=== PATIENT | female | born 1945 | race Caucasian/White ===

== ENCOUNTER 2018-02-20 11:10 | Emergency (ER) | payer MEDICARE, BC, SELFPAY ==
[2018-02-20 11:11] VITALS: BP 123/52; PULSE 72; RESP 22; TEMP 36.6; O2SAT 100; BMI 30.4
--- NOTE | 2018-02-20 11:26 | RAD_ITS ---
STUDY: X-RAY - LEFT SHOULDER REASON FOR EXAM: Female, 72 years old. pt. fell down the steps, pain TECHNIQUE: 2 view(s) of the shoulder. COMPARISON: None. FINDINGS: Normal glenohumeral articulation. There is degenerative arthrosis of the acromioclavicular joint without inferior osseous spur formation. Normal acromion. There is an acute fracture of the humeral neck and head. There is 1.9 cm of medial displacement of the shaft relative to the head and 1.0 cm of impaction of the shaft into the head. The soft tissue structures are unremarkable. Normal visualized pulmonary apex. RAD/Shoulder min 2 Views IMPRESSION: There is an acute fracture of the humeral neck and head. Electronically Signed: Rona Bowen MD at 12:20 EDT , Service support ,
[2018-02-20] MEDS: Ondansetron 4 MG/2 ML Vial IV (11:29)
[2018-02-20] MEDS: Morphine 4 MG/ML Syringe IV ×2 (11:30→13:31)
--- NOTE | 2018-02-20 11:30 | ED.DCSUM_ITS ---
- ER Visit Summary Date of Service: 02/20/18 Chief Complaint: Fall History of Present Illness: The patient is a 72 F presenting after fall. Patient states she was wearing high heels and tripped on the carpet. She fell down a half a flight of stairs. She did not hit her head or lose consciousness. She complains of left shoulder and right foot pain. She took a pain pill before arriving but she believes it was . Denies other complaints. Physical Examination: Vitals are stable. Patient is afebrile. Alert no acute distress. HEENT exam is unremarkable. Neck is nontender Lungs are clear and equal bilaterally. Heart is regular rate and rhythm. Abdomen is soft nontender nondistended. Extremities right mid foot tenderness, left anterior shoulder and proximal humerus tenderness, neurovascularly intact distally Skin is warm and dry. No focal neurologic deficit. Remainder of exam is unremarkable. Emergency Department Course and Treatment: Patient is given morphine, Zofran IV. X-ray of the right foot shows there appears to be an acute nondisplaced fracture of the base of the second metatarsal extending into the tarsometatarsal joint. Left shoulder x-ray shows there is an acute fracture of the humeral neck and head. Patient is given a sling and swath. She is given a boot orthosis. Discussed with Dr. Currie. She reviewed her images. She states the patient can weight-bear as tolerated with the boot. She will follow- up in the office. She is given a prescription for Percocet. She is advised return to ED if worsening complaints. Disposition: Discharge home Impression: Right second metatarsal fracture, left proximal humerus fracture, status post mechanical fall This note was generated with [employer] dictation software. It may contain incorrect words, spelling, and punctuation that were not noted in review of the chart prior to signing ED Disposition - Plan for ED Patient: Chief Complaint: Fall Referrals: Jessica Tanner DO [Primary Care Provider] -
--- NOTE | 2018-02-20 11:46 | RAD_ITS ---
STUDY: X-RAY - RIGHT FOOT CLINICAL: Female, 72 years old. pt. fell down the steps, pain TECHNIQUE: 3 view(s) of the foot. COMPARISON: April 18, 2015 FINDINGS: There are plantar and posterior calcaneal spurs. There is degenerative joint disease of the tibiotalar, naviculocuneiform, tarsometatarsal joints. There appears to be an acute nondisplaced fracture of the base of the second metatarsal extending into the tarsometatarsal joint. There is degenerative arthrosis of the metatarsophalangeal joint of the hallux . Normal tibial and fibular sesamoid bones. Normal interphalangeal joint of the great toe. Normal phalanges of the great toe. Normal second through fifth metatarsophalangeal joints. Normal interphalangeal joints and phalanges of the lesser toes. RAD/Foot min 3 Views IMPRESSION: There appears to be an acute nondisplaced fracture of the base of the second metatarsal extending into the tarsometatarsal joint. Electronically Signed: Rona Bowen MD at 12:18 EDT , Service support ,
[2018-02-20 13:36] VITALS: RESP 16
--- NOTE | 2018-02-20 13:58 | ED.DEP ---
ED Disposition - Plan for ED Patient: Chief Complaint: Fall Instructions: ED Mechanical Fall, ED Fx Shoulder, ED Fx Foot Prescriptions: Oxycodone HCl/Acetaminophen [Percocet 5/325] 1 tablet PO Q6H PRN PRN 5 Days #20 tablet PRN Reason: Pain Referrals: Jessica Tanner DO [Primary Care Provider] - Ginny Currie DO [STAFF PHYSICIAN] -
[2018-02-20 14:21] VITALS: BP 119/75; PULSE 72; RESP 16; O2SAT 95
--- NOTE | 2018-02-20 14:22 | ED.RN ---
REVIEWED D/C INSTRUCTIONS, FOLLOW UP CARE, PRESCRIPTION, AND S/S THAT WOULD WARRANT A RETURN TO THE ED WITH PT. PT VERBALIZED AN UNDERSTANDING AND DENIES FURTHER QUESTIONS FOR THIS RN. PT SKIN P/W/D, RESP EVEN AND UNLABORED, PT A&O X 3, NO DISTRESS NOTED. PT ASSISTED OUT OF ED IN WHEELCHAIR.
== END 2018-02-20 14:23 | disposition home or self-care (01) ==
PROVIDERS: Emergency Provider Emergency Medicine; Family Provider Internal Medicine; PCP Internal Medicine
DX: S92.324A Nondisplaced fracture of second metatarsal bone, right foot, initial encounter for closed fracture (principal); S42.202A Unspecified fracture of upper end of left humerus, initial encounter for closed fracture; W10.9XXA Fall (on) (from) unspecified stairs and steps, initial encounter; Y93.9 Activity, unspecified; Y92.9 Unspecified place or not applicable; J44.9 Chronic obstructive pulmonary disease, unspecified; K21.9 Gastro-esophageal reflux disease without esophagitis; E78.00 Pure hypercholesterolemia, unspecified; Z79.899 Other long term (current) drug therapy
CPT/HCPCS: 73030; 73630; 96374; 96375; 96376; 99285; J2405

== ENCOUNTER → 2018-02-24 13:12 | Outpatient (CLI) | payer MEDICARE, BC, SELFPAY ==
--- NOTE | 2018-02-24 13:12 | RAD_ITS ---
STUDY: X-RAY - LEFT SHOULDER REASON FOR EXAM: Fracture. TECHNIQUE: 3 view(s) of the shoulder. COMPARISON: Radiographs 02/20/2018. FINDINGS: Normal glenohumeral articulation. Normal acromioclavicular joint. Normal acromion. There is no significant change of the comminuted proximal humeral fracture with medial displacement of the humeral shaft. The soft tissue structures are unremarkable. Normal visualized pulmonary apex. RAD/Shoulder min 2 Views IMPRESSION: Comminuted proximal humeral fracture. Electronically Signed: Mario Salguero MD at 12:42 EDT Tel , Service support ,
--- NOTE | 2018-02-24 14:11 | RAD_ITS ---
STUDY: X-RAY - LEFT ELBOW REASON FOR EXAM: Female, 72 years old. Fall down stairs 4 days ago. Pain. TECHNIQUE: 3 view(s) of the elbow. COMPARISON: None. FINDINGS: There is generalized osteopenia. Normal visualized humerus, radius and ulna. Normal radiocapitellar and ulnotrochlear articulations. The soft tissue structures are unremarkable. RAD/Elbow min 3 Views IMPRESSION: Osteopenia with no acute abnormality. Electronically Signed: Reddy Branch MD at 12:41 EDT , Service support ,
== END ==
PROVIDERS: Family Provider Internal Medicine; PCP Internal Medicine; Visit Provider Orthopaedic Surgery
DX: S42.202A Unspecified fracture of upper end of left humerus, initial encounter for closed fracture (principal); M25.442 Effusion, left hand
CPT/HCPCS: 73030; 73080

== ENCOUNTER → 2018-03-02 13:27 | Outpatient (CLI) | payer MEDICARE, BC, SELFPAY ==
--- NOTE | 2018-03-02 13:30 | CT_ITS ---
STUDY: CT LEFT UPPER EXTREMITY / HUMERUS REASON FOR EXAM: Female, 72 years old. Fracture RADIATION DOSAGE (If Supplied By Facility): CTDIvol = ( 28.83 ) mGy, DLP = ( 1010.63 ) mGycm TECHNIQUE: High resolution transaxial imaging was performed without the administration of intravenous contrast material. Sagittal, coronal and three-dimensional reconstructions are performed. COMPARISON: X-ray 02/24/2018 FINDINGS: There is a comminuted, impacted fracture of the proximal humerus involving the neck and tuberosities. There is involvement of the articular surface (image 18, 20, 22, 27/132, 59, 61/127 coronal recon). There is mild displacement. There is fluid at the glenohumeral joint and the shoulder is somewhat subluxed inferiorly (image 16/132 axial, 64/127 coronal recon). There is no osseous destruction. The acromioclavicular joint is intact. The periarticular soft tissue structures are intact. CT/Coronals Sag Multi Obl 3-D Rec IMPRESSION: Impacted, comminuted, mildly displaced, intra-articular fracture of the proximal humerus involving the neck and tuberosities Electronically Signed: Kapil Gonzales MD at 21:54 EDT Tel , Service support ,
--- NOTE | 2018-03-02 13:30 | CT_ITS ---
STUDY: CT LEFT UPPER EXTREMITY / HUMERUS REASON FOR EXAM: Female, 72 years old. Fracture RADIATION DOSAGE (If Supplied By Facility): CTDIvol = ( 28.83 ) mGy, DLP = ( 1010.63 ) mGycm TECHNIQUE: High resolution transaxial imaging was performed without the administration of intravenous contrast material. Sagittal, coronal and three-dimensional reconstructions are performed. COMPARISON: X-ray 02/24/2018 FINDINGS: There is a comminuted, impacted fracture of the proximal humerus involving the neck and tuberosities. There is involvement of the articular surface (image 18, 20, 22, 27/132, 59, 61/127 coronal recon). There is mild displacement. There is fluid at the glenohumeral joint and the shoulder is somewhat subluxed inferiorly (image 16/132 axial, 64/127 coronal recon). There is no osseous destruction. The acromioclavicular joint is intact. The periarticular soft tissue structures are intact. CT/Extremity Upper without Contra IMPRESSION: Impacted, comminuted, mildly displaced, intra-articular fracture of the proximal humerus involving the neck and tuberosities Electronically Signed: Kapil Gonzales MD at 21:54 EDT Tel , Service support ,
== END ==
PROVIDERS: Family Provider Internal Medicine; PCP Internal Medicine; Visit Provider Orthopaedic Surgery
DX: S42.292A Other displaced fracture of upper end of left humerus, initial encounter for closed fracture (principal); X58.XXXA Exposure to other specified factors, initial encounter
CPT/HCPCS: 73200; 76377

== ENCOUNTER 2018-03-15 12:26 | Observation (INO) | payer MEDICARE, BC, SELFPAY ==
--- NOTE | 2018-03-04 11:01 | EKG12_ITS ---
Test Reason : PRE-OP Blood Pressure : / mmHG Vent. Rate : 081 BPM Atrial Rate : 081 BPM P-R Int : 142 ms QRS Dur : 082 ms QT Int : 344 ms P-R-T Axes : 068 038 083 degrees QTc Int : 399 ms Normal sinus rhythm Nonspecific ST and T wave abnormality Abnormal ECG Confirmed by JOSHUA BOB ([id number]), script editor REA DIAS ([id number]) on 03/08/2018 4:08:06 PM Referred By: Ginny Currie Confirmed By:JOSHUA BOB
[2018-03-04 11:37] LABS: Hematocrit 34.7 % (37-47); Mean Corp Hgb Conc 31.7 g/gl (32-36); Mean Corpuscular Hgb 28.7 pg (27.0-32.0); Mean Corpuscular Volume 90.6 fL (81-99); Mean Platelet Vol. 9.2 fl (6.2-12.0); Platelet Count 409 K/mm3 (150-450); RBC Distribution Width SD 45.3 fl (35.1-43.9); Red Blood Count 3.83 M/mm3 (4.2-5.4); Scan Indicated on CBC? Y/N NO; White Blood Count 6.8 K/mm3 (4.4-11.0)
[2018-03-09 09:21] VITALS: BP 123/99; PULSE 70; RESP 16; TEMP 36.9; O2SAT 98; BMI 30.2
[2018-03-09] MEDS: oxyCODONE HCl Cr 10 MG Tablet PO (09:32)
[2018-03-09] MEDS: Celecoxib 200 MG Capsule PO (09:32)
[2018-03-15] VITALS (10 sets, daily range): BP systolic 123–165; BP diastolic 62–99; PULSE 71–102; RESP 16–18; TEMP 36.6–36.9; O2SAT 94–98; BMI 30.2
--- NOTE | 2018-03-15 12:21 | RAD_ITS ---
STUDY: X-RAY - LEFT SHOULDER REASON FOR EXAM: Female, 72 years old. Postop. TECHNIQUE: 2 view(s) of the shoulder. COMPARISON: Left shoulder, February 24, 2018. FINDINGS: There is a left total shoulder arthroplasty. The glenoid and humeral components articulate normally with each other. There is no loosening from the underlying bone. There is no acute fracture. Small bony fragments are seen along the posterior aspect of the humeral component. There is degenerative arthrosis of the acromioclavicular joint without inferior osseous spur formation. Normal acromion. Air is seen in the surrounding soft tissues. Normal visualized pulmonary apex. RAD/Shoulder min 2 Views IMPRESSION: Status post left total shoulder arthroplasty. Electronically Signed: Brett Hedrick DO at 16:49 EDT Tel [phone], Service support ,
[2018-03-15] MEDS: oxyCODONE HCl Cr 10 MG Tablet PO (12:22)
[2018-03-15] MEDS: Cefazolin 2 GM in 0.9% Normal Saline 100 ML IV (13:20)
--- NOTE | 2018-03-15 13:45 | SHO_PTH ---
PATIENT: ELSIE BRIGGS LOC: [facility] U#:[id number] AGE/SX: 72/F ROOM: IA321 RE03/15/[address]: Dr. Ginny Currie DO : 1945 BED: 1 DIS: 03/17/2018 SPEC #: [id number] RECD: 03/16/18 10:09 STATUS: CHARLETTE REJayant #: [id number] RADHA: 03/15/18 13:[address]: Josemanuel Abreu DEPT: SURGICAL PATHOLOGY RECD BY: Otoniel Ross ENTERED: 03/16/18 10:53 SP TYPE: HUMERUS OTHR DR: DO Dr. Jessica Tuttle DO Tissues: Humerus, NOS Procedures: Decalcification bone/plaque Surgery Specimen Level IV Comments: @ Ordering doctor for DEC edited from to DR.MTODD Melton by ADDISON at 03/17/18 0845 @ Ordering doctor for SUIV edited from to @ by ADDISON at 03/17/18 0845 @ Submitting doctor edited from to @ by ADDISON at 03/17/18 45 HEADER OPERATION: Shoulder replacement PRE-OP DIAGNOSIS: Closed displaced fracture of proximal end of left humerus TISSUE SUBMITTED: Bone, left shoulder MICROSCOPIC DIAGNOSIS Bone left shoulder, total shoulder replacement: Humeral head and detached pieces of bone with focal area of hemorrhage and callous formation, clinically fracture proximal end left humerus. A piece of dense fibroconnective tissue with reactive changes. JUAN M:nicole 03/22/18 MICROSCOPIC DESCRIPTION Slides are reviewed. GROSS DESCRIPTION Received in fixative is one container labeled with the patient's name and designated bone left shoulder. The specimen consists of a humeral head measuring 5 x 4 x 2 cm. The articular surface is smooth. The resection margin is irregular and hemorrhagic. Also present in the container are multiple detached pieces of bone measuring in aggregate 4.5 x 4 x 2.5 cm. Also present in the container is a tendinous piece of soft tissue measuring 2.5 x 1 x 0.3 cm. Senior Information Security Architect sections are submitted in three cassettes as follows: 1 ? tendinous tissue, entirely submitted, 2 ? detached pieces of bone after decalcification, 3 ? humeral head after decalcification. / JUAN M:nicole 03/16/18 TC:5 [facility]: [id number], [id number]
[2018-03-15] MEDS: Ketorolac 15 MG/ML Vial IV (16:37)
[2018-03-15 17:17] LABS: Anion Gap 10 (5-15); BUN 11 mg/dL (7-18); BUN/Creat Ratio 16.4 RATIO (10-20); Chloride 106 mmol/L (98-107); Creatinine, Serum 0.67 mg/dL (0.55-1.02); EST Glomerular Filtration Rate 92 mL/min (>60); Est Glom Filt Rate - Afr Amer 111 mL/min (>60); Estimated Creatinine Clearance 43.91 ml/min; Glucose 148 mg/dL (74-106); Sodium Level 141 mmol/L (136-145)
--- NOTE | 2018-03-15 17:38 | PCM.IMDPSTOP ---
Immediate Post-Op Note Date of Procedure: 03/15/18 Primary Surgeon/Physician: Josemanuel Abreu DO night warehouse selector: Kristen Adan Pre-Operative Diagnosis: Left shoulder 4 part proximal humerus fracture Post-Operative Diagnosis: Same as above Surgery/Procedure Performed:: Left reverse total shoulder arthroplasty using the Luly reunion fracture stem Description of Surgical Findings:: See dictation Estimated Blood Loss: 100 Specimen's removed: Bone cuts Type of Anesthesia:: General ASA Class: ASA1 Normal Healthy Patient - Admit VTE Documentation VTE Present on Admission: No VTE Mechan Device Prophylaxis: SCD's, Knee High SAÚL Hose VTE Pharm Prophylaxis ordered?: Yes
--- NOTE | 2018-03-15 18:03 | OP.PCM_ITS ---
Report of Operation Date of Procedure: 03/15/18 Pre-Operative Diagnosis: Left shoulder 4 part proximal humerus fracture Post-Operative Diagnosis: Same as above Surgery/Procedure Performed:: Left reverse total shoulder arthroplasty using the Luly reunion fracture stem Description of Surgical Findings:: 72-year-old female who sustained a fall from standing height resulting in a closed 4 part proximal humerus fracture. CT examination confirmed a 4 part proximal humerus fracture with significant displacement and impaction of the humeral head and a nondisplaced coracoid fracture. The patient was originally a patient of Dr. Currie but due to issues with implants at the time of initial planning for operative intervention last week the patient was transferred to my care due to the absence of Dr. Currie. The patient was counseled and consented for a reverse total shoulder arthroplasty using fracture stem at this time. Patient was met in the holding area where her left upper extremity was marked and identified by the with surgeon. Patient was taken to the operating room in satisfactory condition with somewhat to place to identify patient operative procedure and limb. Patient received 2 g of Ancef. Please note the patient's muscle cutaneous and exiting nerve function was 5 out of 5 prior to operative intervention. Patient was simply placed in the beachchair position with all bony and soft tissue prominences protected and her head was in a fine neutral position. She was then prepped and draped in usual fashion. Patient received 2 g Ancef and 1 g of TXA. Patient had a standard deltopectoral pectoral incision made from the coracoid moving distal laterally to avoid the axillary fold. The cephalic vein was identified and protected laterally. Patient had a crossing branch that was subsequently cauterized. At that point time patient underwent a circumferential release of the bursal tissue in the subacromial and the subdeltoid regions or lower motor better mobilization of the tissues. The biceps tendon and pectoralis were identified. The biceps tendon was released proximally of roughly 1 cm to allow for better visualization. At that point time the 3 sister vessels were identified and ligated. We then gently undermined across the strap muscles again cognizant of the coracoid fracture which felt stable upon palpation and I did not feel needed to be mobilized in fixed. At that point time the bicipital sheath was longitudinally opened the biceps was released and allowed to retract distally. We then followed the remnant portion through the rotator interval proximally using standard technique. The patient was roughly 3 out weeks out from previous injury and showed some early fracture healing. We subsequently performed a osteotomy of the lesser tuberosity for better mobilization and visualization. At that point time the humeral head and articular margin was able to be mobilized after circumferential release and some mobilization of the remnant fracture fragments across the tuberosity. These fracture fragments were minimal in terms of remnant they removed in continuity. The remaining portion of the articular margin was also moved. At that point time we able to perform a 360 release of the subscapularis by releasing the SG EHL and [facility] L and IGH L. We are cognizant of the inferior aspect to protect the axillary nerve. At that point time the biceps was removed from its insertion site and excess labrum also excised in a circumferential pattern to allow for mobilization of the capsule. We then placed the 10? cephalic tilt humeral guide using standard technique. We were using the EVRGR reunion fracture system. Guidepin was placed. We then cortically reamed the glenoid using standard technique. At that point time a 28 mm reunion Hutchinson baseplate was then fixed using standard technique with multiple locking screws and a central cortical compression screw. We had excellent fixation and gentle rotation of the glenoid during tightening. At that point time we impacted a 32 mm glenoid sphere. We then turned our attention to humeral preparation. The patient had fractured significantly low just at the cortical flare of the calcar. This was preserved. The overall fracture ends were freshened using a high-speed saw. We then began our sounding of the humeral canal in anticipation of using a cemented fracture stem for fixation. Traction sutures were placed in the remnant portions of the supraspinatus and infraspinatus along with secondary sutures through the osteotomy of the lesser tuberosity. We sounded to a size 12 mm diameter. Placed a 9 mm trial in anticipation of cementing however I felt that we had too much elevation. I elected to go down to an 8 mm humeral fracture stem again using the reunion system from EVR[employer]. Initial trial was placed and 0 offset and good mechanical stability. Shoulder was then dislocated trial components removed and the canal was then prepared for cement placement. We initially brushed the humeral canal and then placed a cement restrictor and prepared our cement on the back table. Cement was then pressurized using standard technique and the 8 mm reunion stem was then held in place with 30? of retroversion using the trans-epicondylar axis for visualization. Upon cement curing we re-trialed with 0 offset had good mechanical stability and range of motion. We showed no inferior impingement or impingement across the acromion. Final Dena was impacted using standard technique. Then using multiple sutures of #2 FiberWire through the fracture stem slots we repaired the lesser tuberosity back down to the stem along with remnant portions of the supraspinatus and infraspinatus tuberosity insertions. This was done using standard technique. We reconfirm stability with no shock and no signs of impingement. Wound was copiously irrigated multiple times during the procedure to prevent any heterotopic bone formation and infection. We then reapproximated the deltoid and pectoral fascia using 0 Vicryl in a modified Krak?w technique. Skin was reapproximated with 3-0 Vicryl in a running subicular Monocryl. Dermabond application applied and the patient dressed with a Mepilex Silverlon dressing equivalent. Patient was placed into an UltraSling. Patient admitted to the floor for 24 hours of IV antibiotics appropriate IV and p.o. pain medication and DVT prophylaxis to include SCDs teds early aggressive range of motion and mobilization and 81 mg of aspirin. We had no drains or complications. Implants included the Hutchinson reunion reverse total shoulder system using a fracture stem-8 mm stem, 28 mm baseplate with a 32 mm glenoid sphere, 0 offset Dena. I was scrubbed and available all time during our procedure. If you require any further information please and is contacted. engineering program analyst: Kristen Adan Type of Anesthesia:: General Specimen's removed: Bone cuts Estimated Blood Loss (mL): 100 Grafts/Implants Used: Luly reunion reverse total shoulder arthroplasty- fracture stem - Complications None - Admit VTE Documentation VTE Present on Admission: No VTE Mechan Device Prophylaxis: SCD's, Knee High SAÚL Hose VTE Pharm Prophylaxis ordered?: Yes
[2018-03-15] MEDS: Budesonide Respules 0.5 MG/2 ML AMPUL.NEB. INHALATION (18:55)
[2018-03-15] MEDS: Morphine 4 MG/ML Syringe 2 MG IV ×2 (18:59→23:44)
[2018-03-15] MEDS: 0.9% NaCl Peripheral Flush Adult/Peds IV ×2 (19:00→23:44)
[2018-03-15] MEDS: Acetaminophen 325 MG Tablet 650 MG PO (20:05)
[2018-03-15] MEDS: oxyCODONE 5 MG Tablet 10 MG PO (20:05)
[2018-03-15] MEDS: Cefazolin 1 GM/50 ML BAG IV (22:27)
[2018-03-16] VITALS (7 sets, daily range): BP systolic 116–141; BP diastolic 53–61; PULSE 78–102; RESP 16–21; TEMP 36.9–37.2; O2SAT 93–100
[2018-03-16] MEDS: Acetaminophen 325 MG Tablet 650 MG PO ×4 (02:10→21:24)
[2018-03-16] MEDS: oxyCODONE 5 MG Tablet 10 MG PO ×4 (02:10→18:48)
[2018-03-16] MEDS: 0.9% NaCl Peripheral Flush Adult/Peds IV (05:16)
[2018-03-16] MEDS: Cefazolin 1 GM/50 ML BAG IV (05:16)
[2018-03-16 06:09] LABS: Hematocrit 27.7 % (37-47); Mean Corp Hgb Conc 32.5 g/gl (32-36); Mean Corpuscular Hgb 29.7 pg (27.0-32.0); Mean Corpuscular Volume 91.4 fL (81-99); Platelet Count 289 K/mm3 (150-450); RBC Distribution Width CV 13.4 % (11.6-14.6); RBC Distribution Width SD 43.7 fl (35.1-43.9); Red Blood Count 3.03 M/mm3 (4.2-5.4); White Blood Count 10.4 K/mm3 (4.4-11.0)
[2018-03-16 06:17] LABS: Anion Gap 6 (5-15); BUN 9 mg/dL (7-18); BUN/Creat Ratio 15.8 RATIO (10-20); Calcium,Total 8.1 mg/dL (8.5-10.1); Chloride 103 mmol/L (98-107); Creatinine, Serum 0.57 mg/dL (0.55-1.02); EST Glomerular Filtration Rate 111 mL/min (>60); Est Glom Filt Rate - Afr Amer 135 mL/min (>60); Estimated Creatinine Clearance 43.91 ml/min; Glucose 118 mg/dL (74-106); Potassium 4.4 mmol/L (3.5-5.1); Sodium Level 139 mmol/L (136-145)
[2018-03-16 06:18] LABS: Scan Indicated on CBC? Y/N NO
[2018-03-16] MEDS: Budesonide Respules 0.5 MG/2 ML AMPUL.NEB. INHALATION ×2 (07:03→19:06)
--- NOTE | 2018-03-16 07:56 | PCM.PN.ORT ---
Subjective: Postop day 1 status post reverse total shoulder arthroplasty for a comminuted four-part proximal humerus fracture. Patient with reported elbow pain and burning to the elbow at this time. Patient has not taking her arm out of the brace that she was not instructed to do so which is understandable. Otherwise repeating appears to be controlled at this time. Vital signs her heart rate into the low 100s but blood pressures within normal limits. H&H is down as expected after the operative procedure but appears to be stable. We will continue to follow. Denies any other fevers chills nausea vomiting chest pain or shortness of breath. - Physical Exam General: Alert, Oriented x3, Cooperative, No apparent distress Musculoskeletal: - - Patient remains distally neurovascular intact. Able to flex and extend the elbow and supinate the forearm. Patient was able to fire the axillary nerve into the deltoid laterally. Silverlon dressing in place. No obvious expanding hematoma. H&H reviewed. Vital signs remained stable. Radiographs show hardware otherwise well seated well-placed status post cemented reverse total shoulder arthroplasty fracture stem treatment. Vital Signs Temp Pulse Resp BP Pulse Ox 98.5 F 78 21 H 140/53 H 97 03/16/18 04:25 03/16/18 07:10 03/16/18 07:10 03/16/18 04:25 03/16/18 07:41 Oxygen Flow Rate (L/min) 2 Oxygen Delivery Method Nasal Cannula Weight: 179 lb 3.773 oz Body Mass Index (BMI) 30.2 Intake and Output for Last 24 Hours 03/14/18 03/15/18 03/16/18 23:59 23:59 23:59 Intake Total 2166 / 2166 120 / 120 Balance 2166 / 216 120 / 120 Laboratory Tests Past 24 Hrs 03/15/18 03/16/18 03/16/18 16:37 05:35 05:35 WBC 10.4 RBC 3.03 L Hgb 9.0 L Hct 27.7 L MCV 91.4 MCH 29.7 MCHC 32.5 RDW 13.4 RDW Differential 43.7 Plt Count 289 MPV 10.0 Sodium 141 139 Potassium 4.0 4.4 Chloride 106 103 Carbon Dioxide 25.0 30.0 Anion Gap 10 6 BUN 11 9 Creatinine 0.67 0.57 Estim Creat Clear Calc 43.91 43.91 Est GFR (MDRD) Af Amer 111 135 Est GFR (MDRD) Non-Af 92 111 BUN/Creatinine Ratio 16.4 15.8 Glucose 148 H 118 H Calcium 8.0 L 8.1 L Medical Necessity - Tobacco Use Smoking Status: Never smoker Assessment/Plan Assessment: After orthopedics status post left reverse total shoulder arthroplasty for a four-part comminuted proximal humerus fracture doing well. Plan: At this point time will have occupational therapy and physical therapy see the patient. She can flex and extend the elbow ad emily. Patient can start some gentle internal extra rotation of about 15? at best. Patient can start active assist forward elevation to 75-90?. No abduction external rotation is a patient had a subscapularis osteotomy repair. If the patient is stable later today I will discharge home. If the patient continues to have elbow pain I will order radiographs of the elbow although is unlikely that we damaged as there was little need for aggressive external rotation distally to gain access due to the open nature of her fracture pattern. Will follow. Any issues please contact me.
[2018-03-16] MEDS: Multivitamins,Therapeutic Tablet 1 TABLET PO (08:25)
[2018-03-16] MEDS: Aspirin 81 MG TAB.CHEW PO (08:25)
[2018-03-16] MEDS: Citalopram 20 MG Tablet PO (08:25)
[2018-03-16] MEDS: Pantoprazole Sodium 20 MG Tablet PO (08:25)
--- NOTE | 2018-03-16 13:11 | PCM.DC.ORTHO ---
Discharge Activity: Return to Normal Activity, May not drive while taking narcotic pain medications., May Shower, - - Sling 24 7 except for shower. May flex and extend elbow ad emily. 15? of internal and external rotation. Active assisted forward elevation to 75?. No active abduction external rotation at this time. May shower in (days): 1 May resume sexual activity in: 8 weeks Ice area for (Minutes): 20 Weight Bearing Status: No weight bearing Lifting Restrictions: No Lifting Call your doctor if your incision/area has: Continuous Slow Oozing, Sudden Increased Bleeding, Increased Pain/ Swelling, Increased Redness, Foul Smelling Discharge Call your doctor if you observe: Fever of 101 or Higher, Coldness, Increased Pain, Numbness or Tingling, Change in Color, Calf discomfort Suture Line Care: Avoid Pulling/Pushing, Avoid Pinching/Bending Change Dressing in (Days):: 5 Remove Dressing in (days):: 5 Cleanse incision/area with: Soap & Water Additional Dressing/Incision Instructions:: Dressing in 5 days and less irritation. Shower but do not submerge wound. Allergies/Adverse Reactions: Allergies adhesive Adverse Reaction (Verified 03/11/18 10:06) Rash latex Adverse Reaction (Verified 03/11/18 10:06) Rash Medications to take at Discharge Asmanex 2 puff IH DAILY 02/20/18 Calcium Carbonate/Vitamin D3 [Calcium 600-Vit D3 200 Tablet] 1 ea PO BID 02/20/18 Cholecalciferol (Vitamin D3) [Vitamin D3] 2,000 unit PO BID 02/20/18 Cinnamon Bark [Cinnamon] 1,000 mg PO DAILY 02/20/18 Citalopram Hydrobromide [Celexa] 20 mg PO DAILY 02/20/18 Fexofenadine HCl 180 mg PO DAILY 02/20/18 Fluticasone Propionate [Flovent Diskus] 50 mcg IH QHS 02/20/18 L.acidoph,Paracasei, B.lactis [Probiotic] 1 ea PO DAILY 02/20/18 Lovastatin [Altoprev] 20 mg PO QODAY 02/20/18 Multivitamin,Therapeutic [Thera] 1 ea PO DAILY 02/20/18 Omeprazole [Prilosec] 20 mg PO DAILY 02/20/18 Docusate Sodium [Colace] 100 mg PO BID PRN PRN #10 cap 05/09/18 Oxycodone HCl/Acetaminophen [Percocet 5/325] 1 - 2 tablet PO Q4H PRN PRN #60 tablet 03/16/18 proMETHazine tablet [Phenergan] 25 mg PO Q4H PRN PRN #10 tab 03/16/18 The following prescriptions were given: Oxycodone HCl/Acetaminophen [Percocet 5/325] 1 - 2 tablet PO Q4H PRN PRN #60 tablet PRN Reason: Pain proMETHazine tablet [Phenergan] 25 mg PO Q4H PRN PRN #10 tab PRN Reason: Nausea Docusate Sodium [Colace] 100 mg PO BID PRN PRN #10 cap PRN Reason: Constipation Primary Care Physician: Jessica Tanner DO [Primary Care Provider] - Please Follow Up With: Josemanuel Abreu DO When: CALL [facility] FOR APPT FOR 2 WEEKS Proposed Discharge Date: 03/16/18
--- NOTE | 2018-03-16 16:02 | CASEMGMT ---
RN CECILIA Face to Face with patient for initial transition planning/care coordination assessment. RN CM introduced self and role at [facility]. Patient lyingin bed, alert and oriented. Patient willing to participate in assessment and is able to answer all questions appropriately. Care providers, pharmacy, and demographics verified. Patient lives with spouse in 2 story home with railing. Patient has cane and walker at home, denies need for additional DME at this time. Patient wishes to discharge home, denies need for home health at this time. Patient states she has no further needs or concerns at this time. CM to follow for discharge planning needs that may arise. Disposition Plan: Patient to discharge home with family support and follow-up plans in place.
[2018-03-16] MEDS: oxyCODONE HCl Cr 10 MG Tablet PO ×2 (16:42→23:31)
[2018-03-17 03:30] VITALS: BP 136/58; PULSE 88; RESP 16; TEMP 37.1; O2SAT 97
[2018-03-17] MEDS: oxyCODONE 5 MG Tablet 10 MG PO ×2 (06:32→10:29)
[2018-03-17 07:23] VITALS: PULSE 85; RESP 20
[2018-03-17] MEDS: Budesonide Respules 0.5 MG/2 ML AMPUL.NEB. INHALATION (07:23)
--- NOTE | 2018-03-17 07:48 | PCM.PN.ORT ---
Subjective: Postop day 2 status post reverse total shoulder arthroplasty for four-part proximal humerus fracture. 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 twice daily yesterday and is doing very well. Patient's pain is much better controlled and she was able to sleep through the evening. Patient at this point time feels that she is capable of going home. No other reported fevers chills nausea vomiting chest pain or shortness of breath. - Physical Exam General: Alert, Oriented x3, Cooperative, No apparent distress Musculoskeletal: - - Distally neurovascular intact. No expanding hematoma. Silverlon dressing in place. Able to flex and extend elbow without difficulty. Vital signs remained stable. Vital Signs Temp Pulse Resp BP Pulse Ox 98.7 F 88 16 136/58 H 97 03/17/18 03:30 03/17/18 03:30 03/17/18 03:30 03/17/18 03:30 03/17/18 03:30 Oxygen Flow Rate (L/min) 2 Oxygen Delivery Method Room Air Weight: 179 lb 3.773 oz Body Mass Index (BMI) 30.2 Intake and Output for Last 24 Hours 03/15/18 03/16/18 03/17/18 23:59 23:59 23:59 Intake Total 2166 / 2166 120 / 120 Balance 2166 / 2166 120 / 120 Medical Necessity - Tobacco Use Smoking Status: Never smoker Assessment/Plan Assessment: After orthopedics status post left reverse total shoulder arthroplasty for a four-part comminuted proximal humerus fracture doing well. Plan: At this point time will have occupational therapy and physical therapy see the patient. She can flex and extend the elbow ad emily. Patient can start some gentle internal extra rotation of about 15? at best. Patient can start active assist forward elevation to 75-90?. No abduction external rotation is a patient had a subscapularis osteotomy repair. We will discharge patient home at this time. I will make an attempt to submit for OxyContin 10 mg p.o. twice daily as an additional home going medication. It may require precertification which I have spoken with the patient about. If I were to be denied I would add 10 mg of MS Contin. Patient's medications have been sent electronically. Patient has been instructed on shower and remove over Silverlon dressing in 5-7 days from date of operation. She may shower at this time. Patient will follow-up with me in 2 weeks. Any major issues please contact me..
--- NOTE | 2018-03-17 07:51 | PN.ORTHO_ITS ---
Subjective: Postop day 2 status post reverse total shoulder arthroplasty for four-part proximal humerus fracture. Patient had medication chart changer with addition of OxyContin 10 mg p.o. twice daily yesterday and is doing very well. Patient's pain is much better controlled and she was able to sleep through the evening. Patient at this point time feels that she is capable of going home. No other reported fevers chills nausea vomiting chest pain or shortness of breath. - Physical Exam General: Alert, Oriented x3, Cooperative, No apparent distress Musculoskeletal: - - Distally neurovascular intact. No expanding hematoma. Silverlon dressing in place. Able to flex and extend elbow without difficulty. Vital signs remained stable. Vital Signs Temp Pulse Resp BP Pulse Ox 98.7 F 88 16 136/58 H 97 03/17/18 03:30 03/17/18 03:30 03/17/18 03:30 03/17/18 03:30 03/17/18 03:30 Oxygen Flow Rate (L/min) 2 Oxygen Delivery Method Room Air Weight: 179 lb 3.773 oz Body Mass Index (BMI) 30.2 Intake and Output for Last 24 Hours 03/15/18 03/16/18 03/17/18 23:59 23:59 23:59 Intake Total 2166 / 2166 120 / 120 Balance 2166 / 2166 120 / 120 Medical Necessity - Tobacco Use Smoking Status: Never smoker Assessment/Plan Assessment: After orthopedics status post left reverse total shoulder arthroplasty for a four-part comminuted proximal humerus fracture doing well. Plan: At this point time will have occupational therapy and physical therapy see the patient. She can flex and extend the elbow ad emily. Patient can start some gentle internal extra rotation of about 15? at best. Patient can start active assist forward elevation to 75-90?. No abduction external rotation is a patient had a subscapularis osteotomy repair. We will discharge patient home at this time. I will make an attempt to submit for OxyContin 10 mg p.o. twice daily as an additional home going medication. It may require precertification which I have spoken with the patient about. If I were to be denied I would add 10 mg of MS Contin. Patient's medications have been sent electronically. Patient has been instructed on shower and remove over Silverlon dressing in 5-7 days from date of operation. She may shower at this time. Patient will follow- up with me in 2 weeks. Any major issues please contact me..
--- NOTE | 2018-03-17 07:54 | DS.PCM_ITS ---
Discharge Summary Date of Admission: 03/15/18 Date of Discharge: 03/17/18 Summary: 72-year-old female status post left reverse total shoulder arthroplasty for four -part proximal humerus fracture. Patient was admitted after operation for 24 hours of IV antibiotics appropriate IV and p.o. pain medication and DVT prophylaxis to include SCDs teds early aggressive range of motion and aspirin 81 mg p.o. twice daily. Patient tolerated regular diet required some modification to her medications but at this point time feels like she is capable of going home. Patient has been seen by physical therapy and occupational therapy and has done well. No other reported issues at this time. Assessment: [facility] status post left reverse total shoulder arthroplasty for four-part proximal humerus fracture. Doing well. Plan: Discharge patient home at this time. Will make an attempt to add 10 mg p.o. twice daily of OxyContin in addition to her Percocet order. If denied I will order MS Contin. Patient will [facility] I will send the physical therapy prescription over along with my rehab protocol. Patient may shower at this time. Do not submerge wound but showering okay. Dressing stays on for a total of 5-7 days from date of operation. There are any issues please contact me.
--- NOTE | 2018-03-17 08:08 | NURSING ---
spoke with roma in therapy, O.T. will assist pt with shower this am prior to d/c and teach safety w/showering at home
[2018-03-17 08:09] VITALS: BP 124/67; PULSE 83; RESP 18; TEMP 36.9; O2SAT 96
[2018-03-17] MEDS: oxyCODONE HCl Cr 10 MG Tablet PO (09:10)
[2018-03-17] MEDS: Citalopram 20 MG Tablet PO (09:11)
[2018-03-17] MEDS: Pantoprazole Sodium 20 MG Tablet PO (09:11)
[2018-03-17] MEDS: Aspirin 81 MG TAB.CHEW PO (09:11)
[2018-03-17] MEDS: Multivitamins,Therapeutic Tablet 1 TABLET PO (09:11)
== END 2018-03-17 10:57 | disposition home or self-care (01) ==
LOC: MS3 03-16 06:02 → ACINP 03-17 07:41
PROVIDERS: Orthopaedic Surgery; Admitting Provider Orthopaedic Surgery; Family Provider Internal Medicine; PCP Internal Medicine; Visit Provider Orthopaedic Surgery
PROC: (CPT 23472; principal; 2018-03-15 13:15)
DX: S42.292A Other displaced fracture of upper end of left humerus, initial encounter for closed fracture (principal); W19.XXXA Unspecified fall, initial encounter; Y92.9 Unspecified place or not applicable; K58.9 Irritable bowel syndrome, unspecified; Z86.718 Personal history of other venous thrombosis and embolism; E78.00 Pure hypercholesterolemia, unspecified; R73.03 Prediabetes; Z79.899 Other long term (current) drug therapy; F32.9 Major depressive disorder, single episode, unspecified
CPT/HCPCS: 01638; 23472; 36415; 73030; 80048; 85027; 88305; 88311; 93005; 94640; 96365; 96366; 96367; 96375; 96376; 97162; 97165; 97530; 97535; 99218; C1776; J7120; A4216; G0378; G0379; G8978; G8979; G8987; G8988; J2405

== ENCOUNTER → 2018-03-28 10:23 | Outpatient (CLI) | payer MEDICARE, BC, SELFPAY ==
--- NOTE | 2018-03-28 10:25 | RAD_ITS ---
STUDY: X-RAY - LEFT SHOULDER REASON FOR EXAM: Female, 72 years old. Postop. TECHNIQUE: 2 view(s) of the shoulder. COMPARISON: Right shoulder, March 15, 2018. FINDINGS: Again seen is a left total shoulder arthroplasty. The prosthetic components are intact and articulate normally with each other. There is no loosening from the underlying bone. Again seen is small bony fragments along the upper aspect of the humerus which appear unchanged from previous study. There is degenerative arthrosis of the acromioclavicular joint without inferior osseous spur formation. Normal acromion. The soft tissue structures are unremarkable. The soft tissue air seen on the prior study no longer present. Normal visualized pulmonary apex. RAD/Shoulder min 2 Views IMPRESSION: No major change when compared with study of March 15, 2018. Electronically Signed: Brett Hedrick DO at 17:02 EDT Tel [phone], Service support ,
--- NOTE | 2018-03-28 10:31 | RAD_ITS ---
STUDY: X-RAY - RIGHT FOOT CLINICAL: Female, 72 years old. Foot pain. TECHNIQUE: 2 view(s) of the foot. COMPARISON: None. FINDINGS: There is generalized osteopenia. There are enthesophytes at the insertions of the Achilles tendon and plantar aponeurosis upon an otherwise normal calcaneus. Normal talus and tarsal bones. There is mild arthrosis visualized subtalar, talonavicular, calcaneocuboid, tarsal and tarsometatarsal articulations. Normal metatarsi. There is mild degenerative arthrosis of the metatarsophalangeal joint of the hallux . Normal tibial and fibular sesamoid bones. Normal interphalangeal joint of the great toe. Normal phalanges of the great toe. Normal second through fifth metatarsophalangeal joints. Normal interphalangeal joints and phalanges of the lesser toes. The soft tissue structures are unremarkable. RAD/Foot 2 Views IMPRESSION: Osteopenia and arthrosis of the right foot without fracture or dislocation. Electronically Signed: Brett Hedrick DO at 17:03 EDT Tel [phone], Service support ,
== END ==
PROVIDERS: Family Provider Internal Medicine; PCP Internal Medicine; Visit Provider Orthopaedic Surgery
DX: S42.292A Other displaced fracture of upper end of left humerus, initial encounter for closed fracture (principal); M79.671 Pain in right foot
CPT/HCPCS: 73030; 73620

== ENCOUNTER → 2018-04-25 10:33 | Outpatient (CLI) | payer MEDICARE, BC, SELFPAY ==
--- NOTE | 2018-04-25 10:36 | RAD_ITS ---
STUDY: X-RAY - LEFT SHOULDER REASON FOR EXAM: Pain, postoperative. TECHNIQUE: 4 view(s) of the shoulder. COMPARISON: Radiographs 03/28/2018 and 03/15/2018. FINDINGS: There is a total shoulder arthroplasty without interval change. There is no substantial acromioclavicular arthrosis. Normal acromion. There are small osseous fragments at the lateral aspect of the prosthesis as on the prior study. Normal visualized pulmonary apex. RAD/Shoulder min 2 Views IMPRESSION: No interval change of left shoulder arthroplasty. Electronically Signed: Mario Salguero MD at 14:21 EDT Tel , Service support ,
== END ==
PROVIDERS: Family Provider Internal Medicine; PCP Internal Medicine; Visit Provider Orthopaedic Surgery
DX: M25.512 Pain in left shoulder (principal)
CPT/HCPCS: 73030

== ENCOUNTER → 2018-05-12 10:58 | Outpatient (CLI) | payer MEDICARE, BC, SELFPAY ==
--- NOTE | 2018-05-12 11:03 | BD_ITS ---
STUDY: DUAL ENERGY X-RAY ABSORPTIOMETRY / DXA REASON FOR EXAM: Female, 72 years old. The patient is postmenopausal. Loss of height. TECHNIQUE: Bone Mineral Density (BMD) measurements of lumbar spine and bilateral hips were obtained. COMPARISON: Comparison is made with prior study dated May 27, 2011. FINDINGS: Lumbar Spine (L1-L4): g/cm2 (1.154) / T-score (-0.2) / Z-score (1.5) Findings are suggestive of normal bone density with a low fracture risk. Left Femur Total: g/cm2 (0.812) / T-score (-1.6) / Z-score (0.0) Left Femoral Neck: g/cm2 (0.743) / T-score (-2.1) / Z-score (-0.3) Right Femur Total: g/cm2 (0.857) / T-score (-1.2) / Z-score (0.4) Right Femoral Neck: g/cm2 (0.791) / T-score (-1.8) / Z-score (0.0) The T-Scores on the most recent prior examination were: Lumbar Spine (L1-L4): There has been improvement of bone density since the previous examination. Left Femur Total: which represents a worsening of 3.7%. Right Femur Total: which represents a worsening of 5.5%. BD/Dexa Bone Density Study IMPRESSION: The patient is considered osteopenic as outlined below according to World Praveen Organization (WHO) criteria with a moderate fracture risk. There has been worsening of bone density since the previous examination. Reference Information: The T-score is the number of standard deviations above or below the standard which is normal for young adults at their peak bone mineral density. The World Health Organization (WHO) interprets the T-scores as follows: Above -1 Normal bone density Between -1 and -2.5 Osteopenia Equal to / or below -2.5 Osteoporosis As a practical clinical guideline, osteopenia may be graded as follows: Mild -1 through -1.5 Moderate -1.6 through -2.0 Severe -2.1 through -2.4 The Z-score is the number of standard deviations above or below age-matched controls. A Z-score of less than -1.5 would be considered abnormal. References: 1. NIH Osteoporosis and Related Bone Diseases http://www.osteo.org 2. International Society for Clinical Densitometry http://www.iscd.org 3. National Osteoporosis Foundation http://www.nof.org Electronically Signed: Yousif Hathaway MD at 15:14 EDT Tel [phone], Service support ,
== END ==
PROVIDERS: Family Provider Internal Medicine; PCP Internal Medicine; Visit Provider Internal Medicine
DX: Z78.0 Asymptomatic menopausal state (principal); M85.80 Other specified disorders of bone density and structure, unspecified site
CPT/HCPCS: 77080

== ENCOUNTER 2018-07-05 13:00 | Outpatient (RCR) | payer MEDICARE, BC, SELFPAY ==
--- NOTE | 2018-03-30 16:57 | HP.PTEVAL_ITS ---
Patient's Visit Information ELSIE BRIGGS is a 72 year old F referred to Physical Therapy by Josemanuel Abreu DO with a diagnosis of LEFT RTSA WITH SUBSCAP REPAIR. Date of Evaluation: 03/30/18 Physical Therapist: Violetta Lazcano - Visit Plan Frequency: 2-3x /Week Duration: 3 Months Plan: CHECK INCISION. *NO LEFT SHOULDER INTERNAL ROTATION, EXTERNAL ROTATION, ADDUCTION OR CROSS BODY MOVEMENT - SEE THE [facility] REVERSE TOTAL SHOULDER ARTHROPLASTY PROTOCOL IN FOLDER. MOIST HEAT AND COLD PACK TREATMENTS NEEDED. POSTURE CORRECTION/STRENGTHENING, INSTRUCTION IN APPROPRIATE BODY MECHANICS AND ACTIVITY MODIFICATIONS. PEACE UE ROM, STRETCHING AND STRENGTHENING. HEP INSTRUCTION. - Subjective Subjective: Diagnosis: LEFT RTSA WITH SUBSCAP REPAIR. MAR 15 2018 (2 WEEKS PO) . Work/Leisure: RETIRED. [employer]ER EVERY OTHER MONTH ONE DAY. LIKES TO DO NEEDLE WORK. 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 READING. Disability: NO. Present symptoms: LEFT SHOULDER AND UPPER ARM PAIN. LEFT FOREARM AND HAND NUMBNESS/TINGLING. Present since: FEBRUARY 20 2017. Pain Scale: Worst - 5/10 Least - 0/10. Currently: 01/15. Commenced as a result of: FELL DOWN THE STEPS AND HIT THE DOOR FRAME WITH SHOULDER FX'ING LEFT SHOULDER AND RIGHT FOOT. Symptoms at onset: LEFT SHOULDER AND RIGHT FOOT. RIGHT SHOULDER PAIN. NO NECK PAIN. Worse: CERTAIN POSITIONS. MOVING IT THE WRONG WAY. Better: SLING. ALEVE. Disturbed sleep: YES - RLS. SLEEPING IN RECLINER. TRYING BED. WAKING UP WITH RIGHT SHOULDER PAIN TOO. Previous history/Previous treatment: HISTORY OF NECK PROBLEMS TREATED BY CHIROPRACTOR OFF AND ON FOR YEARS. NO HISTORY OF LEFT SHOULDER PROBLEMS PRIOR TO THIS. Dizziness: NO. Tinnitis: NO. Nausea: NO. Difficulty Swollowing: NO. Gait: NORMAL. Accidents: FALL DOWN STEPS AND BROKE LEFT ANKLE TREATED WITH ORIF ABOUT 5 YEARS AGO. Unexplained weight loss: NO. Imaging: YES - BEFORE AND AFTER SURGERY. PMH/Recent major surgery: PEACE TKR'S 1999, 2004 PEACE MASECTOMY FOR BREAST CANCER - NO CHEMO OR RADIATION. COPD. OTHER: PATIENT IS RIGHT HAND DOMINANT. - Objective Sitting Posture/Standing Posture: POOR. Other Observations: PATIENT PREFERRED TO TAKE SLING OFF UPON ENTERING BUT REPOSITIONED HER ARM OFF AND ON THROUGHOUT SESSION FOR COMFORT. Motor/ROM deficit: RUE ROM WFL. RIGHT UE 5/5 WITH MMT'ING EXCEPT RIGHT SHOULDER 4/5 AND PAIN WITH TESTING. NO ACTIVE FLEX LEFT SHOULDER. AROM LEFT WRIST AND HAND WFL. PATIENT IS ABLE TO FULLY ACTIVELY FLEX LEFT ELBOW WITH SHOULDER IR TO ABDOMEN BUT NOT IN SITTING OR LYING WHEN MOVING SHOULDER EXTERNALLY TOWARD MIDLINE. SHE HAS FULL ACTIVE ELBOW EXTENSION WITH SHOULDER IR TOO. PROM LEFT SHOULDER FLEXION IS 65 DEG. PASSIVE LEFT SHOULDER ER TO NEUTRAL WITH ELBOW AT SIDE. PATIENTS LEFT SHOULDER TESTING IS LIMITED BY PAIN. Sensory deficit: NO. Cervical Mvmt Loss: Flex: NIL. Pro: NIL. Ext: MOD TO BHUPINDER. Ret: BHUPINDER. RSB: BHUPINDER. LSB: BHUPINDER. R Rot: MOD. L Rot: MOD. Postural strength: POOR - Goals Goal 1:: INCREASE FUNCTIONAL ROM OF LEFT UE Goal Time Frame: 8-12 Weeks Goal 2:: INCREASE FUNCTIONAL STRENGTH OF LEFT UE Goal Time Frame: 8-12 Weeks Goal 3:: DECREASE C/O LEFT SHOULDER AND UPPER ARM PAIN Goal Time Frame: 8-12 Weeks Goal 4:: INDEP HEP Goal Time Frame: 8-12 Weeks - Rehabilitation Potential Rehabilitation Potential: Good - Anticipated Interventions Patient/Client Instruction: Educate patient on: Condition, Plan of Care, Risk Factors, Benefits of Fitness Program For the Purpose of:: To improve self management Therapeutic Exercise to Include: Strength training, Body mechanics, Postural training, Flexibilty training, Passive ROM, Active ROM, Scapular Strength/ Stabilization Comment: PER PROTOCOL For the Purpose of:: To decrease pain, To increase ROM, To improve nutrient delivery to tissue, To improve muscle performance and motor function, To improve ability to perform ADL's, To improve ability of physical actions for home/community/work/leisure Cryotherapy (ice pack, ice massage): Yes Thermo therapy (hot pack): Yes For the Purpose of:: To decrease pain, To decrease swelling/inflammation, To increase ROM Thank you for the opportunity to evaluate your patient. For Medicare and Medicare HMO plans, please review the plan of care and approve it. It will need to be FAXED BACK to us at [phone] for Medicare purposes. Please let me know if there are questions or concerns regarding this plan of care. Physician Signature: Date:
--- NOTE | 2018-05-13 12:28 | HP.PTREVAL_ITS ---
Josemanuel Abreu, DO, It has been my pleasure to treat ELSIE BRIGGS over the last 18 visits for LEFT RTSA WITH SUBSCAP REPAIR. Please see the progress note below for an update on the physical therapy plan of care! Subjective: PATIENT REPORTS HER ARM IS GETTING BETTER BUT SHE DOESN'T ALWAYS HAVE TIME TO DO HER HEP. Objective/Function: LEFT SHOULDER ROM, STRENGTH AND FUNCTION IS IMPROVING SLOWLY. PROM OF LEFT SHOULDER IN SUPINE HAS IMPROVED TO 110 DEG. AROM IN SITTING 75 DEG. PATIENT CONTINUES TO HAVE POOR SHOULDER MECHANICS WITH SHOULDER HIKING WITH AROM AGAINST GRAVITY THEREFORE WE ARE CONTINUING PASSIVE AND AA REPEATIVE ROM VS AROM. Plan Plan: CONT PER PROTOCOL 3X'S A WEEK X 10 MORE VISITS. PATIENT AGREEABLE. Goals Goal 1:: INCREASE FUNCTIONAL ROM OF LEFT UE Goal Time Frame: 8-12 Weeks Goal Progress: Progressing Goal 2:: INCREASE FUNCTIONAL STRENGTH OF LEFT UE Goal Time Frame: 8-12 Weeks Goal Progress: Progressing Goal 3:: DECREASE C/O LEFT SHOULDER AND UPPER ARM PAIN Goal Time Frame: 8-12 Weeks Goal Progress: Progressing Goal 4:: INDEP HEP Goal Time Frame: 8-12 Weeks Goal Progress: Progressing Anticipated Interventions Patient/Client Instruction: Educate patient on: Condition, Plan of Care, Risk Factors, Benefits of Fitness Program For the Purpose of:: To improve self management Therapeutic Exercise to Include: Strength training, Body mechanics, Postural training, Flexibilty training, Passive ROM, Active ROM, Scapular Strength/ Stabilization Comment: PER PROTOCOL For the Purpose of:: To decrease pain, To increase ROM, To improve nutrient delivery to tissue, To improve muscle performance and motor function, To improve ability to perform ADL's, To improve ability of physical actions for home/community/work/leisure Cryotherapy (ice pack, ice massage): Yes Thermo therapy (hot pack): Yes For the Purpose of:: To decrease pain, To decrease swelling/inflammation, To increase ROM Please do not hesitate to contact me at [phone] by phone or Fax: if you have questions or concerns regarding this new plan of care! Sincerely, Violetta Lazcano
--- NOTE | 2018-06-06 12:22 | HP.PTREVAL_ITS ---
Josemanuel Abreu, DO, It has been my pleasure to treat ELSIE BRIGGS over the last 28 visits for LEFT RTSA WITH SUBSCAP REPAIR. Please see the progress note below for an update on the physical therapy plan of care! Subjective: PATIENT REPORTS THAT AT TIMES HER LEFT SHOULDER FEELS NORMAL AND THAT IS A BIG IMPROVEMENT. SHE REPORTS SHE IS DOING A LOT OF THINGS WITH NO PROBLEM. IT IS GETTING EASIER TO SLEEP AT NIGHT COMFORTABLY, REACH UP INTO THE CUPBOARD AND DO HER HAIR. SHE REPORTS THE MVMT IS COMING A LONG BUT THE STRENGTH AND STAMINA ISN'T THERE. LEFT SHOULDER PAIN AT ITS WORST IS 6/10. Objective/Function: PATIENTS LEFT UE IS CONTINUTING TO IMPROVE IN TERMS OF STRENGTH, ROM AND FUNCTION SLOWLY BUT SHE STILL HAS SIGNIFICANT POOR SHOULDER MECHANICS WITH SHOULDER HIKING WITH AROM AGAINST GRAVITY THEREFORE WE ARE CONTINUING PASSIVE AND AA REPEATIVE ROM VS AROM. IN SITTING, LEFT SHOULDER FLEX AROM HAS IMPROVED FROM 75 DEG TO 88 DEG SINCE LAST RE-CHECK AND SUPINE LEFT SHOULDER PASSIVE FLEXION HAS IMPROVED FROM 110 DEG TO 130 DEG SINCE LAST RE -CHECK. DASH SCORE HAS IMPROVED SINCE LAST RE-CHECK FROM 82 TO 68 Plan Plan: CONT PER POC INCLUDING PROM NEEDED TAPERING OFF OF THERAPY SLOWLY STARTING WITH 2 X'S A WEEK X 2 MORE WEEKS THEN DECREASING TO 1X/WEEK X 2 WEEKS ENCOURAGING HEP INCREASE AND COMPLIANCE. PATIENT IS AGREEABLE TO THIS POC KNOWING THAT IF THERE IS A NEED TO INCREASE PT AGAIN WE CAN CONSIDER THAT. Goals Goal 1:: INCREASE FUNCTIONAL ROM OF LEFT UE Goal Time Frame: 8-12 Weeks Goal Progress: Progressing Goal 2:: INCREASE FUNCTIONAL STRENGTH OF LEFT UE Goal Time Frame: 8-12 Weeks Goal Progress: Progressing Goal 3:: DECREASE C/O LEFT SHOULDER AND UPPER ARM PAIN Goal Time Frame: 8-12 Weeks Goal Progress: Progressing Goal 4:: INDEP HEP Goal Time Frame: 8-12 Weeks Goal Progress: Progressing Anticipated Interventions Patient/Client Instruction: Educate patient on: Condition, Plan of Care, Risk Factors, Benefits of Fitness Program For the Purpose of:: To improve self management Therapeutic Exercise to Include: Strength training, Body mechanics, Postural training, Flexibilty training, Passive ROM, Active ROM, Scapular Strength/ Stabilization Comment: PER PROTOCOL For the Purpose of:: To decrease pain, To increase ROM, To improve nutrient delivery to tissue, To improve muscle performance and motor function, To improve ability to perform ADL's, To improve ability of physical actions for home/community/work/leisure Cryotherapy (ice pack, ice massage): Yes Thermo therapy (hot pack): Yes For the Purpose of:: To decrease pain, To decrease swelling/inflammation, To increase ROM Please do not hesitate to contact me at [phone] by phone or Fax: if you have questions or concerns regarding this new plan of care! Sincerely, Violetta Lazcano
--- NOTE | 2018-07-05 13:48 | HP.PTDCSUM ---
HP - PT D/C Summary It has been my pleasure to treat ELSIE BRIGGS under orders from Josemanuel Abreu DO, for the diagnosis of LEFT RTSA WITH SUBSCAP REPAIR for a total of 34 visit(s). Discharge Date: Please see the following information for a summary of their discharge status. - Subjective Subjective: PATIENT REPORTS SHE WAS ABLE TO WASH HER BIG WINDOWS LAST WEEK AND SHE HAS A LOT OF THEM. PATIENT REPORTS SHE WAS ABLE TO WASH AND BLOW DRY HER HAIR NOW TOO. FOLLOW UP WITH DR. WHYTE PENDING AUG 2018 - Pain LEFT SHOULDER Pain Intensity (Out of 10): 0 - Overall Improvement % Improvement: 85 - Objective Objective/Function: PATIENTS LEFT UE IS CONTINUTING TO IMPROVE IN TERMS OF STRENGTH, ROM AND FUNCTION SLOWLY BUT SHE HAS SIGNIFICANTLY IMPROVED IN TERMS OF HER SHOULDER MECHANICS. IN SITTING, LEFT SHOULDER FLEX AROM HAS IMPROVED FROM 88 DEG TO 115 DEG SINCE LAST RE-CHECK AND SUPINE LEFT SHOULDER PASSIVE FLEXION HAS IMPROVED FROM 130 DEG TO 146 DEG SINCE LAST RE-CHECK. SEATED SCAPTION = 95 DEG AND SUPINE 125. SUPINE IR/ER WITH 90 DEG OF ABD = 40/45 DEG. SHE HAS GOOD ELBOW FLEX/EXT STRENGTH AND LEFT [employer] STRENGTH = 45 LBS COMPARED TO 55LBS ON HER DOMINANT HAND (R). LEFT SHOULDER FLEX STRENGTH IS 3-/5, SCAPTION 2+/5, IR 3-/5, ER 2-/5. OVER-ALL AT ALMOST 12 WEEKS POST OP SHE HAS EXCEEDED MY EXPECTATIONS. DASH SCORE HAS IMPROVED SINCE LAST RE-CHECK FROM 68 TO 40. PATIENT COMMUNICATES A GOOD UNDERSTANDING OF PROTOCOL FOR 12+ WEEKS POST OP (PHASE 6). - Goals Goal 1:: INCREASE FUNCTIONAL ROM OF LEFT UE Goal Progress: Goal Met Goal 2:: INCREASE FUNCTIONAL STRENGTH OF LEFT UE Goal Progress: Goal Met Goal 3:: DECREASE C/O LEFT SHOULDER AND UPPER ARM PAIN Goal Progress: Goal Met Goal 4:: INDEP HEP Goal Progress: Goal Met - Plan Plan: D/C TO INDEP HEP. PATIENT IS AGREEABLE. - D/C Information If there are questions or concerns regarding this patient's physical therapy, please feel free to call me at [phone]. Thank you for the referral of this patient. Sincerely, Violetta Lazcano
== END 2018-07-05 18:00 | disposition home or self-care (01) ==
LOC: PT 13:00
PROVIDERS: Family Provider Internal Medicine; PCP Internal Medicine; Referring Provider Orthopaedic Surgery; Visit Provider Orthopaedic Surgery
DX: Z96.612 Presence of left artificial shoulder joint (principal)
CPT/HCPCS: 97110; 97140; 97162; 97164; 97530; G8978; G8979

== ENCOUNTER → 2018-07-12 14:40 | Outpatient (CLI) | payer MEDICARE, BC, SELFPAY | PROVIDERS: Family Provider Internal Medicine; PCP Internal Medicine; Visit Provider Orthopaedic Surgery | DX: M79.671 Pain in right foot (principal) | CPT/HCPCS: 73630 ==

== ENCOUNTER 2018-10-29 11:35 | Emergency (ER) | payer MEDICARE, BC, SELFPAY ==
[2018-10-29 11:37] VITALS: BP 161/80; PULSE 83; RESP 22; TEMP 36.6; O2SAT 97; BMI 31.4
[2018-10-29 12:53] VITALS: PULSE 80; RESP 18
[2018-10-29] MEDS: Ipratropium/Albuterol Sulfate 3 ML AMPUL.NEB INHALATION (12:53)
--- NOTE | 2018-10-29 13:25 | RAD_ITS ---
STUDY: X-RAY CHEST REASON FOR EXAM: Female, 73 years old. Cough. TECHNIQUE: PA and lateral views of the chest. COMPARISON: 02/22/2017. FINDINGS: The lungs are somewhat hyperinflated. No focal infiltrate is seen. There is no demonstrated pleural abnormality. Normal size heart. Normal mediastinum and ester. Normal visualized pulmonary arteries. Normal visualized aortic arch and descending thoracic aorta. There are degenerative changes of the visualized thoracic spine. Right shoulder prosthesis is again seen. There is no demonstrated abnormality of the visualized soft tissue structures of the upper abdomen. RAD/Chest PA and Lateral IMPRESSION: No active pulmonary disease. Electronically Signed: Jay Jones MD at 15:25 EST Tel , Service support ,
--- NOTE | 2018-10-29 15:09 | ED.VISSUMM ---
- ER Visit Summary Date of Service: 10/29/18 Chief Complaint: [Cough] History of Present Illness: The patient is a 73 F [presents to the emergency department with cough that started yesterday. Patient states the cough is nonproductive. Patient denies any fever. She does have a history of asthma and she felt like she was wheezing this morning. Patient denies any chest pain. Denies any sick contacts.] Physical Examination: [HEENT-PERRLA, EOMI. Cranial nerves II through XII grossly intact. TMs clear. Mucous membranes moist. No adenopathy. Cardiovascular-regular rate and rhythm without murmur or ectopy Lungs-decreased breath sounds bilaterally with some pain X Tory wheezes noted. No accessory muscle use or retractions. Abdomen-normoactive bowel sounds, soft, nontender, no rebound or rigidity, no peritoneal signs. Extremities-intact ?4, normal range of motion, normal pulses, atraumatic] Test Results: [Influenza screen was negative. Chest x-ray obtained read by myself as no acute infiltrates however official from radiology is pending.] Emergency Department Course and Treatment: Patient was given a DuoNeb aerosol she did feel improved after treatment. Patient was given a dose of prednisone.] Treatment Plan: [Patient will be written a prescription for albuterol MDI as well as albuterol solution for nebulizer and a prescription for prednisone. Patient advised to follow-up with primary care physician within next 5-7 days.] Disposition: [Discharged home in stable condition. Patient advised to return if increasing shortness of breath or condition should worsen anyway.] Impression: [Asthmatic bronchitis] This note was generated with [facility] dictation software. It may contain incorrect words, spelling, and punctuation that were not noted in review of the chart prior to signing ED Disposition - Plan for ED Patient: Chief Complaint: Cough Referrals: Jessica Tanner DO [Primary Care Provider] -
--- NOTE | 2018-10-29 15:11 | ED.DEP ---
ED Disposition - Plan for ED Patient: Chief Complaint: Cough Instructions: ED Bronchitis Asthmatic Prescriptions: Albuterol Aerosols [Ventolin Aerosols] 2.5 mg INHALATION Q4H PRN #25 vial Albuterol Inhaler [Ventolin Hfa] 1 - 2 puff INHALATION Q4H PRN PRN #1 inhaler PRN Reason: Wheezing Prednisone [Deltasone] 20 mg PO BID #10 tab Referrals: Jessica Tanner DO [Primary Care Provider] - 5-7 Days
[2018-10-29] MEDS: predniSONE 20 MG Tablet 40 MG PO (15:19)
[2018-10-29 15:21] VITALS: BP 133/72; PULSE 64; RESP 15; O2SAT 97
== END 2018-10-29 15:22 | disposition home or self-care (01) ==
LOC: ED 12:59
PROVIDERS: Emergency Provider Emergency Medicine; Family Provider Internal Medicine; PCP Internal Medicine
DX: J45.909 Unspecified asthma, uncomplicated (principal); J44.9 Chronic obstructive pulmonary disease, unspecified; Z86.718 Personal history of other venous thrombosis and embolism; Z86.711 Personal history of pulmonary embolism; Z79.899 Other long term (current) drug therapy
CPT/HCPCS: 71046; 87804; 94640; 99283

== ENCOUNTER → 2018-11-02 16:22 | Outpatient (CLI) | payer MEDICARE, BC, SELFPAY ==
[2018-10-29 11:37] VITALS: BMI 31.4
== END ==
PROVIDERS: Family Provider Internal Medicine; PCP Internal Medicine; Referring Provider Nurse Practitioner; Visit Provider Nurse Practitioner
DX: J06.9 Acute upper respiratory infection, unspecified (principal)
CPT/HCPCS: 87807

== ENCOUNTER → 2018-11-25 12:17 | Outpatient (CLI) | payer MEDICARE, BC, SELFPAY ==
[2018-10-29 11:37] VITALS: BMI 31.4
--- NOTE | 2018-11-25 12:26 | RAD_ITS ---
STUDY: X-RAY CHEST REASON FOR EXAM: Female, 73 years old. Cough. COPD and asthma. TECHNIQUE: PA and lateral views of the chest. COMPARISON: Comparison is made with prior study dated October 29, 2018. FINDINGS: Hyperinflation. Scattered calcified granulomas. There is no demonstrated pleural abnormality. Normal size heart. Normal mediastinum and ester. Normal visualized pulmonary arteries. Normal visualized aortic arch and descending thoracic aorta. There are diffuse degenerative changes of the visualized thoracic spine. Left shoulder replacement. There is no demonstrated abnormality of the visualized soft tissue structures of the upper abdomen. RAD/Chest PA and Lateral IMPRESSION: Hyperinflation. The lungs are clear. Electronically Signed: Yousif Hathaway MD at 12:50 EST Tel [phone], Service support ,
--- OUTSIDE RECORDS SUMMARY | 2019-01-30 01:43 | XMS RPT_ITS | Continuity of Care Document ---
:1945 Author Organization [facility] Address [facility] [address] [place] [address] Phone Care Team Providers Name Role Phone CiroDionne rodriguez DOhleen Unavailable Josemanuel Camarena DO Unavailable Ken Larkin Unavailable Dr. Zander López Unavailable Jhon Clemencia Unavailable Alex Clement Unavailable Kayt Gonzalez Unavailable Unavailable Kristy Hinton Unavailable Unavailable INÉS Roblero Unavailable Unavailable Rosemarie Osorio Unavailable Unavailable Toy KLINE Soniya Unavailable Calendar Control Clerk Blood Bank, System Unavailable Unavailable Long [employer] OFFICERCarla L Unavailable Unavailable Unavailable Unavailable Problems Name Dates Details Abnormal glucose tolerance test (R73.09, 790.22) Comments: diet andex Status: Active Abnormal liver ultrasound (R93.2, 793.3) Status: Active Acute bronchitis due to other specified organisms (J20.8, 466.0) Status: Active Acute embolism and thrombosis of unspecified deep veins of unspecified lower extremity (I82.409, 453.40) Comments: DVT and [id number]?? 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 Annual Medicare Phyiscal WITHOUT abnormal findings (Renamed from Encounter for general adult medical examination without abnormal findings) (Z00.00, V70.9) Status: Active Asthma (J45.909, 493.90) Comments: managed by [facility] Status: Active Asthma with acute exacerbation (J45.901, 493.92) Status: Active Asthma, intrinsic, with status asthmaticus (J45.902, 493.11) Status: Active BMI 30.0-30.9,adult (Z68.30, V85.30) Status: Active BMI 30.0-30.9,adult (Z68.30, V85.30) Status: Active BMI 31.0-31.9,adult (Z68.31, V85.31) Status: Active BMI 31.0-31.9,adult (Z68.31, V85.31) Status: Active BMI 32.0-32.9,adult (Z68.32, V85.32) Status: Active Breast cancer (C50.919, 174.9) Comments: In 1999, CIS, bilateral mastectomy, no LN involved, no radiation, no chemotherapyTook pill for several year, tamoxifenReconstructive surgery Status: Active Chronic left shoulder pain (M25.512, 719.41) Status: Active Chronic obstructive asthma with acute exacerbation (Renamed from Chronic obstructive asthma with exacerbation) (J44.1, 493.22) Comments: sees Sabilia changed from 2 puffs to one per day Status: Active Colonoscopy Comments: 03-05-09 NEG Status: Active Cough (R05, 786.2) Status: Active Cough (R05, 786.2) Comments: on flovent -- will sample -- if symbicort 80/4.5 2puffs twice a day -takes away the cough but resumes when she goes back to [facility] -- will need to chg her maintenance med--- pnd? mold expos? triggerin g cough variant asthma flare?? feels well in every other way Status: Active Deliveries (Parity) Comments: 2 Status: Active Depression (F32.9, 311) Status: Active Diverticulitis (K57.92, 562.11) Status: Active Dry mouth (R68.2, 527.7) Comments: pt will do gum chewing and biotene mouth rinses-- i am thionking post anestheti related Status: Active Dysuria (Renamed from Difficult or painful urination) (R30.0, 788.1) Status: Active Elevated AFP (R77.2, 790.99) Status: Active elevated alpha feto protein Status: Active Elevated blood pressure (not hypertension) (R03.0, 796.2) Status: Active Encounter for immunization (Z23, V03.89) Status: Active Encounter for screening for malignant neoplasm of colon (Renamed from Special screening for malignant neoplasms, colon) (Z12.11, V76.51) Status: Active Encounter for screening mammogram for breast cancer (Renamed from Encounter for screening mammogram for malignant neoplasm of breast) (Z12.31, V76.12) Comments: pt doesnt do Status: Active Family history of diabetes mellitus (Z83.3, V18.0) Status: Active Family history of other cardiovascular diseases (Z82.49, V17.4) Status: Active FRACTURE OF TIBIA AND FIBULA, TORUS, TIBIA ALONE (823.40) Comments: chronic stable- continue present regimenleft fibula fracture from fall in [place] May 22 2011Lateroal malleolus fracture Status: Active Gastric reflux syndrome (K21.9, 530.81) Status: Active History of Clostridium difficile colitis (Z86.19, V12.79) Status: Active History of Clostridium difficile infection (Z86.19, V12.09) Status: Active Irritable bowel syndrome (Renamed from Functional bowel disease) (K58.9, 564.1) Comments: stableCT scan:Constipation (05/23)3 times a night diarhea, once in a while.Abdominal cramps.Other dumont rabbit pellets., sometime Status: Active Need for prophylactic vaccination and inoculation against influenza (Z23, V04.81) Status: Active Need for prophylactic vaccination and inoculation against influenza (Z23, V04.81) Status: Active Need for prophylactic vaccination and inoculation against influenza (Renamed from Need for immunization against influenza) (Z23, V04.81) Status: Active Need for prophylactic vaccination and inoculation against influenza (Renamed from Need for immunization against influenza) (Z23, V04.81) Status: Active Nephrolithiasis, uric acid (N20.9, 274.11) Comments: doing better Status: Active Nonsmoker (Z78.9, V49.89) Status: Active Nonsmoker (Z78.9, V49.89) Status: Active Nutritional counseling (Z71.3, V65.3) Status: Active Obstructive sleep apnea, adult (G47.33, 327.23) Comments: On CPAP Sibilia Apr 02 2016Next OV 09/23 Status: Active Osteopenia (M85.80, 733.90) Status: Active Other and unspecified disorders of circulatory system (I99.9, 459.9) Status: Active Other chronic nonalcoholic liver disease (K76.89, 571.8) Status: Active Other hyperlipidemia (E78.49, 272.4) Comments: can take every other day because of muscle aches Status: Active possible ruptured saline implant Status: Active Postmenopausal (Renamed from Postmenopausal status) (Z78.0, V49.81) Status: Active Pregnancies () Comments: 2 Status: Active Prophylactic vaccination against Streptococcus pneumoniae (Z23, V03.82) Status: Active Rib pain (Renamed from Pain in rib) (R07.81, 786.50) Comments: see hpi -- strain vs stone shifting Status: Active RLS (restless legs syndrome) (G25.81, 333.94) Comments: post anesthetic related? Status: Active Scoliosis (M41.9, 737.30) Status: Active Skin lesion (L98.9, 709.9) Status: Active Unspecified Diagnosis Status: Active Upper respiratory infection (Renamed from Infection of the upper respiratory tract) (J06.9, 465.9) Comments: flu neg at hospital, Status: Active Medications Name Dates Details CALCIUM 600 + D, 040-010PH-WSST (Oral Tablet) 1 BID for 0 days Refills: 0 Ordered:14-Oct-2009 Xuan Ridley CINNAMON, 500MG (Oral Capsule) 2 caps qd for 0 days Refills: 0 Ordered:14-Oct-2009 Xuan Ridley Citalopram Hydrobromide 20 MG Oral Tablet 1 (one) Tablet daily for 90 days Quantity: 90 {Tablet} Refills: 3 Ordered:14-Apr-2018 Jason Tanner DO, DO, Kathleen Start : 14-Apr-2018 Active Flovent HFA 110 MCG/ACT Inhalation Aerosol 2 (two) puffs q am for 0 days Quantity: 1 {Inhaler} Refills: 0 Ordered:31-Dec-2016 Jason Tanner DO, DO, Kathleen Start : 31-Dec-2016 Active KlonoPIN 0.5 MG Oral Tablet 1 (one) Tablet Tablet qhs prn for 0 days Quantity: 30 {Tablet} Refills: 0 Ordered:01-Apr-2018 Rosemarie Osorio Start : 01-Apr-2018 Active Comments:th[age] dx RLS Lovastatin 20 MG Oral Tablet 1 (one) Tablet qd for 90 days Quantity: 90 {Tablet} Refills: 3 Ordered:13-Jul-2018 Jason Tanner DO, DO, Kathleen Start : 13-Jul-2018 Active MULTIVITAMIN (PO Tab) 1 (one) daily Active Omeprazole 20 MG Oral Capsule Delayed Release 1 (one) Capsule DR bid for 0 days Quantity: 180 {Capsule} Refills: 3 Ordered:08-Apr-2017 Jason Tanner DO, DO, Kathleen Start : 08-Apr-2017 Active Omeprazole 20 MG Oral Capsule Delayed Release 1 (one) Capsule DR bid for 90 days Quantity: 180 {Capsule} Refills: 3 Ordered:08-Apr-2017 Jason Tanner DO, DO, Kathleen Start : 08-Apr-2017 Active PredniSONE 10 MG Oral Tablet 1 (one) Tablet 2bid x 3 days, 1 bid x 3 days, 1 daily x 3 days for 0 days Quantity: 20 {Tablet} Refills: 0 Ordered:25-Nov-2018 Nell Yeager CNP Start : 25-Nov-2018 Active Comments:with food- in am PROBIOTIC (Oral Capsule) 1 cap daily Active Tessalon Perles 100 MG Oral Capsule 1 (one) Capsule tid prn cough for 0 days Quantity: 30 {Capsule} Refills: 0 Ordered:02-Nov-2018 Nell Yeager CNP Start : 02-Nov-2018 Active VITAMIN D3, 2000UNIT (Oral Capsule) 1 (one) Capsule bid for 0 days Quantity: 60 {Capsule} Refills: 0 Ordered:03-Apr-2010 Clemencia Ferreira DO Start : 03-Apr-2010 Active ADVAIR DISKUS, 500-50MCG/DOSE (Inhalation Aerosol Powder Breath Activated) 1 puff bid (500-50 MCG/DOSE) Inactive ADVAIR DISKUS, 500-50MCG/DOSE (Inhalation Aerosol Powder Breath Activated) 1 puff Misc bid for 0 days Quantity: 3 {Misc} Refills: 3 Ordered:21-Nov-2013 IsmaelKristy mccord Start : 20-Dec-2012 End : 21-Nov-2013 Inactive Comments:VINITA Albuterol Sulfate (2.5 MG/3ML) 0.083% Inhalation Nebulization Solution 1 (one) Nebulized Soln Nebulized Soln Q4-6 hours PRN for 0 days Quantity: 2 {Box} Refills: 0 Ordered:24-May-2018 SlaAna M mccrary LPN Start : 31-Dec-2016 End : 24-May-2018 Inactive ALBUTEROL SULFATE, (2.5 MG/3ML)0.083% (Inhalation Nebulization Solution) 1 Nebulized Soln q 4- 6 hours prn for 0 days Quantity: 1 {Box(s)} Refills: 3 Ordered:11-Jan-2013 Debbi Griggs Start : 16-Nov-2012 End : 11-Jan-2013 Inactive PAPA-D 24 HOUR, 180-240MG (Oral Tablet Extended Release 24 Hour) 1 for 0 days Refills: 0 Ordered:30-Jan-2009 KRISHNA Ridley Start : 30-Jan-2009 End : 14-Oct-2009 Inactive Amoxicillin-Pot Clavulanate 875-125 MG Oral Tablet 1 (one) Tablet q12hr for 14 days Quantity: 28 {Tablet} Refills: 0 Ordered:29-Oct-2017 Toy KLINE Soniya Start : 29-Oct-2017 End : 12-Nov-2017 Inactive Asmanex 120 Metered Doses 220 MCG/INH Inhalation Aerosol Powder Breath Activated 2 puffs daily for 0 days Refills: 0 Ordered:10-Dec-2016 Long Carla CONTE Start : 28-Oct-2016 End : 10-Dec-2016 Inactive Augmentin 875-125 MG Oral Tablet 1 Tablet bid for 10 days Quantity: 20 {Tablet} Refills: 0 Ordered:09-Jul-2017 Jason Tanner DO, DO, Kathleen Start : 09-Jul-2017 End : 19-Jul-2017 Inactive AVELOX, 400MG (Oral Tablet) 1 (one) Tablet Daily for 0 days Quantity: 10 {Tablet} Refills: 0 Ordered:30-Jul-2008 Clemencia Ferreira DO Start : 30-Jul-2008 End : 18-Dec-2008 Inactive BACTRIM DS, 800-160MG (Oral Tablet) 1 Tablet bid for 7 days Quantity: 14 {Tablet} Refills: 0 Ordered:24-Jun-2011 Nell Yeager CNP Start : 24-Jun-2011 End : 01-Jul-2011 Inactive BIAXIN XL PAC, 500MG (Oral Tablet Extended Release 24 Hour) 1 Tablet ER 24HR bid for 14 days Quantity: 28 {Tablet_ER_24HR} Refills: 0 Ordered:10-Nov-2010 Nell Yeager CNP Start : 10-Nov-2010 End : 24-Nov-2010 Inactive BIAXIN XL PAC, 500MG (Oral Tablet Extended Release 24 Hour) 1 Tablet ER 24HR bid for 14 days Quantity: 28 {Tablet_ER_24HR} Refills: 0 Ordered:06-Aug-2010 Nell Yeager CNP Start : 06-Aug-2010 End : 20-Aug-2010 Inactive BIAXIN XL, 500MG (Oral Tablet Extended Release 24 Hour) 2 (two) Tablet ER 24HR daily for 0 days Quantity: 20 {Tablet_ER_24HR} Refills: 0 Ordered:20-Apr-2012 Brooke Conklin Start : 16-Mar-2012 End : 20-Apr-2012 Inactive Bromfed DM 30-2-10 MG/5ML Oral Syrup 10 Milliliter Milliliter q4hr prn cough for 0 days Quantity: 120 {Milliliter} Refills: 0 Ordered:10-Dec-2016 Long [employer], Carla L Start : 28-Oct-2016 End : 10-Dec-2016 Inactive Comments:max 40ml/day CIPRO, 500 MG/5ML(10%) (Oral Suspension Reconstituted) 1 For Suspension daily for 7 days Quantity: 14 {For_Suspension} Refills: 0 Ordered:07-Sep-2012 Nell Yeager CNP Start : 07-Sep-2012 End : 14-Sep-2012 Inactive Clotrimazole 10 MG Mouth/Throat Pranay 1 (one) Pranay 5x daily for 10 days Quantity: 50 {Pranay} Refills: 0 Ordered:28-Oct-2016 Nell Yeager CNP Start : 28-Oct-2016 End : 07-Nov-2016 Inactive DELSYM, 30MG/5ML (Oral Liquid Extended Release) 1 Liquid ER bid for 0 days Quantity: 1 {Ounce(s)} Refills: 0 Ordered:30-Jan-2011 Brooke Conklin Start : 10-Nov-2010 End : 30-Jan-2011 Inactive FERROUS SULFATE, 324MG (Oral Tablet Delayed Release) 1 BID for 0 days Refills: 0 Ordered:09-May-2007 Brooke Conklin End : 09-May-2007 Inactive Flagyl 500 MG Oral Tablet 1 Tablet bid for 14 days Quantity: 28 {Tablet} Refills: 0 Ordered:29-Oct-2017 Nell Yeager CNP Start : 29-Oct-2017 End : 12-Nov-2017 Inactive Comments:no etoh HYCODAN, 5-1.5MG/5ML (Oral Syrup) 1-2 Syrup QHS / HS for 0 days Quantity: 60 {Syrup} Refills: 0 Ordered:13-Feb-2008 Brooke Conklin Start : 13-Feb-2008 End : 06-Mar-2008 Inactive Levaquin 500 MG Oral Tablet 1 Tablet daily for 10 days Quantity: 10 {Tablet} Refills: 0 Ordered:15-Oct-2016 Jason Tanner DO, DO, Kathleen Start : 15-Oct-2016 End : 25-Oct-2016 Inactive LEVAQUIN, 500MG (Oral Tablet) 1 Tablet daily for 10 days Quantity: 10 {Tablet} Refills: 0 Ordered:27-Nov-2011 Jason Tanner DO, DO, Kathleen Start : 27-Nov-2011 End : 07-Dec-2011 Inactive LEVSIN/SL, 0.125MG (Sublingual Tablet Sublingual) 1 (one) Tab Sublingual tid prn for 0 days Quantity: 60 {Tab_Sublingual} Refills: 3 Ordered:09-Nov-2012 Elissa Wallace LPN Start : 07-Oct-2010 End : 09-Nov-2012 Inactive NASACORT AQ, 55MCG/ACT (Nasal Aerosol Solution) 2 (two) Aerosol Soln 1-2 squirts in each nostril daily for 0 days Quantity: 1 {Aerosol_Soln} Refills: 0 Ordered:22-May-2010 Chelsea Alves Start : 30-Jan-2009 Inactive NASONEX, 50MCG/ACT (Nasal Suspension) 1 (one) Suspension daily for 5 days Refills: 0 Ordered:30-Jun-2010 Kayygaudencio RAISANell Start : 22-May-2010 End : 27-May-2010 Inactive PAXIL CR, 37.5MG (Oral Tablet Extended Release 24 Hour) 1 Tablet ER 24HR QD for 0 days Quantity: 90 {Tablet} Refills: 3 Ordered:02-Jan-2014 Gloria Munguia MD Start : 02-Jan-2014 End : 02-Jan-2014 Inactive Comments:changed to citalopram PredniSONE 20 MG Oral Tablet 2 (two) Tablet daily for 3 days Quantity: 6 {Tablet} Refills: 0 Ordered:22-Feb-2017 Tamia Wood Start : 22-Feb-2017 End : 25-Feb-2017 Inactive PROAIR HFA, 108 (90 Base)MCG/ACT (Inhalation Aerosol Solution) 2 puffs Aerosol Soln qid, prn for 0 days Quantity: 1 {Aerosol_Soln} Refills: 3 Ordered:20-Apr-2012 Brooke Conklin Start : 11-Nov-2009 End : 20-Apr-2012 Inactive SINGULAIR, 10MG (Oral Tablet) 1 (one) Tablet qhs for 0 days Quantity: 30 {Tablet} Refills: 3 Ordered:10-Nov-2010 Elissa Wallace LPN Start : 03-Apr-2010 End : 10-Nov-2010 Inactive TOPICORT LP, 0.05% (External Cream) Cream apply bid for 0 days Quantity: 1 {Cream} Refills: 0 Ordered:03-Apr-2010 Brooke Conklin Start : 14-Oct-2009 Inactive TOPICORT, 0.25% (External Cream) 1 Cream bid for 0 days Quantity: 90 {Cream} Refills: 0 Ordered:22-May-2010 Chelsea Alves Start : 03-Apr-2010 Inactive Tylenol with Codeine #3 300-30 MG Oral Tablet 1 (one) Tablet as needed for 0 days Quantity: 30 {Tablet} Refills: 0 Ordered:11-Mar-2017 Tamia Roblero LPN Start : 22-Feb-2017 End : 11-Mar-2017 Inactive Comments:Medication taken as needed. VANCOMYCIN HCL, 125MG (Oral Capsule) 1 Capsule qid for 0 days Quantity: 40 {Capsule} Refills: 0 Ordered:11-Jan-2013 Debbi Griggs Start : 20-Dec-2012 End : 11-Jan-2013 Inactive ADVAIR DISKUS, 100-50MCG/DOSE (Inhalation Miscellaneous) 1 BID for 0 days Refills: 0 Ordered:23-Sep-2006 Edda Blakely LPN End : 23-Sep-2006 Discontinued ADVAIR DISKUS, 250-50MCG/DOSE (Inhalation Miscellaneous) 1 (one) Misc Twice daily for 0 days Quantity: 3 {Misc} Refills: 3 Ordered:22-Sep-2006 Edda Blakely LPN Start : 22-Sep-2006 End : 23-Sep-2006 Discontinued ALBUTEROL SULFATE HFA, 108 (90 Base)MCG/ACT (Inhalation Aerosol Solution) 2 (two) Aerosol Soln QID PRN for 0 days Quantity: 1 {Aerosol_Soln} Refills: 3 Ordered:09-Aug-2007 Brooke Conklin Start : 09-Aug-2007 End : 03-Apr-2010 Discontinued Comments:This order discontinued per [employer]. ALBUTEROL SULFATE HFA, 108MCG/ACT (Inhalation Aerosol Soln) 2 puffs qid, prn for 0 days Refills: 0 Ordered:03-Apr-2010 Brooke Conklin End : 03-Apr-2010 Discontinued Comments:This order discontinued per [facility]. PAPA, 180MG (Oral Tablet) 1 Tablet QD for 0 days Quantity: 90 {Tablet} Refills: 3 Ordered:07-Jul-2010 Elissa Wallace LPN Start : 07-Jul-2010 End : 16-Nov-2011 Discontinued Comments:This order discontinued per [facility]. ASMANEX HFA, 200MCG/ACT (Inhalation Aerosol) 2 puffs daily (200 MCG/ACT) End : 09-Aug-2015 Discontinued CEFDINIR, 300MG (Oral Capsule) 1 (one) Capsule bid for 0 days Quantity: 20 {Capsule} Refills: 0 Ordered:09-Aug-2015 Brooke Conklin Start : 05-Jun-2015 End : 09-Aug-2015 Discontinued CHERATUSSIN AC, 100-10MG/5ML (Oral Solution) 1 (one) Teaspoon qhs prn for 0 days Quantity: 6 {Ounce} Refills: 0 Ordered:07-Dec-2014 Brooke Conklin Start : 05-Nov-2014 End : 07-Dec-2014 Discontinued DIFLUCAN, 150MG (Oral Tablet) 1 Tablet qd for 0 days Quantity: 10 {Tablet} Refills: 0 Ordered:19-Jul-2013 Clemencia Ferreira DO Start : 19-Jul-2013 End : 19-Jul-2013 Discontinued DULERA, 200-5MCG/ACT (Inhalation Aerosol) 2 puffs daily (200-5 MCG/ACT) End : 05-May-2016 Discontinued Comments:Dr. Clement EFUDEX, 5% (External Cream) apply to affected area Cream qd for 21 days Quantity: 30 {grams} Refills: 1 Ordered:29-Jan-2012 Brooke Conklin Start : 29-Jan-2012 End : 29-Jan-2012 Discontinued Comments:wear spf, keep out of sun FEXOFENADINE HCL, 180MG (Oral Tablet) 1 (one) Tablet qd for 90 days Quantity: 90 {Tablet} Refills: 3 Ordered:25-Feb-2015 Elissa Wallace LPN Start : 01-Mar-2013 End : 25-Feb-2015 Discontinued FLONASE, 50MCG/ACT (Nasal Suspension) 2 (two) Puff Puff daily for 0 days Quantity: 1 {Bottle} Refills: 0 Ordered:05-Apr-2015 Brooke Conklin Start : 13-Aug-2014 End : 05-Apr-2015 Discontinued FLUTICASONE PROPIONATE, 50MCG/ACT (Nasal Suspension) qhs (50 MCG/ACT) End : 09-Aug-2015 Discontinued Comments:Dr. Urbano LAURASIN AC, 100-10MG/5ML (Oral Syrup) 1 Syrup 1tsp qhs for 0 days Quantity: 6 {Ounce(s)} Refills: 0 Ordered:06-Aug-2010 Elissa Wallace LPN Start : 06-Aug-2010 End : 10-Nov-2010 Discontinued Comments:This order discontinued per [employer]. HAROLDOAIATUSSIN AC, 100-10MG/5ML (Oral Syrup) 1 Syrup QID/PRN for 0 days Quantity: 6 {Ounce(s)} Refills: 0 Ordered:28-Jan-2007 Brooke Conklin Start : 28-Jan-2007 End : 09-May-2007 Discontinued HYCODEN (Oral Syrup) (Free Text) 1 tsp q 6 hr prn for 0 days Quantity: 90 ml Refills: 0 Ordered:29-Nov-2012 Clemencia Ferreira DO Start : 29-Nov-2012 End : 29-Nov-2012 Discontinued Comments:ninety NASACORT AQ, 55MCG/ACT (Nasal Aerosol) 1 (one) Aerosol Aerosol TAD for 0 days Quantity: 1 {Bottle} Refills: 0 Ordered:09-Aug-2015 Brooke Conklin Start : 25-Feb-2015 End : 09-Aug-2015 Discontinued Comments:This order discontinued per [facility]. NYSTATIN, 011910EUPQ/ML (Mouth/Throat Suspension) 5cc Suspension qid for 10 days for 10 days Quantity: 200 {Milliliter} Refills: 1 Ordered:19-Jul-2013 Clemencia Ferreira DO Start : 19-Jul-2013 End : 19-Jul-2013 Discontinued Comments:swish and swallow PAXIL, 20MG (Oral Tablet) 1 QD for 0 days Refills: 0 Ordered:06-Dec-2006 Mast Janette KRUGER End : 06-Dec-2006 Discontinued PERCOCET, 5-325MG (Oral Tablet) 1-2 Tablet q 6hrs, prn for 0 days Quantity: 60 {Tablet} Refills: 0 Ordered:29-Jan-2012 Brooke Conklin Start : 29-Jan-2012 End : 29-Jan-2012 Discontinued Comments:generic PRAVASTATIN SODIUM, 20MG (Oral Tablet) 1 (one) Tablet Tablet qhs for 0 days Quantity: 90 {Tablet} Refills: 3 Ordered:13-Jul-2014 Brooke Conklin Start : 06-Jul-2014 End : 13-Jul-2014 Discontinued PREDNISONE (REJI), 10MG (Oral Tablet) 3 (three) Tablet pills today and tomorrow then 2 pills a day for a week then 1 pill a day for a week then stop for 0 days Quantity: 30 {Tablet} Refills: 0 Ordered:29-Nov-2012 Clemencia Ferreira DO Start : 29-Nov-2012 End : 29-Nov-2012 Discontinued PREDNISONE, 20MG (Oral Tablet) 1 Tablet Daily for 0 days Quantity: 3 {Tablet} Refills: 0 Ordered:13-Feb-2008 Brooke Conklin Start : 13-Feb-2008 End : 06-Mar-2008 Discontinued PREVACID SOLUTAB, 30MG (Oral Tablet Dispersible) 1 tab Tablet Disperse QD for 0 days Quantity: 90 {Tablet_Disperse} Refills: 3 Ordered:21-Dec-2011 Jhon Clemencia JACQUES Start : 21-Dec-2011 End : 21-Dec-2011 Discontinued PREVACID, 30MG (Oral Capsule Delayed Release) 1 QD for 0 days Refills: 0 Ordered:01-Jun-2007 Mast Janette KRUGER End : 01-Jun-2007 Discontinued Proventil HFA 108 (90 Base) MCG/ACT Inhalation Aerosol Solution 2 (two) Puff tid for 0 days Quantity: 1 {Inhaler} Refills: 3 Ordered:14-Apr-2018 Rosemarie Osorio Start : 28-Oct-2016 End : 14-Apr-2018 Discontinued ZETIA, 10MG (Oral Tablet) 1 Tablet QD for 0 days Quantity: 90 {Tablet} Refills: 3 Ordered:21-Nov-2013 Clemencia Ferreira DO Start : 21-Nov-2013 End : 21-Nov-2013 Discontinued Zithromax Z-Reji 250 MG Oral Tablet 1 Tablet TAD for 0 days Quantity: 1 {Package} Refills: 0 Ordered:25-Nov-2018 Katy Gonzalez Start : 02-Nov-2018 End : 25-Nov-2018 Discontinued ZYRTEC ALLERGY, 10MG (Oral Tablet) 1 (one) Tablet Tablet daily for 0 days Quantity: 30 {Tablet} Refills: 0 Ordered:09-Aug-2015 Brooke Conklin Start : 25-Feb-2015 End : 09-Aug-2015 Discontinued Allergies and Adverse Reactions Name Dates Details Adhesive Tape (Allergy) Status: Active Hycodan syrup- (Allergy) Status: Active Comments: weird dreams No Known Drug Allergies (Allergy) Onset: 07-Dec-2014 Status: Inactive Prevnar 13 *VACCINES* (Allergy) Reaction: Rash Status: Active Comments: red all down arm, swollen Past Medical History Name Dates Details Abdominal pain, acute, generalized (R10.84, 789.07) Status: Inactive as of 24-Apr-2009 abnormal pelvic exam- full right adnexa Status: Inactive as of 07-May-2009 Actinic keratosis (Renamed from Actinic keratoses) (L57.0, 702.0) Comments: cryo x 3 Status: Inactive as of 09-Jul-2017 Allergic Rhinitis (J30.9, 477.9) Status: Inactive as of 09-Jul-2017 Allergic rhinitis due to other allergen (J30.89, 477.8) Status: Inactive as of 24-Apr-2009 Anemia, unspecified (D64.9, 285.9) Status: Inactive as of 09-Jul-2017 BMI 29.0-29.9,adult (Z68.29, V85.25) Status: Inactive as of 29-Oct-2017 BMI 30.0-30.9,adult (Z68.30, V85.30) Status: Inactive as of 09-Jul-2017 BMI 32.0-32.9,adult (Z68.32, V85.32) Status: Inactive as of 29-Oct-2017 Bronchitis (J40, 490) 27-Nov-2011 Status: Resolved as of 07-Dec-2014 Bronchitis, acute (J20.9, 466.0) Status: Inactive as of 24-Apr-2009 Candidiasis of mouth (B37.0, 112.0) Status: Resolved as of 12-Nov-2016 Cat bite (W55.01XA, 879.8) Comments: improviong Status: Inactive as of 01-Apr-2018 Cellulitis (L03.90, 682.9) Comments: on antibiotic left lowere leg for cat bite , has had cdiff in past, leg improving Status: Inactive as of 12-Nov-2017 CELLULITIS/ABSCESS, FOOT (682.7) Status: Resolved as of 19-Aug-2011 Chronic obstructive asthma with acute exacerbation (J44.1, 493.22) Status: Resolved as of 07-May-2009 Clostridium difficile diarrhea (Renamed from C. difficile diarrhea) (A04.72, 008.45) Status: Resolved as of 19-Jul-2013 Clostridium difficile infection (B96.89, 041.84) Status: Resolved as of 01-Mar-2013 Contact dermatitis due to poison alina (L23.7, 692.6) 29-Jan-2012 Status: Resolved as of 20-Apr-2012 Cough (R05, 786.2) Status: Inactive as of 10-Dec-2016 Diarrhea (R19.7, 787.91) Status: Resolved as of 15-Sep-2018 Diarrhea (Renamed from D (diarrhea)) (R19.7, 787.91) Status: Inactive as of 09-Jul-2017 Elevated tumor markers (R97.8, 795.89) Comments: elevated AFP 9.5 in 05/23CT scan abdomen: 05/23: no liver abnormalitiesw Rene and he recomended CT scan yearly, next due in 05/24 Status: Inactive as of 10-Dec-2016 Fatigue (R53.83, 780.79) Status: Inactive as of 09-Jul-2017 Hematuria (Renamed from Blood in the urine) (R31.9, 599.7) Comments: repeat normal but now protein- will recheck Status: Inactive as of 10-Dec-2016 Hematuria (Renamed from Blood in the urine) (R31.9, 599.70) Comments: will check again in 2 weeks do clean catch if still pos for blood, send to [facility] using splendahad minimal UTI with alpha strep although just 900 colonies, treated and symptoms went away uses splenda in lots of food Status: Inactive as of 09-Jul-2017 Hemorrhoids (K64.9, 455.6) Status: Inactive as of 10-Dec-2016 Hyperlipidemia, unspecified (E78.5, 272.4) Comments: await labs Status: Inactive as of 09-Jul-2017 Iron deficiency anemia, unspecified (D50.9, 280.9) Status: Resolved as of 08-Jun-2012 Knee pain (Renamed from Arthralgia of knee) (M25.569, 719.46) Status: Inactive as of 24-Apr-2009 Laryngitis (J04.0, 464.00) Status: Resolved as of 05-Apr-2015 Migraine (G43.909, 346.90) Status: Inactive as of 09-Jul-2017 Myalgia and myositis (729.1) Status: Inactive as of 09-Jul-2017 Other seborrheic keratosis (L82.1, 702.19) Status: Inactive as of 09-Jul-2017 Post-nasal drainage (R09.82, 473.9) Status: Inactive as of 09-Jul-2017 preop clearance- her asthma and sob are better -just had stress test earlier this year but will need prop ekg Status: Inactive as of 24-Apr-2009 Rash (Renamed from Cutaneous eruption) (R21, 782.1) Comments: really looks like contact dermatitis not look like infection. talkabout signs and symptoms of infection try steroid not better ? atb.willc all in1 week not better or worsen Status: Resolved as of 07-Jul-2010 Sinus drainage (J34.89, 478.19) Status: Resolved as of 05-Apr-2015 Sinusitis, acute (J01.90, 461.9) 25-Dec-2010 Status: Resolved as of 30-Jan-2011 Sinusitis, bacterial (J32.9, 473.9) Status: Inactive as of 29-Oct-2017 SOB (shortness of breath) on exertion (R06.02, 786.05) Status: Inactive as of 10-Dec-2016 SOB (shortness of breath) on exertion (R06.02, 786.05) Status: Inactive as of 24-Apr-2009 Sore gums (K05.6, 523.9) Status: Resolved as of 26-May-2018 Sore throat (J02.9, 462) Status: Resolved as of 07-Jul-2010 Symptom, Cough (R05, 786.2) 20-Apr-2012 Status: Inactive as of 10-Dec-2016 Synovial cyst (M71.30, 727.40) Comments: reassurance Status: Inactive as of 09-Jul-2017 thrush Status: Inactive as of 24-Apr-2009 Unspecified asthma with (acute) exacerbation (J45.901, 493.92) Status: Resolved as of 19-Jul-2013 Unspecified bacterial pneumonia (J15.9, 482.9) Status: Resolved as of 29-Nov-2012 Unspecified Diagnosis Status: Inactive as of 30-Jan-2011 Well woman exam (Z00.00, V70.0) Status: Inactive as of 30-Jan-2011 Wheezing (Renamed from Asthmatic breathing) (R06.2, 786.07) Status: Resolved as of 07-Dec-2014 Procedures Procedure Dates Details blepharoplasty- 2013 - Completed Cataract Removal, Insert Prosthetic Lens Completed Comments: both eyes 2011 Left shoulder Completed Comments: reverse replacement-Dr Abreu Shoulder Surgery Completed Comments: lt 03/25 Date Value Details 29-Oct-2018 Discharge Instruction Result: Comments: See Note; NOTES: [facility] Medical Records Department [address] [place] [address] Discharge Instruction 10/29/18 1511 MR#: [id number] Acct: [id number] Name: CHESTERESTRELLITA AVERYKARTHIK Mayda Rep #: [id number] : 1945 73 From: Stephany Francois DO PCP: Jessica Tanner DO Status: REG ER ED Disposition - Plan for ED Patient: Chief Complaint: Cough Instructions: ED Bronchitis Asthma tic Prescriptions: Albuterol Aerosols [Ventolin Aerosols] 2.5 mg INHALATION Q4H PRN #25 vial Albuterol Inhaler [Ventolin Hfa] 1 - 2 puff INHALATION Q4H PRN PRN #1 inhaler PRN Reason: Wheezing Prednisone [Deltasone] 20 mg PO BID #10 tab Referrals: Jessica Tanner DO [Primary Care Provider] - 5-7 Days What to do if you have Problems For any increased pain, shortness of breath, bleeding, nausea or v omiting, chest pain, or any unexpected problems, contact your Primary Care Provider. Call [facility] ([phone]) or report to the closest Emergency Room. Call 911 if necessary. 10/29/18 1513 <Electronically signed by Stephany Francois DO> Date Stephany Francois DO Cosigner Signature (If Indicated): Date CC: Jessica Tanner DO 29-Oct-2018 Emergency Department Summary Result: Comments: See Note; NOTES: [facility] Medical Records Department [address] [place] [address] Emergency Department Summary 10/29/18 1509 MR#: [id number] Acct: [id number] Name: CHESTERSUE Ohara Rep #: [id number] : 1945 73 From: Stephany Francosi DO PCP: Jessica Tanner DO Status: REG ER - ER Visit Summary Date of Service: 10/29/18 Chief Complaint: [Cough] History of Presen t Illness: The patient is a 73 F [presents to the emergency department with cough that started yesterday. Patient states the cough is nonproductive. Patient denies any fever. She does have a history of asthma and she felt like she was wheezing this morning. Patient denies any chest pain. Denies any sick contacts.] Physical Examination: [HEENT-PERRLA, EOMI. Cranial nerves II through XII grossly intact . TMs clear. Mucous membranes moist. No adenopathy. Cardiovascular-regular rate and rhythm without murmur or ectopy Lungs-decreased breath sounds bilaterally with some pain X Tory wheezes noted. No ac cessory muscle use or retractions. Abdomen-normoactive bowel sounds, soft, nontender, no rebound or rigidity, no peritoneal signs. Extremities-intact 4, normal range of motion, normal pulses, atraumat ic] Test Results: [Influenza screen was negative. Chest x-ray obtained read by myself as no acute infiltrates however official from radiology is pending.] Emergency Department Course and Treatment: Kristin arriaga was given a DuoNeb aerosol she did feel improved after treatment. Patient was given a dose of prednisone.] Treatment Plan: [Patient will be written a prescription for albuterol MDI as well as alb uterol solution for nebulizer and a prescription for prednisone. Patient advised to follow-up with primary care physician within next 5-7 days.] Disposition: [Discharged home in stable condition. Patie nt advised to return if increasing shortness of breath or condition should worsen anyway.] Impression: [Asthmatic bronchitis] This note was generated with [employer] dictation software. It may contain i ncorrect words, spelling, and punctuation that were not noted in review of the chart prior to signing ED Disposition - Plan for ED Patient: Chief Complaint: Cough Referrals: Jessica Tanner DO [[facility] Care Provider] - What to do if you have Problems For any increased pain, shortness of breath, bleeding, nausea or vomiting, chest pain, or any unexpected problems, contact your Primary Care Prov ider. Call [facility] ([phone]) or report to the closest Emergency Room. Call 911 if necessary. 10/29/18 4299 <Electronically signed by Stephany Francois DO> Date ____ Stephany Francois DO Cosigner Signature (If Indicated): Date CC: Jessica Tanner DO 29-Oct-2018 Chest PA and Lateral Result: Comments: See Note; NOTES: [facility] Imaging Services [address] [place] [address] Chest PA and Lateral MR#: [id number] Acct: [id number] Name: SUE HAWTHORNE Rep #: [id number] : 1945 F 73 From: Jay Jones MD PCP: Jessica Tanner DO Status: DEP ER Study: Chest PA and Lateral Date of Exam: 10/29/18 Exam# [id number] Ordering Dr: Stephany Francois DO STUDY: X-RAY CHEST REASON FOR EXAM: Female, 73 years old. Cough. TECHNIQUE: PA and lateral views of the chest. COMPARISON: 02/22/2017. FINDINGS: The lungs are somewhat hyperinflated. No focal infiltrate is seen. There is no demonstrated pleural abnormality. Normal size heart. Normal mediastinum and ester. Normal visualized pulmonary arteries. Normal visualized aortic arch and desce nding thoracic aorta. There are degenerative changes of the visualized thoracic spine. Right shoulder prosthesis is again seen. There is no demonstrated abnormality of the visualized soft tissue struc tures of the upper abdomen. 0028 RAD/Chest PA and Lateral IMPRESSION: No active pulmonary disease. Electronically Signed: Jay Jones MD 2 at 15:25 EST Tel , Service support , CC: Jessica Tanner DO; Stephany Francois DO Principle Software Engineer: Signed 21-Jul-2018 Orthopedic Visit Report Result: Comments: See Note; NOTES: [facility] [address] [place] [address] OFFICE VISIT Date of Service: 07/12/18 MR#: [id number] Acct: [id number] Name: SUE HAWTHORNE Rep #: [id number] : 1945 Provider: Ginny Currie DO Age/Sex: 72/F [place] [facility] Status: Signed Intake Intake Visit Reasons: right foot Is patient in pain?: Yes Santo rgies adhesive Adverse Reaction (Verified 06/07/18 15:31) Rash latex Adverse Reaction (Verified 06/07/18 15:31) Rash Medications Asmanex 2 puff IH DAILY 02/20/18 [History Confirmed 03/28/18] Calcium Carbonate/Vitamin D3 [Calcium 600-Vit D3 200 Tablet] 1 ea PO BID 02/20/18 [History Confirmed 03/28/18] Cholecalciferol (Vitamin D3) [Vitamin D3] 2,000 unit PO BID 02/20/18 [History Confirmed 03/28/18] Cinnamon Bark [Cinnamon] 1,000 mg PO DAILY 02/20/18 [History Confirmed 03/28/18] Citalopram Hydrobromide [Celexa] 20 mg PO DAILY 02/20/18 [History Confirmed 03/28/18] Fexofenadine HCl 180 mg PO DAILY [History Confirmed 03/28/18] Fluticasone Propionate [Flovent Diskus] 50 mcg IH QHS 02/20/18 [History Confirmed 03/28/18] L.acidoph,Paracasei, B.lactis [Probiotic] 1 ea PO DAILY 02/20/18 [History Confirmed 03/28/18] Lovastatin [Altoprev] 20 mg PO QODAY 02/20/18 [History Confirmed 03/28/18] Multivitamin,Therapeutic [Thera] 1 ea PO DAILY 02/20/18 [History Confirmed 03/28/18] Omeprazole [Prilosec] 20 mg PO DAILY 02/20/18 [History Confirmed 03/28/18] Docusate Sodium [Colace] 100 mg PO BID PRN PRN #10 cap 03/16/18 [Rx Confirmed 03/28/18] Oxycodone HCl/Acetaminophen [Percocet 5/325] 1 - 2 tab PO Q4H PRN PRN #60 tab 03/16/18 [Rx Confirmed 03/28/18] PFSH Surgical History h/o left reverse total shoulder (Acute) Social History Smoking Status: Never smoker HPI right foot: Details: SUE Marie is a 72 year old F here today for f/u on her injured right foot. She wore a boot for approximately 6wks. Today she complains of pain over the anterior of the foot at the 4th and 3rd metatarsals. She c omplains of sharp pain when she has been more active, and swelling that comes and goes, after activity she has ttp the 4th metatarsal at midshaft. Denies numbness, tingling or other associated symptoms. There is a visual bump at the tender site. NITESH Dailey Reports joint pain Ortho Exam Right Ankle Skin/Wound: Yes CDI; no Soft Tissue Swelling (calcified swelling anterior foot ) Exam: absent TTP FX sit e Dorsiflexion 0-20: 20 degrees Plantar Flexion 0-40: 40 degrees Assessment AND Plan 1. Right foot pain M79.671 Plan X-rays were reviewed. There is good healing at the old fracture site. She has swell ing today and we will refer to Dr Corona for consult. Explained that a fracture once healed can change the cascade of the foot and make the other metatarsals hurt. Follow up with Dr Corona or tj saini if pain, swelling, numbness or associated symptoms, or concerns develop. All questions answered. Patient in agreement of plan. Plan Detail Other Orders Orders: Coding Level of Care Code Off vis,est, level 3 Diagnoses Right foot pain M79.671 07/21/18 4554 <Electronically signed by Ginny Currie DO> Date Ginny Currie DO Cos igner Signature: Date (if applicable) CC: 12-Jul-2018 Foot min 3 Views Result: Comments: See Note; NOTES: [facility] Imaging Services [address] [place] [address] Foot min 3 Views MR#: [id number] Acct: [id number] Name: SUE HAWTHORNE Rep #: [id number] : 1945 F 72 From: Mario Salguero MD PCP: Jessica Tanner DO Status: REG CLI Study: Foot min 3 Views Date of Exam: 07/12/18 Exam# [id number] Ordering Dr: Ginny Currie DO STUDY: X-RAY - RIGHT F OOT CLINICAL: Pain. TECHNIQUE: 3 view(s) of the foot. COMPARISON: Radiographs 03/28/2018. FINDINGS: There is osteopenia. There are posterior and plantar calcaneal enthesophytes. There is a type II accessory navicular. There are dorsal osteophytes and joint space narrowing of the first and second tarsometatarsal joints. Normal metatarsi. Normal metatarsophalan geal joint of the great toe. Normal tibial and fibular sesamoid bones. Normal interphalangeal joint of the great toe. Normal phalanges of the great toe. Normal second through fifth metatarsophalangeal joints. Normal interphalangeal joints and phalanges of the lesser toes. The soft tissue structures are unremarkable. 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 Calcaneal enthesopathy. Osteopenia. Electronically Signed: Mario Salguero MD at 13:33 EDT Tel , Service sup port , CC: Ginny Currie DO; Jessica Tanner DO Principle Software Engineer: Signed 05-Jul-2018 PT D/C Summary (1) Result: Comments: See Note; NOTES: [facility] [address] [place], [place] [address] Fax REHABILITATION SERVICES DISCHAR GE SUMMARY MR#: [id number] Acct: [id number] Name: SUE HAWTHORNE Rep #: [id number] : 1945 72 From: Violetta Lazcano PT, Cert. MDT Referring Dr.: Josemanuel Abreu DO Status: REG RCR Insurance: [employer] - PT D/C Summary It has been my pleasure to treat SUE HAWTHORNE under orders from Josemanuel Abreu DO, for the diagnosis of LEFT RTSA WITH SUBSCAP REPAIR for a total of 34 visit(s). Discharge Date: Please see the following information for a summary of their discharge status. - Subjective Subjective: PATIENT REPORTS SHE WAS ABLE TO WASH HER BIG WINDOWS LAST WEEK AND SHE HAS A L OT OF THEM. PATIENT REPORTS SHE WAS ABLE TO WASH AND BLOW DRY HER HAIR NOW TOO. FOLLOW UP WITH DR. CURRIE PENDING AUG 2018 - Pain LEFT SHOULDER Pain Intensity (Out of 10): 0 - Overall Improveme nt % Improvement: 85 - Objective Objective/Function: PATIENTS LEFT UE IS CONTINUTING TO IMPROVE IN TERMS OF STRENGTH, ROM AND FUNCTION SLOWLY BUT SHE HAS SIGNIFICANTLY IMPROVED IN TERMS OF HER SHOULDER MECHANICS. IN SITTING, LEFT SHOULDER FLEX AROM HAS IMPROVED FROM 88 DEG TO 115 DEG SINCE LAST RE-CHECK AND SUPINE LEFT SHOULDER PASSIVE FLEXION HAS IMPROVED FROM 130 DEG TO 146 DEG SINCE LAST RE-CHECK. SEATED SCAPTION = 95 DEG AND SUPINE 125. SUPINE IR/ER WITH 90 DEG OF ABD = 40/45 DEG. SHE HAS GOOD ELBOW FLEX/EXT STRENGTH AND LEFT TRAVELING FREIGHT AGENT STRENGTH = 45 LBS COMPARED TO 55LBS ON HER DOMINANT HAND (R). LE FT SHOULDER FLEX STRENGTH IS 3-/5, SCAPTION 2+/5, IR 3-/5, ER 2-/5. OVER-ALL AT ALMOST 12 WEEKS POST OP SHE HAS EXCEEDED MY EXPECTATIONS. DASH SCORE HAS IMPROVED SINCE LAST RE-CHECK FROM 68 TO 40. GREGORY NT COMMUNICATES A GOOD UNDERSTANDING OF PROTOCOL FOR 12+ WEEKS POST OP (PHASE 6). - Goals Goal 1:: INCREASE FUNCTIONAL ROM OF LEFT UE Goal Progress: Goal Met Goal 2:: INCREASE FUNCTIONAL STRENGTH OF LE FT UE Goal Progress: Goal Met Goal 3:: DECREASE C/O LEFT SHOULDER AND UPPER ARM PAIN Goal Progress: Goal Met Goal 4:: INDEP HEP Goal Progress: Goal Met - Plan Plan: D/C TO INDEP HEP. PATIENT IS AGREEAB LE. - D/C Information If there are questions or concerns regarding this patient's physical therapy, please feel free to call me at [phone]. Thank you for the referral of this patient. Sincerely, Violetta Lazcano <Electronically signed by Violetta Lazcano PT, Cert. MDT> 07/05/18 1348 CC: Jessica Tanner DOCristin Abreu DO HUSSEIN Signed 20-Jun-2018 Orthopedic Visit Report Result: Comments: See Note; NOTES: [facility] [address] [place] [address] OFFICE VISIT Date of Service: 06/07/18 MR#: [id number] Acct: [id number] Name: SUE HAWTHORNE Rep #: [id number] : 1945 Provider: KRISTIN Amezquita Age/Sex: 72/F [place] [facility] Status: Signed Intake Intake Visit Reasons: f/u rt foot fx and lt shoulder ORIF dos Is patient in pain?: No Allergies adhesive Adverse Reaction (Verified 06/07/18 15:31) Rash latex Adverse Reaction (Verified 06/07/18 15:31) Rash Medications Asmanex 2 puff IH DAILY 02/20/18 [His tory Confirmed 03/28/18] Calcium Carbonate/Vitamin D3 [Calcium 600-Vit D3 200 Tablet] 1 ea PO BID 02/20/18 [History Confirmed 03/28/18] Cholecalciferol (Vitamin D3) [Vitamin D3] 2,000 unit PO BID [History Confirmed 03/28/18] Cinnamon Bark [Cinnamon] 1,000 mg PO DAILY 02/20/18 [History Confirmed 03/28/18] Citalopram Hydrobromide [Celexa] 20 mg PO DAILY 02/20/18 [History Confirmed 03/28/18] Fex ofenadine HCl 180 mg PO DAILY 02/20/18 [History Confirmed 03/28/18] Fluticasone Propionate [Flovent Diskus] 50 mcg IH QHS 02/20/18 [History Confirmed 03/28/18] L.acidoph,Paracasei, B.lactis [Probiotic] 1 ea PO DAILY 02/20/18 [History Confirmed 03/28/18] Lovastatin [Altoprev] 20 mg PO QODAY 02/20/18 [History Confirmed 03/28/18] Multivitamin,Therapeutic [Thera] 1 ea PO DAILY 02/20/18 [History Confirmed 03/28/18] Omeprazole [Prilosec] 20 mg PO DAILY 02/20/18 [History Confirmed 03/28/18] Docusate Sodium [Colace] 100 mg PO BID PRN PRN #10 cap 03/16/18 [Rx Confirmed 03/28/18] Oxycodone HCl/Acetaminophen [ Percocet 5/325] 1 - 2 tab PO Q4H PRN PRN #60 tab 03/16/18 [Rx Confirmed 03/28/18] PFSH Surgical History h/o left reverse total shoulder (Acute) Social History Smoking Status: Never smoker HPI f/u rt foot fx and lt shoulder ORIF dos 03/09/18: Details: SUE HAWTHORNE is a 72 year old F here today for s/p left RTSA dos 03/11/[address] Abreu. Patient states that she is doing well. Her range of motion is good. Patient is currently in formal physical therapy. Her strength is poor. Patient denies any pain medications. She notes that she has numbness into her hand at times. Patient notes that her foot fracture is much better. She has swelling at times. Patient is able to wear sandals with no pain. She is ambulating with no pain. Patient notes that she has soreness after many daily activities. ROS Co nst Reports system reviewed and no additional complaints, except as docu Eyes Reports system reviewed and no additional complaints, except as docu ENT Reports system reviewed and no additional complaint s, except as docu Card Reports system reviewed and no additional complaints, except as docu Resp Reports system reviewed and no additional complaints, except as docu GI Reports system reviewed and no ad ditional complaints, except as docu Reports system reviewed and no additional complaints, except as docu Skin/Breast Reports system reviewed and no additional complaints, except as docu Neuro Yes sys tem reviewed and no additional complaints, except as docu Psych Reports system reviewed and no additional complaints, except as docu Endo Reports system reviewed and no additional complaints, except as docu Ortho Exam Left Shoulder Testing: No AROM-External Rotation at side 0-60, No AROM-Forward Elevation 0-180 (65), Yes AROM-External Rotation at 90 0-60 (30) SHOULDER: Patient's sensation is full in tact on the entire upper extremity. Her AROM has improved from previous visit at the same time still shows decrease in her overall motion. We can passively get more motion. Her strength against resistan ce is still decreased at the same time she is starting to gain strength. She does not have pains to palpation. No adenopathy. No skin changes. Assessment AND Plan Problems 1. 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 She still has occasional pains with use but improvi ng all the time. HEr ROM has improved as has her strength. She states that she has been starting to be able to do a lot more things with the shoulder. She has no concerns or complaints at this time. She will continue to work on rehab / strength of the shoulder. Will notify of any change or concerns. 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 [place] [address] Fax REEVALUATION / MEDICARE [facility] MR#: [id number] Acct: [id number] Name: SUE HAWTHORNE Rep #: [id number] : 1945 72 From: Violetta Lazcano PT, Cert. MDT Referring Dr.: Josemanuel Abreu DO Status: REG RCR Ins urance: MEDICARE PART A B ANTHEM Josemanuel Abreu, , It has been my pleasure to treat SUE HAWTHORNE over the last 28 visits for LEFT RTSA WITH SUBSCAP REPAIR. Please see the progress note below for a n update on the physical therapy plan of care! Subjective: PATIENT REPORTS THAT AT TIMES HER LEFT SHOULDER FEELS NORMAL AND THAT IS A BIG IMPROVEMENT. SHE REPORTS SHE IS DOING A LOT OF THINGS WITH NO P ROBLEM. IT IS GETTING EASIER TO SLEEP AT NIGHT COMFORTABLY, REACH UP INTO THE CUPBOARD AND DO HER HAIR. SHE REPORTS THE MVMT IS COMING A LONG BUT THE STRENGTH AND STAMINA ISN'T THERE. LEFT SHOULDER PAIN AT ITS WORST IS 6/10. Objective/Function: PATIENTS LEFT UE IS CONTINUTING TO IMPROVE IN TERMS OF STRENGTH, ROM AND FUNCTION SLOWLY BUT SHE STILL HAS SIGNIFICANT POOR SHOULDER MECHANICS WITH SHOULDER HI ROHIT WITH AROM AGAINST GRAVITY THEREFORE WE ARE CONTINUING PASSIVE AND AA REPEATIVE ROM VS AROM. IN SITTING, LEFT SHOULDER FLEX AROM HAS IMPROVED FROM 75 DEG TO 88 DEG SINCE LAST RE-CHECK AND SUPINE LEF T SHOULDER PASSIVE FLEXION HAS IMPROVED FROM 110 DEG TO 130 DEG SINCE LAST RE- CHECK. DASH SCORE HAS IMPROVED SINCE LAST RE-CHECK FROM 82 TO 68 Plan Plan: CONT PER POC INCLUDING PROM NEEDED TAPERING OFF OF THERAPY SLOWLY STARTING WITH 2 X'S A WEEK X 2 MORE WEEKS THEN DECREASING TO 1X/WEEK X 2 WEEKS ENCOURAGING HEP INCREASE AND COMPLIANCE. PATIENT IS AGREEABLE TO THIS POC KNOWING THAT IF THERE IS A NEED TO INCREASE PT AGAIN WE CAN CONSIDER THAT. Goals Goal 1:: INCREASE FUNCTIONAL ROM OF LEFT UE Goal Time Frame: 8-12 Weeks Goal Progress: Progressing Goal 2:: INCREASE FUNCTIONAL STRENGTH OF LEFT UE Goal Time Frame: 8-12 Weeks Goal Progress: Progressing Goal 3:: DECREASE C/O LEFT SHOULDER AND UPPER ARM PAIN Goal Time Frame: 8-12 Weeks Goal Progress: Progressing Goal 4:: INDEP HEP Goal Time Frame: 8-12 Weeks Goal Progress: Progressing Anticipated Interventions Patient/Client Instruction: Educate patient on: Condition, Plan of Care, Risk Factors, Benefits of Fitness Program For the Purpose of:: T o improve self management Therapeutic Exercise to Include: Strength training, Body mechanics, Postural training, Flexibilty training, Passive ROM, Active ROM, Scapular Strength/Stabilization Comment: PE R PROTOCOL For the Purpose of:: To decrease pain, To increase ROM, To improve nutrient delivery to tissue, To improve muscle performance and motor function, To improve ability to perform ADL's, To impro ve ability of physical actions for home/community/work/leisure Cryotherapy (ice pack, ice massage): Yes Thermo therapy (hot pack): Yes For the Purpose of:: To decrease pain, To decrease swelling/inflamm ation, To increase ROM Please do not hesitate to contact me at [phone] by phone or if you have questions or concerns regarding this new plan of care! Sincerely, Violetta Lazcano <Electronically signed by Violetta Lazcano PT, Cert. MDT> 06/06/18 1222 CC: Jessica Tanner DO; Josemanuel Abreu DO HUSSEIN Signed For Medicare only, by signing this I certify the plan of care. Physicians Signature Date 13-May-2018 Re-Evaluation - PT (1) Result: Comments: See Note; NOTES: [facility] [address] [place] [address]. [address] [place] [address] Fax REEVALUATION / MEDICARE [facility] PHYSICAL THERAPY MR#: [id number] Acct: [id number] Name: SUE HAWTHORNE Rep #: [id number] : 1945 72 From: Violetta Lazcano PT, Cert. MDT Referring DrMireille: Josemanuel Abreu DO Status: REG RCR Ins urance: MEDICARE PART A B ANTHEM Josemanuel Abreu, DO, It has been my pleasure to treat SUE HAWTHORNE over the last 18 visits for LEFT RTSA WITH SUBSCAP REPAIR. Please see the progress note below for a n update on the physical therapy plan of care! Subjective: PATIENT REPORTS HER ARM IS GETTING BETTER BUT SHE DOESN'T ALWAYS HAVE TIME TO DO HER HEP. Objective/Function: LEFT SHOULDER ROM, STRENGTH AND FUNCTION IS IMPROVING SLOWLY. PROM OF LEFT SHOULDER IN SUPINE HAS IMPROVED TO 110 DEG. AROM IN SITTING 75 DEG. PATIENT CONTINUES TO HAVE POOR SHOULDER MECHANICS WITH SHOULDER HIKING WITH AROM AGAINST GR AVITY THEREFORE WE ARE CONTINUING PASSIVE AND AA REPEATIVE ROM VS AROM. Plan Plan: CONT PER PROTOCOL 3X'S A WEEK X 10 MORE VISITS. PATIENT AGREEABLE. Goals Goal 1:: INCREASE FUNCTIONAL ROM OF LEFT UE Goal Time Frame: 8-12 Weeks Goal Progress: Progressing Goal 2:: INCREASE FUNCTIONAL STRENGTH OF LEFT UE Goal Time Frame: 8-12 Weeks Goal Progress: Progressing Goal 3:: DECREASE C/O LEFT SHOULDER AND UPP ER ARM PAIN Goal Time Frame: 8-12 Weeks Goal Progress: Progressing Goal 4:: INDEP HEP Goal Time Frame: 8-12 Weeks Goal Progress: Progressing Anticipated Interventions Patient/Client Instruction: Educat e patient on: Condition, Plan of Care, Risk Factors, Benefits of Fitness Program For the Purpose of:: To improve self management Therapeutic Exercise to Include: Strength training, Body mechanics, Postu ral training, Flexibilty training, Passive ROM, Active ROM, Scapular Strength/Stabilization Comment: PER PROTOCOL For the Purpose of:: To decrease pain, To increase ROM, To improve nutrient delivery to tissue, To improve muscle performance and motor function, To improve ability to perform ADL's, To improve ability of physical actions for home/community/work/leisure Cryotherapy (ice pack, ice massage): Yes Thermo therapy (hot pack): Yes For the Purpose of:: To decrease pain, To decrease swelling/inflammation, To increase ROM Please do not hesitate to contact me at [phone] by phone or Fax: if you have questions or concerns regarding this new plan of care! Sincerely, Violetta Lazcano <Electronically signed by Violetta Lazcano PT, Cert. MDT> 05/13/18 1228 CC: Jessica Tanner DO; Josemanuel Abreu DO HUSSEIN Signed For Medicare only, by signing this I certify the plan of care. Physicians Signature Date 12-May-2018 Dexa Bone Density Study Result: Comments: See Note; NOTES: [facility] Imaging Services [address] [place] [address] Dexa Bone Density Study MR#: [id number] Acct: [id number] Name: SUE HAWTHONRE Rep #: [id number] : 1945 F 72 From: Yousif Hathaway MD PCP: Jessica Tanner DO Status: REG CLI Study: Dexa Bone Density Study Date of Exam: 05/12/18 Exam# [id number] Ordering Dr: Jessica Tanner DO ILA DY: DUAL ENERGY X-RAY ABSORPTIOMETRY / DXA REASON FOR EXAM: Female, 72 years old. The patient is postmenopausal. Loss of height. TECHNIQUE: Bone Mineral Density (BMD) measurements of lumbar spine and bilateral hips were obtained. COMPARISON: Comparison is made with prior study dated May 27, 2011. FINDINGS: Lumbar Spine (L1-L4): g/cm2 (1.154) / T-score (-0.2) / Z-score (1.5) Findings are suggestive of normal bone density with a low fracture risk. Left Femur Total: g/cm2 (0.812) / T-score (-1.6) / Z-score (0.0) Left Femoral Neck: g/cm2 (0.743) / T-score (-2.1 ) / Z-score (-0.3) Right Femur Total: g/cm2 (0.857) / T-score (-1.2) / Z-score (0.4) Right Femoral Neck: g/cm2 (0.791) / T-score (-1.8) / Z-score (0.0) The T-Scores on the most recent prior examination were: Lumbar Spine (L1-L4): There has been improvement of bone density since the previous examination. Left Femur Total: which represents a worsening of 3.7%. Right Femur Total: which represents a wo rsening of 5.5%. BD/Dexa Bone Density Study IMPRESSION: The patient is considered osteopenic as outlined below according to World [employer] ion (WHO) criteria with a moderate fracture risk. There has been worsening of bone density since the previous examination. Reference Information: The T-score is the number of standard deviations above or below the standard which is normal for young adults at their peak bone mineral density. The World Health Organization (WHO) interprets the T-scores as follows: A mallory -1 Normal bone density Between -1 and -2.5 Osteopenia Equal to / or below -2.5 Osteoporosis As a practical clinical guideline, osteopenia may be graded as follows: Mild -1 through -1.5 Moderate -1 .6 through -2.0 Severe -2.1 through -2.4 The Z-score is the number of standard deviations above or below age-matched controls. A Z-score of less than -1.5 would be considered abnormal. References: 1. NIH Osteoporosis and Related Bone Diseases http://www.osteo.org 2. International Society for Clinical Densitometry http://www.iscd.org 3. National Osteoporosis Foundation http://www.nof.org Electronica lly Signed: Yousif Hathaway MD at 15:14 EDT Tel [phone], Service support , CC: Jessica Tanner DO Principle Software Engineer: Signed 05-May-2018 Orthopedic Visit Report Result: Comments: See Note; NOTES: [facility] Orthopaedics AND Sports Medicine [facility] [place] [address] OFFICE VISIT Date of Service: 04/25/18 MR#: [id number] Acct: [id number] Name: SUE HAWTHORNE Rep #: [id number] : 1945 Provider: Josemanuel Abreu DO Age/Sex: 72/F [place] [facility] Status: Signed Intake Intake Visit Reasons: LEFT SHOULDER Is patient in pain?: Yes Pain scale (1-10): 1 Allergies adhesive Adverse Reaction (Verified 04/25/18 10:57) Rash latex Adverse Reaction (Verified 04/25/18 10:57) Rash Medications Asmanex 2 puff IH DAILY 02/20/18 [History Confir med 03/28/18] Calcium Carbonate/Vitamin D3 [Calcium 600-Vit D3 200 Tablet] 1 ea PO BID 02/20/18 [History Confirmed 03/28/18] Cholecalciferol (Vitamin D3) [Vitamin D3] 2,000 unit PO BID 02/20/18 [History Confirmed 03/28/18] Cinnamon Bark [Cinnamon] 1,000 mg PO DAILY 02/20/18 [History Confirmed 03/28/18] Citalopram Hydrobromide [Celexa] 20 mg PO DAILY 02/20/18 [History Confirmed 03/28/18] Fexofenadine H Cl 180 mg PO DAILY 02/20/18 [History Confirmed 03/28/18] Fluticasone Propionate [Flovent Diskus] 50 mcg IH QHS 02/20/18 [History Confirmed 03/28/18] L.acidoph,Paracasei, B.lactis [Probiotic] 1 ea PO NADER LY 02/20/18 [History Confirmed 03/28/18] Lovastatin [Altoprev] 20 mg PO QODAY 02/20/18 [History Confirmed 03/28/18] Multivitamin,Therapeutic [Thera] 1 ea PO DAILY 02/20/18 [History Confirmed 03/28/18] O meprazole [Prilosec] 20 mg PO DAILY 02/20/18 [History Confirmed 03/28/18] Docusate Sodium [Colace] 100 mg PO BID PRN PRN #10 cap 03/16/18 [Rx Confirmed 03/28/18] Oxycodone HCl/Acetaminophen [Percocet 5/ 325] 1 - 2 tab PO Q4H PRN PRN #60 tab 03/16/18 [Rx Confirmed 03/28/18] PFSH Surgical History h/o left reverse total shoulder (Acute) Social History Smoking Status: Never smoker HPI LEFT SHOUL SABIHA: Details: SUE HAWTHORNE is a 72 year old F here today for s/p left RTSA dos 03/11/18. Patient is doing well and is improving. She has been wearing her sling while away from her home. She has minimal jude n and denies taking any pain medications. Patient is having trouble sleeping due to unable to lay on her side. Patient is currently in physical therapy which is helpful. Denies numbness, tingling or oth er associated symptoms. ROS Const Reports system reviewed and no additional complaints, except as docu Eyes Reports system reviewed and no additional complaints, except as docu ENT Reports system revie wed and no additional complaints, except as docu Card Reports system reviewed and no additional complaints, except as docu Resp Reports system reviewed and no additional complaints, except as docu GI Re ports system reviewed and no additional complaints, except as docu Reports system reviewed and no additional complaints, except as docu Musc Reports muscle weakness, Reports stiffness Skin/Breast Rep orts system reviewed and no additional complaints, except as docu Neuro Yes system reviewed and no additional complaints, except as docu Psych Reports system reviewed and no additional complaints, excep t as docu Endo Reports system reviewed and no additional complaints, except as docu Ortho Exam Left Shoulder Skin/Wound: Yes CDI, Yes healed Contralateral Normal: Yes SHOULDER: Alert and oriented 3 no acute distress. Appropriate eye contact and affect. Otherwise intact the C5 the T2 distributions. She has positive pulses. She has no extra adenopathy. Axillary muscular cutaneous functions are 5 out o f 5. Patient able to resist abduction at this point. Range of motion limited on external rotation to about 25 as expected from her subscap osteotomy repair. Otherwise patient gets about maybe 45 for tata vation currently active but passively I can get her up to about 95-100. X-rays: Evaluated by myself patient-hardware otherwise well-seated well-placed status post reverse total shoulder arthroplasty fo r a four-part proximal humerus fracture Assessment AND Plan Problems 1. Orthopedic aftercare Z47.89 Plan Assessment: After orthopedic status post left reverse total shoulder arthroplasty for a four-p art humerus fracture. Stable. Plan: Patient will follow-up in [address] Mayers. Range of motion check specifically I do not think radiographs are necessary unless there is an issue. Did williamr m the patient there is been a long recovery time of this that she really needs to be working on her range of motion learning how to use her anterior deltoid give her as much power as possible. Patient h ad a significant fracture and also was aware that the recovery with trying to heal bone and do a reverse total shoulder arthroplasty in lead to delays in terms of gaining power. For now continue work on range of motion exercises. Any major issues return. Orders Orders: Coding Level of Care Code Global Post Op Diagnoses Orthopedic aftercare Z47.89 05/05/18 1030 <Electronically signed by Josemanuel Abreu DO> Date Josemanuel Abreu DO Cosigner Signature: Date (if applicable) CC: 25-Apr-2018 Shoulder min 2 Views Result: Comments: See Note; NOTES: [facility] Imaging Services [address] [place] [address] Shoulder min 2 Views MR#: [id number] Acct: [id number] Name: SUE HAWTHORNE Mayda Rep #: [id number] : 1945 F 72 From: Mario Salguero MD PCP: Jessica Tanenr DO Status: REG CLI Study: Shoulder min 2 Views Date of Exam: 04/25/18 Exam# [id number] Ordering Dr: Josemanuel Abreu DO STUDY: X-RAY - LE FT SHOULDER REASON FOR EXAM: Pain, postoperative. TECHNIQUE: 4 view(s) of the shoulder. COMPARISON: Radiographs 03/28/2018 and 03/15/2018. FINDINGS: There is a total shoulder arthroplasty without interval change. There is no substantial acromioclavicular arthrosis. Normal acromion. There are small osseous fragments at the lateral aspect of the prosthesis as on the prior study. Normal visualized pulmonary apex. RAD/Shoulder min 2 Views IMPRESSION: No interval change of left shoulder arthroplasty. Electron ically Signed: Mario Salguero MD at 14:21 EDT Tel , Service support , CC: Jessica Tanner DO; Josemanuel Abreu DO Principle Software Engineer: Signed 06-Apr-2018 Orthopedic Visit Report Result: Comments: See Note; NOTES: [facility] Orthopaedics AND Sports Medicine [address] [place] [address] OFFICE VISIT Date of Service: 03/28/18 MR#: [id number] Acct: [id number] Name: SUE HAWTHORNE Rep #: [id number] : 1945 Provider: Josemanuel Abreu DO Age/Sex: 72/F [place] [facility] Status: Signed Intake Intake Visit Reasons: LEFT SHOULDER Accompanied by: Is pa tient in pain?: Yes Pain scale (1-10): 2 Allergies adhesive Adverse Reaction (Verified 03/11/18 10:06) Rash latex Adverse Reaction (Verified 03/11/18 10:06) Rash Medications Asmanex 2 puff IH DAILY 02/20/18 [History Confirmed 03/28/18] Calcium Carbonate/Vitamin D3 [Calcium 600- Vit D3 200 Tablet] 1 ea PO BID 02/20/18 [History Confirmed 03/28/18] Cholecalciferol (Vitamin D3) [Vitamin D3] 2,000 unit PO BID 02/20/18 [History Confirmed 03/28/18] Cinnamon Bark [Cinnamon] 1,000 mg PO DAILY 02/20/18 [History Confirmed 03/28/18] Citalopram Hydrobromide [Celexa] 20 mg PO DAILY 02/20/18 [History Confirmed 03/28/18] Fexofenadine HCl 180 mg PO DAILY 02/20/18 [History Confirmed 03/28/18] Fluticasone Propionate [Flovent Diskus] 50 mcg IH QHS 02/20/18 [History Confirmed 03/28/18] L.acidoph,Paracasei, B.lactis [Probiotic] 1 ea PO DAILY 02/20/18 [History Confirmed 03/28/18] Lovastatin [Altoprev] 20 mg PO QODAY 02/20/18 [History Confirmed 03/28/18] Multivitamin,Therapeutic [Thera] 1 ea PO DAILY 02/20/18 [Histo ry Confirmed 03/28/18] Omeprazole [Prilosec] 20 mg PO DAILY 02/20/18 [History Confirmed 03/28/18] Docusate Sodium [Colace] 100 mg PO BID PRN PRN #10 cap 03/16/18 [Rx Confirmed 03/28/18] Oxycodone HCl/Ac etaminophen [Percocet 5/325] 1 - 2 tab PO Q4H PRN PRN #60 tab 03/16/18 [Rx Confirmed 03/28/18] PFSH Surgical History h/o left reverse total shoulder (Acute) Social History Smoking Status: Never sm oker HPI LEFT SHOULDER: Details: SUE HAWTHORNE is a 72 year old F here today for f/u left RTSA 03/11/18. Her pain is greatly improved since the surgery, her incision is healing well, the discoloration is improved and she has much better rom at the elbow, wrist and fingers. She is compliant with the sling at all times, she is removing the boot at home though and does have much pain when walking. There are occasions of tingling in the last couple fingers but it is relieved with elbow extension. Pain medication is used prn at night. ROS Musc Reports joint pain, Reports muscle weakness, Reports stiffn ess, Reports limited joint movement, Reports as per HPI Ortho Exam Left Shoulder Skin/Wound: Yes CDI Contralateral Normal: Yes SHOULDER: Patient is alert oriented 3 no acute distress. Appropriate eye contact and affect. Otherwise intact from C5-T2 distributions. Patient is able to fire her deltoid muscle against resistance. She has good strength in the biceps is point time. Able to pronate supinate. No changes otherwise distally. Incision clean dry and intact. X-rays:-Evaluated myself the patient-hardware otherwise well-seated well-placed status post left reverse total shoulder arthroplasty for f our-part proximal humerus fracture. Assessment AND Plan Problems 1. Orthopedic aftercare Z47.89 Plan Assessment: After orthopedic status post left total shoulder arthroplasty for four-part proximal h umerus fracture. Stable. Plan: At this point time we will see the patient back in 4 weeks. We will start gentle range of motion within the restrictions provided. Patient did have her subscapularis only put component attempt to be re-fixated to the stem into the shaft of the bone. The other portions of the cuff were not salvageable. Repeat radiographs at next. Any major issues return. Orders Orders: Coding Level of Care Code Global Post Op Diagnoses Orthopedic aftercare Z47.89 04/06/18 0932 <Electronically signed by Josemanuel Abreu DO> Date Josemanuel Abreu DO Cosigner Signature: Date (if applicable) CC: 30-Mar-2018 Inital Evaluation (1) - PT Result: Comments: See Note; NOTES: [facility] Physical Therapy [facility] [address] [place] [address]. [address] [place], [place] [address] Fax REHABILITATION SERVICES INITIAL EVALUATION MR#: [id number] Acct: [id number] Name: SUE HAWTHORNE Rep #: [id number] : 1945 72 From: Violetta Lazcano PT, Cert. MDT Referring DrMireille: Josemanuel Abreu DO Status: REG RCR Insurance: MEDICA RE PART A B ANTHEM Patient's Visit Information SUE HAWTHORNE is a 72 year old F referred to Physical Therapy by Josemanuel Abreu DO with a diagnosis of LEFT RTSA WITH SUBSCAP REPAIR. Date of Evaluation : 03/30/18 Physical Therapist: Violetta Lazcano - Visit Plan Frequency: 2-3x /Week Duration: 3 Months Plan: CHECK INCISION. *NO LEFT SHOULDER INTERNAL ROTATION, EXTERNAL ROTATION, ADDUCTION OR CROSS BODY MOVEMENT - SEE THE [facility] REVERSE TOTAL SHOULDER ARTHROPLASTY PROTOCOL IN FOLDER. MOIST HEAT AND COLD PACK TREATMENTS NEEDED. POSTURE CORRECTION/STRENGTHENING, INSTRUCTION IN APPROPRIA TE BODY MECHANICS AND ACTIVITY MODIFICATIONS. KIMBERLI UE ROM, STRETCHING AND STRENGTHENING. HEP INSTRUCTION. - Subjective Subjective: Diagnosis: LEFT RTSA WITH SUBSCAP REPAIR. MAR 15 2018 (2 WEEKS PO). Work /Leisure: RETIRED. 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 LIKES TO DO NEEDLE WORK. 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 READING. Disability: NO. Present symptoms: LEFT SHOULDER AND UPPER ARM PAIN. LEFT FOREARM AND HAND NUMBNESS/TINGLING. Present since: FEBRUARY 20 2017. Pain Scale: Worst - 5/10 Least - 0/10. Currently: 01/15. Commenced as a result of: FELL DOWN THE STEPS AND HIT THE DOOR FRAME WITH SHOULDER FX'IN G LEFT SHOULDER AND RIGHT FOOT. Symptoms at onset: LEFT SHOULDER AND RIGHT FOOT. RIGHT SHOULDER PAIN. NO NECK PAIN. Worse: CERTAIN POSITIONS. MOVING IT THE WRONG WAY. Better: SLING. ALEVE. Disturbed sle ep: YES - RLS. SLEEPING IN RECLINER. TRYING BED. WAKING UP WITH RIGHT SHOULDER PAIN TOO. Previous history/Previous treatment: HISTORY OF NECK PROBLEMS TREATED BY CHIROPRACTOR OFF AND ON FOR YEARS. NO HI STORY OF LEFT SHOULDER PROBLEMS PRIOR TO THIS. Dizziness: NO. Tinnitis: NO. Nausea: NO. Difficulty Swollowing: NO. Gait: NORMAL. Accidents: FALL DOWN STEPS AND BROKE LEFT ANKLE TREATED WITH ORIF ABOUT 5 YEARS AGO. Unexplained weight loss: NO. Imaging: YES - BEFORE AND AFTER SURGERY. PMH/Recent major surgery: KIMBERLI TKR'S 1999, 2004 KIMBERLI MASECTOMY FOR BREAST CANCER - NO CHEMO OR RADIATION. COPD. OTHER: PAT IENT IS RIGHT HAND DOMINANT. - Objective Sitting Posture/Standing Posture: POOR. Other Observations: PATIENT PREFERRED TO TAKE SLING OFF UPON ENTERING BUT REPOSITIONED HER ARM OFF AND ON THROUGHOUT SES MAYRA FOR COMFORT. Motor/ROM deficit: RUE ROM WFL. RIGHT UE 5/5 WITH MMT'ING EXCEPT RIGHT SHOULDER 4/5 AND PAIN WITH TESTING. NO ACTIVE FLEX LEFT SHOULDER. AROM LEFT WRIST AND HAND WFL. PATIENT IS ABLE T O FULLY ACTIVELY FLEX LEFT ELBOW WITH SHOULDER IR TO ABDOMEN BUT NOT IN SITTING OR LYING WHEN MOVING SHOULDER EXTERNALLY TOWARD MIDLINE. SHE HAS FULL ACTIVE ELBOW EXTENSION WITH SHOULDER IR TOO. PROM LE FT SHOULDER FLEXION IS 65 DEG. PASSIVE LEFT SHOULDER ER TO NEUTRAL WITH ELBOW AT SIDE. PATIENTS LEFT SHOULDER TESTING IS LIMITED BY PAIN. Sensory deficit: NO. Cervical Mvmt Loss: Flex: NIL. Pro: NIL. Ex t: MOD TO BHUPINDER. Ret: BHUPINDER. RSB: BHUPINDER. LSB: BHUPINDER. R Rot: MOD. L Rot: MOD. Postural strength: POOR - Goals Goal 1:: INCREASE FUNCTIONAL ROM OF LEFT UE Goal Time Frame: 8-12 Weeks Goal 2:: INCREASE FUNCTIONAL STRENGTH OF LEFT UE Goal Time Frame: 8-12 Weeks Goal 3:: DECREASE C/O LEFT SHOULDER AND UPPER ARM PAIN Goal Time Frame: 8-12 Weeks Goal 4:: INDEP HEP Goal Time Frame: 8-12 Weeks - Rehabilitation Kaya sanders Rehabilitation Potential: Good - Anticipated Interventions Patient/Client Instruction: Educate patient on: Condition, Plan of Care, Risk Factors, Benefits of Fitness Program For the Purpose of:: T o improve self management Therapeutic Exercise to Include: Strength training, Body mechanics, Postural training, Flexibilty training, Passive ROM, Active ROM, Scapular Strength/Stabilization Comment: PE R PROTOCOL For the Purpose of:: To decrease pain, To increase ROM, To improve nutrient delivery to tissue, To improve muscle performance and motor function, To improve ability to perform ADL's, To impro ve ability of physical actions for home/community/work/leisure Cryotherapy (ice pack, ice massage): Yes Thermo therapy (hot pack): Yes For the Purpose of:: To decrease pain, To decrease swelling/inflamm ation, To increase ROM Thank you for the opportunity to evaluate your patient. For Medicare and Medicare HMO plans, please review the plan of care and approve it. It will need to be FAXED BACK to u s at [phone] for Medicare purposes. Please let me know if there are questions or concerns regarding this plan of care. Physician Signature: Date: <Electronically signed by Violetta Lazcano PT, Cert. MDT> 03/30/18 1657 CC: Jessica Tanner DO; Josemanuel Abreu DO HUSSEIN Signed For Medicare only, b y signing this I certify the plan of care. Physicians Signature Date 28-Mar-2018 Foot 2 Views Result: Comments: See Note; NOTES: [facility] Imaging Services [address] [place] [address] Foot 2 Views MR#: [id number] Acct: [id number] Name: SUE HAWTHORNE Rep #: [id number] : F 72 From: Brett Hedrick DO PCP: Jessica Tanner DO Status: REG CLI Study: Foot 2 Views Date of Exam: 03/28/18 Exam# [id number] Ordering Dr: Josemanuel Abreu DO STUDY: X-RAY - RIGHT FOOT CLINICAL : Female, 72 years old. Foot pain. TECHNIQUE: 2 view(s) of the foot. COMPARISON: None. FINDINGS: There is generalized osteopenia. There are enthesophytes at the i nsertions of the Achilles tendon and plantar aponeurosis upon an otherwise normal calcaneus. Normal talus and tarsal bones. There is mild arthrosis visualized subtalar, talonavicular, calcaneocuboid, t arsal and tarsometatarsal articulations. Normal metatarsi. There is mild degenerative arthrosis of the metatarsophalangeal joint of the hallux . Normal tibial and fibular sesamoid bones. Normal interp halangeal joint of the great toe. Normal phalanges of the great toe. Normal second through fifth metatarsophalangeal joints. Normal interphalangeal joints and phalanges of the lesser toes. The soft ti ssue structures are unremarkable. RAD/Foot 2 Views IMPRESSION: Osteopenia and arthrosis of the right foot without fracture or dislocation. Elect ronically Signed: Brett Hedrick DO at 17:03 EDT Tel [phone], Service support , CC: Jessica Tanner DO; Josemanuel Abreu DO Principle Software Engineer: Signed 28-Mar-2018 Shoulder min 2 Views Result: Comments: See Note; NOTES: [facility] Imaging Services [address] [place] [address] Shoulder min 2 Views MR#: [id number] Acct: [id number] Name: SUE HAWTHORNE Rep #: [id number] : 1945 F 72 From: Brett Hedrick DO PCP: Jessica Tanner DO Status: REG CLI Study: Shoulder min 2 Views Date of Exam: 03/28/18 Exam# [id number] Ordering Dr: Josemanuel Abreu DO STUDY: X-RAY - LEFT SHOULDER REASON FOR EXAM: Female, 72 years old. Postop. TECHNIQUE: 2 view(s) of the shoulder. COMPARISON: Right shoulder, March 15, 2018. FINDINGS: Again seen is a left total shoulder arthroplasty. The prosthetic components are intact and articulate normally with each other. There is no loosening from the underlying bone. Again seen is small bony fragments along t he upper aspect of the humerus which appear unchanged from previous study. There is degenerative arthrosis of the acromioclavicular joint without inferior osseous spur formation. Normal acromion. The s oft tissue structures are unremarkable. The soft tissue air seen on the prior study no longer present. Normal visualized pulmonary apex. RAD/Pam ulder min 2 Views IMPRESSION: No major change when compared with study of March 15, 2018. Electronically Signed: Brett Hedrick DO at 17:02 EDT Tel [phone], Service support , CC: Jessica Tanner DO; Josemanuel Abreu DO Principle Software Engineer: Signed 23-Mar-2018 Orthopedic Visit Report Result: Comments: See Note; NOTES: [facility] Orthopaedics AND Sports Medicine [address] [place] [address] OFFICE VISIT Date of Service: 03/11/18 MR#: [id number] Acct: [id number] Name: SUE HAWTHORNE Rep #: [id number] : 1945 Provider: Josemanuel Abreu DO Age/Sex: 72/F [place] [facility] Status: Signed Intake Intake Visit Reasons: LEFT SHOULDER Is patient in pain?: Yes Santo rgies adhesive Adverse Reaction (Verified 03/11/18 10:06) Rash latex Adverse Reaction (Verified 03/11/18 10:06) Rash Medications Asmanex 2 puff IH DAILY 02/20/18 [History Confirmed 03/09/18] Calcium Carbonate/Vitamin D3 [Calcium 600-Vit D3 200 Tablet] 1 ea PO BID 02/20/18 [History Confirmed 03/09/18] Cholecalciferol (Vitamin D3) [Vitamin D3] 2,000 unit PO BID 02/20/18 [History Confirmed 03/09/18] Cinnamon Bark [Cinnamon] 1,000 mg PO DAILY 02/20/18 [History Confirmed 03/09/18] Citalopram Hydrobromide [Celexa] 20 mg PO DAILY 02/20/18 [History Confirmed 03/09/18] Fexofenadine HCl 180 mg PO DAILY [History Confirmed 03/09/18] Fluticasone Propionate [Flovent Diskus] 50 mcg IH QHS 02/20/18 [History Confirmed 03/09/18] L.acidoph,Paracasei, B.lactis [Probiotic] 1 ea PO DAILY 02/20/18 [History Confirmed 03/09/18] Lovastatin [Altoprev] 20 mg PO QODAY 02/20/18 [History Confirmed 03/09/18] Multivitamin,Therapeutic [Thera] 1 ea PO DAILY 02/20/18 [History Confirmed 03/09/18] Omeprazole [Prilosec] 20 mg PO DAILY 02/20/18 [History Confirmed 03/09/18] Docusate Sodium [Colace] 100 mg PO BID PRN PRN #10 cap 03/16/18 [Rx] Oxycodone HCl/Acetaminophen [Percocet 5/325] 1 - 2 tab PO Q4H PRN PRN #60 tab [Rx] proMETHazine tablet [Phenergan] 25 mg PO Q4H PRN PRN #10 tab 03/16/18 [Rx] morphine ER 15 mg tablet,extended release 15 mg PO Q12H #10 tab 03/17/18 [Rx] HPI LEFT SHOULDER: Details: SUE HAWTHORNE is a 72 year old F here today for left shoulder followup. She continues to have shoulder pain. She has been wearing her sling at all times. Patients bruising has improved. She would like to discus s her surgery options as Dr Currie was unable to do the procedure last week due to equipment issues. Denies numbness, tingling or other associated symptoms. ROS Const Reports system reviewed and no additional complaints, except as docu Eyes Reports system reviewed and no additional complaints, except as docu ENT Reports system reviewed and no additional complaints, except as docu Card Reports sys tem reviewed and no additional complaints, except as docu Resp Reports system reviewed and no additional complaints, except as docu GI Reports system reviewed and no additional complaints, except as doc u Reports system reviewed and no additional complaints, except as docu Musc Reports joint pain Skin/Breast Reports system reviewed and no additional complaints, except as docu Neuro Yes system review ed and no additional complaints, except as docu Psych Reports system reviewed and no additional complaints, except as docu Endo Reports system reviewed and no additional complaints, except as docu Ort ho Exam Right Shoulder Skin/Wound: Yes CDI Contralateral Normal: Yes Testing: Positive AROM-External Rotation at 90 0-60, PROM-External Rotation at side 0-60, PROM-Forward Elevation 0-180, PROM-External Rotation at 90 0-60, AROM-External Rotation at side 0-60 and AROM-Forward Elevation 0-180 Internal Rotation: Tip of Scapula Left Shoulder SHOULDER: General: well developed, well nourished in no acute d istress. Head: normocephalic and atraumatic Pulses: pulses normal in all 4 extremities. Neurologic: no focal deficits, cranial nerves II-XII grossly intact with normal sensation, reflexed, coordination, muscle strength and tone. Axillary Nodes: no significant adenopathy. Psych: alert and cooperative, normal mood and affect, normal attention span and concentration. Heart regular S1-S2 lungs clear to a uscultation bilaterally abdomen soft nontender nondistended with no gross specimen or megaly. Left shoulder-patient is a limited range of motion secondary to her four-part proximal humerus fracture. Ho wever the patient is able to fire her deltoid against my hand indicative the axillary nerve still intact. She has been sensation over the lateral deltoid. Patient able to flex and extend the elbow witho ut difficulty and perform prone supination. She has good sensation of the lateral enterocutaneous nerve. No extra adenopathy +[address] examination-patient has a comminuted four-part proximal humeru s fracture with an inferior fracture of the anatomic neck region. Minimal medial calcar is represented. Assessment AND Plan Problems 1. Closed 4-part fracture of proximal end of left humerus with rout ine healing, subsequent encounter S42.140U Plan Assessment: Left closed 4 part proximal humerus fracture. Plan: Point time the patient is here to re-sign her consent for a reverse total shoulder arthr oplasty. Patient was initially going to undergo a open reduction internal fixation versus possible reverse total shoulder arthroplasty for four-part proximal humerus fracture last week. However due to i mplant issues the patient at this point time is been transferred to my care for my partner. Patient is here to be counseling consented for the surgical procedure specifically which will include using a fracture stem and again performing a reverse total shoulder arthroplasty. Patient was informed that she may have some limited range of motion still despite the reverse total shoulder. We will make an at tempt to try to reimplant at least one of the tuberosity specifically the lesser. Her greater tuberosity showed some degree of comminution and I am not sure if try to reattach that is going to be diffic ult and/or be beneficial quite honestly in the long-term as the patient could gain stiffness trying to wait for the prostheses to heal into these fracture stems which is not my opinion quite likely. Sarah sanchez has been informed that there is always risk for DVT is very low and we will use aspirin for DVT prophylaxis. Ultimately the patient be able to flex and extend the elbow as tolerated and we will spence it her range of motion based on the integrity of the subscapularis. This fracture is roughly 3-4 weeks old going into the procedure time which may result in some increased time for the operative procedu re and risk for bleeding. This point time patient would like to proceed with intervention. Reviewed the pre-operative plans with the patient. Risks and benefits of the procedure were fully explained, i ncluding but not limited to infection, neurovascular injury, continued pain, arthritis, stiffness, need for further surgery, re-injury, DVT, PE, general risks of anesthesia, and loss of limb or life. Th e patient understands all the risks and does wish to proceed with written consent. Medications Discontinued: oxycodone ER Discontinued Reason: Discontinued by PCP/other phy10 mg PO Q12H S42.292A donell ch Coding Level of Care Code Off vis,est,level 4 Diagnoses Closed 4-part fracture of proximal end of left humerus with routine healing, subsequent encounter S42.292D Encounter type: subsequent encount er Fracture healing: with routine healing 03/23/18 1404 <Electronically signed by Josemanuel Abreu DO> Date Josemanuel Daily S ignature: Date (if applicable) CC: 09-Mar-2018 12 Lead Electrocardiogram Result: Comments: See Note; NOTES: [facility] Cardiovascular Services [address] [place] [address] 12 Lead EKG 03/04/18 1116 MR#: [id number] Acct: [id number] Name: SUE HAWTHORNE Rep #: [id number] : 1945 72 From: Trey Bob MD Attending Dr: Ginny Currie DO Status: PRE [facility] Ordering Dr: Ginny Currie DO Date: 03/04/18 Location: [facility] Sex: F C Admitted: Test Reason : P RE-OP Blood Pressure : / mmHG Vent. Rate : 081 BPM Atrial Rate : 081 BPM P-R Int : 142 ms QRS Dur : 082 ms QT Int : 344 ms P-R-T Axes : 068 038 083 degrees QTc Int : 399 ms Normal sinus rhythm No nspecific ST and T wave abnormality Abnormal ECG Confirmed by TREY BOB ([id number]), editor managing director REA DIAS ([id number]) on 03/08/2018 4:08:06 PM Referred By: Ginny Currie Confirmed By:TREY BOB 03/08/18 1608 Date Trey Bob MD CC: Ginny Currie DO; Jessica Tanner DO Signed 02-Mar-2018 Coronals Sag Multi Obl 3-D Rec Result: Comments: See Note; NOTES: [facility] Imaging Services [address] [place] [address] Coronals Sag Multi Obl 3-D Rec MR#: [id number] Acct: [id number] Name: SUE HAWTHORNE Rep #: [id number] : 1945 F 72 From: Kapil Gonzales MD PCP: Jessica Tanner DO Status: REG CLI Study: Coronals Sag Multi Obl 3-D Rec Date of Exam: 03/02/18 Exam# [id number] Ordering Dr: Nicole Currie DO ADDENDUM by Kapil Gonzales MD on 03/02/[address]/Coronals Sag Multi Obl 3-D Rec IMPRESSION: Impacted, comminuted, mildly displaced, intra-articular fracture of the proxim al humerus involving the neck and tuberosities Nondisplaced fracture at the coracoid process Electronically Signed: Kapil Gonzales MD at 21:56 EDT Tel , Service support [phone], 03/02/182202 Date cc: Ginny Currie DO; Jessica Tanner DO * Signed ADDENDUM by Kapil Gonzales MD on 03/02/18 at 2156 ADDENDUM There is nondisplaced fracture at the coracoid (image 17/132 axial). The remainder of the scapula is intact. 03/02/18 6 Date cc: Ginny Currie DO; Jessica Tanner DO * Signed STUDY: CT LEFT UPPER EXTREMITY / HUMERUS REASON FOR EXAM: Female, 72 years old. Fracture RADIATION DOSAGE (If Supplied By [facility]): CTDIvol = ( 28.83 ) mGy, DLP = ( 1010.63 ) mGycm TECHNIQUE: High resolution transaxial imaging was performed without the administration of intravenous contrast material. Sagittal, coronal and t hree-dimensional reconstructions are performed. COMPARISON: X-ray 02/24/2018 FINDINGS: There is a comminuted, impacted fracture of the proximal humerus involving the neck and tuberosities. There is involvement of the articular surface (image 18, 20, 22, 27/132, 59, 61/127 coronal recon). There is mild displacement. There is fluid at the glenohumeral joint and the s houlder is somewhat subluxed inferiorly (image 16/132 axial, 64/127 coronal recon). There is no osseous destruction. The acromioclavicular joint is intact. The periarticular soft tissue structures ar e intact. CT/Coronals Sag Multi Obl 3-D Rec IMPRESSION: Impacted, comminuted, mildly displaced, intra-articular fracture of the proximal humerus involving the neck and tuberosities Electronically Signed: Kapil Gonzales MD at 21:54 EDT Tel , Service support , CC: Ginny Currie DO; Jessica Tanner DO Principle Software Engineer: Signed 02-Mar-2018 Coronals Sag Multi Obl 3-D Rec Result: Comments: See Note; NOTES: [facility] Imaging Services [address] [place] [address] Coronals Sag Multi Obl 3-D Rec MR#: [id number] Acct: [id number] Name: SUE HAWTHORNE Rep #: [id number] : 1945 F 72 From: Kapil Gonzales MD PCP: Jessica Tanner DO Status: REG CLI Study: Coronals Sag Multi Obl 3-D Rec Date of Exam: 03/02/18 Exam# [id number] Ordering Dr: Nicole Currie DO STUDY: CT LEFT UPPER EXTREMITY / HUMERUS REASON FOR EXAM: Female, 72 years old. Fracture RADIATION DOSAGE (If Supplied By Facility): CTDIvol = ( 28.83 ) mGy, DLP = ( 1010.63 ) mGycm TECHNIQUE : High resolution transaxial imaging was performed without the administration of intravenous contrast material. Sagittal, coronal and three-dimensional reconstructions are performed. COMPARISON: X-ray 02/24/2018 FINDINGS: There is a comminuted, impacted fracture of the proximal humerus involving the neck and tuberosities. There is involvement of the articular surfa ce (image 18, 20, 22, 27/132, 59, 61/127 coronal recon). There is mild displacement. There is fluid at the glenohumeral joint and the shoulder is somewhat subluxed inferiorly (image 16/132 axial, 64/127 coronal recon). There is no osseous destruction. The acromioclavicular joint is intact. The periarticular soft tissue structures are intact. CT/Coronals Sag Multi Obl 3-D Rec IMPRESSION: Impacted, comminuted, mildly displaced, intra-articular fracture of the proximal humerus involving the neck and tuberosities Electronically Signed: Kapil Gonzales MD at 21:54 EDT Tel , Service support , CC: Ginny Currie DO; Jessica Tanner DO Principle Software Engineer: Signed 02-Mar-2018 Extremity Upper without Contra Result: Comments: See Note; NOTES: [facility] Imaging Services [address] [place] [address] Extremity Upper without Contra MR#: [id number] Acct: [id number] Name: SUE HAWTHORNE Rep #: [id number] : 1945 F 72 From: Kapil Gonzales MD PCP: Jessica Tanner DO Status: REG CLI Study: Extremity Upper without Contra Date of Exam: 03/02/18 Exam# [id number] Ordering Dr: Nicole Currie DO ADDENDUM by Kapil Gonzales MD on 03/02/[address]/Extremity Upper without Contra IMPRESSION: Impacted, comminuted, mildly displaced, intra-articular fracture of the proxim al humerus involving the neck and tuberosities Nondisplaced fracture at the coracoid process Electronically Signed: Kapil Gonzales MD at 21:56 EDT Tel , Service support [phone], 03/02/182202 Date cc: Ginny Currie DO; Jessica Tanner DO * Signed ADDENDUM by Kapil Gonzales MD on 03/02/18 at 2150 ADDENDUM There is nondisplaced fracture at the coracoid (image 17/132 axial). The remainder of the scapula is intact. 03/02/18 215 6 Date cc: Ginny Currie DO; Jessica Tanner DO * Signed STUDY: CT LEFT UPPER EXTREMITY / HUMERUS REASON FOR EXAM: Female, 72 years old. Fracture RADIATION DOSAGE (If Supplied By [facility]): CTDIvol = ( 28.83 ) mGy, DLP = ( 1010.63 ) mGycm TECHNIQUE: High resolution transaxial imaging was performed without the administration of intravenous contrast material. Sagittal, coronal and t hree-dimensional reconstructions are performed. COMPARISON: X-ray 02/24/2018 FINDINGS: There is a comminuted, impacted fracture of the proximal humerus involving the neck and tuberosities. There is involvement of the articular surface (image 18, 20, 22, 27/132, 59, 61/127 coronal recon). There is mild displacement. There is fluid at the glenohumeral joint and the s houlder is somewhat subluxed inferiorly (image 16/132 axial, 64/127 coronal recon). There is no osseous destruction. The acromioclavicular joint is intact. The periarticular soft tissue structures ar e intact. CT/Extremity Upper without Contra IMPRESSION: Impacted, comminuted, mildly displaced, intra- articular fracture of the proximal humerus involving the neck and tuberosities Electronically Signed: Kapil Gonzales MD at 21:54 EDT Tel , Service support , CC: Ginny Currie DO; Jessica Tanner DO Principle Software Engineer: Signed 02-Mar-2018 Extremity Upper without Contra Result: Comments: See Note; NOTES: [facility] Imaging Services [address] [place] [address] Extremity Upper without Contra MR#: [id number] Acct: [id number] Name: SUE HAWTHORNE Rep #: [id number] : 1945 F 72 From: Kapil Gonzales MD PCP: Jessica Tanner DO Status: REG CLI Study: Extremity Upper without Contra Date of Exam: 03/02/18 Exam# [id number] Ordering Dr: Nicole Currie DO STUDY: CT LEFT UPPER EXTREMITY / HUMERUS REASON FOR EXAM: Female, 72 years old. Fracture RADIATION DOSAGE (If Supplied By Facility): CTDIvol = ( 28.83 ) mGy, DLP = ( 1010.63 ) mGycm TECHNIQUE : High resolution transaxial imaging was performed without the administration of intravenous contrast material. Sagittal, coronal and three-dimensional reconstructions are performed. COMPARISON: X-ray 02/24/2018 FINDINGS: There is a comminuted, impacted fracture of the proximal humerus involving the neck and tuberosities. There is involvement of the articular surfa ce (image 18, 20, 22, 27/132, 59, 61/127 coronal recon). There is mild displacement. There is fluid at the glenohumeral joint and the shoulder is somewhat subluxed inferiorly (image 16/132 axial, 64/127 coronal recon). There is no osseous destruction. The acromioclavicular joint is intact. The periarticular soft tissue structures are intact. CT/Extremity Upper without Contra IMPRESSION: Impacted, comminuted, mildly displaced, intra-articular fracture of the proximal humerus involving the neck and tuberosities Electronically Signed: Kapil Gonzales MD at 21:54 EDT Tel , Service support , CC: Ginny Currie DO; Jessica Tanner DO Principle Software Engineer: Signed 01-Mar-2018 Orthopedic Visit Report Result: Comments: See Note; NOTES: [facility] Orthopaedics AND Sports Medicine [address] [place] [address] OFFICE VISIT Date of Service: 02/24/18 MR#: [id number] Acct: [id number] Name: SUE HAWTHORNE Rep #: [id number] : 1945 Provider: Ginny Currie DO Age/Sex: 72/F Location: [facility] Status: Signed Intake Intake Visit Reasons: LEFT SHOULDER Is patient in pain?: Yes P ain scale (1-10): 6 Allergies adhesive Adverse Reaction (Verified 03/01/18 11:25) Rash Medications Asmanex 2 puff IH DAILY 02/20/18 [History Confirmed 02/24/18] Calcium Carbonate/Vitamin D3 [Calcium 600-Vit D3 200 Tablet] 1 ea PO BID 02/20/18 [History Confirmed 02/24/18] Cholecalciferol (Vitamin D3) [Vitamin D3] 2,000 unit PO BID 02/20/18 [History Confirmed 02/24/18] Cinnamon Bark [Cinnamon] 1,000 mg PO DAILY 02/20/18 [History Confirmed 02/24/18] Citalopram Hydrobromide [Celexa] 20 mg PO DAILY 02/20/18 [History Confirmed 02/24/18] Fexofenadine HCl 180 mg PO DAILY 02/20/18 [History Confirmed 02/06 07/26] Fluticasone Propionate [Flovent Diskus] 50 mcg IH QHS 02/20/18 [History Confirmed 02/24/18] L.acidoph,Paracasei, B.lactis [Probiotic] 1 ea PO DAILY 02/20/18 [History Confirmed 02/24/18] Lovastatin [Altoprev] 20 mg PO QHS 02/20/18 [History Confirmed 02/24/18] Multivitamin,Therapeutic [Thera] 1 ea PO DAILY 02/20/18 [History Confirmed 02/24/18] Omeprazole [Prilosec] 20 mg PO DAILY 02/20/18 [History Confirmed 02/24/18] oxycodone-acetaminophen 5 mg-325 mg tablet See Label Instructions PO Q6H PRN PRN 7 Days #56 tab 02/25/18 [Rx Confirmed 03/01/18] PFSH Social History Smoking Status: Never smoker HPI LEFT SHOULDER: Details: SUE HAWTHORNE is a 72 year old F here today for f/u to left shoulder and right foot injury from a fall on Wednesday. She was taken to the ED and presents in the sling and cam boot from the hospital. She has significant swelling and discoloration from the left side of her chest, into the axilla, shoulder,elbow and forearm. Her fingers are swollen but she is able to make a fi st and move the wrist. Limited rom at the elbow secondary to the pain and swelling. She states that she is getting sharp shooting pain in the shoulder even with small movements and has been compliant wi th the sling. Her foot is not very painful and she is using the pain medication as prescribed, sleeping in the recliner and trying to rest as much as possible. Denies numbness, tingling or other associa carli symptoms. Ortho Exam Left Shoulder Date of injury: 02/20/18 Skin/Wound: Yes CDI, Yes ecchymosis Contralateral Normal: Yes Testing: No AROM-Forward Elevation 0-180, No AROM-External Rotation at 90 0 -60, No AROM-External Rotation at side 0-60, No PROM-External Rotation at side 0-60, No PROM-Forward Elevation 0-180, No PROM-External Rotation at 90 0-60 SHOULDER: significant bruising and swelling fro m left side chest to forearm, patient in a sling. Assessment AND Plan 1. Other closed displaced fracture of proximal end of left humerus, initial encounter S42.292A Plan X-rays were reviewed. There is displaced proximal humerus fracture that needs repaired, explained that she has too much swelling for surgery now. Instruted to work on elbow rom and that she shoud walk in the boot and remove if neede d to have less jostling of the shoulder. Reviewed the post op restrictions and that it can take up to a year to have recovery and rom enough to do ADLs. Reviewed the pre-operative plans with the patien t. Risks and benefits of the procedure were fully explained, including but not limited to infection, neurovascular injury, continued pain, arthritis, stiffness, need for further surgery, re-injury, DVT, PE, general risks of anesthesia, and loss of limb or life. The patient understands all the risks and does wish to proceed with written consent. Follow up in a week for swelling check or sooner if pain , swelling, numbness or associated symptoms, or concerns develop. All questions answered. Patient in agreement of plan. Orders Orders: Plan Detail Other Orders Orders: Coding Level of Care Code Off vi s,est,level 4 Diagnoses Other closed displaced fracture of proximal end of left humerus, initial encounter S42.292A Encounter type: initial encounter Fracture alignment: displaced Fracture morphology: other fracture 03/01/18 1237 <Electronically signed by Ginny Currie DO> Date Ginny Currie DO Cosigner Signature: Date (if applicable) CC: 24-Feb-2018 Elbow min 3 Views Result: Comments: See Note; NOTES: [facility] Imaging Services [address] [place] [id number] Elbow min 3 Views MR#: [id number] Acct: [id number] Name: SUE HAWTHORNE Rep #: [id number] DO B: 1945 F 72 From: Shanell Branch MD PCP: Jessica Tanner DO Status: REG CLI Study: Elbow min 3 Views Date of Exam: 02/24/18 Exam# [id number] Ordering Dr: Ginny Currie DO STUDY: X-RAY - LEFT EL BOW REASON FOR EXAM: Female, 72 years old. Fall down stairs 4 days ago. Pain. TECHNIQUE: 3 view(s) of the elbow. COMPARISON: None. FINDINGS: There is generalized osteopenia. Normal visualized humerus, radius and ulna. Normal radiocapitellar and ulnotrochlear articulations. The soft tissue structures are unremarkable. RAD/Elbow min 3 Views IMPRESSION: Osteopenia with no acute abnormality. Electronically Signed: Shanell Branch MD at 12:41 EDT , Service support , CC: Ginny Currie DO; Jessica Tanner DO Principle Software Engineer: Signed 24-Feb-2018 Shoulder min 2 Views Result: Comments: See Note; NOTES: [facility] Imaging Services [address] [place] [address] Shoulder min 2 Views MR#: [id number] Acct: [id number] Name: SUE HAWTHORNE Rep #: [id number] : 1945 F 72 From: Mario Salguero MD PCP: Jessica Tanner DO Status: REG CLI Study: Shoulder min 2 Views Date of Exam: 02/24/18 Exam# [id number] Ordering Dr: Ginny Currie DO STUDY: X-RAY - LEFT SHOULDER REASON FOR EXAM: Fracture. TECHNIQUE: 3 view(s) of the shoulder. COMPARISON: Radiographs 02/20/2018. FINDINGS: Normal glenohumeral articulation. Nor mal acromioclavicular joint. Normal acromion. There is no significant change of the comminuted proximal humeral fracture with medial displacement of the humeral shaft. The soft tissue structures are u nremarkable. Normal visualized pulmonary apex. RAD/Shoulder min 2 Views IMPRESSION: Comminuted proximal humeral fracture. Electronically Signed : Mario Salguero MD at 12:42 EDT Tel , Service support , CC: Ginny Currie DO; Jessica Tanner DO Principle Software Engineer: Signed 20-Feb-2018 Discharge Instruction Result: Comments: See Note; NOTES: [facility] Medical Records Department [address] [place] [address] Discharge Instruction 02/20/18 1358 MR#: [id number] Acct: [id number] Name: ESTRELLITA HAWTHORNE Rep #: [id number] : 1945 72 From: Chelle Zaragoza MD PCP: Jessica Tanner DO Status: REG ER ED Disposition - Plan for ED Patient: Chief Complaint: Fall Instructions: ED Mechanical Fal l, ED Fx Shoulder, ED Fx Foot Prescriptions: Oxycodone HCl/Acetaminophen [Percocet 5/325] 1 tablet PO Q6H PRN PRN 5 Days #20 tablet PRN Reason: Pain Referrals: Jessica Tanner DO [Primary Care Provider ] - Ginny Currie DO [STAFF PHYSICIAN] - What to do if you have Problems For any increased pain, shortness of breath, bleeding, nausea or vomiting, chest pain, or any unexpected problems, contact your Primary Care Provider. Call [facility] ([phone]) or report to the closest Emergency Room. Call 911 if necessary. 02/20/18 1401 <Electronically signed by Chelle Zaragoza MD&amp ;#62; Date Chelle Zraagoza MD Cosigner Signature (If Indicated): Date CC: Jessica Tanner DO 20-Feb-2018 Emergency Department Summary Result: Comments: See Note; NOTES: [facility] Medical Records Department [address] [place] [address] Emergency Department Summary 02/20/18 1128 MR#: [id number] Acct: [id number] Name: SUE HAWTHORNE Rep #: [id number] : 1945 72 From: Chelle Zaragoza MD PCP: Jessica Tanner DO Status: REG ER - ER Visit Summary Date of Service: 02/20/18 Chief Complaint: Fall History of Prese nt Illness: The patient is a 72 F presenting after fall. Patient states she was wearing high heels and tripped on the carpet. She fell down a half a flight of stairs. She did not hit her head or lose co nsciousness. She complains of left shoulder and right foot pain. She took a pain pill before arriving but she believes it was . Denies other complaints. Physical Examination: Vitals are stable. Patient is afebrile. Alert no acute distress. HEENT exam is unremarkable. Neck is nontender Lungs are clear and equal bilaterally. Heart is regular rate and rhythm. Abdomen is soft nontender nondistende d. Extremities right mid foot tenderness, left anterior shoulder and proximal humerus tenderness, neurovascularly intact distally Skin is warm and dry. No focal neurologic deficit. Remainder of exam is unremarkable. Emergency Department Course and Treatment: Patient is given morphine, Zofran IV. X-ray of the right foot shows there appears to be an acute nondisplaced fracture of the base of the seco nd metatarsal extending into the tarsometatarsal joint. Left shoulder x-ray shows there is an acute fracture of the humeral neck and head. Patient is given a sling and swath. She is given a boot orthosi s. Discussed with Dr. Currie. She reviewed her images. She states the patient can weight-bear as tolerated with the boot. She will follow-up in the office. She is given a prescription for Percocet. She is advised return to ED if worsening complaints. Disposition: Discharge home Impression: Right second metatarsal fracture, left proximal humerus fracture, status post mechanical fall This note was generated with [employer] software. It may contain incorrect words, spelling, and punctuation that were not noted in review of the chart prior to signing ED Disposition - Plan for ED Patie nt: Chief Complaint: Fall Referrals: Jessica Tanner DO [Primary Care Provider] - What to do if you have Problems For any increased pain, shortness of breath, bleeding, nausea or vomiting, chest pa in, or any unexpected problems, contact your Primary Care Provider. Call [facility] ([phone]) or report to the closest Emergency Room. Call 911 if necessary. 02/20/18 1358 <Electron ically signed by Chelle Zaragoza MD> Date Chelle Zaragoza MD Cosigner Signature (If Indicated): Date CC: Jessica Tanner DO 20-Feb-2018 Foot min 3 Views Result: Comments: See Note; NOTES: [facility] Imaging Services [address] [place] [address] Foot min 3 Views MR#: [id number] Acct: [id number] Name: SUE HAWTHORNE Rep #: [id number] : 1945 F 72 From: Rona Bowen MD PCP: Jessica Tanner DO Status: PRE ER Study: Foot min 3 Views Date of Exam: 02/20/18 Exam# [id number] Ordering Dr: Chelle Zaragoza MD STUDY: X-RAY - RIGHT FOOT CLINICAL: Female, 72 years old. pt. fell down the steps, pain TECHNIQUE: 3 view(s) of the foot. COMPARISON: April 18, 2015 FINDINGS: There are plantar and posterior calcaneal spurs. There is degenerative joint disease of the tibiotalar, naviculocuneiform, tarsometatarsal joints. There appears to be an acute nondisplaced fracture of the base of the second metatars al extending into the tarsometatarsal joint. There is degenerative arthrosis of the metatarsophalangeal joint of the hallux . Normal tibial and fibular sesamoid bones. Normal interphalangeal joint of t he great toe. Normal phalanges of the great toe. Normal second through fifth metatarsophalangeal joints. Normal interphalangeal joints and phalanges of the lesser toes. ____ RAD/Foot min 3 Views IMPRESSION: There appears to be an acute nondisplaced fracture of the base of the second metatarsal extending into the tarsometatarsal joint. Electronical ly Signed: Rona Bowen MD at 12:18 EDT , Service support , CC: Chelle Zaragoza MD; Jessica Tanner DO Principle Software Engineer: Signed 20-Feb-2018 Shoulder min 2 Views Result: Comments: See Note; NOTES: [facility] Imaging Services [address] [place] [address] Shoulder min 2 Views MR#: [id number] Acct: [id number] Name: SUE HAWTHORNE Rep #: [id number] : 1945 F 72 From: Rona Bowen MD PCP: Jessica Tanner DO Status: PRE ER Study: Shoulder min 2 Views Date of Exam: 02/20/18 Exam# [id number] Ordering Dr: Chelle Zaragoza MD STUDY: X-RAY - LEFT SHOULDER REASON FOR EXAM: Female, 72 years old. pt. fell down the steps, pain TECHNIQUE: 2 view(s) of the shoulder. COMPARISON: None. FINDINGS: Normal glenohumer al articulation. There is degenerative arthrosis of the acromioclavicular joint without inferior osseous spur formation. Normal acromion. There is an acute fracture of the humeral neck and head. There is 1.9 cm of medial displacement of the shaft relative to the head and 1.0 cm of impaction of the shaft into the head. The soft tissue structures are unremarkable. Normal visualized pulmonary apex. __ RAD/Shoulder min 2 Views IMPRESSION: There is an acute fracture of the humeral neck and head. Electronically Signed: Rona Bowen MD at 1 2:20 EDT , Service support , CC: Chelle Zaragoza MD; Jessica Tanner DO Principle Software Engineer: Signed 22-Feb-2017 Chest PA and Lateral Result: Comments: See Note; NOTES: [facility] Imaging Services [address] [place] [address] [place] 4d Chest PA and Lateral MR#: [id number] Acct: [id number] Name: SUE HAWTHORNE Rep # : [id number] : 1945 F 71 From: Naomi Strauss MD PCP: Jessica Tanner DO Status: REG CLI Study: Chest PA and Lateral Date of Exam: 02/22/17 Exam# [id number] Ordering Dr: Tamia Wood CASH APPLICATIONS ANALYST-Sussy ILA DY: X-RAY CHEST REASON FOR EXAM: Female, 71 years old. HX BRONCHITIS, ASTHMA HAS HAD FLU 3 X THIS YEAR TECHNIQUE: Frontal and lateral views of the chest. COMPARISON: None. FINDINGS: The lungs are clear and expanded. There is no demonstrated pleural abnormality. Normal size heart. Normal mediastinum and ester. Normal visualized pulmonary arteries. Normal visuali zed aortic arch and descending thoracic aorta. There are diffuse degenerative changes of the visualized thoracic spine. There is degenerative osteoarthritis of the bilateral shoulders. There is no dem onstrated abnormality of the visualized soft tissue structures of the upper abdomen. RAD/Chest PA and Lateral IMPRESSION: Degenerative changes, a s described above. No demonstrated acute cardiopulmonary process. Electronically Signed: Naomi Strauss MD at 11:55 EDT Tel , Service support , CC: Tamia Wood; Jessica Tanner DO Principle Software Engineer: Signed 12-Nov-2016 Abdomen/Pelvis WITH Contrast Result: Comments: See Note; NOTES: [facility] Imaging Services [address] [place] [address] [place] 4d Abdomen/Pelvis WITH Contrast MR#: [id number] Acct: [id number] Name: SUE HAWTHORNE Rep #: [id number] : 1945 F 71 From: Brett Hedrick DO PCP: Doug Barrett Status: REG CLI Study: Abdomen/Pelvis WITH Contrast Date of Exam: 11/12/16 Exam# [id number] Ordering Dr: Doug Barrett ILA DY: CT ABDOMEN AND PELVIS WITH CONTRAST REASON FOR EXAM: Female, 71 years old. Elevated tumor markings. History of breast cancer with bilateral mastectomy 5 years ago. RADIATION DOSAGE (If Supplied By Facility): CTDIvol = ( 15.26 ) mGy, DLP = ( 1019.4 ) mGycm TECHNIQUE: Transaxial images were obtained from the dome of the diaphragm to the symphysis pubis with oral contrast. 100 ml of Isovue 300 con trast was administered. Sagittal and coronal images were reconstructed. Individualized dose optimization techniques were used for this CT. COMPARISON: CT of the abdomen and pelvis, May 08, 2016. FINDINGS: The visualized lung bases are unremarkable. The visualized portions of the heart are within normal limits. There is evidence of bilateral mastectomy with left b reast implant. There are stable cysts within the liver. There is no evidence for enhancing mass. Normal gallbladder and extrahepatic biliary system. Normal spleen. Normal pancreas. Normal bilateral ad renal glands. Normal right kidney. There is continued mild dilatation of the lower pole, collecting system when compared prior study. The left kidney is otherwise unremarkable. There is a type I hiata l hernia. The distal stomach is unremarkable. Normal small intestine. Normal colon. There is non-visualization of the appendix. Normal abdominal aorta. Normal inferior vena cava. Normal retroperitoneum . The urinary bladder is poorly distended. The uterus and ovaries. There is no pelvic lymphadenopathy. No free air or free fluid is seen within the peritoneal cavity. Normal abdominal wall. There are diffuse degenerative changes of the visualized lumbar spine. CT/Abdomen/Pelvis WITH Contrast IMPRESSION: 1. No evidence of acute intra-abdominal or pelvic process. 2. No change in findings when compared to prior study. Electronically Signed: Brett Hedrick DO at 15:08 EST Tel [phone], Service support [phone], CC: Doug Barrett Principle Software Engineer: Signed 30-Jun-2016 Wrist min 3 Views Result: Comments: See Note; NOTES: [facility] Imaging Services [address] [place] [address] [facility] 4d Wrist min 3 Views MR#: [id number] Acct: [id number] Name: SUE HAWTHORNE Mayda Rep #: [id number] : 1945 F 70 From: Omar Salazar MD PCP: Clemencia Ferreira DO Status: REG CLI Study: Wrist min 3 Views Date of Exam: 06/30/16 Exam# [id number] Ordering Dr: Ginny Currie DO STUDY: X-RA Y - RIGHT WRIST REASON FOR EXAM: Female, 70 years old. Pain on the thumb site. No trauma TECHNIQUE: 3 view(s) of the wrist were obtained. COMPARISON: None. FINDIN GS: Normal visualized distal radius and ulna. Normal radiocarpal articulation. Normal distal radioulnar articulation. Normal carpal bones. There are degenerative changes of the triscaphe joint. There is diffuse osteopenia Normal carpometacarpal articulation of the thumb. Normal second through fifth carpometacarpal articulations. Normal visualized metacarpal bones. The soft tissue structures are unr emarkable. RAD/Wrist min 3 Views IMPRESSION: Osteopenia. Osteoarthritis of the triscaphe joint Electronically Signed: Omar Salazar MD, FA CR at 14:28 EDT , Service support [phone], CC: Ginny Currie DO; Clemencia Ferreira DO Principle Software Engineer: Signed 29-May-2016 OT D/C Summary Result: Comments: See Note; NOTES: [facility] Occupational Therapy [facility] [address] [place], [place] [address] Fax REHABILITATIO N SERVICES DISCHARGE SUMMARY MR#: [id number] Acct: [id number] Name: SUE HAWTHORNE Rep #: [id number] : 1945 70 From: Richelle Myers Referring Dr.: Clemencia Ferreira DO Status: REG RCR Eval D ate: Discharge Date: HP - OT D/C Summary It has been my pleasure to treat SUE HAWTHORNE under orders from Clemencia Ferreira DO, for the diagnosis of DeQuervains Tenosynovitis for a total of 7 visit(s ). Please see the following information for a summary of their discharge status. 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 Goal:: Pt will report no compensation for daily occupations - Plan Plan: d/c pt as she has plateaued with progress - D/C Information Discharge Comments: Pt has increased her pinch strength but pain is still limiting factor-after 7 visits-d/c pt as she has plateaued with progress rec'd she return to doctor for further te sting If there are questions or concerns regarding this patient's occupational therapy, please fell free to call me at [phone]. Thank you for the referral of this patient. Sincerely, Richelle Myers <Electronically signed by Richelle Myers > 05/29/16 1224 CC: Clemencia Ferreira DO MK Signed 13-May-2016 OT General Evaluation Result: Comments: See Note; NOTES: [facility] Occup[facility] [address] [place] [address] Fax REHABILITATIO N SERVICES INITIAL EVALUATION MR#: [id number] Acct: [id number] Name: SUE HAWTHORNE Rep #: [id number] : 1945 70 From: Richelle Myers Referring Dr.: Clemencia Ferreira DO Status: REG RCR Insur ance: MEDICARE PART A B Eval Date: ANTHEM Patient's Visit Information SUE HAWTHORNE is a 70 year old F, referred to Occupational Therapy by Clemencia Ferreira DO,, with a diagnosis of DeQuervains Ten osynovitis. Date of Evaluation: 05/08/16 Occupational Therapist: Richelle Myers - Visit Plan Frequency: 1-2x /Week Duration: 3 Weeks - Subjective Subjective: Pt states she has had pain in ri ght wrist for about 2-3 weeks ago. Pain is getting worse and doing BADLs and IADLS along with knit,painting,and quilting - Pain Right Wrist 2 Pain Intensity Range: 7 - ROM Wrist: left 60/65 Right 60/50 - Strength Apartment Rental Clerk: left 55# right 60# Lateral Pinch: left 12# right 8# Tripod Pinch: left 12# right 4# - Special Tests WHAT Test: positive - Hand/Wrist Evaluation Total Score of Pa in AND Functional Sections: 62 - Goals Goal:: pt will demo increase in Right wrist ROM by 10 degrees to increase ind with self care Goal:: Pt will report no pain greater than 2/10 with use of daily occupation. Goal:: Pt will report no compensation for daily occupations - Rehabilitation Rehabilitation Potential: Good - Anticipated Interventions Anticipated Interventions: A/AAROM/PROM, Trigge rpoint Release, Modalities Thank you for the opportunity to evaluate your patient. For Medicare and Medicare HMO plans, please review the plan of care and approve it. It will need to be FAXED [employer] to us at [phone] for Medicare purposes. Please let me know if there are questions or concerns regarding this plan of care. Physician Signature: ____Date: <Electronically signed by Richelle Myers > 05/13/16 0759 CC: Clemencia Ferreira DO MK Signed For Medicare only, by signing this I certify the plan of care. Physicians Signature Date 08-May-2016 Abdomen WITH IV Contrast Result: Comments: See Note; NOTES: [facility] Imaging Services [address] [place] [address] [place] 4d Abdomen WITH IV Contrast MR#: [id number] Acct: [id number] Name: SUE LEVIN Rep #: [id number] : 1945 F 70 From: Ba Calvillo MD PCP: Clemencia Ferreira DO Status: REG CLI Study: Abdomen WITH IV Contrast Date of Exam: 05/08/16 Exam# [id number] Ordering Dr: Clemencia Craig DO STUDY: CT ABDOMEN WITH CONTRAST REASON FOR EXAM: Female, 70 years old. Elevated alpha-fetoprotein with history of breast cancer. Prior tubal ligation and one ovary removed. RADIATIO N DOSAGE (If Supplied By Facility): CTDIvol = ( 14.42 ) mGy, DLP = ( 668.22 ) mGycm TECHNIQUE: Transaxial images were obtained post I.V. administration of 100 ml of Isovue 300 contrast, and with ora l contrast. Sagittal and coronal images were reconstructed. Individualized dose optimization techniques were used for this CT. COMPARISON: MR abdomen 05/31/[address] abdomen pelvis dated 12/23/12 __ FINDINGS: The visualized lung bases are unremarkable. The visualized portions of the heart are within normal limits. Left augmentation mammoplasty. Redemonstrated hepatic cysts, the largest in the right hepatic lobe measuring 1.7 cm. Normal gallbladder and extrahepatic biliary system. Normal spleen. Normal pancreas. Normal bilateral adrenal glands. Normal right kidney. Normal left kidney. There is a small hiatal hernia. Normal small intestine. Abundant colonic stool rule out constipation. There is non- visualization of the appendix. Normal abdominal aorta. Normal inferior vena cava. Normal retroperitoneum. Normal abdominal wall. There are diffuse degenerative changes of the visualized lumbar spine. IMPRESS ION: No CT evidence of an acute intra-abdominal or pelvic process. Abundant colonic stool, rule out constipation. Redemonstrated hepatic cysts and left augmentation mammoplasty. Electronically Si gned: Ba Calvillo MD at 16:42 EDT , Service support [phone], CC: Clemencia Ferreira DO Principle Software Engineer: Signed 05-May-2016 Chest PA and Lateral Result: Comments: See Note; NOTES: [facility] Imaging Services [address] [place] [address] [place] 4d Chest PA and Lateral MR#: [id number] Acct: [id number] Name: Sussy HAWTHORNE KARTHIK [place] Rep #: [id number] : 1945 F 70 From: Omar Salazar MD PCP: Clemencia Ferreira DO Status: REG CLI Study: Chest PA and Lateral Date of Exam: 05/05/16 Exam# [id number] Ordering Dr: Clemencia Ferreira DO STUDY: X-RAY CHEST REASON FOR EXAM: Female, 70 years old. No chest complaints. History of bilateral mastectomy for cancer. Yearly checkup TECHNIQUE: PA and lateral views of the chest. COMP ARISON: Prior chest x-ray from 07-27-12. FINDINGS: The lungs are clear and expanded. There is no demonstrated pleural abnormality. Normal size heart. Normal m ediastinum and ester. Normal visualized pulmonary arteries. Normal visualized aortic arch and descending thoracic aorta. There are mild degenerative changes of the visualized thoracic spine. Normal visualized ribs, clavicles, and shoulders. There is no demonstrated abnormality of the visualized soft tissue structures of the upper abdomen. IMPRESSION: Norm al x-ray examination of the chest. Stable since last examination. Electronically Signed: Omar Salazar MD, FACR at 16:55 EDT , Service support [phone], Fax RAD/Chest PA and Lateral IMPRESSION: Normal x-ray examination of the chest. Stable since last examination. Electronically Signed: Omar Salazar MD, FACR 05/05 at 16:55 EDT , Service support [phone], CC: Clemencia Ferreira DO Principle Software Engineer: Signed 31-May-2015 Abdomen WITH and W/O Contrast Result: Comments: See Note; NOTES: [facility] Imaging Services [address] [place] [address] MRI Report MR#: [id number] Acct: [id number] Name: SUE HAWTHORNE Rep #: [id number] OB: 1945 F 69 From: Phani Davis MD PCP: Clemencia Ferreira DO Status: REG CLI Study: Abdomen WITH and W/O Contrast Date of Exam: 05/31/15 Exam# [id number] Ordering Dr: Clemencia Ferreira DO STUDY: MRI A BDOMEN WITH AND WITHOUT CONTRAST REASON FOR EXAM: Female, 69 years old. Abnormal Liver sono. History of breast CA TECHNIQUE: Standardized fat and water weighted pulse sequences were obtained in al l 3 orthogonal planes post contrast administration. 7 ml of Gadavist contrast material was administered intravenously for the contrast portion of the examination. COMPARISON: US - Liver - 10:32 CT - Chest - 14:03 CT - Abdomen/Pelvis - 18:05 FINDINGS: The visualized lung bases are unremarkable. The visualized portions of the heart are within normal limits. There are bilateral breast implants. In the right lobe of the liver, near the dome, there is a 4.7 mm T2 hyperintensity. Series 4 image 8. In the lateral right lobe of the liver, there is a lobulated T2 hyperintensity measuring 25 mm. Series 4 image 13. In the inferior medial right lobe of the liver there is a T2 hyper intensity measuring 10 mm. Series 4 image 1 4. There are 2 other similar appearing smaller lesions in the left lobe of the liver. Normal gallbladder and extrahepatic biliary system. Normal spleen. Normal pancreas. Normal bilateral adrenal gla nds. Normal right kidney. Normal left kidney. Normal visualized stomach. Normal small intestine. Normal colon. The appendix is visualized and appears normal. Normal abdominal aorta. Normal inferi or vena cava. Normal retroperitoneum. Normal abdominal wall. Normal osseous structures. IMPRESSION: Hepatic lesions visualized on ultrasound are correlated wit h the MRI done today. The findings are consistent for cysts of the liver. Electronically Signed: Phani Davis MD at 23:52 EDT , Service support [phone], Fax CC: Clemencia Ferreira DO Principle Software Engineer: Signed 29-May-2015 Dexa Bone Density Study (HP) Result: Comments: See Note; NOTES: [facility] Imaging Services [address] [place] [address] Bone Density Report MR#: [id number] Acct: [id number] Name: SUE HAWTHORNE Rep #: [id number] : 1945 F 69 From: Yousif Hathaway MD PCP: Clemencia Ferreira DO Status: REG CLI Study: Dexa Bone Density Study () Date of Exam: 05/29/15 Exam# [id number] Ordering Dr: Clemencia Ferreira DO STUDY: DUAL ENERGY X-RAY ABSORPTIOMETRY / DXA REASON FOR EXAM: Female, 69 years old. The patient is postmenopausal. Loss of height. TECHNIQUE: Bone Mineral Density (BMD) measurements of lumbar spi ne and bilateral hips were obtained. COMPARISON: Comparison is made with prior study dated January 18, 2013. FINDINGS: Lumbar Spine (L1-L4): g/cm2 (1.033) / T-s core (-1.1) / Z-score (0.6) Findings are suggestive of osteopenia with a low fracture risk. Left Femur Total: g/cm2 (0.843) / T-score (-1.3) / Z-score (0.1) Left Femoral Neck: g/cm2 (0.730) / T-scor e (-2.2) / Z-score (-0.5) Right Femur Total: g/cm2 (0.907) / T-score (-0.8) / Z-score (0.6) Right Femoral Neck: g/cm2 (0.831) / T-score (-1.5) / Z-score (0.2) The T-Scores on the most recent prior e xamination were: Lumbar Spine (L1-L4): There has been improvement of bone density since the previous examination. Left Femur Total: which represents an improvement of 1.2%. Right Femur Total: whic h represents a worsening of 0.7%. IMPRESSION: The patient is considered osteopenic as outlined below according to World Praveen Organization (WHO) criteria with a moderate fracture risk. There has been improvement of bone density since the previous examination. Reference Information: The T-score is the number of standard deviations above or below the standard which is normal for young adults at their peak bone mineral density. The World Health Organization (WHO) interprets the T-scores as follows: Above -1 Normal b one density Between -1 and -2.5 Osteopenia Equal to / or below -2.5 Osteoporosis As a practical clinical guideline, osteopenia may be graded as follows: Mild -1 through -1.5 Moderate -1.6 through -2.0 Severe -2.1 through -2.4 The Z-score is the number of standard deviations above or below age-matched controls. A Z-score of less than -1.5 would be considered abnormal. References: 1. NIH Os teoporosis and Related Bone Diseases http://www.osteo.org 2. International Society for Clinical Densitometry http://www.iscd.org 3. National Osteoporosis Foundation http://www.nof.org Electronically Signed: Yousif Hathaway MD at 15:45 EDT Tel [phone], Service support [phone], CC: Clemencia Ferreira DO Principle Software Engineer: Signed 25-Apr-2015 Liver Result: Comments: See Note; NOTES: [facility] Imaging Services [address] [place] [address] Ultrasound Report MR#: [id number] Acct: [id number] Name: SUE HAWTHORNE Rep #: [id number] : 1945 F 69 From: Naomi Strauss MD PCP: Clemencia Ferreira DO Status: REG CLI Study: Liver Date of Exam: 04/25/15 Exam# [id number] Ordering Dr: Clemencia Ferreira DO STUDY: ABDOMINAL ULTRASOUND - RIGHT UPPER QUADRANT REASON FOR VISIT: Female, 69 years old. Elevated liver enzymes TECHNIQUE: Ultrasound evaluation of the right upper quadrant was performed with real-time and static garces-scale imaging. TECHNICAL QUALITY: Adequate. COMPARISON: None. FINDINGS: Liver: The liver measures 14.8 cm. There is normal echogenicity of the liver. The bile ally ts are within normal limits. There is hepatic color flow. The direction of portal flow is hepatopetal. Loculated cystic lesions are seen in the anterior aspect of the right lobe of the liver measurin g respectively #1 measures 1.7x2.6x1.4 cm. #2 measures 1.7x1.7x1.7 cm. Further evaluation by CT scan of the liver or MRI of liver would be recommended for better characterization. Gallbladder: Sandra l distended gallbladder. The gallbladder wall measures 1.8 mm. There is a negative sonographic Cortez's sign. There is no pericholecystic fluid. 2 echogenic foci are seen the gallbladder measuring ap proximately 5 and 3 mm respectively most likely represent polyps. Common Bile Duct (C.B.D.): The common bile duct measures 3.2 mm. Pancreas: Normal size of the head, body of the pancreas. There is normal echogenicity of the pancreas. There is no demonstrated pancreatic mass or cyst. The tail of the pancreas is obscured. Right Kidney: Normal size of the right kidney. The right kidney measures 9.6x4.4x4.8 cm. Normal renal cortex. The right cortex measures 1.8 cm. There is no demonstrated renal mass or cyst. There is no right 2 cystic lesions hydronephrosis. ___ IMPRESSION: 2 cystic lesions in the right lobe liver for which further evaluation by CT scan of the liver with contrast a hemangioma protocol or by MRI of the liver without and with IV contrast would be recommended for better characterization. 2 echogenic foci in the gallbladder most likely represent polyps largest measures 5 mm. Electronically Signed: Ronn Strauss MD at 1 1:49 EDT Tel , Service support [phone], CC: Clemencia Ferreira DO Principle Software Engineer: Signed 18-Apr-2015 Foot min 3 Views Result: Comments: See Note; NOTES: [facility] Imaging Services [address] [place] [address] Radiology Report MR#: [id number] Acct: [id number] Name: SUE HAWTHORNE Rep #: [id number] : 1945 F 69 From: Shanell Branch MD PCP: Clemencia Ferreira DO Status: REG CLI Study: Foot min 3 Views Date of Exam: 04/18/15 Exam# [id number] Ordering Dr: Ginny Currie DO STUDY: X-RAY - R IGHT FOOT CLINICAL: Female, 69 years old. Fracture followup. TECHNIQUE: 3 view(s) of the foot. COMPARISON: March 12, 2015 FINDINGS: There are stable superior a nd inferior calcaneal spurs. There is stable arthrosis of the subtalar, talonavicular, navicular-cuneiform and cuneiform-metatarsal articulations. A fracture of the base of the fifth metatarsal is again identified with callus formation. There is near anatomic alignment without complications. Normal metatarsophalangeal joint of the great toe. Normal tibial and fibular sesamoid bones. Normal in terphalangeal joint of the great toe. Normal phalanges of the great toe. Normal second through fifth metatarsophalangeal joints. Normal interphalangeal joints and phalanges of the lesser toes. The soft tissue structures are unremarkable. IMPRESSION: Stable arthrosis with calcaneal spurs. Near-anatomic alignment of the base of the fifth metatarsal fractur e with no complications. Electronically Signed: Shanell Branch MD at 14:31 EDT , Service support [phone], RAD/Foot min 3 Views IMPRESSION: Stable arthrosis with calcaneal spurs. Near-anatomic alignment of the base of the fifth metatarsal fracture with no complications. Electronically Signed: Shanell Branch MD at 14:31 EDT , Service support [phone], CC: Ginny Currie DO; Clemencia Ferreira DO Principle Software Engineer: Signed 12-Mar-2015 Foot min 3 Views Result: Comments: See Note; NOTES: [facility] Imaging Services [address] [place] [address] Radiology Report MR#: [id number] Acct: [id number] Name: SUE HAWTHORNE Rep #: [id number] : 1945 F 69 From: Shanell Branch MD PCP: Clemencia Ferreira DO Status: REG CLI Study: Foot min 3 Views Date of Exam: 03/12/15 Exam# [id number] Ordering Dr: Ginny Currie DO STUDY: X-RAY - RI GHT FOOT CLINICAL: Female, 69 years old. Fracture followup. TECHNIQUE: 3 view(s) of the foot. COMPARISON: February 12, 2015 FINDINGS: There are superior and inf erior calcaneal spurs unchanged. Normal visualized subtalar, talonavicular, calcaneocuboid, tarsal and tarsometatarsal articulations. Again noted is a healing base of fifth metatarsal fracture unch anged with no complications. Normal metatarsophalangeal joint of the great toe. Normal tibial and fibular sesamoid bones. Normal interphalangeal joint of the great toe. Normal phalanges of the grea t toe. Normal second through fifth metatarsophalangeal joints. Normal interphalangeal joints and phalanges of the lesser toes. The soft tissue structures are unremarkable. IMPRESSION: No interval change and no acute complications since the prior study. Electronically Signed: Shanell Branch MD at 15:44 EDT , Service support , RAD/Foot min 3 Views IMPRESSION: No interval change and no acute complications since the prior study. Electronically Signed: Shanell Branch MD 03/12 at 15:44 EDT , Service support [phone], CC: Ginny Currie DO; Clemencia Ferreira DO Principle Software Engineer: Signed 15-Feb-2015 Emergency Department Summary Result: Comments: See Note; NOTES: [facility] Medical Records Department [address] [place] [address] Emergency Department Summary MR#: [id number] Acct: [id number] Name: Sussy HAWTHORNE Rep #: [id number] : 1945 69 From: Stephany Francois DO PCP: Clemencia Ferreira DO Status: DEP ER DATE OF SERVICE: 02/05/2015 CHIEF COMPLAINT: Injury, right foot. HISTORY OF PRESENT ILLNESS : A 69-year-old female with injury to right foot. She was walking, when she twisted her foot walking on the driveway. The patient is able to bear some weight, but painful. PAST MEDICAL HISTORY: S ignificant for asthma and GERD. PAST SURGICAL HISTORY: Includes bilateral knee replacements. PRIMARY CARE PHYSICIAN: Dr. Clemencia Ferreira. The patient also sees an orthopedic surgeon in [place]. A LLERGIES: No known drug allergies. SOCIAL HISTORY: She does not smoke. Rarely drinks alcohol. Denies any illicit drug use. PHYSICAL EXAMINATION: VITAL SIGNS: Blood pressure 156/76, temperature 96 .7, heart rate 71, respirations 18. GENERAL APPEARANCE: The patient is awake, alert, in no acute distress. EXTREMITIES: Evaluation of the right foot reveals tenderness to palpation over the base of the fifth metatarsal. She is neurovascularly intact distally. She has got some mild soft tissue swelling over the fifth metatarsal. There is no real ecchymosis or bruising. No tenderness about the an kle. Exam is otherwise unremarkable. EMERGENCY DEPARTMENT COURSE: X-rays of the right foot obtained showed a fracture at the base of the fifth metatarsal. The patient was placed in a postoperative shoe, given crutches, script for Benicia for pain, instructed to ice and elevate the extremity. Follow up with her orthopedic surgeon or Dr. Currie at the patient's request. DISPOSITION: Disch arged to home in stable condition. Stephany Francois DO T: NTS JOB: [id number] 02/15/15 1039 <Electronically signed by Stephany Francois DO> Date Wendius Figueroaearnestine JACQUES CC: Clemencia Jhon JACQUES Date Dictated: 02/05/151752 Date Transcribed: 02/05/151752 Principle Software Engineer: Signed 12-Feb-2015 Foot min 3 Views Result: Comments: See Note; NOTES: [facility] Imaging Services [address] [place] [address] Radiology Report MR#: [id number] Acct: [id number] Name: SUE HAWTHORNE Rep #: [id number] : 1945 F 69 From: Sohan Castaneda MD PCP: Clemencia Ferreira DO Status: REG CLI Study: Foot min 3 Views Date of Exam: 02/12/15 Exam# [id number] Ordering Dr: Ginny Currie DO STUDY: X-RAY - RIGHT FOOT CLINICAL: Female, 69 years old. Fracture followup. TECHNIQUE: 3 view(s) of the foot. COMPARISON: Prior examination-02/05/15 FINDINGS: There is a n Achilles enthesophyte and a small plantar calcaneal spur. There are degenerative changes of the mid foot articulations. There is a nondisplaced fracture of the base of the fifth metatarsal bone, not appreciably changed since the prior examination. Normal fifth and fourth metatarsal bones. Normal metatarsophalangeal joint of the great toe. Normal tibial and fibular sesamoid bones. Normal in terphalangeal joint of the great toe. Normal phalanges of the great toe. Normal second through fifth metatarsophalangeal joints. Normal interphalangeal joints and phalanges of the lesser toes. The soft tissue structures are unremarkable. IMPRESSION: 1. Fracture of the base of the fifth metatarsal bone, unchanged. 2. Degenerative changes. Electronically Signed: Sohan Castaneda MD at 11:36 EDT Tel , Service support [phone], RAD/Foot min 3 Views IMPRESSION: 1. Fracture of the b ase of the fifth metatarsal bone, unchanged. 2. Degenerative changes. Electronically Signed: Sohan Castaneda MD at 11:36 EDT Tel , Service support [phone], Fax CC: Ginny Currie DO; Clemencia Ferreira DO Principle Software Engineer: Signed 05-Feb-2015 Discharge Instruction Result: Comments: See Note; NOTES: [facility] Medical Records Department [address] [place] [address] Discharge Instruction 02/05/151749 MR#: [id number] Acct: [id number] Name: SUE HAWTHORNE Rep #: [id number] : 1945 69 From: Stephany Francois DO PCP: Clemencia Ferreira DO Status: PRE ER ED Disposition - Plan for ED Patient: Chief Complaint: Lower Extremity Injury Instruc tions: ED Fracture, Foot Prescriptions: Hydrocodone Bitart/Apap 5-325 [Benicia 5/325] 1 - 2 tablet PO Q4H PRN PRN #20 tablet PRN Reason: Pain Referrals: Clemencia Ferreira DO [Primary Care Provider] - Ginny Allen DO [STAFF PHYSICIAN] - 3-5 Days if not improving What to do if you have Problems For any increased pain, shortness of breath, bleeding, nausea or vomiting, chest pain, or any unexpec carli problems, contact your doctor. Call [facility] ) or report to the closest Emergency Room. Call 911 if necessary. 02/05/151750 <Electronically signed by Stephany Francois DO> Date Stephany Francois DO Cosigner Signature (If Indicated): Date CC: Clemencia Ferreira DO 05-Feb-2015 Foot min 3 Views Result: Comments: See Note; NOTES: [facility] Imaging Services [address] [place] [address] Radiology Report MR#: [id number] Acct: [id number] Name: SUE HAWTHORNE Rep #: [id number] : 1945 F 69 From: Yousif Hathaway MD PCP: Clemencia Ferreira DO Status: DEP ER Study: Foot min 3 Views Date of Exam: 02/05/15 Exam# [id number] Ordering Dr: Jaida, Malachi P. STUDY: X-RAY - RIGHT FOOT CLINICAL: Female, 69 years old. Lateral foot pain following injury. TECHNIQUE: 3 view(s) of the foot. COMPARISON: None. FINDINGS: There is an ent hesophyte involving the posterior superior calcaneus at the site of insertion of the Achilles tendon. Plantar spur. Normal visualized subtalar, talonavicular, calcaneocuboid, tarsal and tarsometatar karen articulations. Nondisplaced fracture at the base of the fifth metatarsal with overlying soft tissue swelling. Normal metatarsophalangeal joint of the great toe. Normal tibial and fibular sesam oid bones. Normal interphalangeal joint of the great toe. Normal phalanges of the great toe. Normal second through fifth metatarsophalangeal joints. Normal interphalangeal joints and phalanges of th e lesser toes. Soft tissue swelling. IMPRESSION: Nondisplaced fracture at the base of the fifth metatarsal with overlying soft tissue swelling. Plantar spur a s well as a spur at the insertion of the Achilles tendon. Electronically Signed: Yousif Hathaway MD at 8:47 EDT Tel [phone], Service support [phone], CC: Clemencia Ferreira DO; ED PHYSICIAN PROVIDER Principle Software Engineer: Signed 07-Jun-2014 Liver Result: Comments: See Note; NOTES: [facility] Imaging Services [address] [place] [address] Ultrasound Report MR#: [id number] Acct: [id number] Name: SUE HAWTHORNE Rep #: [id number] : 1945 F 68 From: Yousif Hathaway MD PCP: Clemencia Ferreira DO Status: REG CLI Study: Liver Date of Exam: 06/07/14 Exam# [id number] Ordering Dr: Clemencia Ferreira DO STUDY: ABDOMINAL ULTRASOU ND - RIGHT UPPER QUADRANT REASON FOR VISIT: Female, 68 years old. Elevated liver function tests. TECHNIQUE: Ultrasound evaluation of the right upper quadrant was performed with real-time and static garces-scale imaging. TECHNICAL QUALITY: Adequate. COMPARISON: Comparison is made with prior examination dated December 22, 2005. FINDINGS: Liver: The liver measures 12.9 cm. There is increased echogenicity consistent with mild fatty infiltration. The bile ducts are within normal limits. There is hepatic color flow. The direction of portal flow is hepato petal. 2 cysts are seen in the right lobe of the liver. The largest measures 2.8 cm x 2.3 cm x 2.4 cm. Gallbladder: Normal distended gallbladder. The gallbladder wall measures 2.5 mm. There is a neg ative sonographic Cortez's sign. There is no pericholecystic fluid. There are no gallstones. There is a 5 mm polyp along the posterior dependent wall of the gallbladder. Common Bile Duct (C.B.D.): T he common bile duct measures 2.3 mm. Pancreas: Normal size of the head, body of the pancreas. The tail portion is obscured due to overlying bowel gas. There is increased echogenicity of the pancreas . There is no demonstrated pancreatic mass or cyst. Right Kidney: Normal size of the right kidney. The right kidney measures 11.0 cm x 4.5 cm x 4.9 cm. Normal renal cortex. The right cortex measures 1.6 cm. There is no demonstrated renal mass or cyst. There is no right hydronephrosis. IMPRESSION: Mild fatty infiltration of the liver. There are 2 cysts in t he right lobe of the liver. 5 mm polyp along the dependent wall of the gallbladder. Electronically Signed: Yousif Hathaway MD at 10:40 EDT Tel [phone], Service support , CC: Clemencia Ferreira DO Principle Software Engineer: Signed Immunization Name Dates Details Influenza (3 years and up) on: 02-Sep-2007 Influenza (3 years and up) on: 07-Sep-2008 Comments: Lot #:[id number] date:04/16Amount given:0.5mlRoute: IMSite given:left delGiven by: BEBA Higgins Influenza (3 years and up) on: 05-Aug-2009 Comments: Lot #:[id number] date:mount given:0.5mlRoute: IMSite given:left deltGiven by: BEBA Higgins Influenza (3 years and up) on: 23-Sep-2006 Pneumococcal (2 years and up) on: 27-Sep-2006 Pneumococcal (2 years and up) on: 09-Aug-2007 Comments: given im in left deltoid lot #[id number] exp.09/02/08-aw Family History Unknown Family Member Name Dates Details Father Comments: PUD, PMR, HTN, high cholesterol Status: Active Mother Comments: CLL, DM, Shingles Status: Active Social History Name Dates Details Alcohol Use Comments: Occasional alcohol use Status: Active Caffeine Use Comments: 4 QD Status: Active Non Smoker/No Tobacco Use Status: Active Tobacco use: Never smoker. Comments: 11/27/11 Status: Active Tobacco use: Never smoker. Status: Active Smoking Status Name Dates Details Never smoker Vital Signs Date Test Result Details [id number] Temperature 97.7 f Comments: Method: Temporal Pulse 72 /min Comments: Pattern: Regular Respiration Rate 18 /min Comments: Pattern: Unlabored O2 SAT 97 % Comments: Room air BP Systolic 138 mm[Hg] Comments: Patient Position: Sitting; Cuff Location: Left Arm; Cuff Size: Standard BP Diastolic 72 mm[Hg] Comments: Patient Position: Sitting; Cuff Location: Left Arm; Cuff Size: Standard Weight 182.375 lb Height 63.5 in Body Mass Index Calculated 31.8 kg/m2 Body Surface Area Calculated 1.87 m2 18-Bxi-[id number]:41 Temperature 96.8 f Comments: Method: Temporal Pulse 67 /min Comments: Pattern: Regular Respiration Rate 17 /min Comments: Pattern: Unlabored O2 SAT 97 % Comments: Room air BP Systolic 122 mm[Hg] Comments: Patient Position: Sitting; Cuff Location: Left Arm; Cuff Size: Standard BP Diastolic 70 mm[Hg] Comments: Patient Position: Sitting; Cuff Location: Left Arm; Cuff Size: Standard Weight 182.375 lb Height 63.5 in Body Mass Index Calculated 31.8 kg/m2 Body Surface Area Calculated 1.87 m2 :55 Temperature 97.2 f Comments: Method: Temporal Pulse 73 /min Comments: Pattern: Regular Respiration Rate 16 /min Comments: Pattern: Unlabored O2 SAT 98 % Comments: Room air BP Systolic 136 mm[Hg] Comments: Patient Position: Sitting; Cuff Location: Left Arm; Cuff Size: Standard BP Diastolic 74 mm[Hg] Comments: Patient Position: Sitting; Cuff Location: Left Arm; Cuff Size: Standard Weight 181 lb Height 63.5 in Body Mass Index Calculated 31.56 kg/m2 Body Surface Area Calculated 1.86 m2 :12 Pulse 73 /min Comments: Pattern: Regular Respiration Rate 18 /min Comments: Pattern: Unlabored O2 SAT 97 % Comments: Room air BP Systolic 118 mm[Hg] Comments: Patient Position: Sitting; Cuff Location: Left Arm; Cuff Size: Large BP Diastolic 80 mm[Hg] Comments: Patient Position: Sitting; Cuff Location: Left Arm; Cuff Size: Large Weight 181 lb Height 63.5 in Body Mass Index Calculated 31.56 kg/m2 Body Surface Area Calculated 1.86 m2 :50 Comments: orthos 144/63914/00017/78 Temperature 97.2 f Pulse 79 /min Comments: Pattern: Regular Respiration Rate 16 /min Comments: Pattern: Unlabored O2 SAT 98 % Comments: Room air BP Systolic 158 mm[Hg] Comments: Patient Position: Sitting; Cuff Location: Left Arm; Cuff Size: Standard BP Diastolic 70 mm[Hg] Comments: Patient Position: Sitting; Cuff Location: Left Arm; Cuff Size: Standard Weight 181 lb Height 63.5 in Body Mass Index Calculated 31.56 kg/m2 Body Surface Area Calculated 1.86 m2 15-Czv-090802:10 Comments: Dr. Majano and had a glaucoam test donehearing wnl Pulse 76 /min Comments: Pattern: Regular Respiration Rate 18 /min Comments: Pattern: Unlabored O2 SAT 97 % Comments: Room air BP Systolic 122 mm[Hg] Comments: Patient Position: Sitting; Cuff Location: Left Arm; Cuff Size: Large BP Diastolic 64 mm[Hg] Comments: Patient Position: Sitting; Cuff Location: Left Arm; Cuff Size: Large Weight 181 lb Height 63.5 in Body Mass Index Calculated 31.56 kg/m2 Body Surface Area Calculated 1.86 m2 5-Buq-[id number]:08 Pulse 70 /min Comments: Pattern: Regular Respiration Rate 18 /min Comments: Pattern: Unlabored O2 SAT 97 % Comments: Room air BP Systolic 118 mm[Hg] Comments: Patient Position: Sitting; Cuff Location: Left Arm; Cuff Size: Standard BP Diastolic 68 mm[Hg] Comments: Patient Position: Sitting; Cuff Location: Left Arm; Cuff Size: Standard Weight 177.375 lb Height 63.5 in Body Mass Index Calculated 30.93 kg/m2 Body Surface Area Calculated 1.85 m2 49-Ymi-017197:24 Pulse 78 /min Comments: Pattern: Regular Respiration Rate 18 /min Comments: Pattern: Unlabored O2 SAT 98 % Comments: Room air BP Systolic 118 mm[Hg] Comments: Patient Position: Sitting; Cuff Location: Left Arm; Cuff Size: Large BP Diastolic 62 mm[Hg] Comments: Patient Position: Sitting; Cuff Location: Left Arm; Cuff Size: Large Weight 177.5 lb Height 63.5 in Body Mass Index Calculated 30.95 kg/m2 Body Surface Area Calculated 1.85 m2 5-Wju-554917:00 Pulse 79 /min Comments: Pattern: Regular Respiration Rate 18 /min Comments: Pattern: Unlabored O2 SAT 97 % Comments: Room air BP Systolic 118 mm[Hg] Comments: Patient Position: Sitting; Cuff Location: Left Arm; Cuff Size: Large BP Diastolic 62 mm[Hg] Comments: Patient Position: Sitting; Cuff Location: Left Arm; Cuff Size: Large Weight 177.5 lb Height 63.5 in Body Mass Index Calculated 30.95 kg/m2 Body Surface Area Calculated 1.85 m2 :58 Temperature 97.3 f Pulse 80 /min Comments: Pattern: Regular Respiration Rate 17 /min Comments: Pattern: Unlabored O2 SAT 97 % Comments: Room air BP Systolic 114 mm[Hg] Comments: Patient Position: Sitting; Cuff Location: Left Arm; Cuff Size: Standard BP Diastolic 68 mm[Hg] Comments: Patient Position: Sitting; Cuff Location: Left Arm; Cuff Size: Standard Weight 176 lb Height 63.5 in Body Mass Index Calculated 30.69 kg/m2 Body Surface Area Calculated 1.84 m2 :15 Temperature 97.2 f Pulse 80 /min Comments: Pattern: Regular Respiration Rate 18 /min Comments: Pattern: Unlabored O2 SAT 94 % Comments: Room air BP Systolic 132 mm[Hg] Comments: Patient Position: Sitting; Cuff Location: Left Arm; Cuff Size: Standard BP Diastolic 66 mm[Hg] Comments: Patient Position: Sitting; Cuff Location: Left Arm; Cuff Size: Standard Weight 173 lb Height 63.5 in Body Mass Index Calculated 30.16 kg/m2 Body Surface Area Calculated 1.83 m2 :26 Temperature 98.3 f Comments: Method: Temporal Pulse 62 /min Comments: Pattern: Regular Respiration Rate 16 /min Comments: Pattern: Unlabored O2 SAT 98 % Comments: Room air BP Systolic 115 mm[Hg] Comments: Patient Position: Sitting; Cuff Location: Left Arm; Cuff Size: Standard BP Diastolic 60 mm[Hg] Comments: Patient Position: Sitting; Cuff Location: Left Arm; Cuff Size: Standard Weight 172 lb Height 63.5 in Body Mass Index Calculated 29.99 kg/m2 Body Surface Area Calculated 1.82 m2 :54 Temperature 96.7 f Comments: Method: Temporal Pulse 82 /min Comments: Pattern: Regular Respiration Rate 16 /min Comments: Pattern: Unlabored BP Systolic 120 mm[Hg] Comments: Patient Position: Sitting; Cuff Location: Left Arm; Cuff Size: Standard BP Diastolic 70 mm[Hg] Comments: Patient Position: Sitting; Cuff Location: Left Arm; Cuff Size: Standard Weight 176 lb Height 63.5 in Body Mass Index Calculated 30.69 kg/m2 Body Surface Area Calculated 1.84 m2 :59 Comments: hearing wnlDRMireille Majano and had a glaucoma test done Pulse 73 /min Comments: Pattern: Regular Respiration Rate 18 /min Comments: Pattern: Unlabored O2 SAT 97 % Comments: Room air BP Systolic 118 mm[Hg] Comments: Patient Position: Sitting; Cuff Location: Left Arm; Cuff Size: Large BP Diastolic 64 mm[Hg] Comments: Patient Position: Sitting; Cuff Location: Left Arm; Cuff Size: Large Weight 177 lb Height 63.5 in Body Mass Index Calculated 30.86 kg/m2 Body Surface Area Calculated 1.85 m2 :54 Pulse 83 /min Comments: Pattern: Regular Respiration Rate 18 /min Comments: Pattern: Unlabored O2 SAT 95 % Comments: Room air BP Systolic 122 mm[Hg] Comments: Patient Position: Sitting; Cuff Location: Left Arm; Cuff Size: Large BP Diastolic 78 mm[Hg] Comments: Patient Position: Sitting; Cuff Location: Left Arm; Cuff Size: Large Weight 176.25 lb Height 63.5 in Body Mass Index Calculated 30.73 kg/m2 Body Surface Area Calculated 1.84 m2 :27 Temperature 98.1 f Pulse 84 /min Comments: Pattern: Regular Respiration Rate 16 /min Comments: Pattern: Unlabored O2 SAT 97 % Comments: Room air BP Systolic 122 mm[Hg] Comments: Patient Position: Sitting; Cuff Location: Left Arm; Cuff Size: Standard BP Diastolic 80 mm[Hg] Comments: Patient Position: Sitting; Cuff Location: Left Arm; Cuff Size: Standard Weight 179 lb Height 63.5 in Body Mass Index Calculated 31.21 kg/m2 Body Surface Area Calculated 1.86 m2 :08 Pulse 68 /min Comments: Pattern: Regular Respiration Rate 18 /min Comments: Pattern: Unlabored O2 SAT 98 % Comments: Room air BP Systolic 122 mm[Hg] Comments: Patient Position: Sitting; Cuff Location: Left Arm; Cuff Size: Large BP Diastolic 78 mm[Hg] Comments: Patient Position: Sitting; Cuff Location: Left Arm; Cuff Size: Large Weight 186 lb Height 63.5 in Body Mass Index Calculated 32.43 kg/m2 Body Surface Area Calculated 1.89 m2 :24 Temperature 97.6 f Pulse 92 /min Comments: Pattern: Regular Respiration Rate 17 /min Comments: Pattern: Unlabored O2 SAT 94 % Comments: Room air BP Systolic 132 mm[Hg] Comments: Patient Position: Sitting; Cuff Location: Left Arm; Cuff Size: Standard BP Diastolic 80 mm[Hg] Comments: Patient Position: Sitting; Cuff Location: Left Arm; Cuff Size: Standard Weight 188 lb Height 63.5 in Body Mass Index Calculated 32.78 kg/m2 Body Surface Area Calculated 1.89 m2 :49 Temperature 98.5 f Comments: Method: Temporal Pulse 65 /min Comments: Pattern: Regular Respiration Rate 16 /min Comments: Pattern: Unlabored O2 SAT 98 % Comments: Room air BP Systolic 110 mm[Hg] Comments: Patient Position: Sitting; Cuff Location: Left Arm; Cuff Size: Standard BP Diastolic 62 mm[Hg] Comments: Patient Position: Sitting; Cuff Location: Left Arm; Cuff Size: Standard Weight 186 lb Height 63.5 in Body Mass Index Calculated 32.43 kg/m2 Body Surface Area Calculated 1.89 m2 :03 Pulse 76 /min Comments: Pattern: Regular Respiration Rate 18 /min Comments: Pattern: Unlabored O2 SAT 98 % Comments: Room air BP Systolic 118 mm[Hg] Comments: Patient Position: Sitting; Cuff Location: Left Arm; Cuff Size: Large BP Diastolic 78 mm[Hg] Comments: Patient Position: Sitting; Cuff Location: Left Arm; Cuff Size: Large Weight 182 lb Height 63.5 in Body Mass Index Calculated 31.73 kg/m2 Body Surface Area Calculated 1.87 m2 :28 Temperature 98.2 f Pulse 75 /min Comments: Pattern: Regular Respiration Rate 17 /min Comments: Pattern: Unlabored O2 SAT 96 % Comments: Room air BP Systolic 118 mm[Hg] Comments: Patient Position: Sitting; Cuff Location: Left Arm; Cuff Size: Standard BP Diastolic 78 mm[Hg] Comments: Patient Position: Sitting; Cuff Location: Left Arm; Cuff Size: Standard Weight 182 lb Height 63.5 in Body Mass Index Calculated 31.73 kg/m2 Body Surface Area Calculated 1.87 m2 :37 Temperature 97.4 f Comments: Method: Temporal Pulse 88 /min Comments: Pattern: Regular Respiration Rate 18 /min Comments: Pattern: Unlabored O2 SAT 96 % Comments: Room air BP Systolic 128 mm[Hg] Comments: Patient Position: Sitting; Cuff Location: Left Arm; Cuff Size: Large BP Diastolic 78 mm[Hg] Comments: Patient Position: Sitting; Cuff Location: Left Arm; Cuff Size: Large Weight 186 lb Height 63.5 in Body Mass Index Calculated 32.43 kg/m2 Body Surface Area Calculated 1.89 m2 :39 Temperature 97.4 f Comments: Method: Temporal Pulse 69 /min Comments: Pattern: Regular Respiration Rate 16 /min Comments: Pattern: Unlabored O2 SAT 98 % Comments: Room air BP Systolic 122 mm[Hg] Comments: Patient Position: Sitting; Cuff Location: Left Arm; Cuff Size: Standard BP Diastolic 80 mm[Hg] Comments: Patient Position: Sitting; Cuff Location: Left Arm; Cuff Size: Standard Weight 186 lb Height 63.5 in Body Mass Index Calculated 32.43 kg/m2 Body Surface Area Calculated 1.89 m2 :11 Temperature 97.4 f Comments: Method: Temporal Pulse 64 /min Comments: Pattern: Regular Respiration Rate 15 /min Comments: Pattern: Unlabored O2 SAT 95 % Comments: Room air BP Systolic 124 mm[Hg] Comments: Patient Position: Sitting; Cuff Location: Left Arm; Cuff Size: Standard BP Diastolic 72 mm[Hg] Comments: Patient Position: Sitting; Cuff Location: Left Arm; Cuff Size: Standard Weight 186 lb Height 63.5 in Body Mass Index Calculated 32.43 kg/m2 Body Surface Area Calculated 1.89 m2 :20 Temperature 99 f Comments: Method: Temporal Pulse 72 /min Comments: Pattern: Regular Respiration Rate 15 /min Comments: Pattern: Unlabored O2 SAT 96 % Comments: Room air BP Systolic 112 mm[Hg] Comments: Patient Position: Sitting; Cuff Location: Left Arm; Cuff Size: Standard BP Diastolic 74 mm[Hg] Comments: Patient Position: Sitting; Cuff Location: Left Arm; Cuff Size: Standard Weight 183 lb Height 64 in Body Mass Index Calculated 31.41 kg/m2 Body Surface Area Calculated 1.88 m2 :02 Temperature 98.7 f Comments: Method: Temporal Pulse 68 /min Comments: Pattern: Regular Respiration Rate 16 /min Comments: Pattern: Unlabored O2 SAT 95 % Comments: Room air BP Systolic 118 mm[Hg] Comments: Patient Position: Sitting; Cuff Location: Left Arm; Cuff Size: Large BP Diastolic 72 mm[Hg] Comments: Patient Position: Sitting; Cuff Location: Left Arm; Cuff Size: Large Weight 188 lb Height 64 in Body Mass Index Calculated 32.27 kg/m2 Body Surface Area Calculated 1.91 m2 :17 Respiration Rate 20 /min :13 Temperature 97.2 f Pulse 78 /min Comments: Pattern: Regular O2 SAT 98 % Comments: Room air BP Systolic 132 mm[Hg] Comments: Patient Position: Sitting; Cuff Location: Left Arm; Cuff Size: Standard BP Diastolic 78 mm[Hg] Comments: Patient Position: Sitting; Cuff Location: Left Arm; Cuff Size: Standard Weight 186 lb Height 64 in Body Mass Index Calculated 31.93 kg/m2 Body Surface Area Calculated 1.9 m2 :14 Temperature 97.3 f Comments: Method: Oral Pulse 68 /min Comments: Pattern: Regular Respiration Rate 16 /min Comments: Pattern: Unlabored BP Systolic 120 mm[Hg] Comments: Patient Position: Sitting; Cuff Location: Left Arm; Cuff Size: Large BP Diastolic 72 mm[Hg] Comments: Patient Position: Sitting; Cuff Location: Left Arm; Cuff Size: Large Weight 186 lb Height 64 in Body Mass Index Calculated 31.93 kg/m2 Body Surface Area Calculated 1.9 m2 :11 Temperature 97.6 f Comments: Method: Oral Pulse 72 /min Comments: Pattern: Regular Respiration Rate 16 /min O2 SAT 96 % Comments: Room air BP Systolic 130 mm[Hg] Comments: Patient Position: Sitting; Cuff Location: Left Arm; Cuff Size: Standard BP Diastolic 72 mm[Hg] Comments: Patient Position: Sitting; Cuff Location: Left Arm; Cuff Size: Standard Weight 185 lb Height 64 in Body Mass Index Calculated 31.75 kg/m2 Body Surface Area Calculated 1.89 m2 :52 Temperature 97.1 f Comments: Method: Oral Pulse 80 /min Comments: Pattern: Regular Respiration Rate 16 /min Comments: Pattern: Unlabored BP Systolic 122 mm[Hg] Comments: Patient Position: Sitting; Cuff Location: Left Arm; Cuff Size: Large BP Diastolic 66 mm[Hg] Comments: Patient Position: Sitting; Cuff Location: Left Arm; Cuff Size: Large Weight 185 lb Height 64 in Body Mass Index Calculated 31.75 kg/m2 Body Surface Area Calculated 1.89 m2 :18 Temperature 97.6 f Comments: Method: Oral Pulse 74 /min Comments: Pattern: Regular Respiration Rate 16 /min O2 SAT 98 % Comments: Room air BP Systolic 132 mm[Hg] Comments: Patient Position: Sitting; Cuff Location: Left Arm; Cuff Size: Standard BP Diastolic 72 mm[Hg] Comments: Patient Position: Sitting; Cuff Location: Left Arm; Cuff Size: Standard Weight 181.4375 lb Height 64 in Body Mass Index Calculated 31.14 kg/m2 Body Surface Area Calculated 1.88 m2 :14 Temperature 98.6 f Comments: Method: Oral Pulse 83 /min Comments: Pattern: Regular Respiration Rate 16 /min Comments: Pattern: Unlabored BP Systolic 126 mm[Hg] Comments: Patient Position: Sitting; Cuff Location: Left Arm; Cuff Size: Standard BP Diastolic 60 mm[Hg] Comments: Patient Position: Sitting; Cuff Location: Left Arm; Cuff Size: Standard Weight 181.4375 lb Height 64 in Body Mass Index Calculated 31.14 kg/m2 Body Surface Area Calculated 1.88 m2 :28 Temperature 98 f Comments: Method: Oral Pulse 91 /min Comments: Pattern: Regular Respiration Rate 18 /min Comments: Pattern: Unlabored O2 SAT 97 % Comments: Room air BP Systolic 112 mm[Hg] Comments: Patient Position: Sitting; Cuff Location: Left Arm; Cuff Size: Standard BP Diastolic 64 mm[Hg] Comments: Patient Position: Sitting; Cuff Location: Left Arm; Cuff Size: Standard Weight 181.4375 lb Height 64 in Body Mass Index Calculated 31.14 kg/m2 Body Surface Area Calculated 1.88 m2 :34 Temperature 98.3 f Pulse 76 /min Comments: Pattern: Regular Respiration Rate 16 /min Comments: Pattern: Unlabored BP Systolic 116 mm[Hg] Comments: Patient Position: Sitting; Cuff Location: Left Arm; Cuff Size: Large BP Diastolic 64 mm[Hg] Comments: Patient Position: Sitting; Cuff Location: Left Arm; Cuff Size: Large Weight 182 lb Height 64 in Body Mass Index Calculated 31.24 kg/m2 Body Surface Area Calculated 1.88 m2 :32 Temperature 98.2 f Comments: Method: Oral Pulse 68 /min Comments: Pattern: Regular Respiration Rate 18 /min Comments: Pattern: Unlabored O2 SAT 96 % Comments: Room air BP Systolic 122 mm[Hg] Comments: Patient Position: Sitting; Cuff Location: Left Arm; Cuff Size: Standard BP Diastolic 70 mm[Hg] Comments: Patient Position: Sitting; Cuff Location: Left Arm; Cuff Size: Standard Weight 187 lb Height 64 in Body Mass Index Calculated 32.1 kg/m2 Body Surface Area Calculated 1.9 m2 :34 Temperature 98.3 f Pulse 72 /min Comments: Pattern: Regular Respiration Rate 16 /min Comments: Pattern: Unlabored BP Systolic 104 mm[Hg] Comments: Patient Position: Sitting; Cuff Location: Left Arm; Cuff Size: Large BP Diastolic 50 mm[Hg] Comments: Patient Position: Sitting; Cuff Location: Left Arm; Cuff Size: Large Weight 190 lb Height 64 in Body Mass Index Calculated 32.61 kg/m2 Body Surface Area Calculated 1.91 m2 :03 Temperature 99.3 f Comments: Method: Oral Pulse 98 /min Comments: Pattern: Regular Respiration Rate 16 /min Comments: Pattern: Unlabored O2 SAT 97 % Comments: Room air BP Systolic 136 mm[Hg] Comments: Patient Position: Sitting; Cuff Location: Left Arm; Cuff Size: Standard BP Diastolic 75 mm[Hg] Comments: Patient Position: Sitting; Cuff Location: Left Arm; Cuff Size: Standard Weight 190 lb Height 64 in Body Mass Index Calculated 32.61 kg/m2 Body Surface Area Calculated 1.91 m2 :31 Temperature 97.6 f Pulse 76 /min Comments: Pattern: Regular Respiration Rate 16 /min Comments: Pattern: Unlabored BP Systolic 112 mm[Hg] Comments: Patient Position: Sitting; Cuff Location: Left Arm; Cuff Size: Large BP Diastolic 64 mm[Hg] Comments: Patient Position: Sitting; Cuff Location: Left Arm; Cuff Size: Large Weight 183 lb Height 64 in Body Mass Index Calculated 31.41 kg/m2 Body Surface Area Calculated 1.88 m2 :28 Temperature 98 f Pulse 74 /min Comments: Pattern: Regular Respiration Rate 18 /min Comments: Pattern: Unlabored BP Systolic 114 mm[Hg] Comments: Patient Position: Sitting; Cuff Location: Left Arm; Cuff Size: Large BP Diastolic 70 mm[Hg] Comments: Patient Position: Sitting; Cuff Location: Left Arm; Cuff Size: Large Weight 178 lb Height 64 in Body Mass Index Calculated 30.55 kg/m2 Body Surface Area Calculated 1.86 m2 :48 Temperature 97.4 f Pulse 76 /min Comments: Pattern: Regular Respiration Rate 16 /min Comments: Pattern: Unlabored BP Systolic 116 mm[Hg] Comments: Patient Position: Sitting; Cuff Location: Left Arm; Cuff Size: Large BP Diastolic 70 mm[Hg] Comments: Patient Position: Sitting; Cuff Location: Left Arm; Cuff Size: Large Weight 178 lb Height 64 in Body Mass Index Calculated 30.55 kg/m2 Body Surface Area Calculated 1.86 m2 :23 Temperature 97.9 f Pulse 96 /min Comments: Pattern: Regular Respiration Rate 16 /min Comments: Pattern: Unlabored BP Systolic 114 mm[Hg] Comments: Patient Position: Sitting; Cuff Location: Left Arm; Cuff Size: Standard BP Diastolic 66 mm[Hg] Comments: Patient Position: Sitting; Cuff Location: Left Arm; Cuff Size: Standard Weight 176.0625 lb Height 64 in Body Mass Index Calculated 30.22 kg/m2 Body Surface Area Calculated 1.85 m2 :26 Temperature 99.6 f Comments: Method: Oral Pulse 96 /min Comments: Pattern: Regular Respiration Rate 16 /min Comments: Pattern: Unlabored BP Systolic 130 mm[Hg] Comments: Patient Position: Sitting; Cuff Location: Left Arm; Cuff Size: Standard BP Diastolic 62 mm[Hg] Comments: Patient Position: Sitting; Cuff Location: Left Arm; Cuff Size: Standard Weight 176 lb Height 64 in Body Mass Index Calculated 30.21 kg/m2 Body Surface Area Calculated 1.85 m2 :58 Temperature 100.8 f Pulse 100 /min Comments: Pattern: Regular Respiration Rate 16 /min Comments: Pattern: Unlabored BP Systolic 124 mm[Hg] Comments: Patient Position: Sitting; Cuff Location: Left Arm; Cuff Size: Large BP Diastolic 62 mm[Hg] Comments: Patient Position: Sitting; Cuff Location: Left Arm; Cuff Size: Large Weight 180 lb Height 64 in Body Mass Index Calculated 30.9 kg/m2 Body Surface Area Calculated 1.87 m2 :51 Temperature 98.8 f Pulse 80 /min Comments: Pattern: Regular Respiration Rate 18 /min Comments: Pattern: Unlabored BP Systolic 112 mm[Hg] Comments: Patient Position: Sitting; Cuff Location: Left Arm; Cuff Size: Large BP Diastolic 72 mm[Hg] Comments: Patient Position: Sitting; Cuff Location: Left Arm; Cuff Size: Large Weight 180 lb Height 64 in Body Mass Index Calculated 30.9 kg/m2 Body Surface Area Calculated 1.87 m2 :07 Temperature 99.8 f Pulse 104 /min Comments: Pattern: Regular Respiration Rate 16 /min Comments: Pattern: Unlabored BP Systolic 128 mm[Hg] Comments: Patient Position: Sitting; Cuff Location: Left Arm; Cuff Size: Large BP Diastolic 60 mm[Hg] Comments: Patient Position: Sitting; Cuff Location: Left Arm; Cuff Size: Large Weight 180 lb Height 64 in Body Mass Index Calculated 30.9 kg/m2 Body Surface Area Calculated 1.87 m2 :29 Temperature 97.8 f Pulse 80 /min Comments: Pattern: Regular Respiration Rate 16 /min Comments: Pattern: Unlabored BP Systolic 116 mm[Hg] Comments: Patient Position: Sitting; Cuff Location: Left Arm; Cuff Size: Large BP Diastolic 72 mm[Hg] Comments: Patient Position: Sitting; Cuff Location: Left Arm; Cuff Size: Large Weight 180 lb Height 64 in Body Mass Index Calculated 30.9 kg/m2 Body Surface Area Calculated 1.87 m2 :46 Temperature 98.8 f Pulse 84 /min Comments: Pattern: Regular Respiration Rate 16 /min Comments: Pattern: Unlabored BP Systolic 110 mm[Hg] Comments: Patient Position: Sitting; Cuff Location: Left Arm; Cuff Size: Large BP Diastolic 56 mm[Hg] Comments: Patient Position: Sitting; Cuff Location: Left Arm; Cuff Size: Large Weight 180 lb Height 64 in Body Mass Index Calculated 30.9 kg/m2 Body Surface Area Calculated 1.87 m2 :09 Temperature 97.9 f Pulse 80 /min Comments: Pattern: Regular Respiration Rate 18 /min Comments: Pattern: Unlabored O2 SAT 93 % Comments: Room air BP Systolic 126 mm[Hg] Comments: Patient Position: Sitting; Cuff Location: Left Arm; Cuff Size: Large BP Diastolic 60 mm[Hg] Comments: Patient Position: Sitting; Cuff Location: Left Arm; Cuff Size: Large Weight 178 lb Height 64 in Body Mass Index Calculated 30.55 kg/m2 Body Surface Area Calculated 1.86 m2 :38 Temperature 98.5 f Comments: Method: Oral Pulse 80 /min Comments: Pattern: Regular Respiration Rate 20 /min Comments: Pattern: Unlabored BP Systolic 128 mm[Hg] Comments: Patient Position: Sitting; Cuff Location: Right Arm; Cuff Size: Large BP Diastolic 68 mm[Hg] Comments: Patient Position: Sitting; Cuff Location: Right Arm; Cuff Size: Large Weight 178 lb Height 64 in Body Mass Index Calculated 30.55 kg/m2 Body Surface Area Calculated 1.86 m2 :25 Pulse 88 /min Comments: Pattern: Regular Respiration Rate 20 /min Comments: Pattern: Unlabored BP Systolic 120 mm[Hg] Comments: Patient Position: Sitting; Cuff Location: Left Arm; Cuff Size: Large BP Diastolic 62 mm[Hg] Comments: Patient Position: Sitting; Cuff Location: Left Arm; Cuff Size: Large Weight 178 lb Height 64 in Body Mass Index Calculated 30.55 kg/m2 Body Surface Area Calculated 1.86 m2 :32 Temperature 99.1 f Pulse 96 /min Comments: Pattern: Regular Respiration Rate 18 /min Comments: Pattern: Unlabored O2 SAT 95 % Comments: Room air BP Systolic 126 mm[Hg] Comments: Patient Position: Sitting; Cuff Location: Left Arm; Cuff Size: Large BP Diastolic 74 mm[Hg] Comments: Patient Position: Sitting; Cuff Location: Left Arm; Cuff Size: Large Weight 178 lb Height 64 in Body Mass Index Calculated 30.55 kg/m2 Body Surface Area Calculated 1.86 m2 :48 Temperature 98.7 f Comments: Method: Oral Pulse 76 /min Comments: Pattern: Regular Respiration Rate 18 /min O2 SAT 98 % Comments: Room air BP Systolic 124 mm[Hg] Comments: Patient Position: Sitting; Cuff Location: Left Arm; Cuff Size: Standard BP Diastolic 78 mm[Hg] Comments: Patient Position: Sitting; Cuff Location: Left Arm; Cuff Size: Standard Weight 180 lb Height 64 in Body Mass Index Calculated 30.9 kg/m2 Body Surface Area Calculated 1.87 m2 :00 Temperature 97.5 f Pulse 84 /min Comments: Pattern: Regular Respiration Rate 18 /min Comments: Pattern: Unlabored BP Systolic 118 mm[Hg] Comments: Patient Position: Sitting; Cuff Location: Left Arm; Cuff Size: Large BP Diastolic 70 mm[Hg] Comments: Patient Position: Sitting; Cuff Location: Left Arm; Cuff Size: Large Weight 180 lb Height 64 in Body Mass Index Calculated 30.9 kg/m2 Body Surface Area Calculated 1.87 m2 :29 Temperature 98.4 f Comments: Method: Oral Pulse 74 /min Comments: Pattern: Regular BP Systolic 122 mm[Hg] Comments: Patient Position: Sitting; Cuff Location: Left Arm; Cuff Size: Standard BP Diastolic 72 mm[Hg] Comments: Patient Position: Sitting; Cuff Location: Left Arm; Cuff Size: Standard Weight 175 lb Height 64 in Body Mass Index Calculated 30.04 kg/m2 Body Surface Area Calculated 1.85 m2 :42 Temperature 98.6 f Comments: Method: Oral Pulse 78 /min Comments: Pattern: Regular Respiration Rate 16 /min BP Systolic 122 mm[Hg] Comments: Patient Position: Sitting; Cuff Location: Left Arm; Cuff Size: Standard BP Diastolic 74 mm[Hg] Comments: Patient Position: Sitting; Cuff Location: Left Arm; Cuff Size: Standard Weight 175 lb Height 64 in Body Mass Index Calculated 30.04 kg/m2 Body Surface Area Calculated 1.85 m2 :22 Temperature 97.9 f Comments: Method: Oral Pulse 70 /min Comments: Pattern: Regular Respiration Rate 72 /min Comments: Pattern: Unlabored BP Systolic 122 mm[Hg] Comments: Patient Position: Sitting; Cuff Location: Left Arm; Cuff Size: Standard BP Diastolic 70 mm[Hg] Comments: Patient Position: Sitting; Cuff Location: Left Arm; Cuff Size: Standard Weight 175 lb Height 64 in Body Mass Index Calculated 30.04 kg/m2 Body Surface Area Calculated 1.85 m2 :28 Temperature 98.3 f Pulse 80 /min Comments: Pattern: Regular Respiration Rate 16 /min Comments: Pattern: Unlabored BP Systolic 118 mm[Hg] Comments: Patient Position: Sitting; Cuff Location: Left Arm; Cuff Size: Standard BP Diastolic 70 mm[Hg] Comments: Patient Position: Sitting; Cuff Location: Left Arm; Cuff Size: Standard Weight 175 lb Height 64 in Body Mass Index Calculated 30.04 kg/m2 Body Surface Area Calculated 1.85 m2 :13 Temperature 98.8 f Pulse 78 /min Comments: Pattern: Regular Respiration Rate 16 /min Comments: Pattern: Unlabored BP Systolic 128 mm[Hg] Comments: Patient Position: Sitting; Cuff Location: Left Arm; Cuff Size: Standard BP Diastolic 64 mm[Hg] Comments: Patient Position: Sitting; Cuff Location: Left Arm; Cuff Size: Standard Weight 174 lb Height 64 in Body Mass Index Calculated 29.87 kg/m2 Body Surface Area Calculated 1.84 m2 :33 Temperature 97.9 f Pulse 72 /min Comments: Pattern: Regular Respiration Rate 16 /min Comments: Pattern: Unlabored BP Systolic 124 mm[Hg] Comments: Patient Position: Sitting; Cuff Location: Left Arm; Cuff Size: Large BP Diastolic 72 mm[Hg] Comments: Patient Position: Sitting; Cuff Location: Left Arm; Cuff Size: Large Weight 172 lb Height 64 in Body Mass Index Calculated 29.52 kg/m2 Body Surface Area Calculated 1.83 m2 :09 Temperature 97.6 f Comments: Method: Oral Pulse 64 /min Comments: Pattern: Regular Respiration Rate 16 /min Comments: Pattern: Unlabored BP Systolic 112 mm[Hg] Comments: Patient Position: Sitting; Cuff Location: Left Arm; Cuff Size: Standard BP Diastolic 74 mm[Hg] Comments: Patient Position: Sitting; Cuff Location: Left Arm; Cuff Size: Standard Weight 171.5 lb Height 64 in Body Mass Index Calculated 29.44 kg/m2 Body Surface Area Calculated 1.83 m2 :37 Temperature 98 f Comments: Method: Oral Pulse 64 /min Comments: Pattern: Regular Respiration Rate 20 /min Comments: Pattern: Unlabored BP Systolic 118 mm[Hg] Comments: Patient Position: Sitting; Cuff Location: Left Arm; Cuff Size: Large BP Diastolic 62 mm[Hg] Comments: Patient Position: Sitting; Cuff Location: Left Arm; Cuff Size: Large Weight 173.5625 lb Height 64 in Body Mass Index Calculated 29.79 kg/m2 Body Surface Area Calculated 1.84 m2 :37 Temperature 97.8 f Comments: Method: Oral Pulse 72 /min Comments: Pattern: Regular BP Systolic 124 mm[Hg] Comments: Patient Position: Sitting; Cuff Location: Left Arm; Cuff Size: Standard BP Diastolic 70 mm[Hg] Comments: Patient Position: Sitting; Cuff Location: Left Arm; Cuff Size: Standard Weight 169 lb Height 64 in Body Mass Index Calculated 29.01 kg/m2 Body Surface Area Calculated 1.82 m2 :09 Temperature 98.5 f Pulse 72 /min Comments: Pattern: Regular Respiration Rate 16 /min Comments: Pattern: Unlabored BP Systolic 124 mm[Hg] Comments: Patient Position: Sitting; Cuff Location: Left Arm; Cuff Size: Large BP Diastolic 64 mm[Hg] Comments: Patient Position: Sitting; Cuff Location: Left Arm; Cuff Size: Large Weight 169 lb Height 64 in Body Mass Index Calculated 29.01 kg/m2 Body Surface Area Calculated 1.82 m2 :41 Temperature 98.2 f Pulse 84 /min Comments: Pattern: Regular Respiration Rate 18 /min Comments: Pattern: Unlabored BP Systolic 110 mm[Hg] Comments: Patient Position: Sitting; Cuff Location: Left Arm; Cuff Size: Large BP Diastolic 62 mm[Hg] Comments: Patient Position: Sitting; Cuff Location: Left Arm; Cuff Size: Large Weight 169 lb Height 64 in Body Mass Index Calculated 29.01 kg/m2 Body Surface Area Calculated 1.82 m2 :48 Temperature 98 f Comments: Method: Oral Pulse 80 /min Comments: Pattern: Regular O2 SAT 98 % Comments: Room air BP Systolic 108 mm[Hg] Comments: Patient Position: Sitting; Cuff Location: Left Arm; Cuff Size: Standard BP Diastolic 68 mm[Hg] Comments: Patient Position: Sitting; Cuff Location: Left Arm; Cuff Size: Standard Weight 159 lb Height 63.75 in Body Mass Index Calculated 27.51 kg/m2 Body Surface Area Calculated 1.77 m2 :45 Temperature 98.2 f Pulse 60 /min Comments: Pattern: Regular Respiration Rate 16 /min Comments: Pattern: Unlabored BP Systolic 122 mm[Hg] Comments: Patient Position: Sitting; Cuff Location: Left Arm; Cuff Size: Standard BP Diastolic 62 mm[Hg] Comments: Patient Position: Sitting; Cuff Location: Left Arm; Cuff Size: Standard Weight 159 lb Height 63.75 in Body Mass Index Calculated 27.51 kg/m2 Body Surface Area Calculated 1.77 m2 :26 Temperature 98 f Comments: Method: Oral Pulse 60 /min Comments: Pattern: Regular Respiration Rate 16 /min Comments: Pattern: Unlabored BP Systolic 110 mm[Hg] Comments: Patient Position: Sitting; Cuff Location: Left Arm; Cuff Size: Standard BP Diastolic 70 mm[Hg] Comments: Patient Position: Sitting; Cuff Location: Left Arm; Cuff Size: Standard Weight 154 lb :37 Temperature 97.8 f Comments: Method: Oral Pulse 80 /min Comments: Pattern: Regular Respiration Rate 18 /min Comments: Pattern: Unlabored O2 SAT 98 % Comments: Room air BP Systolic 112 mm[Hg] Comments: Patient Position: Sitting; Cuff Location: Left Arm; Cuff Size: Standard BP Diastolic 70 mm[Hg] Comments: Patient Position: Sitting; Cuff Location: Left Arm; Cuff Size: Standard Weight 154 lb :22 Temperature 97.6 f Pulse 72 /min Comments: Pattern: Regular Respiration Rate 18 /min Comments: Pattern: Unlabored BP Systolic 118 mm[Hg] Comments: Patient Position: Sitting; Cuff Location: Left Arm; Cuff Size: Standard BP Diastolic 70 mm[Hg] Comments: Patient Position: Sitting; Cuff Location: Left Arm; Cuff Size: Standard Weight 154 lb :13 Temperature 97.9 f Comments: Method: Oral Pulse 76 /min Comments: Pattern: Regular Respiration Rate 16 /min Comments: Pattern: Unlabored O2 SAT 97 % Comments: Room air BP Systolic 124 mm[Hg] Comments: Patient Position: Sitting; Cuff Location: Left Arm; Cuff Size: Standard BP Diastolic 74 mm[Hg] Comments: Patient Position: Sitting; Cuff Location: Left Arm; Cuff Size: Standard Weight 160 lb :28 Temperature 97.9 f Pulse 88 /min Comments: Pattern: Regular Respiration Rate 18 /min Comments: Pattern: Unlabored BP Systolic 120 mm[Hg] Comments: Patient Position: Sitting; Cuff Location: Left Arm; Cuff Size: Standard BP Diastolic 66 mm[Hg] Comments: Patient Position: Sitting; Cuff Location: Left Arm; Cuff Size: Standard Weight 160 lb :32 Temperature 97.7 f Comments: Method: Oral Pulse 80 /min Comments: Pattern: Regular Respiration Rate 18 /min Comments: Pattern: Unlabored BP Systolic 118 mm[Hg] Comments: Patient Position: Sitting; Cuff Location: Left Arm; Cuff Size: Standard BP Diastolic 72 mm[Hg] Comments: Patient Position: Sitting; Cuff Location: Left Arm; Cuff Size: Standard Weight 169.125 lb :46 Temperature 97.7 f Pulse 80 /min Comments: Pattern: Regular Respiration Rate 18 /min Comments: Pattern: Unlabored BP Systolic 120 mm[Hg] Comments: Patient Position: Sitting; Cuff Location: Left Arm; Cuff Size: Large BP Diastolic 64 mm[Hg] Comments: Patient Position: Sitting; Cuff Location: Left Arm; Cuff Size: Large Weight 178 lb :01 BP Systolic 160 mm[Hg] Comments: Patient Position: Sitting; Cuff Location: Left Arm; Cuff Size: Standard BP Diastolic 82 mm[Hg] Comments: Patient Position: Sitting; Cuff Location: Left Arm; Cuff Size: Standard :33 Temperature 97.6 f Pulse 68 /min Comments: Pattern: Regular Respiration Rate 18 /min Comments: Pattern: Unlabored BP Systolic 136 mm[Hg] Comments: Patient Position: Sitting; Cuff Location: Left Arm; Cuff Size: Standard BP Diastolic 76 mm[Hg] Comments: Patient Position: Sitting; Cuff Location: Left Arm; Cuff Size: Standard Weight 181 lb :13 Temperature 97.6 f Comments: Method: Oral Pulse 74 /min Comments: Pattern: Regular Respiration Rate 16 /min Comments: Pattern: Unlabored BP Systolic 118 mm[Hg] Comments: Patient Position: Sitting; Cuff Location: Left Arm; Cuff Size: Standard BP Diastolic 78 mm[Hg] Comments: Patient Position: Sitting; Cuff Location: Left Arm; Cuff Size: Standard Weight 0 lb Height 0 in Head Circumference 0.00 cm :20 Pulse 76 /min Comments: Pattern: Regular Respiration Rate 16 /min Comments: Pattern: Undefined BP Systolic 116 mm[Hg] Comments: Patient Position: Sitting; Cuff Location: Left Arm; Cuff Size: Large BP Diastolic 68 mm[Hg] Comments: Patient Position: Sitting; Cuff Location: Left Arm; Cuff Size: Large Weight 174 lb Height 0 in Head Circumference 0.00 cm :07 Temperature 98.2 f Comments: Method: Oral Pulse 72 /min Comments: Pattern: Regular Respiration Rate 16 /min Comments: Pattern: Unlabored BP Systolic 110 mm[Hg] Comments: Patient Position: Sitting; Cuff Location: Left Arm; Cuff Size: Large BP Diastolic 76 mm[Hg] Comments: Patient Position: Sitting; Cuff Location: Left Arm; Cuff Size: Large Weight 0 lb Height 0 in Head Circumference 0.00 cm :04 Temperature 98 f Comments: Method: Undefined Pulse 76 /min Comments: Pattern: Regular Respiration Rate 18 /min Comments: Pattern: Undefined BP Systolic 122 mm[Hg] Comments: Patient Position: Sitting; Cuff Location: Left Arm; Cuff Size: Large BP Diastolic 68 mm[Hg] Comments: Patient Position: Sitting; Cuff Location: Left Arm; Cuff Size: Large Weight 174 lb Height 64 in Body Mass Index Calculated 29.87 kg/m2 Body Surface Area Calculated 1.84 m2 Head Circumference 0.00 cm :45 Temperature 98.2 f Comments: Method: Undefined Pulse 88 /min Comments: Pattern: Regular Respiration Rate 18 /min Comments: Pattern: Undefined BP Systolic 118 mm[Hg] Comments: Patient Position: Sitting; Cuff Location: Left Arm; Cuff Size: Large BP Diastolic 70 mm[Hg] Comments: Patient Position: Sitting; Cuff Location: Left Arm; Cuff Size: Large Weight 174 lb Height 64.25 in Body Mass Index Calculated 29.63 kg/m2 Body Surface Area Calculated 1.85 m2 Head Circumference 0.00 cm :44 Temperature 98 f Comments: Method: Oral Pulse 75 /min Comments: Pattern: Regular Respiration Rate 20 /min Comments: Pattern: Unlabored O2 SAT 96 % Comments: Room air BP Systolic 124 mm[Hg] Comments: Patient Position: Sitting; Cuff Location: Left Arm; Cuff Size: Standard BP Diastolic 78 mm[Hg] Comments: Patient Position: Sitting; Cuff Location: Left Arm; Cuff Size: Standard Weight 175 lb Height 0 in Head Circumference 0.00 cm :28 Temperature 98.3 f Comments: Method: Undefined Pulse 72 /min Comments: Pattern: Regular Respiration Rate 16 /min Comments: Pattern: Undefined BP Systolic 124 mm[Hg] Comments: Patient Position: Sitting; Cuff Location: Left Arm; Cuff Size: Large BP Diastolic 84 mm[Hg] Comments: Patient Position: Sitting; Cuff Location: Left Arm; Cuff Size: Large Weight 175 lb Height 0 in Head Circumference 0.00 cm :08 Temperature 98.6 f Comments: Method: Undefined Pulse 84 /min Comments: Pattern: Regular Respiration Rate 18 /min Comments: Pattern: Undefined BP Systolic 126 mm[Hg] Comments: Patient Position: Sitting; Cuff Location: Left Arm; Cuff Size: Standard BP Diastolic 72 mm[Hg] Comments: Patient Position: Sitting; Cuff Location: Left Arm; Cuff Size: Standard Weight 179 lb Height 0 in Head Circumference 0.00 cm :39 Temperature 98.5 f Comments: Method: Undefined Pulse 88 /min Comments: Pattern: Regular Respiration Rate 18 /min Comments: Pattern: Undefined BP Systolic 140 mm[Hg] Comments: Patient Position: Sitting; Cuff Location: Left Arm; Cuff Size: Standard BP Diastolic 98 mm[Hg] Comments: Patient Position: Sitting; Cuff Location: Left Arm; Cuff Size: Standard Weight 0 lb Height 0 in Head Circumference 0.00 cm :33 Pulse 88 /min Comments: Pattern: Regular Respiration Rate 16 /min Comments: Pattern: Unlabored BP Systolic 122 mm[Hg] Comments: Patient Position: Sitting; Cuff Location: Left Arm; Cuff Size: Standard BP Diastolic 68 mm[Hg] Comments: Patient Position: Sitting; Cuff Location: Left Arm; Cuff Size: Standard Weight 184.1875 lb Height 64 in Body Mass Index Calculated 31.62 kg/m2 Body Surface Area Calculated 1.89 m2 Head Circumference 0.00 cm :56 Temperature 98 f Comments: Method: Undefined Pulse 84 /min Comments: Pattern: Regular Respiration Rate 18 /min Comments: Pattern: Undefined O2 SAT 98 % Comments: Room air BP Systolic 110 mm[Hg] Comments: Patient Position: Sitting; Cuff Location: Left Arm; Cuff Size: Large BP Diastolic 72 mm[Hg] Comments: Patient Position: Sitting; Cuff Location: Left Arm; Cuff Size: Large Weight 181 lb Height 0 in Head Circumference 0.00 cm :09 Temperature 98.4 f Comments: Method: Oral Pulse 83 /min Comments: Pattern: Regular Respiration Rate 18 /min Comments: Pattern: Unlabored O2 SAT 96 % Comments: Room air BP Systolic 120 mm[Hg] Comments: Patient Position: Sitting; Cuff Location: Left Arm; Cuff Size: Standard BP Diastolic 80 mm[Hg] Comments: Patient Position: Sitting; Cuff Location: Left Arm; Cuff Size: Standard Weight 0 lb Height 0 in Head Circumference 0.00 cm :41 Temperature 98.4 f Comments: Method: Oral Pulse 80 /min Comments: Pattern: Regular Respiration Rate 16 /min Comments: Pattern: Unlabored BP Systolic 124 mm[Hg] Comments: Patient Position: Sitting; Cuff Location: Left Arm; Cuff Size: Standard BP Diastolic 70 mm[Hg] Comments: Patient Position: Sitting; Cuff Location: Left Arm; Cuff Size: Standard Weight 187 lb Height 0 in Head Circumference 0.00 cm :41 Temperature 98.1 f Comments: Method: Oral Pulse 84 /min Comments: Pattern: Regular Respiration Rate 16 /min Comments: Pattern: Unlabored BP Systolic 134 mm[Hg] Comments: Patient Position: Sitting; Cuff Location: Left Arm; Cuff Size: Standard BP Diastolic 86 mm[Hg] Comments: Patient Position: Sitting; Cuff Location: Left Arm; Cuff Size: Standard Weight 179 lb Height 0 in Head Circumference 0.00 cm :58 Temperature 97.9 f Comments: Method: Oral Pulse 80 /min Comments: Pattern: Regular Respiration Rate 16 /min Comments: Pattern: Unlabored BP Systolic 98 mm[Hg] Comments: Patient Position: Sitting; Cuff Location: Right Arm; Cuff Size: Standard BP Diastolic 64 mm[Hg] Comments: Patient Position: Sitting; Cuff Location: Right Arm; Cuff Size: Standard Weight 175 lb Height 64.5 in Body Mass Index Calculated 29.57 kg/m2 Body Surface Area Calculated 1.86 m2 Head Circumference 0.00 cm :35 Temperature 99.1 f Comments: Method: Oral Pulse 80 /min Comments: Pattern: Regular Respiration Rate 16 /min Comments: Pattern: Unlabored BP Systolic 124 mm[Hg] Comments: Patient Position: Sitting; Cuff Location: Left Arm; Cuff Size: Standard BP Diastolic 74 mm[Hg] Comments: Patient Position: Sitting; Cuff Location: Left Arm; Cuff Size: Standard Weight 178.4375 lb Height 64.5 in Body Mass Index Calculated 30.16 kg/m2 Body Surface Area Calculated 1.87 m2 Head Circumference 0.00 cm :30 Temperature 97.9 f Comments: Method: Undefined Pulse 76 /min Comments: Pattern: Regular Respiration Rate 16 /min Comments: Pattern: Undefined BP Systolic 144 mm[Hg] Comments: Patient Position: Undefined; Cuff Location: Undefined; Cuff Size: Undefined BP Diastolic 80 mm[Hg] Comments: Patient Position: Undefined; Cuff Location: Undefined; Cuff Size: Undefined Weight 0 lb Height 0 in Head Circumference 0.00 cm :42 Temperature 98.6 f Comments: Method: Oral Respiration Rate 16 /min Comments: Pattern: Undefined BP Systolic 122 mm[Hg] Comments: Patient Position: Sitting; Cuff Location: Undefined; Cuff Size: Undefined BP Diastolic 76 mm[Hg] Comments: Patient Position: Sitting; Cuff Location: Undefined; Cuff Size: Undefined Weight 0 lb Height 0 in Head Circumference 0.00 cm :36 Temperature 97.1 f Comments: Method: Oral Pulse 78 /min Comments: Pattern: Regular Respiration Rate 20 /min Comments: Pattern: Unlabored BP Systolic 120 mm[Hg] Comments: Patient Position: Sitting; Cuff Location: Left Arm; Cuff Size: Standard BP Diastolic 80 mm[Hg] Comments: Patient Position: Sitting; Cuff Location: Left Arm; Cuff Size: Standard Weight 189.0375 lb Height 0 in Head Circumference 0.00 cm Results Date Description Value Details 61-Bsp-418512:35 RSV Ag (Rapid LEVI) Comments: [facility] B[address]iv[address] [place], [address] RSV Ag (LEVI) See Note (Normal) Comments: RSV Ag (LEVI)Normal Reference Range = Negative RSV Ag NEGATIVE 3-Fht-842113:56 HgA1C , Office (94659) HgA1C , Office 5.5 % (Normal) Range: 4.6 - 7.1 7-Ysa-007640:56 Blood Glucose , Office (95763) Blood Glucose , Office 86 (Normal) C difficile Toxins A+B, Negative (Normal) Comments: PATIENT NOT FASTINGPERFORMED BY: [facility] Pmizhp5365 [facility] [id number] Information: [id number] 5:32 EIA NTI Miscellaneous COMMNT (Normal) Comments: PATIENT NOT FASTINGPERFORMED BY: [facility] Enpxbm7421 [facility] [id number] 5:32 Comments: Test not indicated.. Written Authorization WAR (Normal) Comments: PATIENT NOT FASTINGPERFORMED BY: [facility] [id number] [facility] [id number] 5:32 Comments: Written Authorization Received.Authorization received from Original requisition [id number] by Wednesday Dawson 24-Pcv-097784:31 OCCULT BLOOD FECES Comments: PATIENT NOT FASTINGPERFORMED BY: [facility] Lvjfaa9851 [facility] [id number] Information: SRC:STOOL = FECAL [id number] SCREEN (49556) Occult Blood, Fecal, IA Negative (Normal) 82-Cqm-596100:32 OVA & PARASITE DIR SMEAR Comments: PATIENT NOT FASTINGPERFORMED BY: [facility] Cnjvfn3375 [facility] [id number] (76685) Result 1 NOCP (Normal) Comments: No ova, cysts, or parasites seen. Ova + Parasite Exam Final report (Normal) Comments: These results were obtained using wet preparation(s) and trichromestained smear. This test does not include testing for Cryptosporidiumparvum, Cyclospora, or Microsporidia. 09-Jlx-952919:32 LEUKOCYTE COUNT, FECAL Comments: PATIENT NOT FASTINGPERFORMED BY: [employer] [facility] [id number] (79822) Result 1 WCM (Abnormal) Comments: Moderate amount of white blood cells. White Blood Cells (WBC), Final report (Abnormal) Stool 64-Ebk-576364:32 WON CULTURE-STOOL (05412) Comments: PATIENT NOT FASTINGPERFORMED BY: [employer] [facility] [id number] Information: [id number] E coli Shiga Toxin EIA Negative (Normal) Result 1 NCI (Normal) Comments: No Campylobacter species isolated. Campylobacter Culture Final report (Normal) Result 1 NSS (Normal) Comments: No Salmonella or Shigella recovered. Salmonella/Shigella Screen Final report (Normal) 6-Kev-976675:10 Blood Glucose , Office (64776) Blood Glucose , Office 79 (Normal) 4-Xxv-136266:10 HgA1C , Office (82746) HgA1C , Office 5.3 % (Normal) Range: 4.6 - 7.1 4-Bzy-921955:02 CBC With Differential/Platelet Comments: PATIENT WAS FASTINGPERFORMED BY: [employer] Jhtcmq1671 [facility] [id number] Immature Grans (Abs) 0.0 {x10E3/uL} (Normal) Range: 0.0-0.1 Immature Granulocytes 0 % (Normal) Baso (Absolute) 0.0 {x10E3/uL} (Normal) Range: 0.0-0.2 Eos (Absolute) 0.3 {x10E3/uL} (Normal) Range: 0.0-0.4 Monocytes(Absolute) 0.7 {x10E3/uL} (Normal) Range: 0.1-0.9 Lymphs (Absolute) 1.0 {x10E3/uL} (Normal) Range: 0.7-3.1 Neutrophils (Absolute) 4.3 {x10E3/uL} (Normal) Range: 1.4-7.0 Basos 0 % (Normal) Eos 5 % (Normal) Monocytes 11 % (Normal) Lymphs 15 % (Normal) Neutrophils 69 % (Normal) Platelets 260 {x10E3/uL} (Normal) Range: 150-379 RDW 14.3 % (Normal) Range: 12.3-15.4 MCHC 31.5 g/dL (Normal) Range: 31.5-35.7 MCH 28.0 pg (Normal) Range: 26.6-33.0 MCV 89 fL (Normal) Range: 79-97 Hematocrit 34.3 % (Normal) Range: 34.0-46.6 Hemoglobin 10.8 g/dL (Abnormal) Range: 11.1-15.9 RBC 3.86 {x10E6/uL} (Normal) Range: 3.77-5.28 WBC 6.3 {x10E3/uL} (Normal) Range: 3.4-10.8 9-Zzm-846159:02 Comp. Metabolic Panel (14) Comments: PATIENT WAS FASTINGPERFORMED BY: [facility] CenterJefukf2514 [facility] [id number] ALT (SGPT) 12 [iU]/L (Normal) Range: 0-32 AST (SGOT) 18 [iU]/L (Normal) Range: 0-40 Alkaline Phosphatase 91 [iU]/L (Normal) Range: 39-117 Bilirubin, Total 0.3 mg/dL (Normal) Range: 0.0-1.2 A/G Ratio 2.2 (Normal) Range: 1.2-2.2 Globulin, Total 2.0 g/dL (Normal) Range: 1.5-4.5 Albumin 4.3 g/dL (Normal) Range: 3.5-4.8 Protein, Total 6.3 g/dL (Normal) Range: 6.0-8.5 Calcium 9.4 mg/dL (Normal) Range: 8.7-10.3 Carbon Dioxide, Total 24 mmol/L (Normal) Range: 18-29 Comments: Effective April 18, 2018 Carbon Dioxide, Total reference interval will be changing to: Age Male Female 0 days - 30 days 16 - 29 16 - 29 31 days - 1 year 15 - 25 15 - 25 2 years - 5 years 17 - 26 17 - 26 6 y ears - 12 years 19 - 19 - 27 >12 years 20 - 20 - Chloride 102 mmol/L (Normal) Range: 96-106 Potassium 4.6 mmol/L (Normal) Range: 3.5-5.2 Sodium 143 mmol/L (Normal) Range: 134-144 BUN/Creatinine Ratio 18 (Normal) Range: 12-28 eGFR If Africn Am 91 mL/min/1.73 (Normal) eGFR If NonAfricn Am 79 mL/min/1.73 (Normal) Creatinine 0.76 mg/dL (Normal) Range: 0.57-1.00 BUN 14 mg/dL (Normal) Range: 8-27 Glucose 92 mg/dL (Normal) Range: 65-99 4-Ist-497939:02 Lipid Panel With LDL/HDL Comments: PATIENT WAS FASTINGPERFORMED BY: [employer]ai [employer] [facility] [id number]; ov 6/7 Ratio LDL/HDL Ratio 1.5 {ratio} Range: 0.0-3.2 (Normal) Comments: LDL/HDL Ratio Men Women 1/2 Avg.Risk 1.0 1.5 Av g.Risk 3.6 3.2 2X Avg.Risk 6.2 5.0 3X Avg.Risk 8.0 6.1 LDL Cholesterol Calc 116 mg/dL Range: 0-99 (Abnormal) VLDL Cholesterol Sumeet 21 mg/dL (Normal) Range: 5-40 HDL Cholesterol 75 mg/dL (Normal) Triglycerides 105 mg/dL (Normal) Range: 0-149 Cholesterol, Total 212 mg/dL Range: 100-199 (Abnormal) : TSH 3.240 {uIU/mL} Comments: PATIENT WAS FASTINGPERFORMED BY: Bidstalk6370 [facility] [id number] 02 (Normal) Range: 0.450-4.500 65-Lae-394864:54 CBC-Complete Blood Cnt No Diff Comments: [facility] [address] [place], [address] MPV 9.2 fL (Normal) Range: 6.2-12.0 PLT 409 K/mm3 (Normal) Range: 150-450 RDW SD 45.3 fL (Abnormal) Range: 35.1-43.9 RDW CV 14.0 % (Normal) Range: 11.6-14.6 MCHC 31.7 {g/gl} (Abnormal) Range: 32-36 MCH 28.7 pg (Normal) Range: 27.0-32.0 MCV 90.6 fL (Normal) Range: 81-99 HCT 34.7 % (Abnormal) Range: 37-47 HGB 11.0 g/dL (Abnormal) Range: 12.0-15.0 RBC 3.83 {M/mm3} (Abnormal) Range: 4.2-5.4 WBC 6.8 K/mm3 (Normal) Range: 4.4-11.0 2-Ivx-643799:28 HgA1C , Office (69404) HgA1C , Office 5.3 % (Normal) Range: 4.6 - 7.1 7-Ndk-859430:28 Blood Glucose , Office (67611) Blood Glucose , Office 93 (Normal) 03-Wsa-094646:26 Microscopic Examination Comments: PATIENT WAS FASTINGPERFORMED BY: [employer] [facility] [id number] Bacteria None seen (Normal) Mucus Threads Present (Normal) Crystal Type Calcium Oxalate (Normal) Crystals Present (Abnormal) Cast Type Hyaline casts (Normal) Casts Present {/lpf} (Abnormal) Epithelial Cells (non renal) None seen {/hpf} (Normal) Range: 0 - 10 RBC None seen {/hpf} (Normal) Range: 0 - 2 WBC 0-5 {/hpf} (Normal) Range: 0 - 5 57-Akp-378481:26 TSH (62006) Comments: PATIENT WAS FASTINGPERFORMED BY: [employer] Qzakkl7488 [facility] [id number] TSH 3.380 {uIU/mL} (Normal) Range: 0.450-4.500 47-Nxy-146564:26 URINALYSIS, W/ MICRO (62562) Comments: PATIENT WAS FASTINGPERFORMED BY: [employer] Pozzcn9823 [facility] [id number] Microscopic Examination See below: (Normal) Comments: Microscopic was indicated and was performed. Microscopic Examination MICRON (Normal) Comments: Microscopic follows if indicated. Nitrite, Urine Negative (Normal) Urobilinogen,Semi-Qn 0.2 mg/dL (Normal) Range: 0.2-1.0 Bilirubin Negative (Normal) Occult Blood Negative (Normal) Ketones Negative (Normal) Glucose Negative (Normal) Protein Negative (Normal) WBC Esterase Negative (Normal) Appearance Clear (Normal) Urine-Color Yellow (Normal) pH 5.0 (Normal) Range: 5.0-7.5 Specific [place] 1.025 (Normal) Range: 1.005-1.030 35-Fgd-024108:26 MICROALBUMIN: CREATININE RATIO Comments: PATIENT WAS FASTINGPERFORMED BY: [employer]Certo.comlin6370 [facility] [id number] (25240) AND (54025) Microalb/Creat Ratio 5.4 {mg/g_creat} (Normal) Range: 0.0-30.0 Creatinine, Urine 222.5 mg/dL (Normal) Microalbumin, Urine 12.1 ug/mL (Normal) 52-Oqv-014238:26 METABOLIC PANEL, COMPREHENSIVE Comments: PATIENT WAS FASTINGPERFORMED BY: [employer] [facility] [id number] (36011) ALT (SGPT) 38 [iU]/L (Abnormal) Range: 0-32 AST (SGOT) 36 [iU]/L (Normal) Range: 0-40 Alkaline Phosphatase, S 88 [iU]/L (Normal) Range: 39-117 Bilirubin, Total 0.2 mg/dL (Normal) Range: 0.0-1.2 A/G Ratio 2.0 (Normal) Range: 1.2-2.2 Globulin, Total 2.2 g/dL (Normal) Range: 1.5-4.5 Albumin, Serum 4.3 g/dL (Normal) Range: 3.5-4.8 Protein, Total, Serum 6.5 g/dL (Normal) Range: 6.0-8.5 Calcium, Serum 9.4 mg/dL (Normal) Range: 8.7-10.3 Carbon Dioxide, Total 29 mmol/L (Normal) Range: 18-29 Chloride, Serum 102 mmol/L (Normal) Range: 96-106 Potassium, Serum 4.3 mmol/L (Normal) Range: 3.5-5.2 Sodium, Serum 144 mmol/L (Normal) Range: 134-144 BUN/Creatinine Ratio 17 (Normal) Range: 12-28 eGFR If Africn Am 91 mL/min/1.73 (Normal) eGFR If NonAfricn Am 79 mL/min/1.73 (Normal) Creatinine, Serum 0.76 mg/dL (Normal) Range: 0.57-1.00 BUN 13 mg/dL (Normal) Range: 8-27 Glucose, Serum 94 mg/dL (Normal) Range: 65-99 15-Aff-437038:26 LIPID PANEL (33924) Comments: PATIENT WAS FASTINGPERFORMED BY: [facility] [id number] LDL/HDL Ratio 1.6 {ratio_units} (Normal) Range: 0.0-3.2 Comments: LDL/HDL Ratio Men Women 1/2 Avg.Risk 1.0 1.5 Av g.Risk 3.6 3.2 2X Avg.Risk 6.2 5.0 3X Avg.Risk 8.0 6.1 LDL Cholesterol Calc 104 mg/dL (Abnormal) Range: 0-99 VLDL Cholesterol Sumeet 28 mg/dL (Normal) Range: 5-40 HDL Cholesterol 66 mg/dL (Normal) Triglycerides 139 mg/dL (Normal) Range: 0-149 Cholesterol, Total 198 mg/dL (Normal) Range: 100-199 71-Mwx-394227:26 CBC W/AUTO DIFF WBC (42218) Comments: PATIENT WAS FASTINGPERFORMED BY: [employer]70 [facility] [id number] Immature Grans (Abs) 0.0 {x10E3/uL} (Normal) Range: 0.0-0.1 Immature Granulocytes 0 % (Normal) Baso (Absolute) 0.0 {x10E3/uL} (Normal) Range: 0.0-0.2 Eos (Absolute) 0.3 {x10E3/uL} (Normal) Range: 0.0-0.4 Monocytes(Absolute) 0.5 {x10E3/uL} (Normal) Range: 0.1-0.9 Lymphs (Absolute) 1.9 {x10E3/uL} (Normal) Range: 0.7-3.1 Neutrophils (Absolute) 2.6 {x10E3/uL} (Normal) Range: 1.4-7.0 Basos 0 % (Normal) Eos 5 % (Normal) Monocytes 10 % (Normal) Lymphs 35 % (Normal) Neutrophils 50 % (Normal) Platelets 272 {x10E3/uL} (Normal) Range: 150-379 RDW 13.7 % (Normal) Range: 12.3-15.4 MCHC 32.9 g/dL (Normal) Range: 31.5-35.7 MCH 29.4 pg (Normal) Range: 26.6-33.0 MCV 89 fL (Normal) Range: 79-97 Hematocrit 38.0 % (Normal) Range: 34.0-46.6 Hemoglobin 12.5 g/dL (Normal) Range: 11.1-15.9 RBC 4.25 {x10E6/uL} (Normal) Range: 3.77-5.28 WBC 5.3 {x10E3/uL} (Normal) Range: 3.4-10.8 :22 Blood Glucose , Office (33273) Blood Glucose , Office 102 (Normal) 2-Vft-007872:22 HgA1C , Office (19953) HgA1C , Office 5.5 % (Normal) Range: 4.6 - 7.1 15-Apr-20178:00 Pathology Report Comments: PERFORMED BY: KWCYT [facility] [place] Cyto Qsehc69483 [facility] [id number] BY: [facility] Dermatopathology Ewwvchj135 [address] [id number] Information: [id number] See MATER Comments: Material submitted: .RIGHT ARM SHAVEClinician provided ICD-10:L98.9Clinical history: .IRREG BORDERS RED BASE SCALE TEXTURE Note (Normal) ROUGH BASAL VS SQUAMOUSDiagnosis: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 THESURGICAL MARGIN IS INKED BLACK. THE SPECIMEN IS TRISECTED. IT ISSUBMITTED ENTIRELY IN CASSETTE(S) A./LMSLMS/LMSPathologist p rovided ICD-10:L44.9, D23.61CPT .[id number] 71-Wot-168311:27 LIPID PANEL (98070) Comments: PATIENT WAS FASTINGPERFORMED BY: [facility]CoHam[facility] CenterBlffen4669 [facility] [id number] LDL/HDL Ratio 1.5 {ratio_units} (Normal) Range: 0.0-3.2 Comments: LDL/HDL Ratio Men Women 1/2 Avg.Risk 1.0 1.5 Av g.Risk 3.6 3.2 2X Avg.Risk 6.2 5.0 3X Avg.Risk 8.0 6.1 LDL Cholesterol Calc 101 mg/dL (Abnormal) Range: 0-99 VLDL Cholesterol Sumeet 18 mg/dL (Normal) Range: 5-40 HDL Cholesterol 69 mg/dL (Normal) Triglycerides 90 mg/dL (Normal) Range: 0-149 Cholesterol, Total 188 mg/dL (Normal) Range: 100-199 7-Fcy-843155:45 HgA1C , Office (42776) HgA1C , Office 5.4 % (Normal) Range: 4.6 - 7.1 :45 Blood Glucose , Office (27654) Blood Glucose , Office 86 (Normal) :0 C difficile Toxins Negative (Normal) Comments: PATIENT NOT FASTINGPERFORMED BY: [facility]6370 [facility] [id number] 5 A+B, EIA :05 Giardia, EIA, Ova/Parasite Comments: PATIENT NOT FASTINGPERFORMED BY: [facility] Kthktj9514 [facility] [id number] Giardia lamblia Ag, Negative (Normal) EIA Result 1 NOCP (Normal) Comments: No ova, cysts, or parasites seen. Ova + Parasite Exam Final report Comments: These results were obtained using wet preparation(s) and trichromestained smear. This test does not include testing for Cryptosporidiumparvum, Cyclospora, or Microsporidia. (Normal) :0 Occult Blood, Fecal, Negative (Normal) Comments: PATIENT NOT FASTINGPERFORMED BY: [facility]6370 [facility] [id number] 5 IA :05 Stool Culture Comments: PATIENT NOT FASTINGPERFORMED BY: [facility]6370 [facility] [id number] Information: SRC:ST SRC:ST E coli Shiga Toxin EIA Negative (Normal) Result 1 NCI (Normal) Comments: No Campylobacter species isolated. Campylobacter Culture Final report (Normal) Result 1 NSS (Normal) Comments: No Salmonella or Shigella recovered. Salmonella/Shigella Screen Final report (Normal) :05 White Blood Cells (WBC), Comments: PATIENT NOT FASTINGPERFORMED BY: [facility]6370 [facility] [id number] Stool Result 1 NWBC (Normal) Comments: No white blood cells seen. White Blood Cells (WBC), Final report (Normal) Stool 4-Xvi-646606:00 CBC W/AUTO DIFF WBC (25883) Comments: PATIENT NOT FASTINGPERFORMED BY: [facility]6370 [facility] [id number] Immature Grans (Abs) 0.0 {x10E3/uL} (Normal) Range: 0.0-0.1 Immature Granulocytes 0 % (Normal) Baso (Absolute) 0.0 {x10E3/uL} (Normal) Range: 0.0-0.2 Eos (Absolute) 0.2 {x10E3/uL} (Normal) Range: 0.0-0.4 Monocytes(Absolute) 0.6 {x10E3/uL} (Normal) Range: 0.1-0.9 Lymphs (Absolute) 1.6 {x10E3/uL} (Normal) Range: 0.7-3.1 Neutrophils (Absolute) 3.3 {x10E3/uL} (Normal) Range: 1.4-7.0 Basos 0 % (Normal) Eos 3 % (Normal) Monocytes 10 % (Normal) Lymphs 29 % (Normal) Neutrophils 58 % (Normal) Platelets 252 {x10E3/uL} (Normal) Range: 150-379 RDW 14.1 % (Normal) Range: 12.3-15.4 MCHC 33.1 g/dL (Normal) Range: 31.5-35.7 MCH 29.5 pg (Normal) Range: 26.6-33.0 MCV 89 fL (Normal) Range: 79-97 Hematocrit 36.9 % (Normal) Range: 34.0-46.6 Hemoglobin 12.2 g/dL (Normal) Range: 11.1-15.9 RBC 4.13 {x10E6/uL} (Normal) Range: 3.77-5.28 WBC 5.7 {x10E3/uL} (Normal) Range: 3.4-10.8 65-Awc-164370:54 AFP, Tumor Marker Comments: Is [facility] ? [facility] (refer to report for specific site)refer to report for address and phone number AFP TUMOR 2253 9.5 ng/mL (Abnormal) Range: 0.0-8.3 Comments: Izaiah ECLIA methodologyPerformed at: - [facility] [id number] Director: Zander Saunders PhD, Phone: [phone] 65-Ddh-737333:28 MICROALBUMIN: CREATININE RATIO Comments: PATIENT WAS FASTINGPERFORMED BY: [employer] [id number] (01554) AND (44512) Microalb/Creat Ratio 11.8 {mg/g_creat} (Normal) Range: 0.0-30.0 Microalbumin, Urine 27.0 ug/mL (Normal) Creatinine, Urine 229.1 mg/dL (Normal) :28 CALCIFEDIOL (65758) Comments: PATIENT WAS FASTINGPERFORMED BY: [employer] Bbppef7637 [facility] [id number] Vitamin D, 25-Hydroxy 49.4 ng/mL (Normal) Range: 30.0-100.0 Comments: Vitamin D deficiency has been defined by the [place] of[place] and an Endocrine Society practice guideline as alevel of serum 25-OH vitamin D less than 20 ng/mL (1,2).The Endocrine Society went on to further define vitamin Dinsufficiency as a level between 21 and 29 ng/mL (2).1. IOM ([place] [employer]). 2010. Dietary reference intakes for calcium and D. [place]: The National Academies Press.2. Hannah MF, Hilda NC, Cindy FREED, et al. Evaluation, treatment, and prevention of vitamin D deficiency: an Endocrine Society clinical practice guideline. JCEM. 2010; 96(7):1911-30. 56-Nog-140188:28 TSH (THYROID STIMULATING Comments: PATIENT WAS FASTINGPERFORMED BY: [employer] Hflshh2211 [facility] [id number] HORMONE) (51727) TSH 2.320 {uIU/mL} (Normal) Range: 0.450-4.500 86-Yee-450803:28 LIPID PANEL (78693) Comments: PATIENT WAS FASTINGPERFORMED BY: [facility]ilesHam[facility] Health CenterVktzrp4887 [facility] [id number] LDL/HDL Ratio 1.2 {ratio_units} (Normal) Range: 0.0-3.2 Comments: LDL/HDL Ratio Men Women 1/2 Avg.Risk 1.0 1.5 Av g.Risk 3.6 3.2 2X Avg.Risk 6.2 5.0 3X Avg.Risk 8.0 6.1 LDL Cholesterol Calc 95 mg/dL (Normal) Range: 0-99 VLDL Cholesterol Sumeet 25 mg/dL (Normal) Range: 5-40 HDL Cholesterol 79 mg/dL (Normal) Triglycerides 126 mg/dL (Normal) Range: 0-149 Cholesterol, Total 199 mg/dL (Normal) Range: 100-199 61-Kvp-016241:28 METABOLIC PANEL, COMPREHENSIVE Comments: PATIENT WAS FASTINGPERFORMED BY: [employer] Gzqnwz0006 [facility] [id number] (06517) ALT (SGPT) 16 [iU]/L (Normal) Range: 0-32 AST (SGOT) 22 [iU]/L (Normal) Range: 0-40 Alkaline Phosphatase, S 65 [iU]/L (Normal) Range: 39-117 Bilirubin, Total 0.4 mg/dL (Normal) Range: 0.0-1.2 A/G Ratio 2.4 (Abnormal) Range: 1.2-2.2 Globulin, Total 1.8 g/dL (Normal) Range: 1.5-4.5 Albumin, Serum 4.4 g/dL (Normal) Range: 3.5-4.8 Protein, Total, Serum 6.2 g/dL (Normal) Range: 6.0-8.5 Calcium, Serum 9.0 mg/dL (Normal) Range: 8.7-10.3 Carbon Dioxide, Total 22 mmol/L (Normal) Range: 18-29 Chloride, Serum 103 mmol/L (Normal) Range: 96-106 Potassium, Serum 4.4 mmol/L (Normal) Range: 3.5-5.2 Sodium, Serum 143 mmol/L (Normal) Range: 134-144 BUN/Creatinine Ratio 21 (Normal) Range: 12-28 eGFR If Africn Am 88 mL/min/1.73 (Normal) eGFR If NonAfricn Am 77 mL/min/1.73 (Normal) Creatinine, Serum 0.78 mg/dL (Normal) Range: 0.57-1.00 BUN 16 mg/dL (Normal) Range: 8-27 Glucose, Serum 99 mg/dL (Normal) Range: 65-99 39-Zpa-636467:28 CBC, PLATELETS & AUT DIFF Comments: PATIENT WAS FASTINGPERFORMED BY: [facility]ilesM[facility] Regional Medical CenterVuctdw5746 [facility] [id number]; fu 5/4 KF (81442) Immature Grans (Abs) 0.0 {x10E3/uL} (Normal) Range: 0.0-0.1 Immature Granulocytes 0 % (Normal) Baso (Absolute) 0.0 {x10E3/uL} (Normal) Range: 0.0-0.2 Eos (Absolute) 0.2 {x10E3/uL} (Normal) Range: 0.0-0.4 Monocytes(Absolute) 0.5 {x10E3/uL} (Normal) Range: 0.1-0.9 Lymphs (Absolute) 1.6 {x10E3/uL} (Normal) Range: 0.7-3.1 Neutrophils (Absolute) 2.5 {x10E3/uL} (Normal) Range: 1.4-7.0 Basos 0 % (Normal) Eos 4 % (Normal) Monocytes 10 % (Normal) Lymphs 34 % (Normal) Neutrophils 52 % (Normal) Platelets 256 {x10E3/uL} (Normal) Range: 150-379 RDW 15.1 % (Normal) Range: 12.3-15.4 MCHC 32.5 g/dL (Normal) Range: 31.5-35.7 MCH 29.0 pg (Normal) Range: 26.6-33.0 MCV 90 fL (Normal) Range: 79-97 Hematocrit 38.2 % (Normal) Range: 34.0-46.6 Hemoglobin 12.4 g/dL (Normal) Range: 11.1-15.9 RBC 4.27 {x10E6/uL} (Normal) Range: 3.77-5.28 WBC 4.7 {x10E3/uL} (Normal) Range: 3.4-10.8 4-Mhd-941758:51 HgA1C , Office (31770) HgA1C , Office 5.5 % (Normal) Range: 4.6 - 7.1 :51 Blood Glucose , Office (71947) Blood Glucose , Office 91 (Normal) 8-Ymk-334593:11 Serum Creatinine AND GFR Comments: STAT!!![facility] [address] [place], [place], [address] EST GFR - AA 91 mL/min (Normal) Comments: GFR Calc EST GFR 76 mL/min (Normal) Comments: Non- GFR Calc CREAT,SERUM 0.80 mg/dL (Normal) Range: 0.55-1.02 Comments: The validity of the calculated GFR AND GFRAA in patients over70 years has not been determined. Clinical correlation isessential. :05 AFP, Tumor Marker Comments: Is Patient ? [facility] (refer to report for specific site)refer to report for address and phone number AFP TUMOR 2253 10.2 ng/mL (Abnormal) Range: 0.0-8.3 Comments: [employer] ECLIA methodologyPerformed at: [facility] [address] [id number] Director: Zander Saunders PhD, Phone: [phone] :[phone] CBC W/Diff, Automated Comments: [facility] [address] [place], [place], [id number] Absolute Lymph 1.56 {X10_3/ul} (Normal) Range: 0.83-4.51 Absolute Neut 2.8 {X10_3/uL} (Normal) Range: 2.0-7.7 IM GRAN % 0.200 % (Normal) Range: 0.0-0.9 Comments: IG% - Immature Granulocytes (promyelocytes, myelocytes andmetamyelocytes) > 1% indicates that a LEFT SHIFT is Present. BASO% 0.4 % (Normal) Range: 0-1 EO% 2.6 % (Normal) Range: 0-5 MONO% 9.8 % (Normal) Range: 0-10 LY% 31.2 % (Normal) Range: 19-41 NEUT% 55.8 % (Normal) Range: 47-70 MPV 10.2 fL (Normal) Range: 6.2-12.0 PLT 273 K/mm3 (Normal) Range: 150-450 RDW SD 41.9 fL (Normal) Range: 35.1-43.9 RDW CV 12.9 % (Normal) Range: 11.6-14.6 MCHC 32.6 {g/gl} (Normal) Range: 32-36 MCH 29.2 pg (Normal) Range: 27.0-32.0 MCV 89.5 fL (Normal) Range: 81-99 HCT 40.2 % (Normal) Range: 37-47 HGB 13.1 g/dL (Normal) Range: 12.0-15.0 RBC 4.49 {M/mm3} (Normal) Range: 4.2-5.4 WBC 5.0 K/mm3 (Normal) Range: 4.4-11.0 4-Hov-802400:05 Comprehensive Metabolic Profil Comments: Is Patient Taking Vitamins or Folic Acid Supplements? [facility] [address] [place], [address] GAP 8 (Normal) Range: 5-15 CO2 29.0 mmol/L (Normal) Range: 21.0-32.0 CL 105 mmol/L (Normal) Range: 98-107 K 4.3 mmol/L (Normal) Range: 3.5-5.1 NA 142 mmol/L (Normal) Range: 136-145 T BILI 0.40 mg/dL (Normal) Range: 0.20-1.00 ALT 30 U/L (Normal) Range: 12-78 ALK P 81 U/L (Normal) Range: 50-136 AST 16 U/L (Normal) Range: 15-37 CA 8.8 mg/dL (Normal) Range: 8.5-10.1 A/G 1.3 {RATIO} (Normal) Range: 0.9-2.4 GLOB 3.1 g/dL (Normal) Range: 2.3-3.5 ALB 4.1 g/dL (Normal) Range: 3.4-5.0 T PROT 7.2 g/dL (Normal) Range: 6.4-8.2 BUN/CRE 19.8 {RATIO} (Normal) Range: 10-20 EST GFR - AA 97 mL/min (Normal) Comments: GFR Calc EST GFR 80 mL/min (Normal) Comments: Non- GFR Calc CREAT,SERUM 0.76 mg/dL (Normal) Range: 0.55-1.20 Comments: The validity of the calculated GFR AND GFRAA in patients over70 years has not been determined. Clinical correlation isessential. BUN 15 mg/dL (Normal) Range: 7-18 GLU 91 mg/dL (Normal) Range: 70-110 7-Ehf-666783:05 Folates, (Folic Acid) Comments: Is Patient Taking Vitamins or Folic Acid Supplements? [facility] [address] [place], [address] FOLATES 37.50 ng/mL (Abnormal) Range: 3.1-17.5 6-Dcs-537823:05 Lipid Profile Comments: Is Patient Taking Vitamins or Folic Acid Supplements? [facility] [address] [place], [address] VLDL 36 mg/dL (Normal) Range: 5-40 LDL 120 mg/dL (Normal) Range: 0-130 HDL 78 mg/dL (Normal) Comments: The drugs N-Acetylcysteine and Metamizole may falsely deressthis assay. Reference Range HDL <40 mg/dL Low HDL Cholesterol HDL >or= 60 mg/dL High HDL Cholesterol TRIG 179 mg/dL (Normal) Comments: The drugs N-Acetylcysteine and Metamizole may falsely deressthis assay.Serum Triglycerides Reference Interval Normal <150 mg/dL Borderline high 150 - 199 mg/dL High 200 - 499 mg/dL Very High > or = 500 mg/dL CHOL 234 mg/dL (Abnormal) Comments: <200 mg/dL Desirable 200-240 mg/dL Borderline >240 mg/dL High Risk 2-Okw-851806:05 Thyroid Stim Hormone (TSH) Comments: Is Patient Taking Vitamins or Folic Acid Supplements? [facility] [address] [place], [address] TSH 1.94 {uIU/mL} (Normal) Range: 0.358-3.74 5-Qyt-924782:05 Vitamin B12 668 pg/mL (Normal) Comments: [facility] [address] [place], [address] Range: 211-911 2-Rey-148543:05 Vitamin D,25 Hydroxy Comments: [facility] [address] [place], [address] Vitamin D 25-OH 38.6 ng/mL (Normal) Comments: Vitamin D 25(OH) Status Range Deficiency <20 ng/mL (50nmol/L) Insuffciency 20 - 30 ng/mL (50 - 75 nmol/L) Sufficiency 30 - 100 ng/mL (75 - 250 nmol/L) Toxicity >100 ng/mL (>250 nmol/L) :38 HgA1C , Office (57574) HgA1C , Office 5.3 % (Normal) Range: 4.6 - 7.1 :38 Blood Glucose , Office (56164) Blood Glucose , Office 89 (Normal) :48 MICROALBUMIN: CREATININE RATIO Comments: PATIENT NOT FASTINGPERFORMED BY: [employer]iles Ihbvvn1641 [facility] [id number] (86302) AND (79719) Microalb/Creat Ratio 3.2 {mg/g_creat} (Normal) Range: 0.0-30.0 Microalbumin, Urine 3.8 ug/mL (Normal) Creatinine, Urine 119.1 mg/dL (Normal) :48 CBC W/AUTO DIFF WBC Comments: PATIENT NOT FASTINGPERFORMED BY: [facility] Ufjapl3920 [facility] HospitalBeijing Lingdong Kuaip[employer] Information TechnologyCone Health Al[facility] Regional [id number] Information: [id number] PT HAD COFF EE WITH CREAM (50481) Immature Grans (Abs) 0.0 {x10E3/uL} (Normal) Range: 0.0-0.1 Immature Granulocytes 0 % (Normal) Baso (Absolute) 0.0 {x10E3/uL} (Normal) Range: 0.0-0.2 Eos (Absolute) 0.1 {x10E3/uL} (Normal) Range: 0.0-0.4 Monocytes(Absolute) 0.5 {x10E3/uL} (Normal) Range: 0.1-0.9 Lymphs (Absolute) 1.9 {x10E3/uL} (Normal) Range: 0.7-3.1 Neutrophils (Absolute) 2.6 {x10E3/uL} (Normal) Range: 1.4-7.0 Basos 0 % (Normal) Eos 3 % (Normal) Monocytes 10 % (Normal) Lymphs 36 % (Normal) Neutrophils 51 % (Normal) Platelets 271 {x10E3/uL} (Normal) Range: 150-379 RDW 13.8 % (Normal) Range: 12.3-15.4 MCHC 33.1 g/dL (Normal) Range: 31.5-35.7 MCH 29.4 pg (Normal) Range: 26.6-33.0 MCV 89 fL (Normal) Range: 79-97 Hematocrit 37.2 % (Normal) Range: 34.0-46.6 Hemoglobin 12.3 g/dL (Normal) Range: 11.1-15.9 RBC 4.19 {x10E6/uL} (Normal) Range: 3.77-5.28 WBC 5.1 {x10E3/uL} (Normal) Range: 3.4-10.8 :48 LIPID PANEL (68714) Comments: PATIENT NOT FASTINGPERFORMED BY: QuintilesHampton Behavioral Health CenterKkfzzq2167 [facility] [id number] LDL/HDL Ratio 1.7 {ratio_units} (Normal) Range: 0.0-3.2 Comments: LDL/HDL Ratio Men Women 1/2 Avg.Risk 1.0 1.5 Av g.Risk 3.6 3.2 2X Avg.Risk 6.2 5.0 3X Avg.Risk 8.0 6.1 LDL Cholesterol Calc 134 mg/dL (Abnormal) Range: 0-99 VLDL Cholesterol Sumeet 22 mg/dL (Normal) Range: 5-40 HDL Cholesterol 80 mg/dL (Normal) Comments: According to ATP-III Guidelines, HDL-C >59 mg/dL is considered anegative risk factor for CHD. Triglycerides 112 mg/dL (Normal) Range: 0-149 Cholesterol, Total 236 mg/dL (Abnormal) Range: 100-199 :48 METABOLIC PANEL, COMPREHENSIVE Comments: PATIENT NOT FASTINGPERFORMED BY: QuintilesHampton Behavioral Health CenterJgujyw0325 [facility] [id number] (33079) ALT (SGPT) 13 [iU]/L (Normal) Range: 0-32 AST (SGOT) 16 [iU]/L (Normal) Range: 0-40 Alkaline Phosphatase, S 70 [iU]/L (Normal) Range: 39-117 Bilirubin, Total 0.2 mg/dL (Normal) Range: 0.0-1.2 A/G Ratio 2.3 (Normal) Range: 1.1-2.5 Globulin, Total 1.9 g/dL (Normal) Range: 1.5-4.5 Albumin, Serum 4.3 g/dL (Normal) Range: 3.5-4.8 Protein, Total, Serum 6.2 g/dL (Normal) Range: 6.0-8.5 Calcium, Serum 8.9 mg/dL (Normal) Range: 8.7-10.3 Carbon Dioxide, Total 24 mmol/L (Normal) Range: 18-29 Chloride, Serum 101 mmol/L (Normal) Range: 97-108 Potassium, Serum 4.3 mmol/L (Normal) Range: 3.5-5.2 Sodium, Serum 141 mmol/L (Normal) Range: 134-144 BUN/Creatinine Ratio 22 (Normal) Range: 11-26 eGFR If Africn Am 103 mL/min/1.73 (Normal) eGFR If NonAfricn Am 89 mL/min/1.73 (Normal) Creatinine, Serum 0.67 mg/dL (Normal) Range: 0.57-1.00 BUN 15 mg/dL (Normal) Range: 8-27 Glucose, Serum 86 mg/dL (Normal) Range: 65-99 :48 [id number] (01205) Comments: PATIENT NOT FASTINGPERFORMED BY: [employer]70 [facility] Technology GroupCone Health [facility] [id number] AFP, Serum, Tumor Marker 9.5 ng/mL (Abnormal) Range: 0.0-8.3 Comments: [employer] ECLIA methodology :11 HgA1C , Office (25819) HgA1C , Office 5.4 % (Normal) Range: 4.6 - 7.1 :11 HgA1C , Office (56480) HgA1C , Office 5.5 % (Normal) Range: 4.6 - 7.1 :37 LIPID PANEL (96437) Comments: PATIENT WAS FASTINGPERFORMED BY: [employer]70 [facility]At[facility] [id number] LDL/HDL Ratio 1.8 {ratio_units} (Normal) Range: 0.0-3.2 Comments: LDL/HDL Ratio Men Women 1/2 Avg.Risk 1.0 1.5 Av g.Risk 3.6 3.2 2X Avg.Risk 6.2 5.0 3X Avg.Risk 8.0 6.1 LDL Cholesterol Calc 149 mg/dL (Abnormal) Range: 0-99 VLDL Cholesterol Sumeet 24 mg/dL (Normal) Range: 5-40 HDL Cholesterol 82 mg/dL (Normal) Comments: According to ATP-III Guidelines, HDL-C >59 mg/dL is considered anegative risk factor for CHD. Triglycerides 118 mg/dL (Normal) Range: 0-149 Cholesterol, Total 255 mg/dL (Abnormal) Range: 100-199 73-Kzn-240521:37 METABOLIC PANEL, Comments: PATIENT WAS FASTINGPERFORMED BY: LabCoHampton Behavioral Health CenterJzvlgm7780 [facility] [id number] Information: [id number] COMPREHENSIVE (44871) ALT (SGPT) 15 [iU]/L (Normal) Range: 0-32 AST (SGOT) 19 [iU]/L (Normal) Range: 0-40 Alkaline Phosphatase, S 69 [iU]/L (Normal) Range: 39-117 Bilirubin, Total 0.4 mg/dL (Normal) Range: 0.0-1.2 A/G Ratio 2.0 (Normal) Range: 1.1-2.5 Globulin, Total 2.1 g/dL (Normal) Range: 1.5-4.5 Albumin, Serum 4.3 g/dL (Normal) Range: 3.5-4.8 Protein, Total, Serum 6.4 g/dL (Normal) Range: 6.0-8.5 Calcium, Serum 9.0 mg/dL (Normal) Range: 8.7-10.3 Carbon Dioxide, Total 24 mmol/L (Normal) Range: 18-29 Chloride, Serum 103 mmol/L (Normal) Range: 97-108 Potassium, Serum 4.4 mmol/L (Normal) Range: 3.5-5.2 Sodium, Serum 143 mmol/L (Normal) Range: 134-144 BUN/Creatinine Ratio 30 (Abnormal) Range: 11-26 eGFR If Africn Am 92 mL/min/1.73 (Normal) eGFR If NonAfricn Am 80 mL/min/1.73 (Normal) Creatinine, Serum 0.76 mg/dL (Normal) Range: 0.57-1.00 BUN 23 mg/dL (Normal) Range: 8-27 Glucose, Serum 91 mg/dL (Normal) Range: 65-99 52-Uim-948118:37 [id number] (53177) Comments: PATIENT WAS FASTINGPERFORMED BY: [facility]6370 [facility] [id number] AFP, Serum, Tumor Marker 10.1 ng/mL (Abnormal) Range: 0.0-8.3 Comments: [employer] ECLIA methodology 51-Phu-666515:54 [id number] (59919) Comments: 2 months; PATIENT NOT FASTINGPERFORMED BY: [facility]6370 [facility] [id number] Information: [id number] AFP, Serum, Tumor Marker 10.3 ng/mL (Abnormal) Range: 0.0-8.3 Comments: [employer] ECLIA methodology 8-Vsq-027936:04 HgA1C , Office (46600) HgA1C , Office 5.9 % (Normal) Range: 4.6 - 7.1 :00 Serum Creatinine AND GFR Comments: Test performed at:[facility] [address] [place] [address] EST GFR - AA 81 mL/min (Normal) EST GFR 67 mL/min (Normal) CREAT,SERUM 0.89 mg/dL (Normal) Range: 0.55-1.20 Comments: Please note revised CREATININE reference range iaeordkam80/22/2015. 60-Tej-955785:19 CBC with auto diff Comments: PATIENT WAS FASTINGPERFORMED BY: [facility]6370 [facility] [id number] Information: [id number] (27180) Immature Grans (Abs) 0.0 {x10E3/uL} (Normal) Range: 0.0-0.1 Immature Granulocytes 0 % (Normal) Baso (Absolute) 0.0 {x10E3/uL} (Normal) Range: 0.0-0.2 Eos (Absolute) 0.2 {x10E3/uL} (Normal) Range: 0.0-0.4 Monocytes(Absolute) 0.5 {x10E3/uL} (Normal) Range: 0.1-0.9 Lymphs (Absolute) 2.0 {x10E3/uL} (Normal) Range: 0.7-3.1 Neutrophils (Absolute) 2.9 {x10E3/uL} (Normal) Range: 1.4-7.0 Basos 0 % (Normal) Eos 3 % (Normal) Monocytes 9 % (Normal) Lymphs 35 % (Normal) Neutrophils 53 % (Normal) Platelets 272 {x10E3/uL} (Normal) Range: 150-379 RDW 14.1 % (Normal) Range: 12.3-15.4 MCHC 32.3 g/dL (Normal) Range: 31.5-35.7 MCH 28.3 pg (Normal) Range: 26.6-33.0 MCV 88 fL (Normal) Range: 79-97 Hematocrit 38.1 % (Normal) Range: 34.0-46.6 Hemoglobin 12.3 g/dL (Normal) Range: 11.1-15.9 RBC 4.35 {x10E6/uL} (Normal) Range: 3.77-5.28 WBC 5.5 {x10E3/uL} (Normal) Range: 3.4-10.8 11-Rnc-202364:19 MICROALBUMIN: CREATININE RATIO Comments: PATIENT WAS FASTINGPERFORMED BY: TrovaGeneHampton Behavioral Health CenterMaaubl6511 [facility] [id number] (50493) AND (72826) Microalb/Creat Ratio <3.5 {mg/g_creat} (Normal) Range: 0.0-30.0 Microalbumin, Urine <3.0 ug/mL (Normal) Range: 0.0-17.0 Creatinine, Urine 85.8 mg/dL (Normal) Range: 15.0-278.0 99-Eww-743319:19 METABOLIC PANEL, COMPREHENSIVE Comments: PATIENT WAS FASTINGPERFORMED BY: TrovaGeneHampton Behavioral Health CenterUespyh8979 [facility] [id number] (67037) ALT (SGPT) 11 [iU]/L (Normal) Range: 0-32 AST (SGOT) 15 [iU]/L (Normal) Range: 0-40 Alkaline Phosphatase, S 70 [iU]/L (Normal) Range: 39-117 Bilirubin, Total 0.2 mg/dL (Normal) Range: 0.0-1.2 A/G Ratio 2.4 (Normal) Range: 1.1-2.5 Globulin, Total 1.8 g/dL (Normal) Range: 1.5-4.5 Albumin, Serum 4.3 g/dL (Normal) Range: 3.6-4.8 Protein, Total, Serum 6.1 g/dL (Normal) Range: 6.0-8.5 Calcium, Serum 8.9 mg/dL (Normal) Range: 8.7-10.3 Carbon Dioxide, Total 24 mmol/L (Normal) Range: 18-29 Chloride, Serum 101 mmol/L (Normal) Range: 97-108 Potassium, Serum 4.5 mmol/L (Normal) Range: 3.5-5.2 Sodium, Serum 140 mmol/L (Normal) Range: 134-144 BUN/Creatinine Ratio 20 (Normal) Range: 11-26 eGFR If Africn Am 103 mL/min/1.73 (Normal) eGFR If NonAfricn Am 89 mL/min/1.73 (Normal) Creatinine, Serum 0.69 mg/dL (Normal) Range: 0.57-1.00 BUN 14 mg/dL (Normal) Range: 8-27 Glucose, Serum 94 mg/dL (Normal) Range: 65-99 30-Wcw-350862:19 LIPID PANEL (45348) Comments: PATIENT WAS FASTINGPERFORMED BY: LabCoHampton Behavioral Health CenterOvgalz0933 [facility] [id number] LDL/HDL Ratio 1.8 {ratio_units} (Normal) Range: 0.0-3.2 Comments: LDL/HDL Ratio Men Women 1/2 Avg.Risk 1.0 1.5 Av g.Risk 3.6 3.2 2X Avg.Risk 6.2 5.0 3X Avg.Risk 8.0 6.1 LDL Cholesterol Calc 126 mg/dL (Abnormal) Range: 0-99 VLDL Cholesterol Sumeet 35 mg/dL (Normal) Range: 5-40 HDL Cholesterol 69 mg/dL (Normal) Comments: According to ATP-III Guidelines, HDL-C >59 mg/dL is considered anegative risk factor for CHD. Triglycerides 175 mg/dL (Abnormal) Range: 0-149 Cholesterol, Total 230 mg/dL (Abnormal) Range: 100-199 49-Zof-900546:19 [id number]-[id number] (39670) Comments: PATIENT WAS FASTINGPERFORMED BY: QuintilesHampton Behavioral Health CenterSumzba5840 [facility] [id number] AFP, Serum, Tumor Marker 9.4 ng/mL (Abnormal) Range: 0.0-8.3 Comments: Izaiah ECLIA methodology :33 HgA1C , Office (87166) HgA1C , Office 5.9 % (Normal) Range: 4.6 - 7.1 AFP, Serum, Tumor 8.6 ng/mL (Abnormal) Comments: PATIENT WAS FASTINGPERFORMED BY: QuintilesHampton Behavioral Health CenterDbcopd5388 [facility] [id number] :02 Marker Range: 0.0-8.3 Comments: Izaiah ECLIA methodology :02 CBC With Differential/Platelet Comments: PATIENT WAS FASTINGPERFORMED BY: QuintilesHampton Behavioral Health CenterFsyazx0934 [facility] [id number] Information: [id number] Immature Grans (Abs) 0.0 {x10E3/uL} (Normal) Range: 0.0-0.1 Immature Granulocytes 0 % (Normal) Baso (Absolute) 0.0 {x10E3/uL} (Normal) Range: 0.0-0.2 Eos (Absolute) 0.2 {x10E3/uL} (Normal) Range: 0.0-0.4 Monocytes(Absolute) 0.5 {x10E3/uL} (Normal) Range: 0.1-0.9 Lymphs (Absolute) 1.9 {x10E3/uL} (Normal) Range: 0.7-3.1 Neutrophils (Absolute) 2.5 {x10E3/uL} (Normal) Range: 1.4-7.0 Basos 0 % (Normal) Eos 4 % (Normal) Monocytes 10 % (Normal) Lymphs 38 % (Normal) Neutrophils 48 % (Normal) Platelets 245 {x10E3/uL} (Normal) Range: 150-379 RDW 14.6 % (Normal) Range: 12.3-15.4 MCHC 33.0 g/dL (Normal) Range: 31.5-35.7 MCH 28.6 pg (Normal) Range: 26.6-33.0 MCV 87 fL (Normal) Range: 79-97 Hematocrit 36.7 % (Normal) Range: 34.0-46.6 Hemoglobin 12.1 g/dL (Normal) Range: 11.1-15.9 RBC 4.23 {x10E6/uL} (Normal) Range: 3.77-5.28 WBC 5.1 {x10E3/uL} (Normal) Range: 3.4-10.8 :02 Comp. Metabolic Panel (14) Comments: PATIENT WAS FASTINGPERFORMED BY: [facility] Pxfcbi0757 [facility] [id number] ALT (SGPT) 16 [iU]/L (Normal) Range: 0-32 AST (SGOT) 22 [iU]/L (Normal) Range: 0-40 Alkaline Phosphatase, S 77 [iU]/L (Normal) Range: 39-117 Bilirubin, Total 0.4 mg/dL (Normal) Range: 0.0-1.2 A/G Ratio 2.3 (Normal) Range: 1.1-2.5 Globulin, Total 2.0 g/dL (Normal) Range: 1.5-4.5 Albumin, Serum 4.5 g/dL (Normal) Range: 3.6-4.8 Protein, Total, Serum 6.5 g/dL (Normal) Range: 6.0-8.5 Calcium, Serum 9.5 mg/dL (Normal) Range: 8.7-10.3 Carbon Dioxide, Total 26 mmol/L (Normal) Range: 18-29 Chloride, Serum 100 mmol/L (Normal) Range: 97-108 Potassium, Serum 4.6 mmol/L (Normal) Range: 3.5-5.2 Sodium, Serum 140 mmol/L (Normal) Range: 134-144 BUN/Creatinine Ratio 28 (Abnormal) Range: 11-26 eGFR If Africn Am 94 mL/min/1.73 (Normal) eGFR If NonAfricn Am 82 mL/min/1.73 (Normal) Creatinine, Serum 0.75 mg/dL (Normal) Range: 0.57-1.00 BUN 21 mg/dL (Normal) Range: 8-27 Glucose, Serum 84 mg/dL (Normal) Range: 65-99 :02 Lipid Panel With LDL/HDL Comments: PATIENT WAS FASTINGPERFORMED BY: QuintilesHampton Behavioral Health CenterMtqgbe0433 [facility] [id number] Ratio LDL/HDL Ratio 1.7 {ratio_units} Range: 0.0-3.2 (Normal) Comments: LDL/HDL Ratio Men Women 1/2 Avg.Risk 1.0 1.5 Av g.Risk 3.6 3.2 2X Avg.Risk 6.2 5.0 3X Avg.Risk 8.0 6.1 LDL Cholesterol Calc 127 mg/dL (Abnormal) Range: 0-99 VLDL Cholesterol Sumeet 32 mg/dL (Normal) Range: 5-40 HDL Cholesterol 73 mg/dL (Normal) Comments: According to ATP-III Guidelines, HDL-C >59 mg/dL is considered anegative risk factor for CHD. Triglycerides 160 mg/dL (Abnormal) Range: 0-149 Cholesterol, Total 232 mg/dL (Abnormal) Range: 100-199 05-Apr-2015 TSH 2.370 {uIU/mL} (Normal) Comments: PATIENT WAS FASTINGPERFORMED BY: QuintilesHampton Behavioral Health CenterSmmjbi5089 [facility] [id number] 13:02 Range: 0.450-4.500 63-Rbl-53310:47 HgA1C , Office (40865) HgA1C , Office 5.6 % (Normal) Range: 4.6 - 7.1 6-Kub-338482:12 FVDRA-[id number] (92682) Comments: PATIENT NOT FASTINGPERFORMED BY: QuintilesHampton Behavioral Health CenterJojiqg3326 [facility] [id number] AFP, Serum, Tumor Marker 9.2 ng/mL (Abnormal) Range: 0.0-8.3 Comments: [employer] ECLIA methodology 1-Rxh-981079:12 CBC W/AUTO DIFF WBC Comments: PATIENT NOT FASTINGPERFORMED BY: [facility]6370 [facility] [id number] Information: [id number] (90936) Immature Grans (Abs) 0.0 {x10E3/uL} (Normal) Range: 0.0-0.1 Immature Granulocytes 0 % (Normal) Baso (Absolute) 0.0 {x10E3/uL} (Normal) Range: 0.0-0.2 Eos (Absolute) 0.2 {x10E3/uL} (Normal) Range: 0.0-0.4 Monocytes(Absolute) 0.8 {x10E3/uL} (Normal) Range: 0.1-0.9 Lymphs (Absolute) 3.1 {x10E3/uL} (Normal) Range: 0.7-3.1 Neutrophils (Absolute) 3.2 {x10E3/uL} (Normal) Range: 1.4-7.0 Basos 0 % (Normal) Eos 2 % (Normal) Monocytes 10 % (Normal) Lymphs 42 % (Normal) Neutrophils 46 % (Normal) Platelets 286 {x10E3/uL} (Normal) Range: 150-379 RDW 14.1 % (Normal) Range: 12.3-15.4 MCHC 32.1 g/dL (Normal) Range: 31.5-35.7 MCH 28.4 pg (Normal) Range: 26.6-33.0 MCV 89 fL (Normal) Range: 79-97 Hematocrit 36.5 % (Normal) Range: 34.0-46.6 Hemoglobin 11.7 g/dL (Normal) Range: 11.1-15.9 RBC 4.12 {x10E6/uL} (Normal) Range: 3.77-5.28 WBC 7.3 {x10E3/uL} (Normal) Range: 3.4-10.8 [id number]-Pwh-[id number]:12 METABOLIC PANEL, COMPREHENSIVE Comments: PATIENT NOT FASTINGPERFORMED BY: [facility] [id number] [facility] [id number] ([id number]) ALT (SGPT) 15 [iU]/L (Normal) Range: 0-32 AST (SGOT) 13 [iU]/L (Normal) Range: 0-40 Alkaline Phosphatase, S 59 [iU]/L (Normal) Range: 39-117 Bilirubin, Total 0.4 mg/dL (Normal) Range: 0.0-1.2 A/G Ratio 2.3 (Normal) Range: 1.1-2.5 Globulin, Total 1.8 g/dL (Normal) Range: 1.5-4.5 Albumin, Serum 4.1 g/dL (Normal) Range: 3.6-4.8 Protein, Total, Serum 5.9 g/dL (Abnormal) Range: 6.0-8.5 Calcium, Serum 8.7 mg/dL (Normal) Range: 8.6-10.2 Comments: Effective November 26, 2014 the reference interval for Calcium, Serum will be changing to: Age Male Female 0 - 10 days 8.6 - 10.4 8.6 - 10.4 11 days - 1 year 9.2 - 11.0 9.2 - 11.0 2 - 11 years 9.1 - 10.5 9.1 - 10.5 12 - 17 years 8.9 - 10.4 8.9 - 10.4 18 - 59 years 8.7 - 10.2 8.7 - 10.2 >59 years 8.6 - 10.2 8.7 - 10.3 Carbon Dioxide, Total 26 mmol/L (Normal) Range: 18-29 Chloride, Serum 101 mmol/L (Normal) Range: 97-108 Potassium, Serum 4.1 mmol/L (Normal) Range: 3.5-5.2 Sodium, Serum 143 mmol/L (Normal) Range: 134-144 BUN/Creatinine Ratio 19 (Normal) Range: 11-26 eGFR If Africn Am 81 mL/min/1.73 (Normal) eGFR If NonAfricn Am 70 mL/min/1.73 (Normal) Creatinine, Serum 0.85 mg/dL (Normal) Range: 0.57-1.00 BUN 16 mg/dL (Normal) Range: 8-27 Glucose, Serum 84 mg/dL (Normal) Range: 65-99 9-Hso-811525:12 LIPID PANEL ([id number]) Comments: PATIENT NOT FASTINGPERFORMED BY: [facility] [id number] [facility] [id number] LDL/HDL Ratio 1.3 {ratio_units} (Normal) Range: 0.0-3.2 Comments: LDL/HDL Ratio Men Women 1/2 Avg.Risk 1.0 1.5 Av g.Risk 3.6 3.2 2X Avg.Risk 6.2 5.0 3X Avg.Risk 8.0 6.1 LDL Cholesterol Calc 92 mg/dL (Normal) Range: 0-99 VLDL Cholesterol Sumeet 36 mg/dL (Normal) Range: 5-40 HDL Cholesterol 71 mg/dL (Normal) Comments: According to ATP-III Guidelines, HDL-C >59 mg/dL is considered anegative risk factor for CHD. Triglycerides 179 mg/dL (Abnormal) Range: 0-149 Cholesterol, Total 199 mg/dL (Normal) Range: 100-199 14-Hmi-[id number]:05 HgA1C , Office (07735) HgA1C , Office 5.8 % (Normal) Range: 4.6 - 7.1 [id number]-425694:21 [id number] ([id number]) Comments: get us of liver; PATIENT WAS FASTINGPERFORMED BY: [id number] [facility] [id number] AFP, Serum, Tumor Marker 8.6 ng/mL (Abnormal) Range: 0.0-8.3 Comments: Izaiah ECLIA methodology [id number]-[id number]:21 MICROALBUMIN: CREATININE RATIO Comments: PATIENT WAS FASTINGPERFORMED BY: [employer]ai [employer] [facility] [id number] ([id number]) AND ([id number]) Microalb/Creat Ratio 7.2 {mg/g_creat} (Normal) Range: 0.0-30.0 Microalbumin, Urine 12.4 ug/mL (Normal) Range: 0.0-17.0 Creatinine, Urine 173.3 mg/dL (Normal) Range: 15.0-278.0 [id number]-Psc-[id number]:21 LIPID PANEL ([id number]) Comments: PATIENT WAS FASTINGPERFORMED BY: TaCerto.comlin6370 [facility] [id number] LDL/HDL Ratio 1.5 {ratio_units} (Normal) Range: 0.0-3.2 Comments: LDL/HDL Ratio Men Women 1/2 Avg.Risk 1.0 1.5 Av g.Risk 3.6 3.2 2X Avg.Risk 6.2 5.0 3X Avg.Risk 8.0 6.1 LDL Cholesterol Calc 120 mg/dL (Abnormal) Range: 0-99 VLDL Cholesterol Sumeet 19 mg/dL (Normal) Range: 5-40 HDL Cholesterol 78 mg/dL (Normal) Comments: According to ATP-III Guidelines, HDL-C >59 mg/dL is considered anegative risk factor for CHD. Triglycerides 95 mg/dL (Normal) Range: 0-149 Cholesterol, Total 217 mg/dL (Abnormal) Range: 100-199 9-Kuq-766252:21 CBC WITH MANUAL DIFF Comments: PATIENT WAS FASTINGPERFORMED BY: BERE QuintilesHampton Behavioral Health CenterLotvcm8078 [facility] [id number] Information: [id number]; non-emergent till apt this week (81157) Immature Grans (Abs) 0.0 {x10E3/uL} (Normal) Range: 0.0-0.1 Immature Granulocytes 0 % (Normal) Baso (Absolute) 0.0 {x10E3/uL} (Normal) Range: 0.0-0.2 Eos (Absolute) 0.0 {x10E3/uL} (Normal) Range: 0.0-0.4 Monocytes(Absolute) 1.2 {x10E3/uL} (Abnormal) Range: 0.1-0.9 Lymphs (Absolute) 1.9 {x10E3/uL} (Normal) Range: 0.7-3.1 Neutrophils (Absolute) 10.6 {x10E3/uL} (Abnormal) Range: 1.4-7.0 Basos 0 % (Normal) Eos 0 % (Normal) Monocytes 9 % (Normal) Lymphs 14 % (Normal) Neutrophils 77 % (Normal) Platelets 257 {x10E3/uL} (Normal) Range: 150-379 RDW 14.7 % (Normal) Range: 12.3-15.4 MCHC 33.2 g/dL (Normal) Range: 31.5-35.7 MCH 29.2 pg (Normal) Range: 26.6-33.0 MCV 88 fL (Normal) Range: 79-97 Hematocrit 37.0 % (Normal) Range: 34.0-46.6 Hemoglobin 12.3 g/dL (Normal) Range: 11.1-15.9 RBC 4.21 {x10E6/uL} (Normal) Range: 3.77-5.28 WBC 13.8 {x10E3/uL} (Abnormal) Range: 3.4-10.8 2-Hff-350016:21 METABOLIC PANEL, COMPREHENSIVE Comments: PATIENT WAS FASTINGPERFORMED BY: QuintilesHampton Behavioral Health CenterZjtxpd8665 [facility] [id number] (00382) ALT (SGPT) 13 [iU]/L (Normal) Range: 0-32 AST (SGOT) 15 [iU]/L (Normal) Range: 0-40 Alkaline Phosphatase, S 73 [iU]/L (Normal) Range: 39-117 Bilirubin, Total 0.2 mg/dL (Normal) Range: 0.0-1.2 A/G Ratio 2.5 (Normal) Range: 1.1-2.5 Globulin, Total 1.8 g/dL (Normal) Range: 1.5-4.5 Albumin, Serum 4.5 g/dL (Normal) Range: 3.6-4.8 Protein, Total, Serum 6.3 g/dL (Normal) Range: 6.0-8.5 Calcium, Serum 9.4 mg/dL (Normal) Range: 8.6-10.2 Carbon Dioxide, Total 24 mmol/L (Normal) Range: 18-29 Chloride, Serum 102 mmol/L (Normal) Range: 97-108 Potassium, Serum 4.1 mmol/L (Normal) Range: 3.5-5.2 Sodium, Serum 142 mmol/L (Normal) Range: 134-144 BUN/Creatinine Ratio 24 (Normal) Range: 11-26 eGFR If Africn Am 88 mL/min/1.73 (Normal) eGFR If NonAfricn Am 76 mL/min/1.73 (Normal) Creatinine, Serum 0.80 mg/dL (Normal) Range: 0.57-1.00 BUN 19 mg/dL (Normal) Range: 8-27 Glucose, Serum 84 mg/dL (Normal) Range: 65-99 :32 HgA1C , Office (31324) HgA1C , Office 5.8 % (Normal) Range: 4.6 - 7.1 :18 Vitamin D Hydroxy (25783) Comments: PATIENT WAS FASTINGPERFORMED BY: [facility]6370 [facility] [id number] Vitamin D, 25-Hydroxy 54.3 ng/mL (Normal) Range: 30.0-100.0 Comments: Vitamin D deficiency has been defined by the [place] and an Endocrine Society practice guideline as alevel of serum 25-OH vitamin D less than 20 ng/mL (1,2).The Endocrine Society went on to further define vitamin Dinsufficiency as a level between 21 and 29 ng/mL (2).1. IOM ([place] [employer]). 2010. Dietary reference intakes for calcium and D. [place]: The National Academies Press.2. Hannah MF, Hilda SONG, Cindy FREED, et al. Evaluation, treatment, and prevention of vitamin D deficiency: an Endocrine Society clinical practice guideline. JCEM. 2010; 96(7):1911-30. 2-Yjz-697331:18 IRON (58551) Comments: PATIENT WAS FASTINGPERFORMED BY: [employer] [facility] Ywkpjt4839 [facility] [id number] Iron, Serum 86 ug/dL (Normal) Range: 35-155 1-Hdj-578105:18 CBC WITH MANUAL DIFF Comments: PATIENT WAS FASTINGPERFORMED BY: [facility] Iksumx5587 [facility] [id number] Information: [id number] (60870) Immature Grans (Abs) 0.0 {x10E3/uL} (Normal) Range: 0.0-0.1 Immature Granulocytes 0 % (Normal) Range: 0-2 Baso (Absolute) 0.0 {x10E3/uL} (Normal) Range: 0.0-0.2 Eos (Absolute) 0.3 {x10E3/uL} (Normal) Range: 0.0-0.4 Monocytes(Absolute) 0.7 {x10E3/uL} (Normal) Range: 0.1-0.9 Lymphs (Absolute) 2.2 {x10E3/uL} (Normal) Range: 0.7-3.1 Neutrophils (Absolute) 2.9 {x10E3/uL} (Normal) Range: 1.4-7.0 Basos 1 % (Normal) Range: 0-3 Eos 4 % (Normal) Range: 0-5 Monocytes 12 % (Normal) Range: 4-12 Lymphs 36 % (Normal) Range: 14-46 Neutrophils 47 % (Normal) Range: 40-74 Platelets 284 {x10E3/uL} (Normal) Range: 150-379 RDW 16.4 % (Abnormal) Range: 12.3-15.4 MCHC 32.4 g/dL (Normal) Range: 31.5-35.7 MCH 27.4 pg (Normal) Range: 26.6-33.0 MCV 85 fL (Normal) Range: 79-97 Hematocrit 40.1 % (Normal) Range: 34.0-46.6 Hemoglobin 13.0 g/dL (Normal) Range: 11.1-15.9 RBC 4.74 {x10E6/uL} (Normal) Range: 3.77-5.28 WBC 6.1 {x10E3/uL} (Normal) Range: 3.4-10.8 1-Ycb-399631:18 VAQFB-UGGMETMKSUQ-FVPVO (59042) Comments: PATIENT WAS FASTINGPERFORMED BY: [address] [id number] AFP, Serum, Tumor Marker 9.6 ng/mL (Abnormal) Range: 0.0-8.3 Comments: Izaiah ECLIA methodology :18 PTT (Activated Partial Comments: PATIENT WAS FASTINGPERFORMED BY: [facility]6370 [facility] [id number] Thromboplastin Time) (12329) aPTT 27 {sec} (Normal) Range: 24-33 Comments: This test has not been validated for monitoring unfractionated heparintherapy. aPTT-based therapeutic ranges for unfractionated heparintherapy have not been established. For general guidelines onHeparin monitoring, refer to the [facility] Directory of Services. :18 PT (Prothrobim Time) (72363) Comments: PATIENT WAS FASTINGPERFORMED BY: [facility]6370 [facility] [id number] Prothrombin Time 10.3 {sec} (Normal) Range: 9.1-12.0 INR 1.0 (Normal) Range: 0.8-1.2 Comments: Reference interval is for non-anticoagulated patients. . Suggested INR therapeutic range for Vitamin K anta gonist therapy: Standard Dose (moderate intensity therapeutic range): 2.0 - 3.0 Higher intensity therapeutic range 2.5 - 3.5 :18 METABOLIC PANEL, COMPREHENSIVE Comments: PATIENT WAS FASTINGPERFORMED BY: [place] 1968370 [facility] [id number] (61539) ALT (SGPT) 21 [iU]/L (Normal) Range: 0-32 AST (SGOT) 22 [iU]/L (Normal) Range: 0-40 Alkaline Phosphatase, S 81 [iU]/L (Normal) Range: 39-117 Bilirubin, Total 0.4 mg/dL (Normal) Range: 0.0-1.2 A/G Ratio 2.9 (Abnormal) Range: 1.1-2.5 Globulin, Total 1.6 g/dL (Normal) Range: 1.5-4.5 Albumin, Serum 4.6 g/dL (Normal) Range: 3.6-4.8 Protein, Total, Serum 6.2 g/dL (Normal) Range: 6.0-8.5 Calcium, Serum 9.6 mg/dL (Normal) Range: 8.6-10.2 Carbon Dioxide, Total 25 mmol/L (Normal) Range: 18-29 Chloride, Serum 101 mmol/L (Normal) Range: 97-108 Potassium, Serum 4.5 mmol/L (Normal) Range: 3.5-5.2 Sodium, Serum 140 mmol/L (Normal) Range: 134-144 BUN/Creatinine Ratio 16 (Normal) Range: 11-26 eGFR If Africn Am 86 mL/min/1.73 (Normal) eGFR If NonAfricn Am 75 mL/min/1.73 (Normal) Creatinine, Serum 0.81 mg/dL (Normal) Range: 0.57-1.00 BUN 13 mg/dL (Normal) Range: 8-27 Glucose, Serum 97 mg/dL (Normal) Range: 65-99 0-Qjk-651180:18 LIPID PANEL (44521) Comments: PATIENT WAS FASTINGPERFORMED BY: BERE [facility] Yirjzd2784 [facility] [id number]; will review at 05/25 appt LDL/HDL Ratio 1.6 {ratio_units} (Normal) Range: 0.0-3.2 LDL Cholesterol Calc 95 mg/dL (Normal) Range: 0-99 VLDL Cholesterol Sumeet 34 mg/dL (Normal) Range: 5-40 HDL Cholesterol 58 mg/dL (Normal) Comments: According to ATP-III Guidelines, HDL-C >59 mg/dL is considered anegative risk factor for CHD. Triglycerides 168 mg/dL (Abnormal) Range: 0-149 Cholesterol, Total 187 mg/dL (Normal) Range: 100-199 :30 HgA1C , Office (59429) HgA1C , Office 5.7 % (Normal) Range: 4.6 - 7.1 2-Rsd-098517:37 LIPID PANEL (08910) Comments: PATIENT WAS FASTINGPERFORMED BY: Sai [employer] [facility] [id number] Information: [id number] LDL/HDL Ratio 1.2 {ratio_units} (Normal) Range: 0.0-3.2 LDL Cholesterol Calc 86 mg/dL (Normal) Range: 0-99 VLDL Cholesterol Sumeet 20 mg/dL (Normal) Range: 5-40 HDL Cholesterol 73 mg/dL (Normal) Comments: According to ATP-III Guidelines, HDL-C >59 mg/dL is considered anegative risk factor for CHD. Triglycerides 99 mg/dL (Normal) Range: 0-149 Cholesterol, Total 179 mg/dL (Normal) Range: 100-199 :47 Vitamin D Hydroxy (87989) Comments: PATIENT NOT FASTINGPERFORMED BY: [employer]6370 [facility] [id number] Vitamin D, 25-Hydroxy 34.7 ng/mL (Normal) Range: 30.0-100.0 Comments: Vitamin D deficiency has been defined by the [place] [facility] and an Endocrine Society practice guideline as alevel of serum 25-OH vitamin D less than 20 ng/mL (1,2).The Endocrine Society went on to further define vitamin Dinsufficiency as a level between 21 and 29 ng/mL (2).1. IOM ([place]). 2010. Dietary reference intakes for calcium and D. [place]: The National Academies Press.2. Hannah MF, Hilda NC, Cindy FREED, et al. Evaluation, treatment, and prevention of vitamin D deficiency: an Endocrine Society clinical practice guideline. JCEM. 2010; 96(7):1911-30. :47 CBC WITH MANUAL DIFF Comments: PATIENT NOT FASTINGPERFORMED BY: Quintilesrp Ykobdt0548 [facility] [id number] Information: [id number] (82917) Immature Grans (Abs) 0.0 {x10E3/uL} (Normal) Range: 0.0-0.1 Immature Granulocytes 0 % (Normal) Range: 0-2 Baso (Absolute) 0.0 {x10E3/uL} (Normal) Range: 0.0-0.2 Eos (Absolute) 0.1 {x10E3/uL} (Normal) Range: 0.0-0.4 Monocytes(Absolute) 0.5 {x10E3/uL} (Normal) Range: 0.1-0.9 Lymphs (Absolute) 1.6 {x10E3/uL} (Normal) Range: 0.7-3.1 Neutrophils (Absolute) 3.6 {x10E3/uL} (Normal) Range: 1.4-7.0 Basos 0 % (Normal) Range: 0-3 Eos 2 % (Normal) Range: 0-5 Monocytes 9 % (Normal) Range: 4-12 Lymphs 27 % (Normal) Range: 14-46 Neutrophils 62 % (Normal) Range: 40-74 Platelets 355 {x10E3/uL} (Normal) Range: 155-379 RDW 16.7 % (Abnormal) Range: 12.3-15.4 MCHC 31.2 g/dL (Abnormal) Range: 31.5-35.7 MCH 25.2 pg (Abnormal) Range: 26.6-33.0 MCV 81 fL (Normal) Range: 79-97 Hematocrit 35.9 % (Normal) Range: 34.0-46.6 Hemoglobin 11.2 g/dL (Normal) Range: 11.1-15.9 RBC 4.45 {x10E6/uL} (Normal) Range: 3.77-5.28 WBC 5.9 {x10E3/uL} (Normal) Range: 3.4-10.8 28-Mck-382228:47 METABOLIC PANEL, COMPREHENSIVE Comments: PATIENT NOT FASTINGPERFORMED BY: [facility] Bjkfnp1126 [facility] [id number] (26113) ALT (SGPT) 37 [iU]/L (Abnormal) Range: 0-32 AST (SGOT) 28 [iU]/L (Normal) Range: 0-40 Alkaline Phosphatase, S 93 [iU]/L (Normal) Range: 39-117 Bilirubin, Total 0.3 mg/dL (Normal) Range: 0.0-1.2 A/G Ratio 2.1 (Normal) Range: 1.1-2.5 Albumin, Serum 4.5 g/dL (Normal) Range: 3.6-4.8 Globulin, Total 2.1 g/dL (Normal) Range: 1.5-4.5 Calcium, Serum 9.6 mg/dL (Normal) Range: 8.6-10.2 Protein, Total, Serum 6.6 g/dL (Normal) Range: 6.0-8.5 Carbon Dioxide, Total 26 mmol/L (Normal) Range: 19-28 Chloride, Serum 103 mmol/L (Normal) Range: 97-108 Potassium, Serum 4.1 mmol/L (Normal) Range: 3.5-5.2 BUN/Creatinine Ratio 19 (Normal) Range: 11-26 Sodium, Serum 141 mmol/L (Normal) Range: 134-144 eGFR If Africn Am 95 mL/min/1.73 (Normal) Creatinine, Serum 0.75 mg/dL (Normal) Range: 0.57-1.00 eGFR If NonAfricn Am 82 mL/min/1.73 (Normal) BUN 14 mg/dL (Normal) Range: 8-27 Glucose, Serum 99 mg/dL (Normal) Range: 65-99 58-Zwp-373229:47 DMNDX-XSFUYTTDBOV-ZIPBF (56936) Comments: PATIENT NOT FASTINGPERFORMED BY: [employer]70 [facility] [id number] AFP, Serum, Tumor Marker 7.6 ng/mL (Normal) Range: 0.0-8.3 Comments: Izaiah ECLIA methodology 09-Fhx-432397:47 PTT (Activated Partial Comments: PATIENT NOT FASTINGPERFORMED BY: [employer]70 [facility] [facility] [id number] Thromboplastin Time) (58184) aPTT 25 {sec} (Normal) Range: 24-33 Comments: This test has not been validated for monitoring unfractionated heparintherapy. aPTT-based therapeutic ranges for unfractionated heparintherapy have not been established. For general guidelines onHeparin monitoring, refer to the [facility] Directory of Services. 24-Vhk-137702:47 PT (Prothrobim Time) (25702) Comments: PATIENT NOT FASTINGPERFORMED BY: [facility]6370 [facility] [id number] INR 1.0 (Normal) Range: 0.8-1.2 Comments: Reference interval is for non-anticoagulated patients. . Suggested INR therapeutic range for Vitamin K anta gonist therapy: Standard Dose (moderate intensity therapeutic range): 2.0 - 3.0 Higher intensity therapeutic range 2.5 - 3.5 Prothrombin Time 10.4 {sec} (Normal) Range: 9.1-12.0 31-Sgt-153748:47 FOLIC ACID SERUM (27565) Comments: PATIENT NOT FASTINGPERFORMED BY: [place] 1968[address] [facility] [id number] Folate (Folic Acid), Serum >19.9 ng/mL (Normal) Comments: A serum folate concentration of less than 3.1 ng/mL isconsidered to represent clinical deficiency. 46-Khx-801285:47 VITAMIN B-12 (CYANOCOBALAMIN) Comments: PATIENT NOT FASTINGPERFORMED BY: [address] [id number] (45301) Vitamin B12 801 pg/mL (Normal) Range: 211-946 49-Nyh-427903:47 RETICULOCYTE COUNT MANUL Comments: PATIENT NOT FASTINGPERFORMED BY: [place] 1968370 [facility] [id number] (57028) Reticulocyte Count 0.9 % (Normal) Range: 0.6-2.6 42-Yjd-542982:47 LDH (LD) (LACTATE DEHYDROGENASE) Comments: PATIENT NOT FASTINGPERFORMED BY: [address] [id number] (12127) LDH 203 [iU]/L (Normal) Range: 0-214 67-Ges-573032:47 IRON BINDING CAPACITY (TIBC) Comments: PATIENT NOT FASTINGPERFORMED BY: [place] 1968370 [facility] [id number] (62632) Iron Saturation 13 % (Abnormal) Range: 15-55 Iron Bind.Cap.(TIBC) 391 ug/dL (Normal) Range: 250-450 Iron, Serum 51 ug/dL (Normal) Range: 35-155 UIBC 340 ug/dL (Normal) Range: 150-375 34-Yiz-257088:47 FERRITIN (94094) Comments: PATIENT NOT FASTINGPERFORMED BY: [employer]70 [facility] [id number] Ferritin, Serum 7 ng/mL (Abnormal) Range: 15-150 06-Kbk-035304:06 CULTURE, SPUTUM (89602) Comments: PATIENT NOT FASTINGPERFORMED BY: [facility] [id number] Information: SRC: SPUTUM Result 1 RRF (Normal) Comments: Routine respiratory trip Lower Respiratory Culture Final report (Normal) 8-Rcn-390867:55 Protein Electro, Random Urine Comments: PATIENT WAS FASTINGPERFORMED BY: [employer]70 [facility] [id number] Please note: SPRCS (Normal) Comments: Protein electrophoresis scan will follow via computer, mail, orcourier delivery. Gamma Globulin, U 27.2 % (Normal) M-Roque, % Not Observed % (Normal) Beta Globulin, U 31.3 % (Normal) Ltdob-9-Afuxdkdl, U 3.2 % (Normal) Hdfld-4-Uejvifor, U 15.8 % (Normal) Albumin, U 22.6 % (Normal) Protein,Total,Urine 13.6 mg/dL (Normal) Range: 0.0-15.0 4-Dzc-899132:55 Protein Electro.,S Comments: PATIENT WAS FASTINGPERFORMED BY: [employer] Cfpote1048 [facility] [id number] A/G Ratio 1.8 (Normal) Range: 0.7-2.0 Please note: SPRCS (Normal) Comments: Protein electrophoresis scan will follow via computer, mail, orcourier delivery. Gamma Globulin 0.6 g/dL (Normal) Range: 0.5-1.6 Globulin, Total 2.4 g/dL (Normal) Range: 2.0-4.5 M-Roque Not Observed g/dL (Normal) Kramv-9-Rbmvwtjc 0.2 g/dL (Normal) Range: 0.1-0.4 Qvokm-0-Fkrvjeux 0.6 g/dL (Normal) Range: 0.4-1.2 Beta Globulin 1.0 g/dL (Normal) Range: 0.6-1.3 Albumin 4.2 g/dL (Normal) Range: 3.2-5.6 :55 TSH (18222) Comments: PATIENT WAS FASTINGPERFORMED BY: LabCoHampton Behavioral Health CenterPrnnht2062 [facility] [id number] TSH 2.610 {uIU/mL} (Normal) Range: 0.450-4.500 :55 CBC WITH MANUAL DIFF (58237) Comments: PATIENT WAS FASTINGPERFORMED BY: LabCoHampton Behavioral Health CenterLftayl3972 [facility] [id number] Immature Grans (Abs) 0.0 {x10E3/uL} (Normal) Range: 0.0-0.1 Immature Granulocytes 0 % (Normal) Range: 0-2 Baso (Absolute) 0.0 {x10E3/uL} (Normal) Range: 0.0-0.2 Eos (Absolute) 0.2 {x10E3/uL} (Normal) Range: 0.0-0.4 Monocytes(Absolute) 0.5 {x10E3/uL} (Normal) Range: 0.1-0.9 Lymphs (Absolute) 1.8 {x10E3/uL} (Normal) Range: 0.7-3.1 Neutrophils (Absolute) 2.7 {x10E3/uL} (Normal) Range: 1.4-7.0 Basos 0 % (Normal) Range: 0-3 Eos 3 % (Normal) Range: 0-5 Monocytes 10 % (Normal) Range: 4-12 Lymphs 34 % (Normal) Range: 14-46 Neutrophils 53 % (Normal) Range: 40-74 Platelets 329 {x10E3/uL} (Normal) Range: 155-379 RDW 17.1 % (Abnormal) Range: 12.3-15.4 MCHC 30.8 g/dL (Abnormal) Range: 31.5-35.7 MCH 25.1 pg (Abnormal) Range: 26.6-33.0 MCV 82 fL (Normal) Range: 79-97 Hematocrit 35.4 % (Normal) Range: 34.0-46.6 Hemoglobin 10.9 g/dL (Abnormal) Range: 11.1-15.9 RBC 4.34 {x10E6/uL} (Normal) Range: 3.77-5.28 WBC 5.2 {x10E3/uL} (Normal) Range: 3.4-10.8 9-Uid-863783:55 METABOLIC PANEL, COMPREHENSIVE Comments: PATIENT WAS FASTINGPERFORMED BY: LabCoHam[facility] Behavioral Health CenterQverkf8790 [facility] [id number] (37950) ALT (SGPT) 36 [iU]/L (Abnormal) Range: 0-32 AST (SGOT) 28 [iU]/L (Normal) Range: 0-40 Alkaline Phosphatase, S 85 [iU]/L (Normal) Range: 39-117 Bilirubin, Total 0.3 mg/dL (Normal) Range: 0.0-1.2 A/G Ratio 1.9 (Normal) Range: 1.1-2.5 Globulin, Total 2.3 g/dL (Normal) Range: 1.5-4.5 Albumin, Serum 4.3 g/dL (Normal) Range: 3.6-4.8 Protein, Total, Serum 6.6 g/dL (Normal) Range: 6.0-8.5 Calcium, Serum 9.2 mg/dL (Normal) Range: 8.6-10.2 Carbon Dioxide, Total 25 mmol/L (Normal) Range: 19-28 Chloride, Serum 103 mmol/L (Normal) Range: 97-108 Potassium, Serum 4.6 mmol/L (Normal) Range: 3.5-5.2 Sodium, Serum 140 mmol/L (Normal) Range: 134-144 BUN/Creatinine Ratio 24 (Normal) Range: 11-26 eGFR If Africn Am 90 mL/min/1.73 (Normal) eGFR If NonAfricn Am 78 mL/min/1.73 (Normal) Creatinine, Serum 0.78 mg/dL (Normal) Range: 0.57-1.00 BUN 19 mg/dL (Normal) Range: 8-27 Glucose, Serum 88 mg/dL (Normal) Range: 65-99 0-Xja-825572:55 LIPID PANEL (98072) Comments: PATIENT WAS FASTINGPERFORMED BY: QuintilesHampton Behavioral Health CenterFsixlp0146 [facility] [id number] LDL/HDL Ratio 1.7 {ratio_units} (Normal) Range: 0.0-3.2 LDL Cholesterol Calc 138 mg/dL (Abnormal) Range: 0-99 VLDL Cholesterol Sumeet 19 mg/dL (Normal) Range: 5-40 Cholesterol, Total 240 mg/dL (Abnormal) Range: 100-199 HDL Cholesterol 83 mg/dL (Normal) Comments: According to ATP-III Guidelines, HDL-C >59 mg/dL is considered anegative risk factor for CHD. Triglycerides 97 mg/dL (Normal) Range: 0-149 :30 HgA1C , Office (52232) HgA1C , Office 5.6 % (Normal) Range: 4.6 - 7.1 :35 CALCIFEDIOL (33343) Comments: PATIENT WAS FASTINGPERFORMED BY: [facility]6370 [facility] [id number] Vitamin D, 25-Hydroxy 33.8 ng/mL (Normal) Range: 30.0-100.0 Comments: Vitamin D deficiency has been defined by the [place] of[place]icine and an Endocrine Society practice guideline as alevel of serum 25-OH vitamin D less than 20 ng/mL (1,2).The Endocrine Society went on to further define vitamin Dinsufficiency as a level between 21 and 29 ng/mL (2).1. IOM ([place]). 2010. Dietary reference intakes for calcium and D. [place]: The National Academies Press.2. Hannah MF, Hilda NC, Cindy FREED, et al. Evaluation, treatment, and prevention of vitamin D deficiency: an Endocrine Society clinical practice guideline. JCEM. 2010; 96(7):1911-30. :35 CBC with manual diff Comments: PATIENT WAS FASTINGPERFORMED BY: LabCoHam[facility] Behavior[facility] Health CenterVorpgj0700 [facility] [id number] Information: [id number] (12115) Immature Grans (Abs) 0.0 {x10E3/uL} (Normal) Range: 0.0-0.1 Immature Granulocytes 0 % (Normal) Range: 0-2 Baso (Absolute) 0.0 {x10E3/uL} (Normal) Range: 0.0-0.2 Eos (Absolute) 0.1 {x10E3/uL} (Normal) Range: 0.0-0.4 Monocytes(Absolute) 0.6 {x10E3/uL} (Normal) Range: 0.1-1.0 Lymphs (Absolute) 1.7 {x10E3/uL} (Normal) Range: 0.7-4.5 Neutrophils (Absolute) 2.2 {x10E3/uL} (Normal) Range: 1.8-7.8 Basos 1 % (Normal) Range: 0-3 Eos 2 % (Normal) Range: 0-7 Lymphs 38 % (Normal) Range: 14-46 Monocytes 13 % (Normal) Range: 4-13 Neutrophils 46 % (Normal) Range: 40-74 Platelets 292 {x10E3/uL} (Normal) Range: 140-415 Comments: Effective July 17, 2013, the reference intervals for CBC:WBC, Differential Parameters (Neutrophil %, Neutrophil Absolute, Lymphocyte %, Lymphocyte Absolute, Monocyte %, Monocyte Absolute, Eos inophil %, Eosinophil Absolute), and Platelet Counts will be adjusted to maintain consistency with the distribution of these values in the reference population. RDW 13.7 % (Normal) Range: 12.3-15.4 MCHC 30.9 g/dL (Abnormal) Range: 31.5-35.7 MCH 26.4 pg (Abnormal) Range: 26.6-33.0 MCV 85 fL (Normal) Range: 79-97 Hematocrit 36.2 % (Normal) Range: 34.0-46.6 Hemoglobin 11.2 g/dL (Normal) Range: 11.1-15.9 RBC 4.25 {x10E6/uL} (Normal) Range: 3.77-5.28 WBC 4.6 {x10E3/uL} (Normal) Range: 4.0-10.5 Comments: Effective July 17, 2013, the reference intervals for CBC:WBC, Differential Parameters (Neutrophil %, Neutrophil Absolute, Lymphocyte %, Lymphocyte Absolute, Monocyte %, Monocyte Absolute, Eos inophil %, Eosinophil Absolute), and Platelet Counts will be adjusted to maintain consistency with the distribution of these values in the reference population. :35 Lipid Panel (56392) Comments: PATIENT WAS FASTINGPERFORMED BY: QuintilesHam[facility] Health CenterXjkffw0523 [facility] [id number] LDL/HDL Ratio 1.3 {ratio_units} (Normal) Range: 0.0-3.2 LDL Cholesterol Calc 110 mg/dL (Abnormal) Range: 0-99 HDL Cholesterol 85 mg/dL (Normal) Comments: According to ATP-III Guidelines, HDL-C >59 mg/dL is considered anegative risk factor for CHD. VLDL Cholesterol Sumeet 23 mg/dL (Normal) Range: 5-40 Triglycerides 115 mg/dL (Normal) Range: 0-149 Cholesterol, Total 218 mg/dL (Abnormal) Range: 100-199 :35 Metabolic Panel, Comprehensive Comments: PATIENT WAS FASTINGPERFORMED BY: [employer] [id number] [id number]) ALT (SGPT) 26 [iU]/L (Normal) Range: 0-32 AST (SGOT) 27 [iU]/L (Normal) Range: 0-40 Alkaline Phosphatase, S 80 [iU]/L (Normal) Range: 47-112 Bilirubin, Total 0.4 mg/dL (Normal) Range: 0.0-1.2 A/G Ratio 1.9 (Normal) Range: 1.1-2.5 Globulin, Total 2.3 g/dL (Normal) Range: 1.5-4.5 Albumin, Serum 4.4 g/dL (Normal) Range: 3.6-4.8 Protein, Total, Serum 6.7 g/dL (Normal) Range: 6.0-8.5 Calcium, Serum 9.3 mg/dL (Normal) Range: 8.6-10.2 Carbon Dioxide, Total 25 mmol/L (Normal) Range: 19-28 Chloride, Serum 102 mmol/L (Normal) Range: 97-108 Potassium, Serum 4.4 mmol/L (Normal) Range: 3.5-5.2 Sodium, Serum 141 mmol/L (Normal) Range: 134-144 BUN/Creatinine Ratio 18 (Normal) Range: 11-26 eGFR If Africn Am 90 mL/min/1.73 (Normal) Creatinine, Serum 0.79 mg/dL (Normal) Range: 0.57-1.00 eGFR If NonAfricn Am 78 mL/min/1.73 (Normal) BUN 14 mg/dL (Normal) Range: 8-27 Glucose, Serum 95 mg/dL (Normal) Range: 65-99 :17 Protein Electro, Random Urine Comments: PATIENT NOT FASTINGPERFORMED BY: [id number] [facility] [id number] Gamma Globulin, U 33.0 % (Normal) M-Roque, % Not Observed % (Normal) Please note: SPRCS (Normal) Comments: Protein electrophoresis scan will follow via computer, mail, orcourier delivery. Gmvub-0-Sulmgdak, U 12.2 % (Normal) Beta Globulin, U 27.5 % (Normal) Zezxr-8-Leurtbwr, U 2.3 % (Normal) Albumin, U 25.0 % (Normal) Protein,Total,Urine 4.6 mg/dL (Normal) Range: 0.0-15.0 :17 Protein Electro.,S Comments: PATIENT NOT FASTINGPERFORMED BY: [id number] [facility] [id number] A/G Ratio 1.5 (Normal) Range: 0.7-2.0 Please note: SPRCS (Normal) Comments: Protein electrophoresis scan will follow via computer, mail, orcourier delivery. Globulin, Total 2.6 g/dL (Normal) Range: 2.0-4.5 M-Roque Not Observed g/dL (Normal) Gamma Globulin 0.7 g/dL (Normal) Range: 0.5-1.6 Pzisa-9-Zinihjhs 0.7 g/dL (Normal) Range: 0.4-1.2 Beta Globulin 1.0 g/dL (Normal) Range: 0.6-1.3 Spjpe-4-Ycraogan 0.2 g/dL (Normal) Range: 0.1-0.4 Albumin 4.0 g/dL (Normal) Range: 3.2-5.6 Protein, Total, Serum 6.6 g/dL (Normal) Range: 6.0-8.5 18-Zaw-394847:17 PHOSPHORUS (65493) Comments: PATIENT NOT FASTINGPERFORMED BY: [facility] Swnyds[address]Dublin [place] [id number] Phosphorus, Serum 3.6 mg/dL (Normal) Range: 2.5-4.5 04-Sxd-799844:17 PARATHORMONE (68622) Comments: PATIENT NOT FASTINGPERFORMED BY: CB [facility] Tnxgbp0227 [address]Dublin [place] [id number] PTH, Intact 17 pg/mL (Normal) Range: 15-65 30-Xxv-515554:17 TSH (42860) Comments: PATIENT NOT FASTINGPERFORMED BY: CB [facility] Qdqhkk1085 [address]Dublin [place] [id number] TSH 2.130 {uIU/mL} (Normal) Range: 0.450-4.500 57-Hmf-893788:17 VITAMIN B-12 (CYANOCOBALAMIN) Comments: PATIENT NOT FASTINGPERFORMED BY: CB [facility] Hntjzq[address]Dublin [place] [id number] (49555) Vitamin B12 886 pg/mL (Normal) Range: 211-946 02-Gbf-952389:54 CHEST WITH CONTRAST Radiology Report See Note (Normal) Comments: PROCEDURE: CT CHEST WITH CONTRAST REASON FOR EXAM: Female, 67 years old. Productive cough. The patienthas a history of breast cancer. RADIATION DOSAGE (If Supplied By Facility): CTDIvol = ( 12.98 ) mGy, DLP=( 609.42 ) mGycm TECHNIQUE: High resolution transaxial imaging was performed followingintravenous administration of 100ml ml of Isovue 300 contrast material.Multiplanar coronal and sagittal images were reformatted. COMPARISON: None. FINDINGS:The patient is status post bilateral mastectomy with bilateral breastprostheses. The bilateral breast prostheses are very irregular withthickening of the outer lining with indentations. This is suggestive ofbilateral prostatic rupture. The lungs are normal. There is no demonstrated pleural abnormality. Normal heart and pericardium. Normal media stinum. Normal hilar regions. Normal enhancement of thepulmonary arteries. Normal enhanced thoracic aorta and visualized greatvessels. There are multi- level degenerative changes of the thoracic spine . Small hiatal hernia. Three cysts are seen in the lateral portion of theright lobe of the liver. The largest measures 3 cm x 2.2 cm. 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 Signed:Yousif Hathaway M.D.March 22, 2013 at 1:20:07 PM [id number] Signed GP/GP If you are the referring physician and would like to consult with theradiologist who provided this interpretation, please contact Leslye Escobedo at [phone]. If this radiologist is unavailable, steph hensley be directed to another radiologist to assist. If you are a patient with a question regarding this report, pleasecontactyour referring physician directly. Professional Interpretation Provided By: [employer], Phone , These documents contain legally protected and confidential healthinformation intended only for the use of the individual or entity namedabove. If you ar e not the intended recipient, you are hereby notifiedthatany disclosure, copying, distribution, or other use of these documents isstrictly prohibited. If you have received this information in error,plea senotify the sender immediately and arrange for the return or destructionofthese documents. Dictated on 03/21/13 1403 by Rivas ADHIKARI,Amandaranscribed on 03/22/13 1322 by ITS IMPORTSign by Evelia avendaño MD,Yousif on 03/22/13 1323 Sign by: Yousif Hathaway MD 6-Nbp-591190:31 Calcium, 24Hr Urine Comments: PERFORMED BY: [facility] [facility] [id number] Information: 03/07@220AM 03/08@220AM Calcium, Urine 24hr 173.8 {mg/24_hr} (Normal) Range: 100.0-300.0 Calcium, Urine 15.8 mg/dL (Normal) 7-Kae-951262:23 CULTURE, SPUTUM (16104) Comments: PATIENT NOT FASTINGPERFORMED BY: [facility] Myymwk7226 [facility] [id number] Information: SRC:PAYTON [id number] Result 1 RRF (Normal) Comments: Routine respiratory trip Lower Respiratory Culture Final report (Normal) 48-Bhp-581760:26 DEXA BONE DENSITY STUDY (HP) Radiology Report See Note (Normal) Comments: PROCEDURE: DUAL ENERGY X-RAY ABSORPTIOMETRY / DXA REASON FOR EXAM: Female, 67 years old. Osteopenia. TECHNIQUE: Bone Mineral Density (BMD) measurements of lumbar spine andbilateral hips were obtai chika. COMPARISON: Comparison is made with prior study dated November 27, 2010. FINDINGS: Lumbar Spine (L1-L4): g/cm2 (1.114) / T-score (-0.5) / Z-score (1.2) Left Femur Total: g/cm2 (0.833) / T- score (-1.4) / Z-score (-0.1)Left Femoral Neck: g/cm2 (0.715) / T-score (-2.3) / Z-score (-0.8)Right Femur Total: g/cm2 (0.913) / T-score (-0.8) / Z-score (0.6)Right Femoral Neck: g/cm2 (0. 799) / T-score (-1.7) / Z-score (-0.2) The T-Scores on the most recent prior examination were: Lumbar Spine (L1-L4): which represents an improvement of 5.4%.Left Femur Total: which represe nts a worsening of 9.1%.Right Femur Total: which represents an improvement of 0.7%. IMPRESSION:The patient is considered osteopenic, as outlined above, according toWorldHealth Organization (WHO) cr iteria. Fracture risk is moderate. Reference Information:The T-score is the number of standard deviations above or below thestandard which is normal for young adults at their peak bone mineraldensity. The World Health Organization (WHO) interprets the T-scores asfollows: Above -1 Normal bone densityBetween -1 and -2.5 OsteopeniaEqual to / or below -2.5 Osteoporosis As a practical clinic al guideline, osteopenia may be graded as follows:Mild -1 through -1.5Moderate -1.6 through -2.0Severe -2.1 through -2.4 The Z-score is the number of standard deviations above or below age-matchedcon trols. A Z-score of less than -1.5 would be considered abnormal. References:1. NIH Osteoporosis and Related Bone Diseases http://www.osteo.org2. International Society for Clinical Densitometry http:// www.iscd.org3. National Osteoporosis Foundation http://www.nof.org Signed:Yousif Hathaway M.D.January 21, 2013 at 8:47:25 AM [id number] Signed GP/GP If you are the referring physic elliott and would like to consult with theradiologist who provided this interpretation, please contact Leslye Escobedo at [phone]. If this radiologist is unavailable, youwill be directed to ano ther radiologist to assist. If you are a patient with a question regarding this report, pleasecontactyour referring physician directly. Professional Interpretation Provided By: [employer], Phone , These documents contain legally protected and confidential healthinformation intended only for the use of the individual or entity namedabove. If you are not the intended recip ient, you are hereby notifiedthatany disclosure, copying, distribution, or other use of these documents isstrictly prohibited. If you have received this information in error,pleasenotify the sender imme yasely and arrange for the return or destructionofthese documents. Dictated on 01/18/13 1126 by Rivas ADHIKARI,Amandaranscribed on 01/21/13 0849 by ITS IMPORTSign by Yousif Hathaway MD on 01/21 0850 Sign by: Yousif Hathaway MD 12-Jan-2013 C difficile Toxins Positive Comments: PERFORMED BY: [facility] Batcnf[address] [facility] [id number] Information: SRC:ST 13:41 A+B, EIA (Abnormal) 72-Pwc-392298:38 Urinalysis, Office (87176) UA - BILIRUBIN Negative (Normal) UA - BLOOD Negative (Normal) UA - GLUCOSE Negative (Normal) UA - KETONES Negative mg/dL (Normal) UA - LEUKOCYTE ESTERASE Small (Normal) UA - NITRITE Negative (Normal) UA - PH 8.0 (Normal) UA - PROTEIN Negative mg/dL (Normal) UA - SPECIFIC GRAVITY 1.015 (Normal) URINE UROBILINGN OSMAR Normal mg/dL TIMED (Normal) : C difficile Toxins A+B, Positive (Abnormal) Comments: PERFORMED BY: [facility] [facility] [id number] Information: SRC:ST 56 EIA :0 CDIF See Note (Normal) Comments: COPY OF REPORT SENT TO INFECTION CONTROL 12/06/12 1432SL[facility]RESULTS CALLED TO OFFICE TO JACOBO12/06/12 LIZBETH MENEZES.REPORT READ BACK BY SAME . 1 Comments: A positive result in the glutamate dehydrogenase ofC. Difficile confirms the presence of the organism in a presence of toxigenic C. difficile. An indeterminate result (Antigen Negative/Toxin Positive)wi ll occur in approximaately 10-12% of cases and should betreated as a positive result and retested with a freshspecimen. NOTE that Molecular testing for C. difficile isalso available in these cases. C. DIFF ANTIGENS POSITIVE :01 CUST Comments: COPY OF REPORT SENT TO INFECTION CONTROL 12/06/12 1432SOSBORN.RESULTS CALLED TO OFFICE TO JACOBO12/06/12 LIZBETH MENEZES.REPORT READ BACK BY SAME . SHIGA See Note (Normal) Comments: SHIGA TOXIN 1 AND SHIGA TOXIN 2 NOT DETECTED CULST See Note (Normal) Comments: No Salmonella, Shigella, Yersinia or Campylobacter isolated.No significant amount of Staphylococcus aureusor yeast-like organisms isolated. :01 OP See Note (Normal) Comments: OVA AND PARASITES EXAM, ROUTINE These results were obtained using wet preparation(s) and trichrome stained smear. This test does not include testing for Crytosporidium parvum, Cyclospora, or Microspo ridia. TESTING PERFORMED AT [facility]. ORIGINAL REPORT ON FILE IN LAB CONTAINS ADDITIONAL TEST SITE INFORMATION. OVA/ PARASITES EXAM NO OVA, CYSTS, OR PARASITES FOUND. : STOB See Note (Abnormal) Comments: COPY OF REPORT SENT TO INFECTION CONTROL 12/06/12 1432[facility].RESULTS CALLED TO DR.FAST JOSEPH TO JACOBO12/06/12 LIZBETH MENEZES.REPORT READ BACK BY SAME . Comments: OCCULT BLOOD POSITIVE WBCST See Note (Abnormal) Comments: COPY OF REPORT SENT TO INFECTION CONTROL 12/06/12 1432[facility].RESULTS CALLED TO DR.FAST JOSEPH TO JACOBO12/06/12 LIZBETH MENEZES.REPORT READ BACK BY SAME . Comments: FECAL WBC LACTOFERRIN Positive: Fecal WBC Lactoferrin present :00 MICROALBUMIN: CREATININE RATIO Comments: PATIENT WAS FASTINGPERFORMED BY: [facility] [facility] [id number] ([id number]) AND (85165) Creatinine, Urine 144.4 mg/dL (Normal) Range: 15.0-278.0 Microalb/Creat Ratio 4.2 {mg/g_creat} (Normal) Range: 0.0-30.0 Microalbumin, Urine 6.0 ug/mL (Normal) Range: 0.0-17.0 :00 LIPID PANEL (79738) Comments: PATIENT WAS FASTINGPERFORMED BY: [facility] [facility] [id number] LDL/HDL Ratio 1.3 {ratio_units} (Normal) Range: 0.0-3.2 HDL Cholesterol 87 mg/dL (Normal) Comments: According to ATP-III Guidelines, HDL-C >59 mg/dL is considered anegative risk factor for CHD. LDL Cholesterol Calc 116 mg/dL (Abnormal) Range: 0-99 VLDL Cholesterol Sumeet 24 mg/dL (Normal) Range: 5-40 Cholesterol, Total 227 mg/dL (Abnormal) Range: 100-199 Triglycerides 122 mg/dL (Normal) Range: 0-149 70-Hzr-538237:00 CBC WITH MANUAL DIFF Comments: PATIENT WAS FASTINGPERFORMED BY: [facility] CenterOzejtm7619 [facility] [id number] Information: [id number] (44639) Immature Grans (Abs) 0.0 {x10E3/uL} (Normal) Range: 0.0-0.1 Immature Granulocytes 0 % (Normal) Range: 0-2 Baso (Absolute) 0.0 {x10E3/uL} (Normal) Range: 0.0-0.2 Eos (Absolute) 0.1 {x10E3/uL} (Normal) Range: 0.0-0.4 Monocytes(Absolute) 0.5 {x10E3/uL} (Normal) Range: 0.1-1.0 Lymphs (Absolute) 1.8 {x10E3/uL} (Normal) Range: 0.7-4.5 Neutrophils (Absolute) 2.2 {x10E3/uL} (Normal) Range: 1.8-7.8 Basos 0 % (Normal) Range: 0-3 Eos 2 % (Normal) Range: 0-7 Monocytes 11 % (Normal) Range: 4-13 Lymphs 39 % (Normal) Range: 14-46 Neutrophils 48 % (Normal) Range: 40-74 Platelets 265 {x10E3/uL} (Normal) Range: 140-415 RDW 14.6 % (Normal) Range: 12.3-15.4 MCHC 33.1 g/dL (Normal) Range: 31.5-35.7 MCH 29.3 pg (Normal) Range: 26.6-33.0 MCV 89 fL (Normal) Range: 79-97 Hematocrit 40.8 % (Normal) Range: 34.0-46.6 Hemoglobin 13.5 g/dL (Normal) Range: 11.1-15.9 RBC 4.60 {x10E6/uL} (Normal) Range: 3.77-5.28 WBC 4.6 {x10E3/uL} (Normal) Range: 4.0-10.5 94-Jxb-744376:00 METABOLIC PANEL, COMPREHENSIVE Comments: PATIENT WAS FASTINGPERFORMED BY: [facility] [id number] ([id number]) ALT (SGPT) 26 [iU]/L (Normal) Range: 0-32 AST (SGOT) 27 [iU]/L (Normal) Range: 0-40 Alkaline Phosphatase, S 65 [iU]/L (Normal) Range: 25-165 Bilirubin, Total 0.5 mg/dL (Normal) Range: 0.0-1.2 A/G Ratio 2.1 (Normal) Range: 1.1-2.5 Globulin, Total 2.2 g/dL (Normal) Range: 1.5-4.5 Albumin, Serum 4.6 g/dL (Normal) Range: 3.6-4.8 Protein, Total, Serum 6.8 g/dL (Normal) Range: 6.0-8.5 Calcium, Serum 9.2 mg/dL (Normal) Range: 8.6-10.2 Carbon Dioxide, Total 24 mmol/L (Normal) Range: 20-32 Chloride, Serum 104 mmol/L (Normal) Range: 97-108 Potassium, Serum 4.1 mmol/L (Normal) Range: 3.5-5.2 Sodium, Serum 141 mmol/L (Normal) Range: 134-144 BUN/Creatinine Ratio 21 (Normal) Range: 11-26 eGFR If Africn Am 104 mL/min/1.73 (Normal) eGFR If NonAfricn Am 90 mL/min/1.73 (Normal) Creatinine, Serum 0.70 mg/dL (Normal) Range: 0.57-1.00 BUN 15 mg/dL (Normal) Range: 8-27 Glucose, Serum 93 mg/dL (Normal) Range: 65-99 44-Lat-970500:00 Vitamin D Hydroxy (23377) Comments: PATIENT WAS FASTINGPERFORMED BY: [facility] [id number] Vitamin D, 25-Hydroxy 34.1 ng/mL (Normal) Range: 30.0-100.0 Comments: Vitamin D deficiency has been defined by the [place] of[place]icine and an Endocrine Society practice guideline as alevel of serum 25-OH vitamin D less than 20 ng/mL (1,2).The Endocrine Society went on to further define vitamin Dinsufficiency as a level between 21 and 29 ng/mL (2).1. IOM ([place] of [employer]). 2010. Dietary reference intakes for calcium and D. [place]: The National Academies Press.2. Hannah MF, Hilda SONG, Cindy FREED, et al. Evaluation, treatment, and prevention of vitamin D deficiency: an Endocrine Society clinical practice guideline. JCEM. 2010; 96(7):1911-30. 43-Qup-238978:29 URINE WON CULTURE-OSMAR COL Comments: PATIENT NOT FASTINGPERFORMED BY: [facility] Aqsuby8790 [facility] [id number] Information: SRC:UR [id number] COUNT ([id number]) Result 1 CNSNSS (Normal) Comments: Coagulase negative Staphylococcus species, not Staphylococcussaprophyticus.400 Colonies/mLBased on resistance to oxacillin this isolate would be resistant toall currently available beta-lactam antimicro bial agents, with theexception of the newer cephalosporins with anti-MRSA activity, such asCeftaroline S = Susceptible; I = Intermediate; R = Resistant P = Positive; N = Negative MICS are expressed in micrograms per mL Antibiotic RSLT#1 RSLT#2 RSLT#3 RSLT#4Ciprofloxacin RGentamicin SLevofloxacin RLinezolid SNitrofurantoin SOxacillin RPenicillin RRifampin STetracycline STrimethoprim/Sulfa SVancomycin S Urine Final report Culture,Comprehensi (Normal) ve 55-Fgg-340361:39 Urinalysis, Office (37693) UA - BILIRUBIN Negative (Normal) UA - BLOOD Negative (Normal) UA - GLUCOSE Negative (Normal) UA - KETONES Negative mg/dL (Normal) UA - LEUKOCYTE ESTERASE Trace (Normal) UA - NITRITE Negative (Normal) UA - PH 8.0 (Normal) UA - PROTEIN Trace mg/dL (Normal) UA - SPECIFIC GRAVITY 1.020 (Normal) URINE UROBILINGN OSMAR TIMED Normal mg/dL (Normal) 08-Wua-790349:27 HgA1C , Office (69319) HgA1C , Office 5.9 % (Normal) Range: 4.6 - 7.1 :45 CULTURE, SPUTUM (25370) Comments: PATIENT NOT FASTINGPERFORMED BY: [facility] [id number] Information: SRC:[facility] [id number] Result 1 RRF (Normal) Comments: Routine respiratory trip Lower Respiratory Culture Final report (Normal) 2-Ltn-052387:41 Urinalysis, Office (06928) UA - BILIRUBIN Negative (Normal) UA - BLOOD Negative (Normal) UA - GLUCOSE Negative (Normal) UA - KETONES Negative mg/dL (Normal) UA - LEUKOCYTE ESTERASE Trace (Normal) UA - NITRITE Negative (Normal) UA - PH 7.0 (Normal) UA - PROTEIN Negative mg/dL (Normal) UA - SPECIFIC GRAVITY 1.020 (Normal) URINE UROBILINGN OSMAR TIMED Normal mg/dL (Normal) 26-Kod-308629:29 Urinalysis, Office (23355) UA - BILIRUBIN Negative (Normal) UA - BLOOD Hemolyzed Large (Normal) UA - GLUCOSE Negative (Normal) UA - KETONES Negative mg/dL (Normal) UA - LEUKOCYTE ESTERASE Trace (Normal) UA - NITRITE Negative (Normal) UA - PH 6.0 (Normal) Comments: 5.5 UA - PROTEIN Negative mg/dL (Normal) UA - SPECIFIC GRAVITY 1.025 (Normal) Comments: >=1.030 URINE UROBILINGN OSMAR TIMED Normal mg/dL (Normal) 92-Viq-307735:59 URINE WON CULTURE-OSMAR COL Comments: PATIENT NOT FASTINGPERFORMED BY: [facility] Zbvaza4772 [facility] [id number] Information: SRC: [id number] COUNT ([id number]) Result 1 Alpha streptococcus Comments: 900 Colonies/mLSusceptibility not normally performed on this organism. (Normal) Urine Final report (Normal) Culture,Comprehensi ve 59-Hmh-803219:41 Urinalysis, Office (22685) UA - NITRITE Negative (Normal) URINE UROBILINGN OSMAR TIMED 2 mg/dL (Normal) UA - PROTEIN Trace mg/dL (Normal) UA - PH 7.0 (Normal) UA - BLOOD Hemolyzed Large (Normal) UA - SPECIFIC GRAVITY 1.025 (Normal) UA - KETONES Negative mg/dL (Normal) UA - BILIRUBIN Negative (Normal) UA - GLUCOSE Negative (Normal) 54-Fva-01870:00 CHEST, PA AND LATERAL Radiology Report See Note (Normal) Comments: PROCEDURE: X-RAY CHEST REASON FOR EXAM: Female, 66 years old. The patient has a history ofbreast cancer. TECHNIQUE: PA and lateral views of the chest. COMPARISON: Comparison is made with prior study dated February 16, 2011. FINDINGS:The patient is status post collateral mastectomy with reconstruction . The lungs are expanded. There is no demonstrated parenchymalabnormality.There is evidence of calcified old granulomatous disease. There is nodemonstrated pleural abnormality. There is mild cardiac enlargement. Normal mediastinum and ester. Normal visualized pulmonary arteries.Thereis atheroscl erotic tortuosity of the aortic arch and descending thoracicaorta. There are diffuse degenerative changes of the visualized thoracic spine.Normal visualized ribs, clavicles, and shoulders. There is no d emonstrated abnormality of the visualized soft tissuestructures of the upper abdomen. IMPRESSION:Status post collateral mastectomy. There has been no change. Signed:Yousif Hathaway M.D.July at 1:40:15 PM [id number] Signed GP/GP If you are the referring physician and would like to consult with theradiologist who provided this interpretation, please contact Yousif Hathaway M.D. at [phone]. If this radiologist is unavailable, youwill be directed to another radiologist to assist. If you are a patient with a question regarding this report, pleasecontactyour yeny butcher physician directly. Professional Interpretation Provided By: [employer], Phone , These documents contain legally protected and confidential healthinformation inte nded only for the use of the individual or entity namedabove. If you are not the intended recipient, you are hereby notifiedthatany disclosure, copying, distribution, or other use of these documents iss trictly prohibited. If you have received this information in error,pleasenotify the sender immediately and arrange for the return or destructionofthese documents. Dictated on 07/27/12 1351 by Evelia avendaño MD,GilriBlancaranscribed on 07/28/12 1402 by ITS IMPORTSign by Rivas ADHIKARI,Yousif on 07/28/12 1403 Sign by: Yousif Hathaway MD 69-Ybv-538182:27 CBC WITH MANUAL DIFF Comments: PATIENT WAS FASTINGPERFORMED BY: [facility] [id number] Information: [id number] (56931) Immature Grans (Abs) 0.0 {x10E3/uL} (Normal) Range: 0.0-0.1 Immature Granulocytes 0 % (Normal) Range: 0-2 Baso (Absolute) 0.0 {x10E3/uL} (Normal) Range: 0.0-0.2 Eos (Absolute) 0.2 {x10E3/uL} (Normal) Range: 0.0-0.4 Monocytes(Absolute) 0.5 {x10E3/uL} (Normal) Range: 0.1-1.0 Lymphs (Absolute) 2.0 {x10E3/uL} (Normal) Range: 0.7-4.5 Neutrophils (Absolute) 3.2 {x10E3/uL} (Normal) Range: 1.8-7.8 Basos 0 % (Normal) Range: 0-3 Eos 3 % (Normal) Range: 0-7 Monocytes 8 % (Normal) Range: 4-13 Lymphs 34 % (Normal) Range: 14-46 Neutrophils 55 % (Normal) Range: 40-74 Platelets 292 {x10E3/uL} (Normal) Range: 140-415 RDW 14.6 % (Normal) Range: 12.3-15.4 MCHC 32.9 g/dL (Normal) Range: 31.5-35.7 MCH 29.5 pg (Normal) Range: 26.6-33.0 MCV 90 fL (Normal) Range: 79-97 Hematocrit 39.2 % (Normal) Range: 34.0-46.6 Hemoglobin 12.9 g/dL (Normal) Range: 11.1-15.9 RBC 4.38 {x10E6/uL} (Normal) Range: 3.77-5.28 WBC 5.9 {x10E3/uL} (Normal) Range: 4.0-10.5 :27 METABOLIC PANEL, COMPREHENSIVE Comments: PATIENT WAS FASTINGPERFORMED BY: [facility] CenterVyowfn8264 [facility] [id number] ([id number]) ALT (SGPT) 16 [iU]/L (Normal) Range: 0-32 Comments: Please note reference interval change AST (SGOT) 18 [iU]/L (Normal) Range: 0-40 Alkaline Phosphatase, S 67 [iU]/L (Normal) Range: 25-165 Bilirubin, Total 0.4 mg/dL (Normal) Range: 0.0-1.2 A/G Ratio 2.3 (Normal) Range: 1.1-2.5 Globulin, Total 2.0 g/dL (Normal) Range: 1.5-4.5 Albumin, Serum 4.5 g/dL (Normal) Range: 3.6-4.8 Protein, Total, Serum 6.5 g/dL (Normal) Range: 6.0-8.5 Calcium, Serum 9.6 mg/dL (Normal) Range: 8.6-10.2 Carbon Dioxide, Total 27 mmol/L (Normal) Range: 20-32 Chloride, Serum 104 mmol/L (Normal) Range: 97-108 Potassium, Serum 4.2 mmol/L (Normal) Range: 3.5-5.2 Sodium, Serum 141 mmol/L (Normal) Range: 134-144 BUN/Creatinine Ratio 21 (Normal) Range: 11-26 eGFR If Africn Am 99 mL/min/1.73 (Normal) eGFR If NonAfricn Am 86 mL/min/1.73 (Normal) Creatinine, Serum 0.73 mg/dL (Normal) Range: 0.57-1.00 BUN 15 mg/dL (Normal) Range: 8-27 Glucose, Serum 86 mg/dL (Normal) Range: 65-99 :09 HgA1C , Office (75829) HgA1C , Office 6.0 % (Normal) Range: 4.6 - 7.1 :27 HEPATIC FUNCTION PANEL Comments: PATIENT WAS FASTINGPERFORMED BY: [facility]6[address] [facility] [id number] ([id number]) Bilirubin, Direct 0.09 mg/dL (Normal) Range: 0.00-0.40 :27 LIPID PANEL (03809) Comments: PATIENT WAS FASTINGPERFORMED BY: [facility]6[address] [facility] [id number] LDL/HDL Ratio 1.8 {ratio_units} (Normal) Range: 0.0-3.2 LDL Cholesterol Calc 129 mg/dL (Abnormal) Range: 0-99 VLDL Cholesterol Sumeet 28 mg/dL (Normal) Range: 5-40 HDL Cholesterol 72 mg/dL (Normal) Comments: According to ATP-III Guidelines, HDL-C >59 mg/dL is considered anegative risk factor for CHD. Triglycerides 139 mg/dL (Normal) Range: 0-149 Cholesterol, Total 229 mg/dL (Abnormal) Range: 100-199 :51 Microscopic Examination Comments: PATIENT WAS FASTINGPERFORMED BY: [facility] [id number] Bacteria None seen (Normal) Mucus Threads Present (Normal) Epithelial Cells (non renal) 0-10 {/hpf} (Normal) Range: 0 - 10 RBC 0-3 {/hpf} (Normal) Range: 0 - 3 WBC 0-5 {/hpf} (Normal) Range: 0 - 5 :51 LIPID PANEL (63933) Comments: PATIENT WAS FASTINGPERFORMED BY: [facility] [facility] [id number]; f/u 06/08/12 LDL/HDL Ratio 1.4 {ratio_units} (Normal) Range: 0.0-3.2 LDL Cholesterol Calc 109 mg/dL (Abnormal) Range: 0-99 VLDL Cholesterol Sumeet 36 mg/dL (Normal) Range: 5-40 HDL Cholesterol 78 mg/dL (Normal) Comments: According to ATP-III Guidelines, HDL-C >59 mg/dL is considered anegative risk factor for CHD. Triglycerides 179 mg/dL (Abnormal) Range: 0-149 Cholesterol, Total 223 mg/dL (Abnormal) Range: 100-199 :51 VITAMIN B-12 (CYANOCOBALAMIN) Comments: PATIENT WAS FASTINGPERFORMED BY: [facility] [id number] ([id number]) Vitamin B12 702 pg/mL (Normal) Range: 211-946 :51 Vitamin D Hydroxy (50065) Comments: PATIENT WAS FASTINGPERFORMED BY: [facility] [id number] Vitamin D, 25-Hydroxy 43.0 ng/mL (Normal) Range: 30.0-100.0 Comments: Vitamin D deficiency has been defined by the [place] and an Endocrine Society practice guideline as alevel of serum 25-OH vitamin D less than 20 ng/mL (1,2).The Endocrine Society went on to further define vitamin Dinsufficiency as a level between 21 and 29 ng/mL (2).1. IOM ([place] [employer]). 2010. Dietary reference intakes for calcium and D. [place]: The National Academies Press.2. Hannah MF, Hilda NC, Cindy FREED, et al. Evaluation, treatment, and prevention of vitamin D deficiency: an Endocrine Society clinical practice guideline. JCEM. 2010; 96(7):1911-30. :51 URINALYSIS, W/ MICRO (89988) Comments: PATIENT WAS FASTINGPERFORMED BY: [facility] Fibneb7302 [facility] [id number] Microscopic Examination See below: (Normal) Microscopic Examination MICRON (Normal) Comments: Microscopic follows if indicated. Nitrite, Urine Negative (Normal) Urobilinogen,Semi-Qn 0.2 mg/dL (Normal) Range: 0.0-1.9 Bilirubin Negative (Normal) Occult Blood Negative (Normal) Ketones Negative (Normal) Glucose Negative (Normal) Protein Negative (Normal) WBC Esterase Negative (Normal) Appearance Clear (Normal) Urine-Color Yellow (Normal) pH 7.0 (Normal) Range: 5.0-7.5 Specific [place] 1.019 (Normal) Range: 1.005-1.030 68-Oma-742670:51 METABOLIC PANEL, Comments: PATIENT WAS FASTINGPERFORMED BY: QuintilesHampton Behavioral Health CenterFitmow5703 [facility] [id number] Information: [id number] COMPREHENSIVE (82381) ALT (SGPT) 17 [iU]/L (Normal) Range: 0-40 AST (SGOT) 19 [iU]/L (Normal) Range: 0-40 Alkaline Phosphatase, S 74 [iU]/L (Normal) Range: 25-165 Bilirubin, Total 0.3 mg/dL (Normal) Range: 0.0-1.2 A/G Ratio 2.3 (Normal) Range: 1.1-2.5 Globulin, Total 2.0 g/dL (Normal) Range: 1.5-4.5 Albumin, Serum 4.6 g/dL (Normal) Range: 3.6-4.8 Protein, Total, Serum 6.6 g/dL (Normal) Range: 6.0-8.5 Calcium, Serum 9.5 mg/dL (Normal) Range: 8.6-10.2 Carbon Dioxide, Total 25 mmol/L (Normal) Range: 20-32 Chloride, Serum 102 mmol/L (Normal) Range: 97-108 Potassium, Serum 4.6 mmol/L (Normal) Range: 3.5-5.2 Sodium, Serum 139 mmol/L (Normal) Range: 134-144 BUN/Creatinine Ratio 19 (Normal) Range: 11-26 eGFR If Africn Am 96 mL/min/1.73 (Normal) eGFR If NonAfricn Am 83 mL/min/1.73 (Normal) Creatinine, Serum 0.75 mg/dL (Normal) Range: 0.57-1.00 BUN 14 mg/dL (Normal) Range: 8-27 Glucose, Serum 95 mg/dL (Normal) Range: 65-99 02-Vgd-971572:51 TSH (72900) Comments: PATIENT WAS FASTINGPERFORMED BY: SensopiaCoHampton Behavioral Health CenterZjufsn1666 [facility] [id number] TSH 1.860 {uIU/mL} (Normal) Range: 0.450-4.500 63-Ckb-629800:31 Blood Glucose , Office (88120) Blood Glucose , Office 119 (Normal) 83-Zms-166284:22 FECAL OCCULT- Tubes sent home (85032) FECAL OCCULT HGB ASSAY, QUAL, 1-3 SIMULTANEOU Negative (Normal) :56 CBC WITH MANUAL DIFF Comments: PATIENT WAS FASTINGPERFORMED BY: LabCoHampton Behavioral Health CenterXlyxky8569 [facility] [id number] Information: [id number] (47560) Immature Grans (Abs) 0.0 {x10E3/uL} (Normal) Range: 0.0-0.1 Immature Granulocytes 0 % (Normal) Range: 0-2 Baso (Absolute) 0.0 {x10E3/uL} (Normal) Range: 0.0-0.2 Eos (Absolute) 0.2 {x10E3/uL} (Normal) Range: 0.0-0.4 Monocytes(Absolute) 0.5 {x10E3/uL} (Normal) Range: 0.1-1.0 Lymphs (Absolute) 1.9 {x10E3/uL} (Normal) Range: 0.7-4.5 Neutrophils (Absolute) 2.5 {x10E3/uL} (Normal) Range: 1.8-7.8 Basos 0 % (Normal) Range: 0-3 Eos 3 % (Normal) Range: 0-7 Monocytes 10 % (Normal) Range: 4-13 Lymphs 37 % (Normal) Range: 14-46 Neutrophils 50 % (Normal) Range: 40-74 Platelets 299 {x10E3/uL} (Normal) Range: 140-415 RDW 16.0 % (Abnormal) Range: 12.3-15.4 Comments: Please note reference interval change MCHC 31.7 g/dL (Normal) Range: 31.5-35.7 Comments: Please note reference interval change MCH 26.4 pg (Abnormal) Range: 26.6-33.0 Comments: Please note reference interval change MCV 83 fL (Normal) Range: 79-97 Comments: Please note reference interval change Hematocrit 37.5 % (Normal) Range: 34.0-46.6 Comments: Please note reference interval change Hemoglobin 11.9 g/dL (Normal) Range: 11.1-15.9 Comments: Please note reference interval change RBC 4.51 {x10E6/uL} (Normal) Range: 3.77-5.28 Comments: Please note reference interval change WBC 5.0 {x10E3/uL} (Normal) Range: 4.0-10.5 :56 RETICULOCYTE COUNT [facility] (67128) Comments: PATIENT WAS FASTINGPERFORMED BY: Quintiles Nsrvmd2350 [facility] [id number] Reticulocyte Count 0.9 % (Normal) Range: 0.5-3.0 :56 IRON BINDING CAPACITY (TIBC) Comments: PATIENT WAS FASTINGPERFORMED BY: [employer]iles Qltfxb7759 [facility] [id number] ([id number]) Iron Saturation 12 % (Abnormal) Range: 15-55 Iron, Serum 47 ug/dL (Normal) Range: 35-155 UIBC 342 ug/dL (Normal) Range: 150-375 Iron Bind.Cap.(TIBC) 389 ug/dL (Normal) Range: 250-450 :56 FERRITIN (65249) Comments: PATIENT WAS FASTINGPERFORMED BY: Quintiles Gxrnoj5496 [facility] [id number] Ferritin, Serum 10 ng/mL (Abnormal) Range: 13-150 34-Xrq-342707:13 HgA1C , Office (46996) HgA1C , Office 5.8 % (Normal) Range: 4.6 - 7.1 75-Xut-416769:13 Blood Glucose , Office (36720) Blood Glucose , Office 116 (Normal) 8-Ilh-806446:00 CBC WITH MANUAL DIFF Comments: PATIENT WAS FASTINGPERFORMED BY: QuintilesHampton Behavioral Health CenterLrrbwt7892 [facility] [id number] Information: [id number] (17320) Immature Grans (Abs) 0.0 {x10E3/uL} (Normal) Range: 0.0-0.1 Immature Granulocytes 0 % (Normal) Range: 0-2 Baso (Absolute) 0.0 {x10E3/uL} (Normal) Range: 0.0-0.2 Eos (Absolute) 0.1 {x10E3/uL} (Normal) Range: 0.0-0.4 Monocytes(Absolute) 0.4 {x10E3/uL} (Normal) Range: 0.1-1.0 Lymphs (Absolute) 1.5 {x10E3/uL} (Normal) Range: 0.7-4.5 Neutrophils (Absolute) 1.7 {x10E3/uL} (Abnormal) Range: 1.8-7.8 Basos 0 % (Normal) Range: 0-3 Eos 3 % (Normal) Range: 0-7 Monocytes 10 % (Normal) Range: 4-13 Lymphs 41 % (Normal) Range: 14-46 Neutrophils 46 % (Normal) Range: 40-74 Platelets 273 {x10E3/uL} (Normal) Range: 140-415 RDW 15.2 % (Abnormal) Range: 11.7-15.0 MCHC 32.1 g/dL (Normal) Range: 32.0-36.0 MCH 27.9 pg (Normal) Range: 27.0-34.0 MCV 87 fL (Normal) Range: 80-98 Hematocrit 34.6 % (Normal) Range: 34.0-44.0 Hemoglobin 11.1 g/dL (Abnormal) Range: 11.5-15.0 RBC 3.98 {x10E6/uL} (Normal) Range: 3.80-5.10 WBC 3.6 {x10E3/uL} (Abnormal) Range: 4.0-10.5 :00 MICROALBUMIN: CREATININE RATIO Comments: PATIENT WAS FASTINGPERFORMED BY: [employer] Blteoz9031 [facility] [id number] ([id number]) AND (69897) Microalb/Creat Ratio 3.8 {mg/g_creat} (Normal) Range: 0.0-30.0 Creatinine, Urine 200.2 mg/dL (Normal) Range: 15.0-278.0 Microalbumin, Urine 7.7 ug/mL (Normal) Range: 0.0-17.0 2-Ujo-037527:00 METABOLIC PANEL, COMPREHENSIVE Comments: PATIENT WAS FASTINGPERFORMED BY: BERE Involvio70 [facility] [id number] (07041) ALT (SGPT) 12 [iU]/L (Normal) Range: 0-40 AST (SGOT) 19 [iU]/L (Normal) Range: 0-40 Alkaline Phosphatase, S 69 [iU]/L (Normal) Range: 25-165 Bilirubin, Total 0.4 mg/dL (Normal) Range: 0.0-1.2 A/G Ratio 2.1 (Normal) Range: 1.1-2.5 Globulin, Total 2.0 g/dL (Normal) Range: 1.5-4.5 Albumin, Serum 4.2 g/dL (Normal) Range: 3.6-4.8 Protein, Total, Serum 6.2 g/dL (Normal) Range: 6.0-8.5 Calcium, Serum 9.0 mg/dL (Normal) Range: 8.6-10.2 Carbon Dioxide, Total 23 mmol/L (Normal) Range: 20-32 Chloride, Serum 106 mmol/L (Normal) Range: 97-108 Potassium, Serum 4.2 mmol/L (Normal) Range: 3.5-5.2 Sodium, Serum 141 mmol/L (Normal) Range: 134-144 BUN/Creatinine Ratio 23 (Normal) Range: 11-26 eGFR If Africn Am 106 mL/min/1.73 (Normal) Comments: Note: A persistent eGFR <60 mL/min/1.73 m2 (3 months or more) mayindicate chronic kidney disease. An eGFR >59 mL/min/1.73 m2 with anelevated urine protein also may indicate chronic kidney disease.Calculated using CKD-EPI formula. eGFR If NonAfricn Am 92 mL/min/1.73 (Normal) Creatinine, Serum 0.66 mg/dL (Normal) Range: 0.57-1.00 BUN 15 mg/dL (Normal) Range: 8-27 Glucose, Serum 96 mg/dL (Normal) Range: 65-99 9-Uwn-648716:00 LIPID PANEL (78973) Comments: PATIENT WAS FASTINGPERFORMED BY: LabCoHampton Behavioral Health CenterXkajfk8446 [facility] [id number] LDL/HDL Ratio 1.3 {ratio_units} (Normal) Range: 0.0-3.2 LDL Cholesterol Calc 99 mg/dL (Normal) Range: 0-99 VLDL Cholesterol Sumeet 26 mg/dL (Normal) Range: 5-40 HDL Cholesterol 75 mg/dL (Normal) Comments: According to ATP-III Guidelines, HDL-C >59 mg/dL is considered anegative risk factor for CHD. Triglycerides 129 mg/dL (Normal) Range: 0-149 Cholesterol, Total 200 mg/dL (Abnormal) Range: 100-199 14-Uvu-408845:12 HgA1C , Office (47604) HgA1C , Office 6.1 % (Normal) Range: 4.6 - 7.1 85-Xjo-998592:12 Blood Glucose , Office (73907) Blood Glucose , Office 100 (Normal) :46 Anaerobic and Aerobic Comments: PERFORMED BY: [facility]6370 [facility] [id number] Information: SRC:FL LEFT ANKLE Culture Result 1 NG36 (Normal) Comments: No growth in 36 - 48 hours. Aerobic Culture Final report (Normal) Result 1 NANG72 (Normal) Comments: No anaerobic growth in 72 hours. Anaerobic Culture Final report (Normal) 26-Pbq-735153:23 CHEST, PA AND LATERAL Radiology Report See Note (Normal) Comments: CLINICAL:Female, 65 years old. The patient has a history of bilateral breastcancer. X-RAY EXAMINATION - CHEST TECHNIQUE:PA and lateral views of the chest. COMPARISON:Comparison is made with prior exam ination dated November 23, 2007. FINDINGS: The lungs are hyper expanded, with flattening of the hemidiaphragms.Thereis no demonstrated pulmonary parenchymal abnormality. There is nodemonstrated pleural abnormality. The heart is normal in size and morphology. Normal mediastinum and ester. Normal visualized pulmonary arteries. There is atherosclerotictortuosityof the aortic arch and descending thoracic aorta. There are diffuse degenerative changes of the visualized thoracic spine. IMPRESSION:Normal x-ray examination of the chest.Interval stability as compared to the above noted prior comparison study. Dictated on 02/16/11 1335 by Rivas ADHIKARI,GilrieleTranscribed on 02/17/11 1036 by ITS IMPORTSign by Yousif Hathaway MD on 02/17/11 1037 Sign by: _ Yousif Hathaway MD :57 LIPID PANEL (58613) Comments: PATIENT WAS FASTINGPERFORMED BY: [facility]6370 [facility] [id number] LDL/HDL Ratio 1.3 {ratio_units} (Normal) Range: 0.0-3.2 LDL Cholesterol Calc 113 mg/dL (Abnormal) Range: 0-99 VLDL Cholesterol Sumeet 23 mg/dL (Normal) Range: 5-40 HDL Cholesterol 90 mg/dL (Normal) Comments: According to ATP-III Guidelines, HDL-C >59 mg/dL is considered anegative risk factor for CHD. Cholesterol, Total 226 mg/dL (Abnormal) Range: 100-199 Triglycerides 113 mg/dL (Normal) Range: 0-149 :57 METABOLIC PANEL, COMPREHENSIVE Comments: PATIENT WAS FASTINGPERFORMED BY: LabCloudDockHampton Behavioral Health CenterVqizhx1377 [facility] [id number] (47519) ALT (SGPT) 18 [iU]/L (Normal) Range: 0-40 Alkaline Phosphatase, S 88 [iU]/L (Normal) Range: 25-165 AST (SGOT) 20 [iU]/L (Normal) Range: 0-40 Bilirubin, Total 0.4 mg/dL (Normal) Range: 0.0-1.2 A/G Ratio 2.3 (Normal) Range: 1.1-2.5 Globulin, Total 2.0 g/dL (Normal) Range: 1.5-4.5 Albumin, Serum 4.6 g/dL (Normal) Range: 3.6-4.8 Protein, Total, Serum 6.6 g/dL (Normal) Range: 6.0-8.5 Calcium, Serum 9.5 mg/dL (Normal) Range: 8.6-10.2 Carbon Dioxide, Total 25 mmol/L (Normal) Range: 20-32 Chloride, Serum 103 mmol/L (Normal) Range: 97-108 Potassium, Serum 4.4 mmol/L (Normal) Range: 3.5-5.2 Sodium, Serum 142 mmol/L (Normal) Range: 135-145 BUN/Creatinine Ratio 14 (Normal) Range: 11-26 eGFR If Africn Am 88 mL/min/1.73 (Normal) Comments: Note: A persistent eGFR <60 mL/min/1.73 m2 (3 months or more) mayindicate chronic kidney disease. An eGFR >59 mL/min/1.73 m2 with anelevated urine protein also may indicate chronic kidney disease.Calculated using CKD-EPI formula. eGFR If NonAfricn Am 76 mL/min/1.73 (Normal) Creatinine, Serum 0.81 mg/dL (Normal) Range: 0.57-1.00 BUN 11 mg/dL (Normal) Range: 8-27 Glucose, Serum 98 mg/dL (Normal) Range: 65-99 18-Ggq-841472:57 CBC WITH MANUAL DIFF Comments: PATIENT WAS FASTINGPERFORMED BY: [facility]Asc[facility] Hospital6370 [facility] [id number] Information: [id number] (34344) Immature Grans (Abs) 0.0 {x10E3/uL} (Normal) Range: 0.0-0.1 Baso (Absolute) 0.0 {x10E3/uL} (Normal) Range: 0.0-0.2 Immature Granulocytes 0 % (Normal) Range: 0-2 Comments: Please note reference interval change Eos (Absolute) 0.1 {x10E3/uL} (Normal) Range: 0.0-0.4 Monocytes(Absolute) 0.6 {x10E3/uL} (Normal) Range: 0.1-1.0 Lymphs (Absolute) 2.0 {x10E3/uL} (Normal) Range: 0.7-4.5 Neutrophils (Absolute) 2.8 {x10E3/uL} (Normal) Range: 1.8-7.8 Basos 0 % (Normal) Range: 0-3 Eos 2 % (Normal) Range: 0-7 Monocytes 10 % (Normal) Range: 4-13 Lymphs 36 % (Normal) Range: 14-46 Neutrophils 52 % (Normal) Range: 40-74 Platelets 309 {x10E3/uL} (Normal) Range: 140-415 RDW 15.9 % (Abnormal) Range: 11.7-15.0 MCHC 31.4 g/dL (Abnormal) Range: 32.0-36.0 MCH 25.8 pg (Abnormal) Range: 27.0-34.0 MCV 82 fL (Normal) Range: 80-98 Hematocrit 36.9 % (Normal) Range: 34.0-44.0 Hemoglobin 11.6 g/dL (Normal) Range: 11.5-15.0 RBC 4.49 {x10E6/uL} (Normal) Range: 3.80-5.10 WBC 5.5 {x10E3/uL} (Normal) Range: 4.0-10.5 :57 HgA1C , Office (64744) HgA1C , Office 5.9 % (Normal) Range: 4.6 - 7.1 :57 Blood Glucose , Office (70721) Blood Glucose , Office 94 (Normal) :46 DEXA BONE DENSITY STUDY (HP) Radiology Report See Note (Normal) Comments: CLINICAL:Female, 65 years old. Postmenopausal with past history of steroid use,family history and bone fracture. EXAMINATION:DUAL ENERGY X-RAY ABSORPTIOMETRY / DEXA. TECHNIQUE:Bone Mineral Density (BMD ) measurements of lumbar spine and bilateralhipswere obtained using a [employer] Digital scanner.. COMPARISON:Prior bone density of November 27, 2008. FINDINGS: Lumbar Spine (L1-L4): g/cm2 (1.077) / T-score (-0.9) / Z-score (0.5)Left Femur Total: g/cm2 (0.916) / T-score (-0.7) / Z-score (0.3)Right Femur Total: g/cm2 (0.907) / T-score (- 0.8) / Z-score (0.2) Additional Abnormal T-Sco res: None. The bone densities on the most recent examination were: Lumbar Spine (L1-L4): 1.031 g/cm? which represents an improvement of 4.5%.Left Femur Total: 0.849 g/cm? which represents no signific ant change. IMPRESSION:1. The lumbar bone density remains within normal limits but has improvedby 4.5%.2. The left femoral bone density remains normal and has notsignificantlychanged. Reference Inform ation:The T-score is the number of standard deviations above or below thestandard which is normal for young adults at their peak bone mineraldensity. The World Health Organization (WHO) interprets the T -scores asfollows: Above -1 Normal bone densityBetween -1 and -2.5 OsteopeniaEqual to / or below -2.5 Osteoporosis As a practical clinical guideline, osteopenia may be graded as follows:Mi ld -1 through -1.5Moderate -1.6 through -2.0Severe -2.1 through -2.4 The Z-score is the number of standard deviations above or below age- matchedcontrols. A Z-score of less than -1.5 wou ld be considered abnormal. References:1. NIH Osteoporosis and Related Bone Diseases http://www.osteo.org2. International Society for Clinical Densitometry http://www.iscd.org3. National Osteoporosis Foundation http://www.nof.org Dictated on 11/27/10 1402 by Erna MeridaTranscribed on 11/28/102030 by ITS IMPORTSign by Erna Merida on 11/28/102031 Sign by: Erna Merida 50-Gbu-421668:06 Vitamin D Hydroxy (91721) Comments: PATIENT WAS FASTINGPERFORMED BY: [employer]6370 [address] [facility] [id number] Vitamin D, 25-Hydroxy 51.1 ng/mL (Normal) Range: 32.0-100.0 Comments: Recent studies consider the lower limit of 32.0 ng/mL to be athreshold for optimal health.Fred VILLARREAL. J Nutr. 2004;135(2):317-22. 03-Qye-991137:06 LIPID PANEL (76471) Comments: PATIENT WAS FASTINGPERFORMED BY: [employer]6370 [address] [facility] [id number] LDL Cholesterol Calc 66 mg/dL (Normal) Range: 0-99 LDL/HDL Ratio 0.8 {ratio_units} (Normal) Range: 0.0-3.2 VLDL Cholesterol Sumeet 20 mg/dL (Normal) Range: 5-40 HDL Cholesterol 88 mg/dL (Normal) Comments: According to ATP-III Guidelines, HDL-C >59 mg/dL is considered anegative risk factor for CHD. Cholesterol, Total 174 mg/dL (Normal) Range: 100-199 Triglycerides 99 mg/dL (Normal) Range: 0-149 28-Epy-690568:06 CBC WITH MANUAL DIFF Comments: PATIENT WAS FASTINGPERFORMED BY: LabCoHampton Behavioral Health CenterOffnzb9380 [facility] [id number] Information: [id number] (66504) Immature Grans (Abs) 0.0 {x10E3/uL} (Normal) Range: 0.0-0.1 Immature Granulocytes 0 % (Normal) Range: 0-1 Baso (Absolute) 0.0 {x10E3/uL} (Normal) Range: 0.0-0.2 Eos (Absolute) 0.1 {x10E3/uL} (Normal) Range: 0.0-0.4 Lymphs (Absolute) 1.9 {x10E3/uL} (Normal) Range: 0.7-4.5 Monocytes(Absolute) 0.5 {x10E3/uL} (Normal) Range: 0.1-1.0 Neutrophils (Absolute) 2.3 {x10E3/uL} (Normal) Range: 1.8-7.8 Basos 0 % (Normal) Range: 0-3 Eos 3 % (Normal) Range: 0-7 Lymphs 39 % (Normal) Range: 14-46 Monocytes 10 % (Normal) Range: 4-13 Neutrophils 48 % (Normal) Range: 40-74 Platelets 246 {x10E3/uL} (Normal) Range: 140-415 RDW 13.8 % (Normal) Range: 11.7-15.0 MCH 29.7 pg (Normal) Range: 27.0-34.0 MCHC 33.2 g/dL (Normal) Range: 32.0-36.0 MCV 90 fL (Normal) Range: 80-98 Hematocrit 37.7 % (Normal) Range: 34.0-44.0 Hemoglobin 12.5 g/dL (Normal) Range: 11.5-15.0 RBC 4.21 {x10E6/uL} (Normal) Range: 3.80-5.10 WBC 4.8 {x10E3/uL} (Normal) Range: 4.0-10.5 24-Mgk-059429:06 METABOLIC PANEL, COMPREHENSIVE Comments: PATIENT WAS FASTINGPERFORMED BY: [employer]6370 [facility] [id number] (15135) ALT (SGPT) 25 [iU]/L (Normal) Range: 0-40 A/G Ratio 2.3 (Normal) Range: 1.1-2.5 Alkaline Phosphatase, S 78 [iU]/L (Normal) Range: 25-165 AST (SGOT) 25 [iU]/L (Normal) Range: 0-40 Bilirubin, Total 0.4 mg/dL (Normal) Range: 0.0-1.2 Albumin, Serum 4.3 g/dL (Normal) Range: 3.6-4.8 Calcium, Serum 9.1 mg/dL (Normal) Range: 8.6-10.2 Globulin, Total 1.9 g/dL (Normal) Range: 1.5-4.5 Protein, Total, Serum 6.2 g/dL (Normal) Range: 6.0-8.5 BUN/Creatinine Ratio 17 (Normal) Range: 11-26 Carbon Dioxide, Total 27 mmol/L (Normal) Range: 20-32 Chloride, Serum 102 mmol/L (Normal) Range: 97-108 Potassium, Serum 4.0 mmol/L (Normal) Range: 3.5-5.2 Sodium, Serum 141 mmol/L (Normal) Range: 135-145 Creatinine, Serum 0.75 mg/dL (Normal) Range: 0.57-1.00 eGFR >59 mL/min/1.73 (Normal) eGFR AfricanAmerican >59 mL/min/1.73 Comments: Note: Persistent reduction for 3 months or more in an eGFR<60 mL/min/1.73 m2 defines CKD. Patients with eGFR values>/=60 mL/min/1.73 m2 may also have CKD if evidence of persistentproteinuria is (Normal) present. Additional information may be found atwww.kdoqi.org. BUN 13 mg/dL (Normal) Range: 8-27 Glucose, Serum 85 mg/dL (Normal) Range: 65-99 38-Xkz-158721:06 MICROALBUMIN: CREATININE RATIO Comments: PATIENT WAS FASTINGPERFORMED BY: [employer] Rbpcbo4108 [facility] [id number] (46743) AND (82931) Creatinine, Urine 220.5 mg/dL (Normal) Range: 15.0-278.0 Microalb/Creat Ratio 5.4 {mg/g_creat} (Normal) Range: 0.0-30.0 Microalbumin, Urine 12.0 ug/mL (Normal) Range: 0.0-17.0 :10 HgA1C , Office (03001) HgA1C , Office 5.8 % (Normal) Range: 4.6 - 7.1 26-Bzi-142580:10 Blood Glucose , Office (96302) Blood Glucose , Office 107 (Normal) 3-Rof-243781:23 Microscopic Examination Comments: PATIENT NOT FASTINGPERFORMED BY: [employer] Hpniiw6318 [facility] [id number] Bacteria Few (Normal) Mucus Threads Present (Normal) Epithelial Cells (non renal) 0-10 {/hpf} (Normal) Range: 0 - 10 RBC 0-3 {/hpf} (Normal) Range: 0 - 3 WBC 0-5 {/hpf} (Normal) Range: 0 - 5 8-Bck-947422:23 VITAMIN B-12 (CYANOCOBALAMIN) Comments: PATIENT NOT FASTINGPERFORMED BY: [employer] Xpdnfa2643 [address] [facility] [id number] (43862) Vitamin B12 685 pg/mL (Normal) Range: 211-946 0-Mxb-257447:23 URINALYSIS, W/ MICRO (04898) Comments: PATIENT NOT FASTINGPERFORMED BY: [employer] [facility] [id number] Microscopic Examination See below: (Normal) Microscopic Examination MICRON (Normal) Comments: Microscopic follows if indicated. Nitrite, Urine Negative (Normal) Urobilinogen,Semi-Qn 0.2 mg/dL (Normal) Range: 0.0-1.9 Bilirubin Negative (Normal) Appearance Clear (Normal) Glucose Negative (Normal) Ketones Negative (Normal) Occult Blood Negative (Normal) Protein Negative (Normal) WBC Esterase Negative (Normal) pH 6.5 (Normal) Range: 5.0-7.5 Urine-Color Yellow (Normal) Specific [place] 1.020 (Normal) Range: 1.005-1.030 :23 TSH (12872) Comments: PATIENT NOT FASTINGPERFORMED BY: [facility]6370 [facility] [id number] TSH 1.630 {uIU/mL} (Normal) Range: 0.450-4.500 :23 CBC WITH MANUAL DIFF Comments: PATIENT NOT FASTINGPERFORMED BY: [place] 1968370 [facility] [id number] Information: [id number] (41339) Immature Grans (Abs) 0.0 {x10E3/uL} (Normal) Range: 0.0-0.1 Immature Granulocytes 0 % (Normal) Range: 0-1 Baso (Absolute) 0.0 {x10E3/uL} (Normal) Range: 0.0-0.2 Eos (Absolute) 0.1 {x10E3/uL} (Normal) Range: 0.0-0.4 Lymphs (Absolute) 1.6 {x10E3/uL} (Normal) Range: 0.7-4.5 Monocytes(Absolute) 0.4 {x10E3/uL} (Normal) Range: 0.1-1.0 Basos 0 % (Normal) Range: 0-3 Eos 2 % (Normal) Range: 0-7 Neutrophils (Absolute) 3.2 {x10E3/uL} (Normal) Range: 1.8-7.8 Lymphs 30 % (Normal) Range: 14-46 Monocytes 8 % (Normal) Range: 4-13 Neutrophils 60 % (Normal) Range: 40-74 Platelets 252 {x10E3/uL} (Normal) Range: 140-415 MCH 30.3 pg (Normal) Range: 27.0-34.0 MCHC 33.1 g/dL (Normal) Range: 32.0-36.0 RDW 13.2 % (Normal) Range: 11.7-15.0 Hematocrit 35.7 % (Normal) Range: 34.0-44.0 MCV 92 fL (Normal) Range: 80-98 Hemoglobin 11.8 g/dL (Normal) Range: 11.5-15.0 RBC 3.89 {x10E6/uL} (Normal) Range: 3.80-5.10 WBC 5.3 {x10E3/uL} (Normal) Range: 4.0-10.5 :25 HgA1C , Office (84529) HgA1C , Office 5.8 % (Normal) Range: 4.6 - 7.1 56-Hwn-788167:25 Blood Glucose , Office (68990) Blood Glucose , Office 106 (Normal) :35 Rapid Strep Test, Office (43286) Rapid Strep Test, Office Negative (Normal) :41 HEPATIC FUNCTION PANEL Comments: PATIENT WAS FASTINGPERFORMED BY: [facility] [id number] [facility] [id number] Information: [id number] (97999) ALT (SGPT) 19 [iU]/L (Normal) Range: 0-40 Alkaline Phosphatase, S 63 [iU]/L (Normal) Range: 25-165 AST (SGOT) 22 [iU]/L (Normal) Range: 0-40 Albumin, Serum 4.5 g/dL (Normal) Range: 3.6-4.8 Bilirubin, Direct 0.13 mg/dL (Normal) Range: 0.00-0.40 Bilirubin, Total 0.4 mg/dL (Normal) Range: 0.0-1.2 Protein, Total, Serum 6.2 g/dL (Normal) Range: 6.0-8.5 :41 LIPID PANEL (68198) Comments: PATIENT WAS FASTINGPERFORMED BY: [employer] [id number] [facility] [id number] LDL/HDL Ratio 1.1 {ratio_units} (Normal) Range: 0.0-3.2 HDL Cholesterol 66 mg/dL (Normal) Comments: According to ATP-III Guidelines, HDL-C >59 mg/dL is considered anegative risk factor for CHD. LDL Cholesterol Calc 75 mg/dL (Normal) Range: 0-99 Triglycerides 78 mg/dL (Normal) Range: 0-149 VLDL Cholesterol [place] 16 mg/dL (Normal) Range: 5-40 Cholesterol, Total 157 mg/dL (Normal) Range: 100-199 [id number]:41 Vitamin D Hydroxy (87867) Comments: PATIENT WAS FASTINGPERFORMED BY: LabCoHam[facility] [id number] [facility] [id number] Vitamin D, 25-Hydroxy 46.3 ng/mL (Normal) Range: 32.0-100.0 Comments: Recent studies consider the lower limit of 32.0 ng/mL to be athreshold for optimal health.Fred VILLARREAL. J Nutr. 2004;135(2):317-22. :54 HgA1C , Office (60868) HgA1C , Office 6.2 % (Normal) Range: 4.6 - 7.1 :54 Blood Glucose , Office (87277) Blood Glucose , Office 91 (Normal) [id number] CBCD,SMEAR DIFF RED CELL MORPH SeeNote {NORMAL} (Normal) Comments: Result: NORM C+C ABSOLUTE NEUT 3.2 3/uL (Normal) Range: 2.0-7.7 CELLS COUNTED 100 (Normal) LYMPH 32 % (Normal) Range: 19-41 MONOCYTE 6 % (Normal) Range: 0-10 PLT EST SeeNote (Normal) Comments: Result: ADEQUATE SEGS 62 % (Normal) Range: 47-70 HCT 37.8 % (Normal) Range: 37-47 HGB 12.8 g/dL (Normal) Range: 12.0-16.0 MCH 31.4 pg (Normal) Range: 27.0-32.0 MCHC 34.0 g/dL (Normal) Range: 32-36 MCV 92.4 fL (Normal) Range: 81-99 PLT 219 K/mm3 (Normal) Range: 150-450 RBC 4.08 {M/mm3} (Abnormal) Range: 4.2-5.4 RDW 13.4 % (Normal) Range: 11.6-14.6 WBC 5.4 K/mm3 (Normal) Range: 4.4-11.0 :34 COMP METABOLIC A/G 1.3 {RATIO} (Normal) Range: 0.9-2.4 ALK P 65 U/L (Normal) Range: 50-136 ALT 28 U/L (Normal) Range: 12-78 AST 15 U/L (Normal) Range: 15-37 CA 8.4 mg/dL (Abnormal) Range: 8.5-10.1 CL 107 mmol/L (Normal) Range: 98-107 CO2 28.0 mmol/L (Normal) Range: 21.0-32.0 GAP 7 (Normal) Range: 5-15 K 4.0 mmol/L (Normal) Range: 3.5-5.1 NA 142 mmol/L (Normal) Range: 136-145 T BILI 0.40 mg/dL (Normal) Range: 0.00-1.00 ALB 3.6 g/dL (Normal) Range: 3.4-5.0 BUN 10 mg/dL (Normal) Range: 7-18 BUN/CRE 12.5 {RATIO} (Normal) Range: 10-20 CREAT,SERUM 0.8 mg/dL (Normal) Range: 0.6-1.0 EST GFR 77 mL/min (Normal) EST GFR - AA 93 mL/min (Normal) GLOB 2.8 g/dL (Normal) Range: 2.7-4.2 T PROT 6.4 g/dL (Normal) Range: 6.4-8.2 GLU 91 mg/dL (Normal) Range: 70-110 87-Iuh-843494:34 D BILI 0.06 mg/dL (Normal) Range: 0.00-0.30 12-Cfe-836784:34 LIPID HDL 60 mg/dL (Normal) Comments: Reference RangeHDL <40 mg/dL Low HDL CholesterolHDL >or= 60 mg/dL High HDL Cholesterol LDL 131 mg/dL (Abnormal) Range: 0-130 TRIG 158 mg/dL (Normal) Comments: Serum Triglycerides Reference IntervalNormal <150 mg/dLBorderline high 150 - 199 mg/dLHigh 200 - 499 mg/ dLVery High > or = 500 mg/dL VLDL 32 mg/dL (Normal) Range: 5-40 CHOL 223 mg/dL (Abnormal) Comments: <200 mg/dL Vfpemncmy996-345 mg/dL Borderline>240 mg/dL High Risk 28-Lur-370611:34 MICROALB:CRE UR MALB:CREAT 5.4 {mg/g_CRE} (Normal) MICROALBUMIN,UR 10.9 mg/L (Normal) UR CREAT 199.6 mg/dL (Normal) 07-Ugw-364953:34 VIT D,25 22552 36.2 ng/mL (Normal) Range: 32.0-100.0 Comments: Recent studies consider the lower limit of 32.0 ng/mL to adan threshold for optimal health.Fred VILLARREAL. J Nutr. 2004;135(2):317-22.Performed at: - [facility] [address] [place], [place] [id number] Director: Roseann Carter MD 3-Thr-719449:28 HgA1C , Office (82600) HgA1C , Office 5.9 % (Normal) Range: 4.6 - 7.1 7-Ocb-654828:28 Blood Glucose , Office (09960) Blood Glucose , Office 103 (Normal) 26-Zqm-160869:07 LIPID CHOL 205 mg/dL (Abnormal) Comments: <200 mg/dL Drspwvjns126-696 mg/dL Borderline>240 mg/dL High Risk HDL 76 mg/dL (Normal) Comments: Reference RangeHDL <40 mg/dL Low HDL CholesterolHDL >or= 60 mg/dL High HDL Cholesterol LDL 105 mg/dL (Normal) Range: 0-130 TRIG 121 mg/dL (Normal) Comments: Serum Triglycerides Reference IntervalNormal <150 mg/dLBorderline high 150 - 199 mg/dLHigh 200 - 499 mg/ dLVery High > or = 500 mg/dL VLDL 24 mg/dL (Normal) Range: 5-40 39-Qkl-621972:07 LIVER ALB 3.9 g/dL (Normal) Range: 3.4-5.0 ALK P 72 U/L (Normal) Range: 50-136 ALT 29 U/L (Normal) Range: 12-78 AST 15 U/L (Normal) Range: 15-37 D BILI 0.09 mg/dL (Normal) Range: 0.00-0.30 T BILI 0.40 mg/dL (Normal) Range: 0.00-1.00 T PROT 6.9 g/dL (Normal) Range: 6.4-8.2 01-Mfb-413137:27 Blood Glucose , Office (63982) Blood Glucose , Office 97 (Normal) 35-Ads-063041:26 HgA1C , Office (75965) HgA1C , Office 5.6 % (Normal) Range: 4.6 - 7.1 29-Adk-300839:48 CBCD,SMEAR DIFF CELLS COUNTED 100 (Normal) EOS 3 % (Normal) Range: 0-5 HCT 40.2 % (Normal) Range: 37-47 HGB 13.6 g/dL (Normal) Range: 12.0-16.0 LYMPH 21 % (Normal) Range: 19-41 MCH 30.8 pg (Normal) Range: 27.0-32.0 MCHC 33.8 g/dL (Normal) Range: 32-36 MCV 91.0 fL (Normal) Range: 81-99 MONOCYTE 8 % (Normal) Range: 0-10 PLT 258 K/mm3 (Normal) Range: 150-450 PLT EST SeeNote (Normal) Comments: Result: ADEQUATE RBC 4.42 {M/mm3} (Normal) Range: 4.2-5.4 RDW 12.9 % (Normal) Range: 11.6-14.6 RED CELL MORPH SeeNote {NORMAL} (Normal) Comments: Result: NORM C+C SEGS 68 % (Normal) Range: 47-70 WBC 5.3 K/mm3 (Normal) Range: 4.4-11.0 :48 COMP METABOLIC A/G 1.2 {RATIO} (Normal) Range: 0.9-2.4 ALB 3.8 g/dL (Normal) Range: 3.4-5.0 ALK P 76 U/L (Normal) Range: 50-136 ALT 42 U/L (Normal) Range: 30-65 AST 22 U/L (Normal) Range: 15-37 BUN 12 mg/dL (Normal) Range: 7-18 BUN/CRE 17.1 {RATIO} (Normal) Range: 10-20 CA 8.8 mg/dL (Normal) Range: 8.5-10.1 CL 103 mmol/L (Normal) Range: 98-107 CO2 28.0 mmol/L (Normal) Range: 21.0-32.0 CREAT,SERUM 0.7 mg/dL (Normal) Range: 0.6-1.0 EST GFR 90 mL/min (Normal) EST GFR - AA 109 mL/min (Normal) GAP 6 (Normal) Range: 5-15 GLOB 3.3 g/dL (Normal) Range: 2.7-4.2 GLU 93 mg/dL (Normal) Range: 70-110 K 3.9 mmol/L (Normal) Range: 3.5-5.1 NA 137 mmol/L (Normal) Range: 136-145 T BILI 0.40 mg/dL (Normal) Range: 0.00-1.00 T PROT 7.1 g/dL (Normal) Range: 6.4-8.2 :48 LIPID CHOL 232 mg/dL (Abnormal) Comments: <200 mg/dL Desirable 200-240 mg/dL Borderline >240 mg/dL High Risk HDL 61 mg/dL (Normal) Comments: Reference Range HDL <40 mg/dL Low HDL Cholesterol HDL >or= 60 mg/dL High HDL Cholesterol LDL 129 mg/dL (Normal) Range: 0-130 TRIG 212 mg/dL (Abnormal) Comments: Serum Triglycerides Reference Interval Normal <150 mg/dL Borderline high 150 - 199 mg/dL High 200 - 499 mg/dL Very High > or = 500 mg/dL VLDL 42 mg/dL (Abnormal) Range: 5-40 :48 MICROALB:CRE UR MALB:CREAT 5.5 {mg/g_CRE} (Normal) MICROALBUMIN,UR 9.5 mg/L (Normal) UR CREAT 170.9 mg/dL (Normal) :48 PRO TIME INR 1.0 (Normal) PROTIME 10.3 s (Normal) Range: 9.1-11.7 :48 PTT 27.6 s (Normal) Range: 25.2-36.2 :48 TSH 2.06 {uIU/mL} (Normal) Range: 0.358-3.74 :58 HgA1C , Office (03537) HgA1C , Office 5.6 % (Normal) Range: 4.6 - 7.1 :58 Blood Glucose , Office (11576) Blood Glucose , Office 110 (Normal) :11 COMP METABOLIC A/G 1.4 {RATIO} (Normal) Range: 0.9-2.4 ALB 3.8 g/dL (Normal) Range: 3.4-5.0 ALK P 78 U/L (Normal) Range: 50-136 ALT 24 U/L (Abnormal) Range: 30-65 AST 10 U/L (Abnormal) Range: 15-37 BUN 11 mg/dL (Normal) Range: 7-18 BUN/CRE 15.7 {RATIO} (Normal) Range: 10-20 CA 8.4 mg/dL (Abnormal) Range: 8.5-10.1 CL 102 mmol/L (Normal) Range: 98-107 CO2 28.0 mmol/L (Normal) Range: 21.0-32.0 CREAT,SERUM 0.7 mg/dL (Normal) Range: 0.6-1.0 EST GFR 90 mL/min (Normal) EST GFR - AA 109 mL/min (Normal) GAP 6 (Normal) Range: 5-15 GLOB 2.8 g/dL (Normal) Range: 2.7-4.2 GLU 95 mg/dL (Normal) Range: 70-110 K 3.9 mmol/L (Normal) Range: 3.5-5.1 NA 136 mmol/L (Normal) Range: 136-145 T BILI 0.50 mg/dL (Normal) Range: 0.00-1.00 T PROT 6.6 g/dL (Normal) Range: 6.4-8.2 77-Acx-209227:11 LIPID CHOL 179 mg/dL (Normal) Comments: <200 mg/dL Desirable 200-240 mg/dL Borderline >240 mg/dL High Risk HDL 62 mg/dL (Normal) Comments: Reference Range HDL <40 mg/dL Low HDL Cholesterol HDL >or= 60 mg/dL High HDL Cholesterol LDL 95 mg/dL (Normal) Range: 0-130 TRIG 108 mg/dL (Normal) Comments: Serum Triglycerides Reference Interval Normal <150 mg/dL Borderline high 150 - 199 mg/dL High 200 - 499 mg/dL Very High > or = 500 mg/dL VLDL 22 mg/dL (Normal) Range: 5-40 72-Gek-917002:11 PHOS 2.6 mg/dL (Normal) Range: 2.5-4.9 :11 PROT.[id number] ALBUMIN,UR 31.3 % (Normal) CAGWI-3-UGCG,U 1.6 % (Normal) VAVIF-2-LOCS,U 13.0 % (Normal) BETA GLOB,U 40.1 % (Normal) GAMMA GLOB,U 14.0 % (Normal) M-SPIKE,U SeeNote % (Normal) Comments: Result: Not Observed NOTE Comment (Normal) Comments: Protein electrophoresis scan will follow via computer,mail, or department store general manager delivery. PROTEIN,UR 10.2 mg/dL (Normal) Range: 0.0-15.0 :11 PTH,[id number] PTH,Intact 28 pg/mL (Normal) Range: 15-65 Comments: Performed At: [address] [id number] 46-Bmf-607621:11 SPE [id number] A/G RATIO 1.7 (Normal) Range: 0.7-2.0 ALBUMIN 4.0 g/dL (Normal) Range: 3.2-5.6 ALPHA-1 GLOBUL 0.2 g/dL (Normal) Range: 0.1-0.4 ALPHA-2 GLOBUL 0.6 g/dL (Normal) Range: 0.4-1.2 BETA GLOBULIN 0.9 g/dL (Normal) Range: 0.6-1.3 GAMMA GLOBULIN 0.6 g/dL (Normal) Range: 0.5-1.6 GLOBULIN, TOTAL 2.3 g/dL (Normal) Range: 2.0-4.5 INTERPRETATION Comment (Normal) Comments: The SPE pattern appears essentially unremarkable. Evidenceof monoclonal protein is not apparent. M-SPIKE SeeNote g/dL (Normal) Comments: Result: Not Observed NOTE: Comment (Normal) Comments: Protein electrophoresis scan will follow via computer,mail, or department store general manager delivery. PROTEIN,TOTAL 6.3 g/dL (Normal) Range: 6.0-8.5 5-Nct-190100:05 TRANSVAGINAL NON-PREG US () Radiology Report See Note (Normal) Comments: Exam Number: [id number] PELVIC ULTRASOUND HISTORYAbnormal pelvic exam. Transabdominal and transvaginal studies were performed. Highresolution real time sector images were obtained. The [place] angela is sandra l in size measuring 8.1 X 2.5 X 4.9 cm. There is amass arising from the superior fundus measuring 1.5 X 0.9 X 1.5 cm. This is most likely to represent a uterine fibroid. Endometriummeasures 2 mm, whic h is normal. There is a small calcific focus inthe endometrium. This is of uncertain etiology but likely torepresent the result of old insult. The ovaries are not identified. There is no fluid in the cul-de-sac. IMPRESSION1. The overall size of the uterus is within normal limits. A single small mass is identified associated with the uterus, compatible with a fibroid measuring 1.5 cm in size . 2. The endometrium is normal at 2 mm. There is a single small calcific focus in the endometrium, which may represent the result of an old insult.3. The ovaries are not seen. Reported By: JAVY CASTRO M.D. 1-Wfr-614828:51 PELVIC (NON-PREG) (HP) Radiology Report See Note (Normal) Comments: Exam Number: [id number] PELVIC ULTRASOUND HISTORYAbnormal pelvic exam. Transabdominal and transvaginal studies were performed. Highresolution real time sector images were obtained. The [place]ela is sandra l in size measuring 8.1 X 2.5 X 4.9 cm. There is amass arising from the superior fundus measuring 1.5 X 0.9 X 1.5 cm. This is most likely to represent a uterine fibroid. Endometriummeasures 2 mm, whic h is normal. There is a small calcific focus inthe endometrium. This is of uncertain etiology but likely torepresent the result of old insult. The ovaries are not identified. There is no fluid in the cul-de-sac. IMPRESSION1. The overall size of the uterus is within normal limits. A single small mass is identified associated with the uterus, compatible with a fibroid measuring 1.5 cm in size . 2. The endometrium is normal at 2 mm. There is a single small calcific focus in the endometrium, which may represent the result of an old insult.3. The ovaries are not seen. Reported By: JAVY CASTRO M.D. 21-Yfu-625052:41 Thin prep Pap Comments: Source.............Cervical;EndocervicalLMP / Prev Treat...LMD=[id number]. of containers..01 CYTYC Thin Prep VialPATIENT NOT FASTINGClinical Information: ADD [id number] ([id number]) PERFORMED BY: [facility] [id number] . . (Normal) DIAGNOSIS: SPRCS (Normal) Comments: NEGATIVE FOR INTRAEPITHELIAL LESION AND MALIGNANCY.Satisfactory for evaluation. Endocervical component may not bedistinguished in cases of atrophy.V72.31 ; Routine gynecological examination Lilly Bravo, [facility] ([facility]) Note: PAPSMR (Normal) Comments: The Pap smear is a screening test designed to aid in the detection ofpremalignant and malignant conditions of the uterine cervix. It is not adiagnostic procedure and should not be used as the sole mean s of detectingcervical cancer. Both false-positive and false-negative reports do occur. .The HPV DNA reflex criteria were not met with this specimen resulttherefore, no HPV testing was performed. . :35 HgA1C , Office (05139) HgA1C , Office 5.5 % (Normal) Range: 4.6 - 7.1 :35 Blood Glucose , Office (92387) Blood Glucose , Office 102 (Normal) :54 CBCD,SMEAR DIFF BAND 1 % (Normal) Range: 0-5 CELLS COUNTED 100 (Normal) EOS 3 % (Normal) Range: 0-5 HCT 36.9 % (Abnormal) Range: 37-47 HGB 12.9 g/dL (Normal) Range: 12.0-16.0 LYMPH 28 % (Normal) Range: 19-41 MCH 30.7 pg (Normal) Range: 27.0-32.0 MCHC 34.8 g/dL (Normal) Range: 32-36 MCV 88.1 fL (Normal) Range: 81-99 MONOCYTE 10 % (Normal) Range: 0-10 PLT 302 K/mm3 (Normal) Range: 150-450 PLT EST SeeNote (Normal) Comments: Result: ADEQUATE RBC 4.19 {M/mm3} (Abnormal) Range: 4.2-5.4 RDW 12.7 % (Normal) Range: 11.6-14.6 RED CELL MORPH SeeNote {NORMAL} (Normal) Comments: Result: NORM C+C SEGS 58 % (Normal) Range: 47-70 WBC 4.9 K/mm3 (Normal) Range: 4.4-11.0 :54 COMP METABOLIC A/G 1.2 {RATIO} (Normal) Range: 0.9-2.4 ALB 3.7 g/dL (Normal) Range: 3.4-5.0 ALK P 101 U/L (Normal) Range: 50-136 ALT 48 U/L (Normal) Range: 30-65 AST 26 U/L (Normal) Range: 15-37 BUN 11 mg/dL (Normal) Range: 7-18 BUN/CRE 13.8 {RATIO} (Normal) Range: 10-20 CA 8.6 mg/dL (Normal) Range: 8.5-10.1 CL 103 mmol/L (Normal) Range: 98-107 CO2 29.2 mmol/L (Normal) Range: 21.0-32.0 CREAT,SERUM 0.8 mg/dL (Normal) Range: 0.6-1.0 EST GFR 77 mL/min (Normal) EST GFR - AA 93 mL/min (Normal) Comments: ESTIMATED GLOMERULAR FILTRATION RATE The National Kidney Foundation (NKF) guidelines forChronic kidney disease (CKD) recommends all laboratoriesestimate the level of glomerular filtration rate (GFR)in p atients from age 18 - 70 years of age.The eGFR for patient's is the eGFRmultiplied by 1.212. [facility] Laboratory uses the abbreviated Modification of Diet inRenal Disease (MDRD) study equati on to calculate the eGFR.The Estimated GFR equation is not applicable for patients<18 years of age or patients >70 years of age.The following conditions may alter the eGFR calculationresult: extre mes in body size, severe malnutrition orobesity, skeletal muscle disease, paraplegia, quadriplegia,vegetarian diet, , certain drug therapy and rapidlychanging kidney function. Association o f GFR and Staging of Kidney Disease*GFR (mL/min) With Kidney Disease W/O Kidney Disease>/= 90 Stage One Gzcdwm71 - 89 Stage Two Suspect Decreased GFR30 - 59 Stage Three Stage Three15 - 29 Stage Four Stage Four< 15 or Dialysis Stage Five Stage Five *Each stage assumes the associ ated GFR level has been ineffect for at least three months.Additional studies & clinical assessments are indicated toconclude diagnosis of Chronic Kidney Disease (CKD). GAP 5 (Normal) Range: 5-15 GLOB 3.1 g/dL (Normal) Range: 2.7-4.2 GLU 79 mg/dL (Normal) Range: 70-110 K 4.0 mmol/L (Normal) Range: 3.5-5.1 NA 137 mmol/L (Normal) Range: 136-145 T BILI 0.20 mg/dL (Normal) Range: 0.00-1.00 T PROT 6.8 g/dL (Normal) Range: 6.4-8.2 :54 LIPID CHOL 183 mg/dL (Normal) Comments: <200 mg/dL Desirable 200-240 mg/dL Borderline >240 mg/dL High Risk HDL 53 mg/dL (Normal) Comments: Reference Range HDL <40 mg/dL Low HDL Cholesterol HDL >or= 60 mg/dL High HDL Cholesterol LDL 109 mg/dL (Normal) Range: 0-130 TRIG 103 mg/dL (Normal) Comments: Serum Triglycerides Reference Interval Normal <150 mg/dL Borderline high 150 - 199 mg/dL High 200 - 499 mg/dL Very High > or = 500 mg/dL VLDL 21 mg/dL (Normal) Range: 5-40 :54 MICROALB:CRE UR MALB:CREAT 2.4 {mg/g_CRE} (Normal) MICROALBUMIN,UR 2.5 mg/L (Normal) UR CREAT 104.2 mg/dL (Normal) :54 TSH 3.28 {uIU/mL} (Normal) Range: 0.34-4.82 :54 VIT D,25 58245 40.7 ng/mL (Normal) Range: 32.0-100.0 Comments: Recent studies consider the lower limit of 32.0 ng/mL to adan threshold for optimal health.Fred VILLARREAL. J Nutr. 2004;135(2):317-22.Performed At: [facility] [place], [place] [id number] 23-Spw-248366:19 DEXA BONE DENSITY STUDY (HP) Radiology Report See Note (Normal) Comments: Exam Number: [id number] BONE DENSITOMETRY HISTORYOsteopenia. TECHNIQUE Bone densitometry of the lumbar spine and left hip was performed. Thebest criteria for evaluation of osteoporosis is the T-valu e, whichrepresents the comparison of the patient's bone mass to an expectedpeak bone mass. For most patients, the mean T-value of L1 through L4is used to evaluate the lumbar spine. Based on the newest WorldHealth Organization classifications, the hip is evaluated by utilizingthe lower of the T-value of the total hip or the T-value of thefemoral neck. FINDINGSIn this patient, the mean T-value of L1 through L4 is -1.2 which is inthe range of osteopenia. Bone mineral density is measured at 8.7%less than in 2001 and 4.8% less than in 2006. Digital lateral view forevaluation of vertebral deformity o nly demonstrates slight loss ofanterior height of T7. The T-value of the left femoral neck is -1.4which is in the range of osteopenia. The T-value of the total left hipis -0.5 which is normal. Bone mine ral density is measured at 9.2% lessthan in 2001 and 8.1% less than in 2006. IMPRESSIONThere is osteopenia of the lumbar spine and left hip. Reported By: JAVY CASTRO M.D. 62-Wwl-688705:57 KNEE,3 VIEWS (MT) Radiology Report See Note (Normal) Comments: Exam Number: [id number] LEFT KNEE CLINICAL INFORMATIONFall, pain. 3 views of the left knee were obtained. There are no studies available for comparison. There are findings related to a left knee arthro plasty. The femoraland tibial components appear to be in normal relationship. No acutefractures are seen. There is no obvious evidence of periprostheticlucency or findings to suggest loosening of the components. Theredoes appear to be a small joint effusion. There is enthesophyteformation at the insertion of the quadricep tendon on the patella. IMPRESSIONThe left knee arthroplasty components appe ar to be appropriaterelationship. There is evidence of a small joint effusion. No acutebony abnormalities are seen otherwise. Reported By: SHANELL LOFTON M.D. 42-Ayr-232755:34 Blood Glucose , Office (35995) Blood Glucose , Office 113 (Normal) 03-Akz-934146:34 HgA1C , Office (47067) HgA1C , Office 5.8 % (Normal) Range: 4.6 - 7.1 91-Klh-584493:19 HEPATIC FUNCTION PANEL Comments: PATIENT WAS FASTINGClinical Information: ADD DRAW FEE [id number] ADD J 91764 PERFORMED BY: BERE QuintilesHampton Behavioral Health CenterFeueqz4085 [facility] [id number] (18884) Albumin, Serum 4.6 g/dL (Normal) Range: 3.6-4.8 Alkaline Phosphatase, S 83 [iU]/L (Normal) Range: 25-165 ALT (SGPT) 17 [iU]/L (Normal) Range: 0-40 AST (SGOT) 22 [iU]/L (Normal) Range: 0-40 Bilirubin, Direct 0.12 mg/dL (Normal) Range: 0.00-0.40 Bilirubin, Total 0.5 mg/dL (Normal) Range: 0.1-1.2 Protein, Total, Serum 7.0 g/dL (Normal) Range: 6.0-8.5 :19 LIPID PANEL (62941) Comments: PATIENT WAS FASTINGPERFORMED BY: BERE QuintilesHampton Behavioral Health CenterMjyrth8166 [facility] [id number] Cholesterol, Total 186 mg/dL (Normal) Range: 100-199 HDL Cholesterol 66 mg/dL (Abnormal) Range: 40-59 Comments: HDL cholesterol values >59 mg/dL are associated with reduced cardiacrisk. LDL Cholesterol Calc 99 mg/dL (Normal) Range: 0-99 LDL/HDL Ratio 1.5 {ratio_units} (Normal) Range: 0.0-3.2 Triglycerides 107 mg/dL (Normal) Range: 0-149 VLDL Cholesterol Sumeet 21 mg/dL (Normal) Range: 5-40 42-Kko-615626:16 HgA1C , Office (88738) HgA1C , Office 5.5 % (Normal) Range: 4.6 - 7.1 72-Ovq-236860:16 Blood Glucose , Office (10948) Blood Glucose , Office 125 (Normal) 58-Uvw-750514:03 MICROALBUMIN: CREATININE RATIO Comments: PATIENT WAS FASTINGPERFORMED BY: QuintilesDonna Ville [id number] [facility] [id number] (97208) AND (07803) Microalbum.,U,Random 3.8 ug/mL (Normal) Range: 0.0-17.0 93-Wct-823246:03 HEPATIC FUNCTION PANEL Comments: PATIENT WAS FASTINGClinical Information: ADD DRAW FEE [id number] ADD J 69668 PERFORMED BY: TrovaGeneHampton Behavioral Health CenterVajrih1293 [facility] [id number] (96731) Albumin, Serum 4.8 g/dL (Normal) Range: 3.6-4.8 Alkaline Phosphatase, S 77 [iU]/L (Normal) Range: 25-165 ALT (SGPT) 20 [iU]/L (Normal) Range: 0-40 AST (SGOT) 22 [iU]/L (Normal) Range: 0-40 Bilirubin, Direct 0.11 mg/dL (Normal) Range: 0.00-0.40 Bilirubin, Total 0.4 mg/dL (Normal) Range: 0.1-1.2 Protein, Total, Serum 7.0 g/dL (Normal) Range: 6.0-8.5 :03 LIPID PANEL (91415) Comments: PATIENT WAS FASTINGPERFORMED BY: [email or web address] [facility] [id number] Cholesterol, Total 205 mg/dL (Abnormal) Range: 100-199 Comment SPRCS (Normal) Comments: If initial LDL-cholesterol result is >100 mg/dL, assess forrisk factors. HDL Cholesterol 65 mg/dL (Abnormal) Range: 40-59 Comments: HDL cholesterol values >59 mg/dL are associated with reduced cardiacrisk. LDL Cholesterol Calc 108 mg/dL (Abnormal) Range: 0-99 LDL/HDL Ratio 1.7 {ratio_units} (Normal) Range: 0.0-3.2 Triglycerides 160 mg/dL (Abnormal) Range: 0-149 VLDL Cholesterol Sumeet 32 mg/dL (Normal) Range: 5-40 :53 HgA1C , Office (83596) HgA1C , Office 5.4 % (Normal) Range: 4.6 - 7.1 :52 Blood Glucose , Office (99923) Blood Glucose , Office 96 (Normal) :42 CHEST, PA AND LATERAL Radiology Report See Note (Normal) Comments: Exam Number: [id number] PA AND LATERAL CHEST HISTORY Being done for cough. Cardiac configuration is normal. There are mild emphysematouschanges. No acute infiltrate, effusion, or pneumothorax isidenti fied. There is spur formation mid dorsal spine. These findingswere all seen on December 10, 2006, and are unchanged. IMPRESSIONNo acute change noted in the lungs. Reported By: CHANEL SANDY M.D. 91-Zld-762633:32 LIPID PANEL (41276) Comments: PATIENT WAS FASTINGPERFORMED BY: Quintiles Cbbtxn3890 [facility] [id number] Cholesterol, Total 204 mg/dL (Abnormal) Range: 100-199 Comment SPRCS (Normal) Comments: HDL cholesterol values >59 mg/dL are associated with reduced cardiacrisk. Comment SPRCS (Normal) Comments: If initial LDL-cholesterol result is >100 mg/dL, assess forrisk factors. HDL Cholesterol 73 mg/dL (Abnormal) Range: 40-59 LDL Cholesterol Calc 106 mg/dL (Abnormal) Range: 0-99 LDL/HDL Ratio 1.5 {ratio_units} (Normal) Range: 0.0-3.2 Triglycerides 125 mg/dL (Normal) Range: 0-149 VLDL Cholesterol Sumeet 25 mg/dL (Normal) Range: 5-40 58-Zua-832992:32 URINALYSIS W/O MICRO (76394) Comments: PATIENT WAS FASTINGPERFORMED BY: Sai [employer]iso[employer] [facility] [id number] Appearance Clear (Normal) Bilirubin Negative (Normal) Glucose Negative (Normal) Ketones Negative (Normal) Microscopic Examination MICRON (Normal) Comments: Microscopic follows if indicated. Nitrite, Urine Negative (Normal) Occult Blood Negative (Normal) pH 6.5 (Normal) Range: 5.0-7.5 Protein Negative (Normal) Specific [place] 1.019 (Normal) Range: 1.005-1.030 Urine-Color Yellow (Normal) Urobilinogen,Semi-Qn 0.2 mg/dL (Normal) Range: 0.0-1.9 WBC Esterase Negative (Normal) 76-Sja-248428:32 TSH (13824) Comments: PATIENT WAS FASTINGPERFORMED BY: Sai [employer] [facility] [id number] TSH 2.348 {uIU/mL} (Normal) Range: 0.350-5.500 78-Wbo-328894:32 METABOLIC PANEL, COMPREHENSIVE Comments: PATIENT WAS FASTINGPERFORMED BY: Sai [employer] [facility] [id number] (65721) A/G Ratio 1.7 (Normal) Range: 1.1-2.5 Albumin, Serum 4.5 g/dL (Normal) Range: 3.6-4.8 Alkaline Phosphatase, S 90 [iU]/L (Normal) Range: 25-165 ALT (SGPT) 20 [iU]/L (Normal) Range: 0-40 AST (SGOT) 23 [iU]/L (Normal) Range: 0-40 Bilirubin, Total 0.4 mg/dL (Normal) Range: 0.1-1.2 BUN 16 mg/dL (Normal) Range: 5-26 BUN/Creatinine Ratio 18 (Normal) Range: 8-27 Calcium, Serum 9.8 mg/dL (Normal) Range: 8.5-10.6 Carbon Dioxide, Total 28 mmol/L (Normal) Range: 20-32 Chloride, Serum 100 mmol/L (Normal) Range: 96-109 Creatinine, Serum 0.9 mg/dL (Normal) Range: 0.5-1.5 Globulin, Total 2.6 g/dL (Normal) Range: 1.5-4.5 Glucose, Serum 93 mg/dL (Normal) Range: 65-99 Potassium, Serum 4.4 mmol/L (Normal) Range: 3.5-5.5 Protein, Total, Serum 7.1 g/dL (Normal) Range: 6.0-8.5 Sodium, Serum 141 mmol/L (Normal) Range: 135-148 [id number] CBC WITH MANUAL DIFF ([id number]) Comments: PATIENT WAS FASTINGClinical Information: ADD DRAW FEE [id number] ADD J [id number] PERFORMED BY: CB [facility] [id number] [facility] [id number] Baso (Absolute) 0.0 {x10E3/uL} (Normal) Range: 0.0-0.2 Basos 0 % (Normal) Range: 0-3 Eos 3 % (Normal) Range: 0-7 Eos (Absolute) 0.2 {x10E3/uL} (Normal) Range: 0.0-0.4 Hematocrit 40.1 % (Normal) Range: 34.0-44.0 Hemoglobin 13.6 g/dL (Normal) Range: 11.5-15.0 Lymphs 34 % (Normal) Range: 14-46 Lymphs (Absolute) 2.1 {x10E3/uL} (Normal) Range: 0.7-4.5 MCH 30.3 pg (Normal) Range: 27.0-34.0 MCHC 34.0 g/dL (Normal) Range: 32.0-36.0 MCV 89 fL (Normal) Range: 80-98 Monocytes 8 % (Normal) Range: 4-13 Monocytes(Absolute) 0.5 {x10E3/uL} (Normal) Range: 0.1-1.0 Neutrophils 55 % (Normal) Range: 40-74 Neutrophils (Absolute) 3.4 {x10E3/uL} (Normal) Range: 1.8-7.8 Platelets 279 {x10E3/uL} (Normal) Range: 140-415 RBC 4.50 {x10E6/uL} (Normal) Range: 3.80-5.10 RDW 13.3 % (Normal) Range: 11.7-15.0 WBC 6.1 {x10E3/uL} (Normal) Range: 4.0-10.5 :56 Blood Glucose , Office ([id number]) Blood Glucose , Office 84 (Normal) :56 HgA1C , Office ([id number]) HgA1C , Office 5.4 % (Normal) Range: 4.6 - 7.1 :12 Blood Glucose , Office ([id number]) Comments: [facility] Blood Glucose , Office 94 (Normal) :12 HgA1C , Office ([id number]) Comments: [facility] HgA1C , Office 5.3 % (Normal) Range: 4.6 - 7.1 :53 LIPID CHOL 180 mg/dL (Normal) Comments: <200 mg/dL Desirable 200-240 mg/dL Borderline >240 mg/dL High Risk HDL 59 mg/dL (Normal) Comments: Reference Range HDL <40 mg/dL Low HDL Cholesterol HDL >or= 60 mg/dL High HDL Cholesterol LDL 100 mg/dL (Normal) Range: 0-130 TRIG 107 mg/dL (Normal) Comments: Serum Triglycerides Reference Interval Normal <150 mg/dL Borderline high 150 - 199 mg/dL High 200 - 499 mg/dL Very High > or = 500 mg/dL VLDL 21 mg/dL (Normal) Range: 5-40 :27 ANTIBODY SCREEN NEGATIVE (Normal) : BLOOD TYPE PT A NEGATIVE (Normal) : BMP BUN 16 mg/dL (Normal) Range: 7-18 BUN/CRE 20.0 {RATIO} (Normal) Range: 10-20 CA 8.8 mg/dL (Normal) Range: 8.5-10.1 CL 104 mmol/L (Normal) Range: 98-107 CO2 31.2 mmol/L (Abnormal) Range: 22.0-29.0 CREAT,SERUM 0.8 mg/dL (Normal) Range: 0.6-1.0 GAP 4 (Abnormal) Range: 5-15 GLU 92 mg/dL (Normal) Range: 70-110 K 4.4 mmol/L (Normal) Range: 3.5-5.1 NA 139 mmol/L (Normal) Range: 136-145 :27 CBC HCT 37.8 % (Normal) Range: 37-47 HGB 12.9 g/dL (Normal) Range: 12.0-16.0 MCH 29.5 pg (Normal) Range: 27.0-32.0 MCHC 34.2 g/dL (Normal) Range: 32-36 MCV 86.4 fL (Normal) Range: 81-99 PLT 309 K/mm3 (Normal) Range: 150-450 RBC 4.38 {M/mm3} (Normal) Range: 4.2-5.4 RDW 13.8 % (Normal) Range: 11.6-14.6 WBC 4.4 K/mm3 (Normal) Range: 4.4-11.0 :52 HgA1C , Office ([id number]) Comments: [facility] HgA1C , Office 5.2 % (Normal) Range: 4.6 - 7.1 :52 Blood Glucose , Office ([id number]) Comments: [facility] Blood Glucose , Office 99 (Normal) :59 CBC HCT 36.4 % (Abnormal) Range: 37-47 HGB 12.2 g/dL (Normal) Range: 12.0-16.0 MCH 29.6 pg (Normal) Range: 27.0-32.0 MCHC 33.5 g/dL (Normal) Range: 32-36 MCV 88.5 fL (Normal) Range: 81-99 PLT 319 K/mm3 (Normal) Range: 150-450 RBC 4.11 {M/mm3} (Abnormal) Range: 4.2-5.4 RDW 15.4 % (Abnormal) Range: 11.6-14.6 WBC 4.4 K/mm3 (Normal) Range: 4.4-11.0 :09 BMP Comments: Precautions*: NOT APPLICABLE BUN 8 mg/dL (Normal) Range: 7-18 BUN/CRE 11.4 {RATIO} (Normal) Range: 10-20 CA 8.5 mg/dL (Normal) Range: 8.5-10.1 CL 97 mmol/L (Abnormal) Range: 98-107 CO2 28.2 mmol/L (Normal) Range: 22.0-29.0 CREAT,SERUM 0.7 mg/dL (Normal) Range: 0.6-1.0 GAP 11 (Normal) Range: 5-15 K 4.0 mmol/L (Normal) Range: 3.5-5.1 NA 136 mmol/L (Normal) Range: 136-145 GLU 113 mg/dL (Abnormal) Range: 70-110 Comments: Fasting Glucose result from 110 to <126 mg/dL suggests IMPAIRED HOMEOSTASIS per A.D.A. criteria. :09 CBC Comments: Precautions*: NOT APPLICABLE; hgb better rest work up per fast HCT 27.6 % (Abnormal) Range: 37-47 HGB 9.4 g/dL (Abnormal) Range: 12.0-16.0 MCH 30.2 pg (Normal) Range: 27.0-32.0 MCHC 34.2 g/dL (Normal) Range: 32-36 MCV 88.5 fL (Normal) Range: 81-99 PLT 469 K/mm3 (Abnormal) Range: 150-450 RBC 3.12 {M/mm3} (Abnormal) Range: 4.2-5.4 RDW 15.3 % (Abnormal) Range: 11.6-14.6 WBC 8.2 K/mm3 (Normal) Range: 4.4-11.0 [id number] COMPLETE UA Comments: COMMENTS: CULTURE IF WBC>5Precautions*: NOT APPLICABLE BACTERIA 1+ {/hpf} (Normal) BILIRUBIN URINE SeeNote (Normal) Comments: Result: NEGATIVE CLARITY CLEAR (Normal) GLUCOSE, UR SeeNote (Normal) Comments: Result: NEGATIVE KETONE UR SeeNote mg/dL (Normal) Comments: Result: NEGATIVE LEUK ESTERASE SeeNote (Normal) Comments: Result: NEGATIVE MUCUS, URINE 0 SEEN {/hpf} (Normal) NITRITE UR SeeNote (Normal) Comments: Result: NEGATIVE OCCULT BLOOD-UR SeeNote (Normal) Comments: Result: NEGATIVE pH UR 6.5 (Normal) Range: 5.0-8.0 PROT DIPSTX SeeNote (Normal) Comments: Result: NEGATIVE RBC-UA 0 SEEN {/hpf} (Normal) Range: 0-5 SP.GR. DIPSTX <=1.005 (Normal) Range: 1.002-1.030 SQUAM EPI 0 SEEN {/hpf} (Normal) Range: 5-10 UROBILI 0.2 EU/dl (Normal) Range: 0.2 - 1.0 WBC SeeNote {/hpf} (Normal) Range: 0-5 Comments: Result: 0-5 SEEN COLOR YELLOW (Normal) :00 CULTURE, URINE Comments: Precautions*: NOT APPLICABLE URINE CULTURE See Note (Normal) Comments: Culture exhibits no growth. :20 PRO TIME Comments: COMMENTS: INR, PTPrecautions*: NOT APPLICABLE INR 0.8 (Normal) PROTIME 10.7 s (Abnormal) Range: 11.7-13.3 :06 BMP Comments: Precautions*: NOT APPLICABLE BUN 6 mg/dL (Abnormal) Range: 7-18 BUN/CRE 7.5 {RATIO} (Abnormal) Range: 10-20 CA 7.7 mg/dL (Abnormal) Range: 8.5-10.1 CL 100 mmol/L (Normal) Range: 98-107 CO2 27.6 mmol/L (Normal) Range: 22.0-29.0 CREAT,SERUM 0.8 mg/dL (Normal) Range: 0.6-1.0 GAP 7 (Normal) Range: 5-15 GLU 127 mg/dL (Abnormal) Range: 70-110 Comments: Fasting Glucose result greater than or equal to 126 mg/dL suggests DIABETES MELLITUS per A.D.A. criteria. K 3.7 mmol/L (Normal) Range: 3.5-5.1 NA 135 mmol/L (Abnormal) Range: 136-145 :05 CULTURE, URINE Comments: Precautions*: NOT APPLICABLE URINE CULTURE See Note {CFU/mL} (Normal) Comments: COLONY COUNT 1000-10,000 ORGANISM 1: MIXED GRAM POSITIVE ORGANISMS :20 CBC Comments: Precautions*: NOT APPLICABLE HCT 25.5 % (Abnormal) Range: 37-47 HGB 8.8 g/dL (Abnormal) Range: 12.0-16.0 MCH 30.2 pg (Normal) Range: 27.0-32.0 MCHC 34.5 g/dL (Normal) Range: 32-36 MCV 87.4 fL (Normal) Range: 81-99 PLT 167 K/mm3 (Normal) Range: 150-450 RBC 2.92 {M/mm3} (Abnormal) Range: 4.2-5.4 RDW 15.0 % (Abnormal) Range: 11.6-14.6 WBC 6.3 K/mm3 (Normal) Range: 4.4-11.0 :20 LYTES Comments: Precautions*: NOT APPLICABLE CL 99 mmol/L (Normal) Range: 98-107 CO2 30.2 mmol/L (Abnormal) Range: 22.0-29.0 GAP 9 (Normal) Range: 5-15 K 3.2 mmol/L (Abnormal) Range: 3.5-5.1 NA 138 mmol/L (Normal) Range: 136-145 [id number]-[id number]:12 BMP CL 104 mmol/L (Normal) Range: 98-107 CO2 31.5 mmol/L (Abnormal) Range: 22.0-29.0 GAP 4 (Abnormal) Range: 5-15 K 4.3 mmol/L (Normal) Range: 3.5-5.1 BUN 13 mg/dL (Normal) Range: 7-18 BUN/CRE 16.3 {RATIO} (Normal) Range: 10-20 CA 8.7 mg/dL (Normal) Range: 8.5-10.1 CREAT,SERUM 0.8 mg/dL (Normal) Range: 0.6-1.0 GLU 70 mg/dL (Normal) Range: 70-110 NA 139 mmol/L (Normal) Range: 136-145 18-Jms-[id number]:12 CBC HCT 37.4 % (Normal) Range: 37-47 HGB 12.8 g/dL (Normal) Range: 12.0-16.0 MCH 30.5 pg (Normal) Range: 27.0-32.0 MCHC 34.1 g/dL (Normal) Range: 32-36 MCV 89.4 fL (Normal) Range: 81-99 PLT 295 K/mm3 (Normal) Range: 150-450 RBC 4.19 {M/mm3} (Abnormal) Range: 4.2-5.4 RDW 12.8 % (Normal) Range: 11.6-14.6 WBC 6.2 K/mm3 (Normal) Range: 4.4-11.0 66-Ger-[id number]:12 PRO TIME INR 0.9 (Normal) PROTIME 11.7 s (Normal) Range: 11.7-13.3 :12 PTT 30.0 s (Normal) Range: 24.6-36.6 :34 Blood Glucose , Office ([id number]) Blood Glucose , Office 109 (Normal) :34 HgA1C , Office (60193) HgA1C , Office 5.4 % (Normal) Range: 4.6 - 7.1 73-Zds-[id number]:42 GLUP 141 mg/dL (Abnormal) Comments: GLU,2HPPG 75gm GLUC PPG GLUP from 1127:[id number]. Comments: Glucose result from 140 to <200 mg/dL suggestsIMPAIRED GLUCOSE HOMEOSTASIS per A.D.A. criteria. [id number]:37 B12/FOLATES 810 FOLATES,S 2013 19.9 ng/mL (Normal) Comments: Indeterminate: 3.4 - 5.4 Deficient: <3.4Performed At: [facility] [id number] [place], [place] [id number] VIT B12 1503 375 pg/mL (Normal) Range: 211-911 :37 CBCD,SMEAR DIFF BAND 2 % (Normal) Range: 0-5 CELLS COUNTED 100 (Normal) EOS 2 % (Normal) Range: 0-5 HCT 38.2 % (Normal) Range: 37-47 HGB 13.1 g/dL (Normal) Range: 12.0-16.0 LYMPH 24 % (Normal) Range: 19-41 MCH 30.5 pg (Normal) Range: 27.0-32.0 MCHC 34.2 g/dL (Normal) Range: 32-36 MCV 89.3 fL (Normal) Range: 81-99 MONOCYTE 9 % (Normal) Range: 0-10 PLT 276 K/mm3 (Normal) Range: 150-450 PLT EST SeeNote (Normal) Comments: Result: ADEQUATE RBC 4.28 {M/mm3} (Normal) Range: 4.2-5.4 RDW 13.4 % (Normal) Range: 11.6-14.6 RED CELL MORPH SeeNote {NORMAL} (Normal) Comments: Result: NORM C&C SEGS 63 % (Normal) Range: 47-70 WBC 6.7 K/mm3 (Normal) Range: 4.4-11.0 54-Wos-[id number]:37 COMP METABOLIC A/G 1.5 {RATIO} (Normal) Range: 0.9-2.4 ALB 4.1 g/dL (Normal) Range: 3.4-5.0 ALK P 76 U/L (Normal) Range: 50-136 ALT 37 [iU]/L (Normal) Range: 30-65 AST 16 U/L (Normal) Range: 15-37 BUN 11 mg/dL (Normal) Range: 7-18 BUN/CRE 13.8 {RATIO} (Normal) Range: 10-20 CA 9.1 mg/dL (Normal) Range: 8.5-10.1 CL 106 mmol/L (Normal) Range: 98-107 CO2 31.9 mmol/L (Abnormal) Range: 22.0-29.0 CREAT,SERUM 0.8 mg/dL (Normal) Range: 0.6-1.0 GAP 3 (Abnormal) Range: 5-15 GLOB 2.7 g/dL (Normal) Range: 2.3-3.5 GLU 101 mg/dL (Normal) Range: 70-110 K 4.6 mmol/L (Normal) Range: 3.5-5.1 NA 141 mmol/L (Normal) Range: 136-145 T BILI 0.35 mg/dL (Normal) Range: 0.00-1.00 T PROT 6.8 g/dL (Normal) Range: 6.4-8.2 :37 COMPLETE UA BACTERIA 0 SEEN {/hpf} (Normal) BILIRUBIN URINE SeeNote (Normal) Comments: Result: NEGATIVE CLARITY CLEAR (Normal) COLOR YELLOW (Normal) GLUCOSE, UR SeeNote (Normal) Comments: Result: NEGATIVE KETONE UR SeeNote mg/dL (Normal) Comments: Result: NEGATIVE LEUK ESTERASE 1+ (Abnormal) MUCUS, URINE 0 SEEN {/hpf} (Normal) NITRITE UR SeeNote (Normal) Comments: Result: NEGATIVE OCCULT BLOOD-UR SeeNote (Normal) Comments: Result: NEGATIVE pH UR 6.5 (Normal) Range: 5.0-8.0 PROT DIPSTX SeeNote (Normal) Comments: Result: NEGATIVE RBC-UA 0 SEEN {/hpf} (Normal) Range: 0-5 SP.GR. DIPSTX 1.020 (Normal) Range: 1.002-1.030 SQUAM EPI 0 SEEN {/hpf} (Normal) Range: 5-10 UROBILI 0.2 EU/dl (Normal) Range: 0.2 - 1.0 WBC SeeNote {/hpf} (Normal) Range: 0-5 Comments: Result: 0-5 SEEN :37 TSH 1.27 {uIU/mL} (Normal) Range: 0.34-4.82 :59 LIVER ALB 3.9 g/dL (Normal) Range: 3.4-5.0 ALK P 82 U/L (Normal) Range: 50-136 ALT 44 [iU]/L (Normal) Range: 30-65 AST 17 U/L (Normal) Range: 15-37 D BILI 0.07 mg/dL (Normal) Range: 0.00-0.30 T BILI 0.33 mg/dL (Normal) Range: 0.00-1.00 T PROT 6.9 g/dL (Normal) Range: 6.4-8.2 :59 PFLIP CHOL 195 mg/dL (Normal) Comments: <200 mg/dL Desirable 200-240 mg/dL Borderline >240 mg/dL High Risk HDL 58 mg/dL (Normal) Comments: Reference Range HDL <40 mg/dL Low HDL Cholesterol HDL >or= 60 mg/dL High HDL Cholesterol LDL 116 mg/dL (Normal) Range: 0-130 TRIG 107 mg/dL (Normal) Comments: Serum Triglycerides Reference Interval Normal <150 mg/dL Borderline high 150 - 199 mg/dL High 200 - 499 mg/dL Very High > or = 500 mg/dL VLDL 21 mg/dL (Normal) Range: 5-40 Plan of Care Name Dates Details Instructions BMI 31.0-31.9,adult : Follow up if no improvement or if symptoms worsen Indication: BMI 31.0-31.9,adult BMI 31.0-31.9,adult : Eprescribed prescriptions (G8553) Indication: BMI 31.0-31.9,adult Upper respiratory infection (Renamed from Infection of the upper respiratory tract) : *URI Treatment Indication: Upper respiratory infection (Renamed from Infection of the upper respiratory tract) Upper respiratory infection (Renamed from Infection of the upper respiratory tract) : *URI Symptoms Indication: Upper respiratory infection (Renamed from Infection of the upper respiratory tract) Upper respiratory infection (Renamed from Infection of the upper respiratory tract) : *Antibiotic Usage Education - Female Indication: Upper respiratory infection (Renamed from Infection of the upper respiratory tract) Nonsmoker : Eprescribed prescriptions (G8553) Indication: Nonsmoker Gastric reflux syndrome : GERD Education Indication: Gastric reflux syndrome Abnormal glucose tolerance test : Follow up in 6 months Indication: Abnormal glucose tolerance test Other chronic nonalcoholic liver disease : Diet, Exercise, and Wt loss Indication: Other chronic nonalcoholic liver disease Other hyperlipidemia : Cholesterol mgmt Indication: Other hyperlipidemia Abnormal glucose tolerance test : *Diabetes Education Indication: Abnormal glucose tolerance test BMI 30.0-30.9,adult : Eprescribed prescriptions (G8553) Indication: BMI 30.0-30.9,adult Diarrhea : Reviewed Lab Indication: Diarrhea Osteopenia : Reviewed Diagnostic Tests Indication: Osteopenia Sore gums : Follow up if no improvement or if symptoms worsen Indication: Sore gums Nonsmoker : Eprescribed prescriptions (G8553) Indication: Nonsmoker Annual Medicare Phyiscal WITHOUT abnormal findings (Renamed from Encounter for general adult medical examination without abnormal findings) : fall reduction handout Indication: Annual Medicare Phyiscal WITHOUT abnormal findings (Renamed from Encounter for general adult medical examination without abnormal findings) Annual Medicare Phyiscal WITHOUT abnormal findings (Renamed from Encounter for general adult medical examination without abnormal findings) : elderly packet given Indication: Annual Medicare Phyiscal WITHOUT abnormal findings (Renamed from Encounter for general adult medical examination without abnormal findings) Annual Medicare Phyiscal WITHOUT abnormal findings (Renamed from Encounter for general adult medical examination without abnormal findings) : advance planning information Indication: Annual Medicare Phyiscal WITHOUT abnormal findings (Renamed from Encounter for general adult medical examination without abnormal findings) Encounter for screening for malignant neoplasm of colon (Renamed from Special screening for malignant neoplasms, colon) : Self breast exam Indication: Encounter for screening for malignant neoplasm of colon (Renamed from Special screening for malignant neoplasms, colon) Encounter for screening for malignant neoplasm of colon (Renamed from Special screening for malignant neoplasms, colon) : *Colon Cancer Screening Indication: Encounter for screening for malignant neoplasm of colon (Renamed from Special screening for malignant neoplasms, colon) Nonsmoker : Eprescribed prescriptions (G8553) Indication: Nonsmoker Abnormal glucose tolerance test : Reviewed Lab Indication: Abnormal glucose tolerance test Abnormal glucose tolerance test : Follow up in 5 months Indication: Abnormal glucose tolerance test Anemia, blood loss : Reviewed Lab Indication: Anemia, blood loss Asthma : Continue Current Prescription(s) Indication: Asthma Other hyperlipidemia : Cholesterol mgmt Indication: Other hyperlipidemia Abnormal glucose tolerance test : Eprescribed prescriptions (G8553) Indication: Abnormal glucose tolerance test Abnormal glucose tolerance test : Follow up in 6 months- gen med Indication: Abnormal glucose tolerance test Abnormal glucose tolerance test : Reviewed Lab Indication: Abnormal glucose tolerance test Depression : Continue Current Prescription(s) Indication: Depression Gastric reflux syndrome : GERD Education Indication: Gastric reflux syndrome Asthma : Continue Current Prescription(s) Indication: Asthma Nonsmoker : Follow up if no improvement or if symptoms worsen Indication: Nonsmoker Cat bite : Eprescribed prescriptions (G8553) Indication: Cat bite BMI 30.0-30.9,adult : Follow up on Wed Indication: BMI 30.0-30.9,adult Cat bite : Eprescribed prescriptions (G8553) Indication: Cat bite Other chronic nonalcoholic liver disease : Diet, Exercise, and Wt loss Indication: Other chronic nonalcoholic liver disease Other hyperlipidemia : Cholesterol mgmt Indication: Other hyperlipidemia Abnormal glucose tolerance test : Follow up in 4 months Indication: Abnormal glucose tolerance test Abnormal glucose tolerance test : Eprescribed prescriptions (G8553) Indication: Abnormal glucose tolerance test Skin lesion : Skin Biopsy Home Instructions Indication: Skin lesion Skin lesion : Skin Infection - Signs and Symptoms Indication: Skin lesion Skin lesion : Shave Biopsy with Epi Indication: Skin lesion BMI 30.0-30.9,adult : Eprescribed prescriptions (G8553) Indication: BMI 30.0-30.9,adult Annual Medicare Phyiscal WITHOUT abnormal findings (Renamed from Encounter for general adult medical examination without abnormal findings) : fall reduction handout Indication: Annual Medicare Phyiscal WITHOUT abnormal findings (Renamed from Encounter for general adult medical examination without abnormal findings) Annual Medicare Phyiscal WITHOUT abnormal findings (Renamed from Encounter for general adult medical examination without abnormal findings) : elderly packet given Indication: Annual Medicare Phyiscal WITHOUT abnormal findings (Renamed from Encounter for general adult medical examination without abnormal findings) Annual Medicare Phyiscal WITHOUT abnormal findings (Renamed from Encounter for general adult medical examination without abnormal findings) : advance planning information Indication: Annual Medicare Phyiscal WITHOUT abnormal findings (Renamed from Encounter for general adult medical examination without abnormal findings) Annual Medicare Phyiscal WITHOUT abnormal findings (Renamed from Encounter for general adult medical examination without abnormal findings) : *Weight Loss Discussion Indication: Annual Medicare Phyiscal WITHOUT abnormal findings (Renamed from Encounter for general adult medical examination without abnormal findings) Encounter for screening for malignant neoplasm of colon (Renamed from Special screening for malignant neoplasms, colon) : *Colon Cancer Screening Indication: Encounter for screening for malignant neoplasm of colon (Renamed from Special screening for malignant neoplasms, colon) Other hyperlipidemia : Cholesterol mgmt Indication: Other hyperlipidemia Gastric reflux syndrome : GERD Education Indication: Gastric reflux syndrome Asthma : Continue Current Prescription(s) Indication: Asthma Gastric reflux syndrome : Continue Current Prescription(s) Indication: Gastric reflux syndrome Obstructive sleep apnea, adult : Reviewed Hose Cementer Letter Indication: Obstructive sleep apnea, adult Abnormal glucose tolerance test : *Diabetes Education Indication: Abnormal glucose tolerance test Chronic obstructive asthma with acute exacerbation (Renamed from Chronic obstructive asthma with exacerbation) : Continue Current Prescription(s) Indication: Chronic obstructive asthma with acute exacerbation (Renamed from Chronic obstructive asthma with exacerbation) Cough : Follow up if no improvement or if symptoms worsen Indication: Cough Cough : Eprescribed prescriptions (G8553) Indication: Cough Diarrhea (Renamed from D (diarrhea)) : *Abd Pain Red Flags Indication: Diarrhea (Renamed from D (diarrhea)) Diarrhea (Renamed from D (diarrhea)) : Diarrhea instructions Indication: Diarrhea (Renamed from D (diarrhea)) Chronic obstructive asthma with acute exacerbation (Renamed from Chronic obstructive asthma with exacerbation) : Eprescribed prescriptions (G8553) Indication: Chronic obstructive asthma with acute exacerbation (Renamed from Chronic obstructive asthma with exacerbation) Abnormal glucose tolerance test : Follow up in 3 months Indication: Abnormal glucose tolerance test Nonsmoker : Eprescribed prescriptions (G8553) Indication: Nonsmoker Nonsmoker : Eprescribed prescriptions (G8553) Indication: Nonsmoker Cough : Eprescribed prescriptions (G8553) Indication: Cough Chronic obstructive asthma with acute exacerbation (Renamed from Chronic obstructive asthma with exacerbation) : *URI Symptoms Indication: Chronic obstructive asthma with acute exacerbation (Renamed from Chronic obstructive asthma with exacerbation) Chronic obstructive asthma with acute exacerbation (Renamed from Chronic obstructive asthma with exacerbation) : *Antibiotic Usage Education - Female Indication: Chronic obstructive asthma with acute exacerbation (Renamed from Chronic obstructive asthma with exacerbation) Symptom, Cough : Eprescribed prescriptions (G8553) Indication: Symptom, Cough Symptom, Cough : Cough Medicines, Nonprescription: cough Indication: Symptom, Cough Irritable bowel syndrome (Renamed from Functional bowel disease) : Follow up in 3 months Indication: Irritable bowel syndrome (Renamed from Functional bowel disease) Abnormal glucose tolerance test : Eprescribed prescriptions (G8553) Indication: Abnormal glucose tolerance test Abnormal glucose tolerance test : Eprescribed prescriptions (G8553) Indication: Abnormal glucose tolerance test Abnormal glucose tolerance test : Eprescribed prescriptions (G8553) Indication: Abnormal glucose tolerance test Abnormal glucose tolerance test : Eprescribed prescriptions (G8553) Indication: Abnormal glucose tolerance test Upper respiratory infection (Renamed from Infection of the upper respiratory tract) : Eprescribed prescriptions (G8553) Indication: Upper respiratory infection (Renamed from Infection of the upper respiratory tract) Abnormal glucose tolerance test : Eprescribed prescriptions (G8553) Indication: Abnormal glucose tolerance test Sinus drainage : Follow up if no improvement or if symptoms worsen Indication: Sinus drainage Abnormal glucose tolerance test : Eprescribed prescriptions (G8553) Indication: Abnormal glucose tolerance test Wheezing (Renamed from Asthmatic breathing) : Follow up if no improvement or if symptoms worsen Indication: Wheezing (Renamed from Asthmatic breathing) Need for prophylactic vaccination and inoculation against influenza : Flu (Influenza) *: flu Indication: Need for prophylactic vaccination and inoculation against influenza Need for prophylactic vaccination and inoculation against influenza : Flu (Influenza) *: flu shot Indication: Need for prophylactic vaccination and inoculation against influenza Abnormal glucose tolerance test : Blood Glucose Test: blood Indication: Abnormal glucose tolerance test Abnormal glucose tolerance test : Eprescribed prescriptions (G8553) Indication: Abnormal glucose tolerance test Allergic Rhinitis : Follow up if no improvement or if symptoms worsen Indication: Allergic Rhinitis Wheezing (Renamed from Asthmatic breathing) : Follow up if no improvement or if symptoms worsen Indication: Wheezing (Renamed from Asthmatic breathing) Asthma : *URI Treatment Indication: Asthma Asthma : *URI Symptoms Indication: Asthma Asthma : *Antibiotic Usage Education - Female Indication: Asthma Hyperlipidemia, unspecified : *Cholesterol - Medication Side Effects Indication: Hyperlipidemia, unspecified Abnormal glucose tolerance test : Blood Glucose Test: blood glucose Indication: Abnormal glucose tolerance test Hyperlipidemia, unspecified : Diet, Exercise, and Wt loss Indication: Hyperlipidemia, unspecified Clostridium difficile infection : Acute Diarrhea: Brief Version *: diarrhea Indication: Clostridium difficile infection Clostridium difficile infection : Patient Instructions Indication: Clostridium difficile infection Diarrhea (Renamed from D (diarrhea)) : Diarrhea instructions Indication: Diarrhea (Renamed from D (diarrhea)) Clostridium difficile diarrhea (Renamed from C. difficile diarrhea) : Antibiotic- Associated Diarrhea: diarrhea Indication: Clostridium difficile diarrhea (Renamed from C. difficile diarrhea) Diarrhea (Renamed from D (diarrhea)) : Diarrhea instructions Indication: Diarrhea (Renamed from D (diarrhea)) Hyperlipidemia, unspecified : Diet, Exercise, and Wt loss Indication: Hyperlipidemia, unspecified Unspecified bacterial pneumonia : Follow up in 2 days Indication: Unspecified bacterial pneumonia Unspecified bacterial pneumonia : Follow up tomorrow with dr Ferreira Indication: Unspecified bacterial pneumonia Unspecified bacterial pneumonia : Continue Current Prescription(s) Indication: Unspecified bacterial pneumonia Asthma with acute exacerbation : Solu Medrol Injection/ Education Indication: Asthma with acute exacerbation Asthma with acute exacerbation : *Antibiotic Usage Education - Female Indication: Asthma with acute exacerbation Symptom, Cough : Cough: uri Indication: Symptom, Cough Symptom, Cough : Follow up if no improvement or if symptoms worsen Indication: Symptom, Cough Bronchitis : *URI Treatment Indication: Bronchitis Bronchitis : *URI Symptoms Indication: Bronchitis Bronchitis : *Antibiotic Usage Education - Female Indication: Bronchitis Hematuria (Renamed from Blood in the urine) : Hematuria (Blood in Urine): blood in urine Indication: Hematuria (Renamed from Blood in the urine) Need for prophylactic vaccination and inoculation against influenza : Follow up DF on 10-12-2012 Indication: Need for prophylactic vaccination and inoculation against influenza Hematuria (Renamed from Blood in the urine) : Follow up in 3 weeks Indication: Hematuria (Renamed from Blood in the urine) Hematuria (Renamed from Blood in the urine) : *UTI treatment Indication: Hematuria (Renamed from Blood in the urine) Hematuria (Renamed from Blood in the urine) : Water in diet, brief version Indication: Hematuria (Renamed from Blood in the urine) Encounter for immunization : Shingles Vaccine Education 2005 Indication: Encounter for immunization Asthma : Asthma: asthma Indication: Asthma Upper respiratory infection (Renamed from Infection of the upper respiratory tract) : *Antibiotic Usage Education - Female Indication: Upper respiratory infection (Renamed from Infection of the upper respiratory tract) Sinusitis, acute : *URI Treatment Indication: Sinusitis, acute Sinusitis, acute : *URI Symptoms Indication: Sinusitis, acute Sinusitis, acute : *Antibiotic Usage Education - Female Indication: Sinusitis, acute Bronchitis : *URI Treatment Indication: Bronchitis Bronchitis : *URI Symptoms Indication: Bronchitis Bronchitis : *Antibiotic Usage Education - Female Indication: Bronchitis Other hyperlipidemia : Diet, Exercise, and Wt loss Indication: Other hyperlipidemia Hyperlipidemia, unspecified : Diet, Exercise, and Wt loss Indication: Hyperlipidemia, unspecified Hyperlipidemia, unspecified : CHOLESTEROL MGMT. Indication: Hyperlipidemia, unspecified Contact dermatitis due to poison alina : Poison Alina Education Indication: Contact dermatitis due to poison alina Well woman exam : Self Breast Exam Education Indication: Well woman exam Well woman exam : Pap/Pelvic/Bimanual/Rectal/Breast Exam was done. Indication: Well woman exam Well woman exam : Well Female Maintenance (KF) Indication: Well woman exam Allergic rhinitis due to other allergen : ALLERGY CONTROL Indication: Allergic rhinitis due to other allergen Allergic rhinitis due to other allergen : ALLERGY PROOFING Indication: Allergic rhinitis due to other allergen Allergic rhinitis due to other allergen : URI Symptoms Indication: Allergic rhinitis due to other allergen Bronchitis : *URI Treatment Indication: Bronchitis Bronchitis : Antibiotic Usage Education - Female Indication: Bronchitis Bronchitis : URI Symptoms Indication: Bronchitis Hyperlipidemia, unspecified : Diet and Exercise Indication: Hyperlipidemia, unspecified Chronic obstructive asthma with acute exacerbation : Solu Medrol Injection/ Education Indication: Chronic obstructive asthma with acute exacerbation Bronchitis, acute : FOLLOW UP IN 3 MONTHS Indication: Bronchitis, acute Bronchitis, acute : URI Symptoms Indication: Bronchitis, acute Bronchitis, acute : Antibiotic Usage Education - Female Indication: Bronchitis, acute Bronchitis : Antibiotic Usage Education - Female Indication: Bronchitis Bronchitis : URI Symptoms Indication: Bronchitis Abnormal glucose tolerance test : Diabetes Education Indication: Abnormal glucose tolerance test Symptom, Cough : FOLLOW UP - MAKE APPT AFTER DIAGNOSTIC TESTS Indication: Symptom, Cough Planned Observations Sputum Culture ([id number])Indication: Chronic obstructive asthma with acute exacerbation (Renamed from Chronic obstructive asthma with exacerbation) On: 46-Tkt-187340:15 Request INFECTIOUS ANTIGEN, RSV ([id number])Indication: Upper respiratory infection (Renamed from Infection of the upper respiratory tract) On: 69-Zee-931980:19 Request CALCIFEDIOL (25941)Indication: Depression On: :31 Request TSH ([id number])Indication: Abnormal glucose tolerance test On: : Request URINALYSIS, W/ MICRO ([id number])Indication: Abnormal glucose tolerance test On: : Request MICROALBUMIN: CREATININE RATIO (05639) AND ([id number])Indication: Abnormal glucose tolerance test On: :29 Request METABOLIC PANEL, COMPREHENSIVE (77679)Indication: Abnormal glucose tolerance test On: : Request LIPOPROTEIN, BLD, BY NMR (40590)Indication: Abnormal glucose tolerance test On: : Request CBC W/AUTO DIFF WBC ([id number])Indication: Abnormal glucose tolerance test On: :29 Request Clostridium difficile Toxin A+B, EIA (46279)Indication: Diarrhea On: 98-Rko-699328:04 Request Cologuard - Strool Based DNA Test, CRC SCREEN (47276)Indication: Encounter for screening for malignant neoplasm of colon (Renamed from Special screening for malignant neoplasms, colon) On: 29-Plc-045526:58 Request Lipid Panel ([id number])Indication: Other hyperlipidemia On: 86-Pyt-494254:58 Request CBC WITH MANUAL DIFF (70152)Indication: Other hyperlipidemia On: 35-Nos-956511:58 Request MICROALBUMIN: CREATININE RATIO (29523) AND ([id number])Indication: Other hyperlipidemia On: 99-Vif-810474:58 Request URINALYSIS (96597)Indication: Other hyperlipidemia On: 39-Sut-569483:58 Request TSH ([id number])Indication: Other hyperlipidemia On: 89-Ubl-153283:58 Request Metabolic Panel, Comprehensive (60317)Indication: Other hyperlipidemia On: 95-Noe-337526:57 Request GIARDIA LAMBLIA ANTIBODY (77031)Indication: Diarrhea (Renamed from D (diarrhea)) On: : Request WON CULTURE-STOOL ([id number])Indication: Diarrhea (Renamed from D (diarrhea)) On: : Request OCCULT BLOOD FECES SCREEN (50387)Indication: Diarrhea (Renamed from D (diarrhea)) On: : Request LEUKOCYTE COUNT, FECAL ([id number])Indication: Diarrhea (Renamed from D (diarrhea)) On: : Request C-DIFFICILE, STOOL ([id number])Indication: Diarrhea (Renamed from D (diarrhea)) On: : Request JTURU-[id number]-[id number] ([id number])Indication: Elevated AFP On: 7-Zml-336541: Request [id number]-LPOVJ ([id number])Indication: Elevated tumor markers On: :39 Request VITAMIN B12 AND FOLATES (63743)Indication: Other hyperlipidemia On: :39 Request CALCIFEDIOL (61491)Indication: Other hyperlipidemia On: 39 Request TSH (THYROID STIMULATING HORMONE) (96492)Indication: Other hyperlipidemia On: :39 Request LIPID PANEL (79064)Indication: Other hyperlipidemia On: :39 Request METABOLIC PANEL, COMPREHENSIVE (78804)Indication: Other hyperlipidemia On: 39 Request CBC, PLATELETS & AUT DIFF (96583)Indication: Other hyperlipidemia On: 39 Request CBC W/AUTO DIFF WBC ([id number])Indication: Abnormal glucose tolerance test On: :05 Request LIPID PANEL (92576)Indication: Other hyperlipidemia On: : Request METABOLIC PANEL, COMPREHENSIVE (09176)Indication: Abnormal glucose tolerance test On: :04 Request MICROALBUMIN: CREATININE RATIO (67146) AND ([id number])Indication: Abnormal glucose tolerance test On: : Request KCDSG-HFPFAYGBGPS-FUBOK ([id number])Indication: Other chronic nonalcoholic liver disease On: 65-Awf-374337:02 Request TSH ([id number])Indication: Depression On: 43-Ifm-827547:37 Request LIPID PANEL (89857)Indication: Hyperlipidemia, unspecified On: 60-Reh-815933:36 Request GDWSY-[id number]-KCYVY ([id number])Indication: Other chronic nonalcoholic liver disease On: 80-Ner-491287:35 Request CBC W/AUTO DIFF WBC ([id number])Indication: Abnormal glucose tolerance test On: 99-Qiq-295049:35 Request METABOLIC PANEL, COMPREHENSIVE (01004)Indication: Abnormal glucose tolerance test On: 14-Lct-223643:35 Request FECAL OCCULT HGB ASSAY- tubes sent home ([id number])Indication: Anemia, unspecified On: 31-Unw-992880:19 Request METABOLIC PANEL, COMPREHENSIVE (24088)Indication: Abnormal glucose tolerance test On: 06-Vny-189302:43 Request IRON ([id number])Indication: Anemia, unspecified On: 14-Qwo-535482:30 Request HgA1C , Office (87882)Indication: Abnormal glucose tolerance test On: 96-Ssc-387239:53 Request UPEP ([id number])Indication: Osteopenia On: 80-Gat-761322:50 Request SPEP ([id number])Indication: Osteopenia On: 01-Moz-325810:50 Request UPEP ([id number])Indication: Osteopenia On: 82-Edh-374475:13 Request SPEP ([id number])Indication: Osteopenia On: 25-Snu-041004:13 Request TSH ([id number])Indication: Osteopenia On: 63-Xtx-237677:23 Request PHOSPHORUS ([id number])Indication: Osteopenia On: 36-Wpv-337042:23 Request PARATHORMONE (21701)Indication: Osteopenia On: 26-Azw-997244:23 Request URINE CALCIUM OSAMR TIMED 24 Hour ([id number])Indication: Osteopenia On: 30-Cdx-702802:23 Request UPEP ([id number])Indication: Osteopenia On: 47-Lla-284347:23 Request SPEP ([id number])Indication: Osteopenia On: 82-Zbk-115643:23 Request C-DIFFICILE, STOOL ([id number])Indication: Clostridium difficile infection On: 7-Yum-995993:25 Request C-DIFFICILE, STOOL ([id number])Indication: Diarrhea (Renamed from D (diarrhea)) On: 21-Rwu-046690:57 Request WON CULTURE-STOOL ([id number])Indication: Diarrhea (Renamed from D (diarrhea)) On: 15-Jao-893606:06 Request C-DIFFICILE, STOOL ([id number])Indication: Diarrhea (Renamed from D (diarrhea)) On: 80-Vtm-066636:05 Request LEUKOCYTE COUNT, FECAL (53063)Indication: Diarrhea (Renamed from D (diarrhea)) On: 67-Cto-122098:05 Request OCCULT BLOOD FECES SCREEN ([id number])Indication: Diarrhea (Renamed from D (diarrhea)) On: :05 Request OVA & PARASITE DIR SMEAR ([id number])Indication: Diarrhea (Renamed from D (diarrhea)) On: :05 Request C DIFF AMPLIFIED PROBE ([id number])Indication: Diarrhea (Renamed from D (diarrhea)) On: 49-Ruj-829226:53 Request Rapid Flu ([id number] x 2)Indication: Symptom, Cough On: 3-Dds-664552:35 Request URINE WON CULTURE-OSMAR COL COUNT ([id number])Indication: Hematuria (Renamed from Blood in the urine) On: 7-Wtn-042849:28 Request Urinalysis, Office ([id number])Indication: Hematuria (Renamed from Blood in the urine) On: 8-Fkt-771608:00 Request HgA1C , Office (45811)Indication: Abnormal glucose tolerance test On: 35-Vwy-919173:31 Request IRON ([id number])Indication: Iron deficiency anemia, unspecified On: 34-Muu-553603:22 Request BACT CULTURE ANY-ANAEROBIC ([id number])Indication: CELLULITIS/ABSCESS, FOOT On: 58-Vra-927203:02 Request Comments: left ankle MICROALBUMIN: CREATININE RATIO ([id number]) AND ([id number])Indication: Abnormal glucose tolerance test On: :22 Request CBC WITH MANUAL DIFF ([id number])Indication: Abnormal glucose tolerance test On: :22 Request METABOLIC PANEL, COMPREHENSIVE (40928)Indication: Abnormal glucose tolerance test On: :22 Request Vitamin D Hydroxy (36305)Indication: Osteopenia On: 3-Lww-037910:21 Request HEPATIC FUNCTION PANEL ([id number])Indication: Hyperlipidemia, unspecified On: 9-Ain-256608:21 Request LIPID PANEL ([id number])Indication: Hyperlipidemia, unspecified On: 0-Ltc-243734:21 Request HEPATIC FUNCTION PANEL ([id number])Indication: Hyperlipidemia, unspecified On: 67-Vig-573308:47 Request LIPID PANEL ([id number])Indication: Hyperlipidemia, unspecified On: 59-Sap-216722:47 Request TSH ([id number])Indication: Other and unspecified disorders of circulatory system On: :41 Request METABOLIC PANEL, COMPREHENSIVE (68048)Indication: Abnormal glucose tolerance test On: :41 Request MICROALBUMIN: CREATININE RATIO ([id number]) AND ([id number])Indication: Abnormal glucose tolerance test On: :34 Request LIPID PANEL ([id number])Indication: Hyperlipidemia, unspecified On: :34 Request PT (Prothrobim Time) ([id number])Indication: Other and unspecified disorders of circulatory system On: :34 Request PTT (Activated Partial Thromboplastin Time) ([id number])Indication: Other and unspecified disorders of circulatory system On: :34 Request CBC WITH MANUAL DIFF ([id number])Indication: Other and unspecified disorders of circulatory system On: 01-Rfh-613324:34 Request HEPATIC FUNCTION PANEL ([id number])Indication: Hyperlipidemia, unspecified On: 24-Pnn-942032:17 Request LIPID PANEL (58929)Indication: Hyperlipidemia, unspecified On: 93-Bly-848360:17 Request UPEP ([id number])Indication: Osteopenia On: 54-Znr-294539:52 Request SPEP ([id number])Indication: Osteopenia On: 42-Suz-433554:51 Request PHOSPHORUS ([id number])Indication: Osteopenia On: 64-Yco-939789:51 Request PARATHORMONE (11947)Indication: Osteopenia On: 78-Nrz-500325:51 Request MICROALBUMIN: CREATININE RATIO ([id number]) AND ([id number])Indication: Abnormal glucose tolerance test On: 27-Mjh-705319:44 Request LIPID PANEL (85976)Indication: Hyperlipidemia, unspecified On: 26-Sov-783368:38 Request METABOLIC PANEL, COMPREHENSIVE ([id number])Indication: Abdominal pain, acute, generalized On: 31-Yav-364334:38 Request CBC WITH MANUAL DIFF ([id number])Indication: Abdominal pain, acute, generalized On: 85-Zgi-217684:38 Request TSH ([id number])Indication: Osteopenia On: 55-Fkh-783029:38 Request Vitamin D Hydroxy (78020)Indication: Osteopenia On: :38 Request LIPID PANEL ([id number])Indication: Other hyperlipidemia On: 73-Qxy-720221:33 Request GLUCOSE, PP/2 HOUR (00444)Indication: Fatigue On: :59 Request URINALYSIS W/O MICRO ([id number])Indication: Fatigue On: :58 Request TSH ([id number])Indication: Fatigue On: :58 Request CBC WITH MANUAL DIFF ([id number])Indication: Fatigue On: :58 Request METABOLIC PANEL, COMPREHENSIVE ([id number])Indication: Fatigue On: :58 Request Planned Encounters Medical; 6 Month FU - On: 17-Mar-2019 13:00 [facility] Jessica Tanner DO, DO, Kathleen Planned Procedures CHEST XRAY, PA & LATERAL On: 25-Nov-2018 Intent (00537)By: Nell Yeager CNP Solu -Medrol Injection, 125 mg On: 25-Nov-2018 Intent (J2930)By: Nell Yeager CNP ELECTROCARDIOGRAM, COMPLETE (ECG) On: 15-Sep-2018 Intent (16903)By: Jessica Tanner DO Comments: nsr no acute chg Jessica Tanner DO Spirometry (98926)By: Ciro JACQUES On: 15-Sep-2018 Intent Jessica Preston DO ORTHOSTATIC BLOOD PRESSURE On: 24-May-2018 Intent ASSESSMENT (33585)By: Ana M Christine LPN VAC ADLT/IMUMNOSPR, On: 28-Apr-2018 Intent SBC/INTRM (07700)By: Ciro JACQUES, Comments: pneumovax prefilled syringe injectionlot: [id number]: 12/2018R DELT IMpt tolerated wellAD Jessica Ward DO CYVO-VK-OMJZ BEHAVIORAL COUNSELING On: 28-Apr-2018 Intent FOR OBESITY, 15 MINUTES (G0447)By: Jessica Tanner DO, DO, Kathleen DEXA SCAN AXIAL SKELETON On: 28-Apr-2018 Intent (60765)By: Jessica Tanner DO, DO, Kathleen Flu Vaccine (Quadrivalent) On: 02-Aug-2017 Intent 42704Eo: Jessica Tanner DO Comments: InfluenzaLot #[id number]-04/25/18Site-L dltd, IMDose prefilled syringeVIS and ABN signedgiven by:INÉS lu DO, Kathleen LIJY-XD-OURP BEHAVIORAL COUNSELING On: 08-Apr-2017 Intent FOR OBESITY, 15 MINUTES (G0447)By: Jessica Tanner DO, DO, Kathleen ELECTROCARDIOGRAM, COMPLETE (ECG) On: 11-Mar-2017 Intent (73108)By: Jessica Tanner DO Comments: nsr no acute chg Jessica Tanner DO Aerosol Treatment ([id number])By: On: 22-Feb-2017 Intent Tamia Wood Comments: Lungs clear after aersol treatment. Radiology - ChestBy: Israel, On: 22-Feb-2017 Intent Tamia Aerosol Treatment (35202)By: On: 31-Dec-2016 Intent Tamia Wood Comments: Albuterol 0.083%relistened -more a/e Aerosol Treatment (48094)By: Ciesa On: 28-Oct-2016 Intent RAISA Soniya Aerosol Treatment (65942)By: On: 15-Oct-2016 Intent Jessica Tanner DO, DO, Comments: more a/e no wheeze less chest tightness Jessica CT - Abdomen & Pelvis (IV Contrast On: 15-Sep-2016 Intent Needed)By: Doug Barrett MD Comments: to be done 11/2016 Flu Vaccine (Quadrivalent) On: 02-Sep-2016 Intent 93763Up: Doug Barrett MD Comments: FLUlot: [id number]:05/07/17site:Lt deltoidroute:IMdose:.5mlBEBA PHAM Radiology - Chest- PA and LatBy: On: 05-May-2016 Intent Clemencia Ferreira DO A CT - Abdomen (IV Contrast On: 05-May-2016 Intent Needed)By: Clemencia Ferreira DO Comments: elevated alpha feto protein Radiology - Shoulder - LeftBy: On: 03-Jan-2016 Intent Clemencia Ferreira DO Flu Vaccine (Quadrivalent) On: 09-Aug-2015 Intent 63582Oz: Clemencia Ferreira DO Comments: Lot #:[id number] date: 04/2016Amount given:prefilled syringeSite given:L Dltd, IMGiven by: RAJ Taylor and ABN signed ADMINISTRATION OF INFLUENZA VIRUS On: 09-Aug-2015 Intent VACCINE (G0008)By: Clemencia Ferreira DO Aerosol Treatment (56150)By: Jhon On: 05-Jun-2015 Intent Clemencia JACQUES Solu- Medrol Injection, 125mg On: 05-Jun-2015 Intent (J2930)By: Clemencia Ferreira DO Comments: lot:[id number]:route:IMdose:125MGsite: R glutGiven by: VAMSI Watt MRI LIVER W CONTRAST (61367)By: On: 26-Apr-2015 Intent Clemencia Ferreira DO DEXA SCAN AXIAL SKELETON On: 05-Apr-2015 Intent (37999)By: Clemencia Ferreira DO Ultrasound - LiverBy: Jhon JACQUES, On: 05-Apr-2015 Intent Clemencia Enciso EKG (82594)By: Clemencia Ferreira DO On: 05-Apr-[address] - AbdomenBy: Clemencia Ferreira DO On: 07-Dec-2014 Intent Comments: attn liver - elevated alpha feto protein Aerosol Treatment (48280)By: Toy On: 05-Nov-2014 Intent AUTOPSY PATHOLOGIST, Soniya Prevnar 13 (42688)By: Cathy, On: 30-Aug-2014 Intent Nurse Comments: [id number] arm, IMas ADMINISTRATION OF INFLUENZA VIRUS On: 17-Aug-2014 Intent VACCINE (G0008)By: Clemencia Ferreira DO FLU VAC, SPLIT, >3 YEARS, On: 17-Aug-2014 Intent INTRAMUSC (78431)By: Jhon JACQUES, Comments: lot: [id number]: 05-07-15site/route: L del/IMamt: 0.5mLVIS signed when applicableChelsea, PROGRAM MANAGER ENVIRONMENTAL PLANNING Clemencia A Solu -Medrol Injection, 125 mg On: 13-Aug-2014 Intent (J2930)By: Toy Nell KLINE Aerosol Treatment (79779)By: Toy On: 13-Aug-2014 Intent Nell KLINE Ultrasound - LiverBy: Jhon JACQUES, On: 25-May-2014 Intent Clemencia A Aerosol Treatment (43827)By: Toy On: 26-Mar-2014 Intent Nell KLINE Aerosol Treatment (98779)By: Toy On: 26-Mar-2014 Intent Nell KLINE EKG (70637)By: Jhon JACQUES Clemencia A On: 16-Feb-2014 Intent Comments: ekg showed normal sinus rhythym, normal axis, no acute st/t wave changes Eprescribed prescriptions On: 16-Feb-2014 Intent (G8553)By: Otto Ferreira DOa A Eprescribed prescriptions On: 21-Nov-2013 Intent (G8553)By: Krsity Hinton Eprescribed prescriptions On: 19-Jul-2013 Intent (G8553)By: Brooke Conklin FLU VAC, SPLIT, >3 YEARS, On: 19-Jul-2013 Intent INTRAMUSC (93310)By: Rubin, Comments: Lot #:[id number] date:mount given:0.5mlRoute: IMSite given: L dltdVIS and ABN signedGiven by: BEBA Higgins ADMINISTRATION OF INFLUENZA VIRUS On: 19-Jul-2013 Intent VACCINE (G0008)By: Brooke Conklin CT - ChestBy: Fast DO, Clemencia A On: 01-Mar-2013 Intent PFT - CompleteBy: Fast DO, Clemencia A On: 01-Mar-2013 Intent Eprescribed prescriptions On: 01-Mar-2013 Intent (G8553)By: Brooke Conklin Toradol Injection, 30 mg On: 04-Jan-2013 Intent (J1885)By: Jessica Tanner DO Comments: Lot:[id number]:07/2014Dose:30mLRoute:IMSite:r hipGiven By:HUYEN signed Jessica Tanner DO Eprescribed prescriptions On: 20-Dec-2012 Intent (G8553)By: Clemencia Ferreira DO DXA, BONE DENSITY, AXIAL SKELETON On: 29-Nov-2012 Intent (47520)By: Clemencia Ferreira DO Eprescribed prescriptions On: 29-Nov-2012 Intent (G8553)By: Brooke Conklin Solu -Medrol Injection, 125 mg On: 23-Nov-2012 Intent (J2930)By: Essie Fletcher LPN Comments: Lot #[id number]-left hipDose- 125 mggiven by: Nito Fletcher LPN Eprescribed prescriptions On: 23-Nov-2012 Intent (G8553)By: Brooke Conklin Solu -Medrol Injection, 125 mg On: 21-Nov-2012 Intent (J2930)By: Clemencia Ferreira DO Comments: Lot: [id number]: mt: 125mgRoute: IMSite: R Gluteal without difficulty or c/o voiced. Given by: INÉS Benjamin Pulse Oximetry (47018)By: Rubin, On: 21-Nov-2012 Intent Brooke Comments: 93%- recheck 95 Eprescribed prescriptions On: 21-Nov-2012 Intent (G8553)By: Brooke Conklin Solu -Medrol Injection, 125 mg On: 18-Nov-2012 Intent (J2930)By: Tamia Roblero LPN Comments: pushed By Dr. Ciro aragon pt IV lot [id number] exp 04/22 Rocephon Injection, 2 Gm On: 18-Nov-2012 Intent (J0696)By: Tamia Roblero LPN Comments: IV initiated in: R ACwith 22 gaugenumber of attempts: x2 attempts, infiltrated in R FA on first attempt.Tolerated well: without c/o voiced.Rocephin Lot#[id number], exp03/21-2 gms in NS 100cc's infused without difficulty or c/o voiced. Solu- Medrol Injection, 125mg On: 17-Nov-2012 Intent (J2930)By: Jessica Tanner DO Comments: Lot #[id number]-4/15Site-right hipDose- 125 mggiven by: INÉS Fulleron Jessica JACQUES Eprescribed prescriptions On: 17-Nov-2012 Intent (G8553)By: Jessica Tanner DO, DO, Kathleen Rocephon Injection, 2 Gm On: 17-Nov-2012 Intent (J0696)By: Tamia Roblero LPN THER/PROPH/DIAG IV INF, INIT On: 16-Nov-2012 Intent (97970)By: Clemencia Ferreira DO Comments: lot # [id number]- 03/21site-Rantecubital fossaroute-IVdose- 2GCHenderson INÉS Solu -Medrol Injection, 125 mg On: 16-Nov-2012 Intent (J2930)By: Clemencia Ferreira DO Comments: Lot:[id number]:Dose:125mgRoute:IMSite:l hipGiven By:HUYEN signed INFUSION, NORMAL SALINE SOLUTION , On: 16-Nov-2012 Intent 250 CC (J7050)By: Clemencia Ferreira DO Rocephin Injection, 2 Gram On: 16-Nov-2012 Intent (J0696)By: Clemencia Ferreira DO Pulse Oximetry (02053)By: Rubin, On: 16-Nov-2012 Intent Brooke Comments: 95% Eprescribed prescriptions On: 16-Nov-2012 Intent (G8553)By: Brooke Conklin Aerosol Treatment (17249)By: Toy On: 09-Nov-2012 Intent Nell KLINE FLU VAC, SPLIT, >3 YEARS, On: 28-Sep-2012 Intent INTRAMUSC (36095)By: Toy KLINE, Comments: Lot:[id number]:6.30.13Dose:0.5mLRoute:IMSite:L DltdGiven By:Willie signed Nell Cerna ADMINISTRATION OF INFLUENZA VIRUS On: 28-Sep-2012 Intent VACCINE (G0008)By: Nell Yeager CNP SPECIMEN HANDLING/TRANSPORT On: 28-Sep-2012 Intent (74770)By: Elissa Wallace LPN SPECIMEN HANDLING/TRANSPORT On: 07-Sep-2012 Intent (86613)By: Elissa Wallace LPN Radiology - Chest- PA and LatBy: On: 08-Jun-2012 Intent Clemencia Ferreira DO [place] VACC, [place] (42846)By: On: 28-Apr-2012 Intent Brooke Conklin Comments: pt received at [facility] 04/2012 Eprescribed prescriptions On: 20-Apr-2012 Intent (G8553)By: Otto Ferreira DOa A EKG (14858)By: Brooke Conklin On: 20-Apr-2012 Intent Comments: ekg showed normal sinus rhythym, normal axis, no acute st/t wave changes Spirometry (19328)By: Rubin, On: 20-Apr-2012 Intent Brooke Comments: good effort and curve normal Eprescribed prescriptions On: 16-Mar-2012 Intent (G8553)By: Jhon DO Clemencia A Eprescribed prescriptions On: 16-Mar-2012 Intent (G8553)By: Jhon DO Clemencia A Eprescribed prescriptions On: 29-Jan-2012 Intent (G8553)By: Jhon JACQUES Clemencia A Eprescribed prescriptions On: 27-Nov-2011 Intent (G8553)By: Jessica Tanenr DO CiroJessica rodriguez DO PNEUM VAC ADLT/IMUMNOSPR, On: 19-Aug-2011 Intent SBC/INTRM (09344)By: Rubin, Comments: Lot #:[id number] date:mount given:0.5mlRoute: IMSite given:left deltGiven by: BEBA Higgins ADMINISTRATION OF PNEUMOCOCCAL On: 19-Aug-2011 Intent VACCINE (G0009)By: Brooke Conklin ADMINISTRATION OF INFLUENZA VIRUS On: 04-Aug-2011 Intent VACCINE (G0008)By: Brooke Conklin FLU VAC, SPLIT, >3 YEARS, On: 04-Aug-2011 Intent INTRAMUSC (28687)By: Brooke Conklin Radiology - Chest- PA and LatBy: On: 30-Jan-2011 Intent Clemencia Ferreira DO Aerosol Treatment (65515)By: Ciesa On: 10-Nov-2010 Intent Nell KLINE Pulse Oximetry (54225)By: Ciesa On: 10-Nov-2010 Intent Nell KLINE TDAP VACCINE >7 IM (09007)By: Ron On: 21-Oct-2010 Intent Carla CONTE Comments: Lot #[id number]/13Site-L arm, IMDose prefilled syringegiven by:LISA Radiology - Chest- PA and LatBy: On: 07-Oct-2010 Intent Clemencia Ferreira DO Spirometry (58721)By: Rubin, On: 07-Oct-2010 Intent Brooke Comments: good effort and curve normal DXA, BONE DENSITY, AXIAL SKELETON On: 07-Oct-2010 Intent (60363)By: Clemencia Ferreira DO Comments: nov IMMUNIZ ADMNIN, 1 VAC, SNGL/COMBO On: 07-Oct-2010 Intent (23568)By: Brooke Conklin Comments: Lot #[id number]-2/11Site-L armDose0.5mlgiven by:LISA FLU VAC, SPLIT, >3 YEARS, On: 07-Oct-2010 Intent INTRAMUSC (62704)By: Brooke Conklin Solu -Medrol Injection, 125 mg On: 06-Aug-2010 Intent (J2930)By: Toy KLINE Soniya Pulse Oximetry (78839)By: Toy On: 06-Aug-2010 Intent Nell KLINE Aerosol Treatment (13743)By: Toy On: 06-Aug-2010 Intent Nell KLINE EKG (83093)By: Clemencia Ferreira DO On: 07-Jul-2010 Intent Comments: ekg showed normal sinus rhythym, normal axis, no acute st/t wave changes EKG (19429)By: Brooke Conklin On: 03-Apr-2010 Intent Comments: ekg showed normal sinus rhythym, normal axis, no acute st/t wave changes FLU VAC, SPLIT, >3 YEARS, On: 05-Aug-2009 Intent INTRAMUSC (08901)By: Rubin, Comments: Lot #:[id number] date:mount given:0.5mlRoute: IMSite given:left deltGiven by: BEBA Higgins IMMUNIZ ADMNIN, 1 VAC, SNGL/COMBO On: 05-Aug-2009 Intent (49540)By: Brooke Conklin Solu -Medrol Injection, 125 mg On: 04-Jul-2009 Intent (J2930)By: Nell Yeager CNP Comments: Lot #: [id number] date: 02/17Amount given: 125 mg/2 mlRoute: IMSite given: Right hipGiven by: Fernie Singleton LPN Spirometry (12449)By: Rubin, On: 07-May-2009 Intent Brooke Comments: good effort and curve normal Ultrasound - PelvisBy: Jhon DO, On: 04-Feb-2009 Intent Clemencia Fernie Radiology - ChestBy: Fast DO, On: 04-Feb-2009 Intent Clemencia A Comments: pa and lat Pulse Oximetry ([id number])By: Toy On: 30-Jan-2009 Intent Nell KLINE Aerosol Treatment ([id number])By: Toy On: 30-Jan-2009 Intent Nell KLINE EKG ([id number])By: Brooke Conklin On: 18-Dec-2008 Intent Comments: ekg showed normal sinus rhythym, normal axis, no acute st/t wave changes DXA, BONE DENSITY, AXIAL SKELETON On: 07-Sep-2008 Intent ([id number])By: Clemencia Ferreira DO FLU VAC, SPLIT, >3 YEARS, On: 07-Sep-2008 Intent INTRAMUSC ([id number])By: Rubin, Comments: Lot #:[id number] date:04/16Amount given:0.5mlRoute: IMSite given:left delGiven by: BEBA Higgins IMMUNIZ ADMNIN, 1 VAC, SNGL/COMBO On: 07-Sep-2008 Intent ([id number])By: Brooke Conklin Radiology - Knee - Left - Weight On: 30-Jul-2008 Intent BearingBy: Otto Ferreira DOa A Comments: with sunrise view Spirometry ([id number])By: Rubin On: 06-Mar-2008 Intent Brooke Comments: good effort and curve normal Pulse Oximetry ([id number])By: Rubin, On: 06-Mar-2008 Intent Brooke Comments: 98% Aerosol Treatment ([id number])By: On: 13-Feb-2008 Intent Jessica Tanner DO, DO, Kathleen Solu- Medrol Injection, 125mg On: 13-Feb-2008 Intent ([id number])By: Jessica Tanner DO Comments: Lot #: [id number] date: mount given: 125 mg/2 mlRoute: IMSite given: Right hipGiven by: INÉS Sabillon DO, Kathleen Pulse Oximetry ([id number])By: Khai, On: 13-Feb-2008 Intent KRISHNA EKG ([id number])By: Brooke Conklin On: 29-Nov-2007 Intent Comments: ekg showed normal sinus rhythym, normal axis, no acute st/t wave changes IMMUNIZ ADMNIN, 1 VAC, SNGL/COMBO On: 02-Sep-2007 Intent ([id number])By: Kenia Fernandez FLU VAC, SPLIT, >3 YEARS, On: 02-Sep-2007 Intent INTRAMUSC ([id number])By: Kenia Fernandez Radiology - Chest- PA and LatBy: On: 09-Aug-2007 Intent Clemencia Ferreira DO Spirometry ([id number])By: Jhon JACQUES, On: 09-Aug-2007 Intent Clemencia Fernie Comments: good effort and curve with mild airway obstruction Pneumovax ([id number])By: Jhon JACQUES, On: 09-Aug-2007 Intent Clemencia A Comments: given im in left deltoid lot #[id number] exp.09/02/08-aw EKG ([id number])By: Clemencia Ferreira DO On: 20-Oct-2006 Intent Comments: ekg showed normal sinus rhythym, normal axis, no acute st/t wave changes PNEUM VAC ADLT/IMUMNOSPR, On: 27-Sep-2006 Intent SBC/INTRM ([id number])By: KRISHNA Ridley IMMUNIZ ADMNIN, 1 VAC, SNGL/COMBO On: 27-Sep-2006 Intent ([id number])By: KRISHNA Ridley FLU VAC, SPLIT, >3 YEARS, On: 23-Sep-2006 Intent INTRAMUSC ([id number])By: Kenia Jauregui IMMUNIZ ADMNIN, 1 VAC, SNGL/COMBO On: 23-Sep-2006 Intent ([id number])By: Kenia Jauregui Spirometry ([id number])By: Jhon DO, On: 22-Sep-2006 Intent Clemencia A Comments: was normal with normal curve and effort -but pt with a definitive bronchospastic cough Overnight Pulse OX ([id number])By: Jhon On: 22-Sep-2006 Intent DO, Clemencia A Planned Medications INFUSION, NORMAL SALINE SOLUTION , 250 CC Ordered: 16-Nov-2012 Pending Fast DO, Clemencia A INJECTION, CEFTRIAXONE SODIUM, PER 250 MG Ordered: 16-Nov-2012 Pending Fast DO, Clemencia A INJECTION, CEFTRIAXONE SODIUM, PER 250 MG Ordered: 17-Nov-2012 Pending Tamia Roblero LPN INJECTION, CEFTRIAXONE SODIUM, PER 250 MG Ordered: 18-Nov-2012 Pending Tamia Roblero LPN INJECTION, KETOROLAC TROMETHAMINE, PER 15 MG Ordered: 04-Jan-2013 Pending Ciro JACQUES, Jessica Ciro DO, Jessica INJECTION, METHYLPREDNISOLONE SODIUM SUCCINATE, UP TO 125 MG Ordered: 16-Nov-2012 Pending Fast DO, Clemencia A INJECTION, METHYLPREDNISOLONE SODIUM SUCCINATE, UP TO 125 MG Ordered: 17-Nov-2012 Pending Ciro DO, Jessica Ciro DO, Jessica INJECTION, METHYLPREDNISOLONE SODIUM SUCCINATE, UP TO 125 MG Ordered: 18-Nov-2012 Pending Tamia Roblero [employer] INJECTION, METHYLPREDNISOLONE SODIUM SUCCINATE, UP TO 125 MG Ordered: 21-Nov-2012 Pending Fast DO, Clemencia A INJECTION, METHYLPREDNISOLONE SODIUM SUCCINATE, UP TO 125 MG Ordered: 23-Nov-2012 Pending Essie Fletcher LPN INJECTION, METHYLPREDNISOLONE SODIUM SUCCINATE, UP TO 125 MG Ordered: 13-Aug-2014 Pending Nell Yeager CNP INJECTION, METHYLPREDNISOLONE SODIUM SUCCINATE, UP TO 125 MG Ordered: 05-Jun-2015 Pending Fast DO, Clemencia A INJECTION, METHYLPREDNISOLONE SODIUM SUCCINATE, UP TO 125 MG Ordered: 25-Nov-2018 Pending Nell Yeager CNP Instructions Name Dates Details BMI 31.0-31.9,adult : How to access health information online Indication: BMI 31.0-31.9,adult BMI 31.0-31.9,adult : How to access health information online - Detail Indication: BMI 31.0-31.9,adult BMI 31.0-31.9,adult : Patient Instructions Indication: BMI 31.0-31.9,adult Nonsmoker : How to access health information online Indication: Nonsmoker Nonsmoker : How to access health information online - Detail Indication: Nonsmoker Nonsmoker : Patient Instructions Indication: Nonsmoker BMI 30.0-30.9,adult : How to access health information online - Detail Indication: BMI 30.0-30.9,adult BMI 30.0-30.9,adult : How to access health information online Indication: BMI 30.0-30.9,adult BMI 30.0-30.9,adult : Patient Instructions Indication: BMI 30.0-30.9,adult Nonsmoker : How to access health information online Indication: Nonsmoker Nonsmoker : Patient Instructions Indication: Nonsmoker Nonsmoker : How to access health information online Indication: Nonsmoker Nonsmoker : How to access health information online - Detail Indication: Nonsmoker Diarrhea : Patient Instructions Indication: Diarrhea Obstructive sleep apnea, adult : obesity counseling Indication: Obstructive sleep apnea, adult Nonsmoker : How to access health information online - Detail Indication: Nonsmoker Nonsmoker : How to access health information online - Detail Indication: Nonsmoker Nonsmoker : Patient Instructions Indication: Nonsmoker Abnormal glucose tolerance test : How to access health information online Indication: Abnormal glucose tolerance test Abnormal glucose tolerance test : How to access health information online - Detail Indication: Abnormal glucose tolerance test Abnormal glucose tolerance test : Patient Instructions Indication: Abnormal glucose tolerance test Nonsmoker : How to access health information online Indication: Nonsmoker Nonsmoker : How to access health information online - Detail Indication: Nonsmoker Nonsmoker : Patient Instructions Indication: Nonsmoker Abnormal glucose tolerance test : How to access health information online Indication: Abnormal glucose tolerance test Abnormal glucose tolerance test : How to access health information online - Detail Indication: Abnormal glucose tolerance test Abnormal glucose tolerance test : Patient Instructions Indication: Abnormal glucose tolerance test Cat bite : How to access health information online Indication: Cat bite Cat bite : How to access health information online - Detail Indication: Cat bite Cat bite : Patient Instructions Indication: Cat bite Cat bite : How to access health information online Indication: Cat bite Cat bite : How to access health information online - Detail Indication: Cat bite Cat bite : Patient Instructions Indication: Cat bite Abnormal glucose tolerance test : How to access health information online Indication: Abnormal glucose tolerance test Abnormal glucose tolerance test : How to access health information online - Detail Indication: Abnormal glucose tolerance test Abnormal glucose tolerance test : Patient Instructions Indication: Abnormal glucose tolerance test BMI 30.0-30.9,adult : How to access health information online Indication: BMI 30.0-30.9,adult BMI 30.0-30.9,adult : How to access health information online - Detail Indication: BMI 30.0-30.9,adult BMI 30.0-30.9,adult : Patient Instructions Indication: BMI 30.0-30.9,adult Other hyperlipidemia : obesity counseling Indication: Other hyperlipidemia Nonsmoker : How to access health information online Indication: Nonsmoker Nonsmoker : How to access health information online - Detail Indication: Nonsmoker Nonsmoker : Patient Instructions Indication: Nonsmoker BMI 30.0-30.9,adult : How to access health information online Indication: BMI 30.0-30.9,adult BMI 30.0-30.9,adult : How to access health information online - Detail Indication: BMI 30.0-30.9,adult BMI 30.0-30.9,adult : Patient Instructions Indication: BMI 30.0-30.9,adult Cough : How to access health information online Indication: Cough Cough : How to access health information online - Detail Indication: Cough Cough : Patient Instructions Indication: Cough Nonsmoker : How to access health information online Indication: Nonsmoker Nonsmoker : How to access health information online - Detail Indication: Nonsmoker Nonsmoker : Patient Instructions Indication: Nonsmoker Chronic obstructive asthma with acute exacerbation (Renamed from Chronic obstructive asthma with exacerbation) : How to access health information online Indication: Chronic obstructive asthma with acute exacerbation (Renamed from Chronic obstructive asthma with exacerbation) Chronic obstructive asthma with acute exacerbation (Renamed from Chronic obstructive asthma with exacerbation) : How to access health information online - Detail Indication: Chronic obstructive asthma with acute exacerbation (Renamed from Chronic obstructive asthma with exacerbation) Chronic obstructive asthma with acute exacerbation (Renamed from Chronic obstructive asthma with exacerbation) : Patient Instructions Indication: Chronic obstructive asthma with acute exacerbation (Renamed from Chronic obstructive asthma with exacerbation) Nonsmoker : How to access health information online Indication: Nonsmoker Nonsmoker : How to access health information online - Detail Indication: Nonsmoker Nonsmoker : Patient Instructions Indication: Nonsmoker Nonsmoker : How to access health information online Indication: Nonsmoker Nonsmoker : How to access health information online - Detail Indication: Nonsmoker Cough : How to access health information online Indication: Cough Cough : How to access health information online - Detail Indication: Cough Cough : Patient Instructions Indication: Cough Symptom, Cough : How to access health information online Indication: Symptom, Cough Symptom, Cough : How to access health information online - Detail Indication: Symptom, Cough Symptom, Cough : Patient Instructions Indication: Symptom, Cough Irritable bowel syndrome (Renamed from Functional bowel disease) : Patient Instructions Indication: Irritable bowel syndrome (Renamed from Functional bowel disease) Abnormal glucose tolerance test : How to access health information online Indication: Abnormal glucose tolerance test Abnormal glucose tolerance test : How to access health information online - Detail Indication: Abnormal glucose tolerance test Abnormal glucose tolerance test : Patient Instructions Indication: Abnormal glucose tolerance test Abnormal glucose tolerance test : How to access health information online Indication: Abnormal glucose tolerance test Abnormal glucose tolerance test : How to access health information online - Detail Indication: Abnormal glucose tolerance test Abnormal glucose tolerance test : Patient Instructions Indication: Abnormal glucose tolerance test Abnormal glucose tolerance test : How to access health information online Indication: Abnormal glucose tolerance test Abnormal glucose tolerance test : How to access health information online - Detail Indication: Abnormal glucose tolerance test Abnormal glucose tolerance test : Patient Instructions Indication: Abnormal glucose tolerance test Abnormal glucose tolerance test : How to access health information online Indication: Abnormal glucose tolerance test Abnormal glucose tolerance test : How to access health information online - Detail Indication: Abnormal glucose tolerance test Abnormal glucose tolerance test : Patient Instructions Indication: Abnormal glucose tolerance test Upper respiratory infection (Renamed from Infection of the upper respiratory tract) : How to access health information online Indication: Upper respiratory infection (Renamed from Infection of the upper respiratory tract) Upper respiratory infection (Renamed from Infection of the upper respiratory tract) : How to access health information online - Detail Indication: Upper respiratory infection (Renamed from Infection of the upper respiratory tract) Upper respiratory infection (Renamed from Infection of the upper respiratory tract) : Patient Instructions Indication: Upper respiratory infection (Renamed from Infection of the upper respiratory tract) Abnormal glucose tolerance test : Patient Instructions Indication: Abnormal glucose tolerance test Abnormal glucose tolerance test : Patient Instructions Indication: Abnormal glucose tolerance test Abnormal glucose tolerance test : How to access health information online Indication: Abnormal glucose tolerance test Abnormal glucose tolerance test : How to access health information online - Detail Indication: Abnormal glucose tolerance test Abnormal glucose tolerance test : Patient Instructions Indication: Abnormal glucose tolerance test Other chronic nonalcoholic liver disease : How to access health information online Indication: 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 : How to access health information online - Detail Indication: Other chronic nonalcoholic liver disease Abnormal glucose tolerance test : Patient Instructions Indication: Abnormal glucose tolerance test Abnormal glucose tolerance test : Patient Instructions Indication: Abnormal glucose tolerance test Abnormal glucose tolerance test : Patient Instructions Indication: Abnormal glucose tolerance test Abnormal glucose tolerance test : Patient Instructions Indication: Abnormal glucose tolerance test Asthma, intrinsic, with status asthmaticus : Patient Instructions Indication: Asthma, intrinsic, with status asthmaticus Symptom, Cough : Patient Instructions Indication: Symptom, Cough Diarrhea (Renamed from D (diarrhea)) : Patient Instructions Indication: Diarrhea (Renamed from D (diarrhea)) Clostridium difficile diarrhea (Renamed from C. difficile diarrhea) : Patient Instructions Indication: Clostridium difficile diarrhea (Renamed from C. difficile diarrhea) Diarrhea (Renamed from D (diarrhea)) : Patient Instructions Indication: Diarrhea (Renamed from D (diarrhea)) Hematuria (Renamed from Blood in the urine) : Patient Instructions Indication: Hematuria (Renamed from Blood in the urine) Symptom, Cough : Patient Instructions Indication: Symptom, Cough Unspecified bacterial pneumonia : Patient Instructions Indication: Unspecified bacterial pneumonia Unspecified bacterial pneumonia : Patient Instructions Indication: Unspecified bacterial pneumonia Symptom, Cough : Patient Instructions Indication: Symptom, Cough Symptom, Cough : Patient Instructions Indication: Symptom, Cough Hematuria (Renamed from Blood in the urine) : Patient Instructions Indication: Hematuria (Renamed from Blood in the urine) Hematuria (Renamed from Blood in the urine) : Patient Instructions Indication: Hematuria (Renamed from Blood in the urine) Encounters Office Visit On: 25-Nov-2018 10:28 Encounter Reason: Cough - Symptoms include cough, runny nose and stuffy nose. The cough is described as productive. Cough onset was 1 month(s) ago. Associated symptoms include hoarseness. Note for Cough: Has had a edgard End: 25-Nov-2018 11:17 h of coughing and drainage, Dec went to ER and was told viral URI, given short prednison, but did not improve and to [facility] added Z reji and breathing treatments, some improvement but cough returned 1 ? wee l after antibiotic.This time does not want antibiotic unless necessaryEncounter Diagnosis: Nonsmoker, BMI 31.0-31.9,adult, Chronic obstructive asthma with acute exacerbation (Renamed from Chronic obstructive asthma with exacerbation), History of Clostridium difficile colitis [facility] Office Visit On: 02-Nov-2018 13:39 Encounter Reason: Follow up ER - Reason for hospitalization note: (URI). Note for Follow up ER: ToER on 10-29 because could not get breath, was tested for flu, neg and chestxray neg for infiltrates, was given duoneb an End: 02-Nov-2018 14:24 d albut MDA for her home nebulizer, on prednisone now, diagnosed with asthmatic bronchitis. Has not improvedEncounter Diagnosis: Nonsmoker, BMI 31.0-31.9,adult, Upper respiratory infection (Renamed from Infection of the upper respiratory tract), Cough [facility] Office Visit On: 15-Sep-2018 10:43 Encounter Reason: Follow up for chronic medical issues - The patient feels well with minor complaints (cough -- get coughing spellsHad a sinus flare up and went to [place] -- been home and fine other than the coughing sp End: 15-Sep-2018 14:55 ells. First sx were sore throat and drainage -- that was the second/third week in Jul), has good energy level and is sleeping well. Patient has been compliant with instructions. Current medication use : no side effects and compliant with dosing regimen. Patient sleeps 9 hours per night. Nutrition: balanced diet and supplemental vitamins. The medical issues the patient is following up for include All identified problems below and blood sugar issues. weight :.Encounter Diagnosis: Nonsmoker, BMI 30.0-30.9,adult, Abnormal glucose tolerance test, Other hyperlipidemia, Cough, Other chronic nonalcoholic liver disease, Asthma, Obstructive sleep apnea, adult, Breast cancer, Gastric reflux syndrome, Depression [facility] Office Visit On: 26-May-2018 10:10 Encounter Reason: Follow up tests - Date: (05/12/18 dexa).Encounter Diagnosis: BMI 31.0-31.9,adult, Nonsmoker, Osteopenia, Diarrhea End: 26-May-2018 10:48 [facility] Office Visit On: 24-May-2018 9:45 Encounter Reason: Diarrhea - Adult - Symptoms include diarrhea, fecal urgency and abdominal cramps. The stools are described as loose, watery and bloody (a tinge of pink when wiping). Onset was 3 day(s) ago. Onset follow End: 24-May-2018 10:31 ed new medication (amoxicillin). The symptoms occur intermittently. This is described as unchanged. Previous presentation included diarrhea and abdominal bloating. Note for Diarrhea: Noticed a sore in my mouth next to implant post-thought maybe it was getting infected so took 4 Amoxicillin 500mg tablets that were given by Dentist. Took it just one time and then diarrhea started 1-2 days ago. Watery diarrhea-more clear, not an awful odor. History of CDIFF. Some abd pain when diarrhea first started-but now no. Just want to make sure no cdiff. No fever, chills, SOB, CP. Uses prescription mouthwash to help kill bacteria from dentist. Encounter Diagnosis: Diarrhea, Nonsmoker, BMI 30.0-30.9,adult, Sore gums, History of Clostridium difficile infection [facility] Office Visit On: 28-Apr-2018 10:08 Encounter Reason: Annual Medicare Exam - The patient had reviewed and updated the family history, medication/s, past medical history and social history. Yes the patient did have a mini mental status exam done today. The End: 28-Apr-2018 11:38 activities of daily living the patient needs help with are none. The patient has had urinary incontinence, driven in past 6 months, fallen in the past 6 months, put area rugs through house and put handr ails in bathroom, but the patient has not had fecal incontinence, missed or ran out of medications to soon, gotten lost or has a medalert necklace or bracelet. The patient has completed the following pr eventative measures: mammography (had b/l removed) and colonoscopy (yrs). The patient does not have durable power of deputy county attorney or living will. The patient has noticed nothing from the geriatic depression scale. Other providers contributing to the patient's care are business division chair, gastrologist, plans examiner and surgeon.Encounter Diagnosis: Nonsmoker, BMI 30.0-30.9,adult, Annual Medicare Phyiscal WITHOUT abnormal findings (Renamed from Encounter for general adult medical examination without abnormal findings), Encounter for screening mammogram for breast cancer (Renamed from Encounter for screening mammogram f or malignant neoplasm of breast), Postmenopausal (Renamed from Postmenopausal status), Encounter for screening for malignant neoplasm of colon (Renamed from Special screening for malignant neoplasms, colon), Obstructive sleep apnea, adult, Nutritional counseling [facility] Office Visit On: 14-Apr-2018 9:34 Encounter Reason: Follow up tests - Date: (04/11/18)., [ADDITIONAL REASON] Follow up for chronic medical issues - The patient feels well with minor complai End: 14-Apr-2018 11:06 nts (aches and pains), has good energy level and is sleeping well. Patient has been compliant with instructions. Current medication use: no side effects and compliant with dosing regimen. Patient sleeps 9 hours per night. Nutrition: balanced diet and supplemental vitamins. The medical issues the patient is following up for include All identified problems below and blood sugar issues. weight :. Encounter Diagnosis: BMI 30.0-30.9,adult, Nonsmoker, Abnormal glucose tolerance test, Other hyperlipidemia, Obstructive sleep apnea, adult, Asthma, Anemia, blood loss, Depression [facility] Phone Encounter On: 01-Apr-2018 10:55 Encounter Diagnosis: Other hyperlipidemia End: 01-Apr-2018 10:59 [facility] Office Visit On: 01-Apr-2018 10:21 Encounter Reason: RLS - it started a week ago and its is only at nightEncounter Diagnosis: BMI 30.0-30.9,adult, Nonsmoker, RLS (restless legs syndrome), Dry mouth End: 01-Apr-2018 10:54 [facility] Office Visit On: 12-Nov-2017 12:27 Encounter Reason: Follow up for chronic medical issues - The patient feels well with minor complaints, has good energy level and is sleeping well. Patient has been compliant with instructions. Current medication use: no End: 12-Nov-2017 13:50 side effects and compliant with dosing regimen. Patient sleeps 9 hours per night. Nutrition: balanced diet and supplemental vitamins. The medical issues the patient is following up for include All ident ified problems below and blood sugar issues. weight :.Encounter Diagnosis: Abnormal glucose tolerance test, BMI 30.0-30.9,adult, Nonsmoker, Cat bite, Asthma, Gastric reflux syndrome, Depression [facility] Office Visit On: 03-Nov-2017 11:56 Encounter Reason: Follow up acute care visit - The patient improving. The medical issues the patient is following up for include other (cat bite). Note for Follow up acute care visit: Follow up from last week, cat bite End: 03-Nov-2017 12:23 and cellulitis improving on antibioticEncounter Diagnosis: BMI 30.0-30.9,adult, Cat bite, Nonsmoker, Cellulitis [facility] Annotation/Addendum On: 29-Oct-2017 13:17 Encounter Diagnosis: Cellulitis End: 29-Oct-2017 13:20 [facility] Office Visit On: 29-Oct-2017 10:07 Encounter Reason: Skin Lesions - Symptoms include single skin lesion. Lesion(s) are located on the left leg. The patient describes the lesion(s) as draining, painful, raised, black and red. Onset was 2 day(s) ago. Onset End: 29-Oct-2017 11:03 followed skin trauma (cat bite). The symptoms occur constantly. The patient describes this as worsening. Presentation included erythema and pain.Encounter Diagnosis: Nonsmoker, BMI 30.0-30.9,adult, Cat bite, History of Clostridium difficile colitis [facility] Office Visit On: 02-Aug-2017 10:43 Encounter Reason: Injections - The medication the patient is here to receive is other (flu shot).Encounter Diagnosis: Need for prophylactic vaccination and inoculation against influenza (Renamed from Need for immunization against influenza) End: 02-Aug-2017 12:44 [facility] Office Visit On: 09-Jul-2017 14:20 Encounter Reason: Follow up for chronic medical issues - The patient does not feel well, has decreased energy level and is sleeping well. Patient has been compliant with instructions. Current medication use: no side effe End: 09-Jul-2017 15:56 cts and compliant with dosing regimen. Patient sleeps 7 hours per night. Nutrition: balanced diet and supplemental vitamins. The medical issues the patient is following up for include All identified pro blems below, blood sugar issues, COPD, high blood pressure, high cholesterol and other. weight :.Encounter Diagnosis: Nonsmoker, Abnormal glucose tolerance test, BMI 29.0-29.9,adult, Obstructive sleep apnea, adult, Asthma, Other hyperlipidemia, Other chronic nonalcoholic liver disease, Sinusitis, bacterial [facility] Office Visit On: 15-Apr-2017 7:42 Encounter Reason: Skin LesionsEncounter Diagnosis: Nonsmoker, BMI 30.0-30.9,adult, Skin lesion End: 15-Apr-2017 10:18 [facility] Visit On: 08-Apr-2017 12:56 Encounter Reason: Annual Medicare Exam - The patient had reviewed and updated the family history, medication/s, past medical history and social history. Yes the patient did have a mini mental status exam done today. The End: 08-Apr-2017 13:44 activities of daily living the patient needs help with are none. The patient has had urinary incontinence, driven in past 6 months, fallen in the past 6 months, put area rugs through house and put handr ails in bathroom, but the patient has not had fecal incontinence, missed or ran out of medications to soon, gotten lost or has a medalert necklace or bracelet. The patient has completed the following pr eventative measures: PAP smear (1 yr), mammography (had b/l removed) and colonoscopy (less then 10 yrs). The patient does not have durable power of deputy county attorney or living will. The patient has noticed nothi ng from the geriatic depression scale. Other providers contributing to the patient's care are business division chair, gastrologist and plans examiner.Encounter Diagnosis: BMI 30.0-30.9,adult, Nonsmoker, Gastric reflux syndrome, Annual Medicare Phyiscal WITHOUT abnormal findings (Renamed from Encounter for general adult medical examination without abnormal findings), Encounter for screening mammogram for breast cancer (Renamed from Encounter for screening mammogram f or malignant neoplasm of breast), Postmenopausal (Renamed from Postmenopausal status), Encounter for screening for malignant neoplasm of colon (Renamed from Special screening for malignant neoplasms, colon), Other hyperlipidemia [facility] Visit On: 11-Mar-2017 12:42 Encounter Reason: Follow up tests - Date: (03/04/17 labs)., [ADDITIONAL REASON] Follow up for chronic medical issues - The patient feels well with minor complai End: 11-Mar-2017 15:07 nts, has good energy level and is sleeping well. Patient has been compliant with instructions. Current medication use: no side effects and compliant with dosing regimen. Patient sleeps 7 hours per night . Nutrition: balanced diet and supplemental vitamins. The medical issues the patient is following up for include All identified problems below, blood sugar issues, COPD, high blood pressure, high cholesterol and other. weight :. Encounter Diagnosis: Abnormal glucose tolerance test, Nonsmoker, BMI 30.0-30.9,adult, Irritable bowel syndrome (Renamed from Functional bowel disease), Asthma, Obstructive sleep apnea, adult, Gastric reflux syndrome, Other hyperlipidemia [facility] Visit On: 22-Feb-2017 10:21 Encounter Reason: Cough - Symptoms include cough. The cough is described as productive (white). Cough onset was sudden 1 month(s) ago. The cough occurs intermittently. Symptoms are described as unchanged. Symptoms are ex End: 22-Feb-2017 11:08 acerbated by lying down. Previous presentation included a cough.Encounter Diagnosis: Cough, Nonsmoker, BMI 31.0-31.9,adult, Post-nasal drainage, Chronic obstructive asthma with acute exacerbation (Renamed from Chronic obstructive asthma with exac erbation) [facility] Visit On: 06-Jan-2017 13:06 Encounter Reason: Diarrhea - The onset of the diarrhea has been sudden and has been occurring in a persistent pattern for 3 days. The course has been constant. The stools are watery. The volume of the stools is normal. T End: 07-Jan-2017 9:10 he symptoms have been associated with abdominal pain, while the symptoms have not been associated with vomiting.Encounter Diagnosis: BMI 32.0-32.9,adult, Nonsmoker, Diarrhea (Renamed from D (diarrhea)) [facility] Annotation/Addendum On: 01-Jan-2017 15:23 Encounter Diagnosis: Unspecified Diagnosis End: 01-Jan-2017 15:27 [facility] Visit On: 31-Dec-2016 10:19 Encounter Reason: Cough - Symptoms include cough, dyspnea, runny nose and sore throat (scratchy). The cough is described as dry. Symptoms are described as worsening. Associated symptoms include postnasal drainage. Previo End: 31-Dec-2016 12:30 us presentation included a cough, a runny nose, dyspnea and a sore throat (scratchy).Encounter Diagnosis: Nonsmoker, BMI 32.0-32.9,adult, Cough, Chronic obstructive asthma with acute exacerbation (Renamed from Chronic obstructive asthma with exac erbation), Allergic Rhinitis(477.9) [facility] Visit On: 10-Dec-2016 10:42 Encounter Reason: Follow up for chronic medical issues - Patient has been compliant with instructions. Current medication use: no side effects and compliant with dosing regimen. Patient sleeps 8 hours per night. Nutritio End: 10-Dec-2016 15:27 n: balanced diet and supplemental vitamins. The medical issues the patient is following up for include asthma, blood sugar issues, depression, gastric reflux and high cholesterol. Note for Follow up fo r chronic medical issues: shoulder pain is gone- she saw Rene and he wants alpha feto protein every [address] this monht-no gerd no bronchitis and breathing ahs been goodEncounter Diagnosis: BMI 32.0-32.9,adult, Nonsmoker, Abnormal glucose tolerance test, Elevated AFP, Obstructive sleep apnea, adult, Depression, Breast cancer, Chronic obstructive asthma with acute exacerbation (Renamed from Chronic obstructive asthma with exacerbation), Acute embolism and thrombosis of unspecified deep veins of unspecified lower extremity, Irritable bowel syndrome (Renamed from Functional bowel disease), Asthma, Gastric reflux syndrome, Colonoscopy, Hyperlipidemia, unspecified, Nephrolithiasis, uric acid [facility] Phone Encounter On: 24-Nov-2016 15:46 Encounter Diagnosis: Elevated AFP End: 24-Nov-2016 15:50 [facility] Visit On: 12-Nov-2016 14:02 Encounter Diagnosis: BMI 32.0-32.9,adult, Nonsmoker, Candidiasis of mouth End: 12-Nov-2016 14:23 [facility] Visit On: 28-Oct-2016 9:17 Encounter Reason: Cough - Symptoms include cough and dyspnea (after coughing spell). The cough is described as productive. Cough onset was 1 week(s) ago. Symptoms are described as worsening. Symptoms are exacerbated by l End: 28-Oct-2016 9:55 jamey down. Associated symptoms include headache. Previous presentation included a cough, dyspnea and muscle ache.Encounter Diagnosis: BMI 32.0-32.9,adult, Nonsmoker, Cough, Chronic obstructive asthma with acute exacerbation (Renamed from Chronic obstructive asthma with exacerbation), Candidiasis of mouth [facility] Visit On: 15-Oct-2016 9:32 Encounter Reason: Cough - No changes in management were made at the last visit. Symptoms include cough, wheezing, runny nose, stuffy nose and sore throat, while symptoms do not include chills or fever. The cough is descr End: 15-Oct-2016 13:48 ibed as productive. Cough onset was sudden 2 day(s) ago. Onset of cough followed cold symptoms. The cough occurs constantly. Symptoms are described as moderate in severity and worsening. Associated symp toms include postnasal drainage. Current treatment includes decongestants.Encounter Diagnosis: Symptom, Cough (786.2), Nonsmoker, BMI 32.0-32.9,adult, Chronic obstructive asthma with acute exacerbation (Renamed from Chronic obstructive asthma with exacerbation), Acute bronchitis due to other specified organisms, SOB (shortness of breath) on exertion [facility] Phone Encounter On: 15-Sep-2016 1:17 Encounter Diagnosis: Elevated tumor markers End: 15-Sep-2016 14:44 [facility] Visit On: 02-Sep-2016 10:37 Encounter Reason: Follow up for chronic medical issues - The patient feels well with minor complaints (may have ibs), has good energy level and is sleeping well. Patient has been compliant with instructions. Current medi End: 02-Sep-2016 16:27 cation use: no side effects and compliant with dosing regimen. Patient sleeps 9 hours per night. Nutrition: balanced diet and supplemental vitamins. The medical issues the patient is following up for in clude asthma, blood sugar issues, depression, gastric reflux and high cholesterol. Note for Follow up for chronic medical issues: shoulder pain is gone- she saw Rene and he wants alpha feto protein every [address] this monht-no gerd no bronchitis and breathing ahs been goodEncounter Diagnosis: Nonsmoker, BMI 32.0-32.9,adult, Abnormal glucose tolerance test, Need for prophylactic vaccination and inoculation against influenza (Renamed from Need for immunization against influenza), Colonoscopy, Asthma, Breast cancer, Other hyperlipidemia, Elevated tumor markers, Gastric reflux syndrome, Acute embolism and thrombosis of unspecified deep veins of unspecified lower extremity, Depression, Irritable bowel syndrome (Renamed from Functional bowel disease), Obstructive sleep apnea, adult [facility] Visit On: 05-May-2016 12:57 Encounter Reason: Follow up for chronic medical issues - The patient feels well with minor complaints (wrist pain that radiates to her thumb- 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 Patient has bee End: 05-May-2016 13:44 n compliant with instructions. Current medication use: no side effects and compliant with dosing regimen. Patient sleeps 7 hours per night. Nutrition: balanced diet and supplemental vitamins. The medica l issues the patient is following up for include asthma, blood sugar issues, depression, gastric reflux and high cholesterol. Note for Follow up for chronic medical issues: shoulder pain is gone- she saw Rene and he wants alpha feto protein every [address] this monht- no gerd no bronchitis and breathing ahs been good, [ADDITIONAL REASON] Wrist Pain - Symptoms include wrist pain and decreased range of motion, while sy mptoms do not include swelling, redness, warmth or stiffness. Symptoms are located in the right wrist. The pain radiates to the right hand. The patient describes the pain as sharp. Onset was sudden week (s) ago. The symptoms occur frequently. The patient describes symptoms as worsening. Associated symptoms include weakness in the hand and pain in the hand, while associated symptoms do not include numbn ess in the hand, fever or chills. The patient is not currently being treated for this problem. Note for Wrist pain: certain ways moves thumb hurts into wrist like when lifting or moving certain ways- no trauma and no take anything Encounter Diagnosis: Abnormal glucose tolerance test, BMI 32.0-32.9,adult, Nonsmoker, Other chronic nonalcoholic liver disease, Elevated tumor markers, Other hyperlipidemia, Asthma, Gastric reflux syndrome, Breast cancer [facility] Visit On: 03-Jan-2016 13:10 Encounter Reason: Follow up for chronic medical issues - The patient feels well with minor complaints (hard lesion on ring finger knuckle), has good energy level and is sleeping well. Patient has been compliant with inst End: 05-Jan-2016 17:43 ructions. Current medication use: no side effects and compliant with dosing regimen. Patient sleeps 7 hours per night. Nutrition: balanced diet and supplemental vitamins. The medical issues the patient is following up for include asthma, blood sugar issues, depression, gastric reflux and high cholesterol. Note for Follow up for chronic medical issues: feeling pretty good and breathing been good work ing on diet and cutting carbs and bp is good- - weight down and trying and doing more stretching- , [ADDITIONAL REASON] Follow up, Laboratory Test Results - Date: (12/26/15). , [ADDITIONAL REASON] Lumps - The onset of the lumps has been sudden and has been occurring in a persistent pattern for 1 month. The course has been increasing. The lumps are described as moderate. Note for Lumps: ring finger knuckle of left hand Encounter Diagnosis: Abnormal glucose tolerance test, Depression, Elevated tumor markers, Other hyperlipidemia, Other chronic nonalcoholic liver disease, Synovial cyst, Chronic left shoulder pain [facility] Visit On: 09-Aug-2015 14:00 Encounter Reason: Follow up for chronic medical issues - The patient feels well with no complaints, has good energy level and is sleeping well. Patient has been compliant with instructions. Current medication use: no lori End: 10-Aug-2015 20:52 e effects and compliant with dosing regimen. Patient sleeps 7 hours per night. Nutrition: balanced diet and supplemental vitamins. The medical issues the patient is following up for include asthma, bloo d sugar issues, depression, gastric reflux and high cholesterol. Note for Follow up for chronic medical issues: bp is good and is seeing maria isabelilia- he wonders if cough gerd- so trying omeprazole closer to bedtime- but then gets earlier day sx- - her mood has been good and traveling in nov- breathing has been good we discussed her fatty liver marker- slight up and normal ct - if persists up will send t o gi-- but she really has to work harder on weight loss and control chol sugar etc, [ADDITIONAL REASON] Follow up, Laboratory Test Results - Date: (07/30/15). Encounter Diagnosis: Abnormal glucose tolerance test, Need for prophylactic vaccination and inoculation against influenza (Renamed from Need for immunization against influenza), Gastric reflux syndrome, Elevated tumor markers, Other chronic nonalcoholic liver disease, Hyperlipidemia, Depression, Asthma,Intrinsic (493.11) [facility] Visit On: 05-Jun-2015 8:10 Encounter Reason: Cough - Symptoms include cough, runny nose and stuffy nose, while symptoms do not include dyspnea, wheezing, chills, fever, sore throat, myalgias, pleuritic chest pain, chest pain or vomiting. The cough End: 06-Jun-2015 21:36 is described as barky and productive (a little touch of yellow, not real infection like). Cough onset was gradual 1 week(s) ago. Symptoms are described as worsening. Note for Cough: starting to turn color of sputum not improving not wheezing or sob Encounter Diagnosis: Asthma with Acute Exacerbation (493.02), Upper respiratory infection (Renamed from Infection of the upper respiratory tract) [facility] Phone Encounter On: 26-Apr-2015 15:44 Encounter Diagnosis: Abnormal liver ultrasound End: 26-Apr-2015 15:51 [facility] Visit On: 05-Apr-2015 13:00 Encounter Reason: Follow up for chronic medical issues - The patient feels well with no complaints, has good energy level and is sleeping well. Patient has been compliant with instructions. Current medication use: no lori End: 05-Apr-2015 14:50 e effects and compliant with dosing regimen. Patient sleeps 7 hours per night. Nutrition: balanced diet and supplemental vitamins. The medical issues the patient is following up for include asthma, bloo d sugar issues, depression, gastric reflux and high cholesterol. Note for Follow up for chronic medical issues: Pt just had her labs done when came in for apt today.- bp is good and weight is stable a sthma and cough been good- takinglovastatin qod and tolerating and mood good citalopram goodEncounter Diagnosis: Abnormal Glucose Tolerance Test (790.22), Hyperlipidemia, Unspecified (272.4), Other chronic nonalcoholic liver disease, Asthma (493.11), GERD (530.81), Laryngitis, Sinus drainage, Osteopenia [facility] Visit On: 25-Feb-2015 8:02 Encounter Reason: Allergic rhinitis - The onset of the allergic rhinitis has been sudden and has been occurring in spring season pattern for 1 week. The course has been worsening. being outside. Associated features incl End: 25-Feb-2015 8:29 ude The symptoms have been associated with watery eyes, clear nasal drainage, sneezing, coughing, fatigue and night symptoms, while the symptoms have not been associated with itchy nose.Encounter Diagnosis: Symptom, Cough (786.2), Laryngitis, Sinus drainage [facility] Visit On: 07-Dec-2014 9:39 Encounter Reason: Follow up for chronic medical issues - The patient feels well with minor complaints (joint pains), has good energy level and is sleeping well. Patient has been compliant with instructions. Current medic End: 07-Dec-2014 10:37 ation use: no side effects and compliant with dosing regimen. Patient sleeps 7 hours per night. Nutrition: balanced diet and supplemental vitamins. The medical issues the patient is following up for inc lude asthma, blood sugar issues, depression, gastric reflux and high cholesterol. Note for Follow up for chronic medical issues: shegained 4 pounds was sick and not exercising doing better now bp is good- no gerd and mood good asthma stable, [ADDITIONAL REASON] Follow up, Laboratory Test Results - Date: (11/16/14). , [ADDITIONAL REASON] Joint Pain - Symptoms include joint pain, while symptoms do not include joint sw elling, joint stiffness or decreased range of motion. Symptoms are located in the left shoulder, left wrist, left knee, left ankle, left foot, right shoulder and right knee. The patient describes the pa in as dull and aching. Onset was gradual month(s) ago. Encounter Diagnosis: Abnormal Glucose Tolerance Test (790.22), Other chronic nonalcoholic liver disease, Elevated tumor markers, GERD (530.81), Hyperlipidemia, Unspecified (272.4), Depression (311.), Asthma (493.11) [facility] Visit On: 05-Nov-2014 8:13 Encounter Reason: Cough - The onset of the cough has been sudden. The cough is characterized as productive of mucoid sputum. The amount of sputum produced is scanty. The cough occurs all the time. The symptoms are aggra End: 05-Nov-2014 8:36 vated by supine posture. The symptoms have been associated with hoarseness, runny nose and wheezing, while the symptoms have not been associated with fever or headache. the color of the sputum is yellowish.Encounter Diagnosis: BRONCHITIS, NOT SPECIFIED ACUTE OR CHRONIC (490.), Symptom, Cough (786.2), Wheezing (Renamed from Asthmatic breathing) [facility] Visit On: 30-Aug-2014 11:33 Encounter Reason: InjectionsEncounter Diagnosis: Prophylactic vaccination against Streptococcus pneumoniae (V03.82) End: 30-Aug-2014 17:22 [facility] Visit On: 17-Aug-2014 13:04 Encounter Reason: Follow up tests - Date: (08/14/14 blood work)., [ADDITIONAL REASON] Follow up for chronic medical issues - The patient feels well with minor complai End: 18-Aug-2014 23:37 nts (getting over cold), has good energy level and is sleeping well. Patient has been compliant with instructions. Current medication use: no side effects and compliant with dosing regimen. Patient slee ps 7 hours per night. Nutrition: balanced diet and supplemental vitamins. The medical issues the patient is following up for include asthma, blood sugar issues, depression, gastric reflux and high tomas sterol. Note for Follow up for chronic medical issues: her asthma and bronchitis getting better -no gerd mood good and no fatigueon prednsione-bp good and sugar is good Encounter Diagnosis: Abnormal Glucose Tolerance Test (790.22), NEED FOR PROPHYLACTIC VACCINATION AND INOCULATION AGAINST INFLUENZA (V04.81), Hyperlipidemia, Unspecified (272.4), Asthma (493.11), GERD (530.81), Depression (311.), Other chronic nonalcoholic liver disease [facility] Office Visit On: 13-Aug-2014 9:21 Encounter Reason: Cough - Symptoms include cough. The cough is described as barky, brassy and productive (yellow mucus). Cough onset was sudden 5 day(s) ago. Symptoms are described as mild and unchanged.Encounter Diagnosis: End: 13-Aug-2014 10:30 BRONCHITIS, NOT SPECIFIED ACUTE OR CHRONIC (490.), Asthma (493.11), Wheezing (Renamed from Asthmatic breathing), Allergic Rhinitis(477.9) [facility] Phone Encounter On: 13-Jul-2014 14:50 Encounter Diagnosis: Hyperlipidemia, Unspecified (272.4) End: 13-Jul-2014 14:53 [facility] Visit On: 25-May-2014 11:30 Encounter Reason: Follow up for chronic medical issues - The patient feels well with minor complaints (joint pain), has good energy level and is sleeping poorly (sometimes becuase of joint pains). Patient has been compli End: 27-May-2014 23:15 ant with instructions. Current medication use: no side effects and compliant with dosing regimen. Patient sleeps 7 hours per night. Nutrition: balanced diet and supplemental vitamins. The medical issues the patient is following up for include asthma, blood sugar issues, depression, gastric reflux and high cholesterol. Note for Follow up for chronic medical issues: she had blepharoplasty- and her bp is good and weight comign down and trying - still seeing sibilia and asthma finally settling and o gerd and mood is good and bp is good, [ADDITIONAL REASON] Follow up, Laboratory Test Results - Date: (05/15/14). , [ADDITIONAL REASON] Joint Pain - Symptoms include joint pain, joint stiffness, decreased range of motion and morning stiffness. The patient describes the pain as dull and aching. Onset was gradual 1 mo nth(s) ago. The symptoms occur frequently. The patient describes this as worsening. Note for Joint pain: all major joints Encounter Diagnosis: Abnormal Glucose Tolerance Test (790.22), Other chronic nonalcoholic liver disease, elevated alpha feto protein, Asthma (493.11), GERD (530.81), Depression (311.), Hyperlipidemia, Unspecified (272.4), Myalgia(729.1) [facility] Visit On: 26-Mar-2014 8:24 Encounter Reason: Cough - The onset of the cough has been sudden. The cough is characterized as productive of mucoid sputum. The amount of sputum produced is scanty. The cough occurs all the time. The symptoms are aggra End: 26-Mar-2014 8:50 vated by supine posture and exposure to pollens (recent trip to [place] The symptoms have been associated with hoarseness and runny nose, while the symptoms have not been associated with fever or headache. the color of the sputum is yellowish. Encounter Diagnosis: Asthma (493.11), Symptom, Cough (786.2), Wheezing (Renamed from Asthmatic breathing), BRONCHITIS, NOT SPECIFIED ACUTE OR CHRONIC (490.) [facility] Visit On: 16-Feb-2014 8:24 Encounter Reason: Follow up for chronic medical issues - The patient feels well with no complaints, has good energy level and is sleeping well. Patient has been compliant with instructions. Current medication use: no lori End: 16-Feb-2014 9:27 e effects and compliant with dosing regimen. Patient sleeps 9 hours per night. Nutrition: balanced diet and supplemental vitamins. The medical issues the patient is following up for include asthma, bloo d sugar issues, depression, gastric reflux and high cholesterol. Note for Follow up for chronic medical issues: bp is good still seeing sibilia for cough he may scope her because still doesnt have ans wer -no gerd- trying to exercise- at home and do omega=- mood been pretty good she liked new med- no gerd - and she did see eye doc and bowels better with probiotic- no thrush now, [ADDITIONAL REASON] Follow up, Laboratory Test Results - Date: (02/09/14). Encounter Diagnosis: Abnormal Glucose Tolerance Test (790.22), Hyperlipidemia, Unspecified (272.4), Depression (311.), GERD (530.81), Candidiasis of Mouth (Thrush) (112.0), Other chronic nonalcoholic liver disease, Anemia(285.9), Asthma (493.11), Osteopenia [facility] Refill Request On: 02-Jan-2014 15:54 Encounter Diagnosis: Depression (311.) End: 02-Jan-2014 15:55 [facility] Phone Encounter On: 24-Nov-2013 16:19 Encounter Diagnosis: Anemia(285.9) End: 24-Nov-2013 16:20 [facility] Office Visit On: 21-Nov-2013 12:50 Encounter Reason: Follow up for chronic medical issues - The patient feels well with minor complaints (cough, some yellow sputum), has good energy level (although tired, getting better) and is sleeping well. Patient has End: 21-Nov-2013 22:56 been compliant with instructions. Current medication use: no side effects and compliant with dosing regimen. Patient sleeps 9 hours per night. Nutrition: balanced diet and supplemental vitamins. The med ical issues the patient is following up for include asthma, blood sugar issues, depression, gastric reflux and high cholesterol. Note for Follow up for chronic medical issues: she saw urbano for coug h- he thinks asthma allergies - she stiill coughing intermittently sometimes sputum - -he thinks maybe perfume and she backon cpap- sleeping better at night but still some fatigue in day- gave blood in dec- is taking iron doesnt know doseage- no notice blood in stool, [ADDITIONAL REASON] Follow up tests - Date: (11/15/13 blood work). Encounter Diagnosis: Abnormal Glucose Tolerance Test (790.22), Symptom, Cough (786.2), GERD (530.81), Hyperlipidemia, Unspecified (272.4), Asthma,Intrinsic (493.11), Depression (311.), Osteopenia, Fatigue, Other chronic nonalcoholic liver disease, Anemia(285.9) [facility] Office Visit On: 19-Jul-2013 12:25 Encounter Reason: Follow up for chronic medical issues - The patient feels well with minor complaints (talk about alternatives to advair and zetia d/t cost and she's in [facility] has good energy level and is sleeping End: 20-Jul-2013 21:21 well. Patient has been compliant with instructions. Current medication use: no side effects and compliant with dosing regimen. Patient sleeps 9 hours per night. Nutrition: balanced diet and supplementa l vitamins. The medical issues the patient is following up for include asthma, blood sugar issues, depression, gastric reflux and high cholesterol. Note for Follow up for chronic medical issues: she s aw sibilia- and her cough better some draiange - so jitendra put her back on singulair- - she is having breast surgery with larkin for replacing her implants - no diarrhea -no gerd and mood good - bp is good fasting sugar is good, [ADDITIONAL REASON] Follow up, Laboratory Test Results - Date: (07/12/13). Encounter Diagnosis: Abnormal Glucose Tolerance Test (790.22), Need for prophylactic vaccination and inoculation against influenza (V04.81), GERD (530.81), Hyperlipidemia, Unspecified (272.4), Asthma,Intrinsic (493.11), Clostridium difficile diarrhea (Renamed from C. difficile diarrhea), ASTHMA, UNSPECIFIED, WITH ACUTE EXACERBATION (493.92), Depression (311.), Osteopenia, Candidiasis of Mouth (Thrush) (112.0) [facility] Recovered Encounter On: 03-Jul-2013 10:37 Encounter Diagnosis: Hyperlipidemia, Unspecified (272.4), Osteopenia (733.90) End: 03-Jul-2013 10:40 [facility] Office Visit On: 29-Mar-2013 14:14 Encounter Reason: Follow up tests - Diagnostic tests include CT scan (chest) and PFTS. Date: (03/21/13). Current symptoms include cough (continues- no worse) and other (sores in corners of mouth). Note for Discuss proced End: 30-Mar-2013 22:16 ure results: she saw surgeon for her breast rupture and does have surgery set up in jul- to replace both breast - her cough still there but less, [ADDITIONAL REASON] Mouth ulcers - The onset of the mouth ulcers has been gradual and has been occur ring in a persistent pattern for months. The course has been worsening. The mouth ulcers are observed in the lips (corners). The mouth ulcers are described as painful. There has been no associated bleeding, fever, headache or sore throat. Encounter Diagnosis: Symptom, Cough (786.2), Angular cheilosis (528.5), GERD (530.81), Asthma,Intrinsic (493.11), Osteopenia (733.90), Candidiasis of Mouth (Thrush) (112.0) [facility] Office Visit On: 01-Mar-2013 13:38 Encounter Reason: Cough - The onset of the cough has been gradual and has been occurring in a persistent pattern for 3 months. The course has been constant. The cough is characterized as productive of mucopurulent sputum End: 02-Mar-2013 22:48 . The amount of sputum produced is scanty. The cough occurs all the time. The symptoms are not aggravated by supine posture or exercise. The symptoms have been associated with hoarseness, while the symp toms have not been associated with chest pain, dyspnea, fever, runny nose, sore throat or wheezing. Note for Cough: Pt's cough never really resolved since she had pneumonia in November. Coughs daily wi th yellow sputum. Also has chronic hoarseness and sometimes almost gets laryngitis- - she had improved but was still coughing white now coughing up yellow again- no fever- a month now coughing yellow ag ain- not coughing alot like she was - - clearing throat alot- not wheezing and sob like had been- no diarrhea and not taking antihistamineEncounter Diagnosis: Symptom, Cough (786.2), Clostridium difficile infection, Hyperlipidemia, Unspecified (272.4), GERD (530.81), Osteopenia (733.90), Candidiasis of Mouth (Thrush) (112.0) [facility] Office Visit On: 11-Jan-2013 11:16 Encounter Reason: Follow up acute care visit - The patient feeling better since last seen (diarrhea has completely resolved) and improving. Patient has been compliant with instructions. Current medication use: no side ef End: 11-Jan-2013 19:53 fects. The medical issues the patient is following up for include All identified problems below and other (diarrhea). Note for Follow up acute care visit: not having the kidney stone pain- cough still little not colored sputum not sob not wheezing Encounter Diagnosis: Clostridium difficile infection (041.84), Asthma,Intrinsic (493.11), Nephrolithiasis (274.11) [facility] Office Visit On: 04-Jan-2013 18:30 Encounter Diagnosis: Nephrolithiasis (274.11) End: 04-Jan-2013 22:36 [facility] Office Visit On: 04-Jan-2013 9:20 Encounter Reason: Back Pain - The injury involved the upper back. This occurred 1 day(s) ago at home. Symptoms are located in the midline upper back.Encounter Diagnosis: Rib pain (786.50), Nephrolithiasis (274.11) End: 04-Jan-2013 13:21 [facility] Office Visit On: 20-Dec-2012 10:54 Encounter Reason: Diarrhea - The onset of the diarrhea has been sudden and has been occurring in a persistent pattern for 1 day. The course has been constant. The stools are watery and mixed with mucus. The volume of the End: 20-Dec-2012 21:24 stools is normal (VARIES). The symptoms have been associated with abdominal pain, while the symptoms have not been associated with constipation, fever, nausea, start of a new medication, upper respirat ory infection symptoms or recent antibiotics (other than the flagyl for the c-diff). Note for Diarrhea: tender abd and bloating and diarrhea came back- yesterday things had gone back prettynormal- - w hile on antiotibiotics- 3 days off came back - still taking probiotic- and eating ygourtEncounter Diagnosis: Diarrhea (787.91), Asthma,Intrinsic (493.11) [facility] Office Visit On: 13-Dec-2012 14:45 Encounter Reason: Follow up, Laboratory Test Results - Lab results: abnormal microbiology (positive c-diff). Date: (12/05/12). Current symptoms/reason for visit include/s Follow up visit with no current symptoms. Note for End: 13-Dec-2012 21:05 Follow up to discuss laboratory test results: Diarrhea has gotten better- formed now . Still taking the flagyl.- no fever and o abd pain- she is coughing some with laying down- -try taking zyrtec at bedtime - Encounter Diagnosis: Clostridium difficile diarrhea (008.45) [facility] Office Visit On: 05-Dec-2012 14:01 Encounter Reason: Diarrhea - The onset of the diarrhea has been sudden and has been occurring in a persistent pattern for 5 days. The course has been constant. The stools are watery and mixed with mucus. The volume of th End: 05-Dec-2012 14:37 e stools is normal (VARIES). The symptoms have been associated with abdominal pain and recent antibiotics, while the symptoms have not been associated with constipation, fever, nausea, start of a new me dication or upper respiratory infection symptoms. Note for Diarrhea: not quite as bad as was now more gel like- has been taking probiotic- 2 episodes a day- - has cramping prior- no blood - low grade temp- she has been takign probioitic and psyllium- Encounter Diagnosis: Diarrhea (787.91) [facility] Phone Encounter On: 02-Dec-2012 15:51 Encounter Diagnosis: Diarrhea (787.91) End: 02-Dec-2012 15:53 [facility] Office Visit On: 29-Nov-2012 13:23 Encounter Reason: Follow up for chronic medical issues - The patient feels well with no complaints, has good energy level and is sleeping well. Patient has been compliant with instructions. Current medication use: no lori End: 01-Dec-2012 22:43 e effects and compliant with dosing regimen. Patient sleeps 9 hours per night. Nutrition: balanced diet and supplemental vitamins. The medical issues the patient is following up for include asthma, bloo d sugar issues, depression, gastric reflux and high cholesterol. Note for Follow up for chronic medical issues: Pt feeling much better. she has good bp and sugar good and had eye exam last year and cataract surgery and doing well, [ADDITIONAL REASON] Follow up, Laboratory Test Results - Date: (10/04/12). Encounter Diagnosis: Abnormal Glucose Tolerance Test (790.22), Hematuria (599.7), GERD (530.81), BACTERIAL PNEUMONIA, UNSPECIFIED (482.9), Asthma with Acute Exacerbation (493.02), Osteopenia (733.90), Hyperlipidemia, Unspecified (272.4) [facility] Office Visit On: 23-Nov-2012 13:36 Encounter Reason: Follow up acute care visit - The patient feeling better since last seen (but still coughing quite a bit), has decreased energy level and improving. Patient has been compliant with instructions. Current End: 24-Nov-2012 19:20 medication use: no side effects, compliant with dosing regimen and considered effective by patient. Patient sleeps 7 hours per night. The medical issues the patient is following up for include All ident ified problems below and URI. Note for Follow up acute care visit: coughing not as hard deep or as much- white sputum- can sleep with cough syrup - less wheezing less sob Encounter Diagnosis: Symptom, Cough (786.2), BACTERIAL PNEUMONIA, UNSPECIFIED (482.9), Asthma with Acute Exacerbation (493.02) [facility] Office Visit On: 21-Nov-2012 11:06 Encounter Reason: Follow up acute care visit - The patient feeling better since last seen (but still coughing quite a bit), has decreased energy level and improving. Patient has been compliant with instructions. Current End: 21-Nov-2012 21:55 medication use: no side effects, compliant with dosing regimen and considered effective by patient. Patient sleeps 7 hours per night. The medical issues the patient is following up for include All ident ified problems below and URI. Note for Follow up acute care visit: still coughing but thinks flared herself again with breathing in cold air- over the weekend was taking 3 pills a day- today taking 2 - color of sputum- now white- no fever but sweats at night- doing 3 breathing treatments a dayEncounter Diagnosis: Asthma with Acute Exacerbation (493.02), BACTERIAL PNEUMONIA, UNSPECIFIED (482.9) [facility] Office Visit On: 18-Nov-2012 11:32 Encounter Diagnosis: BACTERIAL PNEUMONIA, UNSPECIFIED (482.9), Asthma with Acute Exacerbation (493.02) End: 18-Nov-2012 12:44 [facility] Office Visit On: 17-Nov-2012 12:21 Encounter Diagnosis: Symptom, Cough (786.2), BACTERIAL PNEUMONIA, UNSPECIFIED (482.9), Asthma with Acute Exacerbation (493.02) End: 17-Nov-2012 14:02 [facility] Office Visit On: 16-Nov-2012 13:27 Encounter Reason: Follow up, Laboratory Test Results - Date: (10/04/12). Current symptoms/reason for visit include/s Symptoms include cough (continues and thinks its worse. No fever or body ache.)., End: 20-Nov-2012 10:07 [ADDITIONAL REASON] Cough - The onset of the cough has been gradual and has been occurring in a persistent pattern for weeks. The course has been increasing. The cough is characterized as productive of mucopurulent sputum. The amount of sputum produced is scanty. The cough occurs all the time. The symptoms have been associated with fever, runny nose and wheezing, while the symptoms have not been asso ciated with dyspnea, hoarseness or sore throat. Note for Cough: still coughing up yellow and not relaly getting better- cough getting worse- more sob- - do not stop takign advair - this is why exacerbates so bad Encounter Diagnosis: Symptom, Cough (786.2), Wheezing (786.07), BACTERIAL PNEUMONIA, UNSPECIFIED (482.9), Asthma with Acute Exacerbation (493.02) [facility] Office Visit On: 09-Nov-2012 11:44 Encounter Reason: Cough - The onset of the cough has been sudden. The cough is characterized as productive of mucoid sputum. The amount of sputum produced is scanty. The cough occurs all the time. The symptoms are not a End: 09-Nov-2012 12:09 ggravated by smoking, supine posture, meals, particular position, exposure to dust, exercise, exposure to pollens or exposure to fumes. The symptoms have been associated with runny nose, while the sympt oms have not been associated with fever, headache, hoarseness, sore throat or wheezing. the color of the sputum is yellowish.Encounter Diagnosis: Symptom, Cough (786.2), BRONCHITIS, NOT SPECIFIED ACUTE OR CHRONIC (490.), Wheezing (786.07), ASTHMA, UNSPECIFIED, WITH ACUTE EXACERBATION (493.92) [facility] Office Visit On: 12-Oct-2012 13:43 Encounter Reason: Breast Problems - Symptoms include breast skin change, while symptoms do not include breast pain, breast tenderness, bloody nipple discharge, nonbloody nipple discharge or breast swelling. The patient c End: 13-Oct-2012 10:12 omplains of breast problems in the left lower outer quadrant and right lower outer quadrant. Onset was gradual month(s) ago. Associated symptoms do not include fever, fatigue or swollen glands. The sathya ent is not currently being treated for this problem. Note for Breast problems: Pt had bilateral massectomy and reconstruction. Been 10 years and has noticed droopy skin under breast and change is size of the left one. - had saline implants - Celia larkin was the doc in [place]-- no trauma- noticed this inlast 3-4 months no pain, [ADDITIONAL REASON] Skin Lesions - Symptoms include single skin lesion. The patient describes the le mayra(s) as painless, itching and changing in texture. Onset was gradual year(s) ago. Associated symptoms do not include fever. Encounter Diagnosis: Hematuria (599.7), Actinic keratosis (702.0), possible ruptured saline implant [facility] Office Visit On: 28-Sep-2012 11:06 Encounter Reason: Follow up acute care visit - The patient feeling better since last seen and improving. Patient has been compliant with instructions. Current medication use: no side effects, compliant with dosing regime End: 28-Sep-2012 12:13 n and considered effective by patient. Patient sleeps 7 hours per night. The medical issues the patient is following up for include All identified problems below and UTI. Note for Follow up acute care visit: has been treated for UTI, with cipro for alph strep in urine (was only 900 colonies)still with large hematuria, but asymptomaticthis is second urine pos for hematuria Encounter Diagnosis: Dysuria (788.1), Hematuria (599.70), Need for prophylactic vaccination and inoculation against influenza (V04.81) [facility] Office Visit On: 07-Sep-2012 10:33 Encounter Reason: Urinary problems - The onset of the urinary problems has been sudden and they have been occurring in a persistent pattern for 2 days. The course has been increasing. The urinary problems are described a End: 07-Sep-2012 11:04 s moderate. The urinary problem is characterized as frequency and urgency. There has been associated blood in urine. Note for Urinary problems: sudden hematuria painless, no UTI symptomsgrand mother had bladder cancer Encounter Diagnosis: Hematuria (599.7) [facility] Office Visit On: 08-Jun-2012 13:19 Encounter Reason: Follow up acute care visit - The patient improving (cough is gone but still tired). Patient has been compliant with instructions. Current medication use: no side effects. Patient sleeps 8 hours per nigh End: 08-Jun-2012 14:20 t. The medical issues the patient is following up for include other (cough). Note for Follow up acute care visit: cough is better - mood is better - not needing asthma rescue inhaler- doing pretty goo d- fatigue not as bad - only notices it if slows down or sits down and she has gone off her diet some, [ADDITIONAL REASON] Follow up tests - Date: (labs May 2012). Encounter Diagnosis: GERD (530.81), Depression (311.), Other chronic nonalcoholic liver disease (571.8), Other and unspecified hyperlipidemia (272.4), Fatigue (780.79), Abnormal Glucose Tolerance Test (790.22), Asthma (493.11), Iron Deficiency Anemia,Unspecified (280.9), Breast Cancer, Unspecified (174.9) [facility] Historical Summary On: 28-Apr-2012 13:33 Encounter Diagnosis: SHINGLES,NEED FOR PROPHYLACTIC VACCINATION AND INOCULATION AGAINST (V05.8) End: 28-Apr-2012 13:37 [facility] Office Visit On: 20-Apr-2012 13:21 Encounter Reason: Follow up for chronic medical issues - The patient feels well with minor complaints (alot of fatigue yet with iron problems- feeling some increased depression lately and is taking her paxil qd.), has de End: 20-Apr-2012 14:17 creased energy level and is sleeping well. Patient has been compliant with instructions. Current medication use: no side effects and compliant with dosing regimen. Patient sleeps 9 hours per night. Nutr ition: balanced diet and supplemental vitamins. The medical issues the patient is following up for include asthma, blood sugar issues, depression, gastric reflux and high cholesterol. Note for Follow u p for chronic medical issues: got rid of uri - but still some spastic cough --and skin lesion feeling good- bp is good- no gerd - she has quit giving blood and cbc back up- - go ahead back on iron and fill storage , [ADDITIONAL REASON] Follow up, Laboratory Test Results - Date: (04/13/12). Encounter Diagnosis: Asthma (493.11), Abnormal Glucose Tolerance Test (790.22), Fatigue (780.79), Other and unspecified hyperlipidemia (272.4), GERD (530.81), Other chronic nonalcoholic liver disease (571.8), Depression (311.), Symptom, Cough (786.2) [facility] Office Visit On: 16-Mar-2012 13:10 Encounter Reason: Cough - The onset of the cough has been sudden. The cough is characterized as dry (but has to clear her throat alot). The cough occurs all the time. The symptoms are not aggravated by supine posture. T End: 17-Mar-2012 21:05 he symptoms have been associated with hoarseness and sore throat, while the symptoms have not been associated with dyspnea, fever, headache or wheezing. Note for Cough : only a day of thisEncounter Diagnosis: Upper respiratory infection (465.9) [facility] Office Visit On: 29-Jan-2012 10:29 Encounter Reason: Rash - Symptoms include rash. The patient describes the rash as red, bumpy, itchy and weeping. The rash is located on the right arm. Onset was sudden 2 day(s) ago. The rash is spreading. Symptoms are mi End: 29-Jan-2012 11:01 ld. Symptoms are relieved by topical corticosteroids (desoximetasone). Associated symptoms do not include sore throat, swollen glands, cough, nausea, vomiting or diarrhea. Current treatment includes hig h potency topical corticosteroids. Note for Rash: right arm - steroid creme not helping veryitchy gregory leg and left armEncounter Diagnosis: CONTACT DERMATITIS D/T POISON ALINA, (692.6) [facility] Office Visit On: 05-Jan-2012 10:03 [facility] End: 05-Jan-2012 10:24 Office Visit On: 21-Dec-2011 13:04 Encounter Reason: Follow up for chronic medical issues - The patient feels well with no complaints, has good energy level and is sleeping well. Patient has been compliant with instructions. Current medication use: no lori End: 21-Dec-2011 13:33 e effects. Patient sleeps 9 hours per night. Impact of disease: no overall impact. Nutrition: balanced diet and supplemental vitamins. The medical issues the patient is following up for include asthma, blood sugar issues, depression, gastric reflux and high cholesterol. Note for Follow up for chronic medical issues: she is exercising again and weight down 2 pounds and bp is good and breathing is pre tty good- she went to give blood and told her couldnt becuase iron low- she was giving blood routinely - colonosocpy 3 yers ago no change in bowels and no [pain or blood in stool- had gerd a couple week s ago after eating something with alot of karen- better nowEncounter Diagnosis: Abnormal Glucose Tolerance Test (790.22), Iron Deficiency Anemia,Unspecified (280.9), GERD (530.81), Other and unspecified hyperlipidemia (272.4), Asthma (493.11), Other chronic nonalcoholic liver disease (571.8), Actinic keratosis (702.0) [facility] Office Visit On: 27-Nov-2011 10:24 Encounter Reason: Skin Problems - The problems have been occurring in a persistent pattern. The course has been increasing. The problem is characterized as a change in skin color. Lesions are described as brown, raised a End: 27-Nov-2011 11:32 mallory the skin and flat. There has been no associated itching or pain.Encounter Diagnosis: Actinic keratosis (702.0), ASTHMA, UNSPECIFIED, WITH ACUTE EXACERBATION (493.92), BRONCHITIS, NOT SPECIFIED ACUTE OR CHRONIC (490.) [facility] Office Visit On: 16-Nov-2011 11:25 Encounter Reason: Skin Problems - The problems have been occurring in a persistent pattern. The course has been increasing. The problem is characterized as a change in skin color. Lesions are described as brown, raised a End: 16-Nov-2011 12:04 mallory the skin and flat. There has been no associated itching or pain.Encounter Diagnosis: Actinic keratosis (702.0), Other seborrheic keratosis (702.19) [facility] Office Visit On: 19-Aug-2011 12:09 Encounter Reason: Follow up for chronic medical issues - The patient feels well with no complaints, has good energy level and is sleeping well (with tylenol pm). Patient has been compliant with instructions. Current medi End: 19-Aug-2011 12:51 cation use: no side effects and compliant with dosing regimen. Patient sleeps 8 hours per night. Nutrition: balanced diet, supplemental vitamins and low salt diet. The medical issues the patient is foll owing up for include All identified problems below, asthma, blood sugar issues, depression, gastric reflux, high cholesterol, osteoporosis/osteopenia and other. Note for Follow up for chronic medical i ssues: [poison alina is gone and pt is helping shoulder and she saw Dr camarena and he has her wearing support stocking and is hleping her leg - so she feels wellotherwise- bp is good and weight is stable- - and mood is good and - not routinely having gerd-she hasnt been exercising as much becuase of tib fib fracture- so she thinks this is why chol and blood sugar up- she is gradually working her way won k into exercise- - the asthma has been pretty good- - not needing rescue inhaler, [ADDITIONAL REASON] Follow up, Laboratory Test Results - Date: (07/20/11). Encounter Diagnosis: Abnormal Glucose Tolerance Test (790.22), Allergic Rhinitis(477.9), Other chronic nonalcoholic liver disease (571.8), Other and unspecified hyperlipidemia (272.4), Asthma (493.11), FRACTURE OF TIBIA AND FIBULA, TORUS, TIBIA ALONE (823.40) [facility] Office Visit On: 04-Aug-2011 13:32 Encounter Reason: Shoulder Problem - Symptoms include shoulder pain, tenderness, decreased range of motion and shoulder instability, while symptoms do not include localized swelling, clicking, shoulder bruising, frozen s End: 04-Aug-2011 14:29 houlder or shoulder stiffness. Symptoms are located in the right shoulder. The pain radiates to the right upper arm. Onset was gradual 7 month(s) ago. The symptoms occur constantly. The patient describe s symptoms as moderate in severity and worsening. Symptoms are exacerbated by motion at the shoulder, elevation of the shoulder, external rotation of the shoulder and lifting. Associated symptoms includ e pain in the arm, while associated symptoms do not include localized redness, localized warmth, numbness in the arm, pain in the neck, chest pain, fever or localized rash. The patient is not currently being treated for this problem. Note for Shoulder Problem: getting worse started in dec- she remembers falling- and extended arm backwards- - no numbness in arm no weak - losingmotion - no neck pain- she isnt taking or doing anythign for it except saw chiropractor a while ago once and just hasnt gotten better- cant put bra on - positive empty can- sometimes wakes her at night- no now - takes percocet one at night to sleep for broken ankle, [ADDITIONAL REASON] Rash - Symptoms include skin bumps and skin redness, while symptoms do not include draining, pain, skin swelling or skin weeping. The skin rash is located on the left arm, left foot and right arm. Onset was sudden 5 day(s) ago. Onset followed skin contact with an allergen. The symptoms occur constantly. The patient describes this as mild and improving. Symptoms are relieved by top ical corticosteroids. Associated symptoms do not include fever or serous discharge. Note for Rash: Pt was outside weeding flower bed.- she was exposed to poison alina - had been seeping Encounter Diagnosis: FRACTURE OF TIBIA AND FIBULA, TORUS, TIBIA ALONE (823.40), Need for prophylactic vaccination and inoculation against influenza (V04.81), Shoulder pain (719.41), CONTACT DERMATITIS D/T POISON ALINA, (692.6) [facility] Office Visit On: 24-Jun-2011 15:40 Encounter Reason: Skin Problems - The onset of the problems has been sudden. The problem is characterized as infection and a change in skin color. Lesions are described as red. There has been associated fatigue and pain End: 24-Jun-2011 16:42 (minor), while there has been no fever.Encounter Diagnosis: FRACTURE OF TIBIA AND FIBULA, TORUS, TIBIA ALONE (823.40), CELLULITIS/ABSCESS, FOOT (682.7) [facility] Office Visit On: 30-Jan-2011 14:44 Encounter Reason: Follow up for chronic medical issues - The patient feels well with no complaints, has good energy level and is sleeping well (with tylenol pm). Patient has been compliant with instructions. Current medi End: 30-Jan-2011 15:24 cation use: no side effects and compliant with dosing regimen. Patient sleeps 8 hours per night. Nutrition: balanced diet, supplemental vitamins and low salt diet. The medical issues the patient is foll owing up for include All identified problems below, asthma, blood sugar issues, depression, gastric reflux, high cholesterol, osteoporosis/osteopenia and other. weight : (home- 159). Note for Follow up for chronic medical issues: breathing has been good blood pressure is good and not much gerd routinely- not using the rescue inhaler and mood has been pretty good, [ADDITIONAL REASON] Follow up, Laboratory Test Results - Date: (01/23/11). Encounter Diagnosis: Abnormal Glucose Tolerance Test (790.22), Breast Cancer, Unspecified (174.9), Depression (311.), Asthma (493.11), Other and unspecified hyperlipidemia (272.4), GERD (530.81), Other chronic nonalcoholic liver disease (571.8) [facility] Office Visit On: 25-Dec-2010 14:21 Encounter Reason: Sinusitis - The last clinic visit was 1 week(s) ago. No changes in management were made at the last visit. Symptoms include nasal congestion, postnasal drainage, forehead pressure and cough (more cleari End: 25-Dec-2010 14:35 ng throat.). Onset was gradual 1 week(s) ago. The symptoms occur constantly (worse in am). The patient describes this as moderate in severity and worsening. Symptoms are exacerbated by bending forward a nd lying down. The patient is not currently being treated for this problem.Encounter Diagnosis: SINUSITIS, ACUTE NOS (461.9) [facility] Office Visit On: 10-Nov-2010 10:30 Encounter Reason: Cough - The onset of the cough has been sudden and has been occurring in a persistent pattern for 4 days. The course has been increasing. The cough is characterized as productive of mucoid sputum. The a End: 10-Nov-2010 10:58 mount of sputum produced is scanty. The cough occurs all the time. The symptoms have been associated with hoarseness and runny nose, while the symptoms have not been associated with sore throat or wheezing.Encounter Diagnosis: BRONCHITIS, NOT SPECIFIED ACUTE OR CHRONIC (490.), Symptom, Cough (786.2), Wheezing (786.07) [facility] Office Visit On: 21-Oct-2010 11:43 Encounter Reason: Injections - The medication the patient is here to receive is tetnus vaccine IM (tdap).Encounter Diagnosis: Unspecified Diagnosis End: 21-Oct-2010 13:18 [facility] Office Visit On: 07-Oct-2010 12:09 Encounter Reason: Follow up for chronic medical issues - The patient feels well with no complaints, has good energy level and is sleeping well (with tylenol pm). Patient has been compliant with instructions. Current medi End: 07-Oct-2010 22:13 cation use: no side effects and compliant with dosing regimen. Patient sleeps 8 hours per night. Nutrition: balanced diet, supplemental vitamins and low salt diet. The medical issues the patient is foll owing up for include All identified problems below, asthma, blood sugar issues, depression, gastric reflux, high cholesterol, osteoporosis/osteopenia and other. weight : (154). Note for Follow up for c hronic medical issues: feels well and weight down 6 more pounds- her breathing is good- - and bp is good- - the fatigue has gotten better when she keeps busy-- asthma has been good - spirometry was gr eat- rarely uses the resuce inhaler not weekly- no gerd, [ADDITIONAL REASON] Follow up, Laboratory Test Results - Date: (07/17/10). Encounter Diagnosis: Abnormal Glucose Tolerance Test (790.22), GERD (530.81), Asthma (493.11), Depression (311.), Irritable bowel syndrome (564.1), Need for prophylactic vaccination and inoculation against influenza (V04.81), Osteopenia (733.90), Other and unspecified hyperlipidemia (272.4), Breast Cancer, Unspecified (174.9) [facility] Office Visit On: 06-Aug-2010 8:09 Encounter Reason: Cough - The onset of the cough has been sudden. The cough is characterized as productive of mucoid sputum. The amount of sputum produced is less than a half a cup per day. The cough occurs mainly at nig End: 06-Aug-2010 8:59 ht. The symptoms are aggravated by supine posture. The symptoms have been associated with hoarseness ,runny nose and wheezing, while the symptoms have not been associated with dysphagia ,dyspnea ,edema ,fever ,foreign body aspiration ,headache ,night sweats or sore throat. Encounter Diagnosis: ASTHMA, UNSPECIFIED, WITH ACUTE EXACERBATION (493.92), Allergic Rhinitis(477.9), Wheezing (786.07) [facility] Office Visit On: 07-Jul-2010 16:22 Encounter Reason: Follow up for chronic medical issues - The patient feels well with minor complaints (alot of fatigue lately-) ,has good energy level and is sleeping well. Patient has been compliant with instructions. C End: 07-Jul-2010 17:30 urrent medication use: no side effects and compliant with dosing regimen. Patient sleeps 8 hours per night. Nutrition: balanced diet ,supplemental vitamins and low salt diet. The medical issues the sathya ent is following up for include All identified problems below ,asthma ,blood sugar issues ,depression ,gastric reflux ,high cholesterol ,osteoporosis/osteopenia and other. weight : (157). Note for Foll ow up for chronic medical issues: she has lost weight and trying hard- trying to watch the carbs- bp is good- exercising too -mood is good- - vit d ok- no gerd- no chest pain sob- asthma has been pretty good, [ADDITIONAL REASON] Follow up, Laboratory Test Results - Date: (06/30/10). Encounter Diagnosis: Abnormal Glucose Tolerance Test (790.22), Allergic Rhinitis(477.9), GERD (530.81), Asthma (493.11), Osteopenia (733.90), Fatigue (780.79) [facility] Office Visit On: 22-May-2010 8:28 Encounter Reason: Sore Throat - The last clinic visit was 2 day(s) ago. Symptoms include sore throat and postnasal drainage. The symptoms are symmetrical. The patient describes the pain as burning. Onset was sudden. Encounter Diagnosis: End: 22-May-2010 8:48 SINUSITIS, ACUTE NOS (461.9), SORE THROAT, STREPTOCOCCAL (034.0) [facility] Office Visit On: 03-Apr-2010 14:45 Encounter Reason: Follow up for chronic medical issues - The patient feels well with minor complaints (new complaint is poison alina/rash and wanted to inform her of recent URI's that occured from strong polen and believes End: 03-Apr-2010 15:49 its allergy related. Not presently sick.) ,has good energy level and is sleeping well. Patient has been compliant with instructions. Current medication use: no side effects and compliant with dosing re gimen. Patient sleeps 8 hours per night. Nutrition: balanced diet ,supplemental vitamins and low salt diet. The medical issues the patient is following up for include All identified problems below ,asth ma ,blood sugar issues ,depression ,gastric reflux ,high cholesterol ,osteoporosis/osteopenia and other. weight : (170's). Note for Follow up for chronic medical issues: she was using advair routinely - doing much better -still- occ cough- bp is good, [ADDITIONAL REASON] Rash - The onset of the rash has been sudden and has been occurring in a persist ent pattern for 1 weeks. The course has been increasing. The rash is characterized as red ,weeping and raised above the skin. The rash was first seen on the upper extremity (arms). It spread to the face (left side under chin). There has been associated itching, while there has been no chills ,loss of sensation or pain. , [ADDITIONAL REASON] Follow up, Laboratory Test Results - Date: (03/24/10). Encounter Diagnosis: Abnormal Glucose Tolerance Test (790.22), Elevated Blood Pressure(796.2), GERD (530.81), Other chronic nonalcoholic liver disease (571.8), Other and unspecified hyperlipidemia (272.4), Osteopenia (733.90), CONTACT DERMATITIS D/T POISON ALINA, (692.6) , Asthma (493.11) [facility] Office Visit On: 11-Nov-2009 11:27 Encounter Reason: Follow up for chronic medical issues - The patient feels well with no complaints ,has good energy level and is sleeping well. Patient has been compliant with instructions. Current medication use: no lori End: 11-Nov-2009 14:14 e effects and compliant with dosing regimen. Patient sleeps 8 hours per night. Nutrition: balanced diet ,supplemental vitamins and low salt diet. The medical issues the patient is following up for inclu de All identified problems below ,asthma ,blood sugar issues ,depression ,gastric reflux ,high cholesterol ,osteoporosis/osteopenia and other. weight :. Note for Follow up for chronic medical issues: asthma has been pretty good occ cough and congestion- - her weight is up and bp is up- toomuch salt- she has been eating ham and will work on this- she isnt using rescue inhaler- her sugar is creeping u p- encouraged aggressive tnad exercise- she notes if she doesnt keep busy then wants to nap- not needing sleeping pills- ie tylenol pm- chol looks alot better- mood has been good- - no gerd- rash is gone- she hadnt had any Ibs until ate salad out at [facility], [ADDITIONAL REASON] Follow up, Laboratory Test Results - Date: (10/16). Encounter Diagnosis: Abnormal Glucose Tolerance Test (790.22), Asthma (493.11), GERD (530.81), Depression (311.), Hyperlipidemia, Unspecified (272.4), Irritable bowel syndrome (564.1), Osteopenia (733.90), Elevated Blood Pressure(796.2) [facility] Office Visit On: 14-Oct-2009 8:13 Encounter Diagnosis: Rash (782.1) End: 14-Oct-2009 8:24 [facility] Office Visit On: 05-Aug-2009 11:11 Encounter Reason: Follow up for chronic medical issues - The patient feels well with no complaints ,has good energy level and is sleeping well. Patient has been compliant with instructions. Current medication use: no lori End: 06-Aug-2009 7:12 e effects and compliant with dosing regimen. Patient sleeps 8 hours per night. Nutrition: balanced diet ,supplemental vitamins and low salt diet. The medical issues the patient is following up for inclu de All identified problems below ,asthma ,blood sugar issues ,depression ,gastric reflux ,high cholesterol ,osteoporosis/osteopenia and other. Note for Follow up for chronic medical issues: she is fee ling pretty good - no gerd- but IBS- she is having the cramping comes and goes - hard to know- usually after some food- she is doing benefiber tabs- not bruising klike was -asthma is good - and allergie s ok- mood has been good- sleeping good- chol way up- hasnt been exercising and eating more meat and taking didfferent ryr, [ADDITIONAL REASON] Follow up, Laboratory Test Results - Date: (07/30/09). Encounter Diagnosis: Abnormal Glucose Tolerance Test (790.22), Hyperlipidemia, Unspecified (272.4), Depression (311.), Asthma (493.11), GERD (530.81), Irritable bowel syndrome (564.1), Need for prophylactic vaccination and inoculation against influenza (V04.81) [facility] Office Visit On: 04-Jul-2009 8:06 Encounter Reason: Rash - The onset of the rash has been acute and has been occurring in a persistent pattern for 1 weeks. The course has been increasing. The rash is characterized as red. The rash was first seen on the l End: 04-Jul-2009 12:55 ower extremity (LLE). It spread to the lower extremity (RLE). There has been associated itching. Encounter Diagnosis: CONTACT DERMATITIS D/T POISON ALINA, (692.6) [facility] Office Visit On: 07-May-2009 10:56 Encounter Reason: Follow up for chronic medical issues - The patient feels well with minor complaints (bruising) ,has good energy level and is sleeping well. Patient has been compliant with instructions. Current medicati End: 07-May-2009 22:31 on use: no side effects and compliant with dosing regimen. Patient sleeps 8 hours per night. Nutrition: balanced diet and supplemental vitamins. The medical issues the patient is following up for includ e All identified problems below ,asthma ,blood sugar issues ,gastric reflux and high cholesterol. Note for Follow up for chronic medical issues: saw rene had ct and colonsocopy and he told her thoug ht was ibs and take more fiber- - bp is good-- still occ abd sx- she has been under stress- she is doing fine on gerd as long has taken meds- has had egd- breathing has been pretty good, [ADDITIONAL REASON] Follow up, Laboratory Test Results - Date: (04/30/09). , [ADDITIONAL REASON] Bruising - The onset of the bruising has been gradual and has been occurring in a persistent pattern for months. The course has been recurrent. The bruising is moderate. The bruising is described as being located on the skin of both upper extremities and skin of both lower extremit ies. There has been no associated bleeding ,fever ,joint pains ,recent viral illness ,skin rash ,use of aspirin or use of anticoagulant. Note for Bruising: no bleeding Encounter Diagnosis: Abnormal Glucose Tolerance Test (790.22), Hyperlipidemia, Unspecified (272.4), Allergic Rhinitis(477.9), Asthma (493.11), Bruising/Echymosis (459.89), CHRONIC OBSTRUCTIVE ASTHMA WITH (ACUTE) EXACERBATION (493.22), abnormal pelvic exam- full right adnexa, GERD (530.81), Depression (311.) [facility] Historical Summary On: 18-Mar-2009 8:21 [facility] End: 18-Mar-2009 8:22 Office Visit On: 04-Feb-2009 10:45 Encounter Reason: Well Women Exam - The patient feels well with no complaints ,has good energy level and is sleeping well. Pap smear: date of last pap: (12/15/05). Contraceptive history: The patient is not using any method End: 04-Feb-2009 11:37 of contraception at this time. Patient exercises 3 - 4 times per week. The patient's libido is absent. The patient reports that she does not perform monthly breast self exam. Calcium intake includes 12 00 mg with Vit D daily supplement. The patient denies the use of oral contraceptives or hormone replacement therapy. breast cancer in first degree relative (brother and herself). Encounter Diagnosis: Well Woman Exam (V72.31) (Pap,Mammo,Routine Female) (Renamed from Well Woman V72.31 (p,m)), Breast Cancer, Unspecified (174.9), abnormal pelvic exam- full right adnexa, thrush [facility] Office Visit On: 30-Jan-2009 8:41 Encounter Reason: Upper respiratory infection - The duration of the symptoms are 1 week The course has been constant. The upper respiratory infection are relieved by OTC cold medications. Associated features include coug End: 30-Jan-2009 10:47 h (some) and nasal discharge/stuffy nose. Encounter Diagnosis: BRONCHITIS, NOT SPECIFIED ACUTE OR CHRONIC (490.), Allergic rhinitis due to other allergen (477.8), Symptom, Cough (786.2), Wheezing (786.07) [facility] Office Visit On: 18-Dec-2008 13:28 Encounter Reason: Follow up, Laboratory Test Results - Date: (12/10/08). , [ADDITIONAL REASON] Follow up, Diagnostic Procedure Results - Diagnostic tests include other (bone dexa). Date: (11/27/08). , End: 18-Dec-2008 14:23 [ADDITIONAL REASON] Follow up for chronic medical issues - The patient feels well with minor complaints (continued problems with bowels) ,has good energy level and is sleeping well. Patient has been co mpliant with instructions. Current medication use: no side effects and compliant with dosing regimen. Patient sleeps 8 hours per night. Nutrition: balanced diet ,supplemental vitamins and low salt diet. The medical issues the patient is following up for include All identified problems below ,asthma (sob) ,blood sugar issues ,depression ,gastric reflux ,high cholesterol ,osteoporosis/osteopenia and oth er (liver dz, scoliosis, zheng, allergic rhinitis, fatigue). weight :. Note for Follow up for chronic medical issues: she is working on wt loss- she is exercising and has lost 12 pounds in the last year -- she is feeling alot better-- no wheezing cough or sob and no gerd- mood has been good and sleeping good Encounter Diagnosis: Abnormal Glucose Tolerance Test (790.22), Abdominal Pain,General (789.07), Osteopenia (733.90), Asthma (493.11), GERD (530.81), Hyperlipidemia, Unspecified (272.4) [facility] Office Visit On: 07-Sep-2008 13:08 Encounter Reason: Follow up for chronic medical issues - The patient feels well with minor complaints (increased bowel movements) ,has good energy level and is sleeping well. Patient has been compliant with instructions. End: 09-Sep-2008 20:28 Current medication use: no side effects and compliant with dosing regimen. Patient sleeps 8 hours per night. Nutrition: balanced diet ,supplemental vitamins and low salt diet. The medical issues the kristin arriaga is following up for include All identified problems below ,asthma ,blood sugar issues ,depression ,high cholesterol ,osteoporosis/osteopenia and other (fatigue, allergic rhinitis, diverticulitis, dvt). weight :. Note for Follow up for chronic medical issues: she is working on wt loss - back to walkng on treadmill- her breathing back to baseline and her knee is better - working on sugars and freed s eye exam on wednesday - her bp is good and mood has been good, [ADDITIONAL REASON] Bowel problems - The onset of the bowel problems has been gradual and they have been occurring in an intermittent pattern for 1 months. The course has been recurrent. The bowel problems are described as severe. Note for Bowel problems: getting abdominal cramps at hs and then havi ng bowel movements with it.-- all 3 time s it happened she ate late after 9 pm Encounter Diagnosis: Allergic Rhinitis(477.9), Asthma (493.11), Depression (311.), GERD (530.81), Need for prophylactic vaccination and inoculation against influenza (V04.81), Abdominal Pain,General (789.07), Osteopenia (733.90), Hyperlipidemia, Unspecified (272.4), Abnormal Glucose Tolerance Test (790.22) [facility] Office Visit On: 30-Jul-2008 14:39 Encounter Reason: Cough - The onset of the cough has been sudden and 3 days ago. The cough is characterized as productive of mucoid sputum. The amount of sputum produced is scanty. The cough occurs all the time. The symp End: 30-Jul-2008 22:47 toms are aggravated by supine posture, but not by meals. The symptoms have been associated with hoarseness ,runny nose ,sore throat and wheezing, while the symptoms have not been associated with fever o r headache. the color of the sputum is clear. Note for Cough: taking decongestant and elevating her bp so will need to stop - she has nasal spray to use - not overtly productiveEncounter Diagnosis: CHRONIC OBSTRUCTIVE ASTHMA WITH (ACUTE) EXACERBATION (493.22), Bronchitis,Acute (466.0), Candidiasis of Mouth (Thrush) (112.0), Knee pain (719.46) [facility] Office Visit On: 05-Jun-2008 14:29 Encounter Reason: Follow up for chronic medical issues - The patient feels well with no complaints ,has good energy level and is sleeping well. Patient has been compliant with instructions. Current medication use: no lori End: 05-Jun-2008 15:35 e effects. Patient sleeps 8 hours per night. Impact of disease: no overall impact. Nutrition: balanced diet. The medical issues the patient is following up for include All identified problems below ,ast hma ,osteoporosis/osteopenia and other (diverticulitis, ZHENG<.). Note for Follow up for chronic medical issues: Pt also had labs done and a sleep study- cough and sob gone-- Encounter Diagnosis: Abnormal Glucose Tolerance Test (790.22), GERD (530.81), Hyperlipidemia, Unspecified (272.4), Allergic Rhinitis(477.9), Depression (311.), Obstructive sleep apnea (327.23) [facility] Office Visit On: 06-Mar-2008 11:55 Encounter Reason: Follow up for chronic medical issues - The patient does not feel well (continued cough) ,has decreased energy level and is sleeping poorly. Patient has been compliant with instructions. Current medicati End: 06-Mar-2008 22:16 on use: no side effects and compliant with dosing regimen. Nutrition: balanced diet ,supplemental vitamins and low salt diet. The medical issues the patient is following up for include All identified pr oblems below ,asthma ,blood sugar issues ,depression ,gastric reflux ,high blood pressure ,high cholesterol ,osteoporosis/osteopenia and other (allergic rhinitis). weight :. 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 , [ADDITIONAL REASON] Cough - The onset of the cough has been 3 weeks ago. The cough is characterized as productive of mucoid sputum. The amount of sputum produced is scanty. The cough occurs all the keith e. The symptoms are aggravated by supine posture, but not by meals. The symptoms have been associated with headache ,night sweats ,runny nose and wheezing, while the symptoms have not been associated wi th fever ,hoarseness or sore throat. the color of the sputum is clear (cream and white). Note for Cough: she took the avelox and prednisone-- got some better but still tired coughing - Encounter Diagnosis: SOB (786.05), Symptom, Cough (786.2), Abnormal Glucose Tolerance Test (790.22), CHRONIC OBSTRUCTIVE ASTHMA WITH (ACUTE) EXACERBATION (493.22), Other chronic nonalcoholic liver disease (571.8), Hyperlipidemia, Unspecified (272.4), GERD (530.81) [facility] Office Visit On: 13-Feb-2008 8:09 Encounter Reason: Bronchitis - The onset of the bronchitis has been acute and has been occurring in a persistent pattern for 5 days. The course has been constant. The bronchitis has no relieving factors. Associated featu End: 13-Feb-2008 9:13 res include chest tightness ,nasal discharge/stuffy nose and shortness of breath. The patient has a habit to not smoke. Encounter Diagnosis: Symptom, Cough (786.2), Bronchitis,Acute (466.0), SOB (786.05), CHRONIC OBSTRUCTIVE ASTHMA WITH (ACUTE) EXACERBATION (493.22) [facility] Office Visit On: 29-Nov-2007 11:35 Encounter Reason: Follow up for chronic medical issues - The patient feels well with no complaints ,has good energy level and is sleeping well. Patient has been compliant with instructions. Current medication use: no lori End: 29-Nov-2007 22:16 e effects and compliant with dosing regimen. Nutrition: balanced diet and supplemental vitamins. The medical issues the patient is following up for include All identified problems below ,asthma ,blood s ugar issues ,depression ,gastric reflux ,high cholesterol and osteoporosis/osteopenia. Note for Follow up for chronic medical issues: cough gone and she has been good with taking asthma meds and is do ing well from that perspective- mood is good and gerd has been stable, [ADDITIONAL REASON] Follow up, Laboratory Test Results - Date: (08/09/07, they are using the order date again.). , [ADDITIONAL REASON] Follow up, Diagnostic Procedure Results - Diagnostic tests include chest X-ray. Date: (11/23/07). Encounter Diagnosis: Abnormal Glucose Tolerance Test (790.22), Depression (311.), Symptom, Cough (786.2), Hyperlipidemia, Unspecified (272.4), Obstructive sleep apnea (327.23), GERD (530.81), Other chronic nonalcoholic liver disease (571.8) [facility] Nurse Visit On: 02-Sep-2007 8:20 Encounter Diagnosis: Need for prophylactic vaccination and inoculation against influenza (V04.81) End: 02-Sep-2007 8:20 [facility] Office Visit On: 09-Aug-2007 13:41 Encounter Reason: Follow up for chronic medical issues - The patient feels well with no complaints ,has decreased energy level and is sleeping poorly (some nights she sleeps ok). Patient has been compliant with instructi End: 09-Aug-2007 22:39 ons. Current medication use: no side effects and compliant with dosing regimen. Nutrition: balanced diet ,supplemental vitamins and low salt diet. The medical issues the patient is following up for incl ude All identified problems below ,asthma ,blood sugar issues ,depression ,high cholesterol ,osteoporosis/osteopenia and other. weight :. Note for Follow up for chronic medical issues: occ cough with asthma but not daily but once a week- but doesnt need use of albuterol- knee much better and taking zetia and red yeast riceEncounter Diagnosis: GERD (530.81), Asthma (493.11), Abnormal Glucose Tolerance Test (790.22), Hyperlipidemia, Unspecified (272.4), Symptom, Cough (786.2) [facility] Historical Summary On: 01-Jun-2007 11:38 [facility] End: 01-Jun-2007 11:39 Office Visit On: 09-May-2007 12:57 Encounter Reason: Follow up for chronic medical issues - The patient feels well with no complaints ,has good energy level and is sleeping well (sometimes has knee pain). Patient has been compliant with instructions. Curr End: 09-May-2007 13:42 ent medication use: no side effects and compliant with dosing regimen. Nutrition: balanced diet ,supplemental vitamins and low salt diet. The medical issues the patient is following up for include All i dentified problems below ,asthma ,blood sugar issues ,depression ,high cholesterol ,osteoporosis/osteopenia and other (scoliosis). weight :. Note for Follow up for chronic medical issues: took her sebasti[address] ter out she did ok- her fatigue is better and still having some nightime pain - mood is good bp is good and chol is good- in general is - seldom uses albuterol, [ADDITIONAL REASON] Follow up, Laboratory Test Results - Date: (05/05/07- on face sheet). Encounter Diagnosis: Allergic Rhinitis(477.9), Abnormal Glucose Tolerance Test (790.22), Other and unspecified hyperlipidemia (272.4), Asthma,Intrinsic (493.11), Knee pain (719.46), VENOUS EMBOLISM AND THROMBOSIS OF UNSPECIFIED DEEP VESSELS OF LOWER EXTREMITY (453.40) [facility] Office Visit On: 31-Jan-2007 14:34 Encounter Reason: Follow up for chronic medical issues - The patient feels well with minor complaints (bronchitis?) ,has decreased energy level and is sleeping poorly. Patient has been compliant with instructions. Jatin End: 31-Jan-2007 15:37 t medication use: no side effects and compliant with dosing regimen. Patient sleeps 4 hours per night. Nutrition: balanced diet ,supplemental vitamins and low salt diet. The medical issues the patient i s following up for include All identified problems below ,asthma ,blood sugar issues ,high cholesterol ,osteoporosis/osteopenia and other (sob, allergic rhinitis). Note for Follow up for chronic medica l issues: had both knees done- she still has filter in until end of february - she is doing ok except rom of the knee has not been good on the left- so they may need to do more intervention- she is doing therapy- legs arent swelling- prior to bronchitis her breathing had been good without chest pain or wheezing- she didnt have the rx Dr Munguia apparently didnt send in- or got lost, [ADDITIONAL REASON] Follow up, Laboratory Test Results - Date: (01/19/07- on face sheet). Encounter Diagnosis: Other and unspecified hyperlipidemia (272.4), Abnormal Glucose Tolerance Test (790.22), VENOUS EMBOLISM AND THROMBOSIS OF UNSPECIFIED DEEP VESSELS OF LOWER EXTREMITY (453.40), Bronchitis,Acute (466.0) [facility] Office Visit On: 28-Jan-2007 12:30 Encounter Reason: Cough - The onset of the cough has been acute. The cough is characterized as productive of mucoid sputum. The amount of sputum produced is less than a half a cup per day. the color of the sputum is seymour End: 28-Jan-2007 12:45 r. Note for Cough: kimberli TKA 7 weeks ago, concern with infectionEncounter Diagnosis: BRONCHITIS, NOT SPECIFIED ACUTE OR CHRONIC (490.) [facility] Historical Summary On: 06-Dec-2006 14:02 [facility] End: 06-Dec-2006 14:06 Phone Encounter On: 27-Oct-2006 9:54 Encounter Diagnosis: Unspecified Diagnosis End: 27-Oct-2006 9:55 [facility] Office Visit On: 19-Oct-2006 10:31 Encounter Reason: Follow up, Laboratory Test Results - Lab results: other. Date: (10-04-2006). Current symptoms/reason for visit include/s Symptoms include other (tried all the time and gaining wt. and hands and back of End: 20-Oct-2006 6:38 neck itchy.). Note for Follow up, Laboratory Test Results: cough and sob resolvied but still fatgued- not wearing cpap- sleps but not refreshed in am and taking daytime naps feels well enough to under go surgery on her knees, [ADDITIONAL REASON] Follow up for chronic medical issues - The patient feels well with no complaints. Current medication use: no side effects. The medical issues the patient is following up for include asthma ,blood sugar issues ,depression and high cholesterol. Note for Follow up for chronic medical issues: we discussed her new diagnosis of abnl gtt and the pathophysiology of the disease and diet and exercise- we also discussed her fatigue and she has not been wearing her cpap- she had lab and stress test in the last year which otherwise were ok but the sugar- she needs to try to wear the cpap a nd see if her fatigue gets better if doesnt then a second line of workup is necessary- she agreed Encounter Diagnosis: Fatigue (780.79), VENOUS EMBOLISM AND THROMBOSIS OF UNSPECIFIED DEEP VESSELS OF LOWER EXTREMITY (453.40), preop clearance- her asthma and sob are better -just had stress test earlier this year but will need prop ekg, Abnormal Glucose Tolerance Test (790.22), Obstructive sleep apnea (327.23), Other and unspecified hyperlipidemia (272.4), Asthma,Intrinsic (493.11) [facility] Historical Summary On: 27-Sep-2006 13:26 Encounter Diagnosis: Prophylactic vaccination against Streptococcus pneumoniae (V03.82) End: 27-Sep-2006 13:28 [facility] Historical Summary On: 24-Sep-2006 13:20 [facility] End: 24-Sep-2006 13:27 Nurse Visit On: 23-Sep-2006 8:41 Encounter Diagnosis: Need for prophylactic vaccination and inoculation against influenza (V04.81) End: 23-Sep-2006 15:22 [facility] Office Visit On: 21-Sep-2006 11:36 Encounter Reason: Fatigue - The onset of the fatigue has been gradual and has been occurring in a persistent pattern for 6 months. The course has been constant (patient states if no alarm set, she could sleep all day and End: 22-Sep-2006 7:05 still sleep at night ). The fatigue occurs all the time. The symptoms have been associated with depression (sometimes paxil does'nt always help daughter just recently moved away to [place] ) ,excessive sleeping ,headache (at times ) ,hotflashes and runny nose. Note for Fatigue: feels motivated but after a couple hours feels like needs to nap again- no wakes up feeling rested- sleeps 8-9 hours and t his doesnt feel like enough, was not using cpap recently but was- using prior and still had sx- coughing is less -using inhaler routinely now- feels like somebetter but still deep cough -no fever- no colored sputum, [ADDITIONAL REASON] Follow up, Laboratory Test Results - Lab results: abnormal blood lipids. Encounter Diagnosis: Other and unspecified hyperlipidemia (272.4), Fatigue (780.79), SOB (786.05), Symptom, Cough (786.2) [facility] Office Visit On: 03-Sep-2006 11:14 [facility] End: 03-Sep-2006 11:14 Payers MedicareAnthem/Lu enciso guarantor
--- OUTSIDE RECORDS SUMMARY | 2019-01-30 01:46 | XMS RPT_ITS | Continuity of Care Document ---
:1945 Author Organization [facility] Address [facility] [address] [place] [address] Phone Care Team Providers Name Role Phone Ciro Dionne JACUQESJessica Unavailable Josemanuel Camarena DO Unavailable Ken Larkin Unavailable Dr. Zander López Unavailable Jhon Clemencia Unavailable Alex Clement Unavailable Carlos Lee Unavailable Unavailable Kristy Hinton Unavailable Unavailable EYAL RobleroN Tamia Unavailable Unavailable Rosemarie Osorio Unavailable Unavailable Nell Yeager CNP Unavailable Disability Representative, System Unavailable Unavailable Long 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Carla Daniels Unavailable Unavailable Unavailable Unavailable Problems Name Dates Details Abnormal glucose tolerance test (R73.09, 790.22) Comments: diet andex Status: Active Abnormal liver ultrasound (R93.2, 793.3) Status: Active Acute bronchitis due to other specified organisms (J20.8, 466.0) Status: Active Acute embolism and thrombosis of unspecified deep veins of unspecified lower extremity (I82.409, 453.40) Comments: DVT and SI8889?? 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 Annual Medicare Phyiscal WITHOUT abnormal findings (Renamed from Encounter for general adult medical examination without abnormal findings) (Z00.00, V70.9) Status: Active Asthma (J45.909, 493.90) Comments: managed by [facility] Status: Active Asthma with acute exacerbation (J45.901, [...] obstructive asthma with exacerbation) (J44.1, 493.22) Comments: To ER - neg flu, started on pred, 11-02 Cough RSV neg Z reji, on flovent, tessalon1-18 solumed, pred, sputum RRF, chest xray hyperinflation, granulomas- cough, prednison mucinex, flovent, albut, n yquil, dayquilcurrently on wean of steroid, and flovent once daily Status: Active Colonoscopy Comments: 03-05-09 NEG Status: Active Cough (R05, 786.2) Comments: history of PE (2002) after flight, breast cancer Status: Active Cough (R05, 786.2) Comments: on flovent -- will sample -- if symbicort 80/4.5 2puffs twice a day -takes away the cough but resumes when she goes back to [facility] -- will need to chg her maintenance [...] present regimenleft fibula fracture from fall in [place] May 22 2011Lateroal malleolus fracture Status: Active [...] Name Dates Details CALCIUM 600 + D, 798-329PE-ZXUS (Oral Tablet) 1 BID for 0 days Refills: 0 Ordered:14-Oct-2009 KRISHNA RidleyActive CINNAMON, 500MG (Oral Capsule) 2 caps qd for 0 days Refills: 0 Ordered:7-Dec-Xuan Kohli Citalopram Hydrobromide 20 MG Oral Tablet 1 (one) Tablet daily for 90 days Quantity: 90 {Tablet} Refills: 3 Ordered:14-Apr-2018 Jason Tanner DO, DO, Kathleen Start : 14-Apr-2018 Active Flovent HFA 110 MCG/ACT Inhalation Aerosol 2 (two) puffs bid for 0 days Quantity: 1 {Inhaler} Refills: 0 Ordered:29-Nov-2018 Nell Yeager CNP Start : 29-Nov-2018 Active KlonoPIN 0.5 MG Oral Tablet 1 [...] 100 MG Oral Capsule 1 (one) Capsule Capsule tid prn cough for 0 days Quantity: 30 {Capsule} Refills: 0 Ordered:02-Nov-2018 Carlos Lee Start : 02-Nov-2018 Active VITAMIN D3, 2000UNIT [...] days Quantity: 3 {Misc} Refills: 3 Ordered:21-Nov-2013 Kristy Hinton Start : 20-Dec-2012 End : 21-Nov-2013 Inactive Comments:VINITA Albuterol Sulfate (2.5 MG/3ML) 0.083% Inhalation Nebulization Solution 1 (one) Nebulized Soln Nebulized Soln Q4-6 hours PRN for 0 days Quantity: 2 {Box} Refills: 0 Ordered:24-May-2018 Ana M Christine LPN Start : 31-Dec-2016 End : 24-May-2018 [...] daily for 0 days Refills: 0 Ordered:10-Dec-2016 Carla Velasquez LPN Start : 28-Oct-2016 End : 10-Dec-2016 Inactive Augmentin 875-125 MG Oral Tablet 1 Tablet bid for 10 days Quantity: 20 {Tablet} Refills: 0 Ordered:1-Sep-2017 Jason Tanner DO, DO, Kathleen Start : 09-Jul-2017 End : 19-Jul-2017 Inactive AVELOX, 400MG (Oral Tablet) 1 (one) Tablet Daily for 0 days Quantity: 10 {Tablet} Refills: 0 Ordered:30-Jul-2008 Clemencia Ferreira DO Start : 30-Jul-2008 End : 18-Dec-2008 Inactive BACTRIM DS, 800-160MG (Oral Tablet) 1 Tablet bid for 7 days Quantity: 14 {Tablet} Refills: 0 Ordered:24-Jun-2011 Kayycarmenfernie KLINE Nell Cerna Start : 24-Jun-2011 End : 01-Jul-2011 Inactive BIAXIN XL PAC, 500MG (Oral Tablet Extended Release 24 Hour) 1 Tablet ER 24HR bid for 14 days Quantity: 28 {Tablet_ER_24HR} Refills: 0 Ordered:06-Aug-2010 Toy RAISA Nell Cerna Start : 06-Aug-2010 End : 20-Aug-2010 Inactive BIAXIN XL PAC, 500MG (Oral Tablet Extended Release 24 Hour) 1 Tablet ER 24HR bid for 14 days Quantity: 28 {Tablet_ER_24HR} Refills: 0 Ordered:10-Nov-2010 Toy RAISA Nell Cerna Start : 10-Nov-2010 End : 24-Nov-2010 Inactive BIAXIN XL, 500MG (Oral Tablet Extended Release 24 Hour) 2 (two) Tablet ER 24HR daily for 0 days Quantity: 20 {Tablet_ER_24HR} Refills: 0 Ordered:20-Apr-2012 Brooke Conklin Start : 16-Mar-2012 End : 20-Apr-2012 Inactive Bromfed DM 30-2-10 MG/5ML Oral Syrup 10 Milliliter Milliliter q4hr prn cough for 0 days Quantity: 120 {Milliliter} Refills: 0 Ordered:10-Dec-2016 Carla Velasquez LPN Start : 28-Oct-2016 End : 10-Dec-2016 Inactive Comments:max 40ml/day CIPRO, 500 MG/5ML(10%) (Oral Suspension Reconstituted) 1 For Suspension daily for 7 days Quantity: 14 {For_Suspension} Refills: 0 Ordered:07-Sep-2012 Alenafernie KLINE Nell Cerna Start : 07-Sep-2012 End : 14-Sep-2012 Inactive Clotrimazole 10 MG Mouth/Throat Pranay 1 (one) Pranay 5x daily for 10 days Quantity: 50 {Pranay} Refills: 0 Ordered:28-Oct-2016 Toy RAISANell Start : 28-Oct-2016 End : 07-Nov-2016 Inactive [...] Quantity: 28 {Tablet} Refills: 0 Ordered:29-Oct-2017 Toy KLINENell Start : 29-Oct-2017 End : 12-Nov-2017 Inactive [...] daily for 5 days Refills: 0 Ordered:30-Jun-2010 Toy KLINE Soniya Start : 22-May-2010 End : 27-May-2010 Inactive [...] MCG/ACT) End : 09-Aug-2015 Discontinued Comments:Dr. Urbano ZARCOAIATUSSIN AC, 100-10MG/5ML (Oral Syrup) 1 Syrup QID/PRN for 0 days Quantity: 6 {Ounce(s)} Refills: 0 Ordered:28-Jan-2007 Brooke Conklin Start : 28-Jan-2007 End : 09-May-2007 Discontinued GUAIATUSSIN AC, 100-10MG/5ML (Oral Syrup) 1 Syrup 1tsp qhs for 0 days Quantity: 6 {Ounce(s)} Refills: 0 Ordered:06-Aug-2010 Elissa Wallace LPN Start : 06-Aug-2010 End : 10-Nov-2010 Discontinued Comments:This order discontinued per [employer]. HYCODEN (Oral Syrup) (Free Text) 1 tsp q 6 hr prn for 0 days Quantity: 90 ml Refills: 0 Ordered:29-Nov-2012 DO Clemencia A Start : 29-Nov-2012 End : 29-Nov-2012 Discontinued Comments:ninety NASACORT AQ, 55MCG/ACT (Nasal Aerosol) 1 (one) Aerosol Aerosol TAD for 0 days Quantity: 1 {Bottle} Refills: 0 Ordered:09-Aug-2015 Brooke Conklin Start : 25-Feb-2015 End : 09-Aug-2015 Discontinued Comments:This order discontinued per [employer]. NYSTATIN, 174817PRLZ/ML (Mouth/Throat Suspension) 5cc Suspension qid for 10 days for 10 days Quantity: 200 {Milliliter} Refills: 1 Ordered:19-Jul-2013 Otto Ferreira DOa A Start : 19-Jul-2013 End : 19-Jul-2013 Discontinued [...] days Quantity: 90 {Tablet_Disperse} Refills: 3 Ordered:21-Dec-2011 Clemencia Ferreira DO Start : 21-Dec-2011 End : 21-Dec-2011 Discontinued [...] in 05/23CT scan abdomen: 05/23: no liver abnormalitiesSaw Rene and he recomended CT scan yearly, [...] of 07-Dec-2014 Procedures Procedure Dates Details blepharoplasty- 2014 - Completed Cataract Removal, Insert Prosthetic Lens Completed Comments: both eyes 2011 Left shoulder Completed Comments: reverse replacement-Dr Abreu Shoulder Surgery Completed Comments: lt 03/25 Date Value Details 25-Nov-2018 Chest PA and Lateral Result: Comments: See Note; NOTES: [facility] Imaging Services [address] [place] [address] Chest PA and Lateral MR#: [id number] Acct: [id number] Name: SUE HAWTHORNE Rep #: [id number] : 1945 F 73 From: Yousif Hathaway MD PCP: Jessica Tanner DO Status: REG CLI Study: Chest PA and Lateral Date of Exam: 11/25/18 Exam# [id number] Ordering Dr: Nell Yeager CAMPUS DIRECTOR-C STUDY: X-RAY CHEST REASON FOR EXAM: Female, 73 years old. Cough. COPD and asthma. TECHNIQUE: PA and lateral views of the chest. COMPARISON: Comparison is made with prior study dated October 29, 2018. FINDINGS: Hyperinflation. Scattered calcified granulomas. There is no demonstrated pleural abnormality. Normal size heart. Normal mediastinum and ester. Normal visualized pulm onary arteries. Normal visualized aortic arch and descending thoracic aorta. There are diffuse degenerative changes of the visualized thoracic spine. Left shoulder replacement. There is no demonstrate d abnormality of the visualized soft tissue structures of the upper abdomen. RAD/Chest PA and Lateral IMPRESSION: Hyperinflation. The lungs are c lear. Electronically Signed: Yousif Hathaway MD at 12:50 EST Tel [phone], Service support , CC: Nell Yeager CAMPUS DIRECTOR; Jessica Tanner DO Track Car Operator: Signed 29-Oct-2018 Discharge Instruction Result: Comments: See Note; NOTES: [facility] Medical Records Department [address] [place] [address] Discharge Instruction 10/29/18 1511 MR#: [id number] Acct: [id number] Name: ESTRELLITA HAWTHORNE BENNIEKARTHIK Mayda Rep #: [id number] : 1945 73 From: Stephany Francois DO [...] your Primary Care Provider. Call [facility] ([phone]) or report to the closest Emergency Room. Call 911 if necessary. 10/29/18 1513 <Electronically signed by Stephany Francois DO> Date Stephany Francois DO Cosigner Signature (If Indicated): Date CC: Jessica Tanner DO 29-Oct-2018 Emergency Department Summary Result: Comments: See Note; NOTES: [facility] Medical Records Department [address] [place] [address] Emergency Department Summary 10/29/18 1509 MR#: [id number] Acct: [id number] Name: CHESTERSUE Ohara Rep #: [id number] : 1945 73 From: Stephany Francois DO [...] [Asthmatic bronchitis] This note was generated with [employer] dictation software. It may contain i ncorrect words, spelling, and punctuation that were not noted in review of the chart prior to signing ED Disposition - Plan for ED Patient: Chief Complaint: Cough Referrals: Jessica Tanner, [[facility] Care Provider] - What to do if you have Problems For any increased pain, shortness of breath, bleeding, nausea or vomiting, chest pain, or any unexpected problems, contact your Primary Care Prov ider. Call [facility] ([phone]) or report to the closest Emergency Room. Call 911 if necessary. 10/29/18 2067 <Electronically signed by Stephany Francois DO> Date ____ Stephnay Francois DO Cosigner Signature (If Indicated): Date CC: Jessica Tanner DO 29-Oct-2018 Chest PA and Lateral Result: Comments: See Note; NOTES: [facility] Imaging Services [address] [place] [address] Chest PA and Lateral MR#: [id number] Acct: [id number] Name: SUE HAWTHORNE Rep #: [id number] : 1945 F 73 From: Jay Jones MD PCP: Jessica Tanner DO Status: DEP ER Study: Chest PA and Lateral Date of Exam: 10/29/18 Exam# [id number] Ordering Dr: Stephany Francois DO STUDY: X-RAY [...] CC: Jessica Tanner DO; Stephany Francois DO Track Car Operator: Signed 21-Jul-2018 Orthopedic Visit Report Result: Comments: See Note; NOTES: [facility] [address] [place] [address] OFFICE VISIT Date of Service: 07/12/18 MR#: [id number] Acct: [id number] Name: SUE HAWTHORNE Rep #: [id number] : 1945 Provider: Ginny Currie DO Age/Sex: 72/F Location: [facility] [place].SMO Status: Signed Intake Intake Visit Reasons: right [...] 3 Diagnoses Right foot pain M79.671 07/21/18 5357 <Electronically signed by Ginny Currie DO> Date Ginny Currie DO Cos igner Signature: Date (if applicable) CC: 12-Jul-2018 Foot min 3 Views Result: Comments: See Note; NOTES: [facility] Imaging Services [address] [place] [address] Foot min 3 Views MR#: [id number] Acct: [id number] Name: SUE HAWTHORNE Rep #: [id number] : 1945 F 72 From: Mario Salguero MD PCP: Jessica Tanner DO Status: REG CLI Study: Foot min 3 Views Date of Exam: 07/12/18 Exam# [id number] Ordering Dr: Ginny Currie DO STUDY: X-RAY [...] CC: Ginny Currie DO; Jessica Tanner DO Track Car Operator: Signed 05-Jul-2018 PT D/C Summary (1) Result: Comments: See Note; NOTES: [facility] Physical Therapy [facility] [address] [place] [address] Fax REHABILITATION SERVICES DISCHAR GE SUMMARY MR#: [id number] Acct: [id number] Name: SUE HAWTHORNE Rep #: [id number] : 1945 72 From: Violetta Lazcano PT, Cert. MDT Referring Dr.: Josemanuel Abreu DO Status: REG RCR Insurance: built.ioAR E PART A B [employer] HP - PT D/C Summary It has [...] HAS GOOD ELBOW FLEX/EXT STRENGTH AND LEFT BRICK SETTER OPERATOR STRENGTH = 45 LBS COMPARED TO 55LBS [...] please feel free to call me at [phone]. Thank you for the referral of this patient. Sincerely, Violetta Lazcano <Electronically signed by Violetta Lazcano PT, Cert. MDT> 07/05/18 1348 CC: Jessica Tanner DO; Josemanuel Abreu DO HUSSEIN Signed 20-Jun-2018 Orthopedic Visit Report Result: Comments: See Note; NOTES: [facility] Orthopaedics AND Sports Medicine [address] [place] [address] OFFICE VISIT Date of Service: 06/07/18 MR#: [id number] Acct: [id number] Name: SUE HAWTHORNE Rep #: [id number] : 1945 Provider: KRISTIN Amezquita Age/Sex: 72/F Location: [facility] [place].SMO Status: Signed Intake Intake Visit Reasons: f/u [...] total replacement of left shoulder Z96.612 06/20/18 5319 <Electronically signed by Ken FOSTER> Date Ken FOSTER Cosigner Signature: Date (if applicable) CC: 06-Jun-2018 Re-Evaluation - PT (1) Result: Comments: See Note; NOTES: [facility] Physical Therapy [facility] [address] [place] [address] Fax REEVALUATION / MEDICARE [facility] MR#: [id number] Acct: [id number] Name: SUE HAWTHORNE Rep #: [id number] : 1945 72 From: Violetta Lazcano PT, [...] do not hesitate to contact me at [phone] by phone or if you have questions or concerns regarding this new plan of care! Sincerely, Violetta Lazcano <Electronically signed by Violetta Lazcano PT, Cert. MDT> 06/06/18 1222 CC: Jessica Tanner DO; Josemanuel Abreu DO HUSSEIN Signed For Medicare only, by signing this I certify the plan of care. Physicians Signature Date 13-May-2018 Re-Evaluation - PT (1) Result: Comments: See Note; NOTES: [facility] Physical [facility]. [address] [place] [address] Fax REEVALUATION / MEDICARE [facility] PHYSICAL THERAPY MR#: [id number] Acct: [id number] Name: SUE HAWTHORNE Rep #: [id number] : 1945 72 From: Violetta Lazcano PT, [...] do not hesitate to contact me at [phone] by phone or Fax: if you have questions or concerns regarding this new plan of care! Sincerely, Violetta Lazcano <Electronically signed by Violetta Lazcano PT, Cert. MDT> 05/13/18 1228 CC: Jessica Tanner DO; Josemanuel Abreu DO HUSSEIN Signed For Medicare only, by signing this I certify the plan of care. Physicians Signature Date 12-May-2018 Dexa Bone Density Study Result: Comments: See Note; NOTES: [facility] Imaging Services [address] [place] [address] Dexa Bone Density Study MR#: [id number] Acct: [id number] Name: SUE HAWTHORNE Rep #: [id number] : 1945 F 72 From: Yousif Hathaway MD PCP: Jessica Tanner DO Status: REG CLI Study: Dexa Bone Density Study Date of Exam: 05/12/18 Exam# [id number] Ordering Dr: Jessica Tanner DO ILA DY: [...] Yousif Hathaway MD at 15:14 EDT Tel [phone], Service support , CC: Jessica Tanner DO Track Car Operator: Signed 05-May-2018 Orthopedic Visit Report Result: Comments: See Note; NOTES: [facility] [place] [address] OFFICE VISIT Date of Service: 04/25/18 MR#: [id number] Acct: [id number] Name: SUE HAWTHORNE Rep #: [id number] : 1945 Provider: Josemanuel Abreu DO Age/Sex: 72/F Location: [facility] [place].SMO Status: Signed Intake Intake Visit Reasons: LEFT [...] necessary unless there is an issue. Did nikki m the patient there is been a [...] 2 Views Result: Comments: See Note; NOTES: [facility] Imaging Services [address] [place] [address] Shoulder min 2 Views MR#: [id number] Acct: [id number] Name: SUE HAWTHORNE Mayda Rep #: [id number] : 1945 F 72 From: Mario Salguero MD PCP: Jessica Tanner DO Status: REG CLI Study: Shoulder min 2 Views Date of Exam: 04/25/18 Exam# [id number] Ordering Dr: Josemanuel Abreu DO STUDY: X-RAY [...] CC: Jessica Tanner DO; Josemanuel Abreu DO Track Car Operator: Signed 06-Apr-2018 Orthopedic Visit Report Result: Comments: See Note; NOTES: [facility] Orthopaedics AND Sports Medicine [address] [place] [address] OFFICE VISIT Date of Service: 03/28/18 MR#: [id number] Acct: [id number] Name: SUE HAWTHORNE Rep #: [id number] : 1945 Provider: Josemanuel Abreu DO Age/Sex: 72/F Location: [facility] [place].SMO Status: Signed Intake Intake Visit Reasons: LEFT [...] - PT Result: Comments: See Note; NOTES: [facility] Physical Therapy [facility] [address] [place] [address]. [address] [place] [address] Fax REHABILITATION SERVICES INITIAL EVALUATION MR#: [id number] Acct: [id number] Name: SUE HAWTHORNE Rep #: [id number] [...] OR CROSS BODY MOVEMENT - SEE THE [facility] REVERSE TOTAL SHOULDER ARTHROPLASTY PROTOCOL IN FOLDER. MOIST HEAT AND COLD PACK TREATMENTS NEEDED. POSTURE CORRECTION/STRENGTHENING, INSTRUCTION IN APPROPRIA TE BODY MECHANICS AND ACTIVITY MODIFICATIONS. KIMBERLI UE ROM, STRETCHING AND STRENGTHENING. HEP INSTRUCTION. - Subjective Subjective: Diagnosis: LEFT RTSA WITH SUBSCAP REPAIR. MAR 15 2018 (2 WEEKS PO). Work /Leisure: RETIRED. [employer] EVERY OTHER MONTH ONE DAY. LIKES [...] be FAXED BACK to u s at [phone] for Medicare purposes. Please let me know [...] 2 Views Result: Comments: See Note; NOTES: [facility] Imaging Services [address] [place] [address] Foot 2 Views MR#: [id number] Acct: [id number] Name: SUE HAWTHORNE Rep #: [id number] : F 72 From: Brett Hedrick DO PCP: Jessica Tanner DO Status: REG CLI Study: Foot 2 Views Date of Exam: 03/28/18 Exam# [id number] Ordering Dr: Josemanuel Abreu DO STUDY: X-RAY [...] Brett Hedrick DO at 17:03 EDT Tel [phone], Service support , CC: Jessica Tanner DO; Josemanuel Abreu DO Track Car Operator: Signed 28-Mar-2018 Shoulder min 2 Views Result: Comments: See Note; NOTES: [facility] Imaging Services [address] [place] [address] Shoulder min 2 Views MR#: [id number] Acct: [id number] Name: SUE HAWTHORNE Rep #: [id number] : 1945 F 72 From: Brett Hedrick DO PCP: Jessica Tanner DO Status: REG CLI Study: Shoulder min 2 Views Date of Exam: 03/28/18 Exam# [id number] Ordering Dr: Josemanuel Abreu DO STUDY: X-RAY [...] Brett Hedrick DO at 17:02 EDT Tel [phone], Service support , CC: Jessica Tanner DO; Josemanuel Abreu DO Track Car Operator: Signed 23-Mar-2018 Orthopedic Visit Report Result: Comments: See Note; NOTES: [facility] Orthopaedics AND Sports Medicine [address] [place] [address] OFFICE VISIT Date of Service: 03/11/18 MR#: [id number] Acct: [id number] Name: SEU HAWTHORNE Rep #: [id number] : 1945 Provider: Josemanuel Abreu DO Age/Sex: 72/F Location: [facility] [place].SMO Status: Signed Intake Intake Visit Reasons: LEFT [...] humerus with rout ine healing, subsequent encounter S42.871R Plan Assessment: Left closed 4 part proximal [...] Lead Electrocardiogram Result: Comments: See Note; NOTES: [facility] Cardiovascular Services [address] [place] [address] 12 Lead EKG 03/04/18 1116 MR#: [id number] Acct: [id number] Name: SUE HAWTHORNE Rep #: [id number] : 1945 72 From: Trey Bob MD Attending Dr: Ginny Currie DO Status: PRE [facility] Ordering Dr: Ginny Currie DO Date: 03/04/18 Location: [facility] Sex: F C Admitted: Test Reason : [...] Abnormal ECG Confirmed by TREY BOB ([id number]), image editor REA DIAS ([id number]) on 03/08/2018 4:08:06 PM Referred By: Ginny Currie Confirmed By:TREY BOB 03/08/18 1608 Date Trey Bob MD CC: Ginny Currie DO; Jessica Tanner DO Signed 02-Mar-2018 Coronals Sag Multi Obl 3-D Rec Result: Comments: See Note; NOTES: [facility] Imaging Services [address] [place] [address] Coronals Sag Multi Obl 3-D Rec MR#: [id number] Acct: [id number] Name: SUE HAWTHORNE Rep #: [id number] : 1945 F 72 From: Kapil Gonzales MD PCP: Jessica Tanner DO Status: REG CLI Study: Coronals Sag Multi Obl 3-D Rec Date of Exam: 03/02/18 Exam# [id number] Ordering Dr: Nicole Currie DO STUDY: CT [...] CC: Ginny Currie DO; Jessica Tanner DO Track Car Operator: Signed 02-Mar-2018 Coronals Sag Multi Obl 3-D Rec Result: Comments: See Note; NOTES: [facility] Imaging Services [address] [place] [address] Coronals Sag Multi Obl 3-D Rec MR#: [id number] Acct: [id number] Name: SUE HAWTHORNE Rep #: [id number] : 1945 F 72 From: Kapil Gonzales MD PCP: Jessica Tanner DO Status: REG CLI Study: Coronals Sag Multi Obl 3-D Rec Date of Exam: 03/02/18 Exam# [id number] Ordering Dr: Nicole Currie DO ADDENDUM by Kapil Gonzales MD on 03/02/[address]/Coronals Sag Multi Obl 3-D Rec IMPRESSION: Impacted, comminuted, mildly displaced, intra-articular fracture of the proxim al humerus involving the neck and tuberosities Nondisplaced fracture at the coracoid process Electronically Signed: Kapil Gonzales MD at 21:56 EDT Tel , Service support [phone], 03/02/182202 Date cc: Ginny Rosey JACQUES; Jessica Ciro JACQUES * Signed ADDENDUM by Kapil Gonzales MD on 03/02/18 at 2156 ADDENDUM There is nondisplaced fracture at the coracoid (image 17/132 axial). The remainder of the scapula is intact. 03/02/18 Date cc: Ginny Currie DO; Jessica Tanner DO * Signed STUDY: CT LEFT UPPER EXTREMITY / HUMERUS REASON FOR EXAM: Female, 72 years old. Fracture RADIATION DOSAGE (If Supplied By [facility]): CTDIvol = ( 28.83 ) [...] CC: Ginny Currie DO; Jessica Tanner DO Track Car Operator: Signed 02-Mar-2018 Extremity Upper without Contra Result: Comments: See Note; NOTES: [facility] Imaging Services [address] [place] [address] Extremity Upper without Contra MR#: [id number] Acct: [id number] Name: SUE HAWTHORNE Rep #: [id number] : 1945 F 72 From: Kapil Gonzales MD PCP: Jessica Tanner DO Status: REG CLI Study: Extremity Upper without Contra Date of Exam: 03/02/18 Exam# [id number] Ordering Dr: Nicole Currie DO STUDY: CT [...] CC: Ginny Currie DO; Jessica Tanner DO Track Car Operator: Signed 02-Mar-2018 Extremity Upper without Contra Result: Comments: See Note; NOTES: [facility] Imaging Services [address] [place] [address] Extremity Upper without Contra MR#: [id number] Acct: [id number] Name: SUE HAWTHORNE Rep #: [id number] : 1945 F 72 From: Kapil Gonzales MD PCP: Jessica Tanner DO Status: REG CLI Study: Extremity Upper without Contra Date of Exam: 03/02/18 Exam# [id number] Ordering Dr: Nicole Currie DO ADDENDUM by Kapil Gonzales MD on 03/02/[address]/Extremity Upper without Contra IMPRESSION: Impacted, comminuted, mildly displaced, intra-articular fracture of the proxim al humerus involving the neck and tuberosities Nondisplaced fracture at the coracoid process Electronically Signed: Kapil Gonzales MD at 21:56 EDT Tel , Service support [phone], 03/02/18 2203 Date cc: Ginny Currie DO; Jessica Tanner [...] old. Fracture RADIATION DOSAGE (If Supplied By [facility]): CTDIvol = ( 28.83 ) [...] CC: Ginny Currie DO; Jessica Tanner DO Track Car Operator: Signed 01-Mar-2018 Orthopedic Visit Report Result: Comments: See Note; NOTES: [facility] Orthopaedics AND Sports Medicine [address] [place] [address] OFFICE VISIT Date of Service: 02/24/18 MR#: [id number] Acct: [id number] Name: SUE HAWTHORNE Rep #: [id number] : 1945 Provider: Ginny Currie DO Age/Sex: 72/F Location: [facility] [place].SMO Status: Signed Intake Intake Visit Reasons: LEFT [...] 3 Views Result: Comments: See Note; NOTES: [facility] Imaging Services [address] [place] [address] 12493 Elbow min 3 Views MR#: [id number] Acct: [id number] Name: SUE HAWTHORNE Rep #: [id number] DO B: 1945 F 72 From: Shanell Branch MD PCP: Jessica Tanner DO Status: REG CLI Study: Elbow min 3 Views Date of Exam: 02/24/18 Exam# [id number] Ordering Dr: Ginny Currie DO STUDY: X-RAY [...] CC: Ginny Currie DO; Jessica Tanner DO Track Car Operator: Signed 24-Feb-2018 Shoulder min 2 Views Result: Comments: See Note; NOTES: [facility] Imaging Services [address] [place] [address] 89016 Shoulder min 2 Views MR#: [id number] Acct: [id number] Name: SUE HAWTHORNE Rep #: [id number] : 1945 F 72 From: Mario Salguero MD PCP: Jessica Tanner DO Status: REG CLI Study: Shoulder min 2 Views Date of Exam: 02/24/18 Exam# [id number] Ordering Dr: Ginny Currie DO STUDY: X-RAY [...] CC: Ginny Currie DO; Jessica Tanner DO Track Car Operator: Signed 20-Feb-2018 Discharge Instruction Result: Comments: See Note; NOTES: [facility] Medical Records Department [address] [place] [address] Discharge Instruction 02/20/18 1358 MR#: [id number] Acct: [id number] Name: ESTRELLITA HAWHTORNE Rep #: [id number] : 1945 72 From: Chelle Zaragoza MD [...] your Primary Care Provider. Call [facility] ([phone]) or report to the closest Emergency Room. Call 911 if necessary. 02/20/18 1401 <Electronically signed by Chelle Zaragoza MD&amp ;#62; Date Chelle Zaragoza MD Cosigner Signature (If Indicated): Date CC: Jessica Tanner DO 20-Feb-2018 Emergency Department Summary Result: Comments: See Note; NOTES: [facility] Medical Records Department [address] [place] [address] Emergency Department Summary 02/20/18 1128 MR#: [id number] Acct: [id number] Name: SUE HAWTHORNE Rep #: [id number] : 1945 72 From: Chelle Zaragoza MD [...] mechanical fall This note was generated with Accuvantation software. It may contain incorrect words, spelling, [...] your Primary Care Provider. Call [facility] ([phone]) or report to the closest Emergency Room. Call 911 if necessary. 02/20/18 1358 <Electron ically signed by Chelle Zaragoza MD> Date Chelle Zaragoza MD Cosigner Signature (If Indicated): Date CC: Jessica Tanner DO 20-Feb-2018 Foot min 3 Views Result: Comments: See Note; NOTES: [facility] Imaging Services [address] [place] [address] Foot min 3 Views MR#: [id number] Acct: [id number] Name: SUE HAWTHORNE Rep #: [id number] : 1945 F 72 From: Rona Bowen MD PCP: Jessica Tanner DO Status: PRE ER Study: Foot min 3 Views Date of Exam: 02/20/18 Exam# [id number] Ordering Dr: Chelle Zaragoza MD STUDY: X-RAY [...] CC: Chelle Zaragoza MD; Jessica Tanner DO Track Car Operator: Signed 20-Feb-2018 Shoulder min 2 Views Result: Comments: See Note; NOTES: [facility] Imaging Services [address] [place] [address]2788 Shoulder min 2 Views MR#: [id number] Acct: [id number] Name: SUE HAWTHORNE Rep #: [id number] : 1945 F 72 From: Rona Bowen MD PCP: Jessica Tanner DO Status: PRE ER Study: Shoulder min 2 Views Date of Exam: 02/20/18 Exam# [id number] Ordering Dr: Chelle Zaragoza MD STUDY: X-RAY [...] CC: Chelle Zaragoza MD; Jessica Tanner DO Track Car Operator: Signed 22-Feb-2017 Chest PA and Lateral Result: Comments: See Note; NOTES: [facility] Imaging Services [address] [place] [address] Verdana 4d Chest PA and Lateral MR#: [id number] Acct: [id number] Name: SUE HAWTHORNE Rep # : [id number] : 1945 F 71 From: Naomi Strauss MD PCP: Jessica Tanner DO Status: REG CLI Study: Chest PA and Lateral Date of Exam: 02/22/17 Exam# [id number] Ordering Dr: Tamia Wood CAMPUS DIRECTOR-Sussy ILA DY: X-RAY CHEST REASON FOR EXAM: [...] , CC: Tamia Wood; Jessica Tanner DO Track Car Operator: Signed 12-Nov-2016 Abdomen/Pelvis WITH Contrast Result: Comments: See Note; NOTES: [facility] Imaging Services [address] [place] [address] Verdana 4d Abdomen/Pelvis WITH Contrast MR#: [id number] Acct: [id number] Name: SUE HAWTHORNE Rep #: [id number] : 1945 F 71 From: Brett Hedrick DO PCP: Doug Barrett Status: REG CLI Study: Abdomen/Pelvis WITH Contrast Date of Exam: 11/12/16 Exam# [id number] Ordering Dr: Doug Barrett ILA DY: CT [...] Brett Hedrick DO at 15:08 EST Tel [phone], Service support [phone], CC: Doug Barrett Track Car Operator: Signed 30-Jun-2016 Wrist min 3 Views Result: Comments: See Note; NOTES: [facility] Imaging Services [address] [place] [address] [facility] 4d Wrist min 3 Views MR#: [id number] Acct: [id number] Name: SUE HAWTHORNE Mayda Rep #: [id number] : 1945 F 70 From: Omar Salazar MD PCP: Clemencia Ferreira DO Status: REG CLI Study: Wrist min 3 Views Date of Exam: 06/30/16 Exam# [id number] Ordering Dr: Ginny Currie DO STUDY: X-RA [...] CR at 14:28 EDT , Service support [phone], CC: Ginny Currie DO; Clemencia Ferreira DO Track Car Operator: Signed 29-May-2016 OT D/C Summary Result: Comments: See Note; NOTES: [facility] Occupational Therapy [facility] 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 Thank you for the referral of this patient. Sincerely, Richelle Myers <Electronically signed by Richelle Myers > 05/29/16 1224 CC: Clemencia Ferreira DO MK Signed 13-May-2016 OT General Evaluation Result: Comments: See Note; NOTES: [facility] Occupational Therapy [facility] [address] [place] [address] Fax REHABILITATIO N SERVICES INITIAL EVALUATION MR#: [id number] Acct: [id number] Name: SUE HAWTHORNE Rep #: [id number] : 1945 70 From: Richelle Myers Referring [...] Wrist: left 60/65 Right 60/50 - Strength A P Supervisor: left 55# right 60# Lateral Pinch: left [...] be FAXED BA FLOWER to us at [phone] for Medicare purposes. Please let me know if there are questions or concerns regarding this plan of care. Physician Signature: ____Date: <Electronically signed by Richelle Myers > 05/13/16 0759 CC: Clemencia Ferreira DO MK Signed For Medicare only, by signing this I certify the plan of care. Physicians Signature Date 08-May-2016 Abdomen WITH IV Contrast Result: Comments: See Note; NOTES: [facility] Imaging Services [address] [place] [address] Verdana 4d Abdomen WITH IV Contrast MR#: [id number] Acct: [id number] Name: SUE LEVIN Rep #: [id number] : 1945 F 70 From: Ba Calvillo MD PCP: Clemencia Ferreira DO Status: REG CLI Study: Abdomen WITH IV Contrast Date of Exam: 05/08/16 Exam# [id number] Ordering Dr: Clemencia Craig DO STUDY: CT [...] MD at 16:42 EDT , Service support [phone], CC: Clemencia Ferreira DO Track Car Operator: Signed 05-May-2016 Chest PA and Lateral Result: Comments: See Note; NOTES: [facility] Imaging Services [address] [place] [address] [place] 4d Chest PA and Lateral MR#: [id number] Acct: [id number] Name: Sussy HAWTHORNE KARTHIK [place] Rep #: [id number] : 1945 F 70 From: Omar Salazar MD PCP: Clemencia Ferreira DO Status: REG CLI Study: Chest PA and Lateral Date of Exam: 05/05/16 Exam# [id number] Ordering Dr: Clemencia Ferreira DO STUDY: X-RAY CHEST REASON FOR EXAM: Female, 70 years old. No chest complaints. History of bilateral mastectomy for cancer. Yearly checkup TECHNIQUE: PA and lateral views of the chest. COMP [facility]: Prior chest x-ray from 07-27-12. FINDINGS: The [...] FACR at 16:55 EDT , Service support [phone], Fax RAD/Chest PA and Lateral IMPRESSION: Normal x-ray examination of the chest. Stable since last examination. Electronically Signed: Omar Salazar MD, FACR 05/05 at 16:55 EDT , Service support [phone], CC: Clemencia Ferriera DO Track Car Operator: Signed 31-May-2015 Abdomen WITH and W/O Contrast Result: Comments: See Note; NOTES: [facility] Imaging Services [address] [place] [address] MRI Report MR#: [id number] Acct: [id number] Name: SUE HAWTHORNE Rep #: [id number] D OB: 1945 F 69 From: Phani Davis MD PCP: Clemencia Ferreira DO Status: REG CLI Study: Abdomen WITH and W/O Contrast Date of Exam: 05/31/15 Exam# [id number] Ordering Dr: Clemencia Ferreira DO STUDY: MRI [...] MD at 23:52 EDT , Service support [phone], Fax CC: Clemencia Ferreira DO Track Car Operator: Signed 29-May-2015 Dexa Bone Density Study (HP) Result: Comments: See Note; NOTES: [facility] Imaging Services [address] [place] [address] Bone Density Report MR#: [id number] Acct: [id number] Name: SUE HAWTHORNE Rep #: [id number] : 1945 F 69 From: Yousif Hathaway MD PCP: Clemencia Ferreira DO Status: REG CLI Study: Dexa Bone Density Study () Date of Exam: 05/29/15 Exam# [id number] Ordering Dr: Clemencia Ferreira DO STUDY: DUAL [...] Yousif Hathaway MD at 15:45 EDT Tel [phone], Service support [phone], CC: Clemencia Ferreira DO Track Car Operator: Signed 25-Apr-2015 Liver Result: Comments: See Note; NOTES: [facility] Imaging Services [address] [place] [address] Ultrasound Report MR#: [id number] Acct: [id number] Name: SUE HAWTHORNE Rep #: [id number] : 1945 F 69 From: Naomi Strauss MD PCP: Clemencia Ferreira DO Status: REG CLI Study: Liver Date of Exam: 04/25/15 Exam# [id number] Ordering Dr: Clemencia Ferreira DO STUDY: ABDOMINAL [...] 1 1:49 EDT Tel , Service support [phone], CC: Clemencia Ferreira DO Track Car Operator: Signed 18-Apr-2015 Foot min 3 Views Result: Comments: See Note; NOTES: [facility] Imaging Services [address] [place] [address] Radiology Report MR#: [id number] Acct: [id number] Name: SUE HAWTHORNE Rep #: [id number] : 1945 F 69 From: Shanell Branch MD PCP: Clemencia Ferreira DO Status: REG CLI Study: Foot min 3 Views Date of Exam: 04/18/15 Exam# [id number] Ordering Dr: Ginny Currie DO STUDY: X-RAY [...] MD at 14:31 EDT , Service support [phone], RAD/Foot min 3 Views IMPRESSION: Stable arthrosis with calcaneal spurs. Near-anatomic alignment of the base of the fifth metatarsal fracture with no complications. Electronically Signed: Shanell Branch MD at 14:31 EDT , Service support [phone], CC: Ginny Currie DO; Clemencia Ferreira DO Track Car Operator: Signed 12-Mar-2015 Foot min 3 Views Result: Comments: See Note; NOTES: [facility] Imaging Services [address] [place] [address] Radiology Report MR#: [id number] Acct: [id number] Name: SUE HAWTHORNE Rep #: [id number] : 1945 F 69 From: Shanell Branch MD PCP: Clemencia Ferreira DO Status: REG CLI Study: Foot min 3 Views Date of Exam: 03/12/15 Exam# [id number] Ordering Dr: Ginny Currie DO STUDY: X-RAY [...] MD at 15:44 EDT , Service support [phone], RAD/Foot min 3 Views IMPRESSION: No interval change and no acute complications since the prior study. Electronically Signed: Shanell Branch MD 03/12 at 15:44 EDT , Service support [phone], CC: Ginny Currie DO; Clemencia Ferreira DO Track Car Operator: Signed 15-Feb-2015 Emergency Department Summary Result: Comments: See Note; NOTES: [facility] Medical Records Department [address] [place] [address] Emergency Department Summary MR#: [id number] Acct: [id number] Name: Sussy HAWTHORNE Rep #: [id number] : 1945 69 From: Stephany Francois DO [...] patient also sees an orthopedic surgeon in [place]. A LLERGIES: No known drug allergies. SOCIAL [...] a postoperative shoe, given crutches, script for [place] for pain, instructed to ice and elevate the extremity. Follow up with her orthopedic surgeon or Dr. Currie at the patient's request. DISPOSITION: Disch arged to home in stable condition. Stephany Francois DO T: NTS JOB: [id number] 02/15/15 1039 <Electronically signed by Stephany Francois DO> Date Stephany Carolinaearnestine JACQUES CC: Clemencia Jhon Date Dictated: 02/05/151752 Date Transcribed: 02/05/151752 Track Car Operator: Signed 12-Feb-2015 Foot min 3 Views Result: Comments: See Note; NOTES: [facility] Imaging Services [address] [place] [address] Radiology Report MR#: [id number] Acct: [id number] Name: SUE HAWTHORNE Rep #: [id number] : 1945 F 69 From: Sohan Castaneda MD PCP: Clemencia Ferreira DO Status: REG CLI Study: Foot min 3 Views Date of Exam: 02/12/15 Exam# [id number] Ordering Dr: Ginny Currie DO STUDY: X-RAY [...] at 11:36 EDT Tel , Service support [phone], RAD/Foot min 3 Views IMPRESSION: 1. Fracture of the b ase of the fifth metatarsal bone, unchanged. 2. Degenerative changes. Electronically Signed: Sohan Castaneda MD at 11:36 EDT Tel , Service support [phone], Fax CC: Ginny Currie DO; Clemencia Ferreira DO Track Car Operator: Signed 05-Feb-2015 Discharge Instruction Result: Comments: See Note; NOTES: [facility] Medical Records Department [address] [place] [address] Discharge Instruction 02/05/151749 MR#: [id number] Acct: [id number] Name: SUE HAWTHORNE Rep #: [id number] : 1945 69 From: Stephany Francois DO PCP: Clemencia Ferreira DO Status: PRE ER ED Disposition - Plan for ED Patient: Chief Complaint: Lower Extremity Injury Instruc tions: ED Fracture, Foot Prescriptions: Hydrocodone Bitart/Apap 5-325 [[place] 5/325] 1 - 2 tablet PO Q4H [...] problems, contact your doctor. Call [facility] ( [phone]) or report to the closest Emergency Room. Call 911 if necessary. 02/05/151750 <Electronically signed by Stephany Francois DO> Date Stephany Francois DO Cosigner Signature (If Indicated): Date CC: Clemencia Ferreira DO 05-Feb-2015 Foot min 3 Views Result: Comments: See Note; NOTES: [facility] Imaging Services [address] [place] [address] Radiology Report MR#: [id number] Acct: [id number] Name: SUE HAWTHORNE Rep #: [id number] : 1945 F 69 From: Yousif Hathaway MD PCP: Clemencia Ferreira DO Status: DEP ER Study: Foot min 3 Views Date of Exam: 02/05/15 Exam# [id number] Ordering Dr: Jaida, Ed P. STUDY: X-RAY - RIGHT FOOT CLINICAL: [...] Yousif Hathaway MD at 8:47 EDT Tel [phone], Service support [phone], CC: Clemencia Ferreira DO; ED PHYSICIAN PROVIDER Track Car Operator: Signed 07-Jun-2014 Liver Result: Comments: See Note; NOTES: [facility] Imaging Services [address] [place] [address] Ultrasound Report MR#: [id number] Acct: [id number] Name: SUE HAWTHORNE Rep #: [id number] : 1945 F 68 From: Yousif Hathaway MD PCP: Clemencia Ferreira DO Status: REG CLI Study: Liver Date of Exam: 06/07/14 Exam# [id number] Ordering Dr: Clemencia Ferreira DO STUDY: ABDOMINAL [...] Yousif Hathaway MD at 10:40 EDT Tel [phone], Service support , CC: Clemencia Ferreira DO Track Car Operator: Signed Immunization Name Dates Details Influenza (3 years and up) on: 02-Sep-2007 Influenza (3 years and up) on: 07-Sep-2008 Comments: Lot #:[id number] date:04/16Amount given:0.5mlRoute: IMSite given:left delGiven by: BEBA Higgins Influenza (3 years and up) on: 05-Aug-2009 Comments: Lot #:[id number] date:mount given:0.5mlRoute: IMSite given:left deltGiven by: BEBA [...] smoker Vital Signs Date Test Result Details 09-Iji-008015:28 Temperature 98 f Comments: Method: Temporal Pulse 95 /min Comments: Pattern: Regular Respiration Rate 17 /min Comments: Pattern: Unlabored O2 SAT 97 % Comments: Room air BP Systolic 132 mm[Hg] Comments: Patient Position: Sitting; Cuff Location: Left Arm; Cuff Size: Standard BP Diastolic 84 mm[Hg] Comments: Patient Position: Sitting; Cuff Location: Left Arm; Cuff Size: Standard Weight 182.375 lb Height 63.5 in Body Mass Index Calculated 31.8 kg/m2 Body Surface Area Calculated 1.87 m2 :30 Temperature 97.7 f Comments: Method: Temporal Pulse [...] kg/m2 Body Surface Area Calculated 1.87 m2 :41 Temperature 96.8 f Comments: Method: Temporal Pulse [...] kg/m2 Body Surface Area Calculated 1.86 m2 34-Qkn-51615:50 Comments: orthos 144/17313/42831/78 Temperature 97.2 f Pulse 79 /min Comments: [...] kg/m2 Body Surface Area Calculated 1.86 m2 44-Ugd-966168:10 Comments: Dr. Majano and had a glaucoam [...] kg/m2 Body Surface Area Calculated 1.86 m2 8-Ylp-457879:08 Pulse 70 /min Comments: Pattern: Regular Respiration [...] kg/m2 Body Surface Area Calculated 1.85 m2 29-Yux-882585:24 Pulse 78 /min Comments: Pattern: Regular Respiration [...] kg/m2 Body Surface Area Calculated 1.85 m2 2-Tkx-735853:00 Pulse 79 /min Comments: Pattern: Regular Respiration [...] kg/m2 Body Surface Area Calculated 1.85 m2 43-Pcw-960712:58 Temperature 97.3 f Pulse 80 /min Comments: [...] kg/m2 Body Surface Area Calculated 1.84 m2 38-Icl-905266:15 Temperature 97.2 f Pulse 80 /min Comments: [...] 0.00 cm Results Date Description Value Details 19-Twe-918318:28 Sputum Culture Comments: PATIENT NOT FASTINGPERFORMED BY: [facility] Sstbuw0959 [facility] [id number] Result 1 RRF (Normal) Comments: Routine respiratory trip Lower Respiratory Culture Final report (Normal) 51-Sjf-863504:28 Sputum Culture (90281) Comments: PATIENT NOT FASTINGPERFORMED BY: [facility] Yibvai1509 [facility] [id number] Information: SRC:SP Gram Stain Evaluation GSACC (Normal) Comments: This specimen is of good quality and is acceptable for routinebacterial culture. Result 1 PCM (Normal) Comments: Moderate number of gram positive cocci.Few gram positive rods. Epithelial Cells None seen (Normal) White Blood Cells None seen (Normal) 62-Rbq-236573:35 RSV Ag (Rapid LEVI) Comments: [facility] [address] [facility] [place], [place], [id number] RSV Ag (LEVI) See Note (Normal) Comments: RSV Ag (LEVI)Normal Reference Range = Negative RSV Ag NEGATIVE :56 HgA1C , Office (36892) HgA1C , Office 5.5 % (Normal) Range: 4.6 - 7.1 :56 Blood Glucose , Office (36442) Blood Glucose , Office 86 (Normal) C difficile Toxins A+B, Negative (Normal) Comments: PATIENT NOT FASTINGPERFORMED BY: [facility] Whsvas7664 [facility] [id number] Information: X54881 5:32 EIA NTI Miscellaneous COMMNT (Normal) Comments: PATIENT NOT FASTINGPERFORMED BY: [facility] Acwuux1065 [place] [facility] [id number] 5:32 Comments: Test not indicated.. Written Authorization WAR (Normal) Comments: PATIENT NOT FASTINGPERFORMED BY: [facility] Momwwp9517 [place] [facility] [id number] 5:32 Comments: Written Authorization Received.Authorization received from Original requisition [id number] by Wednesday Dawson 11-Pya-261367:31 OCCULT BLOOD FECES Comments: PATIENT NOT FASTINGPERFORMED BY: [facility]6370 [facility] [id number] Information: SRC:STOOL = FECAL U30332 SCREEN (64730) Occult Blood, Fecal, IA Negative (Normal) 53-Edr-467937:32 OVA & PARASITE DIR SMEAR Comments: PATIENT NOT FASTINGPERFORMED BY: [facility]6370 [facility] [id number] (35354) Result 1 NOCP (Normal) Comments: No ova, cysts, or parasites seen. Ova + Parasite Exam Final report (Normal) Comments: These results were obtained using wet preparation(s) and trichromestained smear. This test does not include testing for Cryptosporidiumparvum, Cyclospora, or Microsporidia. 19-Som-839487:32 LEUKOCYTE COUNT, FECAL Comments: PATIENT NOT FASTINGPERFORMED BY: [facility] Wldsan3766 [facility] [id number] (12940) Result 1 WCM (Abnormal) Comments: Moderate amount of white blood cells. White Blood Cells (WBC), Final report (Abnormal) Stool 32-Cpa-357930:32 WON CULTURE-STOOL (65503) Comments: PATIENT NOT FASTINGPERFORMED BY: [facility] Jaciwl9203 [facility] [id number] Information: L03646 E coli Shiga Toxin EIA Negative (Normal) Result 1 NCI (Normal) Comments: No Campylobacter species isolated. Campylobacter Culture Final report (Normal) Result 1 NSS (Normal) Comments: No Salmonella or Shigella recovered. Salmonella/Shigella Screen Final report (Normal) 2-Hmy-829480:10 Blood Glucose , Office (78837) Blood Glucose , Office 79 (Normal) 7-Duh-166158:10 HgA1C , Office (39499) HgA1C , Office 5.3 % (Normal) Range: 4.6 - 7.1 5-Frb-962274:02 CBC With Differential/Platelet Comments: PATIENT WAS FASTINGPERFORMED BY: [facility] Cbmpor5632 [facility] [id number] Immature Grans (Abs) 0.0 {x10E3/uL} (Normal) Range: [...] 3.77-5.28 WBC 6.3 {x10E3/uL} (Normal) Range: 3.4-10.8 1-Gej-909303:02 Comp. Metabolic Panel (14) Comments: PATIENT WAS FASTINGPERFORMED BY: [facility] Gsseky8091 [address] [place] [id number] ALT (SGPT) 12 [iU]/L (Normal) Range: 0-32 [...] y ears - 12 years 19 - 27 19 - 27 >12 years 20 - 29 20 - 29 Chloride 102 mmol/L (Normal) Range: 96-106 Potassium 4.6 mmol/L (Normal) Range: 3.5-5.2 Sodium 143 mmol/L (Normal) Range: 134-144 BUN/Creatinine Ratio 18 (Normal) Range: 12-28 eGFR If Africn Am 91 mL/min/1.73 (Normal) eGFR If NonAfricn Am 79 mL/min/1.73 (Normal) Creatinine 0.76 mg/dL (Normal) Range: 0.57-1.00 BUN 14 mg/dL (Normal) Range: 8-27 Glucose 92 mg/dL (Normal) Range: 65-99 5-Hnl-699301:02 Lipid Panel With LDL/HDL Comments: PATIENT WAS FASTINGPERFORMED BY: [facility] HospitalFeipoj8198 [facility] [id number]; ov 6/7 Ratio LDL/HDL Ratio 1.5 {ratio} [...] 3.240 {uIU/mL} Comments: PATIENT WAS FASTINGPERFORMED BY: [facility] Bgieio9268 [facility] [id number] 02 (Normal) Range: 0.450-4.500 57-Cqr-441416:54 CBC-Complete Blood Cnt No Diff Comments: [facility] [address] [place], [place], [id number] MPV 9.2 fL (Normal) Range: 6.2-12.0 PLT [...] 4.2-5.4 WBC 6.8 K/mm3 (Normal) Range: 4.4-11.0 :28 HgA1C , Office (86773) HgA1C , Office 5.3 % (Normal) Range: 4.6 - 7.1 1-Rkv-399696:28 Blood Glucose , Office (23921) Blood Glucose , Office 93 (Normal) 70-Tsj-315350:26 Microscopic Examination Comments: PATIENT WAS FASTINGPERFORMED BY: [employer] [facility] [id number] Bacteria None seen (Normal) Mucus Threads Present (Normal) Crystal Type Calcium Oxalate (Normal) Crystals Present (Abnormal) Cast Type Hyaline casts (Normal) Casts Present {/lpf} (Abnormal) Epithelial Cells (non renal) None seen {/hpf} (Normal) Range: 0 - 10 RBC None seen {/hpf} (Normal) Range: 0 - 2 WBC 0-5 {/hpf} (Normal) Range: 0 - 5 :26 TSH (35576) Comments: PATIENT WAS FASTINGPERFORMED BY: [employer] [facility] [id number] TSH 3.380 {uIU/mL} (Normal) Range: 0.450-4.500 : URINALYSIS, W/ MICRO (08336) Comments: PATIENT WAS FASTINGPERFORMED BY: [email or web address] [facility] [id number] Microscopic Examination See below: (Normal) Comments: Microscopic was indicated and was performed. Microscopic Examination MICRON (Normal) Comments: Microscopic follows if indicated. Nitrite, Urine Negative (Normal) Urobilinogen,Semi-Qn 0.2 mg/dL (Normal) Range: 0.2-1.0 Bilirubin Negative (Normal) Occult Blood Negative (Normal) Ketones Negative (Normal) Glucose Negative (Normal) Protein Negative (Normal) WBC Esterase Negative (Normal) Appearance Clear (Normal) Urine-Color Yellow (Normal) pH 5.0 (Normal) Range: 5.0-7.5 Specific [place] 1.025 (Normal) Range: 1.005-1.030 :26 MICROALBUMIN: CREATININE RATIO Comments: PATIENT WAS FASTINGPERFORMED BY: [employer]Philo.Com BidAway.com [facility] [id number] (58420) AND (81816) Microalb/Creat Ratio 5.4 {mg/g_creat} (Normal) Range: 0.0-30.0 Creatinine, Urine 222.5 mg/dL (Normal) Microalbumin, Urine 12.1 ug/mL (Normal) 57-Ait-892615:26 METABOLIC PANEL, COMPREHENSIVE Comments: PATIENT WAS FASTINGPERFORMED BY: Picosun Gdbpqw4356 [facility] [id number] (42015) ALT (SGPT) 38 [iU]/L (Abnormal) Range: 0-32 [...] Glucose, Serum 94 mg/dL (Normal) Range: 65-99 94-Eia-021182:26 LIPID PANEL (94804) Comments: PATIENT WAS FASTINGPERFORMED BY: Picosun Owdfkm9621 [facility] [id number] LDL/HDL Ratio 1.6 {ratio_units} (Normal) Range: 0.0-3.2 Comments: LDL/HDL Ratio Men Women 1/2 Avg.Risk 1.0 1.5 Av g.Risk 3.6 3.2 2X Avg.Risk 6.2 5.0 3X Avg.Risk 8.0 6.1 LDL Cholesterol Calc 104 mg/dL (Abnormal) Range: 0-99 VLDL Cholesterol Sumeet 28 mg/dL (Normal) Range: 5-40 HDL Cholesterol 66 mg/dL (Normal) Triglycerides 139 mg/dL (Normal) Range: 0-149 Cholesterol, Total 198 mg/dL (Normal) Range: 100-199 90-Xsk-581227:26 CBC W/AUTO DIFF WBC (07357) Comments: PATIENT WAS FASTINGPERFORMED BY: LabCoChrist HospitalLdxcxj3319 [facility] [id number] Immature Grans (Abs) 0.0 {x10E3/uL} (Normal) Range: [...] Range: 3.4-10.8 :22 Blood Glucose , Office (02921) Blood Glucose , Office 102 (Normal) 7-Zgv-769250:22 HgA1C , Office (73503) HgA1C , Office 5.5 % (Normal) Range: 4.6 - 7.1 :00 Pathology Report Comments: PERFORMED BY: KWCYT [facility] [place] [facility]to Qqlgc82710 [facility] [id number] BY: [facility] Dermatopathology Orjjdda240 [facility] [address] [place] [address] [id number] Information: [id number] See MATER Comments: Material submitted: .RIGHT ARM SHAVEClinician provided ICD-10:L98.9Clinical history: .IRREG BORDERS RED BASE SCALE TEXTURE Note (Normal) ROUGH BASAL VS SQUAMOUSDiagnosis: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 THESURGICAL MARGIN IS INKED BLACK. THE SPECIMEN IS TRISECTED. IT ISSUBMITTED ENTIRELY IN CASSETTE(S) A./LMSLMS/LMSPathologist p rovided ICD-10:L44.9, D23.61CPT .135919 03-Gsk-234997:27 LIPID PANEL (96113) Comments: PATIENT WAS FASTINGPERFORMED BY: [place]un[place] 1522770 [facility] [id number] LDL/HDL Ratio 1.5 {ratio_units} (Normal) Range: 0.0-3.2 Comments: LDL/HDL Ratio Men Women 1/2 Avg.Risk 1.0 1.5 Av g.Risk 3.6 3.2 2X Avg.Risk 6.2 5.0 3X Avg.Risk 8.0 6.1 LDL Cholesterol Calc 101 mg/dL (Abnormal) Range: 0-99 VLDL Cholesterol Sumeet 18 mg/dL (Normal) Range: 5-40 HDL Cholesterol 69 mg/dL (Normal) Triglycerides 90 mg/dL (Normal) Range: 0-149 Cholesterol, Total 188 mg/dL (Normal) Range: 100-199 1-Aps-938061:45 HgA1C , Office (79645) HgA1C , Office 5.4 % (Normal) Range: 4.6 - 7.1 3-Mmo-131831:45 Blood Glucose , Office (17292) Blood Glucose , Office 86 (Normal) :0 C difficile Toxins Negative (Normal) Comments: PATIENT NOT FASTINGPERFORMED BY: PicosunChrist HospitalKndiya0519 [facility] [id number] 5 A+B, EIA 07-Jan-20171:05 Giardia, EIA, Ova/Parasite Comments: PATIENT NOT FASTINGPERFORMED BY: [place] 7387970 [facility] [id number] Giardia lamblia Ag, Negative (Normal) EIA Result 1 NOCP (Normal) Comments: No ova, cysts, or parasites seen. Ova + Parasite Exam Final report Comments: These results were obtained using wet preparation(s) and trichromestained smear. This test does not include testing for Cryptosporidiumparvum, Cyclospora, or Microsporidia. (Normal) :0 Occult Blood, Fecal, Negative (Normal) Comments: PATIENT NOT FASTINGPERFORMED BY: [facility] Centerlin6370 [facility] [id number] 5 IA :05 Stool Culture Comments: PATIENT NOT FASTINGPERFORMED BY: [facility]6370 [facility] [id number] Information: SRC:ST SRC:ST E coli Shiga Toxin EIA Negative (Normal) Result 1 NCI (Normal) Comments: No Campylobacter species isolated. Campylobacter Culture Final report (Normal) Result 1 NSS (Normal) Comments: No Salmonella or Shigella recovered. Salmonella/Shigella Screen Final report (Normal) :05 White Blood Cells (WBC), Comments: PATIENT NOT FASTINGPERFORMED BY: [facility] Fafylh4093 [facility] [id number] Stool Result 1 NWBC (Normal) Comments: No white blood cells seen. White Blood Cells (WBC), Final report (Normal) Stool 7-Qlq-842746:00 CBC W/AUTO DIFF WBC (25912) Comments: PATIENT NOT FASTINGPERFORMED BY: [facility] Blfgnp4721 [facility] [id number] Immature Grans (Abs) 0.0 {x10E3/uL} (Normal) Range: [...] 3.77-5.28 WBC 5.7 {x10E3/uL} (Normal) Range: 3.4-10.8 25-Cxb-645396:54 AFP, Tumor Marker Comments: Is Patient ? [facility] (refer to report for specific site)refer to report for address and phone number AFP TUMOR 2253 9.5 ng/mL (Abnormal) Range: 0.0-8.3 Comments: Izaiah ECLIA methodologyPerformed at: [facility] [address] [id number] Director: Zander Saunders PhD, Phone: [phone] 82-Ufq-088556:28 MICROALBUMIN: CREATININE RATIO Comments: PATIENT WAS FASTINGPERFORMED BY: [address] [id number] (03413) AND (41626) Microalb/Creat Ratio 11.8 {mg/g_creat} (Normal) Range: 0.0-30.0 Microalbumin, Urine 27.0 ug/mL (Normal) Creatinine, Urine 229.1 mg/dL (Normal) 41-Xox-396638:28 CALCIFEDIOL (34490) Comments: PATIENT WAS FASTINGPERFORMED BY: [address] [id number] Vitamin D, 25-Hydroxy 49.4 ng/mL (Normal) Range: 30.0-100.0 Comments: Vitamin D deficiency has been defined by the [place] ofMedicine and an Endocrine Society practice guideline as alevel of serum 25-OH vitamin D less than 20 ng/mL (1,2).The Endocrine Society went on to further define vitamin Dinsufficiency as a level between 21 and 29 ng/mL (2).1. IOM ([place] of Medicine). 2010. Dietary reference intakes for calcium and D. [place]: The National Academies Press.2. Hannah MF, Hilda NC, Cindy FREED, et al. Evaluation, treatment, and prevention of vitamin D deficiency: an Endocrine Society clinical practice guideline. JCEM. 2010; 96(7):1911-30. 19-Sqs-798184:28 TSH (THYROID STIMULATING Comments: PATIENT WAS FASTINGPERFORMED BY: [facility] [id number] HORMONE) (39480) TSH 2.320 {uIU/mL} (Normal) Range: 0.450-4.500 62-Cfa-673732:28 LIPID PANEL (49329) Comments: PATIENT WAS FASTINGPERFORMED BY: [facility]onshado [facility] [id number] LDL/HDL Ratio 1.2 {ratio_units} (Normal) Range: 0.0-3.2 Comments: LDL/HDL Ratio Men Women 1/2 Avg.Risk 1.0 1.5 Av g.Risk 3.6 3.2 2X Avg.Risk 6.2 5.0 3X Avg.Risk 8.0 6.1 LDL Cholesterol Calc 95 mg/dL (Normal) Range: 0-99 VLDL Cholesterol Sumeet 25 mg/dL (Normal) Range: 5-40 HDL Cholesterol 79 mg/dL (Normal) Triglycerides 126 mg/dL (Normal) Range: 0-149 Cholesterol, Total 199 mg/dL (Normal) Range: 100-199 85-Ffs-115771:28 METABOLIC PANEL, COMPREHENSIVE Comments: PATIENT WAS FASTINGPERFORMED BY: OrbFlex6370 [facility] [id number] (19857) ALT (SGPT) 16 [iU]/L (Normal) Range: 0-32 [...] Glucose, Serum 99 mg/dL (Normal) Range: 65-99 36-Gwj-322444:28 CBC, PLATELETS & AUT DIFF Comments: PATIENT WAS FASTINGPERFORMED BY: [facility] Cqqvxr6799 [facility] [id number]; fu 03/11 KF (43539) Immature Grans (Abs) 0.0 {x10E3/uL} (Normal) Range: [...] 3.77-5.28 WBC 4.7 {x10E3/uL} (Normal) Range: 3.4-10.8 :51 HgA1C , Office (46752) HgA1C , Office 5.5 % (Normal) Range: 4.6 - 7.1 :51 Blood Glucose , Office (17108) Blood Glucose , Office 91 (Normal) 6-Mev-001334:11 Serum Creatinine AND GFR Comments: STAT!!![facility] [address] [place], [address] EST GFR - AA 91 mL/min (Normal) [...] 2253 10.2 ng/mL (Abnormal) Range: 0.0-8.3 Comments: Izaiah ECLIA methodologyPerformed at: [facility] [address] [id number] Director: Zander Saunders PhD, Phone: [phone] :[phone] CBC W/Diff, Automated Comments: [facility] [address] [place], [address] Absolute Lymph 1.56 {X10_3/ul} (Normal) Range: 0.83-4.51 [...] 4.2-5.4 WBC 5.0 K/mm3 (Normal) Range: 4.4-11.0 4-Pmk-845878:05 Comprehensive Metabolic Profil Comments: Is Patient Taking Vitamins or Folic Acid Supplements? [facility] [address] [place], [place], [id number] GAP 8 (Normal) Range: 5-15 CO2 29.0 [...] 7-18 GLU 91 mg/dL (Normal) Range: 70-110 0-Hst-144083:05 Folates, (Folic Acid) Comments: Is Patient Taking Vitamins or Folic Acid Supplements? [facility] [address] [place], [place], [id number] FOLATES 37.50 ng/mL (Abnormal) Range: 3.1-17.5 9-Yoc-027939:05 Lipid Profile Comments: Is Patient Taking Vitamins or Folic Acid Supplements? [facility] [address] [place], [place], [id number] VLDL 36 mg/dL (Normal) Range: 5-40 LDL [...] 200-240 mg/dL Borderline >240 mg/dL High Risk 0-Thm-821220:05 Thyroid Stim Hormone (TSH) Comments: Is Patient Taking Vitamins or Folic Acid Supplements? [facility] [address] [place], [id number] TSH 1.94 {uIU/mL} (Normal) Range: 0.358-3.74 3-Dmh-014430:05 Vitamin B12 668 pg/mL (Normal) Comments: [facility] [address] [place], [address] Range: 211-911 :05 Vitamin D,25 Hydroxy Comments: [facility] [address] [place], [place], [address] Vitamin D 25-OH 38.6 ng/mL (Normal) Comments: Vitamin D 25(OH) Status Range Deficiency <20 ng/mL (50nmol/L) Insuffciency 20 - 30 ng/mL (50 - 75 nmol/L) Sufficiency 30 - 100 ng/mL (75 - 250 nmol/L) Toxicity >100 ng/mL (>250 nmol/L) 64-Jqw-253648:38 HgA1C , Office (61780) HgA1C , Office 5.3 % (Normal) Range: 4.6 - 7.1 :38 Blood Glucose , Office (19261) Blood Glucose , Office 89 (Normal) :48 MICROALBUMIN: CREATININE RATIO Comments: PATIENT NOT FASTINGPERFORMED BY: LabCoChrist HospitalErbbcx3800 [facility] [id number] (92829) AND (90356) Microalb/Creat Ratio 3.2 {mg/g_creat} (Normal) Range: 0.0-30.0 Microalbumin, Urine 3.8 ug/mL (Normal) Creatinine, Urine 119.1 mg/dL (Normal) :48 CBC W/AUTO DIFF WBC Comments: PATIENT NOT FASTINGPERFORMED BY: LabCoChrist HospitalOyzgdd9162 [facility] [id number] Information: [id number] PT HAD COFF EE WITH CREAM (63586) Immature Grans (Abs) 0.0 {x10E3/uL} (Normal) Range: [...] {x10E3/uL} (Normal) Range: 3.4-10.8 :48 LIPID PANEL (82237) Comments: PATIENT NOT FASTINGPERFORMED BY: [facility]6370 [facility] [id number] LDL/HDL Ratio 1.7 {ratio_units} (Normal) Range: 0.0-3.2 [...] Cholesterol, Total 236 mg/dL (Abnormal) Range: 100-199 36-Eau-759470:48 METABOLIC PANEL, COMPREHENSIVE Comments: PATIENT NOT FASTINGPERFORMED BY: LabCoChrist HospitalCpofdd5581 [facility] [id number] (21074) ALT (SGPT) 13 [iU]/L (Normal) Range: 0-32 [...] Serum 86 mg/dL (Normal) Range: 65-99 :48 HTQDQ-ANDBIXRKUMJ-QUHCY (61670) Comments: PATIENT NOT FASTINGPERFORMED BY: PicosunChrist HospitalOkiooh4134 [facility] [id number] AFP, Serum, Tumor Marker 9.5 ng/mL (Abnormal) Range: 0.0-8.3 Comments: Izaiah ECLIA methodology :11 HgA1C , Office (30035) HgA1C , Office 5.4 % (Normal) Range: 4.6 - 7.1 :11 HgA1C , Office (71328) HgA1C , Office 5.5 % (Normal) Range: 4.6 - 7.1 :37 LIPID PANEL (90462) Comments: PATIENT WAS FASTINGPERFORMED BY: PicosunChrist HospitalJcitod5791 [facility] [id number] LDL/HDL Ratio 1.8 {ratio_units} (Normal) Range: 0.0-3.2 [...] Cholesterol, Total 255 mg/dL (Abnormal) Range: 100-199 :37 METABOLIC PANEL, Comments: PATIENT WAS FASTINGPERFORMED BY: PicosunChrist HospitalTtelok6528 [facility] [id number] Information: [id number] COMPREHENSIVE (70229) ALT (SGPT) 15 [iU]/L (Normal) Range: 0-32 [...] Glucose, Serum 91 mg/dL (Normal) Range: 65-99 15-Ize-485597:37 NWKFT-ZTKREYPIFRN-DEPDU (13901) Comments: PATIENT WAS FASTINGPERFORMED BY: [employer]70 KmsocialFormerly [facility] [id number] AFP, Serum, Tumor Marker 10.1 ng/mL (Abnormal) Range: 0.0-8.3 Comments: Izaiah ECLIA methodology 25-Nvb-372198:54 VNDEX-TBOZBYAAHDP-ZKCQD (55227) Comments: 2 months; PATIENT NOT FASTINGPERFORMED BY: [employer]70 KmsocialFormerly [facility] [id number] Information: [id number] AFP, Serum, Tumor Marker 10.3 ng/mL (Abnormal) Range: 0.0-8.3 Comments: Izaiah ECLIA methodology 9-Pyh-966156:04 HgA1C , Office (68174) HgA1C , Office 5.9 % (Normal) Range: 4.6 - 7.1 72-Ntt-37852:00 Serum Creatinine AND GFR Comments: Test performed at:[facility] [address] [place] [address] EST GFR - AA 81 mL/min (Normal) EST GFR 67 mL/min (Normal) CREAT,SERUM 0.89 mg/dL (Normal) Range: 0.55-1.20 Comments: Please note revised CREATININE reference range eoyyvpfrg03/22/2015. 86-Ijn-180349:19 CBC with auto diff Comments: PATIENT WAS FASTINGPERFORMED BY: [facility] Ftqjgm3753 [facility] [id number] Information: [id number] (05855) Immature Grans (Abs) 0.0 {x10E3/uL} (Normal) Range: [...] 3.77-5.28 WBC 5.5 {x10E3/uL} (Normal) Range: 3.4-10.8 62-Esp-888498:19 MICROALBUMIN: CREATININE RATIO Comments: PATIENT WAS FASTINGPERFORMED BY: PicosunChrist HospitalLzaqao7752 [facility] [id number] (73903) AND (80581) Microalb/Creat Ratio <3.5 {mg/g_creat} (Normal) Range: 0.0-30.0 Microalbumin, Urine <3.0 ug/mL (Normal) Range: 0.0-17.0 Creatinine, Urine 85.8 mg/dL (Normal) Range: 15.0-278.0 :19 METABOLIC PANEL, COMPREHENSIVE Comments: PATIENT WAS FASTINGPERFORMED BY: PicosunChrist HospitalUupmfy0548 [facility] [id number] (64371) ALT (SGPT) 11 [iU]/L (Normal) Range: 0-32 [...] Glucose, Serum 94 mg/dL (Normal) Range: 65-99 89-Ksc-334851:19 LIPID PANEL (55105) Comments: PATIENT WAS FASTINGPERFORMED BY: PicosunChrist HospitalUeepld8773 [facility] [id number] LDL/HDL Ratio 1.8 {ratio_units} (Normal) Range: 0.0-3.2 [...] Cholesterol, Total 230 mg/dL (Abnormal) Range: 100-199 77-Ude-335448:19 KKSBX-BTVCPURLMZE-ATWJR (05302) Comments: PATIENT WAS FASTINGPERFORMED BY: [place] 1522770 [facility] [id number] AFP, Serum, Tumor Marker 9.4 ng/mL (Abnormal) Range: 0.0-8.3 Comments: Izaiah ECLIA methodology :33 HgA1C , Office (57862) HgA1C , Office 5.9 % (Normal) Range: 4.6 - 7.1 AFP, Serum, Tumor 8.6 ng/mL (Abnormal) Comments: PATIENT WAS FASTINGPERFORMED BY: [place] 1522770 [facility] [id number] :02 Marker Range: 0.0-8.3 Comments: Izaiah ECLIA methodology :02 CBC With Differential/Platelet Comments: PATIENT WAS FASTINGPERFORMED BY: PicosunChrist HospitalVsiqsh9785 [facility] [id number] Information: [id number] Immature Grans (Abs) 0.0 {x10E3/uL} (Normal) Range: [...] 3.77-5.28 WBC 5.1 {x10E3/uL} (Normal) Range: 3.4-10.8 38-Bct-364880:02 Comp. Metabolic Panel (14) Comments: PATIENT WAS FASTINGPERFORMED BY: [facility] Fnplmq8226 [facility] [id number] ALT (SGPT) 16 [iU]/L (Normal) Range: 0-32 [...] Glucose, Serum 84 mg/dL (Normal) Range: 65-99 72-Gks-408920:02 Lipid Panel With LDL/HDL Comments: PATIENT WAS FASTINGPERFORMED BY: LabCoChrist HospitalEkunsb7923 [facility] [id number] Ratio LDL/HDL Ratio 1.7 {ratio_units} Range: 0.0-3.2 [...] {uIU/mL} (Normal) Comments: PATIENT WAS FASTINGPERFORMED BY: PicosunChrist HospitalTecxjb8122 [facility] [id number] 13:02 Range: 0.450-4.500 55-Pcb-99927:47 HgA1C , Office (04406) HgA1C , Office 5.6 % (Normal) Range: 4.6 - 7.1 3-Knt-031071:12 WQFOX-RMBVMLIQLOE-UEQNR (62496) Comments: PATIENT NOT FASTINGPERFORMED BY: PicosunChrist HospitalNzmefm8211 [facility] [id number] AFP, Serum, Tumor Marker 9.2 ng/mL (Abnormal) Range: 0.0-8.3 Comments: Izaiah ECLIA methodology 8-Fcj-801591:12 CBC W/AUTO DIFF WBC Comments: PATIENT NOT FASTINGPERFORMED BY: PicosunChrist HospitalUtqxiw4269 [facility] [id number] Information: [id number] (17238) Immature Grans (Abs) 0.0 {x10E3/uL} (Normal) Range: [...] 3.77-5.28 WBC 7.3 {x10E3/uL} (Normal) Range: 3.4-10.8 1-Ycg-698775:12 METABOLIC PANEL, COMPREHENSIVE Comments: PATIENT NOT FASTINGPERFORMED BY: LabCoChrist HospitalIvgeob1678 [facility] [id number] (94816) ALT (SGPT) 15 [iU]/L (Normal) Range: 0-32 [...] Glucose, Serum 84 mg/dL (Normal) Range: 65-99 1-Otc-510342:12 LIPID PANEL (67034) Comments: PATIENT NOT FASTINGPERFORMED BY: [employer] [place] [id number] LDL/HDL Ratio 1.3 {ratio_units} (Normal) Range: 0.0-3.2 [...] Cholesterol, Total 199 mg/dL (Normal) Range: 100-199 96-Sen-841338:05 HgA1C , Office (01978) HgA1C , Office 5.8 % (Normal) Range: 4.6 - 7.1 9-Dqt-756497:21 LYYWF-WFMEGSJMYAQ-MRPAZ (56381) Comments: get us of liver; PATIENT WAS FASTINGPERFORMED BY: [facility] [id number] AFP, Serum, Tumor Marker 8.6 ng/mL (Abnormal) Range: 0.0-8.3 Comments: Izaiah ECLIA methodology 7-Vst-586270:21 MICROALBUMIN: CREATININE RATIO Comments: PATIENT WAS FASTINGPERFORMED BY: Moonshado RoadDublin [place] [id number] (93509) AND (06201) Microalb/Creat Ratio 7.2 {mg/g_creat} (Normal) Range: 0.0-30.0 Microalbumin, Urine 12.4 ug/mL (Normal) Range: 0.0-17.0 Creatinine, Urine 173.3 mg/dL (Normal) Range: 15.0-278.0 8-Gws-469579:21 LIPID PANEL (57292) Comments: PATIENT WAS FASTINGPERFORMED BY: [facility]6370 [facility] [id number] LDL/HDL Ratio 1.5 {ratio_units} (Normal) Range: 0.0-3.2 [...] Cholesterol, Total 217 mg/dL (Abnormal) Range: 100-199 8-Bim-015805:21 CBC WITH MANUAL DIFF Comments: PATIENT WAS FASTINGPERFORMED BY: [facility]6370 [facility] [id number] Information: [id number]; non-emergent till apt this week (21856) Immature Grans (Abs) 0.0 {x10E3/uL} (Normal) Range: [...] 3.77-5.28 WBC 13.8 {x10E3/uL} (Abnormal) Range: 3.4-10.8 9-Rfp-081971:21 METABOLIC PANEL, COMPREHENSIVE Comments: PATIENT WAS FASTINGPERFORMED BY: LabCoChrist HospitalXlvhdg4007 [facility] [id number] (09416) ALT (SGPT) 13 [iU]/L (Normal) Range: 0-32 [...] Glucose, Serum 84 mg/dL (Normal) Range: 65-99 67-Pfz-525636:32 HgA1C , Office (17112) HgA1C , Office 5.8 % (Normal) Range: 4.6 - 7.1 1-Wwx-082062:18 Vitamin D Hydroxy (23826) Comments: PATIENT WAS FASTINGPERFORMED BY: ClariPhy CommunicationsAt[facility] [id number] Vitamin D, 25-Hydroxy 54.3 ng/mL (Normal) Range: 30.0-100.0 Comments: Vitamin D deficiency has been defined by the [place] of[facility] and an Endocrine Society practice guideline as alevel of serum 25-OH vitamin D less than 20 ng/mL (1,2).The Endocrine Society went on to further define vitamin Dinsufficiency as a level between 21 and 29 ng/mL (2).1. IOM ([place] of Medicine). 2010. Dietary reference intakes for calcium and D. [place]: The National Academies Press.2. Hannah MF, Hilda SONG, Cindy FREED, et al. Evaluation, treatment, and prevention of vitamin D deficiency: an Endocrine Society clinical practice guideline. JCEM. 2010; 96(7):1911-30. 8-Cmi-150516:18 IRON (20815) Comments: PATIENT WAS FASTINGPERFORMED BY: SupportSpace6370 Survature [facility] HospitalDNN CorpAtrium Health Pineville [id number] Iron, Serum 86 ug/dL (Normal) Range: 35-155 7-Ttp-220190:18 CBC WITH MANUAL DIFF Comments: PATIENT WAS FASTINGPERFORMED BY: ClariPhy CommunicationsAt[facility] Health [facility] [id number] Information: [id number] (44825) Immature Grans (Abs) 0.0 {x10E3/uL} (Normal) Range: [...] 3.77-5.28 WBC 6.1 {x10E3/uL} (Normal) Range: 3.4-10.8 2-Meg-143086:18 JDRBE-SJYMTKBOCJD-IOYXN (16336) Comments: PATIENT WAS FASTINGPERFORMED BY: LabCoChrist HospitalGryixd0051 [facility] [id number] AFP, Serum, Tumor Marker 9.6 ng/mL (Abnormal) Range: 0.0-8.3 Comments: Izaiah ECLIA methodology :18 PTT (Activated Partial Comments: PATIENT WAS FASTINGPERFORMED BY: [facility]6370 [facility] [id number] Thromboplastin Time) (57089) aPTT 27 {sec} (Normal) Range: 24-33 Comments: This test has not been validated for monitoring unfractionated heparintherapy. aPTT-based therapeutic ranges for unfractionated heparintherapy have not been established. For general guidelines onHeparin monitoring, refer to the [facility] Directory of Services. 9-Xcv-561593:18 PT (Prothrobim Time) (55214) Comments: PATIENT WAS FASTINGPERFORMED BY: [facility]6370 [facility] [id number] Prothrombin Time 10.3 {sec} (Normal) Range: 9.1-12.0 INR 1.0 (Normal) Range: 0.8-1.2 Comments: Reference interval is for non-anticoagulated patients. . Suggested INR therapeutic range for Vitamin K anta gonist therapy: Standard Dose (moderate intensity therapeutic range): 2.0 - 3.0 Higher intensity therapeutic range 2.5 - 3.5 5-Jcu-054688:18 METABOLIC PANEL, COMPREHENSIVE Comments: PATIENT WAS FASTINGPERFORMED BY: [place] 7387970 [facility] [id number] (33016) ALT (SGPT) 21 [iU]/L (Normal) Range: 0-32 [...] Glucose, Serum 97 mg/dL (Normal) Range: 65-99 :18 LIPID PANEL (53782) Comments: PATIENT WAS FASTINGPERFORMED BY: [employer]70 demandmartAtrium Health Pineville [id number]; will review at 05/25 appt LDL/HDL Ratio [...] (Normal) Range: 100-199 :30 HgA1C , Office (72381) HgA1C , Office 5.7 % (Normal) Range: 4.6 - 7.1 :37 LIPID PANEL (50721) Comments: PATIENT WAS FASTINGPERFORMED BY: OrbFlex6370 [facility] [id number] Information: [id number] LDL/HDL Ratio 1.2 {ratio_units} (Normal) Range: 0.0-3.2 LDL Cholesterol Calc 86 mg/dL (Normal) Range: 0-99 VLDL Cholesterol Sumeet 20 mg/dL (Normal) Range: 5-40 HDL Cholesterol 73 mg/dL (Normal) Comments: According to ATP-III Guidelines, HDL-C >59 mg/dL is considered anegative risk factor for CHD. Triglycerides 99 mg/dL (Normal) Range: 0-149 Cholesterol, Total 179 mg/dL (Normal) Range: 100-199 78-[id number] Vitamin D Hydroxy ([id number]) Comments: PATIENT NOT FASTINGPERFORMED BY: [facility]Co[facility] [id number] [facility] [id number] Vitamin D, 25-Hydroxy 34.7 ng/mL (Normal) Range: 30.0-100.0 Comments: Vitamin D deficiency has been defined by the [place] [employer] and an Endocrine Society practice guideline as alevel of serum 25-OH vitamin D less than 20 ng/mL (1,2).The Endocrine Society went on to further define vitamin Dinsufficiency as a level between 21 and 29 ng/mL (2).1. IOM ([place] [employer]). 2010. Dietary reference intakes for calcium and D. [place]: The National Academies Press.2. Hannah MF, Hilda NC, Cindy FREED, et al. Evaluation, treatment, and prevention of vitamin D deficiency: an Endocrine Society clinical practice guideline. JCEM. 2010; 96(7):1911-30. [id number] CBC WITH MANUAL DIFF Comments: PATIENT NOT FASTINGPERFORMED BY: [facility] [id number] [facility] [id number] Information: [id number] ([id number]) Immature Grans (Abs) 0.0 {x10E3/uL} (Normal) Range: [...] 3.77-5.28 WBC 5.9 {x10E3/uL} (Normal) Range: 3.4-10.8 26-Rqe-489899:47 METABOLIC PANEL, COMPREHENSIVE Comments: PATIENT NOT FASTINGPERFORMED BY: LabCoChrist HospitalDoxcfp5668 [facility] [id number] (53541) ALT (SGPT) 37 [iU]/L (Abnormal) Range: 0-32 [...] Glucose, Serum 99 mg/dL (Normal) Range: 65-99 21-Faa-141315:47 LEOQO-SERKCKJXCJK-RRDXI (11146) Comments: PATIENT NOT FASTINGPERFORMED BY: [facility] [place] [address] [id number] AFP, Serum, Tumor Marker 7.6 ng/mL (Normal) Range: 0.0-8.3 Comments: Izaiah ECLIA methodology :47 PTT (Activated Partial Comments: PATIENT NOT FASTINGPERFORMED BY: [facility]6370 [facility] [id number] Thromboplastin Time) (64402) aPTT 25 {sec} (Normal) Range: 24-33 Comments: This test has not been validated for monitoring unfractionated heparintherapy. aPTT-based therapeutic ranges for unfractionated heparintherapy have not been established. For general guidelines onHeparin monitoring, refer to the [facility] Directory of Services. :47 PT (Prothrobim Time) (33374) Comments: PATIENT NOT FASTINGPERFORMED BY: [facility]6370 [facility] [id number] INR 1.0 (Normal) Range: 0.8-1.2 Comments: Reference interval is for non-anticoagulated patients. . Suggested INR therapeutic range for Vitamin K anta gonist therapy: Standard Dose (moderate intensity therapeutic range): 2.0 - 3.0 Higher intensity therapeutic range 2.5 - 3.5 Prothrombin Time 10.4 {sec} (Normal) Range: 9.1-12.0 :47 FOLIC ACID SERUM (01946) Comments: PATIENT NOT FASTINGPERFORMED BY: [facility]6370 [facility] [id number] Folate (Folic Acid), Serum >19.9 ng/mL (Normal) Comments: A serum folate concentration of less than 3.1 ng/mL isconsidered to represent clinical deficiency. 22-Psz-680336:47 VITAMIN B-12 (CYANOCOBALAMIN) Comments: PATIENT NOT FASTINGPERFORMED BY: [facility] Agswda9[address] [facility] [id number] (61049) Vitamin B12 801 pg/mL (Normal) Range: 211-946 28-Zzq-040732:47 RETICULOCYTE COUNT MANUL Comments: PATIENT NOT FASTINGPERFORMED BY: [facility] Cskjdt0825 [address] [facility] [id number] (96779) Reticulocyte Count 0.9 % (Normal) Range: 0.6-2.6 :47 LDH (LD) (LACTATE DEHYDROGENASE) Comments: PATIENT NOT FASTINGPERFORMED BY: [facility] Bcgdni2946 [address] [facility] [id number] (46592) LDH 203 [iU]/L (Normal) Range: 0-214 98-Ghg-731929:47 IRON BINDING CAPACITY (TIBC) Comments: PATIENT NOT FASTINGPERFORMED BY: [facility] Dvuipe2356 [address] [facility] [id number] (29075) Iron Saturation 13 % (Abnormal) Range: 15-55 Iron Bind.Cap.(TIBC) 391 ug/dL (Normal) Range: 250-450 Iron, Serum 51 ug/dL (Normal) Range: 35-155 UIBC 340 ug/dL (Normal) Range: 150-375 24-Iyl-362603:47 FERRITIN (84813) Comments: PATIENT NOT FASTINGPERFORMED BY: [facility] Wadimx3203 [address] [facility] [place] [id number] Ferritin, Serum 7 ng/mL (Abnormal) Range: 15-150 05-Wxq-816660:06 CULTURE, SPUTUM (78105) Comments: PATIENT NOT FASTINGPERFORMED BY: [facility] Lcmqhx6529 [address] [facility] [id number] Information: SRC: SPUTUM Result 1 RRF (Normal) Comments: Routine respiratory trip Lower Respiratory Culture Final report (Normal) 5-Nmm-278749:55 Protein Electro, Random Urine Comments: PATIENT WAS FASTINGPERFORMED BY: [employer]un Wsgann0957 [facility] [id number] Please note: SPRCS (Normal) Comments: Protein electrophoresis scan will follow via computer, mail, orcourier delivery. Gamma Globulin, U 27.2 % (Normal) M-Roque, % Not Observed % (Normal) Beta Globulin, U 31.3 % (Normal) Xfgiz-6-Ebtjpcjy, U 3.2 % (Normal) Fqogo-6-Iyciewnx, U 15.8 % (Normal) Albumin, U 22.6 % (Normal) Protein,Total,Urine 13.6 mg/dL (Normal) Range: 0.0-15.0 9-Abv-737718:55 Protein Electro.,S Comments: PATIENT WAS FASTINGPERFORMED BY: OrbFlex6370 [facility] [id number] A/G Ratio 1.8 (Normal) Range: 0.7-2.0 Please note: SPRCS (Normal) Comments: Protein electrophoresis scan will follow via computer, mail, orcourier delivery. Gamma Globulin 0.6 g/dL (Normal) Range: 0.5-1.6 Globulin, Total 2.4 g/dL (Normal) Range: 2.0-4.5 M-Roque Not Observed g/dL (Normal) Hflfg-2-Eeeaxipr 0.2 g/dL (Normal) Range: 0.1-0.4 Rrfaz-7-Cldbnidf 0.6 g/dL (Normal) Range: 0.4-1.2 Beta Globulin 1.0 g/dL (Normal) Range: 0.6-1.3 Albumin 4.2 g/dL (Normal) Range: 3.2-5.6 8-Jhd-072591:55 TSH (89874) Comments: PATIENT WAS FASTINGPERFORMED BY: LabUn[facility] Pmbnne4365 [facility] [id number] TSH 2.610 {uIU/mL} (Normal) Range: 0.450-4.500 8-Tky-700230:55 CBC WITH MANUAL DIFF (48601) Comments: PATIENT WAS FASTINGPERFORMED BY: [facility]Un[facility] Zrevxl6657 [facility] [id number] Immature Grans (Abs) 0.0 {x10E3/uL} (Normal) Range: [...] 3.77-5.28 WBC 5.2 {x10E3/uL} (Normal) Range: 3.4-10.8 5-Wkk-595473:55 METABOLIC PANEL, COMPREHENSIVE Comments: PATIENT WAS FASTINGPERFORMED BY: [facility] Ralzjw5670 [facility] [id number] (60548) ALT (SGPT) 36 [iU]/L (Abnormal) Range: 0-32 [...] Glucose, Serum 88 mg/dL (Normal) Range: 65-99 :55 LIPID PANEL (52443) Comments: PATIENT WAS FASTINGPERFORMED BY: LabCoChrist HospitalQswzxl5807 [facility] [id number] LDL/HDL Ratio 1.7 {ratio_units} (Normal) Range: 0.0-3.2 LDL Cholesterol Calc 138 mg/dL (Abnormal) Range: 0-99 VLDL Cholesterol Sumeet 19 mg/dL (Normal) Range: 5-40 Cholesterol, Total 240 mg/dL (Abnormal) Range: 100-199 HDL Cholesterol 83 mg/dL (Normal) Comments: According to ATP-III Guidelines, HDL-C >59 mg/dL is considered anegative risk factor for CHD. Triglycerides 97 mg/dL (Normal) Range: 0-149 48-Gca-872627:30 HgA1C , Office (76454) HgA1C , Office 5.6 % (Normal) Range: 4.6 - 7.1 :35 CALCIFEDIOL (26125) Comments: PATIENT WAS FASTINGPERFORMED BY: [facility]6370 [facility] [id number] Vitamin D, 25-Hydroxy 33.8 ng/mL (Normal) Range: 30.0-100.0 Comments: Vitamin D deficiency has been defined by the [place] [facility] and an Endocrine Society practice guideline as alevel of serum 25-OH vitamin D less than 20 ng/mL (1,2).The Endocrine Society went on to further define vitamin Dinsufficiency as a level between 21 and 29 ng/mL (2).1. IOM ([place] of Medicine). 2010. Dietary reference intakes for calcium and D. [place]: The National Academies Press.2. Hannah MF, Hilda SONG, Cindy FREED, et al. Evaluation, treatment, and prevention of vitamin D deficiency: an Endocrine Society clinical practice guideline. JCEM. 2010; 96(7):1911-30. :35 CBC with manual diff Comments: PATIENT WAS FASTINGPERFORMED BY: [facility] Bjawca0333 [facility] [id number] Information: [id number] (39524) Immature Grans (Abs) 0.0 {x10E3/uL} (Normal) Range: [...] in the reference population. :35 Lipid Panel (18603) Comments: PATIENT WAS FASTINGPERFORMED BY: [facility]6370 [facility] [id number] LDL/HDL Ratio 1.3 {ratio_units} (Normal) Range: 0.0-3.2 LDL Cholesterol Calc 110 mg/dL (Abnormal) Range: 0-99 HDL Cholesterol 85 mg/dL (Normal) Comments: According to ATP-III Guidelines, HDL-C >59 mg/dL is considered anegative risk factor for CHD. VLDL Cholesterol Sumeet 23 mg/dL (Normal) Range: 5-40 Triglycerides 115 mg/dL (Normal) Range: 0-149 Cholesterol, Total 218 mg/dL (Abnormal) Range: 100-199 4-Kwu-952660:35 Metabolic Panel, Comprehensive Comments: PATIENT WAS FASTINGPERFORMED BY: [employer] Owqdwr5803 [facility] [id number] (26702) ALT (SGPT) 26 [iU]/L (Normal) Range: 0-32 [...] Glucose, Serum 95 mg/dL (Normal) Range: 65-99 05-Rzu-746402:17 Protein Electro, Random Urine Comments: PATIENT NOT FASTINGPERFORMED BY: PicosunChrist HospitalEcctox8717 [facility] [id number] Gamma Globulin, U 33.0 % (Normal) M-Roque, % Not Observed % (Normal) Please note: SPRCS (Normal) Comments: Protein electrophoresis scan will follow via computer, mail, orcourier delivery. Rabpp-0-Bwogqynt, U 12.2 % (Normal) Beta Globulin, U 27.5 % (Normal) Ndfju-4-Oqaxfdpi, U 2.3 % (Normal) Albumin, U 25.0 % (Normal) Protein,Total,Urine 4.6 mg/dL (Normal) Range: 0.0-15.0 :17 Protein Electro.,S Comments: PATIENT NOT FASTINGPERFORMED BY: OrbFlex6370 demandmartblin [place] [id number] A/G Ratio 1.5 (Normal) Range: 0.7-2.0 Please note: SPRCS (Normal) Comments: Protein electrophoresis scan will follow via computer, mail, orcourier delivery. Globulin, Total 2.6 g/dL (Normal) Range: 2.0-4.5 M-Roque Not Observed g/dL (Normal) Gamma Globulin 0.7 g/dL (Normal) Range: 0.5-1.6 Ztaao-9-Pdumatdt 0.7 g/dL (Normal) Range: 0.4-1.2 Beta Globulin 1.0 g/dL (Normal) Range: 0.6-1.3 Aghny-0-Ctwaparz 0.2 g/dL (Normal) Range: 0.1-0.4 Albumin 4.0 g/dL (Normal) Range: 3.2-5.6 Protein, Total, Serum 6.6 g/dL (Normal) Range: 6.0-8.5 39-Cfg-789310:17 PHOSPHORUS (59431) Comments: PATIENT NOT FASTINGPERFORMED BY: Sagencelin[address] [employer] [id number] Phosphorus, Serum 3.6 mg/dL (Normal) Range: 2.5-4.5 65-Sna-542578:17 PARATHORMONE (29111) Comments: PATIENT NOT FASTINGPERFORMED BY: [facility] Ofblae33[address] [place] [employer] [place]bl[place] [id number] PTH, Intact 17 pg/mL (Normal) Range: 15-65 70-Cjr-731978:17 TSH (71742) Comments: PATIENT NOT FASTINGPERFORMED BY: PlayPhilo.Comrp Axqpau2996 Salguero RoadDublin [place] [id number] TSH 2.130 {uIU/mL} (Normal) Range: 0.450-4.500 67-Cjr-604683:17 VITAMIN B-12 (CYANOCOBALAMIN) Comments: PATIENT NOT FASTINGPERFORMED BY: [facility]6370 [facility] [id number] (55263) Vitamin B12 886 pg/mL (Normal) Range: 211-946 08-Ugi-331427:54 CHEST WITH CONTRAST Radiology Report See Note [...] Hathaway M.D.March 22, 2013 at 1:20:07 PM [id number] Signed GP/GP If you are the referring physician and would like to consult with theradiologist who provided this interpretation, please contact Leslye Escobedo at [phone]. If this radiologist is unavailable, yo zackill be directed to another radiologist to assist. If you are a patient with a question regarding this report, pleasecontactyour referring physician directly. Professional Interpretation Provided By: Abigail Stewart, Phone , These documents contain legally protected [...] documents. Dictated on 03/21/13 1403 by Rivas ADHIKARI,GabrieleTranscribed on 03/22/13 1322 by ITS IMPORTSign by Evelia avendaño MD,Yousif on 03/22/13 1323 Sign by: Yousif Hathaway MD 6-Tzw-094443:31 Calcium, 24Hr Urine Comments: PERFORMED BY: PicosunLisa [place] 1522770 [facility] [id number] Information: 03/07@220AM 03/08@220AM Calcium, Urine 24hr 173.8 {mg/24_hr} (Normal) Range: 100.0-300.0 Calcium, Urine 15.8 mg/dL (Normal) 1-Odn-847706:23 CULTURE, SPUTUM (05965) Comments: PATIENT NOT FASTINGPERFORMED BY: PicosunL[place] 1522770 [facility] [id number] Information: SRC:[facility] [id number] Result 1 RRF (Normal) Comments: Routine respiratory trip Lower Respiratory Culture Final report (Normal) 77-Lwu-525465:26 DEXA BONE DENSITY STUDY (HP) Radiology Report [...] Hathaway M.D.January 21, 2013 at 8:47:25 AM [id number] Signed GP/GP If you are the referring physic elliott and would like to consult with theradiologist who provided this interpretation, please contact Leslye Escobedo at [phone]. If this radiologist is unavailable, youwill be directed to [facility] ther radiologist to assist. If you are a patient with a question regarding this report, pleasecontactyour referring physician directly. Professional Interpretation Provided By: Manda, Phone , These documents contain legally protected [...] on 01/21/13 0849 by ITS IMPORTSign by Rivas ADHIKARI,Yousif on 01/21 0850 Sign by: Yousif Hathaway MD 12-Jan-2013 C difficile Toxins Positive Comments: PERFORMED BY: [facility] [id number] Information: SRC:ST 13:41 A+B, EIA (Abnormal) 35-Nqi-194946:38 Urinalysis, Office (79306) UA - BILIRUBIN Negative (Normal) UA - BLOOD Negative (Normal) UA - GLUCOSE Negative (Normal) UA - KETONES Negative mg/dL (Normal) UA - LEUKOCYTE ESTERASE Small (Normal) UA - NITRITE Negative (Normal) UA - PH 8.0 (Normal) UA - PROTEIN Negative mg/dL (Normal) UA - SPECIFIC GRAVITY 1.015 (Normal) URINE UROBILINGN OSMAR Normal mg/dL TIMED (Normal) 49-Fvp-579050: C difficile Toxins A+B, Positive (Abnormal) Comments: PERFORMED BY: [employer]70 demandmartAt[facility] [id number] Information: SRC:ST 56 EIA 43-Csi-00271:0 CDIF See Note (Normal) Comments: COPY OF REPORT SENT TO INFECTION CONTROL 12/06/[address] [place] [address].RESULTS [address].FAST JOSEPH TO JACOBO12/06/12 LIZBETH [...] in these cases. C. DIFF ANTIGENS POSITIVE : CUST Comments: COPY OF REPORT SENT TO INFECTION CONTROL 12/06/12 1432SRenaissance LearningNIKOLAS.RESULTS CALLED TO DR.FAST JOSEPH TO JACOBO12/06/12 151LIZBETH CASAREZ.REPORT READ BACK BY SAME . SHIGA See Note (Normal) Comments: SHIGA TOXIN 1 AND SHIGA TOXIN 2 NOT DETECTED CULST See Note (Normal) Comments: No Salmonella, Shigella, Yersinia or Campylobacter isolated.No significant amount of Staphylococcus aureusor yeast-like organisms isolated. : OP See Note (Normal) Comments: OVA AND PARASITES EXAM, ROUTINE These results were obtained using wet preparation(s) and trichrome stained smear. This test does not include testing for Crytosporidium parvum, Cyclospora, or Microspo ridia. TESTING PERFORMED AT [facility]. ORIGINAL REPORT ON FILE IN LAB CONTAINS ADDITIONAL TEST SITE INFORMATION. OVA/ PARASITES EXAM NO OVA, CYSTS, OR PARASITES FOUND. : STOB See Note (Abnormal) Comments: COPY OF REPORT SENT TO INFECTION CONTROL 12/06/12 1432SESPERANZA.RESULTS CALLED TO DR.FAST JOSEPH TO JACOBO12/06/12 151LIZBETH CASAREZ.REPORT READ BACK BY SAME . Comments: OCCULT BLOOD POSITIVE :01 WBCST See Note (Abnormal) Comments: COPY OF REPORT SENT TO INFECTION CONTROL 12/06/12 1432SOSNIKOLAS.RESULTS CALLED TO DR.FAST JOSEPH TO JACOBO12/06/12 LIZBETH MENEZES.REPORT READ BACK BY SAME . Comments: FECAL WBC LACTOFERRIN Positive: Fecal WBC Lactoferrin present 44-Ood-310353:00 MICROALBUMIN: CREATININE RATIO Comments: PATIENT WAS FASTINGPERFORMED BY: [facility] [id number] (64453) AND (36443) Creatinine, Urine 144.4 mg/dL (Normal) Range: 15.0-278.0 Microalb/Creat Ratio 4.2 {mg/g_creat} (Normal) Range: 0.0-30.0 Microalbumin, Urine 6.0 ug/mL (Normal) Range: 0.0-17.0 71-Abo-628553:00 LIPID PANEL (89446) Comments: PATIENT WAS FASTINGPERFORMED BY: OrderMyGear [facility] [id number] LDL/HDL Ratio 1.3 {ratio_units} (Normal) Range: 0.0-3.2 HDL Cholesterol 87 mg/dL (Normal) Comments: According to ATP-III Guidelines, HDL-C >59 mg/dL is considered anegative risk factor for CHD. LDL Cholesterol Calc 116 mg/dL (Abnormal) Range: 0-99 VLDL Cholesterol Sumeet 24 mg/dL (Normal) Range: 5-40 Cholesterol, Total 227 mg/dL (Abnormal) Range: 100-199 Triglycerides 122 mg/dL (Normal) Range: 0-149 11-Atz-964792:00 CBC WITH MANUAL DIFF Comments: PATIENT WAS FASTINGPERFORMED BY: PlayPhilo.Com BidAway.com [facility] [id number] Information: [id number] (18407) Immature Grans (Abs) 0.0 {x10E3/uL} (Normal) Range: [...] 3.77-5.28 WBC 4.6 {x10E3/uL} (Normal) Range: 4.0-10.5 68-Eew-416361:00 METABOLIC PANEL, COMPREHENSIVE Comments: PATIENT WAS FASTINGPERFORMED BY: LabCoChrist HospitalYjtlmy5976 [facility] [id number] (63240) ALT (SGPT) 26 [iU]/L (Normal) Range: 0-32 [...] Glucose, Serum 93 mg/dL (Normal) Range: 65-99 88-Uxn-103764:00 Vitamin D Hydroxy (08965) Comments: PATIENT WAS FASTINGPERFORMED BY: [employer]Alert Cpuwaq9672 [facility] [id number] Vitamin D, 25-Hydroxy 34.1 ng/mL (Normal) Range: 30.0-100.0 Comments: Vitamin D deficiency has been defined by the [place] [facility] and an Endocrine Society practice guideline as alevel of serum 25-OH vitamin D less than 20 ng/mL (1,2).The Endocrine Society went on to further define vitamin Dinsufficiency as a level between 21 and 29 ng/mL (2).1. IOM ([place] of Medicine). 2010. Dietary reference intakes for calcium and D. [place]: The National Academies Press.2. Hannah MF, Hilda SONG, Cindy FREED, et al. Evaluation, treatment, and prevention of vitamin D deficiency: an Endocrine Society clinical practice guideline. JCEM. 2010; 96(7):1911-30. 41-Hhu-483612:29 URINE WON CULTURE-OSMAR COL Comments: PATIENT NOT FASTINGPERFORMED BY: [facility] Bdpovi8438 [facility] [id number] Information: SRC: [id number] COUNT (38960) Result 1 CNSNSS (Normal) Comments: Coagulase negative [...] S Urine Final report Culture,Comprehensi (Normal) ve 85-Ccw-569305:39 Urinalysis, Office (85893) UA - BILIRUBIN Negative (Normal) UA - BLOOD Negative (Normal) UA - GLUCOSE Negative (Normal) UA - KETONES Negative mg/dL (Normal) UA - LEUKOCYTE ESTERASE Trace (Normal) UA - NITRITE Negative (Normal) UA - PH 8.0 (Normal) UA - PROTEIN Trace mg/dL (Normal) UA - SPECIFIC GRAVITY 1.020 (Normal) URINE UROBILINGN OSMAR TIMED Normal mg/dL (Normal) 95-Zzk-027605:27 HgA1C , Office (52701) HgA1C , Office 5.9 % (Normal) Range: 4.6 - 7.1 8-Uhb-044806:45 CULTURE, SPUTUM (32976) Comments: PATIENT NOT FASTINGPERFORMED BY: [facility] Oyuskp5860 [facility] [id number] Information: SRC:[facility] [id number] Result 1 RRF (Normal) Comments: Routine respiratory trpi Lower Respiratory Culture Final report (Normal) 8-Dao-001572:41 Urinalysis, Office (96276) UA - BILIRUBIN Negative (Normal) UA - BLOOD Negative (Normal) UA - GLUCOSE Negative (Normal) UA - KETONES Negative mg/dL (Normal) UA - LEUKOCYTE ESTERASE Trace (Normal) UA - NITRITE Negative (Normal) UA - PH 7.0 (Normal) UA - PROTEIN Negative mg/dL (Normal) UA - SPECIFIC GRAVITY 1.020 (Normal) URINE UROBILINGN OSMAR TIMED Normal mg/dL (Normal) 95-Eim-408208:29 Urinalysis, Office (08214) UA - BILIRUBIN Negative (Normal) UA - BLOOD Hemolyzed Large (Normal) UA - GLUCOSE Negative (Normal) UA - KETONES Negative mg/dL (Normal) UA - LEUKOCYTE ESTERASE Trace (Normal) UA - NITRITE Negative (Normal) UA - PH 6.0 (Normal) Comments: 5.5 UA - PROTEIN Negative mg/dL (Normal) UA - SPECIFIC GRAVITY 1.025 (Normal) Comments: >=1.030 URINE UROBILINGN OSMAR TIMED Normal mg/dL (Normal) 25-Xwk-028481:59 URINE WON CULTURE-OSMAR COL Comments: PATIENT NOT FASTINGPERFORMED BY: LabCoChrist HospitalGwasgg3659 [facility] [id number] Information: SRC:UR [id number] COUNT (74399) Result 1 Alpha streptococcus Comments: 900 Colonies/mLSusceptibility not normally performed on this organism. (Normal) Urine Final report (Normal) Culture,Comprehensi ve 63-Rzd-167886:41 Urinalysis, Office (39314) UA - NITRITE Negative (Normal) URINE UROBILINGN OSMAR TIMED 2 mg/dL (Normal) UA - PROTEIN Trace mg/dL (Normal) UA - PH 7.0 (Normal) UA - BLOOD Hemolyzed Large (Normal) UA - SPECIFIC GRAVITY 1.025 (Normal) UA - KETONES Negative mg/dL (Normal) UA - BILIRUBIN Negative (Normal) UA - GLUCOSE Negative (Normal) 24-Qtb-32704:00 CHEST, PA AND LATERAL Radiology Report See [...] change. Signed:Yousif Hathaway M.D.July at 1:40:15 PM [phone] Signed GP/GP If you are the referring physician and would like to consult with theradiologist who provided this interpretation, please contact Yousif Hathaway M.D. at [phone]. If this radiologist is unavailable, youwill be directed to another radiologist to assist. If you are a patient with a question regarding this report, pleasecontactyour r eferring physician directly. Professional Interpretation Provided By: Abigail Stewart, Phone , These documents contain legally protected [...] destructionofthese documents. Dictated on 07/27/12 1351 by Amanda Roa MDranscribed on 07/28/12 1402 by ITS IMPORTSign by Yousif Hathaway MD on 07/28/12 1403 Sign by: Yousif Hathaway MD 83-Vko-561083:27 CBC WITH MANUAL DIFF Comments: PATIENT WAS FASTINGPERFORMED BY: LabCoChrist HospitalMzyaeg9505 [facility] [id number] Information: [id number] (53576) Immature Grans (Abs) 0.0 {x10E3/uL} (Normal) Range: [...] 3.77-5.28 WBC 5.9 {x10E3/uL} (Normal) Range: 4.0-10.5 42-Pbu-752517:27 METABOLIC PANEL, COMPREHENSIVE Comments: PATIENT WAS FASTINGPERFORMED BY: [facility]6370 [facility] [id number] (46607) ALT (SGPT) 16 [iU]/L (Normal) Range: 0-32 [...] Glucose, Serum 86 mg/dL (Normal) Range: 65-99 5-Uif-736289:09 HgA1C , Office (82542) HgA1C , Office 6.0 % (Normal) Range: 4.6 - 7.1 58-Dxg-982249:27 HEPATIC FUNCTION PANEL Comments: PATIENT WAS FASTINGPERFORMED BY: InstantLuxe LabAVTherapeutics6370 [facility] [id number] (80732) Bilirubin, Direct 0.09 mg/dL (Normal) Range: 0.00-0.40 20-Vcy-133223:27 LIPID PANEL (66518) Comments: PATIENT WAS FASTINGPERFORMED BY: InstantLuxe LabCoAndover College PrepTlqwht0086 [facility] [id number] LDL/HDL Ratio 1.8 {ratio_units} (Normal) Range: 0.0-3.2 LDL Cholesterol Calc 129 mg/dL (Abnormal) Range: 0-99 VLDL Cholesterol Sumeet 28 mg/dL (Normal) Range: 5-40 HDL Cholesterol 72 mg/dL (Normal) Comments: According to ATP-III Guidelines, HDL-C >59 mg/dL is considered anegative risk factor for CHD. Triglycerides 139 mg/dL (Normal) Range: 0-149 Cholesterol, Total 229 mg/dL (Abnormal) Range: 100-199 16-Cxe-685285:51 Microscopic Examination Comments: PATIENT WAS FASTINGPERFORMED BY: [employer]os[employer] Zoswty3980 [facility] [id number] Bacteria None seen (Normal) Mucus Threads Present (Normal) Epithelial Cells (non renal) 0-10 {/hpf} (Normal) Range: 0 - 10 RBC 0-3 {/hpf} (Normal) Range: 0 - 3 WBC 0-5 {/hpf} (Normal) Range: 0 - 5 :51 LIPID PANEL (68387) Comments: PATIENT WAS FASTINGPERFORMED BY: PlayPhilo.Com BidAway.com [facility] [id number]; f/u 06/08/12 LDL/HDL Ratio 1.4 {ratio_units} (Normal) Range: 0.0-3.2 LDL Cholesterol Calc 109 mg/dL (Abnormal) Range: 0-99 VLDL Cholesterol Sumeet 36 mg/dL (Normal) Range: 5-40 HDL Cholesterol 78 mg/dL (Normal) Comments: According to ATP-III Guidelines, HDL-C >59 mg/dL is considered anegative risk factor for CHD. Triglycerides 179 mg/dL (Abnormal) Range: 0-149 Cholesterol, Total 223 mg/dL (Abnormal) Range: 100-199 50-Smx-191393:51 VITAMIN B-12 (CYANOCOBALAMIN) Comments: PATIENT WAS FASTINGPERFORMED BY: [employer]un Ljyumh3616 [facility] [id number] (95607) Vitamin B12 702 pg/mL (Normal) Range: 211-946 94-Kob-523470:51 Vitamin D Hydroxy (66355) Comments: PATIENT WAS FASTINGPERFORMED BY: [employer] Nhuwso3307 [facility] [id number] Vitamin D, 25-Hydroxy 43.0 ng/mL (Normal) Range: 30.0-100.0 Comments: Vitamin D deficiency has been defined by the [place] ofMedicine and an Endocrine Society practice guideline as alevel of serum 25-OH vitamin D less than 20 ng/mL (1,2).The Endocrine Society went on to further define vitamin Dinsufficiency as a level between 21 and 29 ng/mL (2).1. IOM ([place] of Medicine). 2010. Dietary reference intakes for calcium and D. [place]: The National Academies Press.2. Hannah MF, Hilda SONG, Cindy FREED, et al. Evaluation, treatment, and prevention of vitamin D deficiency: an Endocrine Society clinical practice guideline. JCEM. 2010; 96(7):1911-30. :51 URINALYSIS, W/ MICRO (08288) Comments: PATIENT WAS FASTINGPERFORMED BY: [facility] [id number] Microscopic Examination See below: (Normal) Microscopic Examination MICRON (Normal) Comments: Microscopic follows if indicated. Nitrite, Urine Negative (Normal) Urobilinogen,Semi-Qn 0.2 mg/dL (Normal) Range: 0.0-1.9 Bilirubin Negative (Normal) Occult Blood Negative (Normal) Ketones Negative (Normal) Glucose Negative (Normal) Protein Negative (Normal) WBC Esterase Negative (Normal) Appearance Clear (Normal) Urine-Color Yellow (Normal) pH 7.0 (Normal) Range: 5.0-7.5 Specific [place] 1.019 (Normal) Range: 1.005-1.030 :51 METABOLIC PANEL, Comments: PATIENT WAS FASTINGPERFORMED BY: OrbFlex6370 [facility] [id number] Information: [id number] COMPREHENSIVE (01925) ALT (SGPT) 17 [iU]/L (Normal) Range: 0-40 [...] Glucose, Serum 95 mg/dL (Normal) Range: 65-99 99-Bvl-029212:51 TSH (27911) Comments: PATIENT WAS FASTINGPERFORMED BY: InstantLuxe LabUrbanSitter Bptncc2672 [facility] [id number] TSH 1.860 {uIU/mL} (Normal) Range: 0.450-4.500 28-Lyg-429628:31 Blood Glucose , Office (31092) Blood Glucose , Office 119 (Normal) 62-Ugs-580321:22 FECAL OCCULT- Tubes sent home (68414) FECAL OCCULT HGB ASSAY, QUAL, 1-3 SIMULTANEOU Negative (Normal) :56 CBC WITH MANUAL DIFF Comments: PATIENT WAS FASTINGPERFORMED BY: [employer] LabUrbanSitter Uanfli9265 [facility] [id number] Information: [id number] (47290) Immature Grans (Abs) 0.0 {x10E3/uL} (Normal) Range: [...] {x10E3/uL} (Normal) Range: 4.0-10.5 :56 RETICULOCYTE COUNT [facility] (37434) Comments: PATIENT WAS FASTINGPERFORMED BY: [facility] Fusfdt1167 [facility] [id number] Reticulocyte Count 0.9 % (Normal) Range: 0.5-3.0 :56 IRON BINDING CAPACITY (TIBC) Comments: PATIENT WAS FASTINGPERFORMED BY: LabCoChrist HospitalLqleiy2376 [facility] [id number] (72190) Iron Saturation 12 % (Abnormal) Range: 15-55 Iron, Serum 47 ug/dL (Normal) Range: 35-155 UIBC 342 ug/dL (Normal) Range: 150-375 Iron Bind.Cap.(TIBC) 389 ug/dL (Normal) Range: 250-450 :56 FERRITIN (88206) Comments: PATIENT WAS FASTINGPERFORMED BY: LabCoChrist HospitalLqkhbe2812 [facility] [id number] Ferritin, Serum 10 ng/mL (Abnormal) Range: 13-150 98-Uic-729178:13 HgA1C , Office (06489) HgA1C , Office 5.8 % (Normal) Range: 4.6 - 7.1 54-Esg-456756:13 Blood Glucose , Office (00982) Blood Glucose , Office 116 (Normal) 7-Uvs-779345:00 CBC WITH MANUAL DIFF Comments: PATIENT WAS FASTINGPERFORMED BY: LabCoChrist HospitalDjnezd7215 [facility] [id number] Information: [id number] (38660) Immature Grans (Abs) 0.0 {x10E3/uL} (Normal) Range: [...] CREATININE RATIO Comments: PATIENT WAS FASTINGPERFORMED BY: PicosunChrist HospitalHyosqh6154 [facility] [id number] (21675) AND (30340) Microalb/Creat Ratio 3.8 {mg/g_creat} (Normal) Range: 0.0-30.0 Creatinine, Urine 200.2 mg/dL (Normal) Range: 15.0-278.0 Microalbumin, Urine 7.7 ug/mL (Normal) Range: 0.0-17.0 : METABOLIC PANEL, COMPREHENSIVE Comments: PATIENT WAS FASTINGPERFORMED BY: [facility] HospitalUniphoreChrist HospitalVxtzlr2369 [facility] [id number] (81786) ALT (SGPT) 12 [iU]/L (Normal) Range: 0-40 [...] Glucose, Serum 96 mg/dL (Normal) Range: 65-99 5-Pfb-856551:00 LIPID PANEL (09053) Comments: PATIENT WAS FASTINGPERFORMED BY: BERE Voiceit70 [facility] [id number] LDL/HDL Ratio 1.3 {ratio_units} (Normal) Range: 0.0-3.2 LDL Cholesterol Calc 99 mg/dL (Normal) Range: 0-99 VLDL Cholesterol Sumeet 26 mg/dL (Normal) Range: 5-40 HDL Cholesterol 75 mg/dL (Normal) Comments: According to ATP-III Guidelines, HDL-C >59 mg/dL is considered anegative risk factor for CHD. Triglycerides 129 mg/dL (Normal) Range: 0-149 Cholesterol, Total 200 mg/dL (Abnormal) Range: 100-199 96-Mfi-467869:12 HgA1C , Office (82378) HgA1C , Office 6.1 % (Normal) Range: 4.6 - 7.1 04-Awo-423739:12 Blood Glucose , Office (22201) Blood Glucose , Office 100 (Normal) :46 Anaerobic and Aerobic Comments: PERFORMED BY: Sagencelin6370 [facility] [id number] Information: SRC:FL LEFT ANKLE Culture Result 1 NG36 (Normal) Comments: No growth in 36 - 48 hours. Aerobic Culture Final report (Normal) Result 1 NANG72 (Normal) Comments: No anaerobic growth in 72 hours. Anaerobic Culture Final report (Normal) 20-Xoa-497870:23 CHEST, PA AND LATERAL Radiology Report See [...] comparison study. Dictated on 02/16/11 1335 by Veronica Hathaway MDeleTranscribed on 02/17/11 1036 by ITS IMPORTSign by Yousif Hathaway MD on 02/17/11 1037 Sign by: _ Yousif Hathwaay MD 55-Nyv-765698:57 LIPID PANEL (41459) Comments: PATIENT WAS FASTINGPERFORMED BY: [facility]6370 [facility] [id number] LDL/HDL Ratio 1.3 {ratio_units} (Normal) Range: 0.0-3.2 LDL Cholesterol Calc 113 mg/dL (Abnormal) Range: 0-99 VLDL Cholesterol Sumeet 23 mg/dL (Normal) Range: 5-40 HDL Cholesterol 90 mg/dL (Normal) Comments: According to ATP-III Guidelines, HDL-C >59 mg/dL is considered anegative risk factor for CHD. Cholesterol, Total 226 mg/dL (Abnormal) Range: 100-199 Triglycerides 113 mg/dL (Normal) Range: 0-149 62-Mnf-995499:57 METABOLIC PANEL, COMPREHENSIVE Comments: PATIENT WAS FASTINGPERFORMED BY: PicosunChrist HospitalJdhihr1965 [facility] [id number] (84929) ALT (SGPT) 18 [iU]/L (Normal) Range: 0-40 [...] Glucose, Serum 98 mg/dL (Normal) Range: 65-99 31-Ajz-914713:57 CBC WITH MANUAL DIFF Comments: PATIENT WAS FASTINGPERFORMED BY: [facility]Asc[facility]6370 [facility] [id number] Information: [id number] (57594) Immature Grans (Abs) 0.0 {x10E3/uL} (Normal) Range: [...] (Normal) Range: 4.0-10.5 :57 HgA1C , Office (81437) HgA1C , Office 5.9 % (Normal) Range: 4.6 - 7.1 :57 Blood Glucose , Office (97542) Blood Glucose , Office 94 (Normal) :46 DEXA BONE DENSITY STUDY (HP) Radiology Report See Note (Normal) Comments: CLINICAL:Female, 65 years old. Postmenopausal with past history of steroid use,family history and bone fracture. EXAMINATION:DUAL ENERGY X-RAY ABSORPTIOMETRY / DEXA. TECHNIQUE:Bone Mineral Density (BMD ) measurements of lumbar spine and bilateralhipswere obtained using a Civilised[employer] scanner.. COMPARISON:Prior bone density of November 27, [...] Foundation [email or web address] Dictated on 11/27/10 1402 by Fuad,TheresaTranscribed on 11/28/102030 by ITS IMPORTSign by FuadErna on 11/28/102031 Sign by: Erna Merida 33-Khp-060945:06 Vitamin D Hydroxy (62276) Comments: PATIENT WAS FASTINGPERFORMED BY: LabCo Hntcae8198 [facility] [id number] Vitamin D, 25-Hydroxy 51.1 ng/mL (Normal) Range: 32.0-100.0 Comments: Recent studies consider the lower limit of 32.0 ng/mL to be athreshold for optimal health.Fred VILLARREAL. J Nutr. 2004;135(2):317-22. 69-Ucn-824748:06 LIPID PANEL (05050) Comments: PATIENT WAS FASTINGPERFORMED BY: [facility] Gtwzrt6942 [facility] [id number] LDL Cholesterol Calc 66 mg/dL (Normal) Range: 0-99 LDL/HDL Ratio 0.8 {ratio_units} (Normal) Range: 0.0-3.2 VLDL Cholesterol Sumeet 20 mg/dL (Normal) Range: 5-40 HDL Cholesterol 88 mg/dL (Normal) Comments: According to ATP-III Guidelines, HDL-C >59 mg/dL is considered anegative risk factor for CHD. Cholesterol, Total 174 mg/dL (Normal) Range: 100-199 Triglycerides 99 mg/dL (Normal) Range: 0-149 87-Hgi-506847:06 CBC WITH MANUAL DIFF Comments: PATIENT WAS FASTINGPERFORMED BY: [facility] Gjydnj3135 [facility] [id number] Information: [id number] (80057) Immature Grans (Abs) 0.0 {x10E3/uL} (Normal) Range: [...] 3.80-5.10 WBC 4.8 {x10E3/uL} (Normal) Range: 4.0-10.5 69-Mha-081375:06 METABOLIC PANEL, COMPREHENSIVE Comments: PATIENT WAS FASTINGPERFORMED BY: LabCoChrist HospitalSrbzlv3687 [facility] [id number] (50566) ALT (SGPT) 25 [iU]/L (Normal) Range: 0-40 [...] Glucose, Serum 85 mg/dL (Normal) Range: 65-99 80-Izb-275671:06 MICROALBUMIN: CREATININE RATIO Comments: PATIENT WAS FASTINGPERFORMED BY: [facility] [id number] (34651) AND (22020) Creatinine, Urine 220.5 mg/dL (Normal) Range: 15.0-278.0 Microalb/Creat Ratio 5.4 {mg/g_creat} (Normal) Range: 0.0-30.0 Microalbumin, Urine 12.0 ug/mL (Normal) Range: 0.0-17.0 01-Iab-866620:10 HgA1C , Office (41017) HgA1C , Office 5.8 % (Normal) Range: 4.6 - 7.1 :10 Blood Glucose , Office (63577) Blood Glucose , Office 107 (Normal) 9-Rzz-633352:23 Microscopic Examination Comments: PATIENT NOT FASTINGPERFORMED BY: NowThis News70 demandmartAtrium Health Pineville [id number] Bacteria Few (Normal) Mucus Threads Present (Normal) Epithelial Cells (non renal) 0-10 {/hpf} (Normal) Range: 0 - 10 RBC 0-3 {/hpf} (Normal) Range: 0 - 3 WBC 0-5 {/hpf} (Normal) Range: 0 - 5 :23 VITAMIN B-12 (CYANOCOBALAMIN) Comments: PATIENT NOT FASTINGPERFORMED BY: PicosunNew Mexico Rehabilitation CenterGjwdar7884 [facility] [id number] (83813) Vitamin B12 685 pg/mL (Normal) Range: 211-946 :23 URINALYSIS, W/ MICRO (40149) Comments: PATIENT NOT FASTINGPERFORMED BY: JobzleNortheast Regional Medical CenterYzyson4223 [facility] [id number] Microscopic Examination See below: (Normal) Microscopic Examination MICRON (Normal) Comments: Microscopic follows if indicated. Nitrite, Urine Negative (Normal) Urobilinogen,Semi-Qn 0.2 mg/dL (Normal) Range: 0.0-1.9 Bilirubin Negative (Normal) Appearance Clear (Normal) Glucose Negative (Normal) Ketones Negative (Normal) Occult Blood Negative (Normal) Protein Negative (Normal) WBC Esterase Negative (Normal) pH 6.5 (Normal) Range: 5.0-7.5 Urine-Color Yellow (Normal) Specific [place] 1.020 (Normal) Range: 1.005-1.030 :23 TSH (88882) Comments: PATIENT NOT FASTINGPERFORMED BY: JobzleNortheast Regional Medical CenterBhthdx6493 [facility] [id number] TSH 1.630 {uIU/mL} (Normal) Range: 0.450-4.500 :23 CBC WITH MANUAL DIFF Comments: PATIENT NOT FASTINGPERFORMED BY: [facility]6370 [facility] [id number] Information: [id number] (44586) Immature Grans (Abs) 0.0 {x10E3/uL} (Normal) Range: [...] (Normal) Range: 4.0-10.5 :25 HgA1C , Office (31867) HgA1C , Office 5.8 % (Normal) Range: 4.6 - 7.1 90-Vfn-069923:25 Blood Glucose , Office (32295) Blood Glucose , Office 106 (Normal) :35 Rapid Strep Test, Office (66013) Rapid Strep Test, Office Negative (Normal) 97-Jks-035018:41 HEPATIC FUNCTION PANEL Comments: PATIENT WAS FASTINGPERFORMED BY: LabCoChrist HospitalMrpadj1132 [facility] [id number] Information: [id number] (97913) ALT (SGPT) 19 [iU]/L (Normal) Range: 0-40 Alkaline Phosphatase, S 63 [iU]/L (Normal) Range: 25-165 AST (SGOT) 22 [iU]/L (Normal) Range: 0-40 Albumin, Serum 4.5 g/dL (Normal) Range: 3.6-4.8 Bilirubin, Direct 0.13 mg/dL (Normal) Range: 0.00-0.40 Bilirubin, Total 0.4 mg/dL (Normal) Range: 0.0-1.2 Protein, Total, Serum 6.2 g/dL (Normal) Range: 6.0-8.5 :41 LIPID PANEL (01777) Comments: PATIENT WAS FASTINGPERFORMED BY: InstantLuxe LabCoChrist HospitalNyibfi8970 [facility] [id number] LDL/HDL Ratio 1.1 {ratio_units} (Normal) Range: 0.0-3.2 HDL Cholesterol 66 mg/dL (Normal) Comments: According to ATP-III Guidelines, HDL-C >59 mg/dL is considered anegative risk factor for CHD. LDL Cholesterol Calc 75 mg/dL (Normal) Range: 0-99 Triglycerides 78 mg/dL (Normal) Range: 0-149 VLDL Cholesterol Sumeet 16 mg/dL (Normal) Range: 5-40 Cholesterol, Total 157 mg/dL (Normal) Range: 100-199 :41 Vitamin D Hydroxy (87393) Comments: PATIENT WAS FASTINGPERFORMED BY: [facility] Sgbbfi9704 [facility] [id number] Vitamin D, 25-Hydroxy 46.3 ng/mL (Normal) Range: 32.0-100.0 Comments: Recent studies consider the lower limit of 32.0 ng/mL to be athreshold for optimal health.Fred VILLARREAL. J Nutr. 2004;135(2):317-22. :54 HgA1C , Office (23701) HgA1C , Office 6.2 % (Normal) Range: 4.6 - 7.1 :54 Blood Glucose , Office (29376) Blood Glucose , Office 91 (Normal) 06-Gzo-103938:34 CBCD,SMEAR DIFF RED CELL MORPH SeeNote {NORMAL} [...] 11.6-14.6 WBC 5.4 K/mm3 (Normal) Range: 4.4-11.0 80-Jmy-444846:34 COMP METABOLIC A/G 1.3 {RATIO} (Normal) Range: [...] 6.4-8.2 GLU 91 mg/dL (Normal) Range: 70-110 96-Efv-077982:34 D BILI 0.06 mg/dL (Normal) Range: 0.00-0.30 34-Foq-368218:34 LIPID HDL 60 mg/dL (Normal) Comments: Reference [...] CHOL 223 mg/dL (Abnormal) Comments: <200 mg/dL Zquzmwhsc650-929 mg/dL Borderline>240 mg/dL High Risk 73-Giy-872172:34 MICROALB:CRE UR MALB:CREAT 5.4 {mg/g_CRE} (Normal) MICROALBUMIN,UR 10.9 mg/L (Normal) UR CREAT 199.6 mg/dL (Normal) 03-Lpj-025961:34 VIT D,25 00041 36.2 ng/mL (Normal) Range: 32.0-100.0 Comments: Recent studies consider the lower limit of 32.0 ng/mL to adan threshold for optimal health.Fred VILLARREAL. J Nutr. 2004;135(2):317-22.Performed at: - Lab[address] [id number] Director: Roseann Carter MD 2-Qbn-876594:28 HgA1C , Office (14829) HgA1C , Office 5.9 % (Normal) Range: 4.6 - 7.1 3-Nkm-026120:28 Blood Glucose , Office (01008) Blood Glucose , Office 103 (Normal) 97-Vhe-855269:07 LIPID CHOL 205 mg/dL (Abnormal) Comments: <200 mg/dL Dgdmjarux135-636 mg/dL Borderline>240 mg/dL High Risk HDL 76 mg/dL (Normal) Comments: Reference RangeHDL <40 mg/dL Low HDL CholesterolHDL >or= 60 mg/dL High HDL Cholesterol LDL 105 mg/dL (Normal) Range: 0-130 TRIG 121 mg/dL (Normal) Comments: Serum Triglycerides Reference IntervalNormal <150 mg/dLBorderline high 150 - 199 mg/dLHigh 200 - 499 mg/ dLVery High > or = 500 mg/dL VLDL 24 mg/dL (Normal) Range: 5-40 98-Xcd-705179:07 LIVER ALB 3.9 g/dL (Normal) Range: 3.4-5.0 ALK P 72 U/L (Normal) Range: 50-136 ALT 29 U/L (Normal) Range: 12-78 AST 15 U/L (Normal) Range: 15-37 D BILI 0.09 mg/dL (Normal) Range: 0.00-0.30 T BILI 0.40 mg/dL (Normal) Range: 0.00-1.00 T PROT 6.9 g/dL (Normal) Range: 6.4-8.2 :27 Blood Glucose , Office (28158) Blood Glucose , Office 97 (Normal) :26 HgA1C , Office (46719) HgA1C , Office 5.6 % (Normal) Range: 4.6 - 7.1 :48 CBCD,SMEAR DIFF CELLS COUNTED 100 (Normal) EOS [...] (Normal) Range: 0.358-3.74 :58 HgA1C , Office (93195) HgA1C , Office 5.6 % (Normal) Range: 4.6 - 7.1 :58 Blood Glucose , Office (38203) Blood Glucose , Office 110 (Normal) :11 [...] T PROT 6.6 g/dL (Normal) Range: 6.4-8.2 :11 LIPID CHOL 179 mg/dL (Normal) Comments: <200 [...] mg/dL VLDL 22 mg/dL (Normal) Range: 5-40 :11 PHOS 2.6 mg/dL (Normal) Range: 2.5-4.9 :11 PROT.[id number] ALBUMIN,UR 31.3 % (Normal) TQFVB-6-KQMX,U 1.6 % (Normal) NHUUR-2-CMNM,U 13.0 % (Normal) BETA GLOB,U 40.1 % (Normal) GAMMA GLOB,U 14.0 % (Normal) M-SPIKE,U SeeNote % (Normal) Comments: Result: Not Observed NOTE Comment (Normal) Comments: Protein electrophoresis scan will follow via computer,mail, or pressurizer delivery. PROTEIN,UR 10.2 mg/dL (Normal) Range: 0.0-15.0 :11 PTH,UHBRYN06220 PTH,Intact 28 pg/mL (Normal) Range: 15-65 Comments: Performed At: [facility]6[address] [place], [place] [id number] :11 SPE [id number] A/G RATIO 1.7 (Normal) Range: 0.7-2.0 ALBUMIN [...] electrophoresis scan will follow via computer,mail, or pressurizer delivery. PROTEIN,TOTAL 6.3 g/dL (Normal) Range: 6.0-8.5 4-Duf-062676:05 TRANSVAGINAL NON-PREG US () Radiology Report See Note (Normal) Comments: Exam Number: [id number] PELVIC ULTRASOUND HISTORYAbnormal pelvic exam. Transabdominal and transvaginal studies were performed. Highresolution real time sector images were obtained. The chapito angela is sandra l in size measuring [...] not seen. Reported By: JAVY CASTRO M.D. 1-Lcs-298751:51 PELVIC (NON-PREG) () Radiology Report See Note (Normal) Comments: Exam Number: [id number] PELVIC ULTRASOUND HISTORYAbnormal pelvic exam. Transabdominal and transvaginal studies were performed. Highresolution real time sector images were obtained. The chapito angela is sandra l in size measuring [...] not seen. Reported By: JAVY CASTRO M.D. 48-Jul-560729:41 Thin prep Pap Comments: Source.............Cervical;EndocervicalLMP / Prev Treat...CVD=229903Ye. of containers..01 CYTYC Thin Prep VialPATIENT NOT FASTINGClinical Information: ADD [id number] (49869) PERFORMED BY: Jobzle[address] [id number] . . (Normal) DIAGNOSIS: SPRCS (Normal) Comments: NEGATIVE FOR INTRAEPITHELIAL LESION AND MALIGNANCY.Satisfactory for evaluation. Endocervical component may not bedistinguished in cases of atrophy.V72.31 ; Routine gynecological examination Lilly Bravo, English Faculty Member (ASCP) Note: PAPSMR (Normal) Comments: The Pap smear [...] was performed. . :35 HgA1C , Office (03901) HgA1C , Office 5.5 % (Normal) Range: 4.6 - 7.1 58-Tlv-340803:35 Blood Glucose , Office (97781) Blood Glucose , Office 102 (Normal) 7-Dxq-227959:54 CBCD,SMEAR DIFF BAND 1 % (Normal) Range: [...] 47-70 WBC 4.9 K/mm3 (Normal) Range: 4.4-11.0 7-Qpc-391002:54 COMP METABOLIC A/G 1.2 {RATIO} (Normal) Range: [...] for patient's is the eGFRmultiplied by 1.212. [facility] Laboratory uses the abbreviated Modification of Diet [...] Disease W/O Kidney Disease>/= 90 Stage One Lknpnz88 - 89 Stage Two Suspect Decreased GFR30 [...] T PROT 6.8 g/dL (Normal) Range: 6.4-8.2 7-Guj-934861:54 LIPID CHOL 183 mg/dL (Normal) Comments: <200 [...] {uIU/mL} (Normal) Range: 0.34-4.82 :54 VIT D,25 86780 40.7 ng/mL (Normal) Range: 32.0-100.0 Comments: Recent studies consider the lower limit of 32.0 ng/mL to adan threshold for optimal health.Fred VILLARREAL. J Nutr. 2004;135(2):317-22.Performed At: [facility] [place] [id number] 26-Gma-021850:19 DEXA BONE DENSITY STUDY (HP) Radiology Report See Note (Normal) Comments: Exam Number: [id number] BONE DENSITOMETRY HISTORYOsteopenia. TECHNIQUE Bone densitometry of [...] in 2001 and 4.8% less than in 2005. Digital lateral view forevaluation of vertebral deformity o nly demonstrates slight loss ofanterior height of T7. The T-value of the left femoral neck is -1.4which is in the range of osteopenia. The T-value of the total left hipis -0.5 which is normal. Bone mine ral density is measured at 9.2% lessthan in 2001 and 8.1% less than in 2005. IMPRESSIONThere is osteopenia of the lumbar spine and left hip. Reported By: JAVY CASTRO M.D. :57 KNEE,3 VIEWS (MT) Radiology Report See Note (Normal) Comments: Exam Number: [id number] LEFT KNEE CLINICAL INFORMATIONFall, pain. 3 views [...] seen otherwise. Reported By: SHANELL LOFTON M.D. :34 Blood Glucose , Office (43740) Blood Glucose , Office 113 (Normal) :34 HgA1C , Office (77637) HgA1C , Office 5.8 % (Normal) Range: 4.6 - 7.1 78-Piy-425670:19 HEPATIC FUNCTION PANEL Comments: PATIENT WAS FASTINGClinical Information: ADD DRAW FEE [id number] ADD J [id number] PERFORMED BY: NowThis News70 [address] [facility] [id number] (34918) Albumin, Serum 4.6 g/dL (Normal) Range: 3.6-4.8 Alkaline Phosphatase, S 83 [iU]/L (Normal) Range: 25-165 ALT (SGPT) 17 [iU]/L (Normal) Range: 0-40 AST (SGOT) 22 [iU]/L (Normal) Range: 0-40 Bilirubin, Direct 0.12 mg/dL (Normal) Range: 0.00-0.40 Bilirubin, Total 0.5 mg/dL (Normal) Range: 0.1-1.2 Protein, Total, Serum 7.0 g/dL (Normal) Range: 6.0-8.5 :19 LIPID PANEL (80345) Comments: PATIENT WAS FASTINGPERFORMED BY: [facility] [id number] Cholesterol, Total 186 mg/dL (Normal) Range: 100-199 HDL Cholesterol 66 mg/dL (Abnormal) Range: 40-59 Comments: HDL cholesterol values >59 mg/dL are associated with reduced cardiacrisk. LDL Cholesterol Calc 99 mg/dL (Normal) Range: 0-99 LDL/HDL Ratio 1.5 {ratio_units} (Normal) Range: 0.0-3.2 Triglycerides 107 mg/dL (Normal) Range: 0-149 VLDL Cholesterol Sumeet 21 mg/dL (Normal) Range: 5-40 21-Hfl-210895:16 HgA1C , Office (30852) HgA1C , Office 5.5 % (Normal) Range: 4.6 - 7.1 :16 Blood Glucose , Office (09235) Blood Glucose , Office 125 (Normal) 06-Oez-389849:03 MICROALBUMIN: CREATININE RATIO Comments: PATIENT WAS FASTINGPERFORMED BY: Picosun[address] [id number] (72716) AND (98790) Microalbum.,U,Random 3.8 ug/mL (Normal) Range: 0.0-17.0 :03 HEPATIC FUNCTION PANEL Comments: PATIENT WAS FASTINGClinical Information: ADD DRAW FEE [id number] ADD J [id number] PERFORMED BY: SecureAlert [address] [id number] (50578) Albumin, Serum 4.8 g/dL (Normal) Range: 3.6-4.8 Alkaline Phosphatase, S 77 [iU]/L (Normal) Range: 25-165 ALT (SGPT) 20 [iU]/L (Normal) Range: 0-40 AST (SGOT) 22 [iU]/L (Normal) Range: 0-40 Bilirubin, Direct 0.11 mg/dL (Normal) Range: 0.00-0.40 Bilirubin, Total 0.4 mg/dL (Normal) Range: 0.1-1.2 Protein, Total, Serum 7.0 g/dL (Normal) Range: 6.0-8.5 :03 LIPID PANEL (60060) Comments: PATIENT WAS FASTINGPERFORMED BY: LabCo38 Anderson StreetDublin [place] [id number] Cholesterol, Total 205 mg/dL (Abnormal) Range: 100-199 [...] (Normal) Range: 5-40 :53 HgA1C , Office (73128) HgA1C , Office 5.4 % (Normal) Range: 4.6 - 7.1 :52 Blood Glucose , Office (39550) Blood Glucose , Office 96 (Normal) 39-Djf-078617:42 CHEST, PA AND LATERAL Radiology Report See Note (Normal) Comments: Exam Number: [id number] PA AND LATERAL CHEST HISTORY Being done for cough. Cardiac configuration is normal. There are mild emphysematouschanges. No acute infiltrate, effusion, or pneumothorax isidenti fied. There is spur formation mid dorsal spine. These findingswere all seen on December 10, 2006, and are unchanged. IMPRESSIONNo acute change noted in the lungs. Reported By: CHANEL SANDY M.D. :32 LIPID PANEL (71628) Comments: PATIENT WAS FASTINGPERFORMED BY: BERE LabAsc[facility]6370 [facility] [id number] Cholesterol, Total 204 mg/dL (Abnormal) Range: 100-199 [...] Cholesterol Sumeet 25 mg/dL (Normal) Range: 5-40 45-Far-433281:32 URINALYSIS W/O MICRO (89501) Comments: PATIENT WAS FASTINGPERFORMED BY: PicosunChrist HospitalLugcsj8485 [facility] [id number] Appearance Clear (Normal) Bilirubin Negative (Normal) Glucose Negative (Normal) Ketones Negative (Normal) Microscopic Examination MICRON (Normal) Comments: Microscopic follows if indicated. Nitrite, Urine Negative (Normal) Occult Blood Negative (Normal) pH 6.5 (Normal) Range: 5.0-7.5 Protein Negative (Normal) Specific [place] 1.019 (Normal) Range: 1.005-1.030 Urine-Color Yellow (Normal) Urobilinogen,Semi-Qn 0.2 mg/dL (Normal) Range: 0.0-1.9 WBC Esterase Negative (Normal) 06-Xpc-843908:32 TSH (65524) Comments: PATIENT WAS FASTINGPERFORMED BY: [employer]Alert Sssgms2072 [facility] [id number] TSH 2.348 {uIU/mL} (Normal) Range: 0.350-5.500 57-Rdz-933740:32 METABOLIC PANEL, COMPREHENSIVE Comments: PATIENT WAS FASTINGPERFORMED BY: PlayPhilo.ComChrist HospitalZwyjuz5900 [facility] [id number] (90293) A/G Ratio 1.7 (Normal) Range: 1.1-2.5 Albumin, [...] Sodium, Serum 141 mmol/L (Normal) Range: 135-148 20-Ewn-590420:32 CBC WITH MANUAL DIFF (37795) Comments: PATIENT WAS FASTINGClinical Information: ADD DRAW FEE [id number] ADD J [id number] PERFORMED BY: BERE LabCoChrist HospitalRpwmra0808 [facility] [id number] Baso (Absolute) 0.0 {x10E3/uL} (Normal) Range: 0.0-0.2 [...] Range: 4.0-10.5 :56 Blood Glucose , Office (04465) Blood Glucose , Office 84 (Normal) :56 HgA1C , Office (09042) HgA1C , Office 5.4 % (Normal) Range: 4.6 - 7.1 :12 Blood Glucose , Office ([id number]) Comments: done-[facility] Blood Glucose , Office 94 (Normal) :12 HgA1C , Office (09212) Comments: done-[facility] HgA1C , Office 5.3 % (Normal) Range: [...] Range: 5-40 :27 ANTIBODY SCREEN NEGATIVE (Normal) :27 BLOOD TYPE PT A NEGATIVE (Normal) :27 BMP BUN 16 mg/dL (Normal) Range: 7-18 [...] (Normal) Range: 4.4-11.0 :52 HgA1C , Office (00125) Comments: [facility] HgA1C , Office 5.2 % (Normal) Range: 4.6 - 7.1 :52 Blood Glucose , Office (84870) Comments: [facility] Blood Glucose , Office 99 (Normal) :59 [...] 11.6-14.6 WBC 8.2 K/mm3 (Normal) Range: 4.4-11.0 :00 COMPLETE UA Comments: COMMENTS: CULTURE IF WBC>5Precautions*: [...] 11.6-14.6 WBC 6.3 K/mm3 (Normal) Range: 4.4-11.0 11-Dec-20066:20 LYTES Comments: Precautions*: NOT APPLICABLE CL 99 mmol/L (Normal) Range: 98-107 CO2 30.2 mmol/L (Abnormal) Range: 22.0-29.0 GAP 9 (Normal) Range: 5-15 K 3.2 mmol/L (Abnormal) Range: 3.5-5.1 NA 138 mmol/L (Normal) Range: 136-145 76-Slw-770307:12 BMP CL 104 mmol/L (Normal) Range: 98-107 CO2 31.5 mmol/L (Abnormal) Range: 22.0-29.0 GAP 4 (Abnormal) Range: 5-15 K 4.3 mmol/L (Normal) Range: 3.5-5.1 BUN 13 mg/dL (Normal) Range: 7-18 BUN/CRE 16.3 {RATIO} (Normal) Range: 10-20 CA 8.7 mg/dL (Normal) Range: 8.5-10.1 CREAT,SERUM 0.8 mg/dL (Normal) Range: 0.6-1.0 GLU 70 mg/dL (Normal) Range: 70-110 NA 139 mmol/L (Normal) Range: 136-145 57-Ggw-109194:12 CBC HCT 37.4 % (Normal) Range: 37-47 HGB 12.8 g/dL (Normal) Range: 12.0-16.0 MCH 30.5 pg (Normal) Range: 27.0-32.0 MCHC 34.1 g/dL (Normal) Range: 32-36 MCV 89.4 fL (Normal) Range: 81-99 PLT 295 K/mm3 (Normal) Range: 150-450 RBC 4.19 {M/mm3} (Abnormal) Range: 4.2-5.4 RDW 12.8 % (Normal) Range: 11.6-14.6 WBC 6.2 K/mm3 (Normal) Range: 4.4-11.0 28-Mhh-792214:12 PRO TIME INR 0.9 (Normal) PROTIME 11.7 s (Normal) Range: 11.7-13.3 52-Kqc-656746:12 PTT 30.0 s (Normal) Range: 24.6-36.6 :34 Blood Glucose , Office (94576) Blood Glucose , Office 109 (Normal) :34 HgA1C , Office (07360) HgA1C , Office 5.4 % (Normal) Range: 4.6 - 7.1 :42 GLUP 141 mg/dL (Abnormal) Comments: GLU,2HPPG 75gm GLUC PPG GLUP from 1127:U07666M. Comments: Glucose result from 140 to <200 mg/dL suggestsIMPAIRED GLUCOSE HOMEOSTASIS per A.D.A. criteria. :37 B12/FOLATES 810 FOLATES,S 2013 19.9 ng/mL (Normal) Comments: Indeterminate: 3.4 - 5.4 Deficient: <3.4Performed At: [id number] [place], [place] [id number] VIT B12 1503 375 pg/mL (Normal) Range: [...] 47-70 WBC 6.7 K/mm3 (Normal) Range: 4.4-11.0 83-Lno-278914:37 COMP METABOLIC A/G 1.5 {RATIO} (Normal) Range: [...] Plan of Care Name Dates Details Instructions Nonsmoker : Eprescribed prescriptions (G8553) Indication: Nonsmoker BMI 31.0-31.9,adult : Follow up if no [...] syndrome Obstructive sleep apnea, adult : Reviewed Staff [employer] Officer Letter Indication: Obstructive sleep apnea, adult Abnormal [...] Indication: Symptom, Cough Planned Observations Sputum Culture (93233)Indication: Cough On: 29-Tyb-277141:45 Request INFECTIOUS ANTIGEN, RSV (44939)Indication: Upper respiratory infection (Renamed from Infection of the upper respiratory tract) On: 07-Lff-735699:19 Request CALCIFEDIOL (81514)Indication: Depression On: 1-Uij-240543:31 Request TSH ([id number])Indication: Abnormal glucose tolerance test On: 4-Xeb-254415:29 Request URINALYSIS, W/ MICRO (04193)Indication: Abnormal glucose tolerance test On: 3-Wdp-816717:29 Request MICROALBUMIN: CREATININE RATIO (12733) AND ([id number])Indication: Abnormal glucose tolerance test On: :29 Request METABOLIC PANEL, COMPREHENSIVE (75327)Indication: Abnormal glucose tolerance test On: : Request LIPOPROTEIN, BLD, BY NMR ([id number])Indication: Abnormal glucose tolerance test On: : Request CBC W/AUTO DIFF WBC (00756)Indication: Abnormal glucose tolerance test On: : Request Clostridium difficile Toxin A+B, EIA ([id number])Indication: Diarrhea On: 26-Zip-963119:04 Request Cologuard - Strool Based DNA Test, CRC SCREEN (74482)Indication: Encounter for screening for malignant neoplasm of colon (Renamed from Special screening for malignant neoplasms, colon) On: 10-Lva-875755:58 Request Lipid Panel (63981)Indication: Other hyperlipidemia On: 71-Hbc-747858:58 Request CBC WITH MANUAL DIFF (21400)Indication: Other hyperlipidemia On: 60-Plp-801189:58 Request MICROALBUMIN: CREATININE RATIO (55073) AND (41648)Indication: Other hyperlipidemia On: 53-Agq-253129:58 Request URINALYSIS (01705)Indication: Other hyperlipidemia On: 34-Maf-296676:58 Request TSH (12810)Indication: Other hyperlipidemia On: 50-Avb-338108:58 Request Metabolic Panel, Comprehensive (64866)Indication: Other hyperlipidemia On: 13-Xhg-748937:57 Request GIARDIA LAMBLIA ANTIBODY (17611)Indication: Diarrhea (Renamed from D (diarrhea)) On: : Request WON CULTURE-STOOL (82882)Indication: Diarrhea (Renamed from D (diarrhea)) On: : Request OCCULT BLOOD FECES SCREEN (91213)Indication: Diarrhea (Renamed from D (diarrhea)) On: : Request LEUKOCYTE COUNT, FECAL (95013)Indication: Diarrhea (Renamed from D (diarrhea)) On: : Request C-DIFFICILE, STOOL ([id number])Indication: Diarrhea (Renamed from D (diarrhea)) On: : Request SQZIF-BRGZJJUINFW-SANIX ([id number])Indication: Elevated AFP On: 4-Kix-881906:55 Request GDBUA-THISOZYZTFS-TTBIZ ([id number])Indication: Elevated tumor markers On: :39 Request VITAMIN B12 AND FOLATES (71921)Indication: Other hyperlipidemia On: :39 Request CALCIFEDIOL (26606)Indication: Other hyperlipidemia On: :39 Request TSH (THYROID STIMULATING HORMONE) (11714)Indication: Other hyperlipidemia On: :39 Request LIPID PANEL (71550)Indication: Other hyperlipidemia On: :39 Request METABOLIC PANEL, COMPREHENSIVE (80586)Indication: Other hyperlipidemia On: :39 Request CBC, PLATELETS & AUT DIFF ([id number])Indication: Other hyperlipidemia On: :39 Request CBC W/AUTO DIFF WBC (40066)Indication: Abnormal glucose tolerance test On: :05 Request LIPID PANEL (81091)Indication: Other hyperlipidemia On: :04 Request METABOLIC PANEL, COMPREHENSIVE (11727)Indication: Abnormal glucose tolerance test On: 55-Vkf-687852:04 Request MICROALBUMIN: CREATININE RATIO (54690) AND (57152)Indication: Abnormal glucose tolerance test On: 52-Axt-165226:04 Request WAAJJ-VSBQRTFLWMJ-CFWCZ ([id number])Indication: Other chronic nonalcoholic liver disease On: 95-Kwy-279619:02 Request TSH ([id number])Indication: Depression On: 67-Jqk-604396:37 Request LIPID PANEL ([id number])Indication: Hyperlipidemia, unspecified On: 17-Buk-917981:36 Request KZYXV-CDRUIWCWHBT-HQRBF ([id number])Indication: Other chronic nonalcoholic liver disease On: 20-Gwi-517640:35 Request CBC W/AUTO DIFF WBC ([id number])Indication: Abnormal glucose tolerance test On: 69-Lrw-170051:35 Request METABOLIC PANEL, COMPREHENSIVE (08631)Indication: Abnormal glucose tolerance test On: 19-Mdz-571789:35 Request FECAL OCCULT HGB ASSAY- tubes sent home (15903)Indication: Anemia, unspecified On: 62-Sje-806355:19 Request METABOLIC PANEL, COMPREHENSIVE (84938)Indication: Abnormal glucose tolerance test On: 85-Ctk-981821:43 Request IRON ([id number])Indication: Anemia, unspecified On: 72-Igc-954969:30 Request HgA1C , Office (74665)Indication: Abnormal glucose tolerance test On: 67-Gnr-387690:53 Request UPEP (00707)Indication: Osteopenia On: 58-Zmr-417607:50 Request SPEP ([id number])Indication: Osteopenia On: :50 Request UPEP ([id number])Indication: Osteopenia On: 85-Lca-400482:13 Request SPEP ([id number])Indication: Osteopenia On: 07-Esd-984416:13 Request TSH ([id number])Indication: Osteopenia On: :23 Request PHOSPHORUS ([id number])Indication: Osteopenia On: :23 Request PARATHORMONE ([id number])Indication: Osteopenia On: :23 Request URINE CALCIUM OSMAR TIMED 24 Hour ([id number])Indication: Osteopenia On: :23 Request UPEP ([id number])Indication: Osteopenia On: 75-Ymf-881169:23 Request SPEP ([id number])Indication: Osteopenia On: 26-Fei-715528:23 Request C-DIFFICILE, STOOL (36934)Indication: Clostridium difficile infection On: 0-Qap-185785:25 Request C-DIFFICILE, STOOL ([id number])Indication: Diarrhea (Renamed from D (diarrhea)) On: 55-Ria-113048:57 Request WON CULTURE-STOOL ([id number])Indication: Diarrhea (Renamed from D (diarrhea)) On: :06 Request C-DIFFICILE, STOOL ([id number])Indication: Diarrhea (Renamed from D (diarrhea)) On: :05 Request LEUKOCYTE COUNT, FECAL ([id number])Indication: Diarrhea (Renamed from D (diarrhea)) On: :05 Request OCCULT BLOOD FECES SCREEN ([id number])Indication: Diarrhea (Renamed from D (diarrhea)) On: :05 Request OVA & PARASITE DIR SMEAR ([id number])Indication: Diarrhea (Renamed from D (diarrhea)) On: :05 Request C DIFF AMPLIFIED PROBE ([id number])Indication: Diarrhea (Renamed from D (diarrhea)) On: 26-Yoc-792024:53 Request Rapid Flu (88658 x 2)Indication: Symptom, Cough On: 0-Qgc-720312:35 Request URINE WON CULTURE-OSMAR COL COUNT ([id number])Indication: Hematuria (Renamed from Blood in the urine) On: 5-Snr-936319:28 Request Urinalysis, Office (54034)Indication: Hematuria (Renamed from Blood in the urine) On: 4-Ccr-096428:00 Request HgA1C , Office (62162)Indication: Abnormal glucose tolerance test On: 13-Phh-701786:31 Request IRON ([id number])Indication: Iron deficiency anemia, unspecified On: 42-Fhz-756307:22 Request BACT CULTURE ANY-ANAEROBIC (18696)Indication: CELLULITIS/ABSCESS, FOOT On: 43-Ris-480639:02 Request Comments: left ankle MICROALBUMIN: CREATININE RATIO (16179) AND (33228)Indication: Abnormal glucose tolerance test On: :22 Request CBC WITH MANUAL DIFF ([id number])Indication: Abnormal glucose tolerance test On: 1-Eqn-887855:22 Request METABOLIC PANEL, COMPREHENSIVE (88797)Indication: Abnormal glucose tolerance test On: 6-Orr-689098:22 Request Vitamin D Hydroxy (79263)Indication: Osteopenia On: 0-Ccc-527472:21 Request HEPATIC FUNCTION PANEL (24131)Indication: Hyperlipidemia, unspecified On: 9-Lnt-530321:21 Request LIPID PANEL (90190)Indication: Hyperlipidemia, unspecified On: 1-Asr-927938:21 Request HEPATIC FUNCTION PANEL (89620)Indication: Hyperlipidemia, unspecified On: 17-Znb-557306:47 Request LIPID PANEL (30868)Indication: Hyperlipidemia, unspecified On: 91-Dpb-209788:47 Request TSH ([id number])Indication: Other and unspecified disorders of circulatory system On: :41 Request METABOLIC PANEL, COMPREHENSIVE (42687)Indication: Abnormal glucose tolerance test On: 83-Jmz-447572:41 Request MICROALBUMIN: CREATININE RATIO (81283) AND (17954)Indication: Abnormal glucose tolerance test On: 79-Iku-835289:34 Request LIPID PANEL ([id number])Indication: Hyperlipidemia, unspecified On: 56-Lqr-115657:34 Request PT (Prothrobim Time) (29562)Indication: Other and unspecified disorders of circulatory system On: :34 Request PTT (Activated Partial Thromboplastin Time) (08243)Indication: Other and unspecified disorders of circulatory system On: 05-Lkt-261254:34 Request CBC WITH MANUAL DIFF ([id number])Indication: Other and unspecified disorders of circulatory system On: :34 Request HEPATIC FUNCTION PANEL (07980)Indication: Hyperlipidemia, unspecified On: :17 Request LIPID PANEL (03453)Indication: Hyperlipidemia, unspecified On: :17 Request UPEP ([id number])Indication: Osteopenia On: :52 Request SPEP (37696)Indication: Osteopenia On: :51 Request PHOSPHORUS ([id number])Indication: Osteopenia On: :51 Request PARATHORMONE ([id number])Indication: Osteopenia On: :51 Request MICROALBUMIN: CREATININE RATIO (59851) AND (91710)Indication: Abnormal glucose tolerance test On: 93-Jrb-170855:44 Request LIPID PANEL (42059)Indication: Hyperlipidemia, unspecified On: :38 Request METABOLIC PANEL, COMPREHENSIVE ([id number])Indication: Abdominal pain, acute, generalized On: 00-Nif-632355:38 Request CBC WITH MANUAL DIFF ([id number])Indication: Abdominal pain, acute, generalized On: 38-Mop-120767:38 Request TSH ([id number])Indication: Osteopenia On: 15-Auc-735539:38 Request Vitamin D Hydroxy (71625)Indication: Osteopenia On: 26-Oiq-570477:38 Request LIPID PANEL (46515)Indication: Other hyperlipidemia On: 44-Owf-849030:33 Request GLUCOSE, PP/2 HOUR (60561)Indication: Fatigue On: :59 Request URINALYSIS W/O MICRO (86952)Indication: Fatigue On: :58 Request TSH ([id number])Indication: Fatigue On: :58 Request CBC WITH MANUAL DIFF ([id number])Indication: Fatigue On: :58 Request METABOLIC PANEL, COMPREHENSIVE (52584)Indication: Fatigue On: 94-Ahb-73250:58 Request Planned Encounters Medical; 6 Month FU - On: 17-Mar-2019 13:00 [facility] Jessica Tanner DO, DO, Kathleen Planned Procedures Solu -Medrol Injection, 125 mg On: 29-Nov-2018 Intent (J2930)By: Nell Yeager CNP Comments: solumedrol 125mg injection lot:[id number]: GM pt tolerated well MSMITH,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 Aerosol Treatment (40082)By: On: 29-Nov-2018 Intent Carlos Lee CHEST XRAY, PA & LATERAL On: 25-Nov-2018 Intent (41663)By: Nell Yeager CNP Solu -Medrol Injection, 125 mg On: 25-Nov-2018 Intent (J2930)By: Nell Yeager CNP ELECTROCARDIOGRAM, COMPLETE On: 15-Sep-2018 Intent (ECG) (68396)By: Ciro JACQUES, Comments: nsr no acute chg Jessica Preston DO Spirometry (96702)By: Ciro On: 15-Sep-2018 Intent Jessica JACQUES DO, Kathleen ORTHOSTATIC BLOOD PRESSURE On: 24-May-2018 Intent ASSESSMENT (78144)By: Ana M Christine LPN PNEUM VAC ADLT/IMUMNOSPR, On: 28-Apr-2018 Intent SBC/INTRM (44101)By: Ciro JACQUES, Comments: pneumovax prefilled syringe injectionlot: [id number]: 12/2018R DELT IMpt tolerated wellAD 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 Jessica Preston DO [facility] On: 28-Apr-2018 Intent COUNSELING FOR OBESITY, 15 MINUTES (G0447)By: Jessica Tanner DO, DO, Kathleen DEXA SCAN AXIAL SKELETON On: 28-Apr-2018 Intent (68709)By: Jessica Tanner DO, DO, Kathleen Flu Vaccine (Quadrivalent) On: 02-Aug-2017 Intent 74860Fr: Jessica Tanner DO Comments: InfluenzaLot #[id number]-/18/18Site-L dltd, IMDose prefilled syringeVIS and ABN signedgiven by:INÉS lu DO, Kathleen ZLHO-[facility] On: 08-Apr-2017 Intent COUNSELING FOR OBESITY, 15 MINUTES (G0447)By: Jessica Tanner DO, DO, Kathleen ELECTROCARDIOGRAM, COMPLETE On: 11-Mar-2017 Intent (ECG) (23954)By: Ciro JACQUES, Comments: nsr no acute chg Jessica Preston DO Aerosol Treatment (22843)By: On: 22-Feb-2017 Intent Tamia Wood Comments: Lungs clear after aersol treatment. Radiology - ChestBy: [place], On: 22-Feb-2017 Intent Tamia Aerosol Treatment ([id number])By: On: 31-Dec-2016 Intent Tamia Wood Comments: Albuterol 0.083%relistened -more a/e Aerosol Treatment (60532)By: On: 28-Oct-2016 Intent Ciesa [employer]PL[employer]OVER MAKER, Soniya Aerosol Treatment (33261)By: On: 15-Oct-2016 Intent Jessica Tanner DO, DO, Comments: more a/e no wheeze less chest tightness Jessica CT - Abdomen & Pelvis (IV On: 15-Sep-2016 Intent Contrast Needed)By: Nena ADHIKARI, Comments: to be done 11/2016 Doug Flu Vaccine (Quadrivalent) On: 02-Sep-2016 Intent 60771Bp: Doug Barrett MD Comments: FLUlot: [id number]:05/07/17site:Lt deltoidroute:IMdose:.5mlBEBA PHAM Radiology - Chest- PA and On: 05-May-2016 Intent LatBy: Clemencia Ferreira DO A CT - Abdomen (IV Contrast On: 05-May-2016 Intent Needed)By: Clemencia Ferreira DO Comments: elevated alpha feto protein Radiology - Shoulder - LeftBy: On: 03-Jan-2016 Intent Clemencia Ferreira DO Flu Vaccine (Quadrivalent) On: 09-Aug-2015 Intent [id number]: Clemencia Ferreira DO Comments: Lot #:[id number] date: 04/2016Amount given:prefilled syringeSite given:L Dltd, IMGiven by: Jflinner, MAVIS and ABN signed ADMINISTRATION OF INFLUENZA On: 09-Aug-2015 Intent VIRUS VACCINE (G0008)By: Clemencia Ferreira DO Aerosol Treatment (43960)By: On: 05-Jun-2015 Intent Otto Ferreira DOa A Solu- Medrol Injection, 125mg On: 05-Jun-2015 Intent (J2930)By: Clemencia Ferreira DO Comments: lot:[id number]:route:IMdose:125MGsite: R glutGiven by: VAMSI Watt MRI LIVER W CONTRAST ([id number])By: On: 26-Apr-2015 Intent Clemencia Ferreira DO DEXA SCAN AXIAL SKELETON On: 05-Apr-2015 Intent ([id number])By: Clemencia Ferreira DO Ultrasound - LiverBy: Jhon JACQUES, On: 05-Apr-2015 Intent Clemencia Enciso EKG (21811)By: Clemencia Ferreira DO On: 05-Apr-[address] - AbdomenBy: Clemencia Ferreira DO On: 07-Dec-2014 Intent A Comments: attn liver - elevated alpha feto protein Aerosol Treatment (57262)By: On: 05-Nov-2014 Intent Nell Yeager CNP Prevnar 13 (13905)By: Visit, On: 30-Aug-2014 Intent Nurse Comments: [id number] arm, IMas ADMINISTRATION OF INFLUENZA On: 17-Aug-2014 Intent VIRUS VACCINE (G0008)By: Clemencia Ferreira DO FLU VAC, SPLIT, >3 YEARS, On: 17-Aug-2014 Intent INTRAMUSC (56493)By: Jhon JACQUES, Comments: lot: [id number]: 05-07-15site/route: L del/IMamt: 0.5mLVIS signed when applicableVAMSI Wagner Clemencia A Solu -Medrol Injection, 125 mg On: 13-Aug-2014 Intent (J2930)By: Nell Yeager CNP Aerosol Treatment (01590)By: On: 13-Aug-2014 Intent Nell Yeager CNP Ultrasound - LiverBy: Jhon JACQUES, On: 25-May-2014 Intent Clemencia A Aerosol Treatment (01721)By: On: 26-Mar-2014 Intent Nell Yeager CNP Aerosol Treatment (27267)By: On: 26-Mar-2014 Intent Nell Yeager CNP EKG (76700)By: Otto Ferreira DOa On: 16-Feb-2014 Intent A Comments: ekg showed normal sinus rhythym, normal axis, no acute st/t wave changes Eprescribed prescriptions On: 16-Feb-2014 Intent (G8553)By: Jhon JACQUES Clemencia A Eprescribed prescriptions On: 21-Nov-2013 Intent (G8553)By: Kristy Hinton Eprescribed prescriptions On: 19-Jul-2013 Intent (G8553)By: Brooke Conklin FLU VAC, SPLIT, >3 YEARS, On: 19-Jul-2013 Intent INTRAMUSC (35902)By: Rubin, Comments: Lot #:[id number] date:mount given:0.5mlRoute: IMSite given: L dltdVIS and ABN signedGiven by: BEBA Higgins ADMINISTRATION OF INFLUENZA On: 19-Jul-2013 Intent VIRUS VACCINE (G0008)By: Brooke Conklin CT - ChestBy: Jhon JACQUES Clemencia A On: 01-Mar-2013 Intent PFT - CompleteBy: Jhon JACQUES, On: 01-Mar-2013 Intent Clemencia A Eprescribed prescriptions On: 01-Mar-2013 Intent (G8553)By: Brooke Conklin Toradol Injection, 30 mg On: 04-Jan-2013 Intent (J1885)By: Jessica Tanner DO Comments: Lot:[id number]:07/2014Dose:30mLRoute:IMSite:r hipGiven By:HUYEN signed Jessica Tanner DO Eprescribed prescriptions On: 20-Dec-2012 Intent (G8553)By: Otto Ferreira DOa A DXA, BONE DENSITY, AXIAL On: 29-Nov-2012 Intent SKELETON (71545)By: Jhon JACQUES Clemencia A Eprescribed prescriptions On: 29-Nov-2012 Intent (G8553)By: Brooke Conklin Solu -Medrol Injection, 125 mg On: 23-Nov-2012 Intent (J2930)By: Essie Fletcher LPN Comments: Lot #[id number]/15Site-left hipDose- 125 mggiven by: Nito Fletcher LPN Eprescribed prescriptions On: 23-Nov-2012 Intent (G8553)By: Brooke Conklin Solu -Medrol Injection, 125 mg On: 21-Nov-2012 Intent (J2930)By: Clemencia Ferreira DO Comments: Lot: [id number]: mt: 125mgRoute: IMSite: R Gluteal without difficulty or c/o voiced. Given by: INÉS Benjamin Pulse Oximetry (75711)By: On: 21-Nov-2012 Intent Brooke Conklin Comments: 93%- recheck 95 Eprescribed prescriptions On: 21-Nov-2012 Intent (G8553)By: Brooke Conklin Solu -Medrol Injection, 125 mg On: 18-Nov-2012 Intent (J2930)By: Tamia Roblero LPN Comments: pushed By Dr. Tanner trough pt IV lot [id number] exp 04/22 Rocephon Injection, 2 Gm On: 18-Nov-2012 Intent (J0696)By: Tamia Roblero LPN Comments: IV initiated in: R ACwith 22 gaugenumber of attempts: x2 attempts, infiltrated in R FA on first attempt.Tolerated well: without c/o voiced.Rocephin Lot#[id number], exp03/21-2 gms in NS 100cc's infused without difficulty or c/o voiced. Solu- Medrol Injection, 125mg On: 17-Nov-2012 Intent (J2930)By: Jessica Tanner DO Comments: Lot #[id number]-0/15Site-right hipDose- 125 mggiven by: INÉS Fuller DO, Kathleen Eprescribed prescriptions On: 17-Nov-2012 Intent (G8553)By: Jessica Tanner DO, DO, Kathleen Rocephon Injection, 2 Gm On: 17-Nov-2012 Intent (J0696)By: Tamia Roblero LPN THER/PROPH/DIAG IV INF, INIT On: 16-Nov-2012 Intent (89070)By: Clemencia Ferreira DO Comments: lot # [id number]- 03/21site-Rantecubital fossaroute-IVdose- 2GCHenderson 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 Solu -Medrol Injection, 125 mg On: 16-Nov-2012 Intent (J2930)By: Clemencia Ferreira DO Comments: Lot:[id number]:Dose:125mgRoute:IMSite:l hipGiven By:HUYEN signed INFUSION, NORMAL SALINE On: 16-Nov-2012 Intent SOLUTION , 250 CC (J7050)By: Clemencia Ferreira DO Rocephin Injection, 2 Gram On: 16-Nov-2012 Intent (J0696)By: Clemencia Ferreira DO Pulse Oximetry (16644)By: On: 16-Nov-2012 Intent Brooke Conklin Comments: 95% Eprescribed prescriptions On: 16-Nov-2012 Intent (G8553)By: Brooke Conklin Aerosol Treatment (03758)By: On: 09-Nov-2012 Intent Nell Yeager CNP FLU VAC, SPLIT, >3 YEARS, On: 28-Sep-2012 Intent INTRAMUSC (99921)By: Toy KLINE, Comments: Lot:[id number]:6.30.13Dose:0.5mLRoute:IMSite:L DltdGiven By:Willie signed Nell Cerna ADMINISTRATION OF INFLUENZA On: 28-Sep-2012 Intent VIRUS VACCINE (G0008)By: Nell Yeager CNP SPECIMEN HANDLING/TRANSPORT On: 28-Sep-2012 Intent (25306)By: Elissa Wallace LPN SPECIMEN HANDLING/TRANSPORT On: 07-Sep-2012 Intent (66898)By: Elissa Wallace LPN Radiology - Chest- PA and On: 08-Jun-2012 Intent LatBy: Clemencia Ferreira DO [place] VACC, [place] (14970)By: On: 28-Apr-2012 Intent Brooke Conklin Comments: pt received at [facility] 04/2012 Eprescribed prescriptions On: 20-Apr-2012 Intent (G8553)By: Clemencia Ferreira DO EKG (99201)By: Rubin, On: 20-Apr-2012 Intent Brooke Comments: ekg showed normal sinus rhythym, normal axis, no acute st/t wave changes Spirometry (23329)By: Rubin, On: 20-Apr-2012 Intent Brooke Comments: good effort and curve normal Eprescribed prescriptions On: 16-Mar-2012 Intent (G8553)By: Fast DO, Clemencia A Eprescribed prescriptions On: 16-Mar-2012 Intent (G8553)By: Fast DO, Clemencia A Eprescribed prescriptions On: 29-Jan-2012 Intent (G8553)By: Fast DO, Clemencia A Eprescribed prescriptions On: 27-Nov-2011 Intent (G8553)By: Jessica Tanner DO CiroJessica rodriguez DO PNEUM VAC ADLT/IMUMNOSPR, On: 19-Aug-2011 Intent SBC/INTRM (85805)By: Rubin, Comments: Lot #:[id number] date:mount given:0.5mlRoute: IMSite given:left deltGiven by: BEBA Higgins ADMINISTRATION OF PNEUMOCOCCAL On: 19-Aug-2011 Intent VACCINE (G0009)By: Brooke Conklin ADMINISTRATION OF INFLUENZA On: 04-Aug-2011 Intent VIRUS VACCINE (G0008)By: Brooke Conklin FLU VAC, SPLIT, >3 YEARS, On: 04-Aug-2011 Intent INTRAMUSC (41236)By: Brooke Conklin Radiology - Chest- PA and On: 30-Jan-2011 Intent LatBy: Jhon DO Clemencia A Aerosol Treatment (58975)By: On: 10-Nov-2010 Intent Ciesa Nell KLINE E Pulse Oximetry (30390)By: Ciesa On: 10-Nov-2010 Intent Nell KLINE E TDAP VACCINE >7 IM (96828)By: On: 21-Oct-2010 Intent Carla Velasquez LPN Comments: Lot #[id number]/13Site-L arm, IMDose prefilled syringegiven by: Radiology - Chest- PA and On: 07-Oct-2010 Intent LatBy: Fast DO, Clemencia A Spirometry (30725)By: Rubin, On: 07-Oct-2010 Intent Brooke Comments: good effort and curve normal DXA, BONE DENSITY, AXIAL On: 07-Oct-2010 Intent SKELETON (52933)By: Jhon JACQUES, Comments: vikas Enciso IMMUNIZ ADMNIN, 1 VAC, On: 07-Oct-2010 Intent SNGL/COMBO (05779)By: Rubin, Comments: Lot #[id number]-9/11Site-L armDose0.5mlgiven by:LISA ACUÑA VAC, SPLIT, >3 YEARS, On: 07-Oct-2010 Intent INTRAMUSC (57825)By: Brooke Conklin Solu -Medrol Injection, 125 mg On: 06-Aug-2010 Intent (J2930)By: Nell Yeager CNP Pulse Oximetry (65643)By: Toy On: 06-Aug-2010 Intent Nell KLINE Aerosol Treatment (26867)By: On: 06-Aug-2010 Intent Nell Yeager CNP EKG (12872)By: Clemencia Ferreira DO On: 07-Jul-2010 Intent A Comments: ekg showed normal sinus rhythym, normal axis, no acute st/t wave changes EKG (45833)By: Rubin, On: 03-Apr-2010 Intent Brooke Comments: ekg showed normal sinus rhythym, normal axis, no acute st/t wave changes FLU VAC, SPLIT, >3 YEARS, On: 05-Aug-2009 Intent INTRAMUSC (98779)By: Rubin, Comments: Lot #:[id number] date:mount given:0.5mlRoute: IMSite given:left deltGiven by: BEBA Higgins IMMUNIZ ADMNIN, 1 VAC, On: 05-Aug-2009 Intent SNGL/COMBO (57158)By: Brooke Conklin Solu -Medrol Injection, 125 mg On: 04-Jul-2009 Intent (J2930)By: Nell Yeager CNP Comments: Lot #: [id number] date: 02/17Amount given: 125 mg/2 mlRoute: IMSite given: Right hipGiven by: Fernie Singleton LPN Spirometry (92539)By: Rubin, On: 07-May-2009 Intent Brooke Comments: good effort and curve normal Ultrasound - PelvisBy: Jhon JACQUES, On: 04-Feb-2009 Intent Clemencia Enciso Radiology - ChestBy: Jhon DO, On: 04-Feb-2009 Intent Clemencia Enciso Comments: pa and tejal Pulse Oximetry ([id number])By: Toy On: 30-Jan-2009 Intent RAISA Soniya Aerosol Treatment ([id number])By: On: 30-Jan-2009 Intent Toy KLINE Soniya EKG ([id number])By: Rubin, On: 18-Dec-2008 Intent Brooke Comments: ekg showed normal sinus rhythym, normal axis, no acute st/t wave changes DXA, BONE DENSITY, AXIAL On: 07-Sep-2008 Intent SKELETON ([id number])By: Clemencia Ferreira DO FLU VAC, SPLIT, >3 YEARS, On: 07-Sep-2008 Intent INTRAMUSC ([id number])By: Rubin, Comments: Lot #:[id number] date:04/16Amount given:0.5mlRoute: IMSite given:left delGiven by: BEBA Higgins IMMUNIZ ADMNIN, 1 VAC, On: 07-Sep-2008 Intent SNGL/COMBO ([id number])By: Brooke Conklin Radiology - Knee - Left - On: 30-Jul-2008 Intent Weight BearingBy: Jhon JACQUES, Comments: with sunrise view Clemencia Enciso Spirometry ([id number])By: Rubin On: 06-Mar-2008 Intent Brooke Comments: good effort and curve normal Pulse Oximetry ([id number])By: On: 06-Mar-2008 Intent Brooke Conklin Comments: 98% Aerosol Treatment ([id number])By: On: 13-Feb-2008 Intent Jessica Tanner DO, DO, Kathleen Solu- Medrol Injection, 125mg On: 13-Feb-2008 Intent ([id number])By: Jessica Tanner DO Comments: Lot #: [id number] date: mount given: 125 mg/2 mlRoute: IMSite given: Right hipGiven by: INÉS Sabillon DO, Kathleen Pulse Oximetry ([id number])By: On: 13-Feb-2008 Intent KRISHNA Ridley EKG ([id number])By: Rubin, On: 29-Nov-2007 Intent Brooke Comments: ekg showed normal sinus rhythym, normal axis, no acute st/t wave changes IMMUNIZ ADMNIN, 1 VAC, On: 02-Sep-2007 Intent SNGL/COMBO ([id number])By: Kenia Fernandez FLU VAC, SPLIT, >3 YEARS, On: 02-Sep-2007 Intent INTRAMUSC ([id number])By: Kenia Fernandez Radiology - Chest- PA and On: 09-Aug-2007 Intent LatBy: Clemencia Ferreira DO A Spirometry ([id number])By: Jhon JACQUES, On: 09-Aug-2007 Intent Clemencia A Comments: good effort and curve with mild airway obstruction Pneumovax ([id number])By: Jhon JACQUES, On: 09-Aug-2007 Intent Clemencia A Comments: given im in left deltoid lot #[id number] exp.09/02/08-aw EKG ([id number])By: Clemencia Ferreira DO On: 20-Oct-2006 Intent A Comments: ekg showed normal sinus rhythym, normal axis, no acute st/t wave changes PNEUM VAC ADLT/IMUMNOSPR, On: 27-Sep-2006 Intent SBC/INTRM ([id number])By: KRISHNA Ridley IMMUNIZ ADMNIN, 1 VAC, On: 27-Sep-2006 Intent SNGL/COMBO ([id number])By: KRISHNA Ridley VAC, SPLIT, >3 YEARS, On: 23-Sep-2006 Intent INTRAMUSC ([id number])By: Kenia Jauregui IMMUNIZ ADMNIN, 1 VAC, On: 23-Sep-2006 Intent SNGL/COMBO ([id number])By: Kenia Jauregui Spirometry ([id number])By: Jhon JACQUES, On: 22-Sep-2006 Intent Clemencia A Comments: was normal with normal curve and effort -but pt with a definitive bronchospastic cough Overnight Pulse OX ([id number])By: On: 22-Sep-2006 Intent Clemencia Ferreira DO A Planned Medications INFUSION, NORMAL SALINE SOLUTION , 250 CC Ordered: 16-Nov-2012 Pending Clemencia Ferreira DO A INJECTION, CEFTRIAXONE SODIUM, PER 250 MG Ordered: 16-Nov-2012 Pending Fast DO, Clemencia A INJECTION, CEFTRIAXONE SODIUM, PER 250 MG Ordered: 17-Nov-2012 Pending Tamia Roblero LPN INJECTION, CEFTRIAXONE SODIUM, PER 250 MG Ordered: 18-Nov-2012 Pending Tamia Roblero LPN INJECTION, KETOROLAC TROMETHAMINE, PER 15 MG Ordered: 04-Jan-2013 Pending Ciro DO, Jessica Ciro DO, Jessica INJECTION, METHYLPREDNISOLONE SODIUM SUCCINATE, UP TO 125 MG Ordered: 16-Nov-2012 Pending Fast DO, Clemencia A INJECTION, METHYLPREDNISOLONE SODIUM SUCCINATE, UP TO 125 MG Ordered: 17-Nov-2012 Pending Ciro DO, Jessica Ciro DO, Jessica INJECTION, METHYLPREDNISOLONE SODIUM SUCCINATE, UP TO 125 MG Ordered: 18-Nov-2012 Pending Tamia Roblero 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 INJECTION, METHYLPREDNISOLONE SODIUM SUCCINATE, UP TO 125 MG Ordered: 21-Nov-2012 Pending Fast DO, Clemencia A INJECTION, METHYLPREDNISOLONE SODIUM SUCCINATE, UP TO 125 MG Ordered: 23-Nov-2012 Pending Chance BIRCHN, Essie INJECTION, METHYLPREDNISOLONE SODIUM SUCCINATE, UP TO 125 MG Ordered: 13-Aug-2014 Pending Ciesa [employer]PL[employer] MAKER, Soniya INJECTION, METHYLPREDNISOLONE SODIUM SUCCINATE, UP TO 125 MG Ordered: 05-Jun-2015 Pending Fast DO, Clemencia A INJECTION, METHYLPREDNISOLONE SODIUM SUCCINATE, UP TO 125 MG Ordered: 25-Nov-2018 Pending [employer]ies[employer] MAKER, Soniya INJECTION, METHYLPREDNISOLONE SODIUM SUCCINATE, UP TO 125 MG Ordered: 29-Nov-2018 Pending [employer]ies[employer]PL[employer] MAKER, Soniya Instructions Name Dates Details Nonsmoker : How to access health information online Indication: Nonsmoker Nonsmoker : How to access health information online - Detail Indication: Nonsmoker Nonsmoker : Patient Instructions Indication: Nonsmoker BMI 31.0-31.9,adult : How to access health [...] in the urine) Encounters Office Visit On: 29-Nov-2018 10:27 Encounter Reason: Cough - Symptoms include cough, wheezing, runny nose and stuffy nose. The cough is described as productive. Cough onset was 1 month(s) ago. Associated symptoms include hoarseness. Note for Cough: non End: 29-Nov-2018 16:08 stop coughing last pm, running nose with congestion, on going voice changeNot improving, This cough started Oct 25 went to ER 12-23, flu neg put on pred, Zpak, floven Rsv neg11-25-18 cough, hussein umed, pred, sputum RRF, chest hyper inflation and ganulomas1- cough prednisone, mucinex, flovent and albut and dayquil, and niquilEncounter Diagnosis: BMI 31.0-31.9,adult, Nonsmoker, Chronic obstructive asthma with acute exacerbation (Renamed from Chronic obstructive asthma with exacerbation), Cough, History of Clostridium difficile infection [facility] Office Visit On: 25-Nov-2018 10:28 Encounter Reason: [...] prednison, but did not improve and to [facility] added Z reji and breathing treatments, some [...] a sinus flare up and went to [place] -- been home and fine other than [...] patient does not have durable power of tax associate attorney or living will. The patient has noticed nothing from the geriatic depression scale. Other providers contributing to the patient's care are drug abuse technician, gastrologist, back sewer and surgeon.Encounter Diagnosis: Nonsmoker, BMI 30.0-30.9,adult, Annual [...] patient does not have durable power of tax associate attorney or living will. The patient has noticed nothi ng from the geriatic depression scale. 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 The symptoms have been associated with hoarseness [...] and zetia d/t cost and she's in donut hole.), has good energy level and is sleeping [...] Celia larkin was the doc in [place]-- no trauma- noticed this inlast 3-4 months [...] [ADDITIONAL REASON] Follow up tests - Date: (May 2012). Encounter Diagnosis: GERD (530.81), Depression (311.), [...] for Shoulder Problem: getting worse started in feb- she remembers falling- and extended arm backwards- [...] discharge. Note for Rash: Pt was outside [employer] bed.- she was exposed to poison alina [...] her of recent URI's that occured from [employer] [place] and believes End: 03-Apr-2010 15:49 its [...] any Ibs until ate salad out at [employer], [ADDITIONAL REASON] Follow up, Laboratory Test Results [...] low salt diet. The medical issues the pa corina is following up for include All identified [...] weight :. 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 Patient has been compliant with instructions. [facility] End: 31-Jan-2007 15:37 t medication use: no [...] help daughter just recently moved away to [place] ) ,excessive sleeping ,headache (at times ) [...] (786.2) [facility] Office Visit On: 27-Oct-2006 11:14 [facility] End: 03-Sep-2006 11:14 Payers MedicareAnthem/SupplementSue Hawthorne; fernie guarantor
--- OUTSIDE RECORDS SUMMARY | 2019-01-30 01:49 | XMS RPT_ITS | Continuity of Care Document ---
:1945 Author Organization [facility] Address [facility]7 [facility] 2 [place] [address] Phone Care Team Providers Name Role Phone CiroDionne rodriguez DOhleen Unavailable Josemanuel Camarena DO Unavailable Ken Larkin Unavailable Dr. Zander López Unavailable Jhon Clemencia Unavailable Alex Clement Unavailable Katy Gonzalez Unavailable Unavailable Kristy Hinton Unavailable Unavailable INÉS Roblero Unavailable Unavailable Rosemarie Osorio Unavailable Unavailable Toy KLINE Soniya Unavailable Market Maker, System Unavailable Unavailable Long METHODS ANALYST DATA PROCESSINGCarla L Unavailable Unavailable Unavailable Unavailable Problems Name Dates Details Abnormal glucose tolerance test (R73.09, 790.22) Comments: diet andex Status: Active Abnormal liver ultrasound (R93.2, 793.3) Status: Active Acute bronchitis due to other specified organisms (J20.8, 466.0) Status: Active Acute embolism and thrombosis of unspecified deep veins of unspecified lower extremity (I82.409, 453.40) Comments: DVT and TS3755?? 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 Annual Medicare Phyiscal WITHOUT abnormal findings (Renamed from Encounter for general adult medical examination without abnormal findings) (Z00.00, V70.9) Status: Active Asthma (J45.909, 493.90) Comments: managed by [facility] Status: Active Asthma with acute exacerbation [...] but resumes when she goes back to [facility] -- will need to chg her [...] present regimenleft fibula fracture from fall in [place] May 22 2011Lateroal malleolus fracture Status: Active [...] Name Dates Details CALCIUM 600 + D, 304-618KE-UMSW (Oral Tablet) 1 BID for 0 days [...] DO, DO, Kathleen Start : 08-Apr-2017 Active PROBIOTIC (Oral Capsule) 1 cap daily Active Tessalon Perles 100 MG Oral Capsule 1 (one) Capsule tid prn cough for 0 days Quantity: 30 {Capsule} Refills: 0 Ordered:02-Nov-2018 Nell Yeager CNP Start : 02-Nov-2018 Active VITAMIN D3, 2000UNIT (Oral Capsule) 1 (one) Capsule bid for 0 days Quantity: 60 {Capsule} Refills: 0 Ordered:03-Apr-2010 Clemencia Ferreira DO Start : 03-Apr-2010 Active Zithromax Z-Reji 250 MG Oral Tablet 1 Tablet TAD for 0 days Quantity: 1 {Package} Refills: 0 Ordered:02-Nov-2018 Nell Yeager CNP Start : 02-Nov-2018 Active ADVAIR DISKUS, 500-50MCG/DOSE (Inhalation Aerosol Powder [...] Quantity: 120 {Milliliter} Refills: 0 Ordered:10-Dec-2016 Long METHODS ANALYST DATA PROCESSINGCarla L Start : 28-Oct-2016 End : 10-Dec-2016 [...] daily for 5 days Refills: 0 Ordered:30-Jun-2010 Nell Yeager CNP Start : 22-May-2010 End : 27-May-2010 Inactive PAXIL CR, 37.5MG (Oral Tablet Extended Release 24 Hour) 1 Tablet ER 24HR QD for 0 days Quantity: 90 {Tablet} Refills: 3 Ordered:02-Jan-2014 Gloria Munguia MD Start : 02-Jan-2014 End : 02-Jan-2014 Inactive Comments:changed to citalopram PredniSONE 10 MG Oral Tablet 3 pills for Tablet 2days 2 pills for 2 days 1 pill for 4 days for 8 days Refills: 0 Ordered:15-Oct-2016 Jason Tanner DO, DO, Kathleen Start : 15-Oct-2016 End : 23-Oct-2016 Inactive Comments:with food- in am PredniSONE 20 MG Oral Tablet 2 (two) [...] days Quantity: 40 {Capsule} Refills: 0 Ordered:11-Jan-2013 Anson Debbi Start : 20-Dec-2012 End : 11-Jan-2013 Inactive [...] days Quantity: 10 {Tablet} Refills: 0 Ordered:19-Jul-2013 Fast , Clemencia A Start : 19-Jul-2013 End : 19-Jul-2013 [...] days Quantity: 6 {Ounce(s)} Refills: 0 Ordered:06-Aug-2010 Rodrigo INÉSElissa Start : 06-Aug-2010 End : 10-Nov-2010 Discontinued Comments:This order discontinued per [employer]. HYCODEN (Oral Syrup) (Free Text) 1 tsp q 6 hr prn for 0 days Quantity: 90 ml Refills: 0 Ordered:29-Nov-2012 DO, Clemencia A Start : 29-Nov-2012 End : 29-Nov-2012 Discontinued Comments:ninety NASACORT AQ, 55MCG/ACT (Nasal Aerosol) 1 (one) Aerosol Aerosol TAD for 0 days Quantity: 1 {Bottle} Refills: 0 Ordered:09-Aug-2015 Brooke Conklin Start : 25-Feb-2015 End : 09-Aug-2015 Discontinued Comments:This order discontinued per [employer]. NYSTATIN, 163189RBJZ/ML (Mouth/Throat Suspension) 5cc Suspension qid for 10 days for 10 days Quantity: 200 {Milliliter} Refills: 1 Ordered:19-Jul-2013 Otto JACQUESa A Start : 19-Jul-2013 End : 19-Jul-2013 Discontinued Comments:swish and swallow PAXIL, 20MG (Oral Tablet) 1 QD for 0 days Refills: 0 Ordered:06-Dec-2006 Janette Alexander RN End : 06-Dec-2006 Discontinued PERCOCET, 5-325MG (Oral [...] Quantity: 30 {Tablet} Refills: 0 Ordered:29-Nov-2012 Clemencia A Start : 29-Nov-2012 End : [...] Start : 21-Nov-2013 End : 21-Nov-2013 Discontinued ZYRTEC ALLERGY, 10MG (Oral Tablet) 1 [...] Discharge Instruction Result: Comments: See Note; NOTES: [facility] Medical Records Department [address] [place] [address] Discharge Instruction 10/29/18 1511 MR#: [id number] Acct: [id number] Name: ESTRELLITA HAWTHORNE BENNIEKARTHIK Mayda Rep #: [id number] : 1945 73 From: Stephany Francois DO [...] your Primary Care Provider. Call Doctors Registry ([phone]) or report to the closest Emergency Room. Call 911 if necessary. 10/29/18 1513 <Electronically signed by Stephany Francois DO> Date Stephany Francois DO Cosigner Signature (If Indicated): Date CC: Jessica Tanner DO 29-Oct-2018 Emergency Department Summary Result: Comments: See Note; NOTES: [facility] Medical Records Department [address] [place] [address] Emergency Department Summary 10/29/18 1509 MR#: [id number] Acct: [id number] Name: CHESTERSUE Ohara Rep #: [id number] : 1945 73 From: Stephany Francois DO [...] [Asthmatic bronchitis] This note was generated with [employer] dictation software. It may contain i ncorrect words, spelling, and punctuation that were not noted in review of the chart prior to signing ED Disposition - Plan for ED Patient: Chief Complaint: Cough Referrals: Jessica Tanner, [[facility] Care Provider] - What to do if you have Problems For any increased pain, shortness of breath, bleeding, nausea or vomiting, chest pain, or any unexpected problems, contact your Primary Care Prov ider. Call Doctors Registry ([phone]) or report to the closest Emergency Room. Call 911 if necessary. 10/29/18 1662 <Electronically signed by Stephany Francois DO> Date ____ Stephany Francois DO Cosigner Signature (If Indicated): Date CC: Jessica Tanner DO 29-Oct-2018 Chest PA and Lateral Result: Comments: See Note; NOTES: [facility] Imaging Services [address] [place] [address] Chest PA and Lateral MR#: [id number] Acct: [id number] Name: SUE HAWTHORNE Rep #: [id number] : 1945 F 73 From: Jay Jones MD PCP: Jessica Tanner DO Status: DEP ER Study: Chest PA and Lateral Date of Exam: 10/29/18 Exam# [id number] Ordering Dr: Stephany Francois DO STUDY: X-RAY [...] CC: Jessica Tanner DO; Stephany Francois DO Filter Press Supervisor: Signed 21-Jul-2018 Orthopedic Visit Report Result: Comments: See Note; NOTES: [facility] [address] [place] [address] OFFICE VISIT Date of Service: 07/12/18 MR#: [id number] Acct: [id number] Name: SUE HAWTHORNE Rep #: [id number] : 1945 Provider: Ginny Currie DO Age/Sex: 72/F [place] [facility] [place]: Signed Intake Intake Visit Reasons: right [...] 3 Diagnoses Right foot pain M79.671 07/21/18 7926 <Electronically signed by Ginny Currie DO> Date Ginny Currie DO Cos igner Signature: Date (if applicable) CC: 12-Jul-2018 Foot min 3 Views Result: Comments: See Note; NOTES: [facility] Imaging Services [address] [place] [address] Foot min 3 Views MR#: [id number] Acct: [id number] Name: SUE HAWTHORNE Rep #: [id number] : 1945 F 72 From: Mario Salguero MD PCP: Jessica Tanner DO Status: REG CLI Study: Foot min 3 Views Date of Exam: 07/12/18 Exam# [id number] Ordering Dr: Ginny Currie DO STUDY: X-RAY [...] CC: Ginny Currie DO; Jessica Tanner DO Filter Press Supervisor: Signed 05-Jul-2018 PT D/C Summary (1) Result: Comments: See Note; NOTES: [facility] [address] [place] [address] Fax REHABILITATION SERVICES DISCHAR GE SUMMARY MR#: [id number] Acct: [id number] Name: SUE HAWTHORNE Rep #: [id number] : 1945 72 From: Violetta Lazcano PT, Cert. MDT Referring Dr.: Josemanuel Abreu DO Status: REG RCR Insurance: [employer] A B [employer] HP - PT D/C Summary It has [...] HAS GOOD ELBOW FLEX/EXT STRENGTH AND LEFT TILT WALL SUPERVISOR STRENGTH = 45 LBS COMPARED TO 55LBS [...] please feel free to call me at [phone]. Thank you for the referral of this patient. Sincerely, Violetta Lazcano <Electronically signed by Violetta Lazcano PT, Cert. MDT> 07/05/18 1348 CC: Jessica Tanner DO; Josemanuel Abreu DO HUSSEIN Signed 20-Jun-2018 Orthopedic Visit Report Result: Comments: See Note; NOTES: [facility] [address] [place] [address] OFFICE VISIT Date of Service: 06/07/18 MR#: [id number] Acct: [id number] Name: SUE HAWTHORNE Rep #: [id number] : 1945 Provider: KRISTIN Amezquita Age/Sex: 72/F Location[place] [facility] [place] Status: Signed Intake Intake Visit Reasons: f/u [...] total replacement of left shoulder Z96.612 06/20/18 4899 <Electronically signed by Ken FOSTER> Date Ken FOSTER Cosigner Signature: Date (if applicable) CC: 06-Jun-2018 Re-Evaluation - PT (1) Result: Comments: See Note; NOTES: [facility] [address] [place] [address] Fax REEVALUATION / MEDICARE [facility] MR#: [id number] Acct: [id number] Name: SUE HAWTHORNE Rep #: [id number] : 1945 72 From: Violetta Lazcano PT, [...] do not hesitate to contact me at [phone] by phone or if you have questions or concerns regarding this new plan of care! Sincerely, Violetta Lazcano <Electronically signed by Violetta Lazcano PT, Cert. MDT> 06/06/18 1222 CC: Jessica Tanner DO; Josemanuel Abreu DO HUSSEIN Signed For Medicare only, by signing this I certify the plan of care. Physicians Signature Date 13-May-2018 Re-Evaluation - PT (1) Result: Comments: See Note; NOTES: [facility]. [address] [place] [address] Fax REEVALUATION / MEDICARE [facility] PHYSICAL THERAPY MR#: [id number] Acct: [id number] Name: SUE HAWTHORNE Rep #: [id number] : 1945 72 From: Violetta Lazcano PT, [...] do not hesitate to contact me at [phone] by phone or Fax: if you have questions or concerns regarding this new plan of care! Sincerely, Violetta Lazcano <Electronically signed by Violetta Lazcano PT, Cert. MDT> 05/13/18 1228 CC: Jessica Tanner DO; Josemanuel Abreu DO HUSSEIN Signed For Medicare only, by signing this I certify the plan of care. Physicians Signature Date 12-May-2018 Dexa Bone Density Study Result: Comments: See Note; NOTES: [facility] Imaging Services [address] [place] [address] Dexa Bone Density Study MR#: [id number] Acct: [id number] Name: SUE HAWTHORNE Rep #: [id number] : 1945 F 72 From: Yousif Hathaway MD PCP: Jessica Tanner DO Status: REG CLI Study: Dexa Bone Density Study Date of Exam: 05/12/18 Exam# [id number] Ordering Dr: Jessica Tanner DO ILA DY: [...] Yousif Hathaway MD at 15:14 EDT Tel [phone], Service support , CC: Jessica Tanner DO Filter Press Supervisor: Signed 05-May-2018 Orthopedic Visit Report Result: Comments: See Note; NOTES: [facility] [place] [address] OFFICE VISIT Date of Service: 04/25/18 MR#: [id number] Acct: [id number] Name: SUE HAWTHORNE Rep #: [id number] : 1945 Provider: Josemanuel Abreu DO Age/Sex: 72/F [place] [facility] [place] Status: Signed Intake Intake Visit Reasons: LEFT [...] 2 Views Result: Comments: See Note; NOTES: [facility] Imaging Services [address] [place] [address] Shoulder min 2 Views MR#: [id number] Acct: [id number] Name: SUE HAWTHORNE Mayda Rep #: [id number] : 1945 F 72 From: Mario Salguero MD PCP: Jessica Tanner DO Status: REG CLI Study: Shoulder min 2 Views Date of Exam: 04/25/18 Exam# [id number] Ordering Dr: Josemanuel Abreu DO STUDY: X-RAY [...] CC: Jessica Tanner DO; Josemanuel Abreu DO Filter Press Supervisor: Signed 06-Apr-2018 Orthopedic Visit Report Result: Comments: See Note; NOTES: [facility] [address] [place] [address] OFFICE VISIT Date of Service: 03/28/18 MR#: [id number] Acct: [id number] Name: SUE HAWTHORNE Rep #: [id number] : 1945 Provider: Josemanuel Abreu DO Age/Sex: 72/F Location[place] [facility] Status: Signed Intake Intake Visit Reasons: LEFT [...] - PT Result: Comments: See Note; NOTES: [facility] [address] [place] [address]. [address] [place] [address] Fax REHABILITATION SERVICES INITIAL EVALUATION MR#: [id number] Acct: [id number] Name: SUE HAWTHORNE Rep #: [id number] [...] OR CROSS BODY MOVEMENT - SEE THE [facility] REVERSE TOTAL SHOULDER ARTHROPLASTY PROTOCOL IN FOLDER. MOIST HEAT AND COLD PACK TREATMENTS NEEDED. POSTURE CORRECTION/STRENGTHENING, INSTRUCTION IN APPROPRIA TE BODY MECHANICS AND ACTIVITY MODIFICATIONS. KIMBERLI UE ROM, STRETCHING AND STRENGTHENING. HEP INSTRUCTION. - Subjective Subjective: Diagnosis: LEFT RTSA WITH SUBSCAP REPAIR. MAR 15 2018 (2 WEEKS PO). Work /Leisure: RETIRED. [employer] EVERY OTHER MONTH ONE DAY. LIKES [...] be FAXED BACK to u s at [phone] for Medicare purposes. Please let me know [...] 2 Views Result: Comments: See Note; NOTES: [facility] Imaging Services [address] [place] [address] Foot 2 Views MR#: [id number] Acct: [id number] Name: SUE HAWTHORNE Rep #: [id number] : F 72 From: Brett Hedrick DO PCP: Jessica Tanner DO Status: REG CLI Study: Foot 2 Views Date of Exam: 03/28/18 Exam# [id number] Ordering Dr: Josemanuel Abreu DO STUDY: X-RAY [...] Brett Hedrick DO at 17:03 EDT Tel [phone], Service support , CC: Jessica Tanner DO; Josemanuel Abreu DO Filter Press Supervisor: Signed 28-Mar-2018 Shoulder min 2 Views Result: Comments: See Note; NOTES: [facility] Imaging Services [address] [place] [address] Shoulder min 2 Views MR#: [id number] Acct: [id number] Name: SUE HAWTHORNE Rep #: [id number] : 1945 F 72 From: Brett Hedrick DO PCP: Jessica Tanner DO Status: REG CLI Study: Shoulder min 2 Views Date of Exam: 03/28/18 Exam# [id number] Ordering Dr: Josemanuel Abreu DO STUDY: X-RAY [...] Brett Hedrick DO at 17:02 EDT Tel [phone], Service support , CC: Jessica Tanner DO; Josemanuel Abreu DO Filter Press Supervisor: Signed 23-Mar-2018 Orthopedic Visit Report Result: Comments: See Note; NOTES: [facility] Medicine [address] [place] [address] OFFICE VISIT Date of Service: 03/11/18 MR#: [id number] Acct: [id number] Name: SUE HAWTHORNE Rep #: [id number] : 1945 Provider: Josemanuel Abreu DO Age/Sex: 72/F [place] [facility] Status: Signed Intake Intake Visit Reasons: LEFT [...] humerus with rout ine healing, subsequent encounter S42.987F Plan Assessment: Left closed 4 part proximal [...] Lead Electrocardiogram Result: Comments: See Note; NOTES: [facility] Cardiovascular Services [address] [place] [address] 12 Lead EKG 03/04/18 1116 MR#: [id number] Acct: [id number] Name: SUE HAWTHORNE Rep #: [id number] : 1945 72 From: Trey Bob MD Attending Dr: Ginny Currie DO Status: PRE [facility] [place] Ordering Dr: Ginny Currie DO Date: 03/04/18 Location: [facility] [place] Sex: F C Admitted: Test Reason : [...] Abnormal ECG Confirmed by TREY BOB ([id number]), primer expeditor and drier REA DIAS ([id number]) on 03/08/2018 4:08:06 PM Referred By: Ginny Currie Confirmed By:TREY BOB 03/08/18 1608 Date Trey Bob MD CC: Ginny Currie DO; Jessica Tanner DO Signed 02-Mar-2018 Coronals Sag Multi Obl 3-D Rec Result: Comments: See Note; NOTES: [facility] Imaging Services [address] [place] [address] Coronals Sag Multi Obl 3-D Rec MR#: [id number] Acct: [id number] Name: SUE HAWTHORNE Rep #: [id number] : 1945 F 72 From: Kapil Gonzales MD PCP: Jessica Tanner DO Status: [facility] CLI Study: Coronals Sag Multi Obl 3-D Rec Date of Exam: 03/02/18 Exam# [id number] Ordering Dr: Nicole Currie DO ADDENDUM by Kapil Gonzales MD on 03/02/[address]/Coronals Sag Multi Obl 3-D Rec IMPRESSION: Impacted, comminuted, mildly displaced, intra-articular fracture of the proxim al humerus involving the neck and tuberosities Nondisplaced fracture at the coracoid process Electronically Signed: Kapil Gonzales MD at 21:56 EDT Tel , Service support [phone], 04/25/18 2203 Date cc: Ginny Currie DO; Jessica [...] old. Fracture RADIATION DOSAGE (If Supplied By [facility]): CTDIvol = ( 28.83 ) mGy, DLP [...] the neck and tuberosities Electronically Signed: Kapil Gonzaels MD at 21:54 EDT Tel , Service support , CC: Ginny Currie DO; Jessica Tanner DO Filter Press Supervisor: Signed 02-Mar-2018 Coronals Sag Multi Obl 3-D Rec Result: Comments: See Note; NOTES: [facility] Imaging Services [address] [place] [address] Coronals Sag Multi Obl 3-D Rec MR#: [id number] Acct: [id number] Name: SUE HAWTHORNE Rep #: [id number] : 1945 F 72 From: Kapil Gonzales MD PCP: Jessica Tanner DO Status: REG CLI Study: Coronals Sag Multi Obl 3-D Rec Date of Exam: 03/02/18 Exam# [id number] Ordering Dr: Nicole Currie DO STUDY: CT [...] CC: Ginny Currie DO; Jessica Tanner DO Filter Press Supervisor: Signed 02-Mar-2018 Extremity Upper without Contra Result: Comments: See Note; NOTES: [facility] Imaging Services [address] [facility] [address] Extremity Upper without Contra MR#: [id number] Acct: [id number] Name: SUE HAWTHORNE Rep #: [id number] : 1945 F 72 From: Kapil Gonzales MD PCP: Jessica Tanner DO Status: REG CLI Study: Extremity Upper without Contra Date of Exam: 03/02/18 Exam# [id number] Ordering Dr: Nicole Currie DO ADDENDUM by Kapil Gonzales MD on 03/02/[address]/Extremity Upper without Contra IMPRESSION: Impacted, comminuted, mildly displaced, intra-articular fracture of the proxim al humerus involving the neck and tuberosities Nondisplaced fracture at the coracoid process Electronically Signed: Kapil Gonzales MD at 21:56 EDT Tel , Service support [phone], 03/02/182202 Date cc: Ginny Currie DO; Jessica Tanner DO * Signed ADDENDUM by Kapil Gonzales MD on 03/02/18 at 4182 ADDENDUM There is nondisplaced fracture at the coracoid (image 17/132 axial). The remainder of the scapula is intact. 03/02/18 215 6 Date cc: Ginny Currie DO; Jessica Tanner DO * Signed STUDY: CT LEFT UPPER EXTREMITY / HUMERUS REASON FOR EXAM: Female, 72 years old. Fracture RADIATION DOSAGE (If Supplied By [facility]): CTDIvol = ( 28.83 ) mGy, DLP [...] CC: Ginny Currie DO; Jessica Tanner DO Filter Press Supervisor: Signed 02-Mar-2018 Extremity Upper without Contra Result: Comments: See Note; NOTES: [facility] Imaging Services [address] [place] [address] Extremity Upper without Contra MR#: [id number] Acct: [id number] Name: SUE HAWTHORNE Rep #: [id number] : 1945 F 72 From: Kapil Gonzales MD PCP: Jessica Tanner DO Status: REG CLI Study: Extremity Upper without Contra Date of Exam: 03/02/18 Exam# [id number] Ordering Dr: Nicole Currie DO STUDY: CT [...] CC: Ginny Currie DO; Jessica Tanner DO Filter Press Supervisor: Signed 01-Mar-2018 Orthopedic Visit Report Result: Comments: See Note; NOTES: [facility] Orthopaedics AND Sports Medicine [address] [place] [address] OFFICE VISIT Date of Service: 02/24/18 MR#: [id number] Acct: [id number] Name: SUE HAWTHORNE Rep #: [id number] : 1945 Provider: Ginny Currie DO Age/Sex: 72/F [place] [facility] [place]: Signed Intake Intake Visit Reasons: LEFT [...] 3 Views Result: Comments: See Note; NOTES: [facility] Imaging Services [address] [place] [address] Elbow min 3 Views MR#: [id number] Acct: [id number] Name: SUE HAWTHORNE Rep #: [id number] DO B: 1945 F 72 From: Shanell Branch MD PCP: Jessica Tanner DO Status: REG CLI Study: Elbow min 3 Views Date of Exam: 02/24/18 Exam# [id number] Ordering Dr: Ginny Currie DO STUDY: X-RAY [...] CC: Ginny Currie DO; Jessica Tanner DO Filter Press Supervisor: Signed 24-Feb-2018 Shoulder min 2 Views Result: Comments: See Note; NOTES: [facility] Imaging Services [address] [place] [address] Shoulder min 2 Views MR#: [id number] Acct: [id number] Name: SUE HAWTHORNE Rep #: [id number] : 1945 F 72 From: Mario Salguero MD PCP: Jessica Tanner DO Status: REG CLI Study: Shoulder min 2 Views Date of Exam: 02/24/18 Exam# [id number] Ordering Dr: Ginny Currie DO STUDY: X-RAY [...] CC: Ginny Currie DO; Jessica Tanner DO Filter Press Supervisor: Signed 20-Feb-2018 Discharge Instruction Result: Comments: See Note; NOTES: [facility] Medical Records Department [address] [place] [address] Discharge Instruction 02/20/18 1358 MR#: [id number] Acct: [id number] Name: ESTRELLITA HAWTHORNE Rep #: [id number] : 1945 72 From: Chelle Zaragoza MD [...] your Primary Care Provider. Call Doctors Registry ([phone]) or report to the closest Emergency Room. Call 911 if necessary. 02/20/18 1401 <Electronically signed by Chelle Zaragoza MD&amp ;#62; Date Chelle Zaragoza MD Cosigner Signature (If Indicated): Date CC: Jessica Tanner DO 20-Feb-2018 Emergency Department Summary Result: Comments: See Note; NOTES: [facility] Medical Records Department [address] [place] [address] Emergency Department Summary 02/20/18 1128 MR#: [id number] Acct: [id number] Name: SUE HAWTHORNE Rep #: [id number] : 1945 72 From: Chelle Zaragoza MD [...] mechanical fall This note was generated with [employer] software. It may contain incorrect words, spelling, [...] your Primary Care Provider. Call Doctors Registry ([phone]) or report to the closest Emergency Room. Call 911 if necessary. 02/20/18 1358 <Electron ically signed by Chelle Zaragoza MD> Date Chelle Zaragoza MD Cosigner Signature (If Indicated): Date CC: Jessica Tanner DO 20-Feb-2018 Foot min 3 Views Result: Comments: See Note; NOTES: [facility] Imaging Services [address] [place] [address] Foot min 3 Views MR#: [id number] Acct: [id number] Name: SUE HAWTHORNE Rep #: [id number] : 1945 F 72 From: Rona Bowen MD PCP: Jessica Tanner DO Status: PRE ER Study: Foot min 3 Views Date of Exam: 02/20/18 Exam# [id number] Ordering Dr: Chelle Zaragoza MD STUDY: X-RAY [...] CC: Chelle Zaragoza MD; Jessica Tanner DO Filter Press Supervisor: Signed 20-Feb-2018 Shoulder min 2 Views Result: Comments: See Note; NOTES: [facility] Imaging Services [address] [place] [address] Shoulder min 2 Views MR#: [id number] Acct: [id number] Name: SUE HAWTHORNE Rep #: [id number] : 1945 F 72 From: Rona Bowen MD PCP: Jessica Tanner DO Status: PRE ER Study: Shoulder min 2 Views Date of Exam: 02/20/18 Exam# [id number] Ordering Dr: Chelle Zaragoza MD STUDY: X-RAY [...] CC: Chelle Zaragoza MD; Jessica Tanner DO Filter Press Supervisor: Signed 22-Feb-2017 Chest PA and Lateral Result: Comments: See Note; NOTES: [facility] Imaging Services [address] [place] [address] [place] [address] Chest PA and Lateral MR#: [id number] Acct: [id number] Name: SUE HAWTHORNE Rep # : [id number] : 1945 F 71 From: Naomi Strauss MD PCP: Jessica Tanner DO Status: REG CLI Study: Chest PA and Lateral Date of Exam: 02/22/17 Exam# [id number] Ordering Dr: Tamia Wood HEAD UP OPERATOR HELPER-Sussy ILA DY: X-RAY CHEST REASON FOR EXAM: [...] , CC: Tamia Wood; Jessica Tanner DO Filter Press Supervisor: Signed 12-Nov-2016 Abdomen/Pelvis WITH Contrast Result: Comments: See Note; NOTES: [facility] Imaging Services [address] [place] [address] Verd[place] 4d Abdomen/Pelvis WITH Contrast MR#: [id number] Acct: [id number] Name: SUE HAWTHORNE Rep #: [id number] : 1945 F 71 From: Brett Hedrick DO PCP: Doug Barrett Status: REG CLI Study: Abdomen/Pelvis WITH Contrast Date of Exam: 11/12/16 Exam# [id number] Ordering Dr: Doug Barrett ILA DY: CT [...] Brett Hedrick DO at 15:08 EST Tel [phone], Service support [phone], CC: Doug Barrett Filter Press Supervisor: Signed 30-Jun-2016 Wrist min 3 Views Result: Comments: See Note; NOTES: [facility] Imaging Services [address] [place] [address] [facility] 4d Wrist min 3 Views MR#: [id number] Acct: [id number] Name: SUE HAWTHORNE Mayda Rep #: [id number] : 1945 F 70 From: Omar Salazar MD PCP: Clemencia Ferreira DO Status: REG CLI Study: Wrist min 3 Views Date of Exam: 06/30/16 Exam# [id number] Ordering Dr: Ginny Currie DO STUDY: X-RA [...] CR at 14:28 EDT , Service support [phone], CC: Ginny Currie DO; Clemencia Ferreira DO Filter Press Supervisor: Signed 29-May-2016 OT D/C Summary Result: Comments: See Note; NOTES: [facility] Occupational Therapy [facility] [address] [facility] [address] [facility] [address] [address] [place] [address] Fax REHABILITATIO N SERVICES DISCHARGE SUMMARY MR#: [id number] Acct: [id number] Name: SUE HAWTHORNE Rep #: [id number] : 1945 70 From: Richelle Myers Referring [...] and tripod increased from 4# to 8# cotton converter did not change - Goals Patient Goals: [...] please fell free to call me at [phone]. Thank you for the referral of this patient. Sincerely, Richelle Myers <Electronically signed by Richelle Myers > 05/29/16 1224 CC: Clemencia Ferreira DO MK Signed 13-May-2016 OT General Evaluation Result: Comments: See Note; NOTES: [facility] Occupational Therapy [facility] [address] [facility] [address] [facility] 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 Please let me know if there are questions or concerns regarding this plan of care. Physician Signature: ____Date: <Electronically signed by Richelle Myers > 05/13/16 0759 CC: Clemencia Ferreira DO MK Signed For Medicare only, by signing this I certify the plan of care. Physicians Signature Date 08-May-2016 Abdomen WITH IV Contrast Result: Comments: See Note; NOTES: [facility] Imaging Services [address] [place] [address] Ver[place] 4d Abdomen WITH IV Contrast MR#: [id number] Acct: [id number] Name: SUE LEVIN Rep #: [id number] : 1945 F 70 From: Ba Calvillo MD PCP: Clemencia Ferreira DO Status: REG CLI Study: Abdomen WITH IV Contrast Date of Exam: 05/08/16 Exam# [id number] Ordering Dr: Clemencia Craig DO STUDY: CT [...] MD at 16:42 EDT , Service support [phone], CC: Clemencia Ferreira DO Filter Press Supervisor: Signed 05-May-2016 Chest PA and Lateral Result: Comments: See Note; NOTES: [facility] Imaging Services [address] [place] [address] [place] 4d Chest PA and Lateral MR#: [id number] Acct: [id number] Name: Sussy HAWTHORNE KARTHIK [place] Rep #: [id number] : 1945 F 70 From: Omar Salazar MD PCP: Clemencia Ferreira DO Status: REG CLI Study: Chest PA and Lateral Date of Exam: 05/05/16 Exam# [id number] Ordering Dr: Clemencia Ferreira DO STUDY: X-RAY CHEST REASON FOR EXAM: Female, 70 years old. No chest complaints. History of bilateral mastectomy for cancer. Yearly checkup TECHNIQUE: PA and lateral views of the chest. [facility] Prior chest x-ray from 07-27-12. FINDINGS: The [...] FACR at 16:55 EDT , Service support [phone], Fax RAD/Chest PA and Lateral IMPRESSION: Normal x-ray examination of the chest. Stable since last examination. Electronically Signed: Omar Salazar MD, FACR 05/05 at 16:55 EDT , Service support [phone], CC: Clemencia Ferreira DO Filter Press Supervisor: Signed 31-May-2015 Abdomen WITH and W/O Contrast Result: Comments: See Note; NOTES: [facility] Imaging Services [address] [place] [address] MRI Report MR#: [id number] Acct: [id number] Name: SUE HAWTHORNE Rep #: [id number] D OB: 1945 F 69 From: Phani Davis MD PCP: Clemencia Ferreira DO Status: REG CLI Study: Abdomen WITH and W/O Contrast Date of Exam: 05/31/15 Exam# [id number] Ordering Dr: Clemencia Ferreira DO STUDY: MRI [...] MD at 23:52 EDT , Service support [phone], Fax CC: Clemencia Ferreira DO Filter Press Supervisor: Signed 29-May-2015 Dexa Bone Density Study (HP) Result: Comments: See Note; NOTES: [facility] Imaging Services [address] [place] [address] Bone Density Report MR#: [id number] Acct: [id number] Name: SUE HAWTHORNE Rep #: [id number] : 1945 F 69 From: Yousif Hathaway MD PCP: Clemencia Ferreira DO Status: REG CLI Study: Dexa Bone Density Study () Date of Exam: 05/29/15 Exam# [id number] Ordering Dr: Clemencia Ferreira DO STUDY: DUAL [...] Yousif Hathaway MD at 15:45 EDT Tel [phone], Service support [phone], CC: Clemencia Ferreira DO Filter Press Supervisor: Signed 25-Apr-2015 Liver Result: Comments: See Note; NOTES: [facility] Imaging Services [address] [place] [address] Ultrasound Report MR#: [id number] Acct: [id number] Name: SUE HAWTHORNE Rep #: [id number] : 1945 F 69 From: Naomi Strauss MD PCP: Clemencia Ferreira DO Status: REG CLI Study: Liver Date of Exam: 04/25/15 Exam# [id number] Ordering Dr: Clemencia Ferreira DO STUDY: ABDOMINAL [...] 1 1:49 EDT Tel , Service support [phone], CC: Clemencia Ferreira DO Filter Press Supervisor: Signed 18-Apr-2015 Foot min 3 Views Result: Comments: See Note; NOTES: [facility] Imaging Services [address] [place] [address] Radiology Report MR#: [id number] Acct: [id number] Name: SUE HAWTHORNE Rep #: [id number] : 1945 F 69 From: Shanell Branch MD PCP: Clemencia Ferreira DO Status: REG CLI Study: Foot min 3 Views Date of Exam: 04/18/15 Exam# [id number] Ordering Dr: Ginny Currie DO STUDY: X-RAY [...] MD at 14:31 EDT , Service support [phone], RAD/Foot min 3 Views IMPRESSION: Stable arthrosis with calcaneal spurs. Near-anatomic alignment of the base of the fifth metatarsal fracture with no complications. Electronically Signed: Shanell Branch MD at 14:31 EDT , Service support [phone], CC: Ginny Currie DO; Clemencia Ferreira DO Filter Press Supervisor: Signed 12-Mar-2015 Foot min 3 Views Result: Comments: See Note; NOTES: [facility] Imaging Services [address] [place] [address] Radiology Report MR#: [id number] Acct: [id number] Name: SUE HAWTHORNE Rep #: [id number] : 1945 F 69 From: Shanell Branch MD PCP: Clemencia Ferreira DO Status: REG CLI Study: Foot min 3 Views Date of Exam: 03/12/15 Exam# [id number] Ordering Dr: Ginny Currie DO STUDY: X-RAY [...] 03/12 at 15:44 EDT , Service support [phone], CC: Ginny Currie DO; Clemencia Ferreira DO Filter Press Supervisor: Signed 15-Feb-2015 Emergency Department Summary Result: Comments: See Note; NOTES: [facility] Medical Records Department [address] [place] [address] Emergency Department Summary MR#: [id number] Acct: [id number] Name: Sussy HAWTHORNE Rep #: [id number] : 1945 69 From: Stephany Francois DO [...] patient also sees an orthopedic surgeon in [place]. A LLERGIES: No known drug allergies. SOCIAL [...] a postoperative shoe, given crutches, script for Yuma for pain, instructed to ice and elevate the extremity. Follow up with her orthopedic surgeon or Dr. Currie at the patient's request. DISPOSITION: Disch arged to home in stable condition. Stephany Francois DO T: NTS JOB: [id number] 02/15/15 1039 <Electronically signed by Stephany Francois DO> Date Stephany Carolinaearnestine JACQUES CC: Clemencia Jhon Date Dictated: 02/05/151752 Date Transcribed: 02/05/151752 Filter Press Supervisor: Signed 12-Feb-2015 Foot min 3 Views Result: Comments: See Note; NOTES: [facility] Imaging Services [address] [place] [address] Radiology Report MR#: [id number] Acct: [id number] Name: SUE HAWTHORNE Rep #: [id number] : 1945 F 69 From: Sohan Castaneda MD PCP: Clemencia Ferreira DO Status: REG CLI Study: Foot min 3 Views Date of Exam: 02/12/15 Exam# [id number] Ordering Dr: Ginny Currie DO STUDY: X-RAY [...] at 11:36 EDT Tel , Service support [phone], RAD/Foot min 3 Views IMPRESSION: 1. Fracture of the b ase of the fifth metatarsal bone, unchanged. 2. Degenerative changes. Electronically Signed: Sohan Castaneda MD at 11:36 EDT Tel , Service support [phone], Fax CC: Ginny Currie DO; Clemencia Ferreira DO Filter Press Supervisor: Signed 05-Feb-2015 Discharge Instruction Result: Comments: See Note; NOTES: [facility] Medical Records Department [address] [place] [address] Discharge Instruction 02/05/151749 MR#: [id number] Acct: [id number] Name: SUE HAWTHORNE Rep #: [id number] : 1945 69 From: Stephany Francois DO PCP: Clemencia Ferreira DO Status: PRE ER ED Disposition - Plan for ED Patient: Chief Complaint: Lower Extremity Injury Instruc tions: ED Fracture, Foot Prescriptions: Hydrocodone Bitart/Apap 5-325 [Yuma 5/325] 1 - 2 tablet PO Q4H [...] 3 Views Result: Comments: See Note; NOTES: [facility] Imaging Services [address] [place] [address] Radiology Report MR#: [id number] Acct: [id number] Name: SUE HAWTHORNE Rep #: [id number] : 1945 F 69 From: Yousif Hathaway MD PCP: Clemencia Ferreira DO Status: DEP ER Study: Foot min 3 Views Date of Exam: 02/05/15 Exam# [id number] Ordering Dr: Jaida, Ed P. STUDY: X-RAY [...] Yousif Hathaway MD at 8:47 EDT Tel [phone], Service support [phone], CC: Clemencia Ferreira DO; ED PHYSICIAN PROVIDER Filter Press Supervisor: Signed 07-Jun-2014 Liver Result: Comments: See Note; NOTES: [facility] Imaging Services [address] [place] [address] Ultrasound Report MR#: [id number] Acct: [id number] Name: SUE HAWTHORNE Rep #: [id number] : 1945 F 68 From: Yousif Hathaway MD PCP: Clemencia Ferreira DO Status: REG CLI Study: Liver Date of Exam: 06/07/14 Exam# [id number] Ordering Dr: Clemencia Ferreira DO STUDY: ABDOMINAL [...] Yousif Hathaway MD at 10:40 EDT Tel [phone], Service support [phone], CC: Clemencia Ferreira DO Filter Press Supervisor: Signed Immunization Name Dates Details Influenza (3 years and up) on: 02-Sep-2007 Influenza (3 years and up) on: 07-Sep-2008 Comments: Lot #:[id number] date:04/16Amount given:0.5mlRoute: IMSite given:left delGiven by: BEBA Higgins Influenza (3 years and up) on: 05-Aug-2009 Comments: Lot #:[id number] date:mount given:0.5mlRoute: IMSite given:left deltGiven by: BEBA [...] smoker Vital Signs Date Test Result Details 24-Nrk-995024:41 Temperature 96.8 f Comments: Method: Temporal Pulse [...] kg/m2 Body Surface Area Calculated 1.87 m2 7-Say-778050:55 Temperature 97.2 f Comments: Method: Temporal Pulse [...] kg/m2 Body Surface Area Calculated 1.86 m2 78-Twl-279651:12 Pulse 73 /min Comments: Pattern: Regular Respiration [...] Area Calculated 1.86 m2 :50 Comments: orthos 144/85144/44126/78 Temperature 97.2 f Pulse 79 /min Comments: [...] kg/m2 Body Surface Area Calculated 1.86 m2 19-Ufw-133416:10 Comments: Dr. Majano and had a glaucoam [...] kg/m2 Body Surface Area Calculated 1.86 m2 6-Vrb-792837:08 Pulse 70 /min Comments: Pattern: Regular Respiration [...] kg/m2 Body Surface Area Calculated 1.85 m2 :24 Pulse 78 /min Comments: Pattern: Regular Respiration [...] kg/m2 Body Surface Area Calculated 1.85 m2 8-Ljx-775493:00 Pulse 79 /min Comments: Pattern: Regular Respiration [...] Calculated 1.84 m2 :59 Comments: hearing wnlDRMireille Familiamaricarmen and had a glaucoma test done Pulse [...] 0.00 cm Results Date Description Value Details :56 HgA1C , Office (18895) HgA1C , Office 5.5 % (Normal) Range: 4.6 - 7.1 :56 Blood Glucose , Office (46699) Blood Glucose , Office 86 (Normal) C difficile Toxins A+B, Negative (Normal) Comments: PATIENT NOT FASTINGPERFORMED BY: [facility] Ymrgdd3751 [facility] [id number] Information: [id number] 5:32 EIA NTI Miscellaneous COMMNT (Normal) Comments: PATIENT NOT FASTINGPERFORMED BY: [facility] Gamtnj5412 [facility] [id number] 5:32 Comments: Test not indicated.. Written Authorization WAR (Normal) Comments: PATIENT NOT FASTINGPERFORMED BY: [facility] Qcylmq3838 [facility] [id number] 5:32 Comments: Written Authorization Received.Authorization received from Original requisition [id number] by Wednesday Dawson 23-Ozh-686848:31 OCCULT BLOOD FECES Comments: PATIENT NOT FASTINGPERFORMED BY: [facility]6370 [facility] [id number] Information: SRC:STOOL = FECAL U96259 SCREEN (36331) Occult Blood, Fecal, IA Negative (Normal) 52-Eah-338162:32 OVA & PARASITE DIR SMEAR Comments: PATIENT NOT FASTINGPERFORMED BY: [facility]6370 [facility] [id number] (20046) Result 1 NOCP (Normal) Comments: No ova, cysts, or parasites seen. Ova + Parasite Exam Final report (Normal) Comments: These results were obtained using wet preparation(s) and trichromestained smear. This test does not include testing for Cryptosporidiumparvum, Cyclospora, or Microsporidia. 30-Hjl-766644:32 LEUKOCYTE COUNT, FECAL Comments: PATIENT NOT FASTINGPERFORMED BY: [facility] Zrnvnz7573 [facility] [id number] (29559) Result 1 WCM (Abnormal) Comments: Moderate amount of white blood cells. White Blood Cells (WBC), Final report (Abnormal) Stool 95-Jvs-804140:32 WON CULTURE-STOOL (40496) Comments: PATIENT NOT FASTINGPERFORMED BY: [facility] Veuvoz7476 [facility] [id number] Information: [id number] E coli Shiga Toxin EIA Negative (Normal) Result 1 NCI (Normal) Comments: No Campylobacter species isolated. Campylobacter Culture Final report (Normal) Result 1 NSS (Normal) Comments: No Salmonella or Shigella recovered. Salmonella/Shigella Screen Final report (Normal) 3-Uuq-725402:10 Blood Glucose , Office (92978) Blood Glucose , Office 79 (Normal) 6-Shu-768953:10 HgA1C , Office (15275) HgA1C , Office 5.3 % (Normal) Range: 4.6 - 7.1 4-Phx-698221:02 CBC With Differential/Platelet Comments: PATIENT WAS FASTINGPERFORMED BY: [facility]6370 [facility] [id number] Immature Grans (Abs) 0.0 {x10E3/uL} (Normal) Range: [...] 3.77-5.28 WBC 6.3 {x10E3/uL} (Normal) Range: 3.4-10.8 5-Txk-390672:02 Comp. Metabolic Panel (14) Comments: PATIENT WAS FASTINGPERFORMED BY: [facility] Bzjjku1421 [facility] [id number] ALT (SGPT) 12 [iU]/L (Normal) Range: 0-32 [...] 8-27 Glucose 92 mg/dL (Normal) Range: 65-99 4-Npv-678590:02 Lipid Panel With LDL/HDL Comments: PATIENT WAS FASTINGPERFORMED BY: LabCoRUSTXishxo1373 [facility] [id number]; ov 6/7 Ratio LDL/HDL Ratio 1.5 {ratio} [...] 3.240 {uIU/mL} Comments: PATIENT WAS FASTINGPERFORMED BY: [facility] CenterSqgpho8880 [facility] [id number] 02 (Normal) Range: 0.450-4.500 29-Ahc-966250:54 CBC-Complete Blood Cnt No Diff Comments: [facility] W[address] [place], [address] MPV 9.2 fL (Normal) Range: 6.2-12.0 PLT [...] (Normal) Range: 4.4-11.0 :28 HgA1C , Office (39984) HgA1C , Office 5.3 % (Normal) Range: 4.6 - 7.1 9-Yjb-973279:28 Blood Glucose , Office (18873) Blood Glucose , Office 93 (Normal) 69-Wqe-249961:26 Microscopic Examination Comments: PATIENT WAS FASTINGPERFORMED BY: [employer] Ocrxox4067 [facility] [id number] Bacteria None seen (Normal) Mucus Threads Present (Normal) Crystal Type Calcium Oxalate (Normal) Crystals Present (Abnormal) Cast Type Hyaline casts (Normal) Casts Present {/lpf} (Abnormal) Epithelial Cells (non renal) None seen {/hpf} (Normal) Range: 0 - 10 RBC None seen {/hpf} (Normal) Range: 0 - 2 WBC 0-5 {/hpf} (Normal) Range: 0 - 5 :26 TSH (90699) Comments: PATIENT WAS FASTINGPERFORMED BY: [employer] Red Zebra [facility] [id number] TSH 3.380 {uIU/mL} (Normal) Range: 0.450-4.500 :26 URINALYSIS, W/ MICRO (45288) Comments: PATIENT WAS FASTINGPERFORMED BY: [employer] [facility] [id number] Microscopic Examination See below: (Normal) Comments: Microscopic was indicated and was performed. Microscopic Examination MICRON (Normal) Comments: Microscopic follows if indicated. Nitrite, Urine Negative (Normal) Urobilinogen,Semi-Qn 0.2 mg/dL (Normal) Range: 0.2-1.0 Bilirubin Negative (Normal) Occult Blood Negative (Normal) Ketones Negative (Normal) Glucose Negative (Normal) Protein Negative (Normal) WBC Esterase Negative (Normal) Appearance Clear (Normal) Urine-Color Yellow (Normal) pH 5.0 (Normal) Range: 5.0-7.5 Specific Newell 1.025 (Normal) Range: 1.005-1.030 :26 MICROALBUMIN: CREATININE RATIO Comments: PATIENT WAS FASTINGPERFORMED BY: [employer] [facility] [id number] (44412) AND (90446) Microalb/Creat Ratio 5.4 {mg/g_creat} (Normal) Range: 0.0-30.0 Creatinine, Urine 222.5 mg/dL (Normal) Microalbumin, Urine 12.1 ug/mL (Normal) 04-Wyo-609784:26 METABOLIC PANEL, COMPREHENSIVE Comments: PATIENT WAS FASTINGPERFORMED BY: Drync70 [facility] [id number] (33608) ALT (SGPT) 38 [iU]/L (Abnormal) Range: 0-32 [...] Glucose, Serum 94 mg/dL (Normal) Range: 65-99 47-Awp-012031:26 LIPID PANEL (60382) Comments: PATIENT WAS FASTINGPERFORMED BY: elmenus6370 [facility] [id number] LDL/HDL Ratio 1.6 {ratio_units} (Normal) Range: 0.0-3.2 Comments: LDL/HDL Ratio Men Women 1/2 Avg.Risk 1.0 1.5 Av g.Risk 3.6 3.2 2X Avg.Risk 6.2 5.0 3X Avg.Risk 8.0 6.1 LDL Cholesterol Calc 104 mg/dL (Abnormal) Range: 0-99 VLDL Cholesterol Sumeet 28 mg/dL (Normal) Range: 5-40 HDL Cholesterol 66 mg/dL (Normal) Triglycerides 139 mg/dL (Normal) Range: 0-149 Cholesterol, Total 198 mg/dL (Normal) Range: 100-199 27-Nie-152393:26 CBC W/AUTO DIFF WBC (51972) Comments: PATIENT WAS FASTINGPERFORMED BY: [facility]Co[facility] CenterDmcjhs4778 [facility] [id number] Immature Grans (Abs) 0.0 {x10E3/uL} (Normal) Range: [...] Range: 3.4-10.8 :22 Blood Glucose , Office (97297) Blood Glucose , Office 102 (Normal) 9-Nkg-901873:22 HgA1C , Office (12887) HgA1C , Office 5.5 % (Normal) Range: 4.6 - 7.1 15-Apr-20178:00 Pathology Report Comments: PERFORMED BY: KWCYT [facility] Cyto Cziye19136 [facility] [id number] BY: [facility] D[facility] Bxsqmju335 [address] [id number] Information: [id number] See MATER Comments: Material submitted: .RIGHT ARM [...] TRISECTED. IT ISSUBMITTED ENTIRELY IN CASSETTE(S) A./LMSLMS/LMSPathologist diomedes henao ICD-10:L44.9, D23.61CPT .298828 89-Pav-917173:27 LIPID PANEL (86752) Comments: PATIENT WAS FASTINGPERFORMED BY: [employer] Atiaoe3303 [facility] [id number] LDL/HDL Ratio 1.5 {ratio_units} (Normal) Range: 0.0-3.2 Comments: LDL/HDL Ratio Men Women 1/2 Avg.Risk 1.0 1.5 Av g.Risk 3.6 3.2 2X Avg.Risk 6.2 5.0 3X Avg.Risk 8.0 6.1 LDL Cholesterol Calc 101 mg/dL (Abnormal) Range: 0-99 VLDL Cholesterol Sumeet 18 mg/dL (Normal) Range: 5-40 HDL Cholesterol 69 mg/dL (Normal) Triglycerides 90 mg/dL (Normal) Range: 0-149 Cholesterol, Total 188 mg/dL (Normal) Range: 100-199 1-Dlf-308791:45 HgA1C , Office (42782) HgA1C , Office 5.4 % (Normal) Range: 4.6 - 7.1 :45 Blood Glucose , Office (32925) Blood Glucose , Office 86 (Normal) :0 C difficile Toxins Negative (Normal) Comments: PATIENT NOT FASTINGPERFORMED BY: [employer] Uawsrf2211 [facility] [id number] 5 A+B, EIA :05 Giardia, EIA, Ova/Parasite Comments: PATIENT NOT FASTINGPERFORMED BY: [facility] Vxolpe2552 [facility] [id number] Giardia lamblia Ag, Negative (Normal) EIA Result 1 NOCP (Normal) Comments: No ova, cysts, or parasites seen. Ova + Parasite Exam Final report Comments: These results were obtained using wet preparation(s) and trichromestained smear. This test does not include testing for Cryptosporidiumparvum, Cyclospora, or Microsporidia. (Normal) :0 Occult Blood, Fecal, Negative (Normal) Comments: PATIENT NOT FASTINGPERFORMED BY: [facility] Drmaoj5747 [facility] [id number] 5 IA 07-Jan-20171:05 Stool Culture Comments: PATIENT NOT FASTINGPERFORMED BY: [facility]6370 [facility] [id number] Information: SRC:ST SRC:ST E coli Shiga Toxin EIA Negative (Normal) Result 1 NCI (Normal) Comments: No Campylobacter species isolated. Campylobacter Culture Final report (Normal) Result 1 NSS (Normal) Comments: No Salmonella or Shigella recovered. Salmonella/Shigella Screen Final report (Normal) :05 White Blood Cells (WBC), Comments: PATIENT NOT FASTINGPERFORMED BY: [employer] Kamwuy3850 [facility] [id number] Stool Result 1 NWBC (Normal) Comments: No white blood cells seen. White Blood Cells (WBC), Final report (Normal) Stool 7-Edl-603134:00 CBC W/AUTO DIFF WBC (46230) Comments: PATIENT NOT FASTINGPERFORMED BY: [employer] Busyxx5695 [facility] [id number] Immature Grans (Abs) 0.0 {x10E3/uL} (Normal) Range: [...] 3.77-5.28 WBC 5.7 {x10E3/uL} (Normal) Range: 3.4-10.8 84-Gug-759568:54 AFP, Tumor Marker Comments: Is Patient ? [facility] (refer to report for specific site)refer to report for address and phone number AFP TUMOR 2253 9.5 ng/mL (Abnormal) Range: 0.0-8.3 Comments: [employer] ECLIA methodologyPerformed at: [employer] [id number] Director: Zander Saunders PhD, Phone: [phone] 43-Uvu-510109:28 MICROALBUMIN: CREATININE RATIO Comments: PATIENT WAS FASTINGPERFORMED BY: [employer] [id number] (20727) AND (90334) Microalb/Creat Ratio 11.8 {mg/g_creat} (Normal) Range: 0.0-30.0 Microalbumin, Urine 27.0 ug/mL (Normal) Creatinine, Urine 229.1 mg/dL (Normal) 32-Ijb-918594:28 CALCIFEDIOL (56743) Comments: PATIENT WAS FASTINGPERFORMED BY: [employer] [id number] Vitamin D, 25-Hydroxy 49.4 ng/mL (Normal) Range: 30.0-100.0 Comments: Vitamin D deficiency has been defined by the [place] [employer] and an Endocrine Society practice guideline as alevel of serum 25-OH vitamin D less than 20 ng/mL (1,2).The Endocrine Society went on to further define vitamin Dinsufficiency as a level between 21 and 29 ng/mL (2).1. IOM ([place] [employer]). 2010. Dietary reference intakes for calcium and D. [place]: The National Academies Press.2. Hannah MF, Hilda NC, Cindy FREED, et al. Evaluation, treatment, and prevention of vitamin D deficiency: an Endocrine Society clinical practice guideline. JCEM. 2010; 96():5381-30. 60-Wgj-234346:28 TSH (THYROID STIMULATING Comments: PATIENT WAS FASTINGPERFORMED BY: [employer] [facility] [id number] HORMONE) (10389) TSH 2.320 {uIU/mL} (Normal) Range: 0.450-4.500 :28 LIPID PANEL (56857) Comments: PATIENT WAS FASTINGPERFORMED BY: [employer]6370 [facility] [id number] LDL/HDL Ratio 1.2 {ratio_units} (Normal) Range: 0.0-3.2 Comments: LDL/HDL Ratio Men Women 1/2 Avg.Risk 1.0 1.5 Av g.Risk 3.6 3.2 2X Avg.Risk 6.2 5.0 3X Avg.Risk 8.0 6.1 LDL Cholesterol Calc 95 mg/dL (Normal) Range: 0-99 VLDL Cholesterol Sumeet 25 mg/dL (Normal) Range: 5-40 HDL Cholesterol 79 mg/dL (Normal) Triglycerides 126 mg/dL (Normal) Range: 0-149 Cholesterol, Total 199 mg/dL (Normal) Range: 100-199 :28 METABOLIC PANEL, COMPREHENSIVE Comments: PATIENT WAS FASTINGPERFORMED BY: [employer] Igcexq6378 [facility] [id number] (91458) ALT (SGPT) 16 [iU]/L (Normal) Range: 0-32 [...] Glucose, Serum 99 mg/dL (Normal) Range: 65-99 97-Lin-143125:28 CBC, PLATELETS & AUT DIFF Comments: PATIENT WAS FASTINGPERFORMED BY: CB [facility] Xzqjmx3890 [facility] [id number]; fu 03/11 KF (11187) Immature Grans (Abs) 0.0 {x10E3/uL} (Normal) Range: [...] (Normal) Range: 3.4-10.8 :51 HgA1C , Office (76205) HgA1C , Office 5.5 % (Normal) Range: 4.6 - 7.1 :51 Blood Glucose , Office (90509) Blood Glucose , Office 91 (Normal) 8-Qcj-372437:11 Serum Creatinine AND GFR Comments: STAT!!![facility] [address] [place], [address] EST GFR - AA 91 [...] 2253 10.2 ng/mL (Abnormal) Range: 0.0-8.3 Comments: [employer] ECLIA methodologyPerformed at: Stamped - [facility] [address] [id number] Director: Zander Saunders PhD, Phone: [phone] :[phone] CBC W/Diff, Automated Comments: [facility] [address] [place], [address] Absolute Lymph 1.56 {X10_3/ul} (Normal) [...] 4.2-5.4 WBC 5.0 K/mm3 (Normal) Range: 4.4-11.0 1-Hql-153575:05 Comprehensive Metabolic Profil Comments: Is Patient Taking Vitamins or Folic Acid Supplements? [facility] [address] [place], [place], [id number] GAP 8 (Normal) Range: 5-15 CO2 29.0 [...] 7-18 GLU 91 mg/dL (Normal) Range: 70-110 3-Czg-224755:05 Folates, (Folic Acid) Comments: Is Patient Taking Vitamins or Folic Acid Supplements? [facility] Mq[address]hi2414 [facility] [place], [place], [address] FOLATES 37.50 ng/mL (Abnormal) Range: 3.1-17.5 5-Itv-856377:05 Lipid Profile Comments: Is Patient Taking Vitamins or Folic Acid Supplements? [facility] [address] [place], [place], [address] VLDL 36 mg/dL (Normal) Range: 5-40 LDL [...] 200-240 mg/dL Borderline >240 mg/dL High Risk 2-Aew-289720:05 Thyroid Stim Hormone (TSH) Comments: Is Patient Taking Vitamins or Folic Acid Supplements? [facility] [address] [place], [id number] TSH 1.94 {uIU/mL} (Normal) Range: 0.358-3.74 8-Gkv-446948:05 Vitamin B12 668 pg/mL (Normal) Comments: [facility] [address] [place], [id number] Range: 211-911 5-Ecj-132188:05 Vitamin D,25 Hydroxy Comments: [facility] [address] [place], [address] Vitamin D 25-OH 38.6 ng/mL (Normal) Comments: Vitamin D 25(OH) Status Range Deficiency <20 ng/mL (50nmol/L) Insuffciency 20 - 30 ng/mL (50 - 75 nmol/L) Sufficiency 30 - 100 ng/mL (75 - 250 nmol/L) Toxicity >100 ng/mL (>250 nmol/L) 01-Yqr-509717:38 HgA1C , Office (86052) HgA1C , Office 5.3 % (Normal) Range: 4.6 - 7.1 74-Yaz-746392:38 Blood Glucose , Office (91149) Blood Glucose , Office 89 (Normal) :48 MICROALBUMIN: CREATININE RATIO Comments: PATIENT NOT FASTINGPERFORMED BY: [facility]CoMon[facility] Medical CenterYyjvri9949 [facility] [id number] (77208) AND (80970) Microalb/Creat Ratio 3.2 {mg/g_creat} (Normal) Range: 0.0-30.0 Microalbumin, Urine 3.8 ug/mL (Normal) Creatinine, Urine 119.1 mg/dL (Normal) :48 CBC W/AUTO DIFF WBC Comments: PATIENT NOT FASTINGPERFORMED BY: BERE LabCo Duiljx8354 [facility] [id number] Information: [id number] PT HAD COFF EE WITH CREAM (14887) Immature Grans (Abs) 0.0 {x10E3/uL} (Normal) Range: [...] 3.77-5.28 WBC 5.1 {x10E3/uL} (Normal) Range: 3.4-10.8 23-Xvu-417608:48 LIPID PANEL (64962) Comments: PATIENT NOT FASTINGPERFORMED BY: [facility]CoMon[facility] Medical CenterQbkbru5524 [facility] [id number] LDL/HDL Ratio 1.7 {ratio_units} (Normal) Range: 0.0-3.2 [...] Cholesterol, Total 236 mg/dL (Abnormal) Range: 100-199 93-Ync-449812:48 METABOLIC PANEL, COMPREHENSIVE Comments: PATIENT NOT FASTINGPERFORMED BY: LabCoMon[facility] Medical CenterVrbkcm2025 [facility] [id number] (05129) ALT (SGPT) 13 [iU]/L (Normal) Range: 0-32 [...] Serum 86 mg/dL (Normal) Range: 65-99 :48 QAWIL-CPDTIORHOBQ-OVQAY (11604) Comments: PATIENT NOT FASTINGPERFORMED BY: [employer] AnalyticsMonmouth Medical CenterSbngji5410 [facility] [id number] AFP, Serum, Tumor Marker 9.5 ng/mL (Abnormal) Range: 0.0-8.3 Comments: Izaiah ECLIA methodology :11 HgA1C , Office (35021) HgA1C , Office 5.4 % (Normal) Range: 4.6 - 7.1 :11 HgA1C , Office (43250) HgA1C , Office 5.5 % (Normal) Range: 4.6 - 7.1 :37 LIPID PANEL (51273) Comments: PATIENT WAS FASTINGPERFORMED BY: [employer] AnalyticsMonmouth Medical CenterKekcbt9952 [facility] [id number] LDL/HDL Ratio 1.8 {ratio_units} (Normal) Range: 0.0-3.2 [...] METABOLIC PANEL, Comments: PATIENT WAS FASTINGPERFORMED BY: [employer] AnalyticsMonmouth Medical CenterKumgjd0428 [facility] [id number] Information: [id number] COMPREHENSIVE (21440) ALT (SGPT) 15 [iU]/L (Normal) Range: 0-32 [...] Glucose, Serum 91 mg/dL (Normal) Range: 65-99 90-Gku-541334:37 ZPMHF-SHEEDYRXDXH-YEKVA (59612) Comments: PATIENT WAS FASTINGPERFORMED BY: Drync70 [facility]As[facility] [id number] AFP, Serum, Tumor Marker 10.1 ng/mL (Abnormal) Range: 0.0-8.3 Comments: Izaiah ECLIA methodology :54 DBWME-JGQYUBBVTEW-RAZMM (23214) Comments: 2 months; PATIENT NOT FASTINGPERFORMED BY: Drync70 [facility]rnchAs[facility]ville [facility] Hospital [id number] Information: [id number] AFP, Serum, Tumor Marker 10.3 ng/mL (Abnormal) Range: 0.0-8.3 Comments: Izaiah ECLIA methodology 7-Igk-253960:04 HgA1C , Office (61451) HgA1C , Office 5.9 % (Normal) Range: 4.6 - 7.1 60-Xnt-50667:00 Serum Creatinine AND GFR Comments: Test performed at:[facility] [address] [place], [place] [address] EST GFR - AA 81 mL/min (Normal) EST GFR 67 mL/min (Normal) CREAT,SERUM 0.89 mg/dL (Normal) Range: 0.55-1.20 Comments: Please note revised CREATININE reference range jelzatrzg96/22/2015. 59-Xvc-565425:19 CBC with auto diff Comments: PATIENT WAS FASTINGPERFORMED BY: LabCoMon[facility] Medical CenterHtrzsg9812 [facility] [id number] Information: [id number] (82899) Immature Grans (Abs) 0.0 {x10E3/uL} (Normal) Range: [...] 3.77-5.28 WBC 5.5 {x10E3/uL} (Normal) Range: 3.4-10.8 :19 MICROALBUMIN: CREATININE RATIO Comments: PATIENT WAS FASTINGPERFORMED BY: [facility] AnalyticsMonmouth Medical CenterSkioux3571 [facility] [id number] (73854) AND (51801) Microalb/Creat Ratio <3.5 {mg/g_creat} (Normal) Range: 0.0-30.0 Microalbumin, Urine <3.0 ug/mL (Normal) Range: 0.0-17.0 Creatinine, Urine 85.8 mg/dL (Normal) Range: 15.0-278.0 :19 METABOLIC PANEL, COMPREHENSIVE Comments: PATIENT WAS FASTINGPERFORMED BY: [employer] AnalyticsMonmouth Medical CenterRcuxnb1338 [facility] [id number] (72318) ALT (SGPT) 11 [iU]/L (Normal) Range: 0-32 [...] Glucose, Serum 94 mg/dL (Normal) Range: 65-99 02-Trp-222082:19 LIPID PANEL (59971) Comments: PATIENT WAS FASTINGPERFORMED BY: [employer] AnalyticsMonmouth Medical CenterJllmav7682 [facility] [id number] LDL/HDL Ratio 1.8 {ratio_units} (Normal) Range: 0.0-3.2 [...] Cholesterol, Total 230 mg/dL (Abnormal) Range: 100-199 19-Kpu-367292:19 FGCHR-ZHXSLAIVVXJ-WAAJG (11002) Comments: PATIENT WAS FASTINGPERFORMED BY: [employer] AnalyticsMonmouth Medical CenterFexzux[address] [place] [address] [id number] AFP, Serum, Tumor Marker 9.4 ng/mL (Abnormal) Range: 0.0-8.3 Comments: Izaiah ECLIA methodology :33 HgA1C , Office (71709) HgA1C , Office 5.9 % (Normal) Range: 4.6 - 7.1 AFP, Serum, Tumor 8.6 ng/mL (Abnormal) Comments: PATIENT WAS FASTINGPERFORMED BY: [employer] [id number] :02 Marker Range: 0.0-8.3 Comments: Izaiah ECLIA methodology :02 CBC With Differential/Platelet Comments: PATIENT WAS FASTINGPERFORMED BY: [facility]Select [facility]int6370 [facility] [id number] Information: [id number] Immature Grans (Abs) 0.0 {x10E3/uL} (Normal) Range: [...] 3.77-5.28 WBC 5.1 {x10E3/uL} (Normal) Range: 3.4-10.8 13-Yyt-811005:02 Comp. Metabolic Panel (14) Comments: PATIENT WAS FASTINGPERFORMED BY: TastemakerSelect Specialty Hospital-Flint6370 [facility] [id number] ALT (SGPT) 16 [iU]/L (Normal) Range: 0-32 [...] Glucose, Serum 84 mg/dL (Normal) Range: 65-99 40-Kfw-207310:02 Lipid Panel With LDL/HDL Comments: PATIENT WAS FASTINGPERFORMED BY: LabCoMonmouth Medical CenterZyzfbt0734 [facility] [id number] Ratio LDL/HDL Ratio 1.7 {ratio_units} Range: 0.0-3.2 [...] {uIU/mL} (Normal) Comments: PATIENT WAS FASTINGPERFORMED BY: Attainia Vuwkmm6052 [facility] [id number] 13:02 Range: 0.450-4.500 14-Ygk-94517:47 HgA1C , Office (52780) HgA1C , Office 5.6 % (Normal) Range: 4.6 - 7.1 4-Fih-028261:12 XJYCF-FJOHMAZYMJI-DCEKA (13419) Comments: PATIENT NOT FASTINGPERFORMED BY: Attainia Bxgvay2249 [facility] [id number] AFP, Serum, Tumor Marker 9.2 ng/mL (Abnormal) Range: 0.0-8.3 Comments: Izaiah ECLIA methodology 0-Yjs-395357:12 CBC W/AUTO DIFF WBC Comments: PATIENT NOT FASTINGPERFORMED BY: [employer] Xtyuhj1851 [facility] [id number] Information: [id number] (26013) Immature Grans (Abs) 0.0 {x10E3/uL} (Normal) Range: [...] 3.77-5.28 WBC 7.3 {x10E3/uL} (Normal) Range: 3.4-10.8 2-Ipt-783548:12 METABOLIC PANEL, COMPREHENSIVE Comments: PATIENT NOT FASTINGPERFORMED BY: LabCoMonmouth Medical CenterHtggvf2791 [facility] [id number] (75756) ALT (SGPT) 15 [iU]/L (Normal) Range: 0-32 [...] Glucose, Serum 84 mg/dL (Normal) Range: 65-99 4-Tpd-981510:12 LIPID PANEL (94906) Comments: PATIENT NOT FASTINGPERFORMED BY: LinksifyAt[facility] Health SouthPark [id number] LDL/HDL Ratio 1.3 {ratio_units} (Normal) Range: 0.0-3.2 [...] Cholesterol, Total 199 mg/dL (Normal) Range: 100-199 99-Zgo-968241:05 HgA1C , Office (11840) HgA1C , Office 5.8 % (Normal) Range: 4.6 - 7.1 2-Kzl-496227:21 GVHON-QJWAFEPFLPX-PXDAF (38643) Comments: get us of liver; PATIENT WAS FASTINGPERFORMED BY: elmenus6370 SalgueroU-Subs DeliAsheville Specialty Hospital [id number] AFP, Serum, Tumor Marker 8.6 ng/mL (Abnormal) Range: 0.0-8.3 Comments: Izaiah ECLIA methodology 1-Nbb-668668:21 MICROALBUMIN: CREATININE RATIO Comments: PATIENT WAS FASTINGPERFORMED BY: Hybio PharmaceuticalSelect Specialty Hospital-Flint6370 [facility] [id number] (54255) AND (68776) Microalb/Creat Ratio 7.2 {mg/g_creat} (Normal) Range: 0.0-30.0 Microalbumin, Urine 12.4 ug/mL (Normal) Range: 0.0-17.0 Creatinine, Urine 173.3 mg/dL (Normal) Range: 15.0-278.0 6-Fom-545518:21 LIPID PANEL (01209) Comments: PATIENT WAS FASTINGPERFORMED BY: [employer] AnalyticsMonmouth Medical CenterXvxzoa2063 [facility] [id number] LDL/HDL Ratio 1.5 {ratio_units} (Normal) Range: 0.0-3.2 [...] Cholesterol, Total 217 mg/dL (Abnormal) Range: 100-199 7-Fgx-704192:21 CBC WITH MANUAL DIFF Comments: PATIENT WAS FASTINGPERFORMED BY: [facility]6370 [facility] [id number] Information: [id number]; non-emergent till apt this week (36167) Immature Grans (Abs) 0.0 {x10E3/uL} (Normal) Range: [...] 3.77-5.28 WBC 13.8 {x10E3/uL} (Abnormal) Range: 3.4-10.8 5-Srt-204284:21 METABOLIC PANEL, COMPREHENSIVE Comments: PATIENT WAS FASTINGPERFORMED BY: LabCoMonmouth Medical CenterHlbexx9623 [facility] [id number] (68429) ALT (SGPT) 13 [iU]/L (Normal) Range: 0-32 [...] Glucose, Serum 84 mg/dL (Normal) Range: 65-99 25-Wqj-738802:32 HgA1C , Office (00133) HgA1C , Office 5.8 % (Normal) Range: 4.6 - 7.1 7-Ttn-094459:18 Vitamin D Hydroxy (23472) Comments: PATIENT WAS FASTINGPERFORMED BY: ValeritasAtrium Health SouthPark [id number] Vitamin D, 25-Hydroxy 54.3 ng/mL (Normal) Range: 30.0-100.0 Comments: Vitamin D deficiency has been defined by the [place] [facility] Health[facility] and an Endocrine Society practice guideline as alevel of serum 25-OH vitamin D less than 20 ng/mL (1,2).The Endocrine Society went on to further define vitamin Dinsufficiency as a level between 21 and 29 ng/mL (2).1. IOM ([place] [employer]). 2010. Dietary reference intakes for calcium and D. [place]: The National Academies Press.2. Hannah MF, Hilda NC, Cindy FREED, et al. Evaluation, treatment, and prevention of vitamin D deficiency: an Endocrine Society clinical practice guideline. JCEM. 2010; 96(7):1911-30. 3-Evl-079253:18 IRON (84800) Comments: PATIENT WAS FASTINGPERFORMED BY: LinksifyAtrium Health SouthPark [id number] Iron, Serum 86 ug/dL (Normal) Range: 35-155 6-Kgn-555613:18 CBC WITH MANUAL DIFF Comments: PATIENT WAS FASTINGPERFORMED BY: Scalixox RoadDublin [place] [id number] Information: [id number] (68602) Immature Grans (Abs) 0.0 {x10E3/uL} (Normal) Range: [...] 3.77-5.28 WBC 6.1 {x10E3/uL} (Normal) Range: 3.4-10.8 0-Nlq-674522:18 BZGJN-JRCKDMAZAEG-USGKI (68516) Comments: PATIENT WAS FASTINGPERFORMED BY: [facility] Zkxdnc2163 [facility] [id number] AFP, Serum, Tumor Marker 9.6 ng/mL (Abnormal) Range: 0.0-8.3 Comments: Izaiah ECLIA methodology 0-Qvm-420163:18 PTT (Activated Partial Comments: PATIENT WAS FASTINGPERFORMED BY: [facility]6370 [facility] [id number] Thromboplastin Time) (65186) aPTT 27 {sec} (Normal) Range: 24-33 Comments: This test has not been validated for monitoring unfractionated heparintherapy. aPTT-based therapeutic ranges for unfractionated heparintherapy have not been established. For general guidelines onHeparin monitoring, refer to the [facility] Directory of Services. 3-Eon-128397:18 PT (Prothrobim Time) (59940) Comments: PATIENT WAS FASTINGPERFORMED BY: [facility]6370 [facility] [id number] Prothrombin Time 10.3 {sec} (Normal) Range: 9.1-12.0 INR 1.0 (Normal) Range: 0.8-1.2 Comments: Reference interval is for non-anticoagulated patients. . Suggested INR therapeutic range for Vitamin K anta gonist therapy: Standard Dose (moderate intensity therapeutic range): 2.0 - 3.0 Higher intensity therapeutic range 2.5 - 3.5 7-Kek-901213:18 METABOLIC PANEL, COMPREHENSIVE Comments: PATIENT WAS FASTINGPERFORMED BY: [facility]6370 [facility] [id number] (87622) ALT (SGPT) 21 [iU]/L (Normal) Range: 0-32 [...] mg/dL (Normal) Range: 65-99 :18 LIPID PANEL (74013) Comments: PATIENT WAS FASTINGPERFORMED BY: Drync[address] [facility] [id number]; will review at 05/25 appt LDL/HDL Ratio [...] (Normal) Range: 100-199 :30 HgA1C , Office (96845) HgA1C , Office 5.7 % (Normal) Range: 4.6 - 7.1 :37 LIPID PANEL (15913) Comments: PATIENT WAS FASTINGPERFORMED BY: AttainiaMonmouth Medical CenterQanvlh5654 [facility] [id number] Information: [id number] LDL/HDL Ratio 1.2 {ratio_units} (Normal) Range: 0.0-3.2 LDL Cholesterol Calc 86 mg/dL (Normal) Range: 0-99 VLDL Cholesterol Suemet 20 mg/dL (Normal) Range: 5-40 HDL Cholesterol 73 mg/dL (Normal) Comments: According to ATP-III Guidelines, HDL-C >59 mg/dL is considered anegative risk factor for CHD. Triglycerides 99 mg/dL (Normal) Range: 0-149 Cholesterol, Total 179 mg/dL (Normal) Range: 100-199 60-Sxc-270861:47 Vitamin D Hydroxy (03184) Comments: PATIENT NOT FASTINGPERFORMED BY: LabSelect [facility]int6370 [facility] [id number] Vitamin D, 25-Hydroxy 34.7 ng/mL (Normal) Range: 30.0-100.0 Comments: Vitamin D deficiency has been defined by the [place] of[place]icine and an Endocrine Society practice guideline as alevel of serum 25-OH vitamin D less than 20 ng/mL (1,2).The Endocrine Society went on to further define vitamin Dinsufficiency as a level between 21 and 29 ng/mL (2).1. IOM ([place] [employer]). 2010. Dietary reference intakes for calcium and D. [place]: The National Academies Press.2. Hannah MF, Hilda SONG, Cindy FREED, et al. Evaluation, treatment, and prevention of vitamin D deficiency: an Endocrine Society clinical practice guideline. JCEM. 2010; 96(7):1911-30. 53-Kft-533225:47 CBC WITH MANUAL DIFF Comments: PATIENT NOT FASTINGPERFORMED BY: LabCoMonmouth Medical CenterYiyskb2655 [facility] [id number] Information: [id number] (07347) Immature Grans (Abs) 0.0 {x10E3/uL} (Normal) Range: [...] 3.77-5.28 WBC 5.9 {x10E3/uL} (Normal) Range: 3.4-10.8 28-Lix-262237:47 METABOLIC PANEL, COMPREHENSIVE Comments: PATIENT NOT FASTINGPERFORMED BY: [facility] Cleeba9875 [facility] [id number] (70808) ALT (SGPT) 37 [iU]/L (Abnormal) Range: 0-32 [...] Glucose, Serum 99 mg/dL (Normal) Range: 65-99 89-Ntt-543294:47 USPXC-GNDSHARDONH-TXWBB (66029) Comments: PATIENT NOT FASTINGPERFORMED BY: [address] [id number] AFP, Serum, Tumor Marker 7.6 ng/mL (Normal) Range: 0.0-8.3 Comments: Izaiah ECLIA methodology :47 PTT (Activated Partial Comments: PATIENT NOT FASTINGPERFORMED BY: [place] 6688770 [facility] [id number] Thromboplastin Time) (36633) aPTT 25 {sec} (Normal) Range: 24-33 Comments: This test has not been validated for monitoring unfractionated heparintherapy. aPTT-based therapeutic ranges for unfractionated heparintherapy have not been established. For general guidelines onHeparin monitoring, refer to the [facility] Directory of Services. :47 PT (Prothrobim Time) (45477) Comments: PATIENT NOT FASTINGPERFORMED BY: [facility]6370 [facility] [id number] INR 1.0 (Normal) Range: 0.8-1.2 Comments: Reference interval is for non-anticoagulated patients. . Suggested INR therapeutic range for Vitamin K anta gonist therapy: Standard Dose (moderate intensity therapeutic range): 2.0 - 3.0 Higher intensity therapeutic range 2.5 - 3.5 Prothrombin Time 10.4 {sec} (Normal) Range: 9.1-12.0 :47 FOLIC ACID SERUM (68097) Comments: PATIENT NOT FASTINGPERFORMED BY: [facility]6370 [facility] [id number] Folate (Folic Acid), Serum >19.9 ng/mL (Normal) Comments: A serum folate concentration of less than 3.1 ng/mL isconsidered to represent clinical deficiency. 87-Bfo-044275:47 VITAMIN B-12 (CYANOCOBALAMIN) Comments: PATIENT NOT FASTINGPERFORMED BY: [facility]6370 [facility] [id number] (45893) Vitamin B12 801 pg/mL (Normal) Range: 211-946 31-Rbo-390084:47 RETICULOCYTE COUNT MANUL Comments: PATIENT NOT FASTINGPERFORMED BY: [place] 6688770 [facility] [id number] (88615) Reticulocyte Count 0.9 % (Normal) Range: 0.6-2.6 58-Iav-871013:47 LDH (LD) (LACTATE DEHYDROGENASE) Comments: PATIENT NOT FASTINGPERFORMED BY: [facility]6370 [facility] [id number] (22614) LDH 203 [iU]/L (Normal) Range: 0-214 73-Uwx-819441:47 IRON BINDING CAPACITY (TIBC) Comments: PATIENT NOT FASTINGPERFORMED BY: [facility]6370 [facility] [id number] (06396) Iron Saturation 13 % (Abnormal) Range: 15-55 Iron Bind.Cap.(TIBC) 391 ug/dL (Normal) Range: 250-450 Iron, Serum 51 ug/dL (Normal) Range: 35-155 UIBC 340 ug/dL (Normal) Range: 150-375 83-Wio-715024:47 FERRITIN (71266) Comments: PATIENT NOT FASTINGPERFORMED BY: [facility]6370 [facility] [id number] Ferritin, Serum 7 ng/mL (Abnormal) Range: 15-150 88-Zew-781937:06 CULTURE, SPUTUM (22142) Comments: PATIENT NOT FASTINGPERFORMED BY: [facility]6370 [facility] [id number] Information: SRC: SPUTUM Result 1 RRF (Normal) Comments: Routine respiratory trip Lower Respiratory Culture Final report (Normal) 9-Dmj-253772:55 Protein Electro, Random Urine Comments: PATIENT WAS FASTINGPERFORMED BY: [employer] Micejo3867 [facility] [id number] Please note: SPRCS (Normal) Comments: Protein electrophoresis scan will follow via computer, mail, orcourier delivery. Gamma Globulin, U 27.2 % (Normal) M-Roque, % Not Observed % (Normal) Beta Globulin, U 31.3 % (Normal) Pvvsu-7-Guxcgkiy, U 3.2 % (Normal) Gqyjt-6-Atrxeppo, U 15.8 % (Normal) Albumin, U 22.6 % (Normal) Protein,Total,Urine 13.6 mg/dL (Normal) Range: 0.0-15.0 9-Uhz-038658:55 Protein Electro.,S Comments: PATIENT WAS FASTINGPERFORMED BY: Attainia Red Zebra [facility] [id number] A/G Ratio 1.8 (Normal) Range: 0.7-2.0 Please note: SPRCS (Normal) Comments: Protein electrophoresis scan will follow via computer, mail, orcourier delivery. Gamma Globulin 0.6 g/dL (Normal) Range: 0.5-1.6 Globulin, Total 2.4 g/dL (Normal) Range: 2.0-4.5 M-Roque Not Observed g/dL (Normal) Hzdxr-1-Rqekhmdt 0.2 g/dL (Normal) Range: 0.1-0.4 Ovqye-6-Poyawrnm 0.6 g/dL (Normal) Range: 0.4-1.2 Beta Globulin 1.0 g/dL (Normal) Range: 0.6-1.3 Albumin 4.2 g/dL (Normal) Range: 3.2-5.6 2-Gjx-226465:55 TSH (66089) Comments: PATIENT WAS FASTINGPERFORMED BY: Attainia Edyzfg8766 [facility] [id number] TSH 2.610 {uIU/mL} (Normal) Range: 0.450-4.500 7-Lho-838059:55 CBC WITH MANUAL DIFF (66686) Comments: PATIENT WAS FASTINGPERFORMED BY: Revolution AnalyticsMonmouth Medical CenterPfubhg2103 [facility] [id number] Immature Grans (Abs) 0.0 {x10E3/uL} (Normal) Range: [...] 3.77-5.28 WBC 5.2 {x10E3/uL} (Normal) Range: 3.4-10.8 5-Abu-104076:55 METABOLIC PANEL, COMPREHENSIVE Comments: PATIENT WAS FASTINGPERFORMED BY: LabCoMonmouth Medical CenterPebngw2300 [facility] [id number] (97425) ALT (SGPT) 36 [iU]/L (Abnormal) Range: 0-32 [...] Glucose, Serum 88 mg/dL (Normal) Range: 65-99 7-Fof-744414:55 LIPID PANEL (11497) Comments: PATIENT WAS FASTINGPERFORMED BY: LabCoMonmouth Medical CenterIfnvpt9436 [facility] [id number] LDL/HDL Ratio 1.7 {ratio_units} (Normal) Range: 0.0-3.2 LDL Cholesterol Calc 138 mg/dL (Abnormal) Range: 0-99 VLDL Cholesterol Sumeet 19 mg/dL (Normal) Range: 5-40 Cholesterol, Total 240 mg/dL (Abnormal) Range: 100-199 HDL Cholesterol 83 mg/dL (Normal) Comments: According to ATP-III Guidelines, HDL-C >59 mg/dL is considered anegative risk factor for CHD. Triglycerides 97 mg/dL (Normal) Range: 0-149 [id number] HgA1C , Office (59048) HgA1C , Office 5.6 % (Normal) Range: 4.6 - 7.1 :35 CALCIFEDIOL (18420) Comments: PATIENT WAS FASTINGPERFORMED BY: [id number] [id number] Vitamin D, 25-Hydroxy 33.8 ng/mL (Normal) Range: 30.0-100.0 Comments: Vitamin D deficiency has been defined by the [place] [facility] and an Endocrine Society practice guideline as alevel of serum 25-OH vitamin D less than 20 ng/mL (1,2).The Endocrine Society went on to further define vitamin Dinsufficiency as a level between 21 and 29 ng/mL (2).1. IOM ([place] of Medicine). 2010. Dietary reference intakes for calcium and D. [place]: The National Academies Press.2. Hannah MF, Hilda SONG, Cindy FREED, et al. Evaluation, treatment, and prevention of vitamin D deficiency: an Endocrine Society clinical practice guideline. JCEM. 2010; 96(7):1911-30. :35 CBC with manual diff Comments: PATIENT WAS FASTINGPERFORMED BY: LabCoMonmouth Medical CenterPntqbi9382 [facility] [id number] Information: [id number] (95253) Immature Grans (Abs) 0.0 {x10E3/uL} (Normal) Range: [...] of these values in the reference population. 5-Fns-365319:35 Lipid Panel (46703) Comments: PATIENT WAS FASTINGPERFORMED BY: [facility]6370 [facility] [id number] LDL/HDL Ratio 1.3 {ratio_units} (Normal) Range: 0.0-3.2 LDL Cholesterol Calc 110 mg/dL (Abnormal) Range: 0-99 HDL Cholesterol 85 mg/dL (Normal) Comments: According to ATP-III Guidelines, HDL-C >59 mg/dL is considered anegative risk factor for CHD. VLDL Cholesterol Sumeet 23 mg/dL (Normal) Range: 5-40 Triglycerides 115 mg/dL (Normal) Range: 0-149 Cholesterol, Total 218 mg/dL (Abnormal) Range: 100-199 1-Iek-330291:35 Metabolic Panel, Comprehensive Comments: PATIENT WAS FASTINGPERFORMED BY: [employer] Gzrksa2045 [place] [facility] HospitalSpot Mobile InternationalAtrium Health SouthPark [id number] (63212) ALT (SGPT) 26 [iU]/L (Normal) Range: 0-32 [...] Glucose, Serum 95 mg/dL (Normal) Range: 65-99 67-Mom-471408:17 Protein Electro, Random Urine Comments: PATIENT NOT FASTINGPERFORMED BY: [employer] Podqox8314 [facility] [id number] Gamma Globulin, U 33.0 % (Normal) M-Roque, % Not Observed % (Normal) Please note: SPRCS (Normal) Comments: Protein electrophoresis scan will follow via computer, mail, orcourier delivery. Ljqpz-3-Sfniwfxf, U 12.2 % (Normal) Beta Globulin, U 27.5 % (Normal) Wjpbx-6-Tdevlsiu, U 2.3 % (Normal) Albumin, U 25.0 % (Normal) Protein,Total,Urine 4.6 mg/dL (Normal) Range: 0.0-15.0 40-Ztm-594299:17 Protein Electro.,S Comments: PATIENT NOT FASTINGPERFORMED BY: Attainia Ooaosb7978 [place] [id number] A/G Ratio 1.5 (Normal) Range: 0.7-2.0 Please note: SPRCS (Normal) Comments: Protein electrophoresis scan will follow via computer, mail, orcourier delivery. Globulin, Total 2.6 g/dL (Normal) Range: 2.0-4.5 M-Roque Not Observed g/dL (Normal) Gamma Globulin 0.7 g/dL (Normal) Range: 0.5-1.6 Psutk-0-Zknqfpac 0.7 g/dL (Normal) Range: 0.4-1.2 Beta Globulin 1.0 g/dL (Normal) Range: 0.6-1.3 Ctdnu-8-Ffovkcro 0.2 g/dL (Normal) Range: 0.1-0.4 Albumin 4.0 g/dL (Normal) Range: 3.2-5.6 Protein, Total, Serum 6.6 g/dL (Normal) Range: 6.0-8.5 46-Ilo-587091:17 PHOSPHORUS (57271) Comments: PATIENT NOT FASTINGPERFORMED BY: Attainia Gkzusq1426 [address] [employer] [place] [place] [id number] Phosphorus, Serum 3.6 mg/dL (Normal) Range: 2.5-4.5 90-Sxi-511011:17 PARATHORMONE (81599) Comments: PATIENT NOT FASTINGPERFORMED BY: LabCo Olwryi7891 [address] [employer] [place] [employer] [place] [id number] PTH, Intact 17 pg/mL (Normal) Range: 15-65 81-Boj-950195:17 TSH (27204) Comments: PATIENT NOT FASTINGPERFORMED BY: LabCo Mstity8623 [address] [employer] [employer] [place] [id number] TSH 2.130 {uIU/mL} (Normal) Range: 0.450-4.500 18-Njr-573217:17 VITAMIN B-12 (CYANOCOBALAMIN) Comments: PATIENT NOT FASTINGPERFORMED BY: [facility]Select [facility]int6[address] [place] [id number] (72039) Vitamin B12 886 pg/mL (Normal) Range: 211-946 11-Vdj-975619:54 CHEST WITH CONTRAST Radiology Report See Note [...] Hathaway M.D.March 22, 2013 at 1:20:07 PM [id number] Signed GP/GP If you are the referring physician and would like to consult with theradiologist who provided this interpretation, please contact Leslye Escobedo at [phone]. If this radiologist is unavailable, steph hensley be directed to another radiologist to assist. If you are a patient with a question regarding this report, pleasecontactyour referring physician directly. Professional Interpretation Provided By: [employer], Phone , These documents contain legally protected [...] documents. Dictated on 03/21/13 1403 by Rivas ADHIKARI,GilrieleTranscribed on 03/22/13 1322 by ITS IMPORTSign by Evelia avendaño MD,Yousif on 03/22/13 1323 Sign by: Yousif Hathaway MD 8-Eib-721428:31 Calcium, 24Hr Urine Comments: PERFORMED BY: Crestocklin6370 [facility] [id number] Information: 03/07@220AM 03/08@220AM Calcium, Urine 24hr 173.8 {mg/24_hr} (Normal) Range: 100.0-300.0 Calcium, Urine 15.8 mg/dL (Normal) 5-Weo-686246:23 CULTURE, SPUTUM (37280) Comments: PATIENT NOT FASTINGPERFORMED BY: [facility] AnalyticsMonmouth Medical CenterTterka1869 [facility] [id number] Information: SRC:[facility] [id number] Result 1 RRF (Normal) Comments: Routine respiratory trip Lower Respiratory Culture Final report (Normal) 16-Viu-911816:26 DEXA BONE DENSITY STUDY (HP) Radiology Report [...] Hathaway M.D.January 21, 2013 at 8:47:25 AM [id number] Signed GP/GP If you are the referring physic elliott and would like to consult with theradiologist who provided this interpretation, please contact Leslye Escobedo at [phone]. If this radiologist is unavailable, youwill be directed to ano ther radiologist to assist. If you are a patient with a question regarding this report, pleasecontactyour referring physician directly. Professional Interpretation Provided By: [facility], Phone , These documents contain legally protected and confidential healthinformation intended only for the use of the individual or entity namedabove. If you are not the intended recip ient, you are hereby notifiedthatany disclosure, copying, distribution, or other use of these documents isstrictly prohibited. If you have received this information in error,pleasenotify the sender imme diately and arrange for the return or destructionofthese documents. Dictated on 01/18/13 1126 by Rivas ADHIKARI,Amandaranscribed on 01/21/13 0849 by ITS IMPORTSign by Rivas ADHIKARI,Yousif on 01/21 0850 Sign by: Yousif Hathaway MD 12-Jan-2013 C difficile Toxins Positive Comments: PERFORMED BY: LinksifyAt[facility] Health SouthPark [id number] Information: SRC:ST 13:41 A+B, EIA (Abnormal) 28-Sdy-376847:38 Urinalysis, Office (90834) UA - BILIRUBIN Negative (Normal) UA - BLOOD Negative (Normal) UA - GLUCOSE Negative (Normal) UA - KETONES Negative mg/dL (Normal) UA - LEUKOCYTE ESTERASE Small (Normal) UA - NITRITE Negative (Normal) UA - PH 8.0 (Normal) UA - PROTEIN Negative mg/dL (Normal) UA - SPECIFIC GRAVITY 1.015 (Normal) URINE UROBILINGN OSMAR Normal mg/dL TIMED (Normal) 26-Atg-855648: C difficile Toxins A+B, Positive (Abnormal) Comments: PERFORMED BY: LinksifyAt[facility] SouthPark [id number] Information: SRC:ST 56 EIA 47-Jze-68684:0 CDIF See Note (Normal) Comments: COPY OF REPORT SENT TO INFECTION CONTROL 12/06/12 1432SNIKOLAS.RESULTS CALLED TO OFFICE TO Sussy.IMONGDT09/29/13 LIZBETH MENEZES.REPORT READ BACK BY SAME . [...] TO INFECTION CONTROL 12/06/12 1432SOSNIKOLAS.RESULTS CALLED TO OFFICE TO Sussy.SHYGMFS33/29/13 1513 LIZBETH MATA.REPORT READ BACK BY SAME . SHIGA See [...] Cyclospora, or Microspo ridia. [facility] ORIGINAL REPORT ON FILE IN LAB CONTAINS ADDITIONAL TEST SITE INFORMATION. OVA/ PARASITES EXAM NO OVA, CYSTS, OR PARASITES FOUND. :01 STOB See Note (Abnormal) Comments: COPY OF REPORT SENT TO INFECTION CONTROL 12/06/12 [address]RESULTS [address] TO DR.FAST JOSEPH TO NitoHMUFIOZ41/29/13 LIZBETH MENEZES.REPORT READ BACK BY SAME . Comments: OCCULT BLOOD POSITIVE :01 WBCST See Note (Abnormal) Comments: COPY OF REPORT SENT TO INFECTION CONTROL 12/06/12 1432SOSBORN.RESULTS CALLED TO DR.FAST JOSEPH TO NitoPJGEIYU82/29/13 LIZBETH MENEZES.REPORT READ BACK BY SAME . Comments: FECAL WBC LACTOFERRIN Positive: Fecal WBC Lactoferrin present :00 MICROALBUMIN: CREATININE RATIO Comments: PATIENT WAS FASTINGPERFORMED BY: LinksifyAt[facility] SouthPark [id number] (96961) AND (87840) Creatinine, Urine 144.4 mg/dL (Normal) Range: 15.0-278.0 Microalb/Creat Ratio 4.2 {mg/g_creat} (Normal) Range: 0.0-30.0 Microalbumin, Urine 6.0 ug/mL (Normal) Range: 0.0-17.0 :00 LIPID PANEL (92344) Comments: PATIENT WAS FASTINGPERFORMED BY: Attainia [employer]ebra [facility] [id number] LDL/HDL Ratio 1.3 {ratio_units} (Normal) Range: 0.0-3.2 HDL Cholesterol 87 mg/dL (Normal) Comments: According to ATP-III Guidelines, HDL-C >59 mg/dL is considered anegative risk factor for CHD. LDL Cholesterol Calc 116 mg/dL (Abnormal) Range: 0-99 VLDL Cholesterol Sumeet 24 mg/dL (Normal) Range: 5-40 Cholesterol, Total 227 mg/dL (Abnormal) Range: 100-199 Triglycerides 122 mg/dL (Normal) Range: 0-149 : CBC WITH MANUAL DIFF Comments: PATIENT WAS FASTINGPERFORMED BY: Attainia Ezqpla5298 [facility] [id number] Information: [id number] (13196) Immature Grans (Abs) 0.0 {x10E3/uL} (Normal) Range: [...] 3.77-5.28 WBC 4.6 {x10E3/uL} (Normal) Range: 4.0-10.5 23-Zqj-821481:00 METABOLIC PANEL, COMPREHENSIVE Comments: PATIENT WAS FASTINGPERFORMED BY: LabCoMonmouth Medical CenterFanypg0149 [facility] [id number] (40730) ALT (SGPT) 26 [iU]/L (Normal) Range: 0-32 [...] Glucose, Serum 93 mg/dL (Normal) Range: 65-99 18-Ivm-023832:00 Vitamin D Hydroxy (97722) Comments: PATIENT WAS FASTINGPERFORMED BY: [facility]6370 [facility] [id number] Vitamin D, 25-Hydroxy 34.1 ng/mL (Normal) Range: 30.0-100.0 Comments: Vitamin D deficiency has been defined by the [place] [employer] Healthcine and an Endocrine Society practice guideline as alevel of serum 25-OH vitamin D less than 20 ng/mL (1,2).The Endocrine Society went on to further define vitamin Dinsufficiency as a level between 21 and 29 ng/mL (2).1. IOM ([place] [employer] Medicine). 2010. Dietary reference intakes for calcium and D. [place]: The National Academies Press.2. Hannah MF, Hilda SONG, Cindy FREED, et al. Evaluation, treatment, and prevention of vitamin D deficiency: an Endocrine Society clinical practice guideline. JCEM. 2010; 96(7):1911-30. 53-Dce-622382:29 URINE WON CULTURE-OSMAR COL Comments: PATIENT NOT FASTINGPERFORMED BY: LabCo Kleeui0793 [facility] [id number] Information: SRC: [id number] COUNT (26965) Result 1 CNSNSS (Normal) Comments: Coagulase negative [...] S Urine Final report Culture,Comprehensi (Normal) ve 58-Dsp-966147:39 Urinalysis, Office (04456) UA - BILIRUBIN Negative (Normal) UA - BLOOD Negative (Normal) UA - GLUCOSE Negative (Normal) UA - KETONES Negative mg/dL (Normal) UA - LEUKOCYTE ESTERASE Trace (Normal) UA - NITRITE Negative (Normal) UA - PH 8.0 (Normal) UA - PROTEIN Trace mg/dL (Normal) UA - SPECIFIC GRAVITY 1.020 (Normal) URINE UROBILINGN OSMAR TIMED Normal mg/dL (Normal) 89-Pwi-387189:27 HgA1C , Office (93726) HgA1C , Office 5.9 % (Normal) Range: 4.6 - 7.1 5-Fvl-391172:45 CULTURE, SPUTUM (33450) Comments: PATIENT NOT FASTINGPERFORMED BY: [facility]6370 [facility] [id number] Information: SRC:[facility] [id number] Result 1 RRF (Normal) Comments: Routine respiratory trip Lower Respiratory Culture Final report (Normal) 5-Ccj-768461:41 Urinalysis, Office (98051) UA - BILIRUBIN Negative (Normal) UA - BLOOD Negative (Normal) UA - GLUCOSE Negative (Normal) UA - KETONES Negative mg/dL (Normal) UA - LEUKOCYTE ESTERASE Trace (Normal) UA - NITRITE Negative (Normal) UA - PH 7.0 (Normal) UA - PROTEIN Negative mg/dL (Normal) UA - SPECIFIC GRAVITY 1.020 (Normal) URINE UROBILINGN OSMAR TIMED Normal mg/dL (Normal) 65-Ilu-650276:29 Urinalysis, Office (96849) UA - BILIRUBIN Negative (Normal) UA - BLOOD Hemolyzed Large (Normal) UA - GLUCOSE Negative (Normal) UA - KETONES Negative mg/dL (Normal) UA - LEUKOCYTE ESTERASE Trace (Normal) UA - NITRITE Negative (Normal) UA - PH 6.0 (Normal) Comments: 5.5 UA - PROTEIN Negative mg/dL (Normal) UA - SPECIFIC GRAVITY 1.025 (Normal) Comments: >=1.030 URINE UROBILINGN OSMAR TIMED Normal mg/dL (Normal) 74-Pum-220758:59 URINE WON CULTURE-OSMAR COL Comments: PATIENT NOT FASTINGPERFORMED BY: [facility]6370 [facility] [id number] Information: SRC:UR [id number] COUNT (86628) Result 1 Alpha streptococcus Comments: 900 Colonies/mLSusceptibility not normally performed on this organism. (Normal) Urine Final report (Normal) Culture,Stuart gilliland 76-Hpm-077041:41 Urinalysis, Office (62661) UA - NITRITE Negative (Normal) URINE UROBILINGN OSMAR TIMED 2 mg/dL (Normal) UA - PROTEIN Trace mg/dL (Normal) UA - PH 7.0 (Normal) UA - BLOOD Hemolyzed Large (Normal) UA - SPECIFIC GRAVITY 1.025 (Normal) UA - KETONES Negative mg/dL (Normal) UA - BILIRUBIN Negative (Normal) UA - GLUCOSE Negative (Normal) 66-Eai-41182:00 CHEST, PA AND LATERAL Radiology Report See [...] change. Signed:Yousif Hathaway M.D.July at 1:40:15 PM [id number] Signed GP/GP If you are the referring physician and would like to consult with theradiologist who provided this interpretation, please contact Yousif Hathaway M.D. at [phone]. If this radiologist is unavailable, youwill be directed to another radiologist to assist. If you are a patient with a question regarding this report, pleasecontactyour r [facility] physician directly. Professional Interpretation Provided By: [employer], Phone , These documents contain legally protected [...] 07/28/12 1403 Sign by: Yousif Hathaway MD 36-Lxx-646180:27 CBC WITH MANUAL DIFF Comments: PATIENT WAS FASTINGPERFORMED BY: LabCoMonmouth Medical CenterFixxnz2712 [facility] [id number] Information: [id number] (18408) Immature Grans (Abs) 0.0 {x10E3/uL} (Normal) Range: [...] 3.77-5.28 WBC 5.9 {x10E3/uL} (Normal) Range: 4.0-10.5 21-Hbc-930698:27 METABOLIC PANEL, COMPREHENSIVE Comments: PATIENT WAS FASTINGPERFORMED BY: [facility]Co Gqafyq0231 [facility] [id number] (94010) ALT (SGPT) 16 [iU]/L (Normal) Range: 0-32 [...] Glucose, Serum 86 mg/dL (Normal) Range: 65-99 3-Yiz-667925:09 HgA1C , Office (10673) HgA1C , Office 6.0 % (Normal) Range: 4.6 - 7.1 87-Pty-138941:27 HEPATIC FUNCTION PANEL Comments: PATIENT WAS FASTINGPERFORMED BY: SABIA Yuhplh7886 [facility] [id number] (67872) Bilirubin, Direct 0.09 mg/dL (Normal) Range: 0.00-0.40 60-Cwu-449046:27 LIPID PANEL (20351) Comments: PATIENT WAS FASTINGPERFORMED BY: SABIA Xijwmd7062 [facility] [id number] LDL/HDL Ratio 1.8 {ratio_units} (Normal) Range: 0.0-3.2 LDL Cholesterol Calc 129 mg/dL (Abnormal) Range: 0-99 VLDL Cholesterol Sumeet 28 mg/dL (Normal) Range: 5-40 HDL Cholesterol 72 mg/dL (Normal) Comments: According to ATP-III Guidelines, HDL-C >59 mg/dL is considered anegative risk factor for CHD. Triglycerides 139 mg/dL (Normal) Range: 0-149 Cholesterol, Total 229 mg/dL (Abnormal) Range: 100-199 18-Kie-425664:51 Microscopic Examination Comments: PATIENT WAS FASTINGPERFORMED BY: ReClaims SalgueroU-Subs DeliAsheville Specialty Hospital [id number] Bacteria None seen (Normal) Mucus Threads Present (Normal) Epithelial Cells (non renal) 0-10 {/hpf} (Normal) Range: 0 - 10 RBC 0-3 {/hpf} (Normal) Range: 0 - 3 WBC 0-5 {/hpf} (Normal) Range: 0 - 5 :51 LIPID PANEL (77630) Comments: PATIENT WAS FASTINGPERFORMED BY: [facility]ifyAt[facility] [id number]; f/u 06/08/12 LDL/HDL Ratio 1.4 {ratio_units} (Normal) Range: 0.0-3.2 LDL Cholesterol Calc 109 mg/dL (Abnormal) Range: 0-99 VLDL Cholesterol Sumeet 36 mg/dL (Normal) Range: 5-40 HDL Cholesterol 78 mg/dL (Normal) Comments: According to ATP-III Guidelines, HDL-C >59 mg/dL is considered anegative risk factor for CHD. Triglycerides 179 mg/dL (Abnormal) Range: 0-149 Cholesterol, Total 223 mg/dL (Abnormal) Range: 100-199 42-Dhp-512455:51 VITAMIN B-12 (CYANOCOBALAMIN) Comments: PATIENT WAS FASTINGPERFORMED BY: Attainia Sravdh9686 [facility] [id number] (23446) Vitamin B12 702 pg/mL (Normal) Range: 211-946 :51 Vitamin D Hydroxy (03069) Comments: PATIENT WAS FASTINGPERFORMED BY: Attainia Ddiotp3497 [facility] [id number] Vitamin D, 25-Hydroxy 43.0 ng/mL (Normal) Range: 30.0-100.0 Comments: Vitamin D deficiency has been defined by the [place] [employer] and an Endocrine Society practice guideline as alevel of serum 25-OH vitamin D less than 20 ng/mL (1,2).The Endocrine Society went on to further define vitamin Dinsufficiency as a level between 21 and 29 ng/mL (2).1. IOM ([place] [employer]). 2010. Dietary reference intakes for calcium and D. [place]: The National AcademFlipGive Press.2. Hannah MF, Hilda SONG, Cindy FREED, et al. Evaluation, treatment, and prevention of vitamin D deficiency: an Endocrine Society clinical practice guideline. JCEM. 2010; 96(7):1911-30. :51 URINALYSIS, W/ MICRO (04834) Comments: PATIENT WAS FASTINGPERFORMED BY: [facility] [id number] Microscopic Examination See below: (Normal) Microscopic Examination MICRON (Normal) Comments: Microscopic follows if indicated. Nitrite, Urine Negative (Normal) Urobilinogen,Semi-Qn 0.2 mg/dL (Normal) Range: 0.0-1.9 Bilirubin Negative (Normal) Occult Blood Negative (Normal) Ketones Negative (Normal) Glucose Negative (Normal) Protein Negative (Normal) WBC Esterase Negative (Normal) Appearance Clear (Normal) Urine-Color Yellow (Normal) pH 7.0 (Normal) Range: 5.0-7.5 Specific Newell 1.019 (Normal) Range: 1.005-1.030 :51 METABOLIC PANEL, Comments: PATIENT WAS FASTINGPERFORMED BY: elmenus6370 [employer] [facility] HospitalSpot Mobile InternationalAtrium Health SouthPark [id number] Information: [id number] COMPREHENSIVE (20841) ALT (SGPT) 17 [iU]/L (Normal) Range: 0-40 [...] Glucose, Serum 95 mg/dL (Normal) Range: 65-99 42-Nmb-061946:51 TSH (93592) Comments: PATIENT WAS FASTINGPERFORMED BY: SABIA Rvypmx1101 [facility] [id number] TSH 1.860 {uIU/mL} (Normal) Range: 0.450-4.500 46-Eti-428580:31 Blood Glucose , Office (82704) Blood Glucose , Office 119 (Normal) 89-Xpr-735315:22 FECAL OCCULT- Tubes sent home (78645) FECAL OCCULT HGB ASSAY, QUAL, 1-3 SIMULTANEOU Negative (Normal) :56 CBC WITH MANUAL DIFF Comments: PATIENT WAS FASTINGPERFORMED BY: SABIA Zwuqks9414 [facility] [id number] Information: [id number] (03051) Immature Grans (Abs) 0.0 {x10E3/uL} (Normal) Range: [...] {x10E3/uL} (Normal) Range: 4.0-10.5 :56 RETICULOCYTE COUNT [facility] (15791) Comments: PATIENT WAS FASTINGPERFORMED BY: LabCoMonmouth Medical CenterIxpxcr3727 [facility] [id number] Reticulocyte Count 0.9 % (Normal) Range: 0.5-3.0 :56 IRON BINDING CAPACITY (TIBC) Comments: PATIENT WAS FASTINGPERFORMED BY: LabCoMonmouth Medical CenterRwaasv6953 [facility] [id number] (59711) Iron Saturation 12 % (Abnormal) Range: 15-55 Iron, Serum 47 ug/dL (Normal) Range: 35-155 UIBC 342 ug/dL (Normal) Range: 150-375 Iron Bind.Cap.(TIBC) 389 ug/dL (Normal) Range: 250-450 13-Apr-20128:56 FERRITIN (84399) Comments: PATIENT WAS FASTINGPERFORMED BY: LabPoached JobsMonmouth Medical CenterAwjbro5575 [facility] [id number] Ferritin, Serum 10 ng/mL (Abnormal) Range: 13-150 35-Ues-485114:13 HgA1C , Office (60333) HgA1C , Office 5.8 % (Normal) Range: 4.6 - 7.1 84-Kze-824995:13 Blood Glucose , Office (22852) Blood Glucose , Office 116 (Normal) 6-Vcm-734467:00 CBC WITH MANUAL DIFF Comments: PATIENT WAS FASTINGPERFORMED BY: LabCoMonmouth Medical CenterJpihcz4833 [facility] [id number] Information: [id number] (90934) Immature Grans (Abs) 0.0 {x10E3/uL} (Normal) Range: [...] 3.80-5.10 WBC 3.6 {x10E3/uL} (Abnormal) Range: 4.0-10.5 : MICROALBUMIN: CREATININE RATIO Comments: PATIENT WAS FASTINGPERFORMED BY: [facility]6370 [facility] [id number] (27454) AND (66124) Microalb/Creat Ratio 3.8 {mg/g_creat} (Normal) Range: 0.0-30.0 Creatinine, Urine 200.2 mg/dL (Normal) Range: 15.0-278.0 Microalbumin, Urine 7.7 ug/mL (Normal) Range: 0.0-17.0 : METABOLIC PANEL, COMPREHENSIVE Comments: PATIENT WAS FASTINGPERFORMED BY: [facility]6370 [facility] [id number] (13689) ALT (SGPT) 12 [iU]/L (Normal) Range: 0-40 [...] Glucose, Serum 96 mg/dL (Normal) Range: 65-99 1-Syo-935999:00 LIPID PANEL (25216) Comments: PATIENT WAS FASTINGPERFORMED BY: LinksifyAt[facility] [id number] LDL/HDL Ratio 1.3 {ratio_units} (Normal) Range: 0.0-3.2 LDL Cholesterol Calc 99 mg/dL (Normal) Range: 0-99 VLDL Cholesterol Sumeet 26 mg/dL (Normal) Range: 5-40 HDL Cholesterol 75 mg/dL (Normal) Comments: According to ATP-III Guidelines, HDL-C >59 mg/dL is considered anegative risk factor for CHD. Triglycerides 129 mg/dL (Normal) Range: 0-149 Cholesterol, Total 200 mg/dL (Abnormal) Range: 100-199 93-Tml-839830:12 HgA1C , Office (69841) HgA1C , Office 6.1 % (Normal) Range: 4.6 - 7.1 60-Hso-308953:12 Blood Glucose , Office (03788) Blood Glucose , Office 100 (Normal) :46 Anaerobic and Aerobic Comments: PERFORMED BY: Figure 1[facility] [id number] Information: SRC:FL LEFT ANKLE Culture Result 1 NG36 (Normal) Comments: No growth in 36 - 48 hours. Aerobic Culture Final report (Normal) Result 1 NANG72 (Normal) Comments: No anaerobic growth in 72 hours. Anaerobic Culture Final report (Normal) 77-Xsl-119843:23 CHEST, PA AND LATERAL Radiology Report See [...] 1037 Sign by: _ Yousif Hathaway MD 70-Lln-780050:57 LIPID PANEL (09409) Comments: PATIENT WAS FASTINGPERFORMED BY: [facility]6370 [facility] [id number] LDL/HDL Ratio 1.3 {ratio_units} (Normal) Range: 0.0-3.2 LDL Cholesterol Calc 113 mg/dL (Abnormal) Range: 0-99 VLDL Cholesterol Sumeet 23 mg/dL (Normal) Range: 5-40 HDL Cholesterol 90 mg/dL (Normal) Comments: According to ATP-III Guidelines, HDL-C >59 mg/dL is considered anegative risk factor for CHD. Cholesterol, Total 226 mg/dL (Abnormal) Range: 100-199 Triglycerides 113 mg/dL (Normal) Range: 0-149 98-Tzx-907756:57 METABOLIC PANEL, COMPREHENSIVE Comments: PATIENT WAS FASTINGPERFORMED BY: [employer] AnalyticsRUSTSieemh9989 [facility] [id number] (98669) ALT (SGPT) 18 [iU]/L (Normal) Range: 0-40 [...] Glucose, Serum 98 mg/dL (Normal) Range: 65-99 :57 CBC WITH MANUAL DIFF Comments: PATIENT WAS FASTINGPERFORMED BY: [employer] AnalyticsRUSTBkkbkr4126 [facility] [id number] Information: [id number] (63082) Immature Grans (Abs) 0.0 {x10E3/uL} (Normal) Range: [...] (Normal) Range: 4.0-10.5 :57 HgA1C , Office (14179) HgA1C , Office 5.9 % (Normal) Range: 4.6 - 7.1 :57 Blood Glucose , Office (07485) Blood Glucose , Office 94 (Normal) :46 DEXA BONE DENSITY STUDY (HP) Radiology Report See Note (Normal) Comments: CLINICAL:Female, 65 years old. Postmenopausal with past history of steroid use,family history and bone fracture. EXAMINATION:DUAL ENERGY X-RAY ABSORPTIOMETRY / DEXA. TECHNIQUE:Bone Mineral Density (BMD ) measurements of lumbar spine and bilateralhipswere obtained using a [employer] Alaris scanner.. COMPARISON:Prior bone density of November 27, [...] Foundation [email or web address] Dictated on 11/27/10 1402 by FuadErnaTranscribed on 11/28/102030 by ITS IMPORTSign by Erna Merida on 11/28/102031 Sign by: Erna Merida 98-Eoe-539924:06 Vitamin D Hydroxy (41018) Comments: PATIENT WAS FASTINGPERFORMED BY: LabComplete Genomics70 SalgueroU-Subs DeliAsheville Specialty Hospital [id number] Vitamin D, 25-Hydroxy 51.1 ng/mL (Normal) Range: 32.0-100.0 Comments: Recent studies consider the lower limit of 32.0 ng/mL to be athreshold for optimal health.Fred VILLARREAL. J Nutr. 2004;135(2):317-22. 45-Ylp-083628:06 LIPID PANEL (11345) Comments: PATIENT WAS FASTINGPERFORMED BY: [employer]6370 TalkableAt[facility] SouthPark [id number] LDL Cholesterol Calc 66 mg/dL (Normal) Range: 0-99 LDL/HDL Ratio 0.8 {ratio_units} (Normal) Range: 0.0-3.2 VLDL Cholesterol Sumeet 20 mg/dL (Normal) Range: 5-40 HDL Cholesterol 88 mg/dL (Normal) Comments: According to ATP-III Guidelines, HDL-C >59 mg/dL is considered anegative risk factor for CHD. Cholesterol, Total 174 mg/dL (Normal) Range: 100-199 Triglycerides 99 mg/dL (Normal) Range: 0-149 75-Ohh-058405:06 CBC WITH MANUAL DIFF Comments: PATIENT WAS FASTINGPERFORMED BY: [facility] Fferuk0611 [facility] [id number] Information: [id number] (97571) Immature Grans (Abs) 0.0 {x10E3/uL} (Normal) Range: [...] 3.80-5.10 WBC 4.8 {x10E3/uL} (Normal) Range: 4.0-10.5 38-Rug-714109:06 METABOLIC PANEL, COMPREHENSIVE Comments: PATIENT WAS FASTINGPERFORMED BY: LabCoMonmouth Medical CenterDbglrj5778 [facility] [id number] (78095) ALT (SGPT) 25 [iU]/L (Normal) Range: 0-40 [...] Glucose, Serum 85 mg/dL (Normal) Range: 65-99 17-Bem-178002:06 MICROALBUMIN: CREATININE RATIO Comments: PATIENT WAS FASTINGPERFORMED BY: LinksifyAtrium Health SouthPark [id number] (24230) AND (15974) Creatinine, Urine 220.5 mg/dL (Normal) Range: 15.0-278.0 Microalb/Creat Ratio 5.4 {mg/g_creat} (Normal) Range: 0.0-30.0 Microalbumin, Urine 12.0 ug/mL (Normal) Range: 0.0-17.0 46-Jth-773578:10 HgA1C , Office (29244) HgA1C , Office 5.8 % (Normal) Range: 4.6 - 7.1 :10 Blood Glucose , Office (72345) Blood Glucose , Office 107 (Normal) 2-Zwz-474677:23 Microscopic Examination Comments: PATIENT NOT FASTINGPERFORMED BY: LinksifyAt[facility] Health SouthPark [id number] Bacteria Few (Normal) Mucus Threads Present (Normal) Epithelial Cells (non renal) 0-10 {/hpf} (Normal) Range: 0 - 10 RBC 0-3 {/hpf} (Normal) Range: 0 - 3 WBC 0-5 {/hpf} (Normal) Range: 0 - 5 :23 VITAMIN B-12 (CYANOCOBALAMIN) Comments: PATIENT NOT FASTINGPERFORMED BY: [facility]emakerSelect [facility]6370 [facility] [id number] (78666) Vitamin B12 685 pg/mL (Normal) Range: 211-946 :23 URINALYSIS, W/ MICRO (17916) Comments: PATIENT NOT FASTINGPERFORMED BY: [facility]emakerSelect [facility] Hospital-[facility]int6370 [facility] [id number] Microscopic Examination See below: (Normal) Microscopic Examination MICRON (Normal) Comments: Microscopic follows if indicated. Nitrite, Urine Negative (Normal) Urobilinogen,Semi-Qn 0.2 mg/dL (Normal) Range: 0.0-1.9 Bilirubin Negative (Normal) Appearance Clear (Normal) Glucose Negative (Normal) Ketones Negative (Normal) Occult Blood Negative (Normal) Protein Negative (Normal) WBC Esterase Negative (Normal) pH 6.5 (Normal) Range: 5.0-7.5 Urine-Color Yellow (Normal) Specific Newell 1.020 (Normal) Range: 1.005-1.030 :23 TSH (08937) Comments: PATIENT NOT FASTINGPERFORMED BY: [facility]emakerSelect [facility]6370 [facility] [id number] TSH 1.630 {uIU/mL} (Normal) Range: 0.450-4.500 :23 CBC WITH MANUAL DIFF Comments: PATIENT NOT FASTINGPERFORMED BY: [facility]6370 [facility] [id number] Information: [id number] (42254) Immature Grans (Abs) 0.0 {x10E3/uL} (Normal) Range: [...] (Normal) Range: 4.0-10.5 :25 HgA1C , Office (30513) HgA1C , Office 5.8 % (Normal) Range: 4.6 - 7.1 32-Kxu-652506:25 Blood Glucose , Office (80237) Blood Glucose , Office 106 (Normal) :35 Rapid Strep Test, Office (11167) Rapid Strep Test, Office Negative (Normal) 19-Yrh-189114:41 HEPATIC FUNCTION PANEL Comments: PATIENT WAS FASTINGPERFORMED BY: LabCoMonmouth Medical CenterMuyhsa3190 [facility] [id number] Information: [id number] (92221) ALT (SGPT) 19 [iU]/L (Normal) Range: 0-40 Alkaline Phosphatase, S 63 [iU]/L (Normal) Range: 25-165 AST (SGOT) 22 [iU]/L (Normal) Range: 0-40 Albumin, Serum 4.5 g/dL (Normal) Range: 3.6-4.8 Bilirubin, Direct 0.13 mg/dL (Normal) Range: 0.00-0.40 Bilirubin, Total 0.4 mg/dL (Normal) Range: 0.0-1.2 Protein, Total, Serum 6.2 g/dL (Normal) Range: 6.0-8.5 93-Ocl-578866:41 LIPID PANEL (60398) Comments: PATIENT WAS FASTINGPERFORMED BY: Stamped LabPoached JobsMonmouth Medical CenterXmzwxm3493 [facility] [id number] LDL/HDL Ratio 1.1 {ratio_units} (Normal) Range: 0.0-3.2 HDL Cholesterol 66 mg/dL (Normal) Comments: According to ATP-III Guidelines, HDL-C >59 mg/dL is considered anegative risk factor for CHD. LDL Cholesterol Calc 75 mg/dL (Normal) Range: 0-99 Triglycerides 78 mg/dL (Normal) Range: 0-149 VLDL Cholesterol Sumeet 16 mg/dL (Normal) Range: 5-40 Cholesterol, Total 157 mg/dL (Normal) Range: 100-199 :41 Vitamin D Hydroxy (51921) Comments: PATIENT WAS FASTINGPERFORMED BY: [facility]amped [facility] Ysyyhw2022 [facility] [id number] Vitamin D, 25-Hydroxy 46.3 ng/mL (Normal) Range: 32.0-100.0 Comments: Recent studies consider the lower limit of 32.0 ng/mL to be athreshold for optimal health.Fred VILLARREAL. J Nutr. 2004;135(2):317-22. :54 HgA1C , Office (04325) HgA1C , Office 6.2 % (Normal) Range: 4.6 - 7.1 :54 Blood Glucose , Office (03460) Blood Glucose , Office 91 (Normal) 36-Ieh-619627:34 CBCD,SMEAR DIFF RED CELL MORPH SeeNote {NORMAL} [...] 11.6-14.6 WBC 5.4 K/mm3 (Normal) Range: 4.4-11.0 88-Zvc-858822:34 COMP METABOLIC A/G 1.3 {RATIO} (Normal) Range: [...] 6.4-8.2 GLU 91 mg/dL (Normal) Range: 70-110 32-Nmj-767565:34 D BILI 0.06 mg/dL (Normal) Range: 0.00-0.30 14-Pfw-269390:34 LIPID HDL 60 mg/dL (Normal) Comments: Reference [...] CHOL 223 mg/dL (Abnormal) Comments: <200 mg/dL Pllqitwpo777-736 mg/dL Borderline>240 mg/dL High Risk 02-Tze-862285:34 MICROALB:CRE UR MALB:CREAT 5.4 {mg/g_CRE} (Normal) MICROALBUMIN,UR 10.9 mg/L (Normal) UR CREAT 199.6 mg/dL (Normal) 96-Odn-689075:34 VIT D,25 48396 36.2 ng/mL (Normal) Range: 32.0-100.0 Comments: Recent studies consider the lower limit of 32.0 ng/mL to adan threshold for optimal health.Fred VILLARREAL. J Nutr. 2004;135(2):317-22.Performed at: - [facility] [id number] Director: Roseann Carter MD 3-Ztx-819706:28 HgA1C , Office (14810) HgA1C , Office 5.9 % (Normal) Range: 4.6 - 7.1 7-Mjt-729484:28 Blood Glucose , Office (56017) Blood Glucose , Office 103 (Normal) 08-Ibe-877742:07 LIPID CHOL 205 mg/dL (Abnormal) Comments: <200 mg/dL Qxvworxew745-708 mg/dL Borderline>240 mg/dL High Risk HDL 76 mg/dL (Normal) Comments: Reference RangeHDL <40 mg/dL Low HDL CholesterolHDL >or= 60 mg/dL High HDL Cholesterol LDL 105 mg/dL (Normal) Range: 0-130 TRIG 121 mg/dL (Normal) Comments: Serum Triglycerides Reference IntervalNormal <150 mg/dLBorderline high 150 - 199 mg/dLHigh 200 - 499 mg/ dLVery High > or = 500 mg/dL VLDL 24 mg/dL (Normal) Range: 5-40 66-Cim-641131:07 LIVER ALB 3.9 g/dL (Normal) Range: 3.4-5.0 ALK P 72 U/L (Normal) Range: 50-136 ALT 29 U/L (Normal) Range: 12-78 AST 15 U/L (Normal) Range: 15-37 D BILI 0.09 mg/dL (Normal) Range: 0.00-0.30 T BILI 0.40 mg/dL (Normal) Range: 0.00-1.00 T PROT 6.9 g/dL (Normal) Range: 6.4-8.2 :27 Blood Glucose , Office (53044) Blood Glucose , Office 97 (Normal) :26 HgA1C , Office (31386) HgA1C , Office 5.6 % (Normal) Range: [...] T PROT 7.1 g/dL (Normal) Range: 6.4-8.2 55-Tyg-559229:48 LIPID CHOL 232 mg/dL (Abnormal) Comments: <200 [...] (Normal) Range: 0.358-3.74 :58 HgA1C , Office (08978) HgA1C , Office 5.6 % (Normal) Range: 4.6 - 7.1 :58 Blood Glucose , Office (45992) Blood Glucose , Office 110 (Normal) :11 [...] PHOS 2.6 mg/dL (Normal) Range: 2.5-4.9 :11 PROT.[id number] ALBUMIN,UR 31.3 % (Normal) IXUHW-8-IJDL,U 1.6 % (Normal) SBEQZ-4-VWAZ,U 13.0 % (Normal) BETA GLOB,U 40.1 % (Normal) GAMMA GLOB,U 14.0 % (Normal) M-SPIKE,U SeeNote % (Normal) Comments: Result: Not Observed NOTE Comment (Normal) Comments: Protein electrophoresis scan will follow via computer,mail, or plastics and composites inspector delivery. PROTEIN,UR 10.2 mg/dL (Normal) Range: 0.0-15.0 :11 PTH,HRPFVQ42110 PTH,Intact 28 pg/mL (Normal) Range: 15-65 Comments: Performed At: [facility]6[address] [place], [place] [id number] :11 SPE [id number] A/G RATIO 1.7 (Normal) Range: 0.7-2.0 ALBUMIN [...] electrophoresis scan will follow via computer,mail, or plastics and composites inspector delivery. PROTEIN,TOTAL 6.3 g/dL (Normal) Range: 6.0-8.5 5-Cno-897330:05 TRANSVAGINAL NON-PREG US () Radiology Report See Note (Normal) Comments: Exam Number: [id number] PELVIC ULTRASOUND HISTORYAbnormal pelvic exam. Transabdominal and transvaginal studies were performed. Highresolution real time sector images were obtained. The [place] angela is sandra l in size measuring [...] not seen. Reported By: JAVY CASTRO M.D. 1-Ikg-509613:51 PELVIC (NON-PREG) () Radiology Report See Note (Normal) Comments: Exam Number: [id number] PELVIC ULTRASOUND HISTORYAbnormal pelvic exam. Transabdominal and transvaginal studies were performed. Highresolution real time sector images were obtained. The [place]ela is sandra l in size measuring [...] not seen. Reported By: JAVY CASTRO M.D. 09-Lvz-918393:41 Thin prep Pap Comments: Source.............Cervical;EndocervicalLMP / Prev Treat...PEY=[id number]. of containers..01 CYTYC Thin Prep VialPATIENT NOT FASTINGClinical Information: ADD [id number] (44014) PERFORMED BY: T[employer] [id number] . . (Normal) DIAGNOSIS: SPRCS (Normal) Comments: NEGATIVE FOR INTRAEPITHELIAL LESION AND MALIGNANCY.Satisfactory for evaluation. Endocervical component may not bedistinguished in cases of atrophy.V72.31 ; Routine gynecological examination Lilly Bravo, Motor Setter (ASCP) Note: PAPSMR (Normal) Comments: The Pap [...] was performed. . :35 HgA1C , Office (67215) HgA1C , Office 5.5 % (Normal) Range: 4.6 - 7.1 :35 Blood Glucose , Office (27538) Blood Glucose , Office 102 (Normal) :54 [...] for patient's is the eGFRmultiplied by 1.212. [facility] Laboratory uses the abbreviated Modification of [...] Disease W/O Kidney Disease>/= 90 Stage One Imltxv84 - 89 Stage Two Suspect Decreased GFR30 [...] T PROT 6.8 g/dL (Normal) Range: 6.4-8.2 8-Syp-944225:54 LIPID CHOL 183 mg/dL (Normal) Comments: <200 [...] {uIU/mL} (Normal) Range: 0.34-4.82 :54 VIT D,25 77015 40.7 ng/mL (Normal) Range: 32.0-100.0 Comments: Recent studies consider the lower limit of 32.0 ng/mL to adan threshold for optimal health.Fred VILLARREAL. J Nutr. 2004;135(2):317-22.Performed At: [address] [id number] 08-Aup-637924:19 DEXA BONE DENSITY STUDY (HP) Radiology Report See Note (Normal) Comments: Exam Number: [id number] BONE DENSITOMETRY HISTORYOsteopenia. TECHNIQUE Bone densitometry of [...] density is measured at 9.2% lessthan in 2000 and 8.1% less than in 2005. IMPRESSIONThere is osteopenia of the lumbar spine and left hip. Reported By: JAVY CASTRO M.D. :57 KNEE,3 VIEWS (MT) Radiology Report See Note (Normal) Comments: Exam Number: [id number] LEFT KNEE CLINICAL INFORMATIONFall, pain. 3 views [...] seen otherwise. Reported By: SHANELL LOFTON M.D. 51-Fja-352326:34 Blood Glucose , Office (09393) Blood Glucose , Office 113 (Normal) :34 HgA1C , Office (19204) HgA1C , Office 5.8 % (Normal) Range: 4.6 - 7.1 :19 HEPATIC FUNCTION PANEL Comments: PATIENT WAS FASTINGClinical Information: ADD DRAW FEE 991101 ADD J 44306 PERFORMED BY: BERE Bountii [facility] [id number] (43871) Albumin, Serum 4.6 g/dL (Normal) Range: 3.6-4.8 Alkaline Phosphatase, S 83 [iU]/L (Normal) Range: 25-165 ALT (SGPT) 17 [iU]/L (Normal) Range: 0-40 AST (SGOT) 22 [iU]/L (Normal) Range: 0-40 Bilirubin, Direct 0.12 mg/dL (Normal) Range: 0.00-0.40 Bilirubin, Total 0.5 mg/dL (Normal) Range: 0.1-1.2 Protein, Total, Serum 7.0 g/dL (Normal) Range: 6.0-8.5 :19 LIPID PANEL (23767) Comments: PATIENT WAS FASTINGPERFORMED BY: [employer]305 RoadDublin [place] [id number] Cholesterol, Total 186 mg/dL (Normal) Range: 100-199 HDL Cholesterol 66 mg/dL (Abnormal) Range: 40-59 Comments: HDL cholesterol values >59 mg/dL are associated with reduced cardiacrisk. LDL Cholesterol Calc 99 mg/dL (Normal) Range: 0-99 LDL/HDL Ratio 1.5 {ratio_units} (Normal) Range: 0.0-3.2 Triglycerides 107 mg/dL (Normal) Range: 0-149 VLDL Cholesterol Sumeet 21 mg/dL (Normal) Range: 5-40 76-Qxv-341905:16 HgA1C , Office (25819) HgA1C , Office 5.5 % (Normal) Range: 4.6 - 7.1 :16 Blood Glucose , Office (03958) Blood Glucose , Office 125 (Normal) 84-Nnf-817698:03 MICROALBUMIN: CREATININE RATIO Comments: PATIENT WAS FASTINGPERFORMED BY: [place]astemakerS[place] 0363570 [facility] [id number] (18957) AND (71969) Microalbum.,U,Random 3.8 ug/mL (Normal) Range: 0.0-17.0 :03 HEPATIC FUNCTION PANEL Comments: PATIENT WAS FASTINGClinical Information: ADD DRAW FEE 793153 ADD J 65854 PERFORMED BY: T[employer] [id number] (77935) Albumin, Serum 4.8 g/dL (Normal) Range: 3.6-4.8 Alkaline Phosphatase, S 77 [iU]/L (Normal) Range: 25-165 ALT (SGPT) 20 [iU]/L (Normal) Range: 0-40 AST (SGOT) 22 [iU]/L (Normal) Range: 0-40 Bilirubin, Direct 0.11 mg/dL (Normal) Range: 0.00-0.40 Bilirubin, Total 0.4 mg/dL (Normal) Range: 0.1-1.2 Protein, Total, Serum 7.0 g/dL (Normal) Range: 6.0-8.5 :03 LIPID PANEL (89802) Comments: PATIENT WAS FASTINGPERFORMED BY: [facility]6370 [facility] [id number] Cholesterol, Total 205 mg/dL (Abnormal) Range: 100-199 [...] Cholesterol Sumeet 32 mg/dL (Normal) Range: 5-40 99-Zzs-773791:53 HgA1C , Office (06324) HgA1C , Office 5.4 % (Normal) Range: 4.6 - 7.1 :52 Blood Glucose , Office (69444) Blood Glucose , Office 96 (Normal) 31-Xcc-965320:42 CHEST, PA AND LATERAL Radiology Report See Note (Normal) Comments: Exam Number: [id number] PA AND LATERAL CHEST HISTORY Being done for cough. Cardiac configuration is normal. There are mild emphysematouschanges. No acute infiltrate, effusion, or pneumothorax isidenti fied. There is spur formation mid dorsal spine. These findingswere all seen on December 10, 2006, and are unchanged. IMPRESSIONNo acute change noted in the lungs. Reported By: CHANEL SANDY M.D. 90-Udi-882072:32 LIPID PANEL (74175) Comments: PATIENT WAS FASTINGPERFORMED BY: [facility]6370 [facility] [id number] Cholesterol, Total 204 mg/dL (Abnormal) Range: 100-199 [...] Cholesterol Sumeet 25 mg/dL (Normal) Range: 5-40 55-Trw-240203:32 URINALYSIS W/O MICRO (15759) Comments: PATIENT WAS FASTINGPERFORMED BY: [employer] AnalyticsMonmouth Medical CenterUugips2042 [facility] [id number] Appearance Clear (Normal) Bilirubin Negative (Normal) Glucose Negative (Normal) Ketones Negative (Normal) Microscopic Examination MICRON (Normal) Comments: Microscopic follows if indicated. Nitrite, Urine Negative (Normal) Occult Blood Negative (Normal) pH 6.5 (Normal) Range: 5.0-7.5 Protein Negative (Normal) Specific Newell 1.019 (Normal) Range: 1.005-1.030 Urine-Color Yellow (Normal) Urobilinogen,Semi-Qn 0.2 mg/dL (Normal) Range: 0.0-1.9 WBC Esterase Negative (Normal) 35-Cdn-857578:32 TSH (94773) Comments: PATIENT WAS FASTINGPERFORMED BY: [employer] AnalyticsMonmouth Medical CenterSsgbaw0240 [facility] [id number] TSH 2.348 {uIU/mL} (Normal) Range: 0.350-5.500 81-Hmb-781880:32 METABOLIC PANEL, COMPREHENSIVE Comments: PATIENT WAS FASTINGPERFORMED BY: [facility] AnalyticsMonmouth Medical CenterObcxod1514 [facility] [id number] (38229) A/G Ratio 1.7 (Normal) Range: 1.1-2.5 Albumin, [...] Sodium, Serum 141 mmol/L (Normal) Range: 135-148 14-Hrm-799282:32 CBC WITH MANUAL DIFF (03614) Comments: PATIENT WAS FASTINGClinical Information: ADD DRAW FEE 878647 ADD J 87112 PERFORMED BY: LabCoMonmouth Medical CenterKxiziz1182 [facility] [id number] Baso (Absolute) 0.0 {x10E3/uL} (Normal) Range: 0.0-0.2 [...] Range: 4.0-10.5 :56 Blood Glucose , Office (30605) Blood Glucose , Office 84 (Normal) :56 HgA1C , Office (97009) HgA1C , Office 5.4 % (Normal) Range: 4.6 - 7.1 :12 Blood Glucose , Office (79001) Comments: [facility] Blood Glucose , Office 94 (Normal) :12 HgA1C , Office (06026) Comments: [facility] HgA1C , Office 5.3 % (Normal) [...] mg/dL VLDL 21 mg/dL (Normal) Range: 5-40 : ANTIBODY SCREEN NEGATIVE (Normal) :27 BLOOD TYPE [...] (Normal) Range: 4.4-11.0 :52 HgA1C , Office (06746) Comments: [facility] HgA1C , Office 5.2 % (Normal) Range: 4.6 - 7.1 :52 Blood Glucose , Office (23446) Comments: [facility] Blood Glucose , Office 99 (Normal) [...] 3.5-5.1 NA 138 mmol/L (Normal) Range: 136-145 04-Yir-748397:12 BMP CL 104 mmol/L (Normal) Range: 98-107 CO2 31.5 mmol/L (Abnormal) Range: 22.0-29.0 GAP 4 (Abnormal) Range: 5-15 K 4.3 mmol/L (Normal) Range: 3.5-5.1 BUN 13 mg/dL (Normal) Range: 7-18 BUN/CRE 16.3 {RATIO} (Normal) Range: 10-20 CA 8.7 mg/dL (Normal) Range: 8.5-10.1 CREAT,SERUM 0.8 mg/dL (Normal) Range: 0.6-1.0 GLU 70 mg/dL (Normal) Range: 70-110 NA 139 mmol/L (Normal) Range: 136-145 05-Btw-334206:12 CBC HCT 37.4 % (Normal) Range: 37-47 HGB 12.8 g/dL (Normal) Range: 12.0-16.0 MCH 30.5 pg (Normal) Range: 27.0-32.0 MCHC 34.1 g/dL (Normal) Range: 32-36 MCV 89.4 fL (Normal) Range: 81-99 PLT 295 K/mm3 (Normal) Range: 150-450 RBC 4.19 {M/mm3} (Abnormal) Range: 4.2-5.4 RDW 12.8 % (Normal) Range: 11.6-14.6 WBC 6.2 K/mm3 (Normal) Range: 4.4-11.0 39-Gew-868997:12 PRO TIME INR 0.9 (Normal) PROTIME 11.7 s (Normal) Range: 11.7-13.3 19-Pav-744552:12 PTT 30.0 s (Normal) Range: 24.6-36.6 :34 Blood Glucose , Office (45537) Blood Glucose , Office 109 (Normal) :34 HgA1C , Office (43509) HgA1C , Office 5.4 % (Normal) Range: 4.6 - 7.1 :42 GLUP 141 mg/dL (Abnormal) Comments: GLU,2HPPG 75gm GLUC PPG GLUP from 1127:[id number]. Comments: Glucose result from 140 to <200 mg/dL suggestsIMPAIRED GLUCOSE HOMEOSTASIS per A.D.A. criteria. :37 B12/FOLATES 810 FOLATES,S 2013 19.9 ng/mL (Normal) Comments: Indeterminate: 3.4 - 5.4 Deficient: <3.4Performed At: [facility]BLV[facility] Administration6[address] [place], [place] [id number] VIT B12 1503 375 pg/mL (Normal) Range: [...] 47-70 WBC 6.7 K/mm3 (Normal) Range: 4.4-11.0 :37 COMP METABOLIC A/G 1.5 {RATIO} (Normal) Range: [...] Plan of Care Name Dates Details Instructions Upper respiratory infection (Renamed from Infection of [...] syndrome Obstructive sleep apnea, adult : Reviewed [employer] Watchman Letter Indication: Obstructive sleep apnea, adult Abnormal [...] DIAGNOSTIC TESTS Indication: Symptom, Cough Planned Observations INFECTIOUS ANTIGEN, RSV (25450)Indication: Upper respiratory infection (Renamed from Infection of the upper respiratory tract) On: 05-Mew-457954:19 Request CALCIFEDIOL (29713)Indication: Depression On: Request TSH (24320)Indication: Abnormal glucose tolerance test On: Request URINALYSIS, W/ MICRO (64780)Indication: Abnormal glucose tolerance test On: Request MICROALBUMIN: CREATININE RATIO (55694) AND (85838)Indication: Abnormal glucose tolerance test On: Request METABOLIC PANEL, COMPREHENSIVE (15767)Indication: Abnormal glucose tolerance test On: Request LIPOPROTEIN, BLD, BY NMR (54470)Indication: Abnormal glucose tolerance test On: Request CBC W/AUTO DIFF WBC (37782)Indication: Abnormal glucose tolerance test On: 8-Fgn-124022:29 Request Clostridium difficile Toxin A+B, EIA (86282)Indication: Diarrhea On: 35-Ikg-482162:04 Request Cologuard - Strool Based DNA Test, CRC SCREEN (93137)Indication: Encounter for screening for malignant neoplasm of colon (Renamed from Special screening for malignant neoplasms, colon) On: 77-Vje-785882:58 Request Lipid Panel (37855)Indication: Other hyperlipidemia On: :58 Request CBC WITH MANUAL DIFF (93924)Indication: Other hyperlipidemia On: 48-Rrk-127290:58 Request MICROALBUMIN: CREATININE RATIO (36996) AND (84559)Indication: Other hyperlipidemia On: :58 Request URINALYSIS (56141)Indication: Other hyperlipidemia On: :58 Request TSH (63931)Indication: Other hyperlipidemia On: :58 Request Metabolic Panel, Comprehensive (30978)Indication: Other hyperlipidemia On: 98-Nxh-988416:57 Request GIARDIA LAMBLIA ANTIBODY (14267)Indication: Diarrhea (Renamed from D (diarrhea)) On: 9-Dtj-794041:29 Request WON CULTURE-STOOL (14767)Indication: Diarrhea (Renamed from D (diarrhea)) On: :29 Request OCCULT BLOOD FECES SCREEN (50244)Indication: Diarrhea (Renamed from D (diarrhea)) On: 4-Qgd-545004:27 Request LEUKOCYTE COUNT, FECAL (41166)Indication: Diarrhea (Renamed from D (diarrhea)) On: 6-Tym-154466:27 Request C-DIFFICILE, STOOL (50049)Indication: Diarrhea (Renamed from D (diarrhea)) On: 2-Gcq-462818:27 Request FUSKV-RKGRDVOZKVL-IMYJK (84037)Indication: Elevated AFP On: 1-Pmp-937798:55 Request AMXIS-IKTSZZYAQUA-ZNZUQ (25199)Indication: Elevated tumor markers On: 57-Ynp-219701:39 Request VITAMIN B12 AND FOLATES (42089)Indication: Other hyperlipidemia On: :39 Request CALCIFEDIOL (82443)Indication: Other hyperlipidemia On: :39 Request TSH (THYROID STIMULATING HORMONE) (42255)Indication: Other hyperlipidemia On: 24-Sat-062450:39 Request LIPID PANEL (13874)Indication: Other hyperlipidemia On: :39 Request METABOLIC PANEL, COMPREHENSIVE (51590)Indication: Other hyperlipidemia On: :39 Request CBC, PLATELETS & AUT DIFF (51115)Indication: Other hyperlipidemia On: :39 Request CBC W/AUTO DIFF WBC (98759)Indication: Abnormal glucose tolerance test On: :05 Request LIPID PANEL (02297)Indication: Other hyperlipidemia On: :04 Request METABOLIC PANEL, COMPREHENSIVE (83271)Indication: Abnormal glucose tolerance test On: :04 Request MICROALBUMIN: CREATININE RATIO (43864) AND (96964)Indication: Abnormal glucose tolerance test On: :04 Request AZWYF-JTTPJAHOHGS-DVYSP (66572)Indication: Other chronic nonalcoholic liver disease On: :02 Request TSH (77945)Indication: Depression On: 65-Xff-626311:37 Request LIPID PANEL (68162)Indication: Hyperlipidemia, unspecified On: 05-Kip-436082:36 Request SFSMN-PSQMVDKHQTH-HWVGK (52653)Indication: Other chronic nonalcoholic liver disease On: 49-Wwc-126836:35 Request CBC W/AUTO DIFF WBC (51701)Indication: Abnormal glucose tolerance test On: 09-Ony-179434:35 Request METABOLIC PANEL, COMPREHENSIVE (47581)Indication: Abnormal glucose tolerance test On: 62-Dfu-076541:35 Request FECAL OCCULT HGB ASSAY- tubes sent home (32089)Indication: Anemia, unspecified On: 53-Kxt-068646:19 Request METABOLIC PANEL, COMPREHENSIVE (39351)Indication: Abnormal glucose tolerance test On: 05-Jym-048581:43 Request IRON (16823)Indication: Anemia, unspecified On: 34-Xhs-088944:30 Request HgA1C , Office (73851)Indication: Abnormal glucose tolerance test On: 35-Hnn-599758:53 Request UPEP (78177)Indication: Osteopenia On: 44-Czy-835285:50 Request SPEP (81465)Indication: Osteopenia On: 93-Wug-132217:50 Request UPEP ([id number])Indication: Osteopenia On: 55-Yky-611696:13 Request SPEP ([id number])Indication: Osteopenia On: 11-Vqg-661169:13 Request TSH ([id number])Indication: Osteopenia On: :23 Request PHOSPHORUS ([id number])Indication: Osteopenia On: 82-Zhl-653456:23 Request PARATHORMONE ([id number])Indication: Osteopenia On: :23 Request URINE CALCIUM OSMAR TIMED 24 Hour ([id number])Indication: Osteopenia On: 34-Vgc-685886:23 Request UPEP ([id number])Indication: Osteopenia On: 48-Pcn-333602:23 Request SPEP ([id number])Indication: Osteopenia On: :23 Request C-DIFFICILE, STOOL ([id number])Indication: Clostridium difficile infection On: 3-Puk-071495:25 Request C-DIFFICILE, STOOL ([id number])Indication: Diarrhea (Renamed from D (diarrhea)) On: 42-Yaa-530353:57 Request WON CULTURE-STOOL ([id number])Indication: Diarrhea (Renamed from D (diarrhea)) On: 90-Ggr-503157:06 Request C-DIFFICILE, STOOL ([id number])Indication: Diarrhea (Renamed from D (diarrhea)) On: 39-Flp-586695:05 Request LEUKOCYTE COUNT, FECAL ([id number])Indication: Diarrhea (Renamed from D (diarrhea)) On: 18-Apb-703005:05 Request OCCULT BLOOD FECES SCREEN ([id number])Indication: Diarrhea (Renamed from D (diarrhea)) On: 47-Jmf-623630:05 Request OVA & PARASITE DIR SMEAR ([id number])Indication: Diarrhea (Renamed from D (diarrhea)) On: 56-Oqy-063268:05 Request C DIFF AMPLIFIED PROBE ([id number])Indication: Diarrhea (Renamed from D (diarrhea)) On: 53-Kpg-693742:53 Request Rapid Flu ([id number] x 2)Indication: Symptom, Cough On: 1-Dnp-801785:35 Request URINE WON CULTURE-OSMAR COL COUNT ([id number])Indication: Hematuria (Renamed from Blood in the urine) On: 6-Ise-463442:28 Request Urinalysis, Office ([id number])Indication: Hematuria (Renamed from Blood in the urine) On: 2-Lsp-631966:00 Request HgA1C , Office ([id number])Indication: Abnormal glucose tolerance test On: 04-Bqq-016512:31 Request IRON ([id number])Indication: Iron deficiency anemia, unspecified On: 38-Rea-937549:22 Request BACT CULTURE ANY-ANAEROBIC ([id number])Indication: CELLULITIS/ABSCESS, FOOT On: 71-Nrz-487782:02 Request Comments: left ankle MICROALBUMIN: CREATININE RATIO ([id number]) AND ([id number])Indication: Abnormal glucose tolerance test On: : Request CBC WITH MANUAL DIFF ([id number])Indication: Abnormal glucose tolerance test On: : Request METABOLIC PANEL, COMPREHENSIVE ([id number])Indication: Abnormal glucose tolerance test On: : Request Vitamin D Hydroxy ([id number])Indication: Osteopenia On: : Request HEPATIC FUNCTION PANEL (89663)Indication: Hyperlipidemia, unspecified On: : Request LIPID PANEL (35321)Indication: Hyperlipidemia, unspecified On: : Request HEPATIC FUNCTION PANEL ([id number])Indication: Hyperlipidemia, unspecified On: :47 Request LIPID PANEL ([id number])Indication: Hyperlipidemia, unspecified On: :47 Request TSH ([id number])Indication: Other and unspecified disorders of circulatory system On: :41 Request METABOLIC PANEL, COMPREHENSIVE ([id number])Indication: Abnormal glucose tolerance test On: :41 Request MICROALBUMIN: CREATININE RATIO ([id number]) AND ([id number])Indication: Abnormal glucose tolerance test On: :34 Request LIPID PANEL ([id number])Indication: Hyperlipidemia, unspecified On: :34 Request PT (Prothrobim Time) ([id number])Indication: Other and unspecified disorders of circulatory system On: :34 Request PTT (Activated Partial Thromboplastin Time) ([id number])Indication: Other and unspecified disorders of circulatory system On: : Request CBC WITH MANUAL DIFF ([id number])Indication: Other and unspecified disorders of circulatory system On: 62-Jgy-657307:34 Request HEPATIC FUNCTION PANEL ([id number])Indication: Hyperlipidemia, unspecified On: 46-Ckd-629897:17 Request LIPID PANEL ([id number])Indication: Hyperlipidemia, unspecified On: :17 Request UPEP ([id number])Indication: Osteopenia On: :52 Request SPEP ([id number])Indication: Osteopenia On: :51 Request PHOSPHORUS ([id number])Indication: Osteopenia On: :51 Request PARATHORMONE ([id number])Indication: Osteopenia On: :51 Request MICROALBUMIN: CREATININE RATIO (60773) AND ([id number])Indication: Abnormal glucose tolerance test On: :44 Request LIPID PANEL ([id number])Indication: Hyperlipidemia, unspecified On: :38 Request METABOLIC PANEL, COMPREHENSIVE ([id number])Indication: Abdominal pain, acute, generalized On: :38 Request CBC WITH MANUAL DIFF ([id number])Indication: Abdominal pain, acute, generalized On: 48-Yut-311684:38 Request TSH ([id number])Indication: Osteopenia On: :38 Request Vitamin D Hydroxy ([id number])Indication: Osteopenia On: :38 Request LIPID PANEL ([id number])Indication: Other hyperlipidemia On: 12-Mtj-556206:33 Request GLUCOSE, PP/2 HOUR ([id number])Indication: Fatigue On: :59 Request URINALYSIS W/O MICRO ([id number])Indication: Fatigue On: :58 Request TSH ([id number])Indication: Fatigue On: :58 Request CBC WITH MANUAL DIFF ([id number])Indication: Fatigue On: :58 Request METABOLIC PANEL, COMPREHENSIVE ([id number])Indication: Fatigue On: :58 Request Planned Encounters Medical; 6 Month FU - On: 17-Mar-2019 13:00 [facility] Jessica Tanner DO, DO, Kathleen Planned Procedures ELECTROCARDIOGRAM, COMPLETE (ECG) On: 15-Sep-2018 Intent ([id number])By: Jessica Tanner DO Comments: nsr no acute chg Jessica Tanner DO Spirometry ([id number])By: Ciro JACQUES, On: 15-Sep-2018 Intent Jessica Preston DO ORTHOSTATIC BLOOD PRESSURE On: 24-May-2018 Intent ASSESSMENT ([id number])By: Ana M Christine LPN PNEUM VAC ADLT/IMUMNOSPR, SBC/INTRM On: 28-Apr-2018 Intent ([id number])By: Jessica Tanner DO Comments: pneumovax prefilled syringe injectionlot: [id number]: 12/2018R DELT IMpt tolerated wellAD Jessica Whiting DO OYEQ-EK-FREQ BEHAVIORAL COUNSELING On: 28-Apr-2018 Intent FOR OBESITY, 15 MINUTES ([id number])By: Jessica Tanner DO, DO, Kathleen DEXA SCAN AXIAL SKELETON ([id number])By: On: 28-Apr-2018 Intent Jessica Tanner DO, DO, Kathleen Flu Vaccine (Quadrivalent) [id number]: On: 02-Aug-2017 Intent Jessica Tanner DO, DO, Comments: InfluenzaLot #[id number]-/18/18Site-L dltd, IMDose prefilled syringeVIS and ABN signedgiven by:INÉS lu [id number] BEHAVIORAL COUNSELING On: 08-Apr-2017 Intent FOR OBESITY, 15 MINUTES (G0447)By: Jessica Tanner DO, DO, Kathleen ELECTROCARDIOGRAM, COMPLETE (ECG) On: 11-Mar-2017 Intent ([id number])By: Jessica Tanner DO Comments: nsr no acute chg Jessica Tanner DO Aerosol Treatment ([id number])By: On: 22-Feb-2017 Intent Tamia Wood Comments: Lungs clear after aersol treatment. 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 Aerosol Treatment ([id number])By: Ciro On: 15-Oct-2016 Jessica Combs DO, DO, Kathleen Comments: more a/e no wheeze less chest tightness CT - Abdomen & Pelvis (IV Contrast On: 15-Sep-2016 Intent Needed)By: Doug Barrett MD Comments: to be done 11/2016 Flu Vaccine (Quadrivalent) [id number]: On: 02-Sep-2016 Intent Doug Barrett MD Comments: FLUlot: [id number]:05/07/17site:Lt deltoidroute:IMdose:.5mlBEBA PHAM Radiology - Chest- PA and LatBy: On: 05-May-[address] CT - Abdomen (IV Contrast Needed)By: On: 05-May-2016 Intent Clemencia Ferreira DO Comments: elevated alpha feto protein Radiology - Shoulder - LeftBy: Fast On: 03-Jan-2016 Intent DO Clemencia A Flu Vaccine (Quadrivalent) 62939Rn: On: 09-Aug-2015 Intent Clemencia Ferreira DO Comments: Lot #:[id number] date: 04/2016Amount given:prefilled syringeSite given:L Dltd, IMGiven by: RAJ Taylor and ABN signed ADMINISTRATION OF INFLUENZA VIRUS On: 09-Aug-2015 Intent VACCINE (G0008)By: Clemencia Ferreira DO Aerosol Treatment ([id number])By: Jhon On: 05-Jun-2015 Intent Clemencia JACQUES Solu- Medrol Injection, 125mg On: 05-Jun-2015 Intent ([id number])By: Clemencia Ferreira DO Comments: lot:[id number]:route:IMdose:125MGsite: R glutGiven by: VAMSI Watt MRI LIVER W CONTRAST ([id number])By: Jhon On: 26-Apr-2015 Clemencia Combs DO DEXA SCAN AXIAL SKELETON ([id number])By: On: 05-Apr-2015 Intent Clemencia Ferreira DO Ultrasound - LiverBy: Clemencia Ferreira DO On: 05-Apr-2015 Intent A EKG ([id number])By: Clemencia Ferreira DO On: 05-Apr-[address] - AbdomenBy: Clemencia Ferreira DO On: 07-Dec-2014 Intent Comments: attn liver - elevated alpha feto protein Aerosol Treatment (51706)By: Toy On: 05-Nov-2014 Intent Nell KLINE Prevnar 13 ([id number])By: Cathy, Nurse On: 30-Aug-2014 Intent Comments: [id number] arm, IMas ADMINISTRATION OF INFLUENZA VIRUS On: 17-Aug-2014 Intent VACCINE (G0008)By: Clemencia Ferreira DO FLU VAC, SPLIT, >3 YEARS, INTRAMUSC On: 17-Aug-2014 Intent ([id number])By: Clemencia Ferreira DO Comments: lot: [id number]: 05-07-15site/route: L del/IMamt: 0.5mLVIS signed when applicableCheVAMSI mcdonough Solu -Medrol Injection, 125 mg On: 13-Aug-2014 Intent ([id number])By: Toy KLINENell Aerosol Treatment ([id number])By: Toy On: 13-Aug-2014 Intent Nell KLINE Ultrasound - LiverBy: Clemencia Ferreira DO On: 25-May-2014 Intent A Aerosol Treatment ([id number])By: Toy On: 26-Mar-2014 Intent Nell KLINE Aerosol Treatment ([id number])By: Toy On: 26-Mar-2014 Intent Nell KLINE EKG (72344)By: Clemencia Ferreira DO On: 16-Feb-2014 Intent Comments: ekg showed normal sinus rhythym, normal axis, no acute st/t wave changes Eprescribed prescriptions (G8553)By: On: 16-Feb-2014 Intent Clemencia Ferreira DO Eprescribed prescriptions (G8553)By: On: 21-Nov-2013 Intent Kristy Hinton Eprescribed prescriptions (G8553)By: On: 19-Jul-2013 Intent Brooke Conklin FLU VAC, SPLIT, >3 YEARS, INTRAMUSC On: 19-Jul-2013 Intent ([id number])By: Brooke Conklin Comments: Lot #:[id number] date:mount given:0.5mlRoute: IMSite given: L dltdVIS and ABN signedGiven by: BEBA Higgins ADMINISTRATION OF INFLUENZA VIRUS On: 19-Jul-2013 Intent VACCINE (G0008)By: Brooke Conklin CT - ChestBy: Otto Ferreira DOa A On: 01-Mar-2013 Intent PFT - CompleteBy: Jhon JACQUES Clemencia A On: 01-Mar-2013 Intent Eprescribed prescriptions (G8553)By: On: 01-Mar-2013 Intent Brooke Conklin Toradol Injection, 30 mg (J1885)By: On: 04-Jan-2013 Intent Jessica Tanner DO, DO, Comments: Lot:[id number]:07/2014Dose:30mLRoute:IMSite:r hipGiven By:HUYEN signed Jessica Eprescribed prescriptions (G8553)By: On: 20-Dec-2012 Intent Clemencia Ferreira DO DXA, BONE DENSITY, AXIAL SKELETON On: 29-Nov-2012 Intent ([id number])By: Clemencia Ferreira DO Eprescribed prescriptions (G8553)By: On: 29-Nov-2012 Intent Brooke Conklin Solu -Medrol Injection, 125 mg On: 23-Nov-2012 Intent (J2930)By: Essie Fletcher LPN Comments: Lot #[id number]-2/15Site-left hipDose- 125 mggiven by: Nito Fletcher LPN Eprescribed prescriptions (G8553)By: On: 23-Nov-2012 Intent Brooke Conklin Solu -Medrol Injection, 125 mg On: 21-Nov-2012 Intent (J2930)By: Clemencia Ferreira DO Comments: Lot: [id number]: mt: 125mgRoute: IMSite: R Gluteal without difficulty or c/o voiced. Given by: INÉS Benjamin Pulse Oximetry (28340)By: Rubin On: 21-Nov-2012 Intent Brooke Comments: 93%- recheck 95 Eprescribed prescriptions (G8553)By: On: 21-Nov-2012 Intent Brooke Conklin Solu -Medrol Injection, 125 mg On: 18-Nov-2012 Intent (J2930)By: Tamia Roblero LPN Comments: pushed By Dr. Tanner trough pt IV lot [id number] exp 04/22 Rocephon Injection, 2 Gm (J0696)By: On: 18-Nov-2012 Intent Tamia Roblero LPN Comments: IV initiated in: R ACwith 22 gaugenumber of attempts: x2 attempts, infiltrated in R FA on first attempt.Tolerated well: without c/o voiced.Rocephin Lot#[id number], exp03/21-2 gms in NS 100cc's infused without difficulty or c/o voiced. Solu- Medrol Injection, 125mg On: 17-Nov-2012 Intent (J2930)By: Jessica Tanner DO Comments: Lot #[id number]-3/15Site-right hipDose- 125 mggiven by: INÉS Fuller DO, Kathleen Eprescribed prescriptions (G8553)By: On: 17-Nov-2012 Intent Jessica Tanner DO, DO, Kathleen Rocephon Injection, 2 Gm (J0696)By: On: 17-Nov-2012 Intent Tamia Roblero LPN THER/PROPH/DIAG IV INF, INIT On: 16-Nov-2012 Intent ([id number])By: Clemencia Ferreira DO Comments: lot # [id number]- 03/21site-Rantecubital fossaroute-IVdose- 2GCHenderson INÉS Solu -Medrol Injection, 125 mg On: 16-Nov-2012 Intent (J2930)By: Clemencia Ferreira DO Comments: Lot:[id number]:Dose:125mgRoute:IMSite:l hipGiven By:HUYEN signed INFUSION, NORMAL SALINE SOLUTION , On: 16-Nov-2012 Intent 250 CC (J7050)By: Clemencia Ferreira DO Rocephin Injection, 2 Gram On: 16-Nov-2012 Intent (J0696)By: Clemencia Ferreira DO Pulse Oximetry (55519)By: Rubin, On: 16-Nov-2012 Intent Brooke Comments: 95% Eprescribed prescriptions (G8553)By: On: 16-Nov-2012 Intent Brooke Conklin Aerosol Treatment (18248)By: Ciesa On: 09-Nov-2012 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, 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 FLU VAC, SPLIT, >3 YEARS, INTRAMUSC On: 28-Sep-2012 Intent (16615)By: Nell Yeager CNP Comments: Lot:[id number]:6.30.13Dose:0.5mLRoute:IMSite:L DltdGiven By:Willie signed ADMINISTRATION OF INFLUENZA VIRUS On: 28-Sep-2012 Intent VACCINE (G0008)By: Nell Yeager CNP SPECIMEN HANDLING/TRANSPORT On: 28-Sep-2012 Intent (15543)By: Elissa Wallace LPN SPECIMEN HANDLING/TRANSPORT On: 07-Sep-2012 Intent (35987)By: Elissa Wallace LPN Radiology - Chest- PA and LatBy: On: 08-Jun-2012 Intent Fast DO, Clemencia A ZOST[place] VACC, [place] (54004)By: Rubin On: 28-Apr-2012 Intent Brooke Comments: pt [facility] 04[facility]2012 Eprescribed prescriptions (G8553)By: On: 20-Apr-2012 Intent Fast DO, Clemencia A EKG (39313)By: Brooke Conklin On: 20-Apr-2012 Intent Comments: ekg showed normal sinus rhythym, normal axis, no acute st/t wave changes Spirometry (49016)By: Rubin On: 20-Apr-2012 Intent Brooke Comments: good effort and curve normal Eprescribed prescriptions (G8553)By: On: 16-Mar-2012 Intent Fast DO, Clemencia A Eprescribed prescriptions (G8553)By: On: 16-Mar-2012 Intent Fast DO, Clemencia A Eprescribed prescriptions (G8553)By: On: 29-Jan-2012 Intent Fast DO, Clemencia A Eprescribed prescriptions (G8553)By: On: 27-Nov-2011 Intent Ciro DO, Jessica Ciro DO, Jessica PNEUM VAC ADLT/IMUMNOSPR, SBC/INTRM On: 19-Aug-2011 Intent (80494)By: Brooke Conklin Comments: Lot #:[id number] date:mount given:0.5mlRoute: IMSite given:left deltGiven by: Jpatterson, MA ADMINISTRATION OF PNEUMOCOCCAL On: 19-Aug-2011 Intent VACCINE (G0009)By: Brooke Conklin ADMINISTRATION OF INFLUENZA VIRUS On: 04-Aug-2011 Intent VACCINE (G0008)By: Brooke Conklin FLU VAC, SPLIT, >3 YEARS, INTRAMUSC On: 04-Aug-2011 Intent ([id number])By: Brooke Conklin Radiology - Chest- PA and LatBy: On: 30-Jan-2011 Intent Clemencia Ferreira DO A Aerosol Treatment (02247)By: Toy On: 10-Nov-2010 Intent Nell KLINE Pulse Oximetry (33728)By: Toy KLINE, On: 10-Nov-2010 Intent Soniya TDAP VACCINE >7 IM (80612)By: Ron On: 21-Oct-2010 Intent Carla CONTE Comments: Lot #[id number]/13Site-L arm, IMDose prefilled syringegiven by:LISA Radiology - Chest- PA and LatBy: On: 07-Oct-2010 Intent Clemencia Ferreira DO Spirometry (54353)By: Rubin, On: 07-Oct-2010 Intent Brooke Comments: good effort and curve normal DXA, BONE DENSITY, AXIAL SKELETON On: 07-Oct-2010 Intent (50423)By: Clemencia Ferreira DO Comments: vikas IMMUNIZ ADMNIN, 1 VAC, SNGL/COMBO On: 07-Oct-2010 Intent (80121)By: Brooke Conklin Comments: Lot #[id number]-3/11Site-L armDose0.5mlgiven by:LISA FLU VAC, SPLIT, >3 YEARS, INTRAMUSC On: 07-Oct-2010 Intent (00340)By: Brooke Conklin Solu -Medrol Injection, 125 mg On: 06-Aug-2010 Intent (J2930)By: Nell Yeager CNP Pulse Oximetry (29286)By: Toy KLINE, On: 06-Aug-2010 Intent Soniya Aerosol Treatment (21533)By: Toy On: 06-Aug-2010 Intent Nell KLINE EKG (32789)By: Clemencia Ferreira DO On: 07-Jul-2010 Intent Comments: ekg showed normal sinus rhythym, normal axis, no acute st/t wave changes EKG (60700)By: Brooke Conklin On: 03-Apr-2010 Intent Comments: ekg showed normal sinus rhythym, normal axis, no acute st/t wave changes FLU VAC, SPLIT, >3 YEARS, INTRAMUSC On: 05-Aug-2009 Intent (31898)By: Brooke Conklin Comments: Lot #:[id number] date:mount given:0.5mlRoute: IMSite given:left deltGiven by: BEBA Higgins IMMUNIZ ADMNIN, 1 VAC, SNGL/COMBO On: 05-Aug-2009 Intent (35970)By: Brooke Conklin Solu -Medrol Injection, 125 mg On: 04-Jul-2009 Intent (J2930)By: Nell Yeager CNP Comments: Lot #: [id number] date: 02/17Amount given: 125 mg/2 mlRoute: IMSite given: Right hipGiven by: Fernie Singleton LPN Spirometry (69513)By: Rubin, On: 07-May-2009 Intent Brooke Comments: good effort and curve normal Ultrasound - PelvisBy: Jhon JACQUES, On: 04-Feb-2009 Intent Clemencia Enciso Radiology - ChestBy: Clemencia Ferreira DO On: 04-Feb-2009 Intent A Comments: pa and lat Pulse Oximetry (81380)By: Toy KLINE On: 30-Jan-2009 Intent Nell Cerna Aerosol Treatment (09496)By: Toy On: 30-Jan-2009 Intent Nell KLIEN EKG (45666)By: Brooke Conklin On: 18-Dec-2008 Intent Comments: ekg showed normal sinus rhythym, normal axis, no acute st/t wave changes DXA, BONE DENSITY, AXIAL SKELETON On: 07-Sep-2008 Intent (12497)By: Clemencia Ferreira DO A FLU VAC, SPLIT, >3 YEARS, INTRAMUSC On: 07-Sep-2008 Intent (53976)By: Brooke Conklin Comments: Lot #:[id number] date:04/16Amount given:0.5mlRoute: IMSite given:left delGiven by: BEBA Higgins IMMUNIZ ADMNIN, 1 VAC, SNGL/COMBO On: 07-Sep-2008 Intent (80471)By: Brooke Conklin Radiology - Knee - Left - Weight On: 30-Jul-2008 Intent BearingBy: Clemencia Ferreira DO Comments: with sunrise view Spirometry (12401)By: Rubin On: 06-Mar-2008 Intent Brooke Comments: good effort and curve normal Pulse Oximetry (91029)By: Rubin, On: 06-Mar-2008 Intent Brooke Comments: 98% Aerosol Treatment (83407)By: Ciro On: 13-Feb-2008 Jessica Combs DO, DO, Kathleen Solu- Medrol Injection, 125mg On: 13-Feb-2008 Intent (J2930)By: Jessica Tanner DO Comments: Lot #: [id number] date: mount given: 125 mg/2 mlRoute: IMSite given: Right hipGiven by: INÉS Sabillon DO, Kathleen Pulse Oximetry (15672)By: Khai On: 13-Feb-2008 Intent KRISHNA EKG (24498)By: Brooke Conklin On: 29-Nov-2007 Intent Comments: ekg showed normal sinus rhythym, normal axis, no acute st/t wave changes IMMUNIZ ADMNIN, 1 VAC, SNGL/COMBO On: 02-Sep-2007 Intent (97930)By: Kenia Fernandez FLU VAC, SPLIT, >3 YEARS, INTRAMUSC On: 02-Sep-2007 Intent (53182)By: Kenia Fernandez Radiology - Chest- PA and LatBy: On: 09-Aug-2007 Intent Clemencia Ferreira DO Spirometry (93380)By: Jhon JACQUES, On: 09-Aug-2007 Intent Clemencia Enciso Comments: good effort and curve with mild airway obstruction Pneumovax (73210)By: Clemencia Ferreira DO On: 09-Aug-2007 Intent A Comments: given im in left deltoid lot #[id number] exp.09/02/08-aw EKG (56314)By: Clemencia Ferreira DO On: 20-Oct-2006 Intent Comments: ekg showed normal sinus rhythym, normal axis, no acute st/t wave changes PNEUM VAC ADLT/IMUMNOSPR, SBC/INTRM On: 27-Sep-2006 Intent (09241)By: KRISHNA Ridley IMMUNIZ ADMNIN, 1 VAC, SNGL/COMBO On: 27-Sep-2006 Intent (58770)By: KRISHNA Ridley FLU VAC, SPLIT, >3 YEARS, INTRAMUSC On: 23-Sep-2006 Intent (03226)By: Kenia Jauregui IMMUNIZ ADMNIN, 1 VAC, SNGL/COMBO On: 23-Sep-2006 Intent (57057)By: Kenia Jauregui Spirometry (69951)By: Jhon DO, On: 22-Sep-2006 Intent Clemencia A Comments: was normal with normal curve and effort -but pt with a definitive bronchospastic cough Overnight Pulse OX (37994)By: Jhon On: 22-Sep-2006 Intent DO, Clemencia A Planned Medications INFUSION, NORMAL SALINE SOLUTION , 250 CC Ordered: 16-Nov-2012 Pending Fast DO, Clemencia A INJECTION, CEFTRIAXONE SODIUM, PER 250 MG Ordered: 16-Nov-2012 Pending Fast DO, Clemencia A INJECTION, CEFTRIAXONE SODIUM, PER 250 MG Ordered: 17-Nov-2012 Pending aTmia Roblero LPN INJECTION, CEFTRIAXONE SODIUM, PER 250 MG Ordered: 18-Nov-2012 Pending Tamia Roblero LPN INJECTION, KETOROLAC TROMETHAMINE, PER 15 MG Ordered: 04-Jan-2013 Pending Jessica Tanner DO Ciro DO, Jessica INJECTION, METHYLPREDNISOLONE SODIUM SUCCINATE, UP TO 125 MG Ordered: 16-Nov-2012 Pending Fast DO, Clemencia A INJECTION, METHYLPREDNISOLONE SODIUM SUCCINATE, UP TO 125 MG Ordered: 17-Nov-2012 Pending Ciro DODionneJessica Ciro DO, Jessica INJECTION, METHYLPREDNISOLONE SODIUM SUCCINATE, UP TO 125 MG Ordered: 18-Nov-2012 Pending Tamia Roblero LPN INJECTION, METHYLPREDNISOLONE SODIUM SUCCINATE, UP TO 125 MG Ordered: 21-Nov-2012 Pending Fast DO, Clemencia A INJECTION, METHYLPREDNISOLONE SODIUM SUCCINATE, UP TO 125 MG Ordered: 23-Nov-2012 Pending Essie Fletcher LPN INJECTION, METHYLPREDNISOLONE SODIUM SUCCINATE, UP TO 125 MG Ordered: 13-Aug-2014 Pending Nell Yeager CNP INJECTION, METHYLPREDNISOLONE SODIUM SUCCINATE, UP TO 125 MG Ordered: 05-Jun-2015 Pending Clemencia Ferreira DO Instructions Name Dates Details Nonsmoker : How [...] in the urine) Encounters Office Visit On: 02-Nov-2018 13:39 Encounter Reason: [...] a sinus flare up and went to [place] -- been home and fine other than [...] does not have durable power of deputy attorney general or living will. The patient has noticed nothing from the geriatic depression scale. Other providers contributing to the patient's care are java scala developer, gastrologist, chemical technician and surgeon.Encounter Diagnosis: Nonsmoker, BMI 30.0-30.9,adult, Annual [...] does not have durable power of deputy attorney general or living will. The patient has noticed nothi ng from the geriatic depression scale. 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 The symptoms have been associated with hoarseness [...] medical issues: bp is good still seeing urbano for cough he may scope her because [...] and [facility] d[facility] has good energy level and is [...] for chronic medical issues: she s aw urbano- and her cough better some draiange - [...] - Celia larkin was the doc in [place]-- no trauma- noticed this inlast 3-4 months [...] discharge. Note for Rash: Pt was outside [employer] [place].- she was exposed to poison [...] her of recent URI's that occured from [place] and believes End: 03-Apr-2010 15:49 its allergy [...] weight :. 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
--- OUTSIDE RECORDS SUMMARY | 2019-01-30 01:52 | XMS RPT_ITS | Continuity of Care Document ---
:1945 Author Organization [facility] Address [facility] 2 [place] [address] Phone Care Team Providers Name Role Phone Ciro DO, Jessica Unavailable Migue Josemanuel JACQUES Gretta Unavailable Ken Larkin Unavailable Dr. Zander López Unavailable Jhon Clemencia Unavailable Alex Clement Unavailable Long Carla CONTE Unavailable Unavailable INÉS Roblero Unavailable Unavailable Kristy Hinton Unavailable Unavailable Rosemarie Osorio Unavailable Unavailable Scientific Aide, System Unavailable Unavailable Unavailable Unavailable Problems Name Dates Details Abnormal glucose tolerance test (R73.02, 790.22) Comments: diet andex Status: Active Abnormal liver ultrasound (R93.2, 793.3) Status: Active Acute bronchitis due to other specified organisms (J20.8, 466.0) Status: Active Acute embolism and thrombosis of unspecified deep veins of unspecified lower extremity (I82.409, 453.40) Comments: DVT and FE9773?? 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 Annual Medicare Phyiscal WITHOUT abnormal findings (Renamed from Encounter for general adult medical examination without abnormal findings) (Z00.00, V70.9) Status: Active Asthma (J45.909, 493.90) Comments: managed by [facility] Status: Active Asthma with acute exacerbation [...] but resumes when she goes back to [facility] -- will need to chg her [...] present regimenleft fibula fracture from fall in [place] May 22 2011Lateroal malleolus fracture Status: Active [...] of the upper respiratory tract) (J06.9, 465.9) Status: Active Medications Name Dates Details CALCIUM 600 + D, 215-071DR-PBTH (Oral Tablet) 1 BID for 0 days [...] PROBIOTIC (Oral Capsule) 1 cap daily Active VITAMIN D3, 2000UNIT (Oral Capsule) 1 [...] 1 for 0 days Refills: 0 Ordered:30-Jan-2009 ALEXX RidleyAINE Start : 30-Jan-2009 End : 14-Oct-2009 Inactive [...] days Quantity: 10 {Tablet} Refills: 0 Ordered:30-Jul-2008 Jhon Clemencia Start : 30-Jul-2008 End : 18-Dec-2008 Inactive BACTRIM DS, 800-160MG (Oral Tablet) 1 Tablet bid for 7 days Quantity: 14 {Tablet} Refills: 0 Ordered:24-Jun-2011 Toy KLNIE Soniya Start : 24-Jun-2011 End : 01-Jul-2011 Inactive BIAXIN XL PAC, 500MG (Oral Tablet Extended Release 24 Hour) 1 Tablet ER 24HR bid for 14 days Quantity: 28 {Tablet_ER_24HR} Refills: 0 Ordered:06-Aug-2010 Toy KLINE Soniya Start : 06-Aug-2010 End : 20-Aug-2010 Inactive [...] Quantity: 120 {Milliliter} Refills: 0 Ordered:10-Dec-2016 Long Carla CONTE Start [...] days Quantity: 28 {Tablet} Refills: 0 Ordered:29-Oct-2017 Alenafernie Nell KLINE Start : 29-Oct-2017 End : 12-Nov-2017 Inactive [...] Start : 20-Dec-2012 End : 11-Jan-2013 Inactive Zithromax Z-Reji 250 MG Oral Tablet 1 Tablet TAD for 0 days Quantity: 1 {Package} Refills: 0 Ordered:10-Dec-2016 Long INÉS, Carla L Start : 28-Oct-2016 End : 10-Dec-2016 Inactive ADVAIR DISKUS, 100-50MCG/DOSE (Inhalation Miscellaneous) 1 [...] days Quantity: 10 {Tablet} Refills: 0 Ordered:19-Jul-2013 Jhon JACQUES, Clemencia A Start : 19-Jul-2013 End : [...] 10-Nov-2010 Discontinued Comments:This order discontinued per [employer]. GUAIATUSSIN AC, 100-10MG/5ML (Oral Syrup) 1 Syrup QID/PRN for 0 days Quantity: 6 {Ounce(s)} Refills: 0 Ordered:28-Jan-2007 Brooke Conklin Start : 28-Jan-2007 End : 09-May-2007 Discontinued HYCODEN (Oral Syrup) (Free Text) 1 tsp q 6 hr prn for 0 days Quantity: 90 ml Refills: 0 Ordered:29-Nov-2012 Jhon JACQUES Clemencia A Start : 29-Nov-2012 End : 29-Nov-2012 Discontinued Comments:ninety NASACORT AQ, 55MCG/ACT (Nasal Aerosol) 1 (one) Aerosol Aerosol TAD for 0 days Quantity: 1 {Bottle} Refills: 0 Ordered:09-Aug-2015 Brooke Conklin Start : 25-Feb-2015 End : 09-Aug-2015 Discontinued Comments:This order discontinued per [employer]. NYSTATIN, 858386QQOX/ML (Mouth/Throat Suspension) 5cc Suspension qid for 10 [...] {Tablet} Refills: 0 Ordered:29-Nov-2012 Clemencia Ferreira DO A Start : 29-Nov-2012 End : 29-Nov-2012 [...] days Quantity: 90 {Tablet} Refills: 3 Ordered:21-Nov-2013 Jhon JACQUESClemencia Fernie Start : 21-Nov-2013 End : 21-Nov-2013 Discontinued [...] 05/23CT scan abdomen: 05/23: no liver abnormalitiesSaw Colearti and he recomended CT scan yearly, next [...] Completed Comments: lt 03/25 Date Value Details 21-Jul-2018 Orthopedic Visit Report Result: Comments: See Note; NOTES: [facility] Orthopaedics AND Sports Medicine [address] [place] [address] OFFICE VISIT Date of Service: 07/12/18 MR#: [id number] Acct: [id number] Name: SUE HAWTHORNE Rep #: [id number] : 1945 Provider: Ginny Currie DO Age/Sex: 72/F Location: [facility] Status: Signed Intake Intake Visit Reasons: right [...] Never smoker HPI right foot: Details: SUE Castorena is a 72 year old F here [...] 3 Diagnoses Right foot pain M79.671 07/21/18 1644 <Electronically signed by Ginny Currie DO> Date Ginny Ro igner Signature: Date (if applicable) CC: 12-Jul-2018 Foot min 3 Views Result: Comments: See Note; NOTES: [facility] Imaging Services [address] [place] [address] Foot min 3 Views MR#: [id number] Acct: [id number] Name: SUE HAWTHORNE Rep #: [id number] : 1945 F 72 From: Mario aSlguero MD PCP: Jessica Tanner DO Status: REG CLI Study: Foot min 3 Views Date of Exam: 07/12/18 Exam# [id number] Ordering Dr: Ginny Currie DO STUDY: X-RAY [...] CC: Ginny Currie DO; Jessica Tanner DO Rn Peritoneal Dialysis: Signed 05-Jul-2018 PT D/C Summary (1) Result: Comments: See Note; NOTES: [facility] [place] [address] Fax REHABILITATION SERVICES [facility] SUMMARY MR#: [id number] Acct: [id number] Name: SUE HAWTHORNE Rep #: [id number] : 1945 72 From: Violetta Lazcano PT, Cert. MDT Referring DrMireille: Josemanuel Brady DO Status: REG RCR Insurance: MEDICAR E PART A B [facility] - PT D/C Summary It has [...] HAS GOOD ELBOW FLEX/EXT STRENGTH AND LEFT DATABASE SUPPORT STRENGTH = 45 LBS COMPARED TO 55LBS ON HER DOMINANT HAND (R). LE FT SHOULDER FLEX STRENGTH IS 3-/5, SCAPTION 2+/5, IR 3-/5, ER 2-/5. OVER-ALL AT ALMOST 12 WEEKS POST OP SHE HAS EXCEEDED MY EXPECTATIONS. DASH SCORE HAS IMPROVED SINCE LAST RE-CHECK FROM 68 TO 40. [facility]REG[facility]OS[facility] COMMUNIC[employer] A GOOD UNDERSTANDING OF PROTOCOL FOR [...] please feel free to call me at [phone]. Thank you for the referral of this patient. Sincerely, Violetta Lazcano <Electronically signed by Violetta Lazcano PT, Cert. MDT> 07/05/18 1348 CC: Jessica Ciro DO; Josemanuel Abreu DO HUSSEIN Signed 20-Jun-2018 Orthopedic Visit Report Result: Comments: See Note; NOTES: [facility] [address] [place] [address] OFFICE VISIT Date of Service: 06/07/18 MR#: [id number] Acct: [id number] Name: SUE HAWTHORNE Rep #: [id number] : 1945 Provider: KRISTIN Amezquita Age/Sex: 72/F [place] [facility] Status: Signed Intake Intake Visit Reasons: f/u [...] total replacement of left shoulder Z96.612 06/20/18 7699 <Electronically signed by Ken FOSTER> Date Ken FOSTER Cosigner Signature: Date (if applicable) CC: 06-Jun-2018 Re-Evaluation - PT (1) Result: Comments: See Note; NOTES: [facility] [address] [place] [address]. [address] [place], [place] [address] Fax REEVALUATION / MEDICARE RECERTI FICATION PHYSICAL THERAPY MR#: [id number] Acct: [id number] Name: SUE HAWTHORNE Rep #: [id number] : 1945 72 From: Violetta Lazcano PT, Cert. MDT Referring DrMireille: Josemanuel Abreu DO Status: REG RCR Ins urance: MEDICARE PART A B ANTHEM Josemanuel Brady, DO, It has been my pleasure to [...] do not hesitate to contact me at [phone] by phone or if you have questions or concerns regarding this new plan of care! Sincerely, Violetta Lazcano <Electronically signed by Violetta Lazcano PT, Cert. MDT> 06/06/18 1222 CC: Jessica Tanner DO; Josemanuel Abreu DO HUSSEIN Signed For Medicare only, by signing this I certify the plan of care. Physicians Signature Date 13-May-2018 Re-Evaluation - PT (1) Result: Comments: See Note; NOTES: [facility] [address] [place] [address] Fax REEVALUATION / MEDICARE RECERTI [facility] PHYSICAL THERAPY MR#: [id number] Acct: [id number] Name: SUE HAWTHORNE Rep #: [id number] : 1945 72 From: Violetta Lazcano PT, CertMireille ADHIKARIT Referring Dr.: Josemanuel Abreu DO Status: REG RCR Ins urance: MEDICARE PART A B ANTHEM Josemanuel Abreu DO, It has been my pleasure to [...] do not hesitate to contact me at [phone] by phone or Fax: if you have questions or concerns regarding this new plan of care! Sincerely, Violetta Lazcano <Electronically signed by Violetta Lazcano PT, Cert. MDT> 05/13/18 1228 CC: Jessica Tanner DOCristin Abreu DO HUSSEIN Signed For Medicare only, by signing this I certify the plan of care. Physicians Signature Date 12-May-2018 Dexa Bone Density Study Result: Comments: See Note; NOTES: [facility] Imaging Services [address] [place] [address] Dexa Bone Density Study MR#: [id number] Acct: [id number] Name: SUE HAWTHORNE Rep #: [id number] : 1945 F 72 From: Yousif Hathaway MD PCP: Jessica Tanner DO Status: REG CLI Study: Dexa Bone Density Study Date of Exam: 05/12/18 Exam# [id number] Ordering Dr: Jessica Tanner DO ILA DY: [...] Yousif Hathaway MD at 15:14 EDT Tel [phone], Service support , CC: Jessica Tanner DO Rn Peritoneal Dialysis: Signed 05-May-2018 Orthopedic Visit Report Result: Comments: See Note; NOTES: [facility] Orthopaedics AND Sports Medicine [address] [place] [address] OFFICE VISIT Date of Service: 04/25/18 MR#: [id number] Acct: [id number] Name: SUE HAWTHORNE Rep #: [id number] : 1945 Provider: Josemanuel Abreu DO Age/Sex: 72/F [place] [facility] [place]: Signed Intake Intake Visit Reasons: LEFT SHOULDER Is patient in pain?: Yes Pain scale (1-10): 1 Allergies adhesive Adverse Reaction (Verified 04/25/18 10:57) Rash latex Adverse Reaction (Verified 04/25/18 10:57) Rash Medications Asmanex 2 puff IH DAILY 04/15/18 [History Confir med 03/28/18] Calcium Carbonate/Vitamin D3 [...] necessary unless there is an issue. Did infor m the patient there is been a [...] 2 Views Result: Comments: See Note; NOTES: [facility] Imaging Services [address] [place] [address] Shoulder min 2 Views MR#: [id number] Acct: [id number] Name: SUE HAWTHORNE Rep #: [id number] : 1945 F 72 From: Mario Salguero MD PCP: Jessica Tanner DO Status: REG CLI Study: Shoulder min 2 Views Date of Exam: 04/25/18 Exam# [id number] Ordering Dr: Josemanuel Abreu DO STUDY: X-RAY [...] CC: Jessica Tanner DO; Josemanuel Abreu DO Rn Peritoneal Dialysis: Signed 06-Apr-2018 Orthopedic Visit Report Result: Comments: See Note; NOTES: [facility] Orthopaedics AND Sports Medicine [address] [place], [place] [address] OFFICE VISIT Date of Service: 03/28/18 MR#: [id number] Acct: [id number] Name: SUE HAWTHORNE Rep #: [id number] : 1945 Provider: Josemanuel Abreu DO Age/Sex: 72/F Location[place] [facility] Status: Signed Intake Intake Visit Reasons: LEFT [...] - PT Result: Comments: See Note; NOTES: [facility] [address] [place] [address]. [address] [place] [address] Fax REHABILITATION SERVICES INITIAL EVALUATION MR#: [id number] Acct: [id number] Name: SUE HAWTHORNE Rep #: [id number] : 1945 72 From: Violetta Lazcano PT, Cert. MDT Referring Dr.: Josemanuel Abreu DO Status: REG RCR Insurance: MEDICA RE PART A B [facility] Patient's Visit Information SUE HAWTHORNE is a [...] OR CROSS BODY MOVEMENT - SEE THE [facility] REVERSE TOTAL SHOULDER ARTHROPLASTY PROTOCOL IN FOLDER. MOIST HEAT AND COLD PACK TREATMENTS NEEDED. POSTURE CORRECTION/STRENGTHENING, INSTRUCTION IN APPROPRIA TE BODY MECHANICS AND ACTIVITY MODIFICATIONS. KIMBERLI UE ROM, STRETCHING AND STRENGTHENING. HEP INSTRUCTION. - Subjective Subjective: Diagnosis: LEFT RTSA WITH SUBSCAP REPAIR. MAR 15 2018 (2 WEEKS PO). Work /Leisure: RETIRED. [employer] EVERY OTHER MONTH ONE DAY. 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 RSB: . LSB: . R Rot: MOD. L Rot: MOD. Postural [...] be FAXED BACK to u s at [phone] for Medicare purposes. Please let me know if there are questions or concerns regarding this plan of care. Physician Signature: Date: <Electronically signed by Violetta Lazcano PT, Cert. MDT> 03/30/18 1657 CC: Jessica Tanner DOCristin Abreu DO HUSSEIN Signed For Medicare only, b y signing this I certify the plan of care. Physicians Signature Date 28-Mar-2018 Foot 2 Views Result: Comments: See Note; NOTES: [facility] Imaging Services [address] [place] [address] Foot 2 Views MR#: [id number] Acct: [id number] Name: SUE HAWTHORNE Rep #: [id number] : F 72 From: Brett Hedrick DO PCP: Jessica Tanner DO Status: REG CLI Study: Foot 2 Views Date of Exam: 03/28/18 Exam# [id number] Ordering Dr: Josemanuel Abreu DO STUDY: X-RAY [...] Brett Hedrick DO at 17:03 EDT Tel [phone], Service support , CC: Jessica Tanner DO; Josemanuel Abreu DO Rn Peritoneal Dialysis: Signed 28-Mar-2018 Shoulder min 2 Views Result: Comments: See Note; NOTES: [facility] Imaging Services [address] [place] [address] [place] [address] Shoulder min 2 Views MR#: [id number] Acct: [id number] Name: SUE HAWTHORNE Rep #: [id number] : 1945 F 72 From: Brett Hedrick DO PCP: Jessica Tanner DO Status: REG CLI Study: Shoulder min 2 Views Date of Exam: 03/28/18 Exam# [id number] Ordering Dr: Josemanuel Abreu DO STUDY: X-RAY [...] Brett Hedrick DO at 17:02 EDT Tel [phone], Service support , CC: Jessica Tanner DO; Josemanuel Abreu DO Rn Peritoneal Dialysis: Signed 23-Mar-2018 Orthopedic Visit Report Result: Comments: See Note; NOTES: [facility] Orthopaedics AND Sports Medicine [address] [place] [address] OFFICE VISIT Date of Service: 03/11/18 MR#: [id number] Acct: [id number] Name: HERMILA HAWTHORNEKARTHIK Ohara Rep #: [id number] : 1945 Provider: Josemanuel Abreu DO Age/Sex: 72/F [place] [facility] [place]: Signed Intake Intake Visit Reasons: LEFT [...] humerus with rout ine healing, subsequent encounter S42.529D Plan Assessment: Left closed 4 part proximal [...] which is not my opinion quite likely. Pat ient has been informed that there is always [...] Lead Electrocardiogram Result: Comments: See Note; NOTES: [facility] Cardiovascular Services [address] [place] [address] 12 Lead EKG 03/04/18 1116 MR#: [id number] Acct: [id number] Name: SUE HAWTHORNE Rep #: [id number] : 1945 72 From: Trey Bob MD Attending Dr: Ginny Currie DO [place] [facility] [place]: Ginny Currie DO Date: 03/04/18 [place] [facility] Sex: F C Admitted: Test Reason : [...] Abnormal ECG Confirmed by TREY BOB ([id number]), writer editor REA DIAS ([id number]) on 03/08/2018 4:08:06 PM Referred By: Ginny Currie Confirmed By:TREY BOB 03/08/18 1608 Date Trey Bob MD CC: Ginny Currie DO; Jessica Tanner DO Signed 02-Mar-2018 Coronals Sag Multi Obl 3-D Rec Result: Comments: See Note; NOTES: [facility] Imaging Services [address] [place] [address] Coronals Sag Multi Obl 3-D Rec MR#: [id number] Acct: [id number] Name: SUE HAWTHORNE Rep #: [id number] : 1945 F 72 From: Kapil Gonzales MD PCP: Jessica Tanner DO Status: REG CLI Study: Coronals Sag Multi Obl 3-D Rec Date of Exam: 03/02/18 Exam# [id number] Ordering Dr: Nicole Currie DO ADDENDUM by Kapil Gonzales MD on 03/02/[address]/Coronals Sag Multi Obl 3-D Rec IMPRESSION: Impacted, comminuted, mildly displaced, intra-articular fracture of the proxim al humerus involving the neck and tuberosities Nondisplaced fracture at the coracoid process Electronically Signed: aKpil Gonzales MD at 21:56 EDT Tel , Service support [phone], 03/02/18 3592 Date cc: Ginny Currie DO; Jessica Tanner DO * Signed ADDENDUM by Kapil Gonzales MD on 03/02/18 at 215 ADDENDUM There is nondisplaced fracture at the coracoid (image 17/132 axial). The remainder of the scapula is intact. 03/02/18 215 6 Date cc: Ginny Currie DO; Jessica Tanner DO * Signed STUDY: CT LEFT UPPER EXTREMITY / HUMERUS REASON FOR EXAM: Female, 72 years old. Fracture RADIATION DOSAGE (If Supplied By [facility]): CTDIvol = ( 28.83 ) mGy, DLP [...] CC: Ginny Currie DO; Jessica Tanner DO Rn Peritoneal Dialysis: Signed 02-Mar-2018 Coronals Sag Multi Obl 3-D Rec Result: Comments: See Note; NOTES: [facility] Imaging Services [address] [place] [address] Coronals Sag Multi Obl 3-D Rec MR#: [id number] Acct: [id number] Name: SUE HAWTHORNE Rep #: [id number] : 1945 F 72 From: Kapil Gonzales MD PCP: Jessica Tanner DO Status: REG CLI Study: Coronals Sag Multi Obl 3-D Rec Date of Exam: 03/02/18 Exam# [id number] Ordering Dr: Nicole Currie DO STUDY: CT [...] Tel , Service support , CC: Ginny Tanner DO Rn Peritoneal Dialysis: Signed 02-Mar-2018 Extremity Upper without Contra Result: Comments: See Note; NOTES: [facility] Imaging Services [address] [place] [address] Extremity Upper without Contra MR#: [id number] Acct: [id number] Name: SUE HAWTHORNE Rep #: [id number] : 1945 F 72 From: Kapil Gonzales MD PCP: Jessica Tanner DO Status: REG CLI Study: Extremity Upper without Contra Date of Exam: 03/02/18 Exam# [id number] Ordering Dr: Nicole Currie DO ADDENDUM by Kapil Gonzales MD on 03/02/[address]/Extremity Upper without Contra IMPRESSION: Impacted, comminuted, mildly displaced, intra-articular fracture of the proxim al humerus involving the neck and tuberosities Nondisplaced fracture at the coracoid process Electronically Signed: Kapil Gonzales MD at 21:56 EDT Tel , Service support [phone], 03/02/183 Date cc: Ginny Currie DO; Jessica Tanner [...] old. Fracture RADIATION DOSAGE (If Supplied By [facility]): CTDIvol = ( 28.83 ) mGy, DLP [...] CC: Ginny Currie DO; Jessica Tanner DO Rn Peritoneal Dialysis: Signed 02-Mar-2018 Extremity Upper without Contra Result: Comments: See Note; NOTES: [facility] Imaging Services [address] [place] [address] Extremity Upper without Contra MR#: [id number] Acct: [id number] Name: SUE HAWTHORNE Rep #: [id number] : 1945 F 72 From: Kapil Gonzales MD PCP: Jessica Tanner DO Status: REG CLI Study: Extremity Upper without Contra Date of Exam: 03/02/18 Exam# [id number] Ordering Dr: Nicole Currie DO STUDY: CT [...] CC: Ginny Currie DO; Jessica Tanner DO Rn Peritoneal Dialysis: Signed 01-Mar-2018 Orthopedic Visit Report Result: Comments: See Note; NOTES: [facility] Orthopaedics AND Sports Medicine [address] [place] [address] OFFICE VISIT Date of Service: 02/24/18 MR#: [id number] Acct: [id number] Name: SUE HAWTHORNE Rep #: [id number] : 1945 Provider: Ginny Currie DO Age/Sex: 72/F [place] [facility] Status: Signed Intake Intake Visit Reasons: LEFT [...] proximal end of left humerus, initial encounter S40.147K Plan X-rays were reviewed. There is displaced [...] ADLs. Reviewed the pre-operative plans with the rose castorena. Risks and benefits of the procedure were [...] 3 Views Result: Comments: See Note; NOTES: [facility] Imaging Services [address] [place] [address] Elbow min 3 Views MR#: [id number] Acct: [id number] Name: SUE HAWTHORNE Rep #: [id number] DO B: 1945 F 72 From: Shanell Branch MD PCP: Jessica Tanner DO Status: REG CLI Study: Elbow min 3 Views Date of Exam: 02/24/18 Exam# [id number] Ordering Dr: Ginny Currie DO STUDY: X-RAY [...] CC: Ginny Currie DO; Jessica Tanner DO Rn Peritoneal Dialysis: Signed 24-Feb-2018 Shoulder min 2 Views Result: Comments: See Note; NOTES: [facility] Imaging Services [address] [place] [address] Shoulder min 2 Views MR#: [id number] Acct: [id number] Name: SUE HAWTHORNE Mayda Rep #: [id number] : 1945 F 72 From: Mario Salguero MD PCP: Jessica Tanner DO Status: REG CLI Study: Shoulder min 2 Views Date of Exam: 02/24/18 Exam# [id number] Ordering Dr: Ginny Currie DO STUDY: X-RAY [...] CC: Ginny Currie DO; Jessica Tanner DO Rn Peritoneal Dialysis: Signed 20-Feb-2018 Discharge Instruction Result: Comments: See Note; NOTES: [facility] Medical Records Department [address] [place] [address] Discharge Instruction 02/20/18 1358 MR#: [id number] Acct: [id number] Name: ESTRELLITA HAWTHORNE Rep #: [id number] : 1945 72 From: Chelle Zaragoza MD [...] problems, contact your Primary Care Provider. Call [facility] ([phone]) or report to the closest Emergency Room. Call 911 if necessary. 02/20/18 1401 <Electronically signed by Chelle Zaragoza MD&amp ;#62; Date Chelle Zaragoza MD Cosigner Signature (If Indicated): Date CC: Jessica Tanner DO 20-Feb-2018 Emergency Department Summary Result: Comments: See Note; NOTES: [facility] Medical Records Department [address] [place] [address] Emergency Department Summary 02/20/18 1128 MR#: [id number] Acct: [id number] Name: SUE HAWTHORNE Rep #: [id number] : 1945 72 From: Chelle Zaragoza MD [...] mechanical fall This note was generated with [employer] dictation software. It may contain incorrect words, spelling, and punctuation that were not noted in review of the chart prior to signing ED Disposition - Plan for ED Patie nt: Chief Complaint: Fall Referrals: Jessica Tanner, [Primary Care Provider] - What to do if you have Problems For any increased pain, shortness of breath, bleeding, nausea or vomiting, chest pa in, or any unexpected problems, contact your Primary Care Provider. Call [facility] ([phone]) or report to the closest Emergency Room. Call 911 if necessary. 02/20/18 1359 <Kade lujan signed by Chelle Zaragoza MD> Date Chelle Zaragoza MD Cosigner Signature (If Indicated): Date CC: Jessica Tanner DO 20-Feb-2018 Foot min 3 Views Result: Comments: See Note; NOTES: [facility] Imaging Services [address] [place] [address] Foot min 3 Views MR#: [id number] Acct: [id number] Name: SUE HAWTHORNE Rep #: [id number] : 1945 F 72 From: Rona Bowen MD PCP: Jessica Tanner DO Status: PRE ER Study: Foot min 3 Views Date of Exam: 02/20/18 Exam# [id number] Ordering Dr: Chelle Zaargoza MD STUDY: X-RAY - RIGHT FOOT CLINICAL: [...] CC: Chelle Zaragoza MD; Jessica Tanner DO Rn Peritoneal Dialysis: Signed 20-Feb-2018 Shoulder min 2 Views Result: Comments: See Note; NOTES: [facility] Imaging Services [address] [place] [address] Shoulder min 2 Views MR#: [id number] Acct: [id number] Name: SUE HAWTHORNE Rep #: [id number] : 1945 F 72 From: Rona Bowen MD PCP: Jessica Tanner DO Status: PRE ER Study: Shoulder min 2 Views Date of Exam: 02/20/18 Exam# [id number] Ordering Dr: Chelle Zaragoza MD STUDY: X-RAY [...] CC: Chelle Zaragoza MD; Jessica Tanner DO Rn Peritoneal Dialysis: Signed 22-Feb-2017 Chest PA and Lateral Result: Comments: See Note; NOTES: [facility] Imaging Services [address] [place] [address] Verdana 4d Chest PA and Lateral MR#: [id number] Acct: [id number] Name: SUE HAWTHORNE Rep # : [id number] : 1945 F 71 From: Naomi Strauss MD PCP: Jessica Tanner DO Status: REG CLI Study: Chest PA and Lateral Date of Exam: 02/22/17 Exam# [id number] Ordering Dr: Tamia Wood ILA DY: X-RAY CHEST REASON FOR EXAM: [...] , CC: Tamia Wood; Jessica Tanner DO Rn Peritoneal Dialysis: Signed 12-Nov-2016 Abdomen/Pelvis WITH Contrast Result: Comments: See Note; NOTES: [facility] Imaging Services [address] [place] [address] Verdana 4d Abdomen/Pelvis WITH Contrast MR#: [id number] Acct: [id number] Name: SUE HAWTHORNE Rep #: [id number] : 1945 F 71 From: Brett Hedrick DO PCP: Doug Barrett Status: REG CLI Study: Abdomen/Pelvis WITH Contrast Date of Exam: 11/12/16 Exam# [id number] Ordering Dr: Doug Barrett ILA DY: CT [...] Brett Hedrick DO at 15:08 EST Tel [phone], Service support [phone], CC: Doug Barrett Rn Peritoneal Dialysis: Signed 30-Jun-2016 Wrist min 3 Views Result: Comments: See Note; NOTES: [facility] Imaging Services [address] [place] [address] Verdana 4d Wrist min 3 Views MR#: [id number] Acct: [id number] Name: SUE HAWTHORNE Rep #: [id number] : 1945 F 70 From: Omar Salazar MD PCP: Clemencia Ferreira DO Status: REG CLI Study: Wrist min 3 Views Date of Exam: 06/30/16 Exam# [id number] Ordering Dr: Ginny Currie DO STUDY: X-RA [...] CR at 14:28 EDT , Service support [phone], CC: Ginny Currie DO; Clemencia Ferreira DO Rn Peritoneal Dialysis: Signed 29-May-2016 OT D/C Summary Result: Comments: See Note; NOTES: [facility] [address] [place], [place] [address] Fax REHABILITATIO N SERVICES DISCHARGE SUMMARY MR#: [id number] Acct: [id number] Name: SUE HAWTHORNE Rep #: [id number] : 1945 70 From: Richelle Myers Referring Dr.: Clemencia Ferreira DO Status: REG RCR Eval D ate: Discharge Date: - OT D/C Summary It has been [...] and tripod increased from 4# to 8# tobacco baler did not change - Goals Patient Goals: [...] please fell free to call me at [phone]. Thank you for the referral of this patient. Sincerely, Richelle Myers <Electronically signed by Richelle Myers > 05/29/16 1224 CC: Clemencia Ferreira DO MK Signed 13-May-2016 OT General Evaluation Result: Comments: See Note; NOTES: [facility] [address] [place], [place] [address] Fax REHABILITATIO N SERVICES INITIAL EVALUATION MR#: [id number] Acct: [id number] Name: SUE HAWTHORNE Rep #: [id number] : 1945 70 From: Richelle Myers Referring DrMireille: Clemencia Ferreira DO Status: REG RCR Insur [...] Wrist: left 60/65 Right 60/50 - Strength Bookkeeping Teacher: left 55# right 60# Lateral Pinch: left [...] It will need to be FAXED BA to us at [phone] for Medicare purposes. Please let me know if there are questions or concerns regarding this plan of care. Physician Signature: ____Date: <Electronically signed by Richelle Myers > 05/13/16 0759 CC: Clemencia Ferreira DO MK Signed For Medicare only, by signing this I certify the plan of care. Physicians Signature Date 08-May-2016 Abdomen WITH IV Contrast Result: Comments: See Note; NOTES: [facility] Imaging Services [address] [place] [address] Verdana 4d Abdomen WITH IV Contrast MR#: [id number] Acct: [id number] Name: SUE LEVIN Rep #: [id number] : 1945 F 70 From: Ba Calvillo MD PCP: Clemencia Ferreira DO Status: REG CLI Study: Abdomen WITH IV Contrast Date of Exam: 05/08/16 Exam# [id number] Ordering Dr: Clemencia Craig DO STUDY: CT [...] MD at 16:42 EDT , Service support [phone], CC: Clemencia Ferreira DO Rn Peritoneal Dialysis: Signed 05-May-2016 Chest PA and Lateral Result: Comments: See Note; NOTES: [facility] Imaging Services [address] [place] [address] Verdana 4d Chest PA and Lateral MR#: [id number] Acct: [id number] Name: Sussy HAWTHORNE Rep #: [id number] : 1945 F 70 From: Omar Salazar MD PCP: Clemencia Ferreira DO Status: REG CLI Study: Chest PA and Lateral Date of Exam: 05/05/16 Exam# [id number] Ordering Dr: Clemencia Ferreira DO STUDY: X-RAY [...] FACR at 16:55 EDT , Service support [phone], Fax RAD/Chest PA and Lateral IMPRESSION: Normal x-ray examination of the chest. Stable since last examination. Electronically Signed: Omar Salazar MD, FACR 05/05 at 16:55 EDT , Service support [phone], CC: Clemencia Ferreira DO Rn Peritoneal Dialysis: Signed 31-May-2015 Abdomen WITH and W/O Contrast Result: Comments: See Note; NOTES: [facility] Services [address] [place] [address] MRI Report MR#: [id number] Acct: [id number] Name: SUE HAWTHORNE Rep #: [id number] D OB: 1945 F 69 From: Phani Davis MD PCP: Clemencia Ferreira DO Status: REG CLI Study: Abdomen WITH and W/O Contrast Date of Exam: 05/31/15 Exam# [id number] Ordering Dr: Clemencia Ferreira DO STUDY: MRI [...] MD at 23:52 EDT , Service support [phone], Fax CC: Clemencia Ferreira DO Rn Peritoneal Dialysis: Signed 29-May-2015 Dexa Bone Density Study (HP) Result: Comments: See Note; NOTES: [facility] Imaging Services [address] [place] [address] Bone Density Report MR#: [id number] Acct: [id number] Name: SUE HAWTHORNE Rep #: [id number] : 1945 F 69 From: Yousif Hathaway MD PCP: Clemencia Ferreira DO Status: [facility] CLI Study: Dexa Bone Density Study (HP) Date of Exam: 05/29/15 Exam# [id number] Ordering Dr: Clemencia Ferreira DO STUDY: DUAL [...] Yousif Hathaway MD at 15:45 EDT Tel [phone], Service support [phone], CC: Clemencia Ferreira DO Rn Peritoneal Dialysis: Signed 25-Apr-2015 Liver Result: Comments: See Note; NOTES: [facility] Services [address] [place] [address] Ultrasound Report MR#: [id number] Acct: [id number] Name: SUE HAWTHORNE Rep #: [id number] : 1945 F 69 From: Naomi Strauss MD PCP: Clemencia Ferreira DO Status: REG CLI Study: Liver Date of Exam: 04/25/15 Exam# [id number] Ordering Dr: Clemencia Ferreira DO STUDY: ABDOMINAL [...] 1 1:49 EDT Tel , Service support [phone], CC: Clemencia Ferreira DO Rn Peritoneal Dialysis: Signed 18-Apr-2015 Foot min 3 Views Result: Comments: See Note; NOTES: [facility] Services [address] [place] [address] Radiology Report MR#: [id number] Acct: [id number] Name: SUE HAWTHORNE Rep #: [id number] : 1945 F 69 From: Shanell Branch MD PCP: Clemencia Ferreira DO Status: REG CLI Study: Foot min 3 Views Date of Exam: 04/18/15 Exam# [id number] Ordering Dr: Ginny Currie DO STUDY: X-RAY [...] MD at 14:31 EDT , Service support [phone], RAD/Foot min 3 Views IMPRESSION: Stable arthrosis with calcaneal spurs. Near-anatomic alignment of the base of the fifth metatarsal fracture with no complications. Electronically Signed: Shanell Branch MD at 14:31 EDT , Service support [phone], CC: Ginny Currie DO; Clemencia Ferreira DO Rn Peritoneal Dialysis: Signed 12-Mar-2015 Foot min 3 Views Result: Comments: See Note; NOTES: [facility] [address] [place] [address] Radiology Report MR#: [id number] Acct: [id number] Name: SUE HAWTHORNE Rep #: [id number] : 1945 F 69 From: Shanell Branch MD PCP: Clemencia Ferreira DO Status: REG CLI Study: Foot min 3 Views Date of Exam: 03/12/15 Exam# [id number] Ordering Dr: Ginny Currie DO STUDY: X-RAY [...] 03/12 at 15:44 EDT , Service support [phone], CC: Ginny Ferreira DO Rn Peritoneal Dialysis: Signed 15-Feb-2015 Emergency Department Summary Result: Comments: See Note; NOTES: [facility] Medical Records Department [address] [place] [address] Emergency Department Summary MR#: [id number] Acct: [id number] Name: Sussy HAWTHORNE Rep #: [id number] : 1945 69 From: Stephany Francois DO [...] patient also sees an orthopedic surgeon in [place]. A LLERGIES: No known drug allergies. SOCIAL [...] a postoperative shoe, given crutches, script for Naches for pain, instructed to ice and elevate the extremity. Follow up with her orthopedic surgeon or Dr. Currie at the patient's request. DISPOSITION: Disch arged to home in stable condition. Stephany Francois DO T: NTS JOB: [id number] 02/15/15 1039 <Electronically signed by Stephany Francois DO> Date Stephany Francois DO CC: Clemencia Ferreira DO Date Dictated: 02/05/151752 Date Transcribed: 02/05/151752 Rn Peritoneal Dialysis: Signed 12-Feb-2015 Foot min 3 Views Result: Comments: See Note; NOTES: [facility] Services [address] [place] [address] Radiology Report MR#: [id number] Acct: [id number] Name: SUE HAWTHORNE Rep #: [id number] : 1945 F 69 From: Sohan Castaneda MD PCP: Clemencia Ferreira DO Status: REG CLI Study: Foot min 3 Views Date of Exam: 02/12/15 Exam# [id number] Ordering Dr: Ginny Currie DO STUDY: X-RAY [...] at 11:36 EDT Tel , Service support [phone], RAD/Foot min 3 Views IMPRESSION: 1. Fracture of the b ase of the fifth metatarsal bone, unchanged. 2. Degenerative changes. Electronically Signed: Sohan Castaneda MD at 11:36 EDT Tel , Service support [phone], Fax CC: Ginny Currie DO; Clemencia Ferreira DO Rn Peritoneal Dialysis: Signed 05-Feb-2015 Discharge Instruction Result: Comments: See Note; NOTES: [facility] Medical Records Department [address] [place] [address] Discharge Instruction 02/05/15 175 MR#: [id number] Acct: [id number] Name: SUE HAWTHORNE Rep #: [id number] : 1945 69 From: Stephany Francois DO PCP: Clemencia Ferreira DO Status: PRE ER ED Disposition - Plan for ED Patient: Chief Complaint: Lower Extremity Injury Instruc tions: ED Fracture, Foot Prescriptions: Hydrocodone Bitart/Apap 5-325 [Naches 5/325] 1 - 2 tablet PO Q4H [...] 3 Views Result: Comments: See Note; NOTES: [facility] Imaging Services [address] [place] [address] Radiology Report MR#: [id number] Acct: [id number] Name: SUE HAWTHORNE Rep #: [id number] : 1945 F 69 From: Yousif Hathaway MD PCP: Clemencia Ferreira DO Status: DEP ER Study: Foot min 3 Views Date of Exam: 02/05/15 Exam# [id number] Ordering Dr: Malachi Sena STUDY: X-RAY - RIGHT FOOT CLINICAL: Female, [...] Yousif Hathaway MD at 8:47 EDT Tel [phone], Service support [phone], CC: Clemencia Ferreira DO; ED PHYSICIAN PROVIDER Rn Peritoneal Dialysis: Signed 07-Jun-2014 Liver Result: Comments: See Note; NOTES: [facility] Services [address] [place] [address] Ultrasound Report MR#: [id number] Acct: [id number] Name: SUE HAWTHORNE Rep #: [id number] : 1945 F 68 From: Yousif Hathaway MD PCP: Clemencia Ferreira DO Status: REG CLI Study: Liver Date of Exam: 06/07/14 Exam# [id number] Ordering Dr: Clemencia Ferreira DO STUDY: ABDOMINAL [...] Yousif Hathaway MD at 10:40 EDT Tel [phone], Service support , CC: Clemencia Ferreira DO Rn Peritoneal Dialysis: Signed Immunization Name Dates Details Influenza (3 years and up) on: 02-Sep-2007 Influenza (3 years and up) on: 07-Sep-2008 Comments: Lot #:[id number] date:04/16Amount given:0.5mlRoute: IMSite given:left delGiven by: BEBA Higgins Influenza (3 years and up) on: 05-Aug-2009 Comments: Lot #:[id number] date:mount given:0.5mlRoute: IMSite given:left deltGiven by: BEBA [...] smoker Vital Signs Date Test Result Details 6-Nol-035495:55 Temperature 97.2 f Comments: Method: Temporal Pulse [...] kg/m2 Body Surface Area Calculated 1.86 m2 22-Jvn-176715:12 Pulse 73 /min Comments: Pattern: Regular Respiration [...] kg/m2 Body Surface Area Calculated 1.86 m2 70-Kia-20549:50 Comments: orthos 144/55199/51771/78 Temperature 97.2 f Pulse 79 /min Comments: [...] kg/m2 Body Surface Area Calculated 1.86 m2 32-Dgr-462482:10 Comments: Dr. Majano and had a glaucoam test donehearing wn Pulse 76 /min Comments: Pattern: Regular Respiration [...] kg/m2 Body Surface Area Calculated 1.86 m2 3-Ujw-120995:08 Pulse 70 /min Comments: Pattern: Regular Respiration [...] kg/m2 Body Surface Area Calculated 1.85 m2 91-Ojk-889385:24 Pulse 78 /min Comments: Pattern: Regular Respiration [...] kg/m2 Body Surface Area Calculated 1.85 m2 8-Txs-452623:00 Pulse 79 /min Comments: Pattern: Regular Respiration [...] Height 0 in Head Circumference 0.00 cm 69-Kwy-662078:36 Temperature 97.1 f Comments: Method: Oral Pulse [...] Description Value Details :56 HgA1C , Office (49820) HgA1C , Office 5.5 % (Normal) Range: 4.6 - 7.1 4-Lej-740703:56 Blood Glucose , Office (27654) Blood Glucose , Office 86 (Normal) C difficile Toxins A+B, Negative (Normal) Comments: PATIENT NOT FASTINGPERFORMED BY: [facility] [id number] Information: S78319 5:32 EIA NTI Miscellaneous COMMNT (Normal) Comments: PATIENT NOT FASTINGPERFORMED BY: [facility] [id number] 5:32 Comments: Test not indicated.. Written Authorization WAR (Normal) Comments: PATIENT NOT FASTINGPERFORMED BY: [facility] Xvenjh8043 [place] [facility] [id number] 5:32 Comments: Written Authorization Received.Authorization received from Original requisition [id number] by Wednesday [facility] 46-Euw-013862:31 OCCULT BLOOD FECES Comments: PATIENT NOT FASTINGPERFORMED BY: [facility] Ovldsz5845 [place] [facility] [id number] Information: SRC:STOOL = FECAL X74075 SCREEN (30784) Occult Blood, Fecal, IA Negative (Normal) 56-Opw-944160:32 OVA & PARASITE DIR SMEAR Comments: PATIENT NOT FASTINGPERFORMED BY: [facility] Lksdor5986 [facility] [id number] (37251) Result 1 NOCP (Normal) Comments: No ova, cysts, or parasites seen. Ova + Parasite Exam Final report (Normal) Comments: These results were obtained using wet preparation(s) and trichromestained smear. This test does not include testing for Cryptosporidiumparvum, Cyclospora, or Microsporidia. 23-Yrd-553481:32 LEUKOCYTE COUNT, FECAL Comments: PATIENT NOT FASTINGPERFORMED BY: [facility] Rvonvh1130 [facility] [id number] (65457) Result 1 WCM (Abnormal) Comments: Moderate amount of white blood cells. White Blood Cells (WBC), Final report (Abnormal) Stool 32-Ool-678702:32 WON CULTURE-STOOL (93450) Comments: PATIENT NOT FASTINGPERFORMED BY: [facility] Slcbwr0463 [facility] [id number] Information: [id number] E coli Shiga Toxin EIA Negative (Normal) Result 1 NCI (Normal) Comments: No Campylobacter species isolated. Campylobacter Culture Final report (Normal) Result 1 NSS (Normal) Comments: No Salmonella or Shigella recovered. Salmonella/Shigella Screen Final report (Normal) 8-Rjq-195446:10 Blood Glucose , Office (27600) Blood Glucose , Office 79 (Normal) 2-Rre-642708:10 HgA1C , Office (62666) HgA1C , Office 5.3 % (Normal) Range: 4.6 - 7.1 9-Leq-415355:02 CBC With Differential/Platelet Comments: PATIENT WAS FASTINGPERFORMED BY: [facility] Zgyybb0407 [facility] [id number] Immature Grans (Abs) 0.0 {x10E3/uL} (Normal) Range: [...] 3.77-5.28 WBC 6.3 {x10E3/uL} (Normal) Range: 3.4-10.8 9-Adq-067527:02 Comp. Metabolic Panel (14) Comments: PATIENT WAS FASTINGPERFORMED BY: [facility]CoR[facility], Old BridgeYlamed1612 [facility] [id number] ALT (SGPT) 12 [iU]/L (Normal) Range: 0-32 [...] 8-27 Glucose 92 mg/dL (Normal) Range: 65-99 7-Wfn-527120:02 Lipid Panel With LDL/HDL Comments: PATIENT WAS FASTINGPERFORMED BY: [employer] [facility] [id number]; ov 6/7 Ratio LDL/HDL Ratio 1.5 {ratio} [...] 3.240 {uIU/mL} Comments: PATIENT WAS FASTINGPERFORMED BY: [employer] [facility] [id number] 02 (Normal) Range: 0.450-4.500 63-Dhw-492425:54 CBC-Complete Blood Cnt No Diff Comments: [facility] [address] [place], [place], [address] MPV 9.2 fL (Normal) Range: 6.2-12.0 PLT [...] 4.2-5.4 WBC 6.8 K/mm3 (Normal) Range: 4.4-11.0 7-Fwo-090101:28 HgA1C , Office (47335) HgA1C , Office 5.3 % (Normal) Range: 4.6 - 7.1 0-Yxq-798149:28 Blood Glucose , Office (83112) Blood Glucose , Office 93 (Normal) 16-Fvs-637685:26 Microscopic Examination Comments: PATIENT WAS FASTINGPERFORMED BY: [facility]Nov[facility] [id number] Bacteria None seen (Normal) Mucus Threads Present (Normal) Crystal Type Calcium Oxalate (Normal) Crystals Present (Abnormal) Cast Type Hyaline casts (Normal) Casts Present {/lpf} (Abnormal) Epithelial Cells (non renal) None seen {/hpf} (Normal) Range: 0 - 10 RBC None seen {/hpf} (Normal) Range: 0 - 2 WBC 0-5 {/hpf} (Normal) Range: 0 - 5 77-Ftf-129846:26 TSH (94042) Comments: PATIENT WAS FASTINGPERFORMED BY: [employer]70 [facility] GuardNov[facility] [id number] TSH 3.380 {uIU/mL} (Normal) Range: 0.450-4.500 91-Zsb-290439:26 URINALYSIS, W/ MICRO (47403) Comments: PATIENT WAS FASTINGPERFORMED BY: [employer] [place] [facility] [id number] Microscopic Examination See below: (Normal) Comments: Microscopic was indicated and was performed. Microscopic Examination MICRON (Normal) Comments: Microscopic follows if indicated. Nitrite, Urine Negative (Normal) Urobilinogen,Semi-Qn 0.2 mg/dL (Normal) Range: 0.2-1.0 Bilirubin Negative (Normal) Occult Blood Negative (Normal) Ketones Negative (Normal) Glucose Negative (Normal) Protein Negative (Normal) WBC Esterase Negative (Normal) Appearance Clear (Normal) Urine-Color Yellow (Normal) pH 5.0 (Normal) Range: 5.0-7.5 Specific Worth 1.025 (Normal) Range: 1.005-1.030 69-Ezb-910344:26 MICROALBUMIN: CREATININE RATIO Comments: PATIENT WAS FASTINGPERFORMED BY: [employer]70 [facility] [id number] (47747) AND (53425) Microalb/Creat Ratio 5.4 {mg/g_creat} (Normal) Range: 0.0-30.0 Creatinine, Urine 222.5 mg/dL (Normal) Microalbumin, Urine 12.1 ug/mL (Normal) 38-Xfw-951206:26 METABOLIC PANEL, COMPREHENSIVE Comments: PATIENT WAS FASTINGPERFORMED BY: [employer]70 [facility] [id number] (10766) ALT (SGPT) 38 [iU]/L (Abnormal) Range: 0-32 [...] Glucose, Serum 94 mg/dL (Normal) Range: 65-99 87-Xuk-990708:26 LIPID PANEL (07732) Comments: PATIENT WAS FASTINGPERFORMED BY: [employer]70 [facility]Nov[facility] [id number] LDL/HDL Ratio 1.6 {ratio_units} (Normal) Range: 0.0-3.2 Comments: LDL/HDL Ratio Men Women 1/2 Avg.Risk 1.0 1.5 Av g.Risk 3.6 3.2 2X Avg.Risk 6.2 5.0 3X Avg.Risk 8.0 6.1 LDL Cholesterol Calc 104 mg/dL (Abnormal) Range: 0-99 VLDL Cholesterol Sumeet 28 mg/dL (Normal) Range: 5-40 HDL Cholesterol 66 mg/dL (Normal) Triglycerides 139 mg/dL (Normal) Range: 0-149 Cholesterol, Total 198 mg/dL (Normal) Range: 100-199 63-Tfs-467444:26 CBC W/AUTO DIFF WBC (70706) Comments: PATIENT WAS FASTINGPERFORMED BY: Bionym6370 [facility]Nov[facility] [id number] Immature Grans (Abs) 0.0 {x10E3/uL} (Normal) Range: [...] Range: 3.4-10.8 :22 Blood Glucose , Office (91673) Blood Glucose , Office 102 (Normal) 4-Mwp-478535:22 HgA1C , Office (78479) HgA1C , Office 5.5 % (Normal) Range: 4.6 - 7.1 15-Apr-20178:00 Pathology Report Comments: PERFORMED BY: [facility] [place] Cyto Tfeyf26501 [facility] [id number] BY: [facility] Dermatopathology Jitjndl[address] [id number] Information: [id number] See MATER Comments: Material submitted: .RIGHT ARM [...] IN CASSETTE(S) A./LMSLMS/LMSPathologist p rovided ICD-10:L44.9, D23.61CPT .867157 63-Zly-056686:27 LIPID PANEL (71248) Comments: PATIENT WAS FASTINGPERFORMED BY: [facility] Wvuguz5219 [facility] [id number] LDL/HDL Ratio 1.5 {ratio_units} (Normal) Range: 0.0-3.2 Comments: LDL/HDL Ratio Men Women 1/2 Avg.Risk 1.0 1.5 Av g.Risk 3.6 3.2 2X Avg.Risk 6.2 5.0 3X Avg.Risk 8.0 6.1 LDL Cholesterol Calc 101 mg/dL (Abnormal) Range: 0-99 VLDL Cholesterol Sumeet 18 mg/dL (Normal) Range: 5-40 HDL Cholesterol 69 mg/dL (Normal) Triglycerides 90 mg/dL (Normal) Range: 0-149 Cholesterol, Total 188 mg/dL (Normal) Range: 100-199 0-Evb-189502:45 HgA1C , Office (72872) HgA1C , Office 5.4 % (Normal) Range: 4.6 - 7.1 1-Glm-329054:45 Blood Glucose , Office (67306) Blood Glucose , Office 86 (Normal) :0 C difficile Toxins Negative (Normal) Comments: PATIENT NOT FASTINGPERFORMED BY: [facility]Select [facility]6370 [facility] [id number] 5 A+B, EIA :05 Giardia, EIA, Ova/Parasite Comments: PATIENT NOT FASTINGPERFORMED BY: [facility] Purvml2039 [facility] [id number] Giardia lamblia Ag, Negative (Normal) EIA Result 1 NOCP (Normal) Comments: No ova, cysts, or parasites seen. Ova + Parasite Exam Final report Comments: These results were obtained using wet preparation(s) and trichromestained smear. This test does not include testing for Cryptosporidiumparvum, Cyclospora, or Microsporidia. (Normal) :0 Occult Blood, Fecal, Negative (Normal) Comments: PATIENT NOT FASTINGPERFORMED BY: [facility] Izpwbp5020 [facility] [id number] 5 IA 07-Jan-20171:05 Stool Culture Comments: PATIENT NOT FASTINGPERFORMED BY: [facility]6370 [facility] [id number] Information: SRC:ST SRC:ST E coli Shiga Toxin EIA Negative (Normal) Result 1 NCI (Normal) Comments: No Campylobacter species isolated. Campylobacter Culture Final report (Normal) Result 1 NSS (Normal) Comments: No Salmonella or Shigella recovered. Salmonella/Shigella Screen Final report (Normal) :05 White Blood Cells (WBC), Comments: PATIENT NOT FASTINGPERFORMED BY: [facility] Jhlzpy7313 [facility] [id number] Stool Result 1 NWBC (Normal) Comments: No white blood cells seen. White Blood Cells (WBC), Final report (Normal) Stool 9-Zeb-099102:00 CBC W/AUTO DIFF WBC (91714) Comments: PATIENT NOT FASTINGPERFORMED BY: [facility] Whswpx3088 [facility] [id number] Immature Grans (Abs) 0.0 {x10E3/uL} (Normal) Range: [...] 3.77-5.28 WBC 5.7 {x10E3/uL} (Normal) Range: 3.4-10.8 29-Sar-171376:54 AFP, Tumor Marker Comments: Is Patient ? [facility] (refer to report for specific site)refer to report for address and phone number AFP TUMOR 2253 9.5 ng/mL (Abnormal) Range: 0.0-8.3 Comments: Izaiah ECLIA methodologyPerformed at: - [facility] [id number] Director: Zander Saunders PhD, Phone: [phone] 16-Bsu-322975:28 MICROALBUMIN: CREATININE RATIO Comments: PATIENT WAS FASTINGPERFORMED BY: [employer] [id number] (81013) AND (94087) Microalb/Creat Ratio 11.8 {mg/g_creat} (Normal) Range: 0.0-30.0 Microalbumin, Urine 27.0 ug/mL (Normal) Creatinine, Urine 229.1 mg/dL (Normal) 63-Bbb-195790:28 CALCIFEDIOL (45420) Comments: PATIENT WAS FASTINGPERFORMED BY: [facility] Almoxx4026 [facility] [id number] Vitamin D, 25-Hydroxy 49.4 ng/mL (Normal) Range: 30.0-100.0 Comments: Vitamin D deficiency has been defined by the [place] of[place]icine and an Endocrine Society practice guideline as alevel of serum 25-OH vitamin D less than 20 ng/mL (1,2).The Endocrine Society went on to further define vitamin Dinsufficiency as a level between 21 and 29 ng/mL (2).1. IOM ([place] of [employer]). 2010. Dietary reference intakes for calcium and D. [place]: The National Academies Press.2. Hannah MF, Hilda SONG, Cindy FREED, et al. Evaluation, treatment, and prevention of vitamin D deficiency: an Endocrine Society clinical practice guideline. JCEM. 2010; 96(7):1911-30. 93-Ivy-926443:28 TSH (THYROID STIMULATING Comments: PATIENT WAS FASTINGPERFORMED BY: Bionym6370 [facility] [id number] HORMONE) (05637) TSH 2.320 {uIU/mL} (Normal) Range: 0.450-4.500 89-Kmj-507849:28 LIPID PANEL (02861) Comments: PATIENT WAS FASTINGPERFORMED BY: [facility] Fmhwgz5446 [facility]in [place] [id number] LDL/HDL Ratio 1.2 {ratio_units} (Normal) Range: 0.0-3.2 Comments: LDL/HDL Ratio Men Women 1/2 Avg.Risk 1.0 1.5 Av g.Risk 3.6 3.2 2X Avg.Risk 6.2 5.0 3X Avg.Risk 8.0 6.1 LDL Cholesterol Calc 95 mg/dL (Normal) Range: 0-99 VLDL Cholesterol Sumeet 25 mg/dL (Normal) Range: 5-40 HDL Cholesterol 79 mg/dL (Normal) Triglycerides 126 mg/dL (Normal) Range: 0-149 Cholesterol, Total 199 mg/dL (Normal) Range: 100-199 54-Alf-315214:28 METABOLIC PANEL, COMPREHENSIVE Comments: PATIENT WAS FASTINGPERFORMED BY: [employer]70 [place] [facility] [id number] (06030) ALT (SGPT) 16 [iU]/L (Normal) Range: 0-32 [...] Glucose, Serum 99 mg/dL (Normal) Range: 65-99 01-Viq-887042:28 CBC, PLATELETS & AUT DIFF Comments: PATIENT WAS FASTINGPERFORMED BY: [facility] Uxarkp0890 [facility] [id number]; fu 03/11 KF (29962) Immature Grans (Abs) 0.0 {x10E3/uL} (Normal) Range: [...] (Normal) Range: 3.4-10.8 :51 HgA1C , Office (83993) HgA1C , Office 5.5 % (Normal) Range: 4.6 - 7.1 :51 Blood Glucose , Office (12427) Blood Glucose , Office 91 (Normal) 4-Gvr-957347:11 Serum Creatinine AND GFR Comments: STAT!!![facility] [address] [place], [place], [id number] EST GFR - AA 91 mL/min (Normal) Comments: GFR Calc EST GFR 76 mL/min (Normal) Comments: Non- GFR Calc CREAT,SERUM 0.80 mg/dL (Normal) Range: 0.55-1.02 Comments: The validity of the calculated GFR AND GFRAA in patients over70 years has not been determined. Clinical correlation isessential. 4-Exv-905282:05 AFP, Tumor Marker Comments: Is Patient ? [facility] (refer to report for specific site)refer to report for address and phone number AFP TUMOR 2253 10.2 ng/mL (Abnormal) Range: 0.0-8.3 Comments: [employer] ECLIA methodologyPerformed at: [employer] [facility] [address] [id number] Director: Zander Saunders PhD, Phone: [phone] :[phone] CBC W/Diff, Automated Comments: [facility] [address]ws[address] [place], [place], [id number] Absolute Lymph 1.56 {X10_3/ul} (Normal) Range: 0.83-4.51 [...] 4.2-5.4 WBC 5.0 K/mm3 (Normal) Range: 4.4-11.0 4-Vbk-117265:05 Comprehensive Metabolic Profil Comments: Is Patient Taking Vitamins or Folic Acid Supplements? [facility] [address]kdt[address]fli[address] [place], [address] GAP 8 (Normal) Range: 5-15 CO2 29.0 [...] 7-18 GLU 91 mg/dL (Normal) Range: 70-110 3-Iqg-262166:05 Folates, (Folic Acid) Comments: Is Patient Taking Vitamins or Folic Acid Supplements? [facility] Kojoefwldl55[address] [place], [address] FOLATES 37.50 ng/mL (Abnormal) Range: 3.1-17.5 5-Qno-876216:05 Lipid Profile Comments: Is Patient Taking Vitamins or Folic Acid Supplements? [facility] S[address]xfhcjuz[address] [place], [address] VLDL 36 mg/dL (Normal) Range: 5-40 [...] 200-240 mg/dL Borderline >240 mg/dL High Risk 5-Kkt-129024:05 Thyroid Stim Hormone (TSH) Comments: Is Patient Taking Vitamins or Folic Acid Supplements? [facility] [address] [place], [address] TSH 1.94 {uIU/mL} (Normal) Range: 0.358-3.74 0-Gql-902641:05 Vitamin B12 668 pg/mL (Normal) Comments: [facility] Jkwakdgazz0236 [place], [address] Range: 211-911 5-Ifw-673723:05 Vitamin D,25 Hydroxy Comments: [facility] Usmqujgege6892 [place], [address] Vitamin D 25-OH 38.6 ng/mL (Normal) Comments: Vitamin D 25(OH) Status Range Deficiency <20 ng/mL (50nmol/L) Insuffciency 20 - 30 ng/mL (50 - 75 nmol/L) Sufficiency 30 - 100 ng/mL (75 - 250 nmol/L) Toxicity >100 ng/mL (>250 nmol/L) :38 HgA1C , Office (29132) HgA1C , Office 5.3 % (Normal) Range: 4.6 - 7.1 :38 Blood Glucose , Office (34434) Blood Glucose , Office 89 (Normal) :48 MICROALBUMIN: CREATININE RATIO Comments: PATIENT NOT FASTINGPERFORMED BY: [facility], Old BridgeUghbzg3904 [facility] [id number] (80064) AND (71897) Microalb/Creat Ratio 3.2 {mg/g_creat} (Normal) Range: 0.0-30.0 Microalbumin, Urine 3.8 ug/mL (Normal) Creatinine, Urine 119.1 mg/dL (Normal) :48 CBC W/AUTO DIFF WBC Comments: PATIENT NOT FASTINGPERFORMED BY: BERE [facility] Pobeiz9689 [facility] [id number] Information: [id number] PT HAD COFF EE WITH CREAM (53320) Immature Grans (Abs) 0.0 {x10E3/uL} (Normal) Range: [...] {x10E3/uL} (Normal) Range: 3.4-10.8 :48 LIPID PANEL (25484) Comments: PATIENT NOT FASTINGPERFORMED BY: [employer] Rjaljf8247 [facility] [id number] LDL/HDL Ratio 1.7 {ratio_units} (Normal) Range: 0.0-3.2 [...] PANEL, COMPREHENSIVE Comments: PATIENT NOT FASTINGPERFORMED BY: [employer] Ygimny1981 [facility] [id number] (78942) ALT (SGPT) 13 [iU]/L (Normal) Range: 0-32 [...] Serum 86 mg/dL (Normal) Range: 65-99 :48 KWWCT-TUFHYZWULGV-JXGCE (88029) Comments: PATIENT NOT FASTINGPERFORMED BY: Bionym6370 [facility] [id number] AFP, Serum, Tumor Marker 9.5 ng/mL (Abnormal) Range: 0.0-8.3 Comments: Izaiah ECLIA methodology :11 HgA1C , Office (06506) HgA1C , Office 5.4 % (Normal) Range: 4.6 - 7.1 :11 HgA1C , Office (21082) HgA1C , Office 5.5 % (Normal) Range: 4.6 - 7.1 :37 LIPID PANEL (98627) Comments: PATIENT WAS FASTINGPERFORMED BY: Bionym6370 [facility] [id number] LDL/HDL Ratio 1.8 {ratio_units} (Normal) Range: 0.0-3.2 [...] Cholesterol, Total 255 mg/dL (Abnormal) Range: 100-199 59-Evm-307444:37 METABOLIC PANEL, Comments: PATIENT WAS FASTINGPERFORMED BY: [facility]CoR[facility], Old BridgeGhcseh3901 [facility] [id number] Information: [id number] COMPREHENSIVE (43253) ALT (SGPT) 15 [iU]/L (Normal) Range: 0-32 [...] Glucose, Serum 91 mg/dL (Normal) Range: 65-99 64-Tff-007599:37 QLJQH-SGYCLHWMJBM-EATRY (73972) Comments: PATIENT WAS FASTINGPERFORMED BY: [facility]6370 [facility] [id number] AFP, Serum, Tumor Marker 10.1 ng/mL (Abnormal) Range: 0.0-8.3 Comments: Izaiah ECLIA methodology :54 HGVXO-VTSLONRLCFF-ZZJAS (10318) Comments: 2 months; PATIENT NOT FASTINGPERFORMED BY: [address] [id number] Information: [id number] AFP, Serum, Tumor Marker 10.3 ng/mL (Abnormal) Range: 0.0-8.3 Comments: Izaiah ECLIA methodology 0-Rgt-193606:04 HgA1C , Office (15174) HgA1C , Office 5.9 % (Normal) Range: 4.6 - 7.1 :00 Serum Creatinine AND GFR Comments: Test performed at:[facility] Offayccvrp[address] [place], [place] [address] EST GFR - AA 81 mL/min (Normal) EST GFR 67 mL/min (Normal) CREAT,SERUM 0.89 mg/dL (Normal) Range: 0.55-1.20 Comments: Please note revised CREATININE reference range nqrarjvpt79/22/2015. 27-Srh-657961:19 CBC with auto diff Comments: PATIENT WAS FASTINGPERFORMED BY: [address] [id number] Information: [id number] (39057) Immature Grans (Abs) 0.0 {x10E3/uL} (Normal) Range: [...] 3.77-5.28 WBC 5.5 {x10E3/uL} (Normal) Range: 3.4-10.8 25-Oxq-169225:19 MICROALBUMIN: CREATININE RATIO Comments: PATIENT WAS FASTINGPERFORMED BY: [employer] [facility] [id number] (17892) AND (36753) Microalb/Creat Ratio <3.5 {mg/g_creat} (Normal) Range: 0.0-30.0 Microalbumin, Urine <3.0 ug/mL (Normal) Range: 0.0-17.0 Creatinine, Urine 85.8 mg/dL (Normal) Range: 15.0-278.0 04-Wxu-537217:19 METABOLIC PANEL, COMPREHENSIVE Comments: PATIENT WAS FASTINGPERFORMED BY: [employer] [facility] [id number] (55783) ALT (SGPT) 11 [iU]/L (Normal) Range: 0-32 [...] Glucose, Serum 94 mg/dL (Normal) Range: 65-99 36-Xgc-780539:19 LIPID PANEL (18591) Comments: PATIENT WAS FASTINGPERFORMED BY: [facility]CoR[facility], Old BridgeSoqutj4972 [facility] [id number] LDL/HDL Ratio 1.8 {ratio_units} (Normal) Range: 0.0-3.2 [...] Cholesterol, Total 230 mg/dL (Abnormal) Range: 100-199 47-Vjy-397124:19 ENEOM-QRGZTMGZEQL-ULMSF (23374) Comments: PATIENT WAS FASTINGPERFORMED BY: [facility]uR[facility], Old BridgeYapieb8711 [facility] [id number] AFP, Serum, Tumor Marker 9.4 ng/mL (Abnormal) Range: 0.0-8.3 Comments: Izaiah ECLIA methodology :33 HgA1C , Office (78032) HgA1C , Office 5.9 % (Normal) Range: 4.6 - 7.1 AFP, Serum, Tumor 8.6 ng/mL (Abnormal) Comments: PATIENT WAS FASTINGPERFORMED BY: [facility], Old BridgeRukwka8228 [facility] [id number] :02 Marker Range: 0.0-8.3 Comments: Izaiah ECLIA methodology :02 CBC With Differential/Platelet Comments: PATIENT WAS FASTINGPERFORMED BY: [facility], Old BridgeThkgrh8140 [facility] [id number] Information: [id number] Immature Grans (Abs) 0.0 {x10E3/uL} (Normal) Range: [...] 3.77-5.28 WBC 5.1 {x10E3/uL} (Normal) Range: 3.4-10.8 82-Xzq-834727:02 Comp. Metabolic Panel (14) Comments: PATIENT WAS FASTINGPERFORMED BY: [facility]CoR[facility], Old BridgeYgvwpw9686 [facility] [id number] ALT (SGPT) 16 [iU]/L (Normal) Range: 0-32 [...] Glucose, Serum 84 mg/dL (Normal) Range: 65-99 08-Aum-456656:02 Lipid Panel With LDL/HDL Comments: PATIENT WAS FASTINGPERFORMED BY: [facility]6370 [facility] [id number] Ratio LDL/HDL Ratio 1.7 {ratio_units} Range: 0.0-3.2 [...] {uIU/mL} (Normal) Comments: PATIENT WAS FASTINGPERFORMED BY: [facility]6370 [facility] [id number] 13:02 Range: 0.450-4.500 09-Wob-47698:47 HgA1C , Office (37459) HgA1C , Office 5.6 % (Normal) Range: 4.6 - 7.1 7-Xgy-973853:12 HXJZY-XXQZTUPJTWJ-ARKYU (27031) Comments: PATIENT NOT FASTINGPERFORMED BY: [facility]6370 [facility] [id number] AFP, Serum, Tumor Marker 9.2 ng/mL (Abnormal) Range: 0.0-8.3 Comments: Izaiah ECLIA methodology 8-Sbn-071997:12 CBC W/AUTO DIFF WBC Comments: PATIENT NOT FASTINGPERFORMED BY: [place] 3560670 [facility] [id number] Information: [id number] (60240) Immature Grans (Abs) 0.0 {x10E3/uL} (Normal) Range: [...] 3.77-5.28 WBC 7.3 {x10E3/uL} (Normal) Range: 3.4-10.8 0-Cgo-737167:12 METABOLIC PANEL, COMPREHENSIVE Comments: PATIENT NOT FASTINGPERFORMED BY: [facility]CoR[facility], Old BridgeEpivvo8077 [facility] [id number] (11293) ALT (SGPT) 15 [iU]/L (Normal) Range: 0-32 [...] Glucose, Serum 84 mg/dL (Normal) Range: 65-99 0-Qjp-462841:12 LIPID PANEL (70668) Comments: PATIENT NOT FASTINGPERFORMED BY: [facility]CoR[facility], Old BridgeFhauiz9313 [facility] [id number] LDL/HDL Ratio 1.3 {ratio_units} (Normal) Range: 0.0-3.2 [...] Cholesterol, Total 199 mg/dL (Normal) Range: 100-199 11-Bnr-729329:05 HgA1C , Office (17227) HgA1C , Office 5.8 % (Normal) Range: 4.6 - 7.1 5-Jtt-687574:21 VJSWA-CBDJWQMMFDJ-AWXNO (20131) Comments: get us of liver; PATIENT WAS FASTINGPERFORMED BY: [employer] [facility] [id number] AFP, Serum, Tumor Marker 8.6 ng/mL (Abnormal) Range: 0.0-8.3 Comments: Izaiah ECLIA methodology 9-Nev-508234:21 MICROALBUMIN: CREATININE RATIO Comments: PATIENT WAS FASTINGPERFORMED BY: [employer] [facility] [id number] (49824) AND (74292) Microalb/Creat Ratio 7.2 {mg/g_creat} (Normal) Range: 0.0-30.0 Microalbumin, Urine 12.4 ug/mL (Normal) Range: 0.0-17.0 Creatinine, Urine 173.3 mg/dL (Normal) Range: 15.0-278.0 :21 LIPID PANEL (11403) Comments: PATIENT WAS FASTINGPERFORMED BY: [employer]70 [facility] [id number] LDL/HDL Ratio 1.5 {ratio_units} (Normal) Range: 0.0-3.2 [...] Cholesterol, Total 217 mg/dL (Abnormal) Range: 100-199 :21 CBC WITH MANUAL DIFF Comments: PATIENT WAS FASTINGPERFORMED BY: BERE VostuCarlsbad Medical CenterJathvd9672 [facility] [id number] Information: [id number]; non-emergent till apt this week (72442) Immature Grans (Abs) 0.0 {x10E3/uL} (Normal) Range: [...] 3.77-5.28 WBC 13.8 {x10E3/uL} (Abnormal) Range: 3.4-10.8 1-Uqk-057409:21 METABOLIC PANEL, COMPREHENSIVE Comments: PATIENT WAS FASTINGPERFORMED BY: Vostu Gtoxsz9887 [facility] [id number] (44445) ALT (SGPT) 13 [iU]/L (Normal) Range: 0-32 [...] Glucose, Serum 84 mg/dL (Normal) Range: 65-99 94-Rlx-963705:32 HgA1C , Office (62824) HgA1C , Office 5.8 % (Normal) Range: 4.6 - 7.1 :18 Vitamin D Hydroxy (80860) Comments: PATIENT WAS FASTINGPERFORMED BY: [facility] Iirznm2347 [facility] [id number] Vitamin D, 25-Hydroxy 54.3 ng/mL (Normal) Range: 30.0-100.0 Comments: Vitamin D deficiency has been defined by the [place] of[place]icine and an Endocrine Society practice guideline as alevel of serum 25-OH vitamin D less than 20 ng/mL (1,2).The Endocrine Society went on to further define vitamin Dinsufficiency as a level between 21 and 29 ng/mL (2).1. IOM ([place] of Medicine). 2010. Dietary reference intakes for calcium and D. [place]: The National Academies Press.2. Hannah MF, Hilda SONG, Cindy FREED, et al. Evaluation, treatment, and prevention of vitamin D deficiency: an Endocrine Society clinical practice guideline. JCEM. 2010; 96(7):1911-30. 2-Aqp-951836:18 IRON (01796) Comments: PATIENT WAS FASTINGPERFORMED BY: [employer] [facility] Svsamo7921 [facility] [id number] Iron, Serum 86 ug/dL (Normal) Range: 35-155 6-Xjw-995332:18 CBC WITH MANUAL DIFF Comments: PATIENT WAS FASTINGPERFORMED BY: [facility] Cyejju1661 [facility] [id number] Information: [id number] (33961) Immature Grans (Abs) 0.0 {x10E3/uL} (Normal) Range: [...] 3.77-5.28 WBC 6.1 {x10E3/uL} (Normal) Range: 3.4-10.8 :18 YGZLH-OQZRYSMPQJN-TDIKS (71056) Comments: PATIENT WAS FASTINGPERFORMED BY: [address] [id number] AFP, Serum, Tumor Marker 9.6 ng/mL (Abnormal) Range: 0.0-8.3 Comments: Izaiah ECLIA methodology :18 PTT (Activated Partial Comments: PATIENT WAS FASTINGPERFORMED BY: [facility]6370 [facility] [id number] Thromboplastin Time) (57548) aPTT 27 {sec} (Normal) Range: 24-33 Comments: This test has not been validated for monitoring unfractionated heparintherapy. aPTT-based therapeutic ranges for unfractionated heparintherapy have not been established. For general guidelines onHeparin monitoring, refer to the [facility] Directory of Services. :18 PT (Prothrobim Time) (27553) Comments: PATIENT WAS FASTINGPERFORMED BY: [facility]6370 [facility] [id number] Prothrombin Time 10.3 {sec} (Normal) Range: 9.1-12.0 INR 1.0 (Normal) Range: 0.8-1.2 Comments: Reference interval is for non-anticoagulated patients. . Suggested INR therapeutic range for Vitamin K anta gonist therapy: Standard Dose (moderate intensity therapeutic range): 2.0 - 3.0 Higher intensity therapeutic range 2.5 - 3.5 :18 METABOLIC PANEL, COMPREHENSIVE Comments: PATIENT WAS FASTINGPERFORMED BY: [facility]Co[facility], Old BridgeShzsyg4980 [facility] [id number] (68569) ALT (SGPT) 21 [iU]/L (Normal) Range: 0-32 [...] Glucose, Serum 97 mg/dL (Normal) Range: 65-99 4-Ivg-989471:18 LIPID PANEL (69417) Comments: PATIENT WAS FASTINGPERFORMED BY: [facility]CoR[facility], Old BridgeCmjsgw7625 [facility] [id number]; will review at 05/25 appt LDL/HDL Ratio [...] (Normal) Range: 100-199 :30 HgA1C , Office (51499) HgA1C , Office 5.7 % (Normal) Range: 4.6 - 7.1 :37 LIPID PANEL (77872) Comments: PATIENT WAS FASTINGPERFORMED BY: Bionym6370 [facility] [id number] Information: [id number] LDL/HDL Ratio 1.2 {ratio_units} (Normal) Range: 0.0-3.2 LDL Cholesterol Calc 86 mg/dL (Normal) Range: 0-99 VLDL Cholesterol Sumeet 20 mg/dL (Normal) Range: 5-40 HDL Cholesterol 73 mg/dL (Normal) Comments: According to ATP-III Guidelines, HDL-C >59 mg/dL is considered anegative risk factor for CHD. Triglycerides 99 mg/dL (Normal) Range: 0-149 Cholesterol, Total 179 mg/dL (Normal) Range: 100-199 :47 Vitamin D Hydroxy (74752) Comments: PATIENT NOT FASTINGPERFORMED BY: Bionym6370 [facility] [id number] Vitamin D, 25-Hydroxy 34.7 ng/mL (Normal) Range: 30.0-100.0 Comments: Vitamin D deficiency has been defined by the [place] of[place]icine and an Endocrine Society practice guideline as alevel of serum 25-OH vitamin D less than 20 ng/mL (1,2).The Endocrine Society went on to further define vitamin Dinsufficiency as a level between 21 and 29 ng/mL (2).1. IOM ([place] of [employer]). 2010. Dietary reference intakes for calcium and D. [place]: The National Academies Press.2. Hannah MF, Hilda SONG, Cindy FREED, et al. Evaluation, treatment, and prevention of vitamin D deficiency: an Endocrine Society clinical practice guideline. JCEM. 2010; 96(7):1911-30. :47 CBC WITH MANUAL DIFF Comments: PATIENT NOT FASTINGPERFORMED BY: [facility]CoR[facility], Old BridgePztxcf7668 [facility] [id number] Information: [id number] (69354) Immature Grans (Abs) 0.0 {x10E3/uL} (Normal) Range: [...] 3.77-5.28 WBC 5.9 {x10E3/uL} (Normal) Range: 3.4-10.8 13-Vak-624172:47 METABOLIC PANEL, COMPREHENSIVE Comments: PATIENT NOT FASTINGPERFORMED BY: [facility]Select [facility]6370 [facility] [id number] (25183) ALT (SGPT) 37 [iU]/L (Abnormal) Range: 0-32 [...] Glucose, Serum 99 mg/dL (Normal) Range: 65-99 :47 OFUJZ-KGMKATQFXHC-XSFPZ (98709) Comments: PATIENT NOT FASTINGPERFORMED BY: [employer] Jshbhq4901 [facility] [id number] AFP, Serum, Tumor Marker 7.6 ng/mL (Normal) Range: 0.0-8.3 Comments: Izaiah ECLIA methodology :47 PTT (Activated Partial Comments: PATIENT NOT FASTINGPERFORMED BY: Zee LearnRaritan Bay Medical Center, Old BridgeKmgsxk3134 [facility] [id number] Thromboplastin Time) (84265) aPTT 25 {sec} (Normal) Range: 24-33 Comments: This test has not been validated for monitoring unfractionated heparintherapy. aPTT-based therapeutic ranges for unfractionated heparintherapy have not been established. For general guidelines onHeparin monitoring, refer to the [facility] Directory of Services. 10-Nlv-344394:47 PT (Prothrobim Time) (25864) Comments: PATIENT NOT FASTINGPERFORMED BY: [place] 3560670 [facility] [id number] INR 1.0 (Normal) Range: 0.8-1.2 Comments: Reference interval is for non-anticoagulated patients. . Suggested INR therapeutic range for Vitamin K anta gonist therapy: Standard Dose (moderate intensity therapeutic range): 2.0 - 3.0 Higher intensity therapeutic range 2.5 - 3.5 Prothrombin Time 10.4 {sec} (Normal) Range: 9.1-12.0 13-Lal-269664:47 FOLIC ACID SERUM (20572) Comments: PATIENT NOT FASTINGPERFORMED BY: [address] [id number] Folate (Folic Acid), Serum >19.9 ng/mL (Normal) Comments: A serum folate concentration of less than 3.1 ng/mL isconsidered to represent clinical deficiency. 20-Gtv-024522:47 VITAMIN B-12 (CYANOCOBALAMIN) Comments: PATIENT NOT FASTINGPERFORMED BY: [address] [id number] (47537) Vitamin B12 801 pg/mL (Normal) Range: 211-946 66-Nyb-964708:47 RETICULOCYTE COUNT MANUL Comments: PATIENT NOT FASTINGPERFORMED BY: [place] 3560670 [facility] [id number] (94903) Reticulocyte Count 0.9 % (Normal) Range: 0.6-2.6 77-Hbx-926055:47 LDH (LD) (LACTATE DEHYDROGENASE) Comments: PATIENT NOT FASTINGPERFORMED BY: [address] [id number] (64470) LDH 203 [iU]/L (Normal) Range: 0-214 81-Mcl-424290:47 IRON BINDING CAPACITY (TIBC) Comments: PATIENT NOT FASTINGPERFORMED BY: [address] RoadDublin [place] [id number] (61138) Iron Saturation 13 % (Abnormal) Range: 15-55 Iron Bind.Cap.(TIBC) 391 ug/dL (Normal) Range: 250-450 Iron, Serum 51 ug/dL (Normal) Range: 35-155 UIBC 340 ug/dL (Normal) Range: 150-375 27-Fag-193772:47 FERRITIN (71516) Comments: PATIENT NOT FASTINGPERFORMED BY: [facility] Hshnao0371 [facility] [id number] Ferritin, Serum 7 ng/mL (Abnormal) Range: 15-150 91-Jtp-581429:06 CULTURE, SPUTUM (54595) Comments: PATIENT NOT FASTINGPERFORMED BY: [facility]nuts[facility] Qorugu2603 [facility] [id number] Information: SRC: SPUTUM Result 1 RRF (Normal) Comments: Routine respiratory trip Lower Respiratory Culture Final report (Normal) 8-Phn-683104:55 Protein Electro, Random Urine Comments: PATIENT WAS FASTINGPERFORMED BY: Vostu Fkhfhz2565 [facility] [id number] Please note: SPRCS (Normal) Comments: Protein electrophoresis scan will follow via computer, mail, orcourier delivery. Gamma Globulin, U 27.2 % (Normal) M-Roque, % Not Observed % (Normal) Beta Globulin, U 31.3 % (Normal) Umgbt-2-Lyeqdpsx, U 3.2 % (Normal) Vacyx-0-Tnnvxjsx, U 15.8 % (Normal) Albumin, U 22.6 % (Normal) Protein,Total,Urine 13.6 mg/dL (Normal) Range: 0.0-15.0 2-Jrs-425935:55 Protein Electro.,S Comments: PATIENT WAS FASTINGPERFORMED BY: [facility]nutsSelect [facility]6370 [facility] [id number] A/G Ratio 1.8 (Normal) Range: 0.7-2.0 Please note: SPRCS (Normal) Comments: Protein electrophoresis scan will follow via computer, mail, orcourier delivery. Gamma Globulin 0.6 g/dL (Normal) Range: 0.5-1.6 Globulin, Total 2.4 g/dL (Normal) Range: 2.0-4.5 M-Roque Not Observed g/dL (Normal) Jwhts-2-Oqfktsct 0.2 g/dL (Normal) Range: 0.1-0.4 Gyson-8-Wxfjnlhz 0.6 g/dL (Normal) Range: 0.4-1.2 Beta Globulin 1.0 g/dL (Normal) Range: 0.6-1.3 Albumin 4.2 g/dL (Normal) Range: 3.2-5.6 2-Sbh-940218:55 TSH (15597) Comments: PATIENT WAS FASTINGPERFORMED BY: [facility] Ndzqhq9637 [facility] [id number] TSH 2.610 {uIU/mL} (Normal) Range: 0.450-4.500 :55 CBC WITH MANUAL DIFF (57201) Comments: PATIENT WAS FASTINGPERFORMED BY: [facility]CoR[facility], Old BridgePywkpv5078 [facility] [id number] Immature Grans (Abs) 0.0 {x10E3/uL} (Normal) Range: [...] 3.77-5.28 WBC 5.2 {x10E3/uL} (Normal) Range: 3.4-10.8 1-Jeb-583875:55 METABOLIC PANEL, COMPREHENSIVE Comments: PATIENT WAS FASTINGPERFORMED BY: LabCoRaritan [facility], Old BridgeOmzhuw3674 [facility] [id number] (10493) ALT (SGPT) 36 [iU]/L (Abnormal) Range: 0-32 [...] Glucose, Serum 88 mg/dL (Normal) Range: 65-99 3-Hvl-674918:55 LIPID PANEL (00015) Comments: PATIENT WAS FASTINGPERFORMED BY: Vostu Vfklxa0933 [facility] [id number] LDL/HDL Ratio 1.7 {ratio_units} (Normal) Range: 0.0-3.2 LDL Cholesterol Calc 138 mg/dL (Abnormal) Range: 0-99 VLDL Cholesterol Sumeet 19 mg/dL (Normal) Range: 5-40 Cholesterol, Total 240 mg/dL (Abnormal) Range: 100-199 HDL Cholesterol 83 mg/dL (Normal) Comments: According to ATP-III Guidelines, HDL-C >59 mg/dL is considered anegative risk factor for CHD. Triglycerides 97 mg/dL (Normal) Range: 0-149 :30 HgA1C , Office (12699) HgA1C , Office 5.6 % (Normal) Range: 4.6 - 7.1 :35 CALCIFEDIOL (33038) Comments: PATIENT WAS FASTINGPERFORMED BY: Vostu Istakz8464 [facility] [id number] Vitamin D, 25-Hydroxy 33.8 ng/mL (Normal) Range: 30.0-100.0 Comments: Vitamin D deficiency has been defined by the [place] of[place]icine and an Endocrine Society practice guideline as alevel of serum 25-OH vitamin D less than 20 ng/mL (1,2).The Endocrine Society went on to further define vitamin Dinsufficiency as a level between 21 and 29 ng/mL (2).1. IOM ([place] of [employer]). 2010. Dietary reference intakes for calcium and D. [place]: The National Academies Press.2. Hannah MF, Hilda [place], Maximiliano-Tan FREED, et al. Evaluation, treatment, and prevention of vitamin D deficiency: an Endocrine Society clinical practice guideline. JCEM. 2010; 96(7):1911-30. :35 CBC with manual diff Comments: PATIENT WAS FASTINGPERFORMED BY: [facility] [id number] [facility] [id number] Information: [id number] ([id number]) Immature Grans (Abs) 0.0 {x10E3/uL} (Normal) Range: [...] in the reference population. :35 Lipid Panel (73659) Comments: PATIENT WAS FASTINGPERFORMED BY: [id number] [facility] [id number] LDL/HDL Ratio 1.3 {ratio_units} (Normal) Range: 0.0-3.2 [...] Panel, Comprehensive Comments: PATIENT WAS FASTINGPERFORMED BY: [id number] [facility] [id number] ([id number]) ALT (SGPT) 26 [iU]/L (Normal) Range: 0-32 [...] Glucose, Serum 95 mg/dL (Normal) Range: 65-99 [id number]-[id number]:17 Protein Electro, Random Urine Comments: PATIENT NOT FASTINGPERFORMED BY: [id number] [facility] [id number] Gamma Globulin, U 33.0 % (Normal) M-Roque, % Not Observed % (Normal) Please note: SPRCS (Normal) Comments: Protein electrophoresis scan will follow via computer, mail, orcourier delivery. Pwwem-6-Nvgprdtz, U 12.2 % (Normal) Beta Globulin, U 27.5 % (Normal) Jwcwt-7-Jqstoqrk, U 2.3 % (Normal) Albumin, U 25.0 % (Normal) Protein,Total,Urine 4.6 mg/dL (Normal) Range: 0.0-15.0 :17 Protein Electro.,S Comments: PATIENT NOT FASTINGPERFORMED BY: Bionym6370 [facility] [id number] A/G Ratio 1.5 (Normal) Range: 0.7-2.0 Please note: SPRCS (Normal) Comments: Protein electrophoresis scan will follow via computer, mail, orcourier delivery. Globulin, Total 2.6 g/dL (Normal) Range: 2.0-4.5 M-Roque Not Observed g/dL (Normal) Gamma Globulin 0.7 g/dL (Normal) Range: 0.5-1.6 Pcckz-5-Ddivyehf 0.7 g/dL (Normal) Range: 0.4-1.2 Beta Globulin 1.0 g/dL (Normal) Range: 0.6-1.3 Arrks-8-Optwnjfq 0.2 g/dL (Normal) Range: 0.1-0.4 Albumin 4.0 g/dL (Normal) Range: 3.2-5.6 Protein, Total, Serum 6.6 g/dL (Normal) Range: 6.0-8.5 61-Tqa-421345:17 PHOSPHORUS (70968) Comments: PATIENT NOT FASTINGPERFORMED BY: [facility] Kovuhk9791 [facility] [place] [id number] Phosphorus, Serum 3.6 mg/dL (Normal) Range: 2.5-4.5 58-Xoz-630195:17 PARATHORMONE (75784) Comments: PATIENT NOT FASTINGPERFORMED BY: CB [facility] Dlnxrm2264 [facility] [place] [id number] PTH, Intact 17 pg/mL (Normal) Range: 15-65 90-Qoh-675143:17 TSH (35750) Comments: PATIENT NOT FASTINGPERFORMED BY: [facility] Hgzfmv8348 [facility] [place] [id number] TSH 2.130 {uIU/mL} (Normal) Range: 0.450-4.500 83-Mye-022637:17 VITAMIN B-12 (CYANOCOBALAMIN) Comments: PATIENT NOT FASTINGPERFORMED BY: CB [facility] Qstomh5540 [facility] [place] [id number] (60161) Vitamin B12 886 pg/mL (Normal) Range: 211-946 50-Dyx-341349:54 CHEST WITH CONTRAST Radiology Report See Note [...] Hathaway M.D.March 22, 2013 at 1:20:07 PM [id number] Signed GP/GP If you are the referring physician and would like to consult with theradiologist who provided this interpretation, please contact Leslye Escobedo at [phone]. If this radiologist is unavailable, steph hensley be directed to another radiologist to assist. If you are a patient with a question regarding this report, pleasecontactyour referring physician directly. Professional Interpretation Provided By: Yedda, Phone , These documents contain legally protected [...] destructionofthese documents. Dictated on 03/21/13 1403 by Amanda Hathaway MDranscribed on 03/22/13 1322 by ITS IMPORTSign by Yousif Roa MD on 03/22/13 1323 Sign by: Yousif Hathaway MD 6-Wly-248126:31 Calcium, 24Hr Urine Comments: PERFORMED BY: [facility]6370 [facility] [id number] Information: 03/07@220AM 03/08@220AM Calcium, Urine 24hr 173.8 {mg/24_hr} (Normal) Range: 100.0-300.0 Calcium, Urine 15.8 mg/dL (Normal) 8-Msq-392370:23 CULTURE, SPUTUM (72763) Comments: PATIENT NOT FASTINGPERFORMED BY: [facility]Co[facility], Old BridgeRuzvqh6136 [facility] [id number] Information: SRC:PAYTON [id number] Result 1 RRF (Normal) Comments: Routine respiratory trip Lower Respiratory Culture Final report (Normal) 14-Opx-617651:26 DEXA BONE DENSITY STUDY (HP) Radiology Report [...] Hathaway M.D.January 21, 2013 at 8:47:25 AM [id number] Signed GP/GP If you are the referring physic elliott and would like to consult with theradiologist who provided this interpretation, please contact Leslye Escobedo at [phone]. If this radiologist is unavailable, youwill be directed to [facility] ther radiologist to assist. If you are a patient with a question regarding this report, pleasecontactyour referring physician directly. Professional Interpretation Provided By: Yedda, Phone , These documents contain legally protected [...] destructionofthese documents. Dictated on 01/18/13 1126 by Alina Hathaway MDscribed on 01/21/13 0849 by ITS IMPORTSign by Yousif Hathaway MD on 01/21 0850 Sign by: Yousif Hathaway MD 12-Jan-2013 C difficile Toxins Positive Comments: PERFORMED BY: [facility]6370 [facility] [id number] Information: SRC:ST 13:41 A+B, EIA (Abnormal) :38 Urinalysis, Office (60312) UA - BILIRUBIN Negative (Normal) UA - [...] Toxins A+B, Positive (Abnormal) Comments: PERFORMED BY: [facility]Co[facility], Old BridgeHbalsc8398 [facility] [id number] Information: SRC:ST 56 EIA :0 CDIF See Note (Normal) Comments: COPY OF REPORT SENT TO INFECTION CONTROL 12/06/12 143GinzaMetricsBANNER.RESULTS CALLED TO OFFICE TO JACOBO12/06/12 LIZBETH MENEZES.REPORT [...] OF REPORT SENT TO INFECTION CONTROL 12/06/12 143Signostics.RESULTS CALLED TO OFFICE TO JACOBO12/06/12 LIZBETH MENEZES.REPORT [...] Cyclospora, or Microspo ridia. TESTING PERFORMED AT [facility]. ORIGINAL REPORT ON FILE IN LAB CONTAINS ADDITIONAL TEST SITE INFORMATION. OVA/ PARASITES EXAM NO OVA, CYSTS, OR PARASITES FOUND. : STOB See Note (Abnormal) Comments: COPY OF REPORT SENT TO INFECTION CONTROL 12/06/12 1432SGAMBRILLS.RESULTS CALLED TO DR.FAST JOSEPH TO NitoHPCAJLZ32/29/13 LIZBETH MENEZES.REPORT READ BACK BY SAME . Comments: OCCULT BLOOD POSITIVE : WBCST See Note (Abnormal) Comments: COPY OF REPORT SENT TO INFECTION CONTROL 12/06/12 1432SOSNIKOLAS.RESULTS CALLED TO DR.FAST JOSEPH TO JACOBO12/06/12 LIZBETH MENEZES.REPORT READ BACK BY SAME . Comments: FECAL WBC LACTOFERRIN Positive: Fecal WBC Lactoferrin present 50-Sdp-335385:00 MICROALBUMIN: CREATININE RATIO Comments: PATIENT WAS FASTINGPERFORMED BY: [facility]6370 [facility] [id number] ([id number]) AND (53884) Creatinine, Urine 144.4 mg/dL (Normal) Range: 15.0-278.0 Microalb/Creat Ratio 4.2 {mg/g_creat} (Normal) Range: 0.0-30.0 Microalbumin, Urine 6.0 ug/mL (Normal) Range: 0.0-17.0 30-Vhn-247715:00 LIPID PANEL (46474) Comments: PATIENT WAS FASTINGPERFORMED BY: [facility], Old BridgeTlqqdw9523 [facility] [id number] LDL/HDL Ratio 1.3 {ratio_units} (Normal) Range: 0.0-3.2 HDL Cholesterol 87 mg/dL (Normal) Comments: According to ATP-III Guidelines, HDL-C >59 mg/dL is considered anegative risk factor for CHD. LDL Cholesterol Calc 116 mg/dL (Abnormal) Range: 0-99 VLDL Cholesterol Sumeet 24 mg/dL (Normal) Range: 5-40 Cholesterol, Total 227 mg/dL (Abnormal) Range: 100-199 Triglycerides 122 mg/dL (Normal) Range: 0-149 27-Skq-822847:00 CBC WITH MANUAL DIFF Comments: PATIENT WAS FASTINGPERFORMED BY: [facility]Co[facility], Old BridgeOjyaiq4614 [facility] [id number] Information: [id number] (24451) Immature Grans (Abs) 0.0 {x10E3/uL} (Normal) Range: [...] 3.77-5.28 WBC 4.6 {x10E3/uL} (Normal) Range: 4.0-10.5 39-Gxm-373302:00 METABOLIC PANEL, COMPREHENSIVE Comments: PATIENT WAS FASTINGPERFORMED BY: [employer] [facility] [id number] (99194) ALT (SGPT) 26 [iU]/L (Normal) Range: 0-32 [...] Glucose, Serum 93 mg/dL (Normal) Range: 65-99 13-Vvn-184503:00 Vitamin D Hydroxy (65132) Comments: PATIENT WAS FASTINGPERFORMED BY: [place] Blue Voice RoadDublin [place] [id number] Vitamin D, 25-Hydroxy 34.1 ng/mL (Normal) Range: 30.0-100.0 Comments: Vitamin D deficiency has been defined by the [place] of[place]icine and an Endocrine Society practice guideline as alevel of serum 25-OH vitamin D less than 20 ng/mL (1,2).The Endocrine Society went on to further define vitamin Dinsufficiency as a level between 21 and 29 ng/mL (2).1. IOM ([place] of Medicine). 2010. Dietary reference intakes for calcium and D. [place]: The National Academies Press.2. Hannah MF, Hilda SONG, Cindy FREED, et al. Evaluation, treatment, and prevention of vitamin D deficiency: an Endocrine Society clinical practice guideline. JCEM. 2010; 96(7):1911-30. 02-Xos-474217:29 URINE WON CULTURE-OSMAR COL Comments: PATIENT NOT FASTINGPERFORMED BY: [facility] Thkqyl8161 [facility] [id number] Information: SRC: [id number] COUNT (56081) Result 1 CNSNSS (Normal) Comments: Coagulase negative [...] S Urine Final report Culture,Comprehensi (Normal) ve 46-Nzg-032482:39 Urinalysis, Office (82032) UA - BILIRUBIN Negative (Normal) UA - BLOOD Negative (Normal) UA - GLUCOSE Negative (Normal) UA - KETONES Negative mg/dL (Normal) UA - LEUKOCYTE ESTERASE Trace (Normal) UA - NITRITE Negative (Normal) UA - PH 8.0 (Normal) UA - PROTEIN Trace mg/dL (Normal) UA - SPECIFIC GRAVITY 1.020 (Normal) URINE UROBILINGN OSMAR TIMED Normal mg/dL (Normal) 85-Iag-444976:27 HgA1C , Office (39727) HgA1C , Office 5.9 % (Normal) Range: 4.6 - 7.1 8-Dtp-284760:45 CULTURE, SPUTUM (25523) Comments: PATIENT NOT FASTINGPERFORMED BY: [employer] [facility] [id number] Information: SRC:[facility] [id number] Result 1 RRF (Normal) Comments: Routine respiratory trip Lower Respiratory Culture Final report (Normal) 4-Uwq-410435:41 Urinalysis, Office (96319) UA - BILIRUBIN Negative (Normal) UA - BLOOD Negative (Normal) UA - GLUCOSE Negative (Normal) UA - KETONES Negative mg/dL (Normal) UA - LEUKOCYTE ESTERASE Trace (Normal) UA - NITRITE Negative (Normal) UA - PH 7.0 (Normal) UA - PROTEIN Negative mg/dL (Normal) UA - SPECIFIC GRAVITY 1.020 (Normal) URINE UROBILINGN OSMAR TIMED Normal mg/dL (Normal) 22-Spf-099215:29 Urinalysis, Office (49995) UA - BILIRUBIN Negative (Normal) UA - BLOOD Hemolyzed Large (Normal) UA - GLUCOSE Negative (Normal) UA - KETONES Negative mg/dL (Normal) UA - LEUKOCYTE ESTERASE Trace (Normal) UA - NITRITE Negative (Normal) UA - PH 6.0 (Normal) Comments: 5.5 UA - PROTEIN Negative mg/dL (Normal) UA - SPECIFIC GRAVITY 1.025 (Normal) Comments: >=1.030 URINE UROBILINGN OSMAR TIMED Normal mg/dL (Normal) 65-Ajw-547264:59 URINE WON CULTURE-OSMAR COL Comments: PATIENT NOT FASTINGPERFORMED BY: [facility] Bfdmwk7156 [facility] [id number] Information: SRC: [id number] COUNT (25550) Result 1 Alpha streptococcus Comments: 900 Colonies/mLSusceptibility not normally performed on this organism. (Normal) Urine Final report (Normal) Culture,Comprehensi ve 06-Bsw-804573:41 Urinalysis, Office (28279) UA - NITRITE Negative (Normal) URINE UROBILINGN OSMAR TIMED 2 mg/dL (Normal) UA - PROTEIN Trace mg/dL (Normal) UA - PH 7.0 (Normal) UA - BLOOD Hemolyzed Large (Normal) UA - SPECIFIC GRAVITY 1.025 (Normal) UA - KETONES Negative mg/dL (Normal) UA - BILIRUBIN Negative (Normal) UA - GLUCOSE Negative (Normal) 87-Vnx-54535:00 CHEST, PA AND LATERAL Radiology Report See [...] change. Signed:Yousif Hathaway M.D.July at 1:40:15 PM [id number] Signed GP/GP If you are the referring physician and would like to consult with theradiologist who provided this interpretation, please contact Yousif Hathaway M.D. at [phone]. If this radiologist is unavailable, youwill be directed to another radiologist to assist. If you are a patient with a question regarding this report, pleasecontactyour yeny butcher physician directly. Professional Interpretation Provided By: Yedda, Phone , These documents contain legally protected [...] 07/28/12 1403 Sign by: Yousif Hathaway MD 11-Nib-902971:27 CBC WITH MANUAL DIFF Comments: PATIENT WAS FASTINGPERFORMED BY: [facility]6370 [facility] [id number] Information: [id number] (36856) Immature Grans (Abs) 0.0 {x10E3/uL} (Normal) Range: [...] 3.77-5.28 WBC 5.9 {x10E3/uL} (Normal) Range: 4.0-10.5 63-Omp-783085:27 METABOLIC PANEL, COMPREHENSIVE Comments: PATIENT WAS FASTINGPERFORMED BY: [facility]Co[facility], Old BridgePqdlsf9797 [facility] [id number] (48564) ALT (SGPT) 16 [iU]/L (Normal) Range: 0-32 [...] Glucose, Serum 86 mg/dL (Normal) Range: 65-99 8-Rkl-234118:09 HgA1C , Office (81158) HgA1C , Office 6.0 % (Normal) Range: 4.6 - 7.1 :27 HEPATIC FUNCTION PANEL Comments: PATIENT WAS FASTINGPERFORMED BY: [place] 3560670 [facility] [id number] (54352) Bilirubin, Direct 0.09 mg/dL (Normal) Range: 0.00-0.40 :27 LIPID PANEL (65857) Comments: PATIENT WAS FASTINGPERFORMED BY: [place] 3560670 [facility] [id number] LDL/HDL Ratio 1.8 {ratio_units} (Normal) Range: 0.0-3.2 [...] Microscopic Examination Comments: PATIENT WAS FASTINGPERFORMED BY: [place] 3560670 [facility] [id number] Bacteria None seen (Normal) Mucus Threads Present (Normal) Epithelial Cells (non renal) 0-10 {/hpf} (Normal) Range: 0 - 10 RBC 0-3 {/hpf} (Normal) Range: 0 - 3 WBC 0-5 {/hpf} (Normal) Range: 0 - 5 :51 LIPID PANEL (92651) Comments: PATIENT WAS FASTINGPERFORMED BY: [place] 3560670 [facility] [id number]; f/u 06/08/12 LDL/HDL Ratio 1.4 {ratio_units} (Normal) [...] B-12 (CYANOCOBALAMIN) Comments: PATIENT WAS FASTINGPERFORMED BY: [employer] Zadnhp3077 [facility]in [place] [id number] (92873) Vitamin B12 702 pg/mL (Normal) Range: 211-946 :51 Vitamin D Hydroxy (29890) Comments: PATIENT WAS FASTINGPERFORMED BY: [facility] Lchyxt5103 [address] [facility] [place] [id number] Vitamin D, 25-Hydroxy 43.0 ng/mL (Normal) Range: 30.0-100.0 Comments: Vitamin D deficiency has been defined by the [place] ofPro[facility] Deacon[facility] Hospitalcine and an Endocrine Society practice guideline as alevel of serum 25-OH vitamin D less than 20 ng/mL (1,2).The Endocrine Society went on to further define vitamin Dinsufficiency as a level between 21 and 29 ng/mL (2).1. IOM ([place] of Medicine). 2010. Dietary reference intakes for calcium and D. [place]: The National Academies Press.2. Hannah MF, Hilda NC, Cindy FREED, et al. Evaluation, treatment, and prevention of vitamin D deficiency: an Endocrine Society clinical practice guideline. JCEM. 2010; 96(7):1911-30. :51 URINALYSIS, W/ MICRO (97158) Comments: PATIENT WAS FASTINGPERFORMED BY: [facility] Kyzgan8156 [facility] [id number] Microscopic Examination See below: (Normal) Microscopic Examination MICRON (Normal) Comments: Microscopic follows if indicated. Nitrite, Urine Negative (Normal) Urobilinogen,Semi-Qn 0.2 mg/dL (Normal) Range: 0.0-1.9 Bilirubin Negative (Normal) Occult Blood Negative (Normal) Ketones Negative (Normal) Glucose Negative (Normal) Protein Negative (Normal) WBC Esterase Negative (Normal) Appearance Clear (Normal) Urine-Color Yellow (Normal) pH 7.0 (Normal) Range: 5.0-7.5 Specific Worth 1.019 (Normal) Range: 1.005-1.030 32-Trs-536367:51 METABOLIC PANEL, Comments: PATIENT WAS FASTINGPERFORMED BY: [facility], Old BridgeLcwzch6504 [facility] [id number] Information: [id number] COMPREHENSIVE (59021) ALT (SGPT) 17 [iU]/L (Normal) Range: 0-40 [...] Glucose, Serum 95 mg/dL (Normal) Range: 65-99 66-Ehh-417527:51 TSH (78560) Comments: PATIENT WAS FASTINGPERFORMED BY: [facility]Co[facility], Old BridgeBhwitc2174 [facility] [id number] TSH 1.860 {uIU/mL} (Normal) Range: 0.450-4.500 85-Eah-370598:31 Blood Glucose , Office (96440) Blood Glucose , Office 119 (Normal) 06-Apm-802796:22 FECAL OCCULT- Tubes sent home (00944) FECAL OCCULT HGB ASSAY, QUAL, 1-3 SIMULTANEOU Negative (Normal) :56 CBC WITH MANUAL DIFF Comments: PATIENT WAS FASTINGPERFORMED BY: [facility]Co[facility], Old BridgePdwbzf7031 [facility] [id number] Information: [id number] (81004) Immature Grans (Abs) 0.0 {x10E3/uL} (Normal) Range: [...] {x10E3/uL} (Normal) Range: 4.0-10.5 :56 RETICULOCYTE COUNT [facility] (81046) Comments: PATIENT WAS FASTINGPERFORMED BY: [facility], Old BridgeLaapfj2791 [facility] [id number] Reticulocyte Count 0.9 % (Normal) Range: 0.5-3.0 :56 IRON BINDING CAPACITY (TIBC) Comments: PATIENT WAS FASTINGPERFORMED BY: [facility], Old BridgeOzajct6336 [facility] [id number] (08365) Iron Saturation 12 % (Abnormal) Range: 15-55 Iron, Serum 47 ug/dL (Normal) Range: 35-155 UIBC 342 ug/dL (Normal) Range: 150-375 Iron Bind.Cap.(TIBC) 389 ug/dL (Normal) Range: 250-450 :56 FERRITIN (13380) Comments: PATIENT WAS FASTINGPERFORMED BY: [facility], Old BridgeDvoilo4749 [facility] [id number] Ferritin, Serum 10 ng/mL (Abnormal) Range: 13-150 48-Jbr-549266:13 HgA1C , Office (66804) HgA1C , Office 5.8 % (Normal) Range: 4.6 - 7.1 :13 Blood Glucose , Office (17539) Blood Glucose , Office 116 (Normal) 5-Anz-426953:00 CBC WITH MANUAL DIFF Comments: PATIENT WAS FASTINGPERFORMED BY: [facility]nutsSelect [facility]6370 [facility] [id number] Information: [id number] (69562) Immature Grans (Abs) 0.0 {x10E3/uL} (Normal) Range: [...] 3.80-5.10 WBC 3.6 {x10E3/uL} (Abnormal) Range: 4.0-10.5 2-Nwx-840377:00 MICROALBUMIN: CREATININE RATIO Comments: PATIENT WAS FASTINGPERFORMED BY: [facility]Co[facility], Old BridgeMiiugk7547 [facility] [id number] (90652) AND (77590) Microalb/Creat Ratio 3.8 {mg/g_creat} (Normal) Range: 0.0-30.0 Creatinine, Urine 200.2 mg/dL (Normal) Range: 15.0-278.0 Microalbumin, Urine 7.7 ug/mL (Normal) Range: 0.0-17.0 2-Sbb-810759:00 METABOLIC PANEL, COMPREHENSIVE Comments: PATIENT WAS FASTINGPERFORMED BY: [employer]6370 [facility] [id number] (91460) ALT (SGPT) 12 [iU]/L (Normal) Range: 0-40 [...] Glucose, Serum 96 mg/dL (Normal) Range: 65-99 5-Nci-115440:00 LIPID PANEL (22687) Comments: PATIENT WAS FASTINGPERFORMED BY: Bionym6370 [facility] [id number] LDL/HDL Ratio 1.3 {ratio_units} (Normal) Range: 0.0-3.2 LDL Cholesterol Calc 99 mg/dL (Normal) Range: 0-99 VLDL Cholesterol Sumeet 26 mg/dL (Normal) Range: 5-40 HDL Cholesterol 75 mg/dL (Normal) Comments: According to ATP-III Guidelines, HDL-C >59 mg/dL is considered anegative risk factor for CHD. Triglycerides 129 mg/dL (Normal) Range: 0-149 Cholesterol, Total 200 mg/dL (Abnormal) Range: 100-199 62-Jqr-702957:12 HgA1C , Office (67160) HgA1C , Office 6.1 % (Normal) Range: 4.6 - 7.1 93-Jmq-319499:12 Blood Glucose , Office (10213) Blood Glucose , Office 100 (Normal) :46 Anaerobic and Aerobic Comments: PERFORMED BY: LabSelect [facility]6370 [facility] [id number] Information: SRC:FL LEFT ANKLE Culture Result 1 NG36 (Normal) Comments: No growth in 36 - 48 hours. Aerobic Culture Final report (Normal) Result 1 NANG72 (Normal) Comments: No anaerobic growth in 72 hours. Anaerobic Culture Final report (Normal) 61-Qro-801116:23 CHEST, PA AND LATERAL Radiology Report See [...] comparison study. Dictated on 02/16/11 1335 by Amanda Hathaway MDranscribed on 02/17/11 1036 by ITS IMPORTSign by Yousif Hathaway MD on 02/17/11 1037 Sign by: _ Yousif Hathaway MD :57 LIPID PANEL (55141) Comments: PATIENT WAS FASTINGPERFORMED BY: [facility], Old BridgeTqwthv4100 [facility] [id number] LDL/HDL Ratio 1.3 {ratio_units} (Normal) Range: 0.0-3.2 [...] PANEL, COMPREHENSIVE Comments: PATIENT WAS FASTINGPERFORMED BY: [employer] Xogwtx5865 [facility] [id number] (44387) ALT (SGPT) 18 [iU]/L (Normal) Range: 0-40 [...] Glucose, Serum 98 mg/dL (Normal) Range: 65-99 37-Kdf-295483:57 CBC WITH MANUAL DIFF Comments: PATIENT WAS FASTINGPERFORMED BY: [facility]CoR[facility], Old BridgeDkgjwc2131 [facility] [id number] Information: [id number] (75401) Immature Grans (Abs) 0.0 {x10E3/uL} (Normal) Range: [...] (Normal) Range: 4.0-10.5 :57 HgA1C , Office (29208) HgA1C , Office 5.9 % (Normal) Range: 4.6 - 7.1 :57 Blood Glucose , Office (46608) Blood Glucose , Office 94 (Normal) :46 DEXA BONE DENSITY STUDY (HP) Radiology Report See Note (Normal) Comments: CLINICAL:Female, 65 years old. Postmenopausal with past history of steroid use,family history and bone fracture. EXAMINATION:DUAL ENERGY X-RAY ABSORPTIOMETRY / DEXA. TECHNIQUE:Bone Mineral Density (BMD ) measurements of lumbar spine and bilateralhipswere obtained using a InThrMa scanner.. COMPARISON:Prior bone density of November 27, [...] MeridaTranscribed on 11/28/102030 by ITS IMPORTSign by Eran Merida on 11/28/102031 Sign by: Erna Merida 10-Rkc-543952:06 Vitamin D Hydroxy (30840) Comments: PATIENT WAS FASTINGPERFORMED BY: Bionym6370 [facility] [id number] Vitamin D, 25-Hydroxy 51.1 ng/mL (Normal) Range: 32.0-100.0 Comments: Recent studies consider the lower limit of 32.0 ng/mL to be athreshold for optimal health.Fred VILLARREAL. J Nutr. 2004;135(2):317-22. 08-And-107568:06 LIPID PANEL (15690) Comments: PATIENT WAS FASTINGPERFORMED BY: Bionym6370 [facility] [id number] LDL Cholesterol Calc 66 mg/dL (Normal) Range: 0-99 LDL/HDL Ratio 0.8 {ratio_units} (Normal) Range: 0.0-3.2 VLDL Cholesterol Sumeet 20 mg/dL (Normal) Range: 5-40 HDL Cholesterol 88 mg/dL (Normal) Comments: According to ATP-III Guidelines, HDL-C >59 mg/dL is considered anegative risk factor for CHD. Cholesterol, Total 174 mg/dL (Normal) Range: 100-199 Triglycerides 99 mg/dL (Normal) Range: 0-149 42-Rsu-404050:06 CBC WITH MANUAL DIFF Comments: PATIENT WAS FASTINGPERFORMED BY: [facility]CoR[facility], Old BridgeGvxaat6021 [facility] [id number] Information: [id number] (41457) Immature Grans (Abs) 0.0 {x10E3/uL} (Normal) Range: [...] 3.80-5.10 WBC 4.8 {x10E3/uL} (Normal) Range: 4.0-10.5 34-Dim-090211:06 METABOLIC PANEL, COMPREHENSIVE Comments: PATIENT WAS FASTINGPERFORMED BY: [employer]70 [facility] [id number] (00059) ALT (SGPT) 25 [iU]/L (Normal) Range: 0-40 [...] Glucose, Serum 85 mg/dL (Normal) Range: 65-99 59-Pbl-514015:06 MICROALBUMIN: CREATININE RATIO Comments: PATIENT WAS FASTINGPERFORMED BY: [employer]70 [facility] [id number] (75272) AND (80440) Creatinine, Urine 220.5 mg/dL (Normal) Range: 15.0-278.0 Microalb/Creat Ratio 5.4 {mg/g_creat} (Normal) Range: 0.0-30.0 Microalbumin, Urine 12.0 ug/mL (Normal) Range: 0.0-17.0 27-Zwe-748562:10 HgA1C , Office (15974) HgA1C , Office 5.8 % (Normal) Range: 4.6 - 7.1 89-Kpk-669024:10 Blood Glucose , Office (17109) Blood Glucose , Office 107 (Normal) 9-Djv-821352:23 Microscopic Examination Comments: PATIENT NOT FASTINGPERFORMED BY: [facility], Old BridgeSlvsxw1021 [facility] [id number] Bacteria Few (Normal) Mucus Threads Present (Normal) Epithelial Cells (non renal) 0-10 {/hpf} (Normal) Range: 0 - 10 RBC 0-3 {/hpf} (Normal) Range: 0 - 3 WBC 0-5 {/hpf} (Normal) Range: 0 - 5 :23 VITAMIN B-12 (CYANOCOBALAMIN) Comments: PATIENT NOT FASTINGPERFORMED BY: [facility]nutsSelect [facility]6370 [facility] [id number] (78760) Vitamin B12 685 pg/mL (Normal) Range: 211-946 0-Uqw-088995:23 URINALYSIS, W/ MICRO (62179) Comments: PATIENT NOT FASTINGPERFORMED BY: TravelnutsJoseph [place] 3530370 [facility] [id number] Microscopic Examination See below: (Normal) Microscopic Examination MICRON (Normal) Comments: Microscopic follows if indicated. Nitrite, Urine Negative (Normal) Urobilinogen,Semi-Qn 0.2 mg/dL (Normal) Range: 0.0-1.9 Bilirubin Negative (Normal) Appearance Clear (Normal) Glucose Negative (Normal) Ketones Negative (Normal) Occult Blood Negative (Normal) Protein Negative (Normal) WBC Esterase Negative (Normal) pH 6.5 (Normal) Range: 5.0-7.5 Urine-Color Yellow (Normal) Specific Worth 1.020 (Normal) Range: 1.005-1.030 :23 TSH ([id number]) Comments: PATIENT NOT FASTINGPERFORMED BY: [facility] [facility] [id number] TSH 1.630 {uIU/mL} (Normal) Range: 0.450-4.500 :23 CBC WITH MANUAL DIFF Comments: PATIENT NOT FASTINGPERFORMED BY: [facility] [facility] [id number] Information: [id number] ([id number]) Immature Grans (Abs) 0.0 {x10E3/uL} (Normal) Range: [...] (Normal) Range: 4.0-10.5 :25 HgA1C , Office (42497) HgA1C , Office 5.8 % (Normal) Range: 4.6 - 7.1 :25 Blood Glucose , Office (18420) Blood Glucose , Office 106 (Normal) :35 Rapid Strep Test, Office (49206) Rapid Strep Test, Office Negative (Normal) :41 HEPATIC FUNCTION PANEL Comments: PATIENT WAS FASTINGPERFORMED BY: [employer] [id number] [facility] [id number] Information: [id number] (24371) ALT (SGPT) 19 [iU]/L (Normal) Range: 0-40 Alkaline Phosphatase, S 63 [iU]/L (Normal) Range: 25-165 AST (SGOT) 22 [iU]/L (Normal) Range: 0-40 Albumin, Serum 4.5 g/dL (Normal) Range: 3.6-4.8 Bilirubin, Direct 0.13 mg/dL (Normal) Range: 0.00-0.40 Bilirubin, Total 0.4 mg/dL (Normal) Range: 0.0-1.2 Protein, Total, Serum 6.2 g/dL (Normal) Range: 6.0-8.5 :41 LIPID PANEL (91268) Comments: PATIENT WAS FASTINGPERFORMED BY: [employer] [id number] [facility] [id number] LDL/HDL Ratio 1.1 {ratio_units} (Normal) Range: 0.0-3.2 HDL Cholesterol 66 mg/dL (Normal) Comments: According to ATP-III Guidelines, HDL-C >59 mg/dL is considered anegative risk factor for CHD. LDL Cholesterol Calc 75 mg/dL (Normal) Range: 0-99 Triglycerides 78 mg/dL (Normal) Range: 0-149 VLDL Cholesterol Sumeet 16 mg/dL (Normal) Range: 5-40 Cholesterol, Total 157 mg/dL (Normal) Range: 100-199 61-Pfa-269953:41 Vitamin D Hydroxy (18953) Comments: PATIENT WAS FASTINGPERFORMED BY: [facility], Old BridgeUfqavo8320 [facility] [id number] Vitamin D, 25-Hydroxy 46.3 ng/mL (Normal) Range: 32.0-100.0 Comments: Recent studies consider the lower limit of 32.0 ng/mL to be athreshold for optimal health.Fred VILLARREAL. J Nutr. 2004;135(2):317-22. :54 HgA1C , Office (92965) HgA1C , Office 6.2 % (Normal) Range: 4.6 - 7.1 :54 Blood Glucose , Office (35521) Blood Glucose , Office 91 (Normal) :34 CBCD,SMEAR DIFF RED CELL MORPH SeeNote {NORMAL} [...] 6.4-8.2 GLU 91 mg/dL (Normal) Range: 70-110 83-Tbl-847119:34 D BILI 0.06 mg/dL (Normal) Range: 0.00-0.30 22-Zjx-395504:34 LIPID HDL 60 mg/dL (Normal) Comments: Reference [...] CHOL 223 mg/dL (Abnormal) Comments: <200 mg/dL Vwcsirhme662-750 mg/dL Borderline>240 mg/dL High Risk 88-Ddk-323255:34 MICROALB:CRE UR MALB:CREAT 5.4 {mg/g_CRE} (Normal) MICROALBUMIN,UR 10.9 mg/L (Normal) UR CREAT 199.6 mg/dL (Normal) 35-Tit-933260:34 VIT D,25 69011 36.2 ng/mL (Normal) Range: 32.0-100.0 Comments: Recent studies consider the lower limit of 32.0 ng/mL to adan threshold for optimal health.Fred VILLARREAL. J Nutr. 2004;135(2):317-22.Performed at: - [facility] [id number] Director: Roseann Carter MD :28 HgA1C , Office (85383) HgA1C , Office 5.9 % (Normal) Range: 4.6 - 7.1 :28 Blood Glucose , Office (03005) Blood Glucose , Office 103 (Normal) 64-Jdx-868027:07 LIPID CHOL 205 mg/dL (Abnormal) Comments: <200 mg/dL Czckoreyr595-771 mg/dL Borderline>240 mg/dL High Risk HDL 76 mg/dL (Normal) Comments: Reference RangeHDL <40 mg/dL Low HDL CholesterolHDL >or= 60 mg/dL High HDL Cholesterol LDL 105 mg/dL (Normal) Range: 0-130 TRIG 121 mg/dL (Normal) Comments: Serum Triglycerides Reference IntervalNormal <150 mg/dLBorderline high 150 - 199 mg/dLHigh 200 - 499 mg/ dLVery High > or = 500 mg/dL VLDL 24 mg/dL (Normal) Range: 5-40 :07 LIVER ALB 3.9 g/dL (Normal) Range: 3.4-5.0 ALK P 72 U/L (Normal) Range: 50-136 ALT 29 U/L (Normal) Range: 12-78 AST 15 U/L (Normal) Range: 15-37 D BILI 0.09 mg/dL (Normal) Range: 0.00-0.30 T BILI 0.40 mg/dL (Normal) Range: 0.00-1.00 T PROT 6.9 g/dL (Normal) Range: 6.4-8.2 :27 Blood Glucose , Office (84740) Blood Glucose , Office 97 (Normal) :26 HgA1C , Office (30701) HgA1C , Office 5.6 % (Normal) Range: [...] (Normal) Range: 0.358-3.74 :58 HgA1C , Office (38203) HgA1C , Office 5.6 % (Normal) Range: 4.6 - 7.1 :58 Blood Glucose , Office (20646) Blood Glucose , Office 110 (Normal) :11 [...] T PROT 6.6 g/dL (Normal) Range: 6.4-8.2 32-Amb-450549:11 LIPID CHOL 179 mg/dL (Normal) Comments: <200 [...] mg/dL VLDL 22 mg/dL (Normal) Range: 5-40 73-Fiw-279298:11 PHOS 2.6 mg/dL (Normal) Range: 2.5-4.9 79-Xaj-640132:11 PROT.[id number] ALBUMIN,UR 31.3 % (Normal) NATGY-0-TIDB,U 1.6 % (Normal) LJKUF-2-QACX,U 13.0 % (Normal) BETA GLOB,U 40.1 % (Normal) GAMMA GLOB,U 14.0 % (Normal) M-SPIKE,U SeeNote % (Normal) Comments: Result: Not Observed NOTE Comment (Normal) Comments: Protein electrophoresis scan will follow via computer,mail, or wet process technician delivery. PROTEIN,UR 10.2 mg/dL (Normal) Range: 0.0-15.0 :11 PTH,[id number] PTH,Intact 28 pg/mL (Normal) Range: 15-65 Comments: Performed At: [facility] [place], [place] [id number] 33-Iyr-747429:11 SPE [id number] A/G RATIO 1.7 (Normal) Range: 0.7-2.0 ALBUMIN [...] electrophoresis scan will follow via computer,mail, or wet process technician delivery. PROTEIN,TOTAL 6.3 g/dL (Normal) Range: 6.0-8.5 5-Fsk-440944:05 TRANSVAGINAL NON-PREG US () Radiology Report See Note (Normal) Comments: Exam Number: [id number] PELVIC ULTRASOUND HISTORYAbnormal pelvic exam. Transabdominal and transvaginal studies were performed. Highresolution real time sector images were obtained. The [facility] angela is sandra l in size measuring [...] not seen. Reported By: JAVY CASTRO M.D. 1-Bzj-525120:51 PELVIC (NON-PREG) (HP) Radiology Report See Note (Normal) Comments: Exam Number: [id number] PELVIC ULTRASOUND HISTORYAbnormal pelvic exam. Transabdominal and transvaginal studies were performed. Highresolution real time sector images were obtained. The [facility] angela is sandra l in size measuring [...] not seen. Reported By: JAVY CASTRO M.D. 72-Frc-536389:41 Thin prep Pap Comments: Source.............Cervical;EndocervicalLMP / Prev Treat...PTX=[id number]. of containers..01 CYTYC Thin Prep VialPATIENT NOT FASTINGClinical Information: ADD [id number] (09055) PERFORMED BY: [employer] [id number] . . (Normal) DIAGNOSIS: SPRCS (Normal) Comments: NEGATIVE FOR INTRAEPITHELIAL LESION AND MALIGNANCY.Satisfactory for evaluation. Endocervical component may not bedistinguished in cases of atrophy.V72.31 ; Routine gynecological examination Lilly Bravo, [employer] Operator ([facility]) Note: PAPSMR (Normal) Comments: The [...] was performed. . :35 HgA1C , Office (33173) HgA1C , Office 5.5 % (Normal) Range: 4.6 - 7.1 :35 Blood Glucose , Office (73146) Blood Glucose , Office 102 (Normal) :54 [...] 47-70 WBC 4.9 K/mm3 (Normal) Range: 4.4-11.0 5-Xap-203862:54 COMP METABOLIC A/G 1.2 {RATIO} (Normal) Range: [...] for patient's is the eGFRmultiplied by 1.212. [facility] Laboratory uses the abbreviated Modification of [...] Disease W/O Kidney Disease>/= 90 Stage One Avbzat44 - 89 Stage Two Suspect Decreased GFR30 [...] {uIU/mL} (Normal) Range: 0.34-4.82 :54 VIT D,25 92233 40.7 ng/mL (Normal) Range: 32.0-100.0 Comments: Recent studies consider the lower limit of 32.0 ng/mL to adan threshold for optimal health.Fred VILLARREAL. J Nutr. 2004;135(2):317-22.Performed At: [address] [id number] 29-Mst-987983:19 DEXA BONE DENSITY STUDY (HP) Radiology Report See Note (Normal) Comments: Exam Number: [id number] BONE DENSITOMETRY HISTORYOsteopenia. TECHNIQUE Bone densitometry of [...] left hip. Reported By: JAVY CASTRO M.D. 97-Uwo-349584:57 KNEE,3 VIEWS (MT) Radiology Report See Note (Normal) Comments: Exam Number: [id number] LEFT KNEE CLINICAL INFORMATIONFall, pain. 3 views [...] seen otherwise. Reported By: SHANELL LOFTON M.D. 78-Wlx-622032:34 Blood Glucose , Office (59743) Blood Glucose , Office 113 (Normal) 68-The-274415:34 HgA1C , Office (33227) HgA1C , Office 5.8 % (Normal) Range: 4.6 - 7.1 45-Qax-613066:19 HEPATIC FUNCTION PANEL Comments: PATIENT WAS FASTINGClinical Information: ADD DRAW FEE [id number] ADD J 06593 PERFORMED BY: BERE VostuRaritan [facility], Old BridgeWuexte0685 [facility] [id number] (51614) Albumin, Serum 4.6 g/dL (Normal) Range: 3.6-4.8 Alkaline Phosphatase, S 83 [iU]/L (Normal) Range: 25-165 ALT (SGPT) 17 [iU]/L (Normal) Range: 0-40 AST (SGOT) 22 [iU]/L (Normal) Range: 0-40 Bilirubin, Direct 0.12 mg/dL (Normal) Range: 0.00-0.40 Bilirubin, Total 0.5 mg/dL (Normal) Range: 0.1-1.2 Protein, Total, Serum 7.0 g/dL (Normal) Range: 6.0-8.5 :19 LIPID PANEL (98036) Comments: PATIENT WAS FASTINGPERFORMED BY: [employer] Wgeffe9677 [facility] [id number] Cholesterol, Total 186 mg/dL (Normal) Range: 100-199 HDL Cholesterol 66 mg/dL (Abnormal) Range: 40-59 Comments: HDL cholesterol values >59 mg/dL are associated with reduced cardiacrisk. LDL Cholesterol Calc 99 mg/dL (Normal) Range: 0-99 LDL/HDL Ratio 1.5 {ratio_units} (Normal) Range: 0.0-3.2 Triglycerides 107 mg/dL (Normal) Range: 0-149 VLDL Cholesterol Sumeet 21 mg/dL (Normal) Range: 5-40 97-Rke-814329:16 HgA1C , Office (57851) HgA1C , Office 5.5 % (Normal) Range: 4.6 - 7.1 46-Seh-979953:16 Blood Glucose , Office (24620) Blood Glucose , Office 125 (Normal) 79-Yvf-141890:03 MICROALBUMIN: CREATININE RATIO Comments: PATIENT WAS FASTINGPERFORMED BY: [employer] [id number] (42591) AND (17399) Microalbum.,U,Random 3.8 ug/mL (Normal) Range: 0.0-17.0 01-Ayp-328995:03 HEPATIC FUNCTION PANEL Comments: PATIENT WAS FASTINGClinical Information: ADD DRAW FEE 810539 ADD J 88565 PERFORMED BY: Zee LearnRaritan Bay [facility], Old BridgeWnjljt2046 [facility] [id number] (37102) Albumin, Serum 4.8 g/dL (Normal) Range: 3.6-4.8 Alkaline Phosphatase, S 77 [iU]/L (Normal) Range: 25-165 ALT (SGPT) 20 [iU]/L (Normal) Range: 0-40 AST (SGOT) 22 [iU]/L (Normal) Range: 0-40 Bilirubin, Direct 0.11 mg/dL (Normal) Range: 0.00-0.40 Bilirubin, Total 0.4 mg/dL (Normal) Range: 0.1-1.2 Protein, Total, Serum 7.0 g/dL (Normal) Range: 6.0-8.5 :03 LIPID PANEL (92872) Comments: PATIENT WAS FASTINGPERFORMED BY: [employer] [facility] [id number] Cholesterol, Total 205 mg/dL (Abnormal) Range: 100-199 [...] (Normal) Range: 5-40 :53 HgA1C , Office (17387) HgA1C , Office 5.4 % (Normal) Range: 4.6 - 7.1 :52 Blood Glucose , Office (09308) Blood Glucose , Office 96 (Normal) :42 CHEST, PA AND LATERAL Radiology Report See Note (Normal) Comments: Exam Number: [id number] PA AND LATERAL CHEST HISTORY Being done for cough. Cardiac configuration is normal. There are mild emphysematouschanges. No acute infiltrate, effusion, or pneumothorax isidenti fied. There is spur formation mid dorsal spine. These findingswere all seen on December 10, 2006, and are unchanged. IMPRESSIONNo acute change noted in the lungs. Reported By: CHANEL SANDY M.D. 67-Lir-636814:32 LIPID PANEL (62126) Comments: PATIENT WAS FASTINGPERFORMED BY: [employer] [facility] [id number] Cholesterol, Total 204 mg/dL (Abnormal) Range: 100-199 [...] Cholesterol Sumeet 25 mg/dL (Normal) Range: 5-40 03-Cxs-749791:32 URINALYSIS W/O MICRO (84369) Comments: PATIENT WAS FASTINGPERFORMED BY: [employer] [facility] [id number] Appearance Clear (Normal) Bilirubin Negative (Normal) Glucose Negative (Normal) Ketones Negative (Normal) Microscopic Examination MICRON (Normal) Comments: Microscopic follows if indicated. Nitrite, Urine Negative (Normal) Occult Blood Negative (Normal) pH 6.5 (Normal) Range: 5.0-7.5 Protein Negative (Normal) Specific Worth 1.019 (Normal) Range: 1.005-1.030 Urine-Color Yellow (Normal) Urobilinogen,Semi-Qn 0.2 mg/dL (Normal) Range: 0.0-1.9 WBC Esterase Negative (Normal) 80-Nms-699562:32 TSH (24770) Comments: PATIENT WAS FASTINGPERFORMED BY: [employer]70 [facility] [id number] TSH 2.348 {uIU/mL} (Normal) Range: 0.350-5.500 53-Syg-262597:32 METABOLIC PANEL, COMPREHENSIVE Comments: PATIENT WAS FASTINGPERFORMED BY: [facility]CoR[facility], Old BridgeWfwaap2585 [facility] [id number] (21099) A/G Ratio 1.7 (Normal) Range: 1.1-2.5 Albumin, [...] Sodium, Serum 141 mmol/L (Normal) Range: 135-148 35-Wyb-051416:32 CBC WITH MANUAL DIFF (00265) Comments: PATIENT WAS FASTINGClinical Information: ADD DRAW FEE 580537 ADD J 45042 PERFORMED BY: [facility]CoR[facility], Old BridgeDjzkhz2632 [facility] [id number] Baso (Absolute) 0.0 {x10E3/uL} (Normal) Range: 0.0-0.2 [...] Range: 4.0-10.5 :56 Blood Glucose , Office (68189) Blood Glucose , Office 84 (Normal) :56 HgA1C , Office (24165) HgA1C , Office 5.4 % (Normal) Range: 4.6 - 7.1 :12 Blood Glucose , Office (35448) Comments: [facility] Blood Glucose , Office 94 (Normal) :12 HgA1C , Office (42292) Comments: [facility] HgA1C , Office 5.3 % (Normal) [...] :27 BLOOD TYPE PT A NEGATIVE (Normal) : [...] 3.5-5.1 NA 139 mmol/L (Normal) Range: 136-145 : CBC HCT 37.8 % (Normal) Range: 37-47 HGB 12.9 g/dL (Normal) Range: 12.0-16.0 MCH 29.5 pg (Normal) Range: 27.0-32.0 MCHC 34.2 g/dL (Normal) Range: 32-36 MCV 86.4 fL (Normal) Range: 81-99 PLT 309 K/mm3 (Normal) Range: 150-450 RBC 4.38 {M/mm3} (Normal) Range: 4.2-5.4 RDW 13.8 % (Normal) Range: 11.6-14.6 WBC 4.4 K/mm3 (Normal) Range: 4.4-11.0 :52 HgA1C , Office (49628) Comments: [facility] HgA1C , Office 5.2 % (Normal) Range: 4.6 - 7.1 :52 Blood Glucose , Office (09125) Comments: [facility] Blood Glucose , Office 99 (Normal) [...] 11.6-14.6 WBC 8.2 K/mm3 (Normal) Range: 4.4-11.0 4-Tac-171029:00 COMPLETE UA Comments: COMMENTS: CULTURE IF WBC>5Precautions*: [...] 3.5-5.1 NA 138 mmol/L (Normal) Range: 136-145 22-Awv-821559:12 BMP CL 104 mmol/L (Normal) Range: 98-107 CO2 31.5 mmol/L (Abnormal) Range: 22.0-29.0 GAP 4 (Abnormal) Range: 5-15 K 4.3 mmol/L (Normal) Range: 3.5-5.1 BUN 13 mg/dL (Normal) Range: 7-18 BUN/CRE 16.3 {RATIO} (Normal) Range: 10-20 CA 8.7 mg/dL (Normal) Range: 8.5-10.1 CREAT,SERUM 0.8 mg/dL (Normal) Range: 0.6-1.0 GLU 70 mg/dL (Normal) Range: 70-110 NA 139 mmol/L (Normal) Range: 136-145 75-Gkz-179983:12 CBC HCT 37.4 % (Normal) Range: 37-47 HGB 12.8 g/dL (Normal) Range: 12.0-16.0 MCH 30.5 pg (Normal) Range: 27.0-32.0 MCHC 34.1 g/dL (Normal) Range: 32-36 MCV 89.4 fL (Normal) Range: 81-99 PLT 295 K/mm3 (Normal) Range: 150-450 RBC 4.19 {M/mm3} (Abnormal) Range: 4.2-5.4 RDW 12.8 % (Normal) Range: 11.6-14.6 WBC 6.2 K/mm3 (Normal) Range: 4.4-11.0 77-Hvs-420328:12 PRO TIME INR 0.9 (Normal) PROTIME 11.7 s (Normal) Range: 11.7-13.3 :12 PTT 30.0 s (Normal) Range: 24.6-36.6 :34 Blood Glucose , Office (29005) Blood Glucose , Office 109 (Normal) :34 HgA1C , Office (74825) HgA1C , Office 5.4 % (Normal) Range: 4.6 - 7.1 :42 GLUP 141 mg/dL (Abnormal) Comments: GLU,2HPPG 75gm GLUC PPG GLUP from 1127:[id number]. Comments: Glucose result from 140 to <200 mg/dL suggestsIMPAIRED GLUCOSE HOMEOSTASIS per A.D.A. criteria. :37 B12/FOLATES 810 FOLATES,S 2013 19.9 ng/mL (Normal) Comments: Indeterminate: 3.4 - 5.4 Deficient: <3.4Performed At: [facility] [address] [place], [place] [id number] VIT B12 1503 375 pg/mL (Normal) Range: 211-911 80-Goh-763674:37 CBCD,SMEAR DIFF BAND 2 % (Normal) Range: [...] 47-70 WBC 6.7 K/mm3 (Normal) Range: 4.4-11.0 06-Lzi-736768:37 COMP METABOLIC A/G 1.5 {RATIO} (Normal) Range: [...] Plan of Care Name Dates Details Instructions Gastric reflux syndrome : GERD Education Indication: [...] syndrome Obstructive sleep apnea, adult : Reviewed Scooper Letter Indication: Obstructive sleep apnea, adult Abnormal [...] DIAGNOSTIC TESTS Indication: Symptom, Cough Planned Observations CALCIFEDIOL (27746)Indication: Depression On: :31 Request TSH (34552)Indication: Abnormal glucose tolerance test On: Request URINALYSIS, W/ MICRO (02102)Indication: Abnormal glucose tolerance test On: Request MICROALBUMIN: CREATININE RATIO (74594) AND (96721)Indication: Abnormal glucose tolerance test On: Request METABOLIC PANEL, COMPREHENSIVE (52341)Indication: Abnormal glucose tolerance test On: 6-Vrz-687493:29 Request LIPOPROTEIN, BLD, BY NMR (96700)Indication: Abnormal glucose tolerance test On: :29 Request CBC W/AUTO DIFF WBC (60380)Indication: Abnormal glucose tolerance test On: 4-Anl-241016:29 Request Clostridium difficile Toxin A+B, EIA (60802)Indication: Diarrhea On: 10-Fef-496564:04 Request Cologuard - Strool Based DNA Test, CRC SCREEN (71412)Indication: Encounter for screening for malignant neoplasm of colon (Renamed from Special screening for malignant neoplasms, colon) On: 13-Zab-065961:58 Request Lipid Panel (06362)Indication: Other hyperlipidemia On: 63-Msb-716402:58 Request CBC WITH MANUAL DIFF (79869)Indication: Other hyperlipidemia On: 97-Ssj-194111:58 Request MICROALBUMIN: CREATININE RATIO (20094) AND (46311)Indication: Other hyperlipidemia On: 65-Vmo-410192:58 Request URINALYSIS (10098)Indication: Other hyperlipidemia On: 40-Twf-823249:58 Request TSH (61330)Indication: Other hyperlipidemia On: 90-Uwv-738964:58 Request Metabolic Panel, Comprehensive (44298)Indication: Other hyperlipidemia On: 29-Blr-499031:57 Request GIARDIA LAMBLIA ANTIBODY (99581)Indication: Diarrhea (Renamed from D (diarrhea)) On: :29 Request WON CULTURE-STOOL (34900)Indication: Diarrhea (Renamed from D (diarrhea)) On: :29 Request OCCULT BLOOD FECES SCREEN (48980)Indication: Diarrhea (Renamed from D (diarrhea)) On: : Request LEUKOCYTE COUNT, FECAL (97167)Indication: Diarrhea (Renamed from D (diarrhea)) On: : Request C-DIFFICILE, STOOL (34413)Indication: Diarrhea (Renamed from D (diarrhea)) On: :27 Request PDOGW-DECIHAREFDN-IMIWH (34014)Indication: Elevated AFP On: 6-Aqh-494460:55 Request UGVAX-STDGJNZWJAY-AYNDE (02384)Indication: Elevated tumor markers On: 74-Sfs-735033:39 Request VITAMIN B12 AND FOLATES (56880)Indication: Other hyperlipidemia On: :39 Request CALCIFEDIOL (23358)Indication: Other hyperlipidemia On: :39 Request TSH (THYROID STIMULATING HORMONE) (21963)Indication: Other hyperlipidemia On: :39 Request LIPID PANEL (44852)Indication: Other hyperlipidemia On: :39 Request METABOLIC PANEL, COMPREHENSIVE (59707)Indication: Other hyperlipidemia On: :39 Request CBC, PLATELETS & AUT DIFF (30996)Indication: Other hyperlipidemia On: :39 Request CBC W/AUTO DIFF WBC (78495)Indication: Abnormal glucose tolerance test On: :05 Request LIPID PANEL (96838)Indication: Other hyperlipidemia On: :04 Request METABOLIC PANEL, COMPREHENSIVE (10198)Indication: Abnormal glucose tolerance test On: :04 Request MICROALBUMIN: CREATININE RATIO (55614) AND (32030)Indication: Abnormal glucose tolerance test On: :04 Request FSCRM-AWWOVBVURVU-XEAVQ (06239)Indication: Other chronic nonalcoholic liver disease On: :02 Request TSH (82158)Indication: Depression On: 28-Ycr-205911:37 Request LIPID PANEL (83532)Indication: Hyperlipidemia, unspecified On: 75-Kwh-764658:36 Request CPPML-ISWMHRMNEMA-TKZJG (22901)Indication: Other chronic nonalcoholic liver disease On: 49-Xvw-970524:35 Request CBC W/AUTO DIFF WBC (24831)Indication: Abnormal glucose tolerance test On: 41-Pja-017289:35 Request METABOLIC PANEL, COMPREHENSIVE (23612)Indication: Abnormal glucose tolerance test On: 31-Uma-082683:35 Request FECAL OCCULT HGB ASSAY- tubes sent home (67305)Indication: Anemia, unspecified On: 60-Omz-450698:19 Request METABOLIC PANEL, COMPREHENSIVE (95684)Indication: Abnormal glucose tolerance test On: 52-Rwq-444191:43 Request IRON (32748)Indication: Anemia, unspecified On: 87-Vkm-344798:30 Request HgA1C , Office (86488)Indication: Abnormal glucose tolerance test On: 94-Qas-847408:53 Request UPEP (73192)Indication: Osteopenia On: 73-Avk-435684:50 Request SPEP (61139)Indication: Osteopenia On: :50 Request UPEP (41322)Indication: Osteopenia On: 35-Xdc-961784:13 Request SPEP (56365)Indication: Osteopenia On: 93-Bvd-400486:13 Request TSH (90824)Indication: Osteopenia On: :23 Request PHOSPHORUS (47814)Indication: Osteopenia On: :23 Request PARATHORMONE (67654)Indication: Osteopenia On: :23 Request URINE CALCIUM OSMAR TIMED 24 Hour (99406)Indication: Osteopenia On: :23 Request UPEP (56708)Indication: Osteopenia On: :23 Request SPEP (43613)Indication: Osteopenia On: :23 Request C-DIFFICILE, STOOL (38843)Indication: Clostridium difficile infection On: 2-Fre-013617:25 Request C-DIFFICILE, STOOL (58105)Indication: Diarrhea (Renamed from D (diarrhea)) On: 00-Jws-899238:57 Request WON CULTURE-STOOL (99030)Indication: Diarrhea (Renamed from D (diarrhea)) On: 58-Ocd-039908:06 Request C-DIFFICILE, STOOL (61569)Indication: Diarrhea (Renamed from D (diarrhea)) On: :05 Request LEUKOCYTE COUNT, FECAL (48359)Indication: Diarrhea (Renamed from D (diarrhea)) On: 74-Fyu-271797:05 Request OCCULT BLOOD FECES SCREEN (29943)Indication: Diarrhea (Renamed from D (diarrhea)) On: :05 Request OVA & PARASITE DIR SMEAR (70079)Indication: Diarrhea (Renamed from D (diarrhea)) On: :05 Request C DIFF AMPLIFIED PROBE (43218)Indication: Diarrhea (Renamed from D (diarrhea)) On: 92-Vex-365833:53 Request Rapid Flu (03035 x 2)Indication: Symptom, Cough On: 8-Jjp-416446:35 Request URINE WON CULTURE-OSMAR COL COUNT (57309)Indication: Hematuria (Renamed from Blood in the urine) On: 6-Lzf-612926:28 Request Urinalysis, Office (75390)Indication: Hematuria (Renamed from Blood in the urine) On: 3-Qyc-906910:00 Request HgA1C , Office (78828)Indication: Abnormal glucose tolerance test On: 15-Bal-110138:31 Request IRON (11019)Indication: Iron deficiency anemia, unspecified On: 07-Xfa-567119:22 Request BACT CULTURE ANY-ANAEROBIC (67084)Indication: CELLULITIS/ABSCESS, FOOT On: 48-Rol-323132:02 Request Comments: left ankle MICROALBUMIN: CREATININE RATIO (23288) AND (51321)Indication: Abnormal glucose tolerance test On: : Request CBC WITH MANUAL DIFF (75833)Indication: Abnormal glucose tolerance test On: : Request METABOLIC PANEL, COMPREHENSIVE (82721)Indication: Abnormal glucose tolerance test On: :22 Request Vitamin D Hydroxy (08771)Indication: Osteopenia On: :21 Request HEPATIC FUNCTION PANEL (87857)Indication: Hyperlipidemia, unspecified On: :21 Request LIPID PANEL (47691)Indication: Hyperlipidemia, unspecified On: :21 Request HEPATIC FUNCTION PANEL (47964)Indication: Hyperlipidemia, unspecified On: 47-Udz-411859:47 Request LIPID PANEL (59356)Indication: Hyperlipidemia, unspecified On: :47 Request TSH (39433)Indication: Other and unspecified disorders of circulatory system On: :41 Request METABOLIC PANEL, COMPREHENSIVE (12300)Indication: Abnormal glucose tolerance test On: :41 Request MICROALBUMIN: CREATININE RATIO (27703) AND (73997)Indication: Abnormal glucose tolerance test On: :34 Request LIPID PANEL (79686)Indication: Hyperlipidemia, unspecified On: :34 Request PT (Prothrobim Time) (99100)Indication: Other and unspecified disorders of circulatory system On: :34 Request PTT (Activated Partial Thromboplastin Time) (46744)Indication: Other and unspecified disorders of circulatory system On: :34 Request CBC WITH MANUAL DIFF (67285)Indication: Other and unspecified disorders of circulatory system On: 85-Wui-083456:34 Request HEPATIC FUNCTION PANEL (30961)Indication: Hyperlipidemia, unspecified On: 84-Ihd-362955:17 Request LIPID PANEL (85606)Indication: Hyperlipidemia, unspecified On: :17 Request UPEP (89556)Indication: Osteopenia On: :52 Request SPEP ([id number])Indication: Osteopenia On: :51 Request PHOSPHORUS ([id number])Indication: Osteopenia On: :51 Request PARATHORMONE ([id number])Indication: Osteopenia On: :51 Request MICROALBUMIN: CREATININE RATIO ([id number]) AND ([id number])Indication: Abnormal glucose tolerance test On: 14-Ehn-570348:44 Request LIPID PANEL ([id number])Indication: Hyperlipidemia, unspecified On: 73-Mpr-169480:38 Request METABOLIC PANEL, COMPREHENSIVE ([id number])Indication: Abdominal pain, acute, generalized On: 08-Kkq-976081:38 Request CBC WITH MANUAL DIFF ([id number])Indication: Abdominal pain, acute, generalized On: 51-Hpp-160824:38 Request TSH ([id number])Indication: Osteopenia On: 13-Iak-988943:38 Request Vitamin D Hydroxy ([id number])Indication: Osteopenia On: 68-Gyw-727898:38 Request LIPID PANEL ([id number])Indication: Other hyperlipidemia On: 85-Mzm-623258:33 Request GLUCOSE, PP/2 HOUR ([id number])Indication: Fatigue On: :59 Request URINALYSIS W/O MICRO ([id number])Indication: Fatigue On: :58 Request TSH ([id number])Indication: Fatigue On: :58 Request CBC WITH MANUAL DIFF ([id number])Indication: Fatigue On: :58 Request METABOLIC PANEL, COMPREHENSIVE ([id number])Indication: Fatigue On: :58 Request Planned Encounters Medical; 6 Month FU - On: 17-Mar-2019 13:00 [facility] Jessica Tanner DO, DO, Kathleen Planned Procedures ELECTROCARDIOGRAM, COMPLETE (ECG) On: 15-Sep-2018 Intent ([id number])By: Jessica Tanner DO Comments: nsr no acute chg Jessica Tanner DO Spirometry ([id number])By: Ciro JACQUES, On: 15-Sep-2018 Intent Jessica Preston DO ORTHOSTATIC BLOOD PRESSURE On: 24-May-2018 Intent ASSESSMENT ([id number])By: Ana M Christine LPN PNEUM VAC ADLT/IMUMNOSPR, SBC/INTRM On: 28-Apr-2018 Intent ([id number])By: Jessica Tanner DO Comments: pneumovax prefilled syringe injectionlot: [id number]: 12/2018R DELT IMpt tolerated wellAD Jessica Whiting DO [id number] On: 28-Apr-2018 Intent FOR OBESITY, 15 MINUTES ([id number])By: Jessica Tanner DO, DO, Kathleen DEXA SCAN AXIAL SKELETON ([id number])By: On: 28-Apr-2018 Intent Jessica Tanner DO, DO, Kathleen Flu Vaccine (Quadrivalent) 11969Xp: On: 02-Aug-2017 Intent Jessica Tannre DO, DO, Comments: InfluenzaLot #[id number]-04/25/18Site-L dltd, IMDose prefilled syringeVIS and ABN signedgiven by:INÉS lu [id number] On: 08-Apr-2017 Intent FOR OBESITY, 15 MINUTES ([id number])By: Jessica Tanner DO, DO, Kathleen ELECTROCARDIOGRAM, COMPLETE (ECG) On: 11-Mar-2017 Intent ([id number])By: Jessica Tanner DO Comments: nsr no acute chg Jessica Tanner DO Aerosol Treatment ([id number])By: On: 22-Feb-2017 Intent Tamia Wood Comments: Lungs clear after aersol treatment. Radiology - ChestBy: Tamia Wood On: 22-Feb-2017 Intent Aerosol Treatment ([id number])By: On: 31-Dec-2016 Intent Tamia Wood Comments: Albuterol 0.083%relistened -more a/e Aerosol Treatment ([id number])By: Toy On: 28-Oct-2016 Intent DIETARY SUPERVISOR, Soniya Aerosol Treatment ([id number])By: Ciro On: 15-Oct-2016 Jessica Combs DO, DO, Kathleen Comments: more a/e no wheeze less chest tightness CT - Abdomen & Pelvis (IV Contrast On: 15-Sep-2016 Intent Needed)By: Doug Barrett MD Comments: to be done 11/2016 Flu Vaccine (Quadrivalent) 00801Hm: On: 02-Sep-2016 Intent Doug Barrett MD Comments: FLUlot: [id number]:05/07/17site:Lt deltoidroute:IMdose:.5mlBEBA PHAM Radiology - Chest- PA and LatBy: On: 05-May-2016 Intent Clemencia [address] DO CT - Abdomen (IV Contrast Needed)By: On: 05-May-2016 Intent Clemencia Ferreira DO Comments: elevated alpha feto protein Radiology - Shoulder - LeftBy: Fast On: 03-Jan-2016 Clemencia Combs DO Flu Vaccine (Quadrivalent) 28529Qf: On: 09-Aug-2015 Intent Clemencia Ferreira DO Comments: Lot #:[id number] date: 04/2016Amount given:prefilled syringeSite given:L Dltd, IMGiven by: RAJ Taylor and ABN signed ADMINISTRATION OF INFLUENZA VIRUS On: 09-Aug-2015 Intent VACCINE (G0008)By: Clemencia Ferreira DO Aerosol Treatment ([id number])By: Jhon On: 05-Jun-2015 Clemencia Combs DO Solu- Medrol Injection, 125mg On: 05-Jun-2015 Intent ([id number])By: Clemencia Ferreira DO Comments: lot:[id number]:route:IMdose:125MGsite: R glutGiven by: VAMSI Watt MRI LIVER W CONTRAST ([id number])By: Jhon On: 26-Apr-2015 Clemencia Combs DO DEXA SCAN AXIAL SKELETON ([id number])By: On: 05-Apr-2015 Intent Clemencia Ferreira DO Ultrasound - LiverBy: Clemencia Ferreira DO On: 05-Apr-2015 Intent A EKG ([id number])By: Clemencia Ferreira DO On: 05-Apr-[address] - AbdomenBy: Clemencia Ferreira DO On: 07-Dec-2014 Intent Comments: attn liver - elevated alpha feto protein Aerosol Treatment ([id number])By: Toy On: 05-Nov-2014 Intent Nell KLINE Prevnar 13 ([id number])By: Visit, Nurse On: 30-Aug-2014 Intent Comments: L51400.16prefilledR arm, IMas ADMINISTRATION OF INFLUENZA VIRUS On: 17-Aug-2014 Intent VACCINE (G0008)By: Clemencia Ferreira DO FLU VAC, SPLIT, >3 YEARS, INTRAMUSC On: 17-Aug-2014 Intent ([id number])By: Clemencia Ferreira DO Comments: lot: [id number]: 05-07-15site/route: L del/IMamt: 0.5mLVIS signed when applicableChelsea, FIELD SOFTWARE ENGINEER Solu -Medrol Injection, 125 mg On: 13-Aug-2014 Intent ([id number])By: Toy KLINEeNll Aerosol Treatment ([id number])By: Toy On: 13-Aug-2014 Intent Nell KLINE Ultrasound - LiverBy: Clemencia Ferreira DO On: 25-May-2014 Intent A Aerosol Treatment ([id number])By: Toy On: 26-Mar-2014 Intent Nell KLINE Aerosol Treatment ([id number])By: Toy On: 26-Mar-2014 Intent Nell KLINE EKG ([id number])By: Clemencia Ferreira DO On: 16-Feb-2014 Intent Comments: ekg showed normal sinus rhythym, normal axis, no acute st/t wave changes Eprescribed prescriptions (G8553)By: On: 16-Feb-2014 Intent Clemencia Ferreira DO Eprescribed prescriptions (G8553)By: On: 21-Nov-2013 Intent Kristy Hinton Eprescribed prescriptions (G8553)By: On: 19-Jul-2013 Intent Brooke Conklin FLU VAC, SPLIT, >3 YEARS, INTRAMUSC On: 19-Jul-2013 Intent ([id number])By: Brooke Conklin Comments: Lot #:[id number] date:mount given:0.5mlRoute: IMSite given: L dltdVIS and ABN signedGiven by: BEBA Higgins ADMINISTRATION OF INFLUENZA VIRUS On: 19-Jul-2013 Intent VACCINE (G0008)By: Brooke Conklin CT - ChestBy: Jhon JACQUES Clemencia A On: 01-Mar-2013 Intent PFT - CompleteBy: Otto Ferreira DOa A On: 01-Mar-2013 Intent Eprescribed prescriptions (G8553)By: On: 01-Mar-2013 Intent Brooke Conklin Toradol Injection, 30 mg (J1885)By: On: 04-Jan-2013 Intent Jessica Tanner DO Ciro , Comments: Lot:[id number]:07/2014Dose:30mLRoute:IMSite:r hipGiven By:HUYEN signed Jessica Eprescribed prescriptions (G8553)By: On: 20-Dec-2012 Intent Clemencia Ferreira DO DXA, BONE DENSITY, AXIAL SKELETON On: 29-Nov-2012 Intent ([id number])By: Clemencia Ferreira DO Eprescribed prescriptions (G8553)By: On: 29-Nov-2012 Intent Brooke Conklin Solu -Medrol Injection, 125 mg On: 23-Nov-2012 Intent (J2930)By: Essie Fletcher LPN Comments: Lot #[id number]-3/15Site-left hipDose- 125 mggiven by: Nito Fletcher LPN Eprescribed prescriptions (G8553)By: On: 23-Nov-2012 Intent Brooke Conklin Solu -Medrol Injection, 125 mg On: 21-Nov-2012 Intent (J2930)By: Clemencia Ferreira DO Comments: Lot: [id number]: mt: 125mgRoute: IMSite: R Gluteal without difficulty or c/o voiced. Given by: INÉS Benjamin Pulse Oximetry ([id number])By: Rubin On: 21-Nov-2012 Intent Brooke Comments: 93%- recheck 95 Eprescribed prescriptions (G8553)By: On: 21-Nov-2012 Intent Brooke Conklin Solu -Medrol Injection, 125 mg On: 18-Nov-2012 Intent (J2930)By: Tamia Roblero LPN Comments: pushed By Dr. Ciro aragon pt IV lot [id number] exp 04/22 Rocephon Injection, 2 Gm (J0696)By: On: 18-Nov-2012 Intent Tamia Roblero LPN Comments: IV initiated in: R ACwith 22 gaugenumber of attempts: x2 attempts, infiltrated in R FA on first attempt.Tolerated well: without c/o voiced.Rocephin Lot#[id number], exp03/21-2 gms in NS 100cc's infused without difficulty or c/o voiced. Solu- Medrol Injection, 125mg On: 17-Nov-2012 Intent (J2930)By: Jessica Tanner DO Comments: Lot #[id number]-9/15Site-right hipDose- 125 mggiven by: INÉS Fuller DO, Kathleen Eprescribed prescriptions (G8553)By: On: 17-Nov-2012 Jessica Hope DO, DO, Kathleen Rocephon Injection, 2 Gm (J0696)By: On: 17-Nov-2012 Intent Tamia Roblero LPN THER/PROPH/DIAG IV INF, INIT On: 16-Nov-2012 Intent ([id number])By: Clemencia Ferreira DO Comments: lot # [id number]- 03/21site-Rantecubital fossaroute-IVdose- 2GCHenderson INÉS Solu -Medrol Injection, 125 mg On: 16-Nov-2012 Intent (J2930)By: Clemencia Ferreira DO Comments: Lot:[id number]:Dose:125mgRoute:IMSite:l hipGiven By:HUYEN signed INFUSION, NORMAL SALINE SOLUTION , On: 16-Nov-2012 Intent 250 CC (J7050)By: Clemencia Ferreira DO Rocephin Injection, 2 Gram On: 16-Nov-2012 Intent (J0696)By: Clemencia Ferreira DO Pulse Oximetry ([id number])By: Rubin, On: 16-Nov-2012 Intent Brooke Comments: 95% Eprescribed prescriptions (G8553)By: On: 16-Nov-2012 Intent Brooke Conklin Aerosol Treatment ([id number])By: Toy On: 09-Nov-2012 Intent Nell KLINE FLU VAC, SPLIT, >3 YEARS, INTRAMUSC On: 28-Sep-2012 Intent ([id number])By: Nell Yeager CNP Comments: Lot:[id number]:6.30.13Dose:0.5mLRoute:IMSite:L DltdGiven By:Willie signed ADMINISTRATION OF INFLUENZA VIRUS On: 28-Sep-2012 Intent VACCINE (G0008)By: Nell Yeager CNP SPECIMEN HANDLING/TRANSPORT On: 28-Sep-2012 Intent ([id number])By: Elissa Wallace LPN SPECIMEN HANDLING/TRANSPORT On: 07-Sep-2012 Intent ([id number])By: Elissa Wallace LPN Radiology - Chest- PA and LatBy: On: 08-Jun-2012 Intent Fast DO, Clemencia A ZOSTER VACC, [place] ([id number])By: Rubin, On: 28-Apr-2012 Intent Brooke Comments: pt received at [facility] 04/2012 Eprescribed prescriptions (G8553)By: On: 20-Apr-2012 Intent Fast DO, Clemencia A EKG (41904)By: Brooke Conklin On: 20-Apr-2012 Intent Comments: ekg showed normal sinus rhythym, normal axis, no acute st/t wave changes Spirometry (53836)By: Rubin On: 20-Apr-2012 Intent Brooke Comments: good effort and curve normal Eprescribed prescriptions (G8553)By: On: 16-Mar-2012 Intent Fast DO, Clemencia A Eprescribed prescriptions (G8553)By: On: 16-Mar-2012 Intent Fast DO, Clemencia A Eprescribed prescriptions (G8553)By: On: 29-Jan-2012 Intent Fast DO, Clemencia A Eprescribed prescriptions (G8553)By: On: 27-Nov-2011 Intent Ciro DO, Jessica Ciro DO, Jessica PNEUM VAC ADLT/IMUMNOSPR, SBC/INTRM On: 19-Aug-2011 Intent ([id number])By: Brooke Conklin Comments: Lot #:[id number] date:mount given:0.5mlRoute: IMSite given:left deltGiven by: BEBA Higgins ADMINISTRATION OF PNEUMOCOCCAL On: 19-Aug-2011 Intent VACCINE (G0009)By: Brooke Conklin ADMINISTRATION OF INFLUENZA VIRUS On: 04-Aug-2011 Intent VACCINE (G0008)By: Brooke Conklin FLU VAC, SPLIT, >3 YEARS, INTRAMUSC On: 04-Aug-2011 Intent ([id number])By: Brooke Conklin Radiology - Chest- PA and LatBy: On: 30-Jan-2011 Intent Clemencia Ferreira DO A Aerosol Treatment ([id number])By: Toy On: 10-Nov-2010 Intent Nell KLINE Pulse Oximetry ([id number])By: Toy KLINE, On: 10-Nov-2010 Intent Nell Cerna TDAP VACCINE >7 IM (14534)By: Ron On: 21-Oct-2010 Intent Carla CONTE Comments: Lot #[id number]/13Site-L arm, IMDose prefilled syringegiven by:LISA Radiology - Chest- PA and LatBy: On: 07-Oct-2010 Intent Clemencia Ferreira DO Spirometry ([id number])By: Rubin, On: 07-Oct-2010 Intent Brooke Comments: good effort and curve normal DXA, BONE DENSITY, AXIAL SKELETON On: 07-Oct-2010 Intent (14832)By: Clemencia Ferreira DO Comments: vikas IMMUNIZ ADMNIN, 1 VAC, SNGL/COMBO On: 07-Oct-2010 Intent ([id number])By: Brooke Conklin Comments: Lot #[id number]/11Site-L armDose0.5mlgiven by:LISA FLU VAC, SPLIT, >3 YEARS, INTRAMUSC On: 07-Oct-2010 Intent ([id number])By: Brooke Conklin Solu -Medrol Injection, 125 mg On: 06-Aug-2010 Intent (J2930)By: Nell Yeager CNP Pulse Oximetry ([id number])By: Toy KLINE, On: 06-Aug-2010 Intent Soniya Aerosol Treatment (85258)By: Toy On: 06-Aug-2010 Intent RAISANell EKG ([id number])By: Clemencia Ferreira DO On: 07-Jul-2010 Intent Comments: ekg showed normal sinus rhythym, normal axis, no acute st/t wave changes EKG (58373)By: Brooke Conklin On: 03-Apr-2010 Intent Comments: ekg showed normal sinus rhythym, normal axis, no acute st/t wave changes FLU VAC, SPLIT, >3 YEARS, INTRAMUSC On: 05-Aug-2009 Intent (58021)By: Brooke Conklin Comments: Lot #:[id number] date:mount given:0.5mlRoute: IMSite given:left deltGiven by: BEBA HigginsIZ ADMNIN, 1 VAC, SNGL/COMBO On: 05-Aug-2009 Intent (70298)By: Brooke Conklin Solu -Medrol Injection, 125 mg On: 04-Jul-2009 Intent (J2930)By: Toy KLINE Soniya Comments: Lot #: [id number] date: 02/17Amount given: 125 mg/2 mlRoute: IMSite given: Right hipGiven by: Fernie Singleton LPN Spirometry (21330)By: Rubin On: 07-May-2009 Intent Brooke Comments: good effort and curve normal Ultrasound - PelvisBy: Jhon JACQUES, On: 04-Feb-2009 Intent Clemencia Enciso Radiology - ChestBy: Clemencia Ferreira DO On: 04-Feb-2009 Intent A Comments: pa and lat Pulse Oximetry ([id number])By: Toy KLINE, On: 30-Jan-2009 Intent Soniya Aerosol Treatment ([id number])By: Toy On: 30-Jan-2009 Intent RAISA Soniya EKG (67875)By: Brooke Conklin On: 18-Dec-2008 Intent Comments: ekg showed normal sinus rhythym, normal axis, no acute st/t wave changes DXA, BONE DENSITY, AXIAL SKELETON On: 07-Sep-2008 Intent (53404)By: Clemencia Ferreira DO FLU VAC, SPLIT, >3 YEARS, INTRAMUSC On: 07-Sep-2008 Intent (24770)By: Brooke Conklin Comments: Lot #:[id number] date:04/16Amount given:0.5mlRoute: IMSite given:left delGiven by: BEBA Higgins IMMUNIZ ADMNIN, 1 VAC, SNGL/COMBO On: 07-Sep-2008 Intent ([id number])By: Brooke Conklin Radiology - Knee - Left - Weight On: 30-Jul-2008 Intent BearingBy: Jhon DO Clemencia A Comments: with sunrise view Spirometry (75111)By: Rubin, On: 06-Mar-2008 Intent Brooke Comments: good effort and curve normal Pulse Oximetry ([id number])By: Rubin On: 06-Mar-2008 Intent Brooke Comments: 98% Aerosol Treatment ([id number])By: Ciro On: 13-Feb-2008 Jessica Cmobs DO, DO, Kathleen Solu- Medrol Injection, 125mg On: 13-Feb-2008 Intent ([id number])By: Jessica Tanner DO Comments: Lot #: [id number] date: mount given: 125 mg/2 mlRoute: IMSite given: Right hipGiven by: INÉS Sabillon DO, Kathleen Pulse Oximetry ([id number])By: Khai On: 13-Feb-2008 Intent KRISHNA EKG ([id number])By: Brooke Conklin On: 29-Nov-2007 Intent Comments: ekg showed normal sinus rhythym, normal axis, no acute st/t wave changes IMMUNIZ ADMNIN, 1 VAC, SNGL/COMBO On: 02-Sep-2007 Intent ([id number])By: Kenia Fernandez FLU VAC, SPLIT, >3 YEARS, INTRAMUSC On: 02-Sep-2007 Intent ([id number])By: Kenia Fernandez Radiology - Chest- PA and LatBy: On: 09-Aug-2007 Intent Jhon DO, Clemencia A Spirometry (38293)By: Jhon JACQUES, On: 09-Aug-2007 Intent Clemencia A Comments: good effort and curve with mild airway obstruction Pneumovax (67449)By: Clemencia Ferreira DO On: 09-Aug-2007 Intent A Comments: given im in left deltoid lot #[id number] exp.09/02/08-aw EKG (57013)By: Clemencia Ferreira DO On: 20-Oct-2006 Intent Comments: ekg showed normal sinus rhythym, normal axis, no acute st/t wave changes PNEUM VAC ADLT/IMUMNOSPR, SBC/INTRM On: 27-Sep-2006 Intent ([id number])By: KRISHNA Ridley IMMUNIZ ADMNIN, 1 VAC, SNGL/COMBO On: 27-Sep-2006 Intent ([id number])By: KRISHNA Ridley FLU VAC, SPLIT, >3 YEARS, INTRAMUSC On: 23-Sep-2006 Intent (55875)By: Kenia Jauregui IMMUNIZ ADMNIN, 1 VAC, SNGL/COMBO On: 23-Sep-2006 Intent (75914)By: Kenia Jauregui Spirometry ([id number])By: Jhon JACQUES, On: 22-Sep-2006 Intent Clemencia Enciso Comments: was normal with normal curve and effort -but pt with a definitive bronchospastic cough Overnight Pulse OX ([id number])By: Jhno On: 22-Sep-2006 Intent Clemencia JACQUES Planned Medications INFUSION, NORMAL SALINE SOLUTION , 250 CC Ordered: 16-Nov-2012 Pending Clemencia Ferreira DO INJECTION, CEFTRIAXONE SODIUM, PER 250 MG Ordered: 16-Nov-2012 Pending Jhon JACQUES Clemencia A INJECTION, CEFTRIAXONE SODIUM, PER 250 MG Ordered: 17-Nov-2012 Pending Tamia Roblero LPN INJECTION, CEFTRIAXONE SODIUM, PER 250 MG Ordered: 18-Nov-2012 Pending Tamia Roblero LPN INJECTION, KETOROLAC TROMETHAMINE, PER 15 MG Ordered: 04-Jan-2013 Pending Ciro , Jessica Ciro DO, Jessica INJECTION, METHYLPREDNISOLONE SODIUM SUCCINATE, UP TO 125 MG Ordered: 16-Nov-2012 Pending Jhon JACQUES Clemencia A INJECTION, METHYLPREDNISOLONE SODIUM SUCCINATE, UP TO 125 MG Ordered: 17-Nov-2012 Pending Ciro DO, Jessica Ciro DO, Jessica INJECTION, METHYLPREDNISOLONE SODIUM SUCCINATE, UP TO 125 MG Ordered: 18-Nov-2012 Pending Tamia Roblero TURNING MACHINE SET UP OPERATOR INJECTION, METHYLPREDNISOLONE SODIUM SUCCINATE, UP TO 125 MG Ordered: 21-Nov-2012 Pending Fast DO, Clemencia A INJECTION, METHYLPREDNISOLONE SODIUM SUCCINATE, UP TO 125 MG Ordered: 23-Nov-2012 Pending Chance CONTE Essie INJECTION, METHYLPREDNISOLONE SODIUM SUCCINATE, UP TO 125 MG Ordered: 13-Aug-2014 Pending Toy KLINENell INJECTION, METHYLPREDNISOLONE SODIUM SUCCINATE, UP TO 125 MG Ordered: 05-Jun-2015 Pending Fast DO, Clemencia A Instructions Name Dates Details BMI 30.0-30.9,adult : How to access health [...] in the urine) Encounters Office Visit On: 15-Sep-2018 10:43 Encounter Reason: Follow up for chronic medical issues - The patient feels well with minor complaints (cough -- get coughing spellsHad a sinus flare up and went to [place] -- been home and fine other than [...] patient does not have durable power of senior technical specialist or living will. The patient has noticed nothing from the geriatic depression scale. Other providers contributing to the patient's care are environmental marketing representative, gastrologist, inner diameter grinder tool and surgeon.Encounter Diagnosis: Nonsmoker, BMI 30.0-30.9,adult, Annual [...] patient does not have durable power of senior technical specialist or living will. The patient has noticed nothi ng from the geriatic depression scale. Other providers contributing to the patient's care are environmental marketing representative, gastrologist and inner diameter grinder tool.Encounter Diagnosis: BMI 30.0-30.9,adult, Nonsmoker, Gastric reflux syndrome, [...] that radiates to her thumb- affects her tobacco baler), has good energy level and is sleeping [...] and exposure to pollens (recent trip to [place]). The symptoms have been associated with hoarseness [...] one. - had saline implants - Celia alrkin was the doc in [place]-- no trauma- noticed this inlast 3-4 months [...] is helping shoulder and she saw Dr wen and he has her wearing support stocking [...] for Shoulder Problem: getting worse started in fe- she remembers falling- and extended arm backwards- [...] discharge. Note for Rash: Pt was outside [facility] bed.- she was exposed to poison alina [...] her of recent URI's that occured from [employer] polen and believes End: 03-Apr-2010 15:49 its [...] weight :. Note for Follow up for intern brand justina medical issues: the mood is stable [...] poorly. Patient has been compliant with instructions. [facility] End: 31-Jan-2007 15:37 t medication use: no [...] help daughter just recently moved away to [place] ) ,excessive sleeping ,headache (at times ) [...]
--- OUTSIDE RECORDS SUMMARY | 2019-01-30 01:54 | XMS RPT_ITS | Continuity of Care Document ---
:1945 Author Organization [facility] Address [facility] [facility] [address] [place] [address] Phone Care Team Providers Name Role Phone Ciro DO, Jessica Unavailable Migue Josemanuel JACQUES Gretta Unavailable Ken Larkin Unavailable Dr. Zander López Unavailable Jhon Clemencia Unavailable Alex Clement Unavailable Long Carla CONTE Unavailable Unavailable INÉS Roblero Unavailable Unavailable Kristy Hinton Unavailable Unavailable Rosemarie Osorio Unavailable Unavailable Carbide Operator, System Unavailable Unavailable Unavailable Unavailable Problems Name Dates Details Abnormal glucose tolerance test (R73.02, 790.22) Comments: diet andex Status: Active Abnormal liver ultrasound (R93.2, 793.3) Status: Active Acute bronchitis due to other specified organisms (J20.8, 466.0) Status: Active Acute embolism and thrombosis of unspecified deep veins of unspecified lower extremity (I82.409, 453.40) Comments: DVT and PE7151?? 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 Annual Medicare Phyiscal WITHOUT abnormal findings (Renamed from Encounter for general adult medical examination without abnormal findings) (Z00.00, V70.9) Status: Active Asthma (J45.909, 493.90) Comments: managed by [facility] Status: Active Asthma with acute exacerbation (J45.901, [...] but resumes when she goes back to [facility] -- will need to chg her maintenance [...] present regimenleft fibula fracture from fall in [place] 22 2011Lateroal malleolus fracture Status: Active [...] Name Dates Details CALCIUM 600 + D, 817-939HX-SHSJ (Oral Tablet) 1 BID for 0 days [...] days Quantity: 180 {Capsule} Refills: 3 Ordered:08-Apr-2017 Jsaon Tanner DO, DO, Kathleen Start : 08-Apr-2017 [...] Quantity: 14 {Tablet} Refills: 0 Ordered:24-Jun-2011 Toy KLINE Soniya Start : 24-Jun-2011 End : 01-Jul-2011 [...] Discontinued Comments:This order discontinued per [employer]. NYSTATIN, 647126YKSK/ML (Mouth/Throat Suspension) 5cc Suspension qid for 10 [...] Report Result: Comments: See Note; NOTES: [facility] Orthopaedics AND Sports Medicine [address] [place] [address] OFFICE VISIT Date of Service: 07/12/18 MR#: [id number] Acct: [id number] Name: SUE HAWTHORNE Rep #: [id number] : 1945 Provider: Ginny Currie DO Age/Sex: 72/F [place] [facility] [place] Signed Intake Intake Visit Reasons: right [...] Follow up with Dr Corona or tj asini if pain, swelling, numbness or associated symptoms, or concerns develop. All questions answered. Patient in agreement of plan. Plan Detail Other Orders Orders: Coding Level of Care Code Off vis,est, level 3 Diagnoses Right foot pain M79.671 07/21/18 9674 <Electronically signed by Ginny Currie DO> Date Ginny Ro igner Signature: Date (if applicable) CC: 12-Jul-2018 Foot min 3 Views Result: Comments: See Note; NOTES: [facility] Imaging Services [address] [place] [address] Foot min 3 Views MR#: [id number] Acct: [id number] Name: SUE HAWTHORNE Rep #: [id number] : 1945 F 72 From: Mario Salguero MD PCP: Jessica Tanner DO Status: REG CLI Study: Foot min 3 Views Date of Exam: 07/12/18 Exam# [id number] Ordering Dr: Gniny Currie DO STUDY: X-RAY - RIGHT F [...] CC: Ginny Currie DO; Jessica Tanner DO Linen Sorter: Signed 05-Jul-2018 PT D/C Summary (1) Result: Comments: See Note; NOTES: [facility] Physical Therapy Health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 Thank you for the referral of this patient. Sincerely, Violetta Lazcano <Electronically signed by Violetta Lazcano PT, Cert. MDT> 07/05/18 1348 CC: Jessica Ciro DO; Josemanuel Abreu DO HUSSEIN Signed 20-Jun-2018 Orthopedic Visit Report Result: Comments: See Note; NOTES: [facility] [address] [place] [address] OFFICE VISIT Date of Service: 06/07/18 MR#: [id number] Acct: [id number] Name: SUE HAWTHORNE Rep #: [id number] : 1945 Provider: KRISTIN Amezquita Age/Sex: 72/F [...] total replacement of left shoulder Z96.612 06/20/18 4139 <Electronically signed by Ken FOSTER> Date Ken FOSTER Cosigner Signature: Date (if applicable) CC: 06-Jun-2018 Re-Evaluation - PT (1) Result: Comments: See Note; NOTES: [facility] [address] [place] [address]. [address] [place], [place] [address] Fax REEVALUATION / MEDICARE RECERTI FICATION PHYSICAL THERAPY MR#: [id number] Acct: [id number] Name: SUE HAWTHORNE Rep #: [id number] : 1945 72 From: Violetta Lazcano PT, [...] do not hesitate to contact me at [phone] by phone or if you have questions or concerns regarding this new plan of care! Sincerely, Violetta Lazcano <Electronically signed by Violetta Lazcano PT, Cert. MDT> 06/06/18 1222 CC: Jessica Tanner DO; Josemanuel Abreu DO HUSSEIN Signed For Medicare only, by signing this I certify the plan of care. Physicians Signature Date 13-May-2018 Re-Evaluation - PT (1) Result: Comments: See Note; NOTES: [facility] [address] [place] [address] Fax REEVALUATION / MEDICARE RECERTI [facility] PHYSICAL THERAPY MR#: [id number] Acct: [id number] Name: SUE HAWTHORNE Rep #: [id number] : 1945 72 From: Violetta Lazcano PT, [...] do not hesitate to contact me at [phone] by phone or Fax: if you have questions or concerns regarding this new plan of care! Sincerely, Violetta Lazcano <Electronically signed by Violetta Lazcano PT, Cert. MDT> 05/13/18 1228 CC: Jessica Tanner DOCristin Abreu DO HUSSEIN Signed For Medicare only, by signing this I certify the plan of care. Physicians Signature Date 12-May-2018 Dexa Bone Density Study Result: Comments: See Note; NOTES: [facility] Imaging Services [address] [place] [address] Dexa Bone Density Study MR#: [id number] Acct: [id number] Name: SUE HAWTHORNE Rep #: [id number] : 1945 F 72 From: Yousif Hathaway MD PCP: Jessica Tanner DO Status: REG CLI Study: Dexa Bone Density Study Date of Exam: 05/12/18 Exam# [id number] Ordering Dr: Jessica Tanner DO ILA DY: [...] Yousif Hathaway MD at 15:14 EDT Tel [phone], Service support , CC: Jessica Tanner DO Linen Sorter: Signed 05-May-2018 Orthopedic Visit Report Result: Comments: See Note; NOTES: [facility] Orthopaedics AND Sports Medicine [address] [place] [address] OFFICE VISIT Date of Service: 04/25/18 MR#: [id number] Acct: [id number] Name: SUE HAWTHORNE Rep #: [id number] : 1945 Provider: Josemanuel Abreu DO Age/Sex: 72/F [place] [facility] [place] [place] Status: Signed Intake Intake Visit Reasons: LEFT [...] 2 Views Result: Comments: See Note; NOTES: [facility] Imaging Services [address] [place] [address] Shoulder min 2 Views MR#: [id number] Acct: [id number] Name: SUE HAWTHORNE Rep #: [id number] : 1945 F 72 From: Mario Salguero MD PCP: Jessica Tanner DO Status: REG CLI Study: Shoulder min 2 Views Date of Exam: 04/25/18 Exam# [id number] Ordering Dr: Josemanuel Abreu DO STUDY: X-RAY [...] CC: Jessica Tanner DO; Josemanuel Abreu DO Linen Sorter: Signed 06-Apr-2018 Orthopedic Visit Report Result: Comments: See Note; NOTES: [facility] Orthopaedics AND Sports Medicine [address] [place], [place] [address] OFFICE VISIT Date of Service: 03/28/18 MR#: [id number] Acct: [id number] Name: SUE HAWTHORNE Rep #: [id number] : 1945 Provider: Josemanuel Abreu DO Age/Sex: [...] - PT Result: Comments: See Note; NOTES: [facility] [address] [place] [address]. [address] [place] [address] Fax REHABILITATION SERVICES INITIAL EVALUATION MR#: [id number] Acct: [id number] Name: SUE HAWTHORNE Rep #: [id number] : 1945 72 From: Violetta Lazcano PT, Cert. MDT Referring Dr.: Josemanuel Abreu DO Status: REG RCR Insurance: MEDICA RE PART A B [facility] Patient's Visit Information SUE HAWTHORNE is a [...] OR CROSS BODY MOVEMENT - SEE THE [facility] REVERSE TOTAL SHOULDER ARTHROPLASTY PROTOCOL [...] be FAXED BACK to u s at [phone] for Medicare purposes. Please let me know [...] 2 Views Result: Comments: See Note; NOTES: [facility] Imaging Services [address] [place] [address] Foot 2 Views MR#: [id number] Acct: [id number] Name: SUE HAWTHORNE Rep #: [id number] : F 72 From: Brett Hedrick DO PCP: Jessica Tanner DO Status: REG CLI Study: Foot 2 Views Date of Exam: 03/28/18 Exam# [id number] Ordering Dr: Josemanuel Abreu DO STUDY: X-RAY [...] Brett Hedrick DO at 17:03 EDT Tel [phone], Service support , CC: Jessica Tanner DO; Josemanuel Abreu DO Linen Sorter: Signed 28-Mar-2018 Shoulder min 2 Views Result: Comments: See Note; NOTES: [facility] Imaging Services [address] [place] [address] [place] [address] Shoulder min 2 Views MR#: [id number] Acct: [id number] Name: SUE HAWTHORNE Rep #: [id number] : 1945 F 72 From: Brett Hedrick DO PCP: Jessica Tanner DO Status: REG CLI Study: Shoulder min 2 Views Date of Exam: 03/28/18 Exam# [id number] Ordering Dr: Josemanuel Abreu DO STUDY: X-RAY [...] Brett Hedrick DO at 17:02 EDT Tel [phone], Service support , CC: Jessica Tanner DO; Josemanuel Abreu DO Linen Sorter: Signed 23-Mar-2018 Orthopedic Visit Report Result: Comments: See Note; NOTES: [facility] Orthopaedics AND Sports Medicine [address] [place] [address] OFFICE VISIT Date of Service: 03/11/18 MR#: [id number] Acct: [id number] Name: HERMILA HAWTHORNEKARTHIK Ohara Rep #: [id number] : 1945 Provider: Josemanuel Abreu DO Age/Sex: 72/F [place] [facility] [place] [place] Status: Signed Intake Intake Visit Reasons: LEFT [...] humerus with rout ine healing, subsequent encounter S42.729D Plan Assessment: Left closed 4 part proximal [...] Lead Electrocardiogram Result: Comments: See Note; NOTES: [facility] Cardiovascular Services [address] [place] [address] 12 Lead EKG 03/04/18 1116 MR#: [id number] Acct: [id number] Name: SUE HAWTHORNE Rep #: [id number] : 1945 72 From: Trey Bob MD Attending Dr: Ginny Currie DO [place] [facility]: Ginny Currie DO Date: 03/04/18 [place] [facility] [place] Sex: F C Admitted: Test Reason : [...] Abnormal ECG Confirmed by TREY BOB ([id number]), city editor ERA DIAS ([id number]) on 03/08/2018 4:08:06 PM Referred By: Ginny Currie Confirmed By:TREY BOB 03/08/18 1608 Date Trey Bob MD CC: Ginny Currie DO; Jessica Tanner DO Signed 02-Mar-2018 Coronals Sag Multi Obl 3-D Rec Result: Comments: See Note; NOTES: [facility] Imaging Services [address] [place] [address] Coronals Sag Multi Obl 3-D Rec MR#: [id number] Acct: [id number] Name: SUE HAWTHORNE Rep #: [id number] : 1945 F 72 From: Kapil Gonzales MD PCP: Jessica Tanner DO Status: REG CLI Study: Coronals Sag Multi Obl 3-D Rec Date of Exam: 03/02/18 Exam# [id number] Ordering Dr: Nicole Currie DO ADDENDUM by Kapil Gonzales MD on 03/02/[address]/Coronals Sag Multi Obl 3-D Rec IMPRESSION: Impacted, comminuted, mildly displaced, intra-articular fracture of the proxim al humerus involving the neck and tuberosities Nondisplaced fracture at the coracoid process Electronically Signed: Kapil Gonzales MD at 21:56 EDT Tel , Service support [phone], 03/02/18 7223 Date cc: Ginny Currie DO; Jessica Tanner DO * Signed ADDENDUM by Kapil Gonzales MD on 03/02/18 at 2153 ADDENDUM There is nondisplaced fracture at the coracoid (image 17/132 axial). The remainder of the scapula is intact. 03/02/18 215 6 Date cc: Ginny Currie DO; Jessica Tanner DO * Signed STUDY: CT LEFT UPPER EXTREMITY / HUMERUS REASON FOR EXAM: Female, 72 years old. Fracture RADIATION DOSAGE (If Supplied By [facility]): CTDIvol = ( 28.83 ) mGy, [...] CC: Ginny Currie DO; Jessica Tanner DO Linen Sorter: Signed 02-Mar-2018 Coronals Sag Multi Obl 3-D Rec Result: Comments: See Note; NOTES: [facility] Imaging Services [address] [place] [address] Coronals Sag Multi Obl 3-D Rec MR#: [id number] Acct: [id number] Name: SUE HAWTHORNE Rep #: [id number] : 1945 F 72 From: Kapil Gonzales MD PCP: Jessica Tanner DO Status: REG CLI Study: Coronals Sag Multi Obl 3-D Rec Date of Exam: 03/02/18 Exam# [id number] Ordering Dr: Nicole Currie DO STUDY: CT [...] Service support , CC: Ginny Tanner DO Linen Sorter: Signed 02-Mar-2018 Extremity Upper without Contra Result: Comments: See Note; NOTES: [facility] Imaging Services [address] [place] [place] [address] Extremity Upper without Contra MR#: [id number] Acct: [id number] Name: SUE HAWTHORNE Rep #: [id number] : 1945 F 72 From: Kapil Gonzales MD PCP: Jessica Tanner DO Status: REG CLI Study: Extremity Upper without Contra Date of Exam: 03/02/18 Exam# [id number] Ordering Dr: Nicole Currie DO ADDENDUM by Kapil Gonzales MD on 03/02/[address]/Extremity Upper without Contra IMPRESSION: Impacted, comminuted, mildly displaced, intra-articular fracture of the proxim al humerus involving the neck and tuberosities Nondisplaced fracture at the coracoid process Electronically Signed: Kapil Gonzales MD at 21:56 EDT Tel , Service support [phone], 03/02/183 Date cc: Ginny Currie DO; Jessica [...] old. Fracture RADIATION DOSAGE (If Supplied By [facility]): CTDIvol = ( 28.83 ) mGy, DLP [...] CC: Ginny Currie DO; Jessica Tanner DO Linen Sorter: Signed 02-Mar-2018 Extremity Upper without Contra Result: Comments: See Note; NOTES: [facility] Imaging Services [address] [place] [address] Extremity Upper without Contra MR#: [id number] Acct: [id number] Name: SUE HAWTHORNE Rep #: [id number] : 1945 F 72 From: Kapil Gonzales MD PCP: Jessica Tanner DO Status: REG CLI Study: Extremity Upper without Contra Date of Exam: 03/02/18 Exam# [id number] Ordering Dr: Nicole Currie DO STUDY: CT [...] CC: Ginny Currie DO; Jessica Tanner DO Linen Sorter: Signed 01-Mar-2018 Orthopedic Visit Report Result: Comments: See Note; NOTES: [facility] Orthopaedics AND Sports Medicine [address] [place] [address] OFFICE VISIT Date of Service: 02/24/18 MR#: [id number] Acct: [id number] Name: SUE HAWTHORNE Rep #: [id number] : 1945 Provider: Ginny Currie DO Age/Sex: [...] proximal end of left humerus, initial encounter S46.842R Plan X-rays were reviewed. There is displaced [...] 3 Views Result: Comments: See Note; NOTES: [facility] Imaging Services [address] [place] [address] Elbow min 3 Views MR#: [id number] Acct: [id number] Name: SUE HAWTHORNE Rep #: [id number] DO B: 1945 F 72 From: Shanell Branch MD PCP: Jessica Tanner DO Status: REG CLI Study: Elbow min 3 Views Date of Exam: 02/24/18 Exam# [id number] Ordering Dr: Ginny Currie DO STUDY: X-RAY [...] CC: Ginny Currie DO; Jessica Tanner DO Linen Sorter: Signed 24-Feb-2018 Shoulder min 2 Views Result: Comments: See Note; NOTES: [facility] Imaging Services [address] [place] [address] Shoulder min 2 Views MR#: [id number] Acct: [id number] Name: SUE HAWTHORNE Mayda Rep #: [id number] : 1945 F 72 From: Mario Salguero MD PCP: Jessica Tanner DO Status: REG CLI Study: Shoulder min 2 Views Date of Exam: 02/24/18 Exam# [id number] Ordering Dr: Ginny Currie DO STUDY: X-RAY [...] CC: Ginny Currie DO; Jessica Tanner DO Linen Sorter: Signed 20-Feb-2018 Discharge Instruction Result: Comments: See Note; NOTES: [facility] Medical Records Department [address] [place] [address] Discharge Instruction 02/20/18 1358 MR#: [id number] Acct: [id number] Name: ESTRELLITA HAWTHORNE Rep #: [id number] : 1945 72 From: Chelle Zaragoza MD [...] problems, contact your Primary Care Provider. Call [email or web address] [facility] ([phone]) or report to the closest Emergency Room. Call 911 if necessary. 02/20/18 1401 <Electronically signed by Chelle Zaragoza MD&amp ;#62; Date Chelle Zaragoza MD Cosigner Signature (If Indicated): Date CC: Jessica Tanner DO 20-Feb-2018 Emergency Department Summary Result: Comments: See Note; NOTES: [facility] Medical Records Department [address] [place] [address] Emergency Department Summary 02/20/18 1128 MR#: [id number] Acct: [id number] Name: SUE HAWTHORNE Rep #: [id number] : 1945 72 From: Chelle Zaragoza MD [...] mechanical fall This note was generated with [employer] dictation software. It may contain incorrect words, [...] your Primary Care Provider. Call [facility] ([phone]) or report to the closest Emergency Room. Call 911 if necessary. 02/20/18 1351 <Kade lujan signed by Chelle Zaragoza MD> Date Chelle Zaragoza MD Cosigner Signature (If Indicated): Date CC: Jessica Tanner DO 20-Feb-2018 Foot min 3 Views Result: Comments: See Note; NOTES: [facility] Imaging Services [address] [place] [address] Foot min 3 Views MR#: [id number] Acct: [id number] Name: SUE HAWTHORNE Rep #: [id number] : 1945 F 72 From: Rona Bowen MD PCP: Jessica Tanner DO Status: PRE ER Study: Foot min 3 Views Date of Exam: 02/20/18 Exam# [id number] Ordering Dr: Chelle Zaragoza MD STUDY: X-RAY [...] CC: Chelle Zaragoza MD; Jessica Tanner DO Linen Sorter: Signed 20-Feb-2018 Shoulder min 2 Views Result: Comments: See Note; NOTES: [facility] Imaging Services [address] [place] [address] Shoulder min 2 Views MR#: [id number] Acct: [id number] Name: SUE HAWTHORNE Rep #: [id number] : 1945 F 72 From: Rona Bowen MD PCP: Jessica Tanner DO Status: PRE ER Study: Shoulder min 2 Views Date of Exam: 02/20/18 Exam# [id number] Ordering Dr: Chelle Zaragoza MD STUDY: X-RAY [...] CC: Chelle Zaragoza MD; Jessica Tanner DO Linen Sorter: Signed 22-Feb-2017 Chest PA and Lateral Result: Comments: See Note; NOTES: [facility] Imaging Services [address] [place] [address] Verdana 4d Chest PA and Lateral MR#: [id number] Acct: [id number] Name: SUE HAWTHORNE Rep # : [id number] : 1945 F 71 From: Naomi Strauss MD PCP: Jessica Tanner DO Status: REG CLI Study: Chest PA and Lateral Date of Exam: 02/22/17 Exam# [id number] Ordering Dr: Tamia Wood ILA DY: X-RAY [...] , CC: Tamia Wood; Jessica Tanner DO Linen Sorter: Signed 12-Nov-2016 Abdomen/Pelvis WITH Contrast Result: Comments: See Note; NOTES: [facility] Imaging Services [address] [place] [address] Verdana 4d Abdomen/Pelvis WITH Contrast MR#: [id number] Acct: [id number] Name: SUE HAWTHORNE Rep #: [id number] : 1945 F 71 From: Brett Hedrick DO PCP: Doug Barrett Status: REG CLI Study: Abdomen/Pelvis WITH Contrast Date of Exam: 11/12/16 Exam# [id number] Ordering Dr: Doug Barrett ILA DY: CT [...] Brett Hedrick DO at 15:08 EST Tel [phone], Service support [phone], CC: Doug Barrett Linen Sorter: Signed 30-Jun-2016 Wrist min 3 Views Result: Comments: See Note; NOTES: [facility] Imaging Services [address] [place] [address] Verdana 4d Wrist min 3 Views MR#: [id number] Acct: [id number] Name: SUE HAWTHORNE Rep #: [id number] : 1945 F 70 From: Omar Salazar MD PCP: Clemencia Ferreira DO Status: REG CLI Study: Wrist min 3 Views Date of Exam: 06/30/16 Exam# [id number] Ordering Dr: Ginny Currie DO STUDY: X-RA [...] CR at 14:28 EDT , Service support [phone], CC: Ginny Currie DO; Clemencia Ferreira DO Linen Sorter: Signed 29-May-2016 OT D/C Summary Result: Comments: See Note; NOTES: [facility] Occupational Therapy [facility] [address] [place], [place] [address] Fax REHABILITATIO N SERVICES DISCHARGE SUMMARY MR#: [id number] Acct: [id number] Name: SUE HAWTHORNE Rep #: [id number] : 1945 70 From: Richelle Myers Referring [...] and tripod increased from 4# to 8# management development specialist did not change - Goals Patient Goals: [...] please fell free to call me at [phone]. Thank you for the referral of this patient. Sincerely, Richelle Myers <Electronically signed by Richelle Myers > 05/29/16 1224 CC: Clemencia Ferreira DO MK Signed 13-May-2016 OT General Evaluation Result: Comments: See Note; NOTES: [facility] Occupational Therapy [facility] [address] [place], [place] [address] Fax REHABILITATIO N SERVICES INITIAL EVALUATION MR#: [id number] Acct: [id number] Name: SUE HAWTHORNE Rep #: [id number] : 1945 70 From: Richelle Myers Referring [...] Wrist: left 60/65 Right 60/50 - Strength Sales Operations Associate: left 55# right 60# Lateral Pinch: left [...] to be FAXED BA to us at [phone] for Medicare purposes. Please let me know if there are questions or concerns regarding this plan of care. Physician Signature: ____Date: <Electronically signed by Richelle Myers > 05/13/16 0759 CC: Clemencia Ferreira DO MK Signed For Medicare only, by signing this I certify the plan of care. Physicians Signature Date 08-May-2016 Abdomen WITH IV Contrast Result: Comments: See Note; NOTES: [facility] Imaging Services [address] [place] [address] Verdana 4d Abdomen WITH IV Contrast MR#: [id number] Acct: [id number] Name: SUE LEVIN Rep #: [id number] : 1945 F 70 From: Ba Calvillo MD PCP: Clemencia Ferreira DO Status: REG CLI Study: Abdomen WITH IV Contrast Date of Exam: 05/08/16 Exam# [id number] Ordering Dr: Clemencia Craig DO STUDY: CT [...] MD at 16:42 EDT , Service support [phone], CC: Clemencia Ferreira DO Linen Sorter: Signed 05-May-2016 Chest PA and Lateral Result: Comments: See Note; NOTES: [facility] Imaging Services [address] [place] [address] Verdana 4d Chest PA and Lateral MR#: [id number] Acct: [id number] Name: Sussy HAWTHORNE Rep #: [id number] : 1945 F 70 From: Omar Salazar MD PCP: Clemencia Ferreira DO Status: REG CLI Study: Chest PA and Lateral Date of Exam: 05/05/16 Exam# [id number] Ordering Dr: Clemencia Ferreira DO STUDY: X-RAY [...] FACR at 16:55 EDT , Service support [phone], Fax RAD/Chest PA and Lateral IMPRESSION: Normal x-ray examination of the chest. Stable since last examination. Electronically Signed: Omar Salazar MD, FACR 05/05 at 16:55 EDT , Service support [phone], CC: Clemencia Ferreira DO Linen Sorter: Signed 31-May-2015 Abdomen WITH and W/O Contrast Result: Comments: See Note; NOTES: [facility] Imaging Services [address] [place] [address] MRI Report MR#: [id number] Acct: [id number] Name: SUE HAWTHORNE Rep #: [id number] D OB: 1945 F 69 From: Phani Davis MD PCP: Clemencia Ferreira DO Status: REG CLI Study: Abdomen WITH and W/O Contrast Date of Exam: 05/31/15 Exam# [id number] Ordering Dr: Clemencia Ferreira DO STUDY: MRI [...] MD at 23:52 EDT , Service support [phone], Fax CC: Clemencia Ferreira DO Linen Sorter: Signed 29-May-2015 Dexa Bone Density Study (HP) Result: Comments: See Note; NOTES: [facility] Imaging Services [address] [place] [address] Bone Density Report MR#: [id number] Acct: [id number] Name: SUE HAWTHORNE Rep #: [id number] : 1945 F 69 From: Yousif Hathaway MD PCP: Clemencia Ferreira DO Status: [facility] CLI Study: Dexa Bone Density Study (HP) Date of Exam: 05/29/15 Exam# [id number] Ordering Dr: Clemencia Ferreira DO STUDY: DUAL [...] Yousif Hathaway MD at 15:45 EDT Tel [phone], Service support [phone], CC: Clemencia Ferreira DO Linen Sorter: Signed 25-Apr-2015 Liver Result: Comments: See Note; NOTES: [facility] Imaging Services [address] [place] [address] Ultrasound Report MR#: [id number] Acct: [id number] Name: SUE HAWTHORNE Rep #: [id number] : 1945 F 69 From: Naomi Strauss MD PCP: Clemencia Ferreira DO Status: REG CLI Study: Liver Date of Exam: 04/25/15 Exam# [id number] Ordering Dr: Clemencia Ferreira DO STUDY: ABDOMINAL [...] 1 1:49 EDT Tel , Service support [phone], CC: Clemencia Ferreira DO Linen Sorter: Signed 18-Apr-2015 Foot min 3 Views Result: Comments: See Note; NOTES: [facility] Imaging Services [address] [place] [address] Radiology Report MR#: [id number] Acct: [id number] Name: SUE HAWTHORNE Rep #: [id number] : 1945 F 69 From: Shanell Branch MD PCP: Clemencia Ferreira DO Status: REG CLI Study: Foot min 3 Views Date of Exam: 04/18/15 Exam# [id number] Ordering Dr: Ginny Currie DO STUDY: X-RAY [...] MD at 14:31 EDT , Service support [phone], RAD/Foot min 3 Views IMPRESSION: Stable arthrosis with calcaneal spurs. Near-anatomic alignment of the base of the fifth metatarsal fracture with no complications. Electronically Signed: Shanell Branch MD at 14:31 EDT , Service support [phone], CC: Ginny Currie DO; Clemencia Ferreira DO Linen Sorter: Signed 12-Mar-2015 Foot min 3 Views Result: Comments: See Note; NOTES: [facility] Imaging Services [address] [place] [address] Radiology Report MR#: [id number] Acct: [id number] Name: SUE HAWTHORNE Rep #: [id number] : 1945 F 69 From: Shanell Branch MD PCP: Clemencia Ferreira DO Status: REG CLI Study: Foot min 3 Views Date of Exam: 03/12/15 Exam# [id number] Ordering Dr: Ginny Currie DO STUDY: X-RAY [...] 03/12 at 15:44 EDT , Service support [phone], CC: Ginny Ferreira DO Linen Sorter: Signed 15-Feb-2015 Emergency Department Summary Result: Comments: See Note; NOTES: [facility] Medical Records Department [address] [facility] [place] [address] Emergency Department Summary MR#: [id number] Acct: [id number] Name: Sussy HAWTHORNE Rep #: [id number] : 1945 69 From: Stephany Francois DO [...] patient also sees an orthopedic surgeon in [place]. A LLERGIES: No known drug allergies. SOCIAL [...] a postoperative shoe, given crutches, script for Madison for pain, instructed to ice and elevate the extremity. Follow up with her orthopedic surgeon or Dr. Currie at the patient's request. DISPOSITION: Disch arged to home in stable condition. Stephany Francois DO T: NTS JOB: [id number] 02/15/15 1039 <Electronically signed by Stephany Francois DO> Date Stephany Francois DO CC: Clemencia Ferreira DO Date Dictated: 02/05/151752 Date Transcribed: 02/05/151752 Linen Sorter: Signed 12-Feb-2015 Foot min 3 Views Result: Comments: See Note; NOTES: [facility] Imaging Services [address] [place] [address] Radiology Report MR#: [id number] Acct: [id number] Name: SUE HAWTHORNE Rep #: [id number] : 1945 F 69 From: Sohan Castaneda MD PCP: Clemencia Ferreira DO Status: REG CLI Study: Foot min 3 Views Date of Exam: 02/12/15 Exam# [id number] Ordering Dr: Ginny Currie DO STUDY: X-RAY [...] at 11:36 EDT Tel , Service support [phone], RAD/Foot min 3 Views IMPRESSION: 1. Fracture of the b ase of the fifth metatarsal bone, unchanged. 2. Degenerative changes. Electronically Signed: Sohan Castaneda MD at 11:36 EDT Tel , Service support [phone], Fax CC: Ginny Currie DO; Clemencia Ferreira DO Linen Sorter: Signed 05-Feb-2015 Discharge Instruction Result: Comments: See Note; NOTES: [facility] Medical Records Department [address] [place] [address] Discharge Instruction 02/05/15 175 MR#: [id number] Acct: [id number] Name: SUE HAWTHORNE Rep #: [id number] : 1945 69 From: Stephany Francois DO PCP: Clemencia Ferreira DO Status: PRE ER ED Disposition - Plan for ED Patient: Chief Complaint: Lower Extremity Injury Instruc tions: ED Fracture, Foot Prescriptions: Hydrocodone Bitart/Apap 5-325 [Madison 5/325] 1 - 2 tablet PO Q4H [...] 3 Views Result: Comments: See Note; NOTES: [facility] Imaging Services [address] [place] [address] Radiology Report MR#: [id number] Acct: [id number] Name: SUE HAWTHORNE Rep #: [id number] : 1945 F 69 From: Yousif Hathaway MD PCP: Clemencia Ferreira DO Status: DEP ER Study: Foot min 3 Views Date of Exam: 02/05/15 Exam# [id number] Ordering Dr: Malachi Sena STUDY: X-RAY - [...] Yousif Hathaway MD at 8:47 EDT Tel [phone], Service support [phone], CC: Clemencia Ferreira DO; ED PHYSICIAN PROVIDER Linen Sorter: Signed 07-Jun-2014 Liver Result: Comments: See Note; NOTES: [facility] Imaging Services [address] [place] [address] Ultrasound Report MR#: [id number] Acct: [id number] Name: SUE HAWTHORNE Rep #: [id number] : 1945 F 68 From: Yousif Hathaway MD PCP: Clemencia Ferreira DO Status: REG CLI Study: Liver Date of Exam: 06/07/14 Exam# [id number] Ordering Dr: Clemencia Ferreira DO STUDY: ABDOMINAL [...] Yousif Hathaway MD at 10:40 EDT Tel [phone], Service support , CC: Clemencia Ferreira DO Linen Sorter: Signed Immunization Name Dates Details Influenza (3 years and up) on: 02-Sep-2007 Influenza (3 years and up) on: 07-Sep-2008 Comments: Lot #:[id number] date:04/16Amount given:0.5mlRoute: IMSite given:left delGiven by: BEBA Higgins Influenza (3 years and up) on: 05-Aug-2009 Comments: Lot #:[id number] date:mount given:0.5mlRoute: IMSite given:left deltGiven by: BEBA [...] smoker Vital Signs Date Test Result Details 7-Gfd-838746:55 Temperature 97.2 f Comments: Method: Temporal Pulse [...] kg/m2 Body Surface Area Calculated 1.86 m2 54-Bej-433309:12 Pulse 73 /min Comments: Pattern: Regular Respiration [...] kg/m2 Body Surface Area Calculated 1.86 m2 51-Vbz-41360:50 Comments: orthos 144/41948/75117/78 Temperature 97.2 f Pulse 79 /min Comments: [...] kg/m2 Body Surface Area Calculated 1.86 m2 60-Tjv-367615:10 Comments: Dr. Majano and had a glaucoam [...] kg/m2 Body Surface Area Calculated 1.86 m2 4-Yzs-052429:08 Pulse 70 /min Comments: Pattern: Regular Respiration [...] kg/m2 Body Surface Area Calculated 1.85 m2 17-Siw-065517:24 Pulse 78 /min Comments: Pattern: Regular Respiration [...] kg/m2 Body Surface Area Calculated 1.85 m2 7-Jtl-198518:00 Pulse 79 /min Comments: Pattern: Regular Respiration [...] Height 0 in Head Circumference 0.00 cm 59-Wmr-071490:36 Temperature 97.1 f Comments: Method: Oral Pulse [...] Description Value Details :56 HgA1C , Office (28665) HgA1C , Office 5.5 % (Normal) Range: 4.6 - 7.1 7-Jpl-059290:56 Blood Glucose , Office (02424) Blood Glucose , Office 86 (Normal) C difficile Toxins A+B, Negative (Normal) Comments: PATIENT NOT FASTINGPERFORMED BY: [employer] [facility] [id number] Information: [id number] 5:32 EIA NTI Miscellaneous COMMNT (Normal) Comments: PATIENT NOT FASTINGPERFORMED BY: Fetch MD [employer] [facility]UNC [facility] [id number] 5:32 Comments: Test not indicated.. Written Authorization WAR (Normal) Comments: PATIENT NOT FASTINGPERFORMED BY: [employer] Dvkusw7309 [place] [facility] [id number] 5:32 Comments: Written Authorization Received.Authorization received from Original requisition [id number] by [facility] 96-Tec-274165:31 OCCULT BLOOD FECES Comments: PATIENT NOT FASTINGPERFORMED BY: [employer] Bvwrom5057 [place] [facility] [id number] Information: SRC:STOOL = FECAL [id number] SCREEN (09682) Occult Blood, Fecal, IA Negative (Normal) 10-Uva-498283:32 OVA & PARASITE DIR SMEAR Comments: PATIENT NOT FASTINGPERFORMED BY: [employer] Jpmiun3535 [facility] [id number] (10957) Result 1 NOCP (Normal) Comments: No ova, cysts, or parasites seen. Ova + Parasite Exam Final report (Normal) Comments: These results were obtained using wet preparation(s) and trichromestained smear. This test does not include testing for Cryptosporidiumparvum, Cyclospora, or Microsporidia. 79-Hkr-917872:32 LEUKOCYTE COUNT, FECAL Comments: PATIENT NOT FASTINGPERFORMED BY: [employer] Egpsvp5544 [facility] [id number] (21600) Result 1 WCM (Abnormal) Comments: Moderate amount of white blood cells. White Blood Cells (WBC), Final report (Abnormal) Stool 72-Dox-618384:32 WON CULTURE-STOOL (99188) Comments: PATIENT NOT FASTINGPERFORMED BY: [employer] Jlrhsl8383 [facility] [id number] Information: [id number] E coli Shiga Toxin EIA Negative (Normal) Result 1 NCI (Normal) Comments: No Campylobacter species isolated. Campylobacter Culture Final report (Normal) Result 1 NSS (Normal) Comments: No Salmonella or Shigella recovered. Salmonella/Shigella Screen Final report (Normal) 2-Tad-520640:10 Blood Glucose , Office (88855) Blood Glucose , Office 79 (Normal) 7-Vua-060681:10 HgA1C , Office (86636) HgA1C , Office 5.3 % (Normal) Range: 4.6 - 7.1 6-Alj-918344:02 CBC With Differential/Platelet Comments: PATIENT WAS FASTINGPERFORMED BY: SIRION BIOTECHSsm Health Care Uydymg9002 [facility] [id number] Immature Grans (Abs) 0.0 {x10E3/uL} (Normal) Range: [...] 3.77-5.28 WBC 6.3 {x10E3/uL} (Normal) Range: 3.4-10.8 2-Szt-433257:02 Comp. Metabolic Panel (14) Comments: PATIENT WAS FASTINGPERFORMED BY: LabCoSt. Joseph's Wayne HospitalCqmjgc2018 [facility] [id number] ALT (SGPT) 12 [iU]/L (Normal) Range: 0-32 [...] 8-27 Glucose 92 mg/dL (Normal) Range: 65-99 3-Zbq-265102:02 Lipid Panel With LDL/HDL Comments: PATIENT WAS FASTINGPERFORMED BY: [employer] [facility] [id number]; ov 6/7 Ratio LDL/HDL Ratio 1.5 {ratio} [...] 3.240 {uIU/mL} Comments: PATIENT WAS FASTINGPERFORMED BY: [employer] [facility] [id number] 02 (Normal) Range: 0.450-4.500 34-Irj-561382:54 CBC-Complete Blood Cnt No Diff Comments: [facility] [address] [place], [place], [address] MPV 9.2 fL (Normal) Range: 6.2-12.0 PLT [...] 4.2-5.4 WBC 6.8 K/mm3 (Normal) Range: 4.4-11.0 5-Lnl-176955:28 HgA1C , Office (00900) HgA1C , Office 5.3 % (Normal) Range: 4.6 - 7.1 7-Ibl-061241:28 Blood Glucose , Office (06985) Blood Glucose , Office 93 (Normal) 82-Baq-928562:26 Microscopic Examination Comments: PATIENT WAS FASTINGPERFORMED BY: [facility]ixUNC [facility] [id number] Bacteria None seen (Normal) Mucus Threads Present (Normal) Crystal Type Calcium Oxalate (Normal) Crystals Present (Abnormal) Cast Type Hyaline casts (Normal) Casts Present {/lpf} (Abnormal) Epithelial Cells (non renal) None seen {/hpf} (Normal) Range: 0 - 10 RBC None seen {/hpf} (Normal) Range: 0 - 2 WBC 0-5 {/hpf} (Normal) Range: 0 - 5 36-Yqc-500080:26 TSH (14158) Comments: PATIENT WAS FASTINGPERFORMED BY: YeahMobi70 TechtiumUNC Hospitals Hills[facility] [id number] TSH 3.380 {uIU/mL} (Normal) Range: 0.450-4.500 92-Kbc-804380:26 URINALYSIS, W/ MICRO (73836) Comments: PATIENT WAS FASTINGPERFORMED BY: [employer] [place] [facility] [id number] Microscopic Examination See below: (Normal) Comments: Microscopic was indicated and was performed. Microscopic Examination MICRON (Normal) Comments: Microscopic follows if indicated. Nitrite, Urine Negative (Normal) Urobilinogen,Semi-Qn 0.2 mg/dL (Normal) Range: 0.2-1.0 Bilirubin Negative (Normal) Occult Blood Negative (Normal) Ketones Negative (Normal) Glucose Negative (Normal) Protein Negative (Normal) WBC Esterase Negative (Normal) Appearance Clear (Normal) Urine-Color Yellow (Normal) pH 5.0 (Normal) Range: 5.0-7.5 Specific [place] 1.025 (Normal) Range: 1.005-1.030 10-Iyf-959305:26 MICROALBUMIN: CREATININE RATIO Comments: PATIENT WAS FASTINGPERFORMED BY: YeahMobi70 [facility] [id number] (49436) AND (59332) Microalb/Creat Ratio 5.4 {mg/g_creat} (Normal) Range: 0.0-30.0 Creatinine, Urine 222.5 mg/dL (Normal) Microalbumin, Urine 12.1 ug/mL (Normal) 82-Whu-447030:26 METABOLIC PANEL, COMPREHENSIVE Comments: PATIENT WAS FASTINGPERFORMED BY: YeahMobi70 Salguero [facility] [id number] (64341) ALT (SGPT) 38 [iU]/L (Abnormal) Range: 0-32 [...] Glucose, Serum 94 mg/dL (Normal) Range: 65-99 51-Nym-779671:26 LIPID PANEL (46083) Comments: PATIENT WAS FASTINGPERFORMED BY: YeahMobi70 TechtiumUNC [facility]als [facility] [id number] LDL/HDL Ratio 1.6 {ratio_units} (Normal) Range: 0.0-3.2 Comments: LDL/HDL Ratio Men Women 1/2 Avg.Risk 1.0 1.5 Av g.Risk 3.6 3.2 2X Avg.Risk 6.2 5.0 3X Avg.Risk 8.0 6.1 LDL Cholesterol Calc 104 mg/dL (Abnormal) Range: 0-99 VLDL Cholesterol Sumeet 28 mg/dL (Normal) Range: 5-40 HDL Cholesterol 66 mg/dL (Normal) Triglycerides 139 mg/dL (Normal) Range: 0-149 Cholesterol, Total 198 mg/dL (Normal) Range: 100-199 37-Vov-712625:26 CBC W/AUTO DIFF WBC (82635) Comments: PATIENT WAS FASTINGPERFORMED BY: Pennant6370 [facility]chtiumUNC [facility] [id number] Immature Grans (Abs) 0.0 {x10E3/uL} (Normal) Range: [...] Range: 3.4-10.8 :22 Blood Glucose , Office (65069) Blood Glucose , Office 102 (Normal) 0-Rgz-988827:22 HgA1C , Office (51387) HgA1C , Office 5.5 % (Normal) Range: 4.6 - 7.1 15-Apr-20178:00 Pathology Report Comments: PERFORMED BY: [facility] [place] Cyto Yxzdf98779 [facility] [id number] BY: [facility] Dermatopathology Qbrjqwn845 [address] [id number] Information: [id number] See MATER Comments: Material submitted: .RIGHT ARM [...] IN CASSETTE(S) A./LMSLMS/LMSPathologist p rovided ICD-10:L44.9, D23.61CPT .861521 27-Thi-265831:27 LIPID PANEL (53442) Comments: PATIENT WAS FASTINGPERFORMED BY: [facility] Peyapu4757 [facility] [id number] LDL/HDL Ratio 1.5 {ratio_units} (Normal) Range: 0.0-3.2 Comments: LDL/HDL Ratio Men Women 1/2 Avg.Risk 1.0 1.5 Av g.Risk 3.6 3.2 2X Avg.Risk 6.2 5.0 3X Avg.Risk 8.0 6.1 LDL Cholesterol Calc 101 mg/dL (Abnormal) Range: 0-99 VLDL Cholesterol Sumeet 18 mg/dL (Normal) Range: 5-40 HDL Cholesterol 69 mg/dL (Normal) Triglycerides 90 mg/dL (Normal) Range: 0-149 Cholesterol, Total 188 mg/dL (Normal) Range: 100-199 2-Qws-071892:45 HgA1C , Office (55764) HgA1C , Office 5.4 % (Normal) Range: 4.6 - 7.1 1-Bgr-571530:45 Blood Glucose , Office (95932) Blood Glucose , Office 86 (Normal) :0 C difficile Toxins Negative (Normal) Comments: PATIENT NOT FASTINGPERFORMED BY: SIRION BIOTECHBronson Lakeview Hospital6370 [facility] [id number] 5 A+B, EIA :05 Giardia, EIA, Ova/Parasite Comments: PATIENT NOT FASTINGPERFORMED BY: LabS[facility] Yccqhf1633 [facility] [id number] Giardia lamblia Ag, Negative (Normal) EIA Result 1 NOCP (Normal) Comments: No ova, cysts, or parasites seen. Ova + Parasite Exam Final report Comments: These results were obtained using wet preparation(s) and trichromestained smear. This test does not include testing for Cryptosporidiumparvum, Cyclospora, or Microsporidia. (Normal) :0 Occult Blood, Fecal, Negative (Normal) Comments: PATIENT NOT FASTINGPERFORMED BY: [facility] Fvfzmh4258 [facility] [id number] 5 IA 07-Jan-20171:05 Stool Culture Comments: PATIENT NOT FASTINGPERFORMED BY: [facility]6370 [facility] [id number] Information: SRC:ST SRC:ST E coli Shiga Toxin EIA Negative (Normal) Result 1 NCI (Normal) Comments: No Campylobacter species isolated. Campylobacter Culture Final report (Normal) Result 1 NSS (Normal) Comments: No Salmonella or Shigella recovered. Salmonella/Shigella Screen Final report (Normal) :05 White Blood Cells (WBC), Comments: PATIENT NOT FASTINGPERFORMED BY: [facility] Xaomnx7707 [facility] [id number] Stool Result 1 NWBC (Normal) Comments: No white blood cells seen. White Blood Cells (WBC), Final report (Normal) Stool 4-Wbi-822778:00 CBC W/AUTO DIFF WBC (58037) Comments: PATIENT NOT FASTINGPERFORMED BY: [facility] Isurxk7948 [facility] [id number] Immature Grans (Abs) 0.0 {x10E3/uL} (Normal) Range: [...] 3.77-5.28 WBC 5.7 {x10E3/uL} (Normal) Range: 3.4-10.8 46-Gvh-287915:54 AFP, Tumor Marker Comments: Is Patient ? [facility] (refer to report for specific site)refer to report for address and phone number AFP TUMOR 2253 9.5 ng/mL (Abnormal) Range: 0.0-8.3 Comments: Izaiah ECLIA methodologyPerformed at: - [employer] [id number] Director: Zander Saunders PhD, Phone: [phone] 68-Otl-468981:28 MICROALBUMIN: CREATININE RATIO Comments: PATIENT WAS FASTINGPERFORMED BY: Fetch MD[address] [id number] (25193) AND (48955) Microalb/Creat Ratio 11.8 {mg/g_creat} (Normal) Range: 0.0-30.0 Microalbumin, Urine 27.0 ug/mL (Normal) Creatinine, Urine 229.1 mg/dL (Normal) 95-Rmw-617785:28 CALCIFEDIOL (35646) Comments: PATIENT WAS FASTINGPERFORMED BY: [employer] Yejmui4084 [facility] [id number] Vitamin D, 25-Hydroxy 49.4 ng/mL (Normal) Range: 30.0-100.0 Comments: Vitamin D deficiency has been defined by the [place] ofMedicine and an Endocrine Society practice guideline as alevel of serum 25-OH vitamin D less than 20 ng/mL (1,2).The Endocrine Society went on to further define vitamin Dinsufficiency as a level between 21 and 29 ng/mL (2).1. IOM ([place] of Medicine). 2010. Dietary reference intakes for calcium and D. [place]: The National Academies Press.2. Hannah MF, Hilda SONG, Cindy FREED, et al. Evaluation, treatment, and prevention of vitamin D deficiency: an Endocrine Society clinical practice guideline. JCEM. 2010; 96(7):1911-30. 61-Pbx-152628:28 TSH (THYROID STIMULATING Comments: PATIENT WAS FASTINGPERFORMED BY: [employer]6370 [facility] [id number] HORMONE) (17331) TSH 2.320 {uIU/mL} (Normal) Range: 0.450-4.500 03-Acf-881379:28 LIPID PANEL (86786) Comments: PATIENT WAS FASTINGPERFORMED BY: [employer] Ujdnan3489 [facility] [place] [id number] LDL/HDL Ratio 1.2 {ratio_units} (Normal) Range: 0.0-3.2 Comments: LDL/HDL Ratio Men Women 1/2 Avg.Risk 1.0 1.5 Av g.Risk 3.6 3.2 2X Avg.Risk 6.2 5.0 3X Avg.Risk 8.0 6.1 LDL Cholesterol Calc 95 mg/dL (Normal) Range: 0-99 VLDL Cholesterol Sumeet 25 mg/dL (Normal) Range: 5-40 HDL Cholesterol 79 mg/dL (Normal) Triglycerides 126 mg/dL (Normal) Range: 0-149 Cholesterol, Total 199 mg/dL (Normal) Range: 100-199 45-Srf-976910:28 METABOLIC PANEL, COMPREHENSIVE Comments: PATIENT WAS FASTINGPERFORMED BY: [employer]70 [address] [facility] [id number] (66435) ALT (SGPT) 16 [iU]/L (Normal) Range: 0-32 [...] Glucose, Serum 99 mg/dL (Normal) Range: 65-99 59-Wds-495722:28 CBC, PLATELETS & AUT DIFF Comments: PATIENT WAS FASTINGPERFORMED BY: [facility] Umjkby5972 [facility] [id number]; fu 03/11 KF (51593) Immature Grans (Abs) 0.0 {x10E3/uL} (Normal) Range: [...] (Normal) Range: 3.4-10.8 :51 HgA1C , Office (40131) HgA1C , Office 5.5 % (Normal) Range: 4.6 - 7.1 :51 Blood Glucose , Office (45519) Blood Glucose , Office 91 (Normal) 2-Fcz-745194:11 Serum Creatinine AND GFR Comments: STAT!!![facility] [address] [place], [place], [id number] EST GFR - AA 91 mL/min (Normal) Comments: GFR Calc EST GFR 76 mL/min (Normal) Comments: Non- GFR Calc CREAT,SERUM 0.80 mg/dL (Normal) Range: 0.55-1.02 Comments: The validity of the calculated GFR AND GFRAA in patients over70 years has not been determined. Clinical correlation isessential. 8-Wnj-222666:05 AFP, Tumor Marker Comments: Is Patient ? [facility] (refer to report for specific site)refer to report for address and phone number AFP TUMOR 2253 10.2 ng/mL (Abnormal) Range: 0.0-8.3 Comments: Sape ECLIA methodologyPerformed at: [facility] [address] [id number] Director: Zander Saunders PhD, Phone: [phone] :[phone] CBC W/Diff, Automated Comments: [facility] [address] [place], [place], [id number] Absolute Lymph 1.56 {X10_3/ul} (Normal) Range: 0.83-4.51 [...] 4.2-5.4 WBC 5.0 K/mm3 (Normal) Range: 4.4-11.0 4-Gac-226954:05 Comprehensive Metabolic Profil Comments: Is Patient Taking Vitamins or Folic Acid Supplements? [facility] [address] [place], [address] GAP 8 (Normal) Range: 5-15 CO2 29.0 [...] 7-18 GLU 91 mg/dL (Normal) Range: 70-110 2-Xip-499602:05 Folates, (Folic Acid) Comments: Is Patient Taking Vitamins or Folic Acid Supplements? [facility] Fstamyegab[address] [place], [address] FOLATES 37.50 ng/mL (Abnormal) Range: 3.1-17.5 7-Ktn-929137:05 Lipid Profile Comments: Is Patient Taking Vitamins or Folic Acid Supplements? [facility] X[address]smaija[address] [place], [address] VLDL 36 [...] 200-240 mg/dL Borderline >240 mg/dL High Risk 9-Agg-645118:05 Thyroid Stim Hormone (TSH) Comments: Is Patient Taking Vitamins or Folic Acid Supplements? [facility] [address] [place], [address] TSH 1.94 {uIU/mL} (Normal) Range: 0.358-3.74 5-Oyr-840733:05 Vitamin B12 668 pg/mL (Normal) Comments: [facility] [address]wejj[address] [place] [place], [address] Range: 211-911 5-Lil-731651:05 Vitamin D,25 Hydroxy Comments: [facility] [address] [place], [address] Vitamin D 25-OH 38.6 ng/mL (Normal) Comments: Vitamin D 25(OH) Status Range Deficiency <20 ng/mL (50nmol/L) Insuffciency 20 - 30 ng/mL (50 - 75 nmol/L) Sufficiency 30 - 100 ng/mL (75 - 250 nmol/L) Toxicity >100 ng/mL (>250 nmol/L) :38 HgA1C , Office (54784) HgA1C , Office 5.3 % (Normal) Range: 4.6 - 7.1 :38 Blood Glucose , Office (40169) Blood Glucose , Office 89 (Normal) :48 MICROALBUMIN: CREATININE RATIO Comments: PATIENT NOT FASTINGPERFORMED BY: InCarda TherapeuticsSt. Joseph's Wayne HospitalToqtuz2298 [facility] [id number] (27319) AND (55468) Microalb/Creat Ratio 3.2 {mg/g_creat} (Normal) Range: 0.0-30.0 Microalbumin, Urine 3.8 ug/mL (Normal) Creatinine, Urine 119.1 mg/dL (Normal) :48 CBC W/AUTO DIFF WBC Comments: PATIENT NOT FASTINGPERFORMED BY: BERE [facility] Hvdrnf6183 [facility] [id number] Information: [id number],F58851 PT HAD COFF EE WITH CREAM (88052) Immature Grans (Abs) 0.0 {x10E3/uL} (Normal) Range: [...] {x10E3/uL} (Normal) Range: 3.4-10.8 :48 LIPID PANEL (58731) Comments: PATIENT NOT FASTINGPERFORMED BY: Fetch MD Qmwnpb2215 SalgueroGenevolve Vision DiagnosticsPerson [facility] Hospital [id number] LDL/HDL Ratio 1.7 {ratio_units} (Normal) Range: 0.0-3.2 [...] PANEL, COMPREHENSIVE Comments: PATIENT NOT FASTINGPERFORMED BY: Fetch MD Rnxjhf9506 [address] [facility] [id number] (03826) ALT (SGPT) 13 [iU]/L (Normal) Range: 0-32 [...] Serum 86 mg/dL (Normal) Range: 65-99 :48 OJYEB-HEZTVNFVSMJ-CQSAF (08288) Comments: PATIENT NOT FASTINGPERFORMED BY: [employer]6370 TechtiumUNC Hospitals [facility] Campus [id number] AFP, Serum, Tumor Marker 9.5 ng/mL (Abnormal) Range: 0.0-8.3 Comments: Izaiah ECLIA methodology :11 HgA1C , Office (42738) HgA1C , Office 5.4 % (Normal) Range: 4.6 - 7.1 :11 HgA1C , Office (88673) HgA1C , Office 5.5 % (Normal) Range: 4.6 - 7.1 :37 LIPID PANEL (74602) Comments: PATIENT WAS FASTINGPERFORMED BY: [employer]6370 [address] [facility] [id number] LDL/HDL Ratio 1.8 {ratio_units} (Normal) Range: 0.0-3.2 [...] Cholesterol, Total 255 mg/dL (Abnormal) Range: 100-199 69-Whf-299646:37 METABOLIC PANEL, Comments: PATIENT WAS FASTINGPERFORMED BY: LabCoSt. Joseph's Wayne HospitalGpklyc3305 [facility] [id number] Information: [id number] COMPREHENSIVE (16381) ALT (SGPT) 15 [iU]/L (Normal) Range: 0-32 [...] Glucose, Serum 91 mg/dL (Normal) Range: 65-99 74-Toc-507934:37 QYQOB-PPOSCWJYBTP-RZWVW (29198) Comments: PATIENT WAS FASTINGPERFORMED BY: [facility]6370 [facility] [id number] AFP, Serum, Tumor Marker 10.1 ng/mL (Abnormal) Range: 0.0-8.3 Comments: Izaiah ECLIA methodology :54 [id number]-DQFTFJUXOQE-DDXZV (71931) Comments: 2 months; PATIENT NOT FASTINGPERFORMED BY: [address] [id number] Information: [id number] AFP, Serum, Tumor Marker 10.3 ng/mL (Abnormal) Range: 0.0-8.3 Comments: Izaiah ECLIA methodology 9-Yhv-614456:04 HgA1C , Office (82375) HgA1C , Office 5.9 % (Normal) Range: 4.6 - 7.1 :00 Serum Creatinine AND GFR Comments: Test performed at:[facility] Mg[address]se[address] [place], [place] [address] EST GFR - AA 81 mL/min (Normal) EST GFR 67 mL/min (Normal) CREAT,SERUM 0.89 mg/dL (Normal) Range: 0.55-1.20 Comments: Please note revised CREATININE reference range zrqxiqtuj62/22/2015. 52-Ehk-224704:19 CBC with auto diff Comments: PATIENT WAS FASTINGPERFORMED BY: [address] [id number] Information: [id number] (66824) Immature Grans (Abs) 0.0 {x10E3/uL} (Normal) Range: [...] 3.77-5.28 WBC 5.5 {x10E3/uL} (Normal) Range: 3.4-10.8 82-Ymu-419833:19 MICROALBUMIN: CREATININE RATIO Comments: PATIENT WAS FASTINGPERFORMED BY: [employer] [facility] [id number] (57361) AND (49454) Microalb/Creat Ratio <3.5 {mg/g_creat} (Normal) Range: 0.0-30.0 Microalbumin, Urine <3.0 ug/mL (Normal) Range: 0.0-17.0 Creatinine, Urine 85.8 mg/dL (Normal) Range: 15.0-278.0 55-Wvl-594612:19 METABOLIC PANEL, COMPREHENSIVE Comments: PATIENT WAS FASTINGPERFORMED BY: [employer] [facility] [id number] (22980) ALT (SGPT) 11 [iU]/L (Normal) Range: 0-32 [...] Glucose, Serum 94 mg/dL (Normal) Range: 65-99 12-Vza-004492:19 LIPID PANEL (22664) Comments: PATIENT WAS FASTINGPERFORMED BY: LabCoSt. Joseph's Wayne HospitalTeilsu5523 [facility] [id number] LDL/HDL Ratio 1.8 {ratio_units} (Normal) Range: 0.0-3.2 [...] Cholesterol, Total 230 mg/dL (Abnormal) Range: 100-199 31-Nqb-954230:19 LEBXL-PHDZQXNHGTG-GOWBQ (56334) Comments: PATIENT WAS FASTINGPERFORMED BY: InCarda TherapeuticsSt. Joseph's Wayne HospitalRsebfm2956 [facility] [id number] AFP, Serum, Tumor Marker 9.4 ng/mL (Abnormal) Range: 0.0-8.3 Comments: Izaiah ECLIA methodology :33 HgA1C , Office (96306) HgA1C , Office 5.9 % (Normal) Range: 4.6 - 7.1 AFP, Serum, Tumor 8.6 ng/mL (Abnormal) Comments: PATIENT WAS FASTINGPERFORMED BY: InCarda TherapeuticsSt. Joseph's Wayne HospitalDcluta6680 [facility] [id number] :02 Marker Range: 0.0-8.3 Comments: Izaiah ECLIA methodology :02 CBC With Differential/Platelet Comments: PATIENT WAS FASTINGPERFORMED BY: InCarda TherapeuticsSt. Joseph's Wayne HospitalYvikdb3445 [facility] [id number] Information: [id number] Immature Grans (Abs) 0.0 {x10E3/uL} (Normal) Range: [...] 3.77-5.28 WBC 5.1 {x10E3/uL} (Normal) Range: 3.4-10.8 73-Zar-135786:02 Comp. Metabolic Panel (14) Comments: PATIENT WAS FASTINGPERFORMED BY: LabCoSt. Joseph's Wayne HospitalBsmhpf7664 [facility] [id number] ALT (SGPT) 16 [iU]/L (Normal) Range: 0-32 [...] Glucose, Serum 84 mg/dL (Normal) Range: 65-99 22-Ety-643043:02 Lipid Panel With LDL/HDL Comments: PATIENT WAS FASTINGPERFORMED BY: [facility]6370 [facility] [id number] Ratio LDL/HDL Ratio 1.7 {ratio_units} Range: 0.0-3.2 [...] {uIU/mL} (Normal) Comments: PATIENT WAS FASTINGPERFORMED BY: [facility]6370 [facility] [id number] 13:02 Range: 0.450-4.500 79-Far-45475:47 HgA1C , Office (32050) HgA1C , Office 5.6 % (Normal) Range: 4.6 - 7.1 9-Mmi-853149:12 SEBXP-KZINNFLVSYT-LWOTL (01389) Comments: PATIENT NOT FASTINGPERFORMED BY: [facility]6370 [facility] [id number] AFP, Serum, Tumor Marker 9.2 ng/mL (Abnormal) Range: 0.0-8.3 Comments: Izaiah ECLIA methodology 7-Khn-998312:12 CBC W/AUTO DIFF WBC Comments: PATIENT NOT FASTINGPERFORMED BY: [place] 4413170 [facility] [id number] Information: [id number], [id number] (15022) Immature Grans (Abs) 0.0 {x10E3/uL} (Normal) Range: [...] 3.77-5.28 WBC 7.3 {x10E3/uL} (Normal) Range: 3.4-10.8 9-Cny-362678:12 METABOLIC PANEL, COMPREHENSIVE Comments: PATIENT NOT FASTINGPERFORMED BY: LabCoSt. Joseph's Wayne HospitalZesegg3735 [facility] [id number] (15179) ALT (SGPT) 15 [iU]/L (Normal) Range: 0-32 [...] Glucose, Serum 84 mg/dL (Normal) Range: 65-99 0-Upl-112111:12 LIPID PANEL (18844) Comments: PATIENT NOT FASTINGPERFORMED BY: LabCoSt. Joseph's Wayne HospitalVqrokk4150 [facility] [id number] LDL/HDL Ratio 1.3 {ratio_units} (Normal) Range: 0.0-3.2 [...] Cholesterol, Total 199 mg/dL (Normal) Range: 100-199 75-Gty-445929:05 HgA1C , Office (73169) HgA1C , Office 5.8 % (Normal) Range: 4.6 - 7.1 2-Urk-019026:21 QHWLT-YDPEOOJZCHD-JDTUA (26417) Comments: get us of liver; PATIENT WAS FASTINGPERFORMED BY: [employer] [facility] [id number] AFP, Serum, Tumor Marker 8.6 ng/mL (Abnormal) Range: 0.0-8.3 Comments: Izaiah ECLIA methodology 6-Jfz-044617:21 MICROALBUMIN: CREATININE RATIO Comments: PATIENT WAS FASTINGPERFORMED BY: [employer] [facility] [id number] (18281) AND (88153) Microalb/Creat Ratio 7.2 {mg/g_creat} (Normal) Range: 0.0-30.0 Microalbumin, Urine 12.4 ug/mL (Normal) Range: 0.0-17.0 Creatinine, Urine 173.3 mg/dL (Normal) Range: 15.0-278.0 :21 LIPID PANEL (17653) Comments: PATIENT WAS FASTINGPERFORMED BY: YeahMobi70 [facility] [id number] LDL/HDL Ratio 1.5 {ratio_units} (Normal) Range: 0.0-3.2 [...] DIFF Comments: PATIENT WAS FASTINGPERFORMED BY: BERE InCarda TherapeuticsAcoma-Canoncito-Laguna HospitalEoniez0268 [facility] [id number] Information: [id number]; non-emergent till apt this week (80484) Immature Grans (Abs) 0.0 {x10E3/uL} (Normal) Range: [...] 3.77-5.28 WBC 13.8 {x10E3/uL} (Abnormal) Range: 3.4-10.8 6-Zjy-657292:21 METABOLIC PANEL, COMPREHENSIVE Comments: PATIENT WAS FASTINGPERFORMED BY: [employer] Oansea4524 [facility] [id number] (87925) ALT (SGPT) 13 [iU]/L (Normal) Range: 0-32 [...] Glucose, Serum 84 mg/dL (Normal) Range: 65-99 90-Yit-412831:32 HgA1C , Office (74795) HgA1C , Office 5.8 % (Normal) Range: 4.6 - 7.1 :18 Vitamin D Hydroxy (45484) Comments: PATIENT WAS FASTINGPERFORMED BY: [facility] Thiqyr0358 [facility] [id number] Vitamin D, 25-Hydroxy 54.3 ng/mL (Normal) Range: 30.0-100.0 Comments: Vitamin D deficiency has been defined by the [place] ofMedicine and an Endocrine Society practice guideline as alevel of serum 25-OH vitamin D less than 20 ng/mL (1,2).The Endocrine Society went on to further define vitamin Dinsufficiency as a level between 21 and 29 ng/mL (2).1. IOM ([place]ner of Medicine). 2010. Dietary reference intakes for calcium and D. [place]: The National Academies Press.2. Hannah MF, Hilda SONG, Cindy FREED, et al. Evaluation, treatment, and prevention of vitamin D deficiency: an Endocrine Society clinical practice guideline. JCEM. 2010; 96(7):1911-30. 9-Fuw-608013:18 IRON (93712) Comments: PATIENT WAS FASTINGPERFORMED BY: [employer]post [facility] Ayrloo5[address] [facility] [id number] Iron, Serum 86 ug/dL (Normal) Range: 35-155 3-Naq-682606:18 CBC WITH MANUAL DIFF Comments: PATIENT WAS FASTINGPERFORMED BY: [facility] Xtjuos2956 [address] [facility] [id number] Information: [id number] (67663) Immature Grans (Abs) 0.0 {x10E3/uL} (Normal) Range: [...] WBC 6.1 {x10E3/uL} (Normal) Range: 3.4-10.8 :18 CYMVW-LXZDUHBEIAE-XJNVV (85173) Comments: PATIENT WAS FASTINGPERFORMED BY: [address] [id number] AFP, Serum, Tumor Marker 9.6 ng/mL (Abnormal) Range: 0.0-8.3 Comments: Izaiha ECLIA methodology :18 PTT (Activated Partial Comments: PATIENT WAS FASTINGPERFORMED BY: [facility]6370 [facility] [id number] Thromboplastin Time) (57058) aPTT 27 {sec} (Normal) Range: 24-33 Comments: This test has not been validated for monitoring unfractionated heparintherapy. aPTT-based therapeutic ranges for unfractionated heparintherapy have not been established. For general guidelines onHeparin monitoring, refer to the [facility] Directory of Services. :18 PT (Prothrobim Time) (24533) Comments: PATIENT WAS FASTINGPERFORMED BY: [facility]6370 [facility] [id number] Prothrombin Time 10.3 {sec} (Normal) Range: 9.1-12.0 INR 1.0 (Normal) Range: 0.8-1.2 Comments: Reference interval is for non-anticoagulated patients. . Suggested INR therapeutic range for Vitamin K anta gonist therapy: Standard Dose (moderate intensity therapeutic range): 2.0 - 3.0 Higher intensity therapeutic range 2.5 - 3.5 :18 METABOLIC PANEL, COMPREHENSIVE Comments: PATIENT WAS FASTINGPERFORMED BY: [facility] HospitalCoSt. Joseph's [facility] HospitalMojtyx7793 [facility] [id number] (58263) ALT (SGPT) 21 [iU]/L (Normal) Range: 0-32 [...] Glucose, Serum 97 mg/dL (Normal) Range: 65-99 8-Neo-431157:18 LIPID PANEL (49715) Comments: PATIENT WAS FASTINGPERFORMED BY: LabCoSt. Joseph's Wayne HospitalMisdbo4826 [facility] [id number]; will review at 05/25 appt LDL/HDL Ratio [...] (Normal) Range: 100-199 :30 HgA1C , Office (44011) HgA1C , Office 5.7 % (Normal) Range: 4.6 - 7.1 :37 LIPID PANEL (12315) Comments: PATIENT WAS FASTINGPERFORMED BY: [employer]6370 [facility] [id number] Information: [id number] LDL/HDL Ratio 1.2 {ratio_units} (Normal) Range: 0.0-3.2 LDL Cholesterol Calc 86 mg/dL (Normal) Range: 0-99 VLDL Cholesterol Sumeet 20 mg/dL (Normal) Range: 5-40 HDL Cholesterol 73 mg/dL (Normal) Comments: According to ATP-III Guidelines, HDL-C >59 mg/dL is considered anegative risk factor for CHD. Triglycerides 99 mg/dL (Normal) Range: 0-149 Cholesterol, Total 179 mg/dL (Normal) Range: 100-199 :47 Vitamin D Hydroxy (42846) Comments: PATIENT NOT FASTINGPERFORMED BY: [employer]6370 [facility] [id number] Vitamin D, 25-Hydroxy 34.7 ng/mL (Normal) Range: 30.0-100.0 Comments: Vitamin D deficiency has been defined by the [place] ofMedicine and an Endocrine Society practice guideline as alevel of serum 25-OH vitamin D less than 20 ng/mL (1,2).The Endocrine Society went on to further define vitamin Dinsufficiency as a level between 21 and 29 ng/mL (2).1. IOM ([place]ner of Medicine). 2010. Dietary reference intakes for calcium and D. [place]: The National Academies Press.2. Hannah MF, Hilda SONG, Cindy FREED, et al. Evaluation, treatment, and prevention of vitamin D deficiency: an Endocrine Society clinical practice guideline. JCEM. 2010; 96(7):1911-30. :47 CBC WITH MANUAL DIFF Comments: PATIENT NOT FASTINGPERFORMED BY: LabCoSt. Joseph's Wayne HospitalIafsxp3042 [facility] [id number] Information: [id number] (42881) Immature Grans (Abs) 0.0 {x10E3/uL} (Normal) Range: [...] 3.77-5.28 WBC 5.9 {x10E3/uL} (Normal) Range: 3.4-10.8 64-Xyu-498731:47 METABOLIC PANEL, COMPREHENSIVE Comments: PATIENT NOT FASTINGPERFORMED BY: LabBronson [facility] Hospital6370 [facility] [id number] (70353) ALT (SGPT) 37 [iU]/L (Abnormal) Range: 0-32 [...] Serum 99 mg/dL (Normal) Range: 65-99 :47 KNNFH-HPEKHVYDWIT-XILDC (00649) Comments: PATIENT NOT FASTINGPERFORMED BY: [employer] Zwanve2731 [facility] [id number] AFP, Serum, Tumor Marker 7.6 ng/mL (Normal) Range: 0.0-8.3 Comments: Izaiah ECLIA methodology :47 PTT (Activated Partial Comments: PATIENT NOT FASTINGPERFORMED BY: Fetch MDSt. Joseph's Wayne HospitalMpjoql8478 [facility] [id number] Thromboplastin Time) (11270) aPTT 25 {sec} (Normal) Range: 24-33 Comments: This test has not been validated for monitoring unfractionated heparintherapy. aPTT-based therapeutic ranges for unfractionated heparintherapy have not been established. For general guidelines onHeparin monitoring, refer to the [facility] Directory of Services. 83-Amn-907987:47 PT (Prothrobim Time) (46878) Comments: PATIENT NOT FASTINGPERFORMED BY: [place] 4413170 [facility] [id number] INR 1.0 (Normal) Range: 0.8-1.2 Comments: Reference interval is for non-anticoagulated patients. . Suggested INR therapeutic range for Vitamin K anta gonist therapy: Standard Dose (moderate intensity therapeutic range): 2.0 - 3.0 Higher intensity therapeutic range 2.5 - 3.5 Prothrombin Time 10.4 {sec} (Normal) Range: 9.1-12.0 22-Qyr-130601:47 FOLIC ACID SERUM (37825) Comments: PATIENT NOT FASTINGPERFORMED BY: [address] [id number] Folate (Folic Acid), Serum >19.9 ng/mL (Normal) Comments: A serum folate concentration of less than 3.1 ng/mL isconsidered to represent clinical deficiency. 96-Zpz-347190:47 VITAMIN B-12 (CYANOCOBALAMIN) Comments: PATIENT NOT FASTINGPERFORMED BY: [address] [id number] (21365) Vitamin B12 801 pg/mL (Normal) Range: 211-946 05-Azj-382266:47 RETICULOCYTE COUNT MANUL Comments: PATIENT NOT FASTINGPERFORMED BY: [place] 4413170 [facility] [id number] (53011) Reticulocyte Count 0.9 % (Normal) Range: 0.6-2.6 20-Mlx-636106:47 LDH (LD) (LACTATE DEHYDROGENASE) Comments: PATIENT NOT FASTINGPERFORMED BY: [address] [id number] (00646) LDH 203 [iU]/L (Normal) Range: 0-214 85-Gqs-167355:47 IRON BINDING CAPACITY (TIBC) Comments: PATIENT NOT FASTINGPERFORMED BY: [address] RoadDublin [place] [id number] (60059) Iron Saturation 13 % (Abnormal) Range: 15-55 Iron Bind.Cap.(TIBC) 391 ug/dL (Normal) Range: 250-450 Iron, Serum 51 ug/dL (Normal) Range: 35-155 UIBC 340 ug/dL (Normal) Range: 150-375 56-Arg-198168:47 FERRITIN (19591) Comments: PATIENT NOT FASTINGPERFORMED BY: SIRION BIOTECHSsm Health Care Gdbcdr1631 [facility] [id number] Ferritin, Serum 7 ng/mL (Abnormal) Range: 15-150 06-Xua-434594:06 CULTURE, SPUTUM (47237) Comments: PATIENT NOT FASTINGPERFORMED BY: SIRION BIOTECHSsm Health Care Crtgck4509 [facility] [id number] Information: SRC: SPUTUM Result 1 RRF (Normal) Comments: Routine respiratory trip Lower Respiratory Culture Final report (Normal) 8-Zbp-102431:55 Protein Electro, Random Urine Comments: PATIENT WAS FASTINGPERFORMED BY: [employer] Zhcylf5750 [facility] [id number] Please note: SPRCS (Normal) Comments: Protein electrophoresis scan will follow via computer, mail, orcourier delivery. Gamma Globulin, U 27.2 % (Normal) M-Roque, % Not Observed % (Normal) Beta Globulin, U 31.3 % (Normal) Oxgfx-6-Arbyjrch, U 3.2 % (Normal) Tthxu-2-Cnsylbdn, U 15.8 % (Normal) Albumin, U 22.6 % (Normal) Protein,Total,Urine 13.6 mg/dL (Normal) Range: 0.0-15.0 1-Sza-815021:55 Protein Electro.,S Comments: PATIENT WAS FASTINGPERFORMED BY: SIRION BIOTECHBronson Lakeview Hospital6370 [facility] [id number] A/G Ratio 1.8 (Normal) Range: 0.7-2.0 Please note: SPRCS (Normal) Comments: Protein electrophoresis scan will follow via computer, mail, orcourier delivery. Gamma Globulin 0.6 g/dL (Normal) Range: 0.5-1.6 Globulin, Total 2.4 g/dL (Normal) Range: 2.0-4.5 M-Roque Not Observed g/dL (Normal) Trcaq-2-Qdnfyxgb 0.2 g/dL (Normal) Range: 0.1-0.4 Nxyei-3-Ayeomgue 0.6 g/dL (Normal) Range: 0.4-1.2 Beta Globulin 1.0 g/dL (Normal) Range: 0.6-1.3 Albumin 4.2 g/dL (Normal) Range: 3.2-5.6 6-Ypu-436297:55 TSH (16578) Comments: PATIENT WAS FASTINGPERFORMED BY: [facility] Xqeuqf4441 [facility] [id number] TSH 2.610 {uIU/mL} (Normal) Range: 0.450-4.500 :55 CBC WITH MANUAL DIFF (26423) Comments: PATIENT WAS FASTINGPERFORMED BY: LabCoSt. Joseph's Wayne HospitalRnrpnn9789 [facility] [id number] Immature Grans (Abs) 0.0 {x10E3/uL} (Normal) Range: [...] 3.77-5.28 WBC 5.2 {x10E3/uL} (Normal) Range: 3.4-10.8 9-Ybw-845490:55 METABOLIC PANEL, COMPREHENSIVE Comments: PATIENT WAS FASTINGPERFORMED BY: LabCoSt. Joseph's Wayne HospitalRobzqp8995 [facility] [id number] (56871) ALT (SGPT) 36 [iU]/L (Abnormal) Range: 0-32 [...] Glucose, Serum 88 mg/dL (Normal) Range: 65-99 3-Wsl-493360:55 LIPID PANEL (42112) Comments: PATIENT WAS FASTINGPERFORMED BY: [employer] Qtmqhq7711 [facility] [id number] LDL/HDL Ratio 1.7 {ratio_units} (Normal) Range: 0.0-3.2 LDL Cholesterol Calc 138 mg/dL (Abnormal) Range: 0-99 VLDL Cholesterol Sumeet 19 mg/dL (Normal) Range: 5-40 Cholesterol, Total 240 mg/dL (Abnormal) Range: 100-199 HDL Cholesterol 83 mg/dL (Normal) Comments: According to ATP-III Guidelines, HDL-C >59 mg/dL is considered anegative risk factor for CHD. Triglycerides 97 mg/dL (Normal) Range: 0-149 :30 HgA1C , Office (74372) HgA1C , Office 5.6 % (Normal) Range: 4.6 - 7.1 :35 CALCIFEDIOL (06539) Comments: PATIENT WAS FASTINGPERFORMED BY: [employer] Kidfhc1533 [facility] [id number] Vitamin D, 25-Hydroxy 33.8 ng/mL (Normal) Range: 30.0-100.0 Comments: Vitamin D deficiency has been defined by the Bonner ofMedicine and an Endocrine Society practice guideline as alevel of serum 25-OH vitamin D less than 20 ng/mL (1,2).The Endocrine Society went on to further define vitamin Dinsufficiency as a level between 21 and 29 ng/mL (2).1. IOM ([place]ner of Medicine). 2010. Dietary reference intakes for calcium and D. [place]: The National Academies Press.2. Hannah MF, Hilda [place], Maximiliano-Tan FREED, et al. Evaluation, treatment, and prevention of vitamin D deficiency: an Endocrine Society clinical practice guideline. JCEM. 2010; 96(7):1911-30. :35 CBC with manual diff Comments: PATIENT WAS FASTINGPERFORMED BY: SIRION BIOTECHSsm Health Care Zymess8379 [facility] [id number] Information: [id number] (82484) Immature Grans (Abs) 0.0 {x10E3/uL} (Normal) Range: [...] in the reference population. :35 Lipid Panel (91828) Comments: PATIENT WAS FASTINGPERFORMED BY: [employer]6370 [facility] [id number] LDL/HDL Ratio 1.3 {ratio_units} (Normal) Range: 0.0-3.2 [...] Panel, Comprehensive Comments: PATIENT WAS FASTINGPERFORMED BY: [employer]6370 [facility] [id number] (76258) ALT (SGPT) 26 [iU]/L (Normal) Range: 0-32 [...] Glucose, Serum 95 mg/dL (Normal) Range: 65-99 49-Tng-542279:17 Protein Electro, Random Urine Comments: PATIENT NOT FASTINGPERFORMED BY: [employer]6370 [facility] [id number] Gamma Globulin, U 33.0 % (Normal) M-Roque, % Not Observed % (Normal) Please note: SPRCS (Normal) Comments: Protein electrophoresis scan will follow via computer, mail, orcourier delivery. Nqeuw-8-Wumpiodt, U 12.2 % (Normal) Beta Globulin, U 27.5 % (Normal) Zgtrt-1-Dcbppxyb, U 2.3 % (Normal) Albumin, U 25.0 % (Normal) Protein,Total,Urine 4.6 mg/dL (Normal) Range: 0.0-15.0 :17 Protein Electro.,S Comments: PATIENT NOT FASTINGPERFORMED BY: [employer]6370 [facility]UNC [facility] [id number] A/G Ratio 1.5 (Normal) Range: 0.7-2.0 Please note: SPRCS (Normal) Comments: Protein electrophoresis scan will follow via computer, mail, orcourier delivery. Globulin, Total 2.6 g/dL (Normal) Range: 2.0-4.5 M-Roque Not Observed g/dL (Normal) Gamma Globulin 0.7 g/dL (Normal) Range: 0.5-1.6 Xuvlw-7-Ddzypptw 0.7 g/dL (Normal) Range: 0.4-1.2 Beta Globulin 1.0 g/dL (Normal) Range: 0.6-1.3 Bemhl-7-Lzhqsqgt 0.2 g/dL (Normal) Range: 0.1-0.4 Albumin 4.0 g/dL (Normal) Range: 3.2-5.6 Protein, Total, Serum 6.6 g/dL (Normal) Range: 6.0-8.5 25-Ifh-970817:17 PHOSPHORUS (48542) Comments: PATIENT NOT FASTINGPERFORMED BY: [facility] Pqviff4996 [address] [facility] [place] [id number] Phosphorus, Serum 3.6 mg/dL (Normal) Range: 2.5-4.5 03-Exz-402213:17 PARATHORMONE (23376) Comments: PATIENT NOT FASTINGPERFORMED BY: CB [facility] Eixiit2445 [address] [facility] [place] [id number] PTH, Intact 17 pg/mL (Normal) Range: 15-65 14-Bzw-023350:17 TSH (24092) Comments: PATIENT NOT FASTINGPERFORMED BY: [facility] Nymtam8541 [address] [facility] [place] [id number] TSH 2.130 {uIU/mL} (Normal) Range: 0.450-4.500 45-Imz-156905:17 VITAMIN B-12 (CYANOCOBALAMIN) Comments: PATIENT NOT FASTINGPERFORMED BY: CB [facility] Gjfcjk3351 [address] [facility] [place] [id number] (02741) Vitamin B12 886 pg/mL (Normal) Range: 211-946 11-Wym-753506:54 CHEST WITH CONTRAST Radiology Report See Note [...] Hathaway M.D.March 22, 2013 at 1:20:07 PM [id number] Signed GP/GP If you are the referring physician and would like to consult with theradiologist who provided this interpretation, please contact Leslye Escobedo at [phone]. If this radiologist is unavailable, steph hensley be directed to another radiologist to assist. If you are a patient with a question regarding this report, pleasecontactyour referring physician directly. Professional Interpretation Provided By: [employer], Phone , These documents contain legally protected [...] 03/22/13 1323 Sign by: Yousif Hathaway MD 9-Pbs-985911:31 Calcium, 24Hr Urine Comments: PERFORMED BY: [facility]6370 [facility] [id number] Information: 03/07@220AM 03/08@220AM Calcium, Urine 24hr 173.8 {mg/24_hr} (Normal) Range: 100.0-300.0 Calcium, Urine 15.8 mg/dL (Normal) 9-Emk-082962:23 CULTURE, SPUTUM (69521) Comments: PATIENT NOT FASTINGPERFORMED BY: LabCoSt. Joseph's Wayne HospitalXxecmb6863 [facility] [id number] Information: SRC:PAYTON [id number] Result 1 RRF (Normal) Comments: Routine respiratory trip Lower Respiratory Culture Final report (Normal) 73-Ijc-252983:26 DEXA BONE DENSITY STUDY (HP) Radiology Report [...] Hathaway M.D.January 21, 2013 at 8:47:25 AM [id number] Signed GP/GP If you are the referring physic elliott and would like to consult with theradiologist who provided this interpretation, please contact Leslye Escobedo at [phone]. If this radiologist is unavailable, youwill be directed to [facility] ther radiologist to assist. If you are a patient with a question regarding this report, pleasecontactyour referring physician directly. Professional Interpretation Provided By: [employer], Phone , These documents contain legally protected [...] C difficile Toxins Positive Comments: PERFORMED BY: [facility]6370 [facility] [id number] Information: SRC:ST 13:41 A+B, EIA (Abnormal) :38 Urinalysis, Office (79947) UA - BILIRUBIN Negative (Normal) UA - [...] Toxins A+B, Positive (Abnormal) Comments: PERFORMED BY: LabCoSt. [facility] HospitalLlwkhw7863 [facility] [id number] Information: SRC:ST 56 EIA :0 CDIF See Note (Normal) Comments: COPY OF REPORT SENT TO INFECTION CONTROL 12/06/12 143[facility]XtreamFLAG[facility].RESULTS CALLED TO OFFICE TO JACOBO12/06/12 [...] OF REPORT SENT TO INFECTION CONTROL 12/06/12 143[employer].RESULTS CALLED TO OFFICE TO JACOBO12/06/12 LIZBETH MENEZES.REPORT [...] Cyclospora, or Microspo ridia. TESTING PERFORMED AT [facility]. ORIGINAL REPORT ON FILE IN LAB CONTAINS ADDITIONAL TEST SITE INFORMATION. OVA/ PARASITES EXAM NO OVA, CYSTS, OR PARASITES FOUND. : STOB See Note (Abnormal) Comments: COPY OF REPORT SENT TO INFECTION CONTROL 12/06/12 1432SMOBRIDGE.RESULTS CALLED TO DR.FAST JOSEPH TO NitoQHRUAHF87/29/13 LIZBETH MENEZES.REPORT READ BACK BY SAME . Comments: OCCULT BLOOD POSITIVE : WBCST See Note (Abnormal) Comments: COPY OF REPORT SENT TO INFECTION CONTROL 12/06/12 1432SOSNIKOLAS.RESULTS CALLED TO DR.FAST JOSEPH TO JACOBO12/06/12 LIZBETH MENEZES.REPORT READ BACK BY SAME . Comments: FECAL WBC LACTOFERRIN Positive: Fecal WBC Lactoferrin present 45-Btq-287893:00 MICROALBUMIN: CREATININE RATIO Comments: PATIENT WAS FASTINGPERFORMED BY: SIRION BIOTECHBronson Lakeview Hospital6370 [facility] [id number] (28466) AND (54995) Creatinine, Urine 144.4 mg/dL (Normal) Range: 15.0-278.0 Microalb/Creat Ratio 4.2 {mg/g_creat} (Normal) Range: 0.0-30.0 Microalbumin, Urine 6.0 ug/mL (Normal) Range: 0.0-17.0 95-Bvp-946771:00 LIPID PANEL (24471) Comments: PATIENT WAS FASTINGPERFORMED BY: InCarda TherapeuticsSt. Joseph's Wayne HospitalPdljzu1565 [facility] [id number] LDL/HDL Ratio 1.3 {ratio_units} (Normal) Range: 0.0-3.2 HDL Cholesterol 87 mg/dL (Normal) Comments: According to ATP-III Guidelines, HDL-C >59 mg/dL is considered anegative risk factor for CHD. LDL Cholesterol Calc 116 mg/dL (Abnormal) Range: 0-99 VLDL Cholesterol Sumeet 24 mg/dL (Normal) Range: 5-40 Cholesterol, Total 227 mg/dL (Abnormal) Range: 100-199 Triglycerides 122 mg/dL (Normal) Range: 0-149 60-Guh-314165:00 CBC WITH MANUAL DIFF Comments: PATIENT WAS FASTINGPERFORMED BY: LabCoSt. Joseph's Wayne HospitalYrvdfa2141 [facility] [id number] Information: [id number] (42289) Immature Grans (Abs) 0.0 {x10E3/uL} (Normal) Range: [...] 3.77-5.28 WBC 4.6 {x10E3/uL} (Normal) Range: 4.0-10.5 02-Juh-063588:00 METABOLIC PANEL, COMPREHENSIVE Comments: PATIENT WAS FASTINGPERFORMED BY: BERE Bambuser [facility] [id number] (21586) ALT (SGPT) 26 [iU]/L (Normal) Range: 0-32 [...] Glucose, Serum 93 mg/dL (Normal) Range: 65-99 78-Rgu-958130:00 Vitamin D Hydroxy (15809) Comments: PATIENT WAS FASTINGPERFORMED BY: Spreecast RoadDublin [place] [id number] Vitamin D, 25-Hydroxy 34.1 ng/mL (Normal) Range: 30.0-100.0 Comments: Vitamin D deficiency has been defined by the Bonner ofMedicine and an Endocrine Society practice guideline as alevel of serum 25-OH vitamin D less than 20 ng/mL (1,2).The Endocrine Society went on to further define vitamin Dinsufficiency as a level between 21 and 29 ng/mL (2).1. IOM ([place]ner of Medicine). 2010. Dietary reference intakes for calcium and D. [place]: The National Academies Press.2. Hannah MF, Hilda SONG, Cindy FREED, et al. Evaluation, treatment, and prevention of vitamin D deficiency: an Endocrine Society clinical practice guideline. JCEM. 2010; 96(7):1911-30. 50-Jxe-997609:29 URINE WON CULTURE-OSMAR COL Comments: PATIENT NOT FASTINGPERFORMED BY: LabSsm [facility] Liwlhl5467 [facility] [id number] Information: SRC: [id number] COUNT (87826) Result 1 CNSNSS (Normal) Comments: Coagulase negative [...] S Urine Final report Culture,Comprehensi (Normal) ve 86-Cwn-015207:39 Urinalysis, Office (43916) UA - BILIRUBIN Negative (Normal) UA - BLOOD Negative (Normal) UA - GLUCOSE Negative (Normal) UA - KETONES Negative mg/dL (Normal) UA - LEUKOCYTE ESTERASE Trace (Normal) UA - NITRITE Negative (Normal) UA - PH 8.0 (Normal) UA - PROTEIN Trace mg/dL (Normal) UA - SPECIFIC GRAVITY 1.020 (Normal) URINE UROBILINGN OSMAR TIMED Normal mg/dL (Normal) 84-Fzk-183261:27 HgA1C , Office (98446) HgA1C , Office 5.9 % (Normal) Range: 4.6 - 7.1 6-Elh-577618:45 CULTURE, SPUTUM (87854) Comments: PATIENT NOT FASTINGPERFORMED BY: Fetch MD [employer] LabsMissouri Southern Healthcare [id number] Information: SRC:[facility] [id number] Result 1 RRF (Normal) Comments: Routine respiratory trip Lower Respiratory Culture Final report (Normal) 6-Eab-536068:41 Urinalysis, Office (53047) UA - BILIRUBIN Negative (Normal) UA - BLOOD Negative (Normal) UA - GLUCOSE Negative (Normal) UA - KETONES Negative mg/dL (Normal) UA - LEUKOCYTE ESTERASE Trace (Normal) UA - NITRITE Negative (Normal) UA - PH 7.0 (Normal) UA - PROTEIN Negative mg/dL (Normal) UA - SPECIFIC GRAVITY 1.020 (Normal) URINE UROBILINGN OSMAR TIMED Normal mg/dL (Normal) 69-Oas-604106:29 Urinalysis, Office (85959) UA - BILIRUBIN Negative (Normal) UA - BLOOD Hemolyzed Large (Normal) UA - GLUCOSE Negative (Normal) UA - KETONES Negative mg/dL (Normal) UA - LEUKOCYTE ESTERASE Trace (Normal) UA - NITRITE Negative (Normal) UA - PH 6.0 (Normal) Comments: 5.5 UA - PROTEIN Negative mg/dL (Normal) UA - SPECIFIC GRAVITY 1.025 (Normal) Comments: >=1.030 URINE UROBILINGN OSMAR TIMED Normal mg/dL (Normal) 80-Zhg-874762:59 URINE WON CULTURE-OSMAR COL Comments: PATIENT NOT FASTINGPERFORMED BY: SIRION BIOTECHSsm Health Care Oteqei2886 [facility] [id number] Information: SRC: [id number] COUNT (91212) Result 1 Alpha streptococcus Comments: 900 Colonies/mLSusceptibility not normally performed on this organism. (Normal) Urine Final report (Normal) Culture,Comprehensi ve 05-Kcq-218672:41 Urinalysis, Office (07402) UA - NITRITE Negative (Normal) URINE UROBILINGN OSMAR TIMED 2 mg/dL (Normal) UA - PROTEIN Trace mg/dL (Normal) UA - PH 7.0 (Normal) UA - BLOOD Hemolyzed Large (Normal) UA - SPECIFIC GRAVITY 1.025 (Normal) UA - KETONES Negative mg/dL (Normal) UA - BILIRUBIN Negative (Normal) UA - GLUCOSE Negative (Normal) 81-Cmw-25817:00 CHEST, PA AND LATERAL Radiology Report See [...] change. Signed:Yousif Hathaway M.D.July at 1:40:15 PM [id number] Signed GP/GP If you are the referring physician and would like to consult with theradiologist who provided this interpretation, please contact Yousif Hathaway M.D. at [phone]. If this radiologist is unavailable, youwill be directed to another radiologist to assist. If you are a patient with a question regarding this report, pleasecontactyour yeny butcher physician directly. Professional Interpretation Provided By: [employer], Phone , These documents contain legally protected [...] 07/28/12 1403 Sign by: Yousif Hathaway MD 07-Qql-559647:27 CBC WITH MANUAL DIFF Comments: PATIENT WAS FASTINGPERFORMED BY: LabBr[facility] Hospital6370 [facility] [id number] Information: [id number] (80373) Immature Grans (Abs) 0.0 {x10E3/uL} (Normal) Range: [...] 3.77-5.28 WBC 5.9 {x10E3/uL} (Normal) Range: 4.0-10.5 36-Rdh-178523:27 METABOLIC PANEL, COMPREHENSIVE Comments: PATIENT WAS FASTINGPERFORMED BY: LabCoSt. Joseph's Wayne HospitalZxkqku5312 [facility] [id number] (62639) ALT (SGPT) 16 [iU]/L (Normal) Range: 0-32 [...] Glucose, Serum 86 mg/dL (Normal) Range: 65-99 1-Juz-026570:09 HgA1C , Office (27701) HgA1C , Office 6.0 % (Normal) Range: 4.6 - 7.1 :27 HEPATIC FUNCTION PANEL Comments: PATIENT WAS FASTINGPERFORMED BY: [place] 4413170 [facility] [id number] (61846) Bilirubin, Direct 0.09 mg/dL (Normal) Range: 0.00-0.40 :27 LIPID PANEL (74277) Comments: PATIENT WAS FASTINGPERFORMED BY: [place] 4413170 [facility] [id number] LDL/HDL Ratio 1.8 {ratio_units} (Normal) Range: 0.0-3.2 [...] Microscopic Examination Comments: PATIENT WAS FASTINGPERFORMED BY: [place] 4413170 [facility] [id number] Bacteria None seen (Normal) Mucus Threads Present (Normal) Epithelial Cells (non renal) 0-10 {/hpf} (Normal) Range: 0 - 10 RBC 0-3 {/hpf} (Normal) Range: 0 - 3 WBC 0-5 {/hpf} (Normal) Range: 0 - 5 :51 LIPID PANEL (00669) Comments: PATIENT WAS FASTINGPERFORMED BY: [place] 4413170 [facility] [id number]; f/u 06/08/12 LDL/HDL Ratio 1.4 {ratio_units} (Normal) [...] B-12 (CYANOCOBALAMIN) Comments: PATIENT WAS FASTINGPERFORMED BY: Fetch MD Rsittp7394 [facility]in [place] [id number] (75219) Vitamin B12 702 pg/mL (Normal) Range: 211-946 :51 Vitamin D Hydroxy (55023) Comments: PATIENT WAS FASTINGPERFORMED BY: LabHarpoon Medical Kwofwu6589 [address] [facility] Hospitalblin [place] [id number] Vitamin D, 25-Hydroxy 43.0 ng/mL (Normal) Range: 30.0-100.0 Comments: Vitamin D deficiency has been defined by the Bonner ofDayton Va Medical Centercine and an Endocrine Society practice guideline as alevel of serum 25-OH vitamin D less than 20 ng/mL (1,2).The Endocrine Society went on to further define vitamin Dinsufficiency as a level between 21 and 29 ng/mL (2).1. IOM ([place] of Medicine). 2010. Dietary reference intakes for calcium and D. [place]: The National Academies Press.2. Hannah MF, Hilda [place], Cindy FREED, et al. Evaluation, treatment, and prevention of vitamin D deficiency: an Endocrine Society clinical practice guideline. JCEM. 2010; 96(7):1911-30. :51 URINALYSIS, W/ MICRO (39100) Comments: PATIENT WAS FASTINGPERFORMED BY: [facility] Gcdayg5586 [facility] [id number] Microscopic Examination See below: (Normal) Microscopic Examination MICRON (Normal) Comments: Microscopic follows if indicated. Nitrite, Urine Negative (Normal) Urobilinogen,Semi-Qn 0.2 mg/dL (Normal) Range: 0.0-1.9 Bilirubin Negative (Normal) Occult Blood Negative (Normal) Ketones Negative (Normal) Glucose Negative (Normal) Protein Negative (Normal) WBC Esterase Negative (Normal) Appearance Clear (Normal) Urine-Color Yellow (Normal) pH 7.0 (Normal) Range: 5.0-7.5 Specific [place] 1.019 (Normal) Range: 1.005-1.030 59-Wzj-800595:51 METABOLIC PANEL, Comments: PATIENT WAS FASTINGPERFORMED BY: InCarda TherapeuticsSt. Joseph's Wayne HospitalHgnmrk3154 [facility] [id number] Information: [id number] COMPREHENSIVE (74361) ALT (SGPT) 17 [iU]/L (Normal) Range: 0-40 [...] Glucose, Serum 95 mg/dL (Normal) Range: 65-99 86-Jwt-937704:51 TSH (25411) Comments: PATIENT WAS FASTINGPERFORMED BY: LabCoSt. Joseph's Wayne HospitalKbawcd1950 [facility] [id number] TSH 1.860 {uIU/mL} (Normal) Range: 0.450-4.500 17-Czh-557048:31 Blood Glucose , Office (27444) Blood Glucose , Office 119 (Normal) 85-Nak-461801:22 FECAL OCCULT- Tubes sent home (91285) FECAL OCCULT HGB ASSAY, QUAL, 1-3 SIMULTANEOU Negative (Normal) :56 CBC WITH MANUAL DIFF Comments: PATIENT WAS FASTINGPERFORMED BY: LabCoSt. Joseph's Wayne HospitalWlovgx4212 [facility] [id number] Information: [id number] (50550) Immature Grans (Abs) 0.0 {x10E3/uL} (Normal) Range: [...] {x10E3/uL} (Normal) Range: 4.0-10.5 :56 RETICULOCYTE COUNT [facility] (55287) Comments: PATIENT WAS FASTINGPERFORMED BY: InCarda TherapeuticsSt. Joseph's Wayne HospitalLlwopx6204 [facility] [id number] Reticulocyte Count 0.9 % (Normal) Range: 0.5-3.0 :56 IRON BINDING CAPACITY (TIBC) Comments: PATIENT WAS FASTINGPERFORMED BY: InCarda TherapeuticsSt. Joseph's Wayne HospitalAyacwn7555 [facility] [id number] (86049) Iron Saturation 12 % (Abnormal) Range: 15-55 Iron, Serum 47 ug/dL (Normal) Range: 35-155 UIBC 342 ug/dL (Normal) Range: 150-375 Iron Bind.Cap.(TIBC) 389 ug/dL (Normal) Range: 250-450 :56 FERRITIN (01889) Comments: PATIENT WAS FASTINGPERFORMED BY: InCarda TherapeuticsSt. Joseph's Wayne HospitalLxgymc0162 [facility] [id number] Ferritin, Serum 10 ng/mL (Abnormal) Range: 13-150 22-Nko-409954:13 HgA1C , Office (79736) HgA1C , Office 5.8 % (Normal) Range: 4.6 - 7.1 :13 Blood Glucose , Office (41235) Blood Glucose , Office 116 (Normal) 8-Ssf-132598:00 CBC WITH MANUAL DIFF Comments: PATIENT WAS FASTINGPERFORMED BY: SIRION BIOTECHBronson Lakeview Hospital6370 [facility] [id number] Information: [id number] (57220) Immature Grans (Abs) 0.0 {x10E3/uL} (Normal) Range: [...] 3.80-5.10 WBC 3.6 {x10E3/uL} (Abnormal) Range: 4.0-10.5 4-Bce-775988:00 MICROALBUMIN: CREATININE RATIO Comments: PATIENT WAS FASTINGPERFORMED BY: LabCoSt. Joseph's Wayne HospitalCyetce7910 [facility] [id number] (82643) AND (93891) Microalb/Creat Ratio 3.8 {mg/g_creat} (Normal) Range: 0.0-30.0 Creatinine, Urine 200.2 mg/dL (Normal) Range: 15.0-278.0 Microalbumin, Urine 7.7 ug/mL (Normal) Range: 0.0-17.0 0-Joj-962350:00 METABOLIC PANEL, COMPREHENSIVE Comments: PATIENT WAS FASTINGPERFORMED BY: [employer]6370 [facility] [id number] (17494) ALT (SGPT) 12 [iU]/L (Normal) Range: 0-40 [...] Glucose, Serum 96 mg/dL (Normal) Range: 65-99 8-Zca-403177:00 LIPID PANEL (03439) Comments: PATIENT WAS FASTINGPERFORMED BY: [employer]6370 [facility] [id number] LDL/HDL Ratio 1.3 {ratio_units} (Normal) Range: 0.0-3.2 LDL Cholesterol Calc 99 mg/dL (Normal) Range: 0-99 VLDL Cholesterol Sumeet 26 mg/dL (Normal) Range: 5-40 HDL Cholesterol 75 mg/dL (Normal) Comments: According to ATP-III Guidelines, HDL-C >59 mg/dL is considered anegative risk factor for CHD. Triglycerides 129 mg/dL (Normal) Range: 0-149 Cholesterol, Total 200 mg/dL (Abnormal) Range: 100-199 77-Lpc-751959:12 HgA1C , Office (18816) HgA1C , Office 6.1 % (Normal) Range: 4.6 - 7.1 19-Fkx-419294:12 Blood Glucose , Office (16843) Blood Glucose , Office 100 (Normal) :46 Anaerobic and Aerobic Comments: PERFORMED BY: LabBronson [facility] Hospital6370 [facility] [id number] Information: SRC:FL LEFT ANKLE Culture Result 1 NG36 (Normal) Comments: No growth in 36 - 48 hours. Aerobic Culture Final report (Normal) Result 1 NANG72 (Normal) Comments: No anaerobic growth in 72 hours. Anaerobic Culture Final report (Normal) 79-Qie-314885:23 CHEST, PA AND LATERAL Radiology Report See [...] _ Yousif Hathaway MD :57 LIPID PANEL (89747) Comments: PATIENT WAS FASTINGPERFORMED BY: InCarda TherapeuticsSt. Joseph's Wayne HospitalSrswri2981 [facility] [id number] LDL/HDL Ratio 1.3 {ratio_units} (Normal) Range: 0.0-3.2 [...] PANEL, COMPREHENSIVE Comments: PATIENT WAS FASTINGPERFORMED BY: [employer] Hxovma2873 [facility] [id number] (82719) ALT (SGPT) 18 [iU]/L (Normal) Range: 0-40 [...] Glucose, Serum 98 mg/dL (Normal) Range: 65-99 87-Sae-611722:57 CBC WITH MANUAL DIFF Comments: PATIENT WAS FASTINGPERFORMED BY: LabCoSt. Joseph's Wayne HospitalAhcfld2239 [facility] [id number] Information: [id number] (38993) Immature Grans (Abs) 0.0 {x10E3/uL} (Normal) Range: [...] (Normal) Range: 4.0-10.5 :57 HgA1C , Office (83396) HgA1C , Office 5.9 % (Normal) Range: 4.6 - 7.1 :57 Blood Glucose , Office (91050) Blood Glucose , Office 94 (Normal) :46 DEXA BONE DENSITY STUDY (HP) Radiology Report See Note (Normal) Comments: CLINICAL:Female, 65 years old. Postmenopausal with past history of steroid use,family history and bone fracture. EXAMINATION:DUAL ENERGY X-RAY ABSORPTIOMETRY / DEXA. TECHNIQUE:Bone Mineral Density (BMD ) measurements of lumbar spine and bilateralhipswere obtained using a [employer] scanner.. COMPARISON:Prior bone density of November 27, [...] Merida on 11/28/102031 Sign by: Erna Merida 14-Eux-983936:06 Vitamin D Hydroxy (67359) Comments: PATIENT WAS FASTINGPERFORMED BY: [employer]6370 [address] [facility] [id number] Vitamin D, 25-Hydroxy 51.1 ng/mL (Normal) Range: 32.0-100.0 Comments: Recent studies consider the lower limit of 32.0 ng/mL to be athreshold for optimal health.Fred VILLARREAL. J Nutr. 2004;135(2):317-22. 47-Uuq-041595:06 LIPID PANEL (12475) Comments: PATIENT WAS FASTINGPERFORMED BY: [employer]6370 [address] [facility] [id number] LDL Cholesterol Calc 66 mg/dL (Normal) Range: 0-99 LDL/HDL Ratio 0.8 {ratio_units} (Normal) Range: 0.0-3.2 VLDL Cholesterol Sumeet 20 mg/dL (Normal) Range: 5-40 HDL Cholesterol 88 mg/dL (Normal) Comments: According to ATP-III Guidelines, HDL-C >59 mg/dL is considered anegative risk factor for CHD. Cholesterol, Total 174 mg/dL (Normal) Range: 100-199 Triglycerides 99 mg/dL (Normal) Range: 0-149 76-Ajg-322491:06 CBC WITH MANUAL DIFF Comments: PATIENT WAS FASTINGPERFORMED BY: LabCoSt. Joseph's Wayne HospitalAnegdd1513 [facility] [id number] Information: [id number] (00132) Immature Grans (Abs) 0.0 {x10E3/uL} (Normal) Range: [...] 3.80-5.10 WBC 4.8 {x10E3/uL} (Normal) Range: 4.0-10.5 71-Awn-928490:06 METABOLIC PANEL, COMPREHENSIVE Comments: PATIENT WAS FASTINGPERFORMED BY: BERE [employer]en70 [facility] [id number] (77878) ALT (SGPT) 25 [iU]/L (Normal) Range: 0-40 [...] Glucose, Serum 85 mg/dL (Normal) Range: 65-99 80-Elu-615820:06 MICROALBUMIN: CREATININE RATIO Comments: PATIENT WAS FASTINGPERFORMED BY: [employer]en70 [facility] [id number] (63247) AND (18996) Creatinine, Urine 220.5 mg/dL (Normal) Range: 15.0-278.0 Microalb/Creat Ratio 5.4 {mg/g_creat} (Normal) Range: 0.0-30.0 Microalbumin, Urine 12.0 ug/mL (Normal) Range: 0.0-17.0 99-Iig-092574:10 HgA1C , Office (82953) HgA1C , Office 5.8 % (Normal) Range: 4.6 - 7.1 01-Jlx-017564:10 Blood Glucose , Office (62681) Blood Glucose , Office 107 (Normal) 3-Sdd-229659:23 Microscopic Examination Comments: PATIENT NOT FASTINGPERFORMED BY: InCarda TherapeuticsSt. Joseph's Wayne HospitalOdrnhr8944 [facility] [id number] Bacteria Few (Normal) Mucus Threads Present (Normal) Epithelial Cells (non renal) 0-10 {/hpf} (Normal) Range: 0 - 10 RBC 0-3 {/hpf} (Normal) Range: 0 - 3 WBC 0-5 {/hpf} (Normal) Range: 0 - 5 :23 VITAMIN B-12 (CYANOCOBALAMIN) Comments: PATIENT NOT FASTINGPERFORMED BY: SIRION BIOTECHBronson Lakeview Hospital6370 [facility] [id number] (50251) Vitamin B12 685 pg/mL (Normal) Range: 211-946 0-Uaw-966876:23 URINALYSIS, W/ MICRO (23206) Comments: PATIENT NOT FASTINGPERFORMED BY: SIRION BIOTECHAdrienne Ville 7407070 [facility] [id number] Microscopic Examination See below: (Normal) Microscopic Examination MICRON (Normal) Comments: Microscopic follows if indicated. Nitrite, Urine Negative (Normal) Urobilinogen,Semi-Qn 0.2 mg/dL (Normal) Range: 0.0-1.9 Bilirubin Negative (Normal) Appearance Clear (Normal) Glucose Negative (Normal) Ketones Negative (Normal) Occult Blood Negative (Normal) Protein Negative (Normal) WBC Esterase Negative (Normal) pH 6.5 (Normal) Range: 5.0-7.5 Urine-Color Yellow (Normal) Specific [place] 1.020 (Normal) Range: 1.005-1.030 :23 TSH (49097) Comments: PATIENT NOT FASTINGPERFORMED BY: [facility]6370 [facility] [id number] TSH 1.630 {uIU/mL} (Normal) Range: 0.450-4.500 :23 CBC WITH MANUAL DIFF Comments: PATIENT NOT FASTINGPERFORMED BY: [facility]6370 [facility] [id number] Information: [id number] (35133) Immature Grans (Abs) 0.0 {x10E3/uL} (Normal) Range: [...] (Normal) Range: 4.0-10.5 :25 HgA1C , Office (93755) HgA1C , Office 5.8 % (Normal) Range: 4.6 - 7.1 :25 Blood Glucose , Office (75710) Blood Glucose , Office 106 (Normal) :35 Rapid Strep Test, Office (72888) Rapid Strep Test, Office Negative (Normal) :41 HEPATIC FUNCTION PANEL Comments: PATIENT WAS FASTINGPERFORMED BY: [employer] Gpedfy5097 [facility] [id number] Information: [id number] (81496) ALT (SGPT) 19 [iU]/L (Normal) Range: 0-40 Alkaline Phosphatase, S 63 [iU]/L (Normal) Range: 25-165 AST (SGOT) 22 [iU]/L (Normal) Range: 0-40 Albumin, Serum 4.5 g/dL (Normal) Range: 3.6-4.8 Bilirubin, Direct 0.13 mg/dL (Normal) Range: 0.00-0.40 Bilirubin, Total 0.4 mg/dL (Normal) Range: 0.0-1.2 Protein, Total, Serum 6.2 g/dL (Normal) Range: 6.0-8.5 :41 LIPID PANEL (07622) Comments: PATIENT WAS FASTINGPERFORMED BY: [employer] Eicktb3484 [facility] [id number] LDL/HDL Ratio 1.1 {ratio_units} (Normal) Range: 0.0-3.2 HDL Cholesterol 66 mg/dL (Normal) Comments: According to ATP-III Guidelines, HDL-C >59 mg/dL is considered anegative risk factor for CHD. LDL Cholesterol Calc 75 mg/dL (Normal) Range: 0-99 Triglycerides 78 mg/dL (Normal) Range: 0-149 VLDL Cholesterol Sumeet 16 mg/dL (Normal) Range: 5-40 Cholesterol, Total 157 mg/dL (Normal) Range: 100-199 02-Faa-189744:41 Vitamin D Hydroxy (68786) Comments: PATIENT WAS FASTINGPERFORMED BY: LabCoSt. Joseph's Wayne HospitalEmpjdg2090 [facility] [id number] Vitamin D, 25-Hydroxy 46.3 ng/mL (Normal) Range: 32.0-100.0 Comments: Recent studies consider the lower limit of 32.0 ng/mL to be athreshold for optimal health.Fred VILLARREAL. J Nutr. 2004;135(2):317-22. :54 HgA1C , Office (52014) HgA1C , Office 6.2 % (Normal) Range: 4.6 - 7.1 :54 Blood Glucose , Office (35503) Blood Glucose , Office 91 (Normal) :34 [...] 6.4-8.2 GLU 91 mg/dL (Normal) Range: 70-110 73-Tqs-242168:34 D BILI 0.06 mg/dL (Normal) Range: 0.00-0.30 59-Jfx-178523:34 LIPID HDL 60 mg/dL (Normal) Comments: Reference [...] CHOL 223 mg/dL (Abnormal) Comments: <200 mg/dL Pskjocffo128-764 mg/dL Borderline>240 mg/dL High Risk 47-Xjz-333357:34 MICROALB:CRE UR MALB:CREAT 5.4 {mg/g_CRE} (Normal) MICROALBUMIN,UR 10.9 mg/L (Normal) UR CREAT 199.6 mg/dL (Normal) 52-Ppd-481603:34 VIT D,25 68139 36.2 ng/mL (Normal) Range: 32.0-100.0 Comments: Recent studies consider the lower limit of 32.0 ng/mL to adan threshold for optimal health.Fred VILLARREAL. J Nutr. 2004;135(2):317-22.Performed at: - [facility] [id number] Director: Roseann Carter MD :28 HgA1C , Office (65373) HgA1C , Office 5.9 % (Normal) Range: 4.6 - 7.1 :28 Blood Glucose , Office (17360) Blood Glucose , Office 103 (Normal) 71-Bya-230394:07 LIPID CHOL 205 mg/dL (Abnormal) Comments: <200 mg/dL Qgpfcxgwt919-343 mg/dL Borderline>240 mg/dL High Risk HDL 76 [...] Range: 6.4-8.2 :27 Blood Glucose , Office (03375) Blood Glucose , Office 97 (Normal) :26 HgA1C , Office (28236) HgA1C , Office 5.6 % (Normal) Range: [...] (Normal) Range: 0.358-3.74 :58 HgA1C , Office (81650) HgA1C , Office 5.6 % (Normal) Range: 4.6 - 7.1 :58 Blood Glucose , Office (51390) Blood Glucose , Office 110 (Normal) :11 [...] T PROT 6.6 g/dL (Normal) Range: 6.4-8.2 01-Ccd-319977:11 LIPID CHOL 179 mg/dL (Normal) Comments: <200 [...] mg/dL VLDL 22 mg/dL (Normal) Range: 5-40 57-Njg-417910:11 PHOS 2.6 mg/dL (Normal) Range: 2.5-4.9 95-Qfm-196142:11 PROT.[id number] ALBUMIN,UR 31.3 % (Normal) WLIIC-9-PRGP,U 1.6 % (Normal) QNWXA-2-KYFC,U 13.0 % (Normal) BETA GLOB,U 40.1 % (Normal) GAMMA GLOB,U 14.0 % (Normal) M-SPIKE,U SeeNote % (Normal) Comments: Result: Not Observed NOTE Comment (Normal) Comments: Protein electrophoresis scan will follow via computer,mail, or timber selector delivery. PROTEIN,UR 10.2 mg/dL (Normal) Range: 0.0-15.0 :11 PTH,[id number] PTH,Intact 28 pg/mL (Normal) Range: 15-65 Comments: Performed At: [facility] [place], [place] [id number] 77-Epg-230916:11 SPE [id number] A/G RATIO 1.7 (Normal) Range: 0.7-2.0 ALBUMIN [...] electrophoresis scan will follow via computer,mail, or timber selector delivery. PROTEIN,TOTAL 6.3 g/dL (Normal) Range: 6.0-8.5 4-Qvm-168730:05 TRANSVAGINAL NON-PREG US () Radiology Report See Note (Normal) Comments: Exam Number: [id number] PELVIC ULTRASOUND HISTORYAbnormal pelvic exam. Transabdominal and transvaginal studies were performed. Highresolution real time sector images were obtained. The paimiut angela is sandra l in size measuring [...] not seen. Reported By: JAVY CASTRO M.D. 4-Pta-280772:51 PELVIC (NON-PREG) (HP) Radiology Report See Note (Normal) Comments: Exam Number: [id number] PELVIC ULTRASOUND HISTORYAbnormal pelvic exam. Transabdominal and transvaginal studies were performed. Highresolution real time sector images were obtained. The paimiut angela is sandra l in size measuring [...] The ovaries are not seen. Reported By: JVAY CASTRO M.D. 31-Ihj-203011:41 Thin prep Pap Comments: Source.............Cervical;EndocervicalLMP / Prev Treat...HZL=[id number]. of containers..01 CYTYC Thin Prep VialPATIENT NOT FASTINGClinical Information: ADD [id number] ([id number]) PERFORMED BY: [employer] [id number] . . (Normal) DIAGNOSIS: SPRCS (Normal) Comments: NEGATIVE FOR INTRAEPITHELIAL LESION AND MALIGNANCY.Satisfactory for evaluation. Endocervical component may not bedistinguished in cases of atrophy.V72.31 ; Routine gynecological examination Lilly Bravo, Head Tennis Coach ([facility]) Note: PAPSMR (Normal) Comments: The Pap smear [...] was performed. . :35 HgA1C , Office (83192) HgA1C , Office 5.5 % (Normal) Range: 4.6 - 7.1 :35 Blood Glucose , Office (87172) Blood Glucose , Office 102 (Normal) :54 [...] 47-70 WBC 4.9 K/mm3 (Normal) Range: 4.4-11.0 4-Yzf-367577:54 COMP METABOLIC A/G 1.2 {RATIO} (Normal) Range: [...] for patient's is the eGFRmultiplied by 1.212. [facility] Laboratory uses the abbreviated Modification of [...] Disease W/O Kidney Disease>/= 90 Stage One Vksdhp84 - 89 Stage Two Suspect Decreased GFR30 [...] {uIU/mL} (Normal) Range: 0.34-4.82 :54 VIT D,25 38388 40.7 ng/mL (Normal) Range: 32.0-100.0 Comments: Recent studies consider the lower limit of 32.0 ng/mL to adan threshold for optimal health.Fred VILLARREAL. J Nutr. 2004;135(2):317-22.Performed At: [address] [id number] 61-Guk-246898:19 DEXA BONE DENSITY STUDY (HP) Radiology Report See Note (Normal) Comments: Exam Number: [id number] BONE DENSITOMETRY HISTORYOsteopenia. TECHNIQUE Bone densitometry of [...] left hip. Reported By: JAVY CASTRO M.D. 14-Fbu-376371:57 KNEE,3 VIEWS (MT) Radiology Report See Note (Normal) Comments: Exam Number: [id number] LEFT KNEE CLINICAL INFORMATIONFall, pain. 3 views [...] seen otherwise. Reported By: SHANELL LOFTON M.D. 05-Ppk-778540:34 Blood Glucose , Office (48482) Blood Glucose , Office 113 (Normal) 97-Fvs-068898:34 HgA1C , Office (48527) HgA1C , Office 5.8 % (Normal) Range: 4.6 - 7.1 47-Pac-771627:19 HEPATIC FUNCTION PANEL Comments: PATIENT WAS FASTINGClinical Information: ADD DRAW FEE [id number] ADD J [id number] PERFORMED BY: BERE InCarda TherapeuticsSt. Joseph's Wayne HospitalZihzkb8592 [facility] [id number] ([id number]) Albumin, Serum 4.6 g/dL (Normal) Range: 3.6-4.8 Alkaline Phosphatase, S 83 [iU]/L (Normal) Range: 25-165 ALT (SGPT) 17 [iU]/L (Normal) Range: 0-40 AST (SGOT) 22 [iU]/L (Normal) Range: 0-40 Bilirubin, Direct 0.12 mg/dL (Normal) Range: 0.00-0.40 Bilirubin, Total 0.5 mg/dL (Normal) Range: 0.1-1.2 Protein, Total, Serum 7.0 g/dL (Normal) Range: 6.0-8.5 :19 LIPID PANEL (91380) Comments: PATIENT WAS FASTINGPERFORMED BY: Limonetik Ugbuaa2898 [facility] [id number] Cholesterol, Total 186 mg/dL (Normal) Range: 100-199 HDL Cholesterol 66 mg/dL (Abnormal) Range: 40-59 Comments: HDL cholesterol values >59 mg/dL are associated with reduced cardiacrisk. LDL Cholesterol Calc 99 mg/dL (Normal) Range: 0-99 LDL/HDL Ratio 1.5 {ratio_units} (Normal) Range: 0.0-3.2 Triglycerides 107 mg/dL (Normal) Range: 0-149 VLDL Cholesterol Sumeet 21 mg/dL (Normal) Range: 5-40 82-Rge-963248:16 HgA1C , Office (88618) HgA1C , Office 5.5 % (Normal) Range: 4.6 - 7.1 72-Ucb-324417:16 Blood Glucose , Office (93731) Blood Glucose , Office 125 (Normal) 67-Aui-153627:03 MICROALBUMIN: CREATININE RATIO Comments: PATIENT WAS FASTINGPERFORMED BY: [employer] [id number] ([id number]) AND (31658) Microalbum.,U,Random 3.8 ug/mL (Normal) Range: 0.0-17.0 53-Fnw-825926:03 HEPATIC FUNCTION PANEL Comments: PATIENT WAS FASTINGClinical Information: ADD DRAW FEE [id number] ADD J 29307 PERFORMED BY: Fetch MDSt. Joseph's Wayne HospitalTehqdf1798 [facility] [id number] ([id number]) Albumin, Serum 4.8 g/dL (Normal) Range: 3.6-4.8 Alkaline Phosphatase, S 77 [iU]/L (Normal) Range: 25-165 ALT (SGPT) 20 [iU]/L (Normal) Range: 0-40 AST (SGOT) 22 [iU]/L (Normal) Range: 0-40 Bilirubin, Direct 0.11 mg/dL (Normal) Range: 0.00-0.40 Bilirubin, Total 0.4 mg/dL (Normal) Range: 0.1-1.2 Protein, Total, Serum 7.0 g/dL (Normal) Range: 6.0-8.5 :03 LIPID PANEL (03759) Comments: PATIENT WAS FASTINGPERFORMED BY: Bambuser [facility] [id number] Cholesterol, Total 205 mg/dL (Abnormal) Range: 100-199 [...] (Normal) Range: 5-40 :53 HgA1C , Office (45563) HgA1C , Office 5.4 % (Normal) Range: 4.6 - 7.1 :52 Blood Glucose , Office (97565) Blood Glucose , Office 96 (Normal) :42 CHEST, PA AND LATERAL Radiology Report See Note (Normal) Comments: Exam Number: [id number] PA AND LATERAL CHEST HISTORY Being done for cough. Cardiac configuration is normal. There are mild emphysematouschanges. No acute infiltrate, effusion, or pneumothorax isidenti fied. There is spur formation mid dorsal spine. These findingswere all seen on December 10, 2006, and are unchanged. IMPRESSIONNo acute change noted in the lungs. Reported By: CHANEL SANDY M.D. 20-Gxf-476424:32 LIPID PANEL (95850) Comments: PATIENT WAS FASTINGPERFORMED BY: [employer] [facility] [id number] Cholesterol, Total 204 mg/dL (Abnormal) Range: 100-199 [...] Cholesterol Sumeet 25 mg/dL (Normal) Range: 5-40 46-Ypa-090915:32 URINALYSIS W/O MICRO (84285) Comments: PATIENT WAS FASTINGPERFORMED BY: [employer] [facility] [id number] Appearance Clear (Normal) Bilirubin Negative (Normal) Glucose Negative (Normal) Ketones Negative (Normal) Microscopic Examination MICRON (Normal) Comments: Microscopic follows if indicated. Nitrite, Urine Negative (Normal) Occult Blood Negative (Normal) pH 6.5 (Normal) Range: 5.0-7.5 Protein Negative (Normal) Specific [place] 1.019 (Normal) Range: 1.005-1.030 Urine-Color Yellow (Normal) Urobilinogen,Semi-Qn 0.2 mg/dL (Normal) Range: 0.0-1.9 WBC Esterase Negative (Normal) 14-Cbt-651005:32 TSH (06625) Comments: PATIENT WAS FASTINGPERFORMED BY: SimpliFieldCoClicks2Customers70 [facility] [id number] TSH 2.348 {uIU/mL} (Normal) Range: 0.350-5.500 47-Hzx-707789:32 METABOLIC PANEL, COMPREHENSIVE Comments: PATIENT WAS FASTINGPERFORMED BY: LabCoSt. Joseph's Wayne HospitalPrbchr8549 [facility] [id number] ([id number]) A/G Ratio 1.7 (Normal) Range: 1.1-2.5 Albumin, [...] Sodium, Serum 141 mmol/L (Normal) Range: 135-148 10-Urj-377366:32 CBC WITH MANUAL DIFF (28034) Comments: PATIENT WAS FASTINGClinical Information: ADD DRAW FEE 059819 ADD J 99852 PERFORMED BY: LabCoSt. Joseph's Wayne HospitalGimrks5341 [facility] [id number] Baso (Absolute) 0.0 {x10E3/uL} (Normal) Range: 0.0-0.2 [...] Range: 4.0-10.5 :56 Blood Glucose , Office (37272) Blood Glucose , Office 84 (Normal) :56 HgA1C , Office (60714) HgA1C , Office 5.4 % (Normal) Range: 4.6 - 7.1 :12 Blood Glucose , Office (50474) Comments: [facility] Blood Glucose , Office 94 (Normal) :12 HgA1C , Office (13941) Comments: [facility] HgA1C , Office 5.3 % (Normal) [...] (Normal) Range: 4.4-11.0 :52 HgA1C , Office (77787) Comments: [facility] HgA1C , Office 5.2 % (Normal) Range: 4.6 - 7.1 :52 Blood Glucose , Office (01073) Comments: [facility] Blood Glucose , Office 99 (Normal) :59 [...] 11.6-14.6 WBC 8.2 K/mm3 (Normal) Range: 4.4-11.0 1-Dho-257640:00 COMPLETE UA Comments: COMMENTS: CULTURE IF WBC>5Precautions*: [...] 3.5-5.1 NA 138 mmol/L (Normal) Range: 136-145 14-Qgk-317904:12 BMP CL 104 mmol/L (Normal) Range: 98-107 CO2 31.5 mmol/L (Abnormal) Range: 22.0-29.0 GAP 4 (Abnormal) Range: 5-15 K 4.3 mmol/L (Normal) Range: 3.5-5.1 BUN 13 mg/dL (Normal) Range: 7-18 BUN/CRE 16.3 {RATIO} (Normal) Range: 10-20 CA 8.7 mg/dL (Normal) Range: 8.5-10.1 CREAT,SERUM 0.8 mg/dL (Normal) Range: 0.6-1.0 GLU 70 mg/dL (Normal) Range: 70-110 NA 139 mmol/L (Normal) Range: 136-145 14-Kkk-204026:12 CBC HCT 37.4 % (Normal) Range: 37-47 HGB 12.8 g/dL (Normal) Range: 12.0-16.0 MCH 30.5 pg (Normal) Range: 27.0-32.0 MCHC 34.1 g/dL (Normal) Range: 32-36 MCV 89.4 fL (Normal) Range: 81-99 PLT 295 K/mm3 (Normal) Range: 150-450 RBC 4.19 {M/mm3} (Abnormal) Range: 4.2-5.4 RDW 12.8 % (Normal) Range: 11.6-14.6 WBC 6.2 K/mm3 (Normal) Range: 4.4-11.0 07-Yfp-834013:12 PRO TIME INR 0.9 (Normal) PROTIME 11.7 s (Normal) Range: 11.7-13.3 :12 PTT 30.0 s (Normal) Range: 24.6-36.6 :34 Blood Glucose , Office (86063) Blood Glucose , Office 109 (Normal) :34 HgA1C , Office (17597) HgA1C , Office 5.4 % (Normal) Range: 4.6 - 7.1 :42 GLUP 141 mg/dL (Abnormal) Comments: GLU,2HPPG 75gm GLUC PPG GLUP from 1127:L13864G. Comments: Glucose result from 140 to <200 mg/dL suggestsIMPAIRED GLUCOSE HOMEOSTASIS per A.D.A. criteria. 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 Indication: Obstructive sleep apnea, adult Abnormal [...] TESTS Indication: Symptom, Cough Planned Observations CALCIFEDIOL (75203)Indication: Depression On: :31 Request TSH (43391)Indication: Abnormal glucose tolerance test On: Request URINALYSIS, W/ MICRO (68565)Indication: Abnormal glucose tolerance test On: Request MICROALBUMIN: CREATININE RATIO (87475) AND (90540)Indication: Abnormal glucose tolerance test On: Request METABOLIC PANEL, COMPREHENSIVE (26410)Indication: Abnormal glucose tolerance test On: 5-Rnd-237422:29 Request LIPOPROTEIN, BLD, BY NMR (03199)Indication: Abnormal glucose tolerance test On: :29 Request CBC W/AUTO DIFF WBC (01056)Indication: Abnormal glucose tolerance test On: 3-Ppm-783944:29 Request Clostridium difficile Toxin A+B, EIA (55668)Indication: Diarrhea On: 33-Paf-249294:04 Request Cologuard - Strool Based DNA Test, CRC SCREEN (00081)Indication: Encounter for screening for malignant neoplasm of colon (Renamed from Special screening for malignant neoplasms, colon) On: 54-Gzy-774255:58 Request Lipid Panel (83190)Indication: Other hyperlipidemia On: 38-Jku-570565:58 Request CBC WITH MANUAL DIFF (65514)Indication: Other hyperlipidemia On: 31-Ctt-369922:58 Request MICROALBUMIN: CREATININE RATIO (21678) AND (00221)Indication: Other hyperlipidemia On: 47-Txc-736943:58 Request URINALYSIS (72612)Indication: Other hyperlipidemia On: 71-Rom-839336:58 Request TSH (21735)Indication: Other hyperlipidemia On: 40-Lga-531301:58 Request Metabolic Panel, Comprehensive (76410)Indication: Other hyperlipidemia On: 28-Tgx-798716:57 Request GIARDIA LAMBLIA ANTIBODY (19341)Indication: Diarrhea (Renamed from D (diarrhea)) On: :29 Request WON CULTURE-STOOL (11359)Indication: Diarrhea (Renamed from D (diarrhea)) On: :29 Request OCCULT BLOOD FECES SCREEN (20245)Indication: Diarrhea (Renamed from D (diarrhea)) On: : Request LEUKOCYTE COUNT, FECAL (14682)Indication: Diarrhea (Renamed from D (diarrhea)) On: : Request C-DIFFICILE, STOOL (06745)Indication: Diarrhea (Renamed from D (diarrhea)) On: :27 Request NYPNA-VFMRJVCIXSD-OISUK (61266)Indication: Elevated AFP On: 4-Ocj-355556:55 Request PDFKU-YZSAVHMHCIV-KCFWC (01355)Indication: Elevated tumor markers On: 94-Kez-967948:39 Request VITAMIN B12 AND FOLATES (40284)Indication: Other hyperlipidemia On: :39 Request CALCIFEDIOL (87408)Indication: Other hyperlipidemia On: :39 Request TSH (THYROID STIMULATING HORMONE) (00106)Indication: Other hyperlipidemia On: :39 Request LIPID PANEL (55566)Indication: Other hyperlipidemia On: :39 Request METABOLIC PANEL, COMPREHENSIVE (39739)Indication: Other hyperlipidemia On: :39 Request CBC, PLATELETS & AUT DIFF (50856)Indication: Other hyperlipidemia On: :39 Request CBC W/AUTO DIFF WBC (19144)Indication: Abnormal glucose tolerance test On: :05 Request LIPID PANEL (28109)Indication: Other hyperlipidemia On: :04 Request METABOLIC PANEL, COMPREHENSIVE (34512)Indication: Abnormal glucose tolerance test On: :04 Request MICROALBUMIN: CREATININE RATIO (36182) AND (49731)Indication: Abnormal glucose tolerance test On: :04 Request GUGTF-CAABEURTQBF-PYZPT (75481)Indication: Other chronic nonalcoholic liver disease On: :02 Request TSH (07842)Indication: Depression On: 91-Hfz-180832:37 Request LIPID PANEL (46900)Indication: Hyperlipidemia, unspecified On: 83-Sus-456078:36 Request DQGVY-GNVBMWAOWGQ-NLPGK (45002)Indication: Other chronic nonalcoholic liver disease On: 79-Sqf-669628:35 Request CBC W/AUTO DIFF WBC (27550)Indication: Abnormal glucose tolerance test On: 08-Tac-809879:35 Request METABOLIC PANEL, COMPREHENSIVE (59256)Indication: Abnormal glucose tolerance test On: 85-Ltk-683890:35 Request FECAL OCCULT HGB ASSAY- tubes sent home (01355)Indication: Anemia, unspecified On: 18-Ywp-973714:19 Request METABOLIC PANEL, COMPREHENSIVE (22247)Indication: Abnormal glucose tolerance test On: 72-Lht-149382:43 Request IRON (61344)Indication: Anemia, unspecified On: 02-Roc-124613:30 Request HgA1C , Office (69186)Indication: Abnormal glucose tolerance test On: 28-Qcb-695192:53 Request UPEP (60564)Indication: Osteopenia On: 01-Tjn-494466:50 Request SPEP (17230)Indication: Osteopenia On: :50 Request UPEP (13529)Indication: Osteopenia On: 61-Och-232498:13 Request SPEP (23348)Indication: Osteopenia On: 42-Klk-572907:13 Request TSH (76068)Indication: Osteopenia On: :23 Request PHOSPHORUS (36119)Indication: Osteopenia On: :23 Request PARATHORMONE (57386)Indication: Osteopenia On: :23 Request URINE CALCIUM OSMAR TIMED 24 Hour (27800)Indication: Osteopenia On: :23 Request UPEP (71448)Indication: Osteopenia On: :23 Request SPEP (32414)Indication: Osteopenia On: :23 Request C-DIFFICILE, STOOL (53625)Indication: Clostridium difficile infection On: 8-Ylf-646813:25 Request C-DIFFICILE, STOOL (34183)Indication: Diarrhea (Renamed from D (diarrhea)) On: 73-Add-529406:57 Request WON CULTURE-STOOL (13988)Indication: Diarrhea (Renamed from D (diarrhea)) On: 47-Ekc-238766:06 Request C-DIFFICILE, STOOL (86882)Indication: Diarrhea (Renamed from D (diarrhea)) On: :05 Request LEUKOCYTE COUNT, FECAL (63013)Indication: Diarrhea (Renamed from D (diarrhea)) On: 65-Bhx-897321:05 Request OCCULT BLOOD FECES SCREEN (97544)Indication: Diarrhea (Renamed from D (diarrhea)) On: :05 Request OVA & PARASITE DIR SMEAR (54514)Indication: Diarrhea (Renamed from D (diarrhea)) On: :05 Request C DIFF AMPLIFIED PROBE (52137)Indication: Diarrhea (Renamed from D (diarrhea)) On: 15-Icu-929519:53 Request Rapid Flu (57405 x 2)Indication: Symptom, Cough On: 9-Srt-700136:35 Request URINE WON CULTURE-OSMAR COL COUNT (03729)Indication: Hematuria (Renamed from Blood in the urine) On: 9-Kim-144712:28 Request Urinalysis, Office (52757)Indication: Hematuria (Renamed from Blood in the urine) On: 2-Msc-084981:00 Request HgA1C , Office (94547)Indication: Abnormal glucose tolerance test On: 32-Emo-107684:31 Request IRON (76143)Indication: Iron deficiency anemia, unspecified On: 40-Klr-473721:22 Request BACT CULTURE ANY-ANAEROBIC (68353)Indication: CELLULITIS/ABSCESS, FOOT On: 41-Ukw-324973:02 Request Comments: left ankle MICROALBUMIN: CREATININE RATIO (87612) AND (41034)Indication: Abnormal glucose tolerance test On: : Request CBC WITH MANUAL DIFF (09977)Indication: Abnormal glucose tolerance test On: : Request METABOLIC PANEL, COMPREHENSIVE (86788)Indication: Abnormal glucose tolerance test On: :22 Request Vitamin D Hydroxy (87699)Indication: Osteopenia On: :21 Request HEPATIC FUNCTION PANEL (80227)Indication: Hyperlipidemia, unspecified On: :21 Request LIPID PANEL (23980)Indication: Hyperlipidemia, unspecified On: :21 Request HEPATIC FUNCTION PANEL (69494)Indication: Hyperlipidemia, unspecified On: 66-Mam-178674:47 Request LIPID PANEL (90130)Indication: Hyperlipidemia, unspecified On: :47 Request TSH (77068)Indication: Other and unspecified disorders of circulatory system On: :41 Request METABOLIC PANEL, COMPREHENSIVE (10588)Indication: Abnormal glucose tolerance test On: :41 Request MICROALBUMIN: CREATININE RATIO (86606) AND (44619)Indication: Abnormal glucose tolerance test On: :34 Request LIPID PANEL (63717)Indication: Hyperlipidemia, unspecified On: :34 Request PT (Prothrobim Time) (32452)Indication: Other and unspecified disorders of circulatory system On: :34 Request PTT (Activated Partial Thromboplastin Time) (97790)Indication: Other and unspecified disorders of circulatory system On: :34 Request CBC WITH MANUAL DIFF (15623)Indication: Other and unspecified disorders of circulatory system On: 45-Gzt-668921:34 Request HEPATIC FUNCTION PANEL (96236)Indication: Hyperlipidemia, unspecified On: 26-Qka-447761:17 Request LIPID PANEL (33252)Indication: Hyperlipidemia, unspecified On: :17 Request UPEP (62910)Indication: Osteopenia On: :52 Request SPEP (47312)Indication: Osteopenia On: :51 Request PHOSPHORUS (01594)Indication: Osteopenia On: :51 Request PARATHORMONE (72105)Indication: Osteopenia On: :51 Request MICROALBUMIN: CREATININE RATIO (31568) AND (22420)Indication: Abnormal glucose tolerance test On: 16-Nyc-745534:44 Request LIPID PANEL (78235)Indication: Hyperlipidemia, unspecified On: 42-Azb-734374:38 Request METABOLIC PANEL, COMPREHENSIVE (69308)Indication: Abdominal pain, acute, generalized On: 26-Yev-569226:38 Request CBC WITH MANUAL DIFF (25984)Indication: Abdominal pain, acute, generalized On: 62-Zgc-614723:38 Request TSH (33698)Indication: Osteopenia On: 21-Eds-217021:38 Request Vitamin D Hydroxy (65510)Indication: Osteopenia On: 26-Ppf-194446:38 Request LIPID PANEL (12309)Indication: Other hyperlipidemia On: 96-Dah-062156:33 Request GLUCOSE, PP/2 HOUR (49653)Indication: Fatigue On: :59 Request URINALYSIS W/O MICRO (28942)Indication: Fatigue On: :58 Request TSH (60550)Indication: Fatigue On: :58 Request CBC WITH MANUAL DIFF (93556)Indication: Fatigue On: :58 Request METABOLIC PANEL, COMPREHENSIVE (84812)Indication: Fatigue On: :58 Request Planned Encounters Medical; 6 Month FU - On: 17-Mar-2019 13:00 [facility] Jessica Tanner DO, DO, Kathleen Planned Procedures ELECTROCARDIOGRAM, COMPLETE (ECG) On: 15-Sep-2018 Intent (22938)By: Jessica Tanner DO Comments: nsr no acute chg Jessica Tanner DO Spirometry (18382)By: Ciro JACQUES, On: 15-Sep-2018 Intent Jessica Preston DO ORTHOSTATIC BLOOD PRESSURE On: 24-May-2018 Intent ASSESSMENT (12611)By: Ana M Christine LPN PNEUM VAC ADLT/IMUMNOSPR, SBC/INTRM On: 28-Apr-2018 Intent (64770)By: Jessica Tanner DO Comments: pneumovax prefilled syringe injectionlot: [id number]: 12/2018R DELT IMpt tolerated wellAD Jessica Whiting DO BZCI-MH-IAOP BEHAVIORAL COUNSELING On: 28-Apr-2018 Intent FOR OBESITY, 15 MINUTES (G0447)By: Jessica Tanner DO, DO, Kathleen DEXA SCAN AXIAL SKELETON (68912)By: On: 28-Apr-2018 Intent Jessica Tanner DO, DO, Kathleen Flu Vaccine (Quadrivalent) 12220Zy: On: 02-Aug-2017 Intent Jessica Tanner DO, DO, Comments: InfluenzaLot #[id number]-04/25/18Site-L dltd, IMDose prefilled syringeVIS and ABN signedgiven by:INÉS lu QODP-YN-PIYW BEHAVIORAL COUNSELING On: 08-Apr-2017 Intent FOR OBESITY, 15 MINUTES (G0447)By: Jessica Tanner DO, DO, Kathleen ELECTROCARDIOGRAM, COMPLETE (ECG) On: 11-Mar-2017 Intent (19116)By: Jessica Tanner DO Comments: nsr no acute chg Jessica Tanner DO Aerosol Treatment (34342)By: On: 22-Feb-2017 Intent Tamia Wood Comments: Lungs clear after aersol treatment. 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 Aerosol Treatment (82291)By: Ciro On: 15-Oct-2016 Jessica Combs DO, DO, Kathleen Comments: more a/e no wheeze less chest tightness CT - Abdomen & Pelvis (IV Contrast On: 15-Sep-2016 Intent Needed)By: Doug Barrett MD Comments: to be done 11/2016 Flu Vaccine (Quadrivalent) 46666Su: On: 02-Sep-2016 Intent Doug Barrett MD Comments: FLUlot: [id number]:05/07/17site:Lt deltoidroute:IMdose:.5mlBEBA PHAM Radiology - Chest- PA and LatBy: On: 05-May-2016 Intent [address] DO CT - Abdomen (IV Contrast Needed)By: On: 05-May-2016 Intent Clemencia Ferreira DO Comments: elevated alpha feto protein Radiology - Shoulder - LeftBy: Fast On: 03-Jan-2016 Clemencia Combs DO Flu Vaccine (Quadrivalent) 38405Va: On: 09-Aug-2015 Intent Clemencia Ferreira DO Comments: Lot #:[id number] date: 04/2016Amount given:prefilled syringeSite given:L Dltd, IMGiven by: RAJ Taylor and ABN signed ADMINISTRATION OF INFLUENZA VIRUS On: 09-Aug-2015 Intent VACCINE (G0008)By: Clemencia Ferreira DO Aerosol Treatment (97701)By: Jhon On: 05-Jun-2015 Clemencia Combs DO Solu- Medrol Injection, 125mg On: 05-Jun-2015 Intent (J2930)By: Clemencia Ferreira DO Comments: lot:[id number]:route:IMdose:125MGsite: R glutGiven by: VAMSI Watt MRI LIVER W CONTRAST (87980)By: Jhon On: 26-Apr-2015 Clemencia Combs DO DEXA SCAN AXIAL SKELETON (88143)By: On: 05-Apr-2015 Intent Clemencia Ferreira DO Ultrasound - LiverBy: Clemencia Ferreira DO On: 05-Apr-2015 Intent A EKG (08666)By: Clemencia Ferreira DO On: 05-Apr-[address] - AbdomenBy: Clemencia Ferreira DO On: 07-Dec-2014 Intent Comments: attn liver - elevated alpha feto protein Aerosol Treatment (93832)By: Toy On: 05-Nov-2014 Intent Nell KLINE Prevnar 13 (06305)By: Visit, Nurse On: 30-Aug-2014 Intent Comments: [id number] arm, IMas ADMINISTRATION OF INFLUENZA VIRUS On: 17-Aug-2014 Intent VACCINE (G0008)By: Clemencia Ferreira DO FLU VAC, SPLIT, >3 YEARS, INTRAMUSC On: 17-Aug-2014 Intent (78815)By: Clemencia Ferreira DO Comments: lot: [id number]: 05-07-15site/route: L del/IMamt: 0.5mLVIS signed when applicableChelsea, [employer] Solu -Medrol Injection, 125 mg On: 13-Aug-2014 Intent (J2930)By: Toy KLINENell Aerosol Treatment (19180)By: Toy On: 13-Aug-2014 Intent Nell KLINE Ultrasound - LiverBy: Clemencia Ferreira DO On: 25-May-2014 Intent A Aerosol Treatment (14833)By: Toy On: 26-Mar-2014 Intent Nell KLINE Aerosol Treatment (45670)By: Toy On: 26-Mar-2014 Intent Nell KLINE EKG (33090)By: Clemencia Ferreira DO On: 16-Feb-2014 Intent Comments: ekg showed normal sinus rhythym, normal axis, no acute st/t wave changes Eprescribed prescriptions (G8553)By: On: 16-Feb-2014 Intent Clemencia Ferreira DO Eprescribed prescriptions (G8553)By: On: 21-Nov-2013 Intent Kristy Hniton Eprescribed prescriptions ([id number])By: On: 19-Jul-2013 Intent Brooke Conklin FLU VAC, SPLIT, >3 YEARS, INTRAMUSC On: 19-Jul-2013 Intent ([id number])By: Brooke Conklin Comments: Lot #:[id number] date:mount given:0.5mlRoute: IMSite given: L dltdVIS and [...] Intent Jessica Tanner DO Ciro , Comments: Lot:[id number]:07/2014Dose:30mLRoute:IMSite:r hipGiven By:HUYEN signed Jessica Eprescribed prescriptions ([id number])By: On: 20-Dec-2012 Intent Clemencia Ferreira DO DXA, BONE DENSITY, AXIAL SKELETON On: 29-Nov-2012 Intent ([id number])By: Clemencia Ferreira DO Eprescribed prescriptions (G8553)By: On: 29-Nov-2012 Intent Brooke Conklin Solu -Medrol Injection, 125 mg On: 23-Nov-2012 Intent ([id number])By: Essie Fletcher LPN Comments: Lot #[id number]-left hipDose- 125 mggiven by: Nito Fletcher LPN Eprescribed prescriptions (G8553)By: On: 23-Nov-2012 Intent Brooke Conklin Solu -Medrol Injection, 125 mg On: 21-Nov-2012 Intent ([id number])By: Clemencia Ferreira DO Comments: Lot: [id number]: mt: 125mgRoute: IMSite: R Gluteal without difficulty or c/o voiced. Given by: INÉS Benjamin Pulse Oximetry ([id number])By: Rubin On: 21-Nov-2012 Intent Brooke Comments: 93%- recheck 95 Eprescribed prescriptions (G8553)By: On: 21-Nov-2012 Intent Brooke Conklin Solu -Medrol Injection, 125 mg On: 18-Nov-2012 Intent ([id number])By: Tamia Roblero LPN Comments: pushed By Dr. Ciro aragon pt IV lot [id number] 04/22 Rocephon Injection, 2 Gm ([id number])By: On: 18-Nov-2012 Intent Tamia Roblero LPN Comments: IV initiated in: R ACwith 22 gaugenumber of attempts: x2 attempts, infiltrated in R FA on first attempt.Tolerated well: without c/o voiced.Rocephin Lot#[id number], exp03/21-2 gms in NS 100cc's infused without difficulty or c/o voiced. Solu- Medrol Injection, 125mg On: 17-Nov-2012 Intent ([id number])By: Jessica Tanner DO Comments: Lot #[id number]-8/15Site-right hipDose- 125 mggiven by: INÉS Fuller DO, Kathleen Eprescribed prescriptions ([id number])By: On: 17-Nov-2012 Jessica Hope DO, DO, Kathleen Rocephon Injection, 2 Gm ([id number])By: On: 17-Nov-2012 Intent Tamia Roblero LPN THER/PROPH/DIAG IV INF, INIT On: 16-Nov-2012 Intent ([id number])By: Clemencia Ferreira DO Comments: lot # [id number]- 03/21site-Rantecubital fossaroute-IVdose- 2GCHenderson INÉS Solu -Medrol Injection, 125 mg On: 16-Nov-2012 Intent ([id number])By: Clemencia Ferreira DO Comments: Lot:[id number]:Dose:125mgRoute:IMSite:l hipGiven By:HUYEN signed INFUSION, NORMAL SALINE SOLUTION , On: 16-Nov-2012 Intent 250 CC ([id number])By: Clemencia Ferreira DO Rocephin Injection, 2 Gram On: 16-Nov-2012 Intent ([id number])By: Clemencia Ferreira DO Pulse Oximetry ([id number])By: Rubin, On: 16-Nov-2012 Intent Brooke Comments: 95% Eprescribed prescriptions (G8553)By: On: 16-Nov-2012 Intent Brooke Conklin Aerosol Treatment ([id number])By: Toy On: 09-Nov-2012 Intent Nell KLINE FLU VAC, SPLIT, >3 YEARS, INTRAMUSC On: 28-Sep-2012 Intent ([id number])By: Nell Yeager CNP Comments: Lot:[id number]:6.30.13Dose:0.5mLRoute:IMSite:L DltdGiven By:Willie signed ADMINISTRATION OF INFLUENZA VIRUS On: 28-Sep-2012 Intent VACCINE (G0008)By: Nell Yeager CNP SPECIMEN HANDLING/TRANSPORT On: 28-Sep-2012 Intent ([id number])By: Elissa Wallace LPN SPECIMEN HANDLING/TRANSPORT On: 07-Sep-2012 Intent ([id number])By: Elissa Wallace LPN Radiology - Chest- PA and LatBy: On: 08-Jun-2012 Intent Fast DO, Clemencia A ZOST[place] VACC, [place] ([id number])By: Rubin, On: 28-Apr-2012 Intent Brooke Comments: pt received at [facility] 04/2012 Eprescribed prescriptions ([id number])By: On: 20-Apr-2012 Intent Fast DO, Clemencia A EKG ([id number])By: Brooke Conklin On: 20-Apr-2012 Intent Comments: ekg showed normal sinus rhythym, normal axis, no acute st/t wave changes Spirometry ([id number])By: Rubin On: 20-Apr-2012 Intent Brooke Comments: good effort and curve normal Eprescribed prescriptions ([id number])By: On: 16-Mar-2012 Intent Fast DO, Clemencia A Eprescribed prescriptions ([id number])By: On: 16-Mar-2012 Intent Fast DO, Clemencia A Eprescribed prescriptions ([id number])By: On: 29-Jan-2012 Intent Fast DO, Clemencia A Eprescribed prescriptions ([id number])By: On: 27-Nov-2011 Intent Ciro DO, Jessica Ciro DO, Jessica PNEUM VAC ADLT/IMUMNOSPR, SBC/INTRM On: 19-Aug-2011 Intent ([id number])By: Brooke Conklin Comments: Lot #:[id number] date:mount given:0.5mlRoute: IMSite given:left deltGiven by: BEBA Higgins ADMINISTRATION OF PNEUMOCOCCAL On: 19-Aug-2011 Intent VACCINE (G0009)By: Brooke Conklin ADMINISTRATION OF INFLUENZA VIRUS On: 04-Aug-2011 Intent VACCINE (G0008)By: Brooke Conklin FLU VAC, SPLIT, >3 YEARS, INTRAMUSC On: 04-Aug-2011 Intent ([id number])By: Brooke Conklin Radiology - Chest- PA and LatBy: On: 30-Jan-2011 Intent Clemencia Ferreira DO A Aerosol Treatment ([id number])By: Toy On: 10-Nov-2010 Intent Nell KLINE Pulse Oximetry ([id number])By: Toy KLINE, On: 10-Nov-2010 Intent Nell Cerna TDAP VACCINE >7 IM ([id number])By: Ron On: 21-Oct-2010 Intent Carla CONTE Comments: Lot #[id number]/13Site-L arm, IMDose prefilled syringegiven by:LISA Radiology - Chest- PA and LatBy: On: 07-Oct-2010 Intent Clemencia Ferreira DO Spirometry ([id number])By: Rubin, On: 07-Oct-2010 Intent Brooke Comments: good effort and curve normal DXA, BONE DENSITY, AXIAL SKELETON On: 07-Oct-2010 Intent ([id number])By: Clemencia Ferreira DO Comments: vikas IMMUNIZ ADMNIN, 1 VAC, SNGL/COMBO On: 07-Oct-2010 Intent ([id number])By: Brooke Conklin Comments: Lot #[id number]-L armDose0.5mlgiven by:LISA FLU VAC, SPLIT, >3 YEARS, INTRAMUSC On: 07-Oct-2010 Intent ([id number])By: Brooke Conklin Solu -Medrol Injection, 125 mg On: 06-Aug-2010 Intent ([id number])By: Nell Yeager CNP Pulse Oximetry ([id number])By: Toy KLINE, On: 06-Aug-2010 Intent Soniya Aerosol Treatment ([id number])By: Toy On: 06-Aug-2010 Intent RAISANell EKG ([id number])By: Clemencia Ferreira DO On: 07-Jul-2010 Intent Comments: ekg showed normal sinus rhythym, normal axis, no acute st/t wave changes EKG ([id number])By: Brooke Conklin On: 03-Apr-2010 Intent Comments: ekg showed normal sinus rhythym, normal axis, no acute st/t wave changes FLU VAC, SPLIT, >3 YEARS, INTRAMUSC On: 05-Aug-2009 Intent ([id number])By: Brooke Conklin Comments: Lot #:[id number] date:mount given:0.5mlRoute: IMSite given:left deltGiven by: BEBA HigginsIZ ADMNIN, 1 VAC, SNGL/COMBO On: 05-Aug-2009 Intent ([id number])By: Brooke Conklin Solu -Medrol Injection, 125 mg On: 04-Jul-2009 Intent ([id number])By: Toy KLINE Soniya Comments: Lot #: [id number] date: 02/17Amount given: 125 mg/2 mlRoute: IMSite given: Right hipGiven by: Fernie Singleton LPN Spirometry ([id number])By: Rubin On: 07-May-2009 Intent Brooke Comments: good effort and curve normal Ultrasound - PelvisBy: Jhon JACQUES, On: 04-Feb-2009 Intent Clemencia Enciso Radiology - ChestBy: Clemencia Ferreira DO On: 04-Feb-2009 Intent A Comments: pa and lat Pulse Oximetry ([id number])By: Toy KLINE, On: 30-Jan-2009 Intent Soniya Aerosol Treatment ([id number])By: Toy On: 30-Jan-2009 Intent RAISA Soniya EKG ([id number])By: Brooke Conklin On: 18-Dec-2008 Intent Comments: ekg showed normal sinus rhythym, normal axis, no acute st/t wave changes DXA, BONE DENSITY, AXIAL SKELETON On: 07-Sep-2008 Intent ([id number])By: Clemencia Ferreira DO FLU VAC, SPLIT, >3 YEARS, INTRAMUSC On: 07-Sep-2008 Intent ([id number])By: Brooke Conklin Comments: Lot #:[id number] date:04/16Amount given:0.5mlRoute: IMSite given:left delGiven by: BEBA Higgins IMMUNIZ ADMNIN, 1 VAC, SNGL/COMBO On: 07-Sep-2008 Intent ([id number])By: Brooke Conklin Radiology - Knee - Left - Weight On: 30-Jul-2008 Intent BearingBy: Jhon DO Clemencia A Comments: with sunrise view Spirometry ([id number])By: Rubin, On: 06-Mar-2008 Intent Brooke Comments: good effort and curve normal Pulse Oximetry ([id number])By: Rubin On: 06-Mar-2008 Intent Brooke Comments: 98% Aerosol Treatment ([id number])By: Ciro On: 13-Feb-2008 Jessica Combs DO, DO, Kathleen Solu- Medrol Injection, 125mg On: 13-Feb-2008 Intent ([id number])By: Jessica Tanner DO Comments: Lot #: [id number] date: mount given: 125 mg/2 mlRoute: IMSite given: Right hipGiven by: INÉS Sabillon DO, Kathleen Pulse Oximetry ([id number])By: Khai On: 13-Feb-2008 Intent KRISHNA EKG ([id number])By: Brooke Conklin On: 29-Nov-2007 Intent Comments: ekg showed normal sinus rhythym, normal axis, no acute st/t wave changes IMMUNIZ ADMNIN, 1 VAC, SNGL/COMBO On: 02-Sep-2007 Intent ([id number])By: Kenia Fernandez FLU VAC, SPLIT, >3 YEARS, INTRAMUSC On: 02-Sep-2007 Intent ([id number])By: Kenia Fernandez Radiology - Chest- PA and LatBy: On: 09-Aug-2007 Intent Jhon DO, Clemencia A Spirometry ([id number])By: Jhon JACQUES, On: 09-Aug-2007 Intent Clemencia A Comments: good effort and curve with mild airway obstruction Pneumovax ([id number])By: Clemencia Ferreira DO On: 09-Aug-2007 Intent A Comments: given im in left deltoid lot #[id number] exp.09/02/08-aw EKG ([id number])By: Clemencia Ferreira DO On: 20-Oct-2006 Intent Comments: ekg showed normal sinus rhythym, normal axis, no acute st/t wave changes PNEUM VAC ADLT/IMUMNOSPR, SBC/INTRM On: 27-Sep-2006 Intent ([id number])By: KRISHNA Ridley IMMUNIZ ADMNIN, 1 VAC, SNGL/COMBO On: 27-Sep-2006 Intent ([id number])By: KRISHNA Ridley FLU VAC, SPLIT, >3 YEARS, INTRAMUSC On: 23-Sep-2006 Intent ([id number])By: Kenia Jauregui IMMUNIZ ADMNIN, 1 VAC, SNGL/COMBO On: 23-Sep-2006 Intent ([id number])By: Kenia Jauregui Spirometry ([id number])By: Jhon JACQUES, On: 22-Sep-2006 Intent Clemencia Enciso Comments: was normal with normal curve and effort -but pt with a definitive bronchospastic cough Overnight Pulse OX ([id number])By: Jhon On: 22-Sep-2006 Intent Clemencia JACQUES Planned Medications [...] 125 MG Ordered: 16-Nov-2012 Pending Jhon JACQUES Celmencia A INJECTION, METHYLPREDNISOLONE SODIUM SUCCINATE, UP TO 125 MG Ordered: 17-Nov-2012 Pending Ciro DO, Jessica Ciro DO, Jessica INJECTION, METHYLPREDNISOLONE SODIUM SUCCINATE, UP TO 125 MG Ordered: 18-Nov-2012 Pending Tamia Roblero PATROL AGENT INJECTION, METHYLPREDNISOLONE SODIUM SUCCINATE, UP TO 125 [...] a sinus flare up and went to [place] -- been home and fine other than [...] patient does not have durable power of state attorney or living will. The patient has noticed nothing from the geriatic depression scale. Other providers contributing to the patient's care are die cast engineer, gastrologist, commercial lines account manager and surgeon.Encounter Diagnosis: Nonsmoker, BMI 30.0-30.9,adult, Annual [...] patient does not have durable power of state attorney or living will. The patient has noticed nothi ng from the geriatic depression scale. 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 The symptoms have been associated with hoarseness [...] - Celia larkin was the doc in [place]-- no trauma- noticed this inlast 3-4 months [...] discharge. Note for Rash: Pt was outside [employer] bed.- she was exposed to poison alina [...] her of recent URI's that occured from [facility] [place] and believes End: 03-Apr-2010 15:49 its [...] weight :. 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 Patient has been compliant with instructions. [facility] End: 31-Jan-2007 15:37 t medication [...] help daughter just recently moved away to [place] ) ,excessive sleeping ,headache (at times ) [...]
--- OUTSIDE RECORDS SUMMARY | 2019-01-30 01:57 | XMS RPT_ITS | Continuity of Care Document ---
:1945 Author Organization [facility] Address [facility]7 [facility] 2 [place] [address] Phone Care Team Providers Name Role Phone Ciro DO, Jessica Unavailable Migue Josemanuel JACQUES Gretta Unavailable Ken Larkin Unavailable Dr. Zander López Unavailable Jhon Clemencia Unavailable Alex Clement Unavailable Long Carla CONTE Unavailable Unavailable INÉS Roblero Unavailable Unavailable Kristy Hinton Unavailable Unavailable Rosemarie Osorio Unavailable Unavailable Brush Washer, System Unavailable Unavailable Unavailable Unavailable Problems Name Dates Details Abnormal glucose tolerance test (R73.02, 790.22) Comments: diet andex Status: Active Abnormal liver ultrasound (R93.2, 793.3) Status: Active Acute bronchitis due to other specified organisms (J20.8, 466.0) Status: Active Acute embolism and thrombosis of unspecified deep veins of unspecified lower extremity (I82.409, 453.40) Comments: DVT and WU5132?? 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 Annual Medicare Phyiscal WITHOUT abnormal findings (Renamed from Encounter for general adult medical examination without abnormal findings) (Z00.00, V70.9) Status: Active Asthma (J45.909, 493.90) Comments: managed by [facility] Status: Active Asthma with acute exacerbation [...] but resumes when she goes back to [facility] -- will need to chg her [...] present regimenleft fibula fracture from fall in [place] May 22 2011Lateroal malleolus fracture Status: Active [...] Name Dates Details CALCIUM 600 + D, [id number] (Oral Tablet) 1 BID for 0 days [...] for 0 days Refills: 0 Ordered:23-Sep-2006 Edda Blakley LPN End : 23-Sep-2006 Discontinued ADVAIR DISKUS, [...] Discontinued Comments:This order discontinued per [employer]. [place]STAT[place], 132138RAWQ/ML (Mouth/Throat Suspension) 5cc Suspension qid for 10 [...] Visit Report Result: Comments: See Note; NOTES: [facility] [address] [place] [address] OFFICE VISIT Date of Service: 07/12/18 MR#: [id number] Acct: [id number] Name: SUE HAWTHORNE Rep #: [id number] : 1945 Provider: Ginny Currie DO Age/Sex: 72/F [place] [facility] Status: Signed Intake Intake Visit Reasons: right [...] 3 Diagnoses Right foot pain M79.671 07/21/18 1404 <Electronically signed by Ginny Currie DO> Date Ginny Ro igner Signature: Date (if applicable) CC: 12-Jul-2018 Foot min 3 Views Result: Comments: See Note; NOTES: [facility] Imaging Services [address] [place] [address] Foot min 3 Views MR#: [id number] Acct: [id number] Name: SUE HAWTHORNE Rep #: [id number] : 1945 F 72 From: Mario Salguero MD PCP: Jessica Tanner DO Status: REG CLI Study: Foot min 3 Views Date of Exam: 07/12/18 Exam# [id number] Ordering Dr: Ginny Currie DO STUDY: X-RAY [...] CC: Ginny Currie DO; Jessica Tanner DO Clerical And Office Support Workers: Signed 05-Jul-2018 PT D/C Summary (1) Result: Comments: See Note; NOTES: [facility] Physical Therapy Health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 Thank you for the referral of this patient. Sincerely, Violetta Lazcano <Electronically signed by Violetta Lazcano PT, Cert. MDT> 07/05/18 1348 CC: Jessica Ciro DO; Josemanuel Abreu DO HUSSEIN Signed 20-Jun-2018 Orthopedic Visit Report Result: Comments: See Note; NOTES: [facility] [address] [place] [address] OFFICE VISIT Date of Service: 06/07/18 MR#: [id number] Acct: [id number] Name: SUE HAWTHORNE Rep #: [id number] : 1945 Provider: KRISTIN Amezquita Age/Sex: 72/F Location: [facility] Status: Signed Intake Intake Visit Reasons: f/u [...] total replacement of left shoulder Z96.612 06/20/18 9619 <Electronically signed by Ken FOSTER> Date Ken FOSTER Cosigner Signature: Date (if applicable) CC: 06-Jun-2018 Re-Evaluation - PT (1) Result: Comments: See Note; NOTES: [facility] [address] [place] [address]. [address] [place], [place] [address] Fax REEVALUATION / MEDICARE RECERTI FICATION PHYSICAL THERAPY MR#: [id number] Acct: [id number] Name: SUE HAWTHORNE Rep #: [id number] : 1945 72 From: Violetta Lazcano PT, [...] do not hesitate to contact me at [phone] by phone or if you have questions or concerns regarding this new plan of care! Sincerely, Violetta Lazcano <Electronically signed by Violetta Lazcano PT, Cert. MDT> 06/06/18 1222 CC: Jessica Tanner DO; Josemanuel Abreu DO HUSSEIN Signed For Medicare only, by signing this I certify the plan of care. Physicians Signature Date 13-May-2018 Re-Evaluation - PT (1) Result: Comments: See Note; NOTES: [facility] Therapy [facility] [address]. [address] [place] [address] Fax REEVALUATION / MEDICARE RECERTI [facility] PHYSICAL THERAPY MR#: [id number] Acct: [id number] Name: SUE HAWTHORNE Rep #: [id number] : 1945 72 From: Violetta Lazcano PT, [...] do not hesitate to contact me at [phone] by phone or Fax: if you have questions or concerns regarding this new plan of care! Sincerely, Violetta Lazcano <Electronically signed by Violetta Lazcano PT, Cert. MDT> 05/13/18 1228 CC: Jessica Tanner DOCristin Abreu DO HUSSEIN Signed For Medicare only, by signing this I certify the plan of care. Physicians Signature Date 12-May-2018 Dexa Bone Density Study Result: Comments: See Note; NOTES: [facility] Imaging Services [address] [place] [address] Dexa Bone Density Study MR#: [id number] Acct: [id number] Name: SUE HAWTHORNE Rep #: [id number] : 1945 F 72 From: Yousif Hathaway MD PCP: Jessica Tanner DO Status: REG CLI Study: Dexa Bone Density Study Date of Exam: 05/12/18 Exam# [id number] Ordering Dr: Jessica Tanner DO ILA DY: [...] Yousif Hathaway MD at 15:14 EDT Tel [phone], Service support , CC: Jessica Tanner DO Clerical And Office Support Workers: Signed 05-May-2018 Orthopedic Visit Report Result: Comments: See Note; NOTES: [facility] [address] [place] [address] OFFICE VISIT Date of Service: 04/25/18 MR#: [id number] Acct: [id number] Name: SUE HAWTHORNE Rep #: [id number] : 1945 Provider: Josemanuel Abreu DO Age/Sex: 72/F Location: [facility] Status: Signed Intake Intake Visit Reasons: LEFT [...] 2 Views Result: Comments: See Note; NOTES: [facility] Imaging Services [address] [place] [place] [address] Shoulder min 2 Views MR#: [id number] Acct: [id number] Name: SUE HAWTHORNE Rep #: [id number] : 1945 F 72 From: Mario Salguero MD PCP: Jessica Tanner DO Status: REG CLI Study: Shoulder min 2 Views Date of Exam: 04/25/18 Exam# [id number] Ordering Dr: Josemanuel Abreu DO STUDY: X-RAY [...] CC: Jessica Tanner DO; Josemanuel Abreu DO Clerical And Office Support Workers: Signed 06-Apr-2018 Orthopedic Visit Report Result: Comments: See Note; NOTES: [facility] [address] [place], [place] [address] OFFICE VISIT Date of Service: 03/28/18 MR#: [id number] Acct: [id number] Name: SUE HAWTHORNE Rep #: [id number] : 1945 Provider: Josemanuel Abreu DO Age/Sex: 72/F Location: [facility] Status: Signed Intake Intake Visit Reasons: LEFT [...] - PT Result: Comments: See Note; NOTES: [facility] Therapy [facility] [address] [place] [address]. [address] [place] [address] Fax REHABILITATION SERVICES INITIAL EVALUATION MR#: [id number] Acct: [id number] Name: SUE HAWTHORNE Rep #: [id number] : 1945 72 From: Violetta Lazcano PT, Cert. MDT Referring Dr.: Josemanuel Abreu DO Status: REG RCR Insurance: MEDICA RE PART A B [facility] Patient's Visit Information SUE HAWTHORNE is a [...] OR CROSS BODY MOVEMENT - SEE THE [facility] REVERSE TOTAL SHOULDER ARTHROPLASTY PROTOCOL IN [...] be FAXED BACK to u s at [phone] for Medicare purposes. Please let me know [...] 2 Views Result: Comments: See Note; NOTES: [facility] Imaging Services [address] [place] [address] Foot 2 Views MR#: [id number] Acct: [id number] Name: SUE HAWTHORNE Rep #: [id number] : F 72 From: Brett Hedrick DO PCP: Jessica Tanner DO Status: REG CLI Study: Foot 2 Views Date of Exam: 03/28/18 Exam# [id number] Ordering Dr: Josemanuel Abreu DO STUDY: X-RAY [...] Brett Hedrick DO at 17:03 EDT Tel [phone], Service support , CC: Jessica Tanner DO; Josemanuel Abreu DO Clerical And Office Support Workers: Signed 28-Mar-2018 Shoulder min 2 Views Result: Comments: See Note; NOTES: [facility] Imaging Services [address] [place] [address] [place] [address] Shoulder min 2 Views MR#: [id number] Acct: [id number] Name: SUE HAWTHORNE Rep #: [id number] : 1945 F 72 From: Brett Hedrick DO PCP: Jessica Tanner DO Status: REG CLI Study: Shoulder min 2 Views Date of Exam: 03/28/18 Exam# [id number] Ordering Dr: Josemanuel Abreu DO STUDY: X-RAY [...] Brett Hedrick DO at 17:02 EDT Tel [phone], Service support , CC: Jessica Tanner DO; Josemanuel Abreu DO Clerical And Office Support Workers: Signed 23-Mar-2018 Orthopedic Visit Report Result: Comments: See Note; NOTES: [facility] [address] [place] [address] OFFICE VISIT Date of Service: 03/11/18 MR#: [id number] Acct: [id number] Name: HERMILA HAWTHORNEKARTHIK Ohara Rep #: [id number] : 1945 Provider: Josemanuel Abreu DO Age/Sex: 72/F Location: [facility] Status: Signed Intake Intake Visit Reasons: LEFT [...] humerus with rout ine healing, subsequent encounter S42.770D Plan Assessment: Left closed 4 part proximal [...] Lead Electrocardiogram Result: Comments: See Note; NOTES: [facility] Cardiovascular Services [address] [place] [address] 12 Lead EKG 03/04/18 1116 MR#: [id number] Acct: [id number] Name: SUE HAWTHORNE Rep #: [id number] : 1945 72 From: Trey Bob MD Attending Dr: Ginny Currie DO Status: PRE [facility] Ordering Dr: Ginny Currie DO Date: 03/04/18 Location: [facility] Sex: F C Admitted: Test Reason : [...] Abnormal ECG Confirmed by TREY BOB ([id number]), general expeditor REA DIAS ([id number]) on 03/08/2018 4:08:06 PM Referred By: Ginny Currie Confirmed By:TREY BOB 03/08/18 1608 Date Trey Bob MD CC: Ginny Currie DO; Jessica Tanner DO Signed 02-Mar-2018 Coronals Sag Multi Obl 3-D Rec Result: Comments: See Note; NOTES: [facility] Imaging Services [address] [place] [address] Coronals Sag Multi Obl 3-D Rec MR#: [id number] Acct: [id number] Name: SUE HAWTHORNE Rep #: [id number] : 1945 F 72 From: Kapil Gonzales MD PCP: Jessica Tanner DO Status: REG CLI Study: Coronals Sag Multi Obl 3-D Rec Date of Exam: 03/02/18 Exam# [id number] Ordering Dr: Nicole Currie DO ADDENDUM by Kapil Gonzales MD on 03/02/[address]/Coronals Sag Multi Obl 3-D Rec IMPRESSION: Impacted, comminuted, mildly displaced, intra-articular fracture of the proxim al humerus involving the neck and tuberosities Nondisplaced fracture at the coracoid process Electronically Signed: Kapil Gonzales MD at 21:56 EDT Tel , Service support [phone], 03/02/18 2471 Date cc: Ginny Currie DO; Jessica Tanner DO * Signed ADDENDUM by Kapil Gonzales MD on 03/02/18 at 2159 ADDENDUM There is nondisplaced fracture at the coracoid (image 17/132 axial). The remainder of the scapula is intact. 03/02/18 215 6 Date cc: Ginny Currie DO; Jessica Tanner DO * Signed STUDY: CT LEFT UPPER EXTREMITY / HUMERUS REASON FOR EXAM: Female, 72 years old. Fracture RADIATION DOSAGE (If Supplied By [facility]): CTDIvol = ( 28.83 ) mGy, DLP [...] CC: Ginny Currie DO; Jessica Tanner DO Clerical And Office Support Workers: Signed 02-Mar-2018 Coronals Sag Multi Obl 3-D Rec Result: Comments: See Note; NOTES: [facility] Imaging Services [address] [place] [address] Coronals Sag Multi Obl 3-D Rec MR#: [id number] Acct: [id number] Name: SUE HAWTHORNE Rep #: [id number] : 1945 F 72 From: Kapil Gonzales MD PCP: Jessica Tanner DO Status: REG CLI Study: Coronals Sag Multi Obl 3-D Rec Date of Exam: 03/02/18 Exam# [id number] Ordering Dr: Nicole Currie DO STUDY: CT [...] Service support , CC: Ginny Tanner DO Clerical And Office Support Workers: Signed 02-Mar-2018 Extremity Upper without Contra Result: Comments: See Note; NOTES: [facility] Imaging Services [address] [place] [address] Extremity Upper without Contra MR#: [id number] Acct: [id number] Name: SUE HAWTHORNE Rep #: [id number] : 1945 F 72 From: Kapil Gonzales MD PCP: Jessica Tanner DO Status: REG CLI Study: Extremity Upper without Contra Date of Exam: 03/02/18 Exam# [id number] Ordering Dr: Nicole Currie DO ADDENDUM by Kapil Gonzales MD on 03/02/[address]/Extremity Upper without Contra IMPRESSION: Impacted, comminuted, mildly displaced, intra-articular fracture of the proxim al humerus involving the neck and tuberosities Nondisplaced fracture at the coracoid process Electronically Signed: Kapil Gonzales MD at 21:56 EDT Tel , Service support [phone], 03/02/183 Date cc: iGnny Currie DO; Jessica Tanner DO * Signed [...] old. Fracture RADIATION DOSAGE (If Supplied By [facility]): CTDIvol = ( 28.83 ) mGy, DLP [...] CC: Ginny Currie DO; Jessica Tanner DO Clerical And Office Support Workers: Signed 02-Mar-2018 Extremity Upper without Contra Result: Comments: See Note; NOTES: [facility] Imaging Services [address] [place] [address] Extremity Upper without Contra MR#: [id number] Acct: [id number] Name: SUE HAWTHORNE Rep #: [id number] : 1945 F 72 From: Kapil Gonzales MD PCP: Jessica Tanner DO Status: REG CLI Study: Extremity Upper without Contra Date of Exam: 03/02/18 Exam# [id number] Ordering Dr: Nicole Currie DO STUDY: CT [...] CC: Ginny Currie DO; Jessica Tanner DO Clerical And Office Support Workers: Signed 01-Mar-2018 Orthopedic Visit Report Result: Comments: See Note; NOTES: [facility]ics [facility] Sports Medicine [address] [place] [address] OFFICE VISIT Date of Service: 02/24/18 MR#: [id number] Acct: [id number] Name: SUE HAWTHORNE Rep #: [id number] : 1945 Provider: Ginny Currie DO Age/Sex: 72/F Location: [facility] Status: Signed Intake Intake Visit Reasons: LEFT [...] proximal end of left humerus, initial encounter S4.430S Plan X-rays were reviewed. There is displaced [...] 3 Views Result: Comments: See Note; NOTES: [facility] Imaging Services [address] [place] [address] Elbow min 3 Views MR#: [id number] Acct: [id number] Name: SUE HAWTHORNE Rep #: [id number] DO B: 1945 F 72 From: Shanell Branch MD PCP: Jessica Tanner DO Status: REG CLI Study: Elbow min 3 Views Date of Exam: 02/24/18 Exam# [id number] Ordering Dr: Ginny Currie DO STUDY: X-RAY [...] CC: Ginny Currie DO; Jessica Tanner DO Clerical And Office Support Workers: Signed 24-Feb-2018 Shoulder min 2 Views Result: Comments: See Note; NOTES: [facility] Imaging Services [address] [place] [address] Shoulder min 2 Views MR#: [id number] Acct: [id number] Name: SUE HAWTHORNE Mayda Rep #: [id number] : 1945 F 72 From: Mario Salguero MD PCP: Jessica Tanner DO Status: REG CLI Study: Shoulder min 2 Views Date of Exam: 02/24/18 Exam# [id number] Ordering Dr: Ginny Currie DO STUDY: X-RAY [...] CC: Ginny Currie DO; Jessica Tanner DO Clerical And Office Support Workers: Signed 20-Feb-2018 Discharge Instruction Result: Comments: See Note; NOTES: [facility] Medical Records Department [address] [place] [address] Discharge Instruction 02/20/18 1358 MR#: [id number] Acct: [id number] Name: ESTRELLITA HAWTHORNE Rep #: [id number] : 1945 72 From: Chelle Zaragoza MD [...] problems, contact your Primary Care Provider. Call [facility] ([phone]) or report to the closest Emergency Room. Call 911 if necessary. 02/20/18 1401 <Electronically signed by Chelle Zaragoza MD&amp ;#62; Date Chelle Zaragoza MD Cosigner Signature (If Indicated): Date CC: Jessica Tanner DO 20-Feb-2018 Emergency Department Summary Result: Comments: See Note; NOTES: [facility] Medical Records Department [address] [place] [address] Emergency Department Summary 02/20/18 1128 MR#: [id number] Acct: [id number] Name: SUE HAWTHORNE Rep #: [id number] : 1945 72 From: Chelle Zaragoza MD [...] mechanical fall This note was generated with [employer] dictation software. It may contain incorrect words, [...] your Primary Care Provider. Call [facility] ([phone]) or report to the closest Emergency Room. Call 911 if necessary. 02/20/18 1356 <Kade lujan signed by Chelle Zaragoza MD> Date Chelle Zaragoza MD Cosigner Signature (If Indicated): Date CC: Jessica Tanner DO 20-Feb-2018 Foot min 3 Views Result: Comments: See Note; NOTES: [facility] Imaging Services [address] [place] [address] Foot min 3 Views MR#: [id number] Acct: [id number] Name: SUE HAWTHORNE Rep #: [id number] : 1945 F 72 From: Rona Bowen MD PCP: Jessica Tanner DO Status: PRE ER Study: Foot min 3 Views Date of Exam: 02/20/18 Exam# [id number] Ordering Dr: Chelle Zaragoza MD STUDY: X-RAY [...] CC: Chelle Zaragoza MD; Jessica Tanner DO Clerical And Office Support Workers: Signed 20-Feb-2018 Shoulder min 2 Views Result: Comments: See Note; NOTES: [facility] Imaging Services [address] [place] [address] Shoulder min 2 Views MR#: [id number] Acct: [id number] Name: SUE HAWTHORNE Rep #: [id number] : 1945 F 72 From: Rona Bowen MD PCP: Jessica Tanner DO Status: PRE ER Study: Shoulder min 2 Views Date of Exam: 02/20/18 Exam# [id number] Ordering Dr: Chelle Zaragoza MD STUDY: X-RAY [...] CC: Chelle Zaragoza MD; Jessica Tanner DO Clerical And Office Support Workers: Signed 22-Feb-2017 Chest PA and Lateral Result: Comments: See Note; NOTES: [facility] Imaging Services [address] [place] [address] Verdana 4d Chest PA and Lateral MR#: [id number] Acct: [id number] Name: SUE HAWTHORNE Rep # : [id number] : 1945 F 71 From: Naomi Strauss MD PCP: Jessica Tanner DO Status: REG CLI Study: Chest PA and Lateral Date of Exam: 02/22/17 Exam# [id number] Ordering Dr: Tamia Wood ILA DY: X-RAY [...] , CC: Tamia Wood; Jessica Tanner DO Clerical And Office Support Workers: Signed 12-Nov-2016 Abdomen/Pelvis WITH Contrast Result: Comments: See Note; NOTES: [facility] Imaging Services [address] [place] [address] Verdana 4d Abdomen/Pelvis WITH Contrast MR#: [id number] Acct: [id number] Name: SUE HAWTHORNE Rep #: [id number] : 1945 F 71 From: Brett Hedrick DO PCP: Doug Barrett Status: REG CLI Study: Abdomen/Pelvis WITH Contrast Date of Exam: 11/12/16 Exam# [id number] Ordering Dr: Doug Barrett ILA DY: CT [...] Brett Hedrick DO at 15:08 EST Tel [phone], Service support [phone], CC: Doug Barrett Clerical And Office Support Workers: Signed 30-Jun-2016 Wrist min 3 Views Result: Comments: See Note; NOTES: [facility] Imaging Services [address] [place] [address] Verdana 4d Wrist min 3 Views MR#: [id number] Acct: [id number] Name: SUE HAWTHORNE Rep #: [id number] : 1945 F 70 From: Omar Salazar MD PCP: Clemencia Ferreira DO Status: REG CLI Study: Wrist min 3 Views Date of Exam: 06/30/16 Exam# [id number] Ordering Dr: Ginny Currie DO STUDY: X-RA [...] CR at 14:28 EDT , Service support [phone], CC: Ginny Currie DO; Clemencia Ferreira DO Clerical And Office Support Workers: Signed 29-May-2016 OT D/C Summary Result: Comments: See Note; NOTES: [facility] Occupational Therapy [facility] 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 Thank you for the referral of this patient. Sincerely, Richelle Myers <Electronically signed by Richelle Myers > 05/29/16 1224 CC: Clemencia Ferreira DO MK Signed 13-May-2016 OT General Evaluation Result: Comments: See Note; NOTES: [facility] Occupational Therapy [facility] [address]. [address] [place], [place] [address] Fax REHABILITATIO N SERVICES INITIAL EVALUATION MR#: [id number] Acct: [id number] Name: SUE HAWTHORNE Rep #: [id number] : 1945 70 From: Richelle Myers Referring [...] Wrist: left 60/65 Right 60/50 - Strength Clinical Cytogeneticist Scientist: left 55# right 60# Lateral Pinch: left [...] to be FAXED BA to us at [phone] for Medicare purposes. Please let me know if there are questions or concerns regarding this plan of care. Physician Signature: ____Date: <Electronically signed by Richelle Myers > 05/13/16 0759 CC: Clemencia Ferreira DO MK Signed For Medicare only, by signing this I certify the plan of care. Physicians Signature Date 08-May-2016 Abdomen WITH IV Contrast Result: Comments: See Note; NOTES: [facility] Imaging Services [address] [place] [address] Verdana 4d Abdomen WITH IV Contrast MR#: [id number] Acct: [id number] Name: SUE LEVIN Rep #: [id number] : 1945 F 70 From: Ba Calvillo MD PCP: Clemencia Ferreira DO Status: REG CLI Study: Abdomen WITH IV Contrast Date of Exam: 05/08/16 Exam# [id number] Ordering Dr: Clemencia Craig DO STUDY: CT [...] MD at 16:42 EDT , Service support [phone], CC: Clemencia Ferreira DO Clerical And Office Support Workers: Signed 05-May-2016 Chest PA and Lateral Result: Comments: See Note; NOTES: [facility] Imaging Services [address] [place] [address] Verdana 4d Chest PA and Lateral MR#: [id number] Acct: [id number] Name: Sussy HAWTHORNE Rep #: [id number] : 1945 F 70 From: Omar Salazar MD PCP: Clemencia Ferreira DO Status: REG CLI Study: Chest PA and Lateral Date of Exam: 05/05/16 Exam# [id number] Ordering Dr: Clemencia Ferreira DO STUDY: X-RAY [...] FACR at 16:55 EDT , Service support [phone], Fax RAD/Chest PA and Lateral IMPRESSION: Normal x-ray examination of the chest. Stable since last examination. Electronically Signed: Omar Salazar MD, FACR 05/05 at 16:55 EDT , Service support [phone], CC: Clemencia Ferreira DO Clerical And Office Support Workers: Signed 31-May-2015 Abdomen WITH and W/O Contrast Result: Comments: See Note; NOTES: [facility] Imaging Services [address] [place] [address] MRI Report MR#: [id number] Acct: [id number] Name: SUE HAWTHORNE Rep #: [id number] D OB: 1945 F 69 From: Phani Davis MD PCP: Clemencia Ferreira DO Status: REG CLI Study: Abdomen WITH and W/O Contrast Date of Exam: 05/31/15 Exam# [id number] Ordering Dr: Clemencia Ferreira DO STUDY: MRI [...] MD at 23:52 EDT , Service support [phone], Fax CC: Clemencia Ferreira DO Clerical And Office Support Workers: Signed 29-May-2015 Dexa Bone Density Study (HP) Result: Comments: See Note; NOTES: [facility] Imaging Services [address] [place] [address] Bone Density Report MR#: [id number] Acct: [id number] Name: SUE HAWTHORNE Rep #: [id number] : 1945 F 69 From: Yousif Hathaway MD PCP: Clemencia Ferreira DO Status: [facility] CLI Study: Dexa Bone Density Study (HP) Date of Exam: 05/29/15 Exam# [id number] Ordering Dr: Clemencia Ferreira DO STUDY: DUAL [...] Yousif Hathaway MD at 15:45 EDT Tel [phone], Service support [phone], CC: Clemencia Ferreira DO Clerical And Office Support Workers: Signed 25-Apr-2015 Liver Result: Comments: See Note; NOTES: [facility] Imaging Services [address] [place] [address] Ultrasound Report MR#: [id number] Acct: [id number] Name: SUE HAWTHORNE Rep #: [id number] : 1945 F 69 From: Naomi Strauss MD PCP: Clemencia Ferreira DO Status: REG CLI Study: Liver Date of Exam: 04/25/15 Exam# [id number] Ordering Dr: Clemencia Ferreira DO STUDY: ABDOMINAL [...] 1 1:49 EDT Tel , Service support [phone], CC: Clemencia Ferreira DO Clerical And Office Support Workers: Signed 18-Apr-2015 Foot min 3 Views Result: Comments: See Note; NOTES: [facility] Imaging Services [address] [place] [address] Radiology Report MR#: [id number] Acct: [id number] Name: SUE HAWTHORNE Rep #: [id number] : 1945 F 69 From: Shanell Branch MD PCP: Clemencia Ferreira DO Status: REG CLI Study: Foot min 3 Views Date of Exam: 04/18/15 Exam# [id number] Ordering Dr: Ginny Currie DO STUDY: X-RAY [...] MD at 14:31 EDT , Service support [phone], RAD/Foot min 3 Views IMPRESSION: Stable arthrosis with calcaneal spurs. Near-anatomic alignment of the base of the fifth metatarsal fracture with no complications. Electronically Signed: Shanell Branch MD at 14:31 EDT , Service support [phone], CC: Ginny Currie DO; Clemencia Ferreira DO Clerical And Office Support Workers: Signed 12-Mar-2015 Foot min 3 Views Result: Comments: See Note; NOTES: [facility] Imaging Services [address] [place] [address] Radiology Report MR#: [id number] Acct: [id number] Name: SUE HAWTHORNE Rep #: [id number] : 1945 F 69 From: Shanell Branch MD PCP: Clemencia Ferreira DO Status: REG CLI Study: Foot min 3 Views Date of Exam: 03/12/15 Exam# [id number] Ordering Dr: Ginny Currie DO STUDY: X-RAY [...] 03/12 at 15:44 EDT , Service support [phone], CC: Ginny Ferreira DO Clerical And Office Support Workers: Signed 15-Feb-2015 Emergency Department Summary Result: Comments: See Note; NOTES: [facility] Medical Records Department [address] [place] [address] Emergency Department Summary MR#: [id number] Acct: [id number] Name: Sussy HAWTHORNE Rep #: [id number] : 1945 69 From: Stephany Francois DO [...] patient also sees an orthopedic surgeon in [place]. A LLERGIES: No known drug allergies. SOCIAL [...] a postoperative shoe, given crutches, script for [place] for pain, instructed to ice and elevate the extremity. Follow up with her orthopedic surgeon or Dr. Currie at the patient's request. DISPOSITION: Disch arged to home in stable condition. Stephany Francois DO T: NTS JOB: [id number] 02/15/15 1039 <Electronically signed by Stephany Francois DO> Date Stephany Francois DO CC: Clemencia Ferreira DO Date Dictated: 02/05/151752 Date Transcribed: 02/05/151752 Clerical And Office Support Workers: Signed 12-Feb-2015 Foot min 3 Views Result: Comments: See Note; NOTES: [facility] Imaging Services [address] [place] [address] Radiology Report MR#: [id number] Acct: [id number] Name: SUE HAWTHORNE Rep #: [id number] : 1945 F 69 From: Sohan Castaneda MD PCP: Clemencia Ferreira DO Status: REG CLI Study: Foot min 3 Views Date of Exam: 02/12/15 Exam# [id number] Ordering Dr: Ginny Currie DO STUDY: X-RAY [...] at 11:36 EDT Tel , Service support [phone], RAD/Foot min 3 Views IMPRESSION: 1. Fracture of the b ase of the fifth metatarsal bone, unchanged. 2. Degenerative changes. Electronically Signed: Sohan Castaneda MD at 11:36 EDT Tel , Service support [phone], Fax CC: Ginny Currie DO; Clemencia Ferreira DO Clerical And Office Support Workers: Signed 05-Feb-2015 Discharge Instruction Result: Comments: See Note; NOTES: [facility] Medical Records Department [address] [place] [address] Discharge Instruction 02/05/15 175 MR#: [id number] Acct: [id number] Name: SUE HAWTHORNE Rep #: [id number] : 1945 69 From: Stephany Francois DO PCP: Clemencia Ferreira DO Status: PRE ER ED Disposition - Plan for ED Patient: Chief Complaint: Lower Extremity Injury Instruc tions: ED Fracture, Foot Prescriptions: Hydrocodone Bitart/Apap 5-325 [[place] 5/325] 1 - 2 tablet PO Q4H [...] 3 Views Result: Comments: See Note; NOTES: [facility] Imaging Services [address] [place] [address] Radiology Report MR#: [id number] Acct: [id number] Name: SUE HAWTHORNE Rep #: [id number] : 1945 F 69 From: Yousif Hathaway MD PCP: Clemencia Ferreira DO Status: DEP ER Study: Foot min 3 Views Date of Exam: 02/05/15 Exam# [id number] Ordering Dr: Malachi Sena STUDY: X-RAY - [...] Yousif Hathaway MD at 8:47 EDT Tel [phone], Service support [phone], CC: Clemencia Ferreira DO; ED PHYSICIAN PROVIDER Clerical And Office Support Workers: Signed 07-Jun-2014 Liver Result: Comments: See Note; NOTES: [facility] Imaging Services [address] [place] [address] Ultrasound Report MR#: [id number] Acct: [id number] Name: SUE HAWTHORNE Rep #: [id number] : 1945 F 68 From: Yousif Hathaway MD PCP: Clemencia Ferreira DO Status: REG CLI Study: Liver Date of Exam: 06/07/14 Exam# [id number] Ordering Dr: Clemencia Ferreira DO STUDY: ABDOMINAL [...] Yousif Hathaway MD at 10:40 EDT Tel [phone], Service support , CC: Clemencia Ferreira DO Clerical And Office Support Workers: Signed Immunization Name Dates Details Influenza (3 years and up) on: 02-Sep-2007 Influenza (3 years and up) on: 07-Sep-2008 Comments: Lot #:[id number] date:04/16Amount given:0.5mlRoute: IMSite given:left delGiven by: BEBA Higgins Influenza (3 years and up) on: 05-Aug-2009 Comments: Lot #:[id number] date:mount given:0.5mlRoute: IMSite given:left deltGiven by: BEBA [...] smoker Vital Signs Date Test Result Details 8-Wym-376208:55 Temperature 97.2 f Comments: Method: Temporal Pulse [...] kg/m2 Body Surface Area Calculated 1.86 m2 37-Djs-721514:12 Pulse 73 /min Comments: Pattern: Regular Respiration [...] kg/m2 Body Surface Area Calculated 1.86 m2 54-Wvs-09439:50 Comments: orthos 144/89021/51589/78 Temperature 97.2 f Pulse 79 /min Comments: [...] kg/m2 Body Surface Area Calculated 1.86 m2 10-Hnz-412232:10 Comments: Dr. Majano and had a glaucoam [...] kg/m2 Body Surface Area Calculated 1.86 m2 9-Ist-968758:08 Pulse 70 /min Comments: Pattern: Regular Respiration [...] kg/m2 Body Surface Area Calculated 1.85 m2 09-Kwd-507756:24 Pulse 78 /min Comments: Pattern: Regular Respiration [...] kg/m2 Body Surface Area Calculated 1.85 m2 9-Vnf-827498:00 Pulse 79 /min Comments: Pattern: Regular Respiration [...] Height 0 in Head Circumference 0.00 cm 25-Hdr-244994:36 Temperature 97.1 f Comments: Method: Oral Pulse [...] Description Value Details :56 HgA1C , Office (15016) HgA1C , Office 5.5 % (Normal) Range: 4.6 - 7.1 4-Xis-208804:56 Blood Glucose , Office (83285) Blood Glucose , Office 86 (Normal) C difficile Toxins A+B, Negative (Normal) Comments: PATIENT NOT FASTINGPERFORMED BY: [employer] MDC Telecomox [facility]iaAt[facility] [id number] Information: [id number] 5:32 EIA NTI Miscellaneous COMMNT (Normal) Comments: PATIENT NOT FASTINGPERFORMED BY: retsCloud MDC Telecomox [facility]brosiaAt[facility] [id number] 5:32 Comments: Test not indicated.. Written Authorization WAR (Normal) Comments: PATIENT NOT FASTINGPERFORMED BY: [employer] Uzfwfa8568 [place] PetbrosiaAtrium [facility] [id number] 5:32 Comments: Written Authorization Received.Authorization received from Original requisition [id number] by Wednesday [facility] 53-Mtb-544037:31 OCCULT BLOOD FECES Comments: PATIENT NOT FASTINGPERFORMED BY: [employer] Tkyhge3077 [place]guero OnQueue TechnologiesAtrium Health [facility] [id number] Information: SRC:STOOL = FECAL [id number] SCREEN (22851) Occult Blood, Fecal, IA Negative (Normal) 77-Xfa-748696:32 OVA & PARASITE DIR SMEAR Comments: PATIENT NOT FASTINGPERFORMED BY: [employer] Meltjz8980 [facility] [id number] (82616) Result 1 NOCP (Normal) Comments: No ova, cysts, or parasites seen. Ova + Parasite Exam Final report (Normal) Comments: These results were obtained using wet preparation(s) and trichromestained smear. This test does not include testing for Cryptosporidiumparvum, Cyclospora, or Microsporidia. 60-Qlj-078520:32 LEUKOCYTE COUNT, FECAL Comments: PATIENT NOT FASTINGPERFORMED BY: [employer] Acbwjk5626 [facility] [id number] (59789) Result 1 WCM (Abnormal) Comments: Moderate amount of white blood cells. White Blood Cells (WBC), Final report (Abnormal) Stool 00-Tpk-230702:32 WON CULTURE-STOOL (46216) Comments: PATIENT NOT FASTINGPERFORMED BY: [employer] Jrcnys5359 [facility] [id number] Information: [id number] E coli Shiga Toxin EIA Negative (Normal) Result 1 NCI (Normal) Comments: No Campylobacter species isolated. Campylobacter Culture Final report (Normal) Result 1 NSS (Normal) Comments: No Salmonella or Shigella recovered. Salmonella/Shigella Screen Final report (Normal) 9-Rtz-347135:10 Blood Glucose , Office (08825) Blood Glucose , Office 79 (Normal) 5-Gnj-904962:10 HgA1C , Office (77042) HgA1C , Office 5.3 % (Normal) Range: 4.6 - 7.1 1-Ixn-515785:02 CBC With Differential/Platelet Comments: PATIENT WAS FASTINGPERFORMED BY: QuanDxN[facility] Jthond6404 [facility] [id number] Immature Grans (Abs) 0.0 {x10E3/uL} (Normal) Range: [...] 3.77-5.28 WBC 6.3 {x10E3/uL} (Normal) Range: 3.4-10.8 5-Wgf-210975:02 Comp. Metabolic Panel (14) Comments: PATIENT WAS FASTINGPERFORMED BY: LabCoHealthSouth - [facility] RiverVrspxp3945 [facility] [id number] ALT (SGPT) 12 [iU]/L (Normal) Range: 0-32 [...] 8-27 Glucose 92 mg/dL (Normal) Range: 65-99 7-Hoe-651423:02 Lipid Panel With LDL/HDL Comments: PATIENT WAS FASTINGPERFORMED BY: Vedicis [facility] [id number]; ov 6/7 Ratio LDL/HDL Ratio 1.5 {ratio} [...] 3.240 {uIU/mL} Comments: PATIENT WAS FASTINGPERFORMED BY: Vedicis [facility] [id number] 02 (Normal) Range: 0.450-4.500 75-Bkk-269706:54 CBC-Complete Blood Cnt No Diff Comments: [facility] [address] [place], [place], [address] MPV 9.2 fL (Normal) Range: 6.2-12.0 PLT [...] 4.2-5.4 WBC 6.8 K/mm3 (Normal) Range: 4.4-11.0 7-Lye-760957:28 HgA1C , Office (27844) HgA1C , Office 5.3 % (Normal) Range: 4.6 - 7.1 8-Isj-335185:28 Blood Glucose , Office (70867) Blood Glucose , Office 93 (Normal) 15-Hjq-629610:26 Microscopic Examination Comments: PATIENT WAS FASTINGPERFORMED BY: DibbzAtrium Health [facility] [id number] Bacteria None seen (Normal) Mucus Threads Present (Normal) Crystal Type Calcium Oxalate (Normal) Crystals Present (Abnormal) Cast Type Hyaline casts (Normal) Casts Present {/lpf} (Abnormal) Epithelial Cells (non renal) None seen {/hpf} (Normal) Range: 0 - 10 RBC None seen {/hpf} (Normal) Range: 0 - 2 WBC 0-5 {/hpf} (Normal) Range: 0 - 5 59-Rsr-312291:26 TSH (84322) Comments: PATIENT WAS FASTINGPERFORMED BY: iPharro Media70 fos4XAtrium Health [facility] [id number] TSH 3.380 {uIU/mL} (Normal) Range: 0.450-4.500 50-Wxf-050906:26 URINALYSIS, W/ MICRO (83896) Comments: PATIENT WAS FASTINGPERFORMED BY: Vedicis Salguero OnQueue TechnologiesAtrium Health [facility] [id number] Microscopic Examination See below: (Normal) Comments: Microscopic was indicated and was performed. Microscopic Examination MICRON (Normal) Comments: Microscopic follows if indicated. Nitrite, Urine Negative (Normal) Urobilinogen,Semi-Qn 0.2 mg/dL (Normal) Range: 0.2-1.0 Bilirubin Negative (Normal) Occult Blood Negative (Normal) Ketones Negative (Normal) Glucose Negative (Normal) Protein Negative (Normal) WBC Esterase Negative (Normal) Appearance Clear (Normal) Urine-Color Yellow (Normal) pH 5.0 (Normal) Range: 5.0-7.5 Specific Pinckney 1.025 (Normal) Range: 1.005-1.030 37-Rvo-219880:26 MICROALBUMIN: CREATININE RATIO Comments: PATIENT WAS FASTINGPERFORMED BY: [employer]70 [facility] [id number] (21660) AND (25694) Microalb/Creat Ratio 5.4 {mg/g_creat} (Normal) Range: 0.0-30.0 Creatinine, Urine 222.5 mg/dL (Normal) Microalbumin, Urine 12.1 ug/mL (Normal) 26-Xzq-849773:26 METABOLIC PANEL, COMPREHENSIVE Comments: PATIENT WAS FASTINGPERFORMED BY: [employer]70 [place]guero [facility] [id number] (33789) ALT (SGPT) 38 [iU]/L (Abnormal) Range: 0-32 [...] Glucose, Serum 94 mg/dL (Normal) Range: 65-99 19-Ymp-148027:26 LIPID PANEL (06970) Comments: PATIENT WAS FASTINGPERFORMED BY: [employer]70 fos4XAtrium Health [facility] [id number] LDL/HDL Ratio 1.6 {ratio_units} (Normal) Range: 0.0-3.2 Comments: LDL/HDL Ratio Men Women 1/2 Avg.Risk 1.0 1.5 Av g.Risk 3.6 3.2 2X Avg.Risk 6.2 5.0 3X Avg.Risk 8.0 6.1 LDL Cholesterol Calc 104 mg/dL (Abnormal) Range: 0-99 VLDL Cholesterol Sumeet 28 mg/dL (Normal) Range: 5-40 HDL Cholesterol 66 mg/dL (Normal) Triglycerides 139 mg/dL (Normal) Range: 0-149 Cholesterol, Total 198 mg/dL (Normal) Range: 100-199 41-Zux-559123:26 CBC W/AUTO DIFF WBC (42922) Comments: PATIENT WAS FASTINGPERFORMED BY: makr6370 fos4XAtrium Health [facility] [id number] Immature Grans (Abs) 0.0 {x10E3/uL} (Normal) Range: [...] Range: 3.4-10.8 :22 Blood Glucose , Office (34496) Blood Glucose , Office 102 (Normal) 5-Npm-561335:22 HgA1C , Office (13968) HgA1C , Office 5.5 % (Normal) Range: 4.6 - 7.1 15-Apr-20178:00 Pathology Report Comments: PERFORMED BY: [facility] [address] [place] Cyto Igrov97000 [facility] [id number] BY: [facility] Dermatopathology Bfcjzfz098 [address] [id number] Information: [id number] See MATER Comments: Material submitted: .RIGHT ARM [...] IN CASSETTE(S) A./LMSLMS/LMSPathologist p rovided ICD-10:L44.9, D23.61CPT .745612 15-Mhq-330797:27 LIPID PANEL (17873) Comments: PATIENT WAS FASTINGPERFORMED BY: [facility] Dcurhn8917 [facility] [id number] LDL/HDL Ratio 1.5 {ratio_units} (Normal) Range: 0.0-3.2 Comments: LDL/HDL Ratio Men Women 1/2 Avg.Risk 1.0 1.5 Av g.Risk 3.6 3.2 2X Avg.Risk 6.2 5.0 3X Avg.Risk 8.0 6.1 LDL Cholesterol Calc 101 mg/dL (Abnormal) Range: 0-99 VLDL Cholesterol Sumeet 18 mg/dL (Normal) Range: 5-40 HDL Cholesterol 69 mg/dL (Normal) Triglycerides 90 mg/dL (Normal) Range: 0-149 Cholesterol, Total 188 mg/dL (Normal) Range: 100-199 2-Kwi-607387:45 HgA1C , Office (66041) HgA1C , Office 5.4 % (Normal) Range: 4.6 - 7.1 3-Ozv-734287:45 Blood Glucose , Office (14296) Blood Glucose , Office 86 (Normal) :0 C difficile Toxins Negative (Normal) Comments: PATIENT NOT FASTINGPERFORMED BY: QuanDxMcl[facility] Hospital6370 [facility] [id number] 5 A+B, EIA :05 Giardia, EIA, Ova/Parasite Comments: PATIENT NOT FASTINGPERFORMED BY: LabNev[facility] Kicdsx6817 [facility] [id number] Giardia lamblia Ag, Negative (Normal) EIA Result 1 NOCP (Normal) Comments: No ova, cysts, or parasites seen. Ova + Parasite Exam Final report Comments: These results were obtained using wet preparation(s) and trichromestained smear. This test does not include testing for Cryptosporidiumparvum, Cyclospora, or Microsporidia. (Normal) :0 Occult Blood, Fecal, Negative (Normal) Comments: PATIENT NOT FASTINGPERFORMED BY: [facility] Rtsmbn1449 [facility] [id number] 5 IA 07-Jan-20171:05 Stool Culture Comments: PATIENT NOT FASTINGPERFORMED BY: [facility]6370 [facility] [id number] Information: SRC:ST SRC:ST E coli Shiga Toxin EIA Negative (Normal) Result 1 NCI (Normal) Comments: No Campylobacter species isolated. Campylobacter Culture Final report (Normal) Result 1 NSS (Normal) Comments: No Salmonella or Shigella recovered. Salmonella/Shigella Screen Final report (Normal) :05 White Blood Cells (WBC), Comments: PATIENT NOT FASTINGPERFORMED BY: LabN[facility] Kcunpg5580 [facility] [id number] Stool Result 1 NWBC (Normal) Comments: No white blood cells seen. White Blood Cells (WBC), Final report (Normal) Stool 1-Asu-396798:00 CBC W/AUTO DIFF WBC (08309) Comments: PATIENT NOT FASTINGPERFORMED BY: LabN[facility] Lvncwh3305 [facility] [id number] Immature Grans (Abs) 0.0 {x10E3/uL} (Normal) Range: [...] 3.77-5.28 WBC 5.7 {x10E3/uL} (Normal) Range: 3.4-10.8 14-Wex-676465:54 AFP, Tumor Marker Comments: Is Patient ? [facility] (refer to report for specific site)refer to report for address and phone number AFP TUMOR 2253 9.5 ng/mL (Abnormal) Range: 0.0-8.3 Comments: Izaiah ECLIA methodologyPerformed at: - [facility] [id number] Director: Zander Saunders PhD, Phone: [phone] 38-Yrv-762849:28 MICROALBUMIN: CREATININE RATIO Comments: PATIENT WAS FASTINGPERFORMED BY: retsCloud[address] [id number] (10583) AND (29066) Microalb/Creat Ratio 11.8 {mg/g_creat} (Normal) Range: 0.0-30.0 Microalbumin, Urine 27.0 ug/mL (Normal) Creatinine, Urine 229.1 mg/dL (Normal) 01-Rgb-635423:28 CALCIFEDIOL (75010) Comments: PATIENT WAS FASTINGPERFORMED BY: [facility] Chgjaa9814 [facility] [id number] Vitamin D, 25-Hydroxy 49.4 ng/mL (Normal) Range: 30.0-100.0 Comments: Vitamin D deficiency has been defined by the [place] ofMedicine and an Endocrine Society practice guideline as alevel of serum 25-OH vitamin D less than 20 ng/mL (1,2).The Endocrine Society went on to further define vitamin Dinsufficiency as a level between 21 and 29 ng/mL (2).1. IOM ([place] of Medicine). 2010. Dietary reference intakes for calcium and D. [place]: The National Academies Press.2. Hannah MF, Hilda SONG, Cindy FREED, et al. Evaluation, treatment, and prevention of vitamin D deficiency: an Endocrine Society clinical practice guideline. JCEM. 2010; 96(7):1911-30. 67-Cgf-008055:28 TSH (THYROID STIMULATING Comments: PATIENT WAS FASTINGPERFORMED BY: makr6370 [facility] [id number] HORMONE) (81716) TSH 2.320 {uIU/mL} (Normal) Range: 0.450-4.500 76-Zlg-356465:28 LIPID PANEL (23351) Comments: PATIENT WAS FASTINGPERFORMED BY: [facility] Isobeg4359 [facility] [place] [id number] LDL/HDL Ratio 1.2 {ratio_units} (Normal) Range: 0.0-3.2 Comments: LDL/HDL Ratio Men Women 1/2 Avg.Risk 1.0 1.5 Av g.Risk 3.6 3.2 2X Avg.Risk 6.2 5.0 3X Avg.Risk 8.0 6.1 LDL Cholesterol Calc 95 mg/dL (Normal) Range: 0-99 VLDL Cholesterol Sumeet 25 mg/dL (Normal) Range: 5-40 HDL Cholesterol 79 mg/dL (Normal) Triglycerides 126 mg/dL (Normal) Range: 0-149 Cholesterol, Total 199 mg/dL (Normal) Range: 100-199 74-Gfb-745327:28 METABOLIC PANEL, COMPREHENSIVE Comments: PATIENT WAS FASTINGPERFORMED BY: [employer]70 [place]gu[place] [facility] [id number] (01574) ALT (SGPT) 16 [iU]/L (Normal) Range: 0-32 [...] Glucose, Serum 99 mg/dL (Normal) Range: 65-99 39-Hos-775602:28 CBC, PLATELETS & AUT DIFF Comments: PATIENT WAS FASTINGPERFORMED BY: LabA.P.Pharma Qaeigr2668 [facility] [id number]; fu 03/11 KF (28648) Immature Grans (Abs) 0.0 {x10E3/uL} (Normal) Range: [...] (Normal) Range: 3.4-10.8 :51 HgA1C , Office (71587) HgA1C , Office 5.5 % (Normal) Range: 4.6 - 7.1 :51 Blood Glucose , Office (72012) Blood Glucose , Office 91 (Normal) 6-Lef-241375:11 Serum Creatinine AND GFR Comments: STAT!!![facility] [address] [place], [place], [address] EST GFR - AA 91 mL/min (Normal) Comments: GFR Calc EST GFR 76 mL/min (Normal) Comments: Non- GFR Calc CREAT,SERUM 0.80 mg/dL (Normal) Range: 0.55-1.02 Comments: The validity of the calculated GFR AND GFRAA in patients over70 years has not been determined. Clinical correlation isessential. 0-Thm-301029:05 AFP, Tumor Marker Comments: Is Patient ? [facility] (refer to report for specific site)refer to report for address and phone number AFP TUMOR 2253 10.2 ng/mL (Abnormal) Range: 0.0-8.3 Comments: [facility] ECLIA methodologyPerformed at: [facility] [address] [id number] Director: Zander Saunders PhD, Phone: [phone] CBC W/Diff, Automated Comments: [facility] Iexgbdlraj[address] [place], [place], [id number] Absolute Lymph 1.56 {X10_3/ul} (Normal) Range: 0.83-4.51 [...] 4.2-5.4 WBC 5.0 K/mm3 (Normal) Range: 4.4-11.0 4-Xha-000140:05 Comprehensive Metabolic Profil Comments: Is Patient Taking Vitamins or Folic Acid Supplements? [facility] [address]vzeft[address] [place], [address] GAP 8 (Normal) Range: 5-15 CO2 29.0 [...] 7-18 GLU 91 mg/dL (Normal) Range: 70-110 1-Tiu-135108:05 Folates, (Folic Acid) Comments: Is Patient Taking Vitamins or Folic Acid Supplements? [facility] [address]fdwtrepc[address] [place], [address] FOLATES 37.50 ng/mL (Abnormal) Range: 3.1-17.5 0-Pnl-452659:05 Lipid Profile Comments: Is Patient Taking Vitamins or Folic Acid Supplements? [facility] Z[address]yllbghp[address] [place], [address] VLDL 36 [...] 200-240 mg/dL Borderline >240 mg/dL High Risk 6-Zex-759276:05 Thyroid Stim Hormone (TSH) Comments: Is Patient Taking Vitamins or Folic Acid Supplements? [facility] [address] [place], [address] TSH 1.94 {uIU/mL} (Normal) Range: 0.358-3.74 9-Aey-244162:05 Vitamin B12 668 pg/mL (Normal) Comments: [facility] Nfwylylsap4825 [place], [address] Range: 211-911 1-Fqk-031117:05 Vitamin D,25 Hydroxy Comments: [facility] [address]xnt[address] [place], [address] Vitamin D 25-OH 38.6 ng/mL (Normal) Comments: Vitamin D 25(OH) Status Range Deficiency <20 ng/mL (50nmol/L) Insuffciency 20 - 30 ng/mL (50 - 75 nmol/L) Sufficiency 30 - 100 ng/mL (75 - 250 nmol/L) Toxicity >100 ng/mL (>250 nmol/L) :38 HgA1C , Office (96604) HgA1C , Office 5.3 % (Normal) Range: 4.6 - 7.1 :38 Blood Glucose , Office (36217) Blood Glucose , Office 89 (Normal) :48 MICROALBUMIN: CREATININE RATIO Comments: PATIENT NOT FASTINGPERFORMED BY: ScodixHealthSouth - [facility] Toms RiverMawsiq1000 [facility] [id number] (85634) AND (63982) Microalb/Creat Ratio 3.2 {mg/g_creat} (Normal) Range: 0.0-30.0 Microalbumin, Urine 3.8 ug/mL (Normal) Creatinine, Urine 119.1 mg/dL (Normal) :48 CBC W/AUTO DIFF WBC Comments: PATIENT NOT FASTINGPERFORMED BY: BERE [facility]Co Httjcp5791 [facility] [id number] Information: [id number] PT HAD COFF EE WITH CREAM (02879) Immature Grans (Abs) 0.0 {x10E3/uL} (Normal) Range: [...] {x10E3/uL} (Normal) Range: 3.4-10.8 :48 LIPID PANEL (67523) Comments: PATIENT NOT FASTINGPERFORMED BY: retsCloud Vgwpny5025 SalgueroMizhe.comAtrium Health [facility] [id number] LDL/HDL Ratio 1.7 {ratio_units} (Normal) Range: 0.0-3.2 [...] PANEL, COMPREHENSIVE Comments: PATIENT NOT FASTINGPERFORMED BY: retsCloud Fgnvni9709 [place] [facility] [id number] (16902) ALT (SGPT) 13 [iU]/L (Normal) Range: 0-32 [...] Serum 86 mg/dL (Normal) Range: 65-99 :48 XJEHX-ETJZNKYJFJZ-QVYOO (84250) Comments: PATIENT NOT FASTINGPERFORMED BY: makr6370 fos4XAtrium Health [facility] [id number] AFP, Serum, Tumor Marker 9.5 ng/mL (Abnormal) Range: 0.0-8.3 Comments: Izaiah ECLIA methodology :11 HgA1C , Office (73280) HgA1C , Office 5.4 % (Normal) Range: 4.6 - 7.1 :11 HgA1C , Office (01795) HgA1C , Office 5.5 % (Normal) Range: 4.6 - 7.1 :37 LIPID PANEL (06813) Comments: PATIENT WAS FASTINGPERFORMED BY: makr6370 [place] [facility] [id number] LDL/HDL Ratio 1.8 {ratio_units} (Normal) Range: 0.0-3.2 [...] Cholesterol, Total 255 mg/dL (Abnormal) Range: 100-199 13-Pwr-461520:37 METABOLIC PANEL, Comments: PATIENT WAS FASTINGPERFORMED BY: LabCoHealthSouth - [facility] Toms RiverZszlfc0468 [facility] [id number] Information: [id number] COMPREHENSIVE (63628) ALT (SGPT) 15 [iU]/L (Normal) Range: 0-32 [...] Glucose, Serum 91 mg/dL (Normal) Range: 65-99 65-Ovz-455422:37 DXUOX-QYUDMJLYQBS-EFVOK (98694) Comments: PATIENT WAS FASTINGPERFORMED BY: [facility] [id number] AFP, Serum, Tumor Marker 10.1 ng/mL (Abnormal) Range: 0.0-8.3 Comments: Izaiah ECLIA methodology :54 HWLXP-ZMAQGBKRUKI-ZLIST (84562) Comments: 2 months; PATIENT NOT FASTINGPERFORMED BY: [address] [id number] Information: [id number] AFP, Serum, Tumor Marker 10.3 ng/mL (Abnormal) Range: 0.0-8.3 Comments: Izaiah ECLIA methodology 7-Qtx-050547:04 HgA1C , Office (15671) HgA1C , Office 5.9 % (Normal) Range: 4.6 - 7.1 :00 Serum Creatinine AND GFR Comments: Test performed at:[facility] [address] [place], [place] [address] EST GFR - AA 81 mL/min (Normal) EST GFR 67 mL/min (Normal) CREAT,SERUM 0.89 mg/dL (Normal) Range: 0.55-1.20 Comments: Please note revised CREATININE reference range dbpvwykze92/22/2015. 92-Riv-494455:19 CBC with auto diff Comments: PATIENT WAS FASTINGPERFORMED BY: [address] [id number] Information: [id number] (70252) Immature Grans (Abs) 0.0 {x10E3/uL} (Normal) Range: [...] 3.77-5.28 WBC 5.5 {x10E3/uL} (Normal) Range: 3.4-10.8 55-Mcn-572962:19 MICROALBUMIN: CREATININE RATIO Comments: PATIENT WAS FASTINGPERFORMED BY: Vedicis [facility] [id number] (65485) AND (34740) Microalb/Creat Ratio <3.5 {mg/g_creat} (Normal) Range: 0.0-30.0 Microalbumin, Urine <3.0 ug/mL (Normal) Range: 0.0-17.0 Creatinine, Urine 85.8 mg/dL (Normal) Range: 15.0-278.0 17-Rjc-226515:19 METABOLIC PANEL, COMPREHENSIVE Comments: PATIENT WAS FASTINGPERFORMED BY: Vedicis [facility] [id number] (00434) ALT (SGPT) 11 [iU]/L (Normal) Range: 0-32 [...] Glucose, Serum 94 mg/dL (Normal) Range: 65-99 89-Lmk-043688:19 LIPID PANEL (83535) Comments: PATIENT WAS FASTINGPERFORMED BY: [facility]Co[facility] RiverXiqvju4592 [facility] [id number] LDL/HDL Ratio 1.8 {ratio_units} (Normal) Range: 0.0-3.2 [...] Cholesterol, Total 230 mg/dL (Abnormal) Range: 100-199 32-Yeb-140444:19 ARZDG-ZISRAPJRTOS-AXMND (82970) Comments: PATIENT WAS FASTINGPERFORMED BY: [facility]ixHealth[facility] RiverAnhcit2748 [facility] [id number] AFP, Serum, Tumor Marker 9.4 ng/mL (Abnormal) Range: 0.0-8.3 Comments: Izaiah ECLIA methodology :33 HgA1C , Office (30884) HgA1C , Office 5.9 % (Normal) Range: 4.6 - 7.1 AFP, Serum, Tumor 8.6 ng/mL (Abnormal) Comments: PATIENT WAS FASTINGPERFORMED BY: [facility] RiverYuyirv2423 [facility] [id number] :02 Marker Range: 0.0-8.3 Comments: Izaiah ECLIA methodology :02 CBC With Differential/Platelet Comments: PATIENT WAS FASTINGPERFORMED BY: [facility] RiverBgmzqf8400 [facility] [id number] Information: [id number] Immature Grans (Abs) 0.0 {x10E3/uL} (Normal) Range: [...] 3.77-5.28 WBC 5.1 {x10E3/uL} (Normal) Range: 3.4-10.8 84-Ioe-634802:02 Comp. Metabolic Panel (14) Comments: PATIENT WAS FASTINGPERFORMED BY: [facility]Co[facility] RiverDdwmiy8748 [facility] [id number] ALT (SGPT) 16 [iU]/L (Normal) Range: 0-32 [...] Glucose, Serum 84 mg/dL (Normal) Range: 65-99 37-Hpc-945698:02 Lipid Panel With LDL/HDL Comments: PATIENT WAS FASTINGPERFORMED BY: [facility] [id number] Ratio LDL/HDL Ratio 1.7 {ratio_units} Range: 0.0-3.2 [...] (Normal) Comments: PATIENT WAS FASTINGPERFORMED BY: [facility] [id number] 13:02 Range: 0.450-4.500 84-Coi-24307:47 HgA1C , Office (06413) HgA1C , Office 5.6 % (Normal) Range: 4.6 - 7.1 2-Flc-710080:12 PMEEF-BFMAAALJPOE-UKQTM (40643) Comments: PATIENT NOT FASTINGPERFORMED BY: [facility] [id number] AFP, Serum, Tumor Marker 9.2 ng/mL (Abnormal) Range: 0.0-8.3 Comments: Izaiah ECLIA methodology 2-Cft-051795:12 CBC W/AUTO DIFF WBC Comments: PATIENT NOT FASTINGPERFORMED BY: [place] [address]17570 [facility] [id number] Information: [id number] (83867) Immature Grans (Abs) 0.0 {x10E3/uL} (Normal) Range: [...] 3.77-5.28 WBC 7.3 {x10E3/uL} (Normal) Range: 3.4-10.8 9-Vuc-177027:12 METABOLIC PANEL, COMPREHENSIVE Comments: PATIENT NOT FASTINGPERFORMED BY: [facility]Co[facility] T[facility] RiverImzknj1647 [facility] [id number] (81125) ALT (SGPT) 15 [iU]/L (Normal) Range: 0-32 [...] Glucose, Serum 84 mg/dL (Normal) Range: 65-99 6-Gxw-791790:12 LIPID PANEL (99410) Comments: PATIENT NOT FASTINGPERFORMED BY: [facility]Co[facility] RiverObvxvs9535 [facility] [id number] LDL/HDL Ratio 1.3 {ratio_units} (Normal) Range: 0.0-3.2 [...] Cholesterol, Total 199 mg/dL (Normal) Range: 100-199 02-Iuh-449347:05 HgA1C , Office (32367) HgA1C , Office 5.8 % (Normal) Range: 4.6 - 7.1 8-Bpm-382038:21 HVZIP-BKYNHULASNH-AAEUM (29172) Comments: get us of liver; PATIENT WAS FASTINGPERFORMED BY: Vedicis [facility] [id number] AFP, Serum, Tumor Marker 8.6 ng/mL (Abnormal) Range: 0.0-8.3 Comments: Izaiah ECLIA methodology 0-Ift-232082:21 MICROALBUMIN: CREATININE RATIO Comments: PATIENT WAS FASTINGPERFORMED BY: Vedicis [facility] [id number] (17222) AND (42239) Microalb/Creat Ratio 7.2 {mg/g_creat} (Normal) Range: 0.0-30.0 Microalbumin, Urine 12.4 ug/mL (Normal) Range: 0.0-17.0 Creatinine, Urine 173.3 mg/dL (Normal) Range: 15.0-278.0 :21 LIPID PANEL (83033) Comments: PATIENT WAS FASTINGPERFORMED BY: [employer]70 [facility] [id number] LDL/HDL Ratio 1.5 {ratio_units} (Normal) Range: 0.0-3.2 [...] DIFF Comments: PATIENT WAS FASTINGPERFORMED BY: BERE ScodixNor-Lea [facility] HospitalQccvyu2624 [facility] [id number] Information: [id number]; non-emergent till apt this week (14626) Immature Grans (Abs) 0.0 {x10E3/uL} (Normal) Range: [...] 3.77-5.28 WBC 13.8 {x10E3/uL} (Abnormal) Range: 3.4-10.8 5-Gej-312380:21 METABOLIC PANEL, COMPREHENSIVE Comments: PATIENT WAS FASTINGPERFORMED BY: [facility] Ecyxoq7268 [facility] [id number] (05559) ALT (SGPT) 13 [iU]/L (Normal) Range: 0-32 [...] Glucose, Serum 84 mg/dL (Normal) Range: 65-99 44-Upt-809742:32 HgA1C , Office (31519) HgA1C , Office 5.8 % (Normal) Range: 4.6 - 7.1 :18 Vitamin D Hydroxy (85151) Comments: PATIENT WAS FASTINGPERFORMED BY: [facility] Ftoksh6969 [facility] [id number] Vitamin D, 25-Hydroxy 54.3 ng/mL (Normal) Range: 30.0-100.0 Comments: Vitamin D deficiency has been defined by the [place] ofMedicine and an Endocrine Society practice guideline as alevel of serum 25-OH vitamin D less than 20 ng/mL (1,2).The Endocrine Society went on to further define vitamin Dinsufficiency as a level between 21 and 29 ng/mL (2).1. IOM ([place] of Medicine). 2010. Dietary reference intakes for calcium and D. [place]: The National Academies Press.2. Hannah MF, Hilda SONG, Cindy FREED, et al. Evaluation, treatment, and prevention of vitamin D deficiency: an Endocrine Society clinical practice guideline. JCEM. 2010; 96(7):1911-30. 1-Ekk-354052:18 IRON (23835) Comments: PATIENT WAS FASTINGPERFORMED BY: Pharmaxis [facility] Xwvgfe6925 [place] [facility] [id number] Iron, Serum 86 ug/dL (Normal) Range: 35-155 6-Zar-613272:18 CBC WITH MANUAL DIFF Comments: PATIENT WAS FASTINGPERFORMED BY: [facility] Ysobps4280 [place] [facility] [id number] Information: [id number] (37467) Immature Grans (Abs) 0.0 {x10E3/uL} (Normal) Range: [...] WBC 6.1 {x10E3/uL} (Normal) Range: 3.4-10.8 :18 DMMFL-IPTOOQUTYKG-HCNOD (85095) Comments: PATIENT WAS FASTINGPERFORMED BY: [address] [id number] AFP, Serum, Tumor Marker 9.6 ng/mL (Abnormal) Range: 0.0-8.3 Comments: Izaiah ECLIA methodology :18 PTT (Activated Partial Comments: PATIENT WAS FASTINGPERFORMED BY: [facility] [id number] Thromboplastin Time) (83656) aPTT 27 {sec} (Normal) Range: 24-33 Comments: This test has not been validated for monitoring unfractionated heparintherapy. aPTT-based therapeutic ranges for unfractionated heparintherapy have not been established. For general guidelines onHeparin monitoring, refer to the [facility] Directory of Services. :18 PT (Prothrobim Time) (20897) Comments: PATIENT WAS FASTINGPERFORMED BY: [facility] [id number] Prothrombin Time 10.3 {sec} (Normal) Range: 9.1-12.0 INR 1.0 (Normal) Range: 0.8-1.2 Comments: Reference interval is for non-anticoagulated patients. . Suggested INR therapeutic range for Vitamin K anta gonist therapy: Standard Dose (moderate intensity therapeutic range): 2.0 - 3.0 Higher intensity therapeutic range 2.5 - 3.5 :18 METABOLIC PANEL, COMPREHENSIVE Comments: PATIENT WAS FASTINGPERFORMED BY: [facility] CenterCoHealth[facility] RiverHannsh0364 [facility] [id number] (57911) ALT (SGPT) 21 [iU]/L (Normal) Range: 0-32 [...] Glucose, Serum 97 mg/dL (Normal) Range: 65-99 0-Aak-046994:18 LIPID PANEL (97473) Comments: PATIENT WAS FASTINGPERFORMED BY: [facility]Co[facility] RiverSlovvp2155 [facility] [id number]; will review at 05/25 appt LDL/HDL Ratio [...] (Normal) Range: 100-199 :30 HgA1C , Office (97050) HgA1C , Office 5.7 % (Normal) Range: 4.6 - 7.1 :37 LIPID PANEL (70399) Comments: PATIENT WAS FASTINGPERFORMED BY: makr6370 [facility] [id number] Information: [id number] LDL/HDL Ratio 1.2 {ratio_units} (Normal) Range: 0.0-3.2 LDL Cholesterol Calc 86 mg/dL (Normal) Range: 0-99 VLDL Cholesterol Sumeet 20 mg/dL (Normal) Range: 5-40 HDL Cholesterol 73 mg/dL (Normal) Comments: According to ATP-III Guidelines, HDL-C >59 mg/dL is considered anegative risk factor for CHD. Triglycerides 99 mg/dL (Normal) Range: 0-149 Cholesterol, Total 179 mg/dL (Normal) Range: 100-199 :47 Vitamin D Hydroxy (62111) Comments: PATIENT NOT FASTINGPERFORMED BY: makr6370 [facility] [id number] Vitamin D, 25-Hydroxy 34.7 ng/mL (Normal) Range: 30.0-100.0 Comments: Vitamin D deficiency has been defined by the [place] ofMedicine and an Endocrine Society practice guideline as alevel of serum 25-OH vitamin D less than 20 ng/mL (1,2).The Endocrine Society went on to further define vitamin Dinsufficiency as a level between 21 and 29 ng/mL (2).1. IOM ([place] of Medicine). 2010. Dietary reference intakes for calcium and D. [place]: The National Academies Press.2. Hannah MF, Hilda SONG, Cindy FREED, et al. Evaluation, treatment, and prevention of vitamin D deficiency: an Endocrine Society clinical practice guideline. JCEM. 2010; 96(7):1911-30. :47 CBC WITH MANUAL DIFF Comments: PATIENT NOT FASTINGPERFORMED BY: LabCoHealth[facility] Toms RiverUtpkde3426 [facility] [id number] Information: [id number] (91429) Immature Grans (Abs) 0.0 {x10E3/uL} (Normal) Range: [...] 3.77-5.28 WBC 5.9 {x10E3/uL} (Normal) Range: 3.4-10.8 06-Tux-033243:47 METABOLIC PANEL, COMPREHENSIVE Comments: PATIENT NOT FASTINGPERFORMED BY: [facility] [id number] (30559) ALT (SGPT) 37 [iU]/L (Abnormal) Range: 0-32 [...] Serum 99 mg/dL (Normal) Range: 65-99 :47 JSHJS-IRDTYUDIKFW-VPMGB (02736) Comments: PATIENT NOT FASTINGPERFORMED BY: [employer] Oagqbw0196 [facility] [id number] AFP, Serum, Tumor Marker 7.6 ng/mL (Normal) Range: 0.0-8.3 Comments: Izaiah ECLIA methodology :47 PTT (Activated Partial Comments: PATIENT NOT FASTINGPERFORMED BY: retsCloudHealthSouth - [facility] Toms RiverMitdbs6612 [facility] [id number] Thromboplastin Time) (76353) aPTT 25 {sec} (Normal) Range: 24-33 Comments: This test has not been validated for monitoring unfractionated heparintherapy. aPTT-based therapeutic ranges for unfractionated heparintherapy have not been established. For general guidelines onHeparin monitoring, refer to the [facility] Directory of Services. 32-Bww-323157:47 PT (Prothrobim Time) (43555) Comments: PATIENT NOT FASTINGPERFORMED BY: [place] [address] [facility] [id number] INR 1.0 (Normal) Range: 0.8-1.2 Comments: Reference interval is for non-anticoagulated patients. . Suggested INR therapeutic range for Vitamin K anta gonist therapy: Standard Dose (moderate intensity therapeutic range): 2.0 - 3.0 Higher intensity therapeutic range 2.5 - 3.5 Prothrombin Time 10.4 {sec} (Normal) Range: 9.1-12.0 16-Apx-440930:47 FOLIC ACID SERUM (41702) Comments: PATIENT NOT FASTINGPERFORMED BY: [address] [id number] Folate (Folic Acid), Serum >19.9 ng/mL (Normal) Comments: A serum folate concentration of less than 3.1 ng/mL isconsidered to represent clinical deficiency. 71-Pbc-479049:47 VITAMIN B-12 (CYANOCOBALAMIN) Comments: PATIENT NOT FASTINGPERFORMED BY: [address] [id number] (09760) Vitamin B12 801 pg/mL (Normal) Range: 211-946 69-Gza-153569:47 RETICULOCYTE COUNT MANUL Comments: PATIENT NOT FASTINGPERFORMED BY: [place] [address]17570 [facility] [id number] (03061) Reticulocyte Count 0.9 % (Normal) Range: 0.6-2.6 51-Uhy-643647:47 LDH (LD) (LACTATE DEHYDROGENASE) Comments: PATIENT NOT FASTINGPERFORMED BY: [address] [id number] (92648) LDH 203 [iU]/L (Normal) Range: 0-214 14-Skc-348529:47 IRON BINDING CAPACITY (TIBC) Comments: PATIENT NOT FASTINGPERFORMED BY: [address]Dublin [place] [id number] (79399) Iron Saturation 13 % (Abnormal) Range: 15-55 Iron Bind.Cap.(TIBC) 391 ug/dL (Normal) Range: 250-450 Iron, Serum 51 ug/dL (Normal) Range: 35-155 UIBC 340 ug/dL (Normal) Range: 150-375 55-Xiu-966141:47 FERRITIN (15294) Comments: PATIENT NOT FASTINGPERFORMED BY: [facility] Osqqdp4756 [facility] [id number] Ferritin, Serum 7 ng/mL (Abnormal) Range: 15-150 96-Gqs-981601:06 CULTURE, SPUTUM (47156) Comments: PATIENT NOT FASTINGPERFORMED BY: [facility] Wzfcwu2262 [facility] [id number] Information: SRC: SPUTUM Result 1 RRF (Normal) Comments: Routine respiratory trip Lower Respiratory Culture Final report (Normal) 8-Fau-936299:55 Protein Electro, Random Urine Comments: PATIENT WAS FASTINGPERFORMED BY: [facility] Yfdlie9865 [facility] [id number] Please note: SPRCS (Normal) Comments: Protein electrophoresis scan will follow via computer, mail, orcourier delivery. Gamma Globulin, U 27.2 % (Normal) M-Roque, % Not Observed % (Normal) Beta Globulin, U 31.3 % (Normal) Gvods-9-Ewatsmsd, U 3.2 % (Normal) Uugkt-8-Umfmscxx, U 15.8 % (Normal) Albumin, U 22.6 % (Normal) Protein,Total,Urine 13.6 mg/dL (Normal) Range: 0.0-15.0 5-Kyf-220387:55 Protein Electro.,S Comments: PATIENT WAS FASTINGPERFORMED BY: [facility]DxM[facility]6370 [facility] [id number] A/G Ratio 1.8 (Normal) Range: 0.7-2.0 Please note: SPRCS (Normal) Comments: Protein electrophoresis scan will follow via computer, mail, orcourier delivery. Gamma Globulin 0.6 g/dL (Normal) Range: 0.5-1.6 Globulin, Total 2.4 g/dL (Normal) Range: 2.0-4.5 M-Roque Not Observed g/dL (Normal) Viksa-1-Tcbdmjyv 0.2 g/dL (Normal) Range: 0.1-0.4 Icjer-3-Bwnskoao 0.6 g/dL (Normal) Range: 0.4-1.2 Beta Globulin 1.0 g/dL (Normal) Range: 0.6-1.3 Albumin 4.2 g/dL (Normal) Range: 3.2-5.6 5-Cqa-552541:55 TSH (34900) Comments: PATIENT WAS FASTINGPERFORMED BY: [facility] Rgdlkf0894 [facility] [id number] TSH 2.610 {uIU/mL} (Normal) Range: 0.450-4.500 :55 CBC WITH MANUAL DIFF (69128) Comments: PATIENT WAS FASTINGPERFORMED BY: LabCoHealth[facility] Toms RiverYwooet8781 [facility] [id number] Immature Grans (Abs) 0.0 {x10E3/uL} (Normal) Range: [...] 3.77-5.28 WBC 5.2 {x10E3/uL} (Normal) Range: 3.4-10.8 9-Nrz-760772:55 METABOLIC PANEL, COMPREHENSIVE Comments: PATIENT WAS FASTINGPERFORMED BY: LabCoHealthSouth [facility] Toms RiverAkcxsk3934 [facility] [id number] (72442) ALT (SGPT) 36 [iU]/L (Abnormal) Range: 0-32 [...] Glucose, Serum 88 mg/dL (Normal) Range: 65-99 0-Cgq-149817:55 LIPID PANEL (49614) Comments: PATIENT WAS FASTINGPERFORMED BY: [facility] Eqmtsw0537 [facility] [id number] LDL/HDL Ratio 1.7 {ratio_units} (Normal) Range: 0.0-3.2 LDL Cholesterol Calc 138 mg/dL (Abnormal) Range: 0-99 VLDL Cholesterol Sumeet 19 mg/dL (Normal) Range: 5-40 Cholesterol, Total 240 mg/dL (Abnormal) Range: 100-199 HDL Cholesterol 83 mg/dL (Normal) Comments: According to ATP-III Guidelines, HDL-C >59 mg/dL is considered anegative risk factor for CHD. Triglycerides 97 mg/dL (Normal) Range: 0-149 :30 HgA1C , Office (68988) HgA1C , Office 5.6 % (Normal) Range: 4.6 - 7.1 :35 CALCIFEDIOL (43059) Comments: PATIENT WAS FASTINGPERFORMED BY: [facility] Zdlnzt4958 [facility] [id number] Vitamin D, 25-Hydroxy 33.8 ng/mL (Normal) Range: 30.0-100.0 Comments: Vitamin D deficiency has been defined by the [place] ofMedicine and an Endocrine Society practice guideline as alevel of serum 25-OH vitamin D less than 20 ng/mL (1,2).The Endocrine Society went on to further define vitamin Dinsufficiency as a level between 21 and 29 ng/mL (2).1. IOM ([place] of Medicine). 2010. Dietary reference intakes for calcium and D. [place]: The National Academies Press.2. Hannah MF, Hilda [place], Maximiliano-Tan FREED, et al. Evaluation, treatment, and prevention of vitamin D deficiency: an Endocrine Society clinical practice guideline. JCEM. 2010; 96(7):1911-30. :35 CBC with manual diff Comments: PATIENT WAS FASTINGPERFORMED BY: [facility] Wheedx9480 [facility] [id number] Information: [id number] (37382) Immature Grans (Abs) 0.0 {x10E3/uL} (Normal) Range: [...] in the reference population. :35 Lipid Panel (82859) Comments: PATIENT WAS FASTINGPERFORMED BY: makr6370 [facility] [id number] LDL/HDL Ratio 1.3 {ratio_units} (Normal) Range: 0.0-3.2 [...] Panel, Comprehensive Comments: PATIENT WAS FASTINGPERFORMED BY: makr6370 [facility] [id number] (57742) ALT (SGPT) 26 [iU]/L (Normal) Range: 0-32 [...] Glucose, Serum 95 mg/dL (Normal) Range: 65-99 23-Vxt-243712:17 Protein Electro, Random Urine Comments: PATIENT NOT FASTINGPERFORMED BY: makr6370 [facility] [id number] Gamma Globulin, U 33.0 % (Normal) M-Roque, % Not Observed % (Normal) Please note: SPRCS (Normal) Comments: Protein electrophoresis scan will follow via computer, mail, orcourier delivery. Mfmob-0-Nbqokpxc, U 12.2 % (Normal) Beta Globulin, U 27.5 % (Normal) Jugkc-4-Ihjczivj, U 2.3 % (Normal) Albumin, U 25.0 % (Normal) Protein,Total,Urine 4.6 mg/dL (Normal) Range: 0.0-15.0 :17 Protein Electro.,S Comments: PATIENT NOT FASTINGPERFORMED BY: makr6370 fos4XAt[facility] [id number] A/G Ratio 1.5 (Normal) Range: 0.7-2.0 Please note: SPRCS (Normal) Comments: Protein electrophoresis scan will follow via computer, mail, orcourier delivery. Globulin, Total 2.6 g/dL (Normal) Range: 2.0-4.5 M-Roque Not Observed g/dL (Normal) Gamma Globulin 0.7 g/dL (Normal) Range: 0.5-1.6 Agjpi-2-Xpnpgvxn 0.7 g/dL (Normal) Range: 0.4-1.2 Beta Globulin 1.0 g/dL (Normal) Range: 0.6-1.3 Ithrd-2-Aoisoarj 0.2 g/dL (Normal) Range: 0.1-0.4 Albumin 4.0 g/dL (Normal) Range: 3.2-5.6 Protein, Total, Serum 6.6 g/dL (Normal) Range: 6.0-8.5 30-Oji-951522:17 PHOSPHORUS (69438) Comments: PATIENT NOT FASTINGPERFORMED BY: [facility] Fdkemm4620 [facility] [place] [id number] Phosphorus, Serum 3.6 mg/dL (Normal) Range: 2.5-4.5 23-Hwp-575205:17 PARATHORMONE (32804) Comments: PATIENT NOT FASTINGPERFORMED BY: CB [facility] Bprvie5065 [facility] [place] [id number] PTH, Intact 17 pg/mL (Normal) Range: 15-65 70-Cft-864481:17 TSH (88065) Comments: PATIENT NOT FASTINGPERFORMED BY: [facility] Wcplva8305 [facility] [place] [id number] TSH 2.130 {uIU/mL} (Normal) Range: 0.450-4.500 85-Sgr-175165:17 VITAMIN B-12 (CYANOCOBALAMIN) Comments: PATIENT NOT FASTINGPERFORMED BY: CB [facility] Jecqss0046 [facility] [place] [id number] (95726) Vitamin B12 886 pg/mL (Normal) Range: 211-946 20-Yiz-111774:54 CHEST WITH CONTRAST Radiology Report See Note [...] Hathaway M.D.March 22, 2013 at 1:20:07 PM [id number] Signed GP/GP If you are the referring physician and would like to consult with theradiologist who provided this interpretation, please contact Leslye Escobedo at [phone]. If this radiologist is unavailable, steph hensley be directed to another radiologist to assist. If you are a patient with a question regarding this report, pleasecontactyour referring physician directly. Professional Interpretation Provided By: [employer], Phone , These documents contain legally protected [...] 03/22/13 1323 Sign by: Yousif Hathaway MD 4-Ysm-568037:31 Calcium, 24Hr Urine Comments: PERFORMED BY: [facility]6370 [facility] [id number] Information: 03/07@220AM 03/08@220AM Calcium, Urine 24hr 173.8 {mg/24_hr} (Normal) Range: 100.0-300.0 Calcium, Urine 15.8 mg/dL (Normal) 9-Irt-060627:23 CULTURE, SPUTUM (51518) Comments: PATIENT NOT FASTINGPERFORMED BY: LabCoHealthSouth [facility] RiverZddtbg3496 [facility] [id number] Information: SRC:PATYON [id number] Result 1 RRF (Normal) Comments: Routine respiratory trip Lower Respiratory Culture Final report (Normal) 55-Aot-364111:26 DEXA BONE DENSITY STUDY (HP) Radiology Report [...] Hathaway M.D.January 21, 2013 at 8:47:25 AM [id number] Signed GP/GP If you are the referring physic elliott and would like to consult with theradiologist who provided this interpretation, please contact Leslye Escobedo at [phone]. If this radiologist is unavailable, youwill be directed to [facility] ther radiologist to assist. If you are a patient with a question regarding this report, pleasecontactyour referring physician directly. Professional Interpretation Provided By: [employer], Phone , These documents contain legally protected [...] difficile Toxins Positive Comments: PERFORMED BY: [facility] [id number] Information: SRC:ST 13:41 A+B, EIA (Abnormal) :38 Urinalysis, Office (01736) UA - BILIRUBIN Negative (Normal) UA - [...] Toxins A+B, Positive (Abnormal) Comments: PERFORMED BY: LabCoHealth[facility] RiverDkbwtd5329 [facility] [id number] Information: SRC:ST 56 EIA :0 CDIF See Note (Normal) Comments: COPY OF REPORT SENT TO INFECTION CONTROL 12/06/12 143MD Sy[facility] SolutionsH[facility].RESULTS CALLED TO OFFICE TO JACOBO12/06/12 [...] OF REPORT SENT TO INFECTION CONTROL 12/06/12 143Doutíssima.RESULTS CALLED TO OFFICE TO JACOBO12/06/12 LIZBETH MENEZES.REPORT [...] Cyclospora, or Microspo ridia. TESTING PERFORMED AT [facility]. ORIGINAL REPORT ON FILE IN LAB CONTAINS ADDITIONAL TEST SITE INFORMATION. OVA/ PARASITES EXAM NO OVA, CYSTS, OR PARASITES FOUND. : STOB See Note (Abnormal) Comments: COPY OF REPORT SENT TO INFECTION CONTROL 12/06/12 1432SSYRACUSE.RESULTS CALLED TO DR.FAST JOSEPH TO NitoXTEWTYK70/29/13 LIZBETH MENEZES.REPORT READ BACK BY SAME . Comments: OCCULT BLOOD POSITIVE : WBCST See Note (Abnormal) Comments: COPY OF REPORT SENT TO INFECTION CONTROL 12/06/12 1432SOSNIKOLAS.RESULTS CALLED TO DR.FAST JOSEPH TO JACOBO12/06/12 LIZBETH MENEZES.REPORT READ BACK BY SAME . Comments: FECAL WBC LACTOFERRIN Positive: Fecal WBC Lactoferrin present [id number] MICROALBUMIN: CREATININE RATIO Comments: PATIENT WAS FASTINGPERFORMED BY: [facility] [id number] ([id number]) AND ([id number]) Creatinine, Urine 144.4 mg/dL (Normal) Range: 15.0-278.0 Microalb/Creat Ratio 4.2 {mg/g_creat} (Normal) Range: 0.0-30.0 Microalbumin, Urine 6.0 ug/mL (Normal) Range: 0.0-17.0 30-Lel-[id number]:00 LIPID PANEL ([id number]) Comments: PATIENT WAS FASTINGPERFORMED BY: [facility] RiverVmnnqs7772 [facility] [id number] LDL/HDL Ratio 1.3 {ratio_units} (Normal) Range: 0.0-3.2 HDL Cholesterol 87 mg/dL (Normal) Comments: According to ATP-III Guidelines, HDL-C >59 mg/dL is considered anegative risk factor for CHD. LDL Cholesterol Calc 116 mg/dL (Abnormal) Range: 0-99 VLDL Cholesterol Sumeet 24 mg/dL (Normal) Range: 5-40 Cholesterol, Total 227 mg/dL (Abnormal) Range: 100-199 Triglycerides 122 mg/dL (Normal) Range: 0-149 23-Cnp-449918:00 CBC WITH MANUAL DIFF Comments: PATIENT WAS FASTINGPERFORMED BY: LabCoHealth[facility] RiverPzgvpg9712 [facility] [id number] Information: [id number] (87620) Immature Grans (Abs) 0.0 {x10E3/uL} (Normal) Range: [...] 3.77-5.28 WBC 4.6 {x10E3/uL} (Normal) Range: 4.0-10.5 48-Kcc-127217:00 METABOLIC PANEL, COMPREHENSIVE Comments: PATIENT WAS FASTINGPERFORMED BY: [employer] [facility] [id number] (29452) ALT (SGPT) 26 [iU]/L (Normal) Range: 0-32 [...] Glucose, Serum 93 mg/dL (Normal) Range: 65-99 16-Zkv-471846:00 Vitamin D Hydroxy (32739) Comments: PATIENT WAS FASTINGPERFORMED BY: [facility] [place] RoadDublin [place] [id number] Vitamin D, 25-Hydroxy 34.1 ng/mL (Normal) Range: 30.0-100.0 Comments: Vitamin D deficiency has been defined by the [place] ofMedicine and an Endocrine Society practice guideline as alevel of serum 25-OH vitamin D less than 20 ng/mL (1,2).The Endocrine Society went on to further define vitamin Dinsufficiency as a level between 21 and 29 ng/mL (2).1. IOM ([place] of Medicine). 2010. Dietary reference intakes for calcium and D. [place]: The National Academies Press.2. Hannah MF, Hilda SONG, Cindy FREED, et al. Evaluation, treatment, and prevention of vitamin D deficiency: an Endocrine Society clinical practice guideline. JCEM. 2010; 96(7):1911-30. 71-Cfn-154067:29 URINE WON CULTURE-OSMAR COL Comments: PATIENT NOT FASTINGPERFORMED BY: [facility] Oshbhi9815 [facility] [id number] Information: SRC: [id number] COUNT (22809) Result 1 CNSNSS (Normal) Comments: Coagulase negative [...] S Urine Final report Culture,Comprehensi (Normal) ve 84-Ola-907394:39 Urinalysis, Office (01799) UA - BILIRUBIN Negative (Normal) UA - BLOOD Negative (Normal) UA - GLUCOSE Negative (Normal) UA - KETONES Negative mg/dL (Normal) UA - LEUKOCYTE ESTERASE Trace (Normal) UA - NITRITE Negative (Normal) UA - PH 8.0 (Normal) UA - PROTEIN Trace mg/dL (Normal) UA - SPECIFIC GRAVITY 1.020 (Normal) URINE UROBILINGN OSMAR TIMED Normal mg/dL (Normal) 25-Wqt-870060:27 HgA1C , Office (42163) HgA1C , Office 5.9 % (Normal) Range: 4.6 - 7.1 7-Zzh-260679:45 CULTURE, SPUTUM (05683) Comments: PATIENT NOT FASTINGPERFORMED BY: [employer]Cloud [facility]Met[facility] [id number] Information: SRC:RUST [id number] Result 1 RRF (Normal) Comments: Routine respiratory trip Lower Respiratory Culture Final report (Normal) 8-Aap-129782:41 Urinalysis, Office (52251) UA - BILIRUBIN Negative (Normal) UA - BLOOD Negative (Normal) UA - GLUCOSE Negative (Normal) UA - KETONES Negative mg/dL (Normal) UA - LEUKOCYTE ESTERASE Trace (Normal) UA - NITRITE Negative (Normal) UA - PH 7.0 (Normal) UA - PROTEIN Negative mg/dL (Normal) UA - SPECIFIC GRAVITY 1.020 (Normal) URINE UROBILINGN OSMAR TIMED Normal mg/dL (Normal) 39-Bkt-908770:29 Urinalysis, Office (67031) UA - BILIRUBIN Negative (Normal) UA - BLOOD Hemolyzed Large (Normal) UA - GLUCOSE Negative (Normal) UA - KETONES Negative mg/dL (Normal) UA - LEUKOCYTE ESTERASE Trace (Normal) UA - NITRITE Negative (Normal) UA - PH 6.0 (Normal) Comments: 5.5 UA - PROTEIN Negative mg/dL (Normal) UA - SPECIFIC GRAVITY 1.025 (Normal) Comments: >=1.030 URINE UROBILINGN OSMAR TIMED Normal mg/dL (Normal) 16-Zea-496939:59 URINE WON CULTURE-OSMAR COL Comments: PATIENT NOT FASTINGPERFORMED BY: [facility] Evcqsv3364 [facility] [id number] Information: SRC: [id number] COUNT (97917) Result 1 Alpha streptococcus Comments: 900 Colonies/mLSusceptibility not normally performed on this organism. (Normal) Urine Final report (Normal) Culture,Comprehensi ve 31-Yke-754146:41 Urinalysis, Office (77683) UA - NITRITE Negative (Normal) URINE UROBILINGN OSMAR TIMED 2 mg/dL (Normal) UA - PROTEIN Trace mg/dL (Normal) UA - PH 7.0 (Normal) UA - BLOOD Hemolyzed Large (Normal) UA - SPECIFIC GRAVITY 1.025 (Normal) UA - KETONES Negative mg/dL (Normal) UA - BILIRUBIN Negative (Normal) UA - GLUCOSE Negative (Normal) 51-Ieq-83258:00 CHEST, PA AND LATERAL Radiology Report See [...] change. Signed:Yousif Hathaway M.D.July at 1:40:15 PM [id number] Signed GP/GP If you are the referring physician and would like to consult with theradiologist who provided this interpretation, please contact Yousif Hathaway M.D. at [phone]. If this radiologist is unavailable, youwill be directed to another radiologist to assist. If you are a patient with a question regarding this report, pleasecontactyour yeny butcher physician directly. Professional Interpretation Provided By: [employer], Phone , These documents contain legally protected [...] 07/28/12 1403 Sign by: Yousif Hathaway MD 43-Wvy-111507:27 CBC WITH MANUAL DIFF Comments: PATIENT WAS FASTINGPERFORMED BY: [facility]6370 [facility] [id number] Information: [id number] (59107) Immature Grans (Abs) 0.0 {x10E3/uL} (Normal) Range: [...] 3.77-5.28 WBC 5.9 {x10E3/uL} (Normal) Range: 4.0-10.5 46-Kiq-202824:27 METABOLIC PANEL, COMPREHENSIVE Comments: PATIENT WAS FASTINGPERFORMED BY: [facility]Co[facility] RiverRdxiao6984 [facility] [id number] (65284) ALT (SGPT) 16 [iU]/L (Normal) Range: 0-32 [...] Glucose, Serum 86 mg/dL (Normal) Range: 65-99 5-Atr-144808:09 HgA1C , Office (61994) HgA1C , Office 6.0 % (Normal) Range: 4.6 - 7.1 :27 HEPATIC FUNCTION PANEL Comments: PATIENT WAS FASTINGPERFORMED BY: [place] 1717570 [facility] [id number] (09775) Bilirubin, Direct 0.09 mg/dL (Normal) Range: 0.00-0.40 :27 LIPID PANEL (26815) Comments: PATIENT WAS FASTINGPERFORMED BY: [place] 1717570 [facility] [id number] LDL/HDL Ratio 1.8 {ratio_units} (Normal) Range: 0.0-3.2 [...] Microscopic Examination Comments: PATIENT WAS FASTINGPERFORMED BY: [place] 1717570 [facility] [id number] Bacteria None seen (Normal) Mucus Threads Present (Normal) Epithelial Cells (non renal) 0-10 {/hpf} (Normal) Range: 0 - 10 RBC 0-3 {/hpf} (Normal) Range: 0 - 3 WBC 0-5 {/hpf} (Normal) Range: 0 - 5 :51 LIPID PANEL (48820) Comments: PATIENT WAS FASTINGPERFORMED BY: [place] 1717570 [facility] [id number]; f/u 06/08/12 LDL/HDL Ratio 1.4 {ratio_units} (Normal) [...] B-12 (CYANOCOBALAMIN) Comments: PATIENT WAS FASTINGPERFORMED BY: [employer] Uajibd4544 [facility]in [place] [id number] (66060) Vitamin B12 702 pg/mL (Normal) Range: 211-946 :51 Vitamin D Hydroxy (50072) Comments: PATIENT WAS FASTINGPERFORMED BY: LabA.[facility] Tisqla1227 [facility] [place] [id number] Vitamin D, 25-Hydroxy 43.0 ng/mL (Normal) Range: 30.0-100.0 Comments: Vitamin D deficiency has been defined by the [place] ofOhio Valley Surgical Hospitalcine and an Endocrine Society practice guideline as alevel of serum 25-OH vitamin D less than 20 ng/mL (1,2).The Endocrine Society went on to further define vitamin Dinsufficiency as a level between 21 and 29 ng/mL (2).1. IOM ([place] of Medicine). 2010. Dietary reference intakes for calcium and D. [place]: The National Academies Press.2. Hannah MF, Hilda [place], Cindy FREED, et al. Evaluation, treatment, and prevention of vitamin D deficiency: an Endocrine Society clinical practice guideline. JCEM. 2010; 96(7):1911-30. :51 URINALYSIS, W/ MICRO (42144) Comments: PATIENT WAS FASTINGPERFORMED BY: [facility] Ddkjav2203 [facility] [id number] Microscopic Examination See below: (Normal) Microscopic Examination MICRON (Normal) Comments: Microscopic follows if indicated. Nitrite, Urine Negative (Normal) Urobilinogen,Semi-Qn 0.2 mg/dL (Normal) Range: 0.0-1.9 Bilirubin Negative (Normal) Occult Blood Negative (Normal) Ketones Negative (Normal) Glucose Negative (Normal) Protein Negative (Normal) WBC Esterase Negative (Normal) Appearance Clear (Normal) Urine-Color Yellow (Normal) pH 7.0 (Normal) Range: 5.0-7.5 Specific Pinckney 1.019 (Normal) Range: 1.005-1.030 10-Dgs-433810:51 METABOLIC PANEL, Comments: PATIENT WAS FASTINGPERFORMED BY: [facility] RiverLeerur0347 [facility] [id number] Information: [id number] COMPREHENSIVE (52506) ALT (SGPT) 17 [iU]/L (Normal) Range: 0-40 [...] Glucose, Serum 95 mg/dL (Normal) Range: 65-99 99-Aoe-954208:51 TSH (83006) Comments: PATIENT WAS FASTINGPERFORMED BY: LabCoHealth[facility] RiverNrskwf7073 [facility] [id number] TSH 1.860 {uIU/mL} (Normal) Range: 0.450-4.500 46-Wdj-379967:31 Blood Glucose , Office (01617) Blood Glucose , Office 119 (Normal) 16-Bez-816591:22 FECAL OCCULT- Tubes sent home (83470) FECAL OCCULT HGB ASSAY, QUAL, 1-3 SIMULTANEOU Negative (Normal) :56 CBC WITH MANUAL DIFF Comments: PATIENT WAS FASTINGPERFORMED BY: [facility]Co[facility] RiverNquxtt5036 [facility] [id number] Information: [id number] (56558) Immature Grans (Abs) 0.0 {x10E3/uL} (Normal) Range: [...] {x10E3/uL} (Normal) Range: 4.0-10.5 :56 RETICULOCYTE COUNT [facility] (93185) Comments: PATIENT WAS FASTINGPERFORMED BY: [facility] RiverDlacsp4103 [facility] [id number] Reticulocyte Count 0.9 % (Normal) Range: 0.5-3.0 :56 IRON BINDING CAPACITY (TIBC) Comments: PATIENT WAS FASTINGPERFORMED BY: [facility] RiverMesqaa9558 [facility] [id number] (22149) Iron Saturation 12 % (Abnormal) Range: 15-55 Iron, Serum 47 ug/dL (Normal) Range: 35-155 UIBC 342 ug/dL (Normal) Range: 150-375 Iron Bind.Cap.(TIBC) 389 ug/dL (Normal) Range: 250-450 :56 FERRITIN (03521) Comments: PATIENT WAS FASTINGPERFORMED BY: [facility] RiverZmjtou3468 [facility] [id number] Ferritin, Serum 10 ng/mL (Abnormal) Range: 13-150 13-Wlu-131933:13 HgA1C , Office (58888) HgA1C , Office 5.8 % (Normal) Range: 4.6 - 7.1 :13 Blood Glucose , Office (48996) Blood Glucose , Office 116 (Normal) 9-Xqo-384052:00 CBC WITH MANUAL DIFF Comments: PATIENT WAS FASTINGPERFORMED BY: QuanDxMcl[facility] Hospital6370 [facility] [id number] Information: [id number] (21381) Immature Grans (Abs) 0.0 {x10E3/uL} (Normal) Range: [...] 3.80-5.10 WBC 3.6 {x10E3/uL} (Abnormal) Range: 4.0-10.5 2-Ccl-439168:00 MICROALBUMIN: CREATININE RATIO Comments: PATIENT WAS FASTINGPERFORMED BY: LabCo[facility] T[facility] RiverJqrdcg0673 [facility] [id number] (27012) AND (14544) Microalb/Creat Ratio 3.8 {mg/g_creat} (Normal) Range: 0.0-30.0 Creatinine, Urine 200.2 mg/dL (Normal) Range: 15.0-278.0 Microalbumin, Urine 7.7 ug/mL (Normal) Range: 0.0-17.0 3-Gug-849981:00 METABOLIC PANEL, COMPREHENSIVE Comments: PATIENT WAS FASTINGPERFORMED BY: [employer]6370 [facility] [id number] (04152) ALT (SGPT) 12 [iU]/L (Normal) Range: 0-40 [...] Glucose, Serum 96 mg/dL (Normal) Range: 65-99 2-Ize-176787:00 LIPID PANEL (84228) Comments: PATIENT WAS FASTINGPERFORMED BY: makr6370 [facility] [id number] LDL/HDL Ratio 1.3 {ratio_units} (Normal) Range: 0.0-3.2 LDL Cholesterol Calc 99 mg/dL (Normal) Range: 0-99 VLDL Cholesterol Sumeet 26 mg/dL (Normal) Range: 5-40 HDL Cholesterol 75 mg/dL (Normal) Comments: According to ATP-III Guidelines, HDL-C >59 mg/dL is considered anegative risk factor for CHD. Triglycerides 129 mg/dL (Normal) Range: 0-149 Cholesterol, Total 200 mg/dL (Abnormal) Range: 100-199 42-Npc-139108:12 HgA1C , Office (54482) HgA1C , Office 6.1 % (Normal) Range: 4.6 - 7.1 86-Swe-637483:12 Blood Glucose , Office (76210) Blood Glucose , Office 100 (Normal) :46 Anaerobic and Aerobic Comments: PERFORMED BY: [facility]6370 [facility] [id number] Information: SRC:FL LEFT ANKLE Culture Result 1 NG36 (Normal) Comments: No growth in 36 - 48 hours. Aerobic Culture Final report (Normal) Result 1 NANG72 (Normal) Comments: No anaerobic growth in 72 hours. Anaerobic Culture Final report (Normal) 15-Hvv-790562:23 CHEST, PA AND LATERAL Radiology Report See [...] _ Yousif Hathaway MD :57 LIPID PANEL (19484) Comments: PATIENT WAS FASTINGPERFORMED BY: [facility] T[facility] RiverEmgtdl8032 [facility] [id number] LDL/HDL Ratio 1.3 {ratio_units} (Normal) Range: 0.0-3.2 [...] PANEL, COMPREHENSIVE Comments: PATIENT WAS FASTINGPERFORMED BY: [employer] Mhqtli8967 [facility] [id number] (77538) ALT (SGPT) 18 [iU]/L (Normal) Range: 0-40 [...] Glucose, Serum 98 mg/dL (Normal) Range: 65-99 65-Mdh-946855:57 CBC WITH MANUAL DIFF Comments: PATIENT WAS FASTINGPERFORMED BY: LabCo[facility] RiverWxbppz3717 [facility] [id number] Information: [id number] (35369) Immature Grans (Abs) 0.0 {x10E3/uL} (Normal) Range: [...] (Normal) Range: 4.0-10.5 :57 HgA1C , Office (12948) HgA1C , Office 5.9 % (Normal) Range: 4.6 - 7.1 :57 Blood Glucose , Office (88100) Blood Glucose , Office 94 (Normal) :46 DEXA BONE DENSITY STUDY (HP) Radiology Report See Note (Normal) Comments: CLINICAL:Female, 65 years old. Postmenopausal with past history of steroid use,family history and bone fracture. EXAMINATION:DUAL ENERGY X-RAY ABSORPTIOMETRY / DEXA. TECHNIQUE:Bone Mineral Density (BMD ) measurements of lumbar spine and bilateralhipswere obtained using a youcalc scanner.. COMPARISON:Prior bone density of November 27, [...] Merida on 11/28/102031 Sign by: Erna [place] 35-Xkf-097985:06 Vitamin D Hydroxy (87225) Comments: PATIENT WAS FASTINGPERFORMED BY: [email or web address] [facility] [id number] Vitamin D, 25-Hydroxy 51.1 ng/mL (Normal) Range: 32.0-100.0 Comments: Recent studies consider the lower limit of 32.0 ng/mL to be athreshold for optimal health.Fred VILLARREAL. J Nutr. 2004;135(2):317-22. 73-Stm-711691:06 LIPID PANEL (10950) Comments: PATIENT WAS FASTINGPERFORMED BY: [email or web address] [facility] [id number] LDL Cholesterol Calc 66 mg/dL (Normal) Range: 0-99 LDL/HDL Ratio 0.8 {ratio_units} (Normal) Range: 0.0-3.2 VLDL Cholesterol Sumeet 20 mg/dL (Normal) Range: 5-40 HDL Cholesterol 88 mg/dL (Normal) Comments: According to ATP-III Guidelines, HDL-C >59 mg/dL is considered anegative risk factor for CHD. Cholesterol, Total 174 mg/dL (Normal) Range: 100-199 Triglycerides 99 mg/dL (Normal) Range: 0-149 24-Skz-139852:06 CBC WITH MANUAL DIFF Comments: PATIENT WAS FASTINGPERFORMED BY: LabCoHealth[facility] T[facility] RiverIghhor3202 [facility] [id number] Information: [id number] (31230) Immature Grans (Abs) 0.0 {x10E3/uL} (Normal) Range: [...] 3.80-5.10 WBC 4.8 {x10E3/uL} (Normal) Range: 4.0-10.5 93-Zqj-630688:06 METABOLIC PANEL, COMPREHENSIVE Comments: PATIENT WAS FASTINGPERFORMED BY: [employer]70 [facility] [id number] (31512) ALT (SGPT) 25 [iU]/L (Normal) Range: 0-40 [...] Glucose, Serum 85 mg/dL (Normal) Range: 65-99 66-Ysj-489505:06 MICROALBUMIN: CREATININE RATIO Comments: PATIENT WAS FASTINGPERFORMED BY: [employer]70 [facility] [id number] (86453) AND (05484) Creatinine, Urine 220.5 mg/dL (Normal) Range: 15.0-278.0 Microalb/Creat Ratio 5.4 {mg/g_creat} (Normal) Range: 0.0-30.0 Microalbumin, Urine 12.0 ug/mL (Normal) Range: 0.0-17.0 92-Ybi-529871:10 HgA1C , Office (26834) HgA1C , Office 5.8 % (Normal) Range: 4.6 - 7.1 93-Bko-747185:10 Blood Glucose , Office (59993) Blood Glucose , Office 107 (Normal) 9-Fqa-336874:23 Microscopic Examination Comments: PATIENT NOT FASTINGPERFORMED BY: [facility] T[facility] RiverFmrhgi1464 [facility] [id number] Bacteria Few (Normal) Mucus Threads Present (Normal) Epithelial Cells (non renal) 0-10 {/hpf} (Normal) Range: 0 - 10 RBC 0-3 {/hpf} (Normal) Range: 0 - 3 WBC 0-5 {/hpf} (Normal) Range: 0 - 5 :23 VITAMIN B-12 (CYANOCOBALAMIN) Comments: PATIENT NOT FASTINGPERFORMED BY: Qu[facility]DxMcl[facility] Hospital6370 [facility] [id number] (73575) Vitamin B12 685 pg/mL (Normal) Range: 211-946 4-Qsy-720203:23 URINALYSIS, W/ MICRO (90612) Comments: PATIENT NOT FASTINGPERFORMED BY: QuanDxCrystal Ville 2550170 [facility] [id number] Microscopic Examination See below: (Normal) Microscopic Examination MICRON (Normal) Comments: Microscopic follows if indicated. Nitrite, Urine Negative (Normal) Urobilinogen,Semi-Qn 0.2 mg/dL (Normal) Range: 0.0-1.9 Bilirubin Negative (Normal) Appearance Clear (Normal) Glucose Negative (Normal) Ketones Negative (Normal) Occult Blood Negative (Normal) Protein Negative (Normal) WBC Esterase Negative (Normal) pH 6.5 (Normal) Range: 5.0-7.5 Urine-Color Yellow (Normal) Specific Pinckney 1.020 (Normal) Range: 1.005-1.030 :23 TSH (67621) Comments: PATIENT NOT FASTINGPERFORMED BY: [facility]6370 [facility] [id number] TSH 1.630 {uIU/mL} (Normal) Range: 0.450-4.500 :23 CBC WITH MANUAL DIFF Comments: PATIENT NOT FASTINGPERFORMED BY: [facility]6370 [facility] [id number] Information: [id number] (85748) Immature Grans (Abs) 0.0 {x10E3/uL} (Normal) Range: [...] (Normal) Range: 4.0-10.5 :25 HgA1C , Office (74646) HgA1C , Office 5.8 % (Normal) Range: 4.6 - 7.1 :25 Blood Glucose , Office (85455) Blood Glucose , Office 106 (Normal) :35 Rapid Strep Test, Office (50500) Rapid Strep Test, Office Negative (Normal) :41 HEPATIC FUNCTION PANEL Comments: PATIENT WAS FASTINGPERFORMED BY: [employer] Ehlfpl8443 [facility] [id number] Information: [id number] (22825) ALT (SGPT) 19 [iU]/L (Normal) Range: 0-40 Alkaline Phosphatase, S 63 [iU]/L (Normal) Range: 25-165 AST (SGOT) 22 [iU]/L (Normal) Range: 0-40 Albumin, Serum 4.5 g/dL (Normal) Range: 3.6-4.8 Bilirubin, Direct 0.13 mg/dL (Normal) Range: 0.00-0.40 Bilirubin, Total 0.4 mg/dL (Normal) Range: 0.0-1.2 Protein, Total, Serum 6.2 g/dL (Normal) Range: 6.0-8.5 :41 LIPID PANEL (44788) Comments: PATIENT WAS FASTINGPERFORMED BY: [employer] Eoigwn6953 [facility] [id number] LDL/HDL Ratio 1.1 {ratio_units} (Normal) Range: 0.0-3.2 HDL Cholesterol 66 mg/dL (Normal) Comments: According to ATP-III Guidelines, HDL-C >59 mg/dL is considered anegative risk factor for CHD. LDL Cholesterol Calc 75 mg/dL (Normal) Range: 0-99 Triglycerides 78 mg/dL (Normal) Range: 0-149 VLDL Cholesterol Sumeet 16 mg/dL (Normal) Range: 5-40 Cholesterol, Total 157 mg/dL (Normal) Range: 100-199 22-Oww-984630:41 Vitamin D Hydroxy (23468) Comments: PATIENT WAS FASTINGPERFORMED BY: LabCoHealth[facility] T[facility] RiverIdtjxl6945 [facility] [id number] Vitamin D, 25-Hydroxy 46.3 ng/mL (Normal) Range: 32.0-100.0 Comments: Recent studies consider the lower limit of 32.0 ng/mL to be athreshold for optimal health.Fred VILLARREAL. J Nutr. 2004;135(2):317-22. :54 HgA1C , Office (36981) HgA1C , Office 6.2 % (Normal) Range: 4.6 - 7.1 :54 Blood Glucose , Office (91638) Blood Glucose , Office 91 (Normal) :34 [...] 6.4-8.2 GLU 91 mg/dL (Normal) Range: 70-110 00-Qgi-105773:34 D BILI 0.06 mg/dL (Normal) Range: 0.00-0.30 55-Fif-081470:34 LIPID HDL 60 mg/dL (Normal) Comments: Reference [...] CHOL 223 mg/dL (Abnormal) Comments: <200 mg/dL Ihyjdqeyc192-889 mg/dL Borderline>240 mg/dL High Risk 80-Pvt-419167:34 MICROALB:CRE UR MALB:CREAT 5.4 {mg/g_CRE} (Normal) MICROALBUMIN,UR 10.9 mg/L (Normal) UR CREAT 199.6 mg/dL (Normal) 78-Vjn-602941:34 VIT D,25 57425 36.2 ng/mL (Normal) Range: 32.0-100.0 Comments: Recent studies consider the lower limit of 32.0 ng/mL to adan threshold for optimal health.Fred VILLARREAL. J Nutr. 2004;135(2):317-22.Performed at: - [facility] [id number] Director: Roseann Carter MD :28 HgA1C , Office (22908) HgA1C , Office 5.9 % (Normal) Range: 4.6 - 7.1 :28 Blood Glucose , Office (64903) Blood Glucose , Office 103 (Normal) 22-Prr-842727:07 LIPID CHOL 205 mg/dL (Abnormal) Comments: <200 mg/dL Lxnjxggax388-411 mg/dL Borderline>240 mg/dL High Risk HDL 76 [...] Range: 6.4-8.2 :27 Blood Glucose , Office (50396) Blood Glucose , Office 97 (Normal) :26 HgA1C , Office (72255) HgA1C , Office 5.6 % (Normal) Range: [...] (Normal) Range: 0.358-3.74 :58 HgA1C , Office (75364) HgA1C , Office 5.6 % (Normal) Range: 4.6 - 7.1 :58 Blood Glucose , Office (18211) Blood Glucose , Office 110 (Normal) :11 [...] T PROT 6.6 g/dL (Normal) Range: 6.4-8.2 28-Fer-976478:11 LIPID CHOL 179 mg/dL (Normal) Comments: <200 [...] mg/dL VLDL 22 mg/dL (Normal) Range: 5-40 64-Zjw-185788:11 PHOS 2.6 mg/dL (Normal) Range: 2.5-4.9 40-Ljw-526926:11 PROT.[id number] ALBUMIN,UR 31.3 % (Normal) ATOJM-0-ZOGB,U 1.6 % (Normal) HCOWJ-0-DJYR,U 13.0 % (Normal) BETA GLOB,U 40.1 % (Normal) GAMMA GLOB,U 14.0 % (Normal) M-SPIKE,U SeeNote % (Normal) Comments: Result: Not Observed NOTE Comment (Normal) Comments: Protein electrophoresis scan will follow via computer,mail, or wax room supervisor delivery. PROTEIN,UR 10.2 mg/dL (Normal) Range: 0.0-15.0 :11 PTH,[id number] PTH,Intact 28 pg/mL (Normal) Range: 15-65 Comments: Performed At: [facility]6[address] [place], [place] [id number] 81-Wcr-057691:11 SPE [id number] A/G RATIO 1.7 (Normal) Range: 0.7-2.0 ALBUMIN [...] electrophoresis scan will follow via computer,mail, or wax room supervisor delivery. PROTEIN,TOTAL 6.3 g/dL (Normal) Range: 6.0-8.5 4-Wiv-485019:05 TRANSVAGINAL NON-PREG US () Radiology Report See Note (Normal) Comments: Exam Number: [id number] PELVIC ULTRASOUND HISTORYAbnormal pelvic exam. Transabdominal and transvaginal studies were performed. Highresolution real time sector images were obtained. The grayling angela is sandra l in size measuring [...] not seen. Reported By: JAVY CASTRO M.D. 0-Sno-728380:51 PELVIC (NON-PREG) (HP) Radiology Report See Note (Normal) Comments: Exam Number: [id number] PELVIC ULTRASOUND HISTORYAbnormal pelvic exam. Transabdominal and transvaginal studies were performed. Highresolution real time sector images were obtained. The grayling angela is sandra l in size measuring [...] not seen. Reported By: JAVY CASTRO M.D. 63-Hhh-656049:41 Thin prep Pap Comments: Source.............Cervical;EndocervicalLMP / Prev Treat...JGQ=[id number]. of containers..01 CYTYC Thin Prep VialPATIENT NOT FASTINGClinical Information: ADD [id number] (38785) PERFORMED BY: QuanDx[address] [id number] . . (Normal) DIAGNOSIS: SPRCS (Normal) Comments: NEGATIVE FOR INTRAEPITHELIAL LESION AND MALIGNANCY.Satisfactory for evaluation. Endocervical component may not bedistinguished in cases of atrophy.V72.31 ; Routine gynecological examination Lilly Bravo, Building Construction Engineer ([facility]) Note: PAPSMR (Normal) Comments: The [...] was performed. . :35 HgA1C , Office (45577) HgA1C , Office 5.5 % (Normal) Range: 4.6 - 7.1 :35 Blood Glucose , Office (32212) Blood Glucose , Office 102 (Normal) :54 [...] 47-70 WBC 4.9 K/mm3 (Normal) Range: 4.4-11.0 [id number]:54 COMP METABOLIC A/G 1.2 {RATIO} (Normal) Range: [...] for patient's is the eGFRmultiplied by 1.212. [facility] Laboratory uses the abbreviated Modification of [...] Disease W/O Kidney Disease>/= 90 Stage One Ioaabp18 - 89 Stage Two Suspect Decreased GFR30 [...] {uIU/mL} (Normal) Range: 0.34-4.82 :54 VIT D,25 54751 40.7 ng/mL (Normal) Range: 32.0-100.0 Comments: Recent studies consider the lower limit of 32.0 ng/mL to adan threshold for optimal health.Fred VILLARREAL. J Nutr. 2004;135(2):317-22.Performed At: [address] [id number] DEXA BONE DENSITY STUDY (HP) Radiology Report See Note (Normal) Comments: Exam Number: [id number] BONE DENSITOMETRY HISTORYOsteopenia. TECHNIQUE Bone densitometry of [...] lumbar spine and left hip. Reported By: JVAY CASTRO M.D. 73-Btx-207259:57 KNEE,3 VIEWS (MT) Radiology Report See Note (Normal) Comments: Exam Number: [id number] LEFT KNEE CLINICAL INFORMATIONFall, pain. 3 views [...] seen otherwise. Reported By: SHANELL LOFTON M.D. 66-Eyh-234367:34 Blood Glucose , Office (69728) Blood Glucose , Office 113 (Normal) 73-Jow-726664:34 HgA1C , Office (68571) HgA1C , Office 5.8 % (Normal) Range: 4.6 - 7.1 98-Vtc-140516:19 HEPATIC FUNCTION PANEL Comments: PATIENT WAS FASTINGClinical Information: ADD DRAW FEE [id number] ADD J 70630 PERFORMED BY: BERE [facility] RiverEcmqox5282 [facility] [id number] ([id number]) Albumin, Serum 4.6 g/dL (Normal) Range: 3.6-4.8 Alkaline Phosphatase, S 83 [iU]/L (Normal) Range: 25-165 ALT (SGPT) 17 [iU]/L (Normal) Range: 0-40 AST (SGOT) 22 [iU]/L (Normal) Range: 0-40 Bilirubin, Direct 0.12 mg/dL (Normal) Range: 0.00-0.40 Bilirubin, Total 0.5 mg/dL (Normal) Range: 0.1-1.2 Protein, Total, Serum 7.0 g/dL (Normal) Range: 6.0-8.5 :19 LIPID PANEL (01062) Comments: PATIENT WAS FASTINGPERFORMED BY: KRAFTWERK Obhtos3551 [facility] [id number] Cholesterol, Total 186 mg/dL (Normal) Range: 100-199 HDL Cholesterol 66 mg/dL (Abnormal) Range: 40-59 Comments: HDL cholesterol values >59 mg/dL are associated with reduced cardiacrisk. LDL Cholesterol Calc 99 mg/dL (Normal) Range: 0-99 LDL/HDL Ratio 1.5 {ratio_units} (Normal) Range: 0.0-3.2 Triglycerides 107 mg/dL (Normal) Range: 0-149 VLDL Cholesterol Sumeet 21 mg/dL (Normal) Range: 5-40 83-Eci-889269:16 HgA1C , Office (80464) HgA1C , Office 5.5 % (Normal) Range: 4.6 - 7.1 59-Zqn-594241:16 Blood Glucose , Office (79270) Blood Glucose , Office 125 (Normal) 20-Tet-759150:03 MICROALBUMIN: CREATININE RATIO Comments: PATIENT WAS FASTINGPERFORMED BY: Sc[employer] [id number] ([id number]) AND (86984) Microalbum.,U,Random 3.8 ug/mL (Normal) Range: 0.0-17.0 64-Frm-648132:03 HEPATIC FUNCTION PANEL Comments: PATIENT WAS FASTINGClinical Information: ADD DRAW FEE [id number] ADD J 42174 PERFORMED BY: retsCloudHealthSouth [facility] T[facility] RiverDedgbu9107 [facility] [id number] ([id number]) Albumin, Serum 4.8 g/dL (Normal) Range: 3.6-4.8 Alkaline Phosphatase, S 77 [iU]/L (Normal) Range: 25-165 ALT (SGPT) 20 [iU]/L (Normal) Range: 0-40 AST (SGOT) 22 [iU]/L (Normal) Range: 0-40 Bilirubin, Direct 0.11 mg/dL (Normal) Range: 0.00-0.40 Bilirubin, Total 0.4 mg/dL (Normal) Range: 0.1-1.2 Protein, Total, Serum 7.0 g/dL (Normal) Range: 6.0-8.5 :03 LIPID PANEL (34238) Comments: PATIENT WAS FASTINGPERFORMED BY: [employer] [facility] [id number] Cholesterol, Total 205 mg/dL (Abnormal) Range: 100-199 [...] (Normal) Range: 5-40 :53 HgA1C , Office (65302) HgA1C , Office 5.4 % (Normal) Range: 4.6 - 7.1 :52 Blood Glucose , Office (13702) Blood Glucose , Office 96 (Normal) :42 CHEST, PA AND LATERAL Radiology Report See Note (Normal) Comments: Exam Number: [id number] PA AND LATERAL CHEST HISTORY Being done for cough. Cardiac configuration is normal. There are mild emphysematouschanges. No acute infiltrate, effusion, or pneumothorax isidenti fied. There is spur formation mid dorsal spine. These findingswere all seen on December 10, 2006, and are unchanged. IMPRESSIONNo acute change noted in the lungs. Reported By: CHANEL SANDY M.D. 65-Dbe-591691:32 LIPID PANEL (67664) Comments: PATIENT WAS FASTINGPERFORMED BY: [employer] [facility] [id number] Cholesterol, Total 204 mg/dL (Abnormal) Range: 100-199 [...] Cholesterol Sumeet 25 mg/dL (Normal) Range: 5-40 73-Lug-053716:32 URINALYSIS W/O MICRO (83413) Comments: PATIENT WAS FASTINGPERFORMED BY: [employer] [facility] [id number] Appearance Clear (Normal) Bilirubin Negative (Normal) Glucose Negative (Normal) Ketones Negative (Normal) Microscopic Examination MICRON (Normal) Comments: Microscopic follows if indicated. Nitrite, Urine Negative (Normal) Occult Blood Negative (Normal) pH 6.5 (Normal) Range: 5.0-7.5 Protein Negative (Normal) Specific [place] 1.019 (Normal) Range: 1.005-1.030 Urine-Color Yellow (Normal) Urobilinogen,Semi-Qn 0.2 mg/dL (Normal) Range: 0.0-1.9 WBC Esterase Negative (Normal) 46-Dhd-979247:32 TSH (11503) Comments: PATIENT WAS FASTINGPERFORMED BY: [employer] GoodCoThreadflip70 [facility] [id number] TSH 2.348 {uIU/mL} (Normal) Range: 0.350-5.500 05-Jie-413911:32 METABOLIC PANEL, COMPREHENSIVE Comments: PATIENT WAS FASTINGPERFORMED BY: LabCoHealthSouth [facility] T[facility] RiverVizwra9727 [facility] [id number] ([id number]) A/G Ratio 1.7 (Normal) Range: 1.1-2.5 Albumin, [...] Sodium, Serum 141 mmol/L (Normal) Range: 135-148 03-Znd-469147:32 CBC WITH MANUAL DIFF (49847) Comments: PATIENT WAS FASTINGClinical Information: ADD DRAW FEE [id number] ADD J 33699 PERFORMED BY: LabCoHealth[facility] T[facility] RiverZnsjfh7128 [facility] [id number] Baso (Absolute) 0.0 {x10E3/uL} (Normal) Range: 0.0-0.2 [...] Range: 4.0-10.5 :56 Blood Glucose , Office (91697) Blood Glucose , Office 84 (Normal) :56 HgA1C , Office (94710) HgA1C , Office 5.4 % (Normal) Range: 4.6 - 7.1 :12 Blood Glucose , Office (15827) Comments: [facility] Blood Glucose , Office 94 (Normal) :12 HgA1C , Office (51244) Comments: [facility] HgA1C , Office 5.3 % (Normal) [...] (Normal) Range: 4.4-11.0 :52 HgA1C , Office (19358) Comments: [facility] HgA1C , Office 5.2 % (Normal) Range: 4.6 - 7.1 :52 Blood Glucose , Office (63154) Comments: [facility] Blood Glucose , Office 99 (Normal) [...] 11.6-14.6 WBC 8.2 K/mm3 (Normal) Range: 4.4-11.0 2-Xwg-617755:00 COMPLETE UA Comments: COMMENTS: CULTURE IF WBC>5Precautions*: [...] 3.5-5.1 NA 138 mmol/L (Normal) Range: 136-145 55-Pnx-757907:12 BMP CL 104 mmol/L (Normal) Range: 98-107 CO2 31.5 mmol/L (Abnormal) Range: 22.0-29.0 GAP 4 (Abnormal) Range: 5-15 K 4.3 mmol/L (Normal) Range: 3.5-5.1 BUN 13 mg/dL (Normal) Range: 7-18 BUN/CRE 16.3 {RATIO} (Normal) Range: 10-20 CA 8.7 mg/dL (Normal) Range: 8.5-10.1 CREAT,SERUM 0.8 mg/dL (Normal) Range: 0.6-1.0 GLU 70 mg/dL (Normal) Range: 70-110 NA 139 mmol/L (Normal) Range: 136-145 21-Cja-277635:12 CBC HCT 37.4 % (Normal) Range: 37-47 HGB 12.8 g/dL (Normal) Range: 12.0-16.0 MCH 30.5 pg (Normal) Range: 27.0-32.0 MCHC 34.1 g/dL (Normal) Range: 32-36 MCV 89.4 fL (Normal) Range: 81-99 PLT 295 K/mm3 (Normal) Range: 150-450 RBC 4.19 {M/mm3} (Abnormal) Range: 4.2-5.4 RDW 12.8 % (Normal) Range: 11.6-14.6 WBC 6.2 K/mm3 (Normal) Range: 4.4-11.0 12-Nhw-538007:12 PRO TIME INR 0.9 (Normal) PROTIME 11.7 s (Normal) Range: 11.7-13.3 :12 PTT 30.0 s (Normal) Range: 24.6-36.6 :34 Blood Glucose , Office (81904) Blood Glucose , Office 109 (Normal) :34 HgA1C , Office (79700) HgA1C , Office 5.4 % (Normal) Range: 4.6 - 7.1 :42 GLUP 141 mg/dL (Abnormal) Comments: GLU,2HPPG 75gm GLUC PPG GLUP from 1127:V57921X. Comments: Glucose result from 140 to <200 mg/dL suggestsIMPAIRED GLUCOSE HOMEOSTASIS per A.D.A. criteria. :37 B12/FOLATES 810 FOLATES,S 2013 19.9 ng/mL (Normal) Comments: Indeterminate: 3.4 - 5.4 Deficient: <3.4Performed At: [facility] [address] [place], [place] [id number] VIT B12 1503 375 pg/mL (Normal) Range: 211-911 43-Mec-444043:37 CBCD,SMEAR DIFF BAND 2 % (Normal) Range: [...] 47-70 WBC 6.7 K/mm3 (Normal) Range: 4.4-11.0 66-Nxi-826225:37 COMP METABOLIC A/G 1.5 {RATIO} (Normal) Range: [...] syndrome Obstructive sleep apnea, adult : Reviewed Physical Therapist Center Manager Letter Indication: Obstructive sleep apnea, adult Abnormal [...] dermatitis due to poison alina : Poison Alian Education Indication: Contact dermatitis due to poison [...] TESTS Indication: Symptom, Cough Planned Observations CALCIFEDIOL (86339)Indication: Depression On: :31 Request TSH (42257)Indication: Abnormal glucose tolerance test On: Request URINALYSIS, W/ MICRO (97744)Indication: Abnormal glucose tolerance test On: Request MICROALBUMIN: CREATININE RATIO (73710) AND (43464)Indication: Abnormal glucose tolerance test On: Request METABOLIC PANEL, COMPREHENSIVE (93326)Indication: Abnormal glucose tolerance test On: 1-Ypt-180610:29 Request LIPOPROTEIN, BLD, BY NMR (20542)Indication: Abnormal glucose tolerance test On: :29 Request CBC W/AUTO DIFF WBC (41271)Indication: Abnormal glucose tolerance test On: 3-Nvp-868944:29 Request Clostridium difficile Toxin A+B, EIA (63352)Indication: Diarrhea On: 13-Jme-736433:04 Request Cologuard - Strool Based DNA Test, CRC SCREEN (06450)Indication: Encounter for screening for malignant neoplasm of colon (Renamed from Special screening for malignant neoplasms, colon) On: 87-Qox-619264:58 Request Lipid Panel (88581)Indication: Other hyperlipidemia On: 58-Htq-529283:58 Request CBC WITH MANUAL DIFF (73368)Indication: Other hyperlipidemia On: 70-Fll-509643:58 Request MICROALBUMIN: CREATININE RATIO (05953) AND (40552)Indication: Other hyperlipidemia On: 51-Lbi-778834:58 Request URINALYSIS (43224)Indication: Other hyperlipidemia On: 67-Wiq-648520:58 Request TSH (83334)Indication: Other hyperlipidemia On: 29-Pgq-703051:58 Request Metabolic Panel, Comprehensive (41995)Indication: Other hyperlipidemia On: 39-Cvl-398821:57 Request GIARDIA LAMBLIA ANTIBODY (61888)Indication: Diarrhea (Renamed from D (diarrhea)) On: :29 Request WON CULTURE-STOOL (35915)Indication: Diarrhea (Renamed from D (diarrhea)) On: :29 Request OCCULT BLOOD FECES SCREEN (70205)Indication: Diarrhea (Renamed from D (diarrhea)) On: : Request LEUKOCYTE COUNT, FECAL (40746)Indication: Diarrhea (Renamed from D (diarrhea)) On: : Request C-DIFFICILE, STOOL (74162)Indication: Diarrhea (Renamed from D (diarrhea)) On: :27 Request RBAVN-UVEFRAVANXX-HZSXU (62907)Indication: Elevated AFP On: 2-Xoh-625934:55 Request CJGFL-LHIFUCYJMLJ-LDOET (62776)Indication: Elevated tumor markers On: 95-Gby-590184:39 Request VITAMIN B12 AND FOLATES (33063)Indication: Other hyperlipidemia On: :39 Request CALCIFEDIOL (75364)Indication: Other hyperlipidemia On: :39 Request TSH (THYROID STIMULATING HORMONE) (32900)Indication: Other hyperlipidemia On: :39 Request LIPID PANEL (12672)Indication: Other hyperlipidemia On: :39 Request METABOLIC PANEL, COMPREHENSIVE (28592)Indication: Other hyperlipidemia On: :39 Request CBC, PLATELETS & AUT DIFF (84626)Indication: Other hyperlipidemia On: :39 Request CBC W/AUTO DIFF WBC (81340)Indication: Abnormal glucose tolerance test On: :05 Request LIPID PANEL (00889)Indication: Other hyperlipidemia On: :04 Request METABOLIC PANEL, COMPREHENSIVE (02903)Indication: Abnormal glucose tolerance test On: :04 Request MICROALBUMIN: CREATININE RATIO (67134) AND (85525)Indication: Abnormal glucose tolerance test On: :04 Request GXKLJ-NWPQVVILUWI-LZDXB (42915)Indication: Other chronic nonalcoholic liver disease On: :02 Request TSH (77707)Indication: Depression On: 64-Jyh-741244:37 Request LIPID PANEL (37768)Indication: Hyperlipidemia, unspecified On: 89-Avg-400885:36 Request EATQC-LSMYRLPNSKG-RRMAD (60878)Indication: Other chronic nonalcoholic liver disease On: 81-Yvk-676650:35 Request CBC W/AUTO DIFF WBC (26075)Indication: Abnormal glucose tolerance test On: 85-Aol-393265:35 Request METABOLIC PANEL, COMPREHENSIVE (70573)Indication: Abnormal glucose tolerance test On: 01-Lho-286579:35 Request FECAL OCCULT HGB ASSAY- tubes sent home (74661)Indication: Anemia, unspecified On: 53-Flw-495071:19 Request METABOLIC PANEL, COMPREHENSIVE (42389)Indication: Abnormal glucose tolerance test On: 32-Rgr-546024:43 Request IRON (69011)Indication: Anemia, unspecified On: 63-Xzp-056827:30 Request HgA1C , Office (87354)Indication: Abnormal glucose tolerance test On: 91-Oqc-501416:53 Request UPEP (91178)Indication: Osteopenia On: 58-Jzf-326302:50 Request SPEP (31619)Indication: Osteopenia On: :50 Request UPEP (44357)Indication: Osteopenia On: 24-Kon-552358:13 Request SPEP (23402)Indication: Osteopenia On: 60-Epz-409283:13 Request TSH (51178)Indication: Osteopenia On: :23 Request PHOSPHORUS (93828)Indication: Osteopenia On: :23 Request PARATHORMONE (73305)Indication: Osteopenia On: :23 Request URINE CALCIUM OSMAR TIMED 24 Hour (67335)Indication: Osteopenia On: :23 Request UPEP (57456)Indication: Osteopenia On: :23 Request SPEP (72920)Indication: Osteopenia On: :23 Request C-DIFFICILE, STOOL (24286)Indication: Clostridium difficile infection On: 8-Mjj-593606:25 Request C-DIFFICILE, STOOL (26381)Indication: Diarrhea (Renamed from D (diarrhea)) On: 87-Pgn-733758:57 Request WON CULTURE-STOOL (37038)Indication: Diarrhea (Renamed from D (diarrhea)) On: 20-Mdx-047916:06 Request C-DIFFICILE, STOOL (31997)Indication: Diarrhea (Renamed from D (diarrhea)) On: :05 Request LEUKOCYTE COUNT, FECAL (30576)Indication: Diarrhea (Renamed from D (diarrhea)) On: 41-Gza-917711:05 Request OCCULT BLOOD FECES SCREEN (44134)Indication: Diarrhea (Renamed from D (diarrhea)) On: :05 Request OVA & PARASITE DIR SMEAR (82920)Indication: Diarrhea (Renamed from D (diarrhea)) On: :05 Request C DIFF AMPLIFIED PROBE (32986)Indication: Diarrhea (Renamed from D (diarrhea)) On: 99-Idd-420273:53 Request Rapid Flu (94952 x 2)Indication: Symptom, Cough On: 0-Tit-116925:35 Request URINE WON CULTURE-OSMAR COL COUNT (90956)Indication: Hematuria (Renamed from Blood in the urine) On: 4-Eho-111613:28 Request Urinalysis, Office (52725)Indication: Hematuria (Renamed from Blood in the urine) On: 4-Ndx-139945:00 Request HgA1C , Office (04931)Indication: Abnormal glucose tolerance test On: 78-Npj-205882:31 Request IRON (46547)Indication: Iron deficiency anemia, unspecified On: 09-Rzq-215064:22 Request BACT CULTURE ANY-ANAEROBIC (38327)Indication: CELLULITIS/ABSCESS, FOOT On: 66-Qmf-165266:02 Request Comments: left ankle MICROALBUMIN: CREATININE RATIO (54964) AND (04183)Indication: Abnormal glucose tolerance test On: : Request CBC WITH MANUAL DIFF (45367)Indication: Abnormal glucose tolerance test On: : Request METABOLIC PANEL, COMPREHENSIVE (97118)Indication: Abnormal glucose tolerance test On: :22 Request Vitamin D Hydroxy (49100)Indication: Osteopenia On: :21 Request HEPATIC FUNCTION PANEL (54416)Indication: Hyperlipidemia, unspecified On: :21 Request LIPID PANEL (34973)Indication: Hyperlipidemia, unspecified On: :21 Request HEPATIC FUNCTION PANEL (93792)Indication: Hyperlipidemia, unspecified On: 26-Jzi-816434:47 Request LIPID PANEL (48476)Indication: Hyperlipidemia, unspecified On: :47 Request TSH (31350)Indication: Other and unspecified disorders of circulatory system On: :41 Request METABOLIC PANEL, COMPREHENSIVE (80881)Indication: Abnormal glucose tolerance test On: :41 Request MICROALBUMIN: CREATININE RATIO (15467) AND (71385)Indication: Abnormal glucose tolerance test On: :34 Request LIPID PANEL (68919)Indication: Hyperlipidemia, unspecified On: :34 Request PT (Prothrobim Time) (43597)Indication: Other and unspecified disorders of circulatory system On: :34 Request PTT (Activated Partial Thromboplastin Time) (78690)Indication: Other and unspecified disorders of circulatory system On: :34 Request CBC WITH MANUAL DIFF (47108)Indication: Other and unspecified disorders of circulatory system On: 75-Vsh-308411:34 Request HEPATIC FUNCTION PANEL (38530)Indication: Hyperlipidemia, unspecified On: 52-Vma-264822:17 Request LIPID PANEL (13443)Indication: Hyperlipidemia, unspecified On: :17 Request UPEP (96412)Indication: Osteopenia On: :52 Request SPEP (46608)Indication: Osteopenia On: :51 Request PHOSPHORUS (56467)Indication: Osteopenia On: :51 Request PARATHORMONE (69629)Indication: Osteopenia On: :51 Request MICROALBUMIN: CREATININE RATIO (38915) AND (11196)Indication: Abnormal glucose tolerance test On: 69-Dun-066702:44 Request LIPID PANEL (16380)Indication: Hyperlipidemia, unspecified On: 16-Lrr-742424:38 Request METABOLIC PANEL, COMPREHENSIVE (66607)Indication: Abdominal pain, acute, generalized On: 75-Siy-948162:38 Request CBC WITH MANUAL DIFF (69094)Indication: Abdominal pain, acute, generalized On: 63-Tvx-732515:38 Request TSH (21676)Indication: Osteopenia On: 95-Rtj-349190:38 Request Vitamin D Hydroxy (48135)Indication: Osteopenia On: 21-Inn-434865:38 Request LIPID PANEL (32779)Indication: Other hyperlipidemia On: 25-Vau-112192:33 Request GLUCOSE, PP/2 HOUR (85058)Indication: Fatigue On: :59 Request URINALYSIS W/O MICRO (49730)Indication: Fatigue On: :58 Request TSH (42127)Indication: Fatigue On: :58 Request CBC WITH MANUAL DIFF (75236)Indication: Fatigue On: :58 Request METABOLIC PANEL, COMPREHENSIVE (91133)Indication: Fatigue On: :58 Request Planned Encounters Medical; 6 Month FU - On: 17-Mar-2019 13:00 [facility] Jessica Tanner DO, DO, Kathleen Planned Procedures ELECTROCARDIOGRAM, COMPLETE (ECG) On: 15-Sep-2018 Intent (48365)By: Jessica Tanner DO Comments: nsr no acute chg Jessica Tanner DO Spirometry (32864)By: Ciro JACQUES, On: 15-Sep-2018 Intent Jessica Preston DO ORTHOSTATIC BLOOD PRESSURE On: 24-May-2018 Intent ASSESSMENT (99584)By: Ana M Christine LPN PNEUM VAC ADLT/IMUMNOSPR, SBC/INTRM On: 28-Apr-2018 Intent (97441)By: Jessica Tanner DO Comments: pneumovax prefilled syringe injectionlot: [id number]: 12/2018R DELT IMpt tolerated wellAD Jessica Whiting DO XLQT-YQ-FGHD BEHAVIORAL COUNSELING On: 28-Apr-2018 Intent FOR OBESITY, 15 MINUTES (G0447)By: Jessica Tanner DO, DO, Kathleen DEXA SCAN AXIAL SKELETON (74272)By: On: 28-Apr-2018 Intent Jessica Tanner DO, DO, Kathleen Flu Vaccine (Quadrivalent) 20295Rh: On: 02-Aug-2017 Intent Jessica Tanner DO, DO, Comments: InfluenzaLot #[id number]-04/25/18Site-L dltd, IMDose prefilled syringeVIS and ABN signedgiven by:INÉS lu FBTI-VP-IQRT BEHAVIORAL COUNSELING On: 08-Apr-2017 Intent FOR OBESITY, 15 MINUTES (G0447)By: Jessica Tanner DO, DO, Kathleen ELECTROCARDIOGRAM, COMPLETE (ECG) On: 11-Mar-2017 Intent (41007)By: Jessica Tanner DO Comments: nsr no acute chg Jessica Tanner DO Aerosol Treatment (72153)By: On: 22-Feb-2017 Intent Tamia Wood Comments: Lungs clear after aersol treatment. Radiology - ChestBy: Tamia Wood On: 22-Feb-2017 Intent Aerosol Treatment (24866)By: On: 31-Dec-2016 Intent Tamia Wood Comments: Albuterol 0.083%relistened -more a/e Aerosol Treatment (06948)By: Toy On: 28-Oct-2016 Intent ANESTHESIOLOGY PHYSICIAN ASSISTANT, Soniya Aerosol Treatment (83549)By: Ciro On: 15-Oct-2016 Jessica Combs DO, DO, Kathleen Comments: more a/e no wheeze less chest tightness CT - Abdomen & Pelvis (IV Contrast On: 15-Sep-2016 Intent Needed)By: Doug Barrett MD Comments: to be done 11/2016 Flu Vaccine (Quadrivalent) 35555Ip: On: 02-Sep-2016 Intent Duog Barrett MD Comments: FLUlot: [id number]:05/07/17site:Lt deltoidroute:IMdose:.5mlBEBA PHAM Radiology - Chest- PA and LatBy: On: 05-May-2016 Intent [address] DO CT - Abdomen (IV Contrast Needed)By: On: 05-May-2016 Intent Clemencia Ferreira DO Comments: elevated alpha feto protein Radiology - Shoulder - LeftBy: Fast On: 03-Jan-2016 Clemencia Combs DO Flu Vaccine (Quadrivalent) 16688Ba: On: 09-Aug-2015 Intent Clemencia Ferreira DO Comments: Lot #:[id number] date: 04/2016Amount given:prefilled syringeSite given:L Dltd, IMGiven by: RAJ Taylor and ABN signed ADMINISTRATION OF INFLUENZA VIRUS On: 09-Aug-2015 Intent VACCINE (G0008)By: Clemencia Ferreira DO Aerosol Treatment (81937)By: Jhon On: 05-Jun-2015 Clemencia Combs DO Solu- Medrol Injection, 125mg On: 05-Jun-2015 Intent (J2930)By: Clemencia Ferreira DO Comments: lot:[id number]:route:IMdose:125MGsite: R glutGiven by: VAMSI Watt MRI LIVER W CONTRAST (70368)By: Jhon On: 26-Apr-2015 Clemencia Combs DO DEXA SCAN AXIAL SKELETON (10507)By: On: 05-Apr-2015 Intent Clemenica Ferreira DO Ultrasound - LiverBy: Clemencia Ferreira DO On: 05-Apr-2015 Intent A EKG (26555)By: Clemencia Ferreira DO On: 05-Apr-[address] - AbdomenBy: Clemencia Ferreira DO On: 07-Dec-2014 Intent Comments: attn liver - elevated alpha feto protein Aerosol Treatment (86597)By: Toy On: 05-Nov-2014 Intent Nell KLINE Prevnar 13 (48972)By: Visit, Nurse On: 30-Aug-2014 Intent Comments: [id number] arm, IMas ADMINISTRATION OF INFLUENZA VIRUS On: 17-Aug-2014 Intent VACCINE (G0008)By: Clemencia Ferreria DO FLU VAC, SPLIT, >3 YEARS, INTRAMUSC On: 17-Aug-2014 Intent (64023)By: Clemencia Ferreira DO Comments: lot: [id number]: 05-07-15site/route: L del/IMamt: 0.5mLVIS signed when applicableChelsea, CTC OPERATOR Solu -Medrol Injection, 125 mg On: 13-Aug-2014 Intent (J2930)By: Toy KLINENell Aerosol Treatment (78051)By: Toy On: 13-Aug-2014 Intent Nell KLINE Ultrasound - LiverBy: Clemencia Ferreira DO On: 25-May-2014 Intent A Aerosol Treatment (72656)By: Toy On: 26-Mar-2014 Intent Nell KLINE Aerosol Treatment (27753)By: Toy On: 26-Mar-2014 Intent Nell KLINE EKG (09027)By: Clemencia Ferreiar DO On: 16-Feb-2014 Intent Comments: ekg showed normal sinus rhythym, normal axis, no acute st/t wave changes Eprescribed prescriptions (G8553)By: On: 16-Feb-2014 Intent Clemencia Ferreira DO Eprescribed prescriptions (G8553)By: On: 21-Nov-2013 Intent Kristy Hinton Eprescribed prescriptions (G8553)By: On: 19-Jul-2013 Intent Brooke Conklin FLU VAC, SPLIT, >3 YEARS, INTRAMUSC On: 19-Jul-2013 Intent (15133)By: Brooke Conklin Comments: Lot #:[id number] date:mount given:0.5mlRoute: IMSite given: L dltdVIS and [...] Intent Jessica Tanner DO Ciro , Comments: Lot:[id number]:07/2014Dose:30mLRoute:IMSite:r hipGiven By:HUYEN signed Jessica Eprescribed prescriptions (G8553)By: On: 20-Dec-2012 Intent Clemencia Ferreira DO DXA, BONE DENSITY, AXIAL SKELETON On: 29-Nov-2012 Intent (99654)By: Clemencia Ferreira DO Eprescribed prescriptions (G8553)By: On: 29-Nov-2012 Intent Brooke Conklin Solu -Medrol Injection, 125 mg On: 23-Nov-2012 Intent (J2930)By: Essie Fletcher LPN Comments: Lot #[id number]/15Site-left hipDose- 125 mggiven by: Nito Fletcher LPN Eprescribed prescriptions (G8553)By: On: 23-Nov-2012 Intent Brooke Conklin Solu -Medrol Injection, 125 mg On: 21-Nov-2012 Intent (J2930)By: Clemencia Ferreira DO Comments: Lot: [id number]: mt: 125mgRoute: IMSite: R Gluteal without difficulty or c/o voiced. Given by: INÉS Benjamin Pulse Oximetry (17843)By: Rubin On: 21-Nov-2012 Intent Brooke Comments: 93%- recheck 95 Eprescribed prescriptions (G8553)By: On: 21-Nov-2012 Intent Brooke Conklin Solu -Medrol Injection, 125 mg On: 18-Nov-2012 Intent (J2930)By: Tamia Roblero LPN Comments: pushed By Dr. Ciro aragon pt IV lot [id number] exp 04/22 Rocephon Injection, 2 Gm (J0696)By: On: 18-Nov-2012 Intent Tamia Roblero LPN Comments: IV initiated in: R ACwith 22 gaugenumber of attempts: x2 attempts, infiltrated in R FA on first attempt.Tolerated well: without c/o voiced.Rocephin Lot#[id number], exp03/21-2 gms in NS 100cc's infused without difficulty or c/o voiced. Solu- Medrol Injection, 125mg On: 17-Nov-2012 Intent (J2930)By: Jessica Tanner DO Comments: Lot #[id number]-2/15Site-right hipDose- 125 mggiven by: INÉS Fuller DO, Kathleen Eprescribed prescriptions (G8553)By: On: 17-Nov-2012 Jessica Hope DO, DO, Kathleen Rocephon Injection, 2 Gm (J0696)By: On: 17-Nov-2012 Intent Tamia Roblero LPN THER/PROPH/DIAG IV INF, INIT On: 16-Nov-2012 Intent (53608)By: Clemencia Ferreira DO Comments: lot # [id number]- 03/21site-Rantecubital fossaroute-IVdose- 2GCHenderson INÉS Solu -Medrol Injection, 125 mg On: 16-Nov-2012 Intent (J2930)By: Clemencia Ferreira DO Comments: Lot:[id number]:Dose:125mgRoute:IMSite:l hipGiven By:HUYEN signed INFUSION, NORMAL SALINE SOLUTION , On: 16-Nov-2012 Intent 250 CC ([id number])By: Clemencia Ferreira DO Rocephin Injection, 2 Gram On: 16-Nov-2012 Intent ([id number])By: Clemencia Ferreira DO Pulse Oximetry ([id number])By: Rubin, On: 16-Nov-2012 Intent Brooke Comments: 95% Eprescribed prescriptions ([id number])By: On: 16-Nov-2012 Intent Brooke Conklin Aerosol Treatment ([id number])By: Toy On: 09-Nov-2012 Intent Nell KLINE FLU VAC, SPLIT, >3 YEARS, INTRAMUSC On: 28-Sep-2012 Intent ([id number])By: Nell Yeager CNP Comments: Lot:[id number]:[id number]:0.5mLRoute:IMSite:L DltdGiven By:Willie signed ADMINISTRATION OF INFLUENZA VIRUS On: 28-Sep-2012 Intent VACCINE ([id number])By: Nell Yeager CNP SPECIMEN HANDLING/TRANSPORT On: 28-Sep-2012 Intent ([id number])By: Elissa Wallace LPN SPECIMEN HANDLING/TRANSPORT On: 07-Sep-2012 Intent ([id number])By: Elissa Wallace LPN Radiology - Chest- PA and LatBy: On: 08-Jun-2012 Intent Fast DO, Clemencia A Z[place] VACC, [place] ([id number])By: Rubin, On: 28-Apr-2012 Intent Brooke Comments: pt received at [facility] 04/2012 Eprescribed prescriptions ([id number])By: On: 20-Apr-2012 Intent Fast DO, Clemencia A EKG ([id number])By: Brooke Conklin On: 20-Apr-2012 Intent Comments: ekg showed normal sinus rhythym, normal axis, no acute st/t wave changes Spirometry ([id number])By: Rubin On: 20-Apr-2012 Intent Brooke Comments: good effort and curve normal Eprescribed prescriptions ([id number])By: On: 16-Mar-2012 Intent Fast DO, Clemencia A Eprescribed prescriptions ([id number])By: On: 16-Mar-2012 Intent Fast DO, Clemencia A Eprescribed prescriptions ([id number])By: On: 29-Jan-2012 Intent Fast DO, Clemencia A Eprescribed prescriptions ([id number])By: On: 27-Nov-2011 Intent Ciro DO, Jessica Ciro DO, Jessica PNEUM VAC ADLT/IMUMNOSPR, SBC/INTRM On: 19-Aug-2011 Intent ([id number])By: Brooke Conklin Comments: Lot #:[id number] date:mount given:0.5mlRoute: IMSite given:left deltGiven by: BEBA Higgins ADMINISTRATION OF PNEUMOCOCCAL On: 19-Aug-2011 Intent VACCINE ([id number])By: Brooke Conklin ADMINISTRATION OF INFLUENZA VIRUS On: 04-Aug-2011 Intent VACCINE ([id number])By: Brooke Conklin FLU VAC, SPLIT, >3 YEARS, INTRAMUSC On: 04-Aug-2011 Intent ([id number])By: Brooke Conklin Radiology - Chest- PA and LatBy: On: 30-Jan-2011 Intent Clemencia Ferreira DO A Aerosol Treatment ([id number])By: Toy On: 10-Nov-2010 Intent Nell KLIEN Pulse Oximetry ([id number])By: Toy KLINE, On: 10-Nov-2010 Intent Nell Cerna TDAP VACCINE >7 IM ([id number])By: Ron On: 21-Oct-2010 Intent Carla CONTE Comments: Lot #[id number]-[id number] arm, IMDose prefilled syringegiven by:LISA Radiology - Chest- PA and LatBy: On: 07-Oct-2010 Intent Clemencia Ferreira DO Spirometry ([id number])By: Rubin, On: 07-Oct-2010 Intent Brooke Comments: good effort and curve normal DXA, BONE DENSITY, AXIAL SKELETON On: 07-Oct-2010 Intent ([id number])By: Clemencia Ferreira DO Comments: vkias IMMUNIZ ADMNIN, 1 VAC, SNGL/COMBO On: 07-Oct-2010 Intent ([id number])By: Brooke Conklin Comments: Lot #[id number]-L armDose0.5mlgiven by:LISA FLU VAC, SPLIT, >3 YEARS, INTRAMUSC On: 07-Oct-2010 Intent ([id number])By: Brooke Conklin Solu -Medrol Injection, 125 mg On: 06-Aug-2010 Intent ([id number])By: Nell Yeager CNP Pulse Oximetry ([id number])By: Toy KLINE, On: 06-Aug-2010 Intent Soniya Aerosol Treatment ([id number])By: Toy On: 06-Aug-2010 Intent RAISANell EKG ([id number])By: Clemencia Ferreira DO On: 07-Jul-2010 Intent Comments: ekg showed normal sinus rhythym, normal axis, no acute st/t wave changes EKG ([id number])By: Brooke Conklin On: 03-Apr-2010 Intent Comments: ekg showed normal sinus rhythym, normal axis, no acute st/t wave changes FLU VAC, SPLIT, >3 YEARS, INTRAMUSC On: 05-Aug-2009 Intent ([id number])By: Brooke Conklin Comments: Lot #:[id number] date:mount given:0.5mlRoute: IMSite given:left deltGiven by: BEBA HigginsIZ ADMNIN, 1 VAC, SNGL/COMBO On: 05-Aug-2009 Intent ([id number])By: Brooke Conklin Solu -Medrol Injection, 125 mg On: 04-Jul-2009 Intent ([id number])By: Toy KLINE Soniya Comments: Lot #: [id number] date: 02/17Amount given: 125 mg/2 mlRoute: IMSite given: Right hipGiven by: Fernie Singleton LPN Spirometry ([id number])By: Rubin On: 07-May-2009 Intent Brooke Comments: good effort and curve normal Ultrasound - PelvisBy: Jhon JACQUES, On: 04-Feb-2009 Intent Clemencia Enciso Radiology - ChestBy: Clemencia Ferreira DO On: 04-Feb-2009 Intent A Comments: pa and lat Pulse Oximetry ([id number])By: Toy KLINE, On: 30-Jan-2009 Intent Soniya Aerosol Treatment ([id number])By: Toy On: 30-Jan-2009 Intent RAISA Soniya EKG ([id number])By: Brooke Conklin On: 18-Dec-2008 Intent Comments: ekg showed normal sinus rhythym, normal axis, no acute st/t wave changes DXA, BONE DENSITY, AXIAL SKELETON On: 07-Sep-2008 Intent ([id number])By: Clemencia Ferreira DO FLU VAC, SPLIT, >3 YEARS, INTRAMUSC On: 07-Sep-2008 Intent ([id number])By: Brooke Conklin Comments: Lot #:[id number] date:04/16Amount given:0.5mlRoute: IMSite given:left delGiven by: BEBA Higgins IMMUNIZ ADMNIN, 1 VAC, SNGL/COMBO On: 07-Sep-2008 Intent ([id number])By: Brooke Conklin Radiology - Knee - Left - Weight On: 30-Jul-2008 Intent BearingBy: Jhon DO Clemencia A Comments: with sunrise view Spirometry ([id number])By: Rubin, On: 06-Mar-2008 Intent Brooke Comments: good effort and curve normal Pulse Oximetry ([id number])By: Rubin On: 06-Mar-2008 Intent Brooke Comments: 98% Aerosol Treatment ([id number])By: Ciro On: 13-Feb-2008 Jessica Combs DO, DO, Kathleen Solu- Medrol Injection, 125mg On: 13-Feb-2008 Intent ([id number])By: Jessica Tanner DO Comments: Lot #: [id number] date: mount given: 125 mg/2 mlRoute: IMSite given: Right hipGiven by: INÉS Sabillon DO, Kathleen Pulse Oximetry ([id number])By: Khai On: 13-Feb-2008 Intent KRISHNA EKG ([id number])By: Brooke Conklin On: 29-Nov-2007 Intent Comments: ekg showed normal sinus rhythym, normal axis, no acute st/t wave changes IMMUNIZ ADMNIN, 1 VAC, SNGL/COMBO On: 02-Sep-2007 Intent ([id number])By: Kenia Fernandez FLU VAC, SPLIT, >3 YEARS, INTRAMUSC On: 02-Sep-2007 Intent ([id number])By: Kenia Fernandez Radiology - Chest- PA and LatBy: On: 09-Aug-2007 Intent Jhon DO, Clemencia A Spirometry ([id number])By: Jhon JACQUES, On: 09-Aug-2007 Intent Clemencia A Comments: good effort and curve with mild airway obstruction Pneumovax ([id number])By: Clemencia Ferreira DO On: 09-Aug-2007 Intent A Comments: given im in left deltoid lot #[id number] exp.09/02/08-aw EKG ([id number])By: Clemencia Ferreira DO On: 20-Oct-2006 Intent Comments: ekg showed normal sinus rhythym, normal axis, no acute st/t wave changes PNEUM VAC ADLT/IMUMNOSPR, SBC/INTRM On: 27-Sep-2006 Intent ([id number])By: KRISHNA Ridley IMMUNIZ ADMNIN, 1 VAC, SNGL/COMBO On: 27-Sep-2006 Intent ([id number])By: KRISHNA Ridley FLU VAC, SPLIT, >3 YEARS, INTRAMUSC On: 23-Sep-2006 Intent ([id number])By: Kenia Jauergui IMMUNIZ ADMNIN, 1 VAC, SNGL/COMBO On: 23-Sep-2006 Intent ([id number])By: Kenia Jauregui Spirometry ([id number])By: Jhon JACQUES, On: 22-Sep-2006 Intent Clemencia Enciso Comments: was normal with normal curve and effort -but pt with a definitive bronchospastic cough Overnight Pulse OX ([id number])By: Jhon On: 22-Sep-2006 Intent Clemencia JACQUES Planned [...] 125 MG Ordered: 18-Nov-2012 Pending Tamia Roblero COVERAGE SPECIALIST RN INJECTION, METHYLPREDNISOLONE SODIUM SUCCINATE, UP TO 125 [...] a sinus flare up and went to [place] -- been home and fine other than [...] patient does not have durable power of extrusion technician or living will. The patient has noticed nothing from the geriatic depression scale. Other providers contributing to the patient's care are studio control operator, gastrologist, cold food packer and surgeon.Encounter Diagnosis: Nonsmoker, BMI 30.0-30.9,adult, Annual [...] patient does not have durable power of extrusion technician or living will. The patient has noticed nothi ng from the geriatic depression scale. 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 The symptoms have been associated with hoarseness [...] - Celia larkin was the doc in [place]-- no trauma- noticed this inlast 3-4 months [...] arm - steroid creme not helping veryitchy greogry leg and left armEncounter Diagnosis: CONTACT DERMATITIS [...] discharge. Note for Rash: Pt was outside [place] [facility].- she was exposed to poison alina [...] her of recent URI's that occured from [employer] [place] and believes End: 03-Apr-2010 15:49 its [...] weight :. 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 Patient has been compliant with instructions. [facility] End: 31-Jan-2007 15:37 t medication use: no [...] help daughter just recently moved away to [place] ) ,excessive sleeping ,headache (at times ) [...]
--- OUTSIDE RECORDS SUMMARY | 2019-01-30 01:58 | XMS RPT_ITS ---
:1945 Author Organization OHIP Support Name Relationship Address Phone R Unavailable Unavailable Unavailable WIRT, ARTHUR Unavailable [address] + [place] [address] R Unavailable Unavailable Unavailable WIRT, ARTHUR Unavailable [address] + [place] [address] R Unavailable Unavailable Unavailable WIRT, ARTHUR Unavailable [address] + [place] [address] R Unavailable Unavailable Unavailable WIRT, ARTHUR Unavailable [address] + [place] [address] R Unavailable Unavailable Unavailable WIRT, ARTHUR Unavailable [address] + [place] [address] R Unavailable Unavailable Unavailable WIRT, ARTHUR Unavailable [address] + [place] [address] R Unavailable Unavailable Unavailable WIRT, ARTHUR Unavailable [address] + [place] [address] R Unavailable Unavailable Unavailable WIRT, ARTHUR Unavailable [address] + [place] [address] R Unavailable Unavailable Unavailable WIRT, ARTHUR Unavailable [address] + [place] [address] R Unavailable Unavailable Unavailable WIRT, ARTHUR Unavailable [address] + [place] [address] R Unavailable Unavailable Unavailable WIRT, ARTHUR Unavailable [address] + [place] [address] R Unavailable Unavailable Unavailable WIRT, ARTHUR Unavailable [address] + [place] [address] R Unavailable Unavailable Unavailable WIRT, ARTHUR Unavailable [address] + [place] [address] R Unavailable Unavailable Unavailable WIRT, ARTHUR Unavailable [address] + [place] [address] R Unavailable Unavailable Unavailable WIRT, ARTHUR Unavailable [address] + [place] [address] R Unavailable Unavailable Unavailable WIRT, ARTHUR Unavailable [address] + [place] [address] R Unavailable Unavailable Unavailable WIRT, ARTHUR Unavailable [address] + [place] [address] R Unavailable Unavailable Unavailable WIRT, ARTHUR Unavailable [address] + [place] [address] R Unavailable Unavailable Unavailable WIRT, ARTHUR Unavailable [address] + [place] [address] R Unavailable Unavailable Unavailable WIRT, ARTHUR Unavailable [address] + [place] [address] R Unavailable Unavailable Unavailable WIRT, ARTHUR Unavailable [address] + [place] [address] R Unavailable Unavailable Unavailable WIRT, ARTHUR Unavailable [address] + [place] [address] R Unavailable Unavailable Unavailable WIRT, ARTHUR Unavailable [address] + [place] [address] R Unavailable Unavailable Unavailable WIRT, ARTHUR Unavailable [address] + [place] [address] Care Team Providers Name Role Phone Jessica Tanner DO Attending Unavailable Gloria Munguia MD Referring Unavailable Ciro DO, Jessica Consulting Unavailable Ciro, Jessica Primary Care Unavailable Stephany Francois Attending Unavailable Nell Yeager Attending Unavailable Nell Yeager Referring Unavailable Ciro, Jessica Primary Care Unavailable Nell Yeager Attending Unavailable Nell Yeager Referring Unavailable Ciro, Jessica Primary Care Unavailable Tamia Wood PROFESSOR OF PRACTICE-C Attending Unavailable Tamia Wood PROFESSOR OF PRACTICE-C Referring Unavailable Ciro, Jessica Primary Care Unavailable Ciro, Jessica Primary Care Unavailable Chelle Zaragoza Attending Unavailable Chicorelli, Ginny Attending Unavailable Chicorelli, Ginny Referring Unavailable Ciro, Jessica Primary Care Unavailable Chicorelli, Ginny Attending Unavailable Ciro, Jessica Referring Unavailable Ciro, Jessica Primary Care Unavailable Chicorelli, Ginny Attending Unavailable Chicorelli, Ginny Referring Unavailable Ciro, Jessica Primary Care Unavailable Chicorelli, Ginny Attending Unavailable Chicorelli, Ginny Referring Unavailable Ciro, Jessica Primary Care Unavailable Chicorelli, Ginny Admitting Unavailable Josemanuel Abreu Attending Unavailable Ciro, Jessica Referring Unavailable Ciro, Jessica Primary Care Unavailable Chicorelli, Ginny Admitting Unavailable Brady, Josemanuel Attending Unavailable Chicorelli, Ginny Referring Unavailable Ciro, Jessica Primary Care Unavailable Chicoreljarocho, Ginny Consulting Unavailable Chicorelli, Ginny Admitting Unavailable Brady, Josemanuel Attending Unavailable Chicorelli, Ginny Referring Unavailable Ciro, Jessica Primary Care Unavailable Chicoreljarocho, Ginny Consulting Unavailable Chicorelli, Ginny Admitting Unavailable Josemanuel Abreu Attending Unavailable Chicorelli, Ginny Referring Unavailable Ciro, Jessica Primary Care Unavailable Chicorelli, Ginny Consulting Unavailable Chicorelli, Ginny Attending Unavailable Brady, Josemanuel Attending Unavailable Ciro, Jessica Referring Unavailable Josemanuel Abreu Attending Unavailable Josemanuel Abreu Referring Unavailable Ciro, Jessica Primary Care Unavailable Josemanuel Abreu Attending Unavailable Ciro, Jessica Primary Care Unavailable Brady, Josemanuel Referring Unavailable Trey Bob Attending Unavailable Chicorelli, Ginny Referring Unavailable Brady, Josemanuel Attending Unavailable Ciro, Jessica Referring Unavailable Ciro, Jessica Primary Care Unavailable Josemanuel Abreu Attending Unavailable Josemanuel Abreu Referring Unavailable Ciro, Jessica Primary Care Unavailable Ciro, Jessica Attending Unavailable Ciro, Jessica Referring Unavailable Ciro, Jessica Primary Care Unavailable Ken Amezquita Attending Unavailable Ciro, Jessica Referring Unavailable Ciro, Jessica Primary Care Unavailable Chicorelli, Ginny Attending Unavailable Ciro, Jessica Referring Unavailable Ciro, Jessica Primary Care Unavailable Chicorelli, Ginny Attending Unavailable Chicorelli, Ginny Referring Unavailable Ciro, Jessica Primary Care Unavailable PROBLEMS PROBLEMS DATE TYPE CONDITION / CODE ATTENDING STATUS SOURCE 11/02/2018 Unknown J06.9 - Acute upper Ciesa, Nell Active [place] respiratory infection, Community unspecified / Hospital J06.9(ICD-10) Repository 07/12/2018 Unknown M79.673 - Pain in Rosey, Active [place] unspecified foot / Ginny Community M79.673(ICD-10) Hospital Repository 07/05/2018 Unknown Z96.612 - Presence of Josemanuel Abreu Active [place] left artificial Community shoulder joint / Hospital Z96.612(ICD-10) Repository 05/12/2018 Unknown Z78.0 - Asymptomatic Ciro, Active [place] menopausal state / Jessica [facility] Z78.0(ICD-10) Hospital Repository 04/25/2018 Unknown M25.512 - Pain in left Josemanuel Abreu Active [place] shoulder / Community M25.512(ICD-10) Hospital Repository 03/28/2018 Unknown S42.292A - Other Josemanuel Abreu Active [place] displaced fracture of Community upper end of left Hospital humerus, initial Repository encounter for closed fracture / S42.292A(ICD-10) 03/28/2018 Unknown M79.671 - Pain in Josemanuel Abreu Active [place] right foot / Community M79.671(ICD-10) Hospital Repository 04/20/2018 Unknown R94.31 - Abnormal Trey Bob Active [place] electrocardiogram Community [ECG] [EKG] / Hospital R94.31(ICD-10) Repository 03/01/2018 Unknown S42.209A - Unspecified Chicorelli, Active [place] fracture of upper end Ginny [facility] of unspecified Hospital humerus, initial Repository encounter for closed fracture / S42.209A(ICD-10) 03/01/2018 Unknown M25.422 - Effusion, Rosey, Active [place] left elbow / Ginny Community M25.422(ICD-10) Hospital Repository 02/20/2018 Unknown S42.202A - Unspecified Southern, Active [place] fracture of upper end Chelle Community of left humerus, Hospital initial encounter for Repository closed fracture / S42.202A(ICD-10) 02/20/2018 Unknown S92.321A - Displaced Southern, Active [place] fracture of second Chelle [facility] metatarsal bone, right Hospital foot, initial Repository encounter for closed fracture / S92.321A(ICD-10) PROCEDURES PROCEDURES No Procedure Records FoundRESULTS RESULTS CHEST PA AND LATERAL Observed: 12/01/2018 Status: F Source: [place] 2:11 PM [facility] Imaging Services [address] [place] [address] Chest PA and Lateral MR#: [id number] Acct: [id number] Name: SUE BRIGGS Rep #: [id number] : 1945 F 73 From: Paula Pichardo MD PCP: Jessica Tanner DO Status: REG CLI Study: Chest PA and Lateral Date of Exam: 12/01/18 Exam# [id number] Ordering Dr: Tamia Wood STUDY: X-RAY CHEST REASON FOR EXAM: Female, 73 years old. Cough TECHNIQUE: PA and lateral views of the chest. COMPARISON: November 25, 2018 FINDINGS: There is no new focal consolidation. The lungs remain hyperinflated. There is no demonstrated pleural abnormality. Normal size heart. Normal mediastinum and ester. Normal visualized pulmonary arteries. Normal visualized aortic arch and descending thoracic aorta. There are diffuse degenerative changes of the visualized thoracic spine. There is a left shoulder arthroplasty in place. There is no demonstrated abnormality of the visualized soft tissue structures of the upper abdomen. RAD/Chest PA and Lateral IMPRESSION: Stable examination demonstrating no acute cardiopulmonary process. Electronically Signed: Paula Pichardo MD at 16:04 EST Tel , Service support , CC: CAMRYN-C Tamia Wood; Jessica Tanner DO Compliance Advisor: Signed CHEST PA AND LATERAL Observed: 11/25/2018 Status: F Source: [place] 12:22 PM [facility] REPOSITORY [facility] Imaging Services [address] [place] [address] Chest PA and Lateral MR#: [id number] Acct: [id number] Name: SUE BRIGGS Rep #: [id number] : 1945 F 73 From: Yousif Hathaway MD PCP: Jessica Tanner DO Status: REG CLI Study: Chest PA and Lateral Date of Exam: 11/25/18 Exam# [id number] Ordering Dr: Nell Yeager PROFESSOR OF PRACTICE-C STUDY: X-RAY CHEST REASON FOR EXAM: Female, [...] spine. Left shoulder replacement. There is no demonstrated abnormality of the visualized soft tissue structures of the upper abdomen. RAD/Chest PA and Lateral IMPRESSION: Hyperinflation. The lungs are clear. Electronically Signed: Yousif Hathaway MD at 12:50 EST Tel [phone], Service support , CC: Nell Yeager PROFESSOR OF PRACTICE; Jessica Tanner DO Compliance Advisor: Signed Observed: 11/02/2018 Status: F Source: [place] RSV AG (RAPID LEVI) 2:35 PM [facility] RSV Ag (LEVI) Normal Reference Range = Negative RSV Ag NEGATIVE Performed By: #### M100.6601 #### [facility]. [place], [place], [address] DISCHARGE INSTRUCTION Observed: 10/29/2018 Status: F Source: [place] 3:13 PM [facility] Medical Records Department [address] [address] Discharge Instruction 10/29/18 1511 MR#: [id number] Acct: [id number] Name: SUE BRIGGS Rep #: [id number] : 1945 73 From: Stephany Francois DO PCP: Jessica Tanner DO Status: REG ER ED Disposition - Plan for ED Patient: Chief Complaint: Cough Instructions: ED Bronchitis Asthmatic Prescriptions: Albuterol Aerosols [Ventolin Aerosols] 2.5 mg [...] your Primary Care Provider. Call [facility] ([phone]) or report to the closest Emergency Room. Call 911 if necessary. 10/29/18 1513 <Electronically signed by Stephany Francois DO> Date Stephany Francois DO Cosigner Signature (If Indicated): Date CC: Jessica Tanner DO EMERGENCY DEPARTMENT Observed: 10/29/2018 Status: F Source: [place] SUMMARY 3:11 PM [facility] Medical Records Department [address] [place] [address] Emergency Department Summary 10/29/18 1509 MR#: [id number] Acct: [id number] Name: SUE BRIGGS Rep #: [id number] : 1945 73 From: Stephany Francois DO PCP: Jessica Tanner DO Status: REG ER - ER Visit Summary Date of Service: 10/29/18 Chief Complaint: [Cough] History of Present Illness: The patient is a 73 F [presents to the emergency department with cough that started yesterday. Patient states the cough is nonproductive. Patient denies any fever. She does have a history of asthma and she felt like she was wheezing this morning. Patient denies any chest pain. Denies any sick contacts.] Physical Examination: [HEENT-PERRLA, EOMI. Cranial nerves II through XII grossly intact. TMs clear. Mucous membranes moist. No adenopathy. Cardiovascular-regular rate and rhythm without murmur or ectopy Lungs-decreased breath sounds bilaterally with some pain X Tory wheezes noted. No accessory muscle use or retractions. Abdomen-normoactive bowel sounds, soft, nontender, no rebound or rigidity, no peritoneal signs. Extremities-intact 4, normal range of motion, normal pulses, atraumatic] Test Results: [Influenza screen was negative. Chest x-ray obtained read by myself as no acute infiltrates however official from radiology is pending.] Emergency Department Course and Treatment: Patient was given a DuoNeb aerosol she did feel improved after treatment. Patient was given a dose of prednisone.] Treatment Plan: [Patient will be written a prescription for albuterol MDI as well as albuterol solution for nebulizer and a prescription for prednisone. Patient advised to follow-up with primary care physician within next 5-7 days.] Disposition: [Discharged home in stable condition. Patient advised to return if increasing shortness of breath or condition should worsen anyway.] Impression: [Asthmatic bronchitis] This note was generated with SYSTR[employer] dictation software. It may contain incorrect words, spelling, and punctuation that were not noted in review of the chart prior to signing ED Disposition - Plan for ED Patient: Chief Complaint: Cough Referrals: Jessica Tanner, [Primary Care Provider] - What to do if you have Problems For any increased pain, shortness of breath, bleeding, nausea or vomiting, chest pain, or any unexpected problems, contact your Primary Care Provider. Call [facility] ([phone]) or report to the closest Emergency Room. Call 911 if necessary. 10/29/18 1511 <Electronically signed by Stephany Francois DO> Date Stephany Francois DO Cosigner Signature (If Indicated): Date CC: Jessica Tanner DO Observed: 10/29/2018 Status: F Source: [place] INFLUENZA A+B (RAPID 1:40 PM [facility] [place] REPOSITORY FLU A/B Rapid Negative test results should be confirmed with FLU PANEL MOLECULAR if indicated. Influenza Ag, Direct Presumptive NEGATIVE for Influenza A/B Antigen (See Note) Performed By: #### M101.0101 #### [facility] [address] [place], [address] CHEST PA AND LATERAL Observed: 10/29/2018 Status: F Source: [place] 12:43 PM [facility] Imaging Services [address] [place] [address] Chest PA and Lateral MR#: [id number] Acct: [id number] Name: SUE BRIGGS Rep #: [id number] : 1945 F 73 From: Jay Jones MD PCP: Jessica Tanner DO Status: [facility] Study: Chest PA and Lateral Date of Exam: 10/29/18 Exam# [id number] Ordering Dr: Stephany Francois DO STUDY: X-RAY [...] arch and descending thoracic aorta. There are degenerative changes of the visualized thoracic spine. Right shoulder prosthesis is again seen. There is no demonstrated abnormality of the visualized soft tissue structures of the upper abdomen. RAD/Chest PA and Lateral IMPRESSION: No active pulmonary disease. Electronically Signed: Jay Jones MD at 15:25 EST Tel , Service support , CC: Jessica Tanner DO; Stephany Francois DO Compliance Advisor: Signed ORTHOPEDIC VISIT Observed: 07/21/2018 Status: F Source: [place] REPORT 5:15 PM [facility] Orthopaedics AND Sports Medicine [address] [place] [address] [address] [place] [address] OFFICE VISIT Date of Service: 07/12/18 MR#: [id number] Acct: [id number] Name: SUE BRIGGS Rep #: [id number] : 1945 Provider: Ginny Currie DO Age/Sex: 72/F Location: [facility] [place] Status: Signed Intake Intake Visit Reasons: right foot Is patient in pain?: Yes Allergies adhesive Adverse Reaction (Verified 06/07/18 15:31) [...] Never smoker HPI right foot: Details: SUE BRIGGS is a 72 year old F here today for f/u on her injured right foot. She wore a boot for approximately 6wks. Today she complains of pain over the anterior of the foot at the 4th and 3rd metatarsals. She complains of sharp pain when she has been [...] anterior foot ) Exam: absent TTP FX site Dorsiflexion 0-20: 20 degrees Plantar Flexion 0-40: 40 degrees Assessment AND Plan 1. Right foot pain M79.671 Plan X-rays were reviewed. There is good healing at the old fracture site. She has swelling today and we will refer to Dr Corona for consult. Explained that a fracture once healed can change the cascade of the foot and make the other metatarsals hurt. Follow up with Dr Corona or sooner if pain, swelling, numbness or associated symptoms, or concerns develop. All questions answered. Patient in agreement of plan. Plan Detail Other Orders Orders: Coding Level of Care Code Off vis,est,level 3 Diagnoses Right foot pain M79.671 07/21/18 8334 <Electronically signed by Ginny Currie DO> Date [facility] DO [facility] Signature: Date (if applicable) CC: FOOT MIN 3 VIEWS Observed: 07/12/2018 Status: F Source: [place] 2:43 PM [facility] Imaging Services [address] [place] [address] Foot min 3 Views MR#: [id number] Acct: [id number] Name: SUE BRIGGS Rep #: [id number] : 1945 F 72 From: Mario Salguero MD PCP: Jessica Tanner DO Status: REG CLI Study: Foot min 3 Views Date of Exam: 07/12/18 Exam# [id number] Ordering Dr: Ginny Currie DO STUDY: X-RAY - RIGHT FOOT CLINICAL: Pain. TECHNIQUE: 3 view(s) of the foot. COMPARISON: Radiographs 03/28/2018. FINDINGS: There is osteopenia. There are posterior and plantar calcaneal enthesophytes. There is a type II accessory navicular. There are dorsal osteophytes and joint space narrowing of the first and second tarsometatarsal joints. Normal metatarsi. Normal metatarsophalangeal joint of the great toe. Normal tibial and fibular sesamoid bones. Normal interphalangeal joint of the great toe. Normal phalanges of the great toe. Normal second through fifth metatarsophalangeal joints. Normal interphalangeal joints and phalanges of the lesser toes. The soft tissue structures are unremarkable. 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 Calcaneal enthesopathy. Osteopenia. Electronically Signed: Mario Salguero MD at 13:33 EDT Tel , Service support , CC: Ginny Currie DO; Jessica Tanner DO Compliance Advisor: Signed PT D/C SUMMARY (1) Observed: 07/05/2018 Status: F Source: [place] 1:48 PM [facility] Physical Therapy [facility] [address] [facility] [place] [address] Fax REHABILITATION SERVICES DISCHARGE SUMMARY MR#: [id number] Acct: [id number] Name: SUE BRIGGS Rep #: [id number] : 1945 72 From: Violetta Lazcano PT, Cert. MDT Referring Dr.: Josemanuel Abreu DO Status: REG RCR Insurance: MEDICARE PART A B ANTHEM HP - PT D/C Summary It has been my pleasure to treat SUE BRIGGS under orders from Josemanuel Abreu DO, for the diagnosis of LEFT RTSA WITH SUBSCAP REPAIR for a total of 34 visit(s). Discharge Date: Please see the following information for a summary of their discharge status. - Subjective Subjective: PATIENT REPORTS SHE WAS ABLE TO WASH HER BIG WINDOWS LAST WEEK AND SHE HAS A LOT OF THEM. PATIENT REPORTS SHE WAS ABLE TO WASH AND BLOW DRY HER HAIR NOW TOO. FOLLOW UP WITH DR. CURRIE PENDING AUG 2018 - Pain LEFT SHOULDER Pain Intensity (Out of 10): 0 - Overall Improvement % Improvement: 85 - Objective Objective/Function: PATIENTS [...] HAS GOOD ELBOW FLEX/EXT STRENGTH AND LEFT DATA CODER OPERATOR STRENGTH = 45 LBS COMPARED TO 55LBS ON HER DOMINANT HAND (R). LEFT SHOULDER FLEX STRENGTH IS 3-/5, SCAPTION 2+/5, IR 3-/5, ER 2-/5. OVER-ALL AT ALMOST 12 WEEKS POST OP SHE HAS EXCEEDED MY EXPECTATIONS. DASH SCORE HAS IMPROVED SINCE LAST RE-CHECK FROM 68 TO 40. PATIENT COMMUNICATES A GOOD UNDERSTANDING OF PROTOCOL FOR 12+ WEEKS POST OP (PHASE 6). - Goals Goal 1:: INCREASE FUNCTIONAL ROM OF LEFT UE Goal Progress: Goal Met Goal 2:: INCREASE FUNCTIONAL STRENGTH OF LEFT UE Goal Progress: Goal Met Goal 3:: DECREASE C/O LEFT SHOULDER AND UPPER ARM PAIN Goal Progress: Goal Met Goal 4:: INDEP HEP Goal Progress: Goal Met - Plan Plan: D/C TO INDEP HEP. PATIENT IS AGREEABLE. - D/C Information If there are questions or concerns regarding this patient's physical therapy, please feel free to call me at [phone]. Thank you for the referral of this patient. Sincerely, Violetta Lazcano <Electronically signed by Violetta Lazcano PT, Cert. MDT> 07/05/18 1348 CC: Jessica Tanner DO; Josemanuel Abreu DO HUSSEIN Signed ORTHOPEDIC VISIT Observed: 06/20/2018 Status: F Source: [place] REPORT 3:[address] [facility] Orthopaedics AND Sports Medicine [address] [place] [address] OFFICE VISIT Date of Service: 06/07/18 MR#: [id number] Acct: [id number] Name: SUE BRIGGS Rep #: [id number] : 1945 Provider: KRISTIN Amezquita Age/Sex: 72/F Location: [facility] Status: Signed Intake Intake Visit Reasons: f/u rt foot fx and lt shoulder ORIF dos 03/09/18 Is patient in pain?: No Allergies adhesive [...] lt shoulder ORIF dos 03/09/18: Details: SUE BRIGGS is a 72 year old F here [...] has soreness after many daily activities. ROS Const Reports system reviewed and no [...] 0-60 (30) SHOULDER: Patient's sensation is full intact on the entire upper extremity. Her AROM has improved from previous visit at the same time still shows decrease in her overall motion. We can passively get more motion. Her strength against resistance is still decreased at the same time she is starting to gain strength. She does not have pains to palpation. No adenopathy. No skin changes. Assessment AND Plan Problems 1. 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 She still has occasional pains with use but improving all the time. HEr ROM has improved [...] total replacement of left shoulder Z96.612 06/20/18 1499 <Electronically signed by Ken FOSTER> Date Ken FOSTER Cosigner Signature: Date (if applicable) CC: RE-EVALUATION - PT (1) Observed: 06/06/2018 Status: F Source: [place] 12:22 PM [facility] [address] [place] [address] Fax REEVALUATION / MEDICARE RECERTIFICATION PHYSICAL THERAPY MR#: [id number] Acct: [id number] Name: SUE BRIGGS Rep #: [id number] : 1945 72 From: Violetta Lazcano PT, Cert. MDT Referring Dr.: Josemanuel Abreu DO Status: REG RCR Insurance: MEDICARE PART A B CASSIUS Abreu DO, It has been my pleasure to treat SUE BRIGGS over the last 28 visits for LEFT RTSA WITH SUBSCAP REPAIR. Please see the progress note below for an update on the physical therapy plan of care! Subjective: PATIENT REPORTS THAT AT TIMES HER LEFT SHOULDER FEELS NORMAL AND THAT IS A BIG IMPROVEMENT. SHE REPORTS SHE IS DOING A LOT OF THINGS WITH NO PROBLEM. IT IS GETTING EASIER TO SLEEP AT [...] HAS SIGNIFICANT POOR SHOULDER MECHANICS WITH SHOULDER HIKING WITH AROM AGAINST GRAVITY THEREFORE WE ARE CONTINUING PASSIVE AND AA REPEATIVE ROM VS AROM. IN SITTING, LEFT SHOULDER FLEX AROM HAS IMPROVED FROM 75 DEG TO 88 DEG SINCE LAST RE-CHECK AND SUPINE LEFT SHOULDER PASSIVE FLEXION HAS IMPROVED FROM 110 DEG TO 130 DEG SINCE LAST RE-CHECK. DASH SCORE HAS IMPROVED SINCE LAST RE-CHECK [...] do not hesitate to contact me at [phone] by phone or if you have questions or concerns regarding this new plan of care! Sincerely, Violetta Lazcano <Electronically signed by Violetta Lazcano PT, Cert. MDT> 06/06/18 1222 CC: Jessica Tanner DO; Josemanuel Abreu DO HUSSEIN Signed For Medicare only, by signing this I certify the plan of care. Physicians Signature Date RE-EVALUATION - PT (1) Observed: 05/13/2018 Status: F Source: [place] 12:28 PM [facility] [address] [place] [address]. [address] [place] [address] Fax REEVALUATION / MEDICARE RECERTIFICATION PHYSICAL THERAPY MR#: [id number] Acct: [id number] Name: SUE BRIGGS Rep #: [id number] : 1945 72 From: Violetta Lazcano PT, Cert. MDT Referring DrMireille: Josemanuel Abreu DO Status: REG RCR Insurance: MEDICARE PART A B ANTHEM Josemanuel Abreu, DO, It has been my pleasure to treat SUE BRIGGS over the last 18 visits for LEFT RTSA WITH SUBSCAP REPAIR. Please see the progress note below for an update on the physical therapy plan of [...] MECHANICS WITH SHOULDER HIKING WITH AROM AGAINST GRAVITY THEREFORE WE ARE [...] do not hesitate to contact me at [phone] by phone or if you have questions or concerns regarding this new plan of care! Sincerely, Violetta Lazcano <Electronically signed by Violetta Lazcano PT, Cert. MDT> 05/13/18 1228 CC: Jessica Tanner DO; Josemanuel Abreu DO HUSSEIN Signed For Medicare only, by signing this I certify the plan of care. Physicians Signature Date DEXA BONE DENSITY Observed: 05/12/2018 Status: F Source: [place] STUDY 11:00 AM [facility] [place] [facility] Imaging Services [address] [place] [address] Dexa Bone Density Study MR#: [id number] Acct: [id number] Name: SUE BRIGGS Rep #: [id number] : 1945 F 72 From: Yousif Hathaway MD PCP: Jessica Tanner DO Status: REG CLI Study: Dexa Bone Density Study Date of Exam: 05/12/18 Exam# [id number] Ordering Dr: Jessica Tanner DO STUDY: DUAL ENERGY X-RAY ABSORPTIOMETRY / [...] Total: g/cm2 (0.812) / T-score (-1.6) / Z- score (0.0) Left Femoral Neck: g/cm2 (0.743) / T-score (-2.1) / Z- score (-0.3) Right Femur Total: g/cm2 (0.857) / T-score (-1.2) / Z- score (0.4) Right Femoral Neck: g/cm2 (0.791) / T-score (-1.8) / Z-score (0.0) The T-Scores on the most recent prior examination were: Lumbar Spine (L1-L4): There has been improvement of bone density since the previous examination. Left Femur Total: which represents a worsening of 3.7%. Right Femur Total: which represents a worsening of 5.5%. BD/Dexa Bone Density Study IMPRESSION: [...] the T-scores as follows: Above -1 Normal bone density Between -1 and [...] [email or web address] Electronically Signed: Yousif Hathaway MD at 15:14 EDT Tel [phone], Service support , CC: Jessica Tanner DO Compliance Advisor: Signed ORTHOPEDIC VISIT Observed: 05/05/2018 Status: F Source: [place] REPORT 10:30 AM [facility] [place] Orthopaedics AND Sports Medicine [address] [place] [address] [address] [place] [address] OFFICE VISIT Date of Service: 04/25/18 MR#: [id number] Acct: [id number] Name: SUE BRIGGS Rep #: [id number] : 1945 Provider: Josemanuel Abreu DO Age/Sex: 72/F Location: [facility] [place] Status: Signed Intake Intake Visit Reasons: LEFT [...] Never smoker HPI LEFT SHOULDER: Details: SUE BRIGGS is a 72 year old F here today for s/p left RTSA dos 03/11/18. Patient is doing well and is improving. She has been wearing her sling while away from her home. She has minimal pain and denies taking any pain medications. Patient is having trouble sleeping due to unable to lay on her side. Patient is currently in physical therapy which is helpful. Denies numbness, tingling or other associated symptoms. [...] Musc Reports muscle weakness, Reports stiffness Skin/Breast Reports system reviewed and no additional [...] Axillary muscular cutaneous functions are 5 out of 5. Patient able to resist abduction at this point. Range of motion limited on external rotation to about 25 as expected from her subscap osteotomy repair. Otherwise patient gets about maybe 45 for elevation currently active but passively I can get her up to about 95-100. X-rays: Evaluated by myself patient-hardware otherwise well- seated well-placed status post reverse total shoulder arthroplasty for a four-part proximal humerus fracture Assessment AND Plan Problems 1. Orthopedic aftercare Z47.89 Plan Assessment: After orthopedic status post left reverse total shoulder arthroplasty for a four-part humerus fracture. Stable. Plan: Patient will follow-up in [address] Mayers. Range of motion check specifically I do not think radiographs are necessary unless there is an issue. Did inform the patient there is been a long recovery time of this that she really needs to be working on her range of motion learning how to use her anterior deltoid give her as much power as possible. Patient had a significant fracture and also was aware [...] DO Cosigner Signature: Date (if applicable) CC: SHOULDER MIN 2 VIEWS Observed: 04/25/2018 Status: F Source: [place] 10:37 AM [facility] [place] [facility] Imaging Services [address] [place] [address] Shoulder min 2 Views MR#: [id number] Acct: [id number] Name: SUE BRIGGS Rep #: [id number] : 1945 F 72 From: Mario Salguero MD PCP: Jessica Tanner DO Status: REG CLI Study: Shoulder min 2 Views Date of Exam: 04/25/18 Exam# [id number] Ordering Dr: Josemanuel Abreu DO STUDY: X-RAY - LEFT SHOULDER REASON FOR EXAM: Pain, postoperative. TECHNIQUE: [...] No interval change of left shoulder arthroplasty. Electronically Signed: Mario Salguero MD at 14:21 EDT Tel , Service support , CC: Jessica Tanner DO; Josemanuel Abreu DO Compliance Advisor: Signed ORTHOPEDIC VISIT Observed: 04/06/2018 Status: F Source: [place] REPORT 9:[address] [facility] Orthopaedics AND Sports Medicine [address] [place] [address] OFFICE VISIT Date of Service: 03/28/18 MR#: [id number] Acct: [id number] Name: SUE BRIGGS Rep #: [id number] : 1945 Provider: Josemanuel Abreu DO Age/Sex: 72/F Location: [facility] Status: Signed Intake Intake Visit Reasons: LEFT SHOULDER Accompanied by: Is patient in pain?: Yes Pain scale (1-10): 2 [...] Never smoker HPI LEFT SHOULDER: Details: SUE BRIGGS is a 72 year old F here [...] Reports joint pain, Reports muscle weakness, Reports stiffness, Reports limited joint movement, Reports as per [...] and intact. X-rays:-Evaluated myself the patient-hardware otherwise well- seated well-placed status post left reverse total shoulder arthroplasty for four-part proximal humerus fracture. Assessment AND Plan Problems 1. Orthopedic aftercare Z47.89 Plan Assessment: After orthopedic status post left total shoulder arthroplasty for four-part proximal humerus fracture. Stable. Plan: At this point time [...] DO Cosigner Signature: Date (if applicable) CC: INITAL EVALUATION (1) Observed: 03/30/2018 Status: F Source: [place] PT 4:57 PM [facility] [place] Physical Therapy [address] [place], [place] [address] Fax REHABILITATION SERVICES INITIAL EVALUATION MR#: [id number] Acct: [id number] Name: SUE BRIGGS Rep #: [id number] : 1945 72 From: Violetta Lazcano PT, Cert. MDT Referring Dr.: Josemanuel Abreu DO Status: REG RCR Insurance: MEDICARE PART A B ANTH Patient's Visit Information SUE BRIGGS is a 72 year old F referred to Physical Therapy by Josemanuel Abreu DO with a diagnosis of LEFT RTSA WITH SUBSCAP REPAIR. Date of Evaluation: 03/30/18 Physical Therapist: Violetta Lazcano - Visit Plan Frequency: 2-3x /Week Duration: 3 Months Plan: CHECK INCISION. *NO LEFT SHOULDER INTERNAL ROTATION, EXTERNAL ROTATION, ADDUCTION OR CROSS BODY MOVEMENT - SEE THE [facility] REVERSE TOTAL SHOULDER ARTHROPLASTY PROTOCOL IN FOLDER. MOIST HEAT AND COLD PACK TREATMENTS NEEDED. POSTURE CORRECTION/STRENGTHENING, INSTRUCTION IN APPROPRIATE BODY MECHANICS AND ACTIVITY MODIFICATIONS. PEACE UE ROM, STRETCHING AND STRENGTHENING. HEP INSTRUCTION. - Subjective Subjective: Diagnosis: LEFT RTSA WITH SUBSCAP REPAIR. MAR 15 2018 (2 WEEKS PO). Work/Leisure: RETIRED. [employer] VOL[employer]TE[employer] EVERY OTHER MONTH ONE DAY. LIKES TO DO NEEDLE WORK. 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 READING. Disability: NO. Present symptoms: LEFT SHOULDER AND UPPER ARM PAIN. LEFT FOREARM AND HAND NUMBNESS/TINGLING. Present since: FEBRUARY 20 2017. Pain Scale: Worst - 5/10 Least - 0/10. Currently: 01/15. Commenced as a result of: FELL DOWN THE STEPS AND HIT THE DOOR FRAME WITH SHOULDER FX'ING LEFT SHOULDER AND RIGHT FOOT. Symptoms at onset: LEFT SHOULDER AND RIGHT FOOT. RIGHT SHOULDER PAIN. NO NECK PAIN. Worse: CERTAIN POSITIONS. MOVING IT THE WRONG WAY. Better: SLING. ALEVE. Disturbed sleep: YES - RLS. SLEEPING IN RECLINER. TRYING BED. WAKING UP WITH RIGHT SHOULDER PAIN TOO. Previous history/Previous treatment: HISTORY OF NECK PROBLEMS TREATED BY CHIROPRACTOR OFF AND ON FOR YEARS. NO HISTORY OF LEFT SHOULDER PROBLEMS PRIOR TO THIS. Dizziness: NO. Tinnitis: NO. Nausea: NO. Difficulty Swollowing: NO. Gait: NORMAL. Accidents: FALL DOWN STEPS AND BROKE LEFT ANKLE TREATED WITH ORIF ABOUT 5 YEARS AGO. Unexplained weight loss: NO. Imaging: YES - BEFORE AND AFTER SURGERY. PMH/Recent major surgery: PEACE TKR'S 1999, 2004 PEACE MASECTOMY FOR BREAST CANCER - NO CHEMO OR RADIATION. COPD. OTHER: PATIENT IS RIGHT HAND DOMINANT. - Objective Sitting Posture/Standing Posture: POOR. Other Observations: PATIENT PREFERRED TO TAKE SLING OFF UPON ENTERING BUT REPOSITIONED HER ARM OFF AND ON THROUGHOUT SESSION FOR COMFORT. Motor/ROM deficit: RUE ROM WFL. RIGHT UE 5/5 WITH MMT'ING EXCEPT RIGHT SHOULDER 4/5 AND PAIN WITH TESTING. NO ACTIVE FLEX LEFT SHOULDER. AROM LEFT WRIST AND HAND WFL. PATIENT IS ABLE TO FULLY ACTIVELY FLEX LEFT ELBOW WITH SHOULDER IR TO ABDOMEN BUT NOT IN SITTING OR LYING WHEN MOVING SHOULDER EXTERNALLY TOWARD MIDLINE. SHE HAS FULL ACTIVE ELBOW EXTENSION WITH SHOULDER IR TOO. PROM LEFT SHOULDER FLEXION IS 65 DEG. PASSIVE LEFT SHOULDER ER TO NEUTRAL WITH ELBOW AT SIDE. PATIENTS LEFT SHOULDER TESTING IS LIMITED BY PAIN. Sensory deficit: NO. Cervical Mvmt Loss: Flex: NIL. Pro: NIL. Ext: MOD TO BHUPINDER. Ret: BHUPINDER. RSB: BHUPINDER. [...] Goal Time Frame: 8-12 Weeks - Rehabilitation Potential Rehabilitation Potential: Good - Anticipated Interventions Patient/Client [...] pain, To decrease swelling/inflammation, To increase ROM Thank you for the opportunity to evaluate your patient. For Medicare and Medicare HMO plans, please review the plan of care and approve it. It will need to be FAXED BACK to us at [phone] for Medicare purposes. Please let me know if there are questions or concerns regarding this plan of care. Physician Signature: Date: <Electronically signed by Violetta Lazcano PT, Cert. MDT> 03/30/18 3647 CC: Jessica Tanner DO; Josemanuel Abreu DO HUSSEIN Signed For Medicare only, by signing this I certify the plan of care. Physicians Signature Date FOOT 2 VIEWS Observed: 03/28/2018 Status: F Source: [place] 10:31 AM [facility] [place] Imaging Services [address] [place] [address] Foot 2 Views MR#: [id number] Acct: [id number] Name: SUE BRIGGS Rep #: [id number] : 1945 F 72 From: Brett Hedrick DO PCP: Jessica Tanner DO Status: REG CLI Study: Foot 2 Views Date of Exam: 03/28/18 Exam# [id number] Ordering Dr: Josemanuel Abreu DO STUDY: X-RAY - RIGHT FOOT CLINICAL: Female, 72 years old. Foot pain. TECHNIQUE: 2 view(s) of the foot. COMPARISON: None. FINDINGS: There is generalized osteopenia. There are enthesophytes at the insertions of the Achilles tendon and plantar aponeurosis upon an otherwise normal calcaneus. Normal talus and tarsal bones. There is mild arthrosis visualized subtalar, talonavicular, calcaneocuboid, tarsal and tarsometatarsal articulations. Normal metatarsi. There is mild degenerative arthrosis of the metatarsophalangeal joint of the hallux . Normal tibial and fibular sesamoid bones. Normal interphalangeal joint of the great toe. Normal phalanges of the great toe. Normal second through fifth metatarsophalangeal joints. Normal interphalangeal joints and phalanges of the lesser toes. The soft tissue structures are unremarkable. RAD/Foot 2 Views IMPRESSION: Osteopenia and arthrosis of the right foot without fracture or dislocation. Electronically Signed: Brett Hedrick DO at 17:03 EDT Tel [phone], Service support , CC: Jessica Tanner DO; Josemanuel Abreu DO Compliance Advisor: Signed SHOULDER MIN 2 VIEWS Observed: 03/28/2018 Status: F Source: [place] 10:25 AM [facility] [place] Imaging Services [address] [place] [address] Shoulder min 2 Views MR#: [id number] Acct: [id number] Name: SUE BRIGGS Rep #: [id number] : 1945 F 72 From: Brett Hedrick DO PCP: Jessica Tanner DO Status: REG CLI Study: Shoulder min 2 Views Date of Exam: 03/28/18 Exam# [id number] Ordering Dr: Josemanuel Abreu DO STUDY: X-RAY [...] Again seen is small bony fragments along the upper aspect of the humerus which appear unchanged from previous study. There is degenerative arthrosis of the acromioclavicular joint without inferior osseous spur formation. Normal acromion. The soft tissue structures are unremarkable. The soft tissue air seen on the prior study no longer present. Normal visualized pulmonary apex. RAD/Shoulder min 2 Views IMPRESSION: No major change when compared with study of March 15, 2018. Electronically Signed: Brett Hedrick DO at 17:02 EDT Tel [phone], Service support , CC: Jessica Tanner DO; Josemanuel Abreu DO Compliance Advisor: Signed ORTHOPEDIC VISIT Observed: 03/23/2018 Status: F Source: [place] RE[place] 2:04 PM [facility] [place] [facility] Orthopaedics AND Sports Medicine [address] [facility] [address] [place] [address] OFFICE VISIT Date of Service: 03/11/18 MR#: [id number] Acct: [id number] Name: SUE BRIGGS Rep #: [id number] : 1945 Provider: Josemanuel Abreu DO Age/Sex: 72/F Location: [facility] [place] [place] Status: Signed Intake Intake Visit Reasons: LEFT SHOULDER Is patient in pain?: Yes Allergies adhesive Adverse Reaction (Verified 03/11/18 10:06) [...] 03/09/18] Fexofenadine HCl 180 mg PO DAILY 02/20/18 [History Confirmed 03/09/18] Fluticasone Propionate [Flovent Diskus] [...] PO Q4H PRN PRN #60 tab 03/16/18 [Rx] proMETHazine tablet [Phenergan] 25 mg PO Q4H PRN PRN #10 tab 03/16/18 [Rx] morphine ER 15 mg tablet,extended release 15 mg PO Q12H #10 tab 03/17/18 [Rx] HPI LEFT SHOULDER: Details: SUE BRIGGS is a 72 year old F here today for left shoulder followup. She continues to have shoulder pain. She has been wearing her sling at all times. Patients bruising has improved. She would like to discuss her surgery options as Dr Currie was [...] additional complaints, except as docu Ortho Exam Right Shoulder Skin/Wound: Yes CDI Contralateral Normal: Yes Testing: Positive AROM-External Rotation at 90 0-60, PROM- External Rotation at side 0-60, PROM-Forward Elevation 0-180, PROM-External Rotation at 90 0-60, AROM-External Rotation at side 0-60 and AROM-Forward Elevation 0-180 Internal Rotation: Tip of Scapula Left Shoulder SHOULDER: General: well developed, well nourished in no acute distress. Head: normocephalic and atraumatic Pulses: pulses normal in all 4 extremities. Neurologic: no focal deficits, cranial nerves II-XII grossly intact with normal sensation, reflexed, coordination, muscle strength and tone. Axillary Nodes: no significant adenopathy. Psych: alert and cooperative, normal mood and affect, normal attention span and concentration. Heart regular S1-S2 lungs clear to auscultation bilaterally abdomen soft nontender nondistended with no gross specimen or megaly. Left shoulder-patient is a limited range of motion secondary to her four-part proximal humerus fracture. However the patient is able to fire her deltoid against my hand indicative the axillary nerve still intact. She has been sensation over the lateral deltoid. Patient able to flex and extend the elbow without difficulty and perform prone supination. She has good sensation of the lateral enterocutaneous nerve. No extra adenopathy +[address] examination-patient has a comminuted four-part proximal humerus fracture with an inferior fracture of the anatomic neck region. Minimal medial calcar is represented. Assessment AND Plan Problems 1. Closed 4-part fracture of proximal end of left humerus with routine healing, subsequent encounter S42.337D Plan Assessment: Left closed 4 part proximal humerus fracture. Plan: Point time the patient is here to re-sign her consent for a reverse total shoulder arthroplasty. Patient was initially going to undergo a open reduction internal fixation versus possible reverse total shoulder arthroplasty for four-part proximal humerus fracture last week. However due to implant issues the patient at this point time [...] reverse total shoulder. We will make an attempt to try to reimplant at least one of the tuberosity specifically the lesser. Her greater tuberosity showed some degree of comminution and I am not sure if try to reattach that is going to be difficult and/or be beneficial quite honestly in the long-term as the patient could gain stiffness trying to wait for the prostheses to heal into these fracture stems which is not my opinion quite likely. Patient has been informed that there is always risk for DVT is very low and we will use aspirin for DVT prophylaxis. Ultimately the patient be able to flex and extend the elbow as tolerated and we will limit her range of motion based on the integrity of the subscapularis. This fracture is roughly 3-4 weeks old going into the procedure time which may result in some increased time for the operative procedure and risk for bleeding. This point time [...] by PCP/other phy10 mg PO Q12H S42.292A sicians Coding Level of Care Code Off vis,est,level 4 Diagnoses Closed 4-part fracture of proximal end of left humerus with routine healing, subsequent encounter S42.292D Encounter type: subsequent encounter Fracture healing: with routine healing 03/23/18 1404 <Electronically signed by Josemanuel Abreu DO> Date Josemanuel Abreu DO Cosigner Signature: Date (if applicable) CC: DISCHARGE SUMMARY Observed: 03/17/2018 Status: F Source: [place] 7:54 AM [facility] [place] [facility] Medical Records Department [address] [place] [address] Discharge Summary 03/17/18 0751 MR#: [id number] Acct: [id number] Name: SUE BRIGGS Rep #: [id number] : 1945 72 From: Josemanuel Abreu DO PCP: Jessica Tanner DO Status: ADM [place] Y Location: [facility] [place] [id number] Discharge Summary Date of Admission: 03/15/18 Date of Discharge: 03/17/18 Summary: 72-year-old female status post left reverse total shoulder arthroplasty for four-part proximal humerus fracture. Patient was admitted after operation for 24 hours of IV antibiotics appropriate IV and p.o. pain medication and DVT prophylaxis to include SCDs teds early aggressive range of motion and aspirin 81 mg p.o. twice daily. Patient tolerated regular diet required some modification to her medications but at this point time feels like she is capable of going home. Patient has been seen by physical therapy and occupational therapy and has done well. No other reported issues at this time. Assessment: [facility] status post left reverse total shoulder arthroplasty for four-part proximal humerus fracture. Doing well. Plan: Discharge patient home at this time. Will make an attempt to add 10 mg p.o. twice daily of OxyContin in addition to her Percocet order. If denied I will order MS Contin. Patient will [facility] I will send the physical therapy prescription over along with my rehab protocol. Patient may shower at this time. Do not submerge wound but showering okay. Dressing stays on for a total of 5-7 days from date of operation. There are any issues please contact me. 03/17/18 0754 <Electronically signed by Josemanuel Abreu DO> Date Josemanuel Abreu DO Cosigner Signature (if applicable): Date CC: Jessica Tanner DO; Josemanuel Abreu DO Signed DISCHARGE INSTRUCTION Observed: 03/16/2018 Status: F Source: [place] 1:13 PM [facility] [place] [facility] Medical Records Department [address] [place] [address] Instructions for Home/Discharge Instructions 03/16/18 1311 MR#: [id number] Acct: [id number] Name: SUE BRIGGS Rep #: [id number] : 1945 72 From: Josemanuel Abreu DO PCP: Jessica Tanner DO Status: ADM IN Discharge Activity: Return to Normal Activity, May not drive while taking narcotic pain medications., May Shower, - - Sling 24 7 except for shower. May flex and extend elbow ad emily. 15 of internal and external rotation. Active assisted forward elevation to 75 . No active abduction external rotation at this time. May shower in (days): 1 May resume sexual activity in: 8 weeks Ice area for (Minutes): 20 Weight Bearing Status: No weight bearing Lifting Restrictions: No Lifting Call your doctor if your incision/area has: Continuous Slow Oozing, Sudden Increased Bleeding, Increased Pain/ Swelling, Increased Redness, Foul Smelling Discharge Call your doctor if you observe: Fever of 101 or Higher, Coldness, Increased Pain, Numbness or Tingling, Change in Color, Calf discomfort Suture Line Care: Avoid Pulling/Pushing, Avoid Pinching/Bending Change Dressing in (Days):: 5 Remove Dressing in (days):: 5 Cleanse incision/area with: Soap AND Water Additional Dressing/Incision Instructions:: Dressing in 5 days and less irritation. Shower but do not submerge wound. Allergies/Adverse Reactions: Allergies adhesive Adverse Reaction (Verified 03/11/18 10:06) Rash latex Adverse Reaction (Verified 03/11/18 10:06) Rash Medications to take at Discharge Asmanex 2 puff IH DAILY 02/20/18 Calcium Carbonate/Vitamin D3 [Calcium 600-Vit D3 200 Tablet] 1 ea PO BID 02/20/18 Cholecalciferol (Vitamin D3) [Vitamin D3] 2,000 unit PO BID 02/20/18 Cinnamon Bark [Cinnamon] 1,000 mg PO DAILY 02/20/18 Citalopram Hydrobromide [Celexa] 20 mg PO DAILY 02/20/18 Fexofenadine HCl 180 mg PO DAILY 02/20/18 Fluticasone Propionate [Flovent Diskus] 50 mcg IH QHS 02/20/18 L.acidoph,Paracasei, B.lactis [Probiotic] 1 ea PO DAILY 02/20/18 Lovastatin [Altoprev] 20 mg PO QODAY 02/20/18 Multivitamin,Therapeutic [Thera] 1 ea PO DAILY 02/20/18 Omeprazole [Prilosec] 20 mg PO DAILY 02/20/18 Docusate Sodium [Colace] 100 mg PO BID PRN PRN #10 cap 03/16/18 Oxycodone HCl/Acetaminophen [Percocet 5/325] 1 - 2 tablet PO Q4H PRN PRN #60 tablet 03/16/18 proMETHazine tablet [Phenergan] 25 mg PO Q4H PRN PRN #10 tab 03/16/18 The following prescriptions were given: Oxycodone HCl/Acetaminophen [Percocet 5/325] 1 - 2 tablet PO Q4H PRN PRN #60 tablet PRN Reason: Pain proMETHazine tablet [Phenergan] 25 mg PO Q4H PRN PRN #10 tab PRN Reason: Nausea Docusate Sodium [Colace] 100 mg PO BID PRN PRN #10 cap PRN Reason: Constipation Primary Care Physician: Jessica Tanner DO [Primary Care Provider] - Please Follow Up With: Josemanuel Abreu DO When: CALL [facility] FOR APPT FOR 2 WEEKS Proposed Discharge Date: 03/16/18 03/16/18 1313 <Electronically signed by Josemanuel Abreu DO> Date Josemanuel Abreu DO CC: Jessica Tanner DO BASIC METABOLIC Collected: 03/16/2018 Status: F Source: [place] PROFILE (BMP) 5:35 AM [facility] [place] TYPE CODE TESTS RESULT OUT OF RANGE REFERENCE UNITS LAB L501.0100 74-106 mg/dL High GLU 118 Result Comment: Fasting Glucose result from 100 to 125 mg/dL suggests IMPAIRED HOMEOSTASIS per A.D.A. criteria. Please note revised GLUCOSE reference range effective 2017. LAB L501.1000 7-18 mg/dL Normal BUN 9 LAB L501.1100 0.55-1.02 mg/dL Normal CREAT,SERUM 0.57 Result Comment: The validity of the calculated GFR AND GFRAA in patients over 70 years has not been determined. Clinical correlation is essential. LAB L501.1110 >60 mL/min Normal EST GFR 111 Result Comment: Non- GFR Calc LAB L501.1115 >60 mL/min Normal EST GFR - AA 135 Result Comment: GFR Calc LAB L501.1255 ml/min Normal Estimated CRCL 43.91 LAB L501.1300 10-20 RATIO Normal BUN/CRE 15.8 LAB L501.2200 8.5-10 mg/dL Low .1 CA 8.1 LAB L501.5300 136-14 mmol/L Normal 5 NA 139 LAB L501.5600 3.5-5. mmol/L Normal 1 K 4.4 LAB L501.5900 98-107 mmol/L Normal CL 103 LAB L501.6100 21.0-3 mmol/L Normal 2.0 CO2 30.0 LAB L501.6200 5-15 Normal GAP 6 Performed By: #### L500.2500 #### [facility] [address] [place], [address] CBC-COMPLETE BLOOD CNT Collected: 03/16/2018 Status: F Source: [place] NO DIFF 5:35 AM [facility] [place] TYPE CODE TESTS RESULT OUT OF RANGE REFERENCE UNITS LAB L100.1000 4.4-11.0 K/mm3 Normal WBC 10.4 LAB L100.1200 4.2-5.4 M/mm3 Low RBC 3.03 LAB L100.1300 12.0-15.0 g/dl Low HGB 9.0 LAB L100.1400 37-47 % Low HCT 27.7 LAB L100.1500 81-99 fL Normal MCV 91.4 LAB L100.1600 27.0-32.0 pg Normal MCH 29.7 LAB L100.1700 32-36 g/gl Normal MCHC 32.5 LAB L100.1810 11.6-14.6 % Normal RDW CV 13.4 LAB L100.1820 35.1-43.9 fl Normal RDW SD 43.7 LAB L100.1900 150-450 K/mm3 Normal PLT 289 LAB L100.2000 6.2-12.0 fl Normal MPV 10.0 Performed By: #### L100.0500 #### [facility] [address] [place], [address] OPERATIVE REPORT Observed: 03/15/2018 Status: F Source: [place] 6:03 PM [facility] [place] [facility] Medical Records Department [address] [place] [address] Operative Report 03/15/18 1751 MR#: [id number] Acct: [id number] Name: SUE BRIGGS Rep #: [id number] : 1945 72 From: Josemanuel Abreu DO PCP: Jessica Tanner DO Status: ADM IN Y Location: MS3 [id number] Report of Operation Date of Procedure: 03/15/18 Pre-Operative Diagnosis: Left shoulder 4 part proximal humerus fracture Post-Operative Diagnosis: Same as above Surgery/Procedure Performed:: Left reverse total shoulder arthroplasty using the Luly reunion fracture stem Description of Surgical Findings:: 72-year-old female who sustained a fall from standing height resulting in a closed 4 part proximal humerus fracture. CT examination confirmed a 4 part proximal humerus fracture with significant displacement and impaction of the humeral head and a nondisplaced coracoid fracture. The patient was originally a patient of Dr. Currie but due to issues with implants at the time of initial planning for operative intervention last week the patient was transferred to my care due to the absence of Dr. Currie. The patient was counseled and consented for a reverse total shoulder arthroplasty using fracture stem at this time. Patient was met in the holding area where her left upper extremity was marked and identified by the with surgeon. Patient was taken to the operating room in satisfactory condition with somewhat to place to identify patient operative procedure and limb. Patient received 2 g of Ancef. Please note the patient's muscle cutaneous and exiting nerve function was 5 out of 5 prior to operative intervention. Patient was simply placed in the beachchair position with all bony and soft tissue prominences protected and her head was in a fine neutral position. She was then prepped and draped in usual fashion. Patient received 2 g Ancef and 1 g of TXA. Patient had a standard deltopectoral pectoral incision made from the coracoid moving distal laterally to avoid the axillary fold. The cephalic vein was identified and protected laterally. Patient had a crossing branch that was subsequently cauterized. At that point time patient underwent a circumferential release of the bursal tissue in the subacromial and the subdeltoid regions or lower motor better mobilization of the tissues. The biceps tendon and pectoralis were identified. The biceps tendon was released proximally of roughly 1 cm to allow for better visualization. At that point time the 3 sister vessels were identified and ligated. We then gently undermined across the strap muscles again cognizant of the coracoid fracture which felt stable upon palpation and I did not feel needed to be mobilized in fixed. At that point time the bicipital sheath was longitudinally opened the biceps was released and allowed to retract distally. We then followed the remnant portion through the rotator interval proximally using standard technique. The patient was roughly 3 out weeks out from previous injury and showed some early fracture healing. We subsequently performed a osteotomy of the lesser tuberosity for better mobilization and visualization. At that point time the humeral head and articular margin was able to be mobilized after circumferential release and some mobilization of the remnant fracture fragments across the tuberosity. These fracture fragments were minimal in terms of remnant they removed in continuity. The remaining portion of the articular margin was also moved. At that point time we able to perform a 360 release of the subscapularis by releasing the SG EHL and MGH L and IGH L. We are cognizant of the inferior aspect to protect the axillary nerve. At that point time the biceps was removed from its insertion site and excess labrum also excised in a circumferential pattern to allow for mobilization of the capsule. We then placed the 10 cephalic tilt humeral guide using standard technique. We were using the [employer] reunion fracture system. Guidepin was placed. We then cortically reamed the glenoid using standard technique. At that point time a 28 mm reunion Luly baseplate was then fixed using standard technique with multiple locking screws and a central cortical compression screw. We had excellent fixation and gentle rotation of the glenoid during tightening. At that point time we impacted a 32 mm glenoid sphere. We then turned our attention to humeral preparation. The patient had fractured significantly low just at the cortical flare of the calcar. This was preserved. The overall fracture ends were freshened using a high-speed saw. We then began our sounding of the humeral canal in anticipation of using a cemented fracture stem for fixation. Traction sutures were placed in the remnant portions of the supraspinatus and infraspinatus along with secondary sutures through the osteotomy of the lesser tuberosity. We sounded to a size 12 mm diameter. Placed a 9 mm trial in anticipation of cementing however I felt that we had too much elevation. I elected to go down to an 8 mm humeral fracture stem again using the reunion system from [employer]. Initial trial was placed and 0 offset and good mechanical stability. Shoulder was then dislocated trial components removed and the canal was then prepared for cement placement. We initially brushed the humeral canal and then placed a cement restrictor and prepared our cement on the back table. Cement was then pressurized using standard technique and the 8 mm reunion stem was then held in place with 30 of retroversion using the trans-epicondylar axis for visualization. Upon cement curing we re-trialed with 0 offset had good mechanical stability and range of motion. We showed no inferior impingement or impingement across the acromion. Final Dena was impacted using standard technique. Then using multiple sutures of #2 FiberWire through the fracture stem slots we repaired the lesser tuberosity back down to the stem along with remnant portions of the supraspinatus and infraspinatus tuberosity insertions. This was done using standard technique. We reconfirm stability with no shock and no signs of impingement. Wound was copiously irrigated multiple times during the procedure to prevent any heterotopic bone formation and infection. We then reapproximated the deltoid and pectoral fascia using 0 Vicryl in a modified Krak w technique. Skin was reapproximated with 3-0 Vicryl in a running subicular Monocryl. Dermabond application applied and the patient dressed with a Mepilex Silverlon dressing equivalent. Patient was placed into an UltraSling. Patient admitted to the floor for 24 hours of IV antibiotics appropriate IV and p.o. pain medication and DVT prophylaxis to include SCDs teds early aggressive range of motion and mobilization and 81 mg of aspirin. We had no drains or complications. Implants included the Luly reunion reverse total shoulder system using a fracture stem-8 mm stem, 28 mm baseplate with a 32 mm glenoid sphere, 0 offset Dena. I was scrubbed and available all time during our procedure. If you require any further information please and is contacted. extruder operator vertical: Kristen Adan Type of Anesthesia:: General Specimen's removed: Bone cuts Estimated Blood Loss (mL): 100 Grafts/Implants Used: [place] reunion reverse total shoulder arthroplasty-fracture stem - Complications None - Admit VTE Documentation VTE Present on Admission: No VTE Mechan Device Prophylaxis: SCD's, Knee High SAÚL Hose VTE Pharm Prophylaxis ordered?: Yes 03/15/18 2798 <Electronically signed by Josemanuel Abreu DO> Date Josemanuel Abreu DO CC: Ginny Currie DO; Jessica Tanner DO; Josemanuel Abreu DO Signed BASIC METABOLIC Collected: 03/15/2018 Status: F Source: [place]AN[place] PROFILE (BMP) 4:37 PM [facility] [place] TYPE CODE TESTS RESULT OUT OF RANGE REFERENCE UNITS LAB L501.0100 74-106 mg/dL High GLU 148 Result Comment: Fasting Glucose result greater than or equal to 126 mg/dL suggests DIABETES MELLITUS per A.D.A. criteria. Please note revised GLUCOSE reference range effective 2017. LAB L501.1000 7-18 mg/dL Normal BUN 11 LAB L501.1100 0.55-1.02 mg/dL Normal CREAT,SERUM 0.67 Result Comment: The validity of the calculated GFR AND GFRAA in patients over 70 years has not been determined. Clinical correlation is essential. LAB L501.1110 >60 mL/min Normal EST GFR 92 Result Comment: Non- GFR Calc LAB L501.1115 >60 mL/min Normal EST GFR - AA 111 Result Comment: GFR Calc LAB L501.1255 ml/min Normal Estimated CRCL 43.91 LAB L501.1300 10-20 RATIO Normal BUN/CRE 16.4 LAB L501.2200 8.5-10 mg/dL Low .1 CA 8.0 LAB L501.5300 136-14 mmol/L Normal 5 NA 141 LAB L501.5600 3.5-5. mmol/L Normal 1 K 4.0 LAB L501.5900 98-107 mmol/L Normal CL 106 LAB L501.6100 21.0-3 mmol/L Normal 2.0 CO2 25.0 LAB L501.6200 5-15 Normal GAP 10 Performed By: #### L500.2500 #### [facility] [address] [place], [address] HUMERUS Observed: 03/15/2018 Status: F Source: [place]AN[place] 1:45 PM [facility] [place] Patient: SUE BRIGGS : 1945 (72/F) Acct Num: [id number] Phys: Ginny Currie DO Unit Num: [id number] Loc: MS3 [id number] Specimen: [id number] Received: 03/16/18 - 1009 Spec Type: HUMERUS TISSUES TISSUES: Humerus, NOS GROSS DESCRIPTION Received in fixative is one container labeled with the patient's name and designated bone left shoulder. The specimen consists of a humeral head measuring 5 x 4 x 2 cm. The articular surface is smooth. The resection margin is irregular and hemorrhagic. Also present in the container are multiple detached pieces of bone measuring in aggregate 4.5 x 4 x 2.5 cm. Also present in the container is a tendinous piece of soft tissue measuring 2.5 x 1 x 0.3 cm. Fitness Floor Attendant sections are submitted in three cassettes as follows: 1 tendinous tissue, entirely submitted, 2 detached pieces of bone after decalcification, 3 humeral head after decalcification. / JUAN M:nicole 03/16/18 TC:5 CPT: 69858, 09633 HEADER OPERATION: Shoulder replacement PRE-OP DIAGNOSIS: Closed displaced fracture of proximal end of left humerus TISSUE SUBMITTED: Bone, left shoulder MICROSCOPIC DESCRIPTION Slides are reviewed. MICROSCOPIC DIAGNOSIS Bone left shoulder, total shoulder replacement: Humeral head and detached pieces of bone with focal area of hemorrhage and callous formation, clinically fracture proximal end left humerus. A piece of dense fibroconnective tissue with reactive changes. JUAN M:nicole 03/22/18 Signed Michael Hinson 03/22/18 <signature on file> Performed By: #### PSHO #### [facility] [address] [facility] [facility] [place], [place], [address] SHOULDER MIN 2 VIEWS Observed: 03/15/2018 Status: F Source: [place] 12:25 PM [facility] [place] [facility] Imaging Services [address] [place] [address] Shoulder min 2 Views MR#: [id number] Acct: [id number] Name: SUE BRIGGS Rep #: [id number] : 1945 F 72 From: Brett Hedrick DO PCP: Jessica Tanner DO Status: ADM IN Study: Shoulder min 2 Views Date of Exam: 03/15/18 Exam# [id number] Ordering Dr: Josemanuel Abreu DO STUDY: X-RAY - LEFT SHOULDER REASON FOR EXAM: Female, 72 years old. Postop. TECHNIQUE: 2 view(s) of the shoulder. COMPARISON: Left shoulder, February 24, 2018. FINDINGS: There is a left total shoulder arthroplasty. The glenoid and humeral components articulate normally with each other. There is no loosening from the underlying bone. There is no acute fracture. Small bony fragments are seen along the posterior aspect of the humeral component. There is degenerative arthrosis of the acromioclavicular joint without inferior osseous spur formation. Normal acromion. Air is seen in the surrounding soft tissues. Normal visualized pulmonary apex. RAD/Shoulder min 2 Views IMPRESSION: Status post left total shoulder arthroplasty. Electronically Signed: Brett Hedrick DO at 16:49 EDT Tel [phone], Service support , CC: Jessica Tanner DO; Josemanuel Abreu DO Compliance Advisor: Signed 12 LEAD ELECTROCARDIOGRAM Observed: 03/09/2018 Status: F Source: [place] 6:10 PM [facility] [place] [facility] Cardiovascular Services [address] [place] [address]69 12 Lead EKG 03/04/18 1116 MR#: [id number] Acct: [id number] Name: SUE BRIGGS Rep #: [id number] : 1945 72 From: Trey Bob MD Attending Dr: Ginny Currie DO Status: PRE [facility] Ordering Dr: Ginny Currie DO Date: 03/04/18 Location: [facility] Sex: F C Admitted: Test Reason : PRE-OP Blood Pressure : / mmHG Vent. Rate : 081 BPM Atrial Rate : 081 BPM P-R Int : 142 ms QRS Dur : 082 ms QT Int : 344 ms P-R-T Axes : 068 038 083 degrees QTc Int : 399 ms Normal sinus rhythm Nonspecific ST and T wave abnormality Abnormal ECG Confirmed by TREY BOB ([id number]), avid editor REA DIAS ([id number]) on 03/08/2018 4:08:06 PM Referred By: Ginny Currie Confirmed By:TREY BOB 03/08/18 1608 Date Trey Bob MD CC: Ginny Currie DO; Jessica Ciro JACQUES Signed CBC-COMPLETE BLOOD CNT Collected: 03/04/2018 Status: F Source: [place] NO DIFF 10:54 AM [facility] [place] TYPE CODE TESTS RESULT OUT OF RANGE REFERENCE UNITS LAB L100.1000 4.4-11.0 K/mm3 Normal WBC 6.8 LAB L100.1200 4.2-5.4 M/mm3 Low RBC 3.83 LAB L100.1300 12.0-15.0 g/dl Low HGB 11.0 LAB L100.1400 37-47 % Low HCT 34.7 LAB L100.1500 81-99 fL Normal MCV 90.6 LAB L100.1600 27.0-32.0 pg Normal MCH 28.7 LAB L100.1700 32-36 g/gl Low MCHC 31.7 LAB L100.1810 11.6-14.6 % Normal RDW CV 14.0 LAB L100.1820 35.1-43.9 fl High RDW SD 45.3 LAB L100.1900 150-450 K/mm3 Normal PLT 409 LAB L100.2000 6.2-12.0 fl Normal MPV 9.2 Performed By: #### L100.0500 #### [facility] [address] [place], [place], [address] CORONALS SAG MULTI Observed: 03/02/2018 Status: F Source: IVAN[place] OBL 3-D REC 1:38 PM [facility] [place] Imaging Services [address] [place] [address] Coronals Sag Multi Obl 3-D Rec MR#: [id number] Acct: [id number] Name: SUE BRIGGS Rep #: [id number] : 1945 F 72 From: Kapil Gonzales MD PCP: Jessica Tanner DO Status: REG CLI Study: Coronals Sag Multi Obl 3-D Rec Date of Exam: 03/02/18 Exam# [id number] Ordering Dr: Ginny Currie DO ADDENDUM by Kapil Gonzales MD on 03/02/[address]/Coronals Sag Multi Obl 3-D Rec IMPRESSION: Impacted, comminuted, mildly displaced, intra-articular fracture of the proximal humerus involving the neck and tuberosities Nondisplaced fracture at the coracoid process Electronically Signed: Kapil Gonzales MD at 21:56 EDT Tel , Service support , 03/02/182202 Date cc: Ginny Currie DO; Jessica Tanner DO * Signed ADDENDUM by Kapil Gonzales MD on 03/02/18 at 2156 ADDENDUM There is nondisplaced fracture at the coracoid (image 17/132 axial). The remainder of the scapula is intact. 03/02/182155 Date cc: Ginny Currie DO; Jessica Tanner [...] CC: Ginny Currie DO; Jessica Tanner DO Compliance Advisor: Signed EXTREMITY UPPER Observed: 03/02/2018 Status: F Source: [place] WITHOUT CONTRA 12:00 AM [facility] [place] [facility] Imaging Services [address] [place] [address] Extremity Upper without Contra MR#: [id number] Acct: [id number] Name: SUE BRIGGS Rep #: [id number] : 1945 F 72 From: Kapil Gonzales MD PCP: Jessica Tanner DO Status: REG CLI Study: Extremity Upper without Contra Date of Exam: 03/02/18 Exam# [id number] Ordering Dr: Ginny Currie DO ADDENDUM by Kapil Gonzales MD on 03/02/[address]/Extremity Upper without Contra IMPRESSION: Impacted, comminuted, mildly displaced, intra-articular fracture of the proximal humerus involving the neck and tuberosities Nondisplaced fracture at the coracoid process Electronically Signed: Kapil Gonzales MD at 21:56 EDT Tel , Service support , 03/02/182202 Date cc: Ginny Currie DO; Jessica Tanner DO * Signed ADDENDUM by Kapil Gonzales MD on 03/02/18 at 2156 ADDENDUM There is nondisplaced fracture at the coracoid (image 17/132 axial). The remainder of the scapula is intact. 03/02/182155 Date cc: Ginny Currie DO; Jessica Tanner [...] CC: Ginny Currie DO; Jessica Tanner DO Compliance Advisor: Signed ORTHOPEDIC VISIT Observed: 03/01/2018 Status: F Source: [place] REPORT 12:37 PM [facility] [place] [facility] Orthopaedics AND Sports Medicine [address] [place] [address] OFFICE VISIT Date of Service: 02/24/18 MR#: [id number] Acct: [id number] Name: SUE BRIGGS Rep #: [id number] : 1945 Provider: Ginny Currie DO Age/Sex: 72/F Location: [facility] [place] Status: Signed Intake Intake Visit Reasons: LEFT SHOULDER Is patient in pain?: Yes Pain scale (1-10): 6 Allergies adhesive Adverse Reaction [...] 180 mg PO DAILY 02/20/18 [History Confirmed 02/24/18] Fluticasone Propionate [Flovent Diskus] 50 mcg IH [...] Never smoker HPI LEFT SHOULDER: Details: SUE BRIGGS is a 72 year old F here [...] but she is able to make a fist and move the wrist. Limited rom at the elbow secondary to the pain and swelling. She states that she is getting sharp shooting pain in the shoulder even with small movements and has been compliant with the sling. Her foot is not very painful and she is using the pain medication as prescribed, sleeping in the recliner and trying to rest as much as possible. Denies numbness, tingling or other associated symptoms. Ortho Exam Left Shoulder Date of injury: 02/20/18 Skin/Wound: Yes CDI, Yes ecchymosis Contralateral Normal: Yes Testing: No AROM-Forward Elevation 0-180, No AROM-External Rotation at 90 0-60, No AROM-External Rotation at side 0-60, No PROM-External Rotation at side 0-60, No PROM-Forward Elevation 0-180, No PROM-External Rotation at 90 0-60 SHOULDER: significant bruising and swelling from left side chest to forearm, patient in [...] walk in the boot and remove if needed to have less jostling of the shoulder. Reviewed the post op restrictions and that it can take up to a year to have recovery and rom enough to do ADLs. Reviewed the pre-operative plans with the patient. [...] week for swelling check or sooner if pain, swelling, numbness or associated symptoms, or concerns develop. All questions answered. Patient in agreement of plan. Orders Orders: Plan Detail Other Orders Orders: Coding Level of Care Code Off vis,est,level 4 Diagnoses Other closed displaced fracture of proximal end of left humerus, initial encounter S42.292A Encounter type: initial encounter Fracture alignment: displaced Fracture morphology: other fracture 03/01/18 1237 <Electronically signed by Ginny Currie DO> Date Ginny Currie DO Cosigner Signature: Date (if applicable) CC: ELBOW MIN 3 VIEWS Observed: 02/24/2018 Status: F Source: [place] 2:11 PM [facility] [place] Imaging Services [address] [place] [address] Elbow min 3 Views MR#: [id number] Acct: [id number] Name: SUE BRIGGS Rep #: [id number] : 1945 F 72 From: Reddy Branch MD PCP: Jessica Tanner DO Status: REG CLI Study: Elbow min 3 Views Date of Exam: 02/24/18 Exam# [id number] Ordering Dr: Ginny Currie DO STUDY: X-RAY - LEFT ELBOW REASON FOR EXAM: Female, 72 years old. Fall down stairs 4 days ago. Pain. TECHNIQUE: 3 view(s) of the elbow. COMPARISON: None. FINDINGS: There is generalized osteopenia. Normal visualized humerus, radius and ulna. Normal radiocapitellar and ulnotrochlear articulations. The soft tissue structures are unremarkable. RAD/Elbow min 3 Views IMPRESSION: Osteopenia with no acute abnormality. Electronically Signed: Reddy Branch MD at 12:41 EDT , Service support , CC: Ginny Currie DO; Jessica Tanner DO Compliance Advisor: Signed SHOULDER MIN 2 VIEWS Observed: 02/24/2018 Status: F Source: [place] 1:12 PM [facility] [place] [facility] Imaging Services [address] [place] [address] Shoulder min 2 Views MR#: [id number] Acct: [id number] Name: SUE BRIGGS Rep #: [id number] : 1945 F 72 From: Mario Salguero MD PCP: Jessica Tanner DO Status: REG CLI Study: Shoulder min 2 Views Date of Exam: 02/24/18 Exam# [id number] Ordering Dr: Ginny Currie DO STUDY: X-RAY - LEFT SHOULDER REASON FOR EXAM: Fracture. TECHNIQUE: 3 view(s) of the shoulder. COMPARISON: Radiographs 02/20/2018. FINDINGS: Normal glenohumeral articulation. Normal acromioclavicular joint. Normal acromion. There is no significant change of the comminuted proximal humeral fracture with medial displacement of the humeral shaft. The soft tissue structures are unremarkable. Normal visualized pulmonary apex. RAD/Shoulder min 2 Views IMPRESSION: Comminuted proximal humeral fracture. Electronically Signed: Mario Salguero MD at 12:42 EDT Tel , Service support , CC: Ginny Currie DO; Jessica Tanner DO Compliance Advisor: Signed DISCHARGE INSTRUCTION Observed: 02/20/2018 Status: F Source: [place] 2:01 PM [facility] [place] [facility] Medical Records Department [address] [place] [address] Discharge Instruction 02/20/18 1358 MR#: [id number] Acct: [id number] Name: SUE BRIGGS Rep #: [id number] : 1945 72 From: Chelle Zaragoza MD PCP: Jessica Tanner DO Status: REG ER ED Disposition - Plan for ED Patient: Chief Complaint: Fall Instructions: ED Mechanical Fall, ED Fx Shoulder, ED Fx Foot Prescriptions: Oxycodone HCl/Acetaminophen [Percocet 5/325] 1 tablet PO Q6H PRN PRN 5 Days #20 tablet PRN Reason: Pain Referrals: Jessica Tanner DO [Primary Care Provider] - Ginny Currie DO [STAFF PHYSICIAN] - What to do if you have Problems For any increased pain, shortness of breath, bleeding, nausea or vomiting, chest pain, or any unexpected problems, contact your Primary Care Provider. Call [facility] ([phone]) or report to the closest Emergency Room. Call 911 if necessary. 02/20/18 1401 <Electronically signed by Chelle Zaragoza MD> Date Chelle Zaragoza MD Cosigner Signature (If Indicated): Date CC: Jessica Tanner DO EMERGENCY DEPARTMENT Observed: 02/20/2018 Status: F Source: [place] SUMMARY 1:58 PM [facility] [place] [facility] Medical Records Department [address] [place] [address] Emergency Department Summary 02/20/18 1128 MR#: [id number] Acct: [id number] Name: SUE BRIGGS Rep #: [id number] : 1945 72 From: Chelle Zaragoza MD PCP: Jessica Tanner DO Status: REG ER - ER Visit Summary Date of Service: 02/20/18 Chief Complaint: Fall History of Present Illness: The patient is a 72 F presenting after fall. Patient states she was wearing high heels and tripped on the carpet. She fell down a half a flight of stairs. She did not hit her head or lose consciousness. She complains of left shoulder and right foot pain. She took a pain pill before arriving but she believes it was . Denies other complaints. Physical Examination: Vitals are stable. Patient is afebrile. Alert no acute distress. HEENT exam is unremarkable. Neck is nontender Lungs are clear and equal bilaterally. Heart is regular rate and rhythm. Abdomen is soft nontender nondistended. Extremities right mid foot tenderness, left anterior [...] second metatarsal extending into the tarsometatarsal joint. Left shoulder x-ray shows there is an acute fracture of the humeral neck and head. Patient is given a sling and swath. She is given a boot orthosis. Discussed with Dr. Currie. She reviewed her images. She states the patient can weight-bear as tolerated with the boot. She will follow-up in the office. She is given a prescription for Percocet. She is advised return to ED if worsening complaints. Disposition: Discharge home Impression: Right second metatarsal fracture, left proximal humerus fracture, status post mechanical fall This note was generated with SYSTRAN dictation software. It may contain incorrect words, spelling, and punctuation that were not noted in review of the chart prior to signing ED Disposition - Plan for ED Patient: Chief Complaint: Fall Referrals: Jessica Tanner DO [Primary Care Provider] - What to do if you have Problems For any increased pain, shortness of breath, bleeding, nausea or vomiting, chest pain, or any unexpected problems, contact your Primary Care Provider. Call [facility] ([phone]) or report to the closest Emergency Room. Call 911 if necessary. 02/20/18 1358 <Electronically signed by Chelle Zaragoza MD> Date Chelle Zaragoza MD Cosigner Signature (If Indicated): Date CC: Jessica Tanner DO FOOT MIN 3 VIEWS Observed: 02/20/2018 Status: F Source: [place] 11:26 AM [facility] [place] [facility] Imaging Services [address] [place] [address] 25758 Foot min 3 Views MR#: [id number] Acct: [id number] Name: SUE BRIGGS Mayda Rep #: [id number] : 1945 F 72 From: Rona Bowen MD PCP: Jessica Tanner DO Status: PRE ER Study: Foot min 3 Views Date of Exam: 02/20/18 Exam# [id number] Ordering Dr: Chelle Zaragoza MD STUDY: X-RAY [...] second metatarsal extending into the tarsometatarsal joint. There is degenerative arthrosis of the metatarsophalangeal joint of the hallux . Normal tibial and fibular sesamoid bones. Normal interphalangeal joint of the great toe. Normal phalanges of the great toe. Normal second through fifth metatarsophalangeal joints. Normal interphalangeal joints and phalanges of the lesser toes. RAD/Foot min 3 Views IMPRESSION: There appears to be an acute nondisplaced fracture of the base of the second metatarsal extending into the tarsometatarsal joint. Electronically Signed: Rona Bowen MD at 12:18 EDT , Service support , CC: Chelle Zaragoza MD; Jessica Tanner DO Compliance Advisor: Signed SHOULDER MIN 2 VIEWS Observed: 02/20/2018 Status: F Source: [place] 11:26 AM [facility] [place] [facility] Imaging Services [address] [place] [address] 06226 Shoulder min 2 Views MR#: [id number] Acct: [id number] Name: SUE BRIGGS Rep #: [id number] : 1945 F 72 From: Rona Bowen MD PCP: Jessica Tanner DO Status: PRE ER Study: Shoulder min 2 Views Date of Exam: 02/20/18 Exam# [id number] Ordering Dr: Chelle Zaragoza MD STUDY: X-RAY - LEFT SHOULDER REASON FOR EXAM: Female, 72 years old. pt. fell down the steps, pain TECHNIQUE: 2 view(s) of the shoulder. COMPARISON: None. FINDINGS: Normal glenohumeral articulation. There is degenerative arthrosis of the acromioclavicular joint without inferior osseous spur formation. Normal acromion. There is an acute fracture of the humeral neck and head. There is 1.9 cm of medial displacement of the shaft relative to the head and 1.0 cm of impaction of the shaft into the head. The soft tissue structures are unremarkable. Normal visualized pulmonary apex. RAD/Shoulder min 2 Views IMPRESSION: There is an acute fracture of the humeral neck and head. Electronically Signed: Rona Bowen MD at 12:20 EDT , Service support , CC: Chelle Zaragoza MD; Jessica Tanner DO Compliance Advisor: Signed ALLERGIES ALLERGIES DATE TYPE / CODE NAME / CODE REACTION SEVERITY SOURCE 10/29/2018 Drug adhesive/F00 Rash Unknown [facility] Allergy/4160 7798909([place] [address](SNOMED RM) Repository CT) 10/29/2018 Drug latex/P58353 Rash Unknown [facility] Allergy/4160 8921([place] [address](SNOMED Repository CT) ENCOUNTERS ENCOUNTERS ADMIT/DISCHARGE ACCOUNT ADMITTING ENCOUNTER LOCATION SOURCE NUMBER CLASS 12/01/2018 [id number] Ambulatory Ivania Ivania 7 [facility] ing:HPRAD Repository 11/25/2018 [id number] Ambulatory Ivania Ivania 2 [facility] ing:HPRAD Repository 11/25/2018 3160 Ambulatory Building:[facility] [place] Practices Repository 11/02/2018 [id number] Ambulatory [place] Ivania 6 [facility] ing:LABSPEC Repository 10/29/2018/ [id number] Emergency [place] Ivania 8 7 [facility] ing:ED Repository 07/12/2018 [id number] Ambulatory Ivania Ivania 6 [facility] ing:HPRAD Repository 07/12/2018/ [id number] Ambulatory BMSBuilding:B Bl[place] 8 8 [facility] Repository 07/05/2018/ [id number] Ambulatory Ivania Blanco 8 6 [facility] ing:PT Repository 06/07/2018/ [id number] Ambulatory BMSBuilding:B [place] 8 3 [facility] Repository 05/12/2018 [id number] Ambulatory Ivania Blanco 6 [facility] ing:OPBD Repository 04/25/2018 [id number] Ambulatory Ivania Ivania 8 [facility] ing:HPRAD Repository 04/25/2018/ [id number] Ambulatory BMSBuilding:B [place] 8 2 [facility] Repository 03/31/2018 [id number] Ambulatory BMSBuilding:B Bl[place] 5 [facility] Repository 03/28/2018 [id number] Ambulatory [place] Ivania 7 [facility] ing:HPRAD Repository 03/28/2018/ [id number] Ambulatory BMSBuilding:B Ivania 8 6 [facility] Repository 03/15/2018/ [id number] Rosey, Ambulatory Ivania Blanco 8 9 [facility] ing:XA8Puhs: Repository XL444Qku: 1 03/15/2018 [id number] Rosey, Ambulatory BMSBuilding:B Bl[place] 1 [place] MS.CF.[facility] Repository 03/15/2018 [id number] [place], Ambulatory BMSBuilding:B [place] 1 [place] MS.[facility] Repository 03/15/2018 [id number] [place], Ambulatory BMSBuilding:B Ivania 9 [place] MS.[facility] Repository 03/11/2018/ [id number] Ambulatory BMSBuilding:B Ivania 8 4 [facility] Repository 03/04/2018/ [id number] Ambulatory BMSBuilding:W [place] [address] [facility] Repository 03/02/2018 [id number] Ambulatory [place] Ivania 8 [facility] ing:CT Repository 02/24/2018 [id number] Ambulatory Blanco Blanco 5 [facility] ing:HPRAD Repository 02/24/2018/ [id number] Ambulatory BMSBuilding:B Ivania 8 2 [facility] Repository 02/20/2018/ [id number] Emergency Ivania [place] 8 1 [facility] ing:ED Repository PAYERS PAYERS ENCOUNTER GUARANTOR PAYER SUBSCRIBER SOURCE 12/01/2018 SUE K [id number] Primary SUE K [place] E [place] Insurance:MEDICARE WIRTDOB: [place] PART A [facility] [id number] Hospital [address]Oxx: (330) Number: Repository [phone] (HP) [id number] Date:2018-12-01 12/01/2018 Secondary SUE K Ivania Insurance:ANTHEMPolic WIRTDOB: Community y Number: [id number] Regional Medical [id number] Repository Date:9825-93-88RS [address]IGXYV [place] [address]EF: 12/01/2018 Tertiary NOT GIVENUNK Ivania Insurance:SELF PAY [facility] Number: Effective Repository Date:2018-12-01 11/25/2018 SUE K [id number] Primary SUE K Ivania E B[place] Insurance:MEDICARE WIRTDOB: [place] [facility] [id number] Hospital 67[address]Sjt: (330) Number: Repository [phone] (HP) [id number] Date:2018-11-25 11/25/2018 Secondary SUE K Ivania Insurance:ANTHEMPolic WIRTDOB: Community y Number: [id number] Regional Medical [id number] Repository Date:7725-32-65XJ [address] [address]OG: 11/25/2018 Tertiary NOT GIVENUNK Ivania Insurance:SELF PAY [facility] Number: Effective Repository Date:2018-11-25 11/25/2018 Sue K Primary Sue K OHIP Practices WirtDOB: Insurance:MedicarePol WirtDOB: Repository [id number] E icy Number: [id number] [place] [id number] E [place], [place] Date:1321-77-12Vnpj [place], [place] [address]Oug: (330) Name:[facility] [address] [address]Tww: (HP) [address]Uyorwtwr, [place] [phone] (HP) [address]BB: 11/25/2018 Secondary Sue K OHIP Practices Insurance:Herreid/Supp WirtDOB: Repository [facility] Number: [id number] E [place] Date:7903-28-19Gmzv [place], [place] Name:[facility] [address] [address]Bpa: [id number], [place] ~(3 [phone]: [phone] 30 HP) [phone] 11/25/2018 Tertiary Sue K OHIP Practices Insurance:MedicarePol WirtDOB: Repository icy Number: [id number] E [place] Date:2010-10-08 - [place] 2389-10-74Ceyr [address]Ght: Name:[facility] Box ~(3 [address]Nawud[place]b, [place] 30 (HP) [address]UM: 11/25/2018 Tertiary Arthur E OHIP Practices Insurance:AETNAPolalexandery WirtDOB: Repository Number: [id number] E [place] Date:2010-11-08 - [place] 8566-90-12Qoiy [address]Xst: (330) Name:[facility] [address] [phone] (HP) FRANNIE QUINTANILLA [id number]: 11/02/2018 SUE K [id number] Primary SUE K Ivania E BAILEY Insurance:MEDICARE WIRTDOB: [place] PART [place] [facility] [id number] Hospital [address]Lwm: (330) Number: Repository [phone] () [id number] Date:2018-11-02 11/02/2018 Secondary SUE K Ivania Insurance:ANTHEMPolic WIRTDOB: Community y Number: [id number] Regional Medical [id number] Repository Date:2507-72-52RL [address] [place] [address]MW: 11/02/2018 Tertiary NOT GIVENUNK [place] Insurance:SELF PAY [facility] Number: Effective Repository Date:2018-11-02 10/29/2018 SUE K [id number] Primary SUE K [place] E [place] Insurance:MEDICARE WIRTDOB: [place] [facility] [id number] [place] [id number]: (330) Number: Repository [phone] () [id number] Date:2018-10-29 10/29/2018 Secondary SUE K Ivania Insurance:ANTHEMPolic WIRTDOB: Community y Number: [id number] Hospital [id number] Repository Date:7018-57-70LQ [address]WJKGGEJ, [place] [address]XA: 10/29/2018 Tertiary NOT GIVENUNK [place] Insurance:SELF PAY [facility] Number: Effective Repository Date:2018-10-29 07/12/2018 SUE K [id number] Primary SUE K [place] E [place]AI[place] Insurance:MEDICARE WIRTDOB: [place] PART [place] [facility] [id number] Hospital [address]Yyz: (330) Number: Repository [phone] () [id number] Date:2018-07-12 07/12/2018 Secondary SUE K Blanco Insurance:ANTHEMPolic WIRTDOB: Community y Number: [id number] Hospital [id number] Repository Date:4114-50-45UF [address]VDZUUQG [place] [address]XG: 07/12/2018 Tertiary NOT GIVENUNK Ivania Insurance:SELF PAY [facility]: Effective Repository Date:2018-07-12 07/12/2018 SUE K [id number] Primary SUE K Blanco E BAI[place] Insurance:MEDICARE WIRTDOB: [facility] [place] PART A [facility] [id number] Hospital [address]28[address]Xgg: (330) Number: Repository [phone] () [id number] Date:2018-07-05 07/12/2018 Secondary SUE K Ivania Insurance:ANTHEMPolic WIRTDOB: Community y Number: [id number] Hospital [id number] Repository Date:0314-48-15JB [address]XVFLCQC [place] [address]RE: 07/12/2018 Tertiary NOT GIVENUNK [place] Insurance:SELF PAY [facility] Hospital Number: Effective Repository Date:2018-07-12 07/05/2018 SUE K [id number] Primary SUE K Ivania E [place] Insurance:MEDICARE [facility]IRTD[facility] [place] [place] [facility] [id number] Hospital [address]Axy: (330) Number: Repository [phone] () [id number] Date:2010-10-08 07/05/2018 Secondary SUE K Blanco Insurance:ANTHEMPolic WIRTDOB: Community y Number: [id number] Hospital [id number] Repository Date:7743-57-34LG [address]IWWFNLF, [place] [address]LK: 07/05/2018 Tertiary NOT GIVENUNK [place] Insurance:SELF PAY [facility] Number: Effective Repository Date:2018-03-28 06/07/2018 SUE K [id number] Primary SUE K Ivania E [place]AI[place] Insurance:MEDICARE WIRTDOB: [place] PART A [facility] [id number] Hospital 60[address]Xnx: (330) Number: Repository [phone] () [id number] Date:2018-04-25 06/07/2018 Secondary SUE K Ivania Insurance:ANTHEMPolic WIRTDOB: Community y Number: [id number] Hospital [id number] Repository Date:4193-78-66IM [address]XFJLSLT, [place] [address]NY: 06/07/2018 Tertiary NOT GIVENUNK [place] Insurance:SELF PAY [facility] Number: Effective Repository Date:2018-06-07 05/12/2018 SUE K [id number] Primary SUE K Ivania E [place] Insurance:MEDICARE WIRTDOB: [place] [facility] [id number] Hospital 85679Nut: (330) Number: Repository [phone] () [id number] Date:2018-05-02 05/12/2018 Secondary SUE K Blanco Insurance:ANTHEMPolic WIRTDOB: Community y Number: [id number] Hospital [id number] Repository Date:5884-03-08UG [address]FNADOWZ, [place] [address]HO: 05/12/2018 Tertiary NOT GIVENUNK [place] Insurance:SELF PAY [facility] Number: Effective Repository Date:2018-05-02 04/25/2018 SUE K [id number] Primary SUE K [place] E [place]AI[place] Insurance:MEDICARE WIRTDOB: [place] [facility] [id number] Hospital 7[address]Zee: (330) Number: Repository [phone] () [id number] Date:2018-04-25 04/25/2018 Secondary SUE K Blanco Insurance:ANTHEMPolic WIRTDOB: Community y Number: [id number] Hospital [id number] Repository Date:5644-76-84HH [address]MYAXSDM, [place] [address]BB: 04/25/2018 Tertiary NOT GIVENUNK [place] Insurance:SELF PAY [facility] Number: Effective Repository Date:2018-04-25 04/25/2018 SUE K [id number] Primary SUE K Ivania E BAI[place] Insurance:MEDICARE WIRTDOB: [place] PART [place] [facility] [id number] Hospital 201[address]Zra: (330) Number: Repository [phone] () [id number] Date:2018-03-28 04/25/2018 Secondary SUE K Blanco Insurance:ANTHEMPolic WIRTDOB: Community y Number: [id number] Regional Medical [id number] Repository Date:8509-10-73OS [address] [place] [address]PA: 04/25/2018 Tertiary NOT GIVENUNK [place] Insurance:SELF PAY [facility] Number: Effective Repository Date:2018-03-28 03/31/2018 SUE K [id number] Primary SUE K Ivania E [place] Insurance:MEDICARE WIRTDOB: [place] [facility] [id number] [place] [id number]: (330) Number: Repository [phone] () [id number] Date:2018-03-24 03/31/2018 Secondary SUE K Ivania Insurance:ANTHEMPolic WIRTDOB: Community y Number: [id number] Hospital [id number] Repository Date:2452-16-36FK [address] [place] [address] 12[address]YT: 03/31/2018 Tertiary NOT GIVENUNK Ivania Insurance:SELF PAY [facility] Number: Effective Repository Date:2018-03-24 03/28/2018 SUE K [id number] Primary SUE K [place] E [place] Insurance:MEDICARE WIRTDOB: [place] [facility] [id number] Hospital 28[address]Sgi: (330) Number: Repository [phone] () [id number] Date:2018-03-28 03/28/2018 Secondary SUE K Blanco Insurance:ANTHEMPolic WIRTDOB: Community y Number: [id number] Hospital [id number] Repository Date:5512-56-95ZP [address] [place] [address]GB: 03/28/2018 Tertiary NOT GIVENUNK [place] Insurance:SELF PAY [facility] Number: Effective Repository Date:2018-03-28 03/28/2018 SUE K [id number] Primary SUE K [place] E [place] Insurance:MEDICARE WIRTDOB: [place] [facility] [id number] Hospital 18421Uln: (330) Number: Repository [phone] () [id number] Date:2018-03-24 03/28/2018 Secondary SUE K Ivania Insurance:ANTHEMPolic WIRTDOB: Community y Number: [id number] Hospital [id number] Repository Date:1109-22-77UE [address] [place] [address]XK: 03/28/2018 Tertiary NOT GIVENUNK [place] Insurance:SELF PAY [facility] Number: Effective Repository Date:2018-03-24 03/15/2018 SUE K [id number] Primary SUE K Ivania E [place] Insurance:MEDICARE WIRTDOB: [place] [facility] [id number] Hospital 59[address]Ldj: (330) Number: Repository [phone] () [id number] Date:2018-02-28 03/15/2018 Secondary SUE K Blanco Insurance:ANTHEMPolic WIRTDOB: Community y Number: [id number] Hospital [id number] Repository Date:1289-24-39JF [address] [place] [address] 57[address]MF: 03/15/2018 Tertiary NOT GIVENUNK [place] Insurance:SELF PAY [facility] Number: Effective Repository Date:2018-03-09 03/15/2018 SUE K [id number] Primary SUE K Blanco E [place] Insurance:MEDICARE [place]TDOB[place] olic [id number] Hospital 89[address]Dwr: (330) Number: Repository [phone] () [id number] Date:2018-02-28 03/15/2018 Secondary SUE K Ivania Insurance:ANTHEMPolic WIRTDOB: Community y Number: [id number] Hospital [id number] Repository Date:7868-59-66OE [address] [place] [address] [place] [address]UR: 03/15/2018 Tertiary NOT GIVENUNK [place] Insurance:SELF PAY [facility] Number: Effective Repository Date:2018-03-15 03/15/2018 SUE K [id number] Primary SUE K Bl[place] E [place] Insurance:MEDICARE WIRTDOB: [place] [facility] [id number] Hospital 96930Kox: (330) Number: Repository [phone] () [id number] Date:2018-02-28 03/15/2018 Secondary SUE K Blanco Insurance:ANTHEMPolic WIRTDOB: Community y Number: [id number] Hospital [id number] Repository Date:1764-79-21CJ [address] [place] [address]AH: 03/15/2018 Tertiary NOT GIVENUNK [place] Insurance:SELF PAY [facility] Number: Effective Repository Date:2018-03-15 03/15/2018 SUE K [id number] Primary SUE K Ivania E [place] Insurance:MEDICARE WIRTDOB: [place] [facility] [id number] Hospital 84198Tke: (330) Number: Repository [phone] () [id number] Date:2018-02-28 03/15/2018 Secondary SUE K Ivania Insurance:ANTHEMPolic WIRTDOB: Community y Number: [id number] Hospital [id number] Repository Date:1155-10-61SL [address], [place] [address]XW: 03/15/2018 Tertiary NOT GIVENUNK [place] Insurance:SELF PAY [facility] Number: Effective Repository Date:2018-03-15 03/11/2018 SUE K [id number] Primary SUE K Bl[place] E [place] Insurance:MEDICARE WIRTDOB: [facility] [place] [facility] [id number] Hospital 38228Lpp: (330) Number: Repository [phone] () [id number] Date:2018-03-10 03/11/2018 Secondary SUE K Blanco Insurance:ANTHEMPolic WIRTDOB: Community y Number: [id number] Hospital [id number] Repository Date:1239-01-57MK [address] [place] [address] [place] [address]OR: 03/11/2018 Tertiary NOT GIVENUNK [place] Insurance:SELF PAY [facility] Number: Effective Repository Date:2018-03-11 03/04/2018 SUE K [id number] Primary SUE K Blanco E [place] Insurance:MEDICARE WIRTDOB: [facility] [place] [facility] [id number] Hospital 23[address]Ysu: (330) Number: Repository [phone] () [id number] Date:2018-02-28 03/04/2018 Secondary SUE K Blanco Insurance:ANTHEMPolic WIRTDOB: Community y Number: [id number] Hospital [id number] Repository Date:9455-92-47WE [address] [place] [address] 36597KZ: 03/04/2018 Tertiary NOT GIVENUNK [place] Insurance:SELF PAY [facility] Hospital Number: Effective Repository Date:2018-03-04 03/02/2018 SUE K [id number] Primary SUE K Ivania E [place] Insurance:MEDICARE WIRTDOB: [place] [facility] [id number] Hospital 673[address]Vpo: (330) Number: Repository [phone] () [id number] Date:2018-02-24 03/02/2018 Secondary SUE K Blanco Insurance:ANTHEMPolic WIRTDOB: Community y Number: [id number] Hospital [id number] Repository Date:5881-62-17NT [address] [place] [address] 248[address]JN: 03/02/2018 Tertiary NOT GIVENUNK [place] Insurance:SELF PAY [facility] Number: Effective Repository Date:2018-02-24 02/24/2018 SUE K [id number] Primary SUE K Blanco E [place] Insurance:MEDICARE WIRTDOB: [place] [facility] [id number] Hospital 11530Qpq: (330) Number: Repository [phone] () [id number] Date:2018-02-24 02/24/2018 Secondary SUE K Blanco Insurance:ANTHEMPolic WIRTDOB: Community y Number: [id number] Hospital [id number] Repository Date:2811-04-83BK [address] [place] [address]NQ: 02/24/2018 Tertiary NOT GIVENUNK [place] Insurance:SELF PAY [facility] Number: Effective Repository Date:2018-02-24 02/24/2018 SUE K [id number] Primary SUE K Ivania E [place] Insurance:MEDICARE WIRTDOB: [place] [facility] [id number] Hospital 020[address]Lto: (330) Number: Repository [phone] () [id number] Date:2018-02-21 02/24/2018 Secondary SUE K Blanco Insurance:ANTHEMPolic WIRTDOB: Community y Number: [id number] Hospital [id number] Repository Date:0919-59-66XY [address] [place] [address] 14876QN: 02/24/2018 Tertiary NOT GIVENUNK [place] Insurance:SELF PAY [facility] Hospital Number: Effective Repository Date:2018-02-24 02/20/2018 Sue K [id number] Primary Sue K Blanco E [place] Insurance:MEDICARE WirtDOB: [place] BPolicy [id number] Hospital 540[address]Dwt: (330) Number: Repository [phone] ) [id number] Date:2018-02-20 02/20/2018 Secondary Sue Mayda Redd Insurance:ANTHEMPolic WirtDOB: Community y Number: [id number] Hospital [id number] Repository Date:1691-34-72ZB [address]FBIZD[place], [place] [address]OP: 02/20/2018 Tertiary NOT GIVENUNK [place] Insurance:SELF PAY [facility] Number: Effective Repository Date:2018-02-20
== END ==
PROVIDERS: Family Provider Internal Medicine; PCP Internal Medicine; Referring Provider Nurse Practitioner; Visit Provider Nurse Practitioner
DX: J44.1 Chronic obstructive pulmonary disease with (acute) exacerbation (principal)
CPT/HCPCS: 71046

== ENCOUNTER → 2018-12-01 14:07 | Outpatient (CLI) | payer MEDICARE, BC, SELFPAY ==
--- NOTE | 2018-12-01 14:29 | RAD_ITS ---
STUDY: X-RAY CHEST REASON FOR EXAM: Female, 73 years old. Cough TECHNIQUE: PA and lateral views of the chest. COMPARISON: November 25, 2018 FINDINGS: There is no new focal consolidation. The lungs remain hyperinflated. There is no demonstrated pleural abnormality. Normal size heart. Normal mediastinum and ester. Normal visualized pulmonary arteries. Normal visualized aortic arch and descending thoracic aorta. There are diffuse degenerative changes of the visualized thoracic spine. There is a left shoulder arthroplasty in place. There is no demonstrated abnormality of the visualized soft tissue structures of the upper abdomen. RAD/Chest PA and Lateral IMPRESSION: Stable examination demonstrating no acute cardiopulmonary process. Electronically Signed: Paula Pichardo MD at 16:04 EST Tel , Service support ,
== END ==
PROVIDERS: Family Provider Internal Medicine; PCP Internal Medicine; Referring Provider Nurse Practitioner Gerontology; Visit Provider Nurse Practitioner Gerontology
DX: R05 Cough (principal)
CPT/HCPCS: 71046

== ENCOUNTER → 2018-12-05 11:04 | Outpatient (CLI) | payer MEDICARE, BC, SELFPAY ==
[2018-12-05 12:16] LABS: Differential Indicated MANUAL DIFF; Hematocrit 41.8 % (37-47); Hemoglobin 13.6 g/dl (12.0-15.0); Mean Corp Hgb Conc 32.5 g/gl (32-36); Mean Corpuscular Hgb 30.4 pg (27.0-32.0); Mean Corpuscular Volume 93.5 fL (81-99); Mean Platelet Vol. 9.9 fl (6.2-12.0); POSITIVE COUNT YES; POSITIVE DIFFERENTIAL YES; POSITIVE MORPHOLOGY YES; Platelet Count 301 K/mm3 (150-450); RBC Distribution Width CV 13.3 % (11.6-14.6); RBC Distribution Width SD 45.6 fl (35.1-43.9); Red Blood Count 4.47 M/mm3 (4.2-5.4); White Blood Count 16.3 K/mm3 (4.4-11.0)
[2018-12-05 12:50] LABS: Eosinophil 1 % (0-5); Lymphocyte 16 % (19-41); Metamyelocyte 1 % (0-1); Monocyte 9 % (0-10); Myelocyte 1 (0-0); Neutrophil-Band 6 % (0-5); Neutrophil-Segmented 66 % (47-70); Reactive Lymphocyte 1+; Total Cells Counted 100 (MANUAL DIFF)
[2018-12-05 12:51] LABS: Platelet Estimate ADEQUATE (ADEQ); Red Cell Morphology NORM C+C NORMAL (NORM C&C)
[2018-12-05 12:55] LABS: Absolute Neutrophil Count 11.7 X10^3/uL (2.0-7.7)
--- NOTE | 2018-12-05 15:25 | CT_ITS ---
STUDY: CT CHEST WITHOUT CONTRAST REASON FOR EXAM: Female, 73 years old. COPD. Cough and asthma x6 weeks. RADIATION DOSAGE (If Supplied By Facility): CTDIvol = ( 15.27 ) mGy, DLP = ( 526.57 ) mGycm TECHNIQUE: Transaxial imaging was performed without the administration of intravenous contrast material. Coronal and sagittal reconstructions were performed. Individualized dose optimization techniques were used for this CT. COMPARISON: None. FINDINGS: Focal interstitial infiltrate in the right posterior lung base. No suspicious pulmonary nodules. There is no demonstrated pleural abnormality. Normal heart and pericardium. Normal mediastinum. Normal hilar regions. Normal unenhanced pulmonary arteries. Normal aorta arch and descending thoracic aorta. Minimal anterior wedge compression fracture of the superior endplates of T6 and T7 vertebral bodies. They are presumably from remote injury. Small hypodense cysts in the right hepatic lobe. 7 mm nonobstructing calculus in the right kidney. Prominent hiatal hernia. CT/Chest without Contrast IMPRESSION: 1. Small focal interstitial infiltrate in the right posterior lung base. 2. Minimal anterior wedge compression fracture of the superior endplates of T6 and T7 vertebral bodies are from remote injury. 3. Small hypodense cysts in the right hepatic lobe. 4. 7 mm nonobstructing calculus in the right kidney. 5. Prominent hiatal hernia. Electronically Signed: Grant Stout MD at 13:39 EST , Service support ,
[2018-12-07 09:23] LABS: Pathologist Review Reviewed
== END ==
PROVIDERS: Family Provider Internal Medicine; PCP Internal Medicine; Referring Provider Internal Medicine Pulmonary Disease; Visit Provider Internal Medicine Pulmonary Disease
DX: R05 Cough (principal); J45.909 Unspecified asthma, uncomplicated
CPT/HCPCS: 36415; 71250; 85025; 87070; 87205

== ENCOUNTER → 2018-12-12 11:38 | Outpatient (CLI) | payer MEDICARE, BC, SELFPAY ==
[2018-12-12 12:46] LABS: Hematocrit 37.9 % (37-47); Hemoglobin 12.3 g/dl (12.0-15.0); Mean Corp Hgb Conc 32.5 g/gl (32-36); Mean Corpuscular Hgb 29.9 pg (27.0-32.0); Mean Corpuscular Volume 92.2 fL (81-99); Mean Platelet Vol. 10.2 fl (6.2-12.0); Platelet Count 252 K/mm3 (150-450); RBC Distribution Width CV 13.1 % (11.6-14.6); RBC Distribution Width SD 43.8 fl (35.1-43.9); Red Blood Count 4.11 M/mm3 (4.2-5.4); White Blood Count 5.9 K/mm3 (4.4-11.0)
[2018-12-12 12:47] LABS: Scan Indicated on CBC? Y/N NO
== END ==
PROVIDERS: Family Provider Internal Medicine; PCP Internal Medicine; Referring Provider Internal Medicine Pulmonary Disease; Visit Provider Internal Medicine Pulmonary Disease
DX: J45.909 Unspecified asthma, uncomplicated (principal); R05 Cough
CPT/HCPCS: 36415; 85027

== ENCOUNTER → 2019-05-05 | Outpatient (CLI) | payer MEDICARE, BC, SELFPAY ==
--- NOTE | 2019-05-05 15:43 | RAD_ITS ---
HISTORY: LOW BACK PAIN FOR ABOUT 1 YEAR NOT GETTING ANY BETTER PER PATIENT. COMPARISON: None FINDINGS: # of images incl. paperwork: 5 5 views of the lumbar spine. Bony alignment is normal. Vertebral body height is normal. Degenerative disc disease is present at every level. Degenerative disc manifest by loss of disc height, endplate sclerosis, and anterior enthesophytes. Facet arthropathy is present, greatest at the L4-L5 and L5-S1 levels. No acute fractures are perceived. Both femoral heads well-seated within their respective acetabula. Bowel gas pattern is normal. RAD/L/S Spine Min 4 Views IMPRESSION: Multilevel degenerative disc disease with facet arthropathy. at 0017 Reported and signed by: Dio Gonzalez MD Electronically Signed: Dio Gonzalez MD at 0:16 EDT Tel , Service support ,
== END | disposition home or self-care (01) ==
LOC: MTRAD 15:38
PROVIDERS: Family Provider Internal Medicine; PCP Internal Medicine; Referring Provider Internal Medicine; Visit Provider Internal Medicine
DX: M54.5 Low back pain (principal)
CPT/HCPCS: 72110

== ENCOUNTER 2019-07-11 09:30 | Outpatient (RCR) | payer MEDICARE, BC, SELFPAY ==
--- NOTE | 2019-05-09 09:00 | HP.PTEVAL_ITS ---
Patient's Visit Information ELSIE BRIGGS is a 73 year old F referred to Physical Therapy by Jessica Tanner DO with a diagnosis of LBP. Date of Evaluation: 05/09/19 Physical Therapist: Phani Coleman, PT, ATC - Visit Plan Frequency: 2x /Week Duration: 4 Weeks Plan: Postural edu, REIL, Core stab ex's, and HEP - Subjective Findings: Pt reports she has had LBP for greater than 3 months. 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 Pt notes she has had bilateral TKA performed and is unable to kneel down to garden and believes this may have caused her LBP. Pt notes she has a hard time with standing or walking for a long period of time. Pt reports she has to sit or lye down in order to relieve her pain. Pt reports she had xrays taken a couple days ago but does not have the results yet. Pt reports occasional sleep difficulty secondary to pain. 0/10 pain at rest, 6/10 pain at worst (at the end of the day). No LE radiculopathy at this time. - Pain LBP Pain Intensity (Out of 10): 0 Pain Intensity Range: 6 - Objective Neuro: B LE sensation is WNL to light touch. B achilles reflex= 1/3. MMT: B LE 5/5 throughout. L/S ROM: B SB is minimally limited and increases pain. Ext is moderately limited and causes pain. Flex is WNL. Repeated movements: RFIS 10x2 resulted in increased R LB pain. DELILAH 10x2 had no effect. REIL 10x2 made pt feel better. - Goals Goal 1:: Decrease LBP x 50% to aid with sleep Goal Time Frame: 2-4 Weeks Goal 2:: Increase L/S ROM x 1 grade to aid with IADL's Goal Time Frame: 2-4 Weeks Goal 3:: I with HEP Goal Time Frame: 2-4 Weeks - Rehabilitation Potential Physical Therapy Diagnosis: Pt has LBP, decreased L/S ROM, and limited ability to garden secondary to degenerative changes in L/S Rehabilitation Potential: Good - Anticipated Interventions Patient/Client Instruction: Educate patient on: Condition, Plan of Care For the Purpose of:: To improve self management Therapeutic Exercise to Include: Strength training, Endurance training, Balance training, Body mechanics, Postural training, Dynamic Lumbar Stabilization For the Purpose of:: To decrease pain, To increase ROM, To improve muscle performance and motor function Cryotherapy (ice pack, ice massage): Yes For the Purpose of:: To decrease pain Thank you for the opportunity to evaluate your patient. For Medicare and Medicare HMO plans, please review the plan of care and approve it. It will need to be FAXED BACK to us at [phone] for Medicare purposes. For Medicare only, by signing this I certify the plan of care. Please let me know if there are questions or concerns regarding this plan of care. Physician Signature: Date:
--- NOTE | 2019-06-13 10:01 | HP.PTREVAL ---
Jessica Tanner, DO, It has been my pleasure to treat ELSIE BRIGGS over the last 10 visits for LBP. Please see the progress note below for an update on the physical therapy plan of care! Subjective: Pt reports her pain is not as often as it used to be. Objective/Function: LBP ranges from 0/10 to 5/10 at worst. Pt is still moderately limited with B SB and ext ROM in the L/S. Pt is progressing well toward Rx goals Plan Plan: Cont with POC 2-3 times per week for 4 weeks Goals Goal 1:: Decrease LBP x 50% to aid with sleep Goal Time Frame: 2-4 Weeks Goal Progress: Goal Met Goal 2:: Increase L/S ROM x 1 grade to aid with IADL's Goal Time Frame: 2-4 Weeks Goal Progress: Progressing Goal 3:: I with HEP Goal Time Frame: 2-4 Weeks Goal Progress: Progressing Anticipated Interventions Patient/Client Instruction: Educate patient on: Condition, Plan of Care For the Purpose of:: To improve self management Therapeutic Exercise to Include: Strength training, Endurance training, Balance training, Body mechanics, Postural training, Dynamic Lumbar Stabilization For the Purpose of:: To decrease pain, To increase ROM, To improve muscle performance and motor function Cryotherapy (ice pack, ice massage): Yes For the Purpose of:: To decrease pain Please do not hesitate to contact me at [phone] by phone or if you have questions or concerns regarding this new plan of care! Sincerely, Phani Coleman, PT, ATC
--- NOTE | 2019-09-11 16:46 | HP.PT.NRP ---
HP - Discharge Summary (1) - Patient Information ELSIE BRIGGS was seen in my office for initial evaluation on 05/09/19. The following Plan of Care was established for this patient: Initial Frequency: 2x /Week Initial Duration: 4 Weeks - Anticipated Interventions Patient/Client Instruction: Educate patient on: Condition, Plan of Care For the Purpose of:: To improve self management Therapeutic Exercise to Include: Strength training, Endurance training, Balance training, Body mechanics, Postural training, Dynamic Lumbar Stabilization For the Purpose of:: To decrease pain, To increase ROM, To improve muscle performance and motor function Cryotherapy (ice pack, ice massage): Yes For the Purpose of:: To decrease pain This patient was last seen in our office . Pertinent comments regarding their Physical therapy will appear below: Pt was treated for 15 PT visits for her LBP through the date of 07/11/19. Pt has not returned through todays date, and is discontinued at this time. At this point I will be discontinuing this patient from physical therapy. I would be happy to see this patient again in the future if found appropriate by the physician. Thank you! Phani Coleman, PT, ATC
== END 2019-07-11 19:00 | disposition home or self-care (01) ==
LOC: PT 09:30
PROVIDERS: Family Provider Internal Medicine; PCP Internal Medicine; Referring Provider Internal Medicine; Visit Provider Internal Medicine
DX: S39.012D Strain of muscle, fascia and tendon of lower back, subsequent encounter (principal)
CPT/HCPCS: 97110; 97140; 97161; 97530

== ENCOUNTER → 2019-09-21 11:49 | Outpatient (CLI) | payer MEDICARE, BC, SELFPAY ==
--- NOTE | 2019-09-21 11:52 | RAD_ITS ---
STUDY: X-RAY - PELVIS AND BILATERAL HIPS REASON FOR EXAM: Female, 73 years old. Bilateral hip pain. No history of trauma. TECHNIQUE: AP view of the pelvis.? 2 views of the right hip, and 2 views of the left hip were obtained. COMPARISON: None. FINDINGS: There is increased fecal debris suggestive of constipation. Normal visualized soft tissue structures. There is diffuse demineralization of the osseous structures. There is narrowing with cortical sclerosis and osteophyte formation of the sacroiliac joint consistent with mild degenerative osteoarthritic changes. Normal bilateral superior and inferior pubic rami. There are mild degenerative changes of the pubic symphysis with articular narrowing and sclerosis. Normal bilateral ischial tuberosities. There are mild osteoarthritic changes of the right femoral head with marginal osteophyte formation. There is osteoarthritic spur formation of the right acetabular rim. There is mild articular joint space narrowing of the right hip. There are mild osteoarthritic changes of the left femoral head with marginal osteophyte formation. There is osteoarthritic spur formation of the left acetabular rim. There is mild articular joint space narrowing of the left hip. RAD/Hips B/L min 2 views w/ Pelvis IMPRESSION: Diffuse osteopenia along with degenerative disease as described above. No acute fracture or subluxation. Electronically Signed: Katheryn Ruiz MD at 2:52 EST , Service support ,
== END ==
PROVIDERS: Family Provider Internal Medicine; PCP Internal Medicine; Referring Provider Internal Medicine; Visit Provider Internal Medicine
DX: M25.551 Pain in right hip (principal); M25.552 Pain in left hip
CPT/HCPCS: 73521

== ENCOUNTER → 2020-03-12 15:06 | Outpatient (CLI) | payer MEDICARE, BC, SELFPAY ==
[2020-03-12 18:16] LABS: AST(SGOT) 23 U/L (15-37); Alanine Aminotransfer ALT/SGPT 25 U/L (13-56); Albumin, Serum 3.9 g/dL (3.2-5.0); Alkaline Phosphatase 48 U/L (45-117); Bilirubin, Direct 0.12 mg/dL (0.00-0.30); Globulin 2.8 g/dL (2.2-4.2); Protein, Total 6.7 g/dL (6.4-8.2)
[2020-03-14 15:48] LABS: AFP, Tumor Marker 8.6 ng/mL (0.0-8.3)
== END ==
PROVIDERS: PCP Internal Medicine; Referring Provider Internal Medicine Gastroenterology; Visit Provider Internal Medicine Gastroenterology
DX: K76.0 Fatty (change of) liver, not elsewhere classified (principal); K74.0 Hepatic fibrosis
CPT/HCPCS: 36415; 80076; 82105

== ENCOUNTER 2020-04-19 10:00 | Outpatient (RCR) | payer MEDICARE, BC, SELFPAY ==
--- NOTE | 2020-03-14 09:54 | HP.PTEVAL_ITS ---
Patient's Visit Information ELSIE BRIGGS is a 74 year old F referred to Physical Therapy by Jessica Tanner DO with a diagnosis of B greater trochanteric bursitis. Date of Evaluation: 03/13/20 Physical Therapist: El Lopez DPT - Visit Plan Frequency: 2x /Week Duration: 4 Weeks Plan: Start with HS (both medial and lateral) stretching, IT band stretching, piriformis stretching. Progressing to light NON PAINFULL strengthening of her B piriformis and glute med musculature. May use US to modulate pain in order to tolerate above exercises and stretching. - Subjective Pt. is here today for her initial evaluation with diagnosis of B greater trochanteric bursitis. Pt. reports having increased pain for ~8-10 months. Pt. reports no mech of injury, but was a gradual onset of symptoms. Pt. has had injections x2 in each region with decent results. Pt. has increased pain with static standing and later in the day prior to going to bed. Pt. reports taking over the counter medication which helps. She denies N/T in either LE. Pt. reports decreased pain with walking and sitting. Pt. is active, but does not regularly strengthen or stretch. Pt. is hopeful to reduce her symptoms in order to get back to all recreational and household activities with increase in symptoms. - Pain R hip Pain Intensity (Out of 10): 0 Pain Intensity Range: 0, 6 L hip Pain Intensity (Out of 10): 0 Pain Intensity Range: 0, 8 - Objective POSTURE: Pt. has decent posture in stance. PT. has normal lumbar lordosis, maybe slight increase in anterior pelvic tilt. Equal iliac crest heights. PALPATION: Pt. has increase in tenderness at bilateral greater trochanter, L worse than R. Pt. has some B piriformis pain and L3-S1 tenderness with PAs. Pt. has no upper lumbar soreness. NEURO: normal throughout. ROM: Lumbar spine: flexion- nil loss NE, ext min loss mild increase NW, SB nil loss NE, rotation min loss Bilat no effect. pt. has normal hip ROM. Pt. has tight HS, IT band and tighness with piriformis muscles. MMT: RLE- ankle/knee 5/5 throughout; hip- flexion 4+/5, abd 4/5, ext 4/5. LLE- ankle/knee 5/5 throughout; hip- flexion 4+/5, abnd 4/5, ext 4/5. GAIT: Pt. has decent gait pattern without marked antalgic pattern. STAIRS: normal with reciprocal pattern with use of 1 HR. - Special Tests R Hip Scour: Negative R Hip RADHA - Intraarticular Pathology: Negative R Hip FADDIR - Labrum: Negative R Hip Suresh - IT Band: Positive Comment: TTP at greater trochanter L Hip Scour: Negative L Hip RADHA - Intraarticular Pathology: Negative L Hip FADDIR - Labrum: Negative L Hip Suresh - IT Band: Positive Comment: TTP at greater trochanter - Goals Goal 1:: LTG: PT. to be I with HEP. Goal Time Frame: 4-6 Weeks Goal 2:: LTG: Pt. to have increased HS length, IT band length and piriformis length by 25% allowing for better pelvic/hip posture. Goal Time Frame: 4-6 Weeks Goal 3:: LTG: Pt. to stand upto 1 hour without increase in symptoms allowing for increased tolerance to all household and outside chores. Goal Time Frame: 4-6 Weeks Goal 4:: STG: PT. to sleep without increase in symptoms. Goal Time Frame: 2-4 Weeks Goal 5:: LTG: pt. to have increased BLE strength increased by 1/2 grade of all effected musculature. Goal Time Frame: 4-6 Weeks - Rehabilitation Potential Physical Therapy Diagnosis: Pt. has signs and symptoms consistent with B greater trochanteric bursits. Pt. would benefit from HS, IT band, and piriformis stretching. Progressing to adding in glute med strengthening to reduce stress applied to TFL with static standing and functional mobility. Rehabilitation Potential: Good - Anticipated Interventions Patient/Client Instruction: Educate patient on: Condition, Plan of Care, Risk Factors, Benefits of Fitness Program For the Purpose of:: To foster healthy habits, To improve decision making, To facilitate caregiver knowledge, To improve self management, To prevent re- injury, To improve ability to perform tasks related to life management, To improve tolerance to ADL's Therapeutic Exercise to Include: Strength training, Power training, Body mechanics, Postural training, Flexibilty training, Gait and locomotor training, Passive ROM, Active ROM, Dynamic Lumbar Stabilization, Sakina Exercises For the Purpose of:: To decrease pain, To decrease swelling/inflammation, To increase ROM, To improve nutrient delivery to tissue, To increase oxygenation perfusion, To improve muscle performance and motor function, To improve ability to perform ADL's, To improve gait and locomotor functions, To improve health of tissue, To decrease soft tissue restriction, To increase flexibility/ROM Ultrasound (thermal/non thermal): Yes For the Purpose of:: To decrease pain, To decrease swelling/inflammation, To increase ROM, To improve nutrient delivery to tissue, To increase oxygenation perfusion Thank you for the opportunity to evaluate your patient. For Medicare and Medicare HMO plans, please review the plan of care and approve it. It will need to be FAXED BACK to us at [phone] for Medicare purposes. For Medicare only, by signing this I certify the plan of care. Please let me know if there are questions or concerns regarding this plan of care. Physician Signature: Date:
--- NOTE | 2020-04-19 10:44 | HP.PTREVAL_ITS ---
Dr. Jessica Tanner, DO, It has been my pleasure to treat ELSIE BRIGGS over the last 9 visits for B greater trochanteric bursitis. Please see the progress note below for an update on the physical therapy plan of care! Subjective: Pt. reports no issues currently. Pt. reports sleeping well without pain. Pt. reports was able to walk and stand for unlimited time frames without pain. Pt. reports being HEP compliant. Objective/Function: Pt. is doing well. Pt. reports no pain currently. She is back to all recreational activitise without limtiaitons. Pt. was advised to continue with strethcing and strengthening at home. ROM: Pt. had normal HS and IT badn length without increase in symptoms. MMT: 5/5 throughout BLEs without incerase in symptoms. PT. is walking unlimited distances without increase in symptoms. Pt. report being able to statically stand without increase in symptoms as well. Pt. is independent with her exercsie program at this point in time. Plan Plan: Pt. to trial exercises on her own for 2 weeks. I will DC patient if doing well after 2 weeks. Goals Goal 1:: LTG: PT. to be I with HEP. Goal Time Frame: 4-6 Weeks Goal Progress: Goal Met Goal 2:: LTG: Pt. to have increased HS length, IT band length and piriformis length by 25% allowing for better pelvic/hip posture. Goal Time Frame: 4-6 Weeks Goal Progress: Goal Met Goal 3:: LTG: Pt. to stand upto 1 hour without increase in symptoms allowing for increased tolerance to all household and outside chores. Goal Time Frame: 4-6 Weeks Goal Progress: Goal Met Goal 4:: STG: PT. to sleep without increase in symptoms. Goal Time Frame: 2-4 Weeks Goal Progress: Goal Met Goal 5:: LTG: pt. to have increased BLE strength increased by 1/2 grade of all effected musculature. Goal Time Frame: 4-6 Weeks Goal Progress: Goal Met Anticipated Interventions Patient/Client Instruction: Educate patient on: Condition, Plan of Care, Risk Factors, Benefits of Fitness Program For the Purpose of:: To foster healthy habits, To improve decision making, To facilitate caregiver knowledge, To improve self management, To prevent re- injury, To improve ability to perform tasks related to life management, To improve tolerance to ADL's Therapeutic Exercise to Include: Strength training, Power training, Body mechanics, Postural training, Flexibilty training, Gait and locomotor training, Passive ROM, Active ROM, Dynamic Lumbar Stabilization, Sakina Exercises For the Purpose of:: To decrease pain, To decrease swelling/inflammation, To increase ROM, To improve nutrient delivery to tissue, To increase oxygenation perfusion, To improve muscle performance and motor function, To improve ability to perform ADL's, To improve gait and locomotor functions, To improve health of tissue, To decrease soft tissue restriction, To increase flexibility/ROM Ultrasound (thermal/non thermal): Yes For the Purpose of:: To decrease pain, To decrease swelling/inflammation, To increase ROM, To improve nutrient delivery to tissue, To increase oxygenation perfusion Please do not hesitate to contact me at [phone] by phone or if you have questions or concerns regarding this new plan of care! Sincerely, El Lopez DPT
--- NOTE | 2020-07-30 12:42 | HP.PTDCNRP_ITS ---
ELSIE BRIGGS was seen in my office for initial evaluation on 03/13/20. The following Plan of Care was established for this patient: Initial Frequency: 2x /Week Initial Duration: 4 Weeks Patient/Client Instruction: Educate patient on: Condition, Plan of Care, Risk Factors, Benefits of Fitness Program For the Purpose of:: To foster healthy habits, To improve decision making, To facilitate caregiver knowledge, To improve self management, To prevent re- injury, To improve ability to perform tasks related to life management, To improve tolerance to ADL's Therapeutic Exercise to Include: Strength training, Power training, Body mechanics, Postural training, Flexibilty training, Gait and locomotor training, Passive ROM, Active ROM, Dynamic Lumbar Stabilization, Sakina Exercises For the Purpose of:: To decrease pain, To decrease swelling/inflammation, To increase ROM, To improve nutrient delivery to tissue, To increase oxygenation perfusion, To improve muscle performance and motor function, To improve ability to perform ADL's, To improve gait and locomotor functions, To improve health of tissue, To decrease soft tissue restriction, To increase flexibility/ROM Ultrasound (thermal/non thermal): Yes For the Purpose of:: To decrease pain, To decrease swelling/inflammation, To increase ROM, To improve nutrient delivery to tissue, To increase oxygenation perfusion This patient was last seen in our office 04/19/20. Pertinent comments regarding their Physical therapy will appear below: Pt. was doing very well at her last appointment. Pt. was to follow up with PT in 1-2 weeks if needed. Pt. has not been seen in several months and will be DC from PT at this point in time. At this point I will be discontinuing this patient from physical therapy. I would be happy to see this patient again in the future if found appropriate by the physician. Thank you! El Lopez, RAYAT
== END 2020-04-19 19:00 | disposition home or self-care (01) ==
LOC: PT 10:00
PROVIDERS: PCP Internal Medicine; Referring Provider Internal Medicine; Visit Provider Internal Medicine
DX: M70.62 Trochanteric bursitis, left hip (principal)
CPT/HCPCS: 97035; 97110; 97140; 97161; 97164

== ENCOUNTER → 2021-01-02 13:55 | Outpatient (CLI) | payer MEDICARE, BC, SELFPAY ==
--- NOTE | 2021-01-02 14:03 | BD_ITS ---
STUDY: DUAL ENERGY X-RAY ABSORPTIOMETRY / DXA REASON FOR EXAM: Female, 75 years old. 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 COMPARISON: Comparison is made with prior study dated 05/12/2018. FINDINGS: Lumbar Spine (L1-L4): g/cm2 (1.137) / T-score (-0.2) / Z-score (1.5) Findings are suggestive of normal bone density with a low fracture risk. Left Femur Total: g/cm2 (0.847) / T-score (-1.3) / Z-score (0.5) Left Femoral Neck: g/cm2 (0.801) / T-score (-1.7) / Z-score (0.2) Right Femur Total: g/cm2 (0.899) / T-score (-0.9) / Z-score (0.9) Right Femoral Neck: g/cm2 (0.842) / T-score (-1.4) / Z-score (0.5) The T-Scores on the most recent prior examination were: Lumbar Spine (L1-L4): There has been improvement of bone density since the previous examination. Left Femur Total: which represents an improvement of 4.3%. Right Femur Total: which represents an improvement of 4.9%. BD/Dexa Bone Density Study IMPRESSION: The patient is considered osteopenic as outlined below according to World Pra[employer] Organization (WHO) criteria with a low fracture risk. There has been improvement of bone density since the previous examination. Reference Information: The T-score is the number of standard deviations above or below the standard which is normal for young adults at their peak bone mineral density. The World Health Organization (WHO) interprets the T-scores as follows: Above -1 Normal bone density Between -1 and -2.5 Osteopenia Equal to / or below -2.5 Osteoporosis As a practical clinical guideline, osteopenia may be graded as follows: Mild -1 through -1.5 Moderate -1.6 through -2.0 Severe -2.1 through -2.4 The Z-score is the number of standard deviations above or below age-matched controls. A Z-score of less than -1.5 would be considered abnormal. References: 1. NIH Osteoporosis and Related Bone Diseases www osteo.org 2. International Society for Clinical Densitometry www iscd.org 3. National Osteoporosis Foundation www nof.org Electronically Signed: Yousif Hathaway MD at 15:46 EST , Service support ,
== END ==
PROVIDERS: PCP Internal Medicine; Referring Provider Internal Medicine; Visit Provider Internal Medicine
DX: Z78.0 Asymptomatic menopausal state (principal)
CPT/HCPCS: 77080

== ENCOUNTER → 2021-05-16 12:04 | Outpatient (CLI) | payer MEDICARE, BC, SELFPAY ==
[2021-05-16 12:31] LABS: Absolute Lymphocyte Count 0.83 X10^3/uL (0.83-4.51); Absolute Neutrophil Count 7.3 X10^3/uL (2.0-7.7); Basophil# 0.02 X10^3/uL; Basophil% 0.2 % (0-1); Eosinophil# 0.02 X10^3/uL; Eosinophils% 0.2 % (0-5); Hematocrit 37.1 % (37-47); Hemoglobin 12.1 g/dL (12.0-15.0); Lymphocyte # 0.83 X10^3/ul (0.83-4.51); Mean Corp Hgb Conc 32.6 g/dL (32-36); Mean Corpuscular Volume 92.1 fL (81-99); Mean Platelet Vol. 10.3 fl (6.2-12.0); Monocyte# 1.07 X10^3/uL; Monocyte% 11.6 % (0-10); NRBC Flagged by Analyzer 0 % (0-5); Neutrophil # 7.27 X10^3/uL (2.7-7.7); Neutrophil % 78.7 % (47-70); Platelet Count 248 K/mm3 (150-450); RBC Distribution Width SD 44.2 fl (35.1-43.9); Red Blood Count 4.03 M/mm3 (4.2-5.4); White Blood Count 9.2 K/mm3 (4.4-11.0)
[2021-05-16 12:40] LABS: Erythrocyte Sedimentation Rate 23 mm/hr (0-30)
[2021-05-16 13:05] LABS: ALB/GLOB Ratio 1.1 RATIO (0.9-2.4); AST(SGOT) 34 U/L (15-37); Alanine Aminotransfer ALT/SGPT 58 U/L (13-56); Albumin, Serum 3.4 g/dL (3.2-5.0); Alkaline Phosphatase 90 U/L (45-117); Anion Gap 7 (5-15); BUN 14 mg/dL (7-18); BUN/Creat Ratio 14.1 RATIO (10-20); Chloride 104 mmol/L (98-107); Creatinine, Serum 0.99 mg/dL (0.55-1.02); EST Glomerular Filtration Rate 58 mL/min (>60); Est Glom Filt Rate - Afr Amer 70 mL/min (>60); Glucose 86 mg/dL (74-106); Protein, Total 6.4 g/dL (6.4-8.2); Sodium Level 139 mmol/L (136-145); Thyroid Stim Hormone (TSH) 0.83 uIU/mL (0.358-3.74)
== END ==
PROVIDERS: PCP Internal Medicine; Referring Provider Nurse Practitioner; Visit Provider Nurse Practitioner
DX: T70.20XA Unspecified effects of high altitude, initial encounter (principal)
CPT/HCPCS: 80053; 84443; 85025; 85652

== ENCOUNTER → 2021-05-23 12:46 | Outpatient (CLI) | payer MEDICARE, BC, SELFPAY ==
--- NOTE | 2021-05-23 12:49 | RAD_ITS ---
HISTORY: PAIN IN HIPS EXAMINATION/TECHNIQUE: XR Hips Bilateral with Pelvis when performed; 2 Views: AP view pelvis with AP and lateral views bilateral hips. 5 images. COMPARISON: Pelvis and bilateral hip radiographs from 09/21/19. FINDINGS: PELVIC BONES: No displaced fracture or suspicious osseous lesion demonstrated. Note that overlapping bowel shadows may however obscure fine detail. Sacroiliac joints are unremarkable. No widening of the pubic symphisis. Stable degenerative changes along lower lumbar spine. HIPS: Symmetric and adequately aligned bilaterally with preserved joint spaces. No fracture, dislocation or suspicious osseous lesion. SOFT TISSUES: No acute findings. RAD/Hips B/L min 2 views w/ Pelvis IMPRESSION: Pelvis and hips with no acute radiographic abnormality. Lumbar spondylosis. at 2315 Reported and signed by: Jason Desai MD Electronically Signed: Jason Desai MD at 23:14 EDT Tel , Service support ,
== END ==
PROVIDERS: PCP Internal Medicine; Referring Provider Nurse Practitioner Family; Visit Provider Nurse Practitioner Family
DX: M25.552 Pain in left hip (principal); M25.551 Pain in right hip
CPT/HCPCS: 73521

== ENCOUNTER → 2021-06-21 07:20 | Outpatient (CLI) | payer MEDICARE, BC, SELFPAY ==
--- NOTE | 2021-06-21 07:28 | MRI_ITS ---
STUDY: MRI LEFT HIP REASON FOR EXAM: Female, 75 years old. LEFT HIP PAIN TECHNIQUE: Standardized fat and water weighted pulse sequences were obtained in all 3 orthogonal planes. COMPARISON: X-ray 05/23/2021 FINDINGS: Normal hip joint without articular joint space narrowing. Normal acetabulum. Normal labrum. Normal femoral head. Normal femoral neck and intratrochanteric region. Mild gluteal tendinosis and peritendinitis as. There is no trochanteric, iliopsoas or iliopectineal bursitis. Normal superior and inferior pubic rami. Normal pubic symphysis. Normal ischial tuberosity. Normal origin of the hamstring tendons. Normal visualized iliac wing, sacroiliac joint, and sacral ala. Normal visualized soft tissue structures of the pelvis. MRI/Lower Ext Joint Only (Routine) IMPRESSION: Mild gluteal tendinosis and peritendinitis. Electronically Signed: Kyle Terrazas MD at 9:13 EDT Tel , Service support ,
== END ==
PROVIDERS: PCP Internal Medicine; Referring Provider Nurse Practitioner Family; Visit Provider Nurse Practitioner Family
DX: M25.552 Pain in left hip (principal)
CPT/HCPCS: 73721

== ENCOUNTER → 2021-07-24 06:29 | Outpatient (CLI) | payer MEDICARE, BC, SELFPAY ==
--- NOTE | 2021-07-24 09:16 | STRESSREP ---
Stress Test Report Date: 07-24-2021 Procedure: Exercise tolerance test/imaging study Indications: Fatigue; thromboembolic disease; IVC filter-extracted Consent: Per the patient Procedure: The patient exercised on a Serjio protocol for 9 minutes completing Stage III achieving a peak heart rate of 133 bpm (91% predicted maximal heart rate) with a peak blood pressure 160/62 mmHg and a peak MET capacity of 10 METs. The baseline ECG demonstrated sinus rhythm. The peak exercise ECG demonstrated somatic/motion artifact with beat to beat nonspecific ST segment variability. There were no cardiac dysrhythmias pretest, during exercise, or recovery. The functional capacity was considered good. There was no complaint of chest discomfort during exercise or recovery. The examination was discontinued secondary to dyspnea. Impression: 1. Technically adequate (percent predicted maximal heart rate greater than 85%) exercise tolerance test 2. Peak exercise ECG with somatic/motion artifact with beat to beat nonspecific ST segment variability 3. There were no cardiac dysrhythmias pretest, during exercise, or recovery 4. Nuclear images pending Myocardial perfusion imaging study: Technique: The patient was injected with 11.0 mCi of technetium 99m Cardiolite and subsequently rest SPECT Cardiolite nuclear imaging was obtained in the horizontal long, vertical long, and short axis views. The patient exercised on a Serjio protocol for 9 minutes completing Stage III achieving a peak heart rate of 133 bpm (91% predicted maximal heart rate) with a peak blood pressure 160/62 mmHg and a peak MET capacity of 10 METs. The patient was injected with 35.0 mCi of technetium 99m Cardiolite and subsequently stress SPECT Cardiolite nuclear imaging was obtained in the horizontal long, vertical long, and short axis views. A gated Cardiolite study at peak stress was obtained. Interpretation: Rest and stress SPECT Cardiolite nuclear imaging status post realignment, normalization, and attenuation correction, demonstrates the appearance of relative uniform tracer uptake and myocardial perfusion appearing within normal limits. There is end systolic thickening and brightening. The gated Cardiolite study demonstrates myocardial thickening and inward wall motion. The reported LVEF is 70%. Impression: 1. Rest and stress SPECT Cardiolite nuclear imaging demonstrate relative uniform tracer uptake and myocardial perfusion appearing within normal limits. 2. The gated Cardiolite study reports an LVEF of 70%. This note was generated with [email or web address] software. It may contain incorrect words, spelling, and punctuation that were not noted in checking the note before signing.
== END ==
PROVIDERS: PCP Internal Medicine; Referring Provider Internal Medicine; Visit Provider Internal Medicine
DX: R06.00 Dyspnea, unspecified (principal); R68.89 Other general symptoms and signs
CPT/HCPCS: 78452; 93017; A9500; A4216

== ENCOUNTER 2021-12-03 13:16 | Outpatient (CLI) | payer MEDICARE, BC, SELFPAY ==
[2021-12-03 18:09] LABS: Ferritin 61 ng/mL (8-252)
== END 2021-12-03 23:59 | disposition short-term general hospital (02) ==
LOC: LAB 13:19
PROVIDERS: PCP Internal Medicine; Referring Provider Internal Medicine Pulmonary Disease; Visit Provider Internal Medicine Pulmonary Disease
DX: G25.81 Restless legs syndrome (principal)
CPT/HCPCS: 36415; 82728

== ENCOUNTER → 2022-03-09 | Outpatient (CLI) | payer MEDICARE, BC, SELFPAY ==
--- NOTE | 2022-03-09 14:08 | RAD_ITS ---
STUDY: X-RAY CHEST REASON FOR EXAM: Female, 76 years old. COUGH -- DAY 7 OF COVID - STAT TECHNIQUE: PA and lateral views of the chest. COMPARISON: Comparison is made with prior study dated 05/31/2019. FINDINGS: There is hyperinflation of the lungs consistent with chronic obstructive lung disease (COPD). No focal infiltrate is seen. There is no demonstrated pleural abnormality. Normal size heart. Normal mediastinum and ester. Normal visualized pulmonary arteries. Normal visualized aortic arch and descending thoracic aorta. There are diffuse degenerative changes of the visualized thoracic spine. The patient is status post left shoulder replacement. There is no demonstrated abnormality of the visualized soft tissue structures of the upper abdomen. RAD/Chest PA and Lateral IMPRESSION: Hyperinflation. The lungs are clear. No acute abnormality is seen. Electronically Signed: Yousif Hathaway MD at 14:48 EDT ,
== END | disposition home or self-care (01) ==
PROVIDERS: PCP Internal Medicine; Referring Provider Internal Medicine; Visit Provider Internal Medicine
DX: R05.9 Cough, unspecified (principal)
CPT/HCPCS: 71046

== ENCOUNTER 2022-05-26 14:53 | Outpatient (CLI) | payer MEDICARE, BC, SELFPAY ==
[2022-05-26 18:06] LABS: Prothrombin Time (Protime)PT. 12.6 SECONDS (11.7-14.9)
[2022-05-26 18:07] LABS: Partial Thromboplast Time 28.5 Seconds (24.1-36.2)
[2022-05-26 18:25] LABS: ALB/GLOB Ratio 1.1 RATIO (0.9-2.4); AST(SGOT) 15 U/L (15-37); Alanine Aminotransfer ALT/SGPT 21 U/L (13-56); Albumin, Serum 3.6 g/dL (3.2-5.0); Alkaline Phosphatase 81 U/L (45-117); Anion Gap 8 (5-15); BUN 17 mg/dL (7-18); Calcium,Total 9.3 mg/dL (8.5-10.1); Chloride 100 mmol/L (98-107); EST Glomerular Filtration Rate 57 mL/min (>60); Est Glom Filt Rate - Afr Amer 69 mL/min (>60); Globulin 3.4 g/dL (2.2-4.2); Glucose 97 mg/dL (74-106); Potassium 4.1 mmol/L (3.5-5.1); Sodium Level 138 mmol/L (136-145)
[2022-05-28 12:02] LABS: AFP, Tumor Marker 6.7 ng/mL (0.0-9.2)
== END 2022-05-26 23:59 | disposition home or self-care (01) ==
PROVIDERS: PCP Internal Medicine; Referring Provider Internal Medicine Gastroenterology; Visit Provider Internal Medicine Gastroenterology
DX: K76.0 Fatty (change of) liver, not elsewhere classified (principal)
CPT/HCPCS: 36415; 80053; 82105; 85610; 85730

== ENCOUNTER → 2022-06-12 | Outpatient (CLI) | payer MEDICARE, BC, SELFPAY ==
--- NOTE | 2022-06-12 08:52 | US_ITS ---
STUDY: ABDOMINAL ULTRASOUND - RIGHT UPPER QUADRANT REASON FOR VISIT: Female, 76 years old FATTY LIVER TECHNIQUE: Ultrasound evaluation of the right upper quadrant was performed with real-time and static garces-scale imaging. TECHNICAL QUALITY: Adequate. COMPARISON: CT scan obtained on 11/27/2018.. FINDINGS: Liver: The liver measures 14.6 cm. There is normal echogenicity of the liver. The bile ducts are within normal limits. There is hepatic color flow. The direction of portal flow is hepatopetal. There is no demonstrated mass lesion. Gallbladder: Normal distended gallbladder. The gallbladder wall measures 3 mm. There is a negative sonographic Cortez''s sign. There is no pericholecystic fluid. There are no gallstones. A single gallbladder wall polyp is visualized measuring 0.4 x 0.5 x 0.3 cm. Common Bile Duct (C.B.D.): The common bile duct measures 3 mm. Pancreas: Normal size of the head and body of the pancreas. There is slightly increased echogenicity of the pancreas. There is no demonstrated pancreatic mass or cyst. Right Kidney: Normal size of the right kidney. The right kidney measures 9.6 x 4.2 x 5.7 cm. Normal renal cortex. The right cortex measures 1.7 cm. There is no demonstrated renal mass or cyst. There is moderate right hydronephrosis. US/Liver IMPRESSION: No significant increase echogenicity of the liver is seen. Moderate right hydronephrosis. Electronically Signed: Ronald Alarcon MD at 12:14 EDT ,
--- NOTE | 2022-06-12 08:55 | US_ITS ---
STUDY: ABDOMINAL ULTRASOUND - ELASTOGRAPHY REASON FOR VISIT: Female, 76 years old. Fatty infiltration of the liver. TECHNIQUE: Liver stiffness measurements were obtained on a Entomo RS 85 ultrasound machine using a CA 1-7 probe following the SRU guidelines. 3 measurements were obtained using a 2-D-SWE method. The IQR/M was 16 % suggesting a quality data set. TECHNICAL QUALITY: Adequate. COMPARISON: Comparison is made with prior examination done earlier today. FINDINGS: Liver: There is no demonstrated mass lesion. Median liver stiffness measured 9.1 kPa. US/Elastography Parenchyma/Organ IMPRESSION: Liver stiffness measures 9.1 kPa compatible with F2-F3 (Mild to moderate liver fibrosis) Metavir score. Electronically Signed: Yousif Hathaway MD at 14:00 EDT ,
== END | disposition home or self-care (01) ==
LOC: US 08:51
PROVIDERS: PCP Internal Medicine; Visit Provider Internal Medicine Gastroenterology
DX: K76.0 Fatty (change of) liver, not elsewhere classified (principal); N13.30 Unspecified hydronephrosis
CPT/HCPCS: 76705; 76981

== ENCOUNTER → 2023-05-04 | Outpatient (CLI) | payer MEDICARE, BC, SELFPAY ==
--- NOTE | 2023-05-04 14:09 | BD_ITS ---
STUDY: DUAL ENERGY X-RAY ABSORPTIOMETRY / DXA REASON FOR EXAM: Female, 77 years old. [id number] TECHNIQUE: Bone Mineral Density (BMD) measurements of lumbar spine and bilateral hips were obtained. COMPARISON: Comparison is made with prior study dated 01/02 2021. FINDINGS: Lumbar Spine (L1-L4): g/cm2 (0.954) / T-score (-0.8) / Z-score (1.7) Findings are suggestive of normal bone density with a low fracture risk. Left Femur Total: g/cm2 (0.736) / T-score (-1.7) / Z-score (0.2) Left Femoral Neck: g/cm2 (0.575) / T-score (-2.5) / Z-score (-0.3) Right Femur Total: g/cm2 (0.740) / T-score (-1.7) / Z-score (0.3) Right Femoral Neck: g/cm2 (0.680) / T-score (-1.5) / Z-score (0.7) The T-Scores on the most recent prior examination were: Lumbar Spine (L1-L4): There has been worsening of bone density since the previous examination. Left Femur Total: which represents a worsening of 6.4%. Right Femur Total: which represents a worsening of 11.5%. BD/Dexa Bone Density Study IMPRESSION: The patient is considered osteopenic as outlined below according to World Praveen Organization (WHO) criteria with a high fracture risk. There has been worsening of bone density since the previous examination. Reference Information: The T-score is the number of standard deviations above or below the standard which is normal for young adults at their peak bone mineral density. The World Health Organization (WHO) interprets the T-scores as follows: Above -1 Normal bone density Between -1 and -2.5 Osteopenia Equal to / or below -2.5 Osteoporosis As a practical clinical guideline, osteopenia may be graded as follows: Mild -1 through -1.5 Moderate -1.6 through -2.0 Severe -2.1 through -2.4 The Z-score is the number of standard deviations above or below age-matched controls. A Z-score of less than -1.5 would be considered abnormal. References: 1. NIH Osteoporosis and Related Bone Diseases www osteo.org 2. International Society for Clinical Densitometry www iscd.org 3. National Osteoporosis Foundation www nof.org Electronically Signed: Yousif Hathaway MD at 15:50 EDT ,
== END | disposition home or self-care (01) ==
LOC: OPBD 13:56
PROVIDERS: PCP Internal Medicine; Referring Provider Internal Medicine; Visit Provider Internal Medicine
DX: Z78.0 Asymptomatic menopausal state (principal)
CPT/HCPCS: 77080

== ENCOUNTER → 2023-05-19 | Outpatient (CLI) | payer MEDICARE, BC, SELFPAY | END | disposition home or self-care (01) | PROVIDERS: PCP Internal Medicine; Referring Provider Internal Medicine; Visit Provider Internal Medicine | DX: T17.308A Unspecified foreign body in larynx causing other injury, initial encounter (principal) | CPT/HCPCS: 74230 ==

== ENCOUNTER → 2023-05-21 | Outpatient (CLI) | payer MEDICARE, BC, SELFPAY ==
--- NOTE | 2023-05-19 16:06 | ST.MBS ---
Modified Barium Swallow Patient Information Study Date: 05/19/23 Study Time: 13:00 Direct Billable Minutes: 120 Total Minutes procedure & reportin Diagnosis: GERD (K21.9), Asthma (J45.909) Referring Physician: Jessica Tanner Reason for Referral: Objectively assess swallow function, assess risk for aspiration, and determine recommendations for least restrictive diet textures and compensatory strategies to improve safety of swallow. Medical History: Sue Hawthorne is a 77-year-old female with a past medical history notable for dyslipidemia, chronic back pain due to chronic degenerative joint disease, remote history of breast DCIS status post bilateral mastectomies and 5 years of tamoxifen, irritable bowel syndrome, history of renal calculus disease, osteopenia, asthma, tonsilectomy as a child, and GERD. See PMH in the H&P for full report. Patient reported a neck injury as a child, resulting in her neck becoming out of place. Patient has since followed with a chiropractor, but reports no swallowing concerns post injury. Patinet reports no hx of chemo or radiation. Additionally pt reports she is being managed for GERD and allergies. Patient referred for MBSS due to occasional episodes of having difficulty swallowing. Patient reports she occasionally has difficulty swallowing saliva, requiring multiple attempts to get her swallow going. Patient reports no concerns with foods, but will throat clear and cough on drinks often. Patient reports this will occur less than one time per week, and has been happening for about the last 1-2 years. Current Diet Ordered: Regular Textures/ Thin Liquids Dentition: Upper Dentures Mental Status: WNL Respiratory Status: Oxygenating on Room Air Penetration-Aspiration Scale Penetration-Aspiration Scale: OBJECTIVE ASSESSMENT OF SWALLOW FUNCTION (QUANTITATIVE ? PER TRIAL): PENETRATION / ASPIRATION SCALE (PRESTON): 1 = does not enter airway 2 = enters airway/above vocal folds/ejected 3 = enters airway/above vocal folds/not ejected 4 = enters airway/contacts vocal folds/ejected 5 = enters airway/contacts vocal folds/not ejected 6 = enters airway/below vocal folds/ejected 7 = enters airway/below vocal folds/not ejected despite effort 8 = enters airway/below vocal folds/no effort VIDEOFLOROSCOPIC SCALE SCORE (PRESTON): Grade I = aspiration of material that has penetrated into the laryngeal vestibule, intact cough reflex Grade II = aspiration < 10 % of the bolus, intact cough reflex Grade III = aspiration of < 10 % of the bolus, reduced cough reflex or aspiration of > 10 % of the bolus, intact cough reflex Grade IV = aspiration of > 10 % of the bolus, reduced cough reflex Penetration-Aspiration Scale Score Thin Liquid via teaspoon: Result: 1= does not enter airway Thin Liquid via teaspoon Trial 2: Result: 3= enters airways/above vocal folds/not ejected Comment: Independently use of throat clear and re-swallow, which reliably ejected laryngeal residue. Thin Liquid via small cup sip : Result: 2= enter airway/above vocal folds/ejected Comment: Very trace penetration [place] Thick Liquid via small cup sip: Result: 1= does not enter airway Pudding via tsp w/esophageal screen: Result: 1= does not enter airway 1/2 Cookie: Result: 1= does not enter airway Thin Liquid via sequential straw sips: Result: 2= enter airway/above vocal folds/ejected Thin Liquid via single cup sip: Result: 1= does not enter airway Oral Phase Labial Seal: Escape beyond interlabial space; no extension beyond ana m border Tongue Control During Bolus Hold: Posterior escape of greater than half of bolus Bolus Preparation/Mastication: Timely and efficient chewing and mashing Bolus Transport/Lingual Motion: Delayed initiation of tongue motion Oral Residue: Trace residue lining oral structures Pharyngeal Phase Initiation of Pharyngeal Swallow: Bolus head in pyriforms Soft Palate Elevation: Trace column of contrast/air between soft palate and pharyngeal wall Laryngeal Elevation: Comp. Superior move thyroid cart w/comp. apprx arytenoid cart-epig pet Anterior Hyoid Excursion: Partial anterior movement Epiglottic Movement: Partial inversion Laryngeal Vestibule Closure at Height of Swallow: Incomplete; narrow column of air/contrast in laryngeal vestibule Pharyngeal Stripping Wave: Present - complete Pharyngoesophageal Segment Opening: Complete distension and complete duration; no obstruction of flow Tongue Base Retraction: Narrow column of contrast between tongue base & post. pharyngeal wall Pharyngeal Residue: Trace residue within or on pharyngeal structures Esophageal Phase Esophageal Clearance: Complete clearance Diagnosis/Impression Diagnosis: Mild Oropharyngeal Dysphagia (R13.12) Impression: The oral phase is primarily marked by... -Decreased bolus control with >1/2 of the bolus spilling posteriorly to the pyriforms prior to swallow onset observed with thin liquids and cookie trial especially. -Slowed tongue motion for A-P transport. -Mild oral residue after the swallow. The pharyngeal phase is primarily marked by... -Mildly decreased airway closure during the swallow due to mildly decreased anterior hyoid excursion, and decreased epiglottic inversion. -Mildly decreased tongue base retraction, resulting in trace pharyngeal residues after the swallow. -Penetration of thin liquids by tsp which reliably cleared after independent use of throat clear and re-swallow. Trace penetration of thin liquid via cup and penetration of thin liquid via sequential straw sips which reliably ejected. -No aspiration observed during the study. The esophageal phase is grossly within normal limits with... -No retention or retrograde flow observed during the study. Recommendations Diet: Regular Textures and Thin Liquids Compensatory Strategies: Small Bites, Small Sips, No Straws, Slow Rate and Sitting upright Recommend Repeat Modified Barium Swallow: No Need for Skilled Speech Therapy Services: No Comment: No dysphagia therapy warranted at this time. Will recommend patient for repeat MBSS in the future if worsening or additional concerns arise. Educated patient on current recommendations, patient receptive and agreeable to recommendations. Education Completed: 1. Described result of evaluation., 2. Pt understands evaluation & agrees with goals and treatment plan. and 5. Patient demonstrates recommended strategies. Status Active ST Patient: Active Contact Information [facility] Speech Therapy:: Albino Botello M.A. CF-PIPELINE OPERATOR Speech-Language Pathologist [facility] [address] [place] [address]
--- NOTE | 2023-05-21 08:45 | RAD_ITS ---
STUDY: X-RAY - ESOPHAGUS (BARIUM SWALLOW) WITH FLUOROSCOPY REASON FOR EXAM: Female, 77 years old. Dysphagia TECHNIQUE: 18 view(s) of the esophagus were obtained following swallowing of barium. FLUOROSCOPY TIME (if supplied): (30 seconds) minutes/seconds. 11.12 mGy COMPARISON: None. FINDINGS: There is no demonstrated esophageal foreign body. There is no demonstrated stricture or mucosal abnormality. There is a small hiatal hernia of the fundus of the stomach. No evidence of gastroesophageal reflux. The patient ingested a 12 mm tablet of barium without any difficulty. There is atherosclerotic tortuosity of the aortic arch and descending thoracic aorta. Normal visualized pulmonary parenchyma. There are diffuse degenerative changes of the visualized thoracic spine. RAD/Esophagus Dual Contrast IMPRESSION: Small sliding hiatal hernia without gastroesophageal reflux. Electronically Signed: Yousif Hathaway MD at 9:26 EDT ,
== END | disposition home or self-care (01) ==
LOC: RAD 08:43
PROVIDERS: PCP Internal Medicine; Referring Provider Internal Medicine; Visit Provider Internal Medicine
DX: R13.10 Dysphagia, unspecified (principal)
CPT/HCPCS: 74221; 92611

== ENCOUNTER → 2023-05-24 | Outpatient (CLI) | payer MEDICARE, BC, SELFPAY ==
--- NOTE | 2023-05-24 12:19 | US_ITS ---
INDICATION: KIDNEY STONES EXAMINATION: Ultrasound US Kidney(s) complete (eg, kidneys and bladder) TECHNIQUE: Lorenzo scale and color doppler images were obtained of the kidneys. COMPARISON: CT abdomen and pelvis November 12, 2016 FINDINGS: RIGHT KIDNEY: Kidney size 10.4 x 4.6 x 4.2 cm. Cortical thickness is 1.9 cm. There is mild to moderate of the renal pelvis, with only slight to mild distention of the more peripheral collecting system. No shadowing calculus, focal lesion or perinephric collection is demonstrated. LEFT KIDNEY: Kidney size 11.7 x 4.9 x 6.6 cm. Cortical thickness is 1.9 cm. There is no hydronephrosis. 2 echogenic foci without posterior acoustic shadowing are measured by the technologist within the mid to lower pole sinus fat. One of these is 8 x 7 x 4 mm and the second is 5 x 3 x 3 mm. URINARY BLADDER: No acute abnormality. At the time of scanning, the bladder size was 5.73 x 3.70 x 5.26 cm, corresponding to a volume of 58.4 mL. US/Kidney and Bladder IMPRESSION: 1. Question of 2 small nonocclusive stones in the mid to lower pole of the left kidney. These were not evident on the CT earlier this year and may simply reflect sites of artifact. There is no left hydronephrosis. 2. Stable mild ectasia of the right renal pelvis, but no significant calyceal dilatation. 3. Incompletely distended, but otherwise unremarkable urinary bladder Electronically Signed: Loc Salazar MD at 13:32 EDT Reading Location ID and State: [id number] / Unknown , Service support ,
== END | disposition home or self-care (01) ==
LOC: US 12:18
PROVIDERS: PCP Internal Medicine; Referring Provider Urology; Visit Provider Urology
DX: R39.16 Straining to void (principal); N20.0 Calculus of kidney
CPT/HCPCS: 76770

== ENCOUNTER 2023-05-28 10:30 | Outpatient (RCR) | payer MEDICARE, BC, SELFPAY ==
--- NOTE | 2023-04-15 13:07 | HP.PTEVAL ---
Patient's Visit Information ELSIE BRIGGS is a 77 year old F referred to Physical Therapy by Dr. Jessica Tanner, with a diagnosis of LBP WITH RADICULOPATHY LEFT LEG. Date of Evaluation: 04/15/23 Physical Therapist: Juan Montero, PT, Cert MDT, OCS - Visit Plan Frequency: 2x /Week Duration: 4 Weeks Plan: PT INTERVETIONS LUMBAR FLEXION EX'S ,DLS ABD/BACK ,POSTURAL EX'S AND MODALTIES PRN - Subjective This 77 y/o female presents to physical therapy with LPB with radiculopathy left leg. Patient has had lumbar radiculopathy for ~ 4 years which has progressively worse . Seen Ciro recommended PT. Patient has seen pain management DR Zuñiga with multiple epidural injections last injection last year. Patient had x-rays showed DDD/stenosis. Pain located lumbar affecting left lateral leg occasional to foot. Aggravating factors walking/standing ,lifting. Alleviating factors with sitting and rest. Medication gabapentin. Seen DR Zuñiga plan for another injection. Coughing/sneezing-. Bowel/bladder-. Occasional paresthesia in foot ache .As day goes on symptoms become worse. Patient symptoms affects sleeping. Patient symptoms affects QOL and function. Patient has had bilateral TKR ,left TSR reverse , left ankle ORIF left. Patient goal to have less pain. SOCIAL: . VOCATION: retired - Pain Bilateral Back Pain Intensity (Out of 10): 3 Pain Intensity Range: 10 - Objective POSTURE: mild forward posture. GAIT: reciprocal pattern. SYMMTRIES: align. PALAPTION: unremarkable. NEURO: denies paresthesia/tingling ,occasionally in left foot , reflexes L3-4,L4-5,L5-S1 1/3. MMT: quads/hams 4/5,hip flexion 4/5 ,ankle 5/5. FLEXABLITY: hamstrings WFL. LUMBAR ROM: flexion WFL ,extension mod loss ,side glides min/mod loss. - Special Tests L/S Slump test left side: Negative L/S Slump test right side: Negative L/S Left Straight Leg Raise: Negative L/S Right Straight Leg Raise: Negative Lumbar Standing: Flexion - Mechanical Response: No effect Lumbar Standing: Flexion - Symptoms During Testing: Decreases Lumbar Standing: Flexion - Symptoms After Testing: Better Lumbar Standing: Extension - Mechanical Response: No effect Lumbar Standing: Extension - Symptoms During Testing: Increases Lumbar Standing: Extension - Symptoms After Testing: No worse Lumbar Standing: Right Side Glides - Mechanical Response: No effect Lumbar Standing: Right Side [place] - Symptoms During Testing: No effect Lumbar Standing: Right Side [place] - Symptoms After Testing: No effect Lumbar Standing: Left Side [place] - Mechanical Response: No effect Lumbar Standing: Left Side [place] - Symptoms During Testing: No effect Lumbar Standing: Left Side [place] - Symptoms After Testing: No effect Lumbar Lying: Flexion - Mechanical Response: No effect Lumbar Lying: Flexion - Symptoms During Testing: Decreases Lumbar Lying: Flexion - Symptoms After Testing: Better - Balance/Special Test Scores Oswestry Low Back Score: 20 - Goals Goal 1:: I with HEP for lumbar Goal Time Frame: 4-6 Weeks Goal 2:: Patient to demonstrate 50% improvement with less pain and improved function Goal Time Frame: 4-6 Weeks Goal 3:: Patient improve lumbar ROM for function of recovery to put on shoes and walk Goal Time Frame: 4-6 Weeks Goal 4:: Patient able to walk /stand extended distance with min symptoms > 10mins. Goal Time Frame: 4-6 Weeks Goal 5:: Patient to improve back oswestry score by 5 points to improve QOL Goal Time Frame: 4-6 Weeks - Rehabilitation Potential Physical Therapy Diagnosis: This patient has left lumbar radiculopathy with possible foraminal stenosis with pain with walking and standing affects AF\DL's and housework tasks thus benefit from skilled PT Rehabilitation Potential: Good - Anticipated Interventions Patient/Client Instruction: Educate patient on: Condition, Plan of Care For the Purpose of:: To decrease pain, To increase ROM, To improve muscle performance and motor function, To improve ability to perform ADL's, To increase tolerance to activity/condition/position, To improve ability of physical actions for home/community/work/leisure, To decrease soft tissue restriction, To increase flexibility/ROM, To improve endurance, To improve safety Therapeutic Exercise to Include: Strength training, Body mechanics, Postural training, Flexibilty training, Dynamic Lumbar Stabilization For the Purpose of:: To decrease pain, To increase ROM, To increase tolerance to activity/condition/position, To improve ability of physical actions for home/community/work/leisure, To improve gait and locomotor functions, To improve health of tissue, To decrease soft tissue restriction, To increase flexibility/ROM TENS: Yes IF ES: Yes Cryotherapy (ice pack, ice massage): Yes Thermo therapy (hot pack): Yes For the Purpose of:: To decrease pain, To decrease swelling/inflammation, To improve health of tissue, To decrease soft tissue restriction Thank you for the opportunity to evaluate your patient. For Medicare and Medicare HMO plans, please review the plan of care and approve it. It will need to be FAXED BACK to us at [phone] for Medicare purposes. For Medicare only, by signing this I certify the plan of care. Please let me know if there are questions or concerns regarding this plan of care. Physician Signature: Date:
--- NOTE | 2023-05-28 10:52 | HP.PTDCSUM ---
Discharge Summary D/C summary: It has been my pleasure to treat ELSIE BRIGGS referred by Dr. Jessica Tanner DO, with the diagnosis of LBP WITH RADICULOPATHY LEFT LEG for a total of 9 visit(s). Discharge Date: 05/28/23 Please see the following information for a summary of their discharge status. Subjective Subjective: Doing well ..ready for d/c Injection epidural injection DR Zuñiga Pain Bilateral Back: Pain Intensity (Out of 10): 0 Overall Improvement % Improvement: 90 Objective Objective/Function: POSTURE: mild forward posture. GAIT: reciprocal pattern. SYMMTRIES: align. PALAPTION: unremarkable. NEURO: denies paresthesia/tingling ,occasionally in left foot , reflexes L3-4,L4-5,L5-S1 1/3. MMT: quads/hams 4/5,hip flexion 4/5 ,ankle 5/5. FLEXABLITY: hamstrings WFL. LUMBAR ROM: flexion WFL ,extension min loss ,side glides min loss. Goals Goal 1:: I with HEP for lumbar Goal Progress: Goal Met Goal 2:: Patient to demonstrate 50% improvement with less pain and improved function Goal Progress: Goal Met Goal 3:: Patient improve lumbar ROM for function of recovery to put on shoes and walk Goal Progress: Goal Met Goal 4:: Patient able to walk /stand extended distance with min symptoms > 10mins. Goal Progress: Goal Met Goal 5:: Patient to improve back oswestry score by 5 points to improve QOL Goal Progress: Goal Met Plan Plan: D/C D/C Information Discharge Comments: HEP d/c sentence: If there are questions or concerns regarding this patient's physical therapy, please feel free to call me at [phone]. Thank you for the referral of this patient. Sincerely, Juan Montero, PT, Cert MDT, OCS Balance/Gait/Functional tests Balance/Special Test Scores Oswestry Low Back Score: 4
== END 2023-05-28 19:00 | disposition home or self-care (01) ==
LOC: PT 10:30
PROVIDERS: PCP Internal Medicine; Referring Provider Internal Medicine; Visit Provider Internal Medicine
DX: M54.50 Low back pain, unspecified (principal); M54.10 Radiculopathy, site unspecified
CPT/HCPCS: 97110; 97162; 97530

== ENCOUNTER → 2023-11-17 | Outpatient (CLI) | payer MEDICARE, SELFPAY ==
[2023-11-17 12:43] LABS: Absolute Lymphocyte Count 1.11 X10^3/uL (0.83-4.51); Absolute Neutrophil Count 6.6 X10^3/uL (2.0-7.7); Basophil# 0.02 X10^3/uL; Basophil% 0.2 % (0-1); Eosinophil# 0.09 X10^3/uL; Hematocrit 31.3 % (37-47); Hemoglobin 9.8 g/dL (12.0-15.0); Lymphocyte # 1.11 X10^3/ul (0.83-4.51); Lymphocyte % 12.8 % (19-41); Mean Corp Hgb Conc 31.3 g/dL (32-36); Mean Corpuscular Hgb 27.5 pg (27.0-32.0); Mean Corpuscular Volume 87.7 fL (81-99); Mean Platelet Vol. 9.6 fl (6.2-12.0); Monocyte# 0.83 X10^3/uL; Monocyte% 9.6 % (0-10); NRBC Flagged by Analyzer 0 % (0-5); Neutrophil % 75.9 % (47-70); Platelet Count 360 K/mm3 (150-450); RBC Distribution Width CV 13.7 % (11.6-14.6); RBC Distribution Width SD 43.9 fl (35.1-43.9); Red Blood Count 3.57 M/mm3 (4.2-5.4); White Blood Count 8.7 K/mm3 (4.4-11.0)
[2023-11-17 13:13] LABS: Ferritin 428 ng/mL (8-252); Iron 17 ug/dL (50-170); Iron Binding Capacity,Total 185 ug/dL (250-450); LDH 151 U/L (84-246)
[2023-11-18 16:09] LABS: Alpha-1-Globulins 0.4 g/dL (0.0-0.4); Alpha-2-Globulins 0.8 g/dL (0.4-1.0); Endomysial Antibody IgA Negative (Negative); Haptoglobin 349 mg/dL (42-346); Immunoglobulin A 268 mg/dL (64-422); Immunoglobulin G 1082 mg/dL (586-1602); Immunoglobulin M 146 mg/dL (26-217); PROEL- TOTAL PROTEIN 6.2 g/dL (6.0-8.5); t-Transglutaminase IgA <2 U/mL (0-3)
== END | disposition home or self-care (01) ==
LOC: LAB 11:41
PROVIDERS: PCP Internal Medicine; Referring Provider Internal Medicine Gastroenterology; Visit Provider Internal Medicine Gastroenterology
DX: D50.9 Iron deficiency anemia, unspecified (principal); N18.30 Chronic kidney disease, stage 3 unspecified; D63.1 Anemia in chronic kidney disease
CPT/HCPCS: 36415; 82728; 82784; 83010; 83516; 83540; 83550; 83615; 84165; 85025; 85045; 86255; 86334

== ENCOUNTER → 2023-11-30 | Outpatient (CLI) | payer MEDICARE, SELFPAY ==
[2023-11-30 15:44] LABS: Absolute Lymphocyte Count 0.65 X10^3/uL (0.83-4.51); Absolute Neutrophil Count 20.1 X10^3/uL (2.0-7.7); Basophil# 0.02 X10^3/uL; Basophil% 0.1 % (0-1); Hematocrit 31.8 % (37-47); Hemoglobin 9.9 g/dL (12.0-15.0); Lymphocyte # 0.65 X10^3/ul (0.83-4.51); Mean Corp Hgb Conc 31.1 g/dL (32-36); Mean Corpuscular Hgb 27.5 pg (27.0-32.0); Mean Corpuscular Volume 88.3 fL (81-99); Mean Platelet Vol. 9.6 fl (6.2-12.0); Monocyte# 0.79 X10^3/uL; Monocyte% 3.6 % (0-10); NRBC Flagged by Analyzer 0 % (0-5); Neutrophil # 20.14 X10^3/uL (2.7-7.7); Neutrophil % 92.6 % (47-70); POSITIVE DIFFERENTIAL YES; Platelet Count 452 K/mm3 (150-450); RBC Distribution Width CV 14.6 % (11.6-14.6); RBC Distribution Width SD 46.6 fl (35.1-43.9); White Blood Count 21.8 K/mm3 (4.4-11.0)
[2023-11-30 15:47] LABS: Differential Indicated SCAN CRITERIA MET
[2023-11-30 16:21] LABS: ALB/GLOB Ratio 0.8 RATIO (0.9-2.4); AST(SGOT) 18 U/L (15-37); Alanine Aminotransfer ALT/SGPT 24 U/L (13-56); Albumin, Serum 3.1 g/dL (3.2-5.0); Alkaline Phosphatase 117 U/L (45-117); Anion Gap 5 (5-15); BUN 15 mg/dL (7-18); BUN/Creat Ratio 14.2 RATIO (10-20); Calcium,Total 9.2 mg/dL (8.5-10.1); Chloride 99 mmol/L (98-107); Creatinine, Serum 1.06 mg/dL (0.55-1.02); EST Glomerular Filtration Rate 53 mL/min (>60); Est Glom Filt Rate - Afr Amer 65 mL/min (>60); Globulin 3.7 g/dL (2.2-4.2); Glucose 102 mg/dL (74-106); Potassium 4.7 mmol/L (3.5-5.1); Protein, Total 6.8 g/dL (6.4-8.2); Sodium Level 135 mmol/L (136-145)
[2023-11-30 16:38] LABS: Platelet Estimate SLT INC (ADEQ)
[2023-11-30 16:39] LABS: Anisocytosis RARE; Hypochromasia RARE; Macrocytosis RARE; Red Cell Morphology N CHROM NORMAL (NORM C&C)
== END | disposition home or self-care (01) ==
PROVIDERS: PCP Internal Medicine; Referring Provider Nurse Practitioner Family; Visit Provider Nurse Practitioner Family
DX: R05.8 Other specified cough (principal)
CPT/HCPCS: 80053; 85025

== ENCOUNTER → 2023-12-14 | Outpatient (CLI) | payer MEDICARE, SELFPAY ==
--- NOTE | 2023-12-14 07:14 | US_ITS ---
STUDY: ABDOMINAL ULTRASOUND - RIGHT UPPER QUADRANT; ELASTOGRAPHY REASON FOR VISIT: Female, 78 years old. Elevated liver function tests. TECHNIQUE: Ultrasound evaluation of the right upper quadrant was performed with real-time and static garces-scale imaging. Point quantification shear wave elastography was performed ([employer]). TECHNICAL QUALITY: Adequate. COMPARISON: Comparison is made with prior study June 12, 2022. FINDINGS: Liver: The liver is mildly enlarged and measures 18.6 cm. There is normal echogenicity of the liver. The bile ducts are within normal limits. There is hepatic color flow. The direction of portal flow is hepatopetal. There is a 1.9 cm x 2.7 cm x 1.7 cm cyst in the left lobe of the liver. Median liver stiffness measured 7.2 kPa. Gallbladder: Normal distended gallbladder. The gallbladder wall measures 3 mm. There is a negative sonographic Cortez''s sign. There is no pericholecystic fluid. There are no gallstones. 2 small polyps are seen in the wall of the gallbladder. The larger polyp measures 6 mm x 8 mm x 7 mm. Common Bile Duct (C.B.D.): The common bile duct measures 5 mm. Pancreas: There is normal echogenicity of the visualized pancreas. There is no demonstrated pancreatic mass or cyst. Right Kidney: Normal size of the right kidney. The right kidney measures 11.5 cm x 6.6 cm x 7.6 cm. Normal renal cortex. The right cortex measures 1.3 cm. Multiple renal cysts are seen. The largest cyst measures 2.6 cm by 2 cm x 2.2 cm. There is no right hydronephrosis. US/ABD Limited w/ Elastography IMPRESSION: 1. Liver stiffness measures 7.2 kPa compatible with F2-F3 (Mild to moderate liver fibrosis) Metavir score. Electronically Signed: Yousif Hathaway MD at 13:18 EST ,
[2023-12-14 08:51] LABS: Absolute Lymphocyte Count 0.45 X10^3/uL (0.83-4.51); Absolute Neutrophil Count 14.4 X10^3/uL (2.0-7.7); Basophil# 0.04 X10^3/uL; Basophil% 0.3 % (0-1); Eosinophil# 0.03 X10^3/uL; Eosinophils% 0.2 % (0-5); Hematocrit 24.8 % (37-47); Hemoglobin 7.7 g/dL (12.0-15.0); Lymphocyte # 0.45 X10^3/ul (0.83-4.51); Lymphocyte % 2.8 % (19-41); Mean Corpuscular Hgb 26.8 pg (27.0-32.0); Mean Corpuscular Volume 86.4 fL (81-99); Mean Platelet Vol. 9.7 fl (6.2-12.0); Monocyte# 0.83 X10^3/uL; Monocyte% 5.2 % (0-10); NRBC Flagged by Analyzer 0 % (0-5); Neutrophil # 14.35 X10^3/uL (2.7-7.7); Neutrophil % 90.7 % (47-70); POSITIVE DIFFERENTIAL YES; Platelet Count 419 K/mm3 (150-450); RBC Distribution Width CV 15.1 % (11.6-14.6); RBC Distribution Width SD 47.7 fl (35.1-43.9); Red Blood Count 2.87 M/mm3 (4.2-5.4); White Blood Count 15.8 K/mm3 (4.4-11.0)
[2023-12-14 10:13] LABS: AST(SGOT) 44 U/L (15-37); Alanine Aminotransfer ALT/SGPT 70 U/L (13-56); Albumin, Serum 2.2 g/dL (3.2-5.0); Alkaline Phosphatase 552 U/L (45-117); Anion Gap 9 (5-15); BUN 12 mg/dL (7-18); Bilirubin, Direct 0.55 mg/dL (0.00-0.30); Calcium,Total 9.2 mg/dL (8.5-10.1); Chloride 102 mmol/L (98-107); EST Glomerular Filtration Rate 57 mL/min (>60); Est Glom Filt Rate - Afr Amer 69 mL/min (>60); Globulin 4.7 g/dL (2.2-4.2); Glucose 103 mg/dL (74-106); LDH 180 U/L (84-246); Potassium 4.2 mmol/L (3.5-5.1); Protein, Total 6.9 g/dL (6.4-8.2); Sodium Level 136 mmol/L (136-145)
== END | disposition home or self-care (01) ==
LOC: US 07:13
PROVIDERS: PCP Internal Medicine; Referring Provider Nurse Practitioner Family; Visit Provider Nurse Practitioner Family
DX: D72.829 Elevated white blood cell count, unspecified (principal); R94.5 Abnormal results of liver function studies
CPT/HCPCS: 36415; 76705; 76981; 80048; 80076; 83615; 85025; 86140; 87040

== ENCOUNTER → 2023-12-17 | Outpatient (CLI) | payer MEDICARE, SELFPAY ==
[2023-12-17 15:27] LABS: Absolute Neutrophil Count 21.4 X10^3/uL (2.0-7.7); Basophil# 0.07 X10^3/uL; Basophil% 0.3 % (0-1); Eosinophil# 0.01 X10^3/uL; Hematocrit 23.5 % (37-47); Hemoglobin 7.2 g/dL (12.0-15.0); Lymphocyte % 4.1 % (19-41); Mean Corp Hgb Conc 30.6 g/dL (32-36); Mean Corpuscular Hgb 26.9 pg (27.0-32.0); Mean Corpuscular Volume 87.7 fL (81-99); Mean Platelet Vol. 9.6 fl (6.2-12.0); Monocyte# 1.44 X10^3/uL; Monocyte% 5.9 % (0-10); NRBC Flagged by Analyzer 0 % (0-5); Neutrophil % 88.5 % (47-70); POSITIVE DIFFERENTIAL YES; POSITIVE MORPHOLOGY YES; Platelet Count 566 K/mm3 (150-450); RBC Distribution Width CV 15.5 % (11.6-14.6); RBC Distribution Width SD 49.5 fl (35.1-43.9); Red Blood Count 2.68 M/mm3 (4.2-5.4); White Blood Count 24.2 K/mm3 (4.4-11.0)
[2023-12-17 15:37] LABS: Differential Indicated SCAN CRITERIA MET
[2023-12-17 16:13] LABS: Differential Comment SCANNED
[2023-12-17 16:15] LABS: AST(SGOT) 28 U/L (15-37); Alanine Aminotransfer ALT/SGPT 51 U/L (13-56); Albumin, Serum 2.3 g/dL (3.2-5.0); Alkaline Phosphatase 487 U/L (45-117); Anion Gap 10 (5-15); BUN 14 mg/dL (7-18); BUN/Creat Ratio 13.2 RATIO (10-20); Bilirubin, Direct 0.27 mg/dL (0.00-0.30); Calcium,Total 8.9 mg/dL (8.5-10.1); Chloride 98 mmol/L (98-107); Creatinine, Serum 1.06 mg/dL (0.55-1.02); EST Glomerular Filtration Rate 53 mL/min (>60); Est Glom Filt Rate - Afr Amer 64 mL/min (>60); Globulin 3.5 g/dL (2.2-4.2); Glucose 90 mg/dL (74-106); LDH 165 U/L (84-246); Potassium 4.2 mmol/L (3.5-5.1); Protein, Total 5.8 g/dL (6.4-8.2); Sodium Level 135 mmol/L (136-145)
== END | disposition home or self-care (01) ==
LOC: MTLAB 13:33
PROVIDERS: PCP Internal Medicine; Referring Provider Nurse Practitioner Family; Visit Provider Nurse Practitioner Family
DX: D72.829 Elevated white blood cell count, unspecified (principal); R94.5 Abnormal results of liver function studies
CPT/HCPCS: 36415; 80048; 80076; 83615; 85025; 86140; 87040

== ENCOUNTER → 2023-12-21 | Outpatient (CLI) | payer MEDICARE, SELFPAY ==
--- NOTE | 2023-12-21 14:30 | CT_ITS ---
STUDY: CT ABDOMEN AND PELVIS WITH CONTRAST REASON FOR EXAM: Female, 78 years old. Elevated liver enzymes and right upper quadrant pain. History of breast cancer. Prior bilateral mastectomy. RADIATION DOSAGE (If Supplied By Facility): CTDIvol = ( 14 ) mGy, DLP = ( 774.94 ) mGycm TECHNIQUE: Transaxial images were obtained from the dome of the diaphragm to the symphysis pubis without oral contrast. was administered. Sagittal and coronal images were reconstructed. Individualized dose optimization techniques were used for this CT. COMPARISON: Comparison is made with prior study dated May 12, 2017. FINDINGS: Bilateral breast prostheses are seen. Minimal bilateral pleural effusions right slightly greater than left with bibasilar atelectasis. Small pericardial effusion. There is decreased attenuation of the liver consistent with steatosis. Stable cysts in the right kidney. Normal gallbladder and extrahepatic biliary system. Normal spleen. Normal pancreas. Normal bilateral adrenal glands. Since prior study, there is diffuse enlargement of the right kidney with multiple cystic masses. There are 3 tiny calculi in the proximal right ureter. Mild hydronephrosis and hydroureter on the right side down to the urinary bladder. Normal left kidney. Moderate-sized hiatal hernia. Normal small intestine. Moderate amount of material is seen in the colon. The appendix is visualized and appears normal. Normal abdominal aorta. Normal inferior vena cava. Normal retroperitoneum. Normal urinary bladder. Normal abdominal wall. There are diffuse degenerative changes of the visualized lumbar spine. CT/Abdomen/Pelvis W IV Cont ONLY IMPRESSION: Diffuse enlargement of the right kidney with multiple cystic masses and 3 tiny calculi in the proximal portion of the right ureter with right hydronephrosis and right hydroureter down to the insertion into the urinary bladder on the right side. Small bilateral effusions right greater than left with bibasilar atelectasis. Small pericardial effusion. Electronically Signed: Yousif Hathaway MD at 15:25 EST ,
== END | disposition home or self-care (01) ==
LOC: CT 14:27
PROVIDERS: PCP Internal Medicine; Referring Provider Internal Medicine Hematology & Oncology; Visit Provider Internal Medicine Hematology & Oncology
DX: N28.81 Hypertrophy of kidney (principal); N28.89 Other specified disorders of kidney and ureter; N13.2 Hydronephrosis with renal and ureteral calculous obstruction; I31.39 Other pericardial effusion (noninflammatory); J98.11 Atelectasis
CPT/HCPCS: 74177; Q9967

== ENCOUNTER 2023-12-22 10:53 | Inpatient (IN) | payer MEDICARE, SELFPAY ==
[2023-12-22] VITALS (16 sets, daily range): BP systolic 95–149; BP diastolic 52–68; PULSE 80–94; RESP 16–18; TEMP 36.3–37.4; O2SAT 89–99; BMI 28.3; BMI 28.8
--- NOTE | 2023-12-22 11:20 | EX.ED.DYSGE1 ---
HPI History of Present Illness Chief Complaint: Abn Labs Informant: patient Narrative Narrative: Patient sent in by Dr. Gastelum for admission. Patient developed anemia after having COVID in late October. She states that she has continued to have foggy thinking, off balance, tremors, right sided abdominal pain. She has seen multiple physicians including hematology and GI. Patient has had continued elevated white count with elevated CRP. She had a CT scan performed yesterday that revealed diffuse enlargement of the right kidney with multiple cystic masses and 3 tiny calculi in the proximal portion of the right ureter. Family states they called Dr. Hernandez's office and was to be seen tomorrow morning, but Dr. Gastelum called and asked him to come to the emergency room for admission, MRI, and further evaluation. Patient denies having fever. [facility] Medical History (Updated 12/22/23 @ 13:[address] Blanca Bowen, DO) Anemia of chronic renal failure, stage 3 (moderate) Asthma Bronchitis Chronic renal failure DVT (deep venous thrombosis) Hiatal hernia Hx of Clostridium difficile infection HX: breast cancer Iron deficiency anemia Low back pain Other hyperlipidemia Pulmonary emboli RLS (restless legs syndrome) Home Medications Cinnamon 2 capsule PO BID 10/29/18 [History Last Taken Unknown] citalopram 20 mg tablet 20 mg PO DAILY 10/29/18 [History Last Taken Unknown] lovastatin 20 mg tablet 20 mg PO DAILY 10/29/18 [History Last Taken Unknown] diphenhydramine 25 mg-acetaminophen 500 mg tablet (Tylenol PM Extra Strength) 1 tab PO QHS insomnia 06/10/22 [History Last Taken Unknown] bupropion HCl 150 mg 24 hr tablet, extended release 150 mg PO BID 09/23/23 [History Last Taken Unknown] calcium carbonate 600 mg calcium (1,500 mg) tablet 600 mg PO BID 09/23/23 [History Last Taken Unknown] fluticasone furoate 200 mcg/actuation blister powder for inhalation (Arnuity Ellipta) 1 inh inhalation DAILY 09/23/23 [History Last Taken Unknown] gabapentin 100 mg capsule 200 mg PO BID 09/23/23 [History Last Taken Unknown] losartan 25 mg tablet 12.5 mg PO DAILY 09/23/23 [History Last Taken Unknown] montelukast 10 mg tablet (Singulair) 10 mg PO DAILY 09/23/23 [History Last Taken Unknown] omeprazole 20 mg capsule,delayed release 20 mg PO DAILY 09/23/23 [History Last Taken Unknown] omeprazole 40 mg capsule,delayed release 40 mg PO DAILY 09/23/23 [History Last Taken Unknown] vitamin E mixed 400 unit capsule 400 unit PO DAILY 09/23/23 [History Last Taken Unknown] albuterol sulfate 0.63 mg/3 mL solution for nebulization 0.63 mg inhalation TID 12/20/23 [History Last Taken Unknown] Allergy/AdvReac Type Severity Reaction Status Date / Time pneumococcal vaccine AdvReac Mild Swelling Verified 12/22/23 10:55 adhesive AdvReac Rash Verified 12/22/23 10:55 adhesive tape AdvReac Rash Verified 12/22/23 10:55 Family History Father Hypertension Mother Diabetes Cancer leukemia Grandmother Cancer bladder, mouth CA Brother Depression Sister Pacemaker Daughter Lyme disease Fibromyalgia Ovarian cancer Surgical History H/O bilateral mastectomy H/O blepharoplasty h/o left reverse total shoulder History of ankle surgery History of knee replacement Hx of cataract removal with insertion of prosthetic lens Hx of colonoscopy Social History household members: spouse number of children: 2 Smoking Status: Never smoker alcohol intake: current alcohol intake frequency: holidays/special occasions only Alcohol type: wine substance use type: does not use caffeine: Yes Type: coffee Number of servings: 1 and tea ROS ROS ED Constitutional Constitutional ED: Denies chills or fever(s) Eyes Eyes: Denies discharge from eye(s) ENT ENT ED: Denies discharge from eye(s), rhinorrhea or sore throat Cardiovascular Cardiovascular: Denies chest pain or palpitations Respiratory/Chest Respiratory/Chest: Denies cough or dyspnea Gastrointestinal Gastrointestinal: Reports abdominal pain; Denies diarrhea, nausea or vomiting Genitourinary Genitourinary ED: Denies dysuria Musculoskeletal Musculoskeletal: Reports back pain; Denies extremity pain Integumentary Denies Abrasions or rash Neurologic Neurologic: Reports weakness; Denies headache(s) Psychiatric Psychiatric: Denies anxiety or depression Allergic/Immunologic Allergic/Immunologic ED: Denies lip swelling or urticaria EXAM Physical Exam Const Vital Signs: 12/22/23 10:54 12/22/23 10:53 12/22/23 12:49 Temperature 97.4 F L Temperature Source Temporal Pulse Rate 94 86 Respiratory Rate 16 18 Respiratory Effort Normal Respiratory Pattern Normal Blood Pressure 95/68 113/59 L Blood Pressure Mean 77 77 Pulse Ox 99 96 Oxygen Delivery Method Room Air Room Air Positive well nourished and well developed General Appearance ED: well developed HEENT Reports moist mucous membranes Eyes EOMs intact bilaterally Chest Wall inspection of chest normal and palpation of chest normal Resp normal respiratory effort and clear to auscultation bilaterally Cardio regular rate and regular rhythm GI GI Narrative: Abdomen soft with mild tenderness in the right upper quadrant. Mild abdominal distension. Extremity normal to inspection Neuro oriented x3 and no sensory deficits noted Motor Exam: strength 5/5 throughout Psych mental status grossly normal Skin no rashes or lesions noted MDM MDM MDM Narrative Medical decision making narrative: Patient's previous workups reviewed. IV line initiated. Labwork obtained to evaluate for leukocytosis, anemia, and electrolyte derangement. Urinalysis obtained to evaluate for infection/hematuria. History & Record Review Discussion w/independent historian: Patient and Significant other Additional record(s) reviewed:: Prior outpatient record and Prior labs Lab Data Attestation: I reviewed the patient's lab results. Labs: Laboratory Results - last 24 hr 12/22/23 11:45 WBC 34.6 H* RBC 3.13 L Hgb 8.3 L Hct 26.6 L MCV 85.0 MCH 26.5 L MCHC 31.2 L RDW Std Deviation 49.2 H RDW Coeff of Jovi 15.9 H Plt Count 589 H MPV 9.2 Immature Gran % (Auto) 1.500 H Neut % (Auto) 90.5 H Lymph % (Auto) 3.5 L [place] % (Auto) 4.2 Eos % (Auto) 0.0 Baso % (Auto) 0.3 Absolute Neuts (auto) 31.3 H Absolute Lymphs (auto) 1.21 Nucleated RBC % 0 Diff Path Review May foll ESR 70 H Sodium 135 L Potassium 4.6 Chloride 100 Carbon Dioxide 27.0 Anion Gap 8 BUN 17 Creatinine 0.97 Estim Creat Clear Calc 46.00 Est GFR (MDRD) Af Amer 72 Est GFR (MDRD) Non-Af 59 L BUN/Creatinine Ratio 17.5 Glucose 110 H Lactic Acid 1.2 Calcium 9.5 Total Bilirubin 0.70 Direct Bilirubin 0.46 H AST 36 ALT 97 H Alkaline Phosphatase 499 H C-React Prot Ext Range 275.00 H Total Protein 6.2 L Albumin 2.0 L Globulin 4.2 Lipase 17 Urine Color Lisette Urine Clarity Turbid Urine pH 5.0 Ur Specific [place] 1.020 Urine Protein 100 H Urine Glucose (UA) Normal Urine Ketones 5 H Urine Occult Blood 250 H Urine Nitrite Negative Urine Bilirubin Negative Urine Urobilinogen 1 H Ur Leukocyte Esterase 500 H Urine RBC 25-50 SEEN Urine WBC >100 SEEN Ur Squamous Epith Cells 0 SEEN Urine Bacteria 4+ Urine Mucus 0 SEEN Treatment and Re-Evaluation :: CBC today reveals a white count of 34.6 with 90% neutrophils. White count has been in the 20s for the last 3 weeks. Chemistry studies reveal normal renal function with a BUN of 17 and a creatinine of 0.97. Sed rate is elevated at 70 and CRP is 275. CRPs have been recently trended and been in the 200 range. LFTs are abnormal with an alk phos of 499, ALT of 97. These, again, have been trended recently with similar values. Lactic acid is normal at 1.2. Urinalysis today reveals 25-50 red cells, greater than 100 white cells, 4+ bacteria. Her urine revealed no bacteria 2 days ago. Patient has been given IV fluids and IV Rocephin. Urine culture is sent. Given her findings on yesterday's CT with enlargement of the right kidney with multiple cystic masses and 3 calculi in the proximal portion of the right ureter with right hydronephrosis and hydroureter, I will speak with Dr. Hernandez as well as hospitalist. Dr. Hernandez did review her findings as well as CT. He will plan to take her to the OR today for stent placement. Hospitalist has presented to the emergency room to see the patient as well. She did request that I order a CT scan of the left shoulder with IV contrast as the patient does report having shoulder pain the last several days with history of shoulder replacement. Discharge Plan Triage Chief Complaint: Abn Labs ED Provider: Brooke Chambers Dx/Rx/DC Orders Primary Care Provider: Jessica Tanner
[2023-12-22] MEDS: 0.9% Normal Saline (500mL Bag) 500 ML 1000 ML IV (11:30)
[2023-12-22 11:56] LABS: Mucous, Urine 0 SEEN /hpf (<or=2+); Squamous Epithelial Cells - UA 0 SEEN /hpf (5-10)
[2023-12-22 12:07] LABS: Color, Urine Amber (Yellow); Glucose, Dipstick Normal (Normal); Ketone-Dipstick 5 mg/dl (Negative); Leukocyte Esterase-Dipstick 500 /ul (Negative); Nitrite-Dipstick Negative (Negative); Occult Blood-Urine 250 /ul (Negative); Protein-Dipstick 100 mg/dl (Negative); Urine Bilirubin Dipstick Negative (Negative); Urine Clarity Turbid (Clear); Urine Urobilinogen 1 mg/dl (Normal)
[2023-12-22] MEDS: 0.9% Normal Saline (1000mL) 1,000 ML 150 ML IV ×2 (12:11→18:43)
[2023-12-22 12:21] LABS: Bacteria 4+ /hpf (None Seen); Red Blood Cells-Urine 25-50 SEEN /hpf (0-5); White Blood Cells >100 SEEN /hpf (0-5)
[2023-12-22 12:24] LABS: Lactic Acid 1.2 mmol/L (0.4-1.9)
[2023-12-22 12:27] LABS: Erythrocyte Sedimentation Rate 70 mm/hr (0-30)
[2023-12-22 12:29] LABS: AST(SGOT) 36 U/L (15-37); Alanine Aminotransfer ALT/SGPT 97 U/L (13-56); Alkaline Phosphatase 499 U/L (45-117); Anion Gap 8 (5-15); BUN 17 mg/dL (7-18); BUN/Creat Ratio 17.5 RATIO (10-20); Bilirubin, Direct 0.46 mg/dL (0.00-0.30); Calcium,Total 9.5 mg/dL (8.5-10.1); Chloride 100 mmol/L (98-107); Creatinine, Serum 0.97 mg/dL (0.55-1.02); EST Glomerular Filtration Rate 59 mL/min (>60); Est Glom Filt Rate - Afr Amer 72 mL/min (>60); Globulin 4.2 g/dL (2.2-4.2); Glucose 110 mg/dL (74-106); Lipase 17 U/L (13-75); Potassium 4.6 mmol/L (3.5-5.1); Protein, Total 6.2 g/dL (6.4-8.2); Sodium Level 135 mmol/L (136-145)
[2023-12-22 12:34] LABS: Absolute Lymphocyte Count 1.21 X10^3/uL (0.83-4.51); Absolute Neutrophil Count 31.3 X10^3/uL (2.0-7.7); Basophil# 0.11 X10^3/uL; Basophil% 0.3 % (0-1); Eosinophil# 0.01 X10^3/uL; Hematocrit 26.6 % (37-47); Hemoglobin 8.3 g/dL (12.0-15.0); Lymphocyte # 1.21 X10^3/ul (0.83-4.51); Lymphocyte % 3.5 % (19-41); Mean Corp Hgb Conc 31.2 g/dL (32-36); Mean Corpuscular Hgb 26.5 pg (27.0-32.0); Mean Platelet Vol. 9.2 fl (6.2-12.0); Monocyte# 1.44 X10^3/uL; Monocyte% 4.2 % (0-10); NRBC Flagged by Analyzer 0 % (0-5); Neutrophil # 31.25 X10^3/uL (2.7-7.7); Neutrophil % 90.5 % (47-70); POSITIVE COUNT YES; POSITIVE DIFFERENTIAL YES; Platelet Count 589 K/mm3 (150-450); RBC Distribution Width CV 15.9 % (11.6-14.6); RBC Distribution Width SD 49.2 fl (35.1-43.9); Red Blood Count 3.13 M/mm3 (4.2-5.4)
[2023-12-22] MEDS: Ceftriaxone 1 GM/50 ML BAG IV (12:43)
[2023-12-22 12:50] LABS: White Blood Count 34.6 K/mm3 (4.4-11.0)
[2023-12-22 12:51] LABS: Differential Indicated SCAN CRITERIA MET
[2023-12-22] MEDS: Ketorolac 15 MG/ML Vial IV (12:59)
[2023-12-22] MEDS: fentaNYL 100 MCG/2 ML Ampul 25 MCG IV (13:00)
--- NOTE | 2023-12-22 13:46 | HP.PCM.HOS_ITS ---
HPI - General General Date of Admission: 12/22/23 Date of Service: 12/22/23 Chief Complaint: Abnormal CT Abd/Pelvis HPI Narrative ELSIE BRIGGS, is a 78 F who presented to the emergency department at [facility] on 12/22/2023 at the instruction of Dr. Gastelum due to abnormal CT of the abdomen pelvis. Patient says she got COVID while on a visit to [place] in October and has not been right since. She indicates since that poin t in time she has been a little bit foggy and somewhat forgetful however does not notice any significant memory loss. She has also had some right-sided abdominal pain which they initially attributed to muscle pull due to significant post infectious cough she was suffering from. Her cough is since improved and she has continuing right-sided abdominal pain that seems to be in the lower abd omen and flank area. She denies any nausea or vomiting. She does not have any right upper quadrant pain after eating. She still has her gallbladder. The pain has become more constant in nature and seems to be sharp for the most part. She is also now complaining of some left shoulder pain. She has a history of a left total shoulder arthroplasty and notes that she had not had any pain in it before and now she is having increasing pain. She denies any swelling, fever, chills or redness but does report increased pain with movement. She seen multiple doctors due to markedly elevated white count since that point in time and they ordered the CT done yesterday. She also had blood cultures that were done on 12/17/2023 and are no growth to date. On the CT that was done yesterday, there is evidence of diffuse enlargement of the right kidney with multiple cystic masses and 3 tiny calculi in the proximal portion of the right ureter with right hydronephrosis and right hydroureter down to the insertion of the urinary bladder on the right which is a new finding since an ultrasound that was done of her kidneys on 05/24/2023. She also had small bilateral effusions with left bibasilar atelectasis and a small pericardial effusion. There was decreased attenuation in the liver consistent with hepatic steatosis which has been seen previously. Gallbladder and extrahepatic biliary system appeared normal. Given these findings she was sent to the emergency department for further workup by Dr. Gastelum. Vital signs on presentation showed temperature of 97.4, initial blood pressure was 95/68 with repeat most recently at 136/60, respiratory was 16 oxygen saturations are 92 to 99% on room air. Her CBC was markedly abnormal with a white count of 34.6, hemoglobin was 8.3 and stable when compared to most recent, and her platelet count was markedly elevated at 589,000. Both her white count and platelet count have been trending up. Iron studies have been done recently and are consistent with chronic disease. Her ferritin is markedly elevated and I suspect this is related to inflammation. She has a significant left shift with a 90.5% neutrophilia. A sed rate was obtained and found to be 70. Her chemistry is overall unremarkable. Her renal function is normal and she has mild hyponatremia the sodium of 135. Lactic acid was normal at 1.2. Her AST is normal but she has mild ALT elevation at 97 with markedly elevated alk phos at 499 which is trending up. GGT was done recently and was found to be elevated at 189. Her direct bilirubin is elevated at 0.46 but her total bilirubin is normal. CRP was done and found to be 275 and this is uptrending as well. Her lipase is normal. Her UA is consistent with dehydration and infection. She has occult blood, leuk esterase, protein, white cells greater than 100 per high- power field and 4+ bacteria. CT of the abdomen pelvis was done yesterday as noted above. The emergency department she was given ceftriaxone the case was discussed with Dr. Hernandez who has elected to take her to the OR for stenting of her right ureter. Given her complaints of left shoulder pain in the setting of a total arthroplasty and markedly elevated inflammatory markers I will get imaging in the form of CT with contrast and an MRI of her abdomen pelvis for her abnormal liver enzymes. [facility] Medical History Anemia of chronic renal failure, stage 3 (moderate) Asthma Bronchitis Chronic renal failure DVT (deep venous thrombosis) Hiatal hernia Hx of Clostridium difficile infection HX: breast cancer Iron deficiency anemia Low back pain Other hyperlipidemia Pulmonary emboli RLS (restless legs syndrome) Home Medications Cinnamon 2 capsule PO BID 10/29/18 [History Last Taken Unknown] citalopram 20 mg tablet 20 mg PO DAILY 10/29/18 [History Last Taken Unknown] lovastatin 20 mg tablet 20 mg PO DAILY 10/29/18 [History Last Taken Unknown] diphenhydramine 25 mg-acetaminophen 500 mg tablet (Tylenol PM Extra Strength) 1 tab PO QHS insomnia 06/10/22 [History Last Taken Unknown] bupropion HCl 150 mg 24 hr tablet, extended release 150 mg PO BID 09/23/23 [History Last Taken Unknown] calcium carbonate 600 mg calcium (1,500 mg) tablet 600 mg PO BID 09/23/23 [History Last Taken Unknown] fluticasone furoate 200 mcg/actuation blister powder for inhalation (Arnuity Ellipta) 1 inh inhalation DAILY 09/23/23 [History Last Taken Unknown] gabapentin 100 mg capsule 200 mg PO BID 09/23/23 [History Last Taken Unknown] losartan 25 mg tablet 12.5 mg PO DAILY 09/23/23 [History Last Taken Unknown] montelukast 10 mg tablet (Singulair) 10 mg PO DAILY 09/23/23 [History Last Taken Unknown] omeprazole 20 mg capsule,delayed release 20 mg PO DAILY 09/23/23 [History Last Taken Unknown] omeprazole 40 mg capsule,delayed release 40 mg PO DAILY 09/23/23 [History Last Taken Unknown] vitamin E mixed 400 unit capsule 400 unit PO DAILY 09/23/23 [History Last Taken Unknown] albuterol sulfate 0.63 mg/3 mL solution for nebulization 0.63 mg inhalation TID 12/20/23 [History Last Taken Unknown] Allergy/AdvReac Type Severity Reaction Status Date / Time pneumococcal vaccine AdvReac Mild Swelling Verified 12/22/23 14:59 adhesive AdvReac Rash Verified 12/22/23 14:59 adhesive tape AdvReac Rash Verified 12/22/23 14:59 Family History Father Hypertension Mother Diabetes Cancer leukemia Grandmother Cancer bladder, mouth CA Brother Depression Sister Pacemaker Daughter Lyme disease Fibromyalgia Ovarian cancer Surgical History H/O bilateral mastectomy H/O blepharoplasty h/o left reverse total shoulder History of ankle surgery History of knee replacement Hx of cataract removal with insertion of prosthetic lens Hx of colonoscopy Social History household members: spouse number of children: 2 Smoking Status: Never smoker alcohol intake: current alcohol intake frequency: holidays/special occasions only Alcohol type: wine substance use type: does not use caffeine: Yes Type: coffee Number of servings: 1 and tea ROS Constitutional Constitutional: Reports fatigue, malaise and weakness; Denies anorexia, change in weight, chills, fever(s), night sweats or other Eyes Eyes: Denies blurry vision, change in eye color, change in vision, discharge from eye(s), double vision, erythema, eye pain, loss of vision or other ENT HEENT: Denies abnormal hearing, dysphagia, ear pain, epistaxis, headache(s), hearing loss, nasal congestion, nasal discharge, post nasal drip, sinus pressure, sore throat or other Cardiovascular Cardiovascular: Denies chest pain, claudication, dyspnea on exertion, edema, lightheadedness, orthopnea, palpitations, paroxysmal nocturnal dyspnea, rapid heart rate, syncope or other Respiratory/Chest Respiratory/Chest: Denies cough, dyspnea, excessive phlegm production, hemoptysis, productive cough, shortness of breath at rest, shortness of breath with exertion, wheezing or other Gastrointestinal Gastrointestinal: Reports abdominal pain and other Details: Bloating ; Denies coffee ground emesis, constipation, diarrhea, dyspepsia, hematemesis, hematochezia, loose stools, melena, nausea or vomiting Genitourinary Genitourinary: Reports burning urination and dysuria; Denies difficulty urinating, hematuria, nocturia, urinary frequency, urinary hesitancy, urinary incontinence, urinary urgency or other Musculoskeletal Musculoskeletal: Reports back pain; Denies arthralgias, joint pain, joint s tiffness, joint swelling, myalgias, neck pain or other Neurologic Neurologic: Denies abnormal gait, abnormal speech, confusion, disequilibrium, dizziness, focal weakness, headache(s), numbness, paresthesias, seizure-like activity, seizures, syncope, tingling, tremor(s) or other Psychiatric Psychiatric: Reports anxiety and depression; Denies homicidal ideation, suicidal ideation or other Endocrine Endocrinology: Denies change in body appearance, cold intolerance, excessive sweating, heat intolerance, polydipsia, polyuria or other Hematologic/Lymphatic Hematologic/Lymphatic: Denies anemia, easy bleeding, easy bruising, lymphadenopathy or other Allergic/Immunologic Allergic/Immunologic: Denies rhinitis, hives, eczemia, asthma or other Vital Signs Vital Signs Vital Signs: 12/22/23 10:54 12/22/23 10:53 12/22/23 12:49 Temperature 97.4 F L Temperature Source Temporal Pulse Rate 94 86 Respiratory Rate 16 18 Respiratory Effort Normal Respiratory Pattern Normal Blood Pressure 95/68 113/59 L Blood Pressure Mean 77 77 Pulse Ox 99 96 Oxygen Delivery Method Room Air Room Air 12/22/23 13:38 12/22/23 13:39 Temperature 98.6 F 98.6 F Temperature Source Temporal Pulse Rate 80 80 Respiratory Rate 18 18 Respiratory Effort Respiratory Pattern Blood Pressure 136/60 H 136/60 H Blood Pressure Mean 85 85 Pulse Ox 92 92 Oxygen Delivery Method Weight Weight: 73.8 kg Body Mass Index (BMI) 28.8 Physical Exam Const alert, oriented x3, average body habitus and well nourished; Negative for no apparent distress or healthy appearing Constitutional Narrative: Elderly, white female, sitting up in bed, appears uncomfortable with movement holding her right side, present, appears ill but nontoxic General Appearance: cooperative HEENT normocephalic, head/scalp atraumatic and hearing grossly normal bilaterally HEENT Narrative: Mucous membranes are dry, Mallampati is 2, no thrush, dentures in place Eyes PERRL and EOMs intact bilaterally Eyes Narrative: Conjunctiva are pale bilaterally, no scleral icterus Neck no lymphadenopathy and supple Neck Narrative: Trachea midline, no thyroid enlargement Resp normal respiratory effort, no retractions, no use of accessory muscles and clear to auscultation bilaterally Resp Narrative: Patient does have increased flank pain on the right side with deep breathing Auscultation: Negative for rales, rhonchi or wheezes Cardio regular rate, regular rhythm, S1 normal heart sound, S2 normal heart sound, no murmurs, no rub, no gallops and no clicks GI normal to inspection, nondistended, normoactive bowel sounds and soft to palpation; Negative for non-tender GI Narrative: Significant tenderness in right mid abdomen and right lower quadrant that extends around to the right flank, no pain with palpation of the right upper quadrant or epigastrium Extremity no clubbing, cyanosis or edema Extremity Narrative: Pedal pulses are 2+ Skin no rashes or lesions noted, no wounds, skin turgor normal, no jaundice, no petechiae and no mottling Skin Narrative: Skin is pale Neuro oriented x3, CN's II-XII intact bilaterally, moves all extremities and no focal motor deficits Speech: speech normal Psych Psych Narrative: Eye contact is good, patient is mildly anxious, affect is normal, very pleasant Mood & Affect: anxious Results Lab / Micro Data 12/22/23 11:45 12/22/23 11:45 Labs: Laboratory Results - last 24 hr 12/22/23 11:45: WBC 34.6 H*, RBC 3.13 L, Hgb 8.3 L, Hct 26.6 L, MCV 85.0, MCH 26.5 L, MCHC 31.2 L, RDW Std Deviation 49.2 H, RDW Coeff of Jovi 15.9 H, Plt Count 589 H, MPV 9.2, Immature Gran % (Auto) 1.500 H, Neut % (Auto) 90.5 H, Lymph % (Auto) 3.5 L, [place] % (Auto) 4.2, Eos % (Auto) 0.0, Baso % (Auto) 0.3, Absolute Neuts (auto) 31.3 H, Absolute Lymphs (auto) 1.21, Nucleated RBC % 0, Diff Path Review March, ESR 70 H, Sodium 135 L, Potassium 4.6, Chloride 100, Carbon Dioxide 27.0, Anion Gap 8, BUN 17, Creatinine 0.97, Estim Creat Clear Calc 46.00, Est GFR (MDRD) Af Amer 72, Est GFR (MDRD) Non-Af 59 L, BUN/Creatinine Ratio 17.5, Glucose 110 H, Lactic Acid 1.2, Calcium 9.5, Total Bilirubin 0.70, Direct Bilirubin 0.46 H, AST 36, ALT 97 H, Alkaline Phosphatase 499 H, C-React Prot Ext Range 275.00 H, Total Protein 6.2 L, Albumin 2.0 L, Globulin 4.2, Lipase 17, Urine Color Lis[place], Urine Clarity Turbid, Urine pH 5.0, Ur Specific [place] 1.020, Urine Protein 100 H, Urine Glucose (UA) Normal, Urine Ketones 5 H, Urine Occult Blood 250 H, Urine Nitrite Negative, Urine Bilirubin Negative, Urine Urobilinogen 1 H, Ur Leukocyte Esterase 500 H, Urine RBC 25-50 SEEN, Urine WBC >100 SEEN, Ur Squamous Epith Cells 0 SEEN, Urine Bacteria 4+, Urine Mucus 0 SEEN Assessment & Plan Assessment/Plan (1) Anemia: (2) Leukocytosis: (3) Elevated liver enzymes: (4) UTI (urinary tract infection): (5) Hydronephrosis: (6) Renal cyst: (7) Elevated serum GGT level: (8) Thrombocytosis: (9) Left shoulder pain: PLAN: Plan Right hydronephrosis with urinary tract infection/renal cysts -Check urine culture -Check blood cultures -Will use Zosyn and vancomycin which shoulder pain until he can rule out more systemic infection and narrow as able -Urology consulted and plan is for OR later today for right ureteral stent placement -Patient may need more extensive surgery including nephrectomy depending on urology input -N.p.o. for now Elevated alk phos/elevated GGT -Discussed case with Dr. Gastelum -Will obtain MRCP -Talked to MRI and they can do an MRCP after ureteral stent placement -Consult gastroenterology Thrombocytosis/elevated inflammatory markers -It does not appear that this is related to iron deficiency -Likely related to infection and should trend downward as infection gets treated -Repeat CBC in a.m. -Repeat CRP in 48 hours Left shoulder pain -Remote left total shoulder arthroplasty -Pain has developed in the last week -Check CT of the shoulder with worsening inflammatory markers -Range of motion actively and passively is very painful but patient has not had fever or chills and no swelling or erythema noted on exam Chronic anemia -Iron studies are consistent with chronic disease having a low TIBC low iron and low iron saturation -Ferritin is elevated however I suspect it is elevated due to inflammation -Check guaiac if trends down -Repeat CBC in a.m. -It does appear that her hemoglobin has been fluctuating -Is following as an outpatient both with hematology and with gastroenterology History of C. difficile -No diarrhea presently -Patient requesting that we place her on probiotics so acidophilus was initiated -Monitor clinically -Would have low threshold to send stool sample if diarrhea becomes a problem History of DVT/PE -Remote -Patient is not on any medication currently Asthma -Continue home inhalers -Continue home Singulair Hypertension -Blood pressure is normal but on the low side of normal -Will hold antihypertensives for now -As needed hydralazine available if needed and may be able to restart losartan tomorrow depending on blood pressure trends Hyperlipidemia -Continue home lovastatin GERD -Continue home PPI Restless leg syndrome -Continue home gabapentin History of breast cancer -Remote -Continue outpatient follow-up DVT prophylaxis -Subcu Lovenox daily CODE STATUS -Full code is verified prior to admission Charges/Coding Visit Charges Inpatient E&M: 91690 Init Hosp L3
--- NOTE | 2023-12-22 13:49 | NURSING ---
MED SURG YOLIE PYELONEPHRITIS, URETEROLITHIASIS, ABN LFTS
--- NOTE | 2023-12-22 14:03 | CT_ITS ---
STUDY: CT LEFT SHOULDER REASON FOR EXAM: Female, 78 years old. Prior left shoulder replacement. Patient presents with pain. RADIATION DOSAGE (If Supplied By Facility): CTDIvol = ( 26.49 ) mGy, DLP = ( 726.40 ) mGycm TECHNIQUE: The patient was scanned in a multi detector CT scanner. High resolution transaxial imaging was performed without the administration of intravenous contrast material. Sagittal and coronal images were reconstructed. Individualized dose optimization techniques were used for this CT. COMPARISON: None. FINDINGS: The patient is status post left reverse shoulder replacement. There is good alignment. Normal coracoid process. Normal visualized lateral clavicle. There is moderate osteoarthritis with articular joint space narrowing and with osteoarthritic spurring. There is a Type II morphology (curved), with a neutral orientation. Left breast prostheses. Left basilar atelectasis. Small pericardial effusion. CT/Extremity Upper WITH Contrast IMPRESSION: Status post left reverse shoulder replacement. There is good alignment. Degenerative changes of the acromioclavicular joint. Left basilar atelectasis. Small pericardial effusion. Electronically Signed: Yousif Hathaway MD at 14:55 EST ,
[2023-12-22] MEDS: Ondansetron 4 MG/2 ML Vial IV (14:29)
[2023-12-22] MEDS: Morphine 2 MG/ML Syringe 4 MG IV (14:29)
[2023-12-22] MEDS: Lactated Ringers 1,000 ML 15 ML IV (15:00)
--- NOTE | 2023-12-22 15:05 | PCM.CONS.U ---
HPI Consult Data Date of Consult: 12/22/23 HPI Narrative Reason for Consultation: Poorly functioning infected right kidney HPI Narrative: ELSIE BRIGGS, is a 78 F who presents to the hospital with extremely elevated white blood count CT scan was done recently demonstrated obstructive stones in the proximal right UPJ and she has a completely hydronephrotic swollen right kidney with very minimal function look like apparently she has developed a stricture or blockage in the proximal ureter from some stones and has developed a nonfunctioning obstructed hydronephrotic kidney she was unaware of this finding because she has been having no recent pain but recently she has been having some right upper quadrant pain with suspect she probably has a infection in the right kidney today after taking her surgery to do a cystoscopy right stent placement but eventually she will need to be scheduled for cystoscopy and a right nephrectomy but for the time being to clear her infection and placed a stent on the right side. [facility] Medical History Anemia of chronic renal failure, stage 3 (moderate) Asthma Bronchitis Chronic renal failure DVT (deep venous thrombosis) Hiatal hernia Hx of Clostridium difficile infection HX: breast cancer Iron deficiency anemia Low back pain Other hyperlipidemia Pulmonary emboli RLS (restless legs syndrome) Home Medications Cinnamon 2 capsule PO BID 10/29/18 [History Last Taken Unknown] citalopram 20 mg tablet 20 mg PO DAILY 10/29/18 [History Last Taken Unknown] lovastatin 20 mg tablet 20 mg PO DAILY 10/29/18 [History Last Taken Unknown] diphenhydramine 25 mg-acetaminophen 500 mg tablet (Tylenol PM Extra Strength) 1 tab PO QHS insomnia 06/10/22 [History Last Taken Unknown] bupropion HCl 150 mg 24 hr tablet, extended release 150 mg PO BID 09/23/23 [History Last Taken Unknown] calcium carbonate 600 mg calcium (1,500 mg) tablet 600 mg PO BID 09/23/23 [History Last Taken Unknown] fluticasone furoate 200 mcg/actuation blister powder for inhalation (Arnuity Ellipta) 1 inh inhalation DAILY 09/23/23 [History Last Taken Unknown] gabapentin 100 mg capsule 200 mg PO BID 09/23/23 [History Last Taken Unknown] losartan 25 mg tablet 12.5 mg PO DAILY 09/23/23 [History Last Taken Unknown] montelukast 10 mg tablet (Singulair) 10 mg PO DAILY 09/23/23 [History Last Taken Unknown] omeprazole 20 mg capsule,delayed release 20 mg PO DAILY 09/23/23 [History Last Taken Unknown] omeprazole 40 mg capsule,delayed release 40 mg PO DAILY 09/23/23 [History Last Taken Unknown] vitamin E mixed 400 unit capsule 400 unit PO DAILY 09/23/23 [History Last Taken Unknown] albuterol sulfate 0.63 mg/3 mL solution for nebulization 0.63 mg inhalation TID 12/20/23 [History Last Taken Unknown] Allergy/AdvReac Type Severity Reaction Status Date / Time pneumococcal vaccine AdvReac Mild Swelling Verified 12/22/23 14:59 adhesive AdvReac Rash Verified 12/22/23 14:59 adhesive tape AdvReac Rash Verified 12/22/23 14:59 Family History Father Hypertension Mother Diabetes Cancer leukemia Grandmother Cancer bladder, mouth CA Brother Depression Sister Pacemaker Daughter Lyme disease Fibromyalgia Ovarian cancer Surgical History H/O bilateral mastectomy H/O blepharoplasty h/o left reverse total shoulder History of ankle surgery History of knee replacement Hx of cataract removal with insertion of prosthetic lens Hx of colonoscopy Social History household members: spouse number of children: 2 Smoking Status: Never smoker alcohol intake: current alcohol intake frequency: holidays/special occasions only Alcohol type: wine substance use type: does not use caffeine: Yes Type: coffee Number of servings: 1 and tea Lab / Micro Data 12/22/23 11:45 12/22/23 11:45 Labs: Laboratory Results - last 24 hr 12/22/23 11:45: WBC 34.6 H*, RBC 3.13 L, Hgb 8.3 L, Hct 26.6 L, MCV 85.0, MCH 26.5 L, MCHC 31.2 L, RDW Std Deviation 49.2 H, RDW Coeff of Jovi 15.9 H, Plt Count 589 H, MPV 9.2, Immature Gran % (Auto) 1.500 H, Neut % (Auto) 90.5 H, Lymph % (Auto) 3.5 L, [place] % (Auto) 4.2, Eos % (Auto) 0.0, Baso % (Auto) 0.3, Absolute Neuts (auto) 31.3 H, Absolute Lymphs (auto) 1.21, Nucleated RBC % 0, Diff Path Review March, ESR 70 H, Sodium 135 L, Potassium 4.6, Chloride 100, Carbon Dioxide 27.0, Anion Gap 8, BUN 17, Creatinine 0.97, Estim Creat Clear Calc 46.00, Est GFR (MDRD) Af Amer 72, Est GFR (MDRD) Non-Af 59 L, BUN/Creatinine Ratio 17.5, Glucose 110 H, Lactic Acid 1.2, Calcium 9.5, Total Bilirubin 0.70, Direct Bilirubin 0.46 H, AST 36, ALT 97 H, Alkaline Phosphatase 499 H, C-React Prot Ext Range 275.00 H, Total Protein 6.2 L, Albumin 2.0 L, Globulin 4.2, Lipase 17, Urine Color [place], Urine Clarity Turbid, Urine pH 5.0, Ur Specific [place] 1.020, Urine Protein 100 H, Urine Glucose (UA) Normal, Urine Ketones 5 H, Urine Occult Blood 250 H, Urine Nitrite Negative, Urine Bilirubin Negative, Urine Urobilinogen 1 H, Ur Leukocyte Esterase 500 H, Urine RBC 25-50 SEEN, Urine WBC >100 SEEN, Ur Squamous Epith Cells 0 SEEN, Urine Bacteria 4+, Urine Mucus 0 SEEN Imaging Radiology Impression Upper Extremity CT 12/22/23 14:03 IMPRESSION: Status post left reverse shoulder replacement. There is good alignment. Degenerative changes of the acromioclavicular joint. Left basilar atelectasis. Small pericardial effusion. Electronically Signed: Yousif Hathaway MD at 14:55 EST ,
--- NOTE | 2023-12-22 15:19 | OP.PCM_ITS ---
Report of Operation Date of Procedure: 12/22/23 Pre-Operative Diagnosis: Infected right kidney poorly functioning hydronephrotic Post-Operative Diagnosis: The same Surgery/Procedure Performed:: Cystoscopy right retrograde pyelogram right stent placement Description of Surgical Findings:: This is a 78-year-old female who was planned to see in the office tomorrow but she was brought in emergently to the hospital because of worsening white blood count very high. 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 She has been admitted to the hospitalist service to undergo further workup and today and can proceed with a cystoscopy and right stent placement. Patient was taken back to the operating room after smooth induction of anesthesia she was placed in dorsolithotomy position position. The urethrovaginal area were prepped and draped in usual sterile fashion went in the bladder with a 21 [place] rigid cystourethroscope there was a lot of pus already coming down from the right ureteral orifice and pus inside the bladder I then cannulated the right ureteral fist with a Glidewire and a Pollick catheter performed retrograde pyelogram see contrast going up to the kidney there was a dilated kidney I then put a wire up in the kidney this coiled and then over the wire placed a stent it was a 7 [place] by 24 cm stent once the stent was in good position I drained the bladder the stent coiled in the kidney bladder good position patient anesthetic was reversed taken back to PACU in good condition hopefully this will help drain her infection and will resolve her acute infection and then off the plan for an interval nephrectomy once this infection is completely cleared. Surgeon: Fredi Hernandez Type of Anesthesia: General Drains: Right stent Admit VTE Documentation VTE Present on Admission: No VTE Mechan Device Prophylaxis: SCD's VTE Pharm Prophylaxis ordered?: No
--- NOTE | 2023-12-22 16:41 | CON.PCM.GI_ITS ---
HPI Consult Data Date of Consult: 12/22/23 HPI Narrative HPI Narrative: ELSIE BRIGGS, is a 78 F who presented to the emergency department at [facility] today after looking at her abnormal CT of the abdomen pelvis. She has also had some right-sided abdominal pain which they initially attributed to muscle pull due to significant post infectious cough she was suffering from. She admits to has continuing right-sided abdominal pain that seems to be in the lower abdomen and flank area. She denies any nausea or vomiting. She does not have any right upper quadrant pain after eating. She still has her gallbladder. The pain has become more constant in nature and seems to be sharp for the most part. I was called by Dr. Junior asked to see her because of her elevated liver enzymes. She was noted to have increased AST greater than ALT and elevated alkaline phosphatase were prompted a GGT which was also elevated. She also had blood cultures that were done on 12/17/2023 and are no growth to date. On the CT that was done yesterday, there is evidence of diffuse enlargement of the right kidney with multiple cystic masses and 3 tiny calculi in the proximal portion of the right ureter with right hydronephrosis and right hydroureter down to the insertion of the urinary bladder on the right which is a new finding since an ultrasound that was done of her kidneys on 05/24/2023. There was decreased attenuation in the liver consistent with hepatic steatosis which has been seen previously. Gallbladder and extrahepatic biliary system frederic eared normal. Vital signs on presentation showed temperature of 97.4, initial blood pressure was 95/68 with repeat most recently at 136/60, respiratory was 16 oxygen saturations are 92 to 99% on room air. Her CBC was markedly abnormal with a white count of 34.6, hemoglobin was 8.3 and stable when compared to most recent, and her platelet count was markedly elevated at 589,000. Both her white count and platelet count have been trending up. Iron studies have been done recently and are consistent with chronic disease. Her ferritin is markedly elevated and I suspect this is related to inflammation. She has a significant left shift with a 90.5% neutrophilia. A sed rate was obtained and found to be 70. Her chemistry is overall unremarkable. Her renal function is normal and she has mild hyponatremia the sodium of 135. Lactic acid was normal at 1.2. Her AST is normal but she has mild ALT elevation at 97 with markedly elevated alk phos at 499 which is trending up. GGT was done recently and was found to be elevated at 189. Her direct bilirubin is elevated at 0.46 but her total bilirubin is normal. CRP was done and found to be 275 and this is uptrending as well. Her lipase is normal. Her UA is consistent with dehydration and infection. She has occult blood, leuk esterase, protein, white cells greater than 100 per high-power field and 4+ bacteria. [facility] Medical History Anemia of chronic renal failure, stage 3 (moderate) Asthma Bronchitis Chronic renal failure DVT (deep venous thrombosis) Hiatal hernia Hx of Clostridium difficile infection HX: breast cancer Iron deficiency anemia Low back pain Other hyperlipidemia Pulmonary emboli RLS (restless legs syndrome) Home Medications Cinnamon 2 capsule PO BID 10/29/18 [History Last Taken Unknown] citalopram 20 mg tablet 20 mg PO DAILY 10/29/18 [History Last Taken Unknown] lovastatin 20 mg tablet 20 mg PO DAILY 10/29/18 [History Last Taken Unknown] diphenhydramine 25 mg-acetaminophen 500 mg tablet (Tylenol PM Extra Strength) 1 tab PO QHS insomnia 06/10/22 [History Last Taken Unknown] bupropion HCl 150 mg 24 hr tablet, extended release 150 mg PO BID 09/23/23 [History Last Taken Unknown] calcium carbonate 600 mg calcium (1,500 mg) tablet 600 mg PO BID 09/23/23 [History Last Taken Unknown] fluticasone furoate 200 mcg/actuation blister powder for inhalation (Arnuity Ellipta) 1 inh inhalation DAILY 09/23/23 [History Last Taken Unknown] gabapentin 100 mg capsule 200 mg PO BID 09/23/23 [History Last Taken Unknown] losartan 25 mg tablet 12.5 mg PO DAILY 09/23/23 [History Last Taken Unknown] montelukast 10 mg tablet (Singulair) 10 mg PO DAILY 09/23/23 [History Last Taken Unknown] omeprazole 20 mg capsule,delayed release 20 mg PO DAILY 09/23/23 [History Last Taken Unknown] omeprazole 40 mg capsule,delayed release 40 mg PO DAILY 09/23/23 [History Last Taken Unknown] vitamin E mixed 400 unit capsule 400 unit PO DAILY 09/23/23 [History Last Taken Unknown] albuterol sulfate 0.63 mg/3 mL solution for nebulization 0.63 mg inhalation TID 12/20/23 [History Last Taken Unknown] Allergy/AdvReac Type Severity Reaction Status Date / Time pneumococcal vaccine AdvReac Mild Swelling Verified 12/22/23 14:59 adhesive AdvReac Rash Verified 12/22/23 14:59 adhesive tape AdvReac Rash Verified 12/22/23 14:59 Family History Father Hypertension Mother Diabetes Cancer leukemia Grandmother Cancer bladder, mouth CA Brother Depression Sister Pacemaker Daughter Lyme disease Fibromyalgia Ovarian cancer Surgical History H/O bilateral mastectomy H/O blepharoplasty h/o left reverse total shoulder History of ankle surgery History of knee replacement Hx of cataract removal with insertion of prosthetic lens Hx of colonoscopy Social History household members: spouse number of children: 2 Smoking Status: Never smoker alcohol intake: current alcohol intake frequency: holidays/special occasions only Alcohol type: wine substance use type: does not use caffeine: Yes Type: coffee Number of servings: 1 and tea ROS Constitutional Constitutional: Reports fatigue, malaise and weakness; Denies anorexia, change i n weight, chills, fever(s), night sweats or other Eyes Eyes: Denies blurry vision, change in eye color, change in vision, discharge from eye(s), double vision, erythema, eye pain, loss of vision or other ENT HEENT: Denies abnormal hearing, dysphagia, ear pain, epistaxis, headache(s), hearing loss, nasal congestion, nasal discharge, post nasal drip, sinus pressure, sore throat or other Cardiovascular Cardiovascular: Denies chest pain, claudication, dyspnea on exertion, edema, lightheadedness, orthopnea, palpitations, paroxysmal nocturnal dyspnea, rapid heart rate, syncope or other Respiratory/Chest Respiratory/Chest: Denies cough, dyspnea, excessive phlegm production, hemoptysis, productive cough, shortness of breath at rest, shortness of breath with exertion, wheezing or other Gastrointestinal Gastrointestinal: Reports abdominal pain and other Details: Bloating ; Denies coffee ground emesis, constipation, diarrhea, dyspepsia, hematemesis, h ematochezia, loose stools, melena, nausea or vomiting Genitourinary Genitourinary: Reports burning urination and dysuria; Denies difficulty urinating, hematuria, nocturia, urinary frequency, urinary hesitancy, urinary incontinence, urinary urgency or other Musculoskeletal Musculoskeletal: Reports back pain; Denies arthralgias, joint pain, joint stiffness, joint swelling, myalgias, neck pain or other Neurologic Neurologic: Denies abnormal gait, abnormal speech, confusion, disequilibrium, dizziness, focal weakness, headache(s), numbness, paresthesias, seizure-like activity, seizures, syncope, tingling, tremor(s) or other Psychiatric Psychiatric: Reports anxiety and depression; Denies homicidal ideation, suicidal ideation or other Endocrine Endocrinology: Denies change in body appearance, cold intolerance, excessive sweating, heat intolerance, polydipsia, polyuria or other Hematologic/Lymphatic Hematologic/Lymphatic: Denies anemia, easy bleeding, easy bruising, lymphadenopathy or other Allergic/Immunologic Allergic/Immunologic: Denies rhinitis, hives, eczemia, asthma or other Physical Exam Const oriented x3 and no apparent distress Constitutional Narrative: Tired looking General Appearance: cooperative HEENT Face and Sinus: normal facial exam Mouth: oral and palatal mucosa normal Eyes General Eye: normal appearance of both eyes Neck no lymphadenopathy and no JVD Resp clear to auscultation bilaterally Cardio regular rate and regular rhythm Jugular Venous Distention: Negative for JVD GI soft to palpation Palpation: tender RUQ and hepatomegaly Extremity no clubbing, cyanosis or edema Skin no rashes or lesions noted Neuro oriented x3, CN's II-XII intact bilaterally and moves all extremities Speech: speech normal Gait (Neuro): normal gait Lab / Micro Data 12/22/23 11:45 12/22/23 11:45 Labs: Laboratory Results - last 24 hr 12/22/23 11:45: WBC 34.6 H*, RBC 3.13 L, Hgb 8.3 L, Hct 26.6 L, MCV 85.0, MCH 26.5 L, MCHC 31.2 L, RDW Std Deviation 49.2 H, RDW Coeff of Jovi 15.9 H, Plt Count 589 H, MPV 9.2, Immature Gran % (Auto) 1.500 H, Neut % (Auto) 90.5 H, Lymph % (Auto) 3.5 L, [place] % (Auto) 4.2, Eos % (Auto) 0.0, Baso % (Auto) 0.3, Absolute Neuts (auto) 31.3 H, Absolute Lymphs (auto) 1.21, Nucleated RBC % 0, Diff Path Review March, ESR 70 H, Sodium 135 L, Potassium 4.6, Chloride 100, Carbon Dioxide 27.0, Anion Gap 8, BUN 17, Creatinine 0.97, Estim Creat Clear Calc 46.00, Est GFR (MDRD) Af Amer 72, Est GFR (MDRD) Non-Af 59 L, BUN/Creatinine Ratio 17.5, Glucose 110 H, Lactic Acid 1.2, Calcium 9.5, Total Bilirubin 0.70, Direct Bilirubin 0.46 H, AST 36, ALT 97 H, Alkaline Phosphatase 499 H, C-React Prot Ext Range 275.00 H, Total Protein 6.2 L, Albumin 2.0 L, Globulin 4.2, Lipase 17, Urine Color Lisette, Urine Clarity Turbid, Urine pH 5.0, Ur Specific [place] 1.020, Urine Protein 100 H, Urine Glucose (UA) Normal, Urine Ketones 5 H, Urine Occult Blood 250 H, Urine Nitrite Negative, Urine Bilirubin Negative, Urine Urobilinogen 1 H, Ur Leukocyte Esterase 500 H, Urine RBC 25-50 SEEN, Urine WBC >100 SEEN, Ur Squamous Epith Cells 0 SEEN, Urine Bacteria 4+, Urine Mucus 0 SEEN Imaging Radiology Impression Upper Extremity CT 12/22/23 14:03 IMPRESSION: Status post left reverse shoulder replacement. There is good alignment. Degenerative changes of the acromioclavicular joint. Left basilar atelectasis. Small pericardial effusion. Electronically Signed: Yousif Hathaway MD at 14:55 EST , Assessment & Plan Assessment/Plan (1) Anemia: (2) Leukocytosis: (3) Elevated liver enzymes: (4) UTI (urinary tract infection): (5) Hydronephrosis: (6) Renal cyst: (7) Elevated serum GGT level: (8) Thrombocytosis: (9) Left shoulder pain: PLAN: Plan The differential diagnosis for her includes sepsis-associated liver dysfunction is mainly resulted from systemic or microcirculatory disturbances, spillovers of bacteria and endotoxin and subsequent activation of inflammatory cytokines as well as mediators.?The clinical manifestations of sepsis-associated liver dy sfunction can roughly be divided into two categories: Hypoxic hepatitis and jaundice. The latter is much more frequent in the context of sepsis.? Also differential diagnosis does include cholestatic hepatitis secondary to microlithiasis. She does have a gallbladder and she has not been eating and subsequently lost about 10 pounds which is associated with more lithogenic bile. This can lead to cholestasis. In particular this resolves with eating. However due to the fact that this is an increase in alkaline phosphatase and gamma-glutamyltransferase she should have evaluation with an MRCP to make sure that there is no sign of cholangiopathy that can develop associated with sepsis. I do recommend MRCP. She is going to get ureteral stent placed by urology and if her liver enzymes start to come down after this placed then this is likely uro-sepsis associated with liver dysfunction. I will continue to follow. Charges/Coding Visit Charges Inpatient E&M: 42694 Init Hosp L3
[2023-12-22] MEDS: Piperacil/Tazobactam 3.375 GM in 0.9% Normal Saline (50mL MB+) 50 ML IV (18:43)
[2023-12-22] MEDS: Acetaminophen 325 MG Tablet 650 MG PO (19:03)
[2023-12-22] MEDS: Vancomycin IV 1,000 MG/200 ML BAG 200 MG IV (20:09)
[2023-12-22] MEDS: DiphenhydrAMINE 25 MG Capsule PO (20:25)
[2023-12-22] MEDS: buPROPion (SR) 150 MG Tablet.SA PO (20:25)
[2023-12-22] MEDS: Acetaminophen 500 MG Tablet PO (20:25)
[2023-12-22] MEDS: Atorvastatin Calcium 10 MG Tablet 5 MG PO (20:26)
[2023-12-22] MEDS: MELATONIN 3 MG TABLET PO (20:27)
[2023-12-22] MEDS: Gabapentin 100 MG Capsule 200 MG PO (20:27)
--- NOTE | 2023-12-22 20:29 | PHA.PHARE_ITS ---
Consult Antibiotic Management Pharmacy has been consulted to manage selected antibiotic: Vancomycin Type of Intervention Type of Consult: New start Labs Labs: Sodium 135 mmol/L (136-145) L 12/22/23 11:45 Potassium 4.6 mmol/L (3.5-5.1) 12/22/23 11:45 Chloride 100 mmol/L (98-107) 12/22/23 11:45 Carbon Dioxide 27.0 mmol/L (21.0-32.0) 12/22/23 11:45 Anion Gap 8 (5-15) 12/22/23 11:45 BUN 17 mg/dL (7-18) 12/22/23 11:45 Creatinine 0.97 mg/dL (0.55-1.02) 12/22/23 11:45 Est GFR (MDRD) Af Amer 72 mL/min (>60) 12/22/23 11:45 Est GFR (MDRD) Non-Af 59 mL/min (>60) L 12/22/23 11:45 BUN/Creatinine Ratio 17.5 RATIO (10-20) 12/22/23 11:45 Glucose 110 mg/dL (74-106) H 12/22/23 11:45 Dosing Weight Weight used for dosin.9 kg Estimated Creatinine Clearance Estimated Creatinine Clearance: 46 ML/MIN Goal Trough Goal Trough: 15-20 mcg/mL Pharmacy Plan for Drug Dosing Pharmacy Plan for Drug Dosing: Give standard initial dose of 1000mg IV x1, then continue with 500mg IV q12h per [facility] dosing protocol. Will order a trough to be drawn before the 4th total dose. Pharmacy Service will continue to monitor and adjust dosing as required. Follow-Up Labs Follow-Up Labs: Trough: Vancomycin Date/Time Labs Ordered Labs to be done on [date and time ordered]: 12/24/23 07:30
[2023-12-23] VITALS (7 sets, daily range): BP systolic 140–154; BP diastolic 60–69; PULSE 81–100; RESP 14–18; TEMP 36.4–37.1; O2SAT 82–97
[2023-12-23 00:29] LABS: M R Staph aureus DNA By PCR Negative (Negative); Specimen Processing Control PASS
[2023-12-23 00:30] LABS: Probe Check PASS
[2023-12-23] MEDS: 0.9% Normal Saline (1000mL) 1,000 ML 150 ML IV ×4 (01:29→20:13)
[2023-12-23] MEDS: Piperacil/Tazobactam 3.375 GM in 0.9% Normal Saline (50mL MB+) 50 ML IV ×3 (05:14→20:12)
[2023-12-23] MEDS: Acetaminophen 325 MG Tablet 650 MG PO (05:14)
[2023-12-23] MEDS: oxyCODONE 5 MG Tablet PO (05:14)
--- NOTE | 2023-12-23 06:00 | MRI_ITS ---
STUDY: MRI ABDOMEN WITHOUT CONTRAST REASON FOR EXAM: Female, 78 years old. bile duct dilation Rt side abdominal pain, increase CRP, increased white count, anemia, chronic renal insuff. TECHNIQUE: Standardized fat and water weighted pulse sequences were obtained in all 3 orthogonal planes. 3-D reconstructions are included. COMPARISON: None. FINDINGS: A moderate size right pleural effusion is present with moderate right lower lobe atelectasis. A small left pleural effusion and mild basilar atelectasis is also present. A small to moderate-sized pericardial effusion is redemonstrated. Stable appearing bilateral breast implants. Interval increase and free fluid/ascites at the medial aspect of the right kidney extending now into the subhepatic space where is partially loculated measuring 3.67 cm maximally in width and 13.83 cm in the craniocaudal dimension from the undersurface of the right lobe of the liver down to the upper pelvis along side the psoas muscle. However the psoas muscle itself is not swollen or edematous. Redemonstration of a small amount of perihepatic and perisplenic ascites. Small simple cyst in the undersurface and medial aspect of the right lobe of the liver is stable and measures 2.86 cm in diameter. The liver is otherwise unremarkable. Normal gallbladder and extrahepatic biliary system. Normal spleen. Normal pancreas. Normal bilateral adrenal glands. Multicystic right kidney with mild to moderate hydronephrosis due to a recently seen obstructing stones in the proximal right ureter which are not detectable by MRI, refer back to the CT dated December 21, 2023. Normal left kidney. There is a small hiatal hernia. Normal small intestine. Normal colon. The appendix is visualized and appears normal. No aneurysm of the aorta. Normal inferior vena cava. Normal retroperitoneum. Normal abdominal wall. There are diffuse degenerative changes of the visualized lumbar spine. IMPRESSION: 1. Interval increase and free fluid/ascites at the medial aspect of the right kidney extending now into the subhepatic space where is partially loculated measuring 3.67 cm maximally in width and 13.83 cm in the craniocaudal dimension from the undersurface of the right lobe of the liver down to the upper pelvis along side the psoas muscle. However the psoas muscle itself is not swollen or edematous. Redemonstration of a small amount of perihepatic and perisplenic ascites. 2. Multicystic right kidney with mild to moderate hydronephrosis due to a recently seen obstructing stones in the proximal right ureter which are not detectable by MRI, refer back to the CT dated December 21, 2023. This fluid adjacent to the right kidney could be reactive/serous or related to rupture of one of the cysts of the right kidney. STUDY: MR CHOLANGIOPANCREATOGRAPHY (MRCP) REASON FOR EXAM: Female, 78 years old. bile duct dilation TECHNIQUE: Standard MRCP technique was utilized. 3-D reconstructions are included. COMPARISON: None. FINDINGS: Gall Bladder: Normal with no distention or demonstrated fixed intraluminal filling defect. Cystic duct: Normal with no demonstrated fixed filling defect. Intrahepatic ducts: Normal visualized intrahepatic ducts with no demonstrated fixed filling defect, dilation or stricture. Common hepatic duct: Normal with no demonstrated fixed filling defect, dilation or stricture. Common bile duct: Normal with no demonstrated fixed filling defect, dilation or stricture. Pancreatic duct: Normal with no demonstrated fixed filling defect, dilation or stricture. MRI/MRCP Abdomen without Contrast IMPRESSION: 1. Normal MR Cholangiopancreatography (MRCP). 2. There is no demonstrated biliary ductal dilatation. Electronically Signed: Jeet Cortez MD at 11:07 [facility] ,
[2023-12-23 06:25] LABS: Absolute Lymphocyte Count 0.73 X10^3/uL (0.83-4.51); Absolute Neutrophil Count 37.6 X10^3/uL (2.0-7.7); Basophil# 0.12 X10^3/uL; Basophil% 0.3 % (0-1); Eosinophil# 0.01 X10^3/uL; Hematocrit 25.1 % (37-47); Hemoglobin 7.7 g/dL (12.0-15.0); Lymphocyte # 0.73 X10^3/ul (0.83-4.51); Lymphocyte % 1.8 % (19-41); Mean Corp Hgb Conc 30.7 g/dL (32-36); Mean Corpuscular Hgb 26.2 pg (27.0-32.0); Mean Corpuscular Volume 85.4 fL (81-99); Mean Platelet Vol. 8.8 fl (6.2-12.0); Monocyte% 3.2 % (0-10); NRBC Flagged by Analyzer 0 % (0-5); Neutrophil # 37.58 X10^3/uL (2.7-7.7); Neutrophil % 92.2 % (47-70); POSITIVE COUNT YES; POSITIVE DIFFERENTIAL YES; Platelet Count 484 K/mm3 (150-450); RBC Distribution Width CV 15.9 % (11.6-14.6); RBC Distribution Width SD 49.3 fl (35.1-43.9); Red Blood Count 2.94 M/mm3 (4.2-5.4); White Blood Count 40.8 K/mm3 (4.4-11.0)
[2023-12-23 06:28] LABS: Differential Indicated SCAN CRITERIA MET
[2023-12-23 06:47] LABS: Differential Comment SCANNED
[2023-12-23 07:02] LABS: ALB/GLOB Ratio 0.4 RATIO (0.9-2.4); AST(SGOT) 18 U/L (15-37); Alanine Aminotransfer ALT/SGPT 61 U/L (13-56); Albumin, Serum 1.7 g/dL (3.2-5.0); Alkaline Phosphatase 383 U/L (45-117); Anion Gap 7 (5-15); BUN 12 mg/dL (7-18); Calcium,Total 8.4 mg/dL (8.5-10.1); Chloride 103 mmol/L (98-107); Creatinine, Serum 0.71 mg/dL (0.55-1.02); EST Glomerular Filtration Rate 85 mL/min (>60); Est Glom Filt Rate - Afr Amer 103 mL/min (>60); Estimated Creatinine Clearance 55.82 ml/min; Globulin 3.9 g/dL (2.2-4.2); Glucose 99 mg/dL (74-106); Magnesium 1.8 mg/dL (1.6-2.6); Phosphorus 4.5 mg/dL (2.5-4.9); Potassium 4.6 mmol/L (3.5-5.1); Protein, Total 5.6 g/dL (6.4-8.2); Sodium Level 134 mmol/L (136-145); Thyroid Stim Hormone (TSH) 1.73 uIU/mL (0.358-3.74)
[2023-12-23] MEDS: Albuterol 2.5 MG/3 ML VIAL.NEB. 0.630000000000000004 MG INHALATION ×2 (07:02→20:43)
[2023-12-23] MEDS: Budesonide Respules 0.5 MG/2 ML AMPUL.NEB. INHALATION ×2 (07:03→20:44)
--- NOTE | 2023-12-23 07:11 | PN.HOSP_ITS ---
Reason for Visit Reason for Visit: Diagnoses Anemia, unspecified (12/22/23) Elevated white blood cell count, unspecified (12/22/23) Thrombocytosis, unspecified (12/22/23) Pain in left shoulder (12/22/23) Unspecified hydronephrosis (12/22/23) Cyst of kidney, acquired (12/22/23) Urinary tract infection, site not specified (12/22/23) Abnormal levels of other serum enzymes (12/22/23) Subjective Subjective Still feels sick. Objective Data Objective Data Vital Signs: Vital Signs Temp Pulse Resp BP Pulse Ox O2 Del Method O2 Flow Rate 37.1 C 89 18 154/69 H 97 Nasal Cannula 1 12/23/23 03:34 12/23/23 03:34 12/23/23 03:34 12/23/23 03:34 12/23/23 03:34 12/23/23 03:34 12/23/23 03:34 Oxygen Flow Rate (L/min) 1 Oxygen Delivery Method Nasal Cannula Weight: 73.936 kg Body Mass Index (BMI) 28.8 Intake & Output: Intake and Output for Last 24 Hours 12/21/23 12/22/23 12/23/23 23:59 23:59 23:59 Intake Total 1712.0 / 1712.0 1687.5 / 1687.5 Output Total 200 / 200 Balance 1712.0 / 1712.0 1487.5 / 1487.5 Lab / Micro Data 12/23/23 06:05 12/23/23 06:05 Labs: Laboratory Results - last 24 hr 12/22/23 11:45: WBC 34.6 H*, RBC 3.13 L, Hgb 8.3 L, Hct 26.6 L, MCV 85.0, MCH 26.5 L, MCHC 31.2 L, RDW Std Deviation 49.2 H, RDW Coeff of Jovi 15.9 H, Plt Count 589 H, MPV 9.2, Immature Gran % (Auto) 1.500 H, Neut % (Auto) 90.5 H, Lymph % (Auto) 3.5 L, [place] % (Auto) 4.2, Eos % (Auto) 0.0, Baso % (Auto) 0.3, Absolute Neuts (auto) 31.3 H, Absolute Lymphs (auto) 1.21, Nucleated RBC % 0, Diff Path Review March foll, ESR 70 H, Sodium 135 L, Potassium 4.6, Chloride 100, Carbon Dioxide 27.0, Anion Gap 8, BUN 17, Creatinine 0.97, Estim Creat Clear Calc 46.00, Est GFR (MDRD) Af Amer 72, Est GFR (MDRD) Non-Af 59 L, BUN/Creatinine Ratio 17.5, Glucose 110 H, Lactic Acid 1.2, Calcium 9.5, Total Bilirubin 0.70, Direct Bilirubin 0.46 H, AST 36, ALT 97 H, Alkaline Phosphatase 499 H, C-React Prot Ext Range 275.00 H, Total Protein 6.2 L, Albumin 2.0 L, Globulin 4.2, Lipase 17, Urine Color Lisette, Urine Clarity Turbid, Urine pH 5.0, Ur Specific [place] 1.020, Urine Protein 100 H, Urine Glucose (UA) Normal, Urine Ketones 5 H, Urine Occult Blood 250 H, Urine Nitrite Negative, Urine Bilirubin Negative, Urine Urobilinogen 1 H, Ur Leukocyte Esterase 500 H, Urine RBC 25-50 SEEN, Urine WBC >100 SEEN, Ur Squamous Epith Cells 0 SEEN, Urine Bacteria 4+, Urine Mucus 0 SEEN 12/22/23 22:55: MRSA (PCR) Negative 12/23/23 06:05: WBC 40.8 H*, RBC 2.94 L, Hgb 7.7 L, Hct 25.1 L, MCV 85.4, MCH 26.2 L, MCHC 30.7 L, RDW Std Deviation 49.3 H, RDW Coeff of Jovi 15.9 H, Plt Count 484 H, MPV 8.8, Immature Gran % (Auto) 2.500 H, Neut % (Auto) 92.2 H, Lymph % (Auto) 1.8 L, [place] % (Auto) 3.2, Eos % (Auto) 0.0, Baso % (Auto) 0.3, Absolute Neuts (auto) 37.6 H, Absolute Lymphs (auto) 0.73 L, Nucleated RBC % 0, Differential Comment SCANNED, Diff Path Review March foll, Sodium 134 L, Potassium 4.6, Chloride 103, Carbon Dioxide 24.0, Anion Gap 7, BUN 12, Creatinine 0.71, Estim Creat Clear Calc 55.82, Est GFR (MDRD) Af Amer 103, Est GFR (MDRD) Non-Af 85, BUN/Creatinine Ratio 17.0, Glucose 99, Calcium 8.4 L, Phosphorus 4.5, Ma gnesium 1.8, Total Bilirubin 0.90, AST 18, ALT 61 H, Alkaline Phosphatase 383 H, Total Protein 5.6 L, Albumin 1.7 L, Globulin 3.9, Albumin/Globulin Ratio 0.4 L, TSH 1.73 Radiography Diagnostic Testing: Radiology Impression Upper Extremity CT 12/22/23 14:03 IMPRESSION: Status post left reverse shoulder replacement. There is good alignment. Degenerative changes of the acromioclavicular joint. Left basilar atelectasis. Small pericardial effusion. Electronically Signed: Yousif Hathaway MD at 14:55 EST , Physical Exam Const alert and no apparent distress HEENT head/scalp atraumatic Resp normal respiratory effort, no retractions, no use of accessory muscles and clear to auscultation bilaterally Cardio regular rate, regular rhythm, S1 normal heart sound and S2 normal heart sound GI normal to inspection, nondistended, normoactive bowel sounds, soft to palpation, non-tender and non-distended Extremity normal to inspection Neuro Sensorium / Orientation: awake and alert Assessment & Plan Assessment/Plan (1) Anemia: (2) Leukocytosis: (3) Elevated liver enzymes: (4) UTI (urinary tract infection): (5) Hydronephrosis: (6) Renal cyst: (7) Elevated serum GGT level: (8) Thrombocytosis: (9) Left shoulder pain: PLAN: Plan UTI/Pyelonephritis * Follow up cultures * on pip/tazo 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 Patient will eventually need a nephrectomy. * Patient underwent cystoscopy with right retrograde pyelogram and right stent placement on the Elevated Alk Phos and GGT. * Present on 12/14, normal AP on 11/30 * MRCP ordered * GI consult Elevated ESR/CRP * pt with infection * daily ESR/CRP not necessary Leukocytosis * has been ongoing since 11/30, normal beforehand. * Certainly due to the infection. Concern there may be chronic infection. Left shoulder pain * Remote left total shoulder arthroplasty. Pain has developed in the last week * CT shoulder negative. Chronic anemia of chronic disease * Monitor * Hemoccult pericardial effusion * check echo Chronic conditions: * History of DVT/OS-Yovihj-Cbkcjgo is not on any medication currently * Asthma-Continue home inhalers-Continue home Singulair * Hypertension-Blood pressure is normal but on the low side of normal-Will hold antihypertensives for now-As needed hydralazine available if needed and may be able to restart losartan tomorrow depending on blood pressure trends * hyperlipidemia-Continue home lovastatin * GERD-Continue home PPI * Restless leg syndrome-Continue home gabapentin * History of breast qtyhji-Otvgxc-Gkzvfgtm outpatient follow-up DVT prophylaxis-Subcu Lovenox daily CODE STATUS-Full code Charges/Coding Visit Charges Inpatient E&M: 26735 Subs Hosp L2
--- NOTE | 2023-12-23 07:22 | PCM.CONS.B ---
Consult Date of Consult: 12/23/23 Reason for Consult 78-year-old female status post cystoscopy and right stent placement for what looks like an XGP kidney infected kidney. Eventually we will have to plan for surgery to do a nephrectomy on the right side but I want a wait till she is fully recent covered and her infection is completely cleared out. Will continue to follow her.
--- NOTE | 2023-12-23 07:24 | ECHOCS_ITS ---
Reason For Study: Pericardia effusion Procedure This was a 2D Doppler, Color Flow transthoracic echocardiogram. Exam performed portable in patient room. Left Ventricle Normal LV size. The estimated ejection fraction is 55 %. No evidence for diastolic dysfunction. No regional wall motion abnormalities noted. Right Ventricle Normal RV size. Normal systolic function. Atria The left atrium is mildly enlarged. Normal right atrium. No doppler evidence for ASD. Mitral Valve There is no mitral valve stenosis. No mitral valve insufficiency. Tricuspid Valve There is no tricuspid stenosis. No tricuspid valve insufficiency. Unable to estimate RV systolic pressure due to insufficient tricuspid regurgitant envelope. Aortic Valve Trisinus/trileaflet aortic valve. Aortic sclerosis, no stenosis. There is no aortic stenosis. No aortic valve insufficiency. Pulmonic Valve There is no pulmonic valvular stenosis. No pulmonic valve insufficiency. Great Vessels Normal aortic root. Pericardium/Pleural Trivial pericardial effusion. MMode/2D Measurements & Calculations LVIDd: 5.3 cm IVSd: 1.3 cm Ao root diam: 3.3 cm LVIDs: 3.5 cm LVPWd: 1.2 cm RVDd: 3.6 cm FS: 34.0 % LAV(MOD-bp): 107.4 ml LVAd ap4: 37.6 cm2 LVAd ap2: 29.5 cm2 LAV(MOD-bp) Indexed: 60.6 ml/m2 LVLd ap4: 8.2 cm LVLd ap2: 7.4 cm LAV(MOD-sp2): 85.0 ml EDV(MOD-sp4): 145.2 ml EDV(MOD-sp2): 100.1 ml LAV(MOD-sp4): 115.2 ml EDV(sp4-el): 146.5 ml EDV(sp2-el): 99.6 ml LVAs ap4: 24.3 cm2 LVAs ap2: 17.6 cm2 LVLs ap4: 7.1 cm LVLs ap2: 5.7 cm ESV(MOD-sp4): 73.9 ml ESV(MOD-sp2): 47.4 ml ESV(sp4-el): 70.9 ml ESV(sp2-el): 46.0 ml EF(MOD-sp4): 49.1 % EF(MOD-sp2): 52.7 % EF(sp4-el): 51.6 % SV(MOD-sp4): 71.3 ml SV(MOD-sp2): 52.8 ml SV(sp4-el): 75.6 ml LA dimension(2D): 4.9 cm LA A4 area: 31.6 cm2 RA A4 area: 16.9 cm2 TAPSE: 2.2 cm Doppler Measurements & Calculations MV E max santy: 92.9 cm/sec Lat Peak E' Santy: 8.6 cm/sec Med Peak E' Santy: 6.5 cm/sec MV A max santy: 116.0 cm/sec E/E' lat: 10.8 E/E' med: 14.3 MV E/A: 0.80 Ao V2 max: 176.8 cm/sec LV V1 max: 128.9 cm/sec PA V2 max: 106.9 cm/sec Ao max P.5 mmHg LV V1 max P.6 mmHg TR max santy: 285.7 cm/sec TR max P.6 mmHg ECHO/Echo Complete W/ Contrast Interpretation Summary The estimated ejection fraction is 55 %. No evidence for diastolic dysfunction. The left atrium is mildly enlarged. Trivial pericardial effusion. Ordering Physician: Thanh John Referring Physician: Jessica Tanner M.D. Performed By: ePtra Short RDCS
[2023-12-23] MEDS: Vancomycin IV 500 MG/100 ML BAG 100 MG IV ×2 (08:30→20:06)
--- NOTE | 2023-12-23 10:07 | CASEMGMT ---
SASKIA BROOKS Assessment Face to Face with patient for initial transition planning/care coordination assessment. SASKIA BROOKS introduced self and role at [facility], pt voices understanding. Pt is A&Ox4 and is resting comfortably in bed and is calm. Care providers, pharmacy, and demographics verified. Admitting dx: Abnormal labs LACE Strata: 2 PCP: Ciro Specialists: Inez, Friend, Marcin Preferred Pharmacy: [facility] Insurance: [employer] [facility] Prescription Benefit: Yes LNOK: Aron Hawthorne (H) Living Arrangements: Pt lives with her in a 2 story home with a BM with HR and 3 steps to enter the home without HR and no issues entering. ADLs/IADLs: Ind with ADLs. helps with IADLs and the pt states she has a cleaning lady come every 2 weeks Transportation: Pt DME: Cane and walker at home but does not use. Walk in shower with chair and GB. Pulse Ox. Pt uses a CPAP at night with no additional oxygen. Pt is on O2 currently. A verbal local list of in-network DME companies provided to the pt and pt chose [employer] for any potential home o2 needs. HHC/SNF: Denies history or needs. Pt?s goal: Home with Plan: TBD. Pt 6-click is 19 now. PT/OT eval pending. Pt states that she wants to wait and see how she does to better evaluate her DC needs. CM to follow for DC qualifications. Amber Pineda RN, CM
[2023-12-23] MEDS: 0.9% Saline Lock 10 ML Syringe IV ×2 (11:47→20:07)
[2023-12-23] MEDS: HYDROmorphone 0.5 MG/0.5 ML SYRINGE IV (11:47)
[2023-12-23 12:56] LABS: Pathologist Review Reviewed
[2023-12-23 12:59] LABS: Pathologist Review Reviewed
[2023-12-23] MEDS: Enoxaparin 40 MG/0.4 ML Syringe SC (13:47)
[2023-12-23] MEDS: Calcium (Elemental) 500 MG Tablet PO (13:47)
[2023-12-23] MEDS: Citalopram 20 MG Tablet PO (13:48)
[2023-12-23] MEDS: Montelukast 10 MG Tablet PO (13:48)
[2023-12-23] MEDS: Pantoprazole Sodium 40 MG Tablet PO (13:48)
[2023-12-23] MEDS: buPROPion (SR) 150 MG Tablet.SA PO ×2 (13:48→20:31)
[2023-12-23] MEDS: Gabapentin 100 MG Capsule 200 MG PO ×2 (13:49→20:32)
--- NOTE | 2023-12-23 17:03 | PN.GI_ITS ---
Subjective Subjective Patient denies any pain at this time. Denies any nausea, vomiting or diarrhea. She denies any dark stools. She is status post ureteral stent placement for right-sided hydronephrosis and urosepsis. Objective Data Objective Data Vital Signs: Vital Signs Temp Pulse Resp BP Pulse Ox O2 Del Method O2 Flow Rate 97.5 F L 81 18 140/61 H 95 Room Air 2 12/23/23 14:02 12/23/23 14:02 12/23/23 14:02 12/23/23 14:02 12/23/23 14:02 12/23/23 14:02 12/23/23 12:54 Oxygen Flow Rate (L/min) 2 Oxygen Delivery Method Room Air Weight: 163 lb Body Mass Index (BMI) 28.8 Intake & Output: Intake and Output for Last 24 Hours 12/21/23 12/22/23 12/23/23 23:59 23:59 23:59 Intake Total 1712.0 / 1712.0 2837.5 / 2837.5 Output Total 600 / 600 Balance 1712.0 / 1712.0 2237.5 / 2237.5 Lab / Micro Data 12/23/23 06:05 12/23/23 06:05 Labs: Laboratory Results - last 24 hr 12/22/23 11:45: Diff Path Review Reviewed 12/22/23 22:55: MRSA (PCR) Negative 12/23/23 06:05: WBC 40.8 H*, RBC 2.94 L, Hgb 7.7 L, Hct 25.1 L, MCV 85.4, MCH 26.2 L, MCHC 30.7 L, RDW Std Deviation 49.3 H, RDW Coeff of Jovi 15.9 H, Plt Count 484 H, MPV 8.8, Immature Gran % (Auto) 2.500 H, Neut % (Auto) 92.2 H, Lymph % (Auto) 1.8 L, [place] % (Auto) 3.2, Eos % (Auto) 0.0, Baso % (Auto) 0.3, Absolute Neuts (auto) 37.6 H, Absolute Lymphs (auto) 0.73 L, Nucleated RBC % 0, Differential Comment SCANNED, Diff Path Review Reviewed, Sodium 134 L, Potassium 4.6, Chloride 103, Carbon Dioxide 24.0, Anion Gap 7, BUN 12, Creatinine 0.71, Estim Creat Clear Calc 55.82, Est GFR (MDRD) Af Amer 103, Est GFR (MDRD) Non-Af 85, BUN/Creatinine Ratio 17.0, Glucose 99, Calcium 8.4 L, Phosphorus 4.5, Magnesium 1.8, Total Bilirubin 0.90, AST 18, ALT 61 H, Alkaline Phosphatase 383 H, Total Protein 5.6 L, Albumin 1.7 L, Globulin 3.9, Albumin/Globulin Ratio 0.4 L, TSH 1.73 Micro: Microbiology 12/22/23 11:45 Urine, Clean Catch Urine Culture - Preliminary Gram negative katja Radiography Diagnostic Testing: Radiology Impression MRCP 12/23/23 06:00 IMPRESSION: 1. Normal MR Cholangiopancreatography (MRCP). 2. There is no demonstrated biliary ductal dilatation. Electronically Signed: Jeet Cortez MD at 11:07 EST Reading Location ID and State: [address] [place] [address] , Service support , Echocardiogram 12/23/23 07:24 Interpretation Summary The estimated ejection fraction is 55 %. No evidence for diastolic dysfunction. The left atrium is mildly enlarged. Trivial pericardial effusion. Ordering Physician: Thanh John Referring Physician: Jessica Tanner M.D. Performed By: Petra Short RDCS Physical Exam Const alert and no apparent distress HEENT head/scalp atraumatic Resp normal respiratory effort, no retractions, no use of accessory muscles and clear to auscultation bilaterally Cardio regular rate, regular rhythm, S1 normal heart sound and S2 normal heart sound GI normal to inspection, nondistended, normoactive bowel sounds, soft to palpation, non-tender and non-distended Extremity normal to inspection Neuro Sensorium / Orientation: awake and alert Assessment & Plan Assessment/Plan (1) Anemia: (2) Leukocytosis: (3) Elevated liver enzymes: (4) UTI (urinary tract infection): (5) Hydronephrosis: (6) Renal cyst: (7) Elevated serum GGT level: (8) Thrombocytosis: (9) Left shoulder pain: PLAN: Plan 78-year-old or urosepsis secondary to hydronephrosis and pyelonephritis was also discovered to have increased LFTs -MRCP did not show any signs of obstructive disease or cholangiopathy -I do not think her LFTs are secondary to any hepatobiliary process. -Her LFTs are trending down -No plan for liver biopsy or endoscopic intervention at this time. Charges/Coding Visit Charges Inpatient E&M: 31762 [facility] Hosp L3
[2023-12-23] MEDS: MELATONIN 3 MG TABLET PO (20:30)
[2023-12-23] MEDS: DiphenhydrAMINE 25 MG Capsule PO (20:31)
[2023-12-23] MEDS: Acetaminophen 500 MG Tablet PO (20:32)
[2023-12-23] MEDS: Atorvastatin Calcium 10 MG Tablet 5 MG PO (20:32)
--- NOTE | 2023-12-23 22:15 | RAD_ITS ---
STUDY: X-RAY CHEST REASON FOR EXAM: Female, 78 years old. rales TECHNIQUE: Single AP portable view of the chest. COMPARISON: 12/20/2023 FINDINGS: Patchy alveolar opacities in the lower aspect of both lungs consistent with bibasilar atelectasis or pneumonia. There is no demonstrated pleural abnormality. There is moderate cardiac enlargement. Normal mediastinum and ester. Normal visualized pulmonary arteries. Normal visualized aortic arch and descending thoracic aorta. Normal visualized thoracic spine. Status post left shoulder reverse arthroplasty. There is no demonstrated abnormality of the visualized soft tissue structures of the upper abdomen. RAD/Chest 1 View (Portable) IMPRESSION: Bibasilar atelectasis or pneumonia. Cardiomegaly. Electronically Signed: Kyle Terrazas MD at 22:47 EST ,
[2023-12-23] MEDS: Furosemide 40 MG/4 ML Vial IV (22:53)
[2023-12-23 23:09] LABS: BNP,B-Type NATRIURETIC PEPTIDE 369.9 pg/mL (0-100)
[2023-12-24] VITALS (9 sets, daily range): BP systolic 134–156; BP diastolic 47–67; PULSE 81–102; RESP 16–22; TEMP 36.6–37.2; O2SAT 93–98
[2023-12-24] MEDS: 0.9% Saline Lock 10 ML Syringe IV (04:42)
[2023-12-24] MEDS: Piperacil/Tazobactam 3.375 GM in 0.9% Normal Saline (50mL MB+) 50 ML IV ×3 (04:45→20:59)
--- NOTE | 2023-12-24 06:47 | PN.HOSP_ITS ---
Reason for Visit Reason for Visit: Diagnoses Anemia, unspecified (12/22/23) Elevated white blood cell count, unspecified (12/22/23) Thrombocytosis, unspecified (12/22/23) Pain in left shoulder (12/22/23) Unspecified hydronephrosis (12/22/23) Cyst of kidney, acquired (12/22/23) Urinary tract infection, site not specified (12/22/23) Abnormal levels of other serum enzymes (12/22/23) Subjective Subjective Feels tired. Objective Data Objective Data Vital Signs: Vital Signs Temp Pulse Resp BP Pulse Ox O2 Del Method O2 Flow Rate 36.6 C 89 22 H 155/60 H 96 Nasal Cannula 2 12/24/23 04:32 12/24/23 04:32 12/24/23 04:32 12/24/23 04:32 12/24/23 04:32 12/24/23 04:35 12/24/23 04:35 Oxygen Flow Rate (L/min) 2 Oxygen Delivery Method Nasal Cannula Weight: 73.936 kg Body Mass Index (BMI) 28.8 Intake & Output: Intake and Output for Last 24 Hours 12/22/23 12/23/23 12/24/23 23:59 23:59 23:59 Intake Total 1712.0 / 1712.0 4760.0 / 4760.0 93.43 / 93.43 Output Total 900 / 900 1900 / 1900 Balance 1712.0 / 1712.0 3860.0 / 3860.0 -1806.57 / -1806.57 Lab / Micro Data 12/24/23 07:40 12/24/23 07:40 Labs: Laboratory Results - last 24 hr 12/22/23 11:45: Diff Path Review Reviewed 12/23/23 06:05: Differential Comment SCANNED, Diff Path Review Reviewed, Sodium 134 L, Potassium 4.6, Chloride 103, Carbon Dioxide 24.0, Anion Gap 7, BUN 12, Creatinine 0.71, Estim Creat Clear Calc 55.82, Est GFR (MDRD) Af Amer 103, Est GFR (MDRD) Non-Af 85, BUN/Creatinine Ratio 17.0, Glucose 99, Calcium 8.4 L, Phosphorus 4.5, Magnesium 1.8, Total Bilirubin 0.90, AST 18, ALT 61 H, Alkaline Phosphatase 383 H, Total Protein 5.6 L, Albumin 1.7 L, Globulin 3.9, Albumin/Globulin Ratio 0.4 L, TSH 1.73 12/23/23 22:22: B-Natriuretic Peptide 369.9 H Micro: Microbiology 12/22/23 11:45 Urine, Clean Catch Urine Culture - Preliminary Gram negative katja Radiography Diagnostic Testing: Radiology Impression MRCP 12/23/23 06:00 IMPRESSION: 1. Normal MR Cholangiopancreatography (MRCP). 2. There is no demonstrated biliary ductal dilatation. Electronically Signed: Jeet Cortez MD at 11:07 EST , Echocardiogram 12/23/23 07:24 Interpretation Summary The estimated ejection fraction is 55 %. No evidence for diastolic dysfunction. The left atrium is mildly enlarged. Trivial pericardial effusion. Ordering Physician: Thanh John Referring Physician: Jessica Tanner M.D. Performed By: Petra Short RDCS Chest X-Ray 12/23/23 22:15 IMPRESSION: Bibasilar atelectasis or pneumonia. Cardiomegaly. Electronically Signed: Kyle Terrazas MD at 22:47 EST , Physical Exam Const alert and no apparent distress HEENT head/scalp atraumatic and moist oral mucous membranes Resp normal respiratory effort, no retractions, no use of accessory muscles and clear to auscultation bilaterally Cardio regular rate, regular rhythm, S1 normal heart sound and S2 normal heart sound GI normal to inspection, nondistended, normoactive bowel sounds, soft to palpation, non-tender and non-distended Neuro Sensorium / Orientation: awake and alert Assessment & Plan Assessment/Plan (1) Anemia: (2) Leukocytosis: (3) Elevated liver enzymes: (4) UTI (urinary tract infection): (5) Hydronephrosis: (6) Renal cyst: (7) Elevated serum GGT level: (8) Thrombocytosis: (9) Left shoulder pain: PLAN: Plan UTI/Pyelonephritis * Follow up cultures * on pip/tazo Right hydronephrosis/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 Patient will eventually need a right nephrectomy. * Patient underwent cystoscopy with right retrograde pyelogram and right stent placement on the * DW Dr. Hernandez he is concerned that this is a developing into a perinephric abscess abutting additional organs and possible other tissue. He feels that the complexity of a right-sided nephrectomy with his son morphology is too complex for this institution and recommended transfer to a tertiary facility. I have reached out to [facility] as well as [facility] and awaiting on approval. Elevated Alk Phos and GGT. * Present on 12/14, normal AP on 11/30. Since trending down. * MRCP negative * GI consulted. No plans for biopsy. * I suspect related with underling infection. Elevated ESR/CRP * pt with clear infection * no additional work up at this time. Leukocytosis * has been ongoing since 11/30, normal beforehand. * Certainly due to the infection. Concern there may be chronic infection. Left shoulder pain * Remote left total shoulder arthroplasty. Pain has developed in the last week * CT shoulder negative. Chronic anemia of chronic disease * Monitor * Hemoccult pericardial effusion * noted on CT. * Echo shows an EF 55% with trivial pericardial effusion. Chronic conditions: * History of DVT/MP-Orhufv-Bzoegro is not on any medication currently * Asthma-Continue home inhalers-Continue home Singulair * Hypertension-Blood pressure is normal but on the low side of normal-Will hold antihypertensives for now-As needed hydralazine available if needed and may be able to restart losartan tomorrow depending on blood pressure trends * hyperlipidemia-Continue home lovastatin * GERD-Continue home PPI * Restless leg syndrome-Continue home gabapentin * History of breast tgittf-Itoldx-Lliwxrcl outpatient follow-up DVT prophylaxis-Subcu Lovenox daily CODE STATUS-Full code Greater than 60 minutes of which greater than 50% time was discussing with u delbert at their recommendations, discussing with the patient and family about the need to transfer as well as discussing with outside hospitals in regards to facilitating transfer. Charges/Coding Visit Charges Inpatient E&M: 47792 Subs Hosp L3
[2023-12-24] MEDS: Albuterol 2.5 MG/3 ML VIAL.NEB. 0.630000000000000004 MG INHALATION ×2 (07:23→18:55)
[2023-12-24] MEDS: Budesonide Respules 0.5 MG/2 ML AMPUL.NEB. INHALATION ×2 (07:25→18:55)
[2023-12-24 08:05] LABS: Absolute Neutrophil Count 38.3 X10^3/uL (2.0-7.7); Basophil# 0.13 X10^3/uL; Basophil% 0.3 % (0-1); Eosinophil# 0.03 X10^3/uL; Eosinophils% 0.1 % (0-5); Hemoglobin 7.6 g/dL (12.0-15.0); Lymphocyte % 2.8 % (19-41); Mean Corp Hgb Conc 30.4 g/dL (32-36); Mean Corpuscular Hgb 26.1 pg (27.0-32.0); Mean Corpuscular Volume 85.9 fL (81-99); Mean Platelet Vol. 9.1 fl (6.2-12.0); Monocyte# 1.37 X10^3/uL; Monocyte% 3.2 % (0-10); NRBC Flagged by Analyzer 0 % (0-5); Neutrophil # 38.33 X10^3/uL (2.7-7.7); Neutrophil % 90.9 % (47-70); POSITIVE COUNT YES; POSITIVE DIFFERENTIAL YES; Platelet Count 480 K/mm3 (150-450); RBC Distribution Width CV 15.9 % (11.6-14.6); RBC Distribution Width SD 49.6 fl (35.1-43.9); Red Blood Count 2.91 M/mm3 (4.2-5.4); White Blood Count 42.2 K/mm3 (4.4-11.0)
[2023-12-24 08:20] LABS: Differential Indicated SCAN CRITERIA MET
[2023-12-24] MEDS: Enoxaparin 40 MG/0.4 ML Syringe SC (08:36)
[2023-12-24 08:37] LABS: ALB/GLOB Ratio 0.4 RATIO (0.9-2.4); AST(SGOT) 12 U/L (15-37); Alanine Aminotransfer ALT/SGPT 41 U/L (13-56); Albumin, Serum 1.7 g/dL (3.2-5.0); Alkaline Phosphatase 326 U/L (45-117); Anion Gap 9 (5-15); BUN 11 mg/dL (7-18); BUN/Creat Ratio 13.8 RATIO (10-20); Chloride 99 mmol/L (98-107); EST Glomerular Filtration Rate 74 mL/min (>60); Est Glom Filt Rate - Afr Amer 90 mL/min (>60); Estimated Creatinine Clearance 55.82 ml/min; Glucose 112 mg/dL (74-106); Potassium 3.4 mmol/L (3.5-5.1); Protein, Total 5.7 g/dL (6.4-8.2); Sodium Level 134 mmol/L (136-145)
[2023-12-24] MEDS: Pantoprazole Sodium 40 MG Tablet PO (08:37)
[2023-12-24] MEDS: Gabapentin 100 MG Capsule 200 MG PO ×2 (08:37→21:19)
[2023-12-24] MEDS: Citalopram 20 MG Tablet PO (08:37)
[2023-12-24] MEDS: Calcium (Elemental) 500 MG Tablet PO ×2 (08:37→16:43)
[2023-12-24] MEDS: Acetaminophen 325 MG Tablet 650 MG PO ×3 (08:37→23:07)
[2023-12-24] MEDS: Montelukast 10 MG Tablet PO (08:37)
[2023-12-24] MEDS: buPROPion (SR) 150 MG Tablet.SA PO ×2 (08:37→21:18)
[2023-12-24] MEDS: guaiFENesin 10 ML UDC (200MG/10ML) 20 ML PO (08:38)
[2023-12-24] MEDS: Ondansetron 4 MG/2 ML Vial IV (08:38)
[2023-12-24 08:56] LABS: Vancomycin, Trough Level 11.3 ug/mL (5.0-15.0)
--- NOTE | 2023-12-24 09:22 | PCM.RX.CS ---
Consult Antibiotic Management Pharmacy has been consulted to manage selected antibiotic: Vancomycin Type of Intervention Type of Consult: Follow-up Prior Doses of Antibiotics Prior Doses of Antibiotics Received/Current Regimen: Presently on 500mg iv q12h. Labs Labs: Sodium 134 mmol/L (136-145) L 12/24/23 07:40 Potassium 3.4 mmol/L (3.5-5.1) L 12/24/23 07:40 Chloride 99 mmol/L (98-107) 12/24/23 07:40 Carbon Dioxide 26.0 mmol/L (21.0-32.0) 12/24/23 07:40 Anion Gap 9 (5-15) 12/24/23 07:40 BUN 11 mg/dL (7-18) 12/24/23 07:40 Creatinine 0.80 mg/dL (0.55-1.02) 12/24/23 07:40 Est GFR (MDRD) Af Amer 90 mL/min (>60) 12/24/23 07:40 Est GFR (MDRD) Non-Af 74 mL/min (>60) 12/24/23 07:40 BUN/Creatinine Ratio 13.8 RATIO (10-20) 12/24/23 07:40 Glucose 112 mg/dL (74-106) H 12/24/23 07:40 Vancomycin Trough 11.3 ug/mL (5.0-15.0) 12/24/23 07:40 Microbiology Microbiology: Microbiology 12/22/23 11:45 Urine, Clean Catch Urine Culture - Final Escherichia coli Dosing Weight Weight used for dosin.9 kg Estimated Creatinine Clearance Estimated Creatinine Clearance: 56ml/min Goal Trough Goal Trough: 15-20 mcg/mL Pharmacy Plan for Drug Dosing Pharmacy Plan for Drug Dosing: Trough today sub-therapeutic at 11.3. Recommend an increase to 750mg iv q12h starting this A.M. New trough level before 4th dose of new dosing. Pharmacy Service will continue to monitor and adjust dosing as required. Follow-Up Labs Follow-Up Labs: Trough: Vancomycin (12.25.24 @2130)
[2023-12-24] MEDS: Vancomycin HCl 750 MG in 0.9% Normal Saline (250mL Bag) 250 ML 250 MG IV ×2 (10:17→20:58)
--- NOTE | 2023-12-24 10:38 | PCM.CONS.B ---
Consult Date of Consult: 12/24/23 Reason for Consult 78-year-old female presents to the hospital with a xanthogranulomatous right kidney severely infected, status post stent placement but her white blood count still keeps rising higher she is very tender in the right upper quadrant. I reviewed her recent MRI and it looks like she is Developing a perinephric abscess it looks like it adherent to the liver and prior to the duodenum speak with the hospitalist regarding her best care possible I think she needs to be transferred to a tertiary care center probably will need to have a nephrectomy done on the right side for XGP kidney. Spoke to the patient and her family they are agreeing with tract they are agreeable with getting transferred for further care given that the kidney continues to get infected and is not getting better after the stent and I will be a very difficult nephrectomy.
--- NOTE | 2023-12-24 10:42 | CASEMGMT ---
Insurance review for hospitals In-network with?[employer] M[employer] insurance if transfer is recommended is as follows:?[facility], [place], [facility], [facility], [facility], [facility], [place], [facility], and . Kirsten Hampton, Discharge Planning Asst.
[2023-12-24] MEDS: Atorvastatin Calcium 10 MG Tablet 5 MG PO (21:18)
[2023-12-24] MEDS: Acetaminophen 500 MG Tablet PO (21:18)
[2023-12-24] MEDS: DiphenhydrAMINE 25 MG Capsule PO (21:19)
[2023-12-24] MEDS: MELATONIN 3 MG TABLET PO (23:06)
[2023-12-25] MEDS: 0.9% Saline Lock 10 ML Syringe IV (00:59)
[2023-12-25 01:00] VITALS: BP 135/56; PULSE 89; RESP 22; TEMP 36.7; O2SAT 95
--- NOTE | 2023-12-25 08:45 | DS.PCM_ITS ---
Providers Date of Admission: 12/22/23 Primary Care Physician: Dr. Jessica Tanner, DO Consultations 12/22/23 15:03 Consult: Urology Routine Consulting Provider: Fredi Hernandez Reason for Consult: infected kidney EMERGENT Consult: Yes MD Notified: Yes Date Notified: 12/22/23 Time Notified: 15:03 Method of Notification: ED Physician Initiated 12/22/23 16:53 Consult: Gastroenterology Routine Consulting Provider: [facility] Reason for Consult: Elevated Alk Phos EMERGENT Consult: No MD Notified: Yes Date Notified: 12/22/23 Time Notified: 13:40 Method of Notification: ED Physician Initiated Consult: Urology Routine Consulting Provider: Fredi Hernandez Reason for Consult: R hydro EMERGENT Consult: No Notified: Yes Date Notified: 12/22/23 Time Notified: 13:38 Method of Notification: ED Physician Initiated Reason For Visit: ABNORMAL LABS Diagnosis Discharge Diagnosis (1) Anemia: Status: Acute Code(s): D64.9 - Anemia, unspecified (2) Leukocytosis: Status: Acute Code(s): D72.829 - Elevated white blood cell count, unspecified (3) Elevated liver enzymes: Status: Acute Code(s): R74.8 - Abnormal levels of other serum enzymes (4) UTI (urinary tract infection): Status: Acute Code(s): N39.0 - Urinary tract infection, site not specified (5) Hydronephrosis: Status: Acute Code(s): N13.30 - Unspecified hydronephrosis (6) Renal cyst: Status: Acute Code(s): N28.1 - Cyst of kidney, acquired (7) Elevated serum GGT level: Status: Acute Code(s): R74.8 - Abnormal levels of other serum enzymes (8) Thrombocytosis: Status: Acute Code(s): D75.839 - Thrombocytosis, unspecified (9) Left shoulder pain: Status: Acute Code(s): M25.512 - Pain in left shoulder Plan UTI/Pyelonephritis * Follow up cultures * on pip/tazo Right hydronephrosis/hydroureter * [place]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 Patient will eventually need a right nephrectomy. * Patient underwent cystoscopy with right retrograde pyelogram and right stent placement on the * DW Dr. Hernandez he is concerned that this is a developing into a perinephric abscess abutting additional organs and possible other tissue. He feels that the complexity of a right-sided nephrectomy with his son morphology is too complex for this institution and recommended transfer to a tertiary facility. I woke with the urologist at [facility] and declined. Also reached out to [facility] and is also declined. Notified Dr. Hernandez. He reached out to [facility] spoke with urologist. Patient was excepted as the patient would require interventional radiology to drain the kidney. Patient would be transferred to [facility] in [place]. I did discuss the case with Dr. Monroy on the . Patient was transferred there earlier this morning. Elevated Alk Phos and GGT. * Present on 12/14, normal AP on 11/30. Since trending down. * MRCP negative * GI consulted. No plans for biopsy. * I suspect related with underling infection. Elevated ESR/CRP * pt with clear infection * no additional work up at this time. Leukocytosis * has been ongoing since 11/30, normal beforehand. * Certainly due to the infection. Concern there may be chronic infection. Left shoulder pain * Remote left total shoulder arthroplasty. Pain has developed in the last week * CT shoulder negative. Chronic anemia of chronic disease * Monitor * Hemoccult pericardial effusion * noted on CT. * Echo shows an EF 55% with trivial pericardial effusion. Chronic conditions: * History of DVT/XJ-Dynwoi-Umtzhdl is not on any medication currently * Asthma-Continue home inhalers-Continue home Singulair * Hypertension-Blood pressure is normal but on the low side of normal-Will hold antihypertensives for now-As needed hydralazine available if needed and may be able to restart losartan tomorrow depending on blood pressure trends * hyperlipidemia-Continue home lovastatin * GERD-Continue home PPI * Restless leg syndrome-Continue home gabapentin * History of breast kzffwa-Wnitxq-Xffpamvu outpatient follow-up DVT prophylaxis-Subcu Lovenox daily CODE STATUS-Full code Greater than 60 minutes of which greater than 50% time was discussing with urology at their recommendations, discussing with the patient and family about the need to transfer as well as discussing with outside hospitals in regards to facilitating transfer. Medications at Discharge Home Medications Cinnamon 2 capsule PO BID 10/29/18 citalopram 20 mg tablet 20 mg PO DAILY 10/29/18 lovastatin 20 mg tablet 20 mg PO DAILY 10/29/18 diphenhydramine 25 mg-acetaminophen 500 mg tablet (Tylenol PM Extra Strength) 1 tab PO QHS insomnia 06/10/22 bupropion HCl 150 mg 24 hr tablet, extended release 150 mg PO BID 09/23/23 calcium carbonate 600 mg calcium (1,500 mg) tablet 600 mg PO BID 09/23/23 fluticasone furoate 200 mcg/actuation blister powder for inhalation (Arnuity Ellipta) 1 inh inhalation DAILY 09/23/23 gabapentin 100 mg capsule 200 mg PO BID 09/23/23 losartan 25 mg tablet 12.5 mg PO DAILY 09/23/23 montelukast 10 mg tablet (Singulair) 10 mg PO DAILY 09/23/23 omeprazole 20 mg capsule,delayed release 20 mg PO DAILY 09/23/23 omeprazole 40 mg capsule,delayed release 40 mg PO DAILY 09/23/23 vitamin E mixed 400 unit capsule 400 unit PO DAILY 09/23/23 albuterol sulfate 0.63 mg/3 mL solution for nebulization 0.63 mg inhalation TID 12/20/23 Weight / BMI Weight Weight: 73.936 kg Body Mass Index (BMI) 28.8 ABG / Lab / Microbiology Data 12/24/23 07:40 12/24/23 07:40 Laboratory: Laboratory Results - last 24 hr 12/24/23 07:40: Vancomycin Trough 11.3 Microbiology: Microbiology 12/22/23 13:55 Blood Culture (Wb) - Anticubital Right Blood Culture - Preliminary No growth in 48 hours. 12/22/23 13:50 Blood Culture (Wb) - Anticubital Left Blood Culture - Preliminary No growth in 48 hours. 12/22/23 11:45 Urine, Clean Catch Urine Culture - Final Escherichia coli Meaningful Use Info Meaningful Use Diagnoses (Choose all that apply): None applicable Discharge Plan Admission Admit Date/Time: 12/22/23 13:36 Attending Provider: Thanh John Primary Care Provider: Jessica Tanner Consulting Providers: Fredi Hernandez; Blanca Bowen Discharge Orders/Prescriptions Prescriptions: No Action diphenhydramine-acetaminophen [Tylenol PM Extra Strength] 25-500 mg tablet 1 tab PO QHS bupropion HCl 150 mg tablet extended release 24 hr 150 mg PO BID losartan 25 mg tablet 12.5 mg PO DAILY gabapentin 100 mg capsule 200 mg PO BID calcium carbonate 600 mg calcium (1,500 mg) tablet 600 mg PO BID omeprazole 40 mg capsule,delayed release(DR/EC) 40 mg PO DAILY vitamin E mixed 400 unit capsule 400 unit PO DAILY montelukast [Singulair] 10 mg tablet 10 mg PO DAILY Arnuity Ellipta 200 mcg/actuation blister with device 1 inh inhalation DAILY albuterol sulfate 0.63 mg/3 mL solution for nebulization 0.63 mg inhalation TID citalopram 20 MG tablet 20 mg PO DAILY lovastatin 20 MG tablet 20 mg PO DAILY Cinnamon 2 capsule PO BID Rx Instructions: UNSURE OF DOSE omeprazole 20 mg capsule,delayed release(DR/EC) 20 mg PO DAILY Referrals / Follow Up: Jessica Tanner DO [Primary Care Provider] - Disposition Disposition (needs filled in before D/C Order can be placed): [facility]
[2023-12-28 10:15] LABS: Pathologist Review Reviewed
== END 2023-12-25 01:04 | disposition short-term general hospital (02) | DRG 660 ==
LOC: ED 13:42 → MS3 13:56
PROVIDERS: Internal Medicine; Urology; Admitting Provider Internal Medicine; Emergency Provider Emergency Medicine; PCP Internal Medicine
PROC: 0T738DZ Dilation of Right Kidney Pelvis with Intraluminal Device, Via Natural or Artificial Opening Endoscopic (ICD-10-PCS; principal; 2023-12-22 14:20)
DX: N13.6 Pyonephrosis (principal); I31.39 Other pericardial effusion (noninflammatory); K76.0 Fatty (change of) liver, not elsewhere classified; N18.30 Chronic kidney disease, stage 3 unspecified; I12.9 Hypertensive chronic kidney disease with stage 1 through stage 4 chronic kidney disease, or unspecified chronic kidney disease; G25.81 Restless legs syndrome; J45.909 Unspecified asthma, uncomplicated; D50.9 Iron deficiency anemia, unspecified; K21.9 Gastro-esophageal reflux disease without esophagitis; M25.512 Pain in left shoulder; E78.49 Other hyperlipidemia; D63.8 Anemia in other chronic diseases classified elsewhere; E78.5 Hyperlipidemia, unspecified; N28.1 Cyst of kidney, acquired; N12 Tubulo-interstitial nephritis, not specified as acute or chronic; Z85.3 Personal history of malignant neoplasm of breast; Z86.718 Personal history of other venous thrombosis and embolism; Z86.711 Personal history of pulmonary embolism
CPT/HCPCS: 36415; 71045; 71046; 73201; 74177; 74181; 76000; 80048; 80053; 80074; 80076; 80202; 81001; 82728; 82977; 83540; 83550; 83605; 83615; 83690; 83735; 83880; 84100; 84443; 85025; 85045; 85652; 86140; 87040; 87077; 87086; 87088; 87186; 87641; 93306; 94640; 94668; 94762; 97162; 97166; 97530; 97802; 99252; 99284; J7030; J7040; J7050; J7120; Q9957; Q9967; A4216; C1769; C1874; C8929; G0463; J1940; J2405

== ENCOUNTER → 2024-02-07 | Outpatient (CLI) | payer MEDICARE, SELFPAY ==
--- NOTE | 2024-02-07 13:00 | RAD_ITS ---
STUDY: X-RAY CHEST REASON FOR EXAM: Female, 78 years old. Cough. TECHNIQUE: Frontal and lateral views of the chest. COMPARISON: 12/23/2023 FINDINGS: Stable cardiomegaly, aortic tortuosity, hyperinflation, mild diffuse interstitial prominence and moderate-sized right pleural effusion. Stable scarring of the right upper lobe. Stable mild diffuse thoracic spondylosis. Left shoulder arthroplasty unchanged. No abnormality of the visualized soft tissue structures of the upper abdomen. RAD/Chest PA and Lateral IMPRESSION: Stable chest with no acute superimposed findings since the prior study. Electronically Signed: Reddy Branch MD at 13:35 EDT ,
== END | disposition home or self-care (01) ==
PROVIDERS: PCP Internal Medicine; Referring Provider Internal Medicine Pulmonary Disease; Visit Provider Internal Medicine Pulmonary Disease
DX: U07.1 COVID-19 (principal); R05.9 Cough, unspecified
CPT/HCPCS: 71046

== ENCOUNTER → 2024-02-18 | Outpatient (CLI) | payer MEDICARE, SELFPAY ==
--- NOTE | 2024-02-18 14:58 | RAD_ITS ---
STUDY: X-RAY CHEST REASON FOR EXAM: Female, 78 years old. SOB TECHNIQUE: Bilateral decubitus views. COMPARISON: Comparison is made with prior study dated February 07, 2024. FINDINGS: Small right pleural effusion. No left pleural effusion. Status post left shoulder replacement. RAD/Chest PA and Lateral IMPRESSION: Small right pleural effusion. Electronically Signed: Yousif Hathaway MD at 15:20 EDT ,
== END | disposition home or self-care (01) ==
LOC: RAD 14:51
PROVIDERS: PCP Internal Medicine; Referring Provider Internal Medicine Pulmonary Disease; Visit Provider Internal Medicine Pulmonary Disease
DX: R06.02 Shortness of breath (principal); R05.9 Cough, unspecified
CPT/HCPCS: 71046

== ENCOUNTER 2024-02-22 07:41 | Outpatient (CLI) | payer MEDICARE, SELFPAY ==
--- NOTE | 2024-02-22 07:46 | US_ITS ---
STUDY: SUPERFICIAL ULTRASOUND - RIGHT PLEURAL EFFUSION. REASON FOR EXAM: Female, 78 years old. PLEURAL EFFUSION TECHNIQUE: A superficial ultrasound was performed with real-time and static garces-scale imaging. COMPARISON: None. FINDINGS: Small right pleural effusion. Too small for safe thoracentesis. US/Chest IMPRESSION: Not enough fluid for safe thoracentesis. Electronically Signed: Yousif Hathaway MD at 8:32 EDT ,
== END 2024-02-22 23:59 | disposition home or self-care (01) ==
LOC: US 07:44
PROVIDERS: PCP Internal Medicine; Referring Provider Internal Medicine Pulmonary Disease; Visit Provider Internal Medicine Pulmonary Disease
DX: J45.991 Cough variant asthma (principal); J91.8 Pleural effusion in other conditions classified elsewhere
CPT/HCPCS: 76604

== ENCOUNTER 2024-03-28 10:53 | Outpatient (CLI) | payer MEDICARE, SELFPAY ==
--- NOTE | 2024-03-28 11:01 | RAD_ITS ---
STUDY: X-RAY CHEST REASON FOR EXAM: Female, 78 years old. Pleural effusion. TECHNIQUE: Frontal and lateral views of the chest. COMPARISON: February 07, 2024 FINDINGS: Mild hyperinflation with clearing of the right pleural effusion. Linear scarring in the right upper lobe unchanged. Stable cardiomegaly. Normal mediastinum and ester. Normal visualized pulmonary arteries. Normal visualized aortic arch and descending thoracic aorta. Thoracic osteopenia with diffuse spondylosis. Left total shoulder arthroplasty unchanged. No abnormality of the visualized soft tissue structures of the upper abdomen. RAD/Chest PA and Lateral IMPRESSION: Cardiomegaly with hyperinflation. Resolution of right pleural effusion. No acute finding. Electronically Signed: Reddy Branch MD at 12:48 EDT ,
--- NOTE | 2024-03-28 11:18 | RAD_ITS ---
STUDY: X-RAY CHEST REASON FOR EXAM: Female, 78 years old. Pleural effusion. TECHNIQUE: Bilateral decubitus views of the chest. COMPARISON: Chest dated today and February 18, 2024. FINDINGS: Bilateral decubitus chests show a very small sliver of right pleural effusion extending into the horizontal fissure. Stable hyperinflation and no effusion of the left lung No abnormality of the visualized soft tissue structures of the upper abdomen. RAD/Special CXR (Obl/Decub/A/L) IMPRESSION: Small layering right pleural effusion. Mild hyperinflation and no acute finding. Electronically Signed: Reddy Branch MD at 12:53 EDT ,
== END 2024-03-28 23:59 | disposition home or self-care (01) ==
PROVIDERS: PCP Internal Medicine; Referring Provider Internal Medicine Pulmonary Disease; Visit Provider Internal Medicine Pulmonary Disease
DX: R06.02 Shortness of breath (principal); J91.8 Pleural effusion in other conditions classified elsewhere; R05.9 Cough, unspecified
CPT/HCPCS: 71046

== ENCOUNTER → 2024-06-06 | Outpatient (CLI) | payer MEDICARE, SELFPAY ==
[2024-06-06 14:31] LABS: Mucous, Urine 0 SEEN /hpf (<or=2+)
[2024-06-06 15:22] LABS: Color, Urine Yellow (Yellow); Glucose, Dipstick Normal (Normal); Ketone-Dipstick 5 mg/dl (Negative); Leukocyte Esterase-Dipstick 100 /ul (Negative); Nitrite-Dipstick Negative (Negative); Occult Blood-Urine Negative /ul (Negative); Protein-Dipstick 15 mg/dl (Negative); Urine Bilirubin Dipstick Negative (Negative); Urine Clarity Clear (Clear); Urine Urobilinogen Normal (Normal); Urine pH 6.5 (5.0 - 8.0)
[2024-06-06 15:33] LABS: Bacteria 1+ /hpf (None Seen); Red Blood Cells-Urine 0-5 SEEN /hpf (0-5)
[2024-06-06 15:35] LABS: White Blood Cells 0-5 SEEN /hpf (0-5)
[2024-06-06 15:36] LABS: Transitional Epithelial - Ur 0 SEEN /hpf (0-5)
[2024-06-06 15:37] LABS: Squamous Epithelial Cells - UA 0-5 SEEN /hpf (5-10)
== END | disposition home or self-care (01) ==
LOC: LABSPEC 14:30
PROVIDERS: PCP Internal Medicine; Visit Provider Nurse Practitioner
DX: R82.998 Other abnormal findings in urine (principal); Z90.5 Acquired absence of kidney
CPT/HCPCS: 81001; 87086; 87088

== ENCOUNTER → 2024-06-09 | Outpatient (CLI) | payer MEDICARE, SELFPAY ==
[2024-06-09 17:01] LABS: Cholesterol 184 mg/dL (200); High Density Lipoprotein 78 mg/dL; Triglycerides 92 mg/dL; Very Low Density Lipoprotein 18 mg/dL (5-40)
== END | disposition home or self-care (01) ==
LOC: BIMLAB 10:59
PROVIDERS: PCP Internal Medicine; Referring Provider Internal Medicine; Visit Provider Internal Medicine
DX: E78.49 Other hyperlipidemia (principal)
CPT/HCPCS: 36415; 80061

== ENCOUNTER → 2024-07-20 | Outpatient (CLI) | payer MEDICARE, SELFPAY ==
--- NOTE | 2024-07-20 11:40 | RAD_ITS ---
STUDY: X-RAY - RIGHT SHOULDER REASON FOR EXAM: Female, 78 years old. Right shoulder pain. TECHNIQUE: 5 views of the right shoulder. COMPARISON: None. FINDINGS: Normal glenohumeral articulation. There is mild acromioclavicular arthrosis. Normal acromion. Normal humeral head and visualized proximal humerus. The soft tissue structures are unremarkable. There is no demonstrated fracture. Normal visualized pulmonary apex. RAD/Shoulder min 2 Views IMPRESSION: Mild acromioclavicular arthrosis. No demonstrated fracture. Electronically Signed: James Bowen MD at 15:26 EDT ,
[2024-07-20 15:27] LABS: Hematocrit 36.6 % (37-47); Hemoglobin 11.9 g/dL (12.0-15.0); Mean Corp Hgb Conc 32.5 g/dL (32-36); Mean Corpuscular Hgb 30.5 pg (27.0-32.0); Mean Corpuscular Volume 93.8 fL (81-99); Mean Platelet Vol. 10.6 fl (6.2-12.0); Platelet Count 282 K/mm3 (150-450); RBC Distribution Width CV 12.4 % (11.6-14.6); RBC Distribution Width SD 42.3 fl (35.1-43.9)
[2024-07-20 16:03] LABS: Albumin, Serum 3.6 g/dL (3.2-5.0); BUN 14 mg/dL (7-18); BUN/Creat Ratio 14.4 RATIO (10-20); Calcium,Total 9.1 mg/dL (8.5-10.1); Chloride 107 mmol/L (98-107); Creatinine, Serum 0.97 mg/dL (0.55-1.02); EST Glomerular Filtration Rate 59 mL/min (>60); Est Glom Filt Rate - Afr Amer 71 mL/min (>60); Glucose 102 mg/dL (74-106); Phosphorus 2.8 mg/dL (2.5-4.9); Potassium 4.5 mmol/L (3.5-5.1); Sodium Level 142 mmol/L (136-145)
== END | disposition home or self-care (01) ==
PROVIDERS: Internal Medicine Nephrology; PCP Internal Medicine; Referring Provider Nurse Practitioner; Visit Provider Nurse Practitioner
DX: N18.31 Chronic kidney disease, stage 3a (principal); D63.8 Anemia in other chronic diseases classified elsewhere
CPT/HCPCS: 36415; 73030; 80069; 85027

== ENCOUNTER → 2024-10-11 | Outpatient (CLI) | payer MEDICARE, SELFPAY ==
--- NOTE | 2024-10-11 09:48 | US_ITS ---
STUDY: ABDOMINAL ULTRASOUND - RIGHT UPPER QUADRANT; ELASTOGRAPHY REASON FOR VISIT: Female, 79 years old. Fatty infiltration of the liver. TECHNIQUE: Ultrasound evaluation of the right upper quadrant was performed with real-time and static garces-scale imaging. Point quantification shear wave elastography was performed (Double Encore). TECHNICAL QUALITY: Adequate. COMPARISON: Comparison is made with prior study dated December 14, 2023. FINDINGS: Liver: The liver measures 16.3 cm. There is normal echogenicity of the liver. The bile ducts are within normal limits. There is hepatic color flow. The direction of portal flow is hepatopetal. Stable 3.4 cm x 3.8 cm x 3.4 cm septated cyst in the inferior right lobe of the liver. Median liver stiffness measured 12.2 kPa. Gallbladder: Normal distended gallbladder. The gallbladder wall measures 1.8 mm. There is a negative sonographic Cortez''s sign. There is no pericholecystic fluid. There are no gallstones. There is a 5 mm x 6 mm x 4 mm gallbladder polyp adherent to the gallbladder wall. Common Bile Duct (C.B.D.): The common bile duct measures 1.8 mm. Pancreas: There is increased echogenicity of the pancreas. There is no demonstrated pancreatic mass or cyst. Right Kidney: The patient is status post right nephrectomy. US/ABD Limited w/ Elastography IMPRESSION: 1. Liver stiffness measures 12.2 kPa compatible with F2-F3 (Mild to moderate liver fibrosis) Metavir score. Electronically Signed: Yousif Hathaway MD at 14:22 EST ,
--- NOTE | 2024-10-11 16:37 | RAD_ITS ---
INDICATION: PHYSICIAN ORDER EXAMINATION/TECHNIQUE: X-RAY - XR Chest Min 4 Views COMPARISON: Prior study dated: 03/28/2024 FINDINGS: LINES/DEVICES: None. LUNGS: No consolidation, edema or effusion. No pneumothorax. MEDIASTINUM AND CARDIOVASCULAR STRUCTURES: Cardiac silhouette not enlarged. Central airways and mediastinal contour are unremarkable. BONES AND SOFT TISSUES: Left shoulder arthroplasty is again seen. RAD/Chest Min 4 Views IMPRESSION: No radiographic evidence of acute cardiopulmonary disease. Electronically Signed: Jay Jones MD at 18:00 EST ,
== END | disposition home or self-care (01) ==
PROVIDERS: PCP Internal Medicine; Referring Provider Internal Medicine Gastroenterology; Visit Provider Internal Medicine Pulmonary Disease
DX: K74.00 Hepatic fibrosis, unspecified (principal); J91.8 Pleural effusion in other conditions classified elsewhere; Z90.5 Acquired absence of kidney
CPT/HCPCS: 71048; 76705; 76981

== ENCOUNTER 2024-10-19 12:00 | Outpatient (RCR) | payer MEDICARE, SELFPAY ==
--- NOTE | 2024-09-18 13:04 | HP.PTEVAL ---
Patient's Visit Information Visit Information Visit Information: ELSIE BRIGGS is a 78 year old F referred to Physical Therapy by Dr. Monique Shetty MD with a diagnosis of R shoulder and LBP. Date of Evaluation: 09/18/24 Physical Therapist: Phani Coleman, PT, ATC Visit Plan Frequency: 2x /Week Duration: 4-6 Weeks Plan: Evaluate LBP next visit. R shoulder rot cuff strengthening, scap stab ex's, and HEP Subjective Subjective: Pt notes she has had chronic R shoulder pain for a while. However, 3 weeks ago she had to put things away in her closet. This required repetitive overhead lifting which has resulted in significant R shoulder pain. Pt reports she also has sciatica and pain that radiates down her R LE. Pt is R hand dominant. Pt reports she had L TSA performed 5 years ago after falling and fracturing her L shoulder. Pt denies R UE tingling or numbness at this time. Pt reports sleep difficulty at this time secondary to R shoulder pain. 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 Pt reports her greatest restriction at this time is reaching overhead or lifting something with R UE. 0/10 pain in R shoulder while sitting here at rest, 7/10 pain when pain is at its worst (sometimes when her pain wakes her up at night) Pain R shoulder: Pain Intensity (Out of 10): 0 Pain Intensity Range: 7 Objective Objective: Neuro: B UE sensation is WNL to light touch. B bicipital reflex= 2/3 Palpation: Pt is very sore along the distribution if the supraspinatus tendon of the L shoulder ROM: L shoulder flex= 135, abd= 115, ER= 0, IR= moderately limited; R shoulder flex= 125, abd= 88, ER= 40, IR= severely limited MMT: L shoulder flex= 6, abd= 10, ER= 6, IR= 10; R shoulder flex= 4, abd= 9, ER= 9, IR= 9 #F Special tests: Pos empty can test Balance/Special Test Scores Quick DASH Score: 38.6350 Goals Goal 1:: Decrease R shoulder pain x 50% to aid with sleep Goal Time Frame: 4-6 Weeks Goal 2:: Increase R shoulder flex and abd ROM x 20 degrees to aid with overhead activity Goal Time Frame: 4-6 Weeks Goal 3:: Increase R shoulder strength x 5 #F in all planes to aid with IADL's Goal Time Frame: 4-6 Weeks Goal 4:: I with HEP Goal Time Frame: 4-6 Weeks Rehabilitation Potential Physical Therapy Diagnosis: Pt has R shoulder pain, weakness, and limited ROM secondary to R shoulder rotator cuff insufficiency Rehabilitation Potential: Good Anticipated Interventions Patient/Client Instruction: Educate patient on: Condition and Plan of Care For the Purpose of:: To improve self management Therapeutic Exercise to Include: Strength training, Endurance training, Body mechanics, Active ROM and Scapular Strength/Stabilization For the Purpose of:: To decrease pain, To increase ROM and To improve muscle performance and motor function Cryotherapy (ice pack, ice massage): Yes For the Purpose of:: To decrease pain Text: Thank you for the opportunity to evaluate your patient. For Medicare and Medicare HMO plans, please review the plan of care and approve it. It will need to be FAXED BACK to us at [phone] for Medicare purposes. For Medicare only, by signing this I certify the plan of care. Please let me know if there are questions or concerns regarding this plan of care. Physician Signature: Date:
--- NOTE | 2024-10-19 12:41 | HP.PTDCSUM ---
Discharge Summary D/C summary: It has been my pleasure to treat ELSIE BRIGGS referred by Dr. Monique Shetty MD, with the diagnosis of R shoulder and LBP for a total of 10 visit(s). Discharge Date: Please see the following information for a summary of their discharge status. Subjective Subjective: My shoulder is much better. My hips are still really sore. Pain R shoulder: Pain Intensity (Out of 10): 4 LBP: Pain Intensity (Out of 10): 0 Overall Improvement % Improvement: 75 Objective Objective/Function: R shoulder pain is 1/10. Pt feels 75% improvement. LBP is 4/10. Pt feels 10% improvement. R shoulder MMT: flex= 10, abd= 22, ER= 16, IR= 19 #F R shoulder ROM: flex= 145, abd= 105 degrees Pt is I with HEP Goals Goal 1:: Decrease R shoulder pain x 50% to aid with sleep Goal Progress: Goal Met Goal 2:: Increase R shoulder flex and abd ROM x 20 degrees to aid with overhead activity Goal Progress: Goal Met Goal 3:: Increase R shoulder strength x 5 #F in all planes to aid with IADL's Goal Progress: Goal Met Goal 4:: I with HEP Goal Progress: Goal Met Goal 5:: Decrease LBP x 50% to aid with increasing tolerance for ambulqtion Goal Progress: Progressing Plan Plan: Discharge to HEP D/C Information d/c sentence: If there are questions or concerns regarding this patient's physical therapy, please feel free to call me at [phone]. Thank you for the referral of this patient. Sincerely, Phani Coleman, PT, ATC Balance/Gait/Functional tests Balance/Special Test Scores Quick DASH Score: 13.6350 Improvement % Improvement: 75
== END 2024-10-19 19:00 | disposition home or self-care (01) ==
LOC: PT 12:00
PROVIDERS: PCP Internal Medicine; Referring Provider Internal Medicine; Visit Provider Internal Medicine
DX: M25.511 Pain in right shoulder (principal); M54.50 Low back pain, unspecified; M25.551 Pain in right hip; G89.29 Other chronic pain
CPT/HCPCS: 97110; 97161; 97530

== ENCOUNTER → 2024-11-29 | Outpatient (CLI) | payer MEDICARE, SELFPAY | END | disposition home or self-care (01) | LOC: LABSPEC 14:07 | PROVIDERS: PCP Internal Medicine; Referring Provider Internal Medicine; Visit Provider Internal Medicine | DX: J06.9 Acute upper respiratory infection, unspecified (principal) | CPT/HCPCS: 87633 ==

== ENCOUNTER → 2025-02-08 | Outpatient (CLI) | payer MEDICARE, SELFPAY ==
[2025-02-08 10:24] LABS: Bacteria 0 SEEN /hpf (None Seen); Mucous, Urine 0 SEEN /hpf (<or=2+); Red Blood Cells-Urine 0 SEEN /hpf (0-5)
[2025-02-08 11:12] LABS: Color, Urine Yellow (Yellow); Glucose, Dipstick Normal (Normal); Ketone-Dipstick Negative (Negative); Leukocyte Esterase-Dipstick 100 /ul (Negative); Nitrite-Dipstick Negative (Negative); Occult Blood-Urine 10 /ul (Negative); Protein-Dipstick 15 mg/dl (Negative); Specific Gravity, Urine 1.015 (1.002-1.030); Urine Bilirubin Dipstick Negative (Negative); Urine Clarity Clear (Clear); Urine Urobilinogen Normal (Normal)
[2025-02-08 11:18] LABS: Hematocrit 35.8 % (37-47); Hemoglobin 12.2 g/dL (12.0-15.0); Mean Corp Hgb Conc 34.1 g/dL (32-36); Mean Corpuscular Hgb 31.4 pg (27.0-32.0); Mean Platelet Vol. 10.6 fl (6.2-12.0); Platelet Count 237 K/mm3 (150-450); RBC Distribution Width SD 40.3 fl (35.1-43.9); Red Blood Count 3.89 M/mm3 (4.2-5.4); Squamous Epithelial Cells - UA 0-5 SEEN /hpf (5-10); White Blood Cells 0-5 SEEN /hpf (0-5); White Blood Count 5.1 K/mm3 (4.4-11.0)
[2025-02-08 12:13] LABS: Albumin, Serum 4.2 g/dL (3.4-4.8); Anion Gap 11 (5-15); BUN 18 mg/dL (4-19); BUN/Creat Ratio 17.9 RATIO (10-20); Calcium,Total 9.1 mg/dL (7.6-11.0); Carbon Dioxide 25.2 mmol/L (21.0-32.0); Chloride 104 mmol/L (98-108); Creatinine, Serum 0.98 mg/dL (0.70-1.20); EST Glomerular Filtration Rate 59 (>60); Glucose 79 mg/dL (70-99); Phosphorus 2.9 mg/dL (2.7-4.5); Potassium 4.2 mmol/L (3.3-5.1); Sodium Level 140 mmol/L (133-145)
== END | disposition home or self-care (01) ==
LOC: LAB 10:20
PROVIDERS: PCP Internal Medicine; Referring Provider Internal Medicine Nephrology; Visit Provider Internal Medicine Nephrology
DX: N18.31 Chronic kidney disease, stage 3a (principal); D63.8 Anemia in other chronic diseases classified elsewhere
CPT/HCPCS: 36415; 80069; 81001; 85027

== ENCOUNTER → 2025-04-03 | Outpatient (CLI) | payer MEDICARE, SELFPAY ==
--- NOTE | 2025-04-03 07:28 | MRI_ITS ---
PROCEDURE: SPINE LUMBAR (ROUTINE) 04/03/2025 REASON FOR EXAM: PAIN TECHNIQUE: Multiplanar and multisequence images were obtained without IV contrast administration. FINDINGS: There is normal lumbar vertebral body height and alignment with diffuse lumbar disc space narrowing. The conus is unremarkable. There is no compression fracture. At L1-2, there is mild canal narrowing secondary to degenerative annular bulging. At L2-3, facet arthrosis and concentric bulge also results in mild canal narrowing and this finding is also seen at L3-4. At L4-5, more prominent concentric annular bulging results in a [id number] degree of spinal stenosis without foraminal nerve root impingement. At L5-S1 a broad-based annular bulge results in mild canal narrowing and mild inferior foraminal narrowing. MRI/Spine Lumbar (Routine) IMPRESSION: Multilevel mild canal narrowing without focal disc protrusion and without compr ession deformity. Reading [facility]
== END | disposition home or self-care (01) ==
LOC: MRI 07:13 → OPMRI 07:14
PROVIDERS: PCP Internal Medicine; Referring Provider Student in an Organized Health Care Education/Training Program; Visit Provider Student in an Organized Health Care Education/Training Program
DX: M48.062 Spinal stenosis, lumbar region with neurogenic claudication (principal); M51.369 Other intervertebral disc degeneration, lumbar region without mention of lumbar back pain or lower extremity pain
CPT/HCPCS: 72148

== ENCOUNTER → 2025-06-06 | Outpatient (CLI) | payer MEDICARE, SELFPAY ==
[2025-06-06 12:44] LABS: Hematocrit 38.4 % (37-47); Hemoglobin 12.6 g/dL (12.0-15.0); Immature Granulocytes Count 0.010 X10^3/uL (0.0-0.0); Mean Corp Hgb Conc 32.8 g/dL (32-36); Mean Corpuscular Volume 93.7 fL (81-99); Mean Platelet Vol. 11.2 fl (6.2-12.0); NRBC Flagged by Analyzer 0 % (0-5); Platelet Count 263 K/mm3 (150-450); RBC Distribution Width CV 12.5 % (11.6-14.6); RBC Distribution Width SD 42.7 fl (35.1-43.9); Red Blood Count 4.10 M/mm3 (4.2-5.4); White Blood Count 5.6 K/mm3 (4.4-11.0)
[2025-06-06 13:33] LABS: AST(SGOT) 18 U/L (<=31); Alanine Aminotransfer ALT/SGPT 12 U/L (<=34); Albumin, Serum 4.4 g/dL (3.4-4.8); Alkaline Phosphatase 49 U/L (35-104); Anion Gap 11 (5-15); BUN 17 mg/dL (4-19); BUN/Creat Ratio 17.8 RATIO (10-20); Calcium,Total 9.1 mg/dL (7.6-11.0); Carbon Dioxide 25.8 mmol/L (21.0-32.0); Chloride 105 mmol/L (98-108); Cholesterol 187 mg/dL (<=200); Globulin 2.1 g/dL (2.2-4.2); Glucose 89 mg/dL (70-99); Low Density Lipoprotein Calc. 86 mg/dL; Potassium 4.0 mmol/L (3.3-5.1); Triglycerides 127 mg/dL; Very Low Density Lipoprotein 25 mg/dL (5-40); Vitamin D,25 Hydroxy 67.2 ng/mL (30-100); cholesterol:hdl ratio screen 2.47
== END | disposition home or self-care (01) ==
LOC: BIMLAB 10:15
PROVIDERS: PCP Internal Medicine; Visit Provider Internal Medicine
DX: I10 Essential (primary) hypertension (principal); M81.0 Age-related osteoporosis without current pathological fracture; E78.49 Other hyperlipidemia
CPT/HCPCS: 36415; 80053; 80061; 82306; 85025